=== PATIENT | female | born 1955 | race Caucasian/White ===

== ENCOUNTER 2022-02-15 14:02 | Outpatient (CLI) | payer MEDICARE, BC, SELFPAY ==
[2022-02-15 23:02] LABS: SARS PCR* Negative SARS-CoV-2 (Negative)
== END 2022-02-15 14:03 | disposition home or self-care (01) ==
LOC: FBOREF 14:03
PROVIDERS: PCP Family Medicine; Visit Provider Family Medicine
DX: Z20.822 Contact with and (suspected) exposure to COVID-19 (principal)
CPT/HCPCS: 87635

== ENCOUNTER 2022-02-18 14:05 | Emergency (ER) | payer MEDICARE, BC, SELFPAY ==
[2022-02-18 14:10] VITALS: BP 126/53; PULSE 94; RESP 20; TEMP 36.6; O2SAT 97; BMI 19.4
[2022-02-18 14:30] VITALS: BP 135/76; PULSE 79; RESP 12; O2SAT 100
--- OUTSIDE RECORDS SUMMARY | 2022-02-18 14:48 | XMS_ITS | Clinical Summary ---
:1955 Author Organization [employer] [place] [address] Care Team Providers Name Role Phone Theresa Vázquez PhD, Unavailable [phone] Abhinav Miranda MD Unavailable [facility], [facility] Unavailable Rambo Cordova MD Unavailable Abhinav Miranda MD Unavailable Dalton Esqueda MD Primary Care Provider [phone] Allergies Active Allergy Reactions Severity Noted Date Comments Amoxicillin-Pot Clavulanate GI Upset 06/09/2006 amox ok Diltiazem Hcl Edema 05/25/2017 Duloxetine Diaphoresis, Mental 08/25/2016 Status Change, Dizziness Venlafaxine Analogues Diarrhea 12/25/2010 Erythromycin GI Upset 06/01/2006 Fentanyl Anaphylaxis, High 07/24/2018 Bradycardia, Respiratory Arrest Fluconazole Vomiting 10/15/2020 Severe - every 2 hours Gabapentin Confusion 04/13/2019 Hydrochlorothiazide Lupus 06/10/2016 Erythematosus, Rash Hydralazine Lupus High 03/06/2017 Erythematosus, Anaphylaxis Infliximab Rash High 09/28/2019 Also had some l ip swelling and fa ce swelling Labetalol *Unknown 11/14/2021 pt voiced denis rn that she has sams d adverse reactio ns previously Hydroxychloroquine Anxiety 08/23/2011 Eimjuuw-Jeq-Qwq Reductase Myalgia 04/01/2015 Inhibitors Sulfasalazine Rash 05/17/2019 Tetracycline Vomiting, GI Upset 07/11/2006 Medications Medication Sig Dispensed Refills Start End Date Status Date aspirin enteric Take 1 tablet by 0 Active coated 81 mg tablet mouth every 24 2 hours. pregabalin (LYRICA) Take 100 mg by 0 Active 100 mg capsule mouth 2 times 1 daily. levothyroxine TAKE 1 TABLET BY 90 Tablet 1 Active (SYNTHROID) 25 mcg MOUTH DAILY 2 tabletIndications: BEFORE BREAKFAST Hypothyroidism (acquired) ezetimibe (ZETIA) Take 1 Tablet 90 Tablet 3 Active 10 mg (10 mg) by mouth 2 tabletIndications: once daily. Hyperlipidemia, unspecified hyperlipidemia type meloxicam 15 mg TAKE 1 TABLET(15 90 Tablet 0 Active tabletIndications: MG) BY MOUTH 2 Sjogren's syndrome, EVERY DAY with unspecified organ involvement (HC) multivitamin (MVI) Take 1 Tablet by 0 Active tablet mouth once 2 daily. pilocarpine Take 1 Tablet (5 270 Tablet 0 Active (SALAGEN) 5 mg mg) by mouth 3 2 tabletIndications: times daily. Sjogren's syndrome, with unspecified organ involvement (HC) predniSONE Take 10 mg by 0 Activ e (DELTASONE) 10 mg mouth once daily 2 tablet with a meal. lisinopriL Take 2 Tablets 30 Tablet 0 Acti ve (PRINIVIL; ZESTRIL) (40 mg) by mouth 2 20 mg once daily. tabletIndications: Essential hypertension with goal blood pressure less than 140/90 alirocumab Inject 75 mg 6 mL 1 Active (Praluent Pen) 75 subcutaneous 2 mg/mL every 2 weeks. pnijIndications: Hyperlipidemia, unspecified hyperlipidemia type medication order Seeking Health 0 Active composerIndications MVI one daily, 2 : Sjogren's Mg Oxide 400 mg syndrome, with three times a unspecified organ day, HCL 2 per involvement (HC), meal, Super-C Lupus (HC), complex daily, Connective tissue Liquid IV one disease (HC) daily, [employer] digestive enzymes one with meals, Quercitin 500 mg twice a day medication order naltrexone 4.5 100 Capsule 0 Active composerIndications mg caps, one 2 : Sjogren's twice a day as syndrome, with directed unspecified organ involvement (HC) medication order naltrexone 2.25 100 Capsule 0 Active composerIndications mg cap, one cap 2 : Other chronic daily in pain addition to the 4.5 mg cap, increasing as tolerated to two caps daily omeprazole TAKE ONE CAPSULE 90 Capsule 0 A ctive (PRILOSEC) 20 mg BY MOUTH BEFORE 2 Delayed-Release A MEAL. capsuleIndications: PUD (peptic ulcer disease) omeprazole TAKE 1 CAPSULE 90 Capsule 1 02/12/20 Dis continued (PRILOSEC) 20 mg BY MOUTH BEFORE 2 22 Delayed-Release A MEAL capsuleIndications: PUD (peptic ulcer disease) fluconazole Take 1 Tablet 14 Tablet 0 01/26/20 Expi red (DIFLUCAN) 200 mg (200 mg) by 2 22 tabletIndications: mouth once daily Fungal rash of for 14 days. torso Active Problems Problem Noted Date Dizziness 11/15/2021 Elevated troponin 11/15/2021 Brain aneurysm 11/15/2021 Protein-calorie malnutrition 06/25/2021 Tubular adenoma 10/02/2020 Overview: Repeat colonoscopy in 5 years Bilateral asymmetric sensorineural hearing loss 2020 Other specified postprocedural states 06/22/2019 Medical marijuana use 07/24/2018 Overview: using oils-both medical marijuana and CB D Adverse effect of narcotic 07/24/2018 Overview: see hospitalization 02/2017 Fentanyl Age-related osteoporosis without current pathological fracture 03/28/2018 Obstructive sleep apnea 03/23/2018 Hypothyroidism 06/30/2017 Stenosis of left carotid artery 03/01/[address] [facility] 12/20/2016 Chronic SI joint pain 12/20/2016 Tinea corporis 11/01/2016 Onychomycosis of toenail 11/01/2016 Sjogren's syndrome 10/04/2016 Brain aneurysm 08/28/2016 Frequent headaches 08/28/2016 Deafness in left ear 11/20/2015 Left-sided tinnitus 11/20/2015 Subacute cutaneous lupus erythematosus 03/31/2015 Fibromyalgia 03/31/2015 Midline low back pain with sciatica 03/31/2015 Undifferentiated connective tissue disease 03/09/2015 Generalized anxiety disorder 06/20/2014 Hypertension 08/23/2011 Carotid stenosis, right 08/17/2011 Overview: 08/26/11: Right carotid endarterectomy JUJU positive 07/21/2011 Overview: followed by rheumatology, plaquenil Adjustment disorder with depressed mood 04/09/2007 Other and unspecified hyperlipidemia 07/11/2006 Overview: does not tolerate statins: referral to c ardiology Tobacco use disorder 07/11/2006 Hypertensive urgency Resolved Problems Problem Noted Date Resolved Date Hypothyroid 03/01/2017 07/03/2017 Hypertension 09/08/2016 07/03/2017 Sensorineural hearing loss of right ear 11/20/2015 07/02/2020 Lupus 03/31/2015 04/01/2015 Anxiety state, unspecified 09/27/2013 07/03/2017 Numbness and tingling 07/28/2011 03/26/2014 Sensorineural hearing loss, unspecified 03/24/2007 11/20/2015 Depressive disorder, not elsewhere classified 07/11/2006 08/29/2013 Disorders of bursae and tendons in shoulder region, 07/12/19 07 03/26/2014 unspecified Symptomatic menopausal or female climacteric states 07/12/19 07 03/26/2014 Post-op pain 04/15/2017 Encounters Date Type Specialty Care Team Description 02/16/2022 Telemedicine Carlo Ayala Pain MD 02/16/2022 Travel 02/14/2022 Telephone Reside, Sarina Pitts s AuD 02/09/2022 Refill Mauricio Muñoz Refredd Duckworth MD (Omeprazole) 02/03/2022 Telemedicine Theresa Vázquez, Telehe alth; Trmt Plan PhD, LP 02/03/2022 Travel 01/26/[address] Medical Nutrition Therapy; Telehe alth 01/26/2022 Travel 01/21/2022 Hospital Encounter Dalton Esqueda MD Helms, Colleen G, PT Discharge Summary - Vijay Glez, PT - 01/21/2022 1:00 PM CDT [facility] Physical Therapy Outpatient Progress Note Patient Name: Nicolle brush Date of Service: 01/21/2022 Start of Service: 10/07/21 Visit Count: Visit Count: 11 PT MEDICAL/TREATMENT DIAGNOS IS Lumbar radiculopathy Decreased strength, enduranc e, and mobility ICD-10 M54.16 R53.1 Referring MD/Provider: Dalton Esqueda MD Insurance: Medicare DISCHARGE NOTE Start of Service: 10/07/21 End date of service: 2 Therapy Completed: Yes Final Outcome Tool: Tool Com plete: Final outcome tool completed Discharge Education: Patient education was given regarding home exercise program progression, maintenance of current status, and when to follow up with primary care provider. Therapist Assessment Patient reports that low nadege k pain is constant but has decreased somewhat. She has intermittent left foot and leg numbness that will vary depending upon her activity level. She continues to have therapy at [facility] to addres s her radiculopathy. She feels at this time she is ready to discharge from aquatic therapy here and continue with community-based aquatic activities for home programming. Patient has improved her mob ility and her strength with less hand and arm assistance with transfers but still relates an increased difficulty with descending into sitting position from standing with inc reased use of upper extremit y assist. Her 5 times sit to stand has improved to 13 seconds, initially was at 34 seconds. Tolliver balance test shows improvement from initial session at 44/56 to 54/56 today w hich indicates patient remai ns a potential for fall risk but less since her first session. The patient continues to express challenges with standing and walking which varies depending upon her prior activity level and her current pain level. She has progressed with her goals that were established with her assistance but has not fully met these at this time. She feels that she is appropriate to continue working on these goals with community-based aquatic activities. SUBJECTIVE SUBJECTIVE Patient Symptoms : Same Change in Functional Status: No Comments : Continues to have intermittent left foot and leg numbness with prolong standing and walking. It occurred this morning while shopping and is still present during therapy. SHe feesl she is read y for community based aquati c activities for home program [facility] Acute Pain Intensity (0-10): 3 Location: Rib;Back;Left;Lowe r;Leg Quality: Ache;Pain;Numbness Compliance with home exercis e program: Yes OBJECTIVE OUTCOME MEASURES (last 48 ho urs) Outcome Measures Row Name 01/21/22 1319 PT FOTO GROUP PT Initial FOTO FS 43 PT Predicted FOTO FS Change 12 PT Predicted FOTO FS Goal 5 5 PT Current FOTO FS 50 FOTO DOCUMENTATION 1 FOTO S core INTERVENTION Today's Interventions Aquatic therapy: Patient ind ependent in and out of pool on steps, therapist on deck to direct exercises and cues for exercise performance with isometric abdominal and hip region. ?? Standing exercises: Standing in the middle of the pool with arms moving as needed to assist with upright stability but did not hold onto railing. HS curl 20 reps bilaterally alternating sides Hip abduction SLR 20 reps bi laterally alternating sides ?? Step to bottom step with opp osite UE flexion x 20 reps without handhold assistance ?? UE exercises with hand-held blue paddles: level 2, x 20 reps each motion. In the middle of the pool. Shoulder horizontal abd/add Shoulder Flex/ext Shoulder abd/add ? Side step with hand-held pad dles level 2, 5 laps without loss of balance ?? Step ups to bottom step x 10 bilateral without hand hold, with upper extremity swing ? decorating equipment setter the middle of pool with wide base of support with shoulder push downs with 1 small bar garay, 20 repetitions ?? Walking with jets on x 2 min utes. Having increased leg numbness so patient asked to stop. ? Stretches Calf stretch at wall, 2 x 30 seconds each side Back extension stretch with hands on railing for balance?? Mid back stretch attempted w hile holding onto railing and stepping back however noted left calf cramp Home Exercise Program: hip a bduction SLR standing. Heel cord stretch, seated hamstring stretch, sit to stand, heel raise, toe raise; 11/10-offered alteration of standing exercises including hip flexion m arch, heel and toe raises to be done one day, alternating days to try hip abduction, hip extension SLR and knee flexion/HS curl GOALS Patient goal: to stand and walk for 30-45 minutes at a time to allow me to move safely for vacation in November Goal Status Comments: Alden mora notes her ability to stand and walk are inconsistent due to intermittent leg numbness and continued back pain. Goal not met. Patient will demonstrate: in dependence with progressive HEP in order to: self manage symptoms in (weeks): 8 weeks Goal Status: Met Goal Status Comments: Approp riate to continue with home exercise program alterations Patient will demonstrate: im proved LE strength with hip extension and abduction 4/5 or better in order to: provide hip and trunk stability to assist with standing in one position to wash dishes or talk with others in community up to 20-30 minutes in (weeks): 6 weeks Goal Status: Met Goal Status Comments: Note 5 times sit to stand test has improved since last week's test At 13.28 seconds today compared to 19 seconds last week Patient will demonstrate: im proved balance score with Tolliver balance test from 44/56 to 50/56 or better in order to: decrease falls and injury risk in (weeks): 8 weeks Goal Status: Met Goal Status Comments: Met go al with Tolliver balance test 54/56 improved by 10 points since initial evaluation. PLAN Plan for next session: Disch arge at this session Frequency (number of times p er week): 2 Duration (entire episode of care in weeks): 24 Planned Interventions: Thera peutic exercise (25996);Therapeutic activity (75141);Neuromuscular re-education (58953);Self-care (91297);PT Aquatic (66277);Hot/Cold pack (17590) 01/21/2022 Travel 01/14/2022 Orders Only Lab, [facility] 01/14/2022 Telephone Rosa Elena Cassidy PT Late C greg Appointment 01/14/2022 Travel 01/13/2022 Telemedicine Theresa Vázquez Telehe alth PhD, LP 01/13/2022 Travel 01/12/2022 Hospital Encounter Gera Esqueda MD Oswald, Rebecca L, PT 01/11/2022 Telemedicine Carlo Ayala MD Fati gue; Pain 01/11/2022 Travel 01/07/2022 Hospital Encounter Gera Esqueda MD Oswald, Rebecca L, PT 01/07/2022 Travel 01/05/2022 Hospital Encounter Gera Esqueda MD Oswald, Rebecca L, PT 01/05/2022 Travel 12/29/[address] Medical Nutrition Therapy; Telehealth 12/29/2021 Travel 12/15/2021 Hospital Encounter Gera Esqueda MD Helms, Colleen G, PT 12/15/2021 Travel 12/08/2021 Orders Only Lab, [facility] 12/08/2021 Travel 12/07/2021 Telemedicine Carlo Ayala MD 12/07/2021 Travel 12/03/2021 Telephone Yu Bradley, MORRIS Results 12/02/2021 Telemedicine Theresa Vázquez Telehe alth PhD, LP 12/02/2021 Travel 12/01/2021 Orders Only Yu Bradley, BEVERAGE SPECIALIST <No scan s attached> 11/24/[address] Medical Nutrition Therapy; Telehealth 11/24/2021 Travel from Last 3 Months Immunizations Name Administration Dates Next Due Influenza A (H1N1), Inactivated (Age 1103/17/2009 >=3 Years) Influenza, IIV3 (Age >=3 years) 03/21/2013, 03/13/2012, 07/2010, 04/14/2010, 02/06/2009 Influenza, IIV4 01/17/2017, 03/03/2016, 01/15/2015, 03/26/2014 Pneumococcal Poly,23-Valent 04/06/2002 (Pneumovax) Td (Age >=7 Years) 04/06/2002 Tdap 08/23/2011 Family History Medical History Relation Name Comments Thyroid Disease Daughter 2 Diabetes Daughter 3 type 1 Arthritis Father rheumatoid arthr itis. Cancer-prostate Father Diabetes Father type 2 Other Maternal Aunt Lupus Hypertension Mother Osteoporosis Mother Stroke Mother Cancer-breast Paternal Grandmother Osteoporosis Paternal Grandmother Cancer-breast Sister Relation Name Status Comments Brother Alive Daughter 1 Daughter 2 Daughter 3 Father Grandchild Alive granddaughter Maternal Aunt Maternal Grandfather Maternal Grandmother Mother Paternal Grandfather Paternal Grandmother Sister Alive Social History Tobacco Use Types Packs/Day Years Used Date Current Every Day Smoker Cigarettes 0.25 30 04/1986 - 02/11/2020 Smokeless Tobacco: Never Used Tobacco Cessation: Counseling Given: Yes Alcohol Use Standard Drinks/Week Comments No 0 (1 standard drink = 0.6 oz pure alcoho l) quit for 20 years Alcohol Habits Answer Date Recorded How often do you have a drink containing alcohol? Not asked How many drinks containing alcohol do you have on a Not aske d typical day when you are drinking? How often do you have six or more drinks on one Not asked occasion? Comment: quit for 20 years 09/08/2016 Sex Assigned at Date Recorded Not on file COVID-19 Exposure Response Date Recorded In the last 10 days, have you been in contact with No / Unsu re 02/16/2022 2:19 PM CDT someone who was confirmed or suspected to have Coronavirus/COVID-19? Obstetrics History Para Term AB IAB SAB Ectopic Multiple Living Live Births 1 1 1 Date Outcome GA Total Labor/2nd/3rd Weight Sex Delivery Anes PTL Brigitte A 1 A5 Name Clin Labor Para Last Filed Vital Signs Vital Sign Reading Time Taken Comments Blood Pressure 179/77 11/15/2021 7:45 AM CDT Pulse 58 11/15/2021 7:45 AM CDT Temperature 37 ??C (98.6 ??F) 11/15/2021 6:13 AM CDT Respiratory Rate 18 11/15/2021 6:13 AM CDT Oxygen Saturation 96% 11/15/2021 7:45 AM CDT Inhaled Oxygen Concentration - - Weight 56.5 kg (124 lb 9.6 oz) 11/14/2021 10:16 PM CDT Height 165.1 cm (5' 5) 11/14/2021 4:20 PM CDT Body Mass Index 20.73 11/14/2021 4:20 PM CDT Plan of Treatment Upcoming Encounters Date Type Specialty Care Team Description 02/25/2022 Telemedicine Theresa Vázquez, PhD, LP [address] [facility] [place], [place] [phone] (Wo rk) 03/02/[address] [place] [address] [place] [phone] (Wo rk) 03/10/2022 Appointment 03/24/2022 Telemedicine Carlo Ayala MD [address] [place], [place] [phone] (Wo rk) 04/08/[address] [place] [address] [place] [phone] (Wo rk) 04/12/2022 Telemedicine Carlo Ayala MD [address] [place], [place] [phone] (Wo rk) Health Maintenance Due Date Last Done Comments COVID-19 vaccine series (#1) 1955 Pneumococcal series for age 65+ (2 04/06/2003 04/06/2002 - PCV) Zoster (shingles) series for age 1103/17/2004 50+ (1 of 2) Medicare Wellness for age 65+ 2019 Mammogram for age 45-75 03/07/2020 03/07/2019, 02/24/2018, 04/12/2016, Additional history exists Depression screening for age 12+ 01/10/2021 01/11/2020, , 01/08/2020, Additional history exists Tetanus booster 08/22/2021 08/23/2011, 04/06/2002 Influenza for age 65+ 12/24/2021 01/17/2017, 03/03/2016, 01/15/2015, Additional history exists BMI (ht and wt on same day) for 06/10/2022 06/10/2021, 04/25, age 18+ 04/28/2021, Additional history exists Colonoscopy through age 75 10/02/2025 10/02/2020, 2, 04/05/2012, Additional history exists Lipids for age 45-75 01/14/2027 01/14/2022, 06/15/2021, 02/22/2020, Additional history exists Tdap Completed 08/23/2011 DEXA/DXA scan for age 65+ Completed 02/22/2020, 03/20/2018 , 04/07/2007 Hepatitis C screening for age Completed 04/28/2021, 2014 18-79 Medical Devices Implanted Type Area Tours Hostess Device Shelf Model / Identifier Expiration Serial / Date Lot Michael 7mm10 Loops - [id number] Right: [employer] [id number] / Implanted: Qty: 4 on 04/12/[address] [facility] Shoulder / Patch Vasc 0.8x8cm Biological Peripatch - [id number] Right: [employer]ait[employer] 08/25/2013 [id number]# / Implanted: Qty: 1 on 08/26/2011 by Brain Menendez MD at [facility] Carotid [employer] / Artery [id number] Graft Vasc 0.3x3in Hemashield Stra Fabric Knitted Dbl - [id number] Left: [employer] 06/22/2021 [id number] / Implanted: Qty: 1 on 03/01/2017 by Brain Quiroga MD at [facility] Carotid / Artery [id number] Procedures Procedure Name Priority Date/Time Associated Diagnosis Comme nts LIPID PANEL W REFLEX Routine 01/14/2022 7:58 AM Pure R esults for this MEASURED LDL CDT hypercholesterol emia procedure are in Dyslipidemia the results Statin intolerance section. OSMOLALITY,URINE Routine 12/08/2021 12:36 Dehydration Results for this PM CDT procedure are i n the results section. CBC WITH AUTO Routine 12/08/2021 12:28 Anemia, unspecified Res ults for this DIFFERENTIAL PM CDT type procedure are i n the results section. BASIC METABOLIC PANEL Routine 12/08/2021 12:28 Dehydration Re sults for this PM CDT procedure are i n the results section. VITAMIN B12 Routine 12/08/2021 12:28 Anemia, unspecified Resu lts for this PM CDT type procedure are i n the results section. FERRITIN Routine 12/08/2021 12:28 Anemia, unspecified Resu lts for this PM CDT type procedure are i n the results section. IRON PLUS IRON Routine 12/08/2021 12:28 Anemia, unspecified Re sults for this BINDING CAP PM CDT type procedure are i n the results section. CBC WITH AUTO Routine 12/08/2021 12:28 Anemia, unspecified Res ults for this DIFFERENTIAL PM CDT type procedure are i n the results section. OSMOLALITY Routine 12/08/2021 12:28 Dehydration Results for this PM CDT procedure are i n the results section. from Last 3 Months Results LIPID PANEL W REFLEX MEASURED LDL (01/14/2022 7:58 AM CDT) [facility] health gist Method Time Signature CHOLESTEROL,TOTAL 159 100 - 199 01/14/2022 [place] mg/dL 9:36 AM [facility] TRIGLYCERIDES 130 <150 01/14/2022 [place] mg/dL 9:36 AM [facility] HDL CHOLESTEROL 75 >40 mg/dL 01/14[facility]20[facility] 9:36 AM [facility] NON-HDL 84 <145 01/14/2022 [facility] CHOLESTEROL mg/dl 9:36 AM [facility] CHOL/HDL RATIO 2.12 <4.50 01/14/2022 [facility] 9:36 AM [facility] LDL CHOLESTEROL 58 <=130 01/14/2022 [place] mg/dL 9:36 AM [facility] VLDL CHOLESTEROL 26 <=30 01/14/2022 [place] mg/dL 9:36 AM [facility] PROVIDER ORDERED FASTING 01/14/2022 [facility] STATUS 9:36 AM [facility] Specimen Anatomical Collection Method / Collection Time Recei bernarda Time (Source) Location / Volume Laterality Blood BLOOD SPECIMEN / Venipuncture / 01/14/2022 7:58 2021 8:18 Unknown Unknown AM CDT AM CDT Yu Bradley BEVERAGE SPECIALIST CHEMISTRY Performing Organization Address City/State/ZIP Code Phon e Number [facility] [address] [place] [address] OSMOLALITY,URINE (12/08/2021 12:36 PM CDT) P athologist Signature OSMOLALITY,URI 354 50 - 1,400 12/08/2021 [place] mOsmol/kg 9:59 PM CDT LABORATORY[facility] Specimen Anatomical Collection Method Collection Time Receive d Time (Source) Location / / Volume Laterality Urine URINE SPECIMEN / Non-Blood / 12/08/2021 12:36 022 Unknown Unknown PM CDT 12:36 PM CDT Carlo Ayala MD URINE Performing Organization Address City/State/ZIP Code Phon e Number [facility] [address] [place] [address] LABORATORY-CENTRAL 1999 LABORATORY (ABNORMAL) CBC WITH AUTO DIFFERENTIAL (12/08/2021 12:28 PM CDT) [facility] Method Time Signature WHITE BLOOD 4.9 4.5 - 12/08/2021 [place] COUNT 11.0 12:51 PM CDT [facility] thou/cu LABORATORY mm RED BLOOD COUNT 2.58 (L) 4.00 - 12/08/2021 [place] 5.20 12:51 PM CDT [facility] mil/cu mm LABORATORY HEMOGLOBIN 9.6 (L) 12.0 - 12/08/2021 [place] 16.0 g/dL 12:51 PM T [facility] HEMATOCRIT 29.0 (L) 33.0 - 12/08/2021 [place] 51.0 % 12:51 PM CDT [facility] MCV 112 (H) 80 - 100 12/08/2021 [place] fL 12:51 PM CDT [facility] MCH 37.2 (H) 26.0 - 12/08/2021 [place] 34.0 pg 12:51 PM CDT [facility] MCHC 33.1 32.0 - 12/08/2021 [place] 36.0 g/dL 12:51 PM CDT [facility] RDW 16.9 (H) 11.5 - 12/08/2021 [place] 15.5 % 12:51 PM CDT [facility] PLATELET COUNT 237 140 - 440 12/08/2021 [place] thou/cu 12:51 PM CDT [facility] mm LABORATORY MPV 10.7 6.5 - 12/08/2021 [place] 11.0 fL 12:51 PM CDT [facility] % NEUT 84.4 % 12/08/2021 [place] 12:51 PM CDT [facility] % LYMPH 7.6 % 12/08/2021 [place] 12:51 PM CDT [facility] % MONO 7.2 % 12/08/2021 [place] 12:51 PM CDT [facility] % EOS 0.4 % 12/08/2021 [facility]51 PM [facility] % BASO 0.4 % 12/08/2021 [place] 12:51 PM T [facility] LABORATORY ABSOLUTE 4.1 1.7 - 7.0 12/08/2021 [place] NEUTROPHILS thou/cu 12:51 PM T [facility] mm LABORATORY ABSOLUTE 0.4 (L) 0.9 - 2.9 12/08/2021 [place] LYMPHOCYTES thou/cu 12:51 PM T [facility] mm LABORATORY ABSOLUTE 0.4 <0.9 12/08/2021 [place] MONOCYTES thou/cu 12:51 PM T [facility] mm LABORATORY ABSOLUTE 0.0 <0.5 12/08/2021 [place] EOSINOPHILS thou/cu 12:51 PM [facility] mm LABORATORY ABSOLUTE 0.0 <0.3 12/08/2021 [place] BASOPHILS thou/cu 12:51 PM T [facility] mm LABORATORY Specimen Anatomical Collection Method / Collection Time Recei bernarda Time (Source) Location / Volume Laterality Blood BLOOD SPECIMEN / Venipuncture / 12/08/2021 12:28 12/08 Unknown Unknown PM CDT 12:31 PM CDT Narrative [facility] - 12:51 PM CDT This procedure was originally ordered at ??[facility] \T\ [facility]. Carlo Ayala MD HEMATOLOGY Performing Organization Address City/State/ZIP Code Phon e Number [facility] [address] [place] [address] (ABNORMAL) IRON PLUS IRON BINDING CAP (12/08/2021 12:28 PM CDT) P athologist Signature IRON 45 25 - 156 12/09/2021 [facility] ug/dL 3:45 AM CDT LABORATORY-[facility] UIBC 255 12/09/2021 [facility] (UNSATURATED) 3:45 AM CDT [facility] IRON BINDING 300 245 - 400 12/09/2021 [facility] CAPACITY ug/dL 3:45 AM CDT LAB[facility]ATORY[facility] IRON,% 15 (L) 20 - 55 % 12/09/2021 [facility] SATURATION 3:45 AM CDT LAB[facility]ATORY[facility] Specimen Anatomical Collection Method / Collection Time Recei bernarda Time (Source) Location / Volume Laterality Blood BLOOD SPECIMEN / Venipuncture / 12/08/2021 12:28 12/08 Unknown Unknown PM CDT 12:31 PM CDT Carlo Ayala MD CHEMISTRY Performing Organization Address City/[facility]/ZIP Code Phon e Number [facility] [address] [place] [id number] LABORATORY-CENTRAL 2000 LABORATORY OSMOLALITY (12/08/2021 12:28 PM CDT) athologist Signature OSMOLALITY 289 275 - 300 12/08/2021 [facility] mOsmol/kg 9:58 PM CDT LABORATORY-CENT RAL LABORATORY Specimen Anatomical Collection Method / Collection Time Recei bernarda Time (Source) Location / Volume Laterality Blood BLOOD SPECIMEN / Venipuncture / 12/08/2021 12:28 12/08 Unknown Unknown PM CDT 12:31 PM CDT Carlo Ayala MD CHEMISTRY Performing Organization Address City/[facility]/ZIP Code Phon e Number [facility] [address] [place] [address] LABORATORY-CENTRAL 2000 LABORATORY FERRITIN (12/08/2021 12:28 PM CDT) athologist Signature FERRITIN 157.3 15.0 - 12/09/2021 [facility] 205.0 ng/mL 4:00 AM CDT LABORATORY-CENTR AL LABORATORY Specimen Anatomical Collection Method / Collection Time Recei bernarda Time (Source) Location / Volume Laterality Blood BLOOD SPECIMEN / Venipuncture / 12/08/2021 12:28 12/08 Unknown Unknown PM CDT 12:31 PM CDT Carlo Ayala MD CHEMISTRY Performing Organization Address City/State/ZIP Code Phon e Number [facility] [address] [place] [address] LABORATORY-CENTRAL 2000 LABORATORY (ABNORMAL) VITAMIN B12 (12/08/2021 12:28 PM CDT) athologist Signature VITAMIN B12 1,293 (H) 180 - 914 12/09/2021 [facility] pg/mL 12:03 PM CDT LABORATORY-[facility] Specimen Anatomical Collection Method / Collection Time Recei bernarda Time (Source) Location / Volume Laterality Blood BLOOD SPECIMEN / Venipuncture / 12/08/2021 12:28 12/08 Unknown Unknown PM CDT 12:31 PM CDT Carlo Ayala MD CHEMISTRY Performing Organization Address City/State/ZIP Code Phon e Number [facility] [address] [place] [address] LABORATORY-CENTRAL 2000 LABORATORY (ABNORMAL) BASIC METABOLIC PANEL (12/08/2021 12:28 PM CDT) P athologist Signature SODIUM 140 135 - 145 12/08/2021 [place] mmol/L 1:05 PM [facility] POTASSIUM 4.4 3.5 - 5.0 12/08/2021 [place] mmol/L 1:05 PM [facility] CHLORIDE 104 98 - 110 12/08/2021 [place] mmol/L 1:05 PM [facility] CO2,TOTAL 26 21 - 31 12/08/2021 [place] mmol/L 1:05 PM [facility] ANION GAP 10 5 - 18 12/08/2021 [place] 1:05 PM [facility] GLUCOSE 93 65 - 100 12/08/2021 [place] mg/dL 1:05 PM [facility] CALCIUM 9.8 8.5 - 10.5 12/08/2021 [place] mg/dL 1:05 PM [facility] BUN 15 8 - 25 12/08/2021 [place] mg/dL 1:05 PM [facility] CREATININE 0.88 0.57 - 12/08/2021 [place] 1.11 mg/dL 1:05 PM [facility] BUN/CREAT RATIO 17 10 - 20 12/08/2021 [place] 1:05 PM [facility] eGFR 72 (L) >90 12/08/2021 [place] mL/min/1.7 1:05 PM [facility] 3m2 LABORATORY Comment: As of 2021, eGFR is calcu lated by the CKD-EPI creatinine equation without race adjustment. eGFR can be inf luenced by muscle mass, exercise, and diet. The reported eGFR is an estimation only and is only applicable if the renal function is stable. Specimen Anatomical Collection Method / Collection Time Recei bernarda Time (Source) Location / Volume Laterality Blood BLOOD SPECIMEN / Venipuncture / 12/08/2021 12:28 12/08 Unknown Unknown PM CDT 12:31 PM CDT Carlo Ayala MD CHEMISTRY Performing Organization Address City/[facility]/ZIP Code Phon e Number [facility] [address] [place] [address] from Last 3 Months Insurance Payer Benefit Plan / Subscriber ID Effective Phone Address T ype Group Dates [employer] [id number] 2013-Prese [address] [place] [address] WC WORKERS [place] [employer] [id number] 2020-Pres [address] [place] [address] WC WORKERS [facility] [id number] 2020-Pres [address] [place] [address] MEDICARE PART MEDICARE PART B [id number] 2019-Pres A TTN: CLAIMS B - HB USE HB ONLY ent [address] [place] [address] MEDICARE PART MEDICARE PART A [id number] 2019-Pres A TTN: CLAIMS A - HB USE HB ONLY ent [address] [place] [address] MEDICARE - PB MEDICARE PB [id number] 2019-Pres ATTN: CLAIMS USE ONLY ONLY ent [address] [employer] OF [id number] 2019-Pres [address] [place] [address] Nicolle Covington Personal/Family Self [address] (Home) [place] [address] Nicolle Covington [employer] Self [address]) [place] [address] Nicolle Covington Comp Self [address] (Home) [place] [address] Nicolle Covington Personal/Family Self [address] (Home) [place] [address] Advance Directives Latest Code Status on File Code Status Date Activated Date Inactivated Comments Full Code 11/14/2021 10:31 PM 11/15/2021 1:58 PM Code Status Discussion: Reviewed Preferences Full Code 05/13/2021 8:14 AM 05/14/2021 2:08 AM Code Status Discussion: Unable to Assess Preferences, Provid er to review later Full Code 10/02/2020 7:58 AM 10/02/2020 12:41 PM Code Status Discussion: Discussed Full Code 03/01/2017 12:04 PM 03/08/2017 3:44 PM Full Code 03/01/2017 5:42 AM 03/01/2017 11:49 AM Care Teams Radiologic Therapist Relationship Specialty Start Date End Date Dalton Esqueda MD PCP - General Family Practice 10/15/201999 [place] [address] Theresa Vázquez, PhD, Psychologist Psychology 06/23/11 Abhinav Miranda MD Dermatology Dermatology 08/07/15 [facility], [facility] 09/14/16 Rambo Cordova MD Rheumatology Rheumatology 04/07/17 [address] [facility] [address] [place] [address] Abhinav Miranda MD Dermatology 07/11/17
--- NOTE | 2022-02-18 15:08 | ED.GENADULT ---
HPI - General Adult General Chief complaint: Weakness Stated complaint: Extreme Fatigue Time Seen by Provider: 02/18/22 14:15 History of Present Illness HPI narrative: This 66-year-old female comes in reporting generalized weakness, productive cough, and generalized rash. She does see a commercial trailer truck driver and called with these matters and was instructed to come here for evaluation. She did see her commercial trailer truck driver 3 times in the past week and each time did receive a steroid dose. She does have lupus and Sjogren syndrome. She states that the rash was generalized and very pruritic. The intensity dissipated some last night. She states that she measured temperatures around 99-100. She does report long-term night sweats. She arrives here with normal vital signs. Related Data Home Medications Medication Instructions Recorded Confirmed CBD Oil sublingual 11/17/21 02/15/22 acetaminophen 325 mg tablet 325 - 650 mg PO Q4-6H PRN 11/17/21 02/15/22 aspirin 81 mg chewable tablet 81 mg PO QDAY 11/17/21 02/15/22 (Aspirin Childrens) ezetimibe 10 mg tablet (Zetia) 10 mg PO QDAY 11/17/21 02/15/22 loratadine 10 mg tablet (Allergy 10 mg PO QDAY 11/17/21 02/15/22 Relief (loratadine)) magnesium oxide 400 mg (241.3 mg 400 mg PO QDAY 11/17/21 02/15/22 magnesium) tablet niacinamide 500 mg tablet (Niacin 500 mg PO QDAY 11/17/21 02/15/22 (niacinamide)) ondansetron HCl 4 mg tablet 4 - 8 mg PO Q6H PRN nausea and 11/17/21 02/15/22 vomiting pilocarpine HCl 5 mg tablet 5 mg PO TID 11/17/21 02/15/22 prednisone 10 mg tablet 10 mg PO QDAY 11/17/21 02/15/22 pregabalin 100 mg capsule 100 mg PO BID 11/17/21 02/15/22 Electrolytes PO 12/09/21 02/15/22 hydrocortisone 2.5 % topical cream tube topical 12/09/21 02/15/22 omeprazole 20 mg capsule,delayed 20 mg PO QDAY 12/09/21 02/15/22 release naltrexone 4.5 mg PO QDAY 12/10/21 02/15/22 alirocumab 75 mg/mL subcutaneous 75 mg subcut 02/15/22 02/15/22 pen injector (Praluent Pen) betamethasone dipropionate 0.05 % ml topical 02/15/22 02/15/22 lotion ketoconazole 2 % shampoo ml topical 02/15/22 02/15/22 mycophenolate mofetil 500 mg tablet 500 mg PO BID 02/15/22 02/15/22 triamcinolone acetonide 0.1 % applic topical 02/15/22 02/15/22 topical cream Previous Rx's Medication Instructions Recorded lisinopril 20 mg tablet 40 mg PO QDAY #90 tabs 11/18/21 levothyroxine 25 mcg tablet 25 mcg PO QDAY #90 tabs 01/06/22 meloxicam 15 mg tablet 15 mg PO QDAY #90 tabs 01/14/22 doxazosin 4 mg tablet 2 mg PO QDAY #30 tabs 01/28/22 levofloxacin 500 mg tablet 500 mg PO DAILY 10 days #10 tabs 02/18/22 metoclopramide HCl 10 mg tablet 10 mg PO Q6H PRN nausea and 02/18/22 (Reglan) vomiting #14 tabs Allergies Allergy/AdvReac Type Severity Reaction Status Date / Time atenolol Allergy Severe Verified 02/18/22 14:24 belimumab Allergy Severe Rash Verified 02/18/22 14:24 fentanyl Allergy Severe Cardiac Verified 02/18/22 14:24 Arrest infliximab [From Remicade] Allergy Severe Anaphylaxis Verified 02/18/22 14:24 alendronate sodium Allergy Mild stomach Verified 02/18/22 14:24 pain amitriptyline Allergy Mild Unknown Verified 02/18/22 14:24 buprenorphine Allergy Mild didn't help Verified 02/18/22 14:24 gabapentin Allergy Mild stomach Verified 02/18/22 14:24 issues amoxicillin Allergy Unknown Unknown Verified 02/18/22 14:24 diltiazem Allergy Unknown Unknown Verified 02/18/22 14:24 duloxetine Allergy Unknown Unknown Verified 02/18/22 14:24 erythromycin base Allergy Unknown Unknown Verified 02/18/22 14:24 hydralazine Allergy Unknown Unknown Verified 02/18/22 14:24 hydrochlorothiazide Allergy Unknown unknown Verified 02/18/22 14:24 hydroxychloroquine Allergy Unknown Unknown Verified 02/18/22 14:24 Ysaimma-GXI-YbA Reductase Allergy Unknown Unknown Verified 02/18/22 14:24 Inhibitor tetracycline Allergy Unknown Unknown Verified 02/18/22 14:24 venlafaxine Allergy Unknown Unknown Verified 02/18/22 14:24 plavix Allergy Intermediate Uncoded 02/15/22 13:55 diltiazem Allergy Mild Uncoded 02/15/22 13:55 wellbutrin Allergy Mild hazy Uncoded 02/15/22 13:55 HMG-CoA reductase inhibitor Allergy Unknown Uncoded 02/15/22 13:55 Review of Systems Status of ROS: Reports: 10 or more systems reviewed and unremarkable except as noted in History and below Narrative: Constitutional: No weight gain or loss. Eyes: No discharge. No vision changes. HENT: No congestion, no sore throat, no ear pain. Cardiovascular: No chest pain, no palpitations. Respiratory: No shortness of breath, no wheezes. She reports a productive cough. Gastrointestinal: No abdominal pain, no vomiting, no diarrhea. Genitourinary: No dysuria, no hematuria. Musculoskeletal: Normal range of motion. Skin: Generalized pruritic rash. Neurological: No dizziness, weakness, sensory change, speech change. Endo/Heme/Allergies: No bruising or bleeding. No polydipsia. Pysch: no suicidality, no anxiety, no insomnia. All other systems reviewed and are negative. [facility] Medical History (Updated 02/18/22 @ 16:56 by Tyson Neil MD) Adjustment disorder with depressed mood (04/09/07) Bilateral carotid artery stenosis Cerebral aneurysm (08/28/16) Deafness in left ear (11/20/15) Fibromyalgia (2012) Generalized anxiety disorder (06/20/14) History of basal cell carcinoma (BCC) History of colonic polyps History of lichen planus Hyperlipidemia Hypertension (08/23/11) Hypothyroidism (06/30/17) Obstructive sleep apnea syndrome (03/23/18) Osteoporosis Peripheral vascular disease Positive antinuclear antibody (07/21/11) Sjogren's syndrome (2012) Surgical History (Updated 11/17/21 @ 14:42 by Marylou Rodgers) History of carotid endarterectomy (2009) History of cataract extraction History of section (1975) History of hysterectomy (1994) History of intravascular stent placement (05/2017) History of repair of right rotator cuff (2006) History of sinus surgery Family History (Updated 11/17/21 @ 14:43 by Marylou Rodgers) Sister Breast cancer Diabetes Mother Stroke Heart disease Father Prostate cancer Diabetes Daughter Diabetes Family/Other Breast cancer Social History (Updated 11/17/21 @ 14:44 by Marylou Rodgers) Narrative: Medical marijuana use- onset 07/24/18 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 HEENT: Normocephalic, atraumatic. Neck: Normal range of motion. Nontender. Supple. Heart: Regular. No murmurs. Normal rate. Intact distal pulses. Lungs: Clear to auscultation. No chest discomfort. No wheezes, rhonchi, or rales. Abdomen: Normal bowel sounds. Nontender. No rebound tenderness. Genitalia: Deferred. Back: No midline tenderness. Normal range of motion. Extremities: Normal range of motion. No injury. Skin: Intact. Generalized pruritic maculopapular rash. There are some excoriations on her upper extremities. Neurologic: No altered sensation. No weakness. Alert and oriented. Psychiatric: No suicidality. No anxiety or depression. No insomnia. Nursing notes and vitals signs are reviewed. Const: Vital Signs, click to edit/add: Vital Signs - 24 hr 02/18/22 14:10 Temperature 97.8 F Pulse Rate [Pulse Oximeter] 94 Respiratory Rate 20 Blood Pressure [Ri ght Upper Arm] 126/53 L Pulse Oximetry 97 Oxygen Delivery Me thod Room Air Course Vital Signs Vital signs: Initial Vital Signs Temperature 97.8 F 02/18/22 14:10 Temperature Source Temporal Artery Scan 02/18/22 14:10 Pulse Rate 94 02/18/22 14:10 Pulse Rhythm 02/18/22 14:10 Respiratory Rate 20 02/18/22 14:10 Blood Pressure 126/53 L 02/18/22 14:10 Blood Pressure Mean 77 02/18/22 14:10 Blood Pressure Position Left Lateral 02/18/22 14:10 Pulse Oximetry 97 02/18/22 14:10 Oxygen Delivery Method 02/18/22 14:10 Vital Signs Temperature 97.8 F 02/18/22 14:10 Pulse Rate 94 02/18/22 14:10 Respiratory Rate 20 02/18/22 14:10 Blood Pressure 126/53 L 02/18/22 14:10 Pulse Oximetry 97 02/18/22 14:10 Oxygen Delivery Method 02/18/22 14:10 Temperature 97.8 F 02/18/22 14:10 Pulse Rate 94 02/18/22 14:10 Respiratory Rate 20 02/18/22 14:10 Blood Pressure 126/53 L 02/18/22 14:10 Pulse Oximetry 97 02/18/22 14:10 Oxygen Delivery Method 02/18/22 14:10 Medical Decision Making MDM Narrative Medical decision making narrative: This patient comes in reporting generalized malaise with generalized rash and productive cough. She does see a neurologist frequently and has lupus and Sjogren's syndrome that is being managed. Lab results today returned with an elevated C reactive protein. Her white count is in normal range. Chest x-ray shows evidence of a pneumonia in the right lower lobe. The patient has normal vital signs. She is okay to return home. Prescription for Levaquin and Zofran is provided. Lab Data Labs: Lab Results 02/18/22 02/18/22 02/18/22 Range/Units 15:17 15:36 15:36 WBC 6.13 (4.50-11.00) K/uL RBC 3.06 L (4.00-5.20) m/uL Hgb 10.5 L (12.0-16.0) gm/dL Hct 31.6 L (33.0-51.0) % MCV 103 H (80-100) fL MCH 34 (26-34) pg MCHC 33 (32-36) gm/dL RDW Coeff of Terrell 14.2 (11.5-15.5) % Plt Count 159 (140-440) K/uL Neut % (Auto) 85.3 H (42.0-72.0) % Lymph % (Auto) 7.2 L (20-44) % [place] % (Auto) 7.0 (0.0-11.0) % Eos % (Auto) 0.0 (0.0-7.0) % Baso % (Auto) 0.0 (0.0-3.0) % Neut # (Auto) 5.20 (1.7-7.0) K/uL Lymph # (Auto) 0.40 L (0.90-2.90) K/uL [place] # (Auto) 0.40 (0.00-0.90) K/UL Eos # (Auto) 0.00 (0.00-0.50) K/uL Baso # (Auto) 0.00 (0.00-0.30) K/uL Abs Immat Gran (auto) 0.03 (0.00-0.30) K/uL ESR (2-20) mm/hr Sodium 131 L (135-149) mmol/L Potassium 4.0 (3.6-5.1) mmol/L Chloride 99 (96-114) mmol/L Carbon Dioxide 25 (20-32) mmol/L BUN 19 (7-30) mg/dL Creatinine 1.1 (0.5-1.5) mg/dL Estimated Creat Clear 42.64 Estimated GFR 55 ml/min Glucose 98 (60-115) mg/dL Calcium 9.5 (8.4-10.6) mg/dL C-Reactive Protein 5.9 H (0.5-1.0) mg/dL SARS-CoV-2 (PCR) Negative SARS-CoV-2 (Negative) Influenza Type A (PCR) Negative PCR FLU A (Negative) Influenza Type B (PCR) Negative PCR FLU B (Negative) 02/18/22 Range/Units 15:36 WBC (4.50-11.00) K/uL RBC (4.00-5.20) m/uL Hgb (12.0-16.0) gm/dL Hct (33.0-51.0) % MCV (80-100) fL MCH (26-34) pg MCHC (32-36) gm/dL RDW Coeff of Terrell (11.5-15.5) % Plt Count (140-440) K/uL Neut % (Auto) (42.0-72.0) % Lymph % (Auto) (20-44) % [place] % (Auto) (0.0-11.0) % Eos % (Auto) (0.0-7.0) % Baso % (Auto) (0.0-3.0) % Neut # (Auto) (1.7-7.0) K/uL Lymph # (Auto) (0.90-2.90) K/uL [place] # (Auto) (0.00-0.90) K/UL Eos # (Auto) (0.00-0.50) K/uL Baso # (Auto) (0.00-0.30) K/uL Abs Immat Gran (auto) (0.00-0.30) K/uL ESR 67 H (2-20) mm/hr Sodium (135-149) mmol/L Potassium (3.6-5.1) mmol/L Chloride (96-114) mmol/L Carbon Dioxide (20-32) mmol/L BUN (7-30) mg/dL Creatinine (0.5-1.5) mg/dL Estimated Creat Clear Estimated GFR ml/min Glucose (60-115) mg/dL Calcium (8.4-10.6) mg/dL C-Reactive Protein (0.5-1.0) mg/dL SARS-CoV-2 (PCR) (Negative) Influenza Type A (PCR) (Negative) Influenza Type B (PCR) (Negative) Imaging Data Chest x-ray: Radiologist's impression: Right lower lobe opacity is suggestive of pneumonia. Discharge Plan Discharge Clinical Impression: Rash, Pneumonia Patient Disposition: Home, Self-Care Condition: Unchanged Additional Instructions: Take medication as prescribed. Follow up with MD or return if worsening. Prescriptions: New levofloxacin 500 mg tablet 500 mg PO DAILY 10 Days Qty: 10 0RF metoclopramide HCl [Reglan] 10 mg tablet 10 mg PO Q6H PRN (Reason: nausea and vomiting) Qty: 14 0RF No Action hydrocortisone 2.5 % cream topical omeprazole 20 mg capsule,delayed release(DR/EC) 20 mg PO QDAY Label Comments: TAKE ONE CAPSULE BY MOUTH BEFORE A MEAL. Electrolytes PO Praluent Pen 75 mg/mL pen injector 75 mg subcut Label Comments: INJECT 75MG SUBCUTANEOUSLY EVERY 2 WEEKS pregabalin 100 mg capsule 100 mg PO BID ondansetron HCl 4 mg tablet 4 - 8 mg PO Q6H PRN (Reason: nausea and vomiting) prednisone 10 mg tablet 10 mg PO QDAY loratadine [Allergy Relief (loratadine)] 10 mg tablet 10 mg PO QDAY magnesium oxide 400 mg (241.3 mg magnesium) tablet 400 mg PO QDAY niacinamide [Niacin (niacinamide)] 500 mg tablet 500 mg PO QDAY CBD Oil sublingual acetaminophen 325 mg tablet 325 - 650 mg PO Q4-6H PRN Rx Instructions: No more than 4000 mg a day aspirin [Aspirin Childrens] 81 mg tablet,chewable 81 mg PO QDAY ezetimibe [Zetia] 10 mg tablet 10 mg PO QDAY pilocarpine HCl 5 mg tablet 5 mg PO TID lisinopril 20 mg tablet 40 mg PO QDAY Qty: 90 3RF naltrexone 4.5 mg PO QDAY Label Comments: 4.5mg tab from compound pharmacy betamethasone dipropionate 0.05 % lotion topical Label Comments: APPLY 1-2X DAILY TO AFFECTED AREA OF THE SCALP FOR FOR 2 WEEKS THEN TAKE A BREAK FOR 2 WEEKS REPEAT NEEDED FOR FLARES ketoconazole 2 % shampoo topical Label Comments: USE ONCE DAILY TO AFFECTED AREA OF THE BODY AND SCALP LATHER AND LET SIT FOR FEW MINS BEFORE RINSING triamcinolone acetonide 0.1 % cream topical Label Comments: APPLY TWICE A DAY TO AFFECTED AREA OF CHEST, NECK AND ARMS. USE FOR 2 WEEKS ON THEN TAKE 2 WEEKS OFF NEEDED mycophenolate mofetil 500 mg tablet 500 mg PO BID Label Comments: TAKE ONE TABLET BY MOUTH TWICE A DAY levothyroxine 25 mcg tablet 25 mcg PO QDAY Qty: 90 1RF meloxicam 15 mg tablet 15 mg PO QDAY Qty: 90 3RF doxazosin 4 mg tablet 2 mg PO QDAY Qty: 30 2RF Follow Up/Referrals: Dalton Esqueda MD [Primary Care Provider] - Stand Alone Forms: [facility] Info Instructions
--- NOTE | 2022-02-18 15:12 | CRLHL7_ITS ---
For Patients: As a result of the Cures Act, medical imaging exams and procedure reports are released immediately into your electronic medical record. You may view this report before your referring provider. If you have questions, please contact your health care provider. INDICATION: Productive cough. TECHNIQUE: Chest 1 views. COMPARISON: None. FINDINGS: Lungs: Ovoid opacity in the right lower lobe. Pleura: No pleural effusion or pneumothorax. Heart and Mediastinum: The cardiomediastinal silhouette is normal. The vessels are unremarkable. Bones: Unremarkable. IMPRESSION: Right lower lobe opacity is suggestive of pneumonia. Dictated by Eugene Tolbert MD @ 02/18/2022 4:09:04 PM (Electronically Signed)
[2022-02-18 15:30] VITALS: BP 143/87; PULSE 77; RESP 14; O2SAT 99
[2022-02-18 15:45] LABS: Hematocrit 31.6 % (33.0-51.0); Hemoglobin* 10.5 gm/dL (12.0-16.0); Immature Granulocytes Abs Auto 0.03 K/uL (0.00-0.30); Lymphocytes Percent Auto 7.2 % (20-44); Mean Corpuscular HGB Conc 33 gm/dL (32-36); Mean Corpuscular Hemoglobin 34 pg (26-34); Mean Corpuscular Volume 103 fL (80-100); Neutrophils Percent Auto 85.3 % (42.0-72.0); Platelet Count* 159 K/uL (140-440); RDW Coefficient of Variation % 14.2 % (11.5-15.5); Red Blood Count 3.06 m/uL (4.00-5.20); White Blood Count* 6.13 K/uL (4.50-11.00)
[2022-02-18 16:03] LABS: Slide Review Reflex No
[2022-02-18 16:04] LABS: PCR FLU A Negative PCR FLU A (Negative); PCR FLU B Negative PCR FLU B (Negative)
[2022-02-18 16:06] LABS: Chloride* 99 mmol/L (96-114); Sodium* 131 mmol/L (135-149)
[2022-02-18 16:06] LABS: SARS PCR* Negative SARS-CoV-2 (Negative)
[2022-02-18 16:09] LABS: Creatinine* 1.1 mg/dL (0.5-1.5); Est. Creatinine Clearance* 42.64; Estimated Glomerular Filt Rate 55 ml/min
[2022-02-18 16:10] LABS: Blood Urea Nitrogen* 19 mg/dL (7-30); Calcium* 9.5 mg/dL (8.4-10.6); Carbon Dioxide* 25 mmol/L (20-32); Glucose* 98 mg/dL (60-115)
[2022-02-18 16:12] LABS: C Reactive Protein* 5.9 mg/dL (0.5-1.0)
[2022-02-18 16:25] VITALS: BP 129/64; PULSE 63; RESP 16; O2SAT 96
[2022-02-18 16:51] LABS: Erythrocyte SedimentationRate* 67 mm/hr (2-20)
[2022-02-18 16:51] LABS: Appearance Urine Slightly Cloudy (Clear); Bilirubin Urine 1+ (Negative); Blood Urine Negative (Negative); Color Urine Yellow (Yellow); Glucose Urine Negative (Negative); Ketones Urine 1+ (Negative); Leukocyte Esterase Urine Negative (Negative); Nitrite Urine Negative (Negative); Protein Urine 1+ (Negative); Urobilinogen Urine 0.2 (0.2-1.0); pH Urine 5.5 (5.0-8.5)
[2022-02-18] MEDS: levoFLOXacin 500 MG TABLET PO (17:01)
[2022-02-18 17:16] LABS: Bacteria Urine Moderate; RBC Urine 0-2 (0-2)
== END 2022-02-18 17:09 | disposition home or self-care (01) ==
PROVIDERS: Emergency Provider Emergency Medicine Emergency Medical Services; PCP Family Medicine
DX: J18.9 Pneumonia, unspecified organism (principal); R21 Rash and other nonspecific skin eruption
CPT/HCPCS: 36415; 71045; 80048; 81001; 85025; 85651; 86140; 87086; 87186; 87631; 99284; 99285; A9270

== ENCOUNTER 2022-03-09 11:47 | Outpatient (CLI) | payer MEDICARE, BC, SELFPAY ==
--- OUTSIDE RECORDS SUMMARY | 2022-03-09 11:50 | XMS_ITS | Clinical Summary ---
:1955 Author Organization [facility] [place] [address] Care Team Providers Name Role Phone Theresa Vázquez PhD, Unavailable [phone] Abhinav Miranda MD Unavailable [facility] Unavailable Rambo Cordova MD Unavailable Abhinav Miranda MD Unavailable Dalton Esqueda MD Primary Care Provider [phone] Allergies Active Allergy Reactions Severity Noted [...] adverse reactio ns previously Hydroxychloroquine Anxiety 08/23/2011 Vznlwbi-Dkj-Shx Reductase Myalgia 04/01/2015 Inhibitors Sulfasalazine Rash 05/17/2019 [...] A MEAL. capsuleIndications: PUD (peptic ulcer disease) magic mouthwash Swish and spit 500 mL 2 Active w/nystatin,benadryl 15-30 ml every 4 2 ,lidocaine,predniso hours as needed. lone & maaloxIndications: Stomatitis neomycin 1 tab qid for 14 56 Tablet 0 Act epi (MYCIFRADIN) 500 mg days 2 tabletIndications: Belching omeprazole TAKE 1 CAPSULE 90 Capsule 1 02/12/20 Dis continued (PRILOSEC) 20 mg BY MOUTH BEFORE 2 22 Delayed-Release A MEAL capsuleIndications: PUD (peptic ulcer disease) Active Problems Problem Noted Date Dizziness 11/15/2021 [...] carotid artery 03/01/2017 Controlled substance agreement with [facility] 12/20/2016 Chronic SI joint pain 12/20/2016 Tinea [...] Encounters Date Type Specialty Care Team Description 03/03/2022 Office Visit Leandra Castorena Ear Problem ( Ear MARK [facility]) 03/03/2022 Patient Outreach Romero Zacarias Palliative Ariel, MORRIS Care (Error/dis regard) 03/03/2022 Travel 03/02/2022 Office Visit Kristian Monge AuD Hearing Problem 03/02/[address] Medical Nutrition Therapy; Telehe alth 03/02/2022 Transcribe Orders Dalton Esqueda MD 03/02/2022 Travel 03/01/2022 Orders Only Staff, Other Clinical <No sc ans attached> 03/01/2022 Orders Only Staff, Other Clinical <No sc ans attached> 03/01/2022 Orders Only Staff, Other Clinical <No sc ans attached> 03/01/2022 Telephone Dalton Esqueda Referral (Sheela Lr MD Evaluation) 03/01/2022 Telephone Kristian Monge, AuD 02/25/2022 Telemedicine Theresa Vázquez Telehe alth PhD, LP 02/25/2022 Travel 02/16/2022 Telemedicine Carlo Ayala Pain MD 02/16/2022 Travel 02/14/2022 Telephone Masha Colon Question s AuD 02/12/2022 Orders Only Staff, Other Clinical <No sc ans attached> 02/12/2022 Orders Only Staff, Other Clinical <No sc ans attached> 02/09/2022 Refill Toni, Mauricio Refill Reque st Pa MD (Omeprazole) 02/03/2022 Telemedicine Theresa Vázquez Telehe alth; Trmt Plan PhD, LP 02/03/2022 Travel 01/26/[address] Medical Nutrition Therapy; Telehe alth 01/26/2022 Travel 01/21/2022 Hospital Encounter Dalton Esqueda MD Helms, Colleen G, PT Discharge Summary - Vijay Glez, PT - 01/21/2022 1:00 PM CDT [facility] Progress Note Patient Name: Nicolle Rosas dtke Date of Service: 01/21/2022 Start of Service: [...] level. She continues to have therapy at [facility] to addres s her radiculopathy. She [...] session at 44/56 to 54/56 today w hic indicates patient remai ns a potential for [...] for home program and will continue with [facility] to address radiculopathy. Acute Pain Intensity (0-10): [...] hand hold, with upper extremity swing ? 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 [...] Goal Status: Met Goal Status Comments: Approp lubna to continue with home exercise program alterations [...] weeks): 24 Planned Interventions: Thera peutic exercise (89943);Therapeutic activity (97808);Neuromuscular re-education (70440);Self-care (66029);PT Aquatic (86557);Hot/Cold pack (59645) 01/21/2022 Travel 01/14/2022 Orders Only Lab, [facility] 01/14/2022 Telephone Rosa Elena Cassidy, PT Late C cathrynel Appointment 01/14/2022 Travel 01/13/2022 Telemedicine Theresa Vázquez Telehe alth PhD, LP 01/13/2022 Travel 01/12/2022 Hospital Encounter Gera Esqueda MD Oswald, Rebecca L, PT 01/11/2022 Telemedicine Carlo Ayala MD [facility]; Pain 01/11/2022 Travel 01/07/2022 Hospital Encounter Gera [...] 12/07/2021 Telemedicine Carlo Ayala MD 12/07/2021 Travel from Last 3 Months Immunizations Name [...] in contact with No / Unsu re 03/03/2022 6:34 AM MANAGER TREASURY someone who was confirmed or suspected to have Coronavirus/COVID-19? Obstetrics History Para Term AB IAB SAB Ectopic Multiple Living Live Births Date Outcome GA Total Labor/2nd/3rd Weight Sex [...] Encounters Date Type Specialty Care Team Description 03/24/2022 Telemedicine Carlo Ayala MD [address] [place] [phone] (Wo rk) 04/08/[address] [place] [address] [place] [address] Dr Garcia [place], [place] [phone] (Wo rk) 04/12/2022 Telemedicine Carlo Ayala MD [address] [place] [phone] (Wo rk) 04/29/2022 Telemedicine Theresa Vázquez, PhD, LP [address] [place] [phone] (Wo rk) 05/12/2022 Telemedicine Carlo Ayala MD [address] [place] [phone] (Wo rk) 05/13/[address] [place] [address] [place] [address] Dr Garcia [place], [place] [phone] (Wo rk) 05/19/2022 Telemedicine Theresa Vázquez, PhD, [address] [phone] (Wo rk) Health Maintenance Due Date Last [...] 2014 18-79 Medical Devices Implanted Type Area Scrap Shear Operator Device Shelf Model / Identifier Expiration Serial / Date Lot Michael 7mm10 Loops - [id number] Right: [employer] [id number]# / Implanted: Qty: 4 on 04/12/2007 at [facility] ENTER Shoulder / Patch Vasc 0.8x8cm Biological Peripatch - [id number] Right: Lemaitre 08/25/2013 [id number]# / Implanted: Qty: 1 on 08/26/2011 by Brain Menendez MD at [facility] Carotid [employer] Inc / Artery [id number] Graft Vasc 0.3x3in Hemashield Stra Fabric Knitted [facility] - [id number] Left: [employer] 06/22/2021 [id number] / Implanted: Qty: 1 on 03/01/2017 by Brain Quiroga MD at [facility] Carotid / Artery [id number] Procedures Procedure Name Priority Date/Time Associated Diagnosis Comme nts SCAN 03/02/2022 12:00 Results for this CORRESP-LABORATORY AM MANAGER TREASURY procedure are in RESULTS the results section. SCAN CORRESP-IMAGING 03/02/2022 12:00 Res ults for this AM MANAGER TREASURY procedure are i n the results section. SCAN 03/01/2022 12:00 Results for this CORRESP-LABORATORY AM MANAGER TREASURY procedure are in RESULTS the results section. SCAN 03/01/2022 12:00 Results for this CORRESP-LABORATORY AM MANAGER TREASURY procedure are in RESULTS the results section. SCAN 03/01/2022 12:00 Results for this CORRESP-LABORATORY AM MANAGER TREASURY procedure are in RESULTS the results section. SCAN 03/01/2022 12:00 Results for this CORRESP-LABORATORY AM MANAGER TREASURY procedure are in RESULTS the results section. SCAN 03/01/2022 12:00 Results for this CORRESP-LABORATORY AM MANAGER TREASURY procedure are in RESULTS the results section. SCAN 03/01/2022 12:00 Results for this CORRESP-LABORATORY AM MANAGER TREASURY procedure are in RESULTS the results section. LIPID PANEL W REFLEX Routine 01/14/2022 7:58 [...] results section. from Last 3 Months Results SCAN CORRESP-LABORATORY RESULTS (03/02/2022 12:00 AM MANAGER TREASURY)Only the most recent of 7 resultswithin the time period is included. Narrative This result has an attachment that is no t available. Scanner OTHER SCAN CORRESP-IMAGING (03/02/2022 12:00 AM MANAGER TREASURY) Narrative This result has an attachment that is no t available. Scanner OTHER LIPID PANEL W REFLEX MEASURED LDL (01/14/2022 7:58 AM CDT) [facility] Method Time Signature CHOLESTEROL,TOTAL 159 100 - 199 01/14/2022 [place] mg/dL 9:36 AM [facility] LABORATORY TRIGLYCERIDES 130 <150 01/14/2022 [place] mg/dL 9:36 AM [facility] LAB[facility] HDL CHOLESTEROL 75 >40 mg/dL 01/14/2022 [place] 9:36 AM [facility] LAB[facility] NON-HDL 84 <145 01/14/2022 [place] CHOLESTEROL mg/dl 9:36 AM [facility] LAB[facility] CHOL/HDL RATIO 2.12 <4.50 01/14/2022 [place] 9:36 AM [facility] LDL CHOLESTEROL 58 <=130 01/14/2022 [place] mg/dL 9:36 AM [facility] VLDL CHOLESTEROL 26 <=30 01/14/2022 [place] mg/dL 9:36 AM [facility] LABORATORY PROVIDER ORDERED FASTING 01/14/2022 [place] STATUS 9:36 AM [facility] Specimen Anatomical Collection Method / Collection Time Recei bernarda Time (Source) Location / Volume Laterality Blood BLOOD SPECIMEN / Venipuncture / 01/14/2022 7:58 2021 8:18 Unknown Unknown AM CDT AM CDT Yu Bradley [facility] CHEMISTRY Performing Organization Address City/State/ZIP Code Phon e Number [facility] [address] [place] [address] OSMOLALITY,URINE (12/08/2021 12:36 PM CDT) P athologist Signature OSMOLALITY,URI 354 50 - 1,400 12/08/2021 [facility] [place] mOsmol/kg 9:59 PM CDT LABORATORY-[facility] LABORATORY Specimen Anatomical Collection Method Collection Time Receive d Time (Source) Location / / Volume Laterality Urine URINE SPECIMEN / Non-Blood / 12/08/2021 12:36 022 Unknown Unknown PM CDT 12:36 PM CDT Carlo Ayala MD URINE Performing Organization Address City/State/ZIP Code Phon e Number [facility] [address] [place] [address] LABORATORY-CENTRAL 2000 LABORATORY (ABNORMAL) CBC WITH AUTO DIFFERENTIAL (12/08/2021 12:28 PM CDT) [facility] [employer] [facility] gist Method Time Signature WHITE BLOOD 4.9 4.5 - 12/08/2021 [place] COUNT 11.0 12:51 PM [facility] thou/cu LABORATORY mm RED BLOOD COUNT 2.58 (L) 4.00 - 12/08/2021 [place] 5.20 12:51 PM [facility] mil/cu mm LABORATORY HEMOGLOBIN 9.6 (L) 12.0 - 12/08/2021 [place] 16.0 g/dL 12:51 PM [facility] LABORATORY HEMATOCRIT 29.0 (L) 33.0 - 12/08/2021 [place] 51.0 % 12:51 PM [facility] LABORATORY MCV 112 (H) 80 - 100 12/08/2021 [place] fL 12:51 PM [facility] LABORATORY MCH 37.2 (H) 26.0 - 12/08/2021 [place] 34.0 pg 12:51 PM [facility] LABORATORY MCHC 33.1 32.0 - 12/08/2021 [place] 36.0 g/dL 12:51 PM [facility] LABORATORY RDW 16.9 (H) 11.5 - 12/08/2021 [place] 15.5 % 12:51 PM [facility] PLATELET COUNT 237 140 - 440 12/08/2021 [place] thou/cu 12:51 PM [facility] mm LABORATORY MPV 10.7 6.5 - 12/08/2021 [place] 11.0 fL 12:51 PM [facility] LABORATORY % NEUT 84.4 % 12/08/2021 [place] 12:51 PM [facility] LAB[facility] % LYMPH 7.6 % 12/08/2021 [facility] 12:[facility] % MONO 7.2 % 12/08/2021 [facility] 12:51 PM [facility] % EOS 0.4 % 12/08/2021 [facility] 12:51 PM [facility] % BASO 0.4 % 12/[facility] ABSOLUTE 4.1 1.7 - 7.0 12/08/2021 [place] NEUTROPHILS thou/cu 12:51 PM [facility] mm LABORATORY ABSOLUTE 0.4 (L) 0.9 - 2.9 12/08/2021 [place] LYMPHOCYTES thou/cu 12:51 PM [facility] mm LABORATORY ABSOLUTE 0.4 <0.9 12/08/2021 [place] MONOCYTES thou/cu 12:51 PM [facility] mm LABORATORY ABSOLUTE 0.0 <0.5 12/08/2021 [place] EOSINOPHILS thou/cu 12:51 PM [facility] mm LABORATORY ABSOLUTE 0.0 <0.3 12/08/2021 [place] BASOPHILS thou/cu 12:51 PM [facility] mm LABORATORY Specimen Anatomical Collection Method / Collection Time Recei bernarda Time (Source) Location / Volume Laterality Blood BLOOD SPECIMEN / Venipuncture / 12/08/2021 12:28 12/08 Unknown Unknown PM CDT 12:31 PM CDT Narrative [facility] LAB[facility] - 12:51 PM CDT This procedure was originally ordered at ??[facility] \T\ [facility]. Carlo Ayala MD HEMATOLOGY Performing Organization Address City/State/ZIP Code Phon e Number [facility] [address] [place] [address] (ABNORMAL) IRON PLUS IRON BINDING CAP (12/08/2021 12:28 PM CDT) athologist Signature IRON 45 25 - 156 12/09/2021 [facility] ug/dL 3:45 AM CDT LABORATORY-[facility]ORAT[facility] UIBC 255 12/09/2021 [facility] (UNSATURATED) 3:45 AM CDT LAB[facility]ATORY-[facility] IRON BINDING 300 245 - 400 12/09/2021 [facility] CAPACITY ug/dL 3:45 AM CDT LAB[facility]ATORY-[facility] IRON,% 15 (L) 20 - 55 % 12/09/2021 [facility] SATURATION 3:45 AM CDT LABORATORY-[facility] Specimen Anatomical Collection Method / Collection Time Recei bernarda Time (Source) Location / Volume Laterality Blood BLOOD SPECIMEN / Venipuncture / 12/08/2021 12:28 12/08 Unknown Unknown PM CDT 12:31 PM CDT Carlo Ayala MD CHEMISTRY Performing Organization Address City/State/ZIP Code Phon e Number [facility] [address] [place] [address] [place] [address] LABORATORY-CENTRAL 2000 LABORATORY OSMOLALITY (12/08/2021 12:28 PM CDT) athologist Signature OSMOLALITY 289 275 - 300 12/08/2021 [facility] mOsmol/kg 9:58 PM CDT LABORATORY-[facility] LABORATORY Specimen Anatomical Collection Method / Collection Time Recei bernarda Time (Source) Location / Volume Laterality Blood BLOOD SPECIMEN / Venipuncture / 12/08/2021 12:28 12/08 Unknown Unknown PM CDT 12:31 PM CDT Carlo Ayala MD CHEMISTRY Performing Organization Address City/State/ZIP Code Phon e Number [facility] [address] [place], [place] [address] [place] [address] LABORATORY-CENTRAL 2000 LABORATORY FERRITIN (12/08/2021 12:28 PM CDT) athologist Signature FERRITIN 157.3 15.0 - 12/09/2021 [facility] 205.0 ng/mL 4:00 AM CDT LABORATORY-CENTR AL LABORATORY Specimen Anatomical Collection Method / Collection Time Recei bernarda Time (Source) Location / Volume Laterality Blood BLOOD SPECIMEN / Venipuncture / 12/08/2021 12:28 12/08 Unknown Unknown PM CDT 12:31 PM CDT Carlo Ayala MD CHEMISTRY Performing Organization Address City/State/ZIP Code Phon e Number [facility] [address] [place] [address] LABORATORY-CENTRAL 2000 LABORATORY (ABNORMAL) VITAMIN B12 (12/08/2021 12:28 PM CDT) athologist Signature VITAMIN B12 1,293 (H) 180 - 914 12/09/2021 [facility] pg/mL 12:03 PM CDT LABORATORY-[facility] LAB[facility]AT[facility] Specimen Anatomical Collection Method / Collection Time Recei bernarda Time (Source) Location / Volume Laterality Blood BLOOD SPECIMEN / Venipuncture / 12/08/2021 12:28 12/08 Unknown Unknown PM CDT 12:31 PM CDT Carlo Ayala MD CHEMISTRY Performing Organization Address City/[facility]/ZIP [facility] Phon e Number [facility] [address] [place] [address] LABORATORY-CENTRAL 1999 LABORATORY (ABNORMAL) BASIC METABOLIC PANEL (12/08/2021 12:28 PM CDT) athologist Signature SODIUM 140 135 - 145 12/08/2021 [place] mmol/L 1:05 PM [facility] LABORATORY POTASSIUM 4.4 3.5 - 5.0 12/08/2021 [place] mmol/L 1:05 PM [facility] LAB[facility]ATORY CHLORIDE 104 98 - 110 12/08/2021 [place] mmol/L 1:05 PM [facility] LAB[facility]ORY CO2,TOTAL 26 21 - 31 12/08/2021 [place] mmol/L 1:05 PM [facility] LAB[facility] ANION GAP 10 5 - 18 12/08/2021 [place] 1:05 PM [facility] LAB[facility]ORY GLUCOSE 93 65 - 100 12/08/2021 [place] mg/dL 1:05 PM [facility] LAB[facility]ORY CALCIUM 9.8 8.5 - 10.5 12/08/2021 [place] mg/dL 1:05 PM [facility] LAB[facility] BUN 15 8 - 25 12/08/2021 [place] mg/dL 1:05 PM [facility] LAB[facility]ORY CREATININE 0.88 0.57 - 12/08/2021 [place] 1.11 mg/dL 1:05 PM [facility] LABORATORY BUN/CREAT RATIO 17 10 - 20 12/08/2021 [place] 1:05 PM [facility] LABORATORY eGFR 72 (L) >90 12/08/2021 [place] mL/min/1.7 1:05 PM [facility] 3m2 LABORATORY Comment: As of 2021, eGFR [...] Carlo Ayala MD CHEMISTRY Performing Organization Address City/[facility]/ZIP Code Phon e Number [facility] [address] [place] [address] from Last 3 Months Insurance Payer Benefit Plan / Subscriber ID Effective Phone Address T ype Group Dates BLUE CROSS BL[employer] OF [id number] 2013-Prese [address] [place] [address] WC WORKERS WC [place] [employer] [place] [id number] 2020-Pres [address] [place] [address] WC WORKERS WC [employer] [place] [id number] 2020-Pres [address] [place] [address] MEDICARE PART MEDICARE PART B [id number] 2019-Pres A TTN: CLAIMS B - HB USE HB ONLY ent [address] [place] [address] MEDICARE PART MEDICARE PART A [id number] 2019-Pres A TTN: CLAIMS A - HB USE HB ONLY ent [address] [place] [address] MEDICARE - PB MEDICARE PB [id number] 2019-Pres ATTN: CLAIMS USE ONLY ONLY ent [address] [place] [address] BLUE CROSS BLUE CROSS OF [id number] 2019-Pres [address] [facility] [place] [address] Nicolle Covington Personal/Family Self 1955 [address] (Home) [place] [address] Nicolle [place] Comp Self [address] (Home) [place] [address] Nicolle [place] Comp Self [address] (Home) [place] [address] Nicolle C[place]ton Personal/Family Self [phone] (Home) [place] [address] Advance Directives Latest Code Status on File [...] 5:42 AM 03/01/2017 11:49 AM Care Teams Bonding Supervisor Relationship Specialty Start Date End Date Dalton Esqueda MD PCP - General Family Practice 10/15/201999 [place] [address] Theresa Vázquez, PhD, Psychologist Psychology 06/23/11 Abhinav Miranda MD Dermatology Dermatology 08/07/15 [facility] [place] 09/14/16 Rambo Cordova MD Rheumatology Rheumatology 04/07/17 [address] [facility] [address] [place] [address] Abhinav Miranda MD Dermatology 07/11/17
[2022-03-09 15:27] LABS: Thyroid Stimulating Hormone* 0.428 uIU/mL (0.270-4.20)
== END 2022-03-09 11:48 | disposition home or self-care (01) ==
LOC: FBOREF 11:48
PROVIDERS: PCP Family Medicine; Visit Provider Family Medicine
DX: E03.9 Hypothyroidism, unspecified (principal)
CPT/HCPCS: 84443

== ENCOUNTER 2022-06-14 07:57 | Outpatient (CLI) | payer MEDICARE, BC, SELFPAY ==
--- NOTE | 2022-06-14 08:15 | CRLHL7_ITS ---
For Patients: As a result of the Century Cures Act, medical imaging exams and procedure reports are released immediately into your electronic medical record. You may view this report before your referring provider. If you have questions, please contact your health care provider. INDICATION: Chronic low back pain. TECHNIQUE: Multiplanar multisequence noncontrast MR images acquired through the lumbar spine. COMPARISON: None. FINDINGS: Mild leftward lumbar curvature. Exaggerated lumbar lordosis. Vertebral body heights maintained. No acute fracture. No T1 hypointense marrow replacing lesions. Normal conus terminates at L2. T12-L1: Mild disc degeneration. No spinal canal or neural foraminal narrowing. L1-2: Mild degeneration. Shallow posterior disc bulge. No spinal canal or neural foraminal narrowing. L2-3: Trace retrolisthesis. Moderate disc degeneration and disc height loss. Circumferential disc bulge. Mild spinal canal narrowing. No neural foraminal narrowing. L3-4: Moderate disc degeneration. Shallow posterior disc bulge. Minimal facet arthropathy. No spinal canal or neural foraminal narrowing. L4-5: Moderate disc degeneration. Shallow posterior bulge. Mild facet arthropathy. No spinal canal or neural foraminal narrowing. L5-S1: Grade 1 anterolisthesis measuring 6 mm. Advanced disc degeneration and moderately advanced disc height loss. Posterior disc bulge. Advanced bilateral facet arthropathy. Bilateral facet joint effusions. Thickening ligamentum flavum. Mild spinal canal narrowing. Moderate narrowing of the lateral recesses. Moderately severe bilateral neural foraminal stenosis. Sacroiliac joint degenerative changes. T2 hyperintense lesion left kidney inferior pole, most compatible with a renal cyst. IMPRESSION: 1. At L5-S1, grade 1 anterolisthesis and advanced facet arthropathy contribute to mild narrowing of the spinal canal and moderate narrowing of the lateral recesses. There is moderately severe bilateral neural foraminal stenosis with potential impingement of the exiting L5 nerve roots. 2. Mild spondylosis at additional levels. Dictated by Romero Francisco MD @ 06/14/2022 5:51:18 PM (Electronically Signed)
== END 2022-06-14 07:58 | disposition home or self-care (01) ==
LOC: MRI 07:59
PROVIDERS: PCP Family Medicine; Visit Provider Family Medicine
DX: M54.50 Low back pain, unspecified (principal); M54.16 Radiculopathy, lumbar region; M48.07 Spinal stenosis, lumbosacral region
CPT/HCPCS: 72148

== ENCOUNTER 2022-07-05 09:27 | Outpatient (CLI) | payer MEDICARE, BC, SELFPAY | END 2022-07-05 09:28 | disposition home or self-care (01) | LOC: NFLDREF 07-07 09:56 | PROVIDERS: PCP Family Medicine; Referring Provider Family Medicine; Visit Provider Family Medicine | DX: R35.0 Frequency of micturition (principal); R30.9 Painful micturition, unspecified | CPT/HCPCS: 81015 ==

== ENCOUNTER 2022-07-30 12:50 | Outpatient (CLI) | payer MEDICARE, BC, SELFPAY ==
--- NOTE | 2022-07-30 13:00 | CRLHL7_ITS ---
For Patients: As a result of the Century Cures Act, medical imaging exams and procedure reports are released immediately into your electronic medical record. You may view this report before your referring provider. If you have questions, please contact your health care provider. Indication: Urinary freq, achiness Technique: Postcontrast CT abdomen and pelvis. 59 cc Isovue 370 intravenous contrast. Please note that all CT scans at this facility use dose modulation, iterative reconstruction, and/or weight-based dosing when appropriate to reduce radiation dose to as low as reasonably achievable. Comparison: None Findings: Mild atelectasis or scarring is present within both lung bases. Incidental Bochdalek`s hernias noted bilaterally containing fat. There is no free intraperitoneal air. No intrahepatic mass. There is a calcified stone within an intrahepatic biliary ducts centrally measuring 2.6 millimeters, series 2, image 37. The common bile duct appears normal. Normal pancreas. The spleen is normal. Adrenal glands are unremarkable. Normal kidneys. Extensive atherosclerotic disease. Normal patency of the portal vein. No adenopathy. Bladder normal. No pelvic soft tissue mass. No bowel obstruction or free fluid. No stones are present within kidneys or ureters. No hydronephrosis or perinephric stranding. Incidental bilateral pelvic phleboliths. Grade 1 degenerative spondylolisthesis of L5 on S1 with vacuum disc phenomenon at this level. No acute fracture. Impression: Normal kidneys, ureters and bladder. 2.6 millimeter intrahepatic biliary duct stone without biliary obstruction. Please correlate with liver function tests. No bowel obstruction or evidence of enteritis/colitis. Please note that all CT scans at this facility use dose modulation, iterative reconstruction, and/or weight-based dosing when appropriate to reduce radiation dose to as low as reasonably achievable. Dictated by Dalton Trejo MD @ 08/02/2022 12:21:37 PM (Electronically Signed)
[2022-07-30 13:33] LABS: Estimated Glomerular Filt Rate 61 ml/min
== END 2022-07-30 12:51 | disposition home or self-care (01) ==
LOC: CT 12:51
PROVIDERS: PCP Family Medicine; Visit Provider Family Medicine
DX: R35.0 Frequency of micturition (principal); K80.50 Calculus of bile duct without cholangitis or cholecystitis without obstruction; R10.9 Unspecified abdominal pain
CPT/HCPCS: 36415; 74177; 82565; Q9967

== ENCOUNTER 2022-08-17 14:36 | Outpatient (CLI) | payer MEDICARE, BC, SELFPAY ==
--- NOTE | 2022-08-17 14:40 | CRLHL7_ITS ---
For Patients: As a result of the Century Cures Act, medical imaging exams and procedure reports are released immediately into your electronic medical record. You may view this report before your referring provider. If you have questions, please contact your health care provider. BILATERAL SCREENING MAMMOGRAM WITH COMPUTER-AIDED DETECTION TECHNIQUE: CC and MLO views were obtained. These mammographic images have been obtained using full-field digital technique. These mammographic images were interpreted with the benefit of computer-aided detection. COMPARISON FILM: 02/20/21, 03/07/19, 02/24/18. FINDINGS: There are scattered areas of fibroglandular density. IMPRESSION: There is no radiographic evidence for malignancy. ASSESSMENT: BI-RADS Category 1: Negative RECOMMENDATION: Routine screening mammogram in 1 year. A lay language report of this examination will be provided to the patient. ENRIQUE HOWARD M.D. Diagnostic/Nuclear Medicine Radiologist [email or web address] BUSHRA:[email or web address] Transcribed: 08/18/2022, 2:[address]/Dictated by: Enrique Howard MD @ 08/18/2022 9:22:00 AM (Electronically Signed)
== END 2022-08-17 14:37 | disposition home or self-care (01) ==
PROVIDERS: PCP Family Medicine; Visit Provider Family Medicine
DX: Z12.31 Encounter for screening mammogram for malignant neoplasm of breast (principal)
CPT/HCPCS: 77067

== ENCOUNTER 2022-11-12 11:27 | Emergency (ER) | payer MEDICARE, BC, SELFPAY ==
[2022-11-12 11:49] VITALS: BP 121/52; PULSE 98; RESP 18; TEMP 36.9; O2SAT 97; BMI 19.1
--- NOTE | 2022-11-12 12:57 | ED_ITS ---
HPI - General Adult General Chief complaint: Extremity Pain/Injury, Upper Stated complaint: L shoulder/arm pain Time Seen by Provider: 11/12/22 12:44 History of Present Illness HPI narrative: This 67-year-old female comes in reporting worsening pain in her left shoulder radiating down her arm. She has lupus and is taking injectable medicine once a month that she feels is making her symptoms worse. She has had 7 months of these injections. She does not report any injury event or strenuous activity. She states that she has been on strong narcotics in the past that did not help at all. Her symptoms are rheumatologic with this history of lupus. She is seeing a cardiopulmonary supervisor. She is currently taking prednisone 10 mg daily. Related Data Home Medications Medication Instructions Recorded Confirmed CBD Oil sublingual 11/17/21 10/18/22 aspirin 81 mg chewable tablet 81 mg PO QDAY 11/17/21 10/18/22 (Aspirin Childrens) magnesium oxide 400 mg (241.3 mg 400 mg PO QDAY 11/17/21 10/18/22 magnesium) tablet Electrolytes PO 12/09/21 10/18/22 mycophenolate mofetil 500 mg tablet 500 mg PO BID 02/15/22 10/18/22 alirocumab 75 mg/mL subcutaneous 75 mg subcut Q2W 03/09/22 10/18/22 pen injector (Praluent Pen) hydrocortisone 2.5 % topical cream 1 applic topical QDAY PRN 03/09/22 10/18/22 naltrexone 5.5mg PO .ud 07/27/22 10/18/22 prednisolone acetate 1 % eye 1 drp ophthalmic (eye) QID 07/27/22 10/18/22 drops,suspension prednisone 5 mg tablet 5 mg PO Q OTHER DAY 07/27/22 10/18/22 Previous Rx's Medication Instructions Recorded meloxicam 15 mg tablet 15 mg PO QDAY #90 tabs 01/14/22 lisinopril 40 mg tablet 40 mg PO QDAY #90 tabs 05/06/22 ezetimibe 10 mg tablet 10 mg PO QDAY #90 tabs 06/30/22 doxazosin 2 mg tablet 2 mg PO QDAY #90 tabs 07/05/22 prednisone 10 mg tablet 10 mg PO Q OTHER DAY #90 tabs 10/08/22 ondansetron HCl 4 mg tablet 4 mg PO Q6H PRN nausea and 11/08/22 vomiting #30 tabs methylprednisolone 4 mg tablets in See Rx Instructions PO .COMPLEX 11/12/22 a dose pack (Medrol (Art)) #21 ea Allergies Allergy/AdvReac Type Severity Reaction Status Date / Time atenolol Allergy Severe Verified 10/18/22 08:54 belimumab Allergy Severe Rash Verified 10/18/22 08:54 fentanyl Allergy Severe Cardiac Verified 10/18/22 08:54 Arrest infliximab [From Remicade] Allergy Severe Anaphylaxis Verified 10/18/22 08:54 alendronate sodium Allergy Mild stomach Verified 10/18/22 08:54 pain amitriptyline Allergy Mild Unknown Verified 10/18/22 08:54 buprenorphine Allergy Mild didn't help Verified 10/18/22 08:54 gabapentin Allergy Mild stomach Verified 10/18/22 08:54 issues amoxicillin Allergy Unknown Unknown Verified 10/18/22 08:54 diltiazem Allergy Unknown Unknown Verified 10/18/22 08:54 duloxetine Allergy Unknown Unknown Verified 10/18/22 08:54 erythromycin base Allergy Unknown Unknown Verified 10/18/22 08:54 hydralazine Allergy Unknown Unknown Verified 10/18/22 08:54 hydrochlorothiazide Allergy Unknown unknown Verified 10/18/22 08:54 hydroxychloroquine Allergy Unknown Unknown Verified 10/18/22 08:54 Ouacvta-SZD-CeT Reductase Allergy Unknown Unknown Verified 10/18/22 08:54 Inhibitor tetracycline Allergy Unknown Unknown Verified 10/18/22 08:54 venlafaxine Allergy Unknown Unknown Verified 10/18/22 08:54 plavix Allergy Intermediate Uncoded 10/18/22 08:54 diltiazem Allergy Mild Uncoded 10/18/22 08:54 wellbutrin Allergy Mild hazy Uncoded 10/18/22 08:54 HMG-CoA reductase inhibitor Allergy Unknown Uncoded 10/18/22 08:54 Review of Systems Status of ROS: Reports: 10 or more systems reviewed and unremarkable except as noted in History and below Narrative: Constitutional: No fevers, no weight gain or loss. Eyes: No discharge. No vision changes. HENT: No congestion, no sore throat, no ear pain. Cardiovascular: No chest pain, no palpitations. Respiratory: No shortness of breath, no wheezes, no cough. Gastrointestinal: No abdominal pain, no vomiting, no diarrhea. Genitourinary: No dysuria, no hematuria. Musculoskeletal: Normal range of motion. Chronic pain in her left shoulder. Skin: No rashes, no pruritis. Neurological: No dizziness, weakness, sensory change, speech change. Endo/Heme/Allergies: No bruising or bleeding. No polydipsia. Pysch: no suicidality, no anxiety, no insomnia. All other systems reviewed and are negative. [facility] Medical History Chronic sinus infection ?J32.9 - Chronic sinusitis, unspecified (ICD-10) DJD (degenerative joint disease), lumbosacral ?M47.817 - Spondylosis without myelopathy or radiculopathy, lumbosacral region (ICD-10) Sjogren's syndrome (2012) ?M35.00 - Sjogren syndrome, unspecified (ICD-10) Positive antinuclear antibody (07/21/11) ?R76.8 - Other specified abnormal immunological findings in serum (ICD-10) Peripheral vascular disease ?I73.9 - Peripheral vascular disease, unspecified (ICD-10) Osteoporosis ?M81.0 - Age-related osteoporosis without current pathological fracture (ICD- 10) Obstructive sleep apnea syndrome (03/23/18) ?G47.33 - Obstructive sleep apnea (adult) (pediatric) (ICD-10) Hypothyroidism (06/30/17) ?E03.9 - Hypothyroidism, unspecified (ICD-10) Hypertension (08/23/11) ?I10 - Essential (primary) hypertension (ICD-10) Hyperlipidemia ?E78.5 - Hyperlipidemia, unspecified (ICD-10) History of lichen planus ?Z87.2 - Personal history of diseases of the skin and subcutaneous tissue (ICD-10) History of colonic polyps ?Z86.010 - Personal history of colonic polyps (ICD-10) History of basal cell carcinoma (BCC) ?Z85.828 - Personal history of other malignant neoplasm of skin (ICD-10) Generalized anxiety disorder (06/20/14) ?F41.1 - Generalized anxiety disorder (ICD-10) Fibromyalgia (2012) ?M79.7 - Fibromyalgia (ICD-10) Deafness in left ear (11/20/15) ?H91.92 - Unspecified hearing loss, left ear (ICD-10) Cerebral aneurysm (08/28/16) ?I67.1 - Cerebral aneurysm, nonruptured (ICD-10) Bilateral carotid artery stenosis ?I65.23 - Occlusion and stenosis of bilateral carotid arteries (ICD-10) Adjustment disorder with depressed mood (04/09/07) ?F43.21 - Adjustment disorder with depressed mood (ICD-10) Surgical History History of sinus surgery ?Z98.890 - Other specified postprocedural states (ICD-10) History of repair of right rotator cuff (2006) ?Z98.890 - Other specified postprocedural states (ICD-10) History of intravascular stent placement (05/2017) ?Z95.828 - Presence of other vascular implants and grafts (ICD-10) History of hysterectomy (1994) ?Z90.710 - Acquired absence of both cervix and uterus (ICD-10) History of section (1975) ?Z98.891 - History of uterine scar from previous surgery (ICD-10) History of cataract extraction ?Z98.49 - Cataract extraction status, unspecified eye (ICD-10) History of carotid endarterectomy (2009) ?Z98.890 - Other specified postprocedural states (ICD-10) Family History Sister Breast cancer Diabetes Mother Stroke Heart disease Father Prostate cancer Diabetes Daughter Diabetes Family/Other Breast cancer Social History Narrative: Medical marijuana use- onset 07/24/18 Single, no kids, 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 HEENT: Normocephalic, atraumatic. Neck: Normal range of motion. Nontender. Supple. Heart: Intact distal pulses. Lungs: No chest discomfort. No wheezes, rhonchi, or rales. Abdomen: Nontender. Back: Normal range of motion. Extremities: Normal range of motion. No injury. Left arm and shoulder has no sign of swelling or deformity. Skin: Intact. No rash. Warm. No erythema or pallor. Neurologic: No altered sensation. No weakness. Alert and oriented. Psychiatric: No suicidality. No anxiety or depression. No insomnia. Nursing notes and vitals signs are reviewed. Const: Vital Signs, click to edit/add: Vital Signs - 24 hr 11/12/22 11:49 Temperature 98.5 F Pulse Rate [Pulse Oximeter] 98 Respiratory Rate 18 Blood Pressure [Ri ght Upper Arm] 121/52 L Pulse Oximetry 97 Oxygen Delivery Me thod Room Air Course Vital Signs Vital signs: Initial Vital Signs Temperature 98.5 F 11/12/22 11:49 Temperature Source Temporal Artery Scan 11/12/22 11:49 Pulse Rate 98 11/12/22 11:49 Respiratory Rate 18 11/12/22 11:49 Blood Pressure 121/52 L 11/12/22 11:49 Blood Pressure Mean 75 11/12/22 11:49 Pulse Oximetry 97 11/12/22 11:49 Oxygen Delivery Method Room Air 11/12/22 11:49 Vital Signs Temperature 98.5 F 11/12/22 11:49 Pulse Rate 98 11/12/22 11:49 Respiratory Rate 18 11/12/22 11:49 Blood Pressure 121/52 L 11/12/22 11:49 Pulse Oximetry 97 11/12/22 11:49 Oxygen Delivery Method Room Air 11/12/22 11:49 Temperature 98.5 F 11/12/22 11:49 Pulse Rate 98 11/12/22 11:49 Respiratory Rate 18 11/12/22 11:49 Blood Pressure 121/52 L 11/12/22 11:49 Pulse Oximetry 97 11/12/22 11:49 Oxygen Delivery Method Room Air 11/12/22 11:49 Medical Decision Making MDM Narrative Medical decision making narrative: This patient has chronic joint pain likely related to lupus. There was no injury event or strenuous activity that necessitates imaging studies at this time. I did discuss lab and imaging options with the patient which were declined in a process of shared decision making. The patient did receive an oral dose of dexamethasone 10 mg. I also provided a prescription for Medrol Dosepak. She is encouraged to continue to take her prednisone 10 mg in addition to this. She understands that steroids have long-term adverse effects and will need to have ongoing management of her chronic condition with her primary doctors. Hopefully this steroid burst will bring some relief to her symptoms. Discharge Plan Discharge Clinical Impression: Lupus arthritis Patient Disposition: Home, Self-Care Condition: Stable Additional Instructions: Take medication as prescribed. Follow up with primary physicians for ongoing management. Return if worsening. Prescriptions: New methylprednisolone [Medrol (Art)] 4 mg tablets,dose pack See Rx Instructions .ROUTE .COMPLEX Qty: 21 0RF Rx Instructions: orally per package directions No Action Electrolytes PO Praluent Pen 75 mg/mL pen injector 75 mg subcut Q2W Patient Comments: INJECT 75MG SUBCUTANEOUSLY EVERY 2 WEEKS hydrocortisone 2.5 % cream 1 applic topical QDAY PRN doxazosin 2 mg tablet 2 mg PO QDAY Qty: 90 1RF magnesium oxide 400 mg (241.3 mg magnesium) tablet 400 mg PO QDAY CBD Oil sublingual aspirin [Aspirin Childrens] 81 mg tablet,chewable 81 mg PO QDAY mycophenolate mofetil 500 mg tablet 500 mg PO BID Patient Comments: TAKE ONE TABLET BY MOUTH TWICE A DAY prednisone 5 mg tablet 5 mg PO Q OTHER DAY Rx Instructions: Opposite 10mg days prednisolone acetate 1 % drops,suspension 1 drp ophthalmic (eye) QID naltrexone 5.5mg PO .ud Patient Comments: 4.5 mg PM and 1mg AM meloxicam 15 mg tablet 15 mg PO QDAY Qty: 90 3RF lisinopril 40 mg tablet 40 mg PO QDAY Qty: 90 3RF ezetimibe 10 mg tablet 10 mg PO QDAY Qty: 90 3RF Patient Comments: TAKE ONE TABLET BY MOUTH EVERY DAY prednisone 10 mg tablet 10 mg PO Q OTHER DAY Qty: 90 1RF Rx Instructions: opposite 5mg days ondansetron HCl 4 mg tablet 4 mg PO Q6H PRN (Reason: nausea and vomiting) Qty: 30 1RF Follow Up/Referrals: Dalton Esqueda MD [Primary Care Provider] - Stand Alone Forms: eeden Info Instructions
[2022-11-12] MEDS: dexAMETHasone 10 MG/ML inj PO (13:09)
--- OUTSIDE RECORDS SUMMARY | 2022-11-12 13:11 | XMS_ITS | Patient Health Record ---
Author Name Unknown Organization [facility] Address [address] [place] [address] [address] [place] [address] Care Team Providers Care Capacity Planner Name Role Phone Dalton Esqueda MD Primary Care Provider Unavail able Rambo Raymond Unavailable [phone] Dalton Louis Unavailable Unavailable ALLERGIES Allergen (clinical drug ingredient) Drug/Non Drug Allergy documented on EMR Reaction Allergy Type Onset Date Status amoxicillin Amoxicillin Unknown Drug Allergy Act epi diltiazem dilTIAZem HCl Unknown Drug Allergy Act epi erythromycin Erythromycin Unknown Drug Allergy A ctive gabapentin Gabapentin Unknown Drug Allergy Activ e tetracycline Tetracycline HCl Unknown Drug Allergy Active duloxetine Duloxetine Unknown Drug Allergy Activ e fentanyl Fentanyl Unknown Drug Allergy Active fluconazole Fluconazole Unknown Drug Allergy Act epi hydrochlorothiazide Hydrochlorothiazide Unknown Drug Aller gy Active infliximab Infliximab Unknown Drug Allergy Activ e Substance with 3-ukbptpq-3-methylglutar yl-coenzyme A reductase inhibitor mechanism of action (substance) Statins Unknown Drug Allergy Active sulfasalazine Sulfasalazine Unknown Drug Allergy Active venlafaxine Venlafaxine Unknown Drug Allergy Act epi REASON FOR REFERRAL No Information MEDICATIONS Medication SIG (Take, Route, Frequency, Duration) Notes Start Date End Date Status Mupirocin 2 % 1 application Machine Bunch Maker ally Twice a day Active Temovate 0.05 % 1 application Machine Bunch Maker ally Twice a day Active Ondansetron Active Triamcinolone Acetonide Active Acetaminophen ER 650 MG 2 tablets as nee ded Orally every 8 hrs Active Kenalog Active Naltrexone Active Lisinopril 20 MG 1 tablet Orally Once a day Active Magnesium Oxide 400 MG 1 tablet as neede d Orally Once a day Active Ezetimibe 10 MG 1 tablet Orally Once a day Active Betaine HCl 300 MG as directed Orally Active Levothyroxine Sodium 25 MCG 1 tablet in the morning on an empty stomach Orally Once a day Active Niacinamide Active predniSONE 10 MG 1 tablet Orally Once a day Active Probiotic Active Meloxicam 15 MG 1 tablet Orally Once a day Active Turmeric 500 MG as directed Orally T wo times a day Active Omeprazole 20 MG 1 capsule 30 minutes before morning meal Orally Once a day Active Saccharomyces boulardii Active Pilocarpine HCl 5 MG 1 tablet Orally Thr ee times a day Active Betamethasone Active Mercaptopurine 50 MG as directed Orally Two times a day Active Aspirin 81 MG 1 tablet Orally Once a day Active SOCIAL HISTORY Sex Assigned At : Social History Observation Description Sex Assigned At Unknown PROBLEMS Problem Type ICD Code Onset Dates Problem Status W/U Status Risk SNOMED Code Notes Problem Systemic lupus erythematosus, unspecified (M32.9) Active confirmed Systemic lupus erythematosus (45531844) Problem Spondylosis without myelopathy or radiculopathy, cervical region (M47.812) Active confirmed Cervical spondylosis without myelopathy (433931436) Problem Spondylosis without myelopathy or radiculopathy, lumbar region (M47.816) Active confirmed Lumbosacral spondylosis without myelopathy (14044162) Problem Dorsalgia, unspecified (M54.9) Active confirmed Backache (571740662) Problem Muscle wasting and atrophy, not elsewhere classified, multiple sites (M62.59) Active confirmed Muscle wasting disorder (83345472) Problem Impingement syndrome of right shoulder (M75.41) Active confirmed Impingemen t syndrome of shoulder region (763165786) Problem Age-related osteoporosis without current pathological fracture (M81.0) Active confirmed Age-related osteoporosis (516999060) Problem Unspecified abnormalities of gait and mobility (R26.9) Active confirmed Abnormal gait (94976065) Problem Neck pain (M54.2) Active confirmed Neck pain (71259404) Problem Headache disorder (R51.9) Active confirmed Headache disorder (034641581) Problem Low back pain (M54.50) Active confirmed Low back pain (151630833) PLAN OF TREATMENT No Information Insurance Providers Payer Name Payer Address Payer Phone Subscriber Number Group Number Insured Name Patient Relationship to Insured Coverage Start Date Coverage End Date Medicare Part B [employer] 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 Erythematous Sjogren's Syndrome Hypothyroidism Brain Aneurysms Other and Unspecified Hyperlipidemia Hypertension Stenosis in Left and Right Carotid Arter ies Midline Low Back Pain with Sciatica Chronic SL Joint Pain Deafness in Left Ear Sleep Apnea Adverse effect of narcotic Lupus Fibromyalgia JUJU Positive Surgical History Surgery Date(Month/Year) C section 1976 Hystromicty and appendectomy 1994 Sinus Dist 2000 2 Rotator Cuff Surgeries for Right Shoul joe 2007 Deltoid Repair in Right Shoulder 2007 Parathyroid 2010 right carotid endarterectomy 2009 colonoscopy 2012 TFE at L5-S1 01/24/2017 Lumbar RFA at bilateral L3-4 and Sacial ala left carotid endarectomy 2017 stent-right and left common iliacs 2018 colonoscopy diagnostic 2020 Hospitalization History Reason Date(Month/Year) Will bring list
--- OUTSIDE RECORDS SUMMARY | 2022-11-12 13:11 | XMS_ITS | Continuity of Care Document ---
Author Name Unknown Organization [facility] Address [address] [address] [place] [address] Phone Care Team Providers Care Dining Room Attendant Name Role Phone Mt Azul MD Unavailable Unavailable Advance Directives Directive Yes / No Effective Date File Name No Information Encounters Encounter Description Practice Location Reason(s) For Visit Diagnoses Date Provider Providers Copied on Encounter [facility], [address] [address], [place], [place], [id number], [place] tel:[phone] [facility] No Information Latha Amor. [address] [facility] [address], [place], [place], [id number], [place]. tel:[phone] Family History Family Member Type Diagnosis Age At Onset No Information Payers Payer name Insurance type Covered democrat ID Authoriza tion(s) No Information Social History Type Description Quantity Date Captured Comments Sex Female Smoking Status No Information Chief Complaint And Reason For Visit No Information Reason For Referral Reason For Referral No Information History Of Present Illness Encounter Date Complaint History Of Prese nt Illness No Information Functional Status Date Functional Assessmen t No Information Instructions Date Instruction Additional Infor mation No Information Assessments Type Assessment Date No Information Patient Care Teams Name Effective Dates (start - stop) Status Members No Information
--- OUTSIDE RECORDS SUMMARY | 2022-11-12 13:11 | XMS_ITS | Continuity of Care Document ---
Author Name Unknown Organization [facility] Address [address] [place] [address] Phone Care Team Providers Care Occupational Health Nurse Name Role Phone Lemuel Huang MD Unavailable Unavailab le Allergies, Adverse Reactions, Alerts Substance Reaction Status Criticality diltiazem Unknown Active No Information hydralazine Unknown Active No Information duloxetine Unknown Active No Information hydrochlorothiazide Unknown Active No Infor mation Ozbobww-YQK-HkH Reductase Inhibitors Unknown Acti ve No Information hydroxychloroquine Unknown Active No Inform ation Venlafaxine Analogues Unknown Active No Inf ormation tetracycline Unknown Active No Information amoxicillin Unknown Active No Information erythromycin base Unknown Active No Informa tion Medications Medication Instructions Dosage Effective Dates (start - stop) Status Comments PREDNISONE (unknown strength) Not Available - Active ASPIRIN (unknown strength) Not Available - Active CLARITIN (unknown strength) Not Available - Active GABAPENTIN (unknown strength) Not Available - Active LISINOPRIL (unknown strength) Not Available - Active PRILOSEC OTC (unknown strength) Not Available - Active REPATHA SURECLICK (unknown strength) Not Available - Active SALAGEN (unknown strength) Not Available - Active SPIRONOLACTONE (unknown strength) Not Available - Active SYNTHROID (unknown strength) Not Available - Active TYLENOL ARTHRITIS (unknown strength) Not Available - Active VITAMIN D3 (unknown strength) Not Available - Active ZANTAC (unknown strength) Not Available - Active ZETIA (unknown strength) Not Available - A ctive ZOFRAN (unknown strength) Not Available - Active Procedures Procedure Date Office/Outpatient Visit,Est, Mod 2017 Office/Outpatient Visit,New, Mod 2017 X-Ray Exam Lwr Spine, Min 4 Views Advance Directives Directive Yes / No Effective Date File Name No Information Encounters Encounter Description Practice Location Reason(s) For Visit Diagnoses Date Provider Providers Copied on Encounter Office/Outpat ient Visit,Est, Mod [facility], [address], [place], [id number], [place] tel:[phone] [facility] Spinal stenosis, lumbar region with neurogenic claudication Reina guzmán [facility], [address] [place] [address], [address], [place], [place], [address], [place]. tel:[phone] Referring Provider: Mauricio Weston, [address], [address]. tel:[phone] Office/Outpat ient Visit,New, Mod [facility], [address], [place], [place], [id number], [place] tel:[phone] [facility] Spondylolisthe sis, lumbosacral regionSpinal stenosis, lumbosacral region Kalen Mishra. [facility], [address] [place] [address] [address], [facility] [place], [address], [place]. tel:[phone] Referring Provider: Mauricio Weston, [address], [address]. tel:[phone] Family History Family Member Type Diagnosis Age At Onset No Information Payers Payer name Insurance type Covered alliance party ID [place] [id number] [facility] [id number] Social History Type Description Quantity Date Captured Comments Alcohol Use Details Unknown Caffeine Use Details Unknown Tobacco Use Status Never smoked tobacco 2017 Smoking Status Never smoker Sex Female Vital Signs Date / Time: Height Weight BMI Pulse Rate Blood Pressure Temperature Respiratory Rate Body Surface Area Head Circumference Head Circ. Percentile Wt./Jabari. Percentile BMI percentile Pulse Ox Inhaled Ox 9:49 AM 60.50 in 87.997 kg (194.00 lbs) 37.2 6 kg/m eter (2) 83 /min 143/73 mm[Hg] Chief Complaint And Reason For Visit No Information Reason For Referral Reason For Referral No Information Plan Of Treatment Date Type Action Status Future Order: Radiology Order AP -Rmy-Rhmt-Kvp Lum ([id number]), Ordered on: Ordered History Of Present Illness Encounter Date Complaint History Of Prese nt Illness No Information Functional Status Date Functional Assessmen t No Information Instructions Date Instruction Additional Infor mation No Information Assessments Type Assessment Date No Information Patient Care Teams Name Effective Dates (start - stop) Status Members No Information
== END 2022-11-12 13:40 | disposition home or self-care (01) ==
LOC: ED 13:09
PROVIDERS: Emergency Provider Emergency Medicine Emergency Medical Services; PCP Family Medicine
DX: M32.9 Systemic lupus erythematosus, unspecified (principal)
CPT/HCPCS: 99283; 99284; J1100

== ENCOUNTER 2022-11-14 06:19 | Emergency (ER) | payer MEDICARE, BC, SELFPAY ==
[2022-11-14 06:31] VITALS: BP 191/87; PULSE 83; RESP 20; TEMP 36.6; O2SAT 97
--- NOTE | 2022-11-14 06:49 | CRLHL7_ITS ---
For Patients: As a result of the Cures Act, medical imaging exams and procedure reports are released immediately into your electronic medical record. You may view this report before your referring provider. If you have questions, please contact your health care provider. INDICATION: Chronic neck pain. No injury. New C5-6 radiculopathy on the left. TECHNIQUE: Three images of the cervical spine. COMPARISON: None. FINDINGS: Advanced disc degeneration from C3-C7. Degenerative 4 mm C3 anterior subluxation. Facet degenerative changes ranging from mild to advanced. No curvature abnormality. IMPRESSION: Multilevel spondylosis, as above. Dictated by Silviano Perez MD @ 11/14/2022 8:00:40 AM (Electronically Signed)
--- NOTE | 2022-11-14 06:49 | CRLHL7_ITS ---
For Patients: As a result of the Cures Act, medical imaging exams and procedure reports are released immediately into your electronic medical record. You may view this report before your referring provider. If you have questions, please contact your health care provider. INDICATION: Chronic left shoulder pain. No injury. TECHNIQUE: Three views of the left shoulder. COMPARISON: None. FINDINGS: No joint space narrowing, erosive change, abnormal soft tissue calcification or other abnormality. IMPRESSION: Negative left shoulder. Dictated by Silviano Perez MD @ 11/14/2022 7:58:49 AM (Electronically Signed)
--- OUTSIDE RECORDS SUMMARY | 2022-11-14 06:55 | XMS_ITS | Continuity of Care Document ---
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 [address] [facility], [facility] [address], [place], [place], [id number], [place]. tel:[phone] Family History Family Member Type Diagnosis Age At Onset No Information Payers Payer name Insurance type Covered libertarian ID Authoriza tion(s) No Information Social History [...]
--- OUTSIDE RECORDS SUMMARY | 2022-11-14 06:55 | XMS_ITS | Continuity of Care Document ---
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 Name Role Phone Lemuel Huang MD Unavailable Unavailab le Allergies, Adverse Reactions, Alerts Substance Reaction Status Criticality diltiazem Unknown Active No Information hydralazine Unknown Active No Information duloxetine Unknown Active No Information hydrochlorothiazide Unknown Active No Infor mation Lncrvey-JOT-DnI Reductase Inhibitors Unknown Acti ve No Information [...] [facility], [address], [place], [id number], [place] tel:[phone] [facility] Spinal stenosis, lumbar region with neurogenic claudication Reina guzmán [facility], [address] [place] [address], [address], [place], [place], [id number], [place]. tel:[phone] Referring Provider: Mauricio Weston, [address], [address]. tel:[phone] Office/Outpat ient Visit,New, [facility], [address], [place], [place], [id number], [place] tel:[phone] [facility] Spondylolisthe sis, lumbosacral regionSpinal stenosis, lumbosacral region Kalen Mishra. [facility], [address] [place] [address] [address], [facility] [place], [address], [place]. tel:[phone] Referring Provider: Mauricio Weston, [address], [address]. tel:[phone] Family History Family Member Type Diagnosis Age At Onset No Information Payers Payer name Insurance type Covered democrat ID [id number] tipa[place]) [place] [id number] [facility] [id number] Social History Type Description Quantity Date Captured [...] Action Status Future Order: Radiology Order AP -Eng-Mgut-Wbv Lum (APLatFlExL), Ordered on: Ordered History Of Present Illness Encounter Date Complaint History Of Prese nt Illness No Information Functional Status Date Functional Assessmen t No Information Instructions Date Instruction Additional Infor mation No Information Assessments Type Assessment Date No Information Patient Care Teams Name Effective Dates (start - stop) Status Members No Information
[2022-11-14] MEDS: LIDOCAINE 5% PATCH 1 PATCH TRANSDERMA (07:11)
[2022-11-14] MEDS: CYCLOBENZAPRINE HCL 10 MG TABLET PO (07:11)
--- NOTE | 2022-11-14 07:16 | ED_ITS ---
HPI - General Adult General Chief complaint: Shoulder Injury/Pain Stated complaint: Upper back/L arm pain Time Seen by Provider: 11/14/22 06:37 Source: patient Mode of arrival: ambulatory History of Present Illness HPI narrative: 59-year-old female with known history of lupus and rheumatoid arthritis presents the emergency department for evaluation of ongoing left shoulder and left posterior neck pain. No trauma or injury. She was evaluated 2 days ago, notes reviewed. At that time no x-rays or other imaging was performed nor indicated. She was started on Medrol Dosepak after she was given a bolus dose of dexamethasone. She is frustrated that this is not helping. This is an ongoing issue. She says that her pain is been worsening since August. She saw her flake miller wheat and oats in her immunosuppressant was discontinued because she was having what sounds like recurrent infections. She was also recommended to start some sort of osteoporosis medication. She received 1 month of those injections and declined to have any more of them. She thinks that they may be worsening her pain. She is not having any fever. She continues to take her baseline doses of prednisone. She has an appointment tomorrow with her primary care doctor to discuss this further. She is not having any new significant change that brings her to the emergency department in the wee hours this morning. There was no new injury or trauma, no fever, no numbness or tingling, no loss of function. She has no rash. Prior notes are reviewed. Pain is achy and constant, it does seem a little worse at night. It radiates from the left posterior scapular border down the left arm and shoulder and into the dorsum of the left hand. No weakness. Denies any recent injections. No recent imaging of her shoulder or neck. Has known arthritis in both of these sites. Has been taking the steroids as prescribed. She says that she does not respond to narcotic medications. She adamantly did declines gabapentin to me. When I bring up multiple other medications she shoots these all down very quickly, frustrated that I do not know her extensive medical history never having met her. Prior medications, prior visit reviewed. Allergy list extensive, reviewed. ROS is notable for the musculoskeletal and neurological symptoms as described above, denies any other musculoskeletal, neurological, skin, generalized concerns today. Related Data Home Medications Medication Instructions Recorded Confirmed CBD Oil sublingual 11/17/21 10/18/22 aspirin 81 mg chewable tablet 81 mg PO QDAY 11/17/21 10/18/22 (Aspirin Childrens) magnesium oxide 400 mg (241.3 mg 400 mg PO QDAY 11/17/21 10/18/22 magnesium) tablet Electrolytes PO 12/09/21 10/18/22 mycophenolate mofetil 500 mg tablet 500 mg PO BID 02/15/22 10/18/22 alirocumab 75 mg/mL subcutaneous 75 mg subcut Q2W 03/09/22 10/18/22 pen injector (Praluent Pen) hydrocortisone 2.5 % topical cream 1 applic topical QDAY PRN 03/09/22 10/18/22 naltrexone 5.5mg PO .ud 07/27/22 10/18/22 prednisolone acetate 1 % eye 1 drp ophthalmic (eye) QID 07/27/22 10/18/22 drops,suspension prednisone 5 mg tablet 5 mg PO Q OTHER DAY 07/27/22 10/18/22 Previous Rx's Medication Instructions Recorded meloxicam 15 mg tablet 15 mg PO QDAY #90 tabs 01/14/22 lisinopril 40 mg tablet 40 mg PO QDAY #90 tabs 05/06/22 ezetimibe 10 mg tablet 10 mg PO QDAY #90 tabs 06/30/22 doxazosin 2 mg tablet 2 mg PO QDAY #90 tabs 07/05/22 prednisone 10 mg tablet 10 mg PO Q OTHER DAY #90 tabs 10/08/22 ondansetron HCl 4 mg tablet 4 mg PO Q6H PRN nausea and 11/08/22 vomiting #30 tabs methylprednisolone 4 mg tablets in See Rx Instructions PO .COMPLEX 11/12/22 a dose pack (Medrol (Art)) #21 ea cyclobenzaprine 5 mg tablet 5 - 10 mg (1 - 2 x 5 mg) PO TID 11/14/22 PRN muscle spasm #30 tabs gabapentin 300 mg capsule 300 mg PO BID PRN Nerve pain #30 11/14/22 caps lidocaine 5 % topical patch 1 patch topical DAILY PRN #15 ea 11/14/22 (Lidoderm) Allergies Allergy/AdvReac Type Severity Reaction Status Date / Time atenolol Allergy Severe Verified 10/18/22 08:54 belimumab Allergy Severe Rash Verified 10/18/22 08:54 fentanyl Allergy Severe Cardiac Verified 10/18/22 08:54 Arrest infliximab [From Remicade] Allergy Severe Anaphylaxis Verified 10/18/22 08:54 alendronate sodium Allergy Mild stomach Verified 10/18/22 08:54 pain amitriptyline Allergy Mild Unknown Verified 10/18/22 08:54 buprenorphine Allergy Mild didn't help Verified 10/18/22 08:54 gabapentin Allergy Mild stomach Verified 10/18/22 08:54 issues amoxicillin Allergy Unknown Unknown Verified 10/18/22 08:54 diltiazem Allergy Unknown Unknown Verified 10/18/22 08:54 duloxetine Allergy Unknown Unknown Verified 10/18/22 08:54 erythromycin base Allergy Unknown Unknown Verified 10/18/22 08:54 hydralazine Allergy Unknown Unknown Verified 10/18/22 08:54 hydrochlorothiazide Allergy Unknown unknown Verified 10/18/22 08:54 hydroxychloroquine Allergy Unknown Unknown Verified 10/18/22 08:54 Rdzcocb-HES-FnH Reductase Allergy Unknown Unknown Verified 10/18/22 08:54 Inhibitor tetracycline Allergy Unknown Unknown Verified 10/18/22 08:54 venlafaxine Allergy Unknown Unknown Verified 10/18/22 08:54 plavix Allergy Intermediate Uncoded 10/18/22 08:54 diltiazem Allergy Mild Uncoded 10/18/22 08:54 wellbutrin Allergy Mild hazy Uncoded 10/18/22 08:54 HMG-CoA reductase inhibitor Allergy Unknown Uncoded 10/18/22 08:54 PFSH PFSH Medical History Chronic sinus infection ?J32.9 - Chronic sinusitis, unspecified (ICD-10) DJD (degenerative joint disease), lumbosacral ?M47.817 - Spondylosis without myelopathy or radiculopathy, lumbosacral region (ICD-10) Sjogren's syndrome (2013) ?M35.00 - Sjogren syndrome, unspecified (ICD-10) Positive antinuclear antibody (07/21/11) ?R76.8 - Other specified abnormal immunological findings in serum (ICD-10) Peripheral vascular disease ?I73.9 - Peripheral vascular disease, unspecified (ICD-10) Osteoporosis ?M81.0 - Age-related osteoporosis without current pathological fracture (ICD- 10) Obstructive sleep apnea syndrome (03/23/18) ?G47.33 - Obstructive sleep apnea (adult) (pediatric) (ICD-10) Hypothyroidism (06/30/17) ?E03.9 - Hypothyroidism, unspecified (ICD-10) Hypertension (08/23/11) ?I10 - Essential (primary) hypertension (ICD-10) Hyperlipidemia ?E78.5 - Hyperlipidemia, unspecified (ICD-10) History of lichen planus ?Z87.2 - Personal history of diseases of the skin and subcutaneous tissue (ICD-10) History of colonic polyps ?Z86.010 - Personal history of colonic polyps (ICD-10) History of basal cell carcinoma (BCC) ?Z85.828 - Personal history of other malignant neoplasm of skin (ICD-10) Generalized anxiety disorder (06/20/14) ?F41.1 - Generalized anxiety disorder (ICD-10) Fibromyalgia (2012) ?M79.7 - Fibromyalgia (ICD-10) Deafness in left ear (11/20/15) ?H91.92 - Unspecified hearing loss, left ear (ICD-10) Cerebral aneurysm (08/28/16) ?I67.1 - Cerebral aneurysm, nonruptured (ICD-10) Bilateral carotid artery stenosis ?I65.23 - Occlusion and stenosis of bilateral carotid arteries (ICD-10) Adjustment disorder with depressed mood (04/09/07) ?F43.21 - Adjustment disorder with depressed mood (ICD-10) Surgical History History of sinus surgery ?Z98.890 - Other specified postprocedural states (ICD-10) History of repair of right rotator cuff (2006) ?Z98.890 - Other specified postprocedural states (ICD-10) History of intravascular stent placement (05/2017) ?Z95.828 - Presence of other vascular implants and grafts (ICD-10) History of hysterectomy (1994) ?Z90.710 - Acquired absence of both cervix and uterus (ICD-10) History of section (1975) ?Z98.891 - History of uterine scar from previous surgery (ICD-10) History of cataract extraction ?Z98.49 - Cataract extraction status, unspecified eye (ICD-10) History of carotid endarterectomy (2009) ?Z98.890 - Other specified postprocedural states (ICD-10) Family History Sister Breast cancer Diabetes Mother Stroke Heart disease Father Prostate cancer Diabetes Daughter Diabetes Family/Other Breast cancer Social History Narrative: Medical marijuana use- onset 07/24/18 Single, no kids, 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, smoker, no EtOH Smoking Status: Current every day smoker How often do you have a drink containing alcohol: never AUDIT-C Alcohol total score: 0 Non-prescribed substance use: denies use Little interest or pleasure in doing things: several days Feeling down, depressed, or hopeless: several days Exam Const: Vital Signs, click to edit/add: Vital Signs - 24 hr 11/14/22 06:31 Temperature 97.8 F Pulse Rate [Left P ulse Oximeter] 83 Respiratory Rate 20 Blood Pressure [Ri ght Upper Arm] 191/87 H Pulse Oximetry 97 Oxygen Delivery Me thod Room Air Documenting provider has reviewed patient's vital signs: yes General appearance: well kempt Other: Does appear to be in pain. Appears frail for age. Well-nourished and well- hydrated. HENMT: Common normals: normocephalic and head/scalp atraumatic Head and scalp: normocephalic and atraumatic Other: Acyanotic lips with moist membranes. Eye: General eye: normal appearance of both eyes Other: Normal eye contact and visual gaze. Neck & C-Spine: Other: Loss of cervical lordosis noted. Tenderness to palpation of lateral left C5-6 area. Pain is worse with spondylosis testing. No step-offs or posterior midline tenderness. Pain is a little bit improved by hyperflexion and worsened by extension. Resp: Common normals: normal respiratory effort Effort & inspection: able to speak in complete sentences Extremity: Other: Shoulder has reduced range of motion on left side as compared to right but no obvious effusion, warmth or redness. Impingement signs are not overly strong. She does have tenderness to range of motion in most directions. Hands and wrists exhibit arthritic changes but no redness, effusion or signs of trauma. Sensation intact in the forearm, wrist and hand. Psych: Appearance: well kempt Activity/motor behavior: appropriate eye contact Insight: insight good Judgement: fair Skin: Common normals: no rashes or lesions noted General skin exam: no rashes or lesions noted Course Course Hospital Course: Patient with frustration of chronic pain without signs of new injury, trauma, infection or emergent type presentation. I think that she could benefit from continuing on her steroid for a few more days and waiting to see how this helps. She declines my recommendation for gabapentin. Almost every other medication I would try she claims to be allergic to. I recommended a trial of a muscle relaxant like Flexeril and a Lidoderm patch. She will require prior authorization most likely if she would like to continue on the Lidoderm patches in this would need to come to her primary care provider. She does have an appointment scheduled for tomorrow. Am having a hard time understanding what s he is hoping we could do in the emergency department for this chronic issue. I do recommend x-rays of the shoulder and neck to evaluate for pathological fracture in the setting of her osteoporosis. She was agreeable to this. I am expecting to find extensive arthritis. Reevaluation(s) Time of Reevaluation #1: 08:07 Reevaluation #1: X-ray findings reviewed with patient. Significant degenerative arthritis of the neck. Suspect cervical radiculopathy as etiology of her pain. Discussed. We extensively discussed the risks and benefits of trying some of the medicines she has previously been intolerant of. She was agreeable to trying gabapentin, Lidoderm patch and Flexeril at my recommendation. Initial dose of each of these was given. Discussed with patient that I do expect that the steroids will kick in for her. They need a couple more days. If things are not starting to improve in 2 more days, she should ask her primary care doctor at her upcoming appointment about an MRI. She may also benefit from physical therapy if she is willing to do this. I cannot exclude a fracture but 1 was not seen on x-ray am with no mechanism that would be suspicious for fracture, I do not recommend pursuing this is our primary agent. With focus on pain control. See discharge instructions. All questions answered. Vital Signs Vital signs: Initial Vital Signs Temperature 97.8 F 11/14/22 06:31 Temperature Source Temporal Artery Scan 11/14/22 06:31 Pulse Rate 83 11/14/22 06:31 Respiratory Rate 20 11/14/22 06:31 Blood Pressure 191/87 H 11/14/22 06:31 Blood Pressure Mean 121 H 11/14/22 06:31 Blood Pressure Position Supine 11/14/22 06:31 Pulse Oximetry 97 11/14/22 06:31 Oxygen Delivery Method Room Air 11/14/22 06:31 Vital Signs Temperature 97.8 F 11/14/22 06:31 Pulse Rate 83 11/14/22 06:31 Respiratory Rate 20 11/14/22 06:31 Blood Pressure 191/87 H 11/14/22 06:31 Pulse Oximetry 97 11/14/22 06:31 Oxygen Delivery Method Room Air 11/14/22 06:31 Temperature 97.8 F 11/14/22 06:31 Pulse Rate 83 11/14/22 06:31 Respiratory Rate 20 11/14/22 06:31 Blood Pressure 191/87 H 11/14/22 06:31 Pulse Oximetry 97 11/14/22 06:31 Oxygen Delivery Method Room Air 11/14/22 06:31 Medical Decision Making Imaging Data Shoulder x-ray: Attestation: I have reviewed the pertinent imaging results. My impression: Arthritis but not overwhelming. I do not think this is the source of her pain Radiologist's impression: FINDINGS: No joint space narrowing, erosive change, abnormal soft tissue calcification or other abnormality. IMPRESSION: Negative left shoulder. Cervical spine x-ray: Attestation: I have reviewed the pertinent imaging results. My impression: Advanced degenerative disease, no obvious fracture Radiologist's impression: FINDINGS: Advanced disc degeneration from C3-C7. Degenerative 4 mm C3 anterior subluxation. Facet degenerative changes ranging from mild to advanced. No curvature abnormality. IMPRESSION: Multilevel spondylosis, as above. Discharge Plan Discharge Clinical Impression: Cervical radiculopathy Patient Disposition: Home, Self-Care Condition: Stable Instructions: Chronic Neck Pain (DC) Additional Instructions: As we discussed, there certainly is some arthritis in your shoulder on x-ray but I do not think that it is the main reason for your pain. I believe that the pain is mainly coming from your neck and radiating down the arm because the arthritis is pressing on those nerves. The most problematic area that I can see is C5-C6 which is also the most common area of problem. I do think that the steroids will help but need a couple more days. Please continue taking these as prescribed. Continue Tylenol 1000 mg every 6 hours for pain. Unfortunately, you are allergic to, intolerant of or have not had success with almost all of the pain medication regimen that I am familiar with. Together, we discussed that some of the side effects of the medicines you have tried in the past may be worth trying again since you are so miserable. My best recommendation is gabapentin. I recommend you start with this just at bedtime but you may increase it to twice daily if you find it helpful. I will also give you some Flexeril which is a muscle relaxant. It may cause drowsiness. You may take 1-2 tablets up to 3 times daily. I will also give you prescription for Lidoderm patches, the numbing patches that I applied in the emergency room. I hope these are helpful for you. Your insurance may require prior authorization. If it does, this will need to come from her primary care doctor. Keep the 1 that I have applied today on for the 1st 24 hours to see if this is helpful. If it is not helpful, you do not need to fill the prescription for these. Keep your appointment tomorrow to discuss this further with her primary care provider. If things are not improving in a couple more days, I would recommend an MRI of your neck to look more closely at the area of arthritis and see if he would be a candidate for injections. Activity Level: Activity as Tolerated Discharge Diet: Regular Prescriptions: New cyclobenzaprine 5 mg tablet 5 - 10 mg PO TID PRN (Reason: muscle spasm) Qty: 30 0RF gabapentin 300 mg capsule 300 mg PO BID PRN (Reason: Nerve pain) Qty: 30 0RF lidocaine [Lidoderm] 5 % adhesive patch,medicated 1 patch topical DAILY PRNQty: 15 0RF Rx Instructions: leave on most painful area for up to 12 hrs No Action Electrolytes PO Praluent Pen 75 mg/mL pen injector 75 mg subcut Q2W Patient Comments: INJECT 75MG SUBCUTANEOUSLY EVERY 2 WEEKS hydrocortisone 2.5 % cream 1 applic topical QDAY PRN doxazosin 2 mg tablet 2 mg PO QDAY Qty: 90 1RF magnesium oxide 400 mg (241.3 mg magnesium) tablet 400 mg PO QDAY CBD Oil sublingual aspirin [Aspirin Childrens] 81 mg tablet,chewable 81 mg PO QDAY mycophenolate mofetil 500 mg tablet 500 mg PO BID Patient Comments: TAKE ONE TABLET BY MOUTH TWICE A DAY prednisone 5 mg tablet 5 mg PO Q OTHER DAY Rx Instructions: Opposite 10mg days prednisolone acetate 1 % drops,suspension 1 drp ophthalmic (eye) QID naltrexone 5.5mg PO .ud Patient Comments: 4.5 mg PM and 1mg AM methylprednisolone [Medrol (Art)] 4 mg tablets,dose pack See Rx Instructions .ROUTE .COMPLEX Qty: 21 0RF Rx Instructions: orally per package directions meloxicam 15 mg tablet 15 mg PO QDAY Qty: 90 3RF lisinopril 40 mg tablet 40 mg PO QDAY Qty: 90 3RF ezetimibe 10 mg tablet 10 mg PO QDAY Qty: 90 3RF Patient Comments: TAKE ONE TABLET BY MOUTH EVERY DAY prednisone 10 mg tablet 10 mg PO Q OTHER DAY Qty: 90 1RF Rx Instructions: opposite 5mg days ondansetron HCl 4 mg tablet 4 mg PO Q6H PRN (Reason: nausea and vomiting) Qty: 30 1RF Follow Up/Referrals: Dalton Esqueda MD [Primary Care Provider] - Stand Alone [facility]: [facility] Inst[facility]
== END 2022-11-14 08:18 | disposition home or self-care (01) ==
PROVIDERS: Emergency Provider Family Medicine; PCP Family Medicine
DX: M54.12 Radiculopathy, cervical region (principal)
CPT/HCPCS: 72040; 73030; 99284; A9270

== ENCOUNTER 2022-11-29 22:38 | Emergency (ER) | payer MEDICARE, BC, SELFPAY ==
[2022-11-29 22:48] VITALS: BP 93/63; PULSE 109; RESP 18; TEMP 36.6; O2SAT 97; BMI 18.3
[2022-11-30 00:03] LABS: Lactate* 0.9 mmol/L (0.5-1.9)
[2022-11-30 00:04] LABS: Basophils Percent Auto 0.1 % (0.0-3.0); Eosinophils Percent Auto 0.1 % (0.0-7.0); Immature Granulocytes Pct Auto 1.5 %; Lymphocytes Percent Auto 11.2 % (20-44); Mean Corpuscular HGB Conc 34 gm/dL (32-36); Mean Corpuscular Hemoglobin 31 pg (26-34); Mean Corpuscular Volume 91 fL (80-100); Monocytes Percent Auto 7.7 % (0.0-11.0); Neutrophils Percent Auto 79.4 % (42.0-72.0); Platelet Count* 367 K/uL (140-440); RDW Coefficient of Variation % 14.7 % (11.5-15.5); Red Blood Count 4.16 m/uL (4.00-5.20); White Blood Count* 13.36 K/uL (4.50-11.00)
[2022-11-30 00:08] LABS: Slide Review Reflex No
--- NOTE | 2022-11-30 00:13 | CRLHL7_ITS ---
For Patients: As a result of the Century Cures Act, medical imaging exams and procedure reports are released immediately into your electronic medical record. You may view this report before your referring provider. If you have questions, please contact your health care provider. INDICATION: nausea, abdominal pain, back pain, vomiting since Tuesday TECHNIQUE: CT abdomen and pelvis acquired with 54 cc Isovue 370 IV contrast. Permanently recorded images are archived. COMPARISON: CT abdomen and pelvis 07/30/2022 FINDINGS: Lower chest: Unremarkable. Liver: Unchanged 3 mm intrahepatic biliary ductal stone without significant biliary obstruction. No suspicious mass. Normal size and attenuation. Gallbladder and bile ducts: Unremarkable. No stones or inflammation. No biliary dilatation. Pancreas: Unremarkable. No mass or inflammation. Spleen: Unremarkable. Normal in size. No masses. Adrenal glands: Unremarkable. No nodules. Kidneys, Ureters, and Bladder: Unremarkable. No suspicious masses, stones, or hydronephrosis. Unremarkable ureters and bladder. GI tract: Thickening of the gastric antrum. Normal in caliber. No sign of inflammation. The appendix is not clearly visualized; however, there are no inflammatory changes in the right lower quadrant. Vasculature: Severe atherosclerotic calcification of the abdominal aorta and common iliac arteries. Mesenteric arteries are patent. Lymph nodes: No lymphadenopathy. Peritoneum/Abdominal Wall: Unremarkable. No free air or significant free fluid. Pelvis: Status post hysterectomy. Bones: Grade 1 anterolisthesis of L5 on S1 secondary to facet arthrosis. Otherwise, unremarkable for age. IMPRESSION: Thickening of the gastric antrum. This could represent peristalsis or gastritis. Otherwise, no acute findings within the abdomen and pelvis. Unchanged 3 mm intrahepatic biliary ductal stone without significant biliary obstruction. Severe atherosclerotic disease of the abdominal aorta and common iliac arteries. Please note that all CT scans at this facility use dose modulation, iterative reconstruction, and/or weight-based dosing when appropriate to reduce radiation dose to as low as reasonably achievable. Dictated by Carlo Saravia MD @ 11/30/2022 1:52:36 AM (Electronically Signed)
--- NOTE | 2022-11-30 00:14 | ED.GENADULT ---
HPI - General Adult General Chief complaint: Abdominal Pain Stated complaint: Stomach issues Time Seen by Provider: 11/29/22 23:57 Source: patient Mode of arrival: ambulatory Limitations: no limitations History of Present Illness HPI narrative: 67-year-old female with multiple medical problems presents the emergency department with 3 days of abdominal pain, diffuse. Pain is nonlocalized, constant. Accompanied by anorexia for the past 3 days and vomiting for 3 days. Unable to hold down any food. Last bowel movement was earlier today per her report, uncomplicated. No blood in her stools, no hematemesis. Has tried taking a hot bath with no improvement in symptoms. Has not tried any [id number] medications. She has recently been on steroids and a few medications to treat radicular pain and shingles. Is no longer using these. Lower abdomen has felt distended for the past 3 days. She does have a history of prior abdominal surgeries including 1 prior and hysterectomy. She had an appendectomy at the time of her hysterectomy. Denies other abdominal surgeries. No fevers. No gynecological changes. No hematuria or dysuria. She believes her symptoms may have started after eating turkey that she believes could have been fried in peanut oil. She tells me that she is allergic to peanuts. She has many allergies. Recent ED an outpatient notes reviewed. Past medical history mostly notable for lupus, arthritis associated with this and anxiety disorders. She is a former smoker and is on immunosuppressants for her lupus. Prior abdominal surgeries as above. Also reports a history of ?fungal gut infections?. Related Data Home Medications Medication Instructions Recorded Confirmed CBD Oil sublingual 11/17/21 11/15/22 aspirin 81 mg chewable tablet 81 mg PO QDAY 11/17/21 11/15/22 (Aspirin Childrens) magnesium oxide 400 mg (241.3 mg 400 mg PO QDAY 11/17/21 10/18/22 magnesium) tablet Electrolytes PO 12/09/21 11/15/22 mycophenolate mofetil 500 mg tablet 500 mg PO BID 02/15/22 11/15/22 alirocumab 75 mg/mL subcutaneous 75 mg subcut Q2W 03/09/22 11/15/22 pen injector (Praluent Pen) hydrocortisone 2.5 % topical cream 1 applic topical QDAY PRN 03/09/22 11/15/22 naltrexone 5.5mg PO .ud 07/27/22 11/15/22 prednisolone acetate 1 % eye 1 drp ophthalmic (eye) QID 07/27/22 11/15/22 drops,suspension nystatin 500,000 unit tablet 1,000,000 unit PO BID 11/15/22 11/15/22 Previous Rx's Medication Instructions Recorded meloxicam 15 mg tablet 15 mg PO QDAY #90 tabs 01/14/22 lisinopril 40 mg tablet 40 mg PO QDAY #90 tabs 05/06/22 ezetimibe 10 mg tablet 10 mg PO QDAY #90 tabs 06/30/22 doxazosin 2 mg tablet 2 mg PO QDAY #90 tabs 07/05/22 prednisone 10 mg tablet 10 mg PO Q OTHER DAY #90 tabs 10/08/22 ondansetron HCl 4 mg tablet 4 mg PO Q6H PRN nausea and 11/08/22 vomiting #30 tabs methylprednisolone 4 mg tablets in See Rx Instructions PO .COMPLEX 11/12/22 a dose pack (Medrol (Art)) #21 ea cyclobenzaprine 5 mg tablet 5 mg PO TID PRN muscle spasm #90 11/15/22 tabs lidocaine 5 % topical patch 1 patch topical DAILY #30 ea 11/15/22 (Lidoderm) pregabalin 75 mg capsule (Lyrica) 75 mg PO BID #60 caps 11/15/22 famotidine 20 mg tablet 20 mg PO BID 2 weeks #28 tabs 11/30/22 ondansetron 4 mg disintegrating 4 mg PO Q8H PRN nausea and 11/30/22 tablet vomiting #10 tabs sucralfate 1 gram tablet (Carafate) 1 g PO BID #10 tabs 11/30/22 Allergies Allergy/AdvReac Type Severity Reaction Status Date / Time atenolol Allergy Severe Verified 11/30/22 01:07 belimumab Allergy Severe Rash Verified 11/30/22 01:07 fentanyl Allergy Severe Cardiac Verified 11/30/22 01:07 Arrest infliximab [From Remicade] Allergy Severe Anaphylaxis Verified 11/30/22 01:07 alendronate sodium Allergy Mild stomach Verified 11/30/22 01:07 pain amitriptyline Allergy Mild Unknown Verified 11/30/22 01:07 buprenorphine Allergy Mild didn't help Verified 11/30/22 01:07 gabapentin Allergy Mild stomach Verified 11/30/22 01:07 issues amoxicillin Allergy Unknown Unknown Verified 11/30/22 01:07 diltiazem Allergy Unknown Unknown Verified 11/30/22 01:07 duloxetine Allergy Unknown Unknown Verified 11/30/22 01:07 erythromycin base Allergy Unknown Unknown Verified 11/30/22 01:07 hydralazine Allergy Unknown Unknown Verified 11/30/22 01:07 hydrochlorothiazide Allergy Unknown unknown Verified 11/30/22 01:07 hydroxychloroquine Allergy Unknown Unknown Verified 11/30/22 01:07 [id number]-[id number] Reductase Allergy Unknown Unknown Verified 11/30/22 01:07 Inhibitor tetracycline Allergy Unknown Unknown Verified 11/30/22 01:07 venlafaxine Allergy Unknown Unknown Verified 11/30/22 01:07 plavix Allergy Intermediate Uncoded 11/30/22 01:07 diltiazem Allergy Mild Uncoded 11/30/22 01:07 wellbutrin Allergy Mild hazy Uncoded 11/30/22 01:07 HMG-CoA reductase inhibitor Allergy Unknown Uncoded 11/30/22 01:07 [facility] Medical History Chronic sinus infection ?J32.9 - Chronic sinusitis, unspecified (ICD-10) DJD (degenerative joint disease), lumbosacral ?M47.817 - Spondylosis without myelopathy or radiculopathy, lumbosacral region (ICD-10) Sjogren's syndrome (2013) ?M35.00 - Sjogren syndrome, unspecified (ICD-10) Positive antinuclear antibody (07/21/11) ?R76.8 - Other specified abnormal immunological findings in serum (ICD-10) Peripheral vascular disease ?I73.9 - Peripheral vascular disease, unspecified (ICD-10) Osteoporosis ?M81.0 - Age-related osteoporosis without current pathological fracture (ICD-10) Obstructive sleep apnea syndrome (03/23/18) ?G47.33 - Obstructive sleep apnea (adult) (pediatric) (ICD-10) Hypothyroidism (06/30/17) ?E03.9 - Hypothyroidism, unspecified (ICD-10) Hypertension (08/23/11) ?I10 - Essential (primary) hypertension (ICD-10) Hyperlipidemia ?E78.5 - Hyperlipidemia, unspecified (ICD-10) History of lichen planus ?Z87.2 - Personal history of diseases of the skin and subcutaneous tissue (ICD-10) History of colonic polyps ?Z86.010 - Personal history of colonic polyps (ICD-10) History of basal cell carcinoma (BCC) ?Z85.828 - Personal history of other malignant neoplasm of skin (ICD-10) Generalized anxiety disorder (06/20/14) ?F41.1 - Generalized anxiety disorder (ICD-10) Fibromyalgia (2012) ?M79.7 - Fibromyalgia (ICD-10) Deafness in left ear (11/20/15) ?H91.92 - Unspecified hearing loss, left ear (ICD-10) Cerebral aneurysm (08/28/16) ?I67.1 - Cerebral aneurysm, nonruptured (ICD-10) Bilateral carotid artery stenosis ?I65.23 - Occlusion and stenosis of bilateral carotid arteries (ICD-10) Adjustment disorder with depressed mood (04/09/07) ?F43.21 - Adjustment disorder with depressed mood (ICD-10) Surgical History History of sinus surgery ?Z98.890 - Other specified postprocedural states (ICD-10) History of repair of right rotator cuff (2006) ?Z98.890 - Other specified postprocedural states (ICD-10) History of intravascular stent placement (05/2017) ?Z95.828 - Presence of other vascular implants and grafts (ICD-10) History of hysterectomy (1994) ?Z90.710 - Acquired absence of both cervix and uterus (ICD-10) History of section (1975) ?Z98.891 - History of uterine scar from previous surgery (ICD-10) History of cataract extraction ?Z98.49 - Cataract extraction status, unspecified eye (ICD-10) History of carotid endarterectomy (2009) ?Z98.890 - Other specified postprocedural states (ICD-10) Family History Sister Breast cancer Diabetes Mother Stroke Heart disease Father Prostate cancer Diabetes Daughter Diabetes Family/Other Breast cancer Social History Narrative: Medical marijuana use- onset 07/24/18 Single, no kids, 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, smoker, no EtOH Smoking Status: Current every day smoker How often do you have a drink containing alcohol: never AUDIT-C Alcohol total score: 0 Non-prescribed substance use: marijuana (any form) Non-prescribed substance use details: medical Little interest or pleasure in doing things: more than half the days Feeling down, depressed, or hopeless: several days Exam Const: Vital Signs, click to edit/add: Vital Signs - 24 hr 11/29/22 22:48 11/30/22 01:59 Temperature 98 F Pulse Rate [Pulse Oximeter] 109 H 90 Respiratory Rate 18 18 Blood Pressure [Ri ght Upper Arm] 93/63 153/70 H Pulse Oximetry 97 94 Oxygen Delivery Me thod Room Air Room Air Documenting provider has reviewed patient's vital signs: yes Common normals: no apparent distress General appearance: cooperative and well kempt Other: Appears acutely ill. No pallor. Normal capillary refill. Normal mentation. HENMT: Common normals: normocephalic and head/scalp atraumatic Head and scalp: normocephalic and atraumatic Face and sinus: normal facial exam Other: Mucous membranes are slightly dry but otherwise lips are acyanotic with normal oropharynx. Eye: Common normals: EOMs intact bilaterally General eye: normal appearance of both eyes Neck & C-Spine: Common normals: full ROM and no lymphadenopathy Resp: Common normals: normal respiratory effort, no use of accessory muscles and clear to auscultation bilaterally Effort & inspection: able to speak in complete sentences Auscultation: clear to auscultation bilaterally Cardio: Common normals: regular rate, regular rhythm, S1 normal heart sound, S2 normal heart sound and no murmurs Rate: regular rate Rhythm: regular rhythm Heart sounds: S1 normal and S2 normal GI: Other: Lower abdomen does seem a little distended. Prior surgical scarring is consistent with reported history. Bowel sounds are hyperactive throughout, high-pitched and tinkling. They do seem to concentrate in the right lower quadrant. Abdomen is diffusely tender to palpation but no rebound tenderness or guarding. No obvious mass. Thin body habitus does not obscure exam. Liver and spleen are not enlarged. Extremity: Common normals: normal to inspection, normal capillary refill and no pedal edema Psych: Appearance: well kempt Activity/motor behavior: appropriate eye contact Insight: insight good Judgement: judgment good Skin: Narrative: Healing shingles on left arm, C6 distribution Course Course Hospital Course: Mild hypotension tachycardia noted on presentation, cannot exclude sepsis. More likely dehydration. Differential diagnosis also including small-bowel obstruction, pancreatitis, bowel ischemia, gastritis, among others. Recommend we start IV fluids she will receive 1 L normal saline bolus. Small body habitus noted. Basic labs including lactate, CT scan of abdomen and pelvis. Zofran and Dilaudid IV for pain. Suspect small bowel obstruction. Await findings. Reevaluation(s) Time of Reevaluation #1: 02:29 Reevaluation #1: Mild relative hypotension and tachycardia resolved with IV fluid. Patient reports that the pain medications did not help but she does appear more comfortable. She has not vomited during her stay here. Lab studies and CT findings reviewed with patient. Will give 40 of p.o. potassium x1. Counseled on Pepcid, Carafate and Zofran. She has recently been on a prednisone burst but is on a small maintenance dose of prednisone as well. She did use NSAIDs during her course of shingles and when she was having significant neck and arm pain in the past few weeks, now improving. I suspect that the gastritis was nsaid and prednisone induced. Since she did not benefit from pain medication and reports intolerance of basically all of them, I will not prescribe any additional pain medication. Counseled on Tylenol. I would like for her to start famotidine 20 mg twice daily for the next 2 weeks and 5 days of b.i.d. Carafate. She is given a limited supply of Zofran if she continues to have nausea and vomiting. Counseled on bland, soft diet, avoidance of alcohol and carbonated beverages. Follow-up with primary care provider if not improving in a week, consider endoscopy. Alarm symptoms including bloody stools, signs of severe dehydration, weakness etc. were reviewed with patient as indications to come back to ED. She verbalizes understanding and agreement. Vital Signs Vital signs: Initial Vital Signs Temperature 98 F 11/29/22 22:48 Temperature Source Temporal Artery Scan 11/29/22 22:48 Pulse Rate 109 H 11/29/22 22:48 Respiratory Rate 18 11/29/22 22:48 Blood Pressure 93/63 11/29/22 22:48 Blood Pressure Mean 73 11/29/22 22:48 Blood Pressure Position Sitting 11/29/22 22:48 Pulse Oximetry 97 11/29/22 22:48 Oxygen Delivery Method Room Air 11/29/22 22:48 Vital Signs Temperature 98 F 11/29/22 22:48 Pulse Rate 109 H 11/29/22 22:48 Respiratory Rate 18 11/29/22 22:48 Blood Pressure 93/63 11/29/22 22:48 Pulse Oximetry 97 11/29/22 22:48 Oxygen Delivery Method Room Air 11/29/22 22:48 Temperature 98 F 11/29/22 22:48 Pulse Rate 90 11/30/22 01:59 Respiratory Rate 18 11/30/22 01:59 Blood Pressure 153/70 H 11/30/22 01:59 Pulse Oximetry 94 11/30/22 01:59 Oxygen Delivery Method Room Air 11/30/22 01:59 Medical Decision Making Lab Data Lab results reviewed: Yes I reviewed the patient's lab results Lab results narrative: Mild leukocytosis, not uncommon for patient. Mild hyponatremia, baseline is 131-133, slowly declining over the last few years. Comparison is from January. Mild hypokalemia, also not terribly uncharacteristic of patient. Stable CRP from previous visits. Normal lipase, stable liver enzymes. Urinalysis showing mild ketones, no severe dehydration. CT reviewed, showing gastritis Labs: Lab Results 11/29/22 11/30/22 11/30/22 Range/Units 22:56 00:00 00:26 WBC 13.36 H (4.50-11.00) K/uL RBC 4.16 (4.00-5.20) m/uL Hgb 13.0 (12.0-16.0) gm/dL Hct 38.0 (33.0-51.0) % MCV 91 (80-100) fL MCH 31 (26-34) pg MCHC 34 (32-36) gm/dL RDW Coeff of Terrell 14.7 (11.5-15.5) % Plt Count 367 (140-440) K/uL Neut % (Auto) 79.4 H (42.0-72.0) % Lymph % (Auto) 11.2 L (20-44) % Winston % (Auto) 7.7 (0.0-11.0) % Eos % (Auto) 0.1 (0.0-7.0) % Baso % (Auto) 0.1 (0.0-3.0) % Neut # (Auto) 10.60 H (1.7-7.0) K/uL Lymph # (Auto) 1.50 (0.90-2.90) K/uL Winston # (Auto) 1.00 H (0.00-0.90) K/UL Eos # (Auto) 0.00 (0.00-0.50) K/uL Baso # (Auto) 0.00 (0.00-0.30) K/uL Abs Immat Gran (auto) 0.20 (0.00-0.30) K/uL Imm/Tot Granulo (auto) 1.5 % Sodium 129 L (135-149) mmol/L Potassium 3.3 L (3.6-5.1) mmol/L Chloride 91 L (96-114) mmol/L Carbon Dioxide 33 H (20-32) mmol/L BUN 25 (7-30) mg/dL Creatinine 0.8 (0.5-1.5) mg/dL Estimated Creat Clear 42.41 Estimated GFR 80 ml/min Glucose 107 (60-115) mg/dL Lactate 0.9 (0.5-1.9) mmol/L Calcium 10.2 (8.4-10.6) mg/dL Total Bilirubin 0.5 (0.1-1.5) mg/dL Direct Bilirubin 0.2 (0.0-0.5) mg/dL AST 27 (12-35) U/L ALT 17 (4-35) U/L Alkaline Phosphatase 53 (40-150) U/L C-Reactive Protein 1.9 H (0.5-1.0) mg/dL Total Protein 6.7 (6.0-8.3) g/dL Albumin 3.9 (3.3-5.0) g/dL Lipase 261 (23-300) U/L Urine Color Yellow (Yellow) Urine Appearance Clear (Clear) Urine pH 6.0 (5.0-8.5) Ur Specific Hankins 1.015 (1.000-1.030) Urine Protein Negative (Negative) Urine Glucose (UA) Negative (Negative) Urine Ketones 1+ A (Negative) Urine Blood Trace-intact A (Negative) Urine Nitrite Negative (Negative) Urine Bilirubin Negative (Negative) Urine Urobilinogen 0.2 (0.2-1.0) Ur Leukocyte Esterase Trace A (Negative) Urine RBC 0-2 (0-2) Urine WBC 2-5 (0-5) Ur Squamous Epith Cells Few (None-Few) Urine Bacteria Few A (None) Imaging Data CT scan - abdomen: Attestation: I have reviewed the pertinent imaging results. My impression: No obvious obstruction, air-fluid levels, free fluid in the pelvis or acute abnormality otherwise. Radiologist's impression: IMPRESSION: Thickening of the gastric antrum. This could represent peristalsis or gastritis. Otherwise, no acute findings within the abdomen and pelvis. Unchanged 3 mm intrahepatic biliary ductal stone without significant biliary obstruction. Discharge Plan Discharge Clinical Impression: Gastritis due to nonsteroidal anti-inflammatory drug (NSAID) Patient Disposition: Home, Self-Care Condition: Stable Instructions: Gastritis (DC) Additional Instructions: As we discussed, the CT looks good except for some irritation in the top part of the stomach, most likely from your recent use of steroids and other anti-inflammatory medications from your neck pain and shingles. Your mildly dehydrated as well, your sodium and potassium levels were slightly lower than usual but not dangerously low. You were given IV fluid and some electrolyte replacement for this. In your case, stopping the steroids and anti-inflammatory medication will ultimately cure things. I am thankful that you do not need to continue using those medications in the high doses that you have recently been doing. To help things heal, I will recommend famotidine 20 mg twice daily for the next 2 weeks and Carafate, a medication to coat and soothe the stomach 3 times daily for the next 5 days. It is okay to use Tylenol as needed for pain. Eat a soft, bland diet for the next few days until things improve. If your pain is not markedly better in a week, I would recommend a follow-up with her primary care doctor to discuss an endoscopy, a procedure were a camera looks at the top part of your stomach. Avoid alcohol and carbonated beverages for the next 2 weeks also. It is okay to continue your other medications, including your baseline prednisone in the meantime. Activity Level: No Restrictions Discharge Diet: Regular Prescriptions: New famotidine 20 mg tablet 20 mg PO BID 14 Days Qty: 28 2RF sucralfate [Carafate] 1 gram tablet 1 g PO BID Qty: 10 1RF ondansetron 4 mg tablet,disintegrating 4 mg PO Q8H PRN (Reason: nausea and vomiting) Qty: 10 0RF No Action Electrolytes PO Praluent Pen 75 mg/mL pen injector 75 mg subcut Q2W Patient Comments: INJECT 75MG SUBCUTANEOUSLY EVERY 2 WEEKS hydrocortisone 2.5 % cream 1 applic topical QDAY PRN doxazosin 2 mg tablet 2 mg PO QDAY Qty: 90 1RF nystatin 500,000 unit tablet 1,000,000 unit PO BID cyclobenzaprine 5 mg tablet 5 mg PO TID PRN (Reason: muscle spasm) Qty: 90 1RF lidocaine [Lidoderm] 5 % adhesive patch,medicated 1 patch topical DAILY Qty: 30 1RF Rx Instructions: leave on most painful area for up to 12 hrs pregabalin [Lyrica] 75 mg capsule 75 mg PO BID Qty: 60 1RF magnesium oxide 400 mg (241.3 mg magnesium) tablet 400 mg PO QDAY CBD Oil sublingual aspirin [Aspirin Childrens] 81 mg tablet,chewable 81 mg PO QDAY mycophenolate mofetil 500 mg tablet 500 mg PO BID Patient Comments: TAKE ONE TABLET BY MOUTH TWICE A DAY prednisolone acetate 1 % drops,suspension 1 drp ophthalmic (eye) QID naltrexone 5.5mg PO .ud Patient Comments: 4.5 mg PM and 1mg AM methylprednisolone [Medrol (Art)] 4 mg tablets,dose pack See Rx Instructions .ROUTE .COMPLEX Qty: 21 0RF Rx Instructions: orally per package directions meloxicam 15 mg tablet 15 mg PO QDAY Qty: 90 3RF lisinopril 40 mg tablet 40 mg PO QDAY Qty: 90 3RF ezetimibe 10 mg tablet 10 mg PO QDAY Qty: 90 3RF Patient Comments: TAKE ONE TABLET BY MOUTH EVERY DAY prednisone 10 mg tablet 10 mg PO Q OTHER DAY Qty: 90 1RF Rx Instructions: opposite 5mg days ondansetron HCl 4 mg tablet 4 mg PO Q6H PRN (Reason: nausea and vomiting) Qty: 30 1RF Follow Up/Referrals: Dalton Esqueda MD [Primary Care Provider] - Stand Alone Forms: [facility] Info Instructions
[2022-11-30 00:19] LABS: Albumin* 3.9 g/dL (3.3-5.0); Chloride* 91 mmol/L (96-114); Potassium* 3.3 mmol/L (3.6-5.1); Sodium* 129 mmol/L (135-149)
[2022-11-30 00:21] LABS: Creatinine* 0.8 mg/dL (0.5-1.5); Est. Creatinine Clearance* 42.41; Estimated Glomerular Filt Rate 80 ml/min
[2022-11-30 00:22] LABS: Alanine Aminotransferase* 17 U/L (4-35); Alkaline Phosphatase* 53 U/L (40-150); Aspartate Amino Transferase* 27 U/L (12-35); Bilirubin Direct* 0.2 mg/dL (0.0-0.5); Bilirubin Total* 0.5 mg/dL (0.1-1.5); Blood Urea Nitrogen* 25 mg/dL (7-30); Calcium* 10.2 mg/dL (8.4-10.6); Carbon Dioxide* 33 mmol/L (20-32); Glucose* 107 mg/dL (60-115); Lipase* 261 U/L (23-300); Total Protein* 6.7 g/dL (6.0-8.3)
[2022-11-30] MEDS: 0.9 % SODIUM CHLORIDE 1000 ml 1,000 ML IV (00:25)
[2022-11-30] MEDS: HYDROmorphone 0.5 mg/0.5 ml inj IVP (00:25)
[2022-11-30] MEDS: ONDANSETRON 2 MG/ML inj 4 MG IVP (00:25)
[2022-11-30 00:45] LABS: Appearance Urine Clear (Clear); Bilirubin Urine Negative (Negative); Blood Urine Trace-intact (Negative); Color Urine Yellow (Yellow); Glucose Urine Negative (Negative); Ketones Urine 1+ (Negative); Leukocyte Esterase Urine Trace (Negative); Nitrite Urine Negative (Negative); Protein Urine Negative (Negative); Specific Gravity Urine 1.015 (1.000-1.030); Urobilinogen Urine 0.2 (0.2-1.0)
[2022-11-30 00:53] LABS: Bacteria Urine Few; RBC Urine 0-2 (0-2); Squamous Epithelial Cell Urine Few (None-Few)
[2022-11-30 01:03] LABS: C Reactive Protein* 1.9 mg/dL (0.5-1.0)
[2022-11-30 01:59] VITALS: BP 153/70; PULSE 90; RESP 18; O2SAT 94
[2022-11-30] MEDS: FAMOTIDINE 20 MG TABLET PO (02:12)
[2022-11-30] MEDS: SUCRALFATE 1 GM TABLET PO (02:32)
[2022-11-30] MEDS: POTASSIUM CHLORIDE 10 MEQ CAPSULE ER 40 MEQ PO (02:33)
--- NOTE | 2022-11-30 02:39 | PC.NURSE ---
patient DC with all belongings, no further questions or concerns
== END 2022-11-30 02:38 | disposition home or self-care (01) ==
PROVIDERS: Family Medicine; Emergency Provider Family Medicine; PCP Family Medicine
DX: K29.70 Gastritis, unspecified, without bleeding (principal); T39.395A Adverse effect of other nonsteroidal anti-inflammatory drugs [NSAID], initial encounter
CPT/HCPCS: 36415; 74177; 80048; 80053; 80076; 81001; 81003; 83605; 83690; 85025; 86140; 87086; 96374; 96375; 99284; A9270; J1170; J2405; J7030; Q9967

== ENCOUNTER 2022-12-06 07:04 | Outpatient (CLI) | payer MEDICARE, BC, SELFPAY ==
--- NOTE | 2022-12-06 07:15 | CRLHL7_ITS ---
For Patients: As a result of the Century Cures Act, medical imaging exams and procedure reports are released immediately into your electronic medical record. You may view this report before your referring provider. If you have questions, please contact your health care provider. INDICATION: Radiculopathy. Neck pain. COMPARISON: 11/14/2022. Technique Sagittal T1, T2, and STIR sequences. Axial T2/gradient sequences. FINDINGS: Degenerative retrolisthesis of C4 relative to C3 measuring approximately 4 mm and C5 measures approximately 3 mm. Normal facet alignment. No fractures. No vertebral body loss of height. No evidence injury. No suspicious osseous lesions. Normal cord signal. No intradural mass or lesion. C1-2: No spinal canal narrowing. C2-3: Disc degeneration posterior disc bulge. No narrowing of spinal canal. Mild narrowing of the bilateral foramina. C3-4: Grade 1 anterolisthesis. Disc degeneration and unroofed posterior disc bulge. Effacement of the ventral thecal sac. Moderate narrowing of spinal canal. Moderate severe right and moderate left neural foraminal narrowing. Potential impingement of the right C4 nerve root. C4-5: Disc generation broad-based disc osteophyte complex. Mild narrowing of spinal canal. Moderate bilateral foraminal narrowing. C5-6: Disc degeneration posterior disc bulge or disc osteophyte complex. Mild narrowing of spinal canal. Moderate severe right and moderate left neural foraminal narrowing. Potential impingement of the right C6 nerve root. C6-7: Disc degeneration broad-based disc osteophyte complex. Moderate narrowing of spinal canal. Moderate bilateral foraminal narrowing. C7-T1: No spinal canal neural foraminal narrowing. No spinal canal or neural foraminal narrowing in the visualized upper thoracic spine. IMPRESSION: 1. Degenerative retrolisthesis of C4 relative to C3 and C5. 2. Otherwise, normal alignment. No fractures 3. Normal cord signal. 4. At C3-4, moderate narrowing of spinal canal. Moderate severe right and moderate left neural foraminal narrowing. Potential impingement of the right C4 nerve root 5. At C5-6, moderate severe right and moderate left neural foraminal narrowing. Potential impingement of the right C6 nerve root. 6. At C6-7, moderate narrowing of the spinal canal and bilateral neural foramina Dictated by José Pritchett MD @ 12/06/2022 11:41:00 AM (Electronically Signed)
== END 2022-12-06 07:05 | disposition home or self-care (01) ==
LOC: MRI 07:05
PROVIDERS: PCP Family Medicine; Visit Provider Family Medicine
DX: M54.12 Radiculopathy, cervical region (principal); M50.222 Other cervical disc displacement at C5-C6 level; M50.223 Other cervical disc displacement at C6-C7 level
CPT/HCPCS: 72141

== ENCOUNTER 2023-01-05 09:22 | Outpatient (CLI) | payer MEDICARE, BC, SELFPAY ==
--- OUTSIDE RECORDS SUMMARY | 2023-01-05 09:25 | XMS_ITS | Patient Health Record ---
Author Name Unknown Organization [facility] Address [address] [place] [address] [address] [place] [address] Care Team Providers Care Vending Service Technician Name Role Phone Dalton Esqueda MD Primary Care Provider Unavail able Rambo Raymond Unavailable [phone] Dalton Louis Unavailable Unavailable ALLERGIES Allergen (clinical [...] Unknown Drug Allergy Activ e Substance with 9-haynqyg-9-methylglutar yl-coenzyme A reductase inhibitor mechanism of action (substance) Statins Unknown Drug Allergy Active sulfasalazine Sulfasalazine Unknown Drug Allergy Active venlafaxine Venlafaxine Unknown Drug Allergy Act epi REASON FOR REFERRAL No Information MEDICATIONS Medication SIG (Take, Route, Frequency, Duration) Notes Start Date End Date Status Mupirocin 2 % 1 application Wet Pan Mixer ally Twice a day Active Temovate 0.05 % 1 application Wet Pan Mixer ally Twice a day Active Ondansetron Active [...] unspecified (M32.9) Active confirmed Systemic lupus erythematosus (98887531) Problem Spondylosis without myelopathy or radiculopathy, cervical region (M47.812) Active confirmed Cervical spondylosis without myelopathy (648871391) Problem Spondylosis without myelopathy or radiculopathy, lumbar region (M47.816) Active confirmed Lumbosacral spondylosis without myelopathy (61603181) Problem Dorsalgia, unspecified (M54.9) Active confirmed Backache (026770293) Problem Muscle wasting and atrophy, not elsewhere classified, multiple sites (M62.59) Active confirmed Muscle wasting disorder (50057372) Problem Impingement syndrome of right shoulder (M75.41) Active confirmed Impingemen t syndrome of shoulder region (130867580) Problem Age-related osteoporosis without current pathological fracture (M81.0) Active confirmed Age-related osteoporosis (658688063) Problem Unspecified abnormalities of gait and mobility (R26.9) Active confirmed Abnormal gait (21425540) Problem Neck pain (M54.2) Active confirmed Neck pain (38495865) Problem Headache disorder (R51.9) Active confirmed Headache disorder (495374821) Problem Low back pain (M54.50) Active confirmed Low back pain (363302450) PLAN OF TREATMENT No Information Insurance Providers Payer Name Payer Address Payer Phone Subscriber Number Group Number Insured Name Patient Relationship to Insured Coverage Start Date Coverage End Date Medicare Part B [employer] [address] [place] [address] [id number] Nicolle Soto Self - patient is the insured 9 [facility] [address] [address] [place] [address] [id number] Nicolle Soto Self - patient is the [...]
--- OUTSIDE RECORDS SUMMARY | 2023-01-05 09:25 | XMS_ITS | Continuity of Care Document ---
Author Name Unknown Organization [facility] Address [address] [place] [address] Phone Care Team Providers Care Building Architectural Designer Name Role Phone Lemuel Huang MD Unavailable Unavailab le Allergies, Adverse Reactions, Alerts Substance Reaction Status Criticality diltiazem Unknown Active No Information hydralazine Unknown Active No Information duloxetine Unknown Active No Information hydrochlorothiazide Unknown Active No Infor mation Mfzoqxa-EAN-BkU Reductase Inhibitors Unknown Acti ve No Information [...] [facility], [address], [place], [id number], [place] tel:[phone] [facility] Spinal stenosis, lumbar region with neurogenic claudication Reina guzmán [facility] [place], [address] [place] [address], [address], [place], [place], [id number], [place]. tel:[phone] Referring Provider: Mauricio Weston, [address], [address]. tel:[phone] Office/Outpat ient Visit,New, [facility], [address], [place], [place], [id number], [place] tel:[phone] [facility] Spondylolisthe sis, lumbosacral regionSpinal stenosis, lumbosacral region Kalen Mishra. [facility] [place], [address] [place] [address] [address], [facility] [place], [address], [place]. tel:[phone] Referring Provider: Mauricio Weston, [address], [address]. tel:[phone] Family History Family Member Type Diagnosis Age At Onset No Information Payers Payer name Insurance type Covered democrat ID [id number] [id number] [facility] [id number] Social History Type Description Quantity Date Captured [...] Action Status Future Order: Radiology Order AP -Ezz-Bfty-Xhv Lum (APLatFlExL), Ordered on: Ordered History Of Present Illness Encounter Date Complaint History Of Prese nt Illness No Information Functional Status Date Functional Assessmen t No Information Instructions Date Instruction Additional Infor mation No Information Assessments Type Assessment Date No Information Patient Care Teams Name Effective Dates (start - stop) Status Members No Information
--- NOTE | 2023-01-05 09:30 | CRLHL7_ITS ---
For Patients: As a result of the Century Cures Act, medical imaging exams and procedure reports are released immediately into your electronic medical record. You may view this report before your referring provider. If you have questions, please contact your health care provider. Indication: Assess stool burden Technique: Abdomen 2 view. Comparison: None. Findings: Iliac stents. Increased stool within the lower abdomen. Vascular calcifications. Mild curvature of the spine. No pleural effusion. No free air. Impression: Increased colonic stool within the lower abdomen consistent with constipation. No bowel obstruction. Dictated by Dalton Trejo MD @ 01/05/2023 10:50:44 AM (Electronically Signed)
== END 2023-01-05 09:23 | disposition home or self-care (01) ==
PROVIDERS: PCP Family Medicine; Visit Provider Internal Medicine Gastroenterology
DX: R10.84 Generalized abdominal pain (principal)
CPT/HCPCS: 36415; 74019; 82310; 83970

== ENCOUNTER 2023-01-31 09:12 | Outpatient (CLI) | payer MEDICARE, BC, SELFPAY | END 2023-01-31 09:13 | disposition home or self-care (01) | LOC: NFLDREF 09:13 | PROVIDERS: PCP Family Medicine; Visit Provider Internal Medicine | DX: R05.9 Cough, unspecified (principal); R53.83 Other fatigue | CPT/HCPCS: 80053 ==

== ENCOUNTER 2023-03-11 09:50 | Emergency (ER) | payer MEDICARE, BC, SELFPAY ==
[2023-03-11 10:09] VITALS: BP 148/55; PULSE 95; RESP 16; TEMP 36.7; O2SAT 97; BMI 19.5
--- NOTE | 2023-03-11 10:35 | ED.HA ---
HPI - Headache General Chief Complaint: Headache/Migraine Stated Complaint: Headaches Time Seen by Provider: 03/11/23 10:27 History of Present Illness HPI Narrative: This 67-year-old female comes in reporting headache for the past week. She states she she does get headaches occasionally but this 1 is more intense. She states that she feels that in the left frontal area of her head. And she has a history of lupus and did have an injection in her neck for arthritic pain recently. She does report some rash now that has occurred in her anterior neck. She is taking prednisone 10 mg daily. She does not report any neurologic deficits. Related Data Home Medications Medication Instructions Recorded Confirmed CBD Oil sublingual 11/17/21 02/10/23 aspirin 81 mg chewable tablet 81 mg PO QDAY 11/17/21 02/10/23 (Aspirin Childrens) magnesium oxide 400 mg (241.3 mg 400 mg PO QDAY 11/17/21 02/10/23 magnesium) tablet mycophenolate mofetil 500 mg tablet 500 mg PO BID 02/15/22 02/10/23 alirocumab 75 mg/mL subcutaneous 75 mg subcut Q2W 03/09/22 02/10/23 pen injector (Praluent Pen) hydrocortisone 2.5 % topical cream 1 applic topical QDAY PRN 03/09/22 02/10/23 ezetimibe 10 mg tablet 10 mg PO QDAY 12/14/22 02/10/23 Electrolytes PO PRN 01/10/23 02/10/23 naltrexone 5.5mg PO QHS 01/10/23 02/10/23 omeprazole 40 mg capsule,delayed 40 mg PO BID 01/19/23 02/10/23 release fluconazole 200 mg tablet 200 mg PO DAILY 02/10/23 02/10/23 Previous Rx's Medication Instructions Recorded lisinopril 40 mg tablet 40 mg PO QDAY #90 tabs 05/06/22 ondansetron 4 mg disintegrating 4 mg PO Q8H PRN nausea and 11/30/22 tablet vomiting #10 tabs diphenoxylate-atropine 2.5 1 tab PO TID PRN diarrhea #30 tabs 12/15/22 mg-0.025 mg tablet (Lomotil) prednisone 10 mg tablet 10 mg PO QDAY #90 tabs 12/16/22 doxazosin 2 mg tablet 2 mg PO QDAY #90 tabs 01/12/23 meloxicam 15 mg tablet 15 mg PO QDAY #90 tabs 01/12/23 ketorolac 10 mg tablet 10 mg PO Q8H 5 days #15 tabs 03/11/23 ondansetron HCl 4 mg tablet 4 mg PO Q6H #10 tabs 03/11/23 Allergies Allergy/AdvReac Type Severity Reaction Status Date / Time atenolol Allergy Severe Verified 02/10/23 08:28 belimumab Allergy Severe Rash Verified 02/10/23 08:28 fentanyl Allergy Severe Cardiac Verified 02/10/23 08:28 Arrest infliximab [From Remicade] Allergy Severe Anaphylaxis Verified 02/10/23 08:28 alendronate sodium Allergy Mild stomach Verified 02/10/23 08:28 pain amitriptyline Allergy Mild Unknown Verified 02/10/23 08:28 buprenorphine Allergy Mild didn't help Verified 02/10/23 08:28 gabapentin Allergy Mild stomach Verified 02/10/23 08:28 issues amoxicillin Allergy Unknown Unknown Verified 02/10/23 08:28 diltiazem Allergy Unknown Unknown Verified 02/10/23 08:28 duloxetine Allergy Unknown Unknown Verified 02/10/23 08:28 erythromycin base Allergy Unknown Unknown Verified 02/10/23 08:28 hydralazine Allergy Unknown Unknown Verified 02/10/23 08:28 hydrochlorothiazide Allergy Unknown unknown Verified 02/10/23 08:28 hydroxychloroquine Allergy Unknown Unknown Verified 02/10/23 08:28 Ytknyfr-UQA-VkR Reductase Allergy Unknown Unknown Verified 02/10/23 08:28 Inhibitor tetracycline Allergy Unknown Unknown Verified 02/10/23 08:28 venlafaxine Allergy Unknown Unknown Verified 02/10/23 08:28 bupropion [From Wellbutrin] AdvReac hazy Verified 02/10/23 08:28 clopidogrel [From Plavix] AdvReac Verified 02/10/23 08:28 diltiazem Allergy Mild Uncoded 02/10/23 08:28 HMG-CoA reductase inhibitor Allergy Unknown Uncoded 02/10/23 08:28 Review of Systems Status of ROS: Reports: 10 or more systems reviewed and unremarkable except as noted in History and below Narrative: Constitutional: No fevers, no weight gain or loss. Eyes: No discharge. No vision changes. HENT: No congestion, no sore throat, no ear pain. Cardiovascular: No chest pain, no palpitations. Respiratory: No shortness of breath, no wheezes, no cough. Gastrointestinal: No abdominal pain, no vomiting, no diarrhea. Genitourinary: No dysuria, no hematuria. Musculoskeletal: Normal range of motion. Arthritic pain more specifically in the neck region recently. Skin: No pruritis. Lupus related rash. Neurological: No dizziness, weakness, sensory change, speech change. Endo/Heme/Allergies: No bruising or bleeding. No polydipsia. Pysch: no suicidality, no anxiety, no insomnia. All other systems reviewed and are negative. [facility] Medical History (Updated 03/11/23 @ 12:37 by Tyson Neil MD) COPD (chronic obstructive pulmonary disease) ?J44.9 - Chronic obstructive pulmonary disease, unspecified (ICD-10) Cough ?R05.9 - Cough, unspecified (ICD-10) Post herpetic neuralgia ?B02.29 - Other postherpetic nervous system involvement (ICD-10) Mixed hyperlipidemia ?E78.2 - Mixed hyperlipidemia (ICD-10) Primary hypertension ?I10 - Essential (primary) hypertension (ICD-10) Chronic sinus infection ?J32.9 - Chronic sinusitis, unspecified (ICD-10) DJD (degenerative joint disease), lumbosacral ?M47.817 - Spondylosis without myelopathy or radiculopathy, lumbosacral region (ICD-10) Sjogren's syndrome (2012) ?M35.00 - Sjogren syndrome, unspecified (ICD-10) Positive antinuclear antibody (07/21/11) ?R76.8 - Other specified abnormal immunological findings in serum (ICD-10) Peripheral vascular disease ?I73.9 - Peripheral vascular disease, unspecified (ICD-10) Osteoporosis ?M81.0 - Age-related osteoporosis without current pathological fracture (ICD-10) Obstructive sleep apnea syndrome (03/23/18) ?G47.33 - Obstructive sleep apnea (adult) (pediatric) (ICD-10) Hypothyroidism (06/30/17) ?E03.9 - Hypothyroidism, unspecified (ICD-10) History of lichen planus ?Z87.2 - Personal history of diseases of the skin and subcutaneous tissue (ICD-10) History of colonic polyps ?Z86.010 - Personal history of colonic polyps (ICD-10) History of basal cell carcinoma (BCC) ?Z85.828 - Personal history of other malignant neoplasm of skin (ICD-10) Generalized anxiety disorder (06/20/14) ?F41.1 - Generalized anxiety disorder (ICD-10) Fibromyalgia (2012) ?M79.7 - Fibromyalgia (ICD-10) Deafness in left ear (11/20/15) ?H91.92 - Unspecified hearing loss, left ear (ICD-10) Cerebral aneurysm (08/28/16) ?I67.1 - Cerebral aneurysm, nonruptured (ICD-10) Bilateral carotid artery stenosis ?I65.23 - Occlusion and stenosis of bilateral carotid arteries (ICD-10) Adjustment disorder with depressed mood (04/09/07) ?F43.21 - Adjustment disorder with depressed mood (ICD-10) Surgical History History of sinus surgery ?Z98.890 - Other specified postprocedural states (ICD-10) History of repair of right rotator cuff (2006) ?Z98.890 - Other specified postprocedural states (ICD-10) History of intravascular stent placement (05/2017) ?Z95.828 - Presence of other vascular implants and grafts (ICD-10) History of hysterectomy (1994) ?Z90.710 - Acquired absence of both cervix and uterus (ICD-10) History of section (1975) ?Z98.891 - History of uterine scar from previous surgery (ICD-10) History of cataract extraction ?Z98.49 - Cataract extraction status, unspecified eye (ICD-10) History of carotid endarterectomy (2009) ?Z98.890 - Other specified postprocedural states (ICD-10) Family History Sister Breast cancer Diabetes Mother Stroke Heart disease Father Prostate cancer Diabetes Daughter Diabetes Family/Other Breast cancer Social History (Reviewed 01/19/23 @ 08:44 by Daniela Barajas ~ COLLECTION DEVELOPMENT LIBRARIAN, COLLECTION DEVELOPMENT LIBRARIAN) Narrative: Medical marijuana use- onset 07/24/18 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 HEENT: Normocephalic, atraumatic. Neck: Normal range of motion. Nontender. Supple. Heart: Regular. No murmurs. Normal rate. Intact distal pulses. Lungs: Clear to auscultation. No chest discomfort. No wheezes, rhonchi, or rales. Abdomen: Normal bowel sounds. Nontender. No rebound tenderness. Genitalia: Deferred. Back: No midline tenderness. Normal range of motion. Extremities: Normal range of motion. No injury. Skin: Intact. Warm. No erythema or pallor. Erythema on the anterior neck. Neurologic: No altered sensation. No weakness. Alert and oriented. Psychiatric: No suicidality. No anxiety or depression. No insomnia. Nursing notes and vitals signs are reviewed. Const: Vital Signs, click to edit/add: Vital Signs - 24 hr 03/11/23 10:09 Temperature 98.1 F Pulse Rate [Pulse Oximeter] 95 Respiratory Rate 16 Blood Pressure [Ri ght Upper Arm] 148/55 H Pulse Oximetry 97 Oxygen Delivery Me thod Room Air Course Vital Signs Vital signs: Initial Vital Signs Temperature 98.1 F 03/11/23 10:09 Temperature Source Temporal Artery Scan 03/11/23 10:09 Pulse Rate 95 03/11/23 10:09 Respiratory Rate 16 03/11/23 10:09 Blood Pressure 148/55 H 03/11/23 10:09 Blood Pressure Mean 86 03/11/23 10:09 Pulse Oximetry 97 03/11/23 10:09 Oxygen Delivery Method Room Air 03/11/23 10:09 Vital Signs Temperature 98.1 F 03/11/23 10:09 Pulse Rate 95 03/11/23 10:09 Respiratory Rate 16 03/11/23 10:09 Blood Pressure 148/55 H 03/11/23 10:09 Pulse Oximetry 97 03/11/23 10:09 Oxygen Delivery Method Room Air 03/11/23 10:09 Temperature 98.1 F 03/11/23 10:09 Pulse Rate 95 03/11/23 10:09 Respiratory Rate 16 03/11/23 10:09 Blood Pressure 148/55 H 03/11/23 10:09 Pulse Oximetry 97 03/11/23 10:09 Oxygen Delivery Method Room Air 03/11/23 10:09 Medications Administered Medications: Discontinued Medications Generic Name Dose Route Start Last Admin Trade Name Drea PRN Reason Stop Dose Admin Diphenhydramine HCl 25 mg 03/11/23 10:33 03/11/23 11:47 Diphenhydramine 50 Mg/Ml Inj IVP 03/11/23 10:34 25 mg ONCE ONE Administration Ketorolac Tromethamine 15 mg 03/11/23 10:33 03/11/23 11:51 Ketorolac 30 Mg/Ml Inj IVP 03/11/23 10:34 15 mg ONCE ONE Administration Methylprednisolone Sodium Succinate 125 mg 03/11/23 10:33 03/11/23 11:45 Methylprednisolone Sod Succ 62.5 Mg/Ml (125) IVP 03/11/23 10:34 125 mg ONCE ONE Administration Ondansetron HCl 4 mg 03/11/23 10:33 03/11/23 11:49 Ondansetron 2 Mg/Ml Inj IVP 03/11/23 10:34 4 mg ONCE ONE Administration MDM - Headache MDM Narrative Medical decision making narrative: This patient comes in with headache symptoms as described above. She is not showing any sign of neurologic deficit. She does have headaches on occasion and this 1 is similar but worse. An IV was established where she received Toradol 15 mg, Benadryl 25 mg, Zofran 4 mg, and Solu-Medrol 125 mg. She states that she is feeling much better. She is okay to be discharged home. She did received prescriptions for Zofran and Toradol. Discharge Plan Discharge Clinical Impression: Migraine Patient Disposition: Home, Self-Care Condition: Improved Additional Instructions: Take medications as needed and directed. Follow up with MD return if worsening. Prescriptions: New ondansetron HCl 4 mg tablet 4 mg PO Q6H Qty: 10 0RF ketorolac 10 mg tablet 10 mg PO Q8H 5 Days Qty: 15 0RF No Action Praluent Pen 75 mg/mL pen injector 75 mg subcut Q2W Patient Comments: INJECT 75MG SUBCUTANEOUSLY EVERY 2 WEEKS hydrocortisone 2.5 % cream 1 applic topical QDAY PRN Electrolytes PO PRN omeprazole 40 mg capsule,delayed release(DR/EC) 40 mg PO BID fluconazole 200 mg tablet 200 mg PO DAILY magnesium oxide 400 mg (241.3 mg magnesium) tablet 400 mg PO QDAY CBD Oil sublingual aspirin [Aspirin Childrens] 81 mg tablet,chewable 81 mg PO QDAY mycophenolate mofetil 500 mg tablet 500 mg PO BID Patient Comments: TAKE ONE TABLET BY MOUTH TWICE A DAY naltrexone 5.5mg PO QHS Patient Comments: ezetimibe 10 mg tablet 10 mg PO QDAY Patient Comments: TAKE ONE TABLET BY MOUTH EVERY DAY diphenoxylate-atropine [Lomotil] 2.5-0.025 mg tablet 1 tab PO TID PRN (Reason: diarrhea) Qty: 30 2RF ondansetron 4 mg tablet,disintegrating 4 mg PO Q8H PRN (Reason: nausea and vomiting) Qty: 10 0RF lisinopril 40 mg tablet 40 mg PO QDAY Qty: 90 3RF prednisone 10 mg tablet 10 mg PO QDAY Qty: 90 0RF doxazosin 2 mg tablet 2 mg PO QDAY Qty: 90 1RF meloxicam 15 mg tablet 15 mg PO QDAY Qty: 90 2RF Follow Up/Referrals: Dalton Esqueda MD [Primary Care Provider] - Stand Alone Forms: [employer] Info Instructions
--- OUTSIDE RECORDS SUMMARY | 2023-03-11 11:02 | XMS_ITS | Patient Health Record ---
Author Name Unknown Organization [facility] Address [address] [place] [address] [address] [place] [address] Care Team Providers Care Employment Director Name Role Phone Dalton Esqueda MD Primary Care Provider Unavail able Rambo Raymond Unavailable [phone] Dalton Louis Unavailable Unavailable ALLERGIES Allergen (clinical [...] Unknown Drug Allergy Activ e Substance with 6-oycdcfa-9-methylglutar yl-coenzyme A reductase inhibitor mechanism of action (substance) Statins Unknown Drug Allergy Active sulfasalazine Sulfasalazine Unknown Drug Allergy Active venlafaxine Venlafaxine Unknown Drug Allergy Act epi REASON FOR REFERRAL No Information MEDICATIONS Medication SIG (Take, Route, Frequency, Duration) Notes Start Date End Date Status Mupirocin 2 % 1 application Fabric Awning Repairer ally Twice a day Active Temovate 0.05 % 1 application Fabric Awning Repairer ally Twice a day Active Ondansetron Active [...] unspecified (M32.9) Active confirmed Systemic lupus erythematosus (20880383) Problem Spondylosis without myelopathy or radiculopathy, cervical region (M47.812) Active confirmed Cervical spondylosis without myelopathy (787849166) Problem Spondylosis without myelopathy or radiculopathy, lumbar region (M47.816) Active confirmed Lumbosacral spondylosis without myelopathy (92418590) Problem Dorsalgia, unspecified (M54.9) Active confirmed Backache (385465491) Problem Muscle wasting and atrophy, not elsewhere classified, multiple sites (M62.59) Active confirmed Muscle wasting disorder (41825203) Problem Impingement syndrome of right shoulder (M75.41) Active confirmed Impingemen t syndrome of shoulder region (489493903) Problem Age-related osteoporosis without current pathological fracture (M81.0) Active confirmed Age-related osteoporosis (961620012) Problem Unspecified abnormalities of gait and mobility (R26.9) Active confirmed Abnormal gait (52558302) Problem Neck pain (M54.2) Active confirmed Neck pain (49798616) Problem Headache disorder (R51.9) Active confirmed Headache disorder (729062530) Problem Low back pain (M54.50) Active confirmed Low back pain (881725008) PLAN OF TREATMENT No Information Insurance Providers Payer Name Payer Address Payer Phone Subscriber Number Group Number Insured Name Patient Relationship to Insured Coverage Start Date Coverage End Date Medicare Part B [employer] [address] [place] [phone] [id number] Nicolle Soto Self - patient is the insured 9 [facility] [address] [address] [place] [address] [id number] Nicolle Soto Self - patient is the [...] Parathyroid 2010 right carotid endarterectomy 2009 colonoscopy 2011 TFE at L5-S1 01/24/2017 Lumbar RFA at bilateral L3-4 and Sacial ala left carotid endarectomy 2017 stent-right and left common iliacs 2018 colonoscopy diagnostic 2020 Hospitalization History Reason Date(Month/Year) Will bring list
--- OUTSIDE RECORDS SUMMARY | 2023-03-11 11:02 | XMS_ITS | Continuity of Care Document ---
Author Name Unknown Organization [facility] Address [address] [place] [address] Phone Care Team Providers Care Public Health Director Name Role Phone Lemuel Huang MD Unavailable Unavailab le Allergies, Adverse Reactions, Alerts Substance Reaction Status Criticality diltiazem Unknown Active No Information hydralazine Unknown Active No Information duloxetine Unknown Active No Information hydrochlorothiazide Unknown Active No Infor mation Xswlltf-MSR-BiX Reductase Inhibitors Unknown Acti ve No Information hydroxychloroquine Unknown Active No Inform ation Venlafaxine Analogues Unknown Active No Inf ormation tetracycline Unknown Active No Information amoxicillin Unknown Active No Information erythromycin base Unknown Active No Informa tion Medications Medication Instructions Dosage Effective Dates (start - stop) Status Comments ZOFRAN (unknown strength) Not Available - Active ZETIA (unknown strength) Not Available - A ctive ZANTAC (unknown strength) Not Available - Active VITAMIN D3 (unknown strength) Not Available - Active TYLENOL ARTHRITIS (unknown strength) Not Available - Active SYNTHROID (unknown strength) Not Available - Active SPIRONOLACTONE (unknown strength) Not Available - Active SALAGEN (unknown strength) Not Available - Active REPATHA SURECLICK (unknown strength) Not Available - Active PRILOSEC OTC (unknown strength) Not Available - Active LISINOPRIL (unknown strength) Not Available - Active GABAPENTIN (unknown strength) Not Available - Active CLARITIN (unknown strength) Not Available - Active ASPIRIN (unknown strength) Not Available - Active PREDNISONE (unknown strength) Not Available - Active Procedures Procedure Date Office/Outpatient Visit,Est, Mod 2017 Office/Outpatient Visit,New, Mod 2017 X-Ray Exam Lwr Spine, Min 4 Views Advance Directives Directive Yes / No Effective Date File Name No Information Encounters Encounter Description Practice Location Reason(s) For Visit Diagnoses Date Provider Providers Copied on Encounter Office/Outpat ient Visit,Est, Mod [facility], [address], [place], [id number], [place] tel:[phone] [facility] Spinal stenosis, lumbar region with neurogenic claudication Reina guzmán [facility] [place], [address] [place] [address], [address], [place], [place], [id number], [place]. tel:[phone] Referring Provider: Mauricio Weston, [address], [address]. tel:[phone] Office/Outpat ient Visit,New, Mod [facility], [address], [place], [place], [id number], [place] tel:[phone] [facility] Spondylolisthe sis, lumbosacral regionSpinal stenosis, lumbosacral region Kalen Mishra. [facility] [place], [address] [place] [address] [address], [facility] [place], [id number], [place]. tel:[phone] Referring Provider: Mauricio Weston, [address], [address]. tel:[phone] Family History Family Member Type Diagnosis Age At Onset No Information Payers Payer name Insurance type Covered libertarian ID Auth[place]aty[place] tipa[place] [id number] [facility] [id number] Social History Type Description Quantity Date Captured [...] Action Status Future Order: Radiology Order AP -Jou-Zvrj-Bbr Lum (APLatFlExL), Ordered on: Ordered History Of Present Illness Encounter Date Complaint History Of Prese nt Illness No Information Functional Status Date Functional Assessmen t No Information Instructions Date Instruction Additional Infor mation No Information Assessments Type Assessment Date No Information Patient Care Teams Name Effective Dates (start - stop) Status Members No Information
[2023-03-11] MEDS: METHYLPREDNISOLONE SOD SUCC 62.5 MG/ML (125) 125 MG IVP (11:45)
[2023-03-11] MEDS: diphenhydrAMINE 50 MG/ML inj 25 MG IVP (11:47)
[2023-03-11] MEDS: ONDANSETRON 2 MG/ML inj 4 MG IVP (11:49)
[2023-03-11] MEDS: KETOROLAC 30 MG/ML inj 15 MG IVP (11:51)
--- NOTE | 2023-03-11 20:10 | ED.NURSE ---
patient called regarding her prescriptions and where they were sent and to see if a hearing aid had been turned in. Patient informed that her perscriptions were sent to [facility] and that no hearing aids had been turned in.
--- NOTE | 2023-03-12 10:54 | ED.NURSE ---
Pt called informing that pharmacy never received Rx for Zofran and Toradol. Verified meds were prescribed but never sent to pharmacy. Gave verbal order for Zofran and Toradol as written/prescribed by . No questions from Mayo Matos.
== END 2023-03-11 12:54 | disposition home or self-care (01) ==
PROVIDERS: Emergency Provider Emergency Medicine Emergency Medical Services; PCP Family Medicine
DX: G43.909 Migraine, unspecified, not intractable, without status migrainosus (principal)
CPT/HCPCS: 96374; 96375; 99284; J1200; J1885; J2405; J2930

== ENCOUNTER 2023-03-15 10:29 | Outpatient (CLI) | payer MEDICARE, BC, SELFPAY ==
--- OUTSIDE RECORDS SUMMARY | 2023-03-15 10:34 | XMS_ITS | Continuity of Care Document ---
Author Name Unknown Organization [facility] Address [address] [place] [address] Phone Care Team Providers Care Shift Stacker Name Role Phone Lemuel Huang MD Unavailable Unavailab le Allergies, Adverse Reactions, Alerts Substance Reaction Status Criticality diltiazem Unknown Active No Information hydralazine Unknown Active No Information duloxetine Unknown Active No Information hydrochlorothiazide Unknown Active No Infor mation Fgwislr-TQW-OpI Reductase Inhibitors Unknown Acti ve No Information [...] Mod [facility], [address], [place], [id number], [place] tel:[phone] [facility] Spinal stenosis, lumbar region with neurogenic claudication Reina guzmán [facility] [place], [address] [place] [address], [address], [place], [place], [id number], [place]. tel:[phone] Referring Provider: Mauricio Weston, [address], [address]. tel:[phone] Office/Outpat ient Visit,New, Mod [facility], [address], [place], [place], [id number], [place] tel:[phone] [facility] Spondylolisthe sis, lumbosacral regionSpinal stenosis, lumbosacral region Kalen Mishra. [facility] [place], [address] [place] [address] [address], [facility] [place], [id number], [place]. tel:[phone] Referring Provider: Mauricio Weston, [address], [address]. tel:[phone] Family History Family Member Type Diagnosis Age At Onset No Information Payers Payer name Insurance type Covered republican ID Authorkatyaa tipaula([place] [address] [facility] [id number] Social History Type Description Quantity Date Captured [...] Action Status Future Order: Radiology Order AP -Tgl-Hviv-Cts Lum (APLatFlExL), Ordered on: Ordered History Of Present Illness Encounter Date Complaint History Of Prese nt Illness No Information Functional Status Date Functional Assessmen t No Information Instructions Date Instruction Additional Infor mation No Information Assessments Type Assessment Date No Information Patient Care Teams Name Effective Dates (start - stop) Status Members No Information
[2023-03-15 16:22] LABS: SARS PCR* Negative SARS-CoV-2 (Negative)
== END 2023-03-15 10:30 | disposition home or self-care (01) ==
LOC: KYNREF 10:29
PROVIDERS: PCP Family Medicine; Visit Provider Nurse Practitioner Family
DX: J34.89 Other specified disorders of nose and nasal sinuses (principal)
CPT/HCPCS: 87635

== ENCOUNTER 2023-08-24 11:32 | Outpatient (CLI) | payer MEDICARE, BC, SELFPAY | END 2023-08-24 11:33 | disposition home or self-care (01) | PROVIDERS: PCP Family Medicine; Visit Provider Family Medicine | DX: E78.5 Hyperlipidemia, unspecified (principal); I10 Essential (primary) hypertension; R53.83 Other fatigue; Z13.29 Encounter for screening for other suspected endocrine disorder | CPT/HCPCS: 80048; 80061; 84443; 85025 ==

== ENCOUNTER 2023-08-30 13:14 | Outpatient (CLI) | payer MEDICARE, BC, SELFPAY ==
--- OUTSIDE RECORDS SUMMARY | 2023-08-30 13:16 | XMS_ITS | Clinical Summary ---
Author Name Unknown Organization [facility] Address [address] [place] [address] Care Team Providers Care Meter Reader Chief Name Role Phone Dalton Esqueda MD Primary Care Provider [phone] Source Comments You are receiving this document as you are listed as the primary care provider,follow-up provider, or the patient has been referred to you for consultation.This is in compliance with the Medicare and[facility] EHR Incentive Program,which states Providers who transition their patient to another setting of careor provider of care or refers their patient to another provider of care shouldprovide summary care record for each transition of care or referral. [facility] Allergies Active Allergy Reactions Criticality Noted Date Comments Amoxicillin-Pot Clavulanate Gastrointestinal 06/09/2006 amox ok Duloxetine Diaphoresis,Dizzines s, Other, see comments 08/25/2016 Erythromycin Gastrointestinal 06/01/2006 Fentanyl Anaphylaxis,Other, s ee comments,Respiratory Arrest High 07/24/2018 Gabapentin Confusion 04/13/2019 Hydralazine Anaphylaxis,Other, s ee comments High 03/06/2017 Hydrochlorothiazide Other, see comments,Rash 06/10/2016 Hydroxychloroquine Anxiety 08/23/2011 Infliximab Rash High 09/28/2019 Also had some lip swelling and face swelling Sulfasalazine Rash 05/17/2019 Tetracycline Gastrointestinal 07/11/2006 Venlafaxine Diarrhea 12/25/2010 Medications Medication Sig Dispensed Refills Start Date End Date Status lisinopril (ZESTRIL) 40 MG tablet Active ezetimibe (ZETIA) 10 MG tablet Take 1 Tablet (10 mg) by mouth daily. 10/21/2022 Active Meloxicam (MOBIC) 15 MG tablet Take 1 Tablet (15 mg) by mouth daily. 01/12/2023 Active Naltrexone HCl, Pain, (NALTREX) 4.5 MG CAPS Active omeprazole (PRILOSEC) 40 MG capsule Take 1 Capsule (40 mg) by mouth two times a day. 01/12/2023 Active PRALUENT 75 MG/ML SOAJ Inject subcutaneously . Active aspirin (ASPIRIN 81) 81 MG chewable tablet Active acetaminophen (TYLENOL 8 HOUR ARTHRITIS PAIN) 650 MG controlled release tablet Active ondansetron (ZOFRAN-ODT) 4 MG disintegrating tablet Take by mouth. 03/12/2023 Active medical cannabis patient certified Active hydroxychloroquine (PLAQUENIL) 200 MG tablet Take 1 Tablet (200 mg) by mouth daily. 90 Tablet 3 03/22/2023 03/21/20 24 Active alendronate (FOSAMAX) 70 MG tablet Take 1 Tablet (70 mg) by mouth once every week. Take 30 minutes before first lcje-ydxcp-nef ication. Avoid lying down for 30 minutes. 12 Tablet 3 03/22/2023 03/21/20 24 Active mycophenolate (CELLCEPT) 500 MG tablet Take 1 Tablet (500 mg) by mouth two times a day. 180 Tablet 1 03/23/2023 03/17/20 24 Active Magnesium Bisglycinate (MAG GLYCINATE OR) Active Multiple Vitamin (MULTIVITAMINS OR) Active cholecalciferol (VITAMIND3) 50 MCG (2000 UT) tablet Take 1 Tablet (2,000 Units) by mouth daily. Active probiotic (AKA SUPER PROBIOTIC) Take 2 Capsules by mouth daily. Active SORBITOL-SACCHARIN OR Active drug not in computer GI response Active drug not in computer ProOmega Active predniSONE (DELTASONE) 2.5 MG tablet Take 3 Tablets (7.5 mg) by mouth daily. 270 Tablet 1 06/23/2023 12/20/19 24 Active triamcinolone acetonide (KENALOG) 0.1 % ointment Apply topically two times a day. To areas of rash 80 g 2 07/11/2023 Active carvedilol (COREG) 3.125 MG tablet Take 1 Tablet (3.125 mg) by mouth two times a day with meals. 90 Tablet 3 08/26/2023 08/26/19 25 Active spironolactone (ALDACTONE) 25 MG tablet Take 1 Tablet (25 mg) by mouth daily. 90 Tablet 3 08/26/2023 08/26/19 25 Active doxazosin (CARDURA) 2 MG tablet 08/26/19 24 Discontinued carvedilol (COREG) 3.125 MG tablet Take 1 Tablet (3.125 mg) by mouth two times a day. 08/24/2023 08/26/19 24 Discontinued Active Problems Problem Noted Date Diagnosed Date Osteoporosis 03/22/2023 AC (acromioclavicular) joint arthritis 3 Tubular adenoma 10/02/2020 Overview: Repeat colonoscopy in 5 years SNHL (sensorineural hearing loss) 07/02/2020 Medical marijuana use 07/24/2018 Overview: using oils-both medical marijuana and CBD Age-related osteoporosis wit hout current pathological fracture 03/28/2018 Obstructive sleep apnea 03/23/2018 Hypothyroidism 06/30/2017 Chronic SI joint pain 12/20/2016 Onychomycosis of toenail 11/01/2016 Tinea corporis 11/01/2016 Brain aneurysm 08/28/2016 Frequent headaches 08/28/2016 Lupus 11/24/2015 Left-sided tinnitus 11/20/2015 Fibromyalgia 03/31/2015 Subacute cutaneous lupus erythematosus 5 Generalized anxiety disorder 06/20/2014 Hypertension 08/23/2011 Stenosis of left carotid artery 08/17/2011 Overview: 08/26/11: Right carotid endarterectomy Adjustment disorder with depressed mood 04/09/20 07 Tobacco use disorder 07/11/2006 Hyperlipidemia 07/11/2006 Overview: does not tolerate statins: referral to cardiology Encounters Date Type Department Care Team Description 08/26/2023 3:00 PM CDT Initial Consult Ghislaine Tamika [facility] [address] [facility] [address] [place] [address] Wilfredo Howell III, MD Hypertension, unspecified type (HRC) (Primary Dx); Fibromyalgia; Tobacco use disorder (HRC); Brain aneurysm; PAD (peripheral artery disease) (HRC); Mixed hyperlipidemia (HRC) 08/24/2023 Telephone [place] [address] [place] [address]. [place] [address] DesiletFreeman, Orders Needed 07/05/2023 1:15 PM CDT Office Visit [facility] [address] [place] [address] Eva Long MD Systemic lupus erythematosis (HRC) (Primary Dx); Cutaneous lupus erythematosus; Rash 06/23/2023 11:20 AM VEHICLE TRIMMER Lab Visit [facility] [address] [place] [address] Systemic lupus erythematosus, unspecified SLE type, unspecified organ involvement status (HRC) 06/23/2023 10:45 AM VEHICLE TRIMMER Office Visit [facility] [address] [place] [address] TeodoroileFreeman mora DO Systemic lupus erythematosus, unspecified SLE type, unspecified organ involvement status (HRC) (Primary Dx); High risk medication use; Osteoporosis, unspecified osteoporosis type, unspecified pathological fracture presence (HRC); Essential hypertension (HRC); Tinea corporis; Vaccine counseling; Fibromyalgia from Last 3 Months Immunizations Name Administration Dates Next Due Flu Vac (3+ yrs) 03/21/2013, 2,02/26/2011, 010,02/06/2009 Flu Vac Preserv Free (3+yrs) 02/26/2011 [id number] 04/15/2009 Influenza N1V5-32 2009 Influenza IIV4 (Quadrivalent ) 0.5mL (13262) 01/17/2017,03/03/2016,01/15/2015, 014,04/15/2009 PPSV23 (Pneumovax) 04/06/2002 Td 04/06/2002 Tdap 01/31/2023,08/23/2011 Social History Tobacco Use Types Packs/Day Years Used Date Smoking Tobacco: Every Day Cigarettes Smokeless Tobacco: Never Tobacco Cessation:Ready to Q uit: Not Asked; Counseling Given: Not Answered Alcohol Use Standard Drinks/Week Comments Not Currently 0 (1 standard drink = 0.6 oz pur e alcohol) Sex and Gender Information Value Date Recorded Sex Assigned at Not on file Gender Identity Not on file Sexual Orientation Not on file Last Filed Vital Signs Vital Sign Reading Time Taken Comments Blood Pressure 163/61 08/26/2023 2:54 PM CDT Pulse 70 08/26/2023 2:54 PM CDT Temperature - - Respiratory Rate - - Oxygen Saturation - - Inhaled Oxygen Concentration - - Weight 53.5 kg (118 lb) 06/23/2023 10:40 AM VEHICLE TRIMMER Height 165.1 cm (5' 5) 08/26/2023 2:55 PM CDT Body Mass Index 19.64 03/22/2023 2:39 PM VEHICLE TRIMMER Plan of Treatment Upcoming Encounters Date Type Department Care Team (Late st Contact Info) Description 09/22/2023 10:45 AM CDT Appointment [facility] [address] [place], [place] [id number] Desilet, Freeman W, DO [address] [place], [place] [id number] 10/04/2023 10:00 AM CDT Appointment [facility] [address] [place] [address] Eva Long MD [address] [place], [place] [phone] Health Maintenance Due Date Last Done Comments Colon Cancer Screening Plan Due 1955 Hep C Screening (Preventive Services) 1955 Medicare Annual Wellness Visit 1955 Cholesterol 1999 Pneumococcal 65+ Yrs (2 - PCV) 04/06/2003 04/06/2002 Zoster/Shingles (1 of 2) 2004 Mammogram 03/07/2020 03/07/2019 COVID-19 Vaccine (1 - season) 2022 Influenza (Season Ended) 2023 017, 03/03/2016, 01/15/2015, Additional history exists DTaP/Tdap/Td (3 - Tdap) 01/31/2033 02/01/20 23, 08/23/2011, 04/06/2002 Dexa Completed 02/22/2020 HepA Aged Out No longer eligi ble based on patient's age to complete this topic HepB Aged Out No longer eligi ble based on patient's age to complete this topic Hib Aged Out No longer eligi ble based on patient's age to complete this topic IPV (Polio) Aged Out No longer eligi ble based on patient's age to complete this topic MCV4 Aged Out No longer eligi ble based on patient's age to complete this topic Procedures Procedure Name Priority Date/Time Associated Diagnosis Comments ECG 12 LEAD OUTPATIENT Routine 4 3:00 PM CDT Hypertension, unspecified type (HRC) SKIN BIOPSY Routine 07/05/2023 1:17 PM CDT Rash SURGICAL PATHOLOGY, DERMATOLOGY Routine 07/05/2023 1:17 PM CDT Rash TP/CREA RATIO, URINE Routine 06/23/2023 11:32 AM VEHICLE TRIMMER Systemic lupus erythematosus, unspecified SLE type, unspecified organ involvement status (HRC) URINALYSIS ROUTINE, MICRO/CULTURE IF POS Routine 06/23/2023 11:32 AM VEHICLE TRIMMER Systemic lupus erythematosus, unspecified SLE type, unspecified organ involvement status (HRC) COMPLETE BLOOD COUNT-W/DIFF Routine 06/23/2023 11:28 AM VEHICLE TRIMMER Systemic lupus erythematosus, unspecified SLE type, unspecified organ involvement status (HRC) C3 COMPLEMENT Routine 06/23/2023 11:28 AM VEHICLE TRIMMER Systemic lupus erythematosus, unspecified SLE type, unspecified organ involvement status (HRC) C4 COMPLEMENT Routine 06/23/2023 11:28 AM VEHICLE TRIMMER Systemic lupus erythematosus, unspecified SLE type, unspecified organ involvement status (HRC) DNA DOUBLE STRANDED ANTIBODY IGG (ALBA) Routine 06/23/2023 11:28 AM VEHICLE TRIMMER Systemic lupus erythematosus, unspecified SLE type, unspecified organ involvement status (HRC) COMPREHENSIVE METABOLIC PANEL Routine 06/23/2023 11:28 AM VEHICLE TRIMMER Systemic lupus erythematosus, unspecified SLE type, unspecified organ involvement status (HRC) CBC AND DIFFERENTIAL PANEL Routine 06/23/2023 11:28 AM VEHICLE TRIMMER Systemic lupus erythematosus, unspecified SLE type, unspecified organ involvement status (HRC) RADEX FNGR MINIMUM 2 VIEWS 11/01/1995 12:00 AM CDT Finger Injury Nos Fx Phalanx, Hand Nos-Close from Last 3 Months or Most Recently Relevant to Health Maintenance Results * ECG 12 Lead Outpatient (08/26/2023 3:00 PM CDT) Ventricular Rate 66 BPM MUSE GHP Atrial Rate 66 BPM MUSE GHP P-R Interval 174 ms MUSE GHP QRS Duration 80 ms MUSE GHP QT 368 ms MUSE GHP QTc 385 ms MUSE GHP P [place] 77 degrees MUSE GHP R [place] 73 degrees MUSE GHP T [place] 81 degrees MUSE GHP 08/26/2023 3:00 PM CDT Narrative MUSE GHP - 08/26/2023 3:07 PM CDT Sinus rhythm Possible Biatrial enlargement Otherwise normal ECG Abnormal ECG No previous ECGs available Confirmed by Christian Damico ([id number]) on 08/26/2023 3:07:16 PM Procedure Note Christian Damico MD - 08/26/2023 Sinus rhythm Possible Biatrial enlargement Otherwise normal ECG Abnormal ECG No previous ECGs available Confirmed by Christian Damico ([id number]) on 08/26/2023 3:07:16 PM Wilfredo Howell III, MD PN ECG ORDERABLE S [facility] [address] [place] [address] * Skin Biopsy (No CPT) (07/05/2023 1:17 PM CDT) Narrative EXTERNAL RESULTS - 07/05/2023 1:17 PM CDT Type of biopsy: punch ?? Informed consent: discussed and consent obtained ?? Timeout: patient name, date of , surgical site, and procedure verified ?? Procedure prep: ??Patient was prepped and draped in usual sterile fashion Prep type: ??Isopropyl alcohol Anesthesia: the lesion was anesthetized in a standard fashion ?? Anesthetic: ??1% lidocaine w/ epinephrine 1-100,000 local infiltration Punch size: ??4 mm Suture size: ??4-0 Suture type: Prolene (polypropylene) ?? Suture removal (days): ??14 Hemostasis achieved with: suture ?? Outcome: patient tolerated procedure well ?? Post-procedure details: wound care instructions given ?? Eva Long MD DERM PROCEDURE ORDER ZA EXTERNAL RESULTS * Surgical Path, Dermatology (07/05/2023 1:17 PM CDT) Case Report Surgical Pathology Report ? Case: [id number] ? Authorizing Provider: ??Eva Long MD ? Collected: ? 07/05/2023 1317 ? Ordering Location: ? [facility] ? Received: ?07/06/2023 0917 ? Pathologist: ? Romero Cervantes MD ? Specimen: ?Skin, Right Upper Arm - Posterior ? 07/11/2023 2:18 PM CDT REHABILITATION ENGINEER [facility]00 DERMATOLOGY FINAL DIAGNOSIS A. Skin, Right Upper Arm - Posterior, punch: - Interface dermatitis with dense perivascular inflammatory infiltrate, see comment. COMMENT: The histologic findings are suspicious for a cutaneous manifestation of a connective tissue disorder. The differential diagnosis includes a medication reaction, lichen planus, and other forms of interface/lichen oid dermatitis. A PAS stain performed with proper positive control does not reveal evidence of a fungal infection. Clinical correlation is advised with additional tissue sampling if clinically indicated. 07/11/2023 2:18 PM T REHABILITATION ENGINEER [facility]00 DERMATOLOGY Clinical Information Clinical Impression: SCLE r/o tinea corporis (pt has SLE, on immunosuppressio n, h/o tinea corporis) 07/11/2023 2:18 PM T REHABILITATION ENGINEER [facility]00 DERMATOLOGY Microscopic Description Microscopic examination is performed. 07/11/2023 2:18 PM T REHABILITATION ENGINEER [address] DERMATOLOGY Special Stains The stain controls have been reviewed and stain appropriately. 07/11/2023 2:18 PM T REHABILITATION ENGINEER [address] DERMATOLOGY Technical Information A portion of the technical [place] [address]. 07/11/2023 2:18 PM CDT REHABILITATION ENGINEER [facility]00 DERMATOLOGY Gross Description A: Received in formalin, labeled with the patient's name and Skin, Right Upper Arm - Posterior is a 4 x 4 x 5 mm punch biopsy of skin. The specimen is marked with blue ink, bisected, and submitted entirely in one cassette. TV 07/11/2023 2:18 PM CDT REHABILITATION ENGINEER 3800 DERMATOLOGY Embedded Images 07/11/2023 2:18 PM T REHABILITATION ENGINEER [facility]00 DERMATOLOGY Skin (Skin) 07/05/2023 1:17 PM CDT 07/06/2023 9:17 AM CDT Comment:Clinical Impression: SCLE r/o tinea corporis (pt has SLE, on immunosuppression, h/o tinea corporis) Eva Long MD LAB PATHOLOGY Performing Organization Address [facility]/ZIP Co de Phone Number [facility] [address] * (ABNORMAL) Urinalysis Routine, Micro/Culture if Pos: Clean Catch (06/23/2023 11:32 AM VEHICLE TRIMMER) Urine Culture Comment Urinalysis results do not meet criteria for urine culture reflex. 06/23/2023 11:35 AM [facility] Urine Color Straw 06/23/2023 11:35 AM [facility] Urine Clarity Clear Clear 06/23/2023 11:35 AM [facility] Specific [place], Urine <=1.005(A) 1.005 - 1.030 06/23/2023 11:35 AM [facility] PH Urine 6.0 5.0 - 8.0 06/23/2023 11:35 AM [facility] Protein, Urine Qual (mg/dL) Negative Neg/Trace 06/23/2023 11:35 AM [facility] Glucose Urine Qual (mg/dL) Negative Negative 06/23/2023 11:35 AM [facility] Ketones, Urine (mg/dL) Negative Negative 06/23/2023 11:35 AM [facility] Urobilinogen, Urine (EU/dL) 0.2 <2.0 06/23/2023 11:35 AM [facility] Bilirubin Urine Negative Negative 06/23/2023 11:35 AM [facility] Blood, Urine Negative Neg/Trace 06/23/2023 11:35 AM [facility] Nitrite Urine Negative Negative 06/23/2023 11:35 AM [facility] Leukocyte Est. Negative Negative 06/23/2023 11:35 AM [facility] Urine Source Clean Catch 06/23/2023 11:35 AM [facility] Urine URINE SPECIMEN COLLECTION, CLEAN CATCH / Unknown Non-blood Collection / Unknown 06/23/2023 11:32 AM VEHICLE TRIMMER 06/23/2023 11:32 AM VEHICLE TRIMMER Luke W Desilet DO LAB_1 Performing Organization Address [facility]/ZIP Co de Phone Number [facility] [address] [place] [address] * TP/Crea Ratio, Urine (06/23/2023 11:32 AM VEHICLE TRIMMER) Pathologist [facility] TP/Creat Ratio, Urine Random 06/23/2023 6:12 PM VEHICLE TRIMMER [facility] Comment:Unable to calculate, raw result outside instrument reportable range. Total Protein, Urine, Random <1 0 - 14 mg/dL 06/23/2023 6:12 PM VEHICLE TRIMMER [facility] Creatinine, Urine, Random 19 >20 mg/dL mg/dL 06/23/2023 6:12 PM VEHICLE TRIMMER [facility] Urine URINE SPECIMEN COLLECTION, CLEAN CATCH / Unknown Non-blood Collection / Unknown 06/23/2023 11:32 AM VEHICLE TRIMMER 06/23/2023 11:32 AM VEHICLE TRIMMER Narrative [facility] - 06/23/2023 6:12 PM VEHICLE TRIMMER Low urine creatinine values coupled with low urine protein values can artifactually increase the urine protein/creatinine results. Correlate results of ratio with creatinine results. ELERTSilet DO LAB_1 Performing Organization Address [facility]/ZIP Co de Phone Number [facility] [address] [place] [address] * DNA Double Stranded Antibody IgG (ALBA) (06/23/2023 11:28 AM VEHICLE TRIMMER) [facility] Anti-DNA Antibody IgG 12 <200 IU 06/24/2023 2:31 PM VEHICLE TRIMMER [facility] Anti-DNA Antibody IgG Interpretation Negative Negative 06/24/2023 2:31 PM VEHICLE TRIMMER [facility] Blood Venipuncture / Unknown 06/23/2023 11:28 AM VEHICLE TRIMMER 06/23/2023 11:28 AM VEHICLE TRIMMER Narrative [facility] - 06/24/2023 2:31 PM VEHICLE TRIMMER The following results were obtained with the [employer] QUANTA Lite dsDNA ALBA. dsDNA values obtained with different manufacturers' assay methods may not be used interchangeably. LuSCRMilet DO LAB_1 Performing Organization Address [facility]/ZIP Co de Phone Number [facility] [place] * (ABNORMAL) Complete Blood Count-W/Diff (06/23/2023 11:28 AM [facility]) [facility] Signature WBC 9.1 3.5 - 10.5 x10(9)/L 06/23/2023 11:30 AM [facility] RBC 4.45 3.90 - 5.03 x10(12)/L 06/23/2023 11:30 AM [facility] Hemoglobin 13.7 12.0 - 15.5 g/dL 06/23/2023 11:30 AM [facility] HCT 40.7 34.9 - 44.5 % 06/23/2023 11:30 AM [facility] MCV 91.5 80.0 - 100.0 fL 06/23/2023 11:30 AM [facility] MCH 30.8 27.6 - 33.3 pg 06/23/2023 11:30 AM [facility] MCHC 33.7 31.5 - 35.2 g/dL 06/23/2023 11:30 AM [facility] RDW 13.8 11.9 - 15.5 % 06/23/2023 11:30 AM [facility] Platelets 244 150 - 450 x10(9)/L 06/23/2023 11:30 AM [facility] Automated NRBC 0 <=0 /100 WBC 06/23/2023 11:30 AM [facility] Neutrophil Absolute 8.0(H) 1.7 - 7.0 10(9)/L 06/23/2023 11:30 AM [facility] Lymphocyte Absolute 0.8(L) 1.0 - 4.8 10(9)/L 06/23/2023 11:30 AM [facility] Monocyte Absolute 0.3 0.2 - 0.9 10(9)/L 06/23/2023 11:30 AM [facility] Eosinophil Absolute 0.0 0.0 - 0.5 10(9)/L 06/23/2023 11:30 AM [facility] Basophil Absolute 0.0 0.0 - 0.3 10(9)/L 06/23/2023 11:30 AM [facility] Immature Granulocyte % 0.4 0.0 - 0.5 % 06/23/2023 11:30 AM [facility] Blood Venipuncture / Unknown 06/23/2023 11:28 AM VEHICLE TRIMMER 06/23/2023 11:28 AM [facility] Freeman Fong Desilet DO LAB_1 [facility] [address] [place] [address], [facility] * (ABNORMAL) Comp Metabolic Panel (06/23/2023 11:28 AM [facility]) Sodium 137 136 - 145 mmol/L 06/23/2023 2:41 PM [facility] Potassium 4.7 3.5 - 5.1 mmol/L 06/23/2023 2:41 PM [facility] Chloride 105 98 - 109 mmol/L 06/23/2023 2:41 PM [facility] CO2 22 20 - 29 mmol/L 06/23/2023 2:41 PM [facility] Anion Gap 10 7 - 16 mmol/L 06/23/2023 2:41 PM [facility] Calcium 10.6(H) 8.4 - 10.4 mg/dL 06/23/2023 2:41 PM [facility] Comment:Low serum albumin ma y artificially lower total calcium, without impacting ionized calcium concentrations. If patient has or is at risk for hypoalbuminemia, consider ionized serum calcium to more accurately assess calcium status. BUN 40(H) 7 - 26 mg/dL 06/23/2023 2:41 PM [facility] Creatinine 0.81 0.55 - 1.02 mg/dL 06/23/2023 2:41 PM [facility] Alkaline Phosphatase 49 40 - 150 U/L 06/23/2023 2:41 PM [facility] AST (SGOT) 23 10 - 40 U/L 06/23/2023 2:41 PM [facility] ALT (SGPT) 20 <=55 U/L 06/23/2023 2:41 PM [facility] Bilirubin, Total 0.3 0.2 - 1.2 mg/dL 06/23/2023 2:41 PM [facility] Protein, Total 7.4 6.4 - 8.3 g/dL 06/23/2023 2:41 PM [facility] Albumin 4.0 3.5 - 5.0 g/dL 06/23/2023 2:41 PM [facility] Glucose 119(H) 70 - 100 mg/dL 06/23/2023 2:41 PM [facility] Comment:The given reference range is for the fasting state. Non-fasting reference range for glucose is 70 - 180 mg/dL. GFR, Estimated >60 >60 mL/min/1. 73m2 06/23/2023 2:41 PM [facility] Hours Fasting 4.0 8 - 12 Hours 06/23/2023 2:41 PM [facility] Blood Venipuncture / Unknown 06/23/2023 11:28 AM VEHICLE TRIMMER 06/23/2023 11:28 AM VEHICLE TRIMMER [employer] Desilet DO LAB_1 Performing Organization Address [facility]/ZIP Co de Phone Number [facility] [address] [place] [address] * C4 Complement (06/23/2023 11:28 AM VEHICLE TRIMMER) C4 Complement 20.0 15.0 - 57.0 mg/dL 06/23/2023 4:35 PM VEHICLE TRIMMER [facility] Blood Venipuncture / Unknown 06/23/2023 11:28 AM VEHICLE TRIMMER 06/23/2023 11:28 AM VEHICLE TRIMMER [employer] Desilet DO LAB_1 Performing Organization Address City/[facility]/ZIP Co de Phone Number [facility] [address] [place], [place] [phone] [place] [address] * C3 Complement (06/23/2023 11:28 AM VEHICLE TRIMMER) C3 Complement 88 83 - 193 mg/dL 06/23/2023 4:35 PM VEHICLE TRIMMER [facility] Blood Venipuncture / Unknown 06/23/2023 11:28 AM VEHICLE TRIMMER 06/23/2023 11:28 AM VEHICLE TRIMMER Freeman W Desilet DO LAB_1 [facility] [address] [place] [address], [facility] from Last 3 Months or Most Recently Relevant to Health Maintenance Care Teams Meter Reader Chief Relationship Specialty Start Date End Date Dalton Esqueda MD [address] [place] [address] PCP - General Family Practice 06/23/23
--- OUTSIDE RECORDS SUMMARY | 2023-08-30 13:16 | XMS_ITS | Encounter Summary ---
Author Name Unknown Organization [facility] Address [address] [place] [address] Care Team Providers Care Rotary Swaging Machine Operator Name Role Phone Dalton Esqueda MD Primary Care Provider [phone] Encounter Details Date Type Department Care Team (Late st Contact Info) Description 06/23/2023 11:20 AM DUMP ATTENDANT Lab Visit [facility] [address] [place] [address] Systemic lupus erythematosus, unspecified SLE type, unspecified organ involvement status (HRC) Social History Tobacco Use Types Packs/Day Years Used Date Smoking Tobacco: Every Day Cigarettes Smokeless Tobacco: Never Sex and Gender Information Value Date Recorded Sex Assigned at Not on file Gender Identity Not on file Sexual Orientation Not on file documented as of this encounter Plan of Treatment Upcoming Encounters Date Type Department Care Team (Late st Contact Info) Description 09/22/2023 10:45 AM CDT Appointment [facility] [address] [place] [address] Freeman Lopez DO [address] [place], [place] [address] 10/04/2023 10:00 AM CDT Appointment [facility] [address] [place] [address] Eva Long MD [facility] [place], [place] [address] documented as of this encounter Procedures Procedure Name Priority Date/Time Associated Diagnosis Comments URINALYSIS ROUTINE, MICRO/CULTURE IF POS Routine 06/23/2023 11:32 AM DUMP ATTENDANT Systemic lupus erythematosus, unspecified SLE type, unspecified organ involvement status (HRC) TP/CREA RATIO, URINE Routine 06/23/2023 11:32 AM DUMP ATTENDANT Systemic lupus erythematosus, unspecified SLE type, unspecified organ involvement status (HRC) CBC AND DIFFERENTIAL PANEL Routine 06/23/2023 11:28 AM DUMP ATTENDANT Systemic lupus erythematosus, unspecified SLE type, unspecified organ involvement status (HRC) DNA DOUBLE STRANDED ANTIBODY IGG (ALBA) Routine 06/23/2023 11:28 AM DUMP ATTENDANT Systemic lupus erythematosus, unspecified SLE type, unspecified organ involvement status (HRC) COMPLETE BLOOD COUNT-W/DIFF Routine 06/23/2023 11:28 AM DUMP ATTENDANT Systemic lupus erythematosus, unspecified SLE type, unspecified organ involvement status (HRC) COMPREHENSIVE METABOLIC PANEL Routine 06/23/2023 11:28 AM DUMP ATTENDANT Systemic lupus erythematosus, unspecified SLE type, unspecified organ involvement status (HRC) C4 COMPLEMENT Routine 06/23/2023 11:28 AM DUMP ATTENDANT Systemic lupus erythematosus, unspecified SLE type, unspecified organ involvement status (HRC) C3 COMPLEMENT Routine 06/23/2023 11:28 AM DUMP ATTENDANT Systemic lupus erythematosus, unspecified SLE type, unspecified organ involvement status (HRC) documented in this encounter Results * TP/Crea Ratio, Urine (06/23/2023 11:32 AM DUMP ATTENDANT) TP/Creat Ratio, Urine Random 06/23/2023 6:12 PM DUMP ATTENDANT [facility] Comment:Unable to calculate, raw result outside instrument reportable range. Total Protein, Urine, Random <1 0 - 14 mg/dL 06/23/2023 6:12 PM DUMP ATTENDANT [facility] Creatinine, Urine, Random 19 >20 mg/dL mg/dL 06/23/2023 6:12 PM DUMP ATTENDANT [facility] Urine URINE SPECIMEN COLLECTION, CLEAN CATCH / Unknown Non-blood Collection / Unknown 06/23/2023 11:32 AM DUMP ATTENDANT 06/23/2023 11:32 AM [facility] Surya [facility] - 06/23/2023 6:12 PM [facility] Low urine creatinine values coupled with low urine protein values can artifactually increase the urine protein/creatinine results. Correlate results of ratio with creatinine results. Luke W Desilet DO LAB_1 [facility] [address] * (ABNORMAL) Urinalysis Routine, Micro/Culture if Pos: Clean Catch (06/23/2023 11:32 AM [facility]) Urine Culture Comment Urinalysis results do not meet criteria for urine culture reflex. 06/23/2023 11:35 AM [facility] Urine Color Straw 06/23/2023 11:35 AM [facility] Urine Clarity Clear Clear 06/23/2023 11:35 AM [facility] Specific [place], Urine <=1.005(A) 1.005 - 1.030 06/23/2023 11:35 AM [facility] PH Urine 6.0 5.0 - 8.0 06/23/2023 11:35 AM [facility] Protein, Urine Qual (mg/dL) Negative Neg/Trace 06/23/2023 11:35 AM [facility] Glucose Urine Qual (mg/dL) Negative Negative 06/23/2023 11:35 AM [facility] Ketones, Urine (mg/dL) Negative Negative 06/23/2023 11:35 AM [facility] Urobilinogen, Urine (EU/dL) 0.2 <2.0 06/23/2023 11:35 AM [facility] Bilirubin Urine Negative Negative 06/23/2023 11:35 AM [facility] Blood, Urine Negative Neg/Trace 06/23/2023 11:35 AM [facility] Nitrite Urine Negative Negative 06/23/2023 11:35 AM [facility] Leukocyte Est. Negative Negative 06/23/2023 11:35 AM [facility] Urine Source Clean Catch 06/23/2023 11:35 AM [facility] Urine URINE SPECIMEN COLLECTION, CLEAN CATCH / Unknown Non-blood Collection / Unknown 06/23/2023 11:32 AM DUMP ATTENDANT 06/23/2023 11:32 AM [facility] Luke W Desilet DO LAB_1 [facility] [address] [place] [address] * (ABNORMAL) Complete Blood Count-W/Diff (06/23/2023 11:28 AM [facility]) WBC 9.1 3.5 - 10.5 x10(9)/L 06/23/2023 11:30 AM [facility] RBC 4.45 3.90 - 5.03 x10(12)/L 06/23/2023 11:30 AM [facility] Hemoglobin 13.7 12.0 - 15.5 g/dL 06/23/2023 11:30 AM [facility] HCT 40.7 34.9 - 44.5 % 06/23/2023 11:30 AM [facility] MCV 91.5 80.0 - 100.0 fL 06/23/2023 11:30 AM [facility] MCH 30.8 27.6 - 33.3 pg 06/23/2023 11:30 AM [facility] MCHC 33.7 31.5 - 35.2 g/dL 06/23/2023 11:30 AM [facility] RDW 13.8 11.9 - 15.5 % 06/23/2023 11:30 AM [facility] Platelets 244 150 - 450 x10(9)/L 06/23/2023 11:30 AM [facility] Automated NRBC 0 <=0 /100 WBC 06/23/2023 11:30 AM [facility] Neutrophil Absolute 8.0(H) 1.7 - 7.0 10(9)/L 06/23/2023 11:30 AM [facility] Lymphocyte Absolute 0.8(L) 1.0 - 4.8 10(9)/L 06/23/2023 11:30 AM [facility] Monocyte Absolute 0.3 0.2 - 0.9 10(9)/L 06/23/2023 11:30 AM DUMP ATTENDANT [facility] Eosinophil Absolute 0.0 0.0 - 0.5 10(9)/L 06/23/2023 11:30 AM DUMP ATTENDANT [facility] Basophil Absolute 0.0 0.0 - 0.3 10(9)/L 06/23/2023 11:30 AM [facility] Immature Granulocyte % 0.4 0.0 - 0.5 % 06/23/2023 11:30 AM DUMP ATTENDANT [facility] Blood Venipuncture / Unknown 06/23/2023 11:28 AM DUMP ATTENDANT 06/23/2023 11:28 AM DUMP ATTENDANT Luke W Desilet DO LAB_1 Performing Organization Address City/[facility]/ZIP Co de Phone Number [facility] [address] [place] [address] * C3 Complement (06/23/2023 11:28 AM DUMP ATTENDANT) C3 Complement 88 83 - 193 mg/dL 06/23/2023 4:35 PM DUMP ATTENDANT [facility] Blood Venipuncture / Unknown 06/23/2023 11:28 AM DUMP ATTENDANT 06/23/2023 11:28 AM DUMP ATTENDANT [email or web address] W Desilet DO LAB_1 Performing Organization Address [facility] Co de Phone Number [facility] [address] * C4 Complement (06/23/2023 11:28 AM DUMP ATTENDANT) C4 Complement 20.0 15.0 - 57.0 mg/dL 06/23/2023 4:35 PM DUMP ATTENDANT [facility] Blood Venipuncture / Unknown 06/23/2023 11:28 AM DUMP ATTENDANT 06/23/2023 11:28 AM DUMP ATTENDANT Luke W Desilet DO LAB_1 Performing Organization Address City/[facility] Co de Phone Number [facility] [address] [place] [address], [facility] * DNA Double Stranded Antibody IgG (ALBA) (06/23/2023 11:28 AM DUMP ATTENDANT) Pathologist [facility] [place] Anti-DNA Antibody IgG 12 <200 IU 06/24/2023 2:31 PM DUMP ATTENDANT [facility] Anti-DNA Antibody IgG Interpretation Negative Negative 06/24/2023 2:31 PM [facility] Blood Venipuncture / Unknown 06/23/2023 11:28 AM DUMP ATTENDANT 06/23/2023 11:28 AM DUMP ATTENDANT Narrative [facility] - 06/24/2023 2:31 PM DUMP ATTENDANT The following results were obtained with the [employer] QUANTA Lite dsDNA ALBA. dsDNA values obtained with different manufacturers' assay methods may not be used interchangeably. Freeman Fong Desilet DO LAB_1 [facility] [address] * (ABNORMAL) Comp Metabolic Panel (06/23/2023 11:28 AM [facility]) Pathologist [facility] [place] Sodium 137 136 - 145 mmol/L 06/23/2023 2:41 PM [facility] Potassium 4.7 3.5 - 5.1 mmol/L 06/23/2023 2:41 PM [facility] Chloride 105 98 - 109 mmol/L 06/23/2023 2:41 PM [facility] CO2 22 20 - 29 mmol/L 06/23/2023 2:41 PM [facility] Anion Gap 10 7 - 16 mmol/L 06/23/2023 2:41 PM [facility] Calcium 10.6(H) 8.4 - 10.4 mg/dL 06/23/2023 2:41 PM [facility] Comment:Low serum albumin ma y artificially lower total calcium, without impacting ionized calcium concentrations. If patient has or is at risk for hypoalbuminemia, consider ionized serum calcium to more accurately assess calcium status. BUN 40(H) 7 - 26 mg/dL 06/23/2023 2:41 PM [facility] Creatinine 0.81 0.55 - 1.02 mg/dL 06/23/2023 2:41 PM [facility] Alkaline Phosphatase 49 40 - 150 U/L 06/23/2023 2:41 PM [facility] AST (SGOT) 23 10 - 40 U/L 06/23/2023 2:41 PM [facility] ALT (SGPT) 20 <=55 U/L 06/23/2023 2:41 PM [facility] Bilirubin, Total 0.3 0.2 - 1.2 mg/dL 06/23/2023 2:41 PM [facility] Protein, Total 7.4 6.4 - 8.3 g/dL 06/23/2023 2:41 PM [facility] Albumin 4.0 3.5 - 5.0 g/dL 06/23/2023 2:41 PM [facility] Glucose 119(H) 70 - 100 mg/dL 06/23/2023 2:41 PM [facility] Comment:The given reference range is for the fasting state. Non-fasting reference range for glucose is 70 - 180 mg/dL. GFR, Estimated >60 >60 mL/min/1. 73m2 06/23/2023 2:41 PM [facility] Hours Fasting 4.0 8 - 12 Hours 06/23/2023 2:41 PM [facility] Blood Venipuncture / Unknown 06/23/2023 11:28 AM DUMP ATTENDANT 06/23/2023 11:28 AM [facility] Luke W Desilet DO LAB_1 Performing Organization Address City/State/[facility] Co de Phone Number [facility] [address] [place] [address] documented in this encounter Visit Diagnoses Diagnosis Systemic lupus erythematosus, unspecified SLE type, unspecified organ involvement status (HRC) documented in this encounter Care Teams Rotary Swaging Machine Operator Relationship Specialty Start Date End Date Dalton Esqueda MD [address] [place] [address] PCP - General Family Practice 06/23/23 documented as of this encounter
--- OUTSIDE RECORDS SUMMARY | 2023-08-30 13:16 | XMS_ITS | Encounter Summary ---
Author Name Unknown Organization [facility] Address [address] [place] [address] Care Team Providers Care Mortgage Protection Sales Name Role Phone Dalton Esqueda MD Primary Care Provider [phone] Reason for Referral * Consult/Transfer Care (Routine) - New Request Specialty Diagnoses / Procedures Referred By Jonathan mora Referred To Contact Cardiology Diagnoses Hypertension, unspecified type (HRC) Freeman Lopez DO [address] [place] [address] Referral ID Status Reason Start Date Expiration Date V isits Requested Visits Authorized [id number] New Request 08/24/2023 11/22/2024 1 1 Scheduling Instructions Your provider has recommended an appointment with [facility]. You can quickly make your appointment online at [email or web address]. You can also call [phone] for help scheduling your appointment. We suggest you call your health insurance company about your coverage and benefits for this appointment. Question Answer Appointment Urgency? Non-Urgent Reason for visit? Refractory hypertension, patient prefers to stand within [facility] network Reason for Visit * Reason Comments Orders Needed Encounter Details Date Type Department Care Team ([facility] st Contact Info) Description 08/24/2023 Telephone [facility] [address] Rheumat[address] [place], [place] [id number] Freeman Lopez DO [address] [place], [place] [phone] Orders Needed Social History Tobacco Use Types Packs/Day Years Used Date Smoking Tobacco: Every Day Cigarettes Smokeless Tobacco: Never Sex and Gender Information Value Date Recorded Sex Assigned at Not on file Gender Identity Not on file Sexual Orientation Not on file documented as of this encounter Nursing Notes * Amanda French RN - 08/24/2023 2:35 PM CDT Reached out to patient to relay provider's message below. Patient stated understanding and appreciation. Provider's message below: I made a referral to Cardiology for refractory hypertension. If she can get in with [facility] sooner, I would recommend she do that. She can call cardiology at [phone] to schedule her appointment. Freeman Lopez DO 08/24/2023 1:22 PM * Amanda French RN - 08/24/2023 1:13 PM CDT Patient is requesting for a referral to see cardiology at [facility]. Patient states that she isstill having issues with her blood pressure and did reach out to her PCP but they wanted to refer her to cardiology at [facility]; she wants to stay with [facility]. Please advise. documented in this encounter Plan of Treatment Upcoming Encounters Date Type Department Care Team (Late st Contact Info) Description 09/22/2023 10:45 AM CDT Appointment [facility] [address] [place] [address] Freeman Lopez DO [address] [place] [address] 10/04/2023 10:00 AM CDT Appointment [facility] [address] [place] [address] Eva Long MD [address] [place] [address] Scheduled Referrals Name Type Priority Associated Diagnoses Orde r Schedule Cardiology Consult-Adults Referral Routine Hypertension, unspecified type (HRC) Ordered: 08/24/2023 documented as of this encounter Visit Diagnoses Diagnosis Hypertension, unspecified type (HRC)- Primary documented in this encounter Care Teams Mortgage Protection Sales Relationship Specialty Start Date End Date Dalton Esqueda MD [address] [place] [address] PCP - General Family Practice 06/23/23 documented as of this encounter
--- OUTSIDE RECORDS SUMMARY | 2023-08-30 13:16 | XMS_ITS | Encounter Summary ---
Author Name Unknown Organization [facility] Address [address] [place] [address] Care Team Providers Care Bakery Demonstrator Name Role Phone Dalton Esqueda MD Primary Care Provider + [phone] Reason for Referral * Consult/Transfer Care (Routine) - New Request Specialty Diagnoses / Procedures Referred By Jonathan mora Referred To Contact Diagnoses Systemic lupus erythematosus, unspecified SLE type, unspecified organ involvement status (HRC) Tinea corporis Freeman Lopez DO [address] [place] [address] Referral ID Status Reason Start Date Expiration Date V isits Requested Visits Authorized [id number] New Request 06/23/2023 09/21/2024 1 1 Scheduling Instructions Your clinician has recommended an appointment with [facility]. You can quickly make your appointment online at [email or web address]. You can also call [phone] for help scheduling your appointment. We suggest you call your health insurance company about your coverage and benefits for this appointment. Question Answer Appointment Urgency? Non-Urgent Reason for Visit * Reason Comments Follow-up Encounter Details Date Type Department Care Team (Late st Contact Info) Description 06/23/2023 10:45 AM CNP Office Visit [facility] [address] [place] [address] Freeman Lopez DO [address] [place], [place] [address] Systemic lupus erythematosus, unspecified SLE type, unspecified organ involvement status (HRC) (Primary Dx); High risk medication use; Osteoporosis, unspecified osteoporosis type, unspecified pathological fracture presence (HRC); Essential hypertension (HRC); Tinea corporis; Vaccine counseling; Fibromyalgia Social History Tobacco Use Types Packs/Day Years Used Date Smoking Tobacco: Every Day Cigarettes Smokeless Tobacco: Never Sex and Gender Information Value Date Recorded Sex Assigned at Not on file Gender Identity Not on file Sexual Orientation Not on file documented as of this encounter Last Filed Vital Signs Vital Sign Reading Time Taken Comments Blood Pressure 183/61 06/23/2023 10:40 AM CNP Pulse 94 06/23/2023 10:40 AM CNP Temperature - - Respiratory Rate - - Oxygen Saturation - - Inhaled Oxygen Concentration - - Weight 53.5 kg (118 lb) 06/23/2023 10:40 AM CNP Height - - Body Mass Index 19.64 03/22/2023 2:39 PM CNP documented in this encounter Patient Instructions * Patient Instructions* Freeman Lopez DO - 06/23/2023 10:45 AM CNP It was nice to see you today. We are following up on lupus. Your lupus labs as of the last visit were very stable. I would like Dermatology to see your rash tohelp determine whether this is from fungal cause or lupus. Otherwise, I think that lupus is relatively stable. We discussed other issues including your stomach ulcers and blood pressure. Decrease prednisone to 7.5 mg daily Continue hydroxychloroquine 200 mg daily, CellCept 500 mg twice a day, and Fosamax 70 mg once a week Lupus labs today I recommend a Prevnar 20 pneumonia vaccine. Also recommend yearly flu and COVID vaccines. Follow up with me in 3 months documented in this encounter Progress Notes * Freeman Lopez DO - 06/23/2023 10:45 AM CST RHEUMATOLOGY PROGRESS NOTE Patient: Nicolle Covington Preferred Name: Nicolle Reason for visit: Systemic lupus erythematosus (SLE) Other History: Tinea corporis, shingles, hypothyroidism, hypertension, generalized anxiety disorder, hyperlipidemia, tobacco use, peripheral arterial disease, carotid artery stenosis, fibromyalgia, and reported Sjogren's syndrome Rheumatic Disease History: Systemic lupus erythematosus (SLE) - characterized by inflammatory arthritis, severe diffuse rash, subacute cutaneous lupus, high titer positive JUJU, positive SSA, positive SSB, hypocomplementemia, and leukopenia - see detailed initial consult note from 03/22/2023. Previously followed with several outside rheumatologists (Dr. Louis at [facility] and Dr. Cordova at [facility]) - several prior medication intolerances as noted below - at presentation to [facility] February 2023, appeared to have clinically stable lupus disease activity other than reported history of rash and arthritis flares without significant rash on exam. Was on CellCept 500 mg twice a day and prednisone 10 mg daily. Restarted hydroxychloroquine 200 mg daily with plan to taper prednisone at follow up. CBC, CMP, urinalysis, urine protein/cre atinine ratio, C3, C4, ESR, CRP, dsDNA, vitamin-D within acceptable limits. 2. Osteoporosis -most recent DEXA scan ([facility]) July 2022 with osteoporosis, most severe T-score of -2.8 at the left femoral neck -long-term steroid use for lupus -previously on [facility] briefly but discontinued due to musculoskeletal pain. No prior reported bisphosphonate use prior to [facility]. -started oral alendronate 70 mg weekly February 2023 Rheumatologic Serologies: Positive: JUJU (1:2560 in speckled pattern), SSA, SSB, Ro 52, Ro 60, Negative: RF, CCP, dsDNA, Lyme, hepatitis-B core antibody, hepatitis-C antibody, hepatitis-B surface antigen, HIV antigen/antibody, SPEP Rheumatologic medications: Current: Mycophenolate mofetil (CellCept) 500 mg twice a day Prednisone 10 mg daily (chcf) Hydroxychloroquine 200 mg daily (February 2023-present) Oral alendronate 70 mg weekly (February 2023-present) Past: Azathioprine-GI upset Hydroxychloroquine-inefficacy and feeling like she was crawling out of her skin Leflunomide-GI upset 6MP-unknown reaction Sulfasalazine-rash Belimumab-rash Remicade-allergic/anaphylactic reaction Saphnelo-shingles Evenity-Bone/MSK pain History of Present Illness: Nicolle presents to the Rheumatology Clinic today for follow up of lupus. In interval, patient faxed most recent DEXA scan results from July 2022 which are summarized above. She had a Plaquenil eye exam with outside eye clinic on 05/31/2023 ([facility] Whitlock) with central visual velasquez and macular OCT which had no evidence of Plaquenil toxicity. Today, the patient states that she has had several issues since the last visit. She says that she had a COVID infection in late February 2023 and after that has had more stomach upset. Saw Gastroenterology and says that she had a repeat endoscopy showing healing gastric ulcers. She is planning to be tested for SIBO soon as well. She says that hospitalist nocturnist physician counseled her on chronic NSAID and prednisone use which are likely contributing to ulcers. She also has had diffuse rash on her arms which she is treated with topical and oral antifungals with improvement but says that this comes back after stopping oral antifungals. She has not seen Dermatology recently. No facial rash currently. Tolerating hydroxychloroquine, CellCept, prednisone, and Fosamax well. We discussed slowly tapering prednisone. She also reports some diffuse pain which is improved by pool therapy. Prior headache has now resolved. She is trying to get better sleep with using CBD products. Noted to have markedly elevated blood pressure in office today. She assures me that she takes her blood pressure at home daily and it is in the 110-120s systolic and 60s-70s diastolic. She is aware of the need to inform primary care if blood pressures are higher at home. Pain & RAPID3: In flowsheet if completed by patient. OBJECTIVE Physical Examination: VS: BP (!) 183/61 (BP Location: Right Arm, BP Cuff Size: Regular) Pulse 94 Wt 118 lb (53.5 kg) BMI 19.64 kg/m?? General: alert, oriented, no acute distress Skin: no rheumatic rashes detected, no skin thickening noted, normal oral aperture. Scattered, faint, erythematous lesions on arms in a somewhat annular appearance. No classic malar rash, subacute cutaneous lupus lesions, or discoid lupus lesions. Generalized hair thinning at the crown of the scalp. No focal hair loss, male pattern hair loss, or scarring hair loss. Head / Scalp: non-tender Eyes: Externally clear ENT: moist mucous membranes without ulcerations noted, nares clear without blood Lymph: No cervical or supraclavicular adenopathy appreciated Cardio: regular rate and rhythm on auscultation without significant murmurs, rubs, or gallops Lungs: clear to auscultation bilaterally Lower Extremities: no edema noted Musculoskeletal: All four limbs examined. Heberden and Fan's nodes appreciated. Squaring of the 1st CMC joint bilaterally. No tenderness with palpation, erythema, warmth, or swelling noted in the upper or lower extremity joints. Normal range of motion in all joints. Laboratory Data: Reviewed recent relevant results: 03/22/2023: CBC with differential with lymphopenia (lymphocyte count 500), otherwise within acceptable limits CMP within acceptable limits, liver enzymes normal, creatinine 1.00, EGFR greater than 60. ESR within normal limits at 20 mm/hr CRP within normal limits at less than 0.5 mg/dL C3 within normal limits at 96 mg/dL (reference range 83-193) C4 within normal limits at 15 mg/dL (reference range 15-57) DsDNA (Rosie assay) within normal limits at less than 8.0 IU/mL Twenty-five hydroxyvitamin D within normal limits at 32 ng/mL Urine protein/creatinine ratio within normal limits at 0.09 Urinalysis negative for blood or protein Radiographic Information: Reviewed in HPI above Microbiology: None Pathology: None Assessment/Plan Nicolle Covington is a pleasant 68 y.o. female who presented to the rheumatology department for systemic lupus erythematosus (SLE). Nicolle was seen today for follow-up. Diagnoses and all orders for this visit: Systemic lupus erythematosus, unspecified SLE type, unspecified organ involvement status (HRC) - CBC -W/Diff; Future - Comp Metabolic Panel; Future - DNA Double Stranded Antibody IgG (ALBA); Future - Urinalysis Routine, Micro/Culture if Pos: Clean Catch; Future - TP/Crea Ratio, Urine; Future - C4 Complement; Future - C3 Complement; Future - Dermatology Consult-Adult/Peds High risk medication use Osteoporosis, unspecified osteoporosis type, unspecified pathological fracture presence (HRC) Essential hypertension (HRC) Tinea corporis - Dermatology Consult-Adult/Peds Vaccine counseling Fibromyalgia Other orders - predniSONE (DELTASONE) 2.5 MG tablet; Take 3 Tablets (7.5 mg) by mouth daily. Nicolle presents to the Rheumatology Clinic today for follow up of systemic lupus erythematosus. SLEis characterized by inflammatory arthritis, severe diffuse rash, subacute cutaneous lupus, Raynaud's, high titer positive JUJU, positive SSA, positive SSB, hypocomplementemia, and leukopenia. At initial rheumatology consult visit in February 2023, disease appeared relatively stable and lab workup was stable with normal complements, bland urine, no cytopenias (other than isolated lymphopenia), normal dsDNA, and normal renal function. In interval, she has started hydroxychloroquine and is tolerating it well. Remains on CellCept, long-term prednisone (10 mg daily), and alendronate (for osteoporosis) as well. Up-to-date on hydroxychloroquine eye exams. Next DEXA due in 2024. She reports that she is being followed with endoscopy by an outside hospitalist nocturnist physician for gastric ulcers. I counseled her on slow taper of prednisone to help prevent further undesired side effects (i.e. osteoporosis, gastric ulcers). She says that she has been on prednisone for over 10 years and when it was tapered off several years ago, she erupted in a rash in her lower extremities. Today, objective indicators of lupus appear to be well-controlled. No classic rash or ulcers. I suspect that some of her joint pain is due to osteoarthritis and fibromyalgia. She is working with pooltherapy and using CBD for sleep. Recent labs stable as noted above.. She does have some annular rash on her arms which she says responds well to antifungal therapies. She has been treated for tinea in the past. She has not seen Dermatology recently and I recommended that she do this. She has seen an outside cupola tender in the fasting like to establish care with our health system. Noted elevated blood pressure today in clinic .She assures me that she takes her blood pressure at home daily and it is in the 110-120s systolic and 60s-70s diastolic. She is aware of the need to inform primary care if blood pressures are higher at home. We will plan to slowly taper prednisone given long-term use. We will continue other lupus medications at this time and follow up closely in 3 months to hopefully taper prednisone further. Plan: -update CBC, CMP, C3, C4, urinalysis, urine protein/creatinine ratio, dsDNA today -decrease prednisone to 7.5 mg daily -continue hydroxychloroquine 200 mg daily -continue CellCept 500 mg twice a day -continue oral alendronate 70 mg weekly. Next DEXA scan in 2024. -referral to Dermatology for diffuse skin rash (suspect tinea v. subacute cutaneous lupus) -follow up in the rheumatology clinic in 3 months Freeman Lopez DO 06/23/2023 11:25 AM This documentation was completed using M*Modal Fluency Direct Dictation Software which may contain typographical and word substitution errors. Please contact my office if clarification is needed. documented in this encounter Plan of Treatment Upcoming Encounters Date Type Department Care Team (Late st Contact Info) Description 09/22/2023 10:45 AM CDT Appointment [facility] [address] [place] [address] Freeman Lopez DO [address] [place], [place] [id number] 10/04/2023 10:00 AM CDT Appointment [facility] [address] [place] [address] [place] [address] [place] [address] [phone] Scheduled Referrals Name Type Priority Associated Diagnoses Orde r Schedule Dermatology Consult-Adult/Peds Referral Routine Systemic lupus erythematosus, unspecified SLE type, unspecified organ involvement status (HRC) Tinea corporis Ordered: 06/23/2023 documented as of this encounter Results * TP/Crea Ratio, Urine (06/23/2023 11:32 AM CNP) TP/Creat Ratio, Urine Random 06/23/2023 6:12 PM CNP [facility] Comment:Unable to calculate, raw result outside instrument reportable range. Total Protein, Urine, Random <1 0 - 14 mg/dL 06/23/2023 6:12 PM CNP [facility] Creatinine, Urine, Random 19 >20 mg/dL mg/dL 06/23/2023 6:12 PM CNP [facility] Urine URINE SPECIMEN COLLECTION, CLEAN CATCH / Unknown Non-blood Collection / Unknown 06/23/2023 11:32 AM CNP 06/23/2023 11:32 AM [facility] Narrative [facility] - 06/23/2023 6:12 PM [facility] Low urine creatinine values coupled with low urine protein values can artifactually increase the urine protein/creatinine results. Correlate results of ratio with creatinine results. Luke W Desilet DO LAB_1 [facility] [address] * (ABNORMAL) Urinalysis Routine, Micro/Culture if Pos: Clean Catch (06/23/2023 11:32 AM [facility]) Urine Culture Comment Urinalysis results do not meet criteria for urine culture reflex. 06/23/2023 11:35 AM [facility] Urine Color Straw 06/23/2023 11:35 AM [facility] Urine Clarity Clear Clear 06/23/2023 11:35 AM [facility] Specific Perry, Urine <=1.005(A) 1.005 - 1.030 06/23/2023 11:35 AM [facility] PH Urine 6.0 5.0 - 8.0 06/23/2023 11:35 AM [facility] Protein, Urine Qual (mg/dL) Negative Neg/Trace 06/23/2023 11:35 AM [facility] Glucose Urine Qual (mg/dL) Negative Negative 06/23/2023 11:35 AM [facility] Ketones, Urine (mg/dL) Negative Negative 06/23/2023 11:35 AM [facility] Urobilinogen, Urine (EU/dL) 0.2 <2.0 06/23/2023 11:35 AM [facility] Bilirubin Urine Negative Negative 06/23/2023 11:35 AM [facility] Blood, Urine Negative Neg/Trace 06/23/2023 11:35 AM [facility] Nitrite Urine Negative Negative 06/23/2023 11:35 AM [facility] Leukocyte Est. Negative Negative 06/23/2023 11:35 AM [facility] Urine Source Clean Catch 06/23/2023 11:35 AM CNP [facility] Urine URINE SPECIMEN COLLECTION, CLEAN CATCH / Unknown Non-blood Collection / Unknown 06/23/2023 11:32 AM CNP 06/23/2023 11:32 AM CNP Freeman Valerioilet DO LAB_1 [facility] [address] [place] [address] * C3 Complement (06/23/2023 11:28 AM CNP) C3 Complement 88 83 - 193 mg/dL 06/23/2023 4:35 PM CNP [facility] Blood Venipuncture / Unknown 06/23/2023 11:28 AM CNP 06/23/2023 11:28 AM CNP Freeman Fong [address] High Streetilet DO LAB_1 Performing Organization Address [facility] Co de Phone Number [facility] [address] * C4 Complement (06/23/2023 11:28 AM CNP) C4 Complement 20.0 15.0 - 57.0 mg/dL 06/23/2023 4:35 PM CNP [facility] Blood Venipuncture / Unknown 06/23/2023 11:28 AM CNP 06/23/2023 11:28 AM CNP Freeman Valerioilet DO LAB_1 Performing Organization Address [facility] Co de Phone Number [facility] [address] * DNA Double Stranded Antibody IgG (ALBA) (06/23/2023 11:28 AM CNP) Anti-DNA Antibody IgG 12 <200 IU 06/24/2023 2:31 PM CNP [facility] Anti-DNA Antibody IgG Interpretation Negative Negative 06/24/2023 2:31 PM CNP [facility] Blood Venipuncture / Unknown 06/23/2023 11:28 AM CNP 06/23/2023 11:28 AM [facility] Narrative [facility] - 06/24/2023 2:31 PM CNP The following results were obtained with the [employer] QUANTA Lite dsDNA ALBA. dsDNA values obtained with different manufacturers' assay methods may not be used interchangeably. Freeman Fong Desilet DO LAB_1 [facility] [address] * (ABNORMAL) Comp Metabolic Panel (06/23/2023 11:28 AM [facility]) Sodium 137 136 - 145 mmol/L 06/23/2023 2:41 PM [facility] Potassium 4.7 3.5 - 5.1 mmol/L 06/23/2023 2:41 PM [facility] Chloride 105 98 - 109 mmol/L 06/23/2023 2:41 PM [facility] CO2 22 20 - 29 mmol/L 06/23/2023 2:41 PM [facility] Anion Gap 10 7 - 16 mmol/L 06/23/2023 2:41 PM [facility] Calcium 10.6(H) 8.4 - 10.4 mg/dL 06/23/2023 2:41 PM [facility] Comment:Low serum albumin ma y artificially lower total calcium, without impacting ionized calcium concentrations. If patient has or is at risk for hypoalbuminemia, consider ionized serum calcium to more accurately assess calcium status. BUN 40(H) 7 - 26 mg/dL 06/23/2023 2:41 PM [facility] Creatinine 0.81 0.55 - 1.02 mg/dL 06/23/2023 2:41 PM [facility] Alkaline Phosphatase 49 40 - 150 U/L 06/23/2023 2:41 PM [facility] AST (SGOT) 23 10 - 40 U/L 06/23/2023 2:41 PM [facility] ALT (SGPT) 20 <=55 U/L 06/23/2023 2:41 PM [facility] Bilirubin, Total 0.3 0.2 - 1.2 mg/dL 06/23/2023 2:41 PM [facility] Protein, Total 7.4 6.4 - 8.3 g/dL 06/23/2023 2:41 PM [facility] Albumin 4.0 3.5 - 5.0 g/dL 06/23/2023 2:41 PM [facility] Glucose 119(H) 70 - 100 mg/dL 06/23/2023 2:41 PM [facility] Comment:The given reference range is for the fasting state. Non-fasting reference range for glucose is 70 - 180 mg/dL. GFR, Estimated >60 >60 mL/min/1. 73m2 06/23/2023 2:41 PM [facility] Hours Fasting 4.0 8 - 12 Hours 06/23/2023 2:41 PM [facility] Blood Venipuncture / Unknown 06/23/2023 11:28 AM CNP 06/23/2023 11:28 AM [facility] Luke W Desilet DO LAB_1 Performing Organization Address City/State/[facility] Co de Phone Number [facility] [address] [place] [address] documented in this encounter Visit Diagnoses Diagnosis Systemic lupus erythematosus, unspecified SLE type, unspecified organ involvement status (HRC)- Primary High risk medication use Encounter for long-term (current) use of other medications Osteoporosis, unspecified osteoporosis type, unspecified pathological fracture presence (HRC) Essential hypertension (HRC) Unspecified essential hypertension Tinea corporis Dermatophytosis of the body Vaccine counseling Fibromyalgia Mylagia and myositis, unspecified documented in this encounter Care Teams Bakery Demonstrator Relationship Specialty Start Date End Date Dalton Esqueda MD [address] [place] [address] PCP - General Family Practice 06/23/23 documented as of this encounter
--- OUTSIDE RECORDS SUMMARY | 2023-08-30 13:16 | XMS_ITS | Encounter Summary ---
Author Name Unknown Organization [facility], later [facility] Address [address] [place] [address] Care Team Providers Care Dance Master Name Role Phone Dalton Canales MD Primary Care Provider + [phone] Reason for Visit * Reason Comments CONSULT * Consult/Transfer Care (Routine) - New Request Specialty Diagnoses / Procedures Referred By Contac t Referred To Contact Cardiology Diagnoses Hypertension, unspecified type (HRC) Freeman Lopez, [address] [place] [address] Referral ID Status Reason Start Date Expiration Date V isits Requested Visits Authorized [id number] New Request 08/24/2023 11/22/2024 1 1 Encounter Details Date Type Department Care Team (Late st Contact Info) Description 08/26/2023 3:00 PM CDT Initial Consult [facility] [address] Cardiology [address] [place] [address] Wilfredo Howell III, MD [address] [place] [address] Hypertension, unspecified type (HRC) (Primary Dx); Fibromyalgia; Tobacco use disorder (HRC); Brain aneurysm; PAD (peripheral artery disease) (HRC); Mixed hyperlipidemia (HRC) Social History Tobacco Use Types Packs/Day Years Used Date Smoking Tobacco: Every Day Cigarettes Smokeless Tobacco: Never Alcohol Use Standard Drinks/Week Comments Not Currently [...] - Inhaled Oxygen Concentration - - Weight - - Height 165.1 cm (5' 5) 08/26/2023 2:55 PM CDT Body Mass Index - - documented in this encounter Progress Notes * Wilfredo Howell III, MD - 08/26/2023 3:00 PM CDT CARDIOLOGY NEW PATIENT VISIT: Primary Provider: Dalton Canales MD Chief Complaint: Hypertension History of Present Illness: I had the opportunity to visit with Nicolle for a new patient visit in the Cardiology Clinic today. She is a 68 yo female with fibromyalgia, hypertension, lupus, active tobacco use (in the process of quitting), peripheral arterial disease (bilateral iliac stenting), cerebral aneurysms, chronic multijoint discomfort, sciatica, hypothyroid state, generalized anxiety, cannabis use, hyperlipidemia, and hypertension. Nicolle reports being frustrated that her blood pressures have been challenging to control over the last year. She states that for many years she was able to demonstrate good blood pressure control with both a home blood pressure cuff and values seen at clinic. He has had some problems tolerating multiple oral antihypertensive agents, but was having good control with a combination of doxazosin 2 mg and lisinopril 40 mg. In the last year blood pressure has been challenging to control and increases of doxazosin up to 8 mg a day have been unable to successfully improve blood pressure. She has been having routine very wide swings in blood pressures from home blood pressure cuff. She will have systolic blood pressures as high as 200 mmHg and then within a day her blood pressure will be as low as 89 mmHg. She has had no chest pain or exertional chest pressure. She continues to be on chronic meloxicam (NSAID), but has made no recent dose changes. She was recently given a prescription for prednisone, but did not note any significant change in blood pressure around the time of starting this medication and is now in the process of tapering the drug. She also reports having stable amounts of discomfort over the last year. It is limiting, but she thinks it might actually have been better this year with the use of medical cannabis. She reports having problems with frequent urination, but does believe she is able to stay hydrated. Patient Active Problem List Diagnosis Fibromyalgia Hypertension (HRC) Lupus (HRC) Tobacco use disorder (HRC) Osteoporosis (HRC) SNHL (sensorineural hearing loss) AC (acromioclavicular) joint arthritis Adjustment disorder with depressed mood (HRC) Age-related osteoporosis without current pathological fracture (HRC) Brain aneurysm Stenosis of left carotid artery Chronic SI joint pain (HRC) Frequent headaches Generalized anxiety disorder (HRC) Hyperlipidemia (HRC) Hypothyroidism (HRC) Medical marijuana use Obstructive sleep apnea Onychomycosis of toenail Left-sided tinnitus Subacute cutaneous lupus erythematosus Tinea corporis Tubular adenoma Family History: No history of sudden cardiac . No history of premature CAD Social Hx: Long hx of daily Tobacco use (1/2 pack left before quitting) No drinks for weekly ETOH use No Drug abuse Labs: Reviewed in EMR Medications: Reviewed in EMR Allergies and Adverse Drug Reactions: Reviewed in EMR Recent Cardiac Test: EKG reviewed in MUSE, normal sinus rhythm with possible left atrial enlargement, poor R-wave progression noted Stress Echo report from April 2019 reviewed with patient (Sabas) Exam: BP (!) 163/61 (BP Location: Left Arm, BP Cuff Size: Regular) Pulse 70 Ht 5' 5 (165.1 cm) BMI19.64 kg/m?? Estimated body mass index is 19.64 kg/m?? as calculated from the following: Height as of this encounter: 5' 5 (165.1 cm). Weight as of 06/23/23: 118 lb (59458 g). GEN- patient awake alert and conversant NEURO- moves all 4 extremities appropriately PSYCH- outgoing and positive mood HEAD- normocephalic and atraumatic EYES- no icterus and extraocular muscles are grossly intact NECK- supple, JVP 2cm and no carotid bruits OROPHARYNX- no erythema and no tonsillar exudates LUNGS- clear to auscultation bilaterally CV- RRR, normal s1 and s2, no murmurs, PMI is normal. EXT- no edema, no palpable DPs, but toes warm SKIN- no new rash or venous stasis changes Assessment and Plan: 1) HTN- previously thought to be under good control with lisinopril 40 mg daily and Cardura 2 mg daily. Over the last year blood pressure has been found to be significantly elevated with routine systolic blood pressures between 160 and 200 mmHg. Etiology of this change remains unclear. Blood pressures showed concordance when checked with both right and left upper extremities today. She does not describe any significant change in NSAIDs (meloxicam), new stimulant use, and is actually in the process of tapering prednisone. She reports that discomfort is present, but has actually been better with recent addition of cannabis. We reviewed multiple previous medications that were not well tolerated . She would still benefit from combination medical therapy including likely 3 drugs. I recommended continuing lisinopril, starting carvedilol as prescribed recently, and adding spironolactone. Uptitration of beta-bebe will likely be needed to achieve adequate blood pressures. If blood pressure can not be controlled with these 3 medications, would consider a renal artery stenosis evaluation. She has reportedly completed a recent polysomnography showing no evidence of obstructive sleep apnea contributing. 2) PAD- previous bilateral iliac stents noted. Significant peripheral disease is noted as well. On chronic Praluent per her vascular surgery team. 3) Tobacco Abuse- significant tobacco use history is present. She now reports that she has less than 1/2 pack per day and when she completes that she expects to completely abstain. He is aware of quit resources. I have recommended complete abstinence. 4) Chronic Pain- Nicolle reports significant daily pain related to multiple joints. She carries a diagnosis of fibromyalgia, but also has had experienced signs and symptoms consistent with sciatica. 5) Cerebral Aneurysm- are MCA aneurysm of 7 mm and 3 mm PICA aneurysm noted. Trying to control elevated blood pressure as best as possible has been recommended. Therefore, risk benefit ratio favors trying to be aggressive with blood pressure control. 6) HLD- tolerating Zetia, intolerant to multiple statins per report. Total length of time of the appointment was greater than 45 minutes. This included time spent reviewing past medical records, cardiac tests, and time spent [id number] with patient. documented in this encounter Plan of Treatment Upcoming Encounters Date Type Department Care Team (Late st Contact Info) Description 09/22/2023 10:45 AM CDT Appointment [facility] [address] [place] [address] Desilet, Freeman W, DO [address] [place], [place] [address] 10/04/2023 10:00 AM CDT Appointment [facility] [address] [place], [place] [address] [place] [address] [place] [address] [id number] documented as of this encounter Procedures Procedure Name Priority Date/Time Associated Diagnosis Comments ECG 12 LEAD OUTPATIENT Routine 08/26/2023 3:00 PM CDT Hypertension, unspecified type (HRC) documented in this encounter Results * ECG 12 Lead Outpatient (08/26/2023 3:00 PM CDT) Ventricular Rate 66 BPM [facility] Atrial Rate 66 BPM [facility] P-R Interval 174 ms [facility] QRS Duration 80 ms [facility] QT 368 ms [facility] QTc 385 ms [facility] P [place] 77 degrees MUSE [facility] R [place] 73 degrees MUSE [facility] T [place] 81 degrees MUSE [facility] 08/26/2023 3:00 PM [...] Howell III, MD PN ECG ORDERABLE S [facility] [address] [place] [id number] documented in this encounter Visit Diagnoses Diagnosis Hypertension, unspecified type (HRC)- Primary Fibromyalgia Mylagia and myositis, unspecified Tobacco use disorder (HRC) Tobacco use disorder Brain aneurysm Cerebral aneurysm, nonruptured PAD (peripheral artery disease) (HRC) Unspecified disorders of arteries and arterioles Mixed hyperlipidemia (HRC) Mixed hyperlipidemia documented in this encounter Care Teams Dance Master Relationship Specialty Start Date End Date Dalton Canales MD [address] [place] [address] PCP - General Family Practice 06/23/23 documented as of this encounter
--- OUTSIDE RECORDS SUMMARY | 2023-08-30 13:16 | XMS_ITS | Encounter Summary ---
Author Name Unknown Organization [facility] Address [address] [place] [address] Care Team Providers Care Fruit Thinner Machine Operator Name Role Phone Dalton Esqueda MD Primary Care Provider Reason for Visit * Reason Comments Referral Systemic lupus eryth ematosus & Tinea corporis Skin is flaring for the last two months. Completed two round of fluconazole 200 mg x 7 days. Using triamcinolone cream. Clobetasol ointment for severe flares. * Consult/Transfer Care (Routine) - New Request Specialty Diagnoses / Procedures Referred By Jonathan t Referred To Contact Diagnoses Systemic lupus erythematosus, unspecified SLE type, unspecified organ involvement status (HRC) Merrickea corporis Freeman Lopez DO [address] [place] [address] Referral ID Status Reason Start Date Expiration Date V isits Requested Visits Authorized [id number] New Request 06/23/2023 09/21/2024 1 1 Encounter Details Date Type Department Care Team (Late st Contact Info) Description 07/05/2023 1:15 PM CDT Office Visit [facility] [address] [place], [place] [address] Eva Mars MD [address] [place] [address] Systemic lupus erythematosis (HRC) (Primary Dx); Cutaneous lupus erythematosus; Rash Social History Tobacco Use Types Packs/Day Years Used Date Smoking Tobacco: Every Day Cigarettes Smokeless Tobacco: Never Sex and Gender Information Value Date Recorded Sex Assigned at Not on file Gender Identity Not on file Sexual Orientation Not on file documented as of this encounter Patient Instructions * Patient Instructions* Milly Murray Manuel, NEAL - 07/05/2023 1:15 PM CDT Images from the original note were not included. Care Instructions after a Punch Biopsy/Surgery When do I start changing the bandage on my punch biopsy/surgery site? Leave the original bandage/dressing in place for 24 to 48 hours. If you develop bleeding from the site, apply firm pressure directly over the bandage, using the heel of your hand, for [address] bandage on top of the first one - don???t keep removing and replacing dressings. NO PEEKING! Notify us if the bleeding still does not stop. How do I change the bandage on my punch biopsy/surgery site? Clean the area once a day with warm soap and water. Gently pat dry the area. Use a cotton-tipped applicator to gently remove any crust or scab that has formed over your sutures. After the area has been cleaned and is dry, apply a small amount of petroleum jelly or Aquaphor healing ointment and apply a new bandage. We prefer that you do not use an antibacterial ointment (i.e. bacitracin, Neosporin) as many people develop a hypersensitivity including a rash and even blistering related to these. Is it okay to shower after having a punch biopsy/surgery? Showering is okay, but please do not soak in a bathtub, hot tub, or pool. This will slow the healing process and may create infection. When can I stop bandaging my punch biopsy/surgery site? Continue the wound care process until stitches are removed. Complete healing usually takes 2-4 weeks. Wounds heal best when kept moist, try not to let the area dry out. Letting them open to air, drying out, and having a scab form actually causes wounds to take longer to heal. If your skin is getting sensitive to the bandage, use gauze and paper tape. Can I exercise after having a punch biopsy/surgery? Avoid exercising for 2 days and with stitches, you will want to restrict your physical activity to avoid strenuous movements that will cause stretching and pulling of the skin for 2 weeks. What signs or symptoms should I call the dermatology department about? Infection after a biopsy or surgery is not likely, but can occur. Mild amounts of redness, bruising, swelling, discomfort and a clear to yellowish to blood- tinged discharge are normal. Signs of Infection include: fever, increasing pain, blood blister, drainage of pus, and extreme heat from the site. Please call the clinic if you experience any of these symptoms. When should my sutures be removed? Your care team will help you schedule a suture removal appointment. Depending on the location on your body, sutures are usually removed within 14 days. When will I receive my skin biopsy results? Your skin biopsy specimen will be sent to our laboratory for processing. Your clinician will contact you with the results of this pathology report when it is available. Typically you will be contacted 7 to 14 days after your biopsy or procedure. Our pathology services will be listed separately on your bill. If you have further questions about the biopsy process or if you have not received your biopsy results within 2 weeks, please call the clinic. Method for Removing Sutures (Stitches) If there is redness, swelling, drainage, or concern for infection in the area you wish to remove sutures, please call the dermatology clinic before doing this procedure and ask to speak with a nurse. Be sure to clean your scissors and tweezers with rubbing alcohol before and after use! Grasp the knot of the first suture and raise it off the skin with tweezers. This will expose a small portion of the suture that was below skin level. Place the tip of the scissors against the skin and cut through the exposed portion of the suture. Then, still holding the knot with the tweezers, pull the cut suture up and out of the skin in a smooth continuous motion. Repeat process for each additional stitch. documented in this encounter Progress Notes * Eva Mars MD - 07/05/2023 1:15 PM CDTAddended by: EVA MARS on: 07/11/2023 02:42 PM Modules accepted: Orders * Eva Mars MD - 07/05/2023 1:15 PM CDT DERMATOLOGY OFFICE VISIT Last Visit: new Dermatologic history: Systemic lupus erythematosus (SLE) - characterized by inflammatory arthritis, severe diffuse rash, subacute cutaneous lupus, high titer positive JUJU, positive SSA, positive SSB, hypocomplementemia, and leukopenia Chief Complaint Patient presents with Referral Systemic lupus erythematosus & Tinea corporis Skin is flaring for the last two months. Completed two round of fluconazole 200 mg x 7 days. Using triamcinolone cream. Clobetasol ointment for severe flares. History of Present Illness: Nicolle Covington is a 68 y.o. female who presents for Flaring of her skin rash. She has a historyof SLE, followed in rheumatology. Currently on CellCept 500 mg twice daily, prednisone 7.5 mg dailyand Plaquenil 200 mg daily. [place] oil on eyelids. Reports that she wanted to reestablish with Dermatology as she previously has been missed diagnosishaving a flare of her lupus and actually had widespread fungal infection. Has been treated with fluconazole already but continues to flare. Looking for help with treatment of her skin rash. Currentlyusing clobetasol, triamcinolone to treat skin lesions on her upper arms and thighs. They are not particularly itchy. Also has redness and dryness of her eyelids, uses castor oil for this. Past Medical History and Family History: Reviewed and updated in [facility] Social History: She lives in [place] Medications: The patient has a current medication list which includes the following prescription(s): acetaminophen, alendronate, aspirin, cholecalciferol, doxazosin, drug not in computer, drug not in computer, ezetimibe, fluconazole, hydroxychloroquine, lisinopril, magnesium bisglycinate, medical cannabis, melox icam, multiple vitamin, mycophenolate, naltrex, omeprazole, ondansetron, praluent, prednisone, probiotic, and sorbitol-saccharin. Allergies: The patient is allergic to fentanyl, hydralazine, infliximab, amoxicillin-pot clavulanate, duloxetine, erythromycin, gabapentin, hydrochlorothiazide, hydroxychloroquine, sulfasalazine, tetracycline, and venlafaxine. Review of Systems: No other skin, hair, or nail concerns today. Physical Examination: General: Well-appearing female, in no distress, alert and oriented. Skin: examination of the scalp, face, chest, back, bilateral arms, lower legs and feet was performed today. Pertinent findings as below. Exam otherwise was normal. Combined exam, Assessment and Plan: 1. Systemic lupus erythematosis (HRC) 2. Cutaneous lupus erythematosus 3. Rash Right Upper Arm - Posterior Arcuate and annular pink plaques with central clearing on upper arms and thighs Skin Biopsy (No CPT) - Right Upper Arm - Posterior Type of biopsy: punch Informed consent: discussed and consent obtained Timeout: patient name, date of , surgical site, and procedure verified Procedure prep: Patient was prepped and draped in usual sterile fashion Prep type: Isopropyl alcohol Anesthesia: the lesion was anesthetized in a standard fashion Anesthetic: 1% lidocaine w/ epinephrine 1-100,000 local infiltration Punch size: 4 mm Suture size: 4-0 Suture type: Prolene (polypropylene) Suture removal (days): 14 Hemostasis achieved with: suture Outcome: patient tolerated procedure well Post-procedure details: wound care instructions given Specimen 1 - Surgical Path, Dermatology Clinical Impression: SCLE r/o tinea corporis (pt has SLE, on immunosuppression, h/o tinea corporis) Discussed with the patient that I feel that SLE manifestation of her SLE is most likely. However can not completely rule out tinea corporis. As she has recently been treated with fluconazole, FABRICIO likely less sensitive. Discussed punch biopsy for more definitive diagnosis. Patient agreeable. Follow up: Return to clinic Pending biopsy results, sooner for new concerns. Eva Mars MD [facility] documented in this encounter Plan of Treatment Upcoming Encounters Date Type Department Care Team (Late st Contact Info) Description 09/22/2023 10:45 AM CDT Appointment [facility] [address] [place], [place] [phone] DesiletFreeman DO [address] [place], [place] [address] 10/04/2023 10:00 AM CDT Appointment [facility] [address] [place] [address] Eva Mars MD [address] [place], [place] [phone] documented as of this encounter Procedures Procedure Name Priority Date/Time Associated Diagnosis Comments SKIN BIOPSY Routine 07/05/2023 1:17 PM CDT Rash SURGICAL PATHOLOGY, DERMATOLOGY Routine 07/05/2023 1:17 PM CDT Rash documented in this encounter Results * Skin Biopsy (No CPT) (07/05/2023 1:17 [...] details: wound care instructions given ?? Eva Mars MD DERM PROCEDURE ORDER ZA EXTERNAL RESULTS * Surgical Path, Dermatology (07/05/2023 1:17 PM CDT) Case Report Surgical Pathology Report ? Case: [id number] ? Authorizing Provider: ??Eva Mars MD ? Collected: ? 07/05/2023 1317 ? Ordering Location: ? [facility] ? Received: ?07/06/2023 0917 ? Pathologist: ? Romero Cervantes MD ? Specimen: ?Skin, Right Upper Arm - Posterior ? 07/11/2023 2:18 PM CDT [facility] [address] DERMATOLOGY FINAL DIAGNOSIS A. Skin, Right [...] if clinically indicated. 07/11/2023 2:18 PM T [facility] [address] DERMATOLOGY Clinical Information Clinical Impression: SCLE r/o tinea corporis (pt has SLE, on immunosuppressio n, h/o tinea corporis) 07/11/2023 2:18 PM T [facility] [address] DERMATOLOGY Microscopic Description Microscopic examination is performed. 07/11/2023 2:18 PM T [facility] [address] DERMATOLOGY Special Stains The stain controls have been reviewed and stain appropriately. 07/11/2023 2:18 PM [facility] [address] DERMATOLOGY Technical Information A portion of the technical [place] [address]. 07/11/2023 2:18 PM T [facility] [address] DERMATOLOGY Gross Description A: Received in formalin, labeled with the patient's name and Skin, Right Upper Arm - Posterior is a 4 x 4 x 5 mm punch biopsy of skin. The specimen is marked with blue ink, bisected, and submitted entirely in one cassette. TV 07/11/2023 2:18 PM T [facility] [address] DERMATOLOGY Embedded Images 07/11/2023 2:18 PM T [facility] [address] DERMATOLOGY Skin (Skin) 07/05/2023 1:17 PM CDT 07/06/2023 9:17 AM CDT Comment:Clinical Impression: SCLE r/o tinea corporis (pt has SLE, on immunosuppression, h/o tinea corporis) Eva Mars MD LAB PATHOLOGY [facility] [address] [place] [id number] [address] documented in this encounter Visit Diagnoses Diagnosis Systemic lupus erythematosis- Primary Cutaneous lupus erythematosus Lupus erythematosus Rash Rash and other nonspecific skin eruption documented in this encounter Care Teams Fruit Thinner Machine Operator Relationship Specialty Start Date End Date Dalton Esqueda MD [address] [place] [address] PCP - General Family Practice 06/23/23 documented as of this encounter
--- OUTSIDE RECORDS SUMMARY | 2023-08-30 13:17 | XMS_ITS | Clinical Summary ---
Author Name Unknown Organization [facility] s [facility] Address [place], [place] [address] Care Team Providers Care Relays Draftsperson Name Role Phone Theresa Vázquez PhD, Unavailable [phone] Abhinav Miranda MD Unavailable [phone] [facility], [facility] Unavailable [phone] Rambo Cordova MD Unavailable Abhinav Miranda MD Unavailable [phone] Dalton Esqueda MD Primary Care Provider + Allergies Active Allergy Reactions Criticality Noted Date Comments Amoxicillin-Pot Clavulanate GI Upset 06/09/19 07 amox ok Diltiazem Hcl Edema 05/25/2017 Duloxetine Diaphoresis,Menta l Status Change,Dizziness 08/25/2016 Venlafaxine Analogues Diarrhea 12/25/2010 Erythromycin GI Upset 06/01/2006 Fentanyl Anaphylaxis,Fortino cardia,Respirator y Arrest High 07/24/2018 Gabapentin Confusion 04/13/2019 Hydrochlorothiazide Lupus Erythematosus,Earnest h 06/10/2016 Hydralazine Lupus Erythematosus,Juju phylaxis High 03/06/2017 Infliximab Rash High 09/28/2019 Also had some lip swelling and face swelling Labetalol *Unknown 11/14/2021 pt voiced concern that she has had adverse reactions previously Hydroxychloroquine Anxiety 08/23/2011 Bsnncjt-Lnq-Qlt Reductase Inhibitors Myalgia 04/01/2015 Sulfasalazine Rash 05/17/2019 Tetracycline Vomiting,GI Upset 07/11/2006 Medications Medication Sig Dispensed Refills Start Date End Date Status aspirin enteric coated 81 mg tablet Take 1 tablet by mouth every 24 hours. 0 2 Active meloxicam 15 mg tabletIndications:S jogren's syndrome, with unspecified organ involvement (HC) TAKE 1 TABLET(15 MG) BY MOUTH EVERY DAY 90 Tablet 2 Active predniSONE (DELTASONE) 10 mg tablet Take 10 mg by mouth once daily with a meal. 2 Active lisinopriL (PRINIVIL; ZESTRIL) 20 mg tabletIndications:E ssential hypertension with goal blood pressure less than 140/90 Take 2 Tablets (40 mg) by mouth once daily. 30 Tablet 2 Active medication order composerIndications :Sjogren's syndrome, with unspecified organ involvement (HC),Lupus (HC),Connective tissue disease (HC) Seeking Health MVI one daily, Mg Oxide 400 mg three times a day, HCL 2 per meal, Super-C complex daily, Liquid IV one daily, [employer] digestive enzymes one with meals, Quercitin 500 mg twice a day 0 2 Active mycophenolate (CellCept) 500 mg tablet one twice a day 0 2 Active doxazosin (CARDURA) 2 mg tablet Take 2 mg by mouth once daily. 3 Active ezetimibe (ZETIA) 10 mg tabletIndications:H yperlipidemia, unspecified hyperlipidemia type Take 1 Tablet (10 mg) by mouth once daily. 90 Tablet 3 3 Active medication order composerIndications :Sjogren's syndrome, with unspecified organ involvement (HC) naltrexone 5.5 mg caps, one cap qhs 100 Capsule 2 3 Active alirocumab (Praluent Pen) 75 mg/mL pnijIndications:Hyp erlipidemia, unspecified hyperlipidemia type Inject 75 mg subcutaneous every 2 weeks. 6 mL 3 3 Active fluconazole (DIFLUCAN) 200 mg tabletIndications:S kin rash one tab daily for 7 days 7 Tablet 4 08/01/19 24 Discontinu ed(*Patien t states no longer taking) Active Problems Problem Noted Date Diagnosed Date Dizziness 11/15/2021 Elevated troponin 11/15/2021 Brain aneurysm 11/15/2021 Protein-calorie malnutrition 06/25/2021 Tubular adenoma 10/02/2020 Overview: Repeat colonoscopy in 5 years Bilateral asymmetric sensorineural hearing loss 07/02/2020 Other specified postprocedural states 06/22/2019 Medical marijuana use 07/24/2018 Overview: using oils-both medical marijuana and CBD Adverse effect of narcotic 07/24/2018 Overview: see hospitalization 02/2017 Fentanyl Age-related osteoporosis wit hout current pathological fracture 03/28/2018 Obstructive sleep apnea 03/23/2018 Hypothyroidism 06/30/2017 Stenosis of left carotid artery 03/01/2017 Controlled substance agreement with [facility] 12/21/19 17 Chronic SI joint pain 12/20/2016 Tinea corporis 11/01/2016 Onychomycosis of toenail 11/01/2016 Sjogren's syndrome 10/04/2016 Brain aneurysm 08/28/2016 Frequent headaches 08/28/2016 Deafness in left ear 11/20/2015 Left-sided tinnitus 11/20/2015 Subacute cutaneous lupus erythematosus 5 Fibromyalgia 03/31/2015 Midline low back pain with sciatica 03/31/2015 Undifferentiated connective tissue disease 03/09 Generalized anxiety disorder 06/20/2014 Hypertension 08/23/2011 Carotid stenosis, right 08/17/2011 Overview: 08/26/11: Right carotid endarterectomy JUJU positive 07/21/2011 Overview: followed by rheumatology, plaquenil Adjustment disorder with depressed mood 04/09/20 07 Other and unspecified hyperlipidemia 07/11/2006 Overview: does not tolerate statins: referral to cardiology Tobacco use disorder 07/11/2006 Hypertensive urgency Resolved Problems Problem Noted Date Diagnosed Date Resolved Date Hypothyroid 03/01/2017 07/03/2017 Hypertension 09/08/2016 07/03/2017 Sensorineural hearing loss of right ear 11/20/2015 07/02/2020 Lupus 03/31/2015 04/01/2015 Anxiety state, unspecified 09/27/2013 0 07/03/2017 Numbness and tingling 07/28/20112013 Sensorineural hearing loss, unspecified 03/24/2007 11/20/2015 Depressive disorder, not elsewhere classified 07/12/19 07 08/29/2013 Disorders of bursae and tend ons in shoulder region, unspecified 07/11/2006 03/26/2014 Symptomatic menopausal or fe male climacteric states 07/11/2006 03/26/2014 Post-op pain 04/15/2017 Encounters Date Type Department Care Team Description 08/15/2023 11:20 AM CDT [facility] [address] [place] [address] O'Grayson Johnson MD Follow Up; Telehealth 08/15/2023 9:00 AM CDT Telemedicine [facility] [address] [place] [address] Theresa Vázquez, PhD, LP Individual Therapy 08/15/2023 Travel 08/01/2023 11:20 AM CDT Telemedicine [facility] [address] [place] [address] O'Grayson Johnson MD Follow Up; Telehealth 08/01/2023 Travel 07/25/2023 12:20 PM CDT Orders Only [facility] [address] [place] [address] Lab, [facility] 07/25/2023 Travel 07/15/2023 9:00 AM CDT Telemedicine [facility] [address] [place] [address] Theresa Vázquez, PhD, LP Individual Therapy 07/15/2023 Travel 06/30/2023 9:00 AM SAP ARIBA CONSULTANT Telemedicine [facility] [address] [place] [address] Theresa Vázquez, PhD, LP Mental Health Intake 06/30/2023 Travel 06/21/2023 Orders Only [facility] Staff, Other Clinical 1 scan: (1-Ord) [facility] 06/06/[address] [facility] [address] [place] [phone] OVitaly, Grayson Contreras MD <No scans attached> from Last 3 Months Immunizations Name Administration Dates Next Due Influenza A (H1N1), Inactiva jolene (Age >=3 Years) 2009 Influenza, IIV3 (Age >=3 years) 03/21/20 13,03/13/2012,02/26/2011,2009,02/06/2009 Influenza, IIV4 01/17/2017, 6,01/15/2015,2013 Pneumococcal Poly,23-Valent (Pneumovax) 04/06/2002 Td (Age >=7 Years) 04/06/2002 Tdap 08/23/2011 Family History Medical History Relation Name Comments Thyroid Disease Daughter 2 Diabetes Daughter 3 type 1 Arthritis Father rheumatoid arth ritis. Cancer-prostate Father Diabetes Father type 2 Other [...] Used Date Smoking Tobacco: Every Day Cigarettes 0.3 33.8 Started: 04/25/1986; Last attempted to quit: 02/11/2020 Smokeless Tobacco: Never Tobacco Cessation:Counseling Given: Yes Alcohol Use Standard Drinks/Week Comments No 0 (1 standard drink = 0.6 oz pur e alcohol) quit for 20 years PHQ-2 Answer Date Recorded PHQ-2 TOTAL SCORE 1 08/15/2023 Social Connections Answer Date Recorded Frequency of Communication with Friends and Fami ly 0 03/24/2023 Financial Resource Strain Answer Date R ecorded Difficulty of Paying Living Expenses 3 03/24/2023 Difficulty of Paying Living Expenses Not on file 03/24/2023 Food Insecurity Answer Date Recorded Worried About Running Out of Food in the Last Ye ar 1 03/24/2023 Transportation Needs Answer Date Record ed Lack of Transportation (Medical) 1 03/24/2023 Housing Stability Answer Date Recorded Unable to Pay for Housing in the Last Year 1 03/24/2023 Sex and Gender Information Value Date Recorded Sex Assigned at Not on file Gender Identity Not on file Sexual Orientation Not on file Obstetrics History Para Term AB IAB SAB Ectopic Multiple Livin g Live Births 1 1 1 Date Outcome GA Total Labor Labor/2nd/3rd Weight Sex Delivery Anes PTL Brigitte A1 A5 Name Cl in Para Last Filed Vital Signs Vital Sign Reading Time Taken Comments Blood Pressure 158/72 10/29/2022 9:39 AM CDT Pulse 80 10/29/2022 9:37 AM CDT Temperature 36.3 ??C (97.4 ??F) 07/17/2022 10:51 AM C DT Respiratory Rate 16 10/21/2022 7:41 AM CDT Oxygen Saturation 96% 10/29/2022 9:37 AM CDT Inhaled Oxygen Concentration - - Weight 54 kg (119 lb) 10/29/2022 9:39 AM CDT Height 165.1 cm (5' 5) 10/21/2022 7:41 AM CDT Body Mass Index 19.8 10/21/2022 7:41 AM CDT Plan of Treatment Upcoming Encounters Date Type Department Care Team (Late st Contact Info) Description 09/08/2023 9:45 AM CDT Telemedicine [facility] [address] [place] [phone] Theresa Vázquez, PhD, LP [address] [place] [address] 09/29/2023 9:45 AM CDT Telemedicine [facility] [address] [place] [address] Theresa Vázquez, PhD, LP [address] [place] [address] 10/10/2023 12:00 PM CDT Tele[facility] [address] [place] [address] Suman'Grayson Johnson MD [address] [place] [address] 10/20/2023 9:45 AM CDT Telemedicine [facility] [address] [place] [phone] Theresa Vázquez, PhD, LP [address] [place] [address] 10/26/2023 8:30 AM CDT Appointment [facility] [address] [place] [address] 10/26/2023 9:15 AM CDT Appointment [facility] [address] [place] [address] 10/26/2023 10:00 AM CDT Appointment [facility] [address] [place] [address] 10/26/2023 11:15 AM CDT Office Visit [facility] [address] [place] [phone] Ousmane Joseph MBBS [address] [place] [address] Health Maintenance Due Date Last Done Comments COVID-19 vaccine series (#1) 1959 Zoster (shingles) series for age 50+ (1 of 2) 1973 Pneumococcal series for age 65+ (2 of 2 - PCV) 04/06/2003 04/06/2002 Medicare Wellness for age 65+ 2019 Mammogram for age 45-75 03/07/2020 03/07/20 19, 02/24/2018, 04/12/2016, Additional history exists Tetanus booster 08/22/2021 08/23/2011, 04/06/2002 BMI (ht and wt on same day) for age 18+ 10/22/2023 10/21/2022, 06/10/2021, 05/06/2021, Additional history exists Influenza for age 65+ 12/25/2023 01/17/2017 , 03/03/2016, 01/15/2015, Additional history exists Depression screening for age 12+ 08/14/2024 08/15/2023, 08/15/2023, 07/15/2023, Additional history exists Colonoscopy through age 75 10/02/202510/02, 04/05/2012, 04/05/2012, Additional history exists Lipids for age 45-75 01/14/2027 01/14/2022, 06/15/2021, 02/22/2020, Additional history exists Tdap Completed 08/23/2011 DEXA/DXA scan for age 65+ Completed 2019, 03/20/2018, 04/07/2007 Hepatitis C screening for ag e 18-79 Completed 04/28/2021, 03/06/2015 Medical Devices Implanted Type Area Drill Sharpener Operator Device Identifier Shelf Expiration Date Model / Serial / Lot Sut Perkins [id number] Bio Swivelock - [id number] Implanted:Qty: 4 on 04/12/2007 at [facility] Right: Shoulder [employer] [id number] L# / / [id number] Fiberchain 7mm10 Loops - [id number] Implanted:Qty: 4 on 04/12/2007 at [facility] Right: Shoulder [employer] AR-[id number]# / / Patch Vasc 0.8x8cm Biological Peripatch - [id number] Implanted:Qty: 1 on 08/26/2011 by Brain Nolasco MD at [facility] Right: Carotid Artery [employer] 08/25/2013 0.8P8# / / [id number] Graft Vasc 0.3x3in Hemashield Stra Fabric Knitted Dbl - [id number] Implanted:Qty: 1 on 03/01/2017 by Brain Quiroga MD at [facility] Left: Carotid Artery [employer] 06/22/2021 [id number]# / / [id number] Procedures Procedure Name Priority Date/Time Associated Diagnosis Comments SCAN CORRESP-DIAGNOSTICS 08/25/2023 3:10 PM CDT VITAMIN D 25 (DEFICIENCY) Routine 07/25/2023 10:37 AM CDT Vitamin D deficiency SCAN CORRESP-DIAGNOSTICS 06/21/2023 2:17 PM SAP ARIBA CONSULTANT LIPID PANEL W REFLEX MEASURED LDL Routine 01/14/2022 7:58 AM CDT Pure hypercholesterolemia Dyslipidemia Statin intolerance ANTI HCV Today 04/28/2021 10:51 AM SAP ARIBA CONSULTANT Leukopenia, unspecified type COLONOSCOPY 10/02/2020 8:44 AM CDT XR DXA BONE DENSITY 2 SITES AXIAL Routine 02/22/2020 1:20 PM CDT Chronic midline low back pain with right-sided sciatica Fibromyalgia Mixed connective tissue disease (HC) Sjogren's syndrome with myopathy (HC) XR MAMMO BILAT SCREENING Routine 03/07/2019 3:23 PM SAP ARIBA CONSULTANT Visit for screening mammogram from Last 3 Months or Most Recently Relevant to Health Maintenance Results * SCAN CORRESP-DIAGNOSTICS (08/25/2023 3:10 PM CDT) Narrative 08/25/2023 3:10 PM CDT Ordered by an unspecified provider. Other Clinical Staff OTHER * VITAMIN D 25 (DEFICIENCY) (07/25/2023 10:37 AM CDT) VITAMIN D TOTAL 73.6 20.0 - 80.0 ng/mL 07/25/2023 9:31 PM CDT [facility] Blood BLOOD SPECIMEN / Unknown Butterfly / Unknown 07/25/2023 10:37 AM CDT 07/25/2023 10:38 AM CDT Narrative [facility] - 07/25/2023 9:31 PM CDT ? Vitamin D Status Deficiency: ? <20 ng/mL Insufficiency: ?20-29 ng/mL Sufficiency: ?30-80 ng/mL Possible Toxicity: ??>80 ng/mL Based on [place] of Medicine recommendations Biotin supplements may cause clinically significant interference for this test assay. ??If interference is suspected, it is strongly recommended that biotin is discontinued for at least one week prior to retesting. Grayson Nelson MD SEND OUTS [facility] [address] [place] [address], * SCAN CORRESP-DIAGNOSTICS (06/21/2023 2:17 PM SAP ARIBA CONSULTANT) Narrative 06/21/2023 2:17 PM SAP ARIBA CONSULTANT Ordered by an unspecified provider. Other Clinical Staff OTHER * LIPID PANEL W REFLEX MEASURED LDL (01/14/2022 7:58 AM CDT) Pathologist [facility] CHOLESTEROL,TOTAL 159 100 - 199 mg/dL 01/14/2022 9:36 AM [facility] TRIGLYCERIDES 130 <150 mg/dL 01/14/2022 9:36 AM [facility] HDL CHOLESTEROL 75 >40 mg/dL 9:36 AM [facility] NON-HDL CHOLESTEROL 84 <145 mg/dl 01/14/2022 9:36 AM [facility] CHOL/HDL RATIO 2.12 <4.50 01/14/2022 9:36 AM [facility] LDL CHOLESTEROL 58 <=130 mg/dL 01/14/2022 9:36 AM [facility] VLDL CHOLESTEROL 26 <=30 mg/dL 01/14/2022 9:36 AM [facility] PROVIDER ORDERED STATUS FASTING 01/14/2022 9:36 AM [facility] Blood BLOOD SPECIMEN / Unknown Venipuncture / Unknown 01/14/2022 7:58 AM CDT 01/14/2022 8:18 AM CDT Yu Bradley NP CHEMISTRY [facility] [address] [place] [address] * ANTI HCV (04/28/2021 10:51 AM SAP ARIBA CONSULTANT) HEPATITIS C ANTIBODY Non-React epi Non-React epi 04/28/2021 4:25 PM SAP ARIBA CONSULTANT [facility] Comment:Antibodies to HCV no t detected; does not exclude the possibility of exposure to HCV. Blood BLOOD SPECIMEN / Unknown Venipuncture / Unknown 04/28/2021 10:51 AM SAP ARIBA CONSULTANT 04/28/2021 10:51 AM SAP ARIBA CONSULTANT Giselle Sheffield MD SEND OUTS [facility] [address] [place] [address], [place] * COLONOSCOPY (10/02/2020 8:44 AM CDT) 10/02/2020 8:44 AM CDT Narrative Transcriptions Daysi George DO - 10/06/2020 9:14 PM CDT Patient Name: Nicolle Covington Procedure Date: 10/02/2020 Gender: Female Date of : 1955 Admit Type: Ambulatory Procedure: Colonoscopy Proceduralist: Daysi George MD [facility] Indications/Pre-Op Diagnosis: High risk colon cancer surveillance:Personal history of colonic polyps, Last colonoscopy5 years ago Medications: Propofol per Anesthesia Procedure Description: The patient had risks, benefits and alternatives explained to andgave informed consent. The patient had a stable cardiopulmonary status and judged an adequate candidate for conscious sedation. The colonoscope was passed through the anus and advanced to thececum, identified by appendiceal orifice and ileocecal valve. Thecolonoscopy was technically difficult and complex due to restricted mobility ofthe colon. Successful completion of the procedure was aided bywithdrawing the scope and replacing with the pediatric colonoscope. The patient tolerated the procedure well. The quality of the bowel preparationwas good. The ileocecal valve, appendiceal orifice, and rectum were photographed. Complications: No immediate complications. Estimated Blood Loss & Specimen: Estimated blood loss was minimal. Specimen collected - Yes and sent to Laboratory Findings: A 7 mm polyp was found in the descending colon. The polyp wassessile. The polyp was removed with a hot snare. Resection and retrieval were complete. Verification of patient identification for the specimen was done. Estimated blood loss was minimal. A 3 mm polyp was found in the sigmoid colon. The polyp was sessile.The polyp was removed with a hot snare. Resection and retrieval were complete. Verification of patient identification for the specimen was done. Estimated blood loss was minimal. Non-bleeding internal hemorrhoids were found during retroflexion. The hemorrhoids were Grade I (internal hemorrhoids that do notprolapse). Impressions/Post-Op Diagnosis: - One 7 mm polyp in the descending colon, removed with a hot snare. Resected and retrieved. - One 3 mm polyp in the sigmoid colon, removed with a hot snare. Resected and retrieved. - Non-bleeding internal hemorrhoids. Recommendation: - Discharge patient to home. - Patient has a contact number available for emergencies. The signsand symptoms of potential delayed complications were discussed with the patient. Return to normal activities tomorrow. Written discharge instructions were provided to the patient. - High fiber diet. - Continue present medications. - Await pathology results. - Repeat colonoscopy in 5 years for surveillance based on pathology results. Moderate Sedation: Moderate (conscious) sedation was personally administered by an anesthesia professional. The following parameters were monitored:oxygen saturation, heart rate, blood pressure, and response to care. Daysi George MD 10/06/2020 9:14:07 PM This report has been signed electronically. Note Initiated On: 10/02/2020 8:44 AM Daysi George DO PROCEDURE ORD * (ABNORMAL) XR DXA BONE DENSITY 2 SITES AXIAL (02/22/2020 1:20 PM CDT) Anatomical Region Laterality Modality Spine, HIPS, HIPL, HIPR Bone Den sitometry Narrative 02/25/2020 10:39 AM SAP ARIBA CONSULTANT Please see scanned document for results of this study. Mauricio Muñoz MD DEXA * XR MAMMO BILAT SCREENING (03/07/2019 3:23 PM SAP ARIBA CONSULTANT) Anatomical Region Laterality Modality BREASTS, Breast Left, Breast Right Bilateral Mammography Impressions 03/08/2019 6:55 AM SAP ARIBA CONSULTANT ??There is no radiographic evidence for malignancy. ??Recommend annual mammograms. A lay language report of this examination will be provided to the patient. MAMMOGRAM ASSESSMENT: ??ACR 1 Negative Narrative 03/08/2019 6:55 AM SAP ARIBA CONSULTANT XR MAMMO BILAT SCREENING [[id number]] CLINICAL HISTORY: ??This is an asymptomatic 63 y.o. patient. INDICATION FOR EXAM: Mammogram Screening. TECHNIQUE: CC & MLO views were obtained. ??This digital study was evaluated with the assistance of Computer-Aided Detection. COMPARISON FILM: Yes 02/24/18 [facility] FINDINGS: ??Mammographically, the breast tissue is almost entirely fat. ?? There are no dominant masses, suspicious micro calcifications or areas of architectural distortion. Mauricio Muñoz MD MAMMO from Last 3 Months or Most Recently Relevant to Health Maintenance Insurance Payer Benefit Plan / Group Subscriber ID Effective Dates Phone Address Type [facility] [id number] 2013-Prese [facility] [address] [place] [address] WC WORKERS COMP [employer] [facility] [id number] 2020-Pres [address] [address] [employer] WORK[employer] [facility] [id number] 2020-Pres ent [address] [place] [address] [place] [address] MEDICARE PART B - HB USE ONLY MEDICARE PART B HB ONLY [id number] 2019-Pres ent ATTN: CLAIMS [address] [facility] [place] [address] MEDICARE PART A - HB USE ONLY MEDICARE PART A HB ONLY [id number] 2019-Pres ent ATTN: CLAIMS [address] [facility] [place] [address] MEDICARE - PB USE ONLY MEDICARE PB ONLY [id number] 2019-Pres ent ATTN: CLAIMS [address] [facility] [place] [address] [employer] [facility] [id number] 2019-Pres ent [address] [place] [address] Advance Directives Documents on File Type Date Recorded 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 Healthcare Directive 03/24/2023 023 * Full Code (Latest Code Status on File) Date Activated Date Inactivated Comments 11/14/2021 10:31 PM 11/15/2021 1:58 PM Question Answer Comments Code Status Discussion: Reviewed Preferences * Full Code Date Activated Date Inactivated Comments 05/13/2021 8:14 AM 05/14/2021 2:08 AM Question Answer Comments Code Status Discussion: Unable to Assess Preferences, Provider to review later * Full Code Date Activated Date Inactivated Comments 10/02/2020 7:58 AM 10/02/2020 12:41 PM Question Answer Comments Code Status Discussion: Discussed * Full Code Date Activated Date Inactivated Comments 03/01/2017 12:04 PM 03/08/2017 3:44 PM * Full Code Date Activated Date Inactivated Comments 03/01/2017 5:42 AM 03/01/2017 11:49 AM Care Teams Relays Draftsperson Relationship Specialty Start Date End Date Dalton Esqueda MD [address] [place] [address] PCP - General Family Practice 10/15/20 Theresa Vázquez, PhD, Psychologist Psychology 06/23/11 Abhinav Miranda MD Dermatology Dermatology 08/07/15 [facility] 09/14/16 Rambo Cordova MD [address] [place] [address] Rheumatology Rheumatology 04/07/17 Abhinav Miranda MD Dermatology 07/11/17
--- OUTSIDE RECORDS SUMMARY | 2023-08-30 13:17 | XMS_ITS | Continuity of Care Document ---
Author Name Unknown Organization [facility] Address [address] [place] [address] Phone Care Team Providers Care Oil Recovery Unit Operator Name Role Phone Lemuel Huang MD Unavailable Unavailab le Allergies, Adverse Reactions, Alerts Substance Reaction Status Criticality diltiazem Unknown Active No Information hydralazine Unknown Active No Information duloxetine Unknown Active No Information hydrochlorothiazide Unknown Active No Infor mation Xfkjuzr-RWQ-BwH Reductase Inhibitors Unknown Acti ve No Information [...] [facility], [address], [place], [id number], [place] tel:[phone] [facility] Spinal stenosis, lumbar region with neurogenic claudication Reina guzmán [facility] [place], [address] [place] [address], [address], [place], [place], [id number], [place]. tel:[phone] Referring Provider: Mauricio Weston, [address], [address]. tel:[phone] Office/Outpat ient Visit,New, Mod [facility], [address], [place], [place], [id number], [place] tel:[phone] [facility] Spondylolisthe sis, lumbosacral regionSpinal stenosis, lumbosacral region Kalen Mishra. [facility] [place], [address] [place] [address] [address], [facility] [place], [address], [place]. tel:[phone] Referring Provider: Mauricio Weston, [address], [address]. tel:[phone] Family History Family Member Type Diagnosis Age At Onset No Information Payers Payer name Insurance type Covered libertarian ID [place]aty[place] tip[place] BS [address] [facility] [id number] Social History Type Description Quantity Date Captured [...] Action Status Future Order: Radiology Order AP -Mzd-Erfi-Pbn Lum (APLatFlExL), Ordered on: Ordered History Of Present Illness Encounter Date Complaint History Of Prese nt Illness No Information Functional Status Date Functional Assessmen t No Information Instructions Date Instruction Additional Infor mation No Information Assessments Type Assessment Date No Information Patient Care Teams Name Effective Dates (start - stop) Status Members No Information
--- NOTE | 2023-08-30 13:20 | MM_ITS ---
Patient: AUGUSTO GARCIA Facility:?[facility] Patient ID:?[id number] Site Patient ID:?[id number] Site :?[id number] Study:?XRay-Breast Bilateral 3D screening mammogram w/cad-08/30/2023 2:25:06 PM Ordering Physician:France Final Report: BILATERAL SCREENING MAMMOGRAM WITH COMPUTER-AIDED DETECTION AND TOMOSYNTHESIS TECHNIQUE: CC and MLO views were obtained. These mammographic images have been obtained using full-field digital technique. These mammographic images were interpreted with the benefit of computer-aided detection. Breast Tomosynthesis was used in this interpretation. COMPARISON FILM: 08/17/22. FINDINGS: There are scattered areas of fibroglandular density IMPRESSION: There is no radiographic evidence for malignancy. ASSESSMENT: BI-RADS Category 1: Negative RECOMMENDATION: Routine screening mammogram in 1 year. A lay language report of this examination will be provided to the patient. Dalton Trejo M.D. Diagnostic Radiologist [email or web address] MING/magi R& Transcribed: 8:08 p.m. RAFAEL/Dictated by: Dalton Trejo MD @ 09/01/2023 12:45:00 PM Signed by:?Dalton Trejo MD @09/01/2023 8:29:54 PM (Electronic Signature)
== END 2023-08-30 13:15 | disposition home or self-care (01) ==
LOC: MAMMO 13:15
PROVIDERS: PCP Family Medicine; Visit Provider Family Medicine
DX: Z12.31 Encounter for screening mammogram for malignant neoplasm of breast (principal)
CPT/HCPCS: 77063; 77067

== ENCOUNTER 2023-09-27 10:25 | Outpatient (CLI) | payer MEDICARE, BC, SELFPAY ==
--- OUTSIDE RECORDS SUMMARY | 2023-09-27 10:28 | XMS_ITS | Encounter Summary ---
Author Organization [facility] Address [address] [place] [address] Care Team Providers Care Cotton Machine Operator Name Role Phone Dalton Esqueda MD Primary Care Provider [phone] Reason for Referral * Consult/Transfer Care (Routine) - New Request Specialty Diagnoses / Procedures Referred By Jonathan mora Referred To Contact Cardiology Diagnoses Hypertension, unspecified type (HRC) Freeman Lopez DO [address] [employer] [place] [address] Referral ID Status Reason Start Date Expiration Date V isits Requested Visits Authorized [id number] New Request 08/24/2023 11/22/2024 1 1 Scheduling Instructions Your provider has recommended an appointment with [facility] Cardiology. You can quickly make your appointment online at [email or web address]. You can also call [phone] for help scheduling your appointment. We suggest you call your health insurance company about your coverage and benefits for this appointment. Question Answer Appointment Urgency? Non-Urgent Reason for visit? Refractory hypertension, patient prefers to stand within [facility] network Reason for Visit * Reason Comments Orders Needed Encounter Details Date Type Department Care Team (Late st Contact Info) Description 08/24/2023 Telephone [facility] 3560 Rheumatology [address] [employer] [place], [place] [id number] Freeman Lopez DO [address] [employer] [place], [place] [id number] Orders Needed Social History Tobacco Use Types [...] hypertension. If she can get in with [facility] sooner, I would recommend she do that. She can call cardiology at [phone] to schedule her appointment. Freeman Lopez DO 08/24/2023 1:22 PM * Amanda French RN - 08/24/2023 1:13 PM CDT Patient is requesting for a referral to see cardiology at [facility]. Patient states that she isstill having issues with her blood pressure and did reach out to her PCP but they wanted to refer her to cardiology at [place]; she wants to stay with [facility]. Please advise. documented in this encounter Plan of Treatment Upcoming Encounters Date Type Department Care Team (Late st Contact Info) Description 10/04/2023 10:00 AM CDT Appointment [facility] [address] [place] [address] Eva Long MD [address] [place] [address] 12/22/2023 10:45 AM CDT Appointment [facility] [address] [place] [address] Freeman Lopez DO [address] [place] [address] Scheduled Referrals Name Type Priority Associated Diagnoses Orde r Schedule Cardiology Consult-Adults Referral Routine Hypertension, unspecified type (HRC) Ordered: 08/24/2023 documented as of this encounter Visit Diagnoses Diagnosis Hypertension, unspecified type (HRC)- Primary documented in this encounter Care Teams Cotton Machine Operator Relationship Specialty Start Date End Date Dalton Esqueda MD [address] [place] [address] PCP - General Family Practice 06/23/23 documented as of this encounter
--- OUTSIDE RECORDS SUMMARY | 2023-09-27 10:28 | XMS_ITS | Encounter Summary ---
Author Organization [employer] Address [address] [place] [address] Care Team Providers Care Transmission Worker Name Role Phone Dalton Esqueda MD Primary [...] status (HRC) Merrickea corporis Freeman Lopez DO [address] [place] [address] Referral ID Status Reason Start Date Expiration Date V isits Requested Visits Authorized [id number] New Request 06/23/2023 09/21/2024 1 1 Encounter Details Date Type Department Care Team (Late st Contact Info) Description 07/05/2023 1:15 PM CDT Office Visit [facility] [address] [place] [address] Eva Mars MD [address] [place] [address] Systemic lupus erythematosis (HRC) (Primary Dx); Cutaneous lupus erythematosus; Rash Social History Tobacco Use Types Packs/Day Years Used Date Smoking Tobacco: Every Day Cigarettes Smokeless Tobacco: Never Sex and Gender Information Value Date Recorded Sex Assigned at Not on file Gender Identity Not on file Sexual Orientation Not on file documented as of this encounter Patient Instructions * Patient Instructions* Terri Milly Manuel, NEAL - 07/05/2023 1:15 PM CDT [...] 7.5 mg dailyand Plaquenil 200 mg daily. [place] oil on eyelids. Reports that she wanted [...] [facility] Social History: She lives in [place] Medications: The patient has a current medication [...] sooner for new concerns. Eva Mars MD [facility] documented in this encounter Plan of Treatment Upcoming Encounters Date Type Department Care Team (Late st Contact Info) Description 10/04/2023 10:00 AM CDT Appointment [facility] [address] [place], [place] [address] Eva Mars MD [address] [place], [place] [address] 12/22/2023 10:45 AM CDT Appointment [facility] [address] [place], [place] [address] Desilet, Luke W, DO [address] [place], [place] [phone] documented as of this encounter Procedures Procedure [...] Case Report Surgical Pathology Report ? Case: [id number] ? Authorizing Provider: ??Eva Mars MD ? Collected: ? 07/05/2023 1317 ? Ordering Location: ? [facility] ? Received: ?07/06/2023 0917 ? Pathologist: ? Romero Cervantes MD ? Specimen: ?Skin, Right Upper Arm - Posterior ? 07/11/2023 2:18 PM CDT [facility] 3800 DERMATOLOGY FINAL DIAGNOSIS A. Skin, [...] if clinically indicated. 07/11/2023 2:18 PM T [facility] 3800 DERMATOLOGY Clinical Information Clinical Impression: SCLE r/o tinea corporis (pt has SLE, on immunosuppressio n, h/o tinea corporis) 07/11/2023 2:18 PM T [facility] 3800 DERMATOLOGY Microscopic Description Microscopic examination is performed. 07/11/2023 2:18 PM T [facility] 3800 DERMATOLOGY Special Stains The stain controls have been reviewed and stain appropriately. 07/11/2023 2:[address] [facility] 3800 DERMATOLOGY Technical Information A portion of the [place] [address]. 07/11/2023 2:18 PM T [facility] 3800 DERMATOLOGY Gross Description A: Received in formalin, labeled with the patient's name and Skin, Right Upper Arm - Posterior is a 4 x 4 x 5 mm punch biopsy of skin. The specimen is marked with blue ink, bisected, and submitted entirely in one cassette. TV 07/11/2023 2:18 PM T [facility] 3800 DERMATOLOGY Embedded Images 07/11/2023 2:18 PM T [facility] 3800 DERMATOLOGY Skin (Skin) 07/05/2023 1:17 PM CDT 07/06/2023 9:17 AM CDT Comment:Clinical Impression: SCLE r/o tinea corporis (pt has SLE, on immunosuppression, h/o tinea corporis) Eva Mars MD LAB PATHOLOGY [facility] [address] [place] [address] [address] documented in this encounter Visit Diagnoses Diagnosis Systemic lupus erythematosis- Primary Cutaneous lupus erythematosus Lupus erythematosus Rash Rash and other nonspecific skin eruption documented in this encounter Care Teams Transmission Worker Relationship Specialty Start Date End Date Dalton Esqueda MD [address] [place] [address] PCP - General Family Practice 06/23/23 documented as of this encounter
--- OUTSIDE RECORDS SUMMARY | 2023-09-27 10:28 | XMS_ITS | Continuity of Care Document ---
Author Organization [facility] Address [address] [place] [address] Phone Care Team Providers Care Sourcing Manager Name Role Phone Lemuel Huang MD Unavailable Unavailab le Allergies, Adverse Reactions, Alerts Substance Reaction Status Criticality diltiazem Unknown Active No Information hydralazine Unknown Active No Information duloxetine Unknown Active No Information hydrochlorothiazide Unknown Active No Infor mation Jajdmeo-OVJ-CuT Reductase Inhibitors Unknown Acti ve No Information [...] Visit,Est, [facility], [address], [place], [place], [id number], [place] tel:[phone] [facility] Spinal stenosis, lumbar region with neurogenic claudication Reina guzmán [facility] [place], [address], [address], [place], [place], [id number], [place]. tel:[phone] Referring Provider: Mauricio Weston, [address], [address]. tel:[phone] Office/Outpat ient Visit,New, [facility], [address], [place], [place], [address], [place] tel:[phone] [facility] Spondylolisthe sis, lumbosacral regionSpinal stenosis, lumbosacral region Kalen Mishra. [facility] [place], [address] [place] [address] [address], [place], [place], [id number], [place]. tel:[phone] Referring Provider: Mauricio Weston, [place] [address], [address]. tel:[phone] Family History Family Member Type Diagnosis Age At Onset No Information Payers Payer name Insurance type Covered alliance party ID Authorkatyaa tipaula(s) [id number] [id number] [facility] [id number] Social History Type Description Quantity Date Captured [...] Action Status Future Order: Radiology Order AP -Oms-Qpcj-Pol Lum (APLatFlExL), Ordered on: Ordered History Of Present Illness Encounter Date Complaint History Of Prese nt Illness No Information Functional Status Date Functional Assessmen t No Information Instructions Date Instruction Additional Infor mation No Information Assessments Type Assessment Date No Information Patient Care Teams Name Effective Dates (start - stop) Status Members No Information
--- OUTSIDE RECORDS SUMMARY | 2023-09-27 10:28 | XMS_ITS | Encounter Summary ---
Author Organization [employer] Address [address] [place] [address] Care Team Providers Care Metal Tile Lather Name Role Phone Dalton Esqueda MD Primary Care Provider Encounter Details Date Type Department Care Team (Late st Contact Info) Description 06/23/2023 11:20 AM DIRECTOR OF KIDS Lab Visit [facility] [address] [place] [address] Systemic lupus erythematosus, unspecified SLE type, unspecified [...] Info) Description 10/04/2023 10:00 AM CDT Appointment [facility] [address] [place] [address] Eva Long MD [address] [place] [address] 12/22/2023 10:45 AM CDT Appointment [facility] [address] [place] [address] Freeman Lopez DO [address] [place] [address] documented as of this encounter Procedures Procedure Name Priority Date/Time Associated Diagnosis Comments URINALYSIS ROUTINE, MICRO/CULTURE IF POS Routine 06/23/2023 11:32 AM DIRECTOR OF KIDS Systemic lupus erythematosus, unspecified SLE type, unspecified organ involvement status (HRC) TP/CREA RATIO, URINE Routine 06/23/2023 11:32 AM DIRECTOR OF KIDS Systemic lupus erythematosus, unspecified SLE type, unspecified organ involvement status (HRC) CBC AND DIFFERENTIAL PANEL Routine 06/23/2023 11:28 AM DIRECTOR OF KIDS Systemic lupus erythematosus, unspecified SLE type, unspecified organ involvement status (HRC) DNA DOUBLE STRANDED ANTIBODY IGG (ALBA) Routine 06/23/2023 11:28 AM DIRECTOR OF KIDS Systemic lupus erythematosus, unspecified SLE type, unspecified organ involvement status (HRC) COMPLETE BLOOD COUNT-W/DIFF Routine 06/23/2023 11:28 AM DIRECTOR OF KIDS Systemic lupus erythematosus, unspecified SLE type, unspecified organ involvement status (HRC) COMPREHENSIVE METABOLIC PANEL Routine 06/23/2023 11:28 AM DIRECTOR OF KIDS Systemic lupus erythematosus, unspecified SLE type, unspecified organ involvement status (HRC) C4 COMPLEMENT Routine 06/23/2023 11:28 AM DIRECTOR OF KIDS Systemic lupus erythematosus, unspecified SLE type, unspecified organ involvement status (HRC) C3 COMPLEMENT Routine 06/23/2023 11:28 AM DIRECTOR OF KIDS Systemic lupus erythematosus, unspecified SLE type, unspecified organ involvement status (HRC) documented in this encounter Results * TP/Crea Ratio, Urine (06/23/2023 11:32 AM DIRECTOR OF KIDS) TP/Creat Ratio, Urine Random 06/23/2023 6:12 PM DIRECTOR OF KIDS [facility] Comment:Unable to calculate, raw result outside instrument reportable range. Total Protein, Urine, Random <1 0 - 14 mg/dL 06/23/2023 6:12 PM DIRECTOR OF KIDS [facility] Creatinine, Urine, Random 19 >20 mg/dL mg/dL 06/23/2023 6:12 PM DIRECTOR OF KIDS [facility] Urine URINE SPECIMEN COLLECTION, CLEAN CATCH / Unknown Non-blood Collection / Unknown 06/23/2023 11:32 AM DIRECTOR OF KIDS 06/23/2023 11:32 AM [facility] Surya [facility] - 06/23/2023 6:12 PM [facility] Low urine creatinine values coupled with low urine protein values can artifactually increase the urine protein/creatinine results. Correlate results of ratio with creatinine results. Luke W Desilet DO LAB_1 [facility] [address] [employer] [address] * (ABNORMAL) Urinalysis Routine, Micro/Culture if Pos: Clean Catch (06/23/2023 11:32 AM [facility]) Urine Culture Comment Urinalysis results do not meet criteria for urine culture reflex. 06/23/2023 11:35 AM [facility] Urine Color Straw 06/23/2023 11:35 AM [facility] Urine Clarity Clear Clear 06/23/2023 11:35 AM [facility] Specific [place], Urine <=1.005(A) 1.005 - 1.030 06/23/2023 11:35 AM [facility] PH Urine 6.0 5.0 - 8.0 06/23/2023 11:35 AM [facility] Protein, Urine Qual (mg/dL) Negative Neg/Trace 06/23/2023 11:35 AM [facility] Glucose Urine Qual (mg/dL) Negative Negative 06/23/2023 11:35 AM [facility] Ketones, Urine (mg/dL) Negative Negative 06/23/2023 11:35 AM [facility] Urobilinogen, Urine (EU/dL) 0.2 <2.0 06/23/2023 11:35 AM [facility] Bilirubin Urine Negative Negative 06/23/2023 11:35 AM [facility] Blood, Urine Negative Neg/Trace 06/23/2023 11:35 AM [facility] Nitrite Urine Negative Negative 06/23/2023 11:35 AM [facility] Leukocyte Est. Negative Negative 06/23/2023 11:35 AM [facility] Urine Source Clean Catch 06/23/2023 11:35 AM [facility] Urine URINE SPECIMEN COLLECTION, CLEAN CATCH / Unknown Non-blood Collection / Unknown 06/23/2023 11:32 AM DIRECTOR OF KIDS 06/23/2023 11:32 AM [facility] Luke W Desilet DO LAB_1 [facility] [address] [place] [address] * (ABNORMAL) Complete Blood Count-W/Diff (06/23/2023 11:28 AM [facility]) WBC 9.1 3.5 - 10.5 x10(9)/L 06/23/2023 11:30 AM [facility] RBC 4.45 3.90 - 5.03 x10(12)/L 06/23/2023 11:30 AM [facility] Hemoglobin 13.7 12.0 - 15.5 g/dL 06/23/2023 11:30 AM [facility] HCT 40.7 34.9 - 44.5 % 06/23/2023 11:30 AM [facility] MCV 91.5 80.0 - 100.0 fL 06/23/2023 11:30 AM [facility] MCH 30.8 27.6 - 33.3 pg 06/23/2023 11:30 AM [facility] MCHC 33.7 31.5 - 35.2 g/dL 06/23/2023 11:30 AM [facility] RDW 13.8 11.9 - 15.5 % 06/23/2023 11:30 AM [facility] Platelets 244 150 - 450 x10(9)/L 06/23/2023 11:30 AM [facility] Automated NRBC 0 <=0 /100 WBC 06/23/2023 11:30 AM [facility] Neutrophil Absolute 8.0(H) 1.7 - 7.0 10(9)/L 06/23/2023 11:30 AM [facility] Lymphocyte Absolute 0.8(L) 1.0 - 4.8 10(9)/L 06/23/2023 11:30 AM [facility] Monocyte Absolute 0.3 0.2 - 0.9 10(9)/L 06/23/2023 11:30 AM [facility] Eosinophil Absolute 0.0 0.0 - 0.5 10(9)/L 06/23/2023 11:30 AM [facility] Basophil Absolute 0.0 0.0 - 0.3 10(9)/L 06/23/2023 11:30 AM [facility] Immature Granulocyte % 0.4 0.0 - 0.5 % 06/23/2023 11:30 AM [facility] Blood Venipuncture / Unknown 06/23/2023 11:28 AM DIRECTOR OF KIDS 06/23/2023 11:28 AM DIRECTOR OF KIDS Luke W Desilet DO LAB_1 Performing Organization Address [facility] Co de Phone Number [facility] [address] [place] [address] * C3 Complement (06/23/2023 11:28 AM DIRECTOR OF KIDS) C3 Complement 88 83 - 193 mg/dL 06/23/2023 4:35 PM DIRECTOR OF KIDS [facility] Blood Venipuncture / Unknown 06/23/2023 11:28 AM DIRECTOR OF KIDS 06/23/2023 11:28 AM DIRECTOR OF KIDS LuIndiewalls W Desilet DO LAB_1 Performing Organization Address [facility] de Phone Number [facility] [address] * C4 Complement (06/23/2023 11:28 AM DIRECTOR OF KIDS) C4 Complement 20.0 15.0 - 57.0 mg/dL 06/23/2023 4:35 PM DIRECTOR OF KIDS [facility] Blood Venipuncture / Unknown 06/23/2023 11:28 AM DIRECTOR OF KIDS 06/23/2023 11:28 AM DIRECTOR OF KIDS Luke W Desilet DO LAB_1 Performing Organization Address [facility] Co de Phone Number [facility] [address] * DNA Double Stranded Antibody IgG (ALBA) (06/23/2023 11:28 AM DIRECTOR OF KIDS) Anti-DNA Antibody IgG 12 <200 IU 06/24/2023 2:31 PM DIRECTOR OF KIDS [facility] Anti-DNA Antibody IgG Interpretation Negative Negative 06/24/2023 2:31 PM DIRECTOR OF KIDS [facility] Blood Venipuncture / Unknown 06/23/2023 11:28 AM DIRECTOR OF KIDS 06/23/2023 11:28 AM DIRECTOR OF KIDS Narrative [facility] - 06/24/2023 2:31 PM DIRECTOR OF KIDS The following results were obtained with the [employer] QUANTA Lite dsDNA ALBA. dsDNA values obtained with different manufacturers' assay methods may not be used interchangeably. Freeman Fong Desilet DO LAB_1 [facility] [address] * (ABNORMAL) Comp Metabolic Panel (06/23/2023 11:28 AM DIRECTOR OF KIDS) Pathologist [facility] Sodium 137 136 - 145 mmol/L 06/23/2023 2:41 PM [facility] Potassium 4.7 3.5 - 5.1 mmol/L 06/23/2023 2:41 PM [facility] Chloride 105 98 - 109 mmol/L 06/23/2023 2:41 PM [facility] CO2 22 20 - 29 mmol/L 06/23/2023 2:41 PM [facility] Anion Gap 10 7 - 16 mmol/L 06/23/2023 2:41 PM [facility] Calcium 10.6(H) 8.4 - 10.4 mg/dL 06/23/2023 2:41 PM [facility] Comment:Low serum albumin ma y artificially lower total calcium, without impacting ionized calcium concentrations. If patient has or is at risk for hypoalbuminemia, consider ionized serum calcium to more accurately assess calcium status. BUN 40(H) 7 - 26 mg/dL 06/23/2023 2:41 PM [facility] Creatinine 0.81 0.55 - 1.02 mg/dL 06/23/2023 2:41 PM [facility] Alkaline Phosphatase 49 40 - 150 U/L 06/23/2023 2:41 PM [facility] AST (SGOT) 23 10 - 40 U/L 06/23/2023 2:41 PM [facility] ALT (SGPT) 20 <=55 U/L 06/23/2023 2:41 PM [facility] Bilirubin, Total 0.3 0.2 - 1.2 mg/dL 06/23/2023 2:41 PM [facility] Protein, Total 7.4 6.4 - 8.3 g/dL 06/23/2023 2:41 PM [facility] Albumin 4.0 3.5 - 5.0 g/dL 06/23/2023 2:41 PM [facility] Glucose 119(H) 70 - 100 mg/dL 06/23/2023 2:41 PM [facility] Comment:The given reference range is for the fasting state. Non-fasting reference range for glucose is 70 - 180 mg/dL. GFR, Estimated >60 >60 mL/min/1. 73m2 06/23/2023 2:41 PM [facility] Hours Fasting 4.0 8 - 12 Hours 06/23/2023 2:41 PM [facility] Blood Venipuncture / Unknown 06/23/2023 11:28 AM DIRECTOR OF KIDS 06/23/2023 11:28 AM [facility] Luke W Desilet DO LAB_1 Performing Organization Address City/State/[facility] Co de Phone Number [facility] [address] [place] [address] documented in this encounter Visit Diagnoses Diagnosis Systemic lupus erythematosus, unspecified SLE type, unspecified organ involvement status (HRC) documented in this encounter Care Teams Metal Tile Lather Relationship Specialty Start Date End Date Dalton Esqueda MD [address] [place] [address] PCP - General Family Practice 06/23/23 documented as of this encounter
--- OUTSIDE RECORDS SUMMARY | 2023-09-27 10:28 | XMS_ITS | Encounter Summary ---
Author Organization [employer] Address [address] [place] [address] Care Team Providers Care Metal Flow Coordinator Name Role Phone Dalton Esqueda MD Primary Care Provider Encounter Details Date Type Department Care Team (Late st Contact Info) Description 09/22/2023 1:30 PM CDT Lab Visit [facility] [address] [place] [address] Systemic lupus erythematosus, unspecified SLE type, unspecified organ involvement status (HRC) Social History Tobacco Use Types Packs/Day Years Used Date Smoking Tobacco: Former Cigarettes Smokeless Tobacco: Never Alcohol Use Standard [...] Info) Description 10/04/2023 10:00 AM CDT Appointment [facility] [address] [place] [address] [place] [address] [place] [address] [phone] 12/22/2023 10:45 AM CDT Appointment [facility] [address] [place] [address] Freeman Lopez DO [address] [place] [address] [phone] documented as of this encounter Procedures Procedure Name Priority Date/Time Associated Diagnosis Comments URINALYSIS ROUTINE, MICRO/CULTURE IF POS Routine 09/22/2023 11:21 AM CDT Systemic lupus erythematosus, unspecified SLE type, unspecified organ involvement status (HRC) TP/CREA RATIO, URINE Routine 09/22/2023 11:21 AM CDT Systemic lupus erythematosus, unspecified SLE type, unspecified organ involvement status (HRC) CBC AND DIFFERENTIAL PANEL Routine 09/22/2023 11:16 AM CDT Systemic lupus erythematosus, unspecified SLE type, unspecified organ involvement status (HRC) COMPLETE BLOOD COUNT-W/DIFF Routine 09/22/2023 11:16 AM CDT Systemic lupus erythematosus, unspecified SLE type, unspecified organ involvement status (HRC) COMPREHENSIVE METABOLIC PANEL Routine 09/22/2023 11:16 AM CDT Systemic lupus erythematosus, unspecified SLE type, unspecified organ involvement status (HRC) C4 COMPLEMENT Routine 09/22/2023 11:16 AM CDT Systemic lupus erythematosus, unspecified SLE type, unspecified organ involvement status (HRC) C3 COMPLEMENT Routine 09/22/2023 11:16 AM CDT Systemic lupus erythematosus, unspecified SLE type, unspecified organ involvement status (HRC) documented in this encounter Results * TP/Crea Ratio, Urine (09/22/2023 11:21 AM CDT) TP/Creat Ratio, Urine Random 0.17 0.00 - 0.20 09/22/2023 4:26 PM CDT [facility] Total Protein, Urine, Random 3 0 - 14 mg/dL 09/22/2023 4:26 PM CDT [facility] Creatinine, Urine, Random 18 >20 mg/dL mg/dL 09/22/2023 4:26 PM CDT [facility] Comment:The overall interpre tation for this test is normal (the ratio is within the reference interval). Individual test components may fall outside the reference interval but still give a normal overall test result. Urine URINE SPECIMEN COLLECTION, CLEAN CATCH / Unknown Non-blood Collection / Unknown 09/22/2023 11:21 AM CDT 09/22/2023 11:21 AM CDT Narrative [facility] - 09/22/2023 4:26 PM CDT Low urine creatinine values coupled with low urine protein values can artifactually increase the urine protein/creatinine results. Correlate results of ratio with creatinine results. Luke W Desilet DO LAB_1 [facility] [address] * (ABNORMAL) Urinalysis Routine, Micro/Culture if Pos: Clean Catch (09/22/2023 11:21 AM CDT) Urine Culture Comment Urinalysis results do not meet criteria for urine culture reflex. 09/22/2023 11:28 AM [facility] Urine Color Straw 09/22/2023 11:28 AM [facility] Urine Clarity Clear Clear 09/22/2023 11:28 AM [facility] Specific [place], Urine <=1.005(A) 1.005 - 1.030 09/22/2023 11:28 AM [facility] PH Urine 6.0 5.0 - 8.0 09/22/2023 11:28 AM [facility] Protein, Urine Qual (mg/dL) Negative Neg/Trace 09/22/2023 11:28 AM [facility] Glucose Urine Qual (mg/dL) Negative Negative 09/22/2023 11:28 AM [facility] Ketones, Urine (mg/dL) Negative Negative 09/22/2023 11:28 AM [facility] Urobilinogen, Urine (EU/dL) 0.2 <2.0 09/22/2023 11:28 AM [facility] Bilirubin Urine Negative Negative 09/22/2023 11:28 AM [facility] Blood, Urine Negative Neg/Trace 09/22/2023 11:28 AM [facility] Nitrite Urine Negative Negative 09/22/2023 11:28 AM [facility] Leukocyte Est. Negative Negative 09/22/2023 11:28 AM [facility] Urine Source Clean Catch 09/22/2023 11:28 AM [facility] Urine URINE SPECIMEN COLLECTION, CLEAN CATCH / Unknown Non-blood Collection / Unknown 09/22/2023 11:21 AM CDT 09/22/2023 11:21 AM CDT Luke W Desilet DO LAB_1 [facility] [address] [place] [address] * Complete Blood Count-W/Diff (09/22/2023 11:16 AM [facility]) WBC 8.6 3.5 - 10.5 x10(9)/L 09/22/2023 11:20 AM [facility] RBC 3.96 3.90 - 5.03 x10(12)/L 09/22/2023 11:20 AM [facility] Hemoglobin 12.5 12.0 - 15.5 g/dL 09/22/2023 11:20 AM [facility] HCT 37.4 34.9 - 44.5 % 09/22/2023 11:20 AM [facility] MCV 94.4 80.0 - 100.0 fL 09/22/2023 11:20 AM [facility] MCH 31.6 27.6 - 33.3 pg 09/22/2023 11:20 AM [facility] MCHC 33.4 31.5 - 35.2 g/dL 09/22/2023 11:20 AM [facility] RDW 14.5 11.9 - 15.5 % 09/22/2023 11:20 AM [facility] Platelets 235 150 - 450 x10(9)/L 09/22/2023 11:20 AM [facility] Automated NRBC 0 <=0 /100 WBC 09/22/2023 11:20 AM [facility] Neutrophil Absolute 7.0 1.7 - 7.0 10(9)/L 09/22/2023 11:20 AM [facility] Lymphocyte Absolute 1.1 1.0 - 4.8 10(9)/L 09/22/2023 11:20 AM CDT [facility] Monocyte Absolute 0.4 0.2 - 0.9 10(9)/L 09/22/2023 11:20 AM CDT [facility] Eosinophil Absolute 0.0 0.0 - 0.5 10(9)/L 09/22/2023 11:20 AM T [facility] Basophil Absolute 0.0 0.0 - 0.3 10(9)/L 09/22/2023 11:20 AM [facility] Immature Granulocyte % 0.5 0.0 - 0.5 % 09/22/2023 11:20 AM [facility] Blood Venipuncture / Unknown 09/22/2023 11:16 AM CDT 09/22/2023 11:16 AM CDT LuStreyner W Desilet DO LAB_1 Performing Organization Address City/[facility]/ZIP Co de Phone Number [facility] [address] [place] [address] * (ABNORMAL) C4 Complement (09/22/2023 11:16 AM CDT) C4 Complement 13.0(L) 15.0 - 57.0 mg/dL 09/22/2023 4:37 PM CDT [facility] Blood Venipuncture / Unknown 09/22/2023 11:16 AM CDT 09/22/2023 11:16 AM CDT Luke W Desilet DO LAB_1 [facility] [address] [place] [address] [place] [address] * C3 Complement (09/22/2023 11:16 AM CDT) C3 Complement 85 83 - 193 mg/dL 09/22/2023 4:37 PM CDT [facility] Blood Venipuncture / Unknown 09/22/2023 11:16 AM CDT 09/22/2023 11:16 AM CDT Freeman W Desilet DO LAB_1 [facility] [address] [place], [place] [address] * (ABNORMAL) Comp Metabolic Panel (09/22/2023 11:16 AM CDT) Sodium 140 136 - 145 mmol/L 09/22/2023 1:44 PM [facility] Potassium 4.9 3.5 - 5.1 mmol/L 09/22/2023 1:44 PM [facility] Chloride 108 98 - 109 mmol/L 09/22/2023 1:44 PM [facility] CO2 20 20 - 29 mmol/L 09/22/2023 1:44 PM [facility] Anion Gap 12 6 - 16 mmol/L 09/22/2023 1:44 PM [facility] Calcium 10.2 8.4 - 10.4 mg/dL 09/22/2023 1:44 PM [facility] BUN 37(H) 7 - 26 mg/dL 09/22/2023 1:44 PM [facility] Creatinine 0.94 0.55 - 1.02 mg/dL 09/22/2023 1:44 PM [facility] Alkaline Phosphatase 34(L) 40 - 150 U/L 09/22/2023 1:44 PM [facility] AST (SGOT) 21 10 - 40 U/L 09/22/2023 1:44 PM [facility] ALT (SGPT) 18 <=55 U/L 09/22/2023 1:44 PM [facility] Bilirubin, Total 0.3 0.2 - 1.2 mg/dL 09/22/2023 1:44 PM [facility] Protein, Total 7.0 6.4 - 8.3 g/dL 09/22/2023 1:44 PM [facility] Albumin 4.0 3.5 - 5.0 g/dL 09/22/2023 1:44 PM [facility] Glucose 119(H) 70 - 100 mg/dL 09/22/2023 1:44 PM [facility] Comment:The given reference range is for the fasting state. Non-fasting reference range for glucose is 70 - 180 mg/dL. GFR, Estimated >60 >60 mL/min/1.7 3m2 09/22/2023 1:44 PM CDT [facility] Hours Fasting 0.1 8 - 12 Hours 09/22/2023 1:44 PM T [facility] Comment:Lab unable to obtain patient's fasting status at time of specimen collection. Blood Venipuncture / Unknown 09/22/2023 11:16 AM CDT 09/22/2023 11:16 AM CDT Luke W Desilet DO LAB_1 Performing Organization Address City/State/[facility] Co de Phone Number [facility] [address] [place] [address] documented in this encounter Visit Diagnoses Diagnosis Systemic lupus erythematosus, unspecified SLE type, unspecified organ involvement status (HRC) documented in this encounter Care Teams Metal Flow Coordinator Relationship Specialty Start Date End Date Dalton Esqueda MD [address] [place] [address] PCP - General Family Practice 06/23/23 documented as of this encounter
--- OUTSIDE RECORDS SUMMARY | 2023-09-27 10:28 | XMS_ITS | Encounter Summary ---
Author Organization [employer] Address [address] [place] [address] Care Team Providers Care Tip Cutter Name Role Phone Dalton Esqueda MD Primary Care Provider + [phone] Reason for Referral * Consult/Transfer Care (Routine) - New Request Specialty Diagnoses / Procedures Referred By Jonathan mora Referred To Contact Diagnoses Systemic lupus erythematosus, unspecified SLE type, unspecified organ involvement status (HRC) Tinnestor ahnis Freeman Lopez DO [address] [place] [address] Referral ID Status Reason Start Date Expiration Date V isits Requested Visits Authorized [id number] New Request 06/23/2023 09/21/2024 1 1 Scheduling Instructions Your clinician has recommended an appointment with Ghislaine Naik. You can quickly make your appointment online at [email or web address]. You can also call [phone] for help scheduling your appointment. We suggest you call your health insurance company about your coverage and benefits for this appointment. Question Answer Appointment Urgency? Non-Urgent [employer] [employer] Reason for Visit * Reason Comments Follow-up Encounter Details Date Type Department Care Team (Late st Contact Info) Description 06/23/2023 10:45 AM [facility] Office Visit [facility] [address] [place] [address] Freeman Lopez DO [address] [place] [address] Systemic lupus erythematosus, unspecified SLE type, unspecified [...] Comments Blood Pressure 183/61 06/23/2023 10:40 AM [facility] Pulse 94 06/23/2023 10:40 AM [facility] Temperature - - Respiratory Rate - - Oxygen Saturation - - Inhaled Oxygen Concentration - - Weight 53.5 kg (118 lb) 06/23/2023 10:40 AM [facility] Height - - Body Mass Index 19.64 03/22/2023 2:39 PM [facility] documented in this encounter Patient Instructions * Patient Instructions* Freeman Lopez DO - 06/23/2023 10:45 AM [facility] [employer] It was nice to see you today. [...] Follow up with me in 3 months LATOR CONSTRU[employer] documented in this encounter Progress Notes * [...] with several outside rheumatologists (Dr. Louis at [facility] and Dr. Cordova at [facility]) - several prior medication intolerances as noted below - at presentation to [facility] February 2023, appeared to have clinically stable [...] limits. 2. Osteoporosis -most recent DEXA scan ([facility]) July 2022 with osteoporosis, most severe T-score of -2.8 at the left femoral neck -long-term steroid use for lupus -previously on Evenity briefly but discontinued due to musculoskeletal pain. No prior reported bisphosphonate use prior to [facility]. -started oral alendronate 70 mg weekly February 2023 Rheumatologic Serologies: Positive: JUJU (1:2560 in speckled pattern), SSA, SSB, Ro 52, Ro 60, Negative: RF, CCP, dsDNA, Lyme, hepatitis-B core antibody, hepatitis-C antibody, hepatitis-B surface antigen, HIV antigen/antibody, SPEP Rheumatologic medications: Current: Mycophenolate mofetil (CellCept) 500 mg twice a day Prednisone 10 mg daily (shelter) Hydroxychloroquine 200 mg daily (February 2023-present) Oral [...] SIBO soon as well. She says that zoo director counseled her on chronic NSAID and prednisone [...] being followed with endoscopy by an outside zoo director for gastric ulcers. I counseled her on [...] do this. She has seen an outside seafood preparer in the fasting like to establish care [...] 11:25 AM This documentation was completed using [employer]*Modal Flu[employer] Direct Dictation Software which may contain typographical and word substitution errors. Please contact my office if clarification is needed. LATOR CONSTRUCTOR documented in this encounter Plan of Treatment Upcoming Encounters Date Type Department Care Team (Late st Contact Info) Description 10/04/2023 10:00 AM CDT Appointment [facility] [address] [place] [address] [place] [address] [place] [id number] 12/22/2023 10:45 AM CDT Appointment [facility] [address] [place] [address] Freeman Lopez DO [address] [place], [place] [id number] Scheduled Referrals Name Type Priority Associated Diagnoses Orde r Schedule Dermatology Consult-Adult/Peds Referral Routine Systemic lupus erythematosus, unspecified SLE type, unspecified organ involvement status (HRC) Tinea corporis Ordered: 06/23/2023 documented as of this encounter Results * TP/Crea Ratio, Urine (06/23/2023 11:32 AM [facility]) TP/Creat Ratio, Urine Random 06/23/2023 6:12 PM [facility] [employer] Comment:Unable to calculate, raw result outside instrument reportable range. Total Protein, Urine, Random <1 0 - 14 mg/dL 06/23/2023 6:12 PM [facility] [employer] Creatinine, Urine, Random 19 >20 mg/dL mg/dL 06/23/2023 6:12 PM [employer] [facility] Urine URINE SPECIMEN COLLECTION, CLEAN CATCH / Unknown Non-blood Collection / Unknown 06/23/2023 11:32 AM [facility] 06/23/2023 11:32 AM [facility] - 06/23/2023 6:12 PM [facility] Low urine creatinine values coupled with low urine protein values can artifactually increase the urine protein/creatinine results. Correlate results of ratio with creatinine results. Luke W Desilet DO LAB_1 [facility] [address] * (ABNORMAL) Urinalysis Routine, Micro/Culture if Pos: Clean Catch (06/23/2023 11:32 AM [facility]) Urine Culture Comment Urinalysis results do not meet criteria for urine culture reflex. 06/23/2023 11:35 AM [facility] Urine Color Straw 06/23/2023 11:35 AM [facility] Urine Clarity Clear Clear 06/23/2023 11:35 AM [facility] Specific [place], Urine <=1.005(A) 1.005 - 1.030 06/23/2023 11:35 AM [facility] PH Urine 6.0 5.0 - 8.0 06/23/2023 11:35 AM [facility] Protein, Urine Qual (mg/dL) Negative Neg/Trace 06/23/2023 11:35 AM [facility] Glucose Urine Qual (mg/dL) Negative Negative 06/23/2023 11:35 AM [facility] Ketones, Urine (mg/dL) Negative Negative 06/23/2023 11:35 AM [facility] Urobilinogen, Urine (EU/dL) 0.2 <2.0 06/23/2023 11:35 AM [facility] Bilirubin Urine Negative Negative 06/23/2023 11:35 AM [facility] Blood, Urine Negative Neg/Trace 06/23/2023 11:35 AM [facility] Nitrite Urine Negative Negative 06/23/2023 11:35 AM [facility] Leukocyte Est. Negative Negative 06/23/2023 11:35 AM [facility] Urine Source Clean Catch 06/23/2023 11:35 AM [facility] Urine URINE SPECIMEN COLLECTION, CLEAN CATCH / Unknown Non-blood Collection / Unknown 06/23/2023 11:32 AM [facility] 06/23/2023 11:32 AM [facility] Freeman Valerioilet DO LAB_1 [facility] [address] [place] [address] * C3 Complement (06/23/2023 11:28 AM [facility]) C3 Complement 88 83 - 193 mg/dL 06/23/2023 4:35 PM [facility] Blood Venipuncture / Unknown 06/23/2023 11:28 AM [facility] 06/23/2023 11:28 AM [facility] Freeman Fong Desilet DO LAB_1 Performing Organization Address [facility] Co de Phone Number [facility] [address] * C4 Complement (06/23/2023 11:28 AM [facility]) C4 Complement 20.0 15.0 - 57.0 mg/dL 06/23/2023 4:35 PM [facility] Blood Venipuncture / Unknown 06/23/2023 11:28 AM [facility] 06/23/2023 11:28 AM [facility] Freeman Fong Desilet DO LAB_1 Performing Organization Address City/[facility] Co de Phone Number [facility] [address] * DNA Double Stranded Antibody IgG (ALBA) (06/23/2023 11:28 AM [facility]) Anti-DNA Antibody IgG 12 <200 IU 06/24/2023 2:31 PM [facility] Anti-DNA Antibody IgG Interpretation Negative Negative 06/24/2023 2:31 PM [facility] Blood Venipuncture / Unknown 06/23/2023 11:28 AM [facility] 06/23/2023 11:28 AM [facility] Narrative [facility] - 06/24/2023 2:31 PM [employer] [employer] The following results were obtained with the [employer]ite dsDNA ALBA. dsDNA values obtained with different manufacturers' assay methods may not be used interchangeably. Freeman Fong Desilet DO LAB_1 [facility] [address] * (ABNORMAL) Comp Metabolic Panel (06/23/2023 11:28 AM [facility]) Sodium 137 136 - 145 mmol/L 06/23/2023 2:41 PM [facility] Potassium 4.7 3.5 - 5.1 mmol/L 06/23/2023 2:41 PM [facility] Chloride 105 98 - 109 mmol/L 06/23/2023 2:41 PM [facility] CO2 22 20 - 29 mmol/L 06/23/2023 2:41 PM [facility] Anion Gap 10 7 - 16 mmol/L 06/23/2023 2:41 PM [facility] Calcium 10.6(H) 8.4 - 10.4 mg/dL 06/23/2023 2:41 PM [facility] Comment:Low serum albumin ma y artificially lower total calcium, without impacting ionized calcium concentrations. If patient has or is at risk for hypoalbuminemia, consider ionized serum calcium to more accurately assess calcium status. BUN 40(H) 7 - 26 mg/dL 06/23/2023 2:41 PM [facility] Creatinine 0.81 0.55 - 1.02 mg/dL 06/23/2023 2:41 PM [facility] Alkaline Phosphatase 49 40 - 150 U/L 06/23/2023 2:41 PM [facility] AST (SGOT) 23 10 - 40 U/L 06/23/2023 2:41 PM [facility] ALT (SGPT) 20 <=55 U/L 06/23/2023 2:41 PM [facility] Bilirubin, Total 0.3 0.2 - 1.2 mg/dL 06/23/2023 2:41 PM [facility] Protein, Total 7.4 6.4 - 8.3 g/dL 06/23/2023 2:41 PM [facility] Albumin 4.0 3.5 - 5.0 g/dL 06/23/2023 2:41 PM [facility] Glucose 119(H) 70 - 100 mg/dL 06/23/2023 2:41 PM [facility] Comment:The given reference range is for the fasting state. Non-fasting reference range for glucose is 70 - 180 mg/dL. GFR, Estimated >60 >60 mL/min/1. 73m2 06/23/2023 2:41 PM [facility] Hours Fasting 4.0 8 - 12 Hours 06/23/2023 2:41 PM [facility] Blood Venipuncture / Unknown 06/23/2023 11:28 AM [facility] 06/23/2023 11:28 AM [facility] Luke W Desilet DO LAB_1 Performing Organization Address City/State/[facility] Co de Phone Number [facility] [address] [place] [address] documented in this encounter Visit Diagnoses [...] unspecified documented in this encounter Care Teams Tip Cutter Relationship Specialty Start Date End Date Dalton Esqueda MD [address] [place] [address] PCP - General Family Practice 06/23/23 documented as of this encounter
--- OUTSIDE RECORDS SUMMARY | 2023-09-27 10:28 | XMS_ITS | Clinical Summary ---
Author Organization [employer] Address [address] [place] [address] Care Team Providers Care Welfare Specialist Name Role Phone Dalton Esqueda MD Primary Care Provider Source Comments You are receiving this document as you are listed as the primary care provider,follow-up provider, or the patient has been referred to you for consultation.This is in compliance with the Medicare and[facility] EHR Incentive Program,which states Providers who transition their patient to another setting of careor provider of care or refers their patient to another provider of care shouldprovide summary care record for each transition of care or referral. [employer] Allergies Active Allergy Reactions Criticality Noted Date [...] by mouth daily. 90 Tablet 3 03/22/2023 4 Active alendronate (FOSAMAX) 70 MG tablet Take 1 Tablet (70 mg) by mouth once every week. Take 30 minutes before first [id number] ication. Avoid lying down for 30 minutes. 12 Tablet 3 03/22/2023 4 Active Magnesium Bisglycinate (MAG GLYCINATE OR) Active Multiple Vitamin (MULTIVITAMINS OR) Active cholecalciferol (VITAMIND3) 50 MCG (2000 UT) tablet Take 1 Tablet (2,000 Units) by mouth daily. Active probiotic (AKA SUPER PROBIOTIC) Take 2 Capsules by mouth daily. Active SORBITOL-SACCHARIN OR Active drug not in computer GI response Act epi drug not in computer ProOmega Acti ve triamcinolone acetonide (KENALOG) 0.1 % ointment Apply topically two times a day. To areas of rash 80 g 2 07/11/2023 Active spironolactone (ALDACTONE) 25 MG tablet Take 1 Tablet (25 mg) by mouth daily. 90 Tablet 3 08/26/2023 5 Active carvedilol (COREG) 3.125 MG tablet Take 2 Tablets (6.25 mg) by mouth two times a day with meals. 90 Tablet 3 09/02/2023 5 Active predniSONE (DELTASONE) 2.5 MG tablet Take 3 Tablets (7.5 mg) by mouth daily. 270 Tablet 1 09/22/2023 4 Active mycophenolate (CELLCEPT) 500 MG tablet Take 2 Tablets (1,000 mg) by mouth two times a day. 360 Tablet 1 09/22/2023 5 Active mycophenolate (CELLCEPT) 500 MG tablet Take 1 Tablet (500 mg) by mouth two times a day. 180 Tablet 1 03/23/2023 4 Discontinue d(*Med change OR same med OR reorder, new dose/direct ions) predniSONE (DELTASONE) 2.5 MG tablet Take 3 Tablets (7.5 mg) by mouth daily. 270 Tablet 1 06/23/2023 4 Discontinue d(*Med change OR same med OR reorder, new dose/direct ions) carvedilol (COREG) 3.125 MG tablet Take 1 Tablet (3.125 mg) by mouth two times a day with meals. 90 Tablet 3 08/26/2023 4 Discontinue d(*Med change OR same med OR reorder, new dose/direct ions) mycophenolate (CELLCEPT) 500 MG tablet Take 2 Tablets (1,000 mg) by mouth two times a day. 180 Tablet 1 09/22/2023 4 Discontinue d(*Med change OR same med OR reorder, new dose/direct ions) Active Problems Problem Noted Date Diagnosed Date [...] Encounters Date Type Department Care Team Description 09/23/2023 Telephone [facility] [address] [place] [address]. [place] [address] Freeman Lopez, DO LAB RESULTS 09/22/2023 1:30 PM CDT Lab Visit [facility] [address] [place] [address] Systemic lupus erythematosus, unspecified SLE type, unspecified organ involvement status (HRC) 09/22/2023 10:45 AM CDT Office Visit [facility] [address] [place] [address] Freeman Lopez, DO Systemic lupus erythematosus, unspecified SLE type, unspecified organ involvement status (HRC) (Primary Dx); High risk medication use; Osteoporosis, unspecified osteoporosis type, unspecified pathological fracture presence (HRC); Essential hypertension (HRC) 09/22/2023 Refill [facility] [address] [place] [address]. [place] [address] Freeman Lopez DO Refill 09/09/2023 [facility] [address] [place] [address] Wilfredo Howell III, MD BLOOD PRESSURE, HIGH 09/02/2023 [facility]phone [facility] [address] [place] [address] Wilfredo Howell III, MD BLOOD PRESSURE, HIGH 08/26/2023 3:00 PM CDT [facility] [address] [facility] [address] [place] [phone] Wilfredo Howell III, MD Hypertension, unspecified type (HRC) (Primary Dx); Fibromyalgia; Tobacco use disorder (HRC); Brain aneurysm; PAD (peripheral artery disease) (HRC); Mixed hyperlipidemia (HRC) 08/24/2023 Telephone [facility] [address] [facility] [address] [place] [address] Desilet, Luke W, DO Orders Needed 07/05/2023 1:15 PM CDT Office Visit [facility] [address] [place] [address] Eva Long MD Systemic lupus erythematosis (HRC) (Primary Dx); Cutaneous lupus erythematosus; Rash from Last 3 Months Immunizations Name Administration Dates Next Due Flu Vac (3+ yrs) 03/21/2013, 2,02/26/2011, 010,02/06/2009 Flu Vac Preserv Free (3+yrs) 02/26/2011 [id number] 04/15/2009 Influenza B1U3-31 2009 Influenza IIV4 (Quadrivalent ) 0.5mL (39861) 01/17/2017,03/03/2016,01/15/2015, 014,04/15/2009 PPSV23 (Pneumovax) 04/06/2002 Td 04/06/2002 Tdap 01/31/2023,08/23/2011 Social History Tobacco Use Types Packs/Day Years Used Date Smoking Tobacco: Former Cigarettes Smokeless Tobacco: Never Tobacco Cessation:Counseling Given: Not Answered Alcohol Use Standard Drinks/Week Comments Not Currently 0 (1 standard drink = 0.6 oz pur e alcohol) Sex and Gender Information Value Date Recorded Sex Assigned at Not on file Gender Identity Not on file Sexual Orientation Not on file Last Filed Vital Signs Vital Sign Reading Time Taken Comments Blood Pressure 163/61 08/26/2023 2:54 PM CDT Pulse 60 09/22/2023 10:42 AM CDT Temperature - - Respiratory Rate - - Oxygen Saturation - - Inhaled Oxygen Concentration - - Weight 55.8 kg (123 lb) 09/22/2023 10:42 AM CDT Height 165.1 cm (5' 5) 08/26/2023 2:55 PM CDT Body Mass Index 20.47 08/26/2023 2:55 PM CDT Plan of Treatment Upcoming Encounters Date Type Department Care Team (Late st Contact Info) Description 10/04/2023 10:00 AM CDT Appointment [facility] [address] [place] [address] [place] [address] [place] [phone] 12/22/2023 10:45 AM CDT Appointment [facility] [address] [place], [place] [address] DesFreeman brand DO [address] [place], [place] [id number] Health Maintenance Due Date Last Done Comments Colon Cancer Screening Plan Due 1955 Hep C Screening (Preventive Services) 1955 Medicare Annual Wellness Visit 1955 Cholesterol 1999 Zoster/Shingles (1 of 2) 2004 Pneumococcal 65+ Yrs (2 - PCV) 2019 04/06/2002 Mammogram 03/07/2020 03/07/2019 COVID-19 Vaccine (1 - 2022- season) 2022 Influenza (Season Ended) 2023 017, [...] Procedure Name Priority Date/Time Associated Diagnosis Comments TP/CREA RATIO, URINE Routine 09/22/2023 11:21 AM CDT Systemic lupus erythematosus, unspecified SLE type, unspecified organ involvement status (HRC) URINALYSIS ROUTINE, MICRO/CULTURE IF POS Routine 09/22/2023 [...] SLE type, unspecified organ involvement status (HRC) ECG 12 LEAD OUTPATIENT Routine 3:00 PM CDT Hypertension, unspecified type (HRC) SKIN BIOPSY Routine 07/05/2023 1:17 PM CDT Rash SURGICAL PATHOLOGY, DERMATOLOGY Routine 07/05/2023 1:17 PM CDT Rash from Last 3 Months Results * (ABNORMAL) Urinalysis Routine, Micro/Culture if Pos: Clean Catch (09/22/2023 11:21 AM CDT) Urine Culture Comment Urinalysis results do not meet criteria for urine culture reflex. 09/22/2023 11:28 AM [facility] Urine Color Straw 09/22/2023 11:28 AM [facility] Urine Clarity Clear Clear 09/22/2023 11:28 AM [facility] Specific [place], Urine <=1.005(A) 1.005 - 1.030 09/22/2023 11:28 AM [facility] PH Urine 6.0 5.0 - 8.0 09/22/2023 11:28 AM [facility] Protein, Urine Qual (mg/dL) Negative Neg/Trace 09/22/2023 11:28 AM [facility] Glucose Urine Qual (mg/dL) Negative Negative 09/22/2023 11:28 AM [facility] Ketones, Urine (mg/dL) Negative Negative 09/22/2023 11:28 AM [facility] Urobilinogen, Urine (EU/dL) 0.2 <2.0 09/22/2023 11:28 AM [facility] Bilirubin Urine Negative Negative 09/22/2023 11:28 AM [facility] Blood, Urine Negative Neg/Trace 09/22/2023 11:28 AM [facility] Nitrite Urine Negative Negative 09/22/2023 11:28 AM [facility] Leukocyte Est. Negative Negative 09/22/2023 11:28 AM [facility] Urine Source Clean Catch 09/22/2023 11:28 AM [facility] Urine URINE SPECIMEN COLLECTION, CLEAN CATCH / Unknown Non-blood Collection / Unknown 09/22/2023 11:21 AM T 09/22/2023 11:21 AM [facility] Luke W Desilet DO LAB_1 [facility] [address] [place] [address] * TP/Crea Ratio, Urine (09/22/2023 11:21 AM [facility]) [facility] TP/Creat Ratio, Urine Random 0.17 0.00 - 0.20 09/22/2023 4:26 PM T [facility] Total Protein, Urine, Random 3 0 - 14 mg/dL 09/22/2023 4:26 PM T [facility] Creatinine, Urine, Random 18 >20 mg/dL mg/dL 09/22/2023 4:26 PM T [facility] Comment:The overall interpre tation for this test is normal (the ratio is within the reference interval). Individual test components may fall outside the reference interval but still give a normal overall test result. Urine URINE SPECIMEN COLLECTION, CLEAN CATCH / Unknown Non-blood Collection / Unknown 09/22/2023 11:21 AM CDT 09/22/2023 11:21 AM CDT Narrative [facility] - 09/22/2023 4:26 PM CDT Low urine creatinine values coupled with low urine protein values can artifactually increase the urine protein/creatinine results. Correlate results of ratio with creatinine results. Luke W Desilet DO LAB_1 Performing Organization Address City/State/[facility] Co de Phone Number [facility] [address] * Complete Blood Count-W/Diff (09/22/2023 11:16 AM CDT) WBC 8.6 3.5 - 10.5 x10(9)/L 09/22/2023 11:20 AM [facility] RBC 3.96 3.90 - 5.03 x10(12)/L 09/22/2023 11:20 AM [facility] Hemoglobin 12.5 12.0 - 15.5 g/dL 09/22/2023 11:20 AM [facility] HCT 37.4 34.9 - 44.5 % 09/22/2023 11:20 AM [facility] MCV 94.4 80.0 - 100.0 fL 09/22/2023 11:20 AM [facility] MCH 31.6 27.6 - 33.3 pg 09/22/2023 11:20 AM [facility] MCHC 33.4 31.5 - 35.2 g/dL 09/22/2023 11:20 AM [facility] RDW 14.5 11.9 - 15.5 % 09/22/2023 11:20 AM [facility] Platelets 235 150 - 450 x10(9)/L 09/22/2023 11:20 AM [facility] Automated NRBC 0 <=0 /100 WBC 09/22/2023 11:20 AM [facility] Neutrophil Absolute 7.0 1.7 - 7.0 10(9)/L 09/22/2023 11:20 AM [facility] Lymphocyte Absolute 1.1 1.0 - 4.8 10(9)/L 09/22/2023 11:20 AM [facility] Monocyte Absolute 0.4 0.2 - 0.9 10(9)/L 09/22/2023 11:20 AM [facility] Eosinophil Absolute 0.0 0.0 - 0.5 10(9)/L 09/22/2023 11:20 AM [facility] Basophil Absolute 0.0 0.0 - 0.3 10(9)/L 09/22/2023 11:20 AM [facility] Immature Granulocyte % 0.5 0.0 - 0.5 % 09/22/2023 11:20 AM [facility] Blood Venipuncture / Unknown 09/22/2023 11:16 AM CDT 09/22/2023 11:16 AM CDT Luke W Desilet DO LAB_1 Performing Organization Address City/State/[facility] Co de Phone Number [facility] [address] [place] [address] * (ABNORMAL) Comp Metabolic Panel (09/22/2023 11:16 AM CDT) Sodium 140 136 - 145 mmol/L 09/22/2023 1:44 PM [facility] Potassium 4.9 3.5 - 5.1 mmol/L 09/22/2023 1:44 PM [facility] Chloride 108 98 - 109 mmol/L 09/22/2023 1:44 PM [facility] CO2 20 20 - 29 mmol/L 09/22/2023 1:44 PM [facility] Anion Gap 12 6 - 16 mmol/L 09/22/2023 1:44 PM [facility] Calcium 10.2 8.4 - 10.4 mg/dL 09/22/2023 1:44 PM [facility] BUN 37(H) 7 - 26 mg/dL 09/22/2023 1:44 PM [facility] Creatinine 0.94 0.55 - 1.02 mg/dL 09/22/2023 1:44 PM [facility] Alkaline Phosphatase 34(L) 40 - 150 U/L 09/22/2023 1:44 PM [facility] AST (SGOT) 21 10 - 40 U/L 09/22/2023 1:44 PM [facility] ALT (SGPT) 18 <=55 U/L 09/22/2023 1:44 PM [facility] Bilirubin, Total 0.3 0.2 - 1.2 mg/dL 09/22/2023 1:44 PM [facility] Protein, Total 7.0 6.4 - 8.3 g/dL 09/22/2023 1:44 PM [facility] Albumin 4.0 3.5 - 5.0 g/dL 09/22/2023 1:44 PM [facility] Glucose 119(H) 70 - 100 mg/dL 09/22/2023 1:44 PM [facility] Comment:The given reference range is for the fasting state. Non-fasting reference range for glucose is 70 - 180 mg/dL. GFR, Estimated >60 >60 mL/min/1.7 3m2 09/22/2023 1:44 PM [facility] Hours Fasting 0.1 8 - 12 Hours 09/22/2023 1:44 PM [facility] Comment:Lab unable to obtain patient's fasting status at time of specimen collection. Blood Venipuncture / Unknown 09/22/2023 11:16 AM CDT 09/22/2023 11:16 AM [facility] Freeman Fong Desilet DO LAB_1 [facility] [address] [place] [address], [facility] * (ABNORMAL) C4 Complement (09/22/2023 11:16 AM CDT) C4 Complement 13.0(L) 15.0 - 57.0 mg/dL 09/22/2023 4:37 PM CDT [facility] Blood Venipuncture / Unknown 09/22/2023 11:16 AM CDT 09/22/2023 11:16 AM CDT Luke W Desilet DO LAB_1 Performing Organization Address [facility] de Phone Number [facility] [address] [place] [address] * C3 Complement (09/22/2023 11:16 AM CDT) C3 Complement 85 83 - 193 mg/dL 09/22/2023 4:37 PM CDT [facility] Blood Venipuncture / Unknown 09/22/2023 11:16 AM CDT 09/22/2023 11:16 AM CDT [facility] ZenPayrollilet DO LAB_1 Performing Organization Address [facility] Phone Number [facility] [address] [place] [address] * ECG 12 Lead Outpatient (08/26/2023 3:00 PM CDT) Ventricular Rate 66 BPM [facility] Atrial Rate 66 BPM [facility] P-R Interval 174 ms [facility] QRS Duration 80 ms [facility] QT 368 ms [facility] QTc 385 ms [facility] P [place] 77 degrees [facility] R [place] 73 degrees [facility] T [place] 81 degrees [facility] 08/26/2023 3:00 PM [...] Howell III, MD PN ECG ORDERABLE S Performing Organization Address [facility] Phone Number [facility] [address] [place] [address] * Skin Biopsy (No CPT) (07/05/2023 1:17 [...] Eva Long MD DERM PROCEDURE ORDER ZA Performing Organization Address [facility] Phone Number EXTERNAL RESULTS * Surgical Path, Dermatology (07/05/2023 1:17 PM CDT) Case Report Surgical Pathology Report ? Case: [id number] ? Authorizing Provider: ??Eva Long MD ? Collected: ? 07/05/2023 1317 ? Ordering Location: ? [facility] ? Received: ?07/06/2023 0917 ? Pathologist: ? Romero Cervantes MD ? Specimen: ?Skin, Right Upper Arm - Posterior ? 07/11/2023 2:18 PM CDT [facility] FINAL DIAGNOSIS A. Skin, Right [...] sampling if clinically indicated. 07/11/2023 2:18 PM CDT [facility] Clinical Information Clinical Impression: SCLE r/o tinea corporis (pt has SLE, on immunosuppressio n, h/o tinea corporis) 07/11/2023 2:18 PM CDT [facility] Microscopic Description Microscopic examination is performed. 07/11/2023 2:18 PM CDT [facility] Special Stains The stain controls have been reviewed and stain appropriately. 07/11/2023 2:18 PM CDT [facility] Technical Information A portion of the technical staining was performed at [facility], [address] [place] [address]. 07/11/2023 2:18 PM CDT [facility] Gross Description A: Received in formalin, labeled with the patient's name and Skin, Right Upper Arm - Posterior is a 4 x 4 x 5 mm punch biopsy of skin. The specimen is marked with blue ink, bisected, and submitted entirely in one cassette. TV 07/11/2023 2:18 PM CDT [facility] Embedded Images 07/11/2023 2:18 PM CDT [facility] Skin (Skin) 07/05/2023 1:17 PM CDT 07/06/2023 9:17 AM CDT Comment:Clinical Impression: SCLE r/o tinea corporis (pt has SLE, on immunosuppression, h/o tinea corporis) Eva Long MD LAB PATHOLOGY [facility] [address] [place] [address], [facility] from Last 3 Months Care Teams Welfare Specialist Relationship Specialty Start Date End Date Dalton Esqueda MD [address] [place] [address] PCP - General Family Practice 06/23/23
--- OUTSIDE RECORDS SUMMARY | 2023-09-27 10:28 | XMS_ITS | Encounter Summary ---
Author Organization [employer] Address [address] [place] [address] Care Team Providers Care Insurance Claims Examiner Name Role Phone Dalton Esqueda MD Primary Care Provider [phone] Reason for Visit * Reason Comments BLOOD PRESSURE, HIGH Encounter Details Date Type Department Care Team (Late st Contact Info) Description 09/09/2023 [facility] [employer] [place], [place] [phone] Wilfredo Howell III, MD [address] [place], [place] [phone] BLOOD PRESSURE, HIGH Social History Tobacco Use Types Packs/Day Years [...] as of this encounter Nursing Notes * Yanci Akdins RN - 09/22/2023 9:05 AM CDT Called and spoke to Richa; reviewed recommendation per Dr. Howell. Patient verbalizes understanding with no further questions and will continue monitoring BP/symptoms at home. Plans to call in 1-2 weekswith another update. * Yanci Adkins RN - 09/22/2023 9:03 AM CDT Wilfredo Howell III, MD to Me 09/21/23 5:40 PM Pre with continuing current plan. No further uptitration at this point in Coreg. * Yanci Adkins RN - 09/21/2023 1:31 PM CDT Spoke to Richa; she increased her carvedilol dose to 6.25 mg BID one week ago. She has noted that since increasing her dose she has felt significant fatigue and mentally drugged, not as sharp. Denieslightheadedness/dizziness. Her heart rates have been 45-50s. Blood pressures as follows: 162/64 165/67 125/58 152/56 179/71 144/61 146/55 Dr. Howell, patient is currently taking spironolactone 25 mg once daily, lisinopril 40 mg daily and carvedilol 6.25 mg twice daily. Would you recommend she continue with current carvedilol dose for another week or so to see if side effects improve or do you have any different recommendations? Last office visit with Dr. Howell 08/26/23: Assessment and Plan: 1) HTN- previously thought [...] Zetia, intolerant to multiple statins per report. * Yanci Adkins RN - 09/15/2023 1:48 PM CDT Spoke to Richa; she states that since adding carvedilol 3.125 mg twice daily to her medications regimen her blood pressure has come down some; she states she is not getting the very high readings as often. Her average systolic BP is 167. HR remains 50s-60s. Discussed with Richa that she should increase her carvedilol to 6.25 mg BID and continue to monitor BP. She will call back next week with another update. * Yanci Adkins RN - 09/09/2023 3:22 PM CDT Images from the original note were not included. Voicemail received from Nicolle; she states that she called in last week with an update on blood pressures but hasn't heard back. Per review of telephone encounter dated 09/02/23: Wilfredo Howell III, MD 09/02/23 3:11 PM Note It is expected that BP will take some time to achieve best results. Please have Nicolle increase Coreg to 6.25mg BID and continue spironolactone. Urinary frequency will likely improve soon. Nicolle states that she has not started taking carvedilol at all; she only started the spironolactone 25 mg daily. Her BP remains elevated, provided readings of 188/79, 196/77, 163/66. Heart rate 60s. Recommended that she start carvedilol 3.125 mg BID and call back with an update after being on it for 4-5 days. Patient verbalizes understanding with no further questions. documented in this encounter Plan of Treatment Upcoming Encounters Date Type Department Care Team (Late st Contact Info) Description 10/04/2023 10:00 AM CDT Appointment [facility] [address] [place] [address] [place] [address] [place] [address] 12/22/2023 10:45 AM CDT Appointment [facility] [address] [place] [address] Desilet, Luke W, DO [address] [place], [place] [phone] documented as of this encounter Visit Diagnoses Not on filedocumented in this encounter Care Teams Insurance Claims Examiner Relationship Specialty Start Date End Date Dalton Esqueda MD [address] [place] [address] PCP - General Family Practice 06/23/23 documented as of this encounter
--- OUTSIDE RECORDS SUMMARY | 2023-09-27 10:28 | XMS_ITS | Encounter Summary ---
Author Organization [employer] Address [address] [place] [address] Care Team Providers Care An/Ssn 2 4 Operator Name Role Phone Dalton Esqueda MD Primary Care Provider [phone] Reason for Visit * Reason Comments Follow-up Encounter Details Date Type Department Care Team (Late st Contact Info) Description 09/22/2023 10:45 AM CDT Office Visit [facility] [address] [place], [place] [id number] Desilet, Freeman W, DO [address] [place], [place] [phone] Systemic lupus erythematosus, unspecified SLE type, unspecified organ involvement status (HRC) (Primary Dx); High risk medication use; Osteoporosis, unspecified osteoporosis type, unspecified pathological fracture presence (HRC); Essential hypertension (HRC) Social History Tobacco Use Types Packs/Day [...] Sign Reading Time Taken Comments Blood Pressure - - Pulse 60 09/22/2023 10:42 AM CDT Temperature - - Respiratory Rate - - Oxygen Saturation - - Inhaled Oxygen Concentration - - Weight 55.8 kg (123 lb) 09/22/2023 10:42 AM CDT Height - - Body Mass Index 20.47 08/26/2023 2:55 PM CDT documented in this encounter Patient Instructions * Patient Instructions* Freeman Lopez DO - 09/22/2023 10:45 AM CDT It was good to see you today. We are following up regarding lupus. Your recent skin biopsy showed findings consistent with lupus on the arm lesions. Since you have active skin lesions, we discussed increasing her CellCept dose today. Continue to work with your model dresser on adjusting the blood pressure medicines. It looks like the blood pressures are getting better overall though this will take time. Increase CellCept to 2 tablets twice a day. This is a total dose of 1000 mg twice a day. Continue hydroxychloroquine 200 mg daily Continue prednisone 7.5 mg daily Continue Fosamax 70 mg weekly Continue your vitamin-D supplement Labs today Labs in just over 1 month after the CellCept dose increase. You can get these on 10/26/2023 when you were in the [facility] for other visits. Follow up with me in 3 months. documented in this encounter Progress Notes * Freeman Lopez DO - 09/22/2023 10:45 AM CDT Images from the original note were not included. RHEUMATOLOGY PROGRESS NOTE Patient: Nicolle Covington Preferred Name: Nicolle Reason for visit: Systemic lupus erythematosus (SLE) Other History: Tinea corporis, shingles, hypothyroidism, refractory hypertension, generalized anxiety disorder, hyperlipidemia, tobacco use, peripheral arterial disease, carotid artery stenosis, fibromyalgia, and reported Sjogren's syndrome Rheumatic Disease History: Systemic lupus erythematosus (SLE) - characterized by inflammatory arthritis, severe diffuse rash, subacute cutaneous lupus, Raynaud's, high titer positive JUJU, positive SSA, positive SSB, hypocomplementemia, and leukopenia/lymphopenia - see detailed initial consult note from 03/22/2023. Previously followed with several outside rheumatologists (Dr. Louis at [facility] and Dr. Cordova at [facility]) - several prior medication intolerances as noted below - at presentation to [facility] rheumatology February 2023, appeared to have clinically stable lupus disease activity other than reported history of rash and arthritis flares without significant rash on exam. Was on CellCept 500 mg twice a day and prednisone 10 mg daily. Restarted hydroxychloroquine 200 mg daily with plan to taper prednisone. No evidence of active renal involvement or hypocompl ementemia as of evaluation in February 2023 and May 2023. Has a lymphopenia. Slowly tapering prednisone at rheumatology follow up. - up-to-date on hydroxychloroquine eye exams, last done in May 2023 with OCT. - faint erythematous annular lesions noted arms. History tinea and SCLE. Referred to Dermatology and right upper arm skin biopsy June 2023 with interface dermatitis. 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 In interval, she saw Dermatology and had skin biopsy showing interface dermatitis. Was prescribedtopical triamcinolone. Since using topical triamcinolone and using the pool more frequently she feels like the rash is resolving somewhat on her left arm. Still has some rash on her right arm. No malar rash, oral ulcers, nasal ulcers, or worsening joint pain. Tolerating current medications well andtaking CellCept, prednisone, hydroxychloroquine, and alendronate as prescribed. Her main concern today is blood pressure. Has seen Cardiology for refractory hypertension and recently started spironolactone and titrated carvedilol. Doxazosin was stopped. She is communicating closely with Cardiology regarding medication adjustments and monitoring home blood pressures. Blood pressure elevated in clinic today greater than 200 systolic, though home blood pressures have been in the 150s-160s systolicas noted on her phone which is linked to home blood pressure cuff. Has chronic headaches. No new chest pain. Pain & RAPID3: In flowsheet if completed by patient. OBJECTIVE Physical Examination: VS: Pulse 60 Wt 123 lb (55.8 kg) BMI 20.47 kg/m?? . Blood pressure 201/68. Home blood pressuresrecordings in 150s-160 systolic General: alert, oriented, no acute distress Skin: Erythematous annular lesions, somewhat faint noted on right upper extremity. Small areas of erythema on left upper extremity though not consistently in the form of annular lesions. No malar rash or discoid lupus lesions. Generalized hair thinning. Head / Scalp: non-tender Eyes: Externally clear ENT: moist mucous membranes without ulcerations noted, nares clear without blood Cardio: regular rate and rhythm on auscultation [...] joints. Laboratory Data: Reviewed recent relevant results: 07/25/2023: Twenty-five hydroxyvitamin D within normal limits at 73.6 ng/mL (reference range 20-80) 06/23/2023: Urinalysis negative for blood or protein Urine protein/creatinine ratio unable to be calculated due to low urine protein C3 within normal limits at 88 mg/dL C4 within normal limits at 20 mg/dL DsDNA antibody negative at 12IU (reference range less than 200) Complete metabolic panel with calcium elevated at 10.6 mg/dL, albumin within normal limits, creatinine 0.81, EGFR greater than 60 CBC with differential with elevated ANC at 8000, lymphopenia with lymphocyte count of 100, otherwise within normal limits Radiographic Information: No relevant results in interval Microbiology: No relevant results in interval Pathology: Reviewed recent relevant results: Surgical Path, Dermatology: [id number] Order: [id number] Collected 07/05/2023 13:17 Status: Final result Visible to patient: Yes (seen) Dx: Rash 3 Result Notes Component FINAL DIAGNOSIS A. Skin, Right Upper Arm - Posterior, punch: - Interface dermatitis with dense perivascular inflammatory infiltrate, see comment. COMMENT: The histologic findings are suspicious for a cutaneous manifestation of a connective tissue disorder. The differential diagnosis includes a medication reaction, lichen planus, and other forms of interface/lichenoid dermatitis. A PAS stain performed with proper positive control does not reveal evidence of a fungal infection. Clinical correlation is advised with additional tissue sampling if clinically indicated. at 1418 Clinical Information Clinical Impression: SCLE r/o tinea corporis (pt has SLE, on immunosuppression, h/o tinea corporis) Microscopic Description Microscopic examination is performed. Special Stains The stain controls have been reviewed and stain appropriately. Technical Information A portion of the technical staining was performed at [facility], [address] [place] [address]. Gross Description A: Received in formalin, labeled with the patient's name and Skin, Right Upper Arm - Posterior is a 4 x 4 x 5 mm punch biopsy of skin. The specimen is marked with blue ink, bisected, and submitted entirely in one cassette. TV Resulting Agency [facility] Specimen Collected: 07/05/23 13:17 Last Resulted: 07/11/23 14:18 Assessment/Plan Nicolle Covington is a pleasant 68 y.o. female who presented to the rheumatology department for systemic lupus erythematosus (SLE). Nicolle was seen today for follow-up. Diagnoses and all orders for this visit: Systemic lupus erythematosus, unspecified SLE type, unspecified organ involvement status (HRC) - Comp Metabolic Panel; Future - CBC -W/Diff; Future - C3 Complement; Future - C4 Complement; Future - Urinalysis Routine, Micro/Culture if Pos: Clean Catch; Future - TP/Crea Ratio, Urine; Future High risk medication use - Comp Metabolic Panel; Future - CBC -W/Diff; Future Osteoporosis, unspecified osteoporosis type, unspecified pathological fracture presence (HRC) Essential hypertension (HRC) Other orders - predniSONE (DELTASONE) 2.5 MG tablet; Take 3 Tablets (7.5 mg) by mouth daily. Nicolle presents to the Rheumatology Clinic today for 3-month follow up of systemic lupus erythematosus. SLE is characterized by inflammatory arthritis, severe diffuse rash, subacute cutaneous lupus, Raynaud's, high titer positive JUJU, positive SSA, positive SSB, hypocomplementemia, and leukopenia/lymphopenia. Currently on hydroxychloroquine 200 mg daily, CellCept 500 mg twice a day, prednisone 7.5 mg daily. Also has osteoporosis and takes Fosamax and vitamin D3. In interval, saw Dermatology. Had skin biopsy of annular lesions showing interface dermatitis and lesions are clinically consistent with subacute cutaneous lupus. Has had a tinea history as well. These lesions have improved somewhat with topical triamcinolone, though still has prominent annular lesions on the right arm today. Has been on several immunosuppressive therapies in the past as detailedabove and has had several medication intolerances. Has not been on higher doses of CellCept that she can remember. We discussed titrating the CellCept dose today for better control of cutaneous lupus. Otherwise, recent labs have not suggested worsening hematologic or renal involvement of lupus. Has had bland urinalysis and stable creatinine. Has a lymphopenia though no other cytopenias. Disease otherwise remains relatively well-controlled other than cutaneous manifestations. Has elevated blood pressure on exam today and is following closely with Cardiology for refractory hypertension. Antihypertensives have been recently adjusted. She has using a home blood pressure monitor and blood pressures at home are a bit lower than they are here as they are in the 150s-160 systolic at home. She is in close communication with the cardiology nurse regarding monitoring blood pressure and titrating medications. Plan: -update CBC, CMP, C3, C4, urinalysis, urine protein/creatinine ratio today -repeat CBC and CMP in about 1 month (on 10/26/2023) after CellCept dose increase -counseled on strict photoprotection. -increase CellCept to 1000 mg twice a day -continue prednisone 7.5 mg daily -continue hydroxychloroquine 200 mg daily -continue alendronate 70 mg weekly and vitamin-D supplementation -continue close follow up with Cardiology for hypertension -follow up in the rheumatology clinic in 3 months Freeman Lopez DO 09/22/2023 12:55 PM This documentation was completed using [employer] Dictation Software which may contain typographical and word substitution errors. Please contact my office if clarification is needed. documented in this encounter Plan of Treatment Upcoming Encounters Date Type Department Care Team (Late st Contact Info) Description 10/04/2023 10:00 AM CDT Appointment [facility] [address] [place] [address] Eva Long MD [address] [place] [address] 12/22/2023 10:45 AM CDT Appointment [facility] [address] [place] [address] Desilet, Luke W, DO [address] [place], [place] [phone] Scheduled Orders Name Type Priority Associated Diagnoses Orde r Schedule Comp Metabolic Panel Lab Routine High risk medication use Expected: 10/26/2023, Expires: 01/24/2024 CBC -W/Diff Lab Routine High risk medication use Expected: 10/26/2023, Expires: 01/24/2024 documented as of this encounter Results * TP/Crea Ratio, Urine (09/22/2023 11:21 AM CDT) TP/Creat Ratio, Urine Random 0.17 0.00 - 0.20 09/22/2023 4:26 PM CDT [facility] Total Protein, Urine, Random 3 0 - 14 mg/dL 09/22/2023 4:26 PM CDT [facility] Creatinine, Urine, Random 18 >20 mg/dL mg/dL 09/22/2023 4:26 PM CDT [facility] Comment:The overall interpre tation for this test is normal (the ratio is within the reference interval). Individual test components may fall outside the reference interval but still give a normal overall test result. Urine URINE SPECIMEN COLLECTION, CLEAN CATCH / Unknown Non-blood Collection / Unknown 09/22/2023 11:21 AM CDT 09/22/2023 11:21 AM CDT Narrative [facility] - 09/22/2023 4:26 PM CDT Low urine creatinine values coupled with low urine protein values can artifactually increase the urine protein/creatinine results. Correlate results of ratio with creatinine results. Luke W Desilet DO LAB_1 [facility] [address] [place], [place] [address] * (ABNORMAL) Urinalysis Routine, Micro/Culture if Pos: Clean Catch (09/22/2023 11:21 AM [facility]) Urine Culture Comment Urinalysis results do not meet criteria for urine culture reflex. 09/22/2023 11:28 AM [facility] Urine Color Straw 09/22/2023 11:28 AM [facility] Urine Clarity Clear Clear 09/22/2023 11:28 AM [facility] Specific [place], Urine <=1.005(A) 1.005 - 1.030 09/22/2023 11:28 AM [facility] PH Urine 6.0 5.0 - 8.0 09/22/2023 11:28 AM [facility] Protein, Urine Qual (mg/dL) Negative Neg/Trace 09/22/2023 11:28 AM [facility] Glucose Urine Qual (mg/dL) Negative Negative 09/22/2023 11:28 AM [facility] Ketones, Urine (mg/dL) Negative Negative 09/22/2023 11:28 AM [facility] Urobilinogen, Urine (EU/dL) 0.2 <2.0 09/22/2023 11:28 AM [facility] Bilirubin Urine Negative Negative 09/22/2023 11:28 AM [facility] Blood, Urine Negative Neg/Trace 09/22/2023 11:28 AM [facility] Nitrite Urine Negative Negative 09/22/2023 11:28 AM [facility] Leukocyte Est. Negative Negative 09/22/2023 11:28 AM [facility] Urine Source Clean Catch 09/22/2023 11:28 AM [facility] Urine URINE SPECIMEN COLLECTION, CLEAN CATCH / Unknown Non-blood Collection / Unknown 09/22/2023 11:21 AM T 09/22/2023 11:21 AM CDT Freeman W Desilet DO LAB_1 Performing Organization Address City/[facility]/ZIP Co de Phone Number [facility] [address] [place] [address] * (ABNORMAL) C4 Complement (09/22/2023 11:16 AM CDT) C4 Complement 13.0(L) 15.0 - 57.0 mg/dL 09/22/2023 4:37 PM CDT [facility] Blood Venipuncture / Unknown 09/22/2023 11:16 AM CDT 09/22/2023 11:16 AM CDT Freeman Fong Desilet DO LAB_1 Performing Organization Address [facility] Co de Phone Number [facility] [address] * C3 Complement (09/22/2023 11:16 AM CDT) C3 Complement 85 83 - 193 mg/dL 09/22/2023 4:37 PM CDT [facility] Blood Venipuncture / Unknown 09/22/2023 11:16 AM CDT 09/22/2023 11:16 AM CDT Freeman Fong Desilet DO LAB_1 Performing Organization Address [facility]/ZIP Co de Phone Number [facility] [address] * (ABNORMAL) Comp Metabolic Panel (09/22/2023 11:16 AM CDT) Sodium 140 136 - 145 mmol/L 09/22/2023 1:44 PM CDT [facility] Potassium 4.9 3.5 - 5.1 mmol/L 09/22/2023 1:44 PM CDT [facility] Chloride 108 98 - 109 mmol/L 09/22/2023 1:44 PM CDT [facility] CO2 20 20 - 29 mmol/L 09/22/2023 1:44 PM CDT [facility] Anion Gap 12 6 - 16 mmol/L 09/22/2023 1:44 PM [facility] Calcium 10.2 8.4 - 10.4 mg/dL 09/22/2023 1:44 PM [facility] BUN 37(H) 7 - 26 mg/dL 09/22/2023 1:44 PM [facility] Creatinine 0.94 0.55 - 1.02 mg/dL 09/22/2023 1:44 PM [facility] Alkaline Phosphatase 34(L) 40 - 150 U/L 09/22/2023 1:44 PM [facility] AST (SGOT) 21 10 - 40 U/L 09/22/2023 1:44 PM [facility] ALT (SGPT) 18 <=55 U/L 09/22/2023 1:44 PM [facility] Bilirubin, Total 0.3 0.2 - 1.2 mg/dL 09/22/2023 1:44 PM [facility] Protein, Total 7.0 6.4 - 8.3 g/dL 09/22/2023 1:44 PM [facility] Albumin 4.0 3.5 - 5.0 g/dL 09/22/2023 1:44 PM [facility] Glucose 119(H) 70 - 100 mg/dL 09/22/2023 1:44 PM [facility] Comment:The given reference range is for the fasting state. Non-fasting reference range for glucose is 70 - 180 mg/dL. GFR, Estimated >60 >60 mL/min/1.7 3m2 09/22/2023 1:44 PM [facility] Hours Fasting 0.1 8 - 12 Hours 09/22/2023 1:44 PM [facility] Comment:Lab unable to obtain patient's fasting status at time of specimen collection. Blood Venipuncture / Unknown 09/22/2023 11:16 AM CDT 09/22/2023 11:16 AM T Freeman Fong Desilet DO LAB_1 Performing Organization Address City/State/[facility] Co de Phone Number [facility] [address] [place] [phone] documented in this encounter Visit Diagnoses Diagnosis Systemic lupus erythematosus, unspecified SLE type, unspecified organ involvement status (HRC)- Primary High risk medication use Encounter for long-term (current) use of other medications Osteoporosis, unspecified osteoporosis type, unspecified pathological fracture presence (HRC) Essential hypertension (HRC) Unspecified essential hypertension documented in this encounter Care Teams An/Ssn 2 4 Operator Relationship Specialty Start Date End Date Dalton Esqueda MD [address] [place] [address] PCP - General Family Practice 06/23/23 documented as of this encounter
--- OUTSIDE RECORDS SUMMARY | 2023-09-27 10:28 | XMS_ITS | Encounter Summary ---
Author Organization [employer] Address [address] [place] [address] Care Team Providers Care Ship Engineer Name Role Phone Dalton Canales MD Primary Care Provider [phone] Reason for Visit * Reason Comments CONSULT * Consult/Transfer Care (Routine) - New Request Specialty Diagnoses / Procedures Referred By Contanuradha t Referred To Contact Cardiology Diagnoses Hypertension, unspecified type (HRC) Freeman Lopez W, DO [address] [place] [address] Referral ID Status Reason Start Date Expiration Date V isits Requested Visits Authorized [id number] New Request 08/24/2023 11/22/2024 1 1 Encounter Details Date Type Department Care Team (Late st Contact Info) Description 08/26/2023 3:[address] Consult [facility] [address] Cardiology [address] [place] [address] Wilfredo Howell III, MD [address] [place] [address] Hypertension, unspecified type (HRC) (Primary [...] cm). Weight as of 06/23/23: 118 lb (24855 g). GEN- patient awake alert and conversant [...] medical records, cardiac tests, and time spent [id number] with patient. documented in this encounter Plan of Treatment Upcoming Encounters Date Type Department Care Team (Late st Contact Info) Description 10/04/2023 10:00 AM CDT Appointment [facility] [address] [place] [address] Eva Long MD [address] [place] [address] 12/22/2023 10:45 AM CDT Appointment [facility] [address] [place], [place] [phone] Desilet, Freeman W, DO [address] [place], [place] [phone] documented as of this encounter Procedures Procedure [...] GHP QTc 385 ms MUSE GHP P [place] 77 degrees MUSE GHP R [place] 73 degrees MUSE GHP T [place] 81 degrees MUSE GHP 08/26/2023 3:00 PM [...] ECG ORDERABLE S MUSE [facility] [address] [place] [id number] documented in this encounter Visit Diagnoses Diagnosis Hypertension, unspecified type (HRC)- Primary Fibromyalgia Mylagia and myositis, unspecified Tobacco use disorder (HRC) Tobacco use disorder Brain aneurysm Cerebral aneurysm, nonruptured PAD (peripheral artery disease) (HRC) Unspecified disorders of arteries and arterioles Mixed hyperlipidemia (HRC) Mixed hyperlipidemia documented in this encounter Care Teams Ship Engineer Relationship Specialty Start Date End Date Dalton Canales MD [address] [place] [address] PCP - General Family Practice 06/23/23 documented as of this encounter
--- OUTSIDE RECORDS SUMMARY | 2023-09-27 10:28 | XMS_ITS | Encounter Summary ---
Author Organization [employer] Address [address] [place] [address] Care Team Providers Care Grinder Outside Diameter Name Role Phone Dalton Esqueda MD Primary Care Provider Reason for Visit * Reason Comments BLOOD PRESSURE, HIGH Encounter Details Date Type Department Care Team (Late st Contact Info) Description 09/02/2023 [facility]phone [facility] [address] [place] [address] Wilfredo Howell III, MD [address] [place] [address] BLOOD PRESSURE, HIGH Social History Tobacco Use [...] as of this encounter Nursing Notes * Wilfredo Howell III, MD - 09/02/2023 3:09 PM CDT It is expected that BP will take some time to achieve best results. Please have Nicolle increase Coreg to 6.25mg BID and continue spironolactone. Urinary frequency will likely improve soon. * Marianne Valencia RN - 09/02/2023 1:24 PM CDT Patient called in to update Dr. Howell regarding her recent medication changes and blood pressure readings. On last Tuesday she stopped taking doxazosin. On Tuesday and Tuesday she said she started feeling great. She said she never realized how heavy her chest felt until she got that relief on Tuesday. She said she feels like she can breathe again and has energy. She reports she no longer feels her heart pounding anymore. Her BP over those 2 days were systolic 154-160. On Tuesday she started spironolactone. She said this medication has caused her to have to urinate atleast every 45 minutes. It also makes her feel nauseous. Her BP since started spironolactone has been 196/87, 188/80, 189/55, 201/88, 196/87. She believes her most recent BP reading was 161/77 today,but her machine had shut down before she could log it. She reports she is having headaches, but that these are not worse than before she started spironolactone. Dr. Howell- Please advise how to proceed. Assessment/plan from office visit dated 08/26/23: Assessment and Plan: 1) HTN- previously [...] Zetia, intolerant to multiple statins per report. documented in this encounter Plan of Treatment Upcoming Encounters Date Type Department Care Team (Late st Contact Info) Description 10/04/2023 10:00 AM CDT Appointment [facility] [address] [place] [address] [place] [address] [place] [address] 12/22/2023 10:45 AM CDT Appointment [facility] [address] [place] [address] [place], [place] [address] [place] [address] documented as of this encounter Visit Diagnoses Not on filedocumented in this encounter Care Teams Grinder Outside Diameter Relationship Specialty Start Date End Date Dalton Esqueda MD [address] [place] [address] PCP - General Family Practice 06/23/23 documented as of this encounter
--- OUTSIDE RECORDS SUMMARY | 2023-09-27 10:28 | XMS_ITS | Encounter Summary ---
Author Organization [employer] Address [address] [place] [address] Care Team Providers Care Supervising Bailiff Name Role Phone Dalton Esqueda MD Primary Care Provider [phone] Reason for Visit * Reason Onset Date Comments Refill 09/22/2023 Encounter Details Date Type Department Care Team (Late st Contact Info) Description 09/22/2023 Refill [facility] 3800 Rheumatology [address] [facility] [place], [place] [phone] Juliann Echols, [address] [place], [place] [phone] Refill Social History Tobacco Use Types Packs/Day Years [...] as of this encounter Nursing Notes * Jennifer Howell RN - 09/22/2023 11:42 AM CDT Re-sent with updated quantity as requested. Renewed medication per medication refill standing order. Requested Prescriptions Signed Prescriptions Disp Refills mycophenolate (CELLCEPT) 500 MG tablet 360 Tablet 1 Sig: Take 2 Tablets (1,000 mg) by mouth two times a day. Authorizing Provider: JULIANN ECHOLS Ordering User: JENNIFER HOWELL * Yaima Lopes - 09/22/2023 11:38 AM CDT [facility] calling to clarify the dispense quantity for the cellcept prescription that was sent today because the instructions was updated today to take 2 tabs BID so a 90 day supply would be #360 tablets not #180 tablets. If appropriate please e-scribe rx to pharmacy. documented in this encounter Plan of Treatment Upcoming Encounters Date Type Department Care Team (Late st Contact Info) Description 10/04/2023 10:00 AM CDT Appointment [facility] [address] [place] [address] Eva Long MD [address] [place] [address] 12/22/2023 10:45 AM CDT Appointment [facility] [address] [place] [address] Desilet, Luke W, DO [address] [place], [place] [phone] documented as of this encounter Visit Diagnoses Not on filedocumented in this encounter Care Teams Supervising Bailiff Relationship Specialty Start Date End Date Dalton Esqueda MD [address] [place] [address] PCP - General Family Practice 06/23/23 documented as of this encounter
--- OUTSIDE RECORDS SUMMARY | 2023-09-27 10:28 | XMS_ITS | Encounter Summary ---
Author Organization [employer] Address [address] [place] [address] Care Team Providers Care Tip Mender Name Role Phone Dalton Esqueda MD Primary Care Provider [phone] Reason for Visit * Reason Comments LAB RESULTS Encounter Details Date Type Department Care Team (Late st Contact Info) Description 09/23/[address] [place] [facility] [place] [address] Desilet, Freeman W, DO [address] [place] [phone] LAB RESULTS Social History Tobacco Use Types Packs/Day Years [...] as of this encounter Nursing Notes * Yaima Lopes - 09/23/2023 3:45 PM CDT Spoke with pt, given this information and verbalized understanding. * Yaima Lopes - 09/23/2023 9:11 AM CDT LM for pt to return call. * Yaima Lopes - 09/23/2023 9:10 AM CDT ----- Message from Freeman Lopez DO sent at 09/22/2023 4:56 PM CDT ----- Patient prefers phone call for results. Please call the patient to let her know that her lupus labs showed a slightly lower C4 (complement)level but other tests were okay. I recommend increasing CellCept to 1000 mg twice a day as we discussed for control of lupus and skin lesions. Continue the current doses of hydroxychloroquine and prednisone. She will be due again for labs in about 1 month and we discussed getting these on 10/26/2023. Let me know if you have any questions or concerns. Thank you, Freeman Lopez DO 09/22/2023 4:55 PM documented in this encounter Plan of Treatment Upcoming Encounters Date Type Department Care Team (Late st Contact Info) Description 10/04/2023 10:00 AM CDT Appointment [facility] [address] [place] [address] [place] [address] [place] [address] 12/22/2023 10:45 AM CDT Appointment [facility] [address] [place] [address] Freeman Lopez DO [address] [place] [address] documented as of this encounter Visit Diagnoses Not on filedocumented in this encounter Care Teams Tip Mender Relationship Specialty Start Date End Date Dalton Esqueda MD [address] [place] [address] PCP - General Family Practice 06/23/23 documented as of this encounter
--- OUTSIDE RECORDS SUMMARY | 2023-09-27 10:29 | XMS_ITS | Clinical Summary ---
Author Organization [facility] Address [place], [place] [address] Care Team Providers Care Nursing Home Manager Name Role Phone Thereas Vázquez PhD, Unavailable [phone] Abhinav Miranda MD Unavailable [facility] Unavailable [phone] Rambo Cordova MD Unavailable [phone] Abhinav Miranda MD Unavailable [phone] Dalton Esqueda MD Primary Care Provider + [...] had adverse reactions previously Hydroxychloroquine Anxiety 08/23/2011 Idekmja-Yju-Tjb Reductase Inhibitors Myalgia 04/01/2015 Sulfasalazine Rash 05/17/2019 Tetracycline Vomiting,GI Upset 07/11/2006 Medications Medication Sig Dispensed Refills Start Date End Date Status aspirin enteric coated 81 mg tablet Take 1 tablet by mouth every 24 hours. 0 08/29/2011 Active meloxicam 15 mg tabletIndications:Sj ogren's syndrome, with unspecified organ involvement (HC) TAKE 1 TABLET(15 MG) BY MOUTH EVERY DAY 90 Tablet 07/13/2021 Active predniSONE (DELTASONE) 10 mg tablet Take 10 mg by mouth once daily with a meal. 11/12/2021 Active lisinopriL (PRINIVIL; ZESTRIL) 20 mg tabletIndications:Es sential hypertension with goal blood pressure less than 140/90 Take 2 Tablets (40 mg) by mouth once daily. 30 Tablet 11/15/2021 Active medication order composerIndications: Sjogren's syndrome, with unspecified organ involvement (HC),Lupus (HC),Connective tissue disease (HC) Seeking Health MVI one daily, Mg Oxide 400 mg three times a day, HCL 2 per meal, Super-C complex daily, Liquid IV one daily, [employer] digestive enzymes one with meals, Quercitin 500 mg twice a day 0 01/11/2022 Active mycophenolate (CellCept) 500 mg tablet one twice a day 0 04/12/2022 Active doxazosin (CARDURA) 2 mg tablet Take 2 mg by mouth once daily. 09/18/2022 Active ezetimibe (ZETIA) 10 mg tabletIndications:Hy perlipidemia, unspecified hyperlipidemia type Take 1 Tablet (10 mg) by mouth once daily. 90 Tablet 3 10/21/2022 Active medication order composerIndications: Sjogren's syndrome, with unspecified organ involvement (HC) naltrexone 5.5 mg caps, one cap qhs 100 Capsule 2 11/03/2022 Active alirocumab (Praluent Pen) 75 mg/mL pnijIndications:Hype rlipidemia, unspecified hyperlipidemia type Inject 75 mg subcutaneous every 2 weeks. 6 mL 3 11/04/2022 Active Active Problems Problem Noted Date Diagnosed Date [...] carotid artery 03/01/2017 Controlled substance agreement with [facility] [place] 12/21/19 17 Chronic SI joint pain 12/20/2016 [...] Encounters Date Type Department Care Team Description 09/08/2023 9:45 AM CDT Telemedicine [facility] [address] [place] [address] Theresa Vázquez, PhD, LP [facility] Hospital[facility] Plan 09/08/2023 Travel 09/06/[address] [place] [address] Eugene Araya MD Follow Up 08/15/2023 11:20 AM CDT Telemedicine [facility] [address] [place] [address] Grayson Nelson MD Follow Up; Telehealth 08/15/2023 9:00 AM CDT Telemedicine [facility] [address] [place] [address] Theresa Vázquez, PhD, LP Individual Therapy 08/15/2023 Travel 08/01/2023 11:20 AM CDT Telemedicine [facility] [address] [place] [address] Grayson Nelson MD Follow Up; Telehealth 08/01/2023 Travel 07/25/2023 12:20 PM CDT Orders Only [facility] [address] [place] [address] Lab, [facility] 07/25/2023 Travel 07/15/2023 9:00 AM CDT Telemedicine [facility] [address] [place] [address] Theresa Vázquez, PhD, LP Individual Therapy 07/15/2023 Travel 06/30/2023 9:00 AM INTERVENTION NURSE Telemedicine [facility] [address] [place] [address] Theresa Vázquez, PhD, Mental Health Intake 06/30/2023 Travel from Last 3 Months Immunizations Name [...] PHQ-2 Answer Date Recorded PHQ-2 TOTAL SCORE 2 09/08/2023 Social Connections Answer Date Recorded Frequency of [...] Care Team (Late st Contact Info) Description 10/20/2023 9:45 AM CDT Telemedicine [facility] [address] [place] [address] Theresa Vázquez, PhD, LP [address] [place] [address] 10/20/2023 1:20 PM CDT Telemedicine [facility] [address] [place] [address] O'Grayson Johnson MD [address] [place] [address] 10/26/2023 8:30 AM CDT Appointment [facility] [address] [facility] [address] [place] [address] 10/26/2023 9:15 AM CDT Appointment [facility] [address] [facility] [address] [place] [address] 10/26/2023 10:00 AM CDT Appointment [facility] [address] [place] [address] 10/26/2023 11:15 AM CDT Office Visit [facility] [address] [place] [address] Ousmane Joseph, NEVA [address] [place] [address] Health Maintenance Due Date Last Done Comments [...] history exists Depression screening for age 12+ 09/07/2024 09/08/2023, 08/15/2023, 08/15/2023, Additional history exists Colonoscopy through age 75 10/02/202510/02, 04/05/2012, 04/05/2012, Additional history exists Lipids for age 45-75 01/14/2027 01/14/2022, 06/15/2021, 02/22/2020, Additional history exists Tdap Completed 08/23/2011 DEXA/DXA scan for age 65+ Completed 2019, 03/20/2018, 04/07/2007 Hepatitis C screening for ag e 18-79 Completed 04/28/2021, 03/06/2015 Medical Devices Implanted Type Area Monomer Purification Operator Device Identifier Shelf Expiration Date Model / Serial / Lot Sut [place] [id number] Bio Swivelock - [id number] Implanted:Qty: 4 on 04/12/2007 at [facility] Right: Shoulder [employer] AR-[id number] L# / / [id number] Fiberchain 7mm10 Loops - [id number] Implanted:Qty: 4 on 04/12/2007 at [facility] Right: Shoulder [employer] AR-7270# / / Patch Vasc 0.8x8cm Biological Peripatch - [id number] Implanted:Qty: 1 on 08/26/2011 by Brain Nolasco MD at [facility] Right: Carotid Artery [employer] 08/25/2013 0.8P8# / / [id number] Graft Vasc 0.3x3in Hemashield Stra Fabric Knitted Dbl - [id number] Implanted:Qty: 1 on 03/01/2017 by Brain Quiroga MD at [facility] Left: Carotid Artery [employer] 06/22/2021 [id number]# / / [id number] Procedures Procedure Name Priority Date/Time Associated Diagnosis Comments SCAN CORRESP-DIAGNOSTICS 08/25/2023 3:10 PM CDT VITAMIN D 25 (DEFICIENCY) Routine 07/25/2023 10:37 AM CDT Vitamin D deficiency LIPID PANEL W REFLEX MEASURED LDL Routine 01/14/2022 7:58 AM CDT Pure hypercholesterolemia Dyslipidemia Statin intolerance ANTI HCV Today 04/28/2021 10:51 AM INTERVENTION NURSE Leukopenia, unspecified type COLONOSCOPY 10/02/2020 8:44 AM CDT XR DXA BONE DENSITY 2 SITES AXIAL Routine 02/22/2020 1:20 PM CDT Chronic midline low back pain with right-sided sciatica Fibromyalgia Mixed connective tissue disease (HC) Sjogren's syndrome with myopathy (HC) XR MAMMO BILAT SCREENING Routine 03/07/2019 3:23 PM INTERVENTION NURSE Visit for screening mammogram from Last 3 Months or Most Recently Relevant to Health Maintenance Results * SCAN CORRESP-DIAGNOSTICS (08/25/2023 3:10 PM CDT) Narrative 08/25/2023 3:10 PM CDT Ordered by an unspecified provider. Other Clinical Staff OTHER * VITAMIN D 25 (DEFICIENCY) (07/25/2023 10:37 AM CDT) VITAMIN D TOTAL 73.6 20.0 - 80.0 ng/mL 07/25/2023 9:31 PM CDT [facility] Blood BLOOD SPECIMEN / Unknown Butterfly / Unknown 07/25/2023 10:37 AM CDT 07/25/2023 10:38 AM CDT Narrative [facility] - 07/25/2023 9:31 PM CDT ? Vitamin D Status Deficiency: ? <20 ng/mL Insufficiency: ?20-29 ng/mL Sufficiency: ?30-80 ng/mL Possible Toxicity: ??>80 ng/mL Based on [place] [employer] recommendations Biotin supplements may cause clinically significant interference for this test assay. ??If interference is suspected, it is strongly recommended that biotin is discontinued for at least one week prior to retesting. Grayson Nelson MD SEND OUTS [facility] [address] [place] [address], * LIPID PANEL W REFLEX MEASURED LDL (01/14/2022 7:58 AM CDT) CHOLESTEROL,TOTAL 159 100 - 199 mg/dL 01/14/2022 9:36 AM CDT [facility] TRIGLYCERIDES 130 <150 mg/dL 01/14/2022 9:36 AM CDT [facility] HDL CHOLESTEROL 75 >40 mg/dL 9:36 AM CDT [facility] NON-HDL CHOLESTEROL 84 <145 mg/dl 01/14/2022 9:36 AM T [facility] CHOL/HDL RATIO 2.12 <4.50 01/14/2022 9:36 AM CDT [facility] LDL CHOLESTEROL 58 <=130 mg/dL 01/14/2022 9:36 AM CDT [facility] VLDL CHOLESTEROL 26 <=30 mg/dL 01/14/2022 9:36 AM CDT [facility] PROVIDER ORDERED STATUS FASTING 01/14/2022 9:36 AM CDT [facility] Blood BLOOD SPECIMEN / Unknown Venipuncture / Unknown 01/14/2022 7:58 AM CDT 01/14/2022 8:18 AM CDT Yu Bradley NP CHEMISTRY [facility] [address] [place] [address] * ANTI HCV (04/28/2021 10:51 AM INTERVENTION NURSE) HEPATITIS C ANTIBODY Non-React epi Non-React epi 04/28/2021 4:25 PM INTERVENTION NURSE [facility] Comment:Antibodies to HCV no t detected; does not exclude the possibility of exposure to HCV. Blood BLOOD SPECIMEN / Unknown Venipuncture / Unknown 04/28/2021 10:51 AM INTERVENTION NURSE 04/28/2021 10:51 AM INTERVENTION NURSE Giselle Sheffield MD SEND OUTS [facility] [address] [place] [address], [place] * COLONOSCOPY (10/02/2020 8:44 AM CDT) 10/02/2020 8:44 AM CDT Narrative Transcriptions Daysi George, - 10/06/2020 9:14 PM CDT Patient Name: Nicolle Covington Procedure Date: 10/02/2020 Gender: Female Date of : 1955 Admit Type: Ambulatory Procedure: Colonoscopy Proceduralist: Daysi George MD [facility] Indications/Pre-Op Diagnosis: High risk colon cancer surveillance:Personal [...] Bone Den sitometry Narrative 02/25/2020 10:39 AM INTERVENTION NURSE Please see scanned document for results of this study. Mauricio Muñoz MD DEXA * XR MAMMO BILAT SCREENING (03/07/2019 3:23 PM INTERVENTION NURSE) Anatomical Region Laterality Modality BREASTS, Breast Left, Breast Right Bilateral Mammography Impressions 03/08/2019 6:55 AM INTERVENTION NURSE ??There is no radiographic evidence for malignancy. ??Recommend annual mammograms. A lay language report of this examination will be provided to the patient. MAMMOGRAM ASSESSMENT: ??ACR 1 Negative Narrative 03/08/2019 6:55 AM INTERVENTION NURSE XR MAMMO BILAT SCREENING [[id number]] CLINICAL HISTORY: ??This is an asymptomatic 63 y.o. patient. INDICATION FOR EXAM: Mammogram Screening. TECHNIQUE: CC & MLO views were obtained. ??This digital study was evaluated with the assistance of Computer-Aided Detection. COMPARISON FILM: Yes 02/24/18 [facility] FINDINGS: ??Mammographically, the breast tissue is almost entirely fat. ?? There are no dominant masses, suspicious micro calcifications or areas of architectural distortion. Mauricio Muñoz MD MAMMO from Last 3 Months or Most Recently Relevant to Health Maintenance Advance Directives Documents on File Type Date Recorded Patient Cardiology Tech Expl anation Healthcare Directive 03/24/2023 023 * [...] 5:42 AM 03/01/2017 11:49 AM Care Teams Nursing Home Manager Relationship Specialty Start Date End Date Dalton Esqueda MD [address] [place] [address] PCP - General Family Practice 10/15/20 Theresa Vázquez, PhD, LP Psychologist Psychology 06/23/11 Abhinav Miranda MD Dermatology Dermatology 08/07/15 [facility] 09/14/16 Rambo Cordova MD [address] [facility] [address] [place] [address] Rheumatology Rheumatology 04/07/17 Abhinav Miranda MD Dermatology 07/11/17
--- NOTE | 2023-10-11 12:43 | W.PM.SLEEP ---
Sleep Study Details Details Interpreting Provider: Mary Date of Sleep Study: 09/27/23 Sleep Study Details: STUDY TYPE:? Home unattended ? BMI:? Not recorded ORDERING PROVIDER:Isidro Esqueda INDICATION:? Concern about sleep apnea ? SLEEP SUMMARY:? 496 minutes monitored RESPIRATORY SUMMARY:? AHI 3.4 per CMS guidelines, 7.7 per rule 1A guidelines Low oxygen 84 18.4% of study oxygen less than 90% Snoring 98% PERIODIC LIMB MOVEMENTS OF SLEEP:? Not recorded CARDIAC:? Range 41-81, mean 53 IMPRESSION:? This study does not demonstrate significant obstructive sleep apnea per CMS guidelines. However per rule 1A guidelines the AHI was 7.7 which would qualify as mild sleep apnea. She also has significant hypo oxygenation during 91 minutes of the study. RECOMMENDATION: I would recommend treatment with AutoSet CPAP and followed by overnight oximetry once effective therapy is established.
== END 2023-09-27 10:26 | disposition home or self-care (01) ==
PROVIDERS: PCP Family Medicine; Visit Provider Otolaryngology
DX: G47.30 Sleep apnea, unspecified (principal)
CPT/HCPCS: 95806

== ENCOUNTER 2023-10-18 19:40 | Outpatient (CLI) | payer MEDICARE, BC, SELFPAY ==
--- OUTSIDE RECORDS SUMMARY | 2023-10-18 19:42 | XMS_ITS | Encounter Summary ---
Author Organization [employer] Address [address] [place] [address] Care Team Providers Care Hogshead Mat Inspector Name Role Phone Dalton Esqueda MD Primary Care Provider [phone] Reason for Visit * Reason Comments UPDATE Encounter Details Date Type Department Care Team (Late st Contact Info) Description 10/03/2023 Telephone [facility] Cardiology [address] [place], [place] [phone] Wilfredo Howell III, MD [address] [place], [place] [phone] UPDATE Social History Tobacco Use Types Packs/Day Years [...] of this encounter Nursing Notes * Yanci Adkins RN - 10/04/2023 2:33 PM CDT Spoke to Nicolle; discussed message per Dr. Howell. Scheduled for follow up 10/12. She states that sheis not willing to continue on the higher carvedilol dose, willing to continue 3.125 mg BID. * Yanci Adkins RN - 10/04/2023 10:54 AM CDT Left message for patient to return call to clinic. * Yanci Adkins RN - 10/04/2023 9:56 AM CDT Images from the original note were not included. Wilfredo Howell III, MD You1 hour ago (7:56 AM) BP remains too high. Currently on 3 medications for BP. 2 are typical max dose. Side effects with Coreg are possible, but are less likely than many alternatives she could use. Best choice now is to continue Coreg at higher dose for another week and check BP at same time on days when checked. Please look for a clinic F/U slot as soon as reasonably possible to discuss alternatives and check a clinic BP. * Yanci Adkins RN - 10/03/2023 3:21 PM CDT Voicemail received from Nicolle; she states she is calling with a blood pressure update for Dr. Howell. Called and spoke to Nicolle; she states that she does not like taking the higher dose of carvedilol (6.25 mg). She reports that she continues to have significant fatigue, brain fog and feels like she is off balance and her equilibrium is off. Denies lightheadedness. States she did not have these side effects from the 3.125 mg dose. States blood pressures are all over the place. Lowest BP she has seen since we last spoke on 09/20was 145/61. States that they are averaging 160s-170s systolic. HR 40s-60s. Asked when Nicolle is taking her blood pressure; she states that she is taking it at various times throughout the day and before her AM meds. Recommended that she check it on a more consistent schedule and wait at least 30-60 minutes after taking her AM meds. Currently taking carvedilol 6.25 mg BID, spironolactone 25 mg once daily, and lisinopril [address] Howell, Nicolle does not feel well on the higher dose of carvedilol (6.25 mg BID). [place] okay on the lower dose. Any recommendations for her? Last office visit with Dr. Howell 08/26/23: [...] Care Team (Late st Contact Info) Description 12/22/2023 10:45 AM CDT Appointment [facility] [address] [place] [address] Freeman Lopez W, DO [address] [place] [address] documented as of this encounter Visit Diagnoses Not on filedocumented in this encounter Care Teams Hogshead Mat Inspector Relationship Specialty Start Date End Date Dalton Esqueda MD [address] [place] [address] PCP - General Family Practice 06/23/23 documented as of this encounter
--- OUTSIDE RECORDS SUMMARY | 2023-10-18 19:42 | XMS_ITS | Encounter Summary ---
Author Organization [employer] Address [address] [place] [address] Care Team Providers Care Respite Care Provider Name Role Phone Dalton Esqueda MD Primary Care Provider [phone] Reason for Visit * Reason Onset Date Comments Refill 09/22/2023 Encounter Details Date Type Department Care Team (Late st Contact Info) Description 09/22/2023 Refill [facility] 3800 Rheumatology 3800 [facility]. [place], [place] [phone] Juliann Echols, DO [address] [place], [place] [phone] Refill Social History Tobacco Use Types Packs/Day [...] Info) Description 12/22/2023 10:45 AM CDT Appointment [facility] [address] [place], [place] [address] Desilet, Juliann W, DO [address] [place], [place] [phone] documented as of this encounter Visit Diagnoses Not on filedocumented in this encounter Care Teams Respite Care Provider Relationship Specialty Start Date End Date Dalton Esqueda MD [address] [place] [address] PCP - General Family Practice 06/23/23 documented as of this encounter
--- OUTSIDE RECORDS SUMMARY | 2023-10-18 19:42 | XMS_ITS | Encounter Summary ---
Author Organization [employer] Address [address] [place] [address] Care Team Providers Care Digital Strategist Senior Manager Name Role Phone Dalton Esqueda MD Primary Care Provider [phone] Reason for Visit * Reason Comments Lupus Rash is a lot better , has been going to the pool for water walking and has dried it up. Encounter Details Date Type Department Care Team (Late st Contact Info) Description 10/04/2023 10:00 AM CDT Office Visit [facility] [address] [place], [place] [phone] Eva Long MD [address] [place] [address] Lupus (HRC) (Primary Dx); Hair loss Social History Tobacco Use Types Packs/Day Years [...] this encounter Patient Instructions * Patient Instructions* Elian Rosario LPN - 10/04/2023 10:00 AM CDT Images from the original note were not included. Treatment for Hair Loss and Thinning - Style and use your favorite products as your normally would. - 5% minoxidil (brand name Rogaine) is a treatment for hair thinning. - Studios have not evaluated the use of this medication in children, but it is commonly used as a treatment for hair loss in children and is thought to be safe. - Foam is easier to apply than the solution - For women, using it once daily is fine. Men are recommended to use it twice daily. - The medication should be applied to the scalp itself, not the hair. - You need to continue using this medication to maintain hair growth. - A common side effect is unwanted hair growth along the hairline/forehead. Apply the medication carefully. Some patients use a sweatband along the hairline to prevent dripping on the forehead and face. - It takes months of regular use before we can scooper your response to this medication. - You also need to change pillowcase weekly to prevent facial hair growth. - This medication should not be used in as it is associated with defects. documented in this encounter Progress Notes * Eva Long MD - 10/04/2023 10:00 AM CDT DERMATOLOGY OFFICE VISIT Last Visit: 07/05/23 Dermatologic history: Systemic lupus erythematosus (SLE) - characterized by inflammatory arthritis, severe diffuse rash, subacute cutaneous lupus, high titer positive JUJU, positive SSA, positive SSB, hypocomplementemia, and leukopenia Chief Complaint Patient presents with Lupus Rash is a lot better, has been going to the pool for water walking and has dried it up. History of Present Illness: Nicolle Covington is a 68 y.o. female who presents for follow up rash. I last saw her in June, atwhich time we performed a punch biopsy of her right upper posterior arm which showed interface dermatitis with dense perivascular inflammatory infiltrate, most consistent with a manifestation of her systemic lupus. She was worried that this had represented possible fungal infection as she does havea history of tinea corporis. Today: Reports that the precision aircraft structure assembler increased her CellCept to 1 g twice a day. Her skin has actually done quite well since this increase. She also attributes her improvement to walking in the pool regularly. Is using triamcinolone to red areas on her bilateral upper arms at nighttime. Does note significant bruising on her bilateral arms, on prednisone 7.5 mg daily. Also wonders about hair loss. Reports that this has been worsening since going off anifrolumab. Wondering about treatment options. Did recently buy topical minoxidil. Past Medical History and Family History: Reviewed and updated in [facility] Social History: She lives in [place] Medications: The patient has a current medication list which includes the following prescription(s): acetaminophen, alendronate, aspirin, betaine hcl, carvedilol, cholecalciferol, clobetasol, drug not in computer, drug not in computer, ezetimibe, ezetimibe-rosuvastatin, hydroxychloroquine, levothyroxine, lisinop ril, lorazepam, magnesium bisglycinate, magnesium oxide, medical cannabis, meloxicam, mercaptopurine, multiple vitamin, mycophenolate, naltrex, omeprazole, ondansetron, pilocarpine, praluent, prednisone, probiotic, sorbitol-saccharin, spironolactone, triamcinolone acetonide, triamcinolone acetonide, and turmeric. Allergies: The patient is allergic to fentanyl, hydralazine, infliximab, amoxicillin-pot clavulanate, duloxetine, erythromycin, gabapentin, hydrochlorothiazide, hydroxychloroquine, sulfasalazine, tetracycline, and venlafaxine. Review of Systems: No other skin, hair, or nail concerns today. Physical Examination: General: Well-appearing female, in no distress, alert and oriented. Skin: Examination of the patient's face, bilateral arms and hands performed today. was performed today. Pertinent findings as below. Exam otherwise was normal. Combined exam, Assessment and Plan: Systemic lupus erythematosus with annular SCLE/interface derm on biopsy. Improved with increase dose of CellCept, triamcinolone, also on hydroxychloroquine, prednisone. - on examination today, she has diffuse ecchymotic patches on the bilateral forearms, fewer on the upper arms. Clinical impression discussed. As she is much improved with the triamcinolone and increased dose ofCellCept, do not feel that any additional systemic therapy needed. Clear on examination of her arms, per her report clear elsewhere as well. Discussed potentially trialing a steroid sparing topical agent to not contribute to skin thinning. He is interested. Will send a prescription for Protopic fortwice daily use to any residual spots on the arms. She can stop triamcinolone. Will call if there is any concern with cost. Non scarring hair loss - discussed briefly at the end of her visit Discussed that non scarring hair loss can be seen in the setting of lupus. Gave instructions on howto use the topical minoxidil as she is already purchased. Recommend 5% foam on a nightly basis. If she would like to be more aggressive, happy to see her back in 6-9 months for exam and re-evaluation. Follow up: Return to clinic as needed per patient preference. Eva Long MD [facility] documented in this encounter Plan of Treatment Upcoming Encounters Date Type Department Care Team (Late st Contact Info) Description 12/22/2023 10:45 AM CDT Appointment [facility] [address] [place], [place] [address] Desilet, Luartie W, DO [address] [place], [place] [phone] documented as of this encounter Visit Diagnoses Diagnosis Lupus (HRC)- Primary Systemic lupus erythematosus Hair loss Alopecia, unspecified documented in this encounter Care Teams Digital Strategist Senior Manager Relationship Specialty Start Date End Date Dalton Esqueda MD [address] [place] [address] PCP - General Family Practice 06/23/23 documented as of this encounter
--- OUTSIDE RECORDS SUMMARY | 2023-10-18 19:42 | XMS_ITS | Encounter Summary ---
Author Organization [employer] Address [address] [address] Care Team Providers Care Security Professionals Name Role Phone Dalton Esqueda MD Primary Care Provider [phone] Reason for Visit * Reason Comments Follow-up Encounter Details Date Type Department Care Team (Late st Contact Info) Description 09/22/2023 10:45 AM CDT Office Visit [facility] [address] [place] [address] Desilet, Luke W, DO [address] [place] [address] Systemic lupus erythematosus, unspecified SLE type, unspecified [...] dose today. Continue to work with your etl application developer on adjusting the blood pressure medicines. It [...] on 10/26/2023 when you were in the [facility] for other visits. Follow up with me [...] with several outside rheumatologists (Dr. Louis at [facility] and Dr. [place] at [facility]) - several prior medication intolerances as noted below - at presentation to [facility] rheumatology February 2023, appeared to have clinically [...] twice a day Prednisone 7.5 mg daily (joint terminal attack controller) Hydroxychloroquine 200 mg daily (February 2023-present) Oral alendronate 70 mg weekly (February 2023-) [...] Reviewed recent relevant results: Surgical Path, Dermatology: [id number] Order: [id number] Collected 07/05/2023 13:17 Status: Final result Visible [...] the technical staining was performed at [facility], [address] [place] [address]. Gross Description A: Received in formalin, labeled [...] 12:55 PM This documentation was completed using M*Modal Fluency Direct Dictation Software which may contain typographical and word substitution errors. Please contact my office if clarification is needed. documented in this encounter Plan of Treatment Upcoming Encounters Date Type Department Care Team (Late st Contact Info) Description 12/22/2023 10:45 AM CDT Appointment [facility] [address] [place] [address] Desilet, Freeman Fong DO [address] [place] [address] Scheduled Orders Name Type Priority Associated Diagnoses Orde r Schedule Comp Metabolic Panel Lab Routine High risk medication use Expected: 10/26/2023, Expires: 01/24/2024 CBC -W/Diff Lab Routine High risk medication use Expected: 10/26/2023, Expires: 01/24/2024 documented as of this encounter Results * TP/Crea Ratio, Urine (09/22/2023 11:21 AM CDT) [facility] TP/Creat Ratio, Urine Random 0.17 0.00 - [...] Luke W Desilet DO LAB_1 [facility] [address] [place] [address], [facility] * (ABNORMAL) Urinalysis Routine, Micro/Culture if Pos: Clean Catch (09/22/2023 11:21 AM CDT) Urine Culture Comment Urinalysis results do not meet criteria for urine culture reflex. 09/22/2023 11:28 AM [facility] Urine Color Straw 09/22/2023 11:28 AM [facility] Urine Clarity Clear Clear 09/22/2023 11:28 AM [facility] Specific [place], Urine <=1.005(A) 1.005 - 1.030 09/22/2023 11:28 AM [facility] PH Urine 6.0 5.0 - 8.0 09/22/2023 11:28 AM [facility] Protein, Urine Qual (mg/dL) Negative Neg/Trace 09/22/2023 11:28 AM [facility] Glucose Urine Qual (mg/dL) Negative Negative 09/22/2023 11:28 AM [facility] Ketones, Urine (mg/dL) Negative Negative 09/22/2023 11:28 AM [facility] Urobilinogen, Urine (EU/dL) 0.2 <2.0 09/22/2023 11:28 AM [facility] Bilirubin Urine Negative Negative 09/22/2023 11:28 AM [facility] Blood, Urine Negative Neg/Trace 09/22/2023 11:28 AM [facility] Nitrite Urine Negative Negative 09/22/2023 11:28 AM [facility] Leukocyte Est. Negative Negative 09/22/2023 11:28 AM [facility] Urine Source Clean Catch 09/22/2023 11:28 AM [facility] Urine URINE SPECIMEN COLLECTION, CLEAN CATCH / Unknown Non-blood Collection / Unknown 09/22/2023 11:21 AM CDT 09/22/2023 11:21 AM CDT Luke W Desilet DO LAB_1 [facility] [address] [place] [address], [facility] * (ABNORMAL) C4 Complement (09/22/2023 11:16 AM CDT) C4 Complement 13.0(L) 15.0 - 57.0 mg/dL 09/22/2023 4:37 PM CDT [facility] Blood Venipuncture / Unknown 09/22/2023 11:16 AM CDT 09/22/2023 11:16 AM CDT Lu W Desilet DO LAB_1 Performing Organization Address [facility] de Phone Number [facility] [address] * C3 Complement (09/22/2023 11:16 AM CDT) C3 Complement 85 83 - 193 mg/dL 09/22/2023 4:37 PM CDT [facility] Blood Venipuncture / Unknown 09/22/2023 11:16 AM CDT 09/22/2023 11:16 AM CDT [facility] Desilet DO LAB_1 Performing Organization Address [facility] Phone Number [facility] [address] [place] [address] * (ABNORMAL) Comp Metabolic Panel (09/22/2023 11:16 AM CDT) Pathologist [facility] Sodium 140 136 - 145 mmol/L 09/22/2023 1:44 PM [facility] Potassium 4.9 3.5 - 5.1 mmol/L 09/22/2023 1:44 PM [facility] Chloride 108 98 - 109 mmol/L 09/22/2023 1:44 PM [facility] CO2 20 20 - 29 mmol/L 09/22/2023 1:44 PM [facility] Anion Gap 12 6 - 16 mmol/L 09/22/2023 1:44 PM [facility] Calcium 10.2 8.4 - 10.4 mg/dL 09/22/2023 1:44 PM [facility] BUN 37(H) 7 - 26 mg/dL 09/22/2023 1:44 PM [facility] Creatinine 0.94 0.55 - 1.02 mg/dL 09/22/2023 1:44 PM [facility] Alkaline Phosphatase 34(L) 40 - 150 U/L 09/22/2023 1:44 PM [facility] AST (SGOT) 21 10 - 40 U/L 09/22/2023 1:44 PM [facility] ALT (SGPT) 18 <=55 U/L 09/22/2023 1:44 PM [facility] Bilirubin, Total 0.3 0.2 - 1.2 mg/dL 09/22/2023 1:44 PM [facility] Protein, Total 7.0 6.4 - 8.3 g/dL 09/22/2023 1:44 PM [facility] Albumin 4.0 3.5 - 5.0 g/dL 09/22/2023 1:44 PM [facility] Glucose 119(H) 70 - 100 mg/dL 09/22/2023 1:44 PM [facility] Comment:The given reference range is for the fasting state. Non-fasting reference range for glucose is 70 - 180 mg/dL. GFR, Estimated >60 >60 mL/min/1.7 3m2 09/22/2023 1:44 PM [facility] Hours Fasting 0.1 8 - 12 Hours 09/22/2023 1:44 PM [facility] Comment:Lab unable to obtain patient's fasting status at time of specimen collection. Blood Venipuncture / Unknown 09/22/2023 11:16 AM CDT 09/22/2023 11:16 AM T Freeman Fong Desilet DO LAB_1 [facility] [address] [place] [address] documented in this encounter Visit Diagnoses Diagnosis Systemic lupus erythematosus, unspecified SLE type, unspecified organ involvement status (HRC)- Primary High risk medication use Encounter for long-term (current) use of other medications Osteoporosis, unspecified osteoporosis type, unspecified pathological fracture presence (HRC) Essential hypertension (HRC) Unspecified essential hypertension documented in this encounter Care Teams Security Professionals Relationship Specialty Start Date End Date Dalton Esqueda MD [address] [place] [address] PCP - General Family Practice 06/23/23 documented as of this encounter
--- OUTSIDE RECORDS SUMMARY | 2023-10-18 19:42 | XMS_ITS | Encounter Summary ---
Author Organization [employer] Address [address] [place] [address] Care Team Providers Care Ivory Carver Name Role Phone Dalton Esqueda MD Primary Care Provider [phone] Reason for Visit * Reason Comments LAB RESULTS Encounter Details Date Type Department Care Team (Late st Contact Info) Description 09/23/2023 Telephone [facility] [address] Rheumatology [address] [facility] [address] Desilet, Luke W, DO [address] [place] [address] LAB RESULTS Social History Tobacco Use Types [...] Info) Description 12/22/2023 10:45 AM CDT Appointment [facility] [address] [place], [place] [address] Freeman Lopez DO [address] [place] [address] documented as of this encounter Visit Diagnoses Not on filedocumented in this encounter Care Teams Ivory Carver Relationship Specialty Start Date End Date Dalton Esqueda MD [address] [place] [address] PCP - General Family Practice 06/23/23 documented as of this encounter
--- OUTSIDE RECORDS SUMMARY | 2023-10-18 19:42 | XMS_ITS | Encounter Summary ---
Author Organization [employer] Address [address] [place] [address] Care Team Providers Care Analytic Programmer Name Role Phone Dalton Esqueda MD Primary Care Provider [phone] Reason for Visit * Reason Comments BLOOD PRESSURE, HIGH Encounter Details Date Type Department Care Team (Late st Contact Info) Description 09/09/2023 Telephone [facility] [address] [place], [place] [phone] Wilfredo Howell III, MD [address] [place] [address] BLOOD PRESSURE, HIGH Social History [...] Nursing Notes * Yanci Adkins RN - 09/22/2023 9:05 AM CDT Called [...] Info) Description 12/22/2023 10:45 AM CDT Appointment [facility] [address] [place] [address] Desilet, Freeman W, DO [address] [place], [place] [phone] documented as of this encounter Visit Diagnoses Not on filedocumented in this encounter Care Teams Analytic Programmer Relationship Specialty Start Date End Date Dalton Esqueda MD [address] [place] [address] PCP - General Family Practice 06/23/23 documented as of this encounter
--- OUTSIDE RECORDS SUMMARY | 2023-10-18 19:42 | XMS_ITS | Encounter Summary ---
Author Organization [employer] Address [address] [place] [address] Care Team Providers Care Dietetic Technician Registered Name Role Phone Dalton Esqueda MD Primary Care Provider [phone] Reason for Visit * Reason Comments Medication Follow Up Encounter Details Date Type Department Care Team (Late st Contact Info) Description 10/10/2023 Telephone [facility] [place] [facility] [address] [place] [address] Eva Long MD [address] [place] [address] Medication Follow Up Social History Tobacco Use Types Packs/Day Years [...] as of this encounter Nursing Notes * Corinna Galeano RN - 10/10/2023 1:34 PM CDT Called patient and informed. She would like to use goodrx and go through [facility] in [facility]. Transferred prescription per protocol * Eva Long MD - 10/10/2023 12:50 PM CDT Please let her know that the tacrolimus was not covered. With GoodRx, [facility] or [facility] you can get a tube for 45 dollars, otherwise she can go back to using the triamcinolone 0.1% ointment but would try to restrict use to Tuesday, Tuesday and Tuesday only. Thanks! * Elian Rosario LPN - 10/10/2023 12:13 PM CDT Tacrolimus 0.14% oint Insurance denied, alternative recommendations listed below: Betamethasone, Fluocinonide, Hydrocortisone or Desonide preferred documented in this encounter Plan of Treatment Upcoming Encounters Date Type Department Care Team (Late st Contact Info) Description 12/22/2023 10:45 AM CDT Appointment [facility] [address] [place] [address] Desilet, Freeman W, DO [address] [place] [address] documented as of this encounter Visit Diagnoses Diagnosis Lupus (HRC) Systemic lupus erythematosus documented in this encounter Care Teams Dietetic Technician Registered Relationship Specialty Start Date End Date Dalton Esqueda MD [address] [place] [address] PCP - General Family Practice 06/23/23 documented as of this encounter
--- OUTSIDE RECORDS SUMMARY | 2023-10-18 19:42 | XMS_ITS | Encounter Summary ---
Author Organization [employer] Address [address] [place] [address] Care Team Providers Care Commercial Door Installer Name Role Phone Dalton Esqueda MD Primary Care Provider [phone] Reason for Visit * Reason Comments Medication Questions Encounter Details Date Type Department Care Team (Late st Contact Info) Description 10/13/2023 [facility]phone [facility] [address] [place], [place] [phone] Wilfredo Howell III, MD [address] [place], [place] [phone] Medication Questions Social History Tobacco Use Types Packs/Day Years [...] as of this encounter Nursing Notes * Leandra Warner RN - 10/13/2023 4:33 PM CDT Call received from [facility] pharmacy through triage requesting clarification for the Losartan Rx. Prescription was clarified and filled. documented in this encounter Plan of Treatment Upcoming Encounters Date Type Department Care Team (Late st Contact Info) Description 12/22/2023 10:45 AM CDT Appointment [address] [phone] Freeman Lopez W, DO [address] [place] [address] documented as of this encounter Visit Diagnoses Not on filedocumented in this encounter Care Teams Commercial Door Installer Relationship Specialty Start Date End Date Dalton Esqueda MD [address] [place] [address] PCP - General Family Practice 06/23/23 documented as of this encounter
--- OUTSIDE RECORDS SUMMARY | 2023-10-18 19:42 | XMS_ITS | Encounter Summary ---
Author Organization [employer] Address [address] [place] [address] Care Team Providers Care Dermatology Sales Representative Name Role Phone Dalton Esqueda MD Primary Care Provider [phone] Reason for Visit * Reason Comments BLOOD PRESSURE, HIGH Encounter Details Date Type Department Care Team (Late st Contact Info) Description 09/02/2023 Telephone [facility] [address] [place] [address] Wilfredo Howell III, MD [address] [place] [address] BLOOD PRESSURE, HIGH Social History [...] Info) Description 12/22/2023 10:45 AM CDT Appointment [facility] [address] [place] [address] Desilet, Luke W, DO [address] [place], [place] [phone] documented as of this encounter Visit Diagnoses Not on filedocumented in this encounter Care Teams Dermatology Sales Representative Relationship Specialty Start Date End Date Dalton Esqueda MD [address] [place] [address] PCP - General Family Practice 06/23/23 documented as of this encounter
--- OUTSIDE RECORDS SUMMARY | 2023-10-18 19:42 | XMS_ITS | Encounter Summary ---
Author Organization [facility] Address [address] [place] [address] Care Team Providers Care Order Entry Technician Name Role Phone Dalton Esqueda MD Primary Care Provider [phone] Encounter Details Date Type Department Care Team (Late st Contact Info) Description 09/22/2023 1:30 PM CDT Lab Visit [facility] [address] [place] [address] Systemic lupus erythematosus, unspecified SLE type, unspecified [...] Info) Description 12/22/2023 10:45 AM CDT Appointment [facility] [address] [place] [address] Desilet, Luke W, DO [address] [place], [place] [id number] documented as of this encounter Procedures Procedure [...] 0.00 - 0.20 09/22/2023 4:26 PM CDT [facility] Total Protein, Urine, Random 3 0 - 14 mg/dL 09/22/2023 4:26 PM CDT [facility] Creatinine, Urine, Random 18 >20 mg/dL mg/dL 09/22/2023 4:26 PM CDT [facility] Comment:The overall interpre tation for this test is normal (the ratio is within the reference interval). Individual test components may fall outside the reference interval but still give a normal overall test result. Urine URINE SPECIMEN COLLECTION, CLEAN CATCH / Unknown Non-blood Collection / Unknown 09/22/2023 11:21 AM CDT 09/22/2023 11:21 AM CDT Narrative [facility] - 09/22/2023 4:26 PM CDT Low urine creatinine values coupled with low urine protein values can artifactually increase the urine protein/creatinine results. Correlate results of ratio with creatinine results. Freeman Fong Desilet DO LAB_1 [facility] [address] [place] [address], [facility] * (ABNORMAL) Urinalysis Routine, Micro/Culture if Pos: Clean Catch (09/22/2023 11:21 AM CDT) Urine Culture Comment Urinalysis results do not meet criteria for urine culture reflex. 09/22/2023 11:28 AM [facility] Urine Color Straw 09/22/2023 11:28 AM [facility] Urine Clarity Clear Clear 09/22/2023 11:28 AM [facility] Specific [place], Urine <=1.005(A) 1.005 - 1.030 09/22/2023 11:28 AM [facility] PH Urine 6.0 5.0 - 8.0 09/22/2023 11:28 AM [facility] Protein, Urine Qual (mg/dL) Negative Neg/Trace 09/22/2023 11:28 AM [facility] Glucose Urine Qual (mg/dL) Negative Negative 09/22/2023 11:28 AM [facility] Ketones, Urine (mg/dL) Negative Negative 09/22/2023 11:28 AM [facility] Urobilinogen, Urine (EU/dL) 0.2 <2.0 09/22/2023 11:28 AM [facility] Bilirubin Urine Negative Negative 09/22/2023 11:28 AM [facility] Blood, Urine Negative Neg/Trace 09/22/2023 11:28 AM [facility] Nitrite Urine Negative Negative 09/22/2023 11:28 AM [facility] Leukocyte Est. Negative Negative 09/22/2023 11:28 AM [facility] Urine Source Clean Catch 09/22/2023 11:28 AM [facility] Urine URINE SPECIMEN COLLECTION, CLEAN CATCH / Unknown Non-blood Collection / Unknown 09/22/2023 11:21 AM CDT 09/22/2023 11:21 AM CDT Luke W Desilet DO LAB_1 [facility] [address] [place] [address] * Complete Blood Count-W/Diff (09/22/2023 11:16 AM CDT) WBC 8.6 3.5 - 10.5 x10(9)/L 09/22/2023 11:20 AM [facility] RBC 3.96 3.90 - 5.03 x10(12)/L 09/22/2023 11:20 AM [facility] Hemoglobin 12.5 12.0 - 15.5 g/dL 09/22/2023 11:20 AM [facility] HCT 37.4 34.9 - 44.5 % 09/22/2023 11:20 AM [facility] MCV 94.4 80.0 - 100.0 fL 09/22/2023 11:20 AM [facility] MCH 31.6 27.6 - 33.3 pg 09/22/2023 11:20 AM [facility] MCHC 33.4 31.5 - 35.2 g/dL 09/22/2023 11:20 AM [facility] RDW 14.5 11.9 - 15.5 % 09/22/2023 11:20 AM [facility] Platelets 235 150 - 450 x10(9)/L 09/22/2023 11:20 AM [facility] Automated NRBC 0 <=0 /100 WBC 09/22/2023 11:20 AM [facility] Neutrophil Absolute 7.0 1.7 - 7.0 10(9)/L 09/22/2023 11:20 AM [facility] Lymphocyte Absolute 1.1 1.0 - 4.8 10(9)/L 09/22/2023 11:20 AM [facility] Monocyte Absolute 0.4 0.2 - 0.9 10(9)/L 09/22/2023 11:20 AM [facility] Eosinophil Absolute 0.0 0.0 - 0.5 10(9)/L 09/22/2023 11:20 AM CDT [facility] Basophil Absolute 0.0 0.0 - 0.3 10(9)/L 09/22/2023 11:20 AM CDT [facility] Immature Granulocyte % 0.5 0.0 - 0.5 % 09/22/2023 11:20 AM CDT [facility] Blood Venipuncture / Unknown 09/22/2023 11:16 AM CDT 09/22/2023 11:16 AM CDT [employer] W Desilet DO LAB_1 Performing Organization Address City/[facility] Co de Phone Number [facility] [address] [place] [address] * (ABNORMAL) C4 Complement (09/22/2023 11:16 AM CDT) C4 Complement 13.0(L) 15.0 - 57.0 mg/dL 09/22/2023 4:37 PM CDT [facility] Blood Venipuncture / Unknown 09/22/2023 11:16 AM CDT 09/22/2023 11:16 AM CDT [employer] Desilet DO LAB_1 Performing Organization Address [facility] Co de Phone Number [facility] [address] * C3 Complement (09/22/2023 11:16 AM CDT) C3 Complement 85 83 - 193 mg/dL 09/22/2023 4:37 PM CDT [facility] Blood Venipuncture / Unknown 09/22/2023 11:16 AM CDT 09/22/2023 11:16 AM CDT Luke W Desilet DO LAB_1 Performing Organization Address City/[facility] Co de Phone Number [facility] [address] * (ABNORMAL) Comp Metabolic Panel (09/22/2023 11:16 AM [facility]) Sodium 140 136 - 145 mmol/L 09/22/2023 1:44 PM [facility] Potassium 4.9 3.5 - 5.1 mmol/L 09/22/2023 1:44 PM [facility] Chloride 108 98 - 109 mmol/L 09/22/2023 1:44 PM [facility] CO2 20 20 - 29 mmol/L 09/22/2023 1:44 PM [facility] Anion Gap 12 6 - 16 mmol/L 09/22/2023 1:44 PM [facility] Calcium 10.2 8.4 - 10.4 mg/dL 09/22/2023 1:44 PM [facility] BUN 37(H) 7 - 26 mg/dL 09/22/2023 1:44 PM [facility] Creatinine 0.94 0.55 - 1.02 mg/dL 09/22/2023 1:44 PM [facility] Alkaline Phosphatase 34(L) 40 - 150 U/L 09/22/2023 1:44 PM [facility] AST (SGOT) 21 10 - 40 U/L 09/22/2023 1:44 PM [facility] ALT (SGPT) 18 <=55 U/L 09/22/2023 1:44 PM [facility] Bilirubin, Total 0.3 0.2 - 1.2 mg/dL 09/22/2023 1:44 PM [facility] Protein, Total 7.0 6.4 - 8.3 g/dL 09/22/2023 1:44 PM [facility] Albumin 4.0 3.5 - 5.0 g/dL 09/22/2023 1:44 PM [facility] Glucose 119(H) 70 - 100 mg/dL 09/22/2023 1:44 PM [facility] Comment:The given reference range is for the fasting state. Non-fasting reference range for glucose is 70 - 180 mg/dL. GFR, Estimated >60 >60 mL/min/1.7 3m2 09/22/2023 1:44 PM [facility] Hours Fasting 0.1 8 - 12 Hours 09/22/2023 1:44 PM CDT [facility] Comment:Lab unable to obtain patient's fasting status at time of specimen collection. Blood Venipuncture / Unknown 09/22/2023 11:16 AM CDT 09/22/2023 11:16 AM CDT Luke W Desilet DO LAB_1 Performing Organization Address City/State/[facility] Co de Phone Number [facility] [address] [place] [address] documented in this encounter Visit Diagnoses Diagnosis Systemic lupus erythematosus, unspecified SLE type, unspecified organ involvement status (HRC) documented in this encounter Care Teams Order Entry Technician Relationship Specialty Start Date End Date Dalton Esqueda MD [address] [place] [address] PCP - General Family Practice 06/23/23 documented as of this encounter
--- OUTSIDE RECORDS SUMMARY | 2023-10-18 19:42 | XMS_ITS | Encounter Summary ---
Author Organization [employer] Address [address] [place] [address] Care Team Providers Care Sack Department Supervisor Name Role Phone Dalton Esqueda MD Primary Care Provider [phone] Reason for Visit * Reason Comments Follow-up Encounter Details Date Type Department Care Team (Late st Contact Info) Description 10/13/2023 3:30 PM CDT [facility] [address] [facility] [address] [place] [address] Wilfredo Howell III, MD [address] [place] [address] Hypertension, unspecified type (HRC) (Primary Dx); Tobacco use disorder (HRC); PAD (peripheral artery disease) (HRC); Mixed hyperlipidemia [...] Sign Reading Time Taken Comments Blood Pressure 199/94 10/13/2023 3:32 PM CDT Pulse 60 10/13/2023 3:32 PM CDT Temperature - - Respiratory Rate - - Oxygen Saturation - - Inhaled Oxygen Concentration - - Weight 57.2 kg (126 lb) 10/13/2023 3:32 PM CDT Height 165.1 cm (5' 5) 10/13/2023 3:32 PM CDT Body Mass Index 20.97 10/13/2023 3:32 PM CDT documented in this encounter Progress Notes * Wilfredo Howell III, MD - 10/13/2023 3:30 PM CDT Cardiology Progress Note: S: I had the opportunity to visit with Nicolle in cardiology clinic today. She is a 68-year-old female with fibromyalgia, lupus, peripheral arterial disease, hypertension, active tobacco use, cerebralaneurysms, diffuse multi joint discomfort, hypothyroid state, anxiety, active cannabis use, hyperlipidemia, and significantly elevated hypertension. Nicolle was seen by me in consultation in August of this year. At that visit, she describes multiple drug intolerances and chronic significant elevated blood pressure. Medication changes were attempted. This included initiating carvedilol at 3.125 mg twice daily. She was able to tolerate a combination of carvedilol, spironolactone, and lisinopril. However, when carvedilol dose was increased she developed severe life-limiting dizziness without change in blood pressure. Blood pressures have now been persistently ranging between 180 mmHg in 205 mmHg for the systolic blood pressure. Blood pressure today was confirmed both with Omron measurement and direct manual measurements. Nicolle has no complaints of headache, visual changes, but does describe symptoms of ???fatigue?? . She has no complaints of exertional chest pressure or pain. Nicolle has no orthopnea, PND, and no lower extremity edema. Outpatient Medications Prior to Visit Medication Sig Dispense Refill acetaminophen (TYLENOL 8 HOUR ARTHRITIS PAIN) 650 MG controlled release tablet alendronate (FOSAMAX) 70 MG tablet Take 1 Tablet (70 mg) by mouth once every week. Take 30 minutes before first txds-[id number]. Avoid lying down for 30 minutes. 12 Tablet 3 aspirin (ASPIRIN 81) 81 MG chewable tablet Betaine HCl 300 MG TABS as directed Orally carvedilol (COREG) 3.125 MG tablet Take 2 Tablets (6.25 mg) by mouth two times a day with meals. 90Tablet 3 cholecalciferol (VITAMIND3) 50 MCG (2000 UT) tablet Take 1 Tablet (2,000 Units) by mouth daily. clobetasol (TEMOVATE) 0.05 % cream 1 Application. drug not in computer GI response drug not in computer ProOmega ezetimibe (ZETIA) 10 MG tablet Take 1 Tablet (10 mg) by mouth daily. Ezetimibe-Rosuvastatin 10-10 MG TABS hydroxychloroquine (PLAQUENIL) 200 MG tablet Take 1 Tablet (200 mg) by mouth daily. 90 Tablet 3 levothyroxine (SYNTHROID) 25 MCG tablet 1 tablet in the morning on an empty stomach Orally Once a day LORazepam (ATIVAN) 0.5 MG tablet Take by mouth. Magnesium Bisglycinate (MAG GLYCINATE OR) magnesium oxide (MAG-OX) 400 MG tablet 1 tablet as needed Orally Once a day medical cannabis patient certified mercaptopurine (PURINETHOL) 50 MG tablet as directed Orally Two times a day (Patient not taking: Reported on 10/13/2023) Multiple Vitamin (MULTIVITAMINS OR) mycophenolate (CELLCEPT) 500 MG tablet Take 2 Tablets (1,000 mg) by mouth two times a day. 360 Tablet 1 Naltrexone HCl, Pain, (NALTREX) 4.5 MG CAPS omeprazole (PRILOSEC) 40 MG capsule Take 1 Capsule (40 mg) by mouth two times a day. ondansetron (ZOFRAN-ODT) 4 MG disintegrating tablet Take by mouth. pilocarpine (SALAGEN) 5 MG tablet 1 tablet Orally Three times a day PRALUENT 75 MG/ML SOAJ Inject subcutaneously. predniSONE (DELTASONE) 2.5 MG tablet Take 3 Tablets (7.5 mg) by mouth daily. 270 Tablet 1 probiotic (AKA SUPER PROBIOTIC) Take 2 Capsules by mouth daily. SORBITOL-SACCHARIN OR (Patient not taking: Reported on 10/13/2023) spironolactone (ALDACTONE) 25 MG tablet Take 1 Tablet (25 mg) by mouth daily. 90 Tablet 3 tacrolimus (PROTOPIC) 0.1 % ointment Apply topically two times a day. to affected areas as directed. 60 g 2 triamcinolone acetonide (KENALOG) 0.025 % ointment Triamcinolone Acetonide triamcinolone acetonide (KENALOG) 0.1 % ointment Apply topically two times a day. To areas of rash 80 g 2 Turmeric 500 MG CAPS as directed Orally Two times a day lisinopril (ZESTRIL) 40 MG tablet Meloxicam (MOBIC) 15 MG tablet Take 1 Tablet (15 mg) by mouth daily. No facility-administered medications prior to visit. O: BP (!) 199/94 (BP Location: Left Arm, BP Cuff Size: Regular) Pulse 60 Ht 5' 5 (165.1 cm) Wt 126 lb (85694 g) BMI 20.97 kg/m?? Estimated body mass index is 20.97 kg/m?? as calculated from the following: Height as of this encounter: 5' 5 (165.1 cm). Weight as of this encounter: 126 lb (87575 g). GEN- patient awake alert and conversant NEURO- moves all four extremities appropriately. PSYCH- outgoing and positive mood HEAD- normocephalic and atraumatic EYES- no icterus and extraocular muscles are grossly intact NECK- supple, JVP 3cm and no carotid bruits OROPHARYNX- no erythema and no tonsillar exudates CV- RRR, normal s1 and s2, no murmurs, PMI is normal EXT- no edema bilaterally SKIN- no new rash, no itching Impression and Plan: 1) HTN- significant elevation in blood pressure is noted today and on home Omron blood pressure measurements. Blood pressures are elevated enough that I have recommended hospitalization to try and achieve the most efficient lowering of blood pressure. She declined this offered today. Nicolle previously was thought to be under good control with lisinopril 40 mg daily and Cardura 2 mg daily. However, she has also had multiple drug intolerances noted and described being unable to take doxazosin because of suspected drug based symptoms. At our 1st visit in early August, medication changes included starting spironolactone and ensuring that she was taking carvedilol. With this change blood pressure has not significantly improved. She was unable to tolerate an uptitration of carvedilol because of development of dizziness with no change in blood pressure. I have recommended again trying to increasecarvedilol, this recommendation was declined. Because she is able to tolerate an BRIAN inhibitor, I would like to see if she would tolerate Entresto. To facilitate a possible transition, I recommended discontinuing lisinopril and adding losartan. She will then talk to her pharmacist to see what cost would be associated with a change to Entresto. In addition, I have asked her to discontinue all NSAIDs (currently intermittently using Advil and is using meloxicam). If blood pressures remain elevatedover the next 3-4 days with systolic blood pressure greater than 180 mmHg, I would strongly advise that she be hospitalized given multiple drug intolerances and side effects. As, she is at significant risk for both short- term and long-term health problems with these high blood pressures. And, direct observation while taking medications may be helpful in establishing a long-term plan more efficiently. 2) PAD- previous bilateral iliac stents noted. [...] experienced signs and symptoms consistent with sciatica. Use of NSAIDs should be stopped, I have asked her to discontinue meloxicam. 5) Cerebral Aneurysm- stable. MCA aneurysm of 7 mm and 3 mm PICA aneurysm noted. Trying to control elevated blood pressure as best as possible has been recommended. Therefore, risk benefit ratio favors trying to be aggressive with blood pressure control. 6) HLD- tolerating Zetia, intolerant to multiple statins per report. Total length of time of the appointment was greater than 30 minutes. This included time spent reviewing past medical records, cardiac tests, and time spent [id number] with patient. documented in this encounter Plan of Treatment Upcoming Encounters Date Type Department Care Team (Late st Contact Info) Description 12/22/2023 10:45 AM CDT Appointment [facility] [address] [place], [place] [phone] Freeman Lopez DO [address] [place] [id number] documented as of this encounter Visit Diagnoses Diagnosis Hypertension, unspecified type (HRC)- Primary Tobacco use disorder (HRC) Tobacco use disorder PAD (peripheral artery disease) (HRC) Unspecified disorders of arteries and arterioles Mixed hyperlipidemia (HRC) Mixed hyperlipidemia documented in this encounter Care Teams Sack Department Supervisor Relationship Specialty Start Date End Date Dalton Esqueda MD [address] [place] [address] PCP - General Family Practice 06/23/23 documented as of this encounter
--- OUTSIDE RECORDS SUMMARY | 2023-10-18 19:42 | XMS_ITS | Clinical Summary ---
Author Organization [facility] Address [address] [place] [address] Care Team Providers Care Firefighting Equipment Specialist Name Role Phone Dalton Esqueda MD Primary Care Provider [phone] Source Comments You are receiving this document as you are listed as the primary care provider,follow-up provider, or the patient has been referred to you for consultation.This is in compliance with the Medicare andMedicaid EHR Incentive Program,which states Providers who transition their patient to another setting of careor provider of care or refers their patient to another provider of care shouldprovide summary care record for each transition of care or referral. [employer] Allergies Active Allergy Reactions Criticality Noted Date [...] Dispensed Refills Start Date End Date Status ezetimibe (ZETIA) 10 MG tablet Take 1 Tablet (10 mg) by mouth daily. 10/22/19 23 Active Naltrexone HCl, Pain, (NALTREX) 4.5 MG CAPS Active omeprazole (PRILOSEC) 40 MG capsule Take 1 Capsule (40 mg) by mouth two times a day. 01/13/20 Active PRALUENT 75 MG/ML SOAJ Inject subcutaneously. Active aspirin (ASPIRIN 81) 81 MG chewable tablet Active acetaminophen (TYLENOL 8 HOUR ARTHRITIS PAIN) 650 MG controlled release tablet Active ondansetron (ZOFRAN-ODT) 4 MG disintegrating tablet Take by mouth. 03/12/20 Active medical cannabis patient certified Active hydroxychloroquine (PLAQUENIL) 200 MG tablet Take 1 Tablet (200 mg) by mouth daily. 90 Tablet 3 03/22/20 23 024 Active alendronate (FOSAMAX) 70 MG tablet Take 1 Tablet (70 mg) by mouth once every week. Take 30 minutes before first mbbk-phsga-mtbldi tion. Avoid lying down for 30 minutes. 12 Tablet 3 03/22/20 23 Active Magnesium Bisglycinate (MAG GLYCINATE OR) Active Multiple Vitamin (MULTIVITAMINS OR) Active cholecalciferol (VITAMIND3) 50 MCG (2000 UT) tablet Take 1 Tablet (2,000 Units) by mouth daily. Active probiotic (AKA SUPER PROBIOTIC) Take 2 Capsules by mouth daily. Active SORBITOL-SACCHARIN OR Active drug not in computer GI response Active drug not in computer ProOmega Active triamcinolone acetonide (KENALOG) 0.1 % ointment Apply topically two times a day. To areas of rash 80 g 2 07/11/19 Active spironolactone (ALDACTONE) 25 MG tablet Take 1 Tablet (25 mg) by mouth daily. 90 Tablet 3 08/26/19 24 025 Active carvedilol (COREG) 3.125 MG tablet Take 2 Tablets (6.25 mg) by mouth two times a day with meals. 90 Tablet 3 09/02/19 24 025 Active predniSONE (DELTASONE) 2.5 MG tablet Take 3 Tablets (7.5 mg) by mouth daily. 270 Tablet 1 09/22/19 24 024 Active mycophenolate (CELLCEPT) 500 MG tablet Take 2 Tablets (1,000 mg) by mouth two times a day. 360 Tablet 1 09/22/19 24 025 Active clobetasol (TEMOVATE) 0.05 % cream 1 Application. Active Turmeric 500 MG CAPS as directed Orally Two times a day Active pilocarpine (SALAGEN) 5 MG tablet 1 tablet Orally Three times a day Active mercaptopurine (PURINETHOL) 50 MG tablet as directed Orally Two times a day Active magnesium oxide (MAG-OX) 400 MG tablet 1 tablet as needed Orally Once a day Active LORazepam (ATIVAN) 0.5 MG tablet Take by mouth. 08/24/19 24 Active levothyroxine (SYNTHROID) 25 MCG tablet 1 tablet in the morning on an empty stomach Orally Once a day Active Ezetimibe-Rosuvast atin 10-10 MG TABS Active triamcinolone acetonide (KENALOG) 0.025 % ointment Triamcinolone Acetonide Active tacrolimus (PROTOPIC) 0.1 % ointmentIndication s:Lupus (HRC) Apply topically two times a day. to affected areas as directed. 60 g 2 10/10/19 24 Active losartan (COZAAR) 100 MG tablet Take 1 Tablet (100 mg) by mouth daily. 90 Tablet 3 10/13/19 24 025 Active lisinopril (ZESTRIL) 40 MG tablet Discontinued Meloxicam (MOBIC) 15 MG tablet Take 1 Tablet (15 mg) by mouth daily. 01/13/20 23 024 Discontinued mycophenolate (CELLCEPT) 500 MG tablet Take 1 Tablet (500 mg) by mouth two times a day. 180 Tablet 1 03/23/20 23 024 Discontinued(*M ed change OR same med OR reorder, new dose/directions ) predniSONE (DELTASONE) 2.5 MG tablet Take 3 Tablets (7.5 mg) by mouth daily. 270 Tablet 1 06/23/19 24 024 Discontinued(*M ed change OR same med OR reorder, new dose/directions ) mycophenolate (CELLCEPT) 500 MG tablet Take 2 Tablets (1,000 mg) by mouth two times a day. 180 Tablet 1 09/22/19 24 024 Discontinued(*M ed change OR same med OR reorder, new dose/directions ) Betaine HCl 300 MG TABS as directed Orally 024 Discontinued tacrolimus (PROTOPIC) 0.1 % ointmentIndication s:Lupus (HRC) Apply topically two times a day. to affected areas as directed. 60 g 2 10/04/19 24 024 Discontinued(*M ed change OR same med OR reorder, new dose/directions ) losartan (COZAAR) 25 MG tablet Take 4 Tablets (100 mg) by mouth daily. 90 Tablet 3 10/13/19 24 024 Discontinued(*M ed change OR same med OR reorder, new dose/directions ) Active Problems Problem Noted Date Diagnosed Date [...] Encounters Date Type Department Care Team Description 10/13/2023 3:30 PM CDT Office Visit [facility] [place] [address] [facility] [address] [place] [address] Wilfredo Howell III, MD Hypertension, unspecified type (HRC) (Primary Dx); Tobacco use disorder (HRC); PAD (peripheral artery disease) (HRC); Mixed hyperlipidemia (HRC) 10/13/2023 Telephone [facility] Card[facility] [address] [facility] [address] Wilfredo Howell III, MD Medication Questions 10/10/2023 Telephone [facility] [address] [place] [address] Eva Long MD Medication Follow Up 10/04/2023 10:00 AM CDT Office Visit [facility] [address] [place] [address] Eva Long MD Lupus (HRC) (Primary Dx); Hair loss 10/03/2023 Telephone [facility] Cardiology [address] [place] [address] Wilfredo Howell III, MD UPDATE 09/23/2023 Telephone [place] [address] [place] [address]. [place] [address] Desilet, Luke W, DO LAB RESULTS 09/22/2023 1:30 PM CDT Lab Visit [facility] [address] [place] [address] Systemic lupus erythematosus, unspecified SLE type, unspecified organ involvement status (HRC) 09/22/2023 10:45 AM CDT Office Visit [facility] [address] [place] [address] Desilet, Luke W, DO Systemic lupus erythematosus, unspecified SLE type, unspecified organ involvement status (HRC) (Primary Dx); High risk medication use; Osteoporosis, unspecified osteoporosis type, unspecified pathological fracture presence (HRC); Essential hypertension (HRC) 09/22/2023 Refill [place] [address] [place] [address]. [place] [address] Desilet, Luke W, DO Refill 09/09/2023 Telephone [facility] [address] [facility] [address] Wilfredo Howell III, MD BLOOD PRESSURE, HIGH 09/02/2023 Telephone [facility] [place] [address] [place] [address] Wilfredo Howell III, MD BLOOD PRESSURE, HIGH 08/26/2023 3:00 PM CDT Initial Consult [facility] [address] Cardiology [address] [place] [address] Wilfredo Howell III, MD Hypertension, unspecified type (HRC) (Primary Dx); Fibromyalgia; Tobacco use disorder (HRC); Brain aneurysm; PAD (peripheral artery disease) (HRC); Mixed hyperlipidemia (HRC) 08/24/[address] [facility] [address] Rheumatology [address] [facility] [place] [address] DesiletFreeman DO Orders Needed from Last 3 Months Immunizations Name Administration Dates Next Due Flu Vac (3+ yrs) 03/21/2013, 2,02/26/2011, 010,02/06/2009 Flu Vac Preserv Free (3+yrs) 02/26/2011 [id number] 04/15/2009 Influenza [id number] 2009 Influenza IIV4 (Quadrivalent ) 0.5mL ([address]6639) 01/17/2017,03/03/2016,01/15/2015, 014,04/15/2009 PPSV23 (Pneumovax) 04/06/2002 Td 04/06/2002 [...] Mass Index 20.97 10/13/2023 3:32 PM CDT Plan of Treatment Upcoming Encounters Date Type Department Care Team (Late st Contact Info) Description 12/22/2023 10:45 AM CDT Appointment [facility] [address] [place] [address] DesileFreeman mora DO [address] [place], [place] [id number] Health Maintenance Due Date Last Done Comments Colon Cancer Screening Plan Due 1955 Hep C Screening (Preventive Services) 1955 Medicare Annual Wellness Visit 1955 Cholesterol 1999 Zoster/Shingles (1 of 2) 2004 Pneumococcal 65+ Yrs (2 - PCV) 2019 04/06/2002 Mammogram 03/07/2020 03/07/2019 COVID-19 Vaccine ( - season) 2022 Influenza (Season Ended) 2023 [...] 3:00 PM CDT Hypertension, unspecified type (HRC) from Last 3 Months Results * (ABNORMAL) Urinalysis Routine, Micro/Culture if Pos: Clean Catch (09/22/2023 11:21 AM CDT) Urine Culture Comment Urinalysis results do not meet criteria for urine culture reflex. 09/22/2023 11:28 AM T [facility] Urine Color Straw 09/22/2023 11:28 AM [facility] Urine Clarity Clear Clear 09/22/2023 11:28 AM [facility] Specific [place], Urine <=1.005(A) 1.005 - 1.030 09/22/2023 11:28 AM [facility] PH Urine 6.0 5.0 - 8.0 09/22/2023 11:28 AM [facility] Protein, Urine Qual (mg/dL) Negative Neg/Trace 09/22/2023 11:28 AM [facility] Glucose Urine Qual (mg/dL) Negative Negative 09/22/2023 11:28 AM [facility] Ketones, Urine (mg/dL) Negative Negative 09/22/2023 11:28 AM [facility] Urobilinogen, Urine (EU/dL) 0.2 <2.0 09/22/2023 11:28 AM [facility] Bilirubin Urine Negative Negative 09/22/2023 11:28 AM [facility] Blood, Urine Negative Neg/Trace 09/22/2023 11:28 AM [facility] Nitrite Urine Negative Negative 09/22/2023 11:28 AM [facility] Leukocyte Est. Negative Negative 09/22/2023 11:28 AM [facility] Urine Source Clean Catch 09/22/2023 11:28 AM [facility] Urine URINE SPECIMEN COLLECTION, CLEAN CATCH / Unknown Non-blood Collection / Unknown 09/22/2023 11:21 AM CDT 09/22/2023 11:21 AM CDT Luke W Desilet DO LAB_1 Performing Organization Address City/State/[facility] Co de Phone Number [facility] [address] [place] [address] * TP/Crea Ratio, Urine (09/22/2023 11:21 AM CDT) TP/Creat Ratio, Urine Random 0.17 0.00 - 0.20 09/22/2023 4:26 PM CDT [facility] Total Protein, Urine, Random 3 0 - 14 mg/dL 09/22/2023 4:26 PM CDT [facility] Creatinine, Urine, Random 18 >20 mg/dL mg/dL 09/22/2023 4:26 PM CDT [facility] Comment:The overall interpre tation for this test is normal (the ratio is within the reference interval). Individual test components may fall outside the reference interval but still give a normal overall test result. Urine URINE SPECIMEN COLLECTION, CLEAN CATCH / Unknown Non-blood Collection / Unknown 09/22/2023 11:21 AM CDT 09/22/2023 11:21 AM CDT Narrative [facility] - 09/22/2023 4:26 PM CDT Low urine creatinine values coupled with low urine protein values can artifactually increase the urine protein/creatinine results. Correlate results of ratio with creatinine results. Luke W Desilet DO LAB_1 [facility] [address] [place], [place] [address] * Complete Blood Count-W/Diff (09/22/2023 11:16 AM CDT) WBC 8.6 3.5 - 10.5 x10(9)/L 09/22/2023 11:20 AM [facility] RBC 3.96 3.90 - 5.03 x10(12)/L 09/22/2023 11:20 AM [facility] Hemoglobin 12.5 12.0 - 15.5 g/dL 09/22/2023 11:20 AM [facility] HCT 37.4 34.9 - 44.5 % 09/22/2023 11:20 AM [facility] MCV 94.4 80.0 - 100.0 fL 09/22/2023 11:20 AM [facility] MCH 31.6 27.6 - 33.3 pg 09/22/2023 11:20 AM [facility] MCHC 33.4 31.5 - 35.2 g/dL 09/22/2023 11:20 AM [facility] RDW 14.5 11.9 - 15.5 % 09/22/2023 11:20 AM [facility] Platelets 235 150 - 450 x10(9)/L 09/22/2023 11:20 AM [facility] Automated NRBC 0 <=0 /100 WBC 09/22/2023 11:20 AM [facility] Neutrophil Absolute 7.0 1.7 - 7.0 10(9)/L 09/22/2023 11:20 AM [facility] Lymphocyte Absolute 1.1 1.0 - 4.8 10(9)/L 09/22/2023 11:20 AM [facility] Monocyte Absolute 0.4 0.2 - 0.9 10(9)/L 09/22/2023 11:20 AM [facility] Eosinophil Absolute 0.0 0.0 - 0.5 10(9)/L 09/22/2023 11:20 AM [facility] Basophil Absolute 0.0 0.0 - 0.3 10(9)/L 09/22/2023 11:20 AM [facility] Immature Granulocyte % 0.5 0.0 - 0.5 % 09/22/2023 11:20 AM [facility] Blood Venipuncture / Unknown 09/22/2023 11:16 AM CDT 09/22/2023 11:16 AM T Luke W Desilet DO LAB_1 [facility] [address] [place] [address] * (ABNORMAL) Comp Metabolic Panel (09/22/2023 11:16 AM CDT) Sodium 140 136 - 145 mmol/L 09/22/2023 1:44 PM [facility] Potassium 4.9 3.5 - 5.1 mmol/L 09/22/2023 1:44 PM [facility] Chloride 108 98 - 109 mmol/L 09/22/2023 1:44 PM [facility] CO2 20 20 - 29 mmol/L 09/22/2023 1:44 PM [facility] Anion Gap 12 6 - 16 mmol/L 09/22/2023 1:44 PM [facility] Calcium 10.2 8.4 - 10.4 mg/dL 09/22/2023 1:44 PM [facility] BUN 37(H) 7 - 26 mg/dL 09/22/2023 1:44 PM [facility] Creatinine 0.94 0.55 - 1.02 mg/dL 09/22/2023 1:44 PM [facility] Alkaline Phosphatase 34(L) 40 - 150 U/L 09/22/2023 1:44 PM [facility] AST (SGOT) 21 10 - 40 U/L 09/22/2023 1:44 PM [facility] ALT (SGPT) 18 <=55 U/L 09/22/2023 1:44 PM [facility] Bilirubin, Total 0.3 0.2 - 1.2 mg/dL 09/22/2023 1:44 PM [facility] Protein, Total 7.0 6.4 - 8.3 g/dL 09/22/2023 1:44 PM [facility] Albumin 4.0 3.5 - 5.0 g/dL 09/22/2023 1:44 PM [facility] Glucose 119(H) 70 - 100 mg/dL 09/22/2023 1:44 PM [facility] Comment:The given reference range is for the fasting state. Non-fasting reference range for glucose is 70 - 180 mg/dL. GFR, Estimated >60 >60 mL/min/1.7 3m2 09/22/2023 1:44 PM [facility] Hours Fasting 0.1 8 - 12 Hours 09/22/2023 1:44 PM [facility] Comment:Lab unable to obtain patient's fasting status at time of specimen collection. Blood Venipuncture / Unknown 09/22/2023 11:16 AM CDT 09/22/2023 11:16 AM CDT Sherylke W Desilet DO LAB_1 [facility] [address] [place] [address], [facility] * (ABNORMAL) C4 Complement (09/22/2023 11:16 AM CDT) C4 Complement 13.0(L) 15.0 - 57.0 mg/dL 09/22/2023 4:37 PM CDT [facility] Blood Venipuncture / Unknown 09/22/2023 11:16 AM CDT 09/22/2023 11:16 AM CDT [facility] Desilet DO LAB_1 Performing Organization Address [facility] Co de Phone Number [facility] [address] * C3 Complement (09/22/2023 11:16 AM CDT) C3 Complement 85 83 - 193 mg/dL 09/22/2023 4:37 PM CDT [facility] Blood Venipuncture / Unknown 09/22/2023 11:16 AM CDT 09/22/2023 11:16 AM CDT [facility] Archiveilet DO LAB_1 Performing Organization Address [facility] de Phone Number [facility] [address] * ECG 12 Lead Outpatient (08/26/2023 3:00 PM CDT) Ventricular Rate 66 BPM MUSE [facility] Atrial Rate 66 BPM [facility]USE [facility] P-R Interval 174 ms MUSE [facility] QRS Duration 80 ms MUSE [facility] QT 368 ms MUSE [facility] QTc 385 ms MUSE [facility] P [place] 77 degrees MUSE GHP R [place] 73 degrees MUSE GHP T [place] 81 degrees MUSE GHP 08/26/2023 3:00 PM [...] ECG ORDERABLE S [facility] [address] [place] [address] from Last 3 Months Care Teams Firefighting Equipment Specialist Relationship Specialty Start Date End Date Dalton Esqueda MD [address] [place] [address] PCP - General Family Practice 06/23/23
--- OUTSIDE RECORDS SUMMARY | 2023-10-18 19:43 | XMS_ITS | Encounter Summary ---
Author Organization [employer] Address [address] [place] [address] Care Team Providers Care Cnc Operator Name Role Phone Dalton Esqueda MD Primary Care Provider [phone] Reason for Visit * Reason Comments Referral [...] status (HRC) Merrickea corporis Freeman Lopez DO [address] [place] [address] Referral ID Status Reason Start Date Expiration Date V isits Requested Visits Authorized [id number] New Request 06/23/2023 09/21/2024 1 1 Encounter Details Date Type Department Care Team (Late st Contact Info) Description 07/05/2023 1:15 PM CDT Office Visit [facility] [address] [place], [place] [address] Eva Mars MD [address] [place] [phone] Systemic lupus erythematosis (HRC) (Primary Dx); Cutaneous lupus erythematosus; Rash Social History Tobacco Use Types Packs/Day Years Used Date Smoking Tobacco: Every Day Cigarettes Smokeless Tobacco: Never Sex and Gender Information Value Date Recorded Sex Assigned at Not on file Gender Identity Not on file Sexual Orientation Not on file documented as of this encounter Patient Instructions * Patient Instructions* Milly MurrayNEAL - 07/05/2023 1:15 PM CDT Images from [...] 7.5 mg dailyand Plaquenil 200 mg daily. [place] oil on eyelids. Reports that she wanted [...] and Family History: Reviewed and updated in [facility] Social History: She lives in [place] Medications: The patient has a current medication [...] sooner for new concerns. Eva Mars MD [facility] documented in this encounter Plan of Treatment Upcoming Encounters Date Type Department Care Team (Late st Contact Info) Description 12/22/2023 10:45 AM CDT Appointment [facility] [address] [place] [address] Desilet, Freeman W, DO [address] [place], [place] [phone] documented as of this encounter Procedures Procedure [...] Case Report Surgical Pathology Report ? Case: [id number] ? Authorizing Provider: ??Eva Mars MD ? Collected: ? 07/05/2023 1317 ? Ordering Location: ? [facility] ? Received: ?07/06/2023 0917 ? Pathologist: ? Romero Cervantes MD ? Specimen: ?Skin, Right Upper Arm - Posterior ? 07/11/2023 2:18 PM CDT TECHNOLOGY ADVISOR [facility] FINAL DIAGNOSIS A. Skin, Right [...] if clinically indicated. 07/11/2023 2:18 PM CDT TECHNOLOGY ADVISOR [facility] DER[facility] Clinical Information Clinical Impression: SCLE r/o tinea corporis (pt has SLE, on immunosuppressio n, h/o tinea corporis) 07/11/2023 2:18 PM CDT TECHNOLOGY ADVISOR [facility]00 DERMATOLOGY Microscopic Description Microscopic examination is performed. 07/11/2023 2:18 PM CDT TECHNOLOGY ADVISOR [facility]00 DERMATOLOGY Special Stains The stain controls have been reviewed and stain appropriately. 07/11/2023 2:18 PM CDT TECHNOLOGY ADVISOR [facility]00 DER[facility] Technical Information A portion of the technical [place] [address]. 07/11/2023 2:18 PM CDT TECHNOLOGY ADVISOR [facility]00 DERMATOLOGY Gross Description A: Received in formalin, labeled with the patient's name and Skin, Right Upper Arm - Posterior is a 4 x 4 x 5 mm punch biopsy of skin. The specimen is marked with blue ink, bisected, and submitted entirely in one cassette. TV 07/11/2023 2:18 PM CDT TECHNOLOGY ADVISOR 3800 DERMATOLOGY Embedded Images 07/11/2023 2:18 PM T TECHNOLOGY ADVISOR 3800 DERMATOLOGY Skin (Skin) 07/05/2023 1:17 PM CDT 07/06/2023 9:17 AM CDT Comment:Clinical Impression: SCLE r/o tinea corporis (pt has SLE, on immunosuppression, h/o tinea corporis) Eva Mars MD LAB PATHOLOGY Performing Organization Address City/State/[facility] Co de Phone Number [facility] [address] [facility] [address] documented in this encounter Visit Diagnoses Diagnosis Systemic lupus erythematosis- Primary Cutaneous lupus erythematosus Lupus erythematosus Rash Rash and other nonspecific skin eruption documented in this encounter Care Teams Cnc Operator Relationship Specialty Start Date End Date Dalton Esqueda MD [address] [place] [address] PCP - General Family Practice 06/23/23 documented as of this encounter
--- OUTSIDE RECORDS SUMMARY | 2023-10-18 19:43 | XMS_ITS | Encounter Summary ---
Author Organization [employer] Address [address] [place] [address] Care Team Providers Care Director Of Graduate Medical Education Name Role Phone Dalton Canales MD Primary Care Provider + [phone] Reason for Visit * Reason Comments CONSULT * Consult/Transfer Care (Routine) - New Request Specialty Diagnoses / Procedures Referred By Contac t Referred To Contact Cardiology Diagnoses Hypertension, unspecified type (HRC) Freeman Lopez, [address] [place] [address] Referral ID Status Reason Start Date Expiration Date V isits Requested Visits Authorized [id number] New Request 08/24/2023 11/22/2024 1 1 Encounter Details Date Type Department Care Team (Late st Contact Info) Description 08/26/2023 3:00 PM CDT Initial Consult [facility] [address] Cardiology [address] [place] [address] Wilfredo Howell III, MD [address] [place] [address] Hypertension, unspecified type (HRC) (Primary [...] cm). Weight as of 06/23/23: 118 lb (01679 g). GEN- patient awake alert and conversant [...] medical records, cardiac tests, and time spent [id number] with patient. documented in this encounter Plan of Treatment Upcoming Encounters Date Type Department Care Team (Late st Contact Info) Description 12/22/2023 10:45 AM CDT Appointment [facility] [address] [place] [address] DesiletFreeman, DO [address] [place] [address] documented as of this encounter Procedures Procedure [...] GHP QTc 385 ms MUSE GHP P [place] 77 degrees MUSE GHP R [place] 73 degrees MUSE GHP T [place] 81 degrees MUSE GHP 08/26/2023 3:00 PM [...] Howell III, MD PN ECG ORDERABLE S [facility] [address] [place] [address] documented in this encounter Visit Diagnoses Diagnosis Hypertension, unspecified type (HRC)- Primary Fibromyalgia Mylagia and myositis, unspecified Tobacco use disorder (HRC) Tobacco use disorder Brain aneurysm Cerebral aneurysm, nonruptured PAD (peripheral artery disease) (HRC) Unspecified disorders of arteries and arterioles Mixed hyperlipidemia (HRC) Mixed hyperlipidemia documented in this encounter Care Teams Director Of Graduate Medical Education Relationship Specialty Start Date End Date Dalton Canales MD [address] [place] [address] PCP - General Family Practice 06/23/23 documented as of this encounter
--- OUTSIDE RECORDS SUMMARY | 2023-10-18 19:43 | XMS_ITS | Encounter Summary ---
Author Organization [employer] Address [address] [place] [address] Care Team Providers Care Toy Electric Train Repairer Name Role Phone Dalton Esqueda MD Primary Care Provider [phone] Reason for Referral * Consult/Transfer Care (Routine) - New Request Specialty Diagnoses / Procedures Referred By Contac t Referred To Contact Cardiology Diagnoses Hypertension, unspecified type (HRC) Freeman Lopez DO [address] [email or web address] [address] Referral ID Status Reason Start Date Expiration Date V isits Requested Visits Authorized [id number] New Request 08/24/2023 11/22/2024 1 1 Scheduling Instructions Your provider has recommended an appointment with [facility]. You can quickly make your appointment online at [employer]/schedule. You can also call [phone] for help scheduling your appointment. We suggest you call your health insurance company about your coverage and benefits for this appointment. Question Answer Appointment Urgency? Non-Urgent Reason for visit? Refractory hypertension, patient prefers to stand within [facility] Reason for Visit * Reason Comments Orders Needed Encounter Details Date Type Department Care Team (Late st Contact Info) Description 08/24/2023 Telephone [facility] [email or web address] [place], [place] [id number] Freeman Lopez DO [address] [place] [address] Orders Needed Social History Tobacco Use Types [...] hypertension. If she can get in with [facility] sooner, I would recommend she do that. She can call cardiology at [phone] to schedule her appointment. Freeman Lopez DO 08/24/2023 1:22 PM * Amanda French RN - 08/24/2023 1:13 PM CDT Patient is requesting for a referral to see cardiology at [facility]. Patient states that she isstill having issues with her blood pressure and did reach out to her PCP but they wanted to refer her to cardiology at [place]; she wants to stay with [facility]. Please advise. documented in this encounter Plan of Treatment Upcoming Encounters Date Type Department Care Team (Late st Contact Info) Description 12/22/2023 10:45 AM CDT Appointment [facility] [address] [place] [address] Freeman Lopez DO [address] [place], [place] [address] Scheduled Referrals Name Type Priority Associated Diagnoses Orde r Schedule Cardiology Consult-Adults Referral Routine Hypertension, unspecified type (HRC) Ordered: 08/24/2023 documented as of this encounter Visit Diagnoses Diagnosis Hypertension, unspecified type (HRC)- Primary documented in this encounter Care Teams Toy Electric Train Repairer Relationship Specialty Start Date End Date Dalton Esqueda MD [address] [place] [address] PCP - General Family Practice 06/23/23 documented as of this encounter
--- OUTSIDE RECORDS SUMMARY | 2023-10-18 19:43 | XMS_ITS | Continuity of Care Document ---
Author Organization [facility] Address [address] [address] [place] [address] Phone Care Team Providers Care Living Skills Advisor Name Role Phone Sadaf LEBLANC, Ron Unavailable Unavailable Allergies, Adverse Reactions, Alerts Substance Reaction Status Criticality celecoxib Dizziness Active No Information MEPERIDINE HCL Immune to Narcotics Active No Inf ormation METOPROLOL TARTRATE Anaphylaxis Active No Infor mation morphine Immune to Narcotics Active No Infor mation OXYCODONE HCL Immune to Narcotics Active No Info rmation acetaminophen Immune to Narcotics Active No Info rmation atenolol Anaphylaxis Active No Information diazepam Immune to Narcotics Active No Infor mation MEPERIDINE HCL Nausea/Vomiting Active No Informa tion erythromycin base Nausea/Vomiting Active No Info rmation ATORVASTATIN CALCIUM Joint pain Active No Info rmation METOPROLOL TARTRATE Angioedema Active No Infor mation ampicillin Nausea/Vomiting Active No Informati on erythromycin base Nausea/Vomiting Active No Info rmation METOPROLOL TARTRATE Angioedema Active No Infor mation Sulfa (Sulfonamide Antibiotics) ItchingItching Active No Information tetracycline Nausea/Vomiting Active No Informati on adhesive tape ItchingItching Active No Informati on AMOXICILLIN TRIHYDRATE Nausea/Vomiting Active No Information POTASSIUM CLAVULANATE Nausea/Vomiting Active No Information celecoxib Dizziness Active No Information PROPOXYPHENE HCL Immune to Narcotics Active No I nformation MEPERIDINE HCL Dizziness Active No Informatio n clonazepam Dizziness Active No Information ATORVASTATIN CALCIUM Muscle Pain/ Raised Heart Rate Ac tive No Information METOPROLOL TARTRATE Altered Heart Rate Active No Information oxycodone Immune to Narotics Active No Inform ation PENICILLIN Nausea/Vomiting Active No Informati on OXYCODONE HCL Immune to narcotics Active No Info rmation acetaminophen Immune to narcotics Active No Info rmation phenytoin Dizziness Active No Information CLOPIDOGREL BISULFATE Altered Heart Rate Active No Information PRAVASTATIN SODIUM Muscle Pain Active No Inform ation atenolol Anaphylaxis Active No Information Medications Medication Instructions Dosage Effective Dates (start - stop) Status Comments fluconazole 200 mg tablet take 1 tablet by oral route every day 200 MG - Active Zetia 10 mg tablet take 1 tablet by oral route every day 10 MG - Active meloxicam 15 mg tablet take 1 tablet by oral route every day 15 MG - Active Plaquenil 200 mg tablet take 1 tablet by oral route every day 200 MG - Active RESISTANCE FORMULA PROBIOTIC (unknown strength) Not Available - Active prednisone 10 mg tablet take 1 tablet by oral route every day 10 MG - Active omeprazole 40 mg capsule,delayed release take 1 capsule by oral route every day before a meal (30-60 min before breakfast) - Active omeprazole 40 mg capsule,delayed release take 1 capsule by oral route every day before a meal (30-60 min before) - Active lisinopril 40 mg tablet take 1 tablet by oral route every day 40 MG - Active omeprazole 40 mg capsule,delayed release take 1 capsule by oral route 2 times every day before a meal (30-60min) - Active can stop pantoprazole. doxazosin 2 mg tablet take 1 tablet by oral route every day 2 MG - Active Tylenol Arthritis Pain 650 mg tablet,extended release take 1 tablet by ORAL route every day as needed 650 MG - Active Praluent Pen 75 mg/mL subcutaneous pen injector inject 1 milliliter by subcutaneous route every 2 weeks in the abdomen, thigh, or upper arm rotating injection sites 75 MG - Active levothyroxine 25 mcg capsule take 1 Tablet by Oral route every day 1 Tablet - Active magnesium 400 mg (as magnesium oxide) capsule take 2 by Oral route once 2 - Active CellCept 500 mg tablet take 1 Tablet by oral route 2 times every day 500 MG - Active Naltrex 4.5 mg capsule - Active ondansetron 4 mg disintegrating tablet take 1 tablet by ORAL route every [address] on top of the tongue where it will dissolve, then swallow 4 MG - Active pantoprazole 40 mg tablet,delayed release take 1 tablet by oral route 2 times every day 40 MG - Active prednisone 10 mg tablet take 1 tablet by oral route every day 10 MG - Active Herbal Medications/Suppleme nts unknown Electrolytes/Liqu id IV PO daily - Active Herbal Medications/Suppleme nts unknown Aloe Vera Juice 6oz PO daily - Active Herbal Medications/Suppleme nts unknown Medical Marijuana 10mg PO PRN - Active Procedures Procedure Date Interpretation Breath Test Ugi Endo; W/bx 1/mx Level Iv-surg Path Gross/micro 24 cancelled appt Colonoscopy Flex; W/remov Les- 23 Ugi Endo; W/bx 1/mx Level Iv-surg Path Gross/micro 23 Routine Serum Collection Offic/outpt E&m New Mod-fl Advance Directives Directive Yes / No Effective Date File Name No Information Encounters Encounter Description Practice Location Reason(s) For Visit Diagnoses Date Provider Providers Copied on Encounter [facility], [address] [address], [place], [place], [id number], [place] tel:[phone] [facility] No Information 4 Sadaf Velasquez. [address] [facility], [facility] [address], [place], [place], [id number], [place]. tel:[phone] [facility], [address] [address], [place], [place], [address], [place] tel:[phone] [facility] Abdominal distension (gaseous) 4 Andrew Wright. [address] [facility], [facility] [address], [place], [id number], [place]. tel:[phone] Referring Provider: Dalton Esqueda MD, [address] [place] [address], [address]. tel:[phone] [facility], [address] [address], [facility] [facility] [place], [id number], [place] tel:[phone] [facility] GI Symptoms or Concerns (chief complaint) Gastric ulcer without hemorrhage or perforation, unspecified chronicityBloati ngGastric ulcer, unsp as acute or chronic, w/o hemor or perfAbdominal distension (gaseous)Other diseases of stomach and duodenumDiaphrag matic hernia without obstruction or gangrene 4 Sadaf Velasquez. [address] [place] [address], [id number], [place]. tel:[phone] Referring Provider: Referral Self, USE FOR SELF REFERRALS. [facility], [address] [address], [facility] [place], [id number], [place] tel:[phone] [facility] GI Symptoms or Concerns (chief complaint) Gastric ulcer without hemorrhage or perforation, unspecified chronicity [address] [facility] [address] [place] [address], [id number], [place]. tel:[phone] Referring Provider: Referral Self, USE FOR SELF REFERRALS. [facility], [address] [address], [place], [id number], [place] tel:[phone] [facility] No Information 3 Abhijeet Gonzales. [address] [facility], [address], [id number], [place]. tel:[phone] [facility], [address] [address], [place], [id number], [place] tel:[phone] [facility] GI Symptoms or Concerns (chief complaint) Gastric erythemaGastric ulcer without hemorrhage or perforation, unspecified chronicityColore ctal polypsHemorrhoid s, internalEncounte r for screening for malignant neoplasm of colonPersonal history of colonic polypsBenign neoplasm of transverse colonDisease of stomach and duodenum, unspecifiedBenig n neoplasm of transverse colon 3 Sadaf Velasquez. [address] [facility], [address], [id number], [place]. tel:[phone] Referring Provider: Referral Self, USE FOR SELF REFERRALS. [facility], [address] [address], [place], [place], [id number], tel:[phone] [facility] Hypercalcemia Dec-0 3 Melquiades Winn. [address] [facility], [address], [id number], [place]. tel:[phone] Offic/outpt E&m [facility], [address] [address], [place], [place], [id number], [place] tel:[phone] [facility] GI Symptoms or Concerns (chief complaint) Generalized abdominal painWeight lossPersonal history of colonic polypsEpigastric pain 3 Melquiades Winn. [address] [place] [address], [id number], [place]. tel:[phone] Referring Provider: Dalton Esqueda MD, [address] [place], [address]. tel:[phone] [facility], [address] [address], [place], [place], [id number], [place] tel:[phone] No Information 3 No Information Referring Provider: Dalton Esqueda MD, [address] [place], [address]. tel:[phone] Family History Family Member Type Diagnosis Age At Onset Father Problem (finding) GERD Father Problem (finding) Colon polyps Father Problem (finding) Cancer, prostate Sister Problem (finding) Cancer Brother Problem (finding) GERD Sister Problem (finding) Cancer, breast Daughter Problem (finding) GERD Sister Problem (finding) Colon polyps Sister Problem (finding) Thyroid disorder Sister Problem (finding) GERD Daughter Problem (finding) Alcoholism Sister Problem (finding) Alcoholism Father Problem (finding) Cancer, bladder Daughter Problem (finding) Thyroid disorder Brother Problem (finding) Colon polyps Immunizations Vaccine Date Status Comments tetanus toxoid, reduced diphtheria toxoid, and acellular pertussis vaccine, adsorbed administered Note: [facility] b i-directional interface ; Source: Other Registry Afluria Qd administered Note: [facility] bi-directional interface ; Source: Other Registry Afluria Qd administered Note: [facility] bi-directional interface ; Source: Other Registry Afluria Qd administered Note: [facility] bi-directional interface ; Source: Other Registry Afluria Qd administered Note: [facility] bi-directional interface ; Source: Other Registry tetanus toxoid, reduced diphtheria toxoid, and acellular pertussis vaccine, adsorbed administered Note: [facility] b i-directional interface ; Source: Other Registry Influenza, seasonal, injecta ble, preservative free administered Note: [facility] bi-direct ional interface ; Source: Other Registry Influenza, seasonal, injectable administe red Note: [facility] bi- directional interface ; Source: Other Registry Afluria Qd administered Note: M [facility] bi-directional interface ; Source: Other Registry Novel [id number], all formulations administered Note: [facility] bi-direct ional interface ; Source: Other Registry Pneumovax 23 administered Note: [facility] bi-d irectional interface ; Source: Other Registry Payers Payer name Insurance type Covered green party ID Authoriza tion(s) Medicare NGS MB [id number] [employer] Of [facility] [id number] Social History Type Description Quantity Date Captured Comments Alcohol Use Details Unknown Caffeine Use Details Unknown Tobacco Use Status No Information Smoking Status No Information Sex Female Chief Complaint And Reason For Visit No Information Reason For Referral Reason For Referral No Information Plan Of Treatment Date Type Action Status Referral Ordered: Parathyroid Hormone (PTH), Intact Appointment date/timeframe: 01/18/2023 ordered Referral Ordered: Colonoscopy Appointment date/timeframe: 01/12/2023 ordered Referral Ordered: EGD Appointment date/timeframe: 01/12/2023 ordered Referral Ordered: Xray Abdomen Complete Appointment date/timeframe: 01/12/2023 ordered History Of Present Illness Encounter Date Complaint History Of Prese nt Illness GI Symptoms or Concerns GI Symptoms or Concerns GI Symptoms or Concerns GI Symptoms or Concerns This is a 67-year-old female with multiple medical issues, who was referred for consultation by Dr. Dalton Esqueda for abdominal pain, other GI issues. The patient has a history of lupus, Sjogren's, hypertension, hyperlipidemia, hysterectomy, postherpetic neuralgia, obstructive sleep apnea, DJD, history of basal cell cancer, generalized anxiety disorder, lichen planus, hypothyroidism, history of colon polyps, fibromyalgia, gastritis due to NSAIDs. There are 70 pages of medical records that are received and reviewed. The patient had a more significant episode of abdominal pain associated nausea and vomiting, went to the emergency room on November 30 and I have records from that visit. CT scan of the abdomen and pelvis was done at that time, which showed a thickened gastric antrum, the rest of exam was unremarkable. Laboratories including CMP, lipase, urinalysis were unremarkable, except the sodium low at 129, potassium low at 3.3. C-reactive protein slightly elevated at 1.9. Da Functional Status Date Functional Assessmen t No Information Instructions Date Instruction Additional Infor mation Colon Cancer Prevention Related to Colorectal polyps Colon Polyps Related to Color ectal polyps High Fiber Diet Related to Color ectal polyps Hemorrhoids (Internal) Related t o Colorectal polyps Assessments Type Assessment Date No Information Patient Care Teams Name Effective Dates (start - stop) Status Members No Information
--- OUTSIDE RECORDS SUMMARY | 2023-10-18 19:43 | XMS_ITS | Continuity of Care Document ---
Author Organization [facility] Address [address] [place] [address] Phone Care Team Providers Care Blueprint Trimmer Name Role Phone Lemuel Huang MD Unavailable Unavailab le Allergies, Adverse Reactions, Alerts Substance Reaction Status Criticality diltiazem Unknown Active No Information hydralazine Unknown Active No Information duloxetine Unknown Active No Information hydrochlorothiazide Unknown Active No Infor mation Jebpwhy-RGT-WpL Reductase Inhibitors Unknown Acti ve No Information [...] Visit,Est, Mod [facility], [address], [place], [id number], [place] tel:[phone] [facility] Spinal stenosis, lumbar region with neurogenic claudication Reina guzmán [facility], [address], [address], [place], [place], [id number], [place]. tel:[phone] Referring Provider: Mauricio Weston, [address], [address]. tel:[phone] Office/Outpat ient Visit,New, Mod [facility], [address], [place], [place], [id number], [place] tel:[phone] [facility] Spondylolisthe sis, lumbosacral regionSpinal stenosis, lumbosacral region Kalen Mishra. [facility], [address] [place] [address] [address], [place], [place], [id number], [place]. tel:[phone] Referring Provider: Mauricio Weston, [employer] [address], [address]. tel:[phone] Family History Family Member Type Diagnosis Age At Onset No Information Payers Payer name Insurance type Covered alliance party ID Authorkatyaa tipaula(s) BCBS [id number] [facility] [id number] Social History Type Description Quantity Date Captured [...] Action Status Future Order: Radiology Order AP -Lrs-Ezrt-Fhj Lum (APLatFlExL), Ordered on: Ordered History Of Present Illness Encounter Date Complaint History Of Prese nt Illness No Information Functional Status Date Functional Assessmen t No Information Instructions Date Instruction Additional Infor mation No Information Assessments Type Assessment Date No Information Patient Care Teams Name Effective Dates (start - stop) Status Members No Information
--- OUTSIDE RECORDS SUMMARY | 2023-10-18 19:43 | XMS_ITS | Clinical Summary ---
Author Organization [facility] Address [place], [place] [address] Care Team Providers Care External Grinder Tender Name Role Phone Theresa Vázquez PhD, Unavailable [phone] Abhinav Miranda MD Unavailable [facility], [facility] Unavailable [phone] Rambo Cordova MD Unavailable [phone] Abhinav Miranda MD Unavailable Dalton Esqueda MD Primary Care Provider + [...] had adverse reactions previously Hydroxychloroquine Anxiety 08/23/2011 Comzwhe-Moz-Uwk Reductase Inhibitors Myalgia 04/01/2015 Sulfasalazine Rash 05/17/2019 [...] once daily. 90 Tablet 3 3 Active alirocumab (Praluent Pen) 75 mg/mL pnijIndications:Hyp erlipidemia, unspecified hyperlipidemia type Inject 75 mg subcutaneous every 2 weeks. 6 mL 3 3 Active medication order composerIndications :Sjogren's syndrome, with unspecified organ involvement (HC) naltrexone 5.5 mg caps, one cap qhs 100 Capsule 3 4 Active medication order composerIndications :Sjogren's syndrome, with unspecified organ involvement (HC) naltrexone 5.5 mg caps, one cap qhs 100 Capsule 2 3 10/17/19 24 Discontinu ed(Reorder (E-cancel not sent)) Active Problems Problem Noted Date Diagnosed Date [...] carotid artery 03/01/2017 Controlled substance agreement with [facility] 12/21/19 17 Chronic SI joint pain 12/20/2016 [...] Encounters Date Type Department Care Team Description 10/17/2023 Refill [facility] [address] [place] [address] Carlo Ayala MD Refill Request (naltrexone) 09/08/2023 9:45 AM CDT Telemedicine [facility] [address] [place] [address] Theresa Vázquez, PhD, LP Trmt Plan 09/08/2023 Travel 09/06/2023 Telephone [facility] [address] [facility] [address] [place] [address] Eugene Araya MD Follow Up 08/15/2023 11:20 AM CDT Telemedicine [facility] [address] [place] [phone] Grayson Nelson MD Follow Up; Telehealth 08/15/2023 9:00 AM CDT Telemedicine [facility] [address] [place] [address] Theresa Vázquez, PhD, LP Individual Therapy 08/15/2023 Travel 08/01/2023 11:20 AM CDT Telemedicine [address] [address] Grayson Nelson MD Follow Up; Telehealth 08/01/2023 Travel 07/25/2023 12:20 PM CDT Orders Only [facility] [address] [place] [address] Lab, [facility] 07/25/2023 Travel from Last 3 Months Immunizations Name [...] Outcome GA Total Labor Labor/2nd/3rd Weight Sex Type Anes PTL Brigitte A1 A5 Name Clin Para Last Filed Vital Signs Vital Sign [...] Team (Late st Contact Info) Description 10/20/2023 1:20 PM CDT Telemedicine [facility] [address] [place] [address] Grayson Nelson MD [address] [place] [address] 10/26/2023 8:30 AM CDT Appointment [facility] [address] [place] [address] 10/26/2023 9:15 AM CDT Appointment [facility] [address] [place] [address] 10/26/2023 10:00 AM CDT Appointment [facility] [address] [place] [address] 10/26/2023 11:15 AM CDT Office Visit [facility] [address] [place] [address] Ousmane Joseph MBBS [address] [place] [address] Health Maintenance Due Date Last Done Comments [...] 04/28/2021, 03/06/2015 Medical Devices Implanted Type Area Manager Registration Device Identifier Shelf Expiration Date Model / Serial / Lot Sut Goodell [id number] Bio Swivelock - [id number] Implanted:Qty: 4 on 04/12/2007 at [facility] Right: Shoulder [employer] AR-[id number] L# / / [id number] Fiberchain 7mm10 Loops - [id number] Implanted:Qty: 4 on 04/12/[address] [facility] Right: Shoulder [employer] AR-[id number]# / / Patch Vasc 0.8x8cm Biological Peripatch - [id number] Implanted:Qty: 1 on 08/26/2011 by Brain Nolasco MD at [facility] Right: Carotid Artery [employer] 08/25/2013 0.8P8# / / [id number] Graft Vasc 0.3x3in Hemashield Stra Fabric Knitted Dbl - [id number] Implanted:Qty: 1 on 03/01/2017 by Brain Quiroga MD at [facility] Left: Carotid Artery [employer] 06/22/2021 [id number]# / / [id number] Procedures Procedure Name Priority Date/Time Associated Diagnosis Comments SCAN CORRESP-DIAGNOSTICS 08/25/2023 3:10 PM CDT VITAMIN D 25 (DEFICIENCY) Routine 07/25/2023 10:37 AM CDT Vitamin D deficiency LIPID PANEL W REFLEX MEASURED LDL Routine 01/14/2022 7:58 AM CDT Pure hypercholesterolemia Dyslipidemia Statin intolerance ANTI HCV Today 04/28/2021 10:51 AM LIME TRIMMER Leukopenia, unspecified type COLONOSCOPY 10/02/2020 8:44 AM CDT XR DXA BONE DENSITY 2 SITES AXIAL Routine 02/22/2020 1:20 PM CDT Chronic midline low back pain with right-sided sciatica Fibromyalgia Mixed connective tissue disease (HC) Sjogren's syndrome with myopathy (HC) XR MAMMO BILAT SCREENING Routine 03/07/2019 3:23 PM LIME TRIMMER Visit for screening mammogram from Last 3 Months or Most Recently Relevant to Health Maintenance Results * SCAN CORRESP-DIAGNOSTICS (08/25/2023 3:10 PM CDT) Narrative 08/25/2023 3:10 PM CDT Ordered by an unspecified provider. Other Clinical Staff OTHER * VITAMIN D 25 (DEFICIENCY) (07/25/2023 10:37 AM CDT) Pathologist [facility] VITAMIN D TOTAL 73.6 20.0 - 80.0 ng/mL 07/25/2023 9:31 PM CDT [facility] Blood BLOOD SPECIMEN / Unknown Butterfly / Unknown 07/25/2023 10:37 AM CDT 07/25/2023 10:38 AM CDT Narrative [facility] - 07/25/2023 9:31 PM CDT ? Vitamin D Status Deficiency: ? <20 ng/mL Insufficiency: ?20-29 ng/mL Sufficiency: ?30-80 ng/mL Possible Toxicity: ??>80 ng/mL Based on [place] of [employer] recommendations Biotin supplements may cause clinically significant interference for this test assay. ??If interference is suspected, it is strongly recommended that biotin is discontinued for at least one week prior to retesting. Grayson Nelson MD SEND OUTS [facility] [address] [place] [address], * LIPID PANEL W REFLEX MEASURED LDL (01/14/2022 7:58 AM CDT) [facility] CHOLESTEROL,TOTAL 159 100 - 199 mg/dL 01/14/2022 9:36 AM [facility] TRIGLYCERIDES 130 <150 mg/dL 01/14/2022 9:36 AM [facility] HDL CHOLESTEROL 75 >40 mg/dL 9:36 AM [facility] NON-HDL CHOLESTEROL 84 <145 mg/dl 01/14/2022 9:36 AM [facility] CHOL/HDL RATIO 2.12 <4.50 01/14/2022 9:36 AM [facility] LDL CHOLESTEROL 58 <=130 mg/dL 01/14/2022 9:36 AM [facility] VLDL CHOLESTEROL 26 <=30 mg/dL 01/14/2022 9:36 AM [facility] PROVIDER ORDERED STATUS FASTING 01/14/2022 9:36 AM CDT [facility] Blood BLOOD SPECIMEN / Unknown Venipuncture / Unknown 01/14/2022 7:58 AM CDT 01/14/2022 8:18 AM CDT Yu Bradley NP CHEMISTRY [facility] [address] [place] [address] * ANTI HCV (04/28/2021 10:51 AM LIME TRIMMER) HEPATITIS C ANTIBODY Non-React epi Non-React epi 04/28/2021 4:25 PM LIME TRIMMER [facility] Comment:Antibodies to HCV no t detected; does not exclude the possibility of exposure to HCV. Blood BLOOD SPECIMEN / Unknown Venipuncture / Unknown 04/28/2021 10:51 AM LIME TRIMMER 04/28/2021 10:51 AM LIME TRIMMER Giselle Sheffield MD SEND OUTS Performing Organization Address City/[facility]/ZIP Co de Phone Number [facility] [address] [place] [address], * COLONOSCOPY (10/02/2020 8:44 AM CDT) 10/02/2020 8:44 AM CDT Narrative Transcriptions Daysi George DO - 10/06/2020 9:14 PM CDT Patient Name: Nicolle Covington Procedure Date: 10/02/2020 Gender: Female Date of : 1955 Admit Type: Ambulatory Procedure: Colonoscopy Proceduralist: Daysi George MD [facility] Indications/Pre-Op Diagnosis: High risk [...] Bone Den sitometry Narrative 02/25/2020 10:39 AM LIME TRIMMER Please see scanned document for results of this study. Mauricio Muñoz MD DEXA * XR MAMMO BILAT SCREENING (03/07/2019 3:23 PM LIME TRIMMER) Anatomical Region Laterality Modality BREASTS, Breast Left, Breast Right Bilateral Mammography Impressions 03/08/2019 6:55 AM LIME TRIMMER ??There is no radiographic evidence for malignancy. ??Recommend annual mammograms. A lay language report of this examination will be provided to the patient. MAMMOGRAM ASSESSMENT: ??ACR 1 Negative Narrative 03/08/2019 6:55 AM LIME TRIMMER XR MAMMO BILAT SCREENING [[id number]] CLINICAL HISTORY: ??This is an asymptomatic 63 y.o. patient. INDICATION FOR EXAM: Mammogram Screening. TECHNIQUE: CC & MLO views were obtained. ??This digital study was evaluated with the assistance of Computer-Aided Detection. COMPARISON FILM: Yes 02/24/18 [facility] FINDINGS: ??Mammographically, the breast tissue is almost entirely fat. ?? There are no dominant masses, suspicious micro calcifications or areas of architectural distortion. 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
== END 2023-10-18 19:41 | disposition home or self-care (01) ==
LOC: NFLDUCREF 19:41
PROVIDERS: PCP Family Medicine; Visit Provider Nurse Practitioner Family
DX: B99.9 Unspecified infectious disease (principal)
CPT/HCPCS: 87070

== ENCOUNTER 2023-12-12 20:23 | Outpatient (CLI) | payer MEDICARE, BC, SELFPAY ==
--- OUTSIDE RECORDS SUMMARY | 2023-12-12 20:26 | XMS_ITS | Encounter Summary ---
Author Organization [facility] Address [address] [place] [address] Care Team Providers Care Mirror Inspector Name Role Phone Dalton Esqueda MD Primary Care Provider [phone] Reason for Visit * Reason Comments Post-Op Problem BLOOD PRESSURE, HIGH Encounter Details Date Type Department Care Team (Late st Contact Info) Description 11/15/2023 Nurse Triage Careline [address] [place], [place] [id number] Unknown, Physician [address] [place] [address] Post-Op Problem; BLOOD PRESSURE, HIGH Social History Tobacco Use Types Packs/Day Years Used Date Smoking Tobacco: Former Cigarettes Smokeless Tobacco: Never Alcohol Use Standard Drinks/Week Comments Not Currently 0 (1 standard drink = 0.6 oz pur e alcohol) [facility] Utilities Answer Date Recorded In the past 12 months has [facility] [employer], gas, oil, or water [employer] threatened to shut off services in your home? No 11/08/2023 Humiliation, Afraid, Rape, and Kick questionnair e Answer Date Recorded Fear of Current or Ex-Partner Not on file Within the last year, have y ou been humiliated or emotionally abused in other ways by your partner or ex-partner? No 11/08/2023 Within the last year, have y ou been kicked, hit, slapped, or otherwise physically hurt by your partner or ex-partner? No 11/08/2023 Within the last year, have y ou been raped or forced to have any kind of sexual activity by your partner or ex-partner? No 11/08/2023 Hunger Vital Sign Answer Date Recorded Within the past 12 months, y ou worried that your food would run out before you got the money to buy more. Never true 11/08/19 24 Within the past 12 months, t he food you bought just didn't last and you didn't have money to get more. Never true 11/08/2023 PRAPARE - Transportation Answer Date Re corded In the past 12 months, has l ack of transportation kept you from medical appointments or from getting medications? No 10/23 In the past 12 months, has l ack of transportation kept you from meetings, work, or from getting things needed for daily living? No 11/08/2023 Housing Stability Vital Sign Answer Good e Recorded In the last 12 months, was t here a time when you were not able to pay the mortgage or rent on time? No 11/08/2023 Number of Places Lived in the Last Year Not on f ile 11/08/2023 In the last 12 months, was t here a time when you did not have a steady place to sleep or slept in a custodial (including now)? No 11/08/2023 Sex and Gender Information Value Date Recorded Sex Assigned at Not on file Gender Identity Not on file Sexual Orientation Not on file documented as of this encounter Nursing Notes * Odette Baptiste RN - 11/15/2023 7:09 PM CDT Verified patient identity: Yes Speaking with patient Situation/Background (brief explanation of current symptoms/situation): Patient states that she was at [facility] last week for uncontrolled HTN. She had a pacemaker placedon Friday 11/10. She went to the store today and was more active today than previous days after her hospitalization. She checked her BP as she checks this twice per day. It is slowly climbing again and it is now 205/94. She denies confusion, slurred speech or chest pain. She denies vision changes or unsteady walking, numbness or weakness. She states she can tell when her BP is elevated as she gets headaches. She hasa current headache that is moderate in intensity. She feels flushed. She has tolerable pain at her incision site. This is healing. She has no signs of infection at the site. Patient checks her BP daily. Recent Bps 118/62, 128/67 158/78, 168/66, 159/75, 154/70, 170/79, 205/94. Her BP was frequently above 200 prior to her pacemaker. She is wondering why her BP is going back up. Reviewed with patient pertinent medical history (as it related to the call): Yes Wilfredo Howell- Cardiology. Reviewed with patient pertinent medications (as they relate to call): Yes Cozaar daily in the morning Aldactone daily in the morning Coreg twice a day Medications were changed this week. Reviewed with patient pertinent allergies (as they relate to call): N/A Reason for Disposition [1] Systolic BP >= 200 OR Diastolic >= 120 AND [2] having NO cardiac or neurologic symptoms Protocols used: Blood Pressure - [id number] Plan: MD Consult, Vinay Lindsay Paged at 7:28 PM Page returned at 7:30 PM Assessment shared, orders are: 1) Go to ER now for evaluation 2) Contact provider in morning to discuss medicaitons. Telephone Orders Read Back to provider. 7:36 PM - Returned call to pt. Shared orders from on-call MD. Pt disagrees with plan. She plans to wait this out. If her BP stays elevated, she might go in for evaluation. I want you to understand that you could be experiencing a harmful medical condition for which doctor's office is not a safe place for your symptoms. Any delay in your care such as waiting for an appointment or being seen in the wrong place could be harmful to your health. You do not have to follow my recommendation but I need to make sure you understand. Do you understand? Yes. No further questions. Advised patient/caller to call back CareLine if there are further questions or concerns or to be seen if situation becomes emergent. The CareLine is available 15/11. Odette Cisneros RN CareLine 7:38 PM 11/15/2023 * Anisha Velásquez - 11/15/2023 7:08 PM CDT Verified patient using 3 identifiers: Yes Caller reports the following red flag symptoms: pt states that [facility] now her blood pressure getting higher and higher. Pt states he last reading is 205/94 Plan: Transferred directly to a CareLine RN. documented in this encounter Plan of Treatment Upcoming Encounters Date Type Department Care Team (Late st Contact Info) Description 12/15/2023 12:40 PM CDT Appointment [facility] [place] [address] Cardiology [address] [place] [phone] Rosa Elena Huynh PA-C [address] [place], [place] [address] 12/22/2023 10:45 AM CDT Appointment [facility] [address] [place], [place] [address] Desilet, Luke W, DO [address] [place] [address] 01/06/2024 1:30 PM CDT Appointment [facility] [place] [address] Cardiology [address] [place] [phone] Wilfredo Howell III, MD [address] [place] [address] 01/24/2024 9:00 AM CDT Appointment [facility] [place] [address] Electrophysiology [address] [place] [phone] documented as of this encounter Visit Diagnoses Not on filedocumented in this encounter Care Teams Mirror Inspector Relationship Specialty Start Date End Date Dalton Esqueda MD [address] [place] [address] PCP - General Family Practice 06/23/23 documented as of this encounter
--- OUTSIDE RECORDS SUMMARY | 2023-12-12 20:26 | XMS_ITS | Encounter Summary ---
Author Organization [employer] Address [address] [place] [address] Care Team Providers Care Legal Arbitrator Name Role Phone Dalton Esqueda MD Primary Care Provider [phone] Reason for Referral * (Routine) - New Request Specialty Diagnoses / Procedures Referred By Contac t Referred To Contact Diagnoses SSS (sick sinus syndrome) (HRC) Cardiac pacemaker in situ Procedures Pacemaker Evaluation James Tejada MD [address] [place] [address] Referral ID Status Reason Start Date Expiration Date V isits Requested Visits Authorized [id number] New Request 11/22/2023 02/20/2025 1 1 Reason for Visit * Reason Comments Device Check Encounter Details Date Type Department Care Team (Late st Contact Info) Description 11/22/2023 8:45 AM CDT [facility] [place] [address] SSS (sick sinus syndrome) (HRC) (Primary Dx); Cardiac pacemaker in situ Social History Tobacco Use Types Packs/Day Years Used Date Smoking Tobacco: Former Cigarettes Smokeless Tobacco: Never Alcohol Use Standard Drinks/Week Comments Not Currently 0 (1 standard drink = 0.6 oz pur e alcohol) [facility] Utilities Answer Date Recorded In the past 12 months has [employer], gas, oil, or water company threatened to shut off services in your [...] place to sleep or slept in a senior living (including now)? No 11/08/2023 Sex and Gender Information Value Date Recorded Sex Assigned at Not on file Gender Identity Not on file Sexual Orientation Not on file documented as of this encounter Plan of Treatment Upcoming Encounters Date Type Department Care Team (Late st Contact Info) Description 12/15/2023 12:40 PM CDT Appointment [facility] [address] Cardiology [address] [place] [address] Rosa Elena Huynh PA-C [address] [place] [address] 12/22/2023 10:45 AM CDT Appointment [facility] [address] [place] [address] Desilet, Freeman W, DO [address] [place], [place] [address] 01/06/2024 1:30 PM CDT Appointment [facility] [place] [address] Cardiology [address] [place] [address] Wilfredo Howell III, MD [address] [place] [address] 01/24/2024 9:00 AM CDT Appointment [facility] [place] [address] Electrophysiology [address] [place] [phone] Pending Results Name Type Priority Associated Diagnoses Date /Time Pacemaker Evaluation Electrophysiology Routine SSS (sick sinus syndrome) (HRC) Cardiac pacemaker in situ 11/22/2023 8:55 AM CDT documented as of this encounter Procedures Procedure Name Priority Date/Time Associated Diagnosis Comments PACEMAKER EVALUATION Routine 11/22/2023 8:55 AM C DT SSS (sick sinus syndrome) (HRC) Cardiac pacemaker in situ documented in this encounter Visit Diagnoses Diagnosis SSS (sick sinus syndrome) (HRC)- Primary Sinoatrial node dysfunction Cardiac pacemaker in situ documented in this encounter Care Teams Legal Arbitrator Relationship Specialty Start Date End Date Dalton Esqueda MD [address] [place] [address] PCP - General Family Practice 06/23/23 documented as of this encounter
--- OUTSIDE RECORDS SUMMARY | 2023-12-12 20:26 | XMS_ITS | Encounter Summary ---
Author Organization [email or web address] Address [address] [place] [address] Care Team Providers Care Business Office Specialist Name Role Phone Dalton Esqueda MD Primary Care Provider [phone] Encounter Details Date Type Department Care Team (Latest Contact Info) Description 11/08/2023 Orders Only HIM DEPARTMENT Provider, [place] [address] Social History Tobacco Use Types Packs/Day Years Used Date Smoking Tobacco: Former Cigarettes Smokeless Tobacco: Never Alcohol Use Standard Drinks/Week Comments Not Currently 0 (1 standard drink = 0.6 oz pur e alcohol) [facility] Utilities Answer Date Recorded In the past 12 months has e electric, gas, oil, or water [employer] threatened to shut off services in your [...] place to sleep or slept in a mcfp (including now)? No 11/08/2023 Sex and Gender Information Value Date Recorded Sex Assigned at Not on file Gender Identity Not on file Sexual Orientation Not on file documented as of this encounter Plan of Treatment Upcoming Encounters Date Type Department Care Team (Late st Contact Info) Description 12/15/2023 12:40 PM CDT Appointment [place] [facility] [place] [address] Cardiology [address] [place] [phone] Rosa Elena Huynh PA-C [address] [place], [place] [address] 12/22/2023 10:45 AM CDT Appointment [facility] [address] [place] [address] Desilet, Luke W, DO [address] [place], [place] [address] 01/06/2024 1:30 PM CDT Appointment [place] [facility] [place] [address] Cardiology [address] [place] [phone] Wilfredo Howell III, MD [address] [place], [place] [address] 01/24/2024 9:00 AM CDT Appointment [place] [facility] [place] [address] Electrophysiology [address] [place] [address] documented as of this encounter Procedures Procedure Name Priority Date/Time Associated Diagnosis Comments PROCEDURE IP 11/08/2023 documented in this encounter Results * PROCEDURE IP (11/08/2023) Anatomical Region Laterality Modality Other Interface Provider MD DUMMY/OTHER/AR documented in this encounter Visit Diagnoses Not on filedocumented in this encounter Care Teams Business Office Specialist Relationship Specialty Start Date End Date Dalton Esqueda MD [address] [place] [address] PCP - General Family Practice 06/23/23 documented as of this encounter
--- OUTSIDE RECORDS SUMMARY | 2023-12-12 20:26 | XMS_ITS | Encounter Summary ---
Author Organization [employer] Address [address] [place] [address] Care Team Providers Care Client Relations Specialist Name Role Phone Dalton Esqueda MD Primary Care Provider [phone] Reason for Referral * Medication Prior Authorization - Authorized Specialty Diagnoses / Procedures Referred By Jonathan t Referred To Contact Wilfredo Howell III, MD [address] [place] [address] Referral ID Status Reason Start Date Expiration Date V isits Requested Visits Authorized [id number] Authorized 12/07/2023 04/24/2024 1 1 Encounter Details Date Type Department Care Team (Late st Contact Info) Description 12/07/2023 [facility]ders [facility] [address] [place] [address]. [place], [place] [id number] Wilfredo Howell III, MD [address] [place], [place] [id number] Social History Tobacco Use Types Packs/Day Years Used Date Smoking Tobacco: Former Cigarettes Smokeless Tobacco: Never Alcohol Use Standard Drinks/Week Comments Not Currently 0 (1 standard drink = 0.6 oz pur e alcohol) [facility] Utilities Answer Date Recorded In the past 12 months has [employer] electric, gas, oil, or water company threatened [...] on file documented as of this encounter Progress Notes * Wilfredo Howell III, MD - 12/07/2023 3:37 PM CDT Blood pressures remain suboptimal, but are improved following implantation of pacemaker in October. Follow-up clinic appointment scheduled in December. Given continued elevated blood pressure and symptoms as described, would recommend moving appointment up to a date within the next 1-2 weeks. It is reasonable to continue Praluent for lipid management, refill sent to her pharmacy. documented in this encounter Plan of Treatment Upcoming Encounters Date Type Department Care Team (Late st Contact Info) Description 12/15/2023 12:40 PM CDT Appointment [facility] [address] Cardiology [address] [place] [phone] Rosa Elena Huynh PAReinaC [address] [place] [address] 12/22/2023 10:45 AM CDT Appointment [facility] [address] [place] [address] Desilet, Luke W, DO [address] [place] [address] 01/06/2024 1:30 PM CDT Appointment [facility] [address] Cardiology [address] [place] [phone] Wilfredo Howell III, MD [address] [place] [address] 01/24/2024 9:00 AM CDT Appointment [facility] [address] Electrophysiology [address] [place] [phone] documented as of this encounter Visit Diagnoses Not on filedocumented in this encounter Care Teams Client Relations Specialist Relationship Specialty Start Date End Date Dalton Esqueda MD [address] [place] [address] PCP - General Family Practice 06/23/23 documented as of this encounter
--- OUTSIDE RECORDS SUMMARY | 2023-12-12 20:26 | XMS_ITS | Encounter Summary ---
Author Organization [employer] Address [address] [place] [address] Care Team Providers Care Technical Sales Support Manager Name Role Phone Dalton Esqueda MD Primary Care Provider [phone] Reason for Visit * Reason Comments BLOOD PRESSURE, HIGH Encounter Details Date Type Department Care Team (Late st Contact Info) Description 11/02/2023 Telephone [facility] [address] [place], [place] [id number] Wilfredo Howell III, MD [address] [place] [address] BLOOD PRESSURE, HIGH Social History [...] Nursing Notes * Yanci Adkins RN - 11/03/2023 9:29 AM CDT Spoke to Richa; she will follow up as scheduled 11/07. * Yanci Adkins RN - 11/03/2023 9:27 AM CDT Images from the original note were not included. Wilfredo Howell III, MD to Me 11/03/23 7:46 AM Please use the [place] slot. November 02, 2023 Me to Wilfredo Howell III, MD KB 11/02/23 11:[address] Howell, see update from Richa. I can get her in to be seen in [place] next week and she is in agreement with this. Any other recommendations? * Yanci Adkins RN - 11/02/2023 11:19 AM CDT Voicemail received from Richa requesting a call back to discuss blood pressures. Called and spoke to Richa; she states that she is continuing to have high blood pressure readings. She states that the past three days her readings have been as follows: 171/67, 160/63 197/77, 167/70 208/81, 177/69 Tuesday she had low readings: 84/48, 102/48, 101/46. Denies taking any extra medications or being dehydrated. Heart rates 40s-50s. She did increase her carvedilol to 3.125 Q AM and 6.25 mg Q PM. She reports that she does feel dizzy with this increase and is very hesitant to increase dose further. She reports that she did restart her meloxicam as she could not tolerate her pain. She feels that her quality of life is suffering from her blood pressures issues and the meds. Last office visit with Dr. Howell 10/13/23: Impression and Plan: 1) HTN- significant elevation [...] Description 12/15/2023 12:40 PM CDT Appointment [facility] [place] [address] Cardiology [address] [place] [phone] Rosa Elena Huynh PA-C [address] [place] [address] 12/22/2023 10:45 AM CDT Appointment [place] [facility] [address] [place] [address] Desilet, Freeman W, DO [address] [place], [place] [address] 01/06/2024 1:30 PM CDT Appointment [facility] [place] [address] Cardiology [address] [place] [phone] Wilfredo Howell III, MD [address] [place] [address] 01/24/2024 9:00 AM CDT Appointment [facility] [place] [address] Electrophysiology [address] [place] [phone] documented as of this encounter Visit Diagnoses Not on filedocumented in this encounter Care Teams Technical Sales Support Manager Relationship Specialty Start Date End Date Dalton Esqueda MD [address] [place] [address] PCP - General Family Practice 06/23/23 documented as of this encounter
--- OUTSIDE RECORDS SUMMARY | 2023-12-12 20:26 | XMS_ITS | Encounter Summary ---
Author Organization [facility] Address [address] [place] [address] Care Team Providers Care Stamping Operator Name Role Phone Dalton Esqueda MD Primary Care Provider [phone] Encounter Details Date Type Department Care Team (Late st Contact Info) Description 11/17/2023 E-Visit [facility] [address] [place] [address] [facility], [place] [address] Social History Tobacco Use Types Packs/Day Years Used Date Smoking Tobacco: Former Cigarettes Smokeless Tobacco: Never Alcohol Use Standard Drinks/Week Comments Not Currently 0 (1 standard drink = 0.6 oz pur e alcohol) [facility] Utilities Answer Date Recorded In the past 12 months has e [employer], gas, oil, or water [employer] threatened to shut off services in your [...] 12/15/2023 12:40 PM CDT Appointment [facility] [place] [address] Cardiology [address] [place] [phone] Rosa Elena Huynh PA-C [address] [place], [place] [address] 12/22/2023 10:45 AM CDT Appointment [place] [facility] [address] [place] [address] Desilet, Freeman W, DO [address] [place], [place] [address] 01/06/2024 1:30 PM CDT Appointment [facility] [place] [address] Cardiology [address] [place] [phone] Wilfredo Howell III, MD [address] [place] [address] 01/24/2024 9:00 AM CDT Appointment [facility] [address] [facility] [address] [place] [phone] documented as of this encounter Visit Diagnoses Not on filedocumented in this encounter Care Teams Stamping Operator Relationship Specialty Start Date End Date Dalton Esqueda MD [address] [place] [address] PCP - General Family Practice 06/23/23 documented as of this encounter
--- OUTSIDE RECORDS SUMMARY | 2023-12-12 20:26 | XMS_ITS | Encounter Summary ---
Author Organization [facility] Address [address] [place] [address] Care Team Providers Care Frozen Food Department Manager Name Role Phone Dalton Canales MD Primary Care Provider Reason for Referral * Consult/Transfer Care (Routine) - New Request Specialty Diagnoses / Procedures Referred By Jonathan mora Referred To Contact Diagnoses Hypertensive emergency Gabbie Blackman MD [address] [place] [address] [facility] [address] [place] [address] Referral ID Status Reason Start Date Expiration Date V isits Requested Visits Authorized [id number] New Request 11/13/2023 02/11/2024 1 1 Scheduling Instructions Your clinician has recommended an appointment with [facility] Primary [facility] for your ongoing patient care. You can quickly make your appointment online at [email or web address]. You can also call [phone] for help scheduling your appointment. We suggest you call your health insurance [employer] about your coverage and benefits for this appointment. Question Answer What type of follow up? IP Discharge Appointment Urgency? Non-Urgent Comments Primary Care Provider: Dalton Canales MD * (Routine) - New Request Specialty Diagnoses / Procedures Referred By Contac t Referred To Contact Procedures Physical Therapy Eval and Treat Stefanie Perez MD [address] [place] [address] Referral ID Status Reason Start Date Expiration Date V isits Requested Visits Authorized [id number] New Request 11/11/2023 02/09/2025 1 1 * Procedure/Equipment (Routine) - Incomplete Specialty Diagnoses / Procedures Referred By Contac t Referred To Contact Procedures XR Chest 2 Views Gilbert Grey MD [address] [place] [address] Referral ID Status Reason Start Date Expiration Date V isits Requested Visits Authorized [id number] Incomplete 11/11/2023 02/09/2025 1 1 * (Routine) - Incomplete Specialty Diagnoses / Procedures Referred By Contac t Referred To Contact Procedures ECG 12 Lead Inpatient, On post-op day #1 Gilbert Grey MD [address] [place] [address] Referral ID Status Reason Start Date Expiration Date V isits Requested Visits Authorized [id number] Incomplete 11/11/2023 02/09/2025 1 1 * (Routine) - Incomplete Specialty Diagnoses / Procedures Referred By Contac t Referred To Contact Procedures ECG 12 Lead Inpatient Now Gilbert Grey MD [address] [place] [address] Referral ID Status Reason Start Date Expiration Date V isits Requested Visits Authorized [id number] Incomplete 11/11/2023 02/09/2025 1 1 * (Routine) - New Request Specialty Diagnoses / Procedures Referred By Contac t Referred To Contact Procedures Permanent Pacemaker Implantation (Inpatient) Sharona White, DISHCLOTH FOLDER, PARI M[employer]UAL TICKET CHECKER [address] [place] [address] Referral ID Status Reason Start Date Expiration Date V isits Requested Visits Authorized [id number] New Request 11/10/2023 02/08/2025 1 1 * (Routine) - Incomplete Specialty Diagnoses / Procedures Referred By Contac t Referred To Contact Procedures STAT ECG 12 Lead Inpatient Stefanie Perez MD [address] [place] [address] Referral ID Status Reason Start Date Expiration Date V isits Requested Visits Authorized [id number] Incomplete 11/10/2023 02/08/2025 1 1 * Consult/Transfer Care (Routine) - New Request Specialty Diagnoses / Procedures Referred By Contac t Referred To Contact Neurology Diagnoses Brain aneurysm Lemuel Moses DO [facility] [place] [address] [id number] [place] [address] Referral ID Status Reason Start Date Expiration Date V isits Requested Visits Authorized [id number] New Request 11/10/2023 02/08/2025 1 1 Scheduling Instructions Your clinician has recommended an appointment with [facility]. You may call [phone] to schedule your appointment. We suggest you call your health insurance company about your coverage and benefits for this appointment. Question Answer Appointment Urgency? Non-Urgent Reason for visit? follow up 7mm R MCA aneursym Outpatient Appt Need? Hospital Follow up Comments Seen Dr Kessler >3 yrs ago * Procedure/Equipment (Routine) - New Request Specialty Diagnoses / Procedures Referred By Contac t Referred To Contact Procedures GXT Stress Test Wilfredo Howell III, MD [address] [place] [address] Referral ID Status Reason Start Date Expiration Date V isits Requested Visits Authorized [id number] New Request 11/10/2023 02/08/2025 1 1 * Procedure/Equipment (Routine) - New Request Specialty Diagnoses / Procedures Referred By Contac t Referred To Contact Procedures Echocardiogram Crow Howell PA-C [address] [place] [address] Referral ID Status Reason Start Date Expiration Date V isits Requested Visits Authorized [id number] New Request 11/08/2023 02/06/2025 1 1 * (Routine) - Incomplete Specialty Diagnoses / Procedures Referred By Contac t Referred To Contact Procedures ECG 12 Lead Inpatient Crow Howell PA-C [address] [place] [address] Referral ID Status Reason Start Date Expiration Date V isits Requested Visits Authorized [id number] Incomplete 11/08/2023 02/06/2025 1 1 * Procedure/Equipment (Routine) - Incomplete Specialty Diagnoses / Procedures Referred By Contac t Referred To Contact Procedures XR Portable Chest 1 View Crow Howell PA-C [address] [place] [address] Referral ID Status Reason Start Date Expiration Date V isits Requested Visits Authorized [id number] Incomplete 11/08/2023 02/06/2025 1 1 * Procedure/Equipment (Routine) - Incomplete Specialty Diagnoses / Procedures Referred By Contac t Referred To Contact Procedures CT Angio Neck Head W IV Cont Kayla Vázquez, DO [address] [place] [address] Referral ID Status Reason Start Date Expiration Date V isits Requested Visits Authorized [id number] Incomplete 11/08/2023 02/06/2025 1 1 * Procedure/Equipment (Routine) - Incomplete Specialty Diagnoses / Procedures Referred By Contac t Referred To Contact Procedures CT Head WO IV Kayla Saravia DO [address] [place] [address] Referral ID Status Reason Start Date Expiration Date V isits Requested Visits Authorized [id number] Incomplete 11/08/2023 02/06/2025 1 1 * (Routine) - Incomplete Specialty Diagnoses / Procedures Referred By Contac t Referred To Contact Procedures ECG 12 Lead Jenaro Robles MD [address] [place] [address] Referral ID Status Reason Start Date Expiration Date V isits Requested Visits Authorized [id number] Incomplete 11/08/2023 02/06/2025 1 1 Reason for Visit * Reason Comments HYPERTENSION * Auth/Cert (Routine) Specialty Diagnoses / Procedures Referred By Contac t Referred To Contact Diagnoses Cerebral aneurysm without rupture Hypertensive emergency Acute nonintractable headache, unspecified headache type Htn emergency Hypertensive emergency Cerebral aneurysm without rupture Acute nonintractable headache, unspecified headache type Referral ID Status Reason Start Date Expiration Date Visits Re quested Visits Authorized [id number] 1 1 Encounter Details Date Type Department Care Team (Late st Contact Info) Description 11/08/2023 12:45 PM CDT - 11/13/2023 11:30 AM CDT Hospital Encounter [facility] [address] [facility] [place] [address] Kyala Vázquez, DO [address] [place] [address] [phone] Christian Carter MD [address] [place], [place] [id number] Crow Howell, PAReinaC [address] [place] [id number] Filomena Lopes DO [address] [place], [place] [address] Stefanie Perez MD [address] [place], [place] [id number] Gabbie Blackman MD [address] [place] [address] [phone] Chronic pain syndrome (Primary Dx); Hypertensive emergency; Cerebral aneurysm without rupture; Acute nonintractable headache, unspecified headache type; Brain aneurysm Discharge Disposition: Home Social History Tobacco Use Types Packs/Day Years Used Date Smoking Tobacco: Former Cigarettes Smokeless Tobacco: Never Alcohol Use Standard Drinks/Week Comments Not Currently 0 (1 standard drink = 0.6 oz pur e alcohol) [facility] Utilities Answer Date Recorded In the past 12 months has [employer], oil, or water [employer] threatened to shut off services in your [...] place to sleep or slept in a halfway (including now)? No 11/08/2023 Sex and Gender Information Value Date Recorded Sex Assigned at Not on file Gender Identity Not on file Sexual Orientation Not on file documented as of this encounter Last Filed Vital Signs Vital Sign Reading Time Taken Comments Blood Pressure 140/69 11/13/2023 6:08 AM CDT Pulse 60 11/13/2023 9:00 AM CDT Temperature 36.6 ??C (97.9 ??F) 11/13/2023 9:00 AM CD T Respiratory Rate 15 11/13/2023 9:00 AM CDT Oxygen Saturation 96% 11/12/2023 6:00 AM CDT Inhaled Oxygen Concentration - - Weight 57.3 kg (126 lb 5.2 oz) 11/12/2023 8:00 P M CDT Height - - Body Mass Index 21.02 10/13/2023 3:32 PM CDT documented in this encounter Discharge Summaries * Gabbie Blackman MD - 11/13/2023 10:20 AM CDT Images from the original note were not included. INTERNAL MEDICINE HOSPITALIST DISCHARGE NOTE Date Of Service:11/13/2023 NAME: Nicolle Covington : 1955 Primary care physician: Dalton Canales MD Date of Admission: 11/08/2023 12:45 PM Date of Discharge: 11/13/2023 Principle Discharge Diagnosis Hypertensive urgency Sick sinus symdrome s/p pacemaker placement Other Medical History No past medical history on file. Recommedation to Primary Team: Medication Changes: Coreg dose increased 6.25bid Post hospital dischage f/u mechanical integrity engineer 5-7days Electrophysiology Cardilogy cardiology No Pending labs Hospital Stay Details Please see the admission history and physical and hospital consult notes for full details. Assessment and Plan during course of stay in Hospital 68-year-old with past medical history of uncontrolled hypertension due to intolerance to many medications peripheral arterial disease, cerebral aneurysm, fibromyalgia, lupus, tobacco use, recently quit, sensorineural hearing loss, chronic pain used to be on fentanyl currently on medical marijuana, generalized anxiety disorder, obstructive sleep apnea, was admitted for hypertensive urgency/emergency, blood pressure was controlled with nifedipine drip Hypertensive urgency/emergency Was admitted & started on Nicardipine drip now on oral medication and blood pressure wnl History of intolerance to several medication atenolol, metoprolol, diltiazem, amlodipine, hydrochlorothiazide, hydralazine Was on coreg which she has has tolerated well Started on Coreg 6.25 b.i.d., so far tolerated Continue losartan 100 mg daily Continue Aldactone 25 mg daily Follow-up with Cardiology post discharge Daily blood pressure monitoring at home stressed Sick sinus syndrome Severe resting bradycardia resolved With nadolol blood heart rate dropped into 40s was taken off beta-blockers watched for 36 hours without any improvement in the heart rate, seen by Cardiology EP, GXT stress test performed with poor heart rate variability, 40-80, at rest to exertion Pacemaker placed EP cardiology follow-up post discharge Peripheral arterial disease Bilateral iliac stenting/bilateral carotid endarterectomy 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 Continue Plaquenil 200 q.d. Continue prednisone 7.5 daily Continue pilocarpine 5 mg TID ? Mercaptopurine on list Chronic steroid use Patient has been on chronic steroids for SLE At risk for iatrogenic adrenal insufficiency during stressful situations at any point if undergoing any stress of surgery or illness will need stress steroids if ever hypotensive with no clear reasons or nausea vomitting should be given stress steroids GERD Chronic stable issue, continue PPI Hyperlipidemia This is chronic stable condition continue Zetia-Crestor She is also on Praluent Chronic pain syndrome Chronic stable medical issue baseline home regimen of pain medications include medical marijuana, naltrexone OR Mobic, Ativan History of cerebral aneurysm, 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 Blood pressure control stressed Prior Living Situation: Patient lives in [place], she is alone, her daughter of addiction, her granddaughter lives close by who comes to help patient Patient had past history of chronic pain disorder for which she was under care of pain Clinic, she used to be on fentanyl, has been weaned off, currently on medical marijuana Objective Temp: 36.6 ??C (97.9 ??F) BP: (!) 140/69 Pulse: 63 Resp: 16 SpO2: 96 % Temp Min: 36.6 ??C (97.8 ??F) Max: 36.6 ??C (97.9 ??F) BP Min: 131/68 Max: 193/78 Pulse Min: 60 Max: 66 Resp Min: 10 Max: 18 No data recorded Admit weight: Weight: 56.6 kg (124 lb 12.5 oz) Current weight:Weight: 57.3 kg (126 lb 5.2 oz) I&O LAST 24 hours: Intake/Output Summary (Last 24 hours) at 11/13/2023 1023 Last data filed at 11/12/2023 1500 Gross per 24 hour Intake 830 ml Output -- Net 830 ml Pertinent Positive on exam: Mild pallor Disheveled appearance No carotid bruit Clear lungs Looks comfortable, is alert & orientedx3,normal higher function No apparent respiratory or cardiac distress, looks comfortable Gen: moist mucus membrane, no LNpathy Lungs: CTA Bilaterally Cor: RRR nl s1s2, no murmur, no rub, no gallop Abd: +BS, non tender, non distended, no rebound or guarding Ext: no clubbing, cyanosis, or edema RATE REVIEWER: no FND Labs & Imaging during course of stay in Hospital Images this admission XR Portable Chest 1 View Result Date: 11/08/2023 COMPARISON: None. FINDINGS: Normal cardiomediastinal silhouette and pulmonary vasculature. Lungs appear clear. No pneumothorax or pleural effusion. Surgical clips in the right neck. CT Angio Neck Head W IV Cont Result Date: 11/08/2023 INDICATION: sams, htn, known aneurysms TECHNIQUE: CT angiogram of the [place] of [place] and CT angiogram of the neck with IV contrast with 2D and 3D reformatting, 100 mL IOHEXOL 350 MG/ML IV SOLN. COMPARISON: Prior comparison CT angiographic images from 11/14/2021 are not available. 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 FINDINGS: CTA HEAD: Distal internal carotid arteries: Patent and nonstenotic. Anterior cerebral arteries: Patent and nonstenotic. Middle cerebral arteries: Patent and nonstenotic. Lobulated saccular aneurysm involving the right middle cerebral artery bifurcation directed anteriorly and inferiorly measuring 7.4 mm AP by 5.8 mm transverse by 9.3 mm craniocaudal dimension utilizing axial and coronal MPR images. 3 x 3 mm daughter aneurysm projecting from the inferior aspect of the main aneurysm. Aneurysm measurements car inclusive of the daughter aneurysm. Please see Lucas images. Posterior ce rebral arteries: Patent and nonstenotic. Vertebrobasilar system: Patent and nonstenotic. 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 Please see Lucas images. IMPRESSION: 1. No evidence for large vessel occlusion or severe stenosis of the majorintracranial arterial vasculature. 2. No evidence for intracranial stenosis or enhancing intracranial lesions. 3. 7.4 x 5.8 x 9.3 mm lobulated saccular aneurysm involving right middle cerebral arterybifurcation directed anteriorly and inferiorly. 4. 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 CTA NECK: Right neck: Right carotid system patent and nonstenotic. Severe short segment stenosis of the right vertebral artery origin secondary to calcified atherosclerotic plaque. Moderate to severe short segment stenosis of the distal cervical right vertebral artery at the C3-4 level. Left neck: 25% short segment stenosis of the proximal left internal carotid artery. Remainder of left carotid system otherwise patent and nonstenotic. Possible segmental occlusions of the thoracic, proximal and mid cervical left vertebral artery with severe narrowing of the patent segments. Reconstitution of flow within theleft vertebral artery at the C3-4 level which demonstrates a moderate to severe short segment stenosis at the C2-3 level. Arch: 20% short segment stenosis of the proximal and distal left subclavian artery. Aortic arch and remainder visualized arterial brachiocephalic vessels otherwise appear unremar kable. IMPRESSION: 1. Right carotid system patent and nonstenotic. 25% short segment stenosis of the proximal left internal carotid artery. Remainder of left carotid system otherwise patent and nonstenotic. 2. Severe short segment stenosis of the right vertebral artery origin. Moderate to severe short segment stenosis of the distal cervical right vertebral artery at the C3-4 level. 3. 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 Reconstitution of flow within the left vertebral artery at the C3-4 level. 4. Severe neural foraminal stenosis at the C2-3 level and the C3-4 level on the right CT Head WO IV Cont Result Date: 11/08/2023 COMPARISON: None. TECHNIQUE: Images of the head were obtained without contrast. FINDINGS: The ventricles, sulci and cisterns are normal size and configuration. No evidence for intracranial mass, intracranial attenuation abnormality, acute intracranial hemorrhage or extra-axial fluid collection. Visualized paranasal sinuses and mastoid air cells are unopacified bilaterally. Partial visualization of bilateral uncinectomies and inferior ethmoidectomies. IMPRESSION: 1. Partial visualization of paranasal sinus postoperative changes. 2. Otherwise unremarkable unenhanced cranial CT examination. No evidence for acute intracranial hemorrhage. Significant Labs Sodium Date Value Ref Range Status 11/13/2023 138 136 - 145 mmol/L Final 11/12/2023 135 (L) 136 - 145 mmol/L Final 11/11/2023 135 (L) 136 - 145 mmol/L Final Creatinine Date Value Ref Range Status 11/13/2023 1.29 (H) 0.55 - 1.02 mg/dL Final 11/12/2023 1.07 (H) 0.55 - 1.02 mg/dL Final 11/11/2023 1.21 (H) 0.55 - 1.02 mg/dL Final Hemoglobin Date Value Ref Range Status 11/10/2023 12.0 12.0 - 15.5 g/dL Final 11/09/2023 12.0 12.0 - 15.5 g/dL Final 11/08/2023 13.1 12.0 - 15.5 g/dL Final WBC Date Value Ref Range Status 11/10/2023 5.8 3.5 - 10.5 x10(9)/L Final 11/09/2023 6.1 3.5 - 10.5 x10(9)/L Final 11/08/2023 7.8 3.5 - 10.5 x10(9)/L Final No results for input(s): WBC, HGB, PLTS, INR in the last 72 hours. Recent Labs 11/11/23 0448 11/12/23 0435 11/13/23 0443 SODIUM 135* 135* 138 K 3.8 4.7 4.5 CHLORIDE 106 108 110* BICARB 20 20 21 BUN 38* 37* 36* CREATININE 1.21* 1.07* 1.29* No results for input(s): MG in the last 72 hours. Invalid input(s): CAIWBCALCIUM Recent Labs 11/11/2344711/12/23 0435 11/13/23 0443 GLUCOSE 84 87 90 Echocardiogram 11/09/2023: SUMMARY: Left ventricular ejection fraction is visually estimated at 65%. No significant valvular abnormalities were identified. Pulmonary artery systolic pressure estimate is 21mmHg above RAP. (Normal) . No prior. GXT 11/10/2023: Summary 1. The patient exercised for 4 minute(s) on the Modified Rey protocol and achieved 54 % of maximum predicted HR. Study was diagnostic. 2. Below normal functional capacity for age. 3. Based on Colón Score of 4 the patient is at Moderate risk for cardiovascular events. 4. The patient experienced dyspnea (moderate to severe), shortness of breath and lightheaded/pre-syncope during the stress test. 5. Sensitivity is reduced due to patient not reaching target heart rate. Automatic blood pressure cough had difficulty capturing BP during exercise. Treadmill was stopped due to difficulty breathing,and immediate manual blood pressure was measured at 246/88. Consults: cardiology Electrophysiology Cardilogy Procedure: see above pacemaker placement Disposition: home Condition at discharge: stable Discharge medication: Done while pt still in hospital bed Medication List CHANGE how you take these medications carvedilol 3.125 MG tablet Commonly known as: COREG Take 2 Tablets (6.25 mg) by mouth daily AND 2 Tablets (6.25 mg) every evening. What changed: See the new instructions. CONTINUE taking these medications alendronate 70 MG tablet Commonly known as: FOSAMAX Take 1 Tablet (70 mg) by mouth once every week. Take 30 minutes before first tvhl-gfqtf-tfohivybek on mornings. Avoid lying down for 30 minutes. aspirin EC 81 MG enteric coated tablet cholecalciferol 50 MCG (2000 UT) tablet Commonly known as: VITAMIND3 drug not in computer ezetimibe 10 MG tablet Commonly known as: ZETIA hydroxychloroquine 200 MG tablet Commonly known as: PLAQUENIL Take 1 Tablet (200 mg) by mouth daily. LORazepam 0.5 MG tablet Commonly known as: ATIVAN losartan 100 MG tablet Commonly known as: COZAAR Take 1 Tablet (100 mg) by mouth daily. MAG GLYCINATE OR magnesium oxide 400 MG tablet Commonly known as: MAG-OX medical cannabis patient certified Meloxicam 15 MG tablet Commonly known as: MOBIC MULTIVITAMINS OR mycophenolate 500 MG tablet Commonly known as: CELLCEPT Take 2 Tablets (1,000 mg) by mouth two times a day. NALTREX OR omeprazole 40 MG capsule Commonly known as: PriLOSEC ondansetron 4 MG disintegrating tablet Commonly known as: ZOFRAN-ODT Praluent 75 MG/ML Soaj Generic drug: Alirocumab predniSONE 2.5 MG tablet Commonly known as: DELTASONE Take 3 Tablets (7.5 mg) by mouth daily. probiotic spironolactone 25 MG tablet Commonly known as: ALDACTONE Take 1 Tablet (25 mg) by mouth daily. tacrolimus 0.1 % ointment Commonly known as: PROTOPIC Apply topically two times a day. to affected areas as directed. triamcinolone acetonide 0.1 % ointment Commonly known as: KENALOG Apply topically two times a day. To areas of rash Tylenol 8 Hour Arthritis Pain 650 MG controlled release tablet Generic drug: acetaminophen Where to Get Your Medications These medications were sent to [facility] [address] [place] [address] [facility] [address] alendronate 70 MG tablet carvedilol 3.125 MG tablet Outpatient follow up appointments: No follow-up provider specified. Future Appointments Date Time Provider Department Center 11/22/2023 8:45 AM [facility], [facility] P[facility]00 [facility] [address] 12/22/2023 10:45 AM DesiletFreeman DO [facility] Gabbie Blackman MD, [id number] Hospitalist//[facility] For full discharge orders and instructions, please see the after visit summary for this hospitalization. See the electronic medical record for full laboratory and diagnostic test results. documented in this encounter Discharge Instructions * Attachments The following attachments cannot be sent through Care Everywhere. * Biventricular Pacemaker: Post-op (Frisian) documented in this encounter Medications at Time of Discharge Medication Sig Dispensed Refills Start Date End Date acetaminophen (TYLENOL 8 HOUR ARTHRITIS PAIN) 650 MG controlled release tablet Take 1 Tablet (650 mg) by mouth every 8 hours as needed. alendronate (FOSAMAX) 70 MG tablet Take 1 Tablet (70 mg) by mouth once every week. Take 30 minutes before first gboo-jodrx-fxydkwhfzb on mornings. Avoid lying down for 30 minutes. 12 Tablet 3 11/13/2023 11/12/2024 aspirin EC 81 MG enteric coated tablet Take 1 Tablet (81 mg) by mouth daily. cholecalciferol (VITAMIND3) 50 MCG (2000 UT) tablet Take 1 Tablet (2,000 Units) by mouth daily. drug not in computer Take by mouth daily. ProOmega Curcumin by [employer]: Take 3 capsules by mouth daily ezetimibe (ZETIA) 10 MG tablet Take 1 Tablet (10 mg) by mouth daily. 10/21/2022 hydroxychloroquine (PLAQUENIL) 200 MG tablet Take 1 Tablet (200 mg) by mouth daily. 90 Tablet 3 03/22/2023 03/21/2024 LORazepam (ATIVAN) 0.5 MG tablet Take 1 Tablet (0.5 mg) by mouth as needed. 08/24/2023 losartan (COZAAR) 100 MG tablet Take 1 Tablet (100 mg) by mouth daily. 90 Tablet 3 10/13/2023 10/12/2024 Magnesium Bisglycinate (MAG GLYCINATE OR) Take 420 mg by mouth two times a day. magnesium oxide (MAG-OX) 400 MG tablet Take 1 Tablet (400 mg) by mouth daily as needed. medical cannabis patient certified Take 1 Capsule by mouth two times daily as needed. Meloxicam (MOBIC) 15 MG tablet Take 1 Tablet (15 mg) by mouth daily. Multiple Vitamin (MULTIVITAMINS OR) Take 1 Capsule by mouth daily. mycophenolate (CELLCEPT) 500 MG tablet Take 2 Tablets (1,000 mg) by mouth two times a day. 360 Tablet 1 09/22/2023 09/16/2024 Naltrexone HCl, Pain, (NALTREX OR) Take 5.5 mg by mouth daily. omeprazole (PRILOSEC) 40 MG capsule Take 1 Capsule (40 mg) by mouth daily. 01/12/2023 ondansetron (ZOFRAN-ODT) 4 MG disintegrating tablet Take 1 Tablet (4 mg) by mouth every 6 hours as needed. 03/12/2023 predniSONE (DELTASONE) 2.5 MG tablet Take 3 Tablets (7.5 mg) by mouth daily. 270 Tablet 1 09/22/2023 03/20/2024 probiotic (AKA SUPER PROBIOTIC) Take 1 Capsule by mouth daily. spironolactone (ALDACTONE) 25 MG tablet Take 1 Tablet (25 mg) by mouth daily. 90 Tablet 3 08/26/2023 08/25/2024 tacrolimus (PROTOPIC) 0.1 % ointmentIndications:L upus (HRC) Apply topically two times a day. to affected areas as directed. 60 g 2 10/10/2023 triamcinolone acetonide (KENALOG) 0.1 % ointment Apply topically two times a day. To areas of rash 80 g 2 07/11/2023 carvedilol (COREG) 3.125 MG tablet Take 2 Tablets (6.25 mg) by mouth daily AND 2 Tablets (6.25 mg) every evening. 270 Tablet 11/13/2023 11/28/2023 PRALUENT 75 MG/ML SOAJ Inject subcutaneously every 14 days. 12/07/2023 documented as of this encounter Progress Notes * Ben Luciano RN - 11/13/2023 10:47 AM CDT DISCHARGE O: Patient safely discharged to home. D: Patient is alert and oriented x 4. Pt up independently . Discharge criteria met. Vaccines addressed prior to discharge. A: Discharge instructions and medications reviewed and given to patient. Belongings checklist reviewed with patient and belongings sent. Care plan issues addressed and education record updated. Educated with handout of pacemaker activity restrictions. R: Patient verbalizes understanding and teaches back discharge instructions. Patient discharged by:wheelchair with staff. * Ben uLciano RN - 11/12/2023 6:10 PM CDT Shift Summary: Uneventful. Patient ok to discharge per Cardiology. Granddaughter would be ride home is unable to come Tuesday. Plan for discharge tomorrow Tuesday. Patient in great mood feeling much better with pacemaker placed. Minimal discomfort at incision. Walking around unit independently. Will continue to monitor. * Ciara Kumar, OTR/L - 11/12/2023 2:48 PM CDT Occupational Therapy Attempted to see patient for OT evaluation. Per chart review and conversation with RN, patient doing well. After providing education on OT, patient declined stating she has no OT needs. Home is set-up well and she has been ambulating around room and unit. Granddaughter will assist as needed once home. Will complete OT orders at this time. Re-order if status changes. * Gabbie Blackman MD - 11/12/2023 1:58 PM CDT Hospitalist Progress Note Date of Admission: 11/08/2023 Date of Service: 11/12/2023 PCP: Dalton Canales MD Assessment and Plan: Synopsis: 68-year-old with past medical history of uncontrolled hypertension due to intolerance to many medications peripheral arterial disease, cerebral aneurysm, fibromyalgia, lupus, tobacco use, recently quit, sensorineural hearing loss, chronic pain used to be on fentanyl currently on medical marijuana, generalized anxiety disorder, obstructive sleep apnea, was admitted for hypertensive urgency/emergency, blood pressure was controlled with nifedipine drip Hypertensive urgency/emergency Nicardipine drip stopped History of intolerance to several medication atenolol, metoprolol, diltiazem, amlodipine, hydrochlorothiazide, hydralazine Started on Coreg 6.25 b.i.d., so far tolerated Continue losartan 100 mg daily Continue Aldactone 25 mg daily Follow-up with Cardiology post discharge Daily blood pressure monitoring at home stressed Sick sinus syndrome Severe resting bradycardia resolved With nadolol blood heart rate dropped into 40s was taken off beta-blockers watched for 36 hours without any improvement in the heart rate, seen by Cardiology EP, GXT stress test performed with poor heart rate variability, 40-80, at rest to exertion Pacemaker placed EP cardiology follow-up post discharge Peripheral arterial disease Bilateral iliac stenting/bilateral carotid endarterectomy 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 Continue Plaquenil 200 q.d. Continue prednisone 7.5 daily Continue pilocarpine 5 mg TID ? Mercaptopurine check with her Chronic steroid use Patient has been on chronic steroids for SLE At risk for iatrogenic adrenal insufficiency during stressful situations at any point if undergoing any stress of surgery or illness will need stress steroids if ever hypotensive with no clear reasons or nausea vomitting should be given stress steroids GERD Chronic stable issue, continue PPI Hyperlipidemia This is chronic stable condition continue Zetia-Crestor She is also on Praluent Chronic pain syndrome Chronic stable medical issue baseline home regimen of pain medications include medical marijuana, naltrexone OR Mobic, Ativan History of cerebral aneurysm, 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 Blood pressure control stressed AM Labs: none Code: DELMY Diet: cardiac DVT: low risk SALTY:tommorrow Granddaughter planning to pick her up tomorrow Gabbie Blackman MD,(charges based on [facility] complexity of cares:High) Subjective Today: Doing well Shower Her granddaughter can pick her up tomorrow Denied any dizziness Blood pressure medication discussed with her Compliance stressed to her Care disussed with team and involved consultants Prior Living Situation: Patient lives in [place], she is alone, her daughter of addiction, her granddaughter lives close by who comes to help patient Patient had past history of chronic pain disorder for which she was under care of pain Clinic, she used to be on fentanyl, has been weaned off, currently on medical marijuana Objective Temp: 36.7 ??C (98 ??F) BP: 129/63 Pulse: 60 Resp: 13 SpO2: 96 % Temp Min: 36.4 ??C (97.5 ??F) Max: 36.7 ??C (98 ??F) BP Min: 126/63 Max: 158/62 Pulse Min: 60 Max: 66 Resp Min: 9 Max: 21 SpO2 Min: 92 % Max: 96 % Admit weight: Weight: 56.6 kg (124 lb 12.5 oz) Current weight:Weight: 56.6 kg (124 lb 12.5 oz) I&O LAST 24 hours: Intake/Output Summary (Last 24 hours) at 11/12/2023 1358 Last data filed at 11/12/2023 0600 Gross per 24 hour Intake 849 ml Output -- Net 849 ml Pertinent Positive on exam: Mild pallor Disheveled appearance No carotid bruit Clear lungs Looks comfortable, is alert & orientedx3,normal higher function No apparent respiratory or cardiac distress, looks comfortable Gen: moist mucus membrane, no LNpathy Lungs: CTA Bilaterally Cor: RRR nl s1s2, no murmur, no rub, no gallop Abd: +BS, non tender, non distended, no rebound or guarding Ext: no clubbing, cyanosis, or edema RATE REVIEWER: no FND Daily Med in Hospital: aspirin 81 mg Oral Daily carvedilol 6.25 mg Oral BID with meals ezetimibe 10 mg Oral Daily hydroxychloroquine 200 mg Oral Daily losartan 100 mg Oral Daily mycophenolate 1,000 mg Oral BID pantoprazole DR 40 mg Oral Daily at 6 am predniSONE 7.5 mg Oral Daily spironolactone 25 mg Oral Daily Labs & Imaging during course of stay in Hospital Images this admission XR Portable Chest 1 View Result Date: 11/08/2023 COMPARISON: None. FINDINGS: Normal cardiomediastinal silhouette and pulmonary vasculature. Lungs appear clear. No pneumothorax or pleural effusion. Surgical clips in the right neck. CT Angio Neck Head W IV Cont Result Date: 11/08/2023 INDICATION: sams, htn, known aneurysms TECHNIQUE: CT angiogram of the [place] and CT angiogram of the neck with IV contrast with 2D and 3D reformatting, 100 mL IOHEXOL 350 MG/ML IV SOLN. COMPARISON: Prior comparison CT angiographic images from 11/14/2021 are not available. 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 FINDINGS: CTA HEAD: Distal internal carotid arteries: Patent and nonstenotic. Anterior cerebral arteries: Patent and nonstenotic. Middle cerebral arteries: Patent and nonstenotic. Lobulated saccular aneurysm involving the right middle cerebral artery bifurcation directed anteriorly and inferiorly measuring 7.4 mm AP by 5.8 mm transverse by 9.3 mm craniocaudal dimension utilizing axial and coronal MPR images. 3 x 3 mm daughter aneurysm projecting from the inferior aspect of the main aneurysm. Aneurysm measurements car inclusive of the daughter aneurysm. Please see [facility] images. Posterior ce rebral arteries: Patent and nonstenotic. Vertebrobasilar system: Patent and nonstenotic. 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 Please see Lucas images. IMPRESSION: 1. No evidence for large vessel occlusion or severe stenosis of the majorintracranial arterial vasculature. 2. No evidence for intracranial stenosis or enhancing intracranial lesions. 3. 7.4 x 5.8 x 9.3 mm lobulated saccular aneurysm involving right middle cerebral arterybifurcation directed anteriorly and inferiorly. 4. 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 CTA NECK: Right neck: Right carotid system patent and nonstenotic. Severe short segment stenosis of the right vertebral artery origin secondary to calcified atherosclerotic plaque. Moderate to severe short segment stenosis of the distal cervical right vertebral artery at the C3-4 level. Left neck: 25% short segment stenosis of the proximal left internal carotid artery. Remainder of left carotid system otherwise patent and nonstenotic. Possible segmental occlusions of the thoracic, proximal and mid cervical left vertebral artery with severe narrowing of the patent segments. Reconstitution of flow within theleft vertebral artery at the C3-4 level which demonstrates a moderate to severe short segment stenosis at the C2-3 level. Arch: 20% short segment stenosis of the proximal and distal left subclavian artery. Aortic arch and remainder visualized arterial brachiocephalic vessels otherwise appear unremar kable. IMPRESSION: 1. Right carotid system patent and nonstenotic. 25% short segment stenosis of the proximal left internal carotid artery. Remainder of left carotid system otherwise patent and nonstenotic. 2. Severe short segment stenosis of the right vertebral artery origin. Moderate to severe short segment stenosis of the distal cervical right vertebral artery at the C3-4 level. 3. 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 Reconstitution of flow within the left vertebral artery at the C3-4 level. 4. Severe neural foraminal stenosis at the C2-3 level and the C3-4 level on the right CT Head WO IV Cont Result Date: 11/08/2023 COMPARISON: None. TECHNIQUE: Images of the head were obtained without contrast. FINDINGS: The ventricles, sulci and cisterns are normal size and configuration. No evidence for intracranial mass, intracranial attenuation abnormality, acute intracranial hemorrhage or extra-axial fluid collection. Visualized paranasal sinuses and mastoid air cells are unopacified bilaterally. Partial visualization of bilateral uncinectomies and inferior ethmoidectomies. IMPRESSION: 1. Partial visualization of paranasal sinus postoperative changes. 2. Otherwise unremarkable unenhanced cranial CT examination. No evidence for acute intracranial hemorrhage. Significant Labs Sodium Date Value Ref Range Status 11/12/2023 135 (L) 136 - 145 mmol/L Final 11/11/2023 135 (L) 136 - 145 mmol/L Final 11/10/2023 138 136 - 145 mmol/L Final Creatinine Date Value Ref Range Status 11/12/2023 1.07 (H) 0.55 - 1.02 mg/dL Final 11/11/2023 1.21 (H) 0.55 - 1.02 mg/dL Final 11/10/2023 1.18 (H) 0.55 - 1.02 mg/dL Final Hemoglobin Date Value Ref Range Status 11/10/2023 12.0 12.0 - 15.5 g/dL Final 11/09/2023 12.0 12.0 - 15.5 g/dL Final 11/08/2023 13.1 12.0 - 15.5 g/dL Final WBC Date Value Ref Range Status 11/10/2023 5.8 3.5 - 10.5 x10(9)/L Final 11/09/2023 6.1 3.5 - 10.5 x10(9)/L Final 11/08/2023 7.8 3.5 - 10.5 x10(9)/L Final Recent Labs 11/10/23 045 WBC 5.8 HGB 12.0 PLTS 238 Recent Labs 11/10/23 0450 11/11/238 11/12/23 0435 SODIUM 138 135* 135* K 4.1 3.8 4.7 CHLORIDE 107 106 108 BICARB 23 20 20 BUN 40* 38* 37* CREATININE 1.18* 1.21* 1.07* No results for input(s): MG in the last 72 hours. Invalid input(s): CAIWBCALCIUM Recent Labs 11/10/2344911/11/2344711/12/23 0435 GLUCOSE 81 84 87 Echocardiogram 11/09/2023: SUMMARY: Left ventricular ejection fraction is visually estimated at 65%. No significant valvular abnormalities were identified. Pulmonary artery systolic pressure estimate is 21mmHg above RAP. (Normal) . No prior. GXT 11/10/2023: Summary 1. The patient exercised for 4 minute(s) on the Modified Rey protocol and achieved 54 % of maximum predicted HR. Study was diagnostic. 2. Below normal functional capacity for age. 3. Based on Colón Score of 4 the patient is at Moderate risk for cardiovascular events. 4. The patient experienced dyspnea (moderate to severe), shortness of breath and lightheaded/pre-syncope during the stress test. 5. Sensitivity is reduced due to patient not reaching target heart rate. Automatic blood pressure cough had difficulty capturing BP during exercise. Treadmill was stopped due to difficulty breathing,and immediate manual blood pressure was measured at 246/88. * Tommy Castro, PT - 11/12/2023 12:26 PM CDT Physical Therapy Daily Progress Note Patient was to be seen this morning for PT evaluation. Per conversation with RN patient has been walking around unit feeling good. Conversed with patient she lives in single level town home and feelsgood. Does not need PT at this time. Was able to correctly state all pace maker precautions. Will complete PT orders at this time as patient is safe to DC home. Tommy Castro, PT 12:26 PM 11/12/2023 * Yanci Andrade PA-C - 11/12/2023 9:10 AM CDT Cardiology Progress Note 11/12/2023 Nicolle [place] [id number] Date of Admission:11/08/2023 SUBJECTIVE: Feels better, no more shortness of breath or heart pounding. Discomfort at PM incision site. No dizziness when upright in the room. Current Medications: aspirin 81 mg Oral Daily carvedilol 6.25 mg Oral BID with meals ezetimibe 10 mg Oral Daily hydroxychloroquine 200 mg Oral Daily losartan 100 mg Oral Daily mycophenolate 1,000 mg Oral BID pantoprazole DR 40 mg Oral Daily at 6 am predniSONE 7.5 mg Oral Daily spironolactone 25 mg Oral Daily OBJECTIVE: Temp Av.9 ??F (36.6 ??C) Min: 97.5 ??F (36.4 ??C) Max: 98.4 ??F (36.9 ??C) BP Min: 126/63 Max: 194/65 Pulse Av.1 Min: 52 Max: 66 SpO2 Av.5 % Min: 92 % Max: 96 % Current weight: Weight: 124 lb 12.5 oz (32308 g) Admit weight: Weight: 124 lb 12.5 oz (39946 g) I & O over last 24 hours: Intake/Output Summary (Last 24 hours) at 11/12/2023 0910 Last data filed at 11/12/2023 0600 Gross per 24 hour Intake 849 ml Output -- Net 849 ml Telemetry: atrial paced rhythm and sinus rhythm General Appearance: Alert, no respiratory distress Lungs: Clear to auscultation Heart: Regular rate and rhythm (paced), no murmur. PM incision site intact with moderate ecchymosisand minimal edema. Abdomen: Soft, non-tender, no hepatomegaly Extremities: Warm and without edema Labs: Component Latest Ref Rng 11/12/2023 Sodium 136 - 145 mmol/L 135 (L) Potassium 3.5 - 5.1 mmol/L 4.7 Chloride 98 - 109 mmol/L 108 CO2 20 - 29 mmol/L 20 Anion Gap (calc.) 6 - 16 mmol/L 7 Calcium 8.4 - 10.4 mg/dL 9.2 BUN 7 - 26 mg/dL 37 (H) Creatinine 0.55 - 1.02 mg/dL 1.07 (H) Glucose 70 - 100 mg/dL 87 GFR, Estimated >60 mL/min/1.73m2 56 (L) Echocardiogram 11/09/2023: SUMMARY: Left ventricular ejection fraction is visually estimated at 65%. No significant valvular abnormalities were identified. Pulmonary artery systolic pressure estimate is 21mmHg above RAP. (Normal) . No prior. GXT 11/10/2023: Summary 1. The patient exercised for 4 minute(s) on the Modified Rey protocol and achieved 54 % of maximum predicted HR. Study was diagnostic. 2. Below normal functional capacity for age. 3. Based on Colón Score of 4 the patient is at Moderate risk for cardiovascular events. 4. The patient experienced dyspnea (moderate to severe), shortness of breath and lightheaded/pre-syncope during the stress test. 5. Sensitivity is reduced due to patient not reaching target heart rate. Automatic blood pressure cough had difficulty capturing BP during exercise. Treadmill was stopped due to difficulty breathing,and immediate manual blood pressure was measured at 246/88. ASSESSMENT/PLAN: Hypertensive urgency/emergency. Was requiring nicardipine on top of losartan, spirolactone. Off of nicardipine at this time. Coreg resumed yesterday pm following PM implant, at higher dose 6.25 mg BID (was on 3.125 mg BID prior to admission). It is felt that her sinus node dysfunction contributes to her uncontrolled HTN, which is much better today. Sinoatrial node dysfunction/chronotropic incompetence, s/p pacemaker implant 11/11/2023--normal fxn on device interrogation today, Xray with good lead placement and no pneumothorax. Incision site looks good. PAD Tobacco abuse, hx of. 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 Neuro evaluated, planning outp neurosurgery appt for eval. Chronic pain. Lupus -Blood pressure well controlled. She is nervous about taking the higher Coreg 6.25 mg BID as she mentions this dose caused profound dizziness in outpt setting, but we discussed the dizziness was probably from her conduction disease. She tolerated 6.25 mg dose yesterday pm and this am. Continue rhonda nolactone and losartan as is, unchanged from prior to admission. -Pacemaker site and post-implant Xray look good, normal function on device check today. -OK for dc from cardiology perspective, but official dc orders per hospitalist. Pt mentions she will not have a ride home until tomorrow. Transfer to [address] [place] [address]. -Pacemaker clinic f/u scheduled -Left message with cardiology pharmacy scheduler to arrange cardiology clinic f/u 3-4 weeks to recheck BP. -Cardiology service will sign off at this time. Yanci Andrade PA-C Department of Cardiology * Atiya Ryan RN - 11/12/2023 5:54 AM CDT Dual chamber permanent pacemaker placed- bpm 60 . Pt back to unit around 1520. Alert and oriented, afebrile and following commands. Minor complaints of SAMS- Declined PRNs at this time. BP WNL. RA- No SOB or cough. Cardiac diet placed- tolerating diet well. Up to BR with standby assist. No BM yet andno c/o of constipation at this time. Minor pain around pacemaker insertion site later on into shift- PRN dilaudid given. * Stefanie Perez MD - 11/11/2023 5:22 PM CDT DAILY PROGRESS NOTE Admit Date: 11/08/2023 SUBJECTIVE:Back from pacemaker. Has headache. Currently no sob/dizziness. OBJECTIVE: Vitals: BP 126/63 Pulse 60 Temp 36.5 ??C (97.7 ??F) (Oral) Resp 18 SpO2 94% No intake/output data recorded. General appearance: NAD, alert, pleasant, Lungs: clear to auscultation bilaterally no retraction CV: regular rate and rhythm, S1, S2 , Ekg: Imaging: ECHOCARDIOGRAM Procedure 11/09/2023 6:53 AM date/time: [facility] INDICATIONS Dyspnea/SOB. SUMMARY: Left ventricular ejection fraction is visually estimated at 65%. No significant valvular abnormalities were identified. Pulmonary artery systolic pressure estimate is 21mmHg above RAP. (Normal) . No prior. Labs: I have independently reviewed the following: Hospital Encounter on 11/08/23 (from the past 24 hour(s)) Basic Metabolic Panel Result Value Ref Range Sodium 135 (L) 136 - 145 mmol/L Potassium 3.8 3.5 - 5.1 mmol/L Chloride 106 98 - 109 mmol/L CO2 20 20 - 29 mmol/L Anion Gap 9 6 - 16 mmol/L Calcium 9.9 8.4 - 10.4 mg/dL BUN 38 (H) 7 - 26 mg/dL Creatinine 1.21 (H) 0.55 - 1.02 mg/dL Glucose 84 70 - 100 mg/dL GFR, Estimated 49 (L) >60 mL/min/1.73m2 Narrative The National Kidney Disease Education Program suggests measuring Cystatin C in patients with eGFRcrea of 45 to 59 ml/min/1.73^2 who do not have other markers of kidney damage (i.e. elevated urine Albumin/Creatinine Ratio or a prior Cystatin C confirming the presence of chronic kidney disease). ASSESSMENT/PLAN:68 y.o. female with lupus, hyperlipidemia, brain aneurysm who was admitted on 11/09/2023 for hypertensive emergency. Hypertensive emergency/urgency Difficult to control hypertension - echo unremarkable -appreciate cards consult -hypertensive response w bradycardia on stress test concerning for chronotropic incompetenc -Multiple allergies to antihypertensives including hydrochlorothiazide, atenolol, diltiazem, metoprolol, amlodipine, hydralazine in the past. -Tolerated losartan, Coreg, spironolactone as outpatient but bp not controlled -hopefully after pacer will tolerate retrial of coreg Sinus node dysfunction/chronotropic incompetence, symptomatic bradycardia. -s/p pacer 11/11/23 Brain aneurysm-chronic/right MCA and left PICA aneurysm (both unruptured) Size appears to be stable on imaging Asymptomatic -appreciate neuro consult who has now signed off, will be referred to outpt neurosurgery for eval ,currently no further neurologic work up planned Increased cr -worrisome but mild, repeat in am, -poor po intake, will start iv fluids History of lupus Continue with CellCept, hydroxychloroquine, prednisone Peripheral artery disease Hx of iliac stents , gets iv praluent q 14 days Anxiety - as prescribed lorazepam but has not started yet. Also has medical cannabis Medical cannabis -has lock box at bedside Hyperlipidemia - continue Zetia Diet: regular Fluids/lines none Dvt prophylaxis: low risk Code status dnr dni Disposition: ok to transfer to [address] [place] [address]/[facility] , needs a few more days for bp titration, will also have PT OT see Notes reviewed: cardiology, Discussed with: Dr Howell Medical decision making high complexity -the patient is receiving a drug therapy requiring monitoring :intermittent iv nicardipine Stefanie Perez MD Hospitalist * Vidya Prabhakar MSW, [facility] - 11/11/2023 3:22 PM CDT [facility] Care Management Inpatient Note Plan: Expected Discharge Date: TBD Anticipated Discharge Plan: TBD Transportation: TBD Barriers to Discharge: medical stability Prior Living Situation: Alone, Home - multilevel Advanced Directive on File: No Additional Comments: Hospital Care Management was consulted to assist with discharge planning. Chart reviewed. Patient arrives from [facility]iology [place] for evaluation of hypertension. Patient has a history of hyperlipidemia, brain aneurysm and lupus. Hospital Medicine, Neurology and Cardiologyfollowing patient. Patient in procedure today (11/10) for pacemaker placement. Given patient's current medical status and pending clinical course, active discharge planning not appropriate at this time. ICU SW available for support as needed. HCM to follow peripherally and engage in discharge planning as appropriate and as needs arise. Patient/Spokesperson Updated: No BRENNA Moody LGSW 3:22 PM 11/11/2023 * Stefanie Keller RDN - 11/11/2023 3:09 PM CDT Nutrition Assessment Screening: Reason For Assessment: dietitian initiated (LOS day 4-poor intake noted) Current Nutrition Assessment: Pt admittd for evaluation of high blood pressure. Hx includes HTN, HLD, brain aneurysm, lupus. Pt reports intolerance to soy and gluten which has significantly limited her meal options in hospital. 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 Will provide supplement TID at mealtimes. Subjective Information Subjective Information: Met w/ pt at bedside this AM. 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 I encouraged pt to continue to work with diet techs on meal options. In addition will jone [employer] Standard supplement at mealtimes TID as a supplement to intake which will meet her needs. Pt reports that appetite has been OK and weight appears to be stable to this point. Assessment Summary: Evaluation of kcal intake: not meeting kcal needs Evaluation of protein intake: not meeting protein needs BMI: 20.97 Current Suspected Level of Malnutrition Risk: at risk for malnutrition Nutrition Therapy Plan Plan: Encourage intake of meals as able; [employer] Standard 1.4 supplement w/ meals TID; monitor intake, wt, labs. Will follow up with pt in 3-5 days. See full nutrition assessment in the Patient Story report or Nutrition Assessment flowsheet. Stefanie Keller, MS, RDN, LD, CNSC (Contact Dietitian assigned to patient's floor using [email or web address]) * Wilfredo Howell III, MD - 11/11/2023 2:35 PM CDT Cardiology Progress Note 11/11/2023 Nicolle Martinez [facility] [id number] Patient Active Problem List Diagnosis Fibromyalgia Hypertension [...] cutaneous lupus erythematosus Tinea corporis Tubular adenoma Hypertensive emergency Chronotropic incompetence Sinus bradycardia SSS (sick sinus syndrome) (HRC) Recommendations: 1) Hypertensive urgency/emergency- hypertension adequately control on combination of nicardipine, spironolactone, losartan. Further uptitration of medications likely limited by symptomatic SA node dysfunction. Pacemaker planned today. Will then add carvedilol after device is implanted. Hopefully, we will be able to titrate off nicardipine overnight. Further uptitration may be needed. 2) Sinoatrial Node dysfunction- dual-chamber pacemaker scheduled for today. 3) PAD- stable 4) Tobacco Abuse- now abstaining from tobacco. 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 6) Chronic Pain- stable SUBJECTIVE: Patient with significant hypertension and returned to headache, visual change yesterday. Significant hypertension and bradycardia were present at that time, upon re-initiation of nicardipine blood pressure was restored and symptoms resolved. She is now optimistic that pacemaker implantation will help her to significantly improve symptoms. No chest pain or exertional chest pressure overnight. Scheduled Meds: aspirin 81 mg Oral Daily carvedilol 6.25 mg Oral BID with meals ceFAZolin 2 g Intravenous Once ezetimibe 10 mg Oral Daily hydroxychloroquine 200 mg Oral Daily losartan 100 mg Oral Daily mycophenolate 1,000 mg Oral BID pantoprazole DR 40 mg Oral Daily at 6 am predniSONE 7.5 mg Oral Daily spironolactone 25 mg Oral Daily Continuous Infusions: niCARdipine (CARDENE) 50 mg in sodium chloride 0.9 % 250 mL (0.2 mg/mL) IV infusion Stopped (11/11/23 1200) sodium chloride 25 mL/hr at 11/11/23 1410 PRN Meds:acetaminophen, benzocaine-menthol, senna AND polyethylene glycol AND bisacodyl, calcium carbonate, guaiFENesin, HYDROcodone-acetaminophen, HYDROmorphone, HYDROmorphone, medical cannabis, melatonin, ondansetron AND ondansetron AND prochlorperazine AND metoclopramide, midazolam, nystatin, ondansetron, lubricating, potassium bicarbonate-citric acid, sodium chloride, sodium chloride 0.9% OBJECTIVE: BP (!) 145/63 Pulse (!) 55 Temp 98.4 ??F (36.9 ??C) Resp 13 SpO2 97% Current weight: Admit weight: I & O over last 24 hours: No intake or output data in the 24 hours ending 11/11/23 1436 General Appearance: Alert, no respiratory distress Neck: JVP flat Lungs: Clear to auscultation bilaterally, no wheezes or crackles Heart: Regular bradycardia, S1, S2 normal, no murmur, rub or gallop Abdomen: Soft, non-tender, no hepatomegaly Extremities: Warm and without edema ECG/Telemetry: Sinus bradycardia with intermittent pauses Labs: Lab Results Component Value Date Creatinine 1.21 (H) 11/11/2023 No results found for: TROP Wilfredo Howell III, MD Department of Cardiology * Ben Luciano RN - 11/11/2023 2:03 PM CDT GOING TO PROCEDURE / SURGERY O: Patient will go to [facility] for Pacemaker placement. D: Patient is alert and oriented x 4. Last recorded vitals: Temp: 36.9 ??C (98.4 ??F) (11/11/23 1200) Pulse: (!) 55 (11/11/23 1300) Resp: 13 (11/11/23 1300) BP: (!) 145/63 (11/11/23 1300) SpO2: 97 % (11/10/23 0800) A: Pre-procedure check list completed. Consent on chart, signed: No R: Awaiting transport. * Traci Francis, DISHCLOTH FOLDER, PARI MUTUAL TICKET CHECKER - 11/11/2023 11:42 AM CDT Name: Nicolle Covington : 1955 INPATIENT ELECTROPHYSIOLOGY PROGRESS NOTE Attending: Stefanie Perez MD Admission date: 11/08/2023 Date of service: 11/11/2023 Itinerant Teacher Assistant: Dr. Connolly ASSESSMENT/PLAN: 1. Symptomatic sick sinus syndrome. She is scheduled for dual-chamber permanent pacemaker implantation this afternoon, 11/11/2023. Procedure reviewed in detail, including risks. Patient is agreeable to proceeding. SUBJECTIVE: Feeling okay this morning. Questions answered regarding pacemaker implantation. MEDICATIONS: Reviewed JUN. OBJECTIVE: BP (!) 159/54 Pulse (!) 53 Temp 98.4 ??F (36.9 ??C) (Oral) Resp 16 SpO2 97% Tele: Sinus bradycardia General appearance: No apparent distress. Heart: regular rate and rhythm. Lungs: clear. Abdomen: Soft, nontender. No hepatomegaly. Extremities: No edema. LABS/DIAGNOSIC STUDIES: Lab Results Component Value Date Creatinine 1.21 (H) 11/11/2023 Glucose 84 11/11/2023 Glucose, Whole Blood 86 11/08/2023 CO2 20 11/11/2023 Chloride 106 11/11/2023 Potassium 3.8 11/11/2023 Sodium 135 (L) 11/11/2023 BUN 38 (H) 11/11/2023 Calcium 9.9 11/11/2023 GFR, Estimated 49 (L) 11/11/2023 Lab Results Component Value Date WBC 5.8 11/10/2023 RBC 3.84 (L) 11/10/2023 Hemoglobin 12.0 11/10/2023 HCT 35.8 11/10/2023 MCV 93.2 11/10/2023 RDW 13.5 11/10/2023 Platelets 238 11/10/2023 Traci Francis APRN, PARI MUTUAL TICKET CHECKER, PARI MUTUAL TICKET CHECKER Electrophysiology * Ai Thayer RN - 11/11/2023 7:01 AM CDT Pt A & O x 4. She has been very tearful throughout my shift. Using a bedpan. She has been NPO overnight. Nicardipine is off. * Stefanie Perez MD - 11/10/2023 2:37 PM CDT DAILY PROGRESS NOTE Admit Date: 11/08/2023 SUBJECTIVE: had a spell about an hour ago , sat up to eat got dizzy and sweaty. Had to lie down again. Did not end up eating. Headache back. OBJECTIVE: Vitals: BP (!) 156/66 Pulse (!) 39 Temp 36.6 ??C (97.8 ??F) (Oral) Resp 16 SpO2 97% I/O last 3 completed shifts: In: 720 [Oral:720] Out: - General appearance: NAD, alert, pleasant, skin moist/clammy Lungs: clear to auscultation bilaterally no retraction CV: regular rate and rhythm, S1, S2 , no edema Abdomen: soft, non-tender; Ekg: sinus rate 39 Imaging: ECHOCARDIOGRAM Procedure 11/09/2023 6:53 AM date/time: [facility] INDICATIONS Dyspnea/SOB. SUMMARY: Left ventricular ejection fraction is visually estimated at 65%. No significant valvular abnormalities were identified. Pulmonary artery systolic pressure estimate is 21mmHg above RAP. (Normal) . No prior. Labs: I have independently reviewed the following: Hospital Encounter on 11/08/23 (from the past 24 hour(s)) Complete Blood Count W/Diff (IN AM) Narrative The following orders were created for panel order Complete Blood Count W/Diff (IN AM). Procedure Abnormality Status --------- ------ Complete Blood Count-W/...[[id number]] Abnormal Final result Please view results for these tests on the individual orders. Basic Metabolic Panel (IN AM) Result Value Ref Range Sodium 138 136 - 145 mmol/L Potassium 4.1 3.5 - 5.1 mmol/L Chloride 107 98 - 109 mmol/L CO2 23 20 - 29 mmol/L Anion Gap 8 6 - 16 mmol/L Calcium 9.7 8.4 - 10.4 mg/dL BUN 40 (H) 7 - 26 mg/dL Creatinine 1.18 (H) 0.55 - 1.02 mg/dL Glucose 81 70 - 100 mg/dL GFR, Estimated 50 (L) >60 mL/min/1.73m2 Narrative The National Kidney Disease Education Program suggests measuring Cystatin C in patients with eGFRcrea of 45 to 59 ml/min/1.73^2 who do not have other markers of kidney damage (i.e. elevated urine Albumin/Creatinine Ratio or a prior Cystatin C confirming the presence of chronic kidney disease). Complete Blood Count-W/Diff Result Value Ref Range WBC 5.8 3.5 - 10.5 x10(9)/L RBC 3.84 (L) 3.90 - 5.03 x10(12)/L Hemoglobin 12.0 12.0 - 15.5 g/dL HCT 35.8 34.9 - 44.5 % MCV 93.2 80.0 - 100.0 fL MCH 31.3 27.6 - 33.3 pg MCHC 33.5 31.5 - 35.2 g/dL RDW 13.5 11.9 - 15.5 % Platelets 238 150 - 450 x10(9)/L Automated NRBC 0 <=0 /100 WBC Neutrophil Absolute 2.5 1.7 - 7.0 10(9)/L Lymphocyte Absolute 2.3 1.0 - 4.8 10(9)/L Monocyte Absolute 0.7 0.2 - 0.9 10(9)/L Eosinophil Absolute 0.1 0.0 - 0.5 10(9)/L Basophil Absolute 0.0 0.0 - 0.3 10(9)/L Immature Granulocyte % 0.7 (H) 0.0 - 0.5 % ASSESSMENT/PLAN:68 y.o. female with lupus, hyperlipidemia, brain aneurysm who was admitted on 11/09/2023 for hypertensive emergency. Hypertensive emergency/urgency Difficult to control hypertension - echo unremarkable -Back on nicardipine after spell earlier today with high bp, diaphoresis dizzy and headache -appreciate cards consult -hypertensive response w bradycardia on stress test concerning for chronotropic incompetence., ep cards will see to assess for possible pacemaker -Multiple allergies to antihypertensives including hydrochlorothiazide, atenolol, diltiazem, metoprolol, amlodipine, hydralazine in the past. -Tolerated losartan, Coreg, spironolactone as outpatient but bp not controlled -still aldactone Brain aneurysm-chronic/right MCA and left PICA aneurysm (both unruptured) Size appears to be stable on imaging Asymptomatic -appreciate neuro consult who has now signed off, will be referred to outpt neurosurgery for eval ,currently no further neurologic work up planned Increased cr -worrisome but mild, repeat in am, may need some iv fluids if poor po intake cont History of lupus Continue with CellCept, hydroxychloroquine, prednisone Peripheral artery disease Hx of iliac stents , gets iv praluent q 14 days Anxiety - as prescribed lorazepam but has not started yet. Also has medical cannabis Medical cannabis -has lock box at bedside -yesterday 2 doses , today so far 1 Hyperlipidemia - continue Zetia Diet: regular Fluids/lines none Dvt prophylaxis: low risk Code status dnr dni Disposition: ok to transfer to [address] [place] [address]/[facility] Notes reviewed:neurology, cardiology, er Discussed with: Dr Howell Medical decision making high complexity -the patient is receiving a drug therapy requiring monitoring : iv nicardipine Stefanie Perez MD Hospitalist * Wilfredo Howell III, MD - 11/10/2023 9:14 AM CDT Cardiology Progress Note 11/10/2023 Nicolle Covington [id number] Patient Active Problem List Diagnosis Fibromyalgia Hypertension [...] cutaneous lupus erythematosus Tinea corporis Tubular adenoma Hypertensive emergency Recommendations: 1) Hypertensive urgency/emergency- patient admitted with significant elevation in blood pressure. She has had some evidence of uncontrolled hypertension by home blood pressure log, but intolerance tomultiple medications. Blood pressures have been only modestly elevated overnight with combined treatment of spironolactone/losartan 50 mg daily. Will increase losartan to 100 mg today, but still patient has been demonstrating sinus bradycardia even after discontinuation of beta-bebe. Stress GXT today to look for evidence of symptomatic sinoatrial node dysfunction (symptoms may include exercise intolerance, but also reflexive hypertension). 2) Sinoatrial Node dysfunction- now appearing to be larger contributor to hypertension. GXT today to see if there is evidence of significant chronotropic incompetence. If present, patient may be a candidate for a pacemaker.. 3) PAD- previous iliac stents noted. On chronic Praluent with no current symptoms of claudication. Patient believes that she would be able to complete at least lower level stress with a GXT. 4) Tobacco Abuse- now abstaining from tobacco. 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 6) Chronic Pain- currently utilizing medical marijuana and low-dose NSAIDs. NSAIDs are typically considered contraindicated with patients with significant hypertension. However, given the significantlevel of her symptoms there may not be any other option. SUBJECTIVE: Scheduled Meds: aspirin 81 mg Oral Daily ezetimibe 10 mg Oral Daily hydroxychloroquine 200 mg Oral Daily losartan 100 mg Oral Daily mycophenolate 1,000 mg Oral BID pantoprazole DR 40 mg Oral Daily at 6 am predniSONE 7.5 mg Oral Daily spironolactone 25 mg Oral Daily Continuous Infusions: PRN Meds:acetaminophen, benzocaine-menthol, senna AND polyethylene glycol AND bisacodyl, calcium carbonate, guaiFENesin, HYDROcodone-acetaminophen, HYDROmorphone, HYDROmorphone, medical cannabis, melatonin, ondansetron AND ondansetron AND prochlorperazine AND metoclopramide, nystatin, lubricating, sodium chloride, sodium chloride 0.9% OBJECTIVE: BP (!) 164/58 Pulse (!) 42 Temp 97.8 ??F (36.6 ??C) (Oral) Resp 13 SpO2 96% Current weight: Admit weight: I & O over last 24 hours: Intake/Output Summary (Last 24 hours) at 11/10/2023 0915 Last data filed at 11/09/2023 1600 Gross per 24 hour Intake 480 ml Output -- Net 480 ml General Appearance: Alert, no respiratory distress Neck: JVP flat Lungs: Clear to auscultation bilaterally, no wheezes or crackles Heart: Regular bradycardia, S1, S2 normal, no murmur, rub or gallop Abdomen: Soft, non-tender, no hepatomegaly Extremities: Warm and without edema ECG/Telemetry: Sinus bradycardia Labs: Lab Results Component Value Date Creatinine 1.18 (H) 11/10/2023 No results found for: TROP Wilfredo Howell III, MD Department of Cardiology * Filomena Lopes DO - 11/09/2023 7:50 AM CDT Hospital Medicine Progress Note Date of admission: 11/08/2023 Today's Date: 11/09/23 Primary team: Hospital Medicine Subjective Overnight events reviewed Notes reviewed: Vitals reviewed: reviewed, bp in good range Has been off nicardipine Patient denies any chest pain, nausea, vomiting or diarrhea Patient Active Problem List Diagnosis Fibromyalgia Hypertension [...] cutaneous lupus erythematosus Tinea corporis Tubular adenoma Hypertensive emergency Physical Exam: Vitals: Blood pressure 128/42, pulse (!) 57, temperature 36.8 ??C (98.3 ??F), temperature source Oral, resp. rate (!) 23, SpO2 94%. @weight Estimated body mass index is 20.97 kg/m?? as calculated from the following: Height as of 10/13/23: 1.651 m (5' 5). Weight as of 10/13/23: 57.2 kg (126 lb). No intake/output data recorded. General: active, alert, not distress CV: rrr Resp: cbta Abdomen: soft, nd, +bs Labs: Reviewed by me Lab Results Component Value Date WBC 6.1 11/09/2023 RBC 3.98 11/09/2023 Hemoglobin 12.0 11/09/2023 HCT 36.7 11/09/2023 MCV 92.2 11/09/2023 RDW 13.4 11/09/2023 Platelets 236 11/09/2023 Lab Results Component Value Date Creatinine 0.96 11/09/2023 Glucose 89 11/09/2023 CO2 26 11/09/2023 Chloride 105 11/09/2023 Potassium 4.0 11/09/2023 Sodium 138 11/09/2023 BUN 28 (H) 11/09/2023 Calcium 10.2 11/09/2023 GFR, Estimated >60 11/09/2023 aspirin 81 mg Oral Daily ezetimibe 10 mg Oral Daily hydroxychloroquine 200 mg Oral Daily losartan 50 mg Oral Daily mycophenolate 1,000 mg Oral BID pantoprazole DR 40 mg Oral Daily at 6 am predniSONE 7.5 mg Oral Daily spironolactone 25 mg Oral Daily Images: see epic 68 y.o. female with lupus, hyperlipidemia, brain aneurysm who was admitted on 11/09/2023 for hypertensive emergency. Hypertensive emergency Difficult to control hypertension Started on nicardipine gtt on admission and has been off Multiple allergies to antihypertensives including hydrochlorothiazide, atenolol, diltiazem, metoprolol, amlodipine, hydralazine in the past. Tolerated losartan, Coreg, spironolactone as outpatient but bp not controlled Will resume losartan at 50 mg Echocardiogram pending Brain aneurysm-chronic Size appears to be stable Asymptomatic History of lupus Continue with CellCept, hydroxychloroquine, prednisone Anxiety - as prescribed lorazepam but has not started yet Hyperlipidemia - continue Zetia Dispo: tbd, will need bp in good range and stable. Filomena Lopes DO 7:50 AM 11/09/2023 Hospital Medicine Billing Based on Complexity: high This note was created with the assistance of voice recognition software. Occasional wrong word or '[id number]' substitutions may have occurred due to software's limitation * Mitzy Rao RN - 11/08/2023 9:36 PM CDT Pt brought medical marijuana with her to the hospital. Reports she takes BID. Verified with MD Lofton that is prescribed through outside MD and dispensed through outside pharmacy. Pt signed acknowledgement that was placed in pt's chart. Lock box delivered by security, educated patient on policy, locked box to pt's bed, and gave pt lucas. MAR placeholder put in by pharmacist. Will chart self-administered when patient takes. documented in this encounter Procedure Notes * Gilbert Grey MD - 11/11/2023 3:24 PM CDTAssociated Order(s): PERMANENT PACEMAKER IMPLANTATION CARDIAC ELECTROPHYSIOLOGY PROCEDURE REPORT Cardiac Electrophysiology Service [facility] [place] Cardiac Itinerant Teacher Assistant: Gilbert Grey MD Date: 11/11/2023 PROCEDURES PERFORMED: Implantation of dual chamber permanent pacemaker Insertion of right atrial lead. Insertion of right ventricular lead. Recording of the His bundle electrogram Fluoroscopy for pacemaker lead positioning. Moderate sedation PRE-OPERATIVE DIAGNOSIS: sinus node dysfunction, chronotropic incompetence, symptomatic bradycardia. POST-OPERATIVE DIAGNOSES: Successful implantation of a dual chamber permanent pacemaker for the above diagnosis. PROCEDURAL DETAILS: I assessed the patient immediately prior to the procedure and found the patient to be an acceptablecandidate for the planned procedure. Prior to the procedure I reviewed the indication for, the alternative management options to, and the risks of permanent pacemaker implantation (including but not limited to bleeding, pain, infection,vascular injury, pneumothorax, and cardiac perforation). After considering the risks and anticipated benefits the patient elected to proceed with pacemaker implant and provided informed consent. The patient was brought to the Cardiac Electrophysiology Laboratory in the fasting, non-sedated state. Moderate sedation was administered under my supervision, as documented in the EP lab record, for greater than 60 minutes. Please see the scanned Cardiac Electrophysiology Lab Flowsheet for the sedation record and other details of the procedure. A total of 3 mg midazolam and 0 mcg fentanyl was administered. The chest was prepped and draped in the usual sterile fashion. Location: Left pectoral region. Local anesthesia: local infiltration with 1% lidocaine and 0.25% bupivacaine. Incision site: A 10 blade was used to make a 5 cm horizontal incision approximately two cm below the clavicle. Electrocautery was used to dissect down to the pectoral fascia, and then inferiorly along the fascia to create a pocket for the device. Hemostasis was maintained throughout with electrocautery. Subclavian vein access: was obtained under fluoroscopic guidance via an extrathoracic approach, using a micropuncture needle. A guidewire was inserted down to the level of the IVC. A second access was obtained in the same manner described above. Lead & device insertion: A 7 Fr peel away sheath was inserted over one of the guidewires. The guidewire and dilator were removed. A Medtronic C315 sheath was advanced into the RV over a long guidewire. The guidewire and dilator were removed. A Medtronic 3830 lead was advanced through the C315 sheath to the basal RV septum.The lead was positioned slight distal to the location of the His bundle electrogram. Pacing here produced a w pattern in lead V1. With a few turns of clockwise torque, the lead was advanced into the basal RV septum. Sensing, impedance, and pacing threshold were excellent. The C315 sheath was withdrawn from the lead tip and slit while ensuring stable lead position under fluoroscopy. Lead parameters were unchanged after slitting the inner sheath. The outer sheath was peeled away. Adequate slackin the lead was ensured during deep inspiration by the patient. The lead was secured to the underlying pectoral muscle with 0 T[place]. A 7 Fr peel away sheath was inserted over the other guidewire. A Medtronic C315 sheath was advancedinto the RA over a long guidewire. The guidewire and dilator were removed. A Medtronic 3830 lead was advanced through the sheath to the atrial septum and advanced into the myocardium with clockwise torque. Sensing, impedance, and pacing threshold were excellent. The inner sheath was withdrawn from the lead tip and slit while ensuring stable lead position under fluoroscopy. Lead parameters were unchanged after slitting the inner sheath. The outer sheath was peeled away. Adequate slack in the lead was ensured during deep inspiration by the patient. The lead was secured to the underlying pectoral muscle with 0 Tevdek. The leads were inserted into and secured in the pacemaker. The pocket was irrigated with an antibiotic solution. The device was placed in the pocket and sutured to the underlying pectoral muscle with0 Tevdek. The sponge and needle count was verified prior to closure. Pocket closure was performed in three layers: a deep layer and then subcutaneous layer of 2-0 Vicryl suture and then a layer of subcuticular 4-0 Vicryl sutures. Dermabond tissue adhesive was applied over the incision. The device was programmed to its final settings. Complications: None. Estimated blood loss: <10 mL IMPLANTED DEVICE(S) AND PARAMETERS: New Permanent Pacemaker Pulse Generator: Medtronic [place], model [id number] New Right Atrial Lead: Medtronic model 867389 Sensed P waves 4.1 mV, pacing threshold 1.2 V @ 0.5 ms, impedance 898 ohms. New Right Ventricular Lead: Medtronic model 270206 Sensed R waves 9.7 mV, pacing threshold 1.2 V @ 0.5 ms, impedance 627 ohms. Programming: AAIR-DDDR 60-130 PLAN: PA and lateral chest xray post procedure. Return to the bills for further management per the inpatient team. Activity restrictions and wound care instructions were reviewed with the patient. Will set up follow up in the device clinic to check surgical incision. Gilbert Grey MD Cardiac Electrophysiology Service documented in this encounter Consult Notes * Madelaine Veloz RN - 11/12/2023 8:23 AM CDTAssociated Order(s): CARE MANAGEMENT CONSULT - [facility] Care Management Inpatient Note Plan: Expected Discharge Date: 11/13-11/15 Anticipated Discharge Plan: TBD (anticipate home) Transportation: TBD Barriers to Discharge: medical stability Prior Living Situation: Alone, Home - multilevel Advanced Directive on File: No Additional Comments: reviewed chart. Per hospitalist note from 11/10, patient will still need a few more days inpatient for BP titration. PT and OT have also been ordered to see patient, but there areno consults completed or scheduled for today. CM will continue to follow patient over the weekend in the event that any urgent discharge needs come up, and follow for PT/OT evals. As of now, nursing SBAR lists patient's mobility level as SBA, soCM will anticipate discharge home once medically ready. Patient/Spokesperson Updated: No Madelaine Veloz RN 8:23 AM 11/12/2023 ADDENDUM: PT note in chart indicates that patient is able to walk around the unit independently and is safe to discharge home. No further Hospital Care Management (HCM) needs identified. If further needs arise, please place a new HCM consult. Madelaine Veloz RN 11/12/2023, 2:04 PM * Travis Connolly MD - 11/10/2023 4:54 PM CDT CONSULT NOTE CARDIAC ELECTROPHYSIOLOGY DATE OF VISIT: 11/10/2023 DATE OF ADMISSION: 11/08/2023 DATE OF : 1955 REQUESTING PHYSICIAN: Dr. Wilfredo Howell REASON FOR CONSULTATION: sinus node dysfunction HPI Nicolle Covington is a 68 y.o. female with a history of peripheral artery disease, cerebral aneurysm, fibromyalgia, uncontrolled hypertension leading to hypertensive urgency (intolerance to several medications, limiting therapy), lupus, tobacco abuse, obstructive sleep apnea, Systemic lupus erythematosus. EP was consulted for sinus node dysfunction with the sinus bradycardia and chronotropic incompetence. Patient has hypertension that is challenging to control, this has been ongoing for a few years. Detailed medication regimen can be seen in prior cardiology progress notes. She has intolerances due tobeta blockers with sinus bradycardia, clopidogrel sedating, lower extremity swelling with calcium channel blockers, anaphylaxis from hydralazine profound dizziness and hypotension with other drugs. Patient has not had any lab work remarkable for end-organ damage from ongoing hypertension. Patient was seen in cardiology clinic on 11/10/23. Due to elevated blood pressure of 214/82, associated symptoms of dizziness, dyspnea on exertion and hx of cerebral aneurysm patient was admitted to [facility]. IN the emergency center BP was elevated to 210/71, BNP mildly elevated, troponin negative. CTA head and neck showing some vertebral artery atherosclerotic disease, what appear to bemostly stable aneurysms, 1 with the right middle cerebral artery, 1 with the left vertebral artery.No large vessel occlusion on CT head. Patient was admitted to [facility] and initiated on nicardipine drip. On 11/08 patient was given nadolol 40 mg in the morning. After moderate dose of beta bebe, HR remained between 45-65 bpm, brief pauses lasting up to 2.5 seconds. Micky has been off AV zayda blocking agents for at least 36 hours, there has been no improvement with sinus bradycardia. GXT stress test was performed today, noting narrow heart rate variablity of 41 bpm at rest up to 80 bpm with activity. Losartan has been increased,continues with spironolactone and low dose nicardipine drip for hypertension. Today, Nicolle is resting in bed. She is tearful, overwhelmed and frustrated with managing high blood pressures. She has recently transferred all of her care to [facility]. She notes that prior to this summer, she could tolerate going to the pool 4-5 times per week to [employer]. She remained active with daily tasks around the house. At baseline, patient denies any chest pain, orthopnea. She has baseline shortness of breath on exertion and wakes during the night with paroxysmal nocturnal dyspnea. She remarks that since February, she has struggled with lightheadedness. She will have random episodes, that occur while sitting of presyncope. She describes becoming lightheaded, having tunnel vision and a headache-these spontaneously resolve in less than 2 minutes. She has not had any trauma ormechanical falls. Patient is very thorough with home blood pressure log, this also shows HR daily. HR at home range from 55-90 bpm over the last month. REVIEW OF SYSTEMS A complete review of systems was completed today and found to be negative except as noted above in the HPI. MEDICAL HISTORY Problem list reviewed in EMR. No past medical history on file. SOCIAL HISTORY Social History Socioeconomic History Marital status: Single Spouse name: Not on file Number of children: Not on file Years of education: Not on file Highest education level: Not on file Occupational History Not on file Tobacco Use Smoking status: Former Types: Cigarettes Smokeless tobacco: Never Vaping Use Vaping status: Never Used Substance and Sexual Activity Alcohol use: Not Currently Drug use: Not on file Sexual activity: Not on file Other Topics Concern Not on file Social History Narrative Not on file Social Determinants of Health Financial Resource Strain: Low Risk (03/24/2023) Received from [facility] Financial Resource Strain Difficulty of Paying Living Expenses: 3 Difficulty of Paying Living Expenses: Not on file Food Insecurity: No Food Insecurity (11/08/2023) Hunger Vital Sign Worried About Running Out of Food in the Last Year: Never true Ran Out of Food in the Last Year: Never true Transportation Needs: No Transportation Needs (11/08/2023) PRAPARE - Transportation Lack of Transportation (Medical): No Lack of Transportation (Non-Medical): No Intimate Partner Violence: Unknown (11/08/2023) Humiliation, Afraid, Rape, and Kick questionnaire Fear of Current or Ex-Partner: Not on file Emotionally Abused: No Physically Abused: No Sexually Abused: No Housing Stability: Unknown (11/08/2023) Housing Stability Vital Sign Unable to Pay for Housing in the Last Year: No Number of Places Lived in the Last Year: Not on file Unstable Housing in the Last Year: No FAMILY HISTORY No family history on file. MEDICATIONS Medication list reviewed in the EMR. Pertinent cardiac medications: Aspirin 81 mg daily Zetia 10 mg daily Losartan 100 mg daily Nicardipine gtt Spironolactone 25 mg daily ALLERGIES Fentanyl, Hydralazine, Infliximab, Amoxicillin-pot clavulanate, Duloxetine, Erythromycin, Gabapentin, Hydrochlorothiazide, Hydroxychloroquine, Sulfasalazine, Tetracycline, and Venlafaxine OBJECTIVE VITAL SIGNS: BP (!) 187/82 Pulse (!) 39 Temp 97.8 ??F (36.6 ??C) (Oral) Resp 16 SpO2 97% PHYSICAL EXAM: GENERAL: Alert and oriented in no acute distress; well nourished. NECK: Supple, symmetrical, trachea midline. No significant jugular venous distension. RESPIRATORY: Respirations unlabored; lungs are clear to auscultation in all lobes. No rhonchi, wheezes or crackles. CARDIOVASCULAR: regular rate and rhythm with S1 and S2; no S3, S4, murmur, or rub. MUSCULOSKELETAL: The chest wall is non tender; no kyphosis or scoliosis. EXTREMITIES: No edema. Distal pulses 2+. No clubbing or cyanosis. NEUROLOGIC: A&O x 3. No focal neuro deficits. Moves all extremities. SKIN: warm and dry, no rashes or lesions on exposed areas. EKG: Sinus bradycardia with PACs VR 39 bpm TELE: Sinus bradycardia with PACs HR 45-65, episodic brief pauses 1.5-2.5 seconds LABS: Lab Results Component Value Date Creatinine 1.18 (H) 11/10/2023 Glucose 81 11/10/2023 Glucose, Whole Blood 86 11/08/2023 CO2 23 11/10/2023 Chloride 107 11/10/2023 Potassium 4.1 11/10/2023 Sodium 138 11/10/2023 BUN 40 (H) 11/10/2023 Calcium 9.7 11/10/2023 GFR, Estimated 50 (L) 11/10/2023 Lab Results Component Value Date WBC 5.8 11/10/2023 RBC 3.84 (L) 11/10/2023 Hemoglobin 12.0 11/10/2023 HCT 35.8 11/10/2023 MCV 93.2 11/10/2023 RDW 13.5 11/10/2023 Platelets 238 11/10/2023 ECHOCARDIOGRAM 11/09/23: Left ventricular ejection fraction is visually estimated at 65%. Mild (1.1-1.3 cm) concentric wall thickening consistent with left ventricular hypertrophy is present. Thickening of the anteroseptal septum [sigmoid septum] is present. No significant valvular abnormalities were identified. Pulmonary artery systolic pressure estimate is 21mmHg above RAP. (Normal) . STRESS TEST 11/10/23: 1. The patient exercised for 4 minute(s) on the Modified Rey protocol and achieved 54 % of maximum predicted HR. Study was diagnostic. 2. Below normal functional capacity for age. 3. Based on Colón Score of 4 the patient is at Moderate risk for cardiovascular events. 4. The patient experienced dyspnea (moderate to severe), shortness of breath and lightheaded/pre-syncope during the stress test. 5. Sensitivity is reduced due to patient not reaching target heart rate. Automatic blood pressure cough had difficulty capturing BP during exercise. Treadmill was stopped due to difficulty breathing,and immediate manual blood pressure was measured at 246/88. Lexiscan Nuclear Stress Test 04/05/2019 - Normal pharmacologic stress perfusion imaging study. - No significant ischemia was suggested by this study. - Normal left ventricular size and systolic function with a calculated LVEF of 69%. - The quantitative TID ratio is elevated although visually the ventricle does not appear to dilate on stress image ASSESSMENT and PLAN Sick sinus syndrome with chronotropic incompetence and a severe resting sinus bradycardia; symptomssuggest episodes of presyncope related to severe transient bradycardia -GXT stress test today, resting HR 45 bpm increasing to 81 bpm with exertion. Nadolol 40 mg given 11/09/23 in the morning. Has been off beta bebe therapy for over 36 hours, HR remains 45-65 bpm on tele. Brief pauses, none of which are longer than 3 seconds. History of bradycardia with beta bebe therapy for hypertension. Due to narrow heart rate variability on GXT stress test, worsening symptoms of exertional intolerance, lightheadedness and presyncope in the setting of sinus bradycardia, PPM placement is warranted. No reversible causes, electrolytes stable, no AV zayda blocking agents. Device may aid in treatment of blood pressure with beta bebe therapy, due to adverse effects of bradycardia. Educated patient that PPM will help regulate heart rate with blood pressure medication regimen. This may allow for beta bebe therapy to used as an adjunctive medication. The PPM may help improve exertional intolerance, lightheadedness. Dual chamber PPM placement tomorrow afternoon. NPO at midnight. Patient is in agreement with treatment plan. Risks, benefits, and alternatives have been reviewed and discussed at length. Risks include but arenot limited to risk of anesthesia, bruising, bleeding, infection, hematoma, cardiac puncture, pneumothorax. Serious complications include heart attack, stroke, or . The risk of these complications is less than 1%. Abnormal transient ischemic dilation on Lexiscan in 2019 Cannot exclude coronary artery disease, multivessel disease. Appreciate recommendations for ischemic workup per general cardiology. Hypertensive Urgency-Admitted 11/09 with hypertensive urgency. Hx of intolerance to several medications:atenolol, metoprolol, diltiazem, amlodipine, HCTZ, hydralazine. Nadolol 40 mg last given 11/08 at10 am. Ongoing sinus bradycardia, HR 45-65 bpm. General cardiology following, appreciate recommendations. 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 Plan of care was discussed with Dr. Connolly. Sharona White APRN, CNP [facility] Electrophysiology Cardiac Electrophysiology Physician Note I performed a consultative history and physical examination on the patient and discussed her management with Sharona White CNP. I reviewed and edited her note as documented above and agree with the documented findings, assessment, and plan of care. The findings and plan were reviewed and discussed with the patient. Travis Connolly MD Cardiac Itinerant Teacher Assistant Please note that the above medical documentation was created using voice recognition software and may contain typographical errors. * Vidya Prabhakar MSW, TRACTOR DRILL OPERATOR - 11/09/2023 1:52 PM CDTAssociated Order(s): CARE MANAGEMENT CONSULT - [facility] Care Management Inpatient Note Plan: Expected Discharge Date: TBD Anticipated Discharge Plan: TBD Transportation: TBD Barriers to Discharge: medical stability Prior Living Situation: Alone, Home - multilevel Advanced Directive on File: No Additional Comments: Hospital Care Management was consulted to assist with discharge planning. Chart reviewed. Patient arrives from [facility] for evaluation of hypertension. Patient has a history of hyperlipidemia, brain aneurysm and lupus. Hospital Medicine, Neurology and Cardiologyfollowing patient. HCM to continue monitoring patient's progress during hospitalization. Given patient's current medical status and pending clinical course, active discharge planning not appropriate at this time. ICU SW available for support as needed. HCM to follow peripherally and engage in discharge planning as appropriate and as needs arise. Patient/Spokesperson Updated: No BRENNA Moody, LAXMI 1:52 PM 11/09/2023 * Wilfredo Howell III, MD - 11/09/2023 10:11 AM CDTAssociated Order(s): CARDIOLOGY CONSULT Images from the original note were not included. Cardiology Consult Note 11/09/2023 Nicolle Covington [id number] Requesting physician: Dr. Filomena Lopes MD Primary physician: Dr. Dalton Canales MD Chief complaint: Hypertensive urgency/emergency History of Present Illness: I had the opportunity to visit with Nicolle for a cardiology consultation at [facility] today. She is a 68-year-old female with significant history of peripheral arterial disease, cerebral aneurysm, fibromyalgia, hypertension, lupus, tobacco use (recently quit), sensorineural hearing loss, chronic pain, generalized anxiety disorder, obstructive sleep apnea, and hospital admission for hypertensive urgency/emergency. Nicolle has demonstrated difficult to control hypertension for several years. She has cycled throughmultiple trials of medical therapy with multiple drug intolerances and significant symptoms. She has had significant difficulty tolerating multiple classes of medication. On occasion it is because of expected drug side effects (edema from calcium channel blockers), bradycardia from beta-blockers, but some drugs have caused pronounced symptoms of dizziness and hypotension. When blood pressure is not adequately controlled she will experience symptoms of diplopia, dizziness, and headaches. Yesterday she was seen as an outpatient in cardiology clinic in demonstrated significant elevation in blood pressure with a value of 214/82. Of note, previous cardiac imaging studies have shown only mild LVH and she has not demonstrated evidence of kidney injury suggestive of longstanding end-organ affects of hypertension. Nicolle was admitted, typical outpatient antihypertensives were discontinued and nicardipine drip was started. Ultimately, nicardipine drip was titrated to near off because of lower range blood pressures. She has not demonstrated any symptoms of chest pain or exertional chest pressure. With blood pressure is under good control she has had no further symptoms of dizziness, diplopia, headache. She reports feeling ???good?? today. Patient Active Problem List Diagnosis Fibromyalgia Hypertension [...] cutaneous lupus erythematosus Tinea corporis Tubular adenoma Hypertensive emergency No past surgical history on file. Allergies: Allergies Allergen Reactions Fentanyl Anaphylaxis, Other, see comments and Respiratory Arrest Hydralazine Anaphylaxis and Other, see comments Infliximab Rash Also had some lip swelling and face swelling Amoxicillin-Pot Clavulanate Gastrointestinal amox ok Duloxetine Diaphoresis, Dizziness and Other, see comments Erythromycin Gastrointestinal Gabapentin Confusion Hydrochlorothiazide Other, see comments and Rash Hydroxychloroquine Anxiety Sulfasalazine Rash Tetracycline Gastrointestinal Venlafaxine Diarrhea Medications: aspirin 81 mg Oral Daily ezetimibe 10 mg Oral Daily hydroxychloroquine 200 mg Oral Daily mycophenolate 1,000 mg Oral BID nadolol 40 mg Oral Daily pantoprazole DR 40 mg Oral Daily at 6 am predniSONE 7.5 mg Oral Daily spironolactone 25 mg Oral Daily Social History Tobacco Use Smoking status: Former Types: Cigarettes Smokeless tobacco: Never Substance Use Topics Alcohol use: Not Currently No family history on file. Review of systems: Complete review of systems was performed on admission and can be found in the admission H&P. I have personally reviewed this. Pertinent cardiac and additional positives can be found above. Exam: Vitals: Temp: 98 ??F (36.7 ??C), Pulse: (!) 53, Resp: 14, SpO2: 97 %, BP: (!) 166/70, Device (Oxygen Therapy): room air Current weight: Admit weight: Estimated body mass index is 20.97 kg/m?? as calculated from the following: Height as of 10/13/23: 5' 5 (165.1 cm). Weight as of 10/13/23: 126 lb (62476 g). I & O over last 24 hours: No intake or output data in the 24 hours ending 11/09/23 1012 General Appearance: Alert,oriented, no respiratory distress Head: Normocephalic, atraumatic Eyes: Sclera are anicteric Throat: Mucous membranes are moist. Neck: Supple, ,no obvious nodes or nodules are appreciated. No carotid bruits, flat JVD Lungs: Clear to auscultation bilaterally, no wheezes or crackles Chest Wall: No tenderness or deformity Heart: Regular rate and rhythm, S1, S2 normal, no murmur, rub or gallop, PMI is normal Abdomen: Soft, +BS, non-tender, no hepatomegaly Extremities: Extremities warm and with no edema Pulses: DPs +1 bilaterally Skin: Skin color normal, no rashes or lesions on visualized skin Psychiatric: Alert and oriented. Mood and affect are normal. Neurologic: Grossly normal. Labs: Lab Results Component Value Date Creatinine 0.96 11/09/2023 Glucose 89 11/09/2023 CO2 26 11/09/2023 Chloride 105 11/09/2023 Sodium 138 11/09/2023 BUN 28 (H) 11/09/2023 Calcium 10.2 11/09/2023 GFR, Estimated >60 11/09/2023 Lab Results (last 24 hours) Component Value Date/Time Troponin I 0.06 (H) 11/08/2023 1956 Troponin I 0.01 11/08/2023 1304 No results found for: CHOL, HDL, TRI, LDL EKG: Sinus bradycardia with marked sinus arrhythmia, poor R-wave progression (can not rule out previous anteroseptal infarct) Cardiac Imaging: Echo Today- INDICATIONS Dyspnea/SOB. SUMMARY: Left ventricular ejection fraction is visually estimated at 65%. No significant valvular abnormalities were identified. Pulmonary artery systolic pressure estimate is 21mmHg above RAP. (Normal) . (Mild LVH also noted) ASSESSMENT/PLAN: 1) Hypertensive urgency/emergency- patient admitted with significant elevation in blood pressure. She has had some evidence of uncontrolled hypertension by home blood pressure log, but intolerance tomultiple medications. Measured outpatient blood pressure was 214/82 (left arm). She has demonstrated symptoms of headache, diplopia, other signs and symptoms to suggest affect of hypertension. No significant subclavian artery stenosis was identified by CT scan yesterday. Minimizing medications likeNSAIDs and prednisone has been recommended, but given chronic pain it has been challenging to optimize medications. Overnight, patient has been on minimal antihypertensive medical therapy (nicardipine drip at 2.5 milligrams/hour). Blood pressures have been largely reasonable. Spironolactone given this morning and nicardipine drip discontinued before 8:00 a.m.. Blood pressures have continued to berecorded per protocol with systolic blood pressure values between 130 and 150 mmHg (no symptoms). Given previous pronounced bradycardia with anything more than moderate doses of beta-bebe, atenolol, metoprolol are relatively contraindicated. Coreg was recently used but caused her significant side effects. She has multiple other intolerances to which she is not willing to trial drugs in those classes. So, will trial nadolol. We will then continue to monitor blood pressure overnight. If greater than 24 hours of adequate blood pressure control is identified on current medical therapy, will consider discharge. 2) Sinoatrial Node dysfunction- patient with pronounced response to moderate dose metoprolol/atenolol in the past (including heart rates in the 20s). We will continue telemetry monitoring this admission as beta-bebe is initiated. 3) PAD- previous iliac stents noted. On chronic Praluent with no current symptoms of claudication. 4) Tobacco Abuse- now abstaining from tobacco. 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 6) Chronic Pain- currently utilizing medical marijuana and low-dose NSAIDs. NSAIDs are typically considered contraindicated with patients with significant hypertension. However, given the significantlevel of her symptoms there may not be any other option. Thank you for involving me in the care of your patient, Nicolle Covington. If you have any questions regarding these recommendations, please feel free to contact me. Wilfredo Howell III, MD Department of Cardiology ADDENDUM: Patient given 1st dose of nadolol today. Heart rates dropped into the 40 beat per minute range with occasional rates into the 30s. We will continue telemetry monitoring now, discontinue beta-bebe, and continue to observe. Patient may have more significant sinoatrial node dysfunction than previously thought. This could be contributing as a cause of reflex hypertension. We will consider electrophysiology consultation ifcontinued significant bradycardia is identified. * Lemuel Moses DO - 11/09/2023 8:24 AM CDTAssociated Order(s): NEUROLOGY CONSULT Images from the original note were not included. [facility]. Neurology Consultation Note () Date of service: 11/09/2023 Diagnosis: hypertensive urgency Admit Date/Time: 11/08/2023 12:45 PM Attending: Filomena Lopes DO Chief Complaint: Headache History of Present Illness: Is a 68-year-old female with history of hypertension, right MCA and left PICA aneurysm (both unruptured), hyperlipidemia, lupus who presents for severe headache in the setting of hypertension with systolics greater than 200 mm Hg. She states compliance with her blood pressure medications but has had difficulty with lisinopril and has required dose adjustments. She has had severe headaches in the setting of hypertension in the past at times more severe than this one however she was very concerned and came in to be evaluated. She did not complain of any focal neurologic deficits including weakness numbness, dizziness, changes in hearing or vision, or loss of consciousness. Yesterday she notedsome left shoulder tightness that radiated into her arm but this is not present today. Initially blood pressure is was as high as 235, and she was started on low-dose nicardipine which quickly brought her blood pressure is down to 90/50. Her headache has resolved and she had not complained of any symptoms after the drastic reduction in blood pressure. Cardene was immediately stopped and blood pressure is today at an appropriate range between 120 and 160. She has not had any personal history of ruptured aneurysm or stroke. She states her mom of a stroke but does not know whether this was hemorrhagic or ischemic. She has seen a neurosurgeon in [facility] regarding her right MCA aneurysm but has been very nervous have brain surgery to address this.It appears the last time this was discussed with her was 2019. Past Medical History: No past medical history on file. No past surgical history on file. Current Inpatient Medications: Current Facility-Administered Medications Medication Dose Route Frequency acetaminophen (TYLENOL) tablet 650 mg 650 mg Oral Q6H PRN aspirin chewable tablet 81 mg 81 mg Oral Daily benzocaine-menthol (Chloraseptic) lozenge 1 Lozenge 1 Lozenge Oral Q2H PRN senna (SENOKOT) tablet 2 Tablet 2 Tablet Oral BID PRN And polyethylene glycol (MIRALAX) oral powder 17 g 17 g Oral DAILY PRN And bisacodyl (DULCOLAX) rectal suppository 10 mg 10 mg Rectal DAILY PRN calcium carbonate (TUMS) chewable tablet 500 mg 500 mg Oral Q4H PRN ezetimibe (ZETIA) tablet 10 mg 10 mg Oral Daily guaiFENesin (ROBITUSSIN) oral liquid 10 mL 10 mL Oral Q4H PRN HYDROcodone-acetaminophen (NORCO) 5-325 MG per tablet 1 Tablet 1 Tablet Oral Q4H PRN HYDROmorphone (DILAUDID) injection 0.2-0.4 mg 0.2-0.4 mg Intravenous Q2H PRN HYDROmorphone (DILAUDID) tablet 1-2 mg 1-2 mg Oral Q4H PRN hydroxychloroquine (PLAQUENIL) tablet 200 mg 200 mg Oral Daily medical cannabis patient supplied As Instructed PRN See Admin melatonin tablet 3 mg 3 mg Oral At bedtime PRN ondansetron (ZOFRAN-ODT) disintegrating tablet 4 mg 4 mg Oral Q6H PRN And ondansetron (ZOFRAN) injection 4 mg 4 mg Intravenous Q6H PRN And prochlorperazine (COMPAZINE) injection 5 mg 5 mg Intravenous Q6H PRN And metoclopramide (REGLAN) injection 5 mg 5 mg Intravenous Q6H PRN mycophenolate (CELLCEPT) tablet TABS 1,000 mg 1,000 mg Oral BID nystatin (MYCOSTATIN) 563234 UNIT/GM topical powder Topical BID PRN pantoprazole DR (PROTONIX) tablet 40 mg 40 mg Oral Daily at 6 am polyethyl-propylene glycol (SYSTANE) 0.4-0.3 % ophthalmic solution 1 Drop 1 Drop Both Eyes Q1H PRN predniSONE (DELTASONE) tablet 7.5 mg 7.5 mg Oral Daily sodium chloride (OCEAN) 0.65 % nasal solution 1 [place] 1 [place] Both Nostrils Q2H PRN sodium chloride 0.9% injection 10-60 mL 10-60 mL Intravenous PRN spironolactone (ALDACTONE) tablet 25 mg 25 mg Oral Daily Allergies: Fentanyl, Hydralazine, Infliximab, Amoxicillin-pot clavulanate, Duloxetine, Erythromycin, Gabapentin, Hydrochlorothiazide, Hydroxychloroquine, Sulfasalazine, Tetracycline, and Venlafaxine No family history on file. Social History Socioeconomic History Marital status: Single Spouse name: Not on file Number of children: Not on file Years of education: Not on file Highest education level: Not on file Occupational History Not on file Tobacco Use Smoking status: Former Types: Cigarettes Smokeless tobacco: Never Vaping Use Vaping status: Never Used Substance and Sexual Activity Alcohol use: Not Currently Drug use: Not on file Sexual activity: Not on file Other Topics Concern Not on file Social History Narrative Not on file Social Determinants of Health Financial Resource Strain: Low Risk (03/24/2023) Received from [facility] Financial Resource Strain Difficulty of Paying Living Expenses: 3 Difficulty of Paying Living Expenses: Not on file Food Insecurity: No Food Insecurity (11/08/2023) Hunger Vital Sign Worried About Running Out of Food in the Last Year: Never true Ran Out of Food in the Last Year: Never true Transportation Needs: No Transportation Needs (11/08/2023) PRAPARE - Transportation Lack of Transportation (Medical): No Lack of Transportation (Non-Medical): No Intimate Partner Violence: Unknown (11/08/2023) Humiliation, Afraid, Rape, and Kick questionnaire Fear of Current or Ex-Partner: Not on file Emotionally Abused: No Physically Abused: No Sexually Abused: No Housing Stability: Unknown (11/08/2023) Housing Stability Vital Sign Unable to Pay for Housing in the Last Year: No Number of Places Lived in the Last Year: Not on file Unstable Housing in the Last Year: No Review of Systems: A complete ROS was otherwise negative. Physical Examination: BP (!) 152/58 Pulse (!) 54 Temp 98 ??F (36.7 ??C) (Oral) Resp (!) 10 SpO2 95% Temp (24hrs), Av.2 ??F (36.8 ??C), Min:98 ??F (36.7 ??C), Max:98.3 ??F (36.8 ??C) GENERAL: Alert, no distress. CARDIAC: Regular rate. No murmurs. RESP: Clear to auscultation bilaterally. non labored breathing on room air. MSK: No gross deformities NEUROLOGIC: Mental Status/PSYCH: awake, alert, oriented to person, place, time and situation Speech clear without dysarthria. Names and repeats without difficulty. No aphasia. Mood and affect appropriate. . Cranial Nerves: Pupils equal.. Extraocular movement intact in all directions. Visual velasquez intact to direct confrontational testing in all quadrants. Facial sensation intact bilaterally. Face symmetric, with symmetric smile. Hearing intact to conversation. No dysarthria. Tongue protrudes midline. Symmetric shoulder shrug. Motor: strength 5/5 in all major muscle groups bilaterally. No pronator drift. Coordination: Intact [id number]. Finger tapping rapid and rhythmic. Sensory: Intact to light touch in all extremities; no extinction. Reflexes: 2+ and symmetric in the biceps, brachioradialis, patellar, and ankle. Gait: Narrow based, normal arm swing. Labs: Lab Results Component Value Date/Time WBC 6.1 11/09/2023 04:59 AM HGB 12.0 11/09/2023 04:59 AM RBC 3.98 11/09/2023 04:59 AM HCT 36.7 11/09/2023 04:59 AM PLTS 236 11/09/2023 04:59 AM Lab Results Component Value Date/Time BUN 28 (H) 11/09/2023 04:59 AM SODIUM 138 11/09/2023 04:59 AM K 4.0 11/09/2023 04:59 AM CHLORIDE 105 11/09/2023 04:59 AM BICARB 26 11/09/2023 04:59 AM GLUCOSE 89 11/09/2023 04:59 AM CREATININE 0.96 11/09/2023 04:59 AM GFR >60 11/09/2023 04:59 AM CA 10.2 11/09/2023 04:59 AM ANIONGAP 7 11/09/2023 04:59 AM Imaging: I personally reviewed the images and my own interpretation is as follows CTA with large 6-7 mm inferiorly directed irregularly shaped aneurysm at the right MCA bifurcation,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 female with difficult to control hypertension, unruptured aneurysmswho presents with severe headache in the setting of hypertension. I agree this is likely hypertensive urgency/emergency and she responded well to a nicardipine drip. I spoke to her at length regarding different options for addressing her risk of aneurysm rupture including clipping, coiling and blood pressure management. Overall I think her risk for rupturing her aneurysm is moderate to high giventhe location and morphology of the right MCA lesion and I recommend that she follows up with a neurosurgeon to have this addressed. Recommendations: 1. Headache resolved with blood pressure management, will defer to hospital medicine for further medication adjustment 2. Okay for daily neuro checks 3. I will message our schedulers to have her set up in the clinic meet with our neurosurgeons 4. No further neurologic workup at this time I appreciate the opportunity to assist in the care of this patient. Time spent with patient was 55 minutes, over 50% of which was spent in counseling and coordinating care. A foreign languages department chair was not used during this exam. Report Completed by: Lemuel Moses DO Neurology --- End of Report --- documented in this encounter OR Notes * H&P - Crow Howell PA-C - 11/08/2023 4:05 PM CDT [facility] Medicine History and Physical Date of Service: 11/08/2023 PCP: Dalton Canales MD HPI: Nicolle Covington is a 68 y.o. female with PMH of hypertension, hyperlipidemia, brain aneurysm and lupus who presents for evaluation of high blood pressure. Patient reports headaches for the past couple of weeks. She has had difficulty managing her high blood pressure as an outpatient. She saw Dr. Bean successfully and was taken off lisinopril and other medications due to lightheadedness. At that time she was recommended to be admitted she did not pursuethis. She recently started Cozaar, but blood pressure is still high. She takes some other blood pressure medications which she has a list of in the room. Her headache has been coming on gradually. She does not endorse some mild shortness on breath the past couple of weeks. She denies any vision changes, speech changes, weakness, sensation changes, chest pain, abdominal pain, fevers, dysuria. In the ED, afebrile, heart rates into the 50s - 80s, systolic blood pressure 210/71. BNP mildly elevated, troponin negative, other labs reassuring. CT of the head without any acute bleeding. CTA headand neck showing some vertebral artery atherosclerotic disease, what appear to be mostly stable aneurysms, 1 with the right middle cerebral artery, 1 with the left vertebral artery. No large vessel occlusion on CT head. Independent historian: Yes Past Medical Hx, Social Hx and Family Hx have been reviewed in chart. Pertinent for this hospitalization is documented above. Current outpatient medications: Current Outpatient Medications Medication Sig acetaminophen (TYLENOL 8 HOUR ARTHRITIS PAIN) 650 MG controlled release tablet alendronate (FOSAMAX) 70 MG tablet Take 1 Tablet (70 mg) by mouth once every week. Take 30 minutes before first [id number]. Avoid lying down for 30 minutes. aspirin (ASPIRIN 81) 81 MG chewable tablet carvedilol (COREG) 3.125 MG tablet Take 1 Tablet (3.125 mg) by mouth daily AND 2 Tablets (6.25 mg) every evening. cholecalciferol (VITAMIND3) 50 MCG (2000 UT) tablet Take 1 Tablet (2,000 Units) by mouth daily. clobetasol (TEMOVATE) 0.05 % cream 1 Application. drug not in computer ProOmega ezetimibe (ZETIA) 10 MG tablet Take 1 Tablet (10 mg) by mouth daily. hydroxychloroquine (PLAQUENIL) 200 MG tablet Take 1 Tablet (200 mg) by mouth daily. levothyroxine (SYNTHROID) 25 MCG tablet 1 tablet in the morning on an empty stomach Orally Once a day LORazepam (ATIVAN) 0.5 MG tablet Take by mouth. losartan (COZAAR) 100 MG tablet Take 1 Tablet (100 mg) by mouth daily. Magnesium Bisglycinate (MAG GLYCINATE OR) magnesium oxide (MAG-OX) 400 MG tablet 1 tablet as needed Orally Once a day medical cannabis patient certified Multiple Vitamin (MULTIVITAMINS OR) mycophenolate (CELLCEPT) 500 MG tablet Take 2 Tablets (1,000 mg) by mouth two times a day. Naltrexone HCl, Pain, (NALTREX) 4.5 MG CAPS omeprazole (PRILOSEC) 40 MG capsule Take 1 Capsule (40 mg) by mouth two times a day. ondansetron (ZOFRAN-ODT) 4 MG disintegrating tablet Take by mouth. PRALUENT 75 MG/ML SOAJ Inject subcutaneously. predniSONE (DELTASONE) 2.5 MG tablet Take 3 Tablets (7.5 mg) by mouth daily. probiotic (AKA SUPER PROBIOTIC) Take 2 Capsules by mouth daily. spironolactone (ALDACTONE) 25 MG tablet Take 1 Tablet (25 mg) by mouth daily. tacrolimus (PROTOPIC) 0.1 % ointment Apply topically two times a day. to affected areas as directed. triamcinolone acetonide (KENALOG) 0.025 % ointment Triamcinolone Acetonide triamcinolone acetonide (KENALOG) 0.1 % ointment Apply topically two times a day. To areas of rash Allergies: Fentanyl, Hydralazine, Infliximab, Amoxicillin-pot clavulanate, Duloxetine, Erythromycin, Gabapentin, Hydrochlorothiazide, Hydroxychloroquine, Sulfasalazine, Tetracycline, and Venlafaxine Review of Systems Pertinent items are noted in HPI. Objective: BP (!) 210/71 Pulse (!) 59 Temp 36.8 ??C (98.3 ??F) (Oral) Resp 15 SpO2 95% Weight: 10/13/23 : 57.2 kg (126 lb) General: NAD, appropriate eye contact. Skin: No grossly visible rash, lesions or jaundice. HEENT: Normocephalic, atraumatic, EOMI and PERRLA, no conjunctival icterus. Neck: Supple, no lymphadenopathy. Resp: No increased work of breathing, non labored on RA, CTAB. CV: S1/S2, RRR, no MRG, peripheral pulses intact, no peripheral edema. Abdomen: Soft, NT, ND, no organomegaly, no rebound or guarding, normoactive bowel sounds. Neuro: A&O x 3, CN II-XII grossly intact, face symmetric, no dysarthria or aphasia, full strength and sensation to bilateral upper and lower extremities, [id number] without any dysmetria or ataxia, [id number]-[id number] without any ataxia Results reviewed in Epic and pertinent results are as follows: Labs: Last BMP: Recent Labs 11/08/23 1304 CREATININE 0.89 GLUCOSE 109* BICARB 25 CHLORIDE 105 K 4.4 SODIUM 140 BUN 35* CA 11.0* GFR >60 Last CBC: Recent Labs 11/08/23 1304 WBC 7.8 RBC 4.23 HGB 13.1 HCT 39.5 MCV 93.4 RDW 13.5 PLTS 257 Last Troponin panel: Recent Labs 11/08/23 1304 TROP 0.01 Last BNP: Recent Labs 11/08/23 1304 BNP 198* Imaging: CTA head IMPRESSION: 1. No evidence for large vessel occlusion or severe stenosis of the major intracranial arterial vasculature. 2. No evidence for intracranial stenosis or enhancing intracranial lesions. 3. 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 4. 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 CTA neck IMPRESSION: 1. Right carotid system patent and nonstenotic. 25% short segment stenosis of the proximal left internal carotid artery. Remainder of left carotid system otherwise patent and nonstenotic. 2. Severe short segment stenosis of the right vertebral artery origin. Moderate to severe short segment stenosis of the distal cervical right vertebral artery at the C3-4 level. 3. 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 Reconstitution of flow within the left vertebral arteryat the C3-4 level. 4. Severe neural foraminal stenosis at the C2-3 level and the C3-4 level on the right CT head IMPRESSION: 1. Partial visualization of paranasal sinus postoperative changes. 2. Otherwise unremarkable unenhanced cranial CT examination. No evidence for acute intracranial hemorrhage. ECG: Sinus bradycardia, no significant interval changes, she does have what appears to be ST elevation in V3 and V4 but these are not greater than 2 mm (more around 1mm), compared to old EKG she had some ST elevation in V4 previously as well. ASSESSMENT/PLAN: Nicolle Covington is a 68 y.o. female who was admitted for hypertensive emergency. Hypertensive emergency Uncontrolled hypertension Patient presenting with headache for the past couple of weeks. Was directed by her cardiology team to be admitted given systolic pressures in the 210s at cardiology appointment on 11/07 in the a.m. in the ED, she has a headache and systolic blood pressure in the 230s. She also has known brain aneurysms, see below. Given her aneurysm and her headache I am treating this as hypertensive emergency and plan for admission to [address] [place] [address] and nicardipine drip. Of note, patient has multiple allergies to antihypertensives and has been on hydrochlorothiazide, atenolol, diltiazem, metoprolol, amlodipine, hydralazine in the past. See allergy list here. She is currently on losartan, Coreg, spironolactone. Of note patient does complain of some shortness on breath that has been ongoing for couple of weeks as well. EKG with some nonspecific changes as above, troponin negative, low suspicion for ACS as trop is negative. D/w physician colleagues who agrees with plan. 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, Coreg, spironolactone while on nicardipine drip - if heart rate does not allow nicardipine drip consider IV BRIAN/ARB and clonidine - cardiology consult, appreciate recommendations, okay to see on 11/08 - repeat troponin, EKG, obtain chest x-ray and echocardiogram Brain aneurysm - noted, this is chronic, no bleed on CT scan - discussed with Neurology, size appears to be stable - agree with blood pressure control as above - neurology will see patient tomorrow - monitor neuro status closely - I will hold blood thinning medications for now History of lupus - 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 CellCept, hydroxychloroquine, prednisone Anxiety - as prescribed lorazepam but has not started yet Hyperlipidemia - continue Zetia Social Determinants of Health adding to complexity of care: None Consults/Care Discussions: Neurology and Cardiology Notes Reviewed: ED clinician Diet: Regular IVF: None DVT Prophylaxis: Contraindicated Code Status: DNAR/DNI Code Status Information Source: Discussed with patient/family Med Rec Status: Done by Pharmacist I anticipate that the patient's hospitalization will span at least the next two midnights, and theyshould be admitted as an inpatient because of a higher risk of an adverse outcome due to hypertensive emergency. I estimate the length of stay to be 2-3 nights. Billing based on: Time Total time for the visit was 75 minutes including, but not limited to, cry-zxfc-lx-face time spent reviewing records, counseling, and coordination of care. This note was created with voice recognition software which may have resulted in unintended word substitutions. Crow Howell PA-C [facility] Medicine Pager: [phone] (also on Amion) documented in this encounter ED Notes * Debbie De Oliveira RN - 11/08/2023 7:47 PM CDT Spoke with hospitalist Crow Howell and gave verbal to hold the Nicardapine and still mainta placement to 2NS * Kayla Vázquez DO - 11/08/2023 1:08 PM CDT Emergency Center Note History of Present Illness Chief Complaint Hypertension HPI Nicolle Covington is a 68 y.o. female with history of hypertension, hyperlipidemia, brain aneurysmand lupus who presents to the ED via EMS for further evaluation of hypertension. Patient reports consistently high blood pressure that does not respond to medication. She states that she saw Dr. Howell on 09/25 where she was taken off of lisinopril and started on some other medications due to feelingsof lightheadedness. She also notes that she was told to be admitted 2 weeks ago. Patient reports shortness of breath when her blood pressure is high but denies any chest pain. Since starting Cozaar, patient reports headaches for the past 2 weeks and notes that she currently has one. Patient reportsnormal PO intake, normal bowel movements and denies urinary symptoms. Upon review of systems, reports 2 known aneurysms that have been under close observation, on is in the back of her head. Independent Historian None Review of External Notes Reviewed the cardiology note from today. Past Medical History Medical History and Problem List Fibromyalgia Hypertension Lupus Tobacco use disorder Osteoporosis SNHL (sensorineural hearing loss) AC (acromioclavicular) joint arthritis Adjustment disorder with depressed mood Age-related osteoporosis without current pathological fracture Brain aneurysm Stenosis of left carotid artery Chronic SI joint pain Frequent headaches Generalized anxiety disorder Hyperlipidemia Hypothyroidism Medical marijuana use Obstructive sleep apnea Onychomycosis of toenail Left-sided tinnitus Subacute cutaneous lupus erythematosus Tinea corporis Tubular adenoma Medications alendronate (FOSAMAX) 70 MG tablet aspirin (ASPIRIN 81) 81 MG chewable tablet carvedilol (COREG) 3.125 MG tablet ezetimibe (ZETIA) 10 MG tablet hydroxychloroquine (PLAQUENIL) 200 MG tablet levothyroxine (SYNTHROID) 25 MCG tablet LORazepam (ATIVAN) 0.5 MG tablet losartan (COZAAR) 100 MG tablet Magnesium Bisglycinate (MAG GLYCINATE OR) magnesium oxide (MAG-OX) 400 MG tablet mycophenolate (CELLCEPT) 500 MG tablet Naltrexone HCl, Pain, (NALTREX) 4.5 MG CAPS omeprazole (PRILOSEC) 40 MG capsule ondansetron (ZOFRAN-ODT) 4 MG disintegrating tablet PRALUENT 75 MG/ML SOAJ predniSONE (DELTASONE) 2.5 MG tablet spironolactone (ALDACTONE) 25 MG tablet Surgical History section Hysterectomy Procedure accessory sinuses Cataract removal, bilateral Rotator cuff repair, right Deltoid repair, right Esophagogastroduodenoscopy Carotid endarterectomy x2, bilateral Colonoscopy w/ polypectomy Physical Exam Triage Vitals Temp 11/08/23 1330 36.8 ??C (98.3 ??F) Temp src 11/08/23 1330 Oral Pulse 11/08/23 1321 66 Resp 11/08/23 1321 (!) 11 BP 11/08/23 1323 (!) 207/84 SpO2 11/08/23 1321 95 % Physical Exam Constitutional: Patient is alert and answering questions appropriately. HENT: Mouth/Throat: Oropharynx is clear and mucus membranes are normal. Eyes: No conjunctival injection. Cardiovascular: Normal rate, regular rhythm and normal heart sounds. Pulmonary/Chest: Breath sounds clear without wheezing, rhonchi or rales. Abdominal: Soft. There is no tenderness. There is no rebound and no guarding. Musculoskeletal: Normal range of motion. Neurological: No gross focal neurologic deficits. Skin: Skin is warm and dry. Vitals Trending Patient Vitals for the past 24 hrs: BP Temp Temp src Pulse Resp SpO2 11/08/23 1545 -- -- -- (!) 59 15 95 % 11/08/23 1530 (!) 210/71 -- -- 60 (!) 11 97 % 11/08/23 1500 (!) 189/75 -- -- (!) 58 14 96 % 11/08/23 1445 -- -- -- 63 18 95 % 11/08/23 1430 (!) 193/80 -- -- (!) 57 (!) 11 96 % 11/08/23 1400 (!) 195/88 -- -- 62 14 96 % 11/08/23 1345 -- -- -- 64 (!) 11 93 % 11/08/23 1330 (!) 198/72 36.8 ??C (98.3 ??F) Oral (!) 59 (!) 27 94 % 11/08/23 1323 (!) 207/84 -- -- 66 13 97 % 11/08/23 1321 -- -- -- 66 (!) 11 95 % Diagnostics Lab Results Results for orders placed or performed during the hospital encounter of 11/08/23 Basic Metabolic Panel Result Value Ref Range Sodium 140 136 - 145 mmol/L Potassium 4.4 3.5 - 5.1 mmol/L Chloride 105 98 - 109 mmol/L CO2 25 20 - 29 mmol/L Anion Gap 10 6 - 16 mmol/L Calcium 11.0 (H) 8.4 - 10.4 mg/dL BUN 35 (H) 7 - 26 mg/dL Creatinine 0.89 0.55 - 1.02 mg/dL Glucose 109 (H) 70 - 100 mg/dL GFR, Estimated >60 >60 mL/min/1.73m2 Extra Blue top tube Result Value Ref Range Extra Blue Top Drawn Specimen will be held for 24 hours Complete Blood Count-W/Diff Result Value Ref Range WBC 7.8 3.5 - 10.5 x10(9)/L RBC 4.23 3.90 - 5.03 x10(12)/L Hemoglobin 13.1 12.0 - 15.5 g/dL HCT 39.5 34.9 - 44.5 % MCV 93.4 80.0 - 100.0 fL MCH 31.0 27.6 - 33.3 pg MCHC 33.2 31.5 - 35.2 g/dL RDW 13.5 11.9 - 15.5 % Platelets 257 150 - 450 x10(9)/L Automated NRBC 0 <=0 /100 WBC Neutrophil Absolute 6.3 1.7 - 7.0 10(9)/L Lymphocyte Absolute 1.1 1.0 - 4.8 10(9)/L Monocyte Absolute 0.3 0.2 - 0.9 10(9)/L Eosinophil Absolute 0.0 0.0 - 0.5 10(9)/L Basophil Absolute 0.0 0.0 - 0.3 10(9)/L Immature Granulocyte % 0.5 0.0 - 0.5 % Troponin - Once STAT Result Value Ref Range Troponin I 0.01 0.00 - 0.03 ng/mL B-Type Natriuretic Peptide Result Value Ref Range B Type Natr. Peptide 198 (H) <=99 pg/mL ECG 12 Lead Result Value Ref Range Ventricular Rate 58 BPM Atrial Rate 58 BPM P-R Interval 170 ms QRS Duration 98 ms QT 380 ms QTc 373 ms P [place] 65 degrees R [place] 66 degrees T [place] [address] Angio Neck Head W IV Cont Final Result IMPRESSION INDICATION: sams, htn, known aneurysms TECHNIQUE: CT angiogram of the [place] of [place] and CT angiogram of the neck with IV contrast with 2D and 3D reformatting, 100 mL IOHEXOL 350 MG/ML IV SOLN. COMPARISON: Prior comparison CT angiographic images from 11/14/2021 are not available. 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 FINDINGS: CTA HEAD: Distal internal carotid arteries: Patent and nonstenotic. Anterior cerebral arteries: Patent and nonstenotic. Middle cerebral arteries: Patent and nonstenotic. Lobulated saccular aneurysm involving the right middle cerebral artery bifurcation directed anteriorly and inferiorly measuring 7.4 mm AP by 5.8 mm transverse by 9.3 mm craniocaudal dimension utilizing axial and coronal MPR images. 3 x 3 mm daughter aneurysm projecting from the inferior aspect of the main aneurysm. Aneurysm measurements car inclusive of the daughter aneurysm. Please see Lucas images. Posterior cerebral arteries: Patent and nonstenotic. Vertebrobasilar system: Patent and nonstenotic. 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 Please see Lucas images. IMPRESSION: 1. No evidence for large vessel occlusion or severe stenosis of the major intracranial arterial vasculature. 2. No evidence for intracranial stenosis or enhancing intracranial lesions. 3. 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 4. 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 CTA NECK: Right neck: Right carotid system patent and nonstenotic. Severe short segment stenosis of the right vertebral artery origin secondary to calcified atherosclerotic plaque. Moderate to severe short segment stenosis of the distal cervical right vertebral artery at the C3-4 level. Left neck: 25% short segment stenosis of the proximal left internal carotid artery. Remainder of left carotid system otherwise patent and nonstenotic. Possible segmental occlusions of the thoracic, proximal and mid cervical left vertebral artery with severe narrowing of the patent segments. Reconstitution of flow within the left vertebral artery at the C3-4 level which demonstrates a moderate to severe short segment stenosis at the C2-3 level. Arch: 20% short segment stenosis of the proximal and distal left subclavian artery. Aortic arch and remainder visualized arterial brachiocephalic vessels otherwise appear unremarkable. IMPRESSION: 1. Right carotid system patent and nonstenotic. 25% short segment stenosis of the proximal left internal carotid artery. Remainder of left carotid system otherwise patent and nonstenotic. 2. Severe short segment stenosis of the right vertebral artery origin. Moderate to severe short segment stenosis of the distal cervical right vertebral artery at the C3-4 level. 3. 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 Reconstitution of flow within the left vertebral artery at the C3-4 level. 4. Severe neural foraminal stenosis at the C2-3 level and the C3-4 level on the right CT Head WO IV Cont Final Result IMPRESSION COMPARISON: None. TECHNIQUE: Images of the head were obtained without contrast. FINDINGS: The ventricles, sulci and cisterns are normal size and configuration. No evidence for intracranial mass, intracranial attenuation abnormality, acute intracranial hemorrhage or extra-axial fluid collection. Visualized paranasal sinuses and mastoid air cells are unopacified bilaterally. Partial visualization of bilateral uncinectomies and inferior ethmoidectomies. IMPRESSION: 1. Partial visualization of paranasal sinus postoperative changes. 2. Otherwise unremarkable unenhanced cranial CT examination. No evidence for acute intracranial hemorrhage. EKG ECG Results ECG 12 Lead (Final result) Collection Time Result Time Ventricular Rate Atrial Rate P-R Interval QRS Duration QT QTc P [place] R [place] T [place] 11/08/23 13:08:39 11/08/23 15:53:17 58 58 170 98 380 373 65 66 68 Final result Narrative: Sinus bradycardia with marked sinus arrhythmia Anteroseptal infarct (cited on or before 08-NOV-2023) Abnormal ECG When compared with ECG of 26-AUG-2023 15:00, Questionable change in initial forces of Anterior leads Confirmed by Kayla Vázquez ([id number]) on 11/08/2023 3:53:[address] head shows no bleed. ED Course Medications Administered Medications iohexol (OMNIPAQUE 350) 350 MG/ML injection 100 mL (100 mL Intravenous Given 11/08/23 1424) sodium chloride 0.9% injection 10-60 mL (10 mL Intravenous Given 11/08/23 142) sodium chloride 0.9% bolus 100 mL (100 mL Intravenous Given 11/08/23 1423) HYDROcodone-acetaminophen (NORCO) 5-325 MG per tablet 1 Tablet (1 Tablet Oral Given 11/08/23 1508) Procedures None Discussion of Management None ED Course Clinical Impressions as of 11/08/23 1607 Hypertensive emergency Cerebral aneurysm without rupture Acute nonintractable headache, unspecified headache type Medical Decision Making / Diagnosis MIPS None [facility] Nicolle Covington is a 68 y.o. female who presents with blood pressure concerns. She has had hypertension for quite some time and she has had a lot of difficulty in the past controlling this. She has multiple intolerances to different blood pressure medications she also became hypotensive. They tried adjusting her medicines which hasn't been working well. Today she was seen at the cardiology clinic and due to the severe hypertension she was sent here. She does have symptoms of mild frontal headache from this but the headache is not severe. No chest pain, no shortness of breath. She did have labs checked recently which showed decreased renal function so she had signs concerning for acute kidney injury but today it is normalized. She has nothing to suggest acute coronary syndrome. Her EKG does not show any ischemic changes and her troponin is negative. I was also concerned about the headache because of her known aneurysm. Headache was not a sudden onset thunderclap headache. I do not feel her headaches is consistent with a bleed but with aneurysms history I did scan her head and did angiography studies. Head CT does not show any bleed. It does show her known aneurysm which is enlarged from her CT scan in 2021. I think she does need significantly improved management of her blood pressure. She has multiple allergies and intolerances though so it is quite difficult to manage. I don't feel the need to lower emergently here in the ER however I do think she needs admission to the hospital for further treatment. I will defer the medication dosing to the hospitalist service. Disposition Admitted to the hospitalist service. Diagnosis Final diagnoses: [I16.1] Hypertensive emergency [I67.1] Cerebral aneurysm without rupture [R51.9] Acute nonintractable headache, unspecified headache type I, Angelica X jonny Chicas serving as a scribe at 1:08 PM to document services personally performed by Kayla Vázquez DO, based on my observations and the provider's statements to me. 11/08/2023 [facility] Portions of this medical record were completed by a scribe. UPON MY REVIEW AND AUTHENTICATION BY ELECTRONIC SIGNATURE, this confirms (a) I performed the applicable clinical services, and (b) the record is accurate. Kayla Vázquez DO 11/08/231811 documented in this encounter Plan of Treatment Upcoming Encounters Date Type Department Care Team (Late st Contact Info) Description 12/15/2023 12:40 PM CDT Appointment [facility] [address] Cardiology [address] [place] [phone] Rosa Elena Huynh PA-C [address] [place], [place] [address] 12/22/2023 10:45 AM CDT Appointment [facility] [address] [place], [place] [phone] DesFreeman brand DO [address] [place], [place] [phone] 01/06/2024 1:30 PM CDT Appointment [facility] [address] Cardiology [address] [place] [phone] Wilfredo Howell III, MD [address] [place] [address] 01/24/2024 9:00 AM CDT Appointment [facility] Estrada [address] Electrophysiology [address] [place] [phone] Scheduled Orders Name Type Priority Associated Diagnoses Orde r Schedule ECG 12 Lead Inpatient EKG Routine ONC E for 1 Occurrences starting 11/08/2023 until 11/08/2023 Scheduled Referrals Name Type Priority Associated Diagnoses Orde r Schedule Neurosurgery (Non Spine) Consult-Adult Referral Routine Brain aneurysm Ordered: 11/10/2023 Primary Care Follow-Up Referral Routine Hypertensive emergency Ordered: 11/13/2023 documented as of this encounter Procedures Procedure Name Priority Date/Time Associated Diagnosis Comments BASIC METABOLIC PANEL Routine 11/13/2023 4:43 AM CDT ECG 12 LEAD INPATIENT Routine 11/12/2023 6:51 AM CDT BASIC METABOLIC PANEL Routine 11/12/2023 4:35 AM CDT XR CHEST 2 VIEWS Routine 11/11/2023 7:41 PM CDT ECG 12 LEAD INPATIENT STAT 11/11/2023 5:58 PM CDT PERMANENT PACEMAKER IMPLANTATION Routine 11/11/2023 3:24 PM CDT BASIC METABOLIC PANEL Routine 11/11/2023 4:48 AM CDT ECG 12 LEAD INPATIENT STAT 11/10/2023 2:08 PM CDT INPATIENT TELEMETRY MONITORING Routine 11/10/2023 9:18 AM CDT TREADMILL STRESS TEST (NO IMAGING) Routine 11/10/2023 7:52 AM CDT CBC AND DIFFERENTIAL PANEL Routine 11/10/2023 4:50 AM CDT COMPLETE BLOOD COUNT-W/DIFF Routine 11/10/2023 4:50 AM CDT BASIC METABOLIC PANEL Routine 11/10/2023 4:50 AM CDT TSH, SENSITIVE (WITH REFLEX) Add-On 11/10/2023 4:50 AM CDT INPATIENT TELEMETRY MONITORING Routine 11/09/2023 10:28 AM CDT INPATIENT TELEMETRY MONITORING Routine 11/09/2023 7:45 AM CDT ECHOCARDIOGRAM Routine 11/09/2023 6:53 AM CDT BASIC METABOLIC PANEL Routine 11/09/2023 4:59 AM CDT COMPLETE BLOOD COUNT-NO DIFF Routine 11/09/2023 4:59 AM CDT XR PORTABLE CHEST 1 VIEW Routine 11/08/2023 8:56 PM CDT MRSA, MOLECULAR DETECTION Routine 11/08/2023 8:35 PM CDT GLUCOSE, WHOLE BLOOD POCT Routine 11/08/2023 8:12 PM CDT TROPONIN I Specified Time 11/08/2023 7:[address] ANGIO NECK HEAD W IV CONT STAT 11/08/2023 2:[address] HEAD WO IV CONT STAT 11/08/2023 2: 23 PM CDT ECG 12 LEAD INPATIENT STAT 11/08/2023 1:08 PM CDT EXTRA BLUE TOP TUBE Routine 11/08/2023 1 :04 PM CDT CBC AND DIFFERENTIAL PANEL STAT 11/08/2023 1:04 PM CDT RAINBOW DRAW AND HOLD Routine 11/08/2023 1:04 PM CDT BRAIN NATRIURETIC PEPTIDE (BNP) STAT Add-On 11/08/2023 1:04 PM CDT COMPLETE BLOOD COUNT-W/DIFF STAT 11/08/2023 1:04 PM CDT BASIC METABOLIC PANEL STAT 11/08/2023 1:04 PM CDT TROPONIN I STAT Add-On 11/08/2023 1:04 PM CDT documented in this encounter Results * (ABNORMAL) Basic Metabolic Panel (11/13/2023 4:43 AM CDT) [facility] Sodium 138 136 - 145 mmol/L 11/13/2023 5:33 AM CDT [facility] Potassium 4.5 3.5 - 5.1 mmol/L 11/13/2023 5:33 AM CDT [facility] Chloride 110(H) 98 - 109 mmol/L 11/13/2023 5:33 AM CDT [facility] CO2 21 20 - 29 mmol/L 11/13/2023 5:33 AM CDT [facility] Anion Gap 7 6 - 16 mmol/L 11/13/2023 5:33 AM CDT [facility] Calcium 9.6 8.4 - 10.4 mg/dL 11/13/2023 5:33 AM CDT [facility] BUN 36(H) 7 - 26 mg/dL 11/13/2023 5:33 AM CDT [facility] Creatinine 1.29(H) 0.55 - 1.02 mg/dL 11/13/2023 5:33 AM CDT [facility] Glucose 90 70 - 100 mg/dL 11/13/2023 5:33 AM CDT [facility] Comment:The given reference range is for the fasting state. Non-fasting reference range for glucose is 70 - 180 mg/dL. GFR, Estimated 45(L) >60 mL/min/1.7 3m2 11/13/2023 5:33 AM CDT [facility] Blood Venipuncture / Unknown 11/13/2023 4:43 AM CDT 11/13/2023 5:01 AM CDT Narrative [facility] - 11/13/2023 5:33 AM CDT The National Kidney Disease Education Program suggests measuring Cystatin C in patients with eGFRcrea of 45 to 59 ml/min/1.73^2 who do not have other markers of kidney damage (i.e. elevated urine Albumin/Creatinine Ratio or a prior Cystatin C confirming the presence of chronic kidney disease). Stefanie Perez MD LAB_1 [facility] [address] * ECG 12 Lead Inpatient, On post-op day #1 (11/12/2023 6:51 AM CDT) Ventricular Rate 62 BPM [facility] Atrial Rate 62 BPM [facility] P-R Interval 204 ms [facility] QRS Duration 86 ms [facility] QT 414 ms [facility] QTc 420 ms [facility] P [place] 22 degrees [facility] R [place] 59 degrees [facility] T [place] 78 degrees [facility] 11/12/2023 6:51 AM CDT Narrative [facility] - 11/12/2023 1:46 PM CDT Atrial-paced rhythm Septal infarct (cited on or before 08-NOV-2023) Abnormal ECG When compared with ECG of 11-NOV-2023 17:58, Questionable change in initial forces of Anterior leads Confirmed by Gurpreet Ortega ([id number]) on 11/12/2023 1:46:55 PM Procedure Note Gurpreet Ortega DO - 11/12/2023 Atrial-paced rhythm Septal infarct (cited on or before 08-NOV-2023) Abnormal ECG When compared with ECG of 11-NOV-2023 17:58, Questionable change in initial forces of Anterior leads Confirmed by Gurpreet Ortega ([id number]) on 11/12/2023 1:46:55 PM Gilbert Grey MD PN ECG ORDERABLES [facility] [address] [place] [address] * (ABNORMAL) Basic Metabolic Panel (11/12/2023 4:35 AM CDT) Sodium 135(L) 136 - 145 mmol/L 11/12/2023 5:26 AM CDT [facility] Potassium 4.7 3.5 - 5.1 mmol/L 11/12/2023 5:26 AM CDT [facility] Chloride 108 98 - 109 mmol/L 11/12/2023 5:26 AM CDT [facility] CO2 20 20 - 29 mmol/L 11/12/2023 5:26 AM CDT [facility] Anion Gap 7 6 - 16 mmol/L 11/12/2023 5:26 AM CDT [facility] Calcium 9.2 8.4 - 10.4 mg/dL 11/12/2023 5:26 AM CDT [facility] BUN 37(H) 7 - 26 mg/dL 11/12/2023 5:26 AM CDT [facility] Creatinine 1.07(H) 0.55 - 1.02 mg/dL 11/12/2023 5:26 AM CDT [facility] Glucose 87 70 - 100 mg/dL 11/12/2023 5:26 AM CDT [facility] Comment:The given reference range is for the fasting state. Non-fasting reference range for glucose is 70 - 180 mg/dL. GFR, Estimated 56(L) >60 mL/min/1.7 3m2 11/12/2023 5:26 AM CDT [facility] Blood Venipuncture Butterfly / Unknown 11/12/2023 4:35 AM CDT 11/12/2023 5:04 AM CDT Narrative [facility] - 11/12/2023 5:26 AM CDT The National Kidney Disease Education Program suggests measuring Cystatin C in patients with eGFRcrea of 45 to 59 ml/min/1.73^2 who do not have other markers of kidney damage (i.e. elevated urine Albumin/Creatinine Ratio or a prior Cystatin C confirming the presence of chronic kidney disease). Stefanie Perez MD LAB_1 [facility] [address] [place], [place] [address] * XR Chest 2 Views (11/11/2023 7:41 PM CDT) Anatomical Region Laterality Modality Chest, Lung Digital Radiogra phy 11/11/2023 7:25 PM CDT Impressions 11/11/2023 7:54 PM CDT COMPARISON: ??10/10/2023 FINDINGS: New 2-lead pacer in satisfactory position. No pneumothorax. Lungs are clear. The remainder of the examination is stable. ?? Narrative Procedure Note Delbert Puente MD - 11/11/2023 IMPRESSION COMPARISON: 10/10/2023 FINDINGS: New 2-lead pacer in satisfactory position. No pneumothorax.Lungs are clear. The remainder of the examination is stable. Gilbert Grey MD RAD GD * ECG 12 Lead Inpatient Now (11/11/2023 5:58 PM CDT) Ventricular Rate 67 BPM [facility] Atrial Rate 67 BPM [facility] P-R Interval 186 ms [facility] QRS Duration 92 ms [facility] QT 412 ms [facility] QTc 435 ms [facility] P [place] 10 degrees [facility] R [place] 61 degrees [facility] T [place] 62 degrees [facility] 11/11/2023 5:58 PM CDT Narrative [facility] - 11/11/2023 9:21 PM CDT Atrial-paced rhythm Anteroseptal infarct (cited on or before 08-NOV-2023) Abnormal ECG When compared with ECG of 10-NOV-2023 14:08, Electronic atrial pacemaker has replaced Sinus rhythm Vent. rate has increased BY ??28 BPM Confirmed by Tatum Pugh ([id number]) on 11/11/2023 9:21:19 PM Procedure Note Tatum Pugh MD - 11/11/2023 Atrial-paced rhythm Anteroseptal infarct (cited on or before 08-NOV-2023) Abnormal ECG When compared with ECG of 10-NOV-2023 14:08, Electronic atrial pacemaker has replaced Sinus rhythm Vent. rate has increased BY 28 BPM Confirmed by Tatum Pugh ([id number]) on 11/11/2023 9:21:19 PM Gilbert Grey MD PN ECG ORDERABLES [facility] [address] [place] [id number] * Permanent Pacemaker Implantation (Inpatient) (11/11/2023 3:24 PM CDT) Narrative [facility] - 11/11/2023 3:24 PM CDT Gilbert Grey MD ? 11/11/2023 ??3:26 PM CARDIAC ELECTROPHYSIOLOGY PROCEDURE REPORT Cardiac Electrophysiology Service [facility] [place] Cardiac Itinerant Teacher Assistant: ??Gilbert Grey MD Date: 11/11/2023 PROCEDURES PERFORMED: Implantation of dual chamber permanent pacemaker Insertion of right atrial lead. Insertion of right ventricular lead. Recording of the His bundle electrogram Fluoroscopy for pacemaker lead positioning. Moderate sedation PRE-OPERATIVE DIAGNOSIS: ??sinus node dysfunction, chronotropic incompetence, symptomatic bradycardia. POST-OPERATIVE DIAGNOSES: ??Successful implantation of a dual chamber permanent pacemaker for the above diagnosis. PROCEDURAL DETAILS: I assessed the patient immediately prior to the procedure and found the patient to be an acceptable candidate for the planned procedure. Prior to the procedure I reviewed the indication for, the alternative management options to, and the risks of permanent pacemaker implantation (including but not limited to bleeding, pain, infection, vascular injury, pneumothorax, and cardiac perforation). ??After considering the risks and anticipated benefits the patient elected to proceed with pacemaker implant and provided informed consent. The patient was brought to the Cardiac Electrophysiology Laboratory in the fasting, non-sedated state. ?? Moderate sedation was administered under my supervision, as documented in the EP lab record, for greater than 60 minutes. ?? Please see the scanned Cardiac Electrophysiology Lab Flowsheet for the sedation record and other details of the procedure. ??A total of 3 mg midazolam and 0 mcg fentanyl was administered. The chest was prepped and draped in the usual sterile fashion. Location: ??Left pectoral region. Local anesthesia: ??local infiltration with 1% lidocaine and 0.25% bupivacaine. Incision site: ??A 10 blade was used to make a 5 cm horizontal incision approximately two cm below the clavicle. ??Electrocautery was used to dissect down to the pectoral fascia, and then inferiorly along the fascia to create a pocket for the device. ?? Hemostasis was maintained throughout with electrocautery. Subclavian vein access: was obtained under fluoroscopic guidance via an extrathoracic approach, using a micropuncture needle. ??A guidewire was inserted down to the level of the IVC. ??A second access was obtained in the same manner described above. Lead & device insertion: A 7 Fr peel away sheath was inserted over one of the guidewires. ?? The guidewire and dilator were removed. ??A Medtronic C315 sheath was advanced into the RV over a long guidewire. ??The guidewire and dilator were removed. ??A Medtronic 3830 lead was advanced through the C315 sheath to the basal RV septum. ??The lead was positioned slight distal to the location of the His bundle electrogram. ??Pacing here produced a w pattern in lead V1. ?? With a few turns of clockwise torque, the lead was advanced into the basal RV septum. ??Sensing, impedance, and pacing threshold were excellent. ??The C315 sheath was withdrawn from the lead tip and slit while ensuring stable lead position under fluoroscopy. ?? Lead parameters were unchanged after slitting the inner sheath. ?? The outer sheath was peeled away. ??Adequate slack in the lead was ensured during deep inspiration by the patient. ??The lead was secured to the underlying pectoral muscle with 0 Tevdek. A 7 Fr peel away sheath was inserted over the other guidewire. ??A Medtronic C315 sheath was advanced into the RA over a long guidewire. ??The guidewire and dilator were removed. ??A Medtronic 3830 lead was advanced through the sheath to the atrial septum and advanced into the myocardium with clockwise torque. ??Sensing, impedance, and pacing threshold were excellent. ??The inner sheath was withdrawn from the lead tip and slit while ensuring stable lead position under fluoroscopy. ??Lead parameters were unchanged after slitting the inner sheath. ??The outer sheath was peeled away. ??Adequate slack in the lead was ensured during deep inspiration by the patient. ??The lead was secured to the underlying pectoral muscle with 0 Tevdek. The leads were inserted into and secured in the pacemaker. ??The pocket was irrigated with an antibiotic solution. ??The device was placed in the pocket and sutured to the underlying pectoral muscle with 0 Tevdek. ??The sponge and needle count was verified prior to closure. ??Pocket closure was performed in three layers: a deep layer and then subcutaneous layer of 2-0 Vicryl suture and then a layer of subcuticular 4-0 Vicryl sutures. ??Dermabond tissue adhesive was applied over the incision. ??The device was programmed to its final settings. Complications: ??None. Estimated blood loss: ??<10 mL IMPLANTED DEVICE(S) AND PARAMETERS: New Permanent Pacemaker Pulse Generator: [employer] Dianne, model [id number] New Right Atrial Lead: ??Medtronic model 849658 Sensed P waves 4.1 mV, pacing threshold 1.2 V @ 0.5 ms, impedance 898 ohms. New Right Ventricular Lead: ??Medtronic model [id number] Sensed R waves 9.7 mV, pacing threshold 1.2 V @ 0.5 ms, impedance 627 ohms. Programming: ??AAIR-DDDR 60-130 PLAN: PA and lateral chest xray post procedure. Return to the bills for further management per the inpatient team. Activity restrictions and wound care instructions were reviewed with the patient. Will set up follow up in the device clinic to check surgical incision. Gilbert Grey MD Cardiac Electrophysiology Service Sharona White DISHCLOTH FOLDER, [employer] M[employer]UAL TICKET CHECKER PN ELECTROPHYSIO LOGY ORDERABLE [facility] [address] [place] [address] * (ABNORMAL) Basic Metabolic Panel (11/11/2023 4:48 AM CDT) Sodium 135(L) 136 - 145 mmol/L 11/11/2023 5:21 AM CDT [facility] Potassium 3.8 3.5 - 5.1 mmol/L 11/11/2023 5:21 AM CDT [facility] Chloride 106 98 - 109 mmol/L 11/11/2023 5:21 AM CDT [facility] CO2 20 20 - 29 mmol/L 11/11/2023 5:21 AM CDT [facility] Anion Gap 9 6 - 16 mmol/L 11/11/2023 5:21 AM CDT [facility] Calcium 9.9 8.4 - 10.4 mg/dL 11/11/2023 5:21 AM CDT [facility] BUN 38(H) 7 - 26 mg/dL 11/11/2023 5:21 AM CDT [facility] Creatinine 1.21(H) 0.55 - 1.02 mg/dL 11/11/2023 5:21 AM CDT [facility] Glucose 84 70 - 100 mg/dL 11/11/2023 5:21 AM CDT [facility] Comment:The given reference range is for the fasting state. Non-fasting reference range for glucose is 70 - 180 mg/dL. GFR, Estimated 49(L) >60 mL/min/1.7 3m2 11/11/2023 5:21 AM CDT [facility] Blood Venipuncture / Unknown 11/11/2023 4:48 AM CDT 11/11/2023 4:52 AM CDT Narrative [facility] - 11/11/2023 5:21 AM CDT The National Kidney Disease Education Program suggests measuring Cystatin C in patients with eGFRcrea of 45 to 59 ml/min/1.73^2 who do not have other markers of kidney damage (i.e. elevated urine Albumin/Creatinine Ratio or a prior Cystatin C confirming the presence of chronic kidney disease). Stefanie Perez MD LAB_1 [facility] [address] * STAT ECG 12 Lead Inpatient (11/10/2023 2:08 PM CDT) Ventricular Rate 39 BPM [facility] Atrial Rate 50 BPM [facility] P-R Interval 170 ms [facility] QRS Duration 86 ms [facility] QT 458 ms [facility] QTc 368 ms [facility] P [place] 53 degrees MUSE [facility] R [place] 71 degrees MUSE [facility] T [place] 70 degrees [facility] 11/10/2023 2:08 PM CDT Narrative [facility] - 11/10/2023 3:33 PM CDT Sinus bradycardia with PACs Septal infarct (cited on or before 08-NOV-2023) Abnormal ECG When compared with ECG of 08-NOV-2023 13:08, Vent. rate has decreased BY ??19 BPM Questionable change in initial forces of Anterior leads Confirmed by Gurpreet Ortega ([id number]) on 11/10/2023 3:33:03 PM Procedure Note Gurpreet Ortega DO - 11/10/2023 Sinus bradycardia with PACs Septal infarct (cited on or before 08-NOV-2023) Abnormal ECG When compared with ECG of 08-NOV-2023 13:08, Vent. rate has decreased BY 19 BPM Questionable change in initial forces of Anterior leads Confirmed by Gurpreet Ortega ([id number]) on 11/10/2023 3:33:03 PM Stefanie Perez MD PN ECG ORDERABLES Performing Organization Address [facility] de Phone Number [facility] [address] [place] [phone] * INPATIENT TELEMETRY MONITORING (11/10/2023 9:18 AM CDT) TELE P-R INTERVAL 0.17 [facility] TELE QRS DURATION 0.15 [facility] TELE R-R INTERVAL 1.39 [facility] TELE QT 0.50 [facility] TELE INTERPRETATION Sinus Fortino MENDEL Majano [facility] 11/10/2023 9:18 AM CDT Narrative [facility] - 11/10/2023 10:53 AM CDT Sinus Fortino ??Ирина Scott RN Interface Provider EKG Performing Organization Address [facility] Co de Phone Number [facility] [address] [place] [phone] * GXT Stress Test (11/10/2023 7:52 AM CDT) 11/10/2023 7:52 AM CDT Narrative [facility] - 11/10/2023 2:21 PM CDT Summary ??1. The patient exercised for ??4 minute(s) on the ??Modified Rey protocol and achieved 54 % of maximum predicted HR. ??Study was diagnostic. ??2. Below normal functional capacity for age. ??3. Based on Colón Score of 4 the patient is at Moderate risk for cardiovascular events. ??4. The patient experienced dyspnea (moderate to severe), shortness of breath and lightheaded/pre-syncope during the stress test. ??5. Sensitivity is reduced due to patient not reaching target heart rate. Automatic blood pressure cough had difficulty capturing BP during exercise. Treadmill was stopped due to difficulty breathing, and immediate manual blood pressure was measured at 246/88. Report Signatures Finalized by Mitzy Matos ?? on 11/10/2023 02:21 PM Procedure Note Mitzy Matos MD - 11/10/2023 Summary 1. The patient exercised for 4 minute(s) on the Modified Bruceprotocol and achieved 54 % of maximum predicted HR. Study wasdiagnostic. 2. Below normal functional capacity for age. 3. Based on Colón Score of 4 the patient is at Moderate risk forcardiovascular events. 4. The patient experienced dyspnea (moderate to severe), shortness ofbreath and lightheaded/pre-syncope during the stress test. 5. Sensitivity is reduced due to patient not reaching target heart rate.Automatic blood pressure cough had difficulty capturing BP duringexercise. Treadmill was stopped due to difficulty breathing, and immediatemanual blood pressure was measured at 246/88. Report Signatures Finalized by Mitzy Matos MD on 11/10/2023 02:21 PM Wilfredo Howell III, MD ET ECHO ORDERABL [facility] [address] [place], [place] [id number] * TSH with reflex to fT4 (not for treatment monitoring) (11/10/2023 4:50 AM CDT) TSH, Reflex 0.90 0.30 - 4.50 uIU/mL 11/10/2023 6:20 PM CDT [facility] Blood Venipuncture / Unknown 11/10/2023 4:50 AM CDT 11/10/2023 5:26 AM CDT [place] Vijay White APRN, DOM [facility] [address] [place] [address], [facility] * (ABNORMAL) Complete Blood Count-W/Diff (11/10/2023 4:50 AM CDT) WBC 5.8 3.5 - 10.5 x10(9)/L 11/10/2023 5:28 AM CDT [facility] RBC 3.84(L) 3.90 - 5.03 x10(12)/L 11/10/2023 5:28 AM CDT [facility] Hemoglobin 12.0 12.0 - 15.5 g/dL 11/10/2023 5:28 AM CDT [facility] HCT 35.8 34.9 - 44.5 % 11/10/2023 5:28 AM CDT [facility] MCV 93.2 80.0 - 100.0 fL 11/10/2023 5:28 AM CDT [facility] MCH 31.3 27.6 - 33.3 pg 11/10/2023 5:28 AM CDT [facility] MCHC 33.5 31.5 - 35.2 g/dL 11/10/2023 5:28 AM CDT [facility] RDW 13.5 11.9 - 15.5 % 11/10/2023 5:28 AM CDT [facility] Platelets 238 150 - 450 x10(9)/L 11/10/2023 5:28 AM CDT [facility] Automated NRBC 0 <=0 /100 WBC 11/10/2023 5:28 AM CDT [facility] Neutrophil Absolute 2.5 1.7 - 7.0 10(9)/L 11/10/2023 5:28 AM CDT [facility] Lymphocyte Absolute 2.3 1.0 - 4.8 10(9)/L 11/10/2023 5:28 AM CDT [facility] Monocyte Absolute 0.7 0.2 - 0.9 10(9)/L 11/10/2023 5:28 AM CDT [facility] Eosinophil Absolute 0.1 0.0 - 0.5 10(9)/L 11/10/2023 5:28 AM CDT [facility] Basophil Absolute 0.0 0.0 - 0.3 10(9)/L 11/10/2023 5:28 AM CDT [facility] Immature Granulocyte % 0.7(H) 0.0 - 0.5 % 11/10/2023 5:28 AM CDT [facility] Blood Venipuncture / Unknown 11/10/2023 4:50 AM CDT 11/10/2023 5:25 AM CDT Filomena Lopes LAB_1 [facility] [address] * (ABNORMAL) Basic Metabolic Panel (IN AM) (11/10/2023 4:50 AM CDT) Sodium 138 136 - 145 mmol/L 11/10/2023 5:58 AM CDT [facility] Potassium 4.1 3.5 - 5.1 mmol/L 11/10/2023 5:58 AM CDT [facility] Chloride 107 98 - 109 mmol/L 11/10/2023 5:58 AM CDT [facility] CO2 23 20 - 29 mmol/L 11/10/2023 5:58 AM CDT [facility] Anion Gap 8 6 - 16 mmol/L 11/10/2023 5:58 AM CDT [facility] Calcium 9.7 8.4 - 10.4 mg/dL 11/10/2023 5:58 AM CDT [facility] BUN 40(H) 7 - 26 mg/dL 11/10/2023 5:58 AM CDT [facility] Creatinine 1.18(H) 0.55 - 1.02 mg/dL 11/10/2023 5:58 AM CDT [facility] Glucose 81 70 - 100 mg/dL 11/10/2023 5:58 AM CDT [facility] Comment:The given reference range is for the fasting state. Non-fasting reference range for glucose is 70 - 180 mg/dL. GFR, Estimated 50(L) >60 mL/min/1.7 3m2 11/10/2023 5:58 AM CDT [facility] Blood Venipuncture / Unknown 11/10/2023 4:50 AM CDT 11/10/2023 5:26 AM CDT Narrative [facility] - 11/10/2023 5:58 AM CDT The National Kidney Disease Education Program suggests measuring Cystatin C in patients with eGFRcrea of 45 to 59 ml/min/1.73^2 who do not have other markers of kidney damage (i.e. elevated urine Albumin/Creatinine Ratio or a prior Cystatin C confirming the presence of chronic kidney disease). Filomena Lopes DO LAB_1 Performing Organization Address City/[facility]/ZIP Co de Phone Number [facility] [address] * INPATIENT TELEMETRY MONITORING (11/09/2023 10:28 AM CDT) TELE INTERPRETATION [facility] 11/09/2023 10:2 8 AM CDT Narrative [facility] - 11/09/2023 10:28 AM CDT [id number] Interface Provider EKG Performing Organization Address [facility]/ZIP Co de Phone Number [facility] [address] [place] [address] * INPATIENT TELEMETRY MONITORING (11/09/2023 7:45 AM CDT) TELE P-R INTERVAL 0.12 [facility] TELE QRS DURATION 0.05 [facility] TELE R-R INTERVAL 1.08 [facility] TELE QT 0.39 [facility] TELE INTERPRETATION Sinus Rhythm [facility] 11/09/2023 7:45 AM CDT Narrative [facility] - 11/09/2023 7:50 AM CDT Sinus Rhythm Interface Provider MD EKG [facility] [address] [place] [address] * Echocardiogram (11/09/2023 6:53 AM CDT) 11/09/2023 6:53 AM CDT Narrative PN ECHO - 11/09/2023 8:35 AM CDT Procedure type: ? ECHOCARDIOGRAM Procedure ? 11/09/2023 6:53 AM date/time: Facility[facility] Accession #: ?[id number] INDICATIONS Dyspnea/SOB. SUMMARY: Left ventricular ejection fraction is visually estimated at 65%. No significant valvular abnormalities were identified. Pulmonary artery systolic pressure estimate is 21mmHg above RAP. (Normal) . No prior. FINDINGS LEFT VENTRICLE: Left ventricular chamber size is normal. Mild (1.1-1.3 cm) concentric wall thickening consistent with left ventricular hypertrophy is present. Thickening of the anteroseptal septum [sigmoid septum] is present. Left ventricular ejection fraction is visually estimated at 65%. Normal left ventricular diastolic function for age. RIGHT VENTRICLE: Normal right ventricle size and normal global function. LEFT ATRIUM: Left atrial volume index is 33 mL/m^2. (Normal <34mL/m^2). Weakly positive bubble study. RIGHT ATRIUM: Normal right atrium. MITRAL VALVE: Mild mitral annular calcification. Normal mitral valve function. TRICUSPID VALVE: Normal tricuspid valve structure and function. Trace (physiologic) tricuspid regurgitation. Pulmonary artery systolic pressure estimate is 21mmHg above RAP. (Normal) . AORTIC VALVE: There is moderate aortic sclerosis. Mean gradient across the aortic valve: 5 mmHg. AORTA/GREAT VESSELS: The inferior vena cava is normal. PULMONARY VALVE: Normal pulmonic valve structure and function. PERICARDIUM & PLEURA: There is no pericardial effusion. LVOT LVOT diameter: ? 1.9 cm LVOT Area: ? 2.8 cm^2 AORTA Sinus of Valsalva: ? 3.06 cm Sinus of Valsalva Index: ? 1.85 cm/m MITRAL VALVE Peak E-wave: ? 55.1 cm/s Peak A-wave: ? 90 cm/s E/A ratio: ? 0.61 Deceleration time: ? 327 ms TRICUSPID VALVE TR velocity: ?2.3 m/s TR gradient: ?21 mmHg LEFT ATRIUM LA dimension (2D): ?3.5 cm LA Area (A4C): ?19.9 cm^2 LA Volume (BP): ? 54.8 ml LA Volume (BP) Index: ? 33.7 ml/m^2 LA Volume (A2C): ?47.5 ml LA Volume (A4C): ?57.2 ml LA Volume (A2C) Index: ?29.1 ml/m^2 LA Volume (A4C) Index: ?35.1 ml/m^2 LEFT VENTRICLE LVIDd (2D): ? 4.8 cm LVIDs (2D): ? 2.1 cm Septum diastolic (2D): ?0.9 cm Post wall diastolic (2D): ? 0.9 cm Rel wall thickness: ? 0.4 LV mass (ASE): ?146 g LV mass (ASE) Index: ?89.8 g/m^2 FS: ? 56 % LV DIASTOLIC FUNCTION E' septal velocity: ? 3.8 cm/s E' lateral velocity: ?6.1 cm/s A' septal velocity: ? 11 cm/s A' lateral velocity: ?13.5 cm/s E/E' Septal: ?14.7 E/E' Lateral: ? 9 E/E' Average: ? 11.8 LEFT VENTRICLE: M-MODE LVEDV (Teich): ?109.1 ml LVESV (Teich): ?14.9 ml EF (Teichholz): ? 86 % EF Estimated: ?60 % RIGHT VENTRICLE TAPSE: ?1.8 cm RV S' velocity: ? 13.2 cm/s IVC IVC inspiration: ?0.2 cm IVC expiration: ? 0.9 cm PROCEDURE 2-D Quality: Good quality 2-dimensional echo was performed and interpreted. Doppler Quality: Good quality pulse, continuous wave, and color Doppler was performed and interpreted. Contrast medium: ?Optison and Bubble Study: Saline Height: ? 65 in. Weight: ? 126 lb. Blood pressure: ? 0 / 0 mmHg BSA: ?1.6 m^2 BMI: ?21 kg/m^2 Rhythm: ? Sinus Procedure notes: *Suboptimal study; Echo dropout of the anterior, lateral, apical, septal, and inferior wall/s. 6 of 6 segments in standard apical 4 chamber, 3 chamber, 2 chamber view/s are not visualized on study. An image enhancer was used due to suboptimal endocardial definition. With the use of an image enhancer, the segments of the left ventricle were reasonably visualized. IV: Previously placed by Floor. DEMOGRAPHICS Patient name: ? JOSE Martinez Date of : ?1955 Age: ?68 year(s) Gender: ? Female Procedure Staff Interpreting Provider: ?? NILTON GARCIA MD Utility Accounts Director: ? Ordering Provider: ? JOLEEN Cisneros Attending Physician: ? KAYLA VÁZQUEZ DO Electronically signed by NILTON GARCIA MD (Interpreting Provider) on at 8:34 AM Procedure Note Nilton Garcia MD - 11/09/2023 Procedure type: ECHOCARDIOGRAM Procedure 11/09/2023 6:53 AM date/time: [facility] INDICATIONS Dyspnea/SOB. SUMMARY: Left ventricular ejection fraction is visually estimated at 65%. No significant valvular abnormalities were identified. Pulmonary artery systolic pressure estimate is 21mmHg above RAP. (Normal) . No prior. FINDINGS LEFT VENTRICLE: Left ventricular chamber size is normal. Mild (1.1-1.3 cm) concentric wall thickening consistent with left ventricular hypertrophy is present. Thickening of the anteroseptal septum [sigmoid septum] is present. Left ventricular ejection fraction is visually estimated at 65%. Normal left ventricular diastolic function for age. RIGHT VENTRICLE: Normal right ventricle size and normal global function. LEFT ATRIUM: Left atrial volume index is 33 mL/m^2. (Normal <34mL/m^2). Weakly positive bubble study. RIGHT ATRIUM: Normal right atrium. MITRAL VALVE: Mild mitral annular calcification. Normal mitral valve function. TRICUSPID VALVE: Normal tricuspid valve structure and function. Trace (physiologic) tricuspid regurgitation. Pulmonary artery systolic pressure estimate is 21mmHg above RAP. (Normal) . AORTIC VALVE: There is moderate aortic sclerosis. Mean gradient across the aortic valve: 5 mmHg. AORTA/GREAT VESSELS: The inferior vena cava is normal. PULMONARY VALVE: Normal pulmonic valve structure and function. PERICARDIUM & PLEURA: There is no pericardial effusion. LVOT LVOT diameter: 1.9 cm LVOT Area: 2.8 cm^2 AORTA Sinus of Valsalva: 3.06 cm Sinus of Valsalva Index: 1.85 cm/m MITRAL VALVE Peak E-wave: 55.1 cm/s Peak A-wave: 90 cm/s E/A ratio: 0.61 Deceleration time: 327 ms TRICUSPID VALVE TR velocity: 2.3 m/s TR gradient: 21 mmHg LEFT ATRIUM LA dimension (2D): 3.5 cm LA Area (A4C): 19.9 cm^2 LA Volume (BP): 54.8 ml LA Volume (BP) Index: 33.7 ml/m^2 LA Volume (A2C): 47.5 ml LA Volume (A4C): 57.2 ml LA Volume (A2C) Index: 29.1 ml/m^2 LA Volume (A4C) Index: 35.1 ml/m^2 LEFT VENTRICLE LVIDd (2D): 4.8 cm LVIDs (2D): 2.1 cm Septum diastolic (2D): 0.9 cm Post wall diastolic (2D): 0.9 cm Rel wall thickness: 0.4 LV mass (ASE): 146 g LV mass (ASE) Index: 89.8 g/m^2 FS: 56 % LV DIASTOLIC FUNCTION E' septal velocity: 3.8 cm/s E' lateral velocity: 6.1 cm/s A' septal velocity: 11 cm/s A' lateral velocity: 13.5 cm/s E/E' Septal: 14.7 E/E' Lateral: 9 E/E' Average: 11.8 LEFT VENTRICLE: M-MODE LVEDV (Teich): 109.1 ml LVESV (Teich): 14.9 ml EF (Teichholz): 86 % EF Estimated: 60 % RIGHT VENTRICLE TAPSE: 1.8 cm RV S' velocity: 13.2 cm/s IVC IVC inspiration: 0.2 cm IVC expiration: 0.9 cm PROCEDURE 2-D Quality: Good quality 2-dimensional echo was performed and interpreted. Doppler Quality: Good quality pulse, continuous wave, and color Doppler was performed and interpreted. Contrast medium: Optison and Bubble Study: Saline Height: 65 in. Weight: 126 lb. Blood pressure: 0 / 0 mmHg BSA: 1.6 m^2 BMI: 21 kg/m^2 Rhythm: Sinus Procedure notes: *Suboptimal study; Echo dropout of the anterior, lateral, apical, septal, and inferior wall/s. 6 of 6 segments in standard apical 4 chamber, 3 chamber, 2 chamber view/s are not visualized on study. An image enhancer was used due to suboptimal endocardial definition. With the use of an image enhancer, the segments of the left ventricle were reasonably visualized. IV: Previously placed by Floor. DEMOGRAPHICS Patient name: JOSE Martinez Date of : 1955 Age: 68 year(s) Gender: Female Procedure Staff Interpreting Provider: NILTON GARCIA MD Utility Accounts Director: EE Ordering Provider: JOLEEN Cisneros Attending Physician: KAYLA VÁZQUEZ DO Electronically signed by NILTON GARCIA MD (Interpreting Provider) on at 8:34 AM Crow Howell PA-C ET ECHO ORDERABLES PN ECHO * Complete Blood Count-No Diff (11/09/2023 4:59 AM CDT) WBC 6.1 3.5 - 10.5 x10(9)/L 11/09/2023 5:21 AM CDT [facility] RBC 3.98 3.90 - 5.03 x10(12)/L 11/09/2023 5:21 AM CDT [facility] Hemoglobin 12.0 12.0 - 15.5 g/dL 11/09/2023 5:21 AM CDT [facility] HCT 36.7 34.9 - 44.5 % 11/09/2023 5:21 AM CDT [facility] MCV 92.2 80.0 - 100.0 fL 11/09/2023 5:21 AM CDT [facility] MCH 30.2 27.6 - 33.3 pg 11/09/2023 5:21 AM CDT [facility] MCHC 32.7 31.5 - 35.2 g/dL 11/09/2023 5:21 AM CDT [facility] RDW 13.4 11.9 - 15.5 % 11/09/2023 5:21 AM CDT [facility] Platelets 236 150 - 450 x10(9)/L 11/09/2023 5:21 AM CDT [facility] Automated NRBC 0 <=0 /100 WBC 11/09/2023 5:21 AM CDT [facility] Blood Venipuncture / Unknown 11/09/2023 4:59 AM CDT 11/09/2023 5:17 AM CDT Crow Howell PA-C LAB_1 [facility] [address] [employer] [address] * (ABNORMAL) Basic Metabolic Panel (11/09/2023 4:59 AM CDT) Pathologist [facility] Sodium 138 136 - 145 mmol/L 11/09/2023 5:43 AM CDT [facility] Potassium 4.0 3.5 - 5.1 mmol/L 11/09/2023 5:43 AM CDT [facility] Chloride 105 98 - 109 mmol/L 11/09/2023 5:43 AM CDT [facility] CO2 26 20 - 29 mmol/L 11/09/2023 5:43 AM CDT [facility] Anion Gap 7 6 - 16 mmol/L 11/09/2023 5:43 AM CDT [facility] Calcium 10.2 8.4 - 10.4 mg/dL 11/09/2023 5:43 AM CDT [facility] BUN 28(H) 7 - 26 mg/dL 11/09/2023 5:43 AM CDT [facility] Creatinine 0.96 0.55 - 1.02 mg/dL 11/09/2023 5:43 AM CDT [facility] Glucose 89 70 - 100 mg/dL 11/09/2023 5:43 AM CDT [facility] Comment:The given reference range is for the fasting state. Non-fasting reference range for glucose is 70 - 180 mg/dL. GFR, Estimated >60 >60 mL/min/1.7 3m2 11/09/2023 5:43 AM CDT [facility] Blood Venipuncture / Unknown 11/09/2023 4:59 AM CDT 11/09/2023 5:17 AM CDT Crow Howell PA-C LAB_1 [facility] [address] * XR Portable Chest 1 View (11/08/2023 8:56 PM CDT) Anatomical Region Laterality Modality Chest, Lung Digital Radiogra phy 11/08/2023 8:42 PM CDT Impressions 11/08/2023 9:25 PM CDT COMPARISON: ??None. FINDINGS: Normal cardiomediastinal silhouette and pulmonary vasculature. Lungs appear clear. No pneumothorax or pleural effusion. Surgical clips in the right neck. Narrative Procedure Note Carlo Mejia MD - 11/08/2023 IMPRESSION COMPARISON: None. FINDINGS: Normal cardiomediastinal silhouette and pulmonary vasculature.Lungs appear clear. No pneumothorax or pleural effusion. Surgical clips inthe right neck. Crow Howell PA-C RAD PORTABLE * MRSA, Molecular Detection (11/08/2023 8:35 PM CDT) Pathologist [facility] MRSA Not Detected Not Detected 11/08/2023 9:53 PM CDT [facility] Swab (Source Required) ENTIRE ANTERIOR NARIS / Unknown Non-blood Collection / Unknown 11/08/2023 8:35 PM CDT 11/08/2023 8:39 PM CDT Narrative [facility] - 11/08/2023 9:53 PM CDT Methodology: Qualitative real-time PCR assay Christian Carter MD LAB_1 Performing Organization Address [facility]/ZIP Co de Phone Number [facility] [address] [place] [address] * Glucose, Whole Blood POCT (11/08/2023 8:12 PM CDT) [facility] Glucose, Whole Blood 86 70 - 180 mg/dL 11/08/2023 8:13 PM CDT [facility] Performing Location MT 2N/S 11/08/2023 8:13 PM CDT [facility] Blood 11/08/2023 8:12 PM CDT 11/08/2023 8:13 PM CDT Christian Carter MD LAB_1 Performing Organization Address [facility] Co de Phone Number [facility] [address] [place] [address] * (ABNORMAL) Troponin-I (11/08/2023 7:56 PM CDT) Pathologist [facility] Troponin I 0.06(H) 0.00 - 0.03 ng/mL 11/08/2023 8:33 PM CDT [facility] Blood Venipuncture / Unknown 11/08/2023 7:56 PM CDT 11/08/2023 8:00 PM CDT Crow Howell PA-C LAB_1 Performing Organization Address City/[facility]/ZIP Co de Phone Number [facility] [address] [place], [place] [id number] * CT Angio Neck Head W IV Cont (11/08/2023 2:23 PM CDT) Anatomical Region Laterality Modality Head, Vascular Computed Tomogra phy 11/08/2023 2:08 PM CDT Impressions 11/08/2023 3:23 PM CDT INDICATION: sams, htn, known aneurysms TECHNIQUE: CT angiogram of the [place] ??and CT angiogram of the neck with IV contrast with 2D and 3D reformatting, 100 mL IOHEXOL 350 MG/ML IV SOLN. ?? COMPARISON: ??Prior comparison CT angiographic images from 11/14/2021 are not available. 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 FINDINGS: CTA HEAD: Distal internal carotid arteries: Patent and nonstenotic. ? Anterior cerebral arteries: Patent and nonstenotic. ? Middle cerebral arteries: ??Patent and nonstenotic. Lobulated saccular aneurysm involving the right middle cerebral artery bifurcation directed anteriorly and inferiorly measuring 7.4 mm AP by 5.8 mm transverse by 9.3 mm craniocaudal dimension utilizing axial and coronal MPR images. 3 x 3 mm daughter aneurysm projecting from the inferior aspect of the main aneurysm. Aneurysm measurements car inclusive of the daughter aneurysm. Please see Lucas images. Posterior cerebral arteries: ??Patent and nonstenotic. ? Vertebrobasilar system: ??Patent and nonstenotic. 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 Please see Lucas images. IMPRESSION: 1. No evidence for large vessel occlusion or severe stenosis of the major intracranial arterial vasculature. 2. No evidence for intracranial stenosis or enhancing intracranial lesions. 3. 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 4. 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 CTA NECK: Right neck: Right carotid system patent and nonstenotic. Severe short segment stenosis of the right vertebral artery origin secondary to calcified atherosclerotic plaque. Moderate to severe short segment stenosis of the distal cervical right vertebral artery at the C3-4 level. Left neck: 25% short segment stenosis of the proximal left internal carotid artery. Remainder of left carotid system otherwise patent and nonstenotic. Possible segmental occlusions of the thoracic, proximal and mid cervical left vertebral artery with severe narrowing of the patent segments. Reconstitution of flow within the left vertebral artery at the C3-4 level which demonstrates a moderate to severe short segment stenosis at the C2-3 level. Arch: 20% short segment stenosis of the proximal and distal left subclavian artery. Aortic arch and remainder visualized arterial brachiocephalic vessels otherwise appear unremarkable. IMPRESSION: 1. Right carotid system patent and nonstenotic. 25% short segment stenosis of the proximal left internal carotid artery. Remainder of left carotid system otherwise patent and nonstenotic. 2. Severe short segment stenosis of the right vertebral artery origin. Moderate to severe short segment stenosis of the distal cervical right vertebral artery at the C3-4 level. 3. 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 Reconstitution of flow within the left vertebral artery at the C3-4 level. 4. Severe neural foraminal stenosis at the C2-3 level and the C3-4 level on the right Narrative Procedure Note Olivier Cramer MD - 11/08/2023 IMPRESSION INDICATION: sams, htn, known aneurysms TECHNIQUE: CT angiogram of the [place] and CT angiogram of theneck with IV contrast with 2D and 3D reformatting, 100 mL IOHEXOL 350MG/ML IV SOLN. COMPARISON: Prior comparison CT angiographic images from 11/14/2021 arenot available. 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 FINDINGS: CTA HEAD: Distal internal carotid arteries: Patent and nonstenotic. Anterior cerebral arteries: Patent and nonstenotic. Middle cerebral arteries: Patent and nonstenotic. Lobulated saccularaneurysm involving the right middle cerebral artery bifurcation directedanteriorly and inferiorly measuring 7.4 mm AP by 5.8 mm transverse by 9.3mm craniocaudal dimension utilizing axial and coronal MPR images. 3 x 3 mmdaughter aneurysm projecting from the inferior aspect of the mainaneurysm. Aneurysm measurements car inclusive of the daughter aneurysm.Please see Lucas images. Posterior cerebral arteries: Patent and nonstenotic. Vertebrobasilar system: Patent and nonstenotic. Small saccular aneurysminvolving the left vertebral artery immediately distal to the origin ofthe left posterior inferior cerebellar artery projecting superiorly andlaterally measuring 3.5 x 2.6 mm. Please see Lucas images. IMPRESSION: 1. No evidence for large vessel occlusion or severe stenosis of the majorintracranial arterial vasculature. 2. No evidence for intracranial stenosis or enhancing intracraniallesions. 3. 7.4 x 5.8 x 9.3 mm lobulated saccular aneurysm involving right middlecerebral artery bifurcation directed anteriorly and inferiorly. 4. 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 CTA NECK: Right neck: Right carotid system patent and nonstenotic. Severe short segment stenosis of the right vertebral artery originsecondary to calcified atherosclerotic plaque. Moderate to severe short segment stenosis of the distal cervical rightvertebral artery at the C3-4 level. Left neck: 25% short segment stenosis of the proximal left internal carotid artery. Remainder of left carotid system otherwise patent and nonstenotic. Possible segmental occlusions of the thoracic, proximal and mid cervicalleft vertebral artery with severe narrowing of the patent segments. Reconstitution of flow within the left vertebral artery at the C3-4 levelwhich demonstrates a moderate to severe short segment stenosis at the C2-3level. Arch: 20% short segment stenosis of the proximal and distal left subclavianartery. Aortic arch and remainder visualized arterial brachiocephalic vesselsotherwise appear unremarkable. IMPRESSION: 1. Right carotid system patent and nonstenotic. 25% short segment stenosisof the proximal left internal carotid artery. Remainder of left carotidsystem otherwise patent and nonstenotic. 2. Severe short segment stenosis of the right vertebral artery origin.Moderate to severe short segment stenosis of the distal cervical rightvertebral artery at the C3-4 level. 3. Multiple segmental occlusions of the thoracic, proximal and midcervical left vertebral artery with severe narrowing of the patentsegments. Reconstitution of flow within the left vertebral artery at theC3-4 level. 4. Severe neural foraminal stenosis at the C2-3 level and the C3-4 levelon the right Kayla Vázquez DO RAD CT * CT Head WO IV Cont (11/08/2023 2:23 PM CDT) Anatomical Region Laterality Modality Head Computed Tomogra phy 11/08/2023 2:08 PM CDT Impressions 11/08/2023 2:51 PM CDT COMPARISON: ??None. TECHNIQUE: ??Images of the head were obtained without contrast. FINDINGS: ??The ventricles, sulci and cisterns are normal size and configuration. No evidence for intracranial mass, intracranial attenuation abnormality, acute intracranial hemorrhage or extra-axial fluid collection. Visualized paranasal sinuses and mastoid air cells are unopacified bilaterally. Partial visualization of bilateral uncinectomies and inferior ethmoidectomies. IMPRESSION: 1. Partial visualization of paranasal sinus postoperative changes. 2. Otherwise unremarkable unenhanced cranial CT examination. No evidence for acute intracranial hemorrhage. Narrative Procedure Note Olivier Cramer MD - 11/08/2023 IMPRESSION COMPARISON: None. TECHNIQUE: Images of the head were obtained without contrast. FINDINGS: The ventricles, sulci and cisterns are normal size andconfiguration. No evidence for intracranial mass, intracranial attenuationabnormality, acute intracranial hemorrhage or extra-axial fluidcollection. Visualized paranasal sinuses and mastoid air cells areunopacified bilaterally. Partial visualization of bilateral uncinectomiesand inferior ethmoidectomies. IMPRESSION: 1. Partial visualization of paranasal sinus postoperative changes. 2. Otherwise unremarkable unenhanced cranial CT examination. No evidencefor acute intracranial hemorrhage. 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) Abnormal ECG When compared with ECG of 26-AUG-2023 15:00, Questionable change in initial forces of Anterior leads Confirmed by Kayla Vázquez ([id number]) on 11/08/2023 3:53:15 PM Procedure Note Kayla Vázquez DO - 11/08/2023 Sinus bradycardia with marked sinus arrhythmia 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 Peptide 198(H) <=99 pg/mL 11/08/2023 1:57 PM CDT [facility] Blood Venipuncture / Unknown 11/08/2023 1:04 PM CDT 11/08/2023 1:16 PM CDT Kayla Vázquez DO LAB_1 [facility] [address] * Troponin - Once STAT (11/08/2023 1:04 PM CDT) [facility] Troponin I 0.01 0.00 - 0.03 ng/mL 11/08/2023 1:51 PM CDT [facility] Blood Venipuncture / Unknown 11/08/2023 1:04 PM CDT 11/08/2023 1:15 PM CDT Kayla Vázquez DO LAB_1 [facility] [address] [employer] [address] * Complete Blood Count-W/Diff (11/08/2023 1:04 PM CDT) WBC 7.8 3.5 - 10.5 x10(9)/L 11/08/2023 1:19 PM CDT [facility] RBC 4.23 3.90 - 5.03 x10(12)/L 11/08/2023 1:19 PM CDT [facility] Hemoglobin 13.1 12.0 - 15.5 g/dL 11/08/2023 1:19 PM CDT [facility] HCT 39.5 34.9 - 44.5 % 11/08/2023 1:19 PM CDT [facility] MCV 93.4 80.0 - 100.0 fL 11/08/2023 1:19 PM CDT [facility] MCH 31.0 27.6 - 33.3 pg 11/08/2023 1:19 PM CDT [facility] MCHC 33.2 31.5 - 35.2 g/dL 11/08/2023 1:19 PM CDT [facility] RDW 13.5 11.9 - 15.5 % 11/08/2023 1:19 PM CDT [facility] Platelets 257 150 - 450 x10(9)/L 11/08/2023 1:19 PM CDT [facility] Automated NRBC 0 <=0 /100 WBC 11/08/2023 1:19 PM CDT [facility] Neutrophil Absolute 6.3 1.7 - 7.0 10(9)/L 11/08/2023 1:19 PM CDT [facility] Lymphocyte Absolute 1.1 1.0 - 4.8 10(9)/L 11/08/2023 1:19 PM CDT [facility] Monocyte Absolute 0.3 0.2 - 0.9 10(9)/L 11/08/2023 1:19 PM CDT [facility] Eosinophil Absolute 0.0 0.0 - 0.5 10(9)/L 11/08/2023 1:19 PM CDT [facility] Basophil Absolute 0.0 0.0 - 0.3 10(9)/L 11/08/2023 1:19 PM CDT [facility] Immature Granulocyte % 0.5 0.0 - 0.5 % 11/08/2023 1:19 PM CDT [facility] Blood Venipuncture / Unknown 11/08/2023 1:04 PM CDT 11/08/2023 1:16 PM CDT Jenaro Robles MD LAB_1 Performing Organization Address [facility]/ZIP Co de Phone Number [facility] [address] * Extra Blue top tube (11/08/2023 1:04 PM CDT) Pathologist [facility] Extra Blue Top Drawn Specimen will be held for 24 hours 11/08/2023 3:00 PM CDT [facility] Blood Venipuncture / Unknown 11/08/2023 1:04 PM CDT 11/08/2023 1:16 PM CDT Jenaro Robles MD LAB_1 Performing Organization Address [facility] de Phone Number [facility] [address] * (ABNORMAL) Basic Metabolic Panel (11/08/2023 1:04 PM CDT) [facility] Sodium 140 136 - 145 mmol/L 11/08/2023 1:47 PM CDT [facility] Potassium 4.4 3.5 - 5.1 mmol/L 11/08/2023 1:47 PM CDT [facility] Chloride 105 98 - 109 mmol/L 11/08/2023 1:47 PM CDT [facility] CO2 25 20 - 29 mmol/L 11/08/2023 1:47 PM CDT [facility] Anion Gap 10 6 - 16 mmol/L 11/08/2023 1:47 PM CDT [facility] Calcium 11.0(H) 8.4 - 10.4 mg/dL 11/08/2023 1:47 PM CDT [facility] BUN 35(H) 7 - 26 mg/dL 11/08/2023 1:47 PM CDT [facility] Creatinine 0.89 0.55 - 1.02 mg/dL 11/08/2023 1:47 PM CDT [facility] Glucose 109(H) 70 - 100 mg/dL 11/08/2023 1:47 PM CDT [facility] Comment:The given reference range is for the fasting state. Non-fasting reference range for glucose is 70 - 180 mg/dL. GFR, Estimated >60 >60 mL/min/1.7 3m2 11/08/2023 1:47 PM CDT [facility] Blood Venipuncture / Unknown 11/08/2023 1:04 PM CDT 11/08/2023 1:15 PM CDT Jenaro Robles MD LAB_1 [facility] [address] documented in this encounter Visit Diagnoses Diagnosis Hypertensive emergency- Primary Unspecified essential hypertension Hypertensive emergency Unspecified essential hypertension Cerebral aneurysm without rupture Cerebral aneurysm, nonruptured Acute nonintractable headache, unspecified headache type Chronic pain syndrome Brain aneurysm Cerebral aneurysm, nonruptured Lupus (HRC) Systemic lupus erythematosus Brain aneurysm Cerebral aneurysm, nonruptured Generalized anxiety disorder (HRC) Generalized anxiety disorder Chronotropic incompetence Other specified conduction disorder Sinus bradycardia Other specified cardiac dysrhythmias SSS (sick sinus syndrome) (HRC) Sinoatrial node dysfunction Cardiac pacemaker in situ * Plan of Care - Beau Flanagan RN - 11/10/2023 4:54 AM CDT Shift Summary [id number]: Cardiac: NSB. SBP goal <170, no intervention needed. GI/: Regular diet. Not much of an appetite. Ambulates to the bathroom. Resp: RA Skin: No issues Neuro: A&Ox4, neuros intact. *PLAN*: -Patient given 1st dose of nadolol today. Heart rates dropped into the 40 beat per minute range with occasional rates into the 30s. We will continue telemetry monitoring now, discontinue beta-bebe, and continue to observe. Patient may have more significant sinoatrial node dysfunction than previously thought. This could be contributing as a cause of reflex hypertension. We will consider electrophysiology consultation ifcontinued significant bradycardia is identified. Per Wilfredo Hill III, MD * Plan of Care - Danyell Simmons RN - 11/09/2023 6:14 PM CDT Shift Update [id number]: Patient reports feeling better today. Headache, PRN norco effective. ECHO this AM, EF 65%. SBP remains within goal. BP meds adjusted today. Patient bradycardic with rates 30s-50s. SBA to bathroom. Pthas low appetite. Unable to eat a lot of foods due to allergies. Will continue to monitor. * Plan of Care - Iwona Bland - 11/08/2023 5:50 PM CDT [facility] Medication History Note 1. Source(s) of Medication Information: Patient, Facility MAR or medication list, Care Everywhere 2. Pertinent Information: Recent prior to admission medication changes: Medications added: - Meloxicam (MOBIC) 15 MG tablet Medications deleted: - Clobetasol (TEMOVATE) 0.05% cream - Levothyroxine (SYNTHROID) 25 MCG tablet - Triamcinolone acetonide (KENALOG) 0.025% ointment - Tumeric 500 MG CAPS Medications changed: - Acetaminophen (TYLENOL 8 HOUR ARTHRITIS PAIN) 650 MG controlled release tablet: Added sig > Take 1 tablet by mouth every 8 hours as needed - Alendronate (FOSAMAX) 70 MG tablet: Added that patient takes medication on - Aspirin 81 MG chewable tablet > Patient takes non chewable dosage form and added sig > Take1 tablet by mouth daily - ProOmega Curcumin by [employer]: Added sig > Take 3 capsules by mouth daily - Lorazepam (ATIVAN) 0.5 MG tablet: Added dosage and frequency > Take 1 tablet by mouth as needed - Magnesium biglycinate (MAG GLYCINATE OR): Added sig > Take 1 capsule by mouth two times a day - Magnesium oxide (MAG-OX) 400 MG tablet: Added route of administration and frequency > Take 1 tablet by mouth daily as needed - Medical cannabis patient certified: Added strength, dosage form, and sig > Take 1 capsule by mouth two times daily as needed - Multiple vitamin (MULTIVITAMINS OR): Added sig > Take 1 capsule by mouth daily - Naltrexone HCl, pain, (NALTREX) 4.5 MG caps > Naltrexone HCl, pain, (NALTREX OR): Take 5.5 mg by mouth daily - Ondansetron (ZOFRAN-ODT) 4 MG disintegrating tablet: Take by mouth > Take 1 tablet by mouth every 6 hours as needed - Praluent 75 MG/ML SOAJ: Added frequency of administration > Inject subcutaneously every 14 days - Probiotic (AKA SUPER PROBIOTIC): Take 2 capsules by mouth daily > Take 1 capsule by mouth daily - Tacrolimus (PROTOPIC) 0.1% ointment: Apply topically two times a day to affected areas as needed > Apply topically as needed to affected areas as directed - Triamcinolone acetonide (KENALOG) 0.1% ointment: Apply topically two times a day to areas of rash> Apply topically as needed to areas of rash Compliance considerations: Patient manages her own medications and brought in a medication list that she typed up. She expressed concerns that the doctor may restart her on blood pressure controlling medications that she has had adverse reactions to in the past. 3. Outpatient Medications Marked as Taking: Outpatient Medications Marked as Taking for the 11/08/23 encounter (Hospital Encounter) Medication Sig Note Last Dose acetaminophen (TYLENOL 8 HOUR ARTHRITIS PAIN) 650 MG controlled release tablet Take 1 Tablet (650 mg) by mouth every 8 hours as needed. As Directed-PRN alendronate (FOSAMAX) 70 MG tablet Take 1 Tablet (70 mg) by mouth once every week. Take 30 minutes before first [id number]. Avoid lying down for 30 minutes. (Patient taking differently: Take 1 Tablet (70 mg) by mouth once every week. Take 30 minutes before first [id number] on mornings. Avoid lying down for 30 minutes.) 11/03/2023 aspirin EC 81 MG enteric coated tablet Take 1 Tablet (81 mg) by mouth daily. 11/07/2023 at PM carvedilol (COREG) 3.125 MG tablet Take 1 Tablet (3.125 mg) by mouth daily AND 2 Tablets (6.25 mg) every evening. 11/08/2023 at AM cholecalciferol (VITAMIND3) 50 MCG (2000 UT) tablet Take 1 Tablet (2,000 Units) by mouth daily. 11/07/2023 at PM drug not in computer Take by mouth daily. ProOmega Curcumin by [employer]: Take 3 capsules by mouth daily 11/08/2023 at AM ezetimibe (ZETIA) 10 MG tablet Take 1 Tablet (10 mg) by mouth daily. 11/07/2023 at PM hydroxychloroquine (PLAQUENIL) 200 MG tablet Take 1 Tablet (200 mg) by mouth daily. 11/08/2023 at AM LORazepam (ATIVAN) 0.5 MG tablet Take 1 Tablet (0.5 mg) by mouth as needed. at Has Not Taken Yet losartan (COZAAR) 100 MG tablet Take 1 Tablet (100 mg) by mouth daily. 11/08/2023 at 0830 Magnesium Bisglycinate (MAG GLYCINATE OR) Take 1 Capsule by mouth two times a day. 11/08/2023: Each capsule is 420 MG of magnesium glycinate 11/08/2023 at AM magnesium oxide (MAG-OX) 400 MG tablet Take 1 Tablet (400 mg) by mouth daily as needed. 11/08/2023 at AM medical cannabis patient certified Take 1 Capsule by mouth two times daily as needed. 11/08/2023: Each capsule is 10 MG of medical cannabis 11/08/2023 at AM Meloxicam (MOBIC) 15 MG tablet Take 1 Tablet (15 mg) by mouth daily. 11/08/2023 at AM Multiple Vitamin (MULTIVITAMINS OR) Take 1 Capsule by mouth daily. 11/08/2023 at AM mycophenolate (CELLCEPT) 500 MG tablet Take 2 Tablets (1,000 mg) by mouth two times a day. 11/08/2023 at AM Naltrexone HCl, Pain, (NALTREX OR) Take 5.5 mg by mouth daily. 11/07/2023 at PM omeprazole (PRILOSEC) 40 MG capsule Take 1 Capsule (40 mg) by mouth daily. 11/08/2023 at AM ondansetron (ZOFRAN-ODT) 4 MG disintegrating tablet Take 1 Tablet (4 mg) by mouth every 6 hours as needed. As Directed-PRN PRALUENT 75 MG/ML SOAJ Inject subcutaneously every 14 days. 10/30/2023 predniSONE (DELTASONE) 2.5 MG tablet Take 3 Tablets (7.5 mg) by mouth daily. 11/08/2023 at AM probiotic (AKA SUPER PROBIOTIC) Take 1 Capsule by mouth daily. 11/08/2023 at AM spironolactone (ALDACTONE) 25 MG tablet Take 1 Tablet (25 mg) by mouth daily. 11/08/2023 at 0830 tacrolimus (PROTOPIC) 0.1 % ointment Apply topically two times a day. to affected areas as directed. (Patient taking differently: Apply topically as needed. To affected areas as directed) As Directed-PRN triamcinolone acetonide (KENALOG) 0.1 % ointment Apply topically two times a day. To areas of rash (Patient taking differently: Apply topically as needed. To areas of rash) As Directed-PRN Thank you. This list represents the best possible medication history available at the time of note completion and should be used as a guide in reconciling home medications for hospital use. ? Electronically signed by Traci Grover [facility] at 11/08/2023 7:17 PM CDT * Triage Assessment Note - Chloe Santiago RN - 11/08/2023 12:52 PM CDT Patient arrives from [facility] for evaluation of hypertension. Per EMS report patient has had hypertension for the past month. Patient had SBP of 220 en route per medic. BG 120. DeniesCP. Complains of SAMS. documented in this encounter Administered Medications Inactive Administered Medications - up to 3 most recent administrations Medication Order MAR Action Action Date Dose Rate Site acetaminophen (TYLENOL) tablet 650 mg 650 mg, Oral, Q6H PRN, Pain/Fever, fever greater than 101 F, Starting on 11/08/23 at 2012, Until 11/13/23 at 1340, Give for mild pain (pain score 1-4) or if patient prefers acetaminophen over other options for pain (all pain scores). Given 11/13/2023 9:41 AM CDT 650 mg aspirin chewable tablet 81 mg 81 mg, Oral, DAILY, First dose on Tue11/09/23 at 2000, Until Discontinued Given 11/12/2023 8:30 PM CDT 81 mg Given 11/11/2023 7:48 PM CDT 81 mg Given 11/10/2023 8:28 PM CDT 81 mg bisacodyl (DULCOLAX) rectal suppository 10 mg 10 mg, Rectal, DAILY PRN, Constipation, No stool in the last 3 days, Starting on Tue11/08/23 at 2012, Until Tue11/13/23 at 1340, Cumulative bowel medication orders. Administer based on medications available on JUN. If no stool in last day start Senna BID PRN no stool, if no stool in last 2 days add Miralax DAILY PRN no stool, if no stool in last 3 days add bisacodyl suppository DAILY PRN until patient stools. When patient stools, stop giving PRN meds and continue monitoring for bowel activity. When no stools X 1 day, begin regimen again until patient stools. Do not give if Absolute Neutrophil Count (ANC) is 1 k/cmm or less OR platelet count is 50 k/cmm or less. carvedilol (COREG) tablet 6.25 mg 6.25 mg, Oral, BID WITH MEALS, First dose on Tue11/11/23 at 1700, Until Discontinued Given 11/13/2023 9:41 AM CDT 6.25 mg Given 11/12/2023 5:09 PM CDT 6.25 mg Given 11/12/2023 7:52 AM CDT 6.25 mg ceFAZolin (ANCEF) 2 g in dextrose 100 mL premade IVPB 2 g, Intravenous, Administer over 30 Minutes, ONCE, On Tue11/11/23 at 0830, For 1 dose, Infuse within 60 minutes prior to incision; No intraoperative re-dosing needed. Pharmacy may adjust for renal insufficiency. Dose should be sent to and administered in the Electrophysiology Lab., [facility] Card Started 11/11/2023 2:10 PM CDT 2 g 200 mL/hr ezetimibe (ZETIA) tablet 10 mg 10 mg, Oral, DAILY, First dose on Tue11/08/23 at 2100, Until Discontinued Given 11/12/2023 8:30 PM CDT 10 mg Given 11/11/2023 7:48 PM CDT 10 mg Given 11/10/2023 8:28 PM CDT 10 mg HYDROcodone-acetaminophen (NORCO) 5-325 MG per tablet 1 Tablet 1 Tablet, Oral, ONCE, On Tue11/08/23 at 1500, For 1 dose Given 11/08/2023 3:08 PM CDT 1 Tablet HYDROcodone-acetaminophen (NORCO) 5-325 MG per tablet 1 Tablet 1 Tablet, Oral, Q4H PRN, Pain, Moderate Pain (pain score 5-7), Starting on Tue11/08/23 at 2128, Until Tue11/13/23 at 1340 Given 11/10/2023 4:39 P M CDT 1 Tablet Given 11/09/2023 12:18 PM CDT 1 Tablet Given 11/09/2023 5:34 AM CDT 1 Tablet HYDROmorphone (DILAUDID) injection 0.2-0.4 mg 0.2-0.4 mg, Intravenous, Q2H PRN, Other, Moderate Pain (pain score 5-7) or Severe Pain (pain score 8-10), Starting on Tue11/08/23 at 2012, Until Tue11/13/23 at 1340, For moderate or severe pain not controlled by oral opioids or if patient is unable to take PO. Do NOT administer at the same time as PO opioids. May administer 2 hours after PO opioid administration if needed. Do not give if RR less than 8. Given 11/13/2023 6:08 AM CDT 0.4 mg Given 11/12/2023 8:29 PM CDT 0.4 mg Given 11/12/2023 3:06 AM CDT 0.2 mg hydroxychloroquine (PLAQUENIL) tablet 200 mg 200 mg, Oral, DAILY, First dose on Tue11/09/23 at 0800, Until Discontinued Given 11/13/2023 9:41 AM CDT 200 mg Given 11/12/2023 7:52 AM CDT 200 mg Given 11/11/2023 8:27 AM CDT 200 mg iohexol (OMNIPAQUE 350) 350 MG/ML injection 100 mL 100 mL, Intravenous, ONCE, On Tue11/08/23 at 1445, For 1 dose, Radiology Given 11/08/2023 2:24 PM CDT 100 mL losartan (COZAAR) tablet 100 mg 100 mg, Oral, DAILY, First dose (after last modification) on Tue11/10/23 at 0815, Until Discontinued Given 11/13/2023 9:41 AM CDT 100 mg Given 11/12/2023 7:52 AM CDT 100 mg Given 11/11/2023 8:27 AM CDT 100 mg losartan (COZAAR) tablet 50 mg 50 mg, Oral, DAILY, First dose on Tue11/09/23 at 1115, Until Discontinued Given 11/09/2023 12:18 PM CDT 50 mg medical cannabis patient supplied As Instructed, PRN SEE ADMIN INSTRUCTIONS, Starting on Tue11/08/23 at 2135, Until Tue11/13/23 at 1340, Other Self Administered 11/10/2023 6:30 AM CDT Self Administered 11/09/2023 8:30 PM CDT Self Administered 11/09/2023 7:45 AM CDT metoclopramide (REGLAN) injection 5 mg 5 mg, Intravenous, Q6H PRN, Nausea, Vomiting, Starting on Tue11/08/23 at 2012, Until Tue11/13/23 at 1340, Give 1st line medications, then 2nd line, then 3rd line. Progress to next line if medication is ineffective after 15 minutes, or has been previously ineffective, or if a medication for a line is not ordered. May use medication from any line if patient preference indicates. If 3rd line agent is ineffective, call Practitioner. If unable to give IV medications contact Practitioner. Aromatherapy may be used at any time as adjunct therapy. 1st Line - ondansetron (give ondansetron ODT (oral) if able to take oral, otherwise give IV) 2nd Line -prochlorperazine 3rd Line - metoclopramide mycophenolate (CELLCEPT) tablet TABS 1,000 mg 1,000 mg, Oral, BID, First dose on Tue11/08/23 at 2100, Until Discontinued, Do NOT crush medication and double glove with administration HAZARDOUS DRUG Preparation: Single glove Administration: If no touch, no PPE; if handling, single glove Given 11/13/2023 9:41 AM CDT 1,000 mg Given 11/12/2023 8:30 PM CDT 1,000 mg Given 11/12/2023 7:52 AM CDT 1,000 mg nadolol (CORGARD) tablet 40 mg 40 mg, Oral, DAILY, First dose on Tue11/09/23 at 0900, Until Discontinued Given 11/09/2023 9:57 AM CDT 40 mg niCARdipine (CARDENE) 50 mg in sodium chloride 0.9 % 250 mL (0.2 mg/mL) IV infusion 0-15 mg/hr (0-75 mL/hr), Intravenous, TITRATE, Starting on Tue11/08/23 at 1715, Starting Rate: 5mg/hr Goal: SBP less than 180 mmHg Titrate infusion rate by 2.5 mg/hr every 15 minutes to reach and maintain goal Once target is reached, may reduce rate by 1 to 2.5 mg/hr every 15 minutes to maintain goal. Use minimum effective dose to achieve and maintain goal. Contact practitioner if goals not met within parameters of order Rate/Dose Change 11/08/2023 9:00 PM CDT 2.5 mg/hr 12.5 mL/hr Started 11/08/2023 8:28 PM CDT 5 mg/hr 25 mL/hr Started 11/08/2023 5:38 PM CDT 5 mg/hr 25 mL/hr niCARdipine (CARDENE) 50 mg in sodium chloride 0.9 % 250 mL (0.2 mg/mL) IV infusion 0-15 mg/hr (0-75 mL/hr), Intravenous, TITRATE, Starting on Tue11/10/23 at 1445, Starting Rate: 5mg/hr Goal: SBP less than 180 mmHg Titrate infusion rate by 2.5 mg/hr every 15 minutes to reach and maintain goal Once target is reached, may reduce rate by 1 to 2.5 mg/hr every 15 minutes to maintain goal. Use minimum effective dose to achieve and maintain goal. Contact practitioner if goals not met within parameters of order Started 11/11/2023 10:11 AM CDT 2.5 mg/hr 12.5 mL/hr Rate/Dose Change 11/10/2023 4:39 PM CDT 2.5 mg/hr 12.5 mL /hr Started 11/10/2023 2:41 PM CDT 5 mg/hr 25 mL/hr ondansetron (ZOFRAN) injection 4 mg 4 mg, Intravenous, Q6H PRN, Nausea, Vomiting, Other, If unable to take ODT ondansetron, Starting on Tue11/08/23 at 2011, Until 11/13/23 at 1340, Give 1st line medications, then 2nd line, then 3rd line. Progress to next line if medication is ineffective after 15 minutes, or has been previously ineffective, or if a medication for a line is not ordered. May use medication from any line if patient preference indicates. If 3rd line agent is ineffective, call Practitioner. If unable to give IV medications contact Practitioner. Aromatherapy may be used at any time as adjunct therapy. 1st line: ondansetron (give ondansetron ODT (oral) if able to take oral, otherwise give IV) 2nd line: prochlorperazine 3rd line: metoclopramide ondansetron (ZOFRAN) injection 4 mg 4 mg, Intravenous, Q30MIN PRN, Nausea, Vomiting, Starting on Tue11/10/23 at 1600, Until Tue11/11/23 at 1604, For 2 doses, Repeat 4 mg dose 30 minutes after first dose if symptoms persist., Pre-Procedure Given 11/11/2023 3:33 PM CDT 4 mg ondansetron (ZOFRAN-ODT) disintegrating tablet 4 mg 4 mg, Oral, Q6H PRN, Vomiting, Nausea, Starting on Tue11/08/23 at 2011, Until 11/13/23 at 1340, Give 1st line medications, then 2nd line, then 3rd line. Progress to next line if medication is ineffective after 15 minutes, or has been previously ineffective, or if a medication for a line is not ordered. May use medication from any line if patient preference indicates. If 3rd line agent is ineffective, call Practitioner. If unable to give IV medications contact Practitioner. Aromatherapy may be used at any time as adjunct therapy. 1st line: ondansetron (give ondansetron ODT (oral) if able to take oral, otherwise give IV) 2nd line: prochlorperazine 3rd line: metoclopramide pantoprazole DR (PROTONIX) tablet 40 mg 40 mg, Oral, DAILY AT 0600, First dose on Tue11/09/23 at 0600, Until Discontinued Given 11/13/2023 6:06 AM CDT 40 mg Given 11/12/2023 7:57 AM CDT 40 mg Given 11/11/2023 6:38 AM CDT 40 mg perflutren protein A microsphere (OPTISON) injection 0.5-8.7 mL 0.5-8.7 mL, Intravenous, ONCE, On Tue11/09/23 at 0815, For 1 dose, Administer diluted OPTISON over the course of test. Dilute 3 mL of OPTISON with 7 mL saline, then administer 1 mL intravenous first dose, subsequent doses 0.2 mL intravenous every 2 minutes per set of pictures., [facility] Card Given 11/09/2023 7:53 AM CDT 1.5 mL polyethylene glycol (MIRALAX) oral powder 17 g 17 g, Oral, DAILY PRN, Constipation, No stool in the last 2 days, Starting on Tue11/08/23 at 2011, Until Tue11/13/23 at 1340, Cumulative bowel medication orders. Administer based on medications available on JUN. If no stool in last day start Senna BID PRN no stool, if no stool in last 2 days add Miralax DAILY PRN no stool, if no stool in last 3 days add bisacodyl suppository DAILY PRN until patient stools. When patient stools, stop giving PRN meds and continue monitoring for bowel activity. When no stools X 1 day, begin regimen again until patient stools. predniSONE (DELTASONE) tablet 7.5 mg 7.5 mg, Oral, DAILY, First dose on Tue11/09/23 at 0800, Last dose on Tue03/20/24 at 0800, For 133 days Given 11/13/2023 9:41 AM CDT 7.5 mg Given 11/12/2023 7:52 AM CDT 7.5 mg Given 11/11/2023 8:28 AM CDT 7.5 mg prochlorperazine (COMPAZINE) injection 5 mg 5 mg, Intravenous, Q6H PRN, Nausea, Vomiting, Starting on Tue11/08/23 at 2011, Until Tue11/13/23 at 1340, Give 1st line medications, then 2nd line, then 3rd line. Progress to next line if medication is ineffective after 15 minutes, or has been previously ineffective, or if a medication for a line is not ordered. May use medication from any line if patient preference indicates. If 3rd line agent is ineffective, call Practitioner. If unable to give IV medications contact Practitioner. Aromatherapy may be used at any time as adjunct therapy. 1st Line - ondansetron (give ondansetron ODT (oral) if able to take oral, otherwise give IV) 2nd Line -prochlorperazine 3rd Line - metoclopramide senna (SENOKOT) tablet 2 Tablet 2 Tablet, Oral, BID PRN, Constipation, No stool in the last day, Starting on Tue11/08/23 at 2012, Until Tue11/13/23 at 1340, Cumulative bowel medication orders. Administer based on medications available on JUN. If no stool in last day start Senna BID PRN no stool, if no stool in last 2 days add Miralax DAILY PRN no stool, if no stool in last 3 days add bisacodyl suppository DAILY PRN until patient stools. When patient stools, stop giving PRN meds and continue monitoring for bowel activity. When no stools X 1 day, begin regimen again until patient stools. sodium chloride 0.9% bolus 100 mL 100 mL, Intravenous, Administer over 1 Hours, ONCE, On Tue11/08/23 at 1445, For 1 dose, Radiology Given 11/08/2023 2:23 PM CDT 100 mL sodium chloride 0.9% infusion Intravenous, at 25 mL/hr, CONTINUOUS, Starting on Tue11/11/23 at 0830, Begin 1 hour prior to the scheduled procedure time., [facility] Card Started 11/11/2023 2:10 PM CDT 25 mL/hr sodium chloride 0.9% injection 10-60 mL 10-60 mL, Intravenous, ONCE, On Tue11/08/23 at 1445, For 1 dose, Radiology Given 11/08/2023 2:24 PM CDT 10 mL sodium chloride 0.9% injection 10-60 mL 10-60 mL, Intravenous, PRN, Line Patency, Line Care, Starting on Tue11/09/23 at 0752, Until Tue11/11/23 at 1604, Pre-Procedure Given 11/10/2023 6:34 PM CDT 10 mL Given 11/09/2023 7:53 AM CDT 10 mL sodium chloride 0.9% injection 10-60 mL 10-60 mL, Intravenous, PRN, Line Patency, Line Care, Starting on Tue11/11/23 at 1753, Until Tue11/13/23 at 1340, Post-Procedure sodium chloride 0.9% with KCL 20 mEq/L infusion Intravenous, at 75 mL/hr, CONTINUOUS, Starting on Tue11/11/23 at 1745 Subsequent Bag 11/12/2023 6:51 AM CDT 75 mL/hr Rate/Dose Verify 11/12/2023 6:00 AM CDT 75 mL/h r Rate/Dose Verify 11/12/2023 4:00 AM CDT 75 mL/h r spironolactone (ALDACTONE) tablet 25 mg 25 mg, Oral, DAILY, First dose on Tue11/09/23 at 0800, Until Discontinued, HAZARDOUS DRUG Preparation: Single glove Administration: If no touch, no PPE; if handling, single glove Given 11/13/2023 9:41 AM CDT 25 mg Given 11/12/2023 7:52 AM CDT 25 mg Given 11/11/2023 8:29 AM CDT 25 mg documented in this encounter Active and Recently Administered Medications Times are shown in CDT. Scheduled Medication Order 11/11/2023 11/12/2023 11/13/2023 aspirin chewable tablet 81 mg 81 mg, Oral, DAILY, First dose on Tue11/09/23 at 2000, Until Discontinued 194 (Given - Provider: Atiya Ryan, MENDEL) 2030 (Given - Provider: Atiya Ryan, MENDEL) carvedilol (COREG) tablet 6.25 mg 6.25 mg, Oral, BID WITH MEALS, First dose on Tue11/11/23 at 1700, Until Discontinued 170 (Given - Provider: Atiya Ryan, MENDEL) 0752 (Given - Provider: Ben Luciano, MENDEL)1709 (Given - Provider: Ben Luciano, RN) 0941 (Given - Provider: Ben Luciano, RN) ceFAZolin (ANCEF) 2 g in dextrose 100 mL premade IVPB (COMPLETED) 2 g, Intravenous, Administer over 30 Minutes, ONCE, On Tue11/11/23 at 0830, For 1 dose, Infuse within 60 minutes prior to incision; No intraoperative re-dosing needed. Pharmacy may adjust for renal insufficiency. Dose should be sent to and administered in the Electrophysiology Lab., [facility] Card 1410 (Started - Provider: Shani Zavala RN)1440 (Infused - Provider: Shani Zavala RN) ezetimibe (ZETIA) tablet 10 mg 10 mg, Oral, DAILY, First dose on Tue11/08/23 at 2100, Until Discontinued 1947 (Given - Provider: Atiya Ryan RN) 2029 (Given - Provider: Atiya Ryan RN) hydroxychloroquine (PLAQUENIL) tablet 200 mg 200 mg, Oral, DAILY, First dose on Tue11/09/23 at 0800, Until Discontinued 826 (Given - Provider: Ben Luciano RN) 075 (Given - Provider: Ben Luciano RN) 09 (Given - Provider: Ben Luciano RN) losartan (COZAAR) tablet 100 mg 100 mg, Oral, DAILY, First dose (after last modification) on Tue11/10/23 at 0815, Until Discontinued 826 (Given - Provider: Ben Luciano RN) 751 (Given - Provider: Ben Luciano RN) 09 (Given - Provider: Ben Luciano RN) mycophenolate (CELLCEPT) tablet TABS 1,000 mg 1,000 mg, Oral, BID, First dose on Tue11/08/23 at 2100, Until Discontinued, Do NOT crush medication and double glove with administration HAZARDOUS DRUG Preparation: Single glove Administration: If no touch, no PPE; if handling, single glove 826 (Given - Provider: Ben Luciano RN)1947 (Given - Provider: Atiya Ryan RN) 751 (Given - Provider: Ben Luciano RN)2029 (Given - Provider: Atiya Ryan RN) 09 (Given - Provider: Ben Luciano RN) pantoprazole DR (PROTONIX) tablet 40 mg 40 mg, Oral, DAILY AT 0600, First dose on Tue11/09/23 at 0600, Until Discontinued 0638 (Given - Provider: Ai Thayer RN) 075 (Given - Provider: Ben Luciano RN) 06 (Given - Provider: Atiya Ryan RN) predniSONE (DELTASONE) tablet 7.5 mg 7.5 mg, Oral, DAILY, First dose on Tue11/09/23 at 0800, Last dose on Tue03/20/24 at 0800, For 133 days 0828 (Given - Provider: Ben Luciano RN) 0752 (Given - Provider: Ben Luciano, RN) 0941 (Given - Provider: Ben Luciano, RN) spironolactone (ALDACTONE) tablet 25 mg 25 mg, Oral, DAILY, First dose on Tue11/09/23 at 0800, Until Discontinued, HAZARDOUS DRUG Preparation: Single glove Administration: If no touch, no PPE; if handling, single glove 0829 (Given - Provider: Ben Luciano, RN) 0752 (Given - Provider: Ben Luciano, MENDEL) 0941 (Given - Provider: Ben Luciano RN) Continuous Medication Order 11/11/2023 11/12/2023 11/13/2023 niCARdipine (CARDENE) 50 mg in sodium chloride 0.9 % 250 mL (0.2 mg/mL) IV infusion (CANCELED) 0-15 mg/hr (0-75 mL/hr), Intravenous, TITRATE, Starting on Nila 11/10/23 at 1445, Starting Rate: 5mg/hr Goal: SBP less than 180 mmHg Titrate infusion rate by 2.5 mg/hr every 15 minutes to reach and maintain goal Once target is reached, may reduce rate by 1 to 2.5 mg/hr every 15 minutes to maintain goal. Use minimum effective dose to achieve and maintain goal. Contact practitioner if goals not met within parameters of order 1011 (Started - Provider: Mt Michaud RN)1200 (Stopped - Provider: Ben Luciano RN) sodium chloride 0.9% infusion (CANCELED) Intravenous, at 25 mL/hr, CONTINUOUS, Starting on Tue11/11/23 at 0830, Begin 1 hour prior to the scheduled procedure time., [facility] Card 1410 (Started - Provider: Shani Zavala RN)1530 (Infused - Provider: Shani Zavala RN) sodium chloride 0.9% with KCL 20 mEq/L infusion (CANCELED) Intravenous, at 75 mL/hr, CONTINUOUS, Starting on Tue11/11/23 at 1745 1835 (Started - Provider: Atiya Ryan RN)2200 (Rate/Dose Verify - Provider: Atiya Ryan RN) 0000 (Rate/Dose Verify - Provider: Atiya Ryan RN)0200 (Rate/Dose Verify - Provider: Atiya Ryan RN)0400 (Rate/Dose Verify - Provider: Atiya Ryan RN)0600 (Rate/Dose Verify - Provider: Atiya Ryan RN)0651 (Subsequent Bag - Provider: Atiya Ryan RN)1035 (Stopped - Provider: Ben Luciano, RN) PRN Medication Order 11/11/2023 11/12/2023 11/13/2023 acetaminophen (TYLENOL) tablet 650 mg 650 mg, Oral, Q6H PRN, Pain/Fever, fever greater than 101 F, Starting on Tue11/08/23 at 2011, Until 11/13/23 at 1340, Give for mild pain (pain score 1-4) or if patient prefers acetaminophen over other options for pain (all pain scores). 0941 (Given - Provider: Ben Luciano, MENDEL) benzocaine-menthol (Chloraseptic) lozenge 1 Lozenge 1 Lozenge, Oral, Q2H PRN, Throat Pain, Starting on Tue11/08/23 at 2011, Until 11/13/23 at 1340 bisacodyl (DULCOLAX) rectal suppository 10 mg(Linked Group 1) 10 mg, Rectal, DAILY PRN, Constipation, No stool in the last 3 days, Starting on Tue11/08/23 at 2011, Until 11/13/23 at 1340, Cumulative bowel medication orders. Administer based on medications available on JUN. If no stool in last day start Senna BID PRN no stool, if no stool in last 2 days add Miralax DAILY PRN no stool, if no stool in last 3 days add bisacodyl suppository DAILY PRN until patient stools. When patient stools, stop giving PRN meds and continue monitoring for bowel activity. When no stools X 1 day, begin regimen again until patient stools. Do not give if Absolute Neutrophil Count (ANC) is 1 k/cmm or less OR platelet count is 50 k/cmm or less. calcium carbonate (TUMS) chewable tablet 500 mg 500 mg, Oral, Q4H PRN, Heartburn, Upset Stomach, Starting on Tue11/08/23 at 2011, Until Tue11/13/23 at 1340, Each tablet provides 200 mg elemental calcium guaiFENesin (ROBITUSSIN) oral liquid 10 mL 10 mL, Oral, Q4H PRN, Cough, Starting on Tue11/08/23 at 2011, Until Tue11/13/23 at 1340 HYDROcodone-acetaminophen (NORCO) 5-325 MG per tablet 1 Tablet 1 Tablet, Oral, Q4H PRN, Pain, Moderate Pain (pain score 5-7), Starting on Tue11/08/23 at 2128, Until Tue11/13/23 at 1340 HYDROmorphone (DILAUDID) injection 0.2-0.4 mg 0.2-0.4 mg, Intravenous, Q2H PRN, Other, Moderate Pain (pain score 5-7) or Severe Pain (pain score 8-10), Starting on Tue11/08/23 at 2011, Until Tue11/13/23 at 1340, For moderate or severe pain not controlled by oral opioids or if patient is unable to take PO. Do NOT administer at the same time as PO opioids. May administer 2 hours after PO opioid administration if needed. Do not give if RR less than 8. 0306 (Given - Provider: Aitya Ryan RN)2029 (Given - Provider: Atiya Ryan RN) 0608 (Given - Provider: Atiya Ryan RN) HYDROmorphone (DILAUDID) tablet 1-2 mg 1-2 mg, Oral, Q4H PRN, Other, Moderate Pain (pain score 5-7) or Severe Pain (pain score 8-10), Starting on Tue11/08/23 at 2011, Until Tue11/13/23 at 1340, For moderate or severe pain. Do NOT administer at the same time as IV opioids. May administer 2 hours after IV opioid administration. Do not give if RR less than 8. medical cannabis patient supplied As Instructed, PRN SEE ADMIN INSTRUCTIONS, Starting on Tue11/08/23 at 2135, Until Tue11/13/23 at 1340, Other melatonin tablet 3 mg 3 mg, Oral, HS PRN, Other, Mild insomnia, Starting on Tue11/08/23 at 2011, Until 11/13/23 at 1340 metoclopramide (REGLAN) injection 5 mg(Linked Group 2) 5 mg, Intravenous, Q6H PRN, Nausea, Vomiting, Starting on Tue11/08/23 at 2011, Until 11/13/23 at 1340, Give 1st line medications, then 2nd line, then 3rd line. Progress to next line if medication is ineffective after 15 minutes, or has been previously ineffective, or if a medication for a line is not ordered. May use medication from any line if patient preference indicates. If 3rd line agent is ineffective, call Practitioner. If unable to give IV medications contact Practitioner. Aromatherapy may be used at any time as adjunct therapy. 1st Line - ondansetron (give ondansetron ODT (oral) if able to take oral, otherwise give IV) 2nd Line -prochlorperazine 3rd Line - metoclopramide nystatin (MYCOSTATIN) [id number] UNIT/GM topical powder Topical, BID PRN, Other, for rash due to yeast, Starting on Tue11/08/23 at 2011, Apply topically to affected area. Hazardous waste disposal required. ondansetron (ZOFRAN) injection 4 mg(Linked Group 2) 4 mg, Intravenous, Q6H PRN, Nausea, Vomiting, Other, If unable to take ODT ondansetron, Starting on Tue11/08/23 at 2011, Until 11/13/23 at 1340, Give 1st line medications, then 2nd line, then 3rd line. Progress to next line if medication is ineffective after 15 minutes, or has been previously ineffective, or if a medication for a line is not ordered. May use medication from any line if patient preference indicates. If 3rd line agent is ineffective, call Practitioner. If unable to give IV medications contact Practitioner. Aromatherapy may be used at any time as adjunct therapy. 1st line: ondansetron (give ondansetron ODT (oral) if able to take oral, otherwise give IV) 2nd line: prochlorperazine 3rd line: metoclopramide ondansetron (ZOFRAN) injection 4 mg (CANCELED) 4 mg, Intravenous, Q30MIN PRN, Nausea, Vomiting, Starting on Tue11/10/23 at 1600, Until Tue11/11/23 at 1604, For 2 doses, Repeat 4 mg dose 30 minutes after first dose if symptoms persist., Pre-Procedure 1533 (Given - Provider: Shani Zavala RN) ondansetron (ZOFRAN-ODT) disintegrating tablet 4 mg(Linked Group 2) 4 mg, Oral, Q6H PRN, Vomiting, Nausea, Starting on Tue11/08/23 at 2011, Until Tue11/13/23 at 1340, Give 1st line medications, then 2nd line, then 3rd line. Progress to next line if medication is ineffective after 15 minutes, or has been previously ineffective, or if a medication for a line is not ordered. May use medication from any line if patient preference indicates. If 3rd line agent is ineffective, call Practitioner. If unable to give IV medications contact Practitioner. Aromatherapy may be used at any time as adjunct therapy. 1st line: ondansetron (give ondansetron ODT (oral) if able to take oral, otherwise give IV) 2nd line: prochlorperazine 3rd line: metoclopramide polyethyl-propylene glycol (SYSTANE) 0.4-0.3 % ophthalmic solution 1 Drop 1 Drop, Both Eyes, Q1H PRN, Dry Eyes, Itchy Eyes, Starting on Tue11/08/23 at 2011, Until Tue11/13/23 at 1340 polyethylene glycol (MIRALAX) oral powder 17 g(Linked Group 1) 17 g, Oral, DAILY PRN, Constipation, No stool in the last 2 days, Starting on Tue11/08/23 at 2011, Until Tue11/13/23 at 1340, Cumulative bowel medication orders. Administer based on medications available on JUN. If no stool in last day start Senna BID PRN no stool, if no stool in last 2 days add Miralax DAILY PRN no stool, if no stool in last 3 days add bisacodyl suppository DAILY PRN until patient stools. When patient stools, stop giving PRN meds and continue monitoring for bowel activity. When no stools X 1 day, begin regimen again until patient stools. prochlorperazine (COMPAZINE) injection 5 mg(Linked Group 2) 5 mg, Intravenous, Q6H PRN, Nausea, Vomiting, Starting on Tue11/08/23 at 2011, Until Tue11/13/23 at 1340, Give 1st line medications, then 2nd line, then 3rd line. Progress to next line if medication is ineffective after 15 minutes, or has been previously ineffective, or if a medication for a line is not ordered. May use medication from any line if patient preference indicates. If 3rd line agent is ineffective, call Practitioner. If unable to give IV medications contact Practitioner. Aromatherapy may be used at any time as adjunct therapy. 1st Line - ondansetron (give ondansetron ODT (oral) if able to take oral, otherwise give IV) 2nd Line -prochlorperazine 3rd Line - metoclopramide senna (SENOKOT) tablet 2 Tablet(Linked Group 1) 2 Tablet, Oral, BID PRN, Constipation, No stool in the last day, Starting on Tue11/08/23 at 2011, Until Tue11/13/23 at 1340, Cumulative bowel medication orders. Administer based on medications available on JUN. If no stool in last day start Senna BID PRN no stool, if no stool in last 2 days add Miralax DAILY PRN no stool, if no stool in last 3 days add bisacodyl suppository DAILY PRN until patient stools. When patient stools, stop giving PRN meds and continue monitoring for bowel activity. When no stools X 1 day, begin regimen again until patient stools. sodium chloride (OCEAN) 0.65 % nasal solution 1 [place] 1 [place], Both Nostrils, Q2H PRN, Dry Nose, Starting on Tue11/08/23 at 2011, Until Tue11/13/23 at 1340 sodium chloride 0.9% injection 10-60 mL 10-60 mL, Intravenous, PRN, Line Patency, Line Care, Starting on Tue11/11/23 at 1753, Until Tue11/13/23 at 1340, Post-Procedure Linked Groups Order Group 1: senna (SENOKOT) tablet 2 TabletJump to med 2 Tablet, Oral, BID PRN, Constipation, No stool in the last day, Starting on Tue11/08/23 at 2011, Until Tue11/13/23 at 1340, Cumulative bowel medication orders. Administer based on medications available on JUN. If no stool in last day start Senna BID PRN no stool, if no stool in last 2 days add Miralax DAILY PRN no stool, if no stool in last 3 days add bisacodyl suppository DAILY PRN until patient stools. When patient stools, stop giving PRN meds and continue monitoring for bowel activity. When no stools X 1 day, begin regimen again until patient stools. And polyethylene glycol (MIRALAX) oral powder 17 gJump to med 17 g, Oral, DAILY PRN, Constipation, No stool in the last 2 days, Starting on Tue11/08/23 at 2011, Until 11/13/23 at 1340, Cumulative bowel medication orders. Administer based on medications available on JUN. If no stool in last day start Senna BID PRN no stool, if no stool in last 2 days add Miralax DAILY PRN no stool, if no stool in last 3 days add bisacodyl suppository DAILY PRN until patient stools. When patient stools, stop giving PRN meds and continue monitoring for bowel activity. When no stools X 1 day, begin regimen again until patient stools. And bisacodyl (DULCOLAX) rectal suppository 10 mgJump to med 10 mg, Rectal, DAILY PRN, Constipation, No stool in the last 3 days, Starting on Tue11/08/23 at 2011, Until 11/13/23 at 1340, Cumulative bowel medication orders. Administer based on medications available on JUN. If no stool in last day start Senna BID PRN no stool, if no stool in last 2 days add Miralax DAILY PRN no stool, if no stool in last 3 days add bisacodyl suppository DAILY PRN until patient stools. When patient stools, stop giving PRN meds and continue monitoring for bowel activity. When no stools X 1 day, begin regimen again until patient stools. Do not give if Absolute Neutrophil Count (ANC) is 1 k/cmm or less OR platelet count is 50 k/cmm or less. Group 2: ondansetron (ZOFRAN-ODT) disintegrating tablet 4 mgJump to med 4 mg, Oral, Q6H PRN, Vomiting, Nausea, Starting on Tue11/08/23 at 2011, Until 11/13/23 at 1340, Give 1st line medications, then 2nd line, then 3rd line. Progress to next line if medication is ineffective after 15 minutes, or has been previously ineffective, or if a medication for a line is not ordered. May use medication from any line if patient preference indicates. If 3rd line agent is ineffective, call Practitioner. If unable to give IV medications contact Practitioner. Aromatherapy may be used at any time as adjunct therapy. 1st line: ondansetron (give ondansetron ODT (oral) if able to take oral, otherwise give IV) 2nd line: prochlorperazine 3rd line: metoclopramide And ondansetron (ZOFRAN) injection 4 mgJump to med 4 mg, Intravenous, Q6H PRN, Nausea, Vomiting, Other, If unable to take ODT ondansetron, Starting on Tue11/08/23 at 2011, Until Tue11/13/23 at 1340, Give 1st line medications, then 2nd line, then 3rd line. Progress to next line if medication is ineffective after 15 minutes, or has been previously ineffective, or if a medication for a line is not ordered. May use medication from any line if patient preference indicates. If 3rd line agent is ineffective, call Practitioner. If unable to give IV medications contact Practitioner. Aromatherapy may be used at any time as adjunct therapy. 1st line: ondansetron (give ondansetron ODT (oral) if able to take oral, otherwise give IV) 2nd line: prochlorperazine 3rd line: metoclopramide And prochlorperazine (COMPAZINE) injection 5 mgJump to med 5 mg, Intravenous, Q6H PRN, Nausea, Vomiting, Starting on Tue11/08/23 at 2011, Until Tue11/13/23 at 1340, Give 1st line medications, then 2nd line, then 3rd line. Progress to next line if medication is ineffective after 15 minutes, or has been previously ineffective, or if a medication for a line is not ordered. May use medication from any line if patient preference indicates. If 3rd line agent is ineffective, call Practitioner. If unable to give IV medications contact Practitioner. Aromatherapy may be used at any time as adjunct therapy. 1st Line - ondansetron (give ondansetron ODT (oral) if able to take oral, otherwise give IV) 2nd Line -prochlorperazine 3rd Line - metoclopramide And metoclopramide (REGLAN) injection 5 mgJump to med 5 mg, Intravenous, Q6H PRN, Nausea, Vomiting, Starting on Tu11/08/23 at 2012, Until 11/13/23 at 1340, Give 1st line medications, then 2nd line, then 3rd line. Progress to next line if medication is ineffective after 15 minutes, or has been previously ineffective, or if a medication for a line is not ordered. May use medication from any line if patient preference indicates. If 3rd line agent is ineffective, call Practitioner. If unable to give IV medications contact Practitioner. Aromatherapy may be used at any time as adjunct therapy. 1st Line - ondansetron (give ondansetron ODT (oral) if able to take oral, otherwise give IV) 2nd Line -prochlorperazine 3rd Line - metoclopramide documented in this encounter Care Teams [employer] Manager Relationship Specialty Start Date End Date Dalton Canales MD [address] [place] [address] PCP - General Family Practice 06/23/23 documented as of this encounter
--- OUTSIDE RECORDS SUMMARY | 2023-12-12 20:26 | XMS_ITS | Encounter Summary ---
Author Organization [facility] Address [address] [place] [address] Care Team Providers Care Toe Former [employer] Name Role Phone Dalton Esqueda MD Primary Care Provider [phone] Reason for Visit * Reason Comments Hypertension Encounter Details Date Type Department Care Team (Late st Contact Info) Description 11/17/2023 [facility] [address] [place], [place] [id number] Wilfredo Howell III, MD [address] [place], [place] [id number] Hypertension Social History Tobacco Use Types Packs/Day Years Used Date Smoking Tobacco: Former Cigarettes Smokeless Tobacco: Never Alcohol Use Standard Drinks/Week Comments Not Currently 0 (1 standard drink = 0.6 oz pur e alcohol) [facility] Utilities Answer Date Recorded In the past 12 months has [facility] [employer], gas, oil, or water [employer] threatened to shut off services in your [...] as of this encounter Progress Notes * Madelaine Alvarez RN - 11/28/2023 10:57 AM CDTAddended by: MADELAINE ALVAREZ on: 11/28/2023 10:57 AM Modules accepted: Orders documented in this encounter Nursing Notes * Madelaine Alvarez RN - 12/08/2023 10:22 AM CDT Nicolle has followed up with Yanci since we spoke with BP updates. * Madelaine Alvarez RN - 11/28/2023 10:49 AM CDT BP after stopping nifedipine 159/65 AFTER taking morning medication. Other examples of BP at various times of day before and after BP medication were all >150/70, HR: 110 bpm. Nicolle is agreeable to increase carvedilol as suggested by Francia Huynh. * Madelaine Alvarez RN - 11/24/2023 2:48 PM CDT IF BP still elevated I would have her increase carvedilol to 12.5 mg BID as she has a PPM now. * Madelaine Alvarez RN - 11/23/2023 2:[address] Travis Feldman please advise in Dr. Robles and Dr. Howell's absence Nicolle reports she started nifedipine and developed dizziness and headache. She states she was so dizzy, she had to stop driving. Her blood pressure has been up since starting. 193/84, 166/54, 164/54. I have asked her to stop, monitor BP at home, and give me a call on Tuesday for an update. If her BP is high on Tuesday, do you have another medication she can try? She will refuse CCB. * Yanci Adkins RN - 11/17/2023 4:28 PM CDT Spoke to Richa; discussed recommendation per Dr. Robles. She is in agreement with this plan. Prescription sent to preferred pharmacy. * Yanci Adkins RN - 11/17/2023 4:28 PM CDT Juan Luis Robles MD to [facility] DJ 11/17/23 4:17 PM I would try nifedipine XL 30 mg daily- she has amlodipine on her allergy list but tolerated this IVin the hospital. * Yanci Adkins RN - 11/17/2023 10:43 AM CDT Voicemail received from Richa requesting a call back to discuss high blood pressure readings. Spoke to Richa; she states that she was discharged from the hospital on Tuesday with carvedilol 6.25 mg BID, Losartan 100 mg daily and spironolactone 25 mg daily. Initially her blood pressures were well controlled but then started climbing again on Tuesday. Tuesday: 159/75 154/70 170/79 205/79 164/76 Tuesday: 166/84 144/76 : 166/83 174/81 She states that since Tuesday when her readings started to elevate again she has been experiencing headaches and feels like she has been hit by a truck. Saw PCP today and he wanted cardiology to weigh in on meds. She received a pacemaker during hospitalization so states she is tolerating current dose of coreg without difficulty. Dr. Robles, Dr. Howell is TAFP. Could you review and provide recommendations? documented in this encounter Plan of Treatment Upcoming Encounters Date Type Department Care Team (Late st Contact Info) Description 12/15/2023 12:40 PM CDT Appointment [facility] [place] [address] Cardiology [address] [place] [phone] Rosa Elena Huynh PA-C [address] [place] [address] 12/22/2023 10:45 AM CDT Appointment [facility] [address] [place] [address] Freeman Lopez, DO [address] [place] [address] 01/06/2024 1:30 PM CDT Appointment [facility] [address] Cardiology [address] [place] [phone] Wilfredo Howell III, MD [address] [place], [place] [id number] 01/24/2024 9:00 AM CDT Appointment [facility] [address] Electrophysiology [address] [place] [phone] documented as of this encounter Visit Diagnoses Not on filedocumented in this encounter Care Teams Toe [employer] Relationship Specialty Start Date End Date Dalton Esqueda MD [address] [place] [address] PCP - General Family Practice 06/23/23 documented as of this encounter
--- OUTSIDE RECORDS SUMMARY | 2023-12-12 20:26 | XMS_ITS | Clinical Summary ---
Author Organization [facility] Address [address] [place] [address] Care Team Providers Care Plasma Processor Name Role Phone Dalton Esqueda MD Primary Care Provider [phone] Source Comments You are receiving this document [...] for each transition of care or referral. [facility] Allergies Active Allergy Reactions Criticality Noted Date [...] Tablet (10 mg) by mouth daily. 10/22/19 Active Naltrexone HCl, Pain, (NALTREX OR) Take 5.5 mg by mouth daily. Active omeprazole (PRILOSEC) 40 MG capsule Take 1 Capsule (40 mg) by mouth daily. 01/13/20 Active aspirin EC 81 MG enteric coated tablet Take 1 Tablet (81 mg) by mouth daily. Active acetaminophen (TYLENOL 8 HOUR ARTHRITIS PAIN) 650 MG controlled release tablet Take 1 Tablet (650 mg) by mouth every 8 hours as needed. Active ondansetron (ZOFRAN-ODT) 4 MG disintegrating tablet Take 1 Tablet (4 mg) by mouth every 6 hours as needed. 03/12/20 Active medical cannabis patient certified Take 1 Capsule by mouth two times daily as needed. Active hydroxychloroquine (PLAQUENIL) 200 MG tablet Take 1 Tablet (200 mg) by mouth daily. 90 Tablet 3 03/22/20 024 Active Magnesium Bisglycinate (MAG GLYCINATE OR) Take 420 mg by mouth two times a day. Active Multiple Vitamin (MULTIVITAMINS OR) Take 1 Capsule by mouth daily. Active cholecalciferol (VITAMIND3) 50 MCG (2000 UT) tablet Take 1 Tablet (2,000 Units) by mouth daily. Active probiotic (AKA SUPER PROBIOTIC) Take 1 Capsule by mouth daily. Active drug not in computer Take by mouth daily. ProOmega Curcumin by InVisM: Take 3 capsules by mouth daily Active triamcinolone acetonide (KENALOG) 0.1 % ointment Apply topically two times a day. To areas of rash 80 g 2 07/11/19 Active Additional Information Patient taking differently:TopicalPRN, To areas of rash, Reported on 11/08/2023 spironolactone (ALDACTONE) 25 MG tablet Take 1 Tablet (25 mg) by mouth daily. 90 Tablet 3 08/26/19 24 025 Active predniSONE (DELTASONE) 2.5 MG tablet Take 3 Tablets (7.5 mg) by mouth daily. 270 Tablet 1 09/22/19 24 024 Active mycophenolate (CELLCEPT) 500 MG tablet Take 2 Tablets (1,000 mg) by mouth two times a day. 360 Tablet 1 09/22/19 24 025 Active magnesium oxide (MAG-OX) 400 MG tablet Take 1 Tablet (400 mg) by mouth daily as needed. Active LORazepam (ATIVAN) 0.5 MG tablet Take 1 Tablet (0.5 mg) by mouth as needed. 08/24/19 24 Active tacrolimus (PROTOPIC) 0.1 % ointmentIndication s:Lupus (HRC) Apply topically two times a day. to affected areas as directed. 60 g 2 10/10/19 24 Active Additional Information Patient taking differently:TopicalPRN, To affected areas as directed, Reported on 11/08/2023 losartan (COZAAR) 100 MG tablet Take 1 Tablet (100 mg) by mouth daily. 90 Tablet 3 10/13/19 24 025 Active Meloxicam (MOBIC) 15 MG tablet Take 1 Tablet (15 mg) by mouth daily. Active alendronate (FOSAMAX) 70 MG tablet Take 1 Tablet (70 mg) by mouth once every week. Take 30 minutes before first kfau-yyffk-ubxbax tion on mornings. Avoid lying down for 30 minutes. 12 Tablet 3 11/13/19 24 025 Active carvedilol (COREG) 12.5 MG tablet Take 1 Tablet (12.5 mg) by mouth two times a day with meals. 180 Tablet 3 11/28/19 24 025 Active PRALUENT 75 MG/ML SOAJ Inject 1 mL (75 mg) subcutaneously every 14 days. 6 Each 4 12/07/19 24 Active PRALUENT 75 MG/ML SOAJ Inject subcutaneously every 14 days. 024 Discontinued(*M ed change OR same med OR reorder, new dose/directions ) alendronate (FOSAMAX) 70 MG tablet Take 1 Tablet (70 mg) by mouth once every week. Take 30 minutes before first nods-hvfew-hkfxid tion. Avoid lying down for 30 minutes. 12 Tablet 3 03/22/20 23 024 Discontinued carvedilol (COREG) 3.125 MG tablet Take 1 Tablet (3.125 mg) by mouth daily AND 2 Tablets (6.25 mg) every evening. 270 Tablet 10/24/19 24 024 Discontinued carvedilol (COREG) 3.125 MG tablet Take 2 Tablets (6.25 mg) by mouth daily AND 2 Tablets (6.25 mg) every evening. 270 Tablet 11/13/19 24 024 Discontinued carvedilol (COREG) 3.125 MG tablet Take 2 Tablets (6.25 mg) by mouth daily AND 2 Tablets (6.25 mg) every evening. 270 Tablet 11/13/19 24 024 Discontinued NIFEdipine XL (PROCARDIA XL) 30 MG 24 hour release tablet Take 1 Tablet (30 mg) by mouth daily. 90 Tablet 3 11/17/19 24 024 Discontinued(Si de effects or allergy) Active Problems Problem Noted Date Diagnosed Date Cardiac pacemaker in situ 11/11/2023 Overview (11/11/2023): Dual Chamber Medtronic Dianne XT MRI SureScan - MRI conditional Chronotropic incompetence 11/10/2023 Sinus bradycardia 11/10/2023 SSS (sick sinus syndrome) 11/10/2023 Hypertensive emergency 11/08/2023 Osteoporosis 03/22/2023 AC (acromioclavicular) joint arthritis 3 Tubular adenoma 10/02/2020 Overview (03/22/2023): Repeat colonoscopy in 5 years SNHL (sensorineural hearing loss) 07/02/2020 Medical marijuana use 07/24/2018 Overview (03/22/2023): using oils-both medical marijuana and CBD Age-related osteoporosis wit hout current pathological fracture 03/28/2018 Obstructive sleep apnea 03/23/2018 Hypothyroidism 06/30/2017 Chronic SI joint pain 12/20/2016 Onychomycosis of toenail 11/01/2016 Tinea corporis 11/01/2016 Brain aneurysm 08/28/2016 Frequent headaches 08/28/2016 Lupus 11/24/2015 Left-sided tinnitus 11/20/2015 Fibromyalgia 03/31/2015 Subacute cutaneous lupus erythematosus 5 Generalized anxiety disorder 06/20/2014 Hypertension 08/23/2011 Stenosis of left carotid artery 08/17/2011 Overview (03/22/2023): 08/26/11: Right carotid endarterectomy Adjustment disorder with depressed mood 04/09/20 07 Tobacco use disorder 07/11/2006 Hyperlipidemia 07/11/2006 Overview (03/22/2023): does not tolerate statins: referral to cardiology Encounters Date Type Department Care Team Description 12/08/2023 Notes/Orders [facility] [address] [place] [address]. [place] [id number] Wilfredo Howell III, MD 12/07/2023 Notes/Orders [facility] [address] [place] [address]. [place] [id number] Wilfredo Howell III, MD 12/06/2023 Telephone [facility] [address] [place] [address]. [place] [phone] Wilfredo Howell III, MD UPDATE 11/22/2023 8:45 AM CDT Evaluation [facility] Elect[facility] [address] [place] [address]. [place] [address] SSS (sick sinus syndrome) (HRC) (Primary Dx); Cardiac pacemaker in situ 11/17/2023 [facility]Visit [facility] [address] [place] [address]. [place] [address] Mychart, Generic Provider 11/17/2023 Telephone [facility] [address] [place] [address]. [place] [address] Wilfredo Howell III, MD Hypertension 11/15/2023 Nurse Triage [facility] [address] [place] [address] Unknown, Physician Post-Op Problem; BLOOD PRESSURE, HIGH 11/08/2023 12:45 PM CDT - 11/13/2023 11:30 AM CDT Hospital Encounter [facility] [address] [place] [address]. [place] [address] Kayla Vázquez, Christian Card MD Smith, Cole B, Filomena Jordan DO Kovacovich, Joan M, MD [facility], Rewati, MD Chronic pain syndrome (Primary Dx); Hypertensive emergency; Cerebral aneurysm without rupture; Acute nonintractable headache, unspecified headache type; Brain aneurysm Discharge Disposition: Home 11/08/2023 11:30 AM CDT Office Visit [place] [facility] [address] Card[facility] [address] [place] [phone] Juan Luis Robles MD Hypertensive emergency (Primary Dx) 11/08/2023 Orders Only [facility] DEPARTMENT Provider, MD Isabelle 11/02/2023 Telephone [facility] [place] [place] [address] Wilfredo Howell III, MD BLOOD PRESSURE, HIGH 10/26/2023 11:10 AM CDT Lab Visit [facility] [address] [place] [address] High risk medication use 10/24/2023 Notes/Orders [facility] [place] [place] [address] Wilfredo Howell III, MD 10/24/2023 Telephone [facility] [place] [place] [address] Wilfredo Howell III, MD Hypertension 10/13/2023 3:30 PM CDT Office Visit [place] [facility] [place] [address] Cardiology [address] [place] [phone] Wilfredo Howell III, MD Hypertension, unspecified type (HRC) (Primary Dx); Tobacco use disorder (HRC); PAD (peripheral artery disease) (HRC); Mixed hyperlipidemia (HRC) 10/13/2023 Telephone [facility] [place] [address] Wilfredo Howell III, MD Medication Questions 10/10/2023 Telephone [facility] [address] [place] [address] Eva Long MD Medication Follow Up 10/04/2023 10:00 AM CDT Office [facility] [address] [place] [address] Eva Long MD Lupus (HRC) (Primary Dx); Hair loss 10/03/2023 Telephone [facility] [address] [facility] [place] [address] Wilfredo Howell III, MD UPDATE 09/23/2023 Telephone [place] [address] [place] [address]. [place] [address] Desilet, Luke W, DO LAB RESULTS 09/22/2023 1:30 PM CDT Lab Visit [facility] [address] [place] [address] Systemic lupus erythematosus, unspecified SLE type, unspecified organ involvement status (HRC) 09/22/2023 10:45 AM CDT Office Visit [facility] [id number] [place] [address] Desilet, Luke W, DO Systemic lupus erythematosus, unspecified SLE type, unspecified organ involvement status (HRC) (Primary Dx); High risk medication use; Osteoporosis, unspecified osteoporosis type, unspecified pathological fracture presence (HRC); Essential hypertension (HRC) 09/22/2023 Refill [place] [address] [place] [address]. [place] [address] Desilet, Luke W, DO Refill from Last 3 Months Immunizations Name Administration Dates Next Due Flu Vac (3+ yrs) 03/21/2013, 2,02/26/2011, 010,02/06/2009 Flu Vac Preserv Free (3+yrs) 02/26/2011 [id number] 04/15/2009 Influenza R2N4-26 2009 Influenza IIV4 (Quadrivalent ) 0.5mL (97653) 01/17/2017,03/03/2016,01/15/2015, 014,04/15/2009 PPSV23 (Pneumovax) 04/06/2002 Td 04/06/2002 Tdap 01/31/2023,08/23/2011 Social History Tobacco Use Types Packs/Day Years Used Date Smoking Tobacco: Former Cigarettes Smokeless Tobacco: Never Tobacco Cessation:Counseling Given: Not Answered Alcohol Use Standard Drinks/Week Comments Not Currently 0 (1 standard drink = 0.6 oz pur e alcohol) [facility] Utilities Answer Date Recorded In the past 12 months has th e [employer], gas, oil, or water company threatened to [...] place to sleep or slept in a nursing home (including now)? No 11/08/2023 Sex and Gender [...] oz) 11/12/2023 8:00 P M CDT Height 165.1 cm (5' 5) 10/13/2023 3:32 PM CDT Body Mass Index 21.02 10/13/2023 3:32 PM CDT Plan of Treatment Upcoming Encounters Date Type Department Care Team (Late st Contact Info) Description 12/15/2023 12:40 PM CDT Appointment [place] [facility] [place] [address] Cardiology [address] [place] [phone] Rosa Elena Huynh PA-C [address] [place], [place] [phone] 12/22/2023 10:45 AM CDT Appointment [facility] [address] [place], [place] [phone] Desilet, Luartie W, DO [address] [place], [place] [phone] 01/06/2024 1:30 PM CDT [facility] [place] [facility] [place] [address] Cardiology [address] [place] [phone] Wilfredo Howell III, MD [address] [place], [place] [phone] 01/24/2024 9:00 AM CDT Appointment [place] [facility] [place] [address] Electrophysiology [address] [place] [address] Health Maintenance Due Date Last Done Comments Colon Cancer Screening Plan Due 1955 Hep C Screening (Preventive Services) 1955 Medicare Annual Wellness Visit 1955 Cholesterol 1999 Zoster/Shingles (1 of 2) 2004 Pneumococcal 65+ Yrs (2 - PCV) 2019 04/06/2002 Mammogram 03/07/2020 03/07/2019 COVID-19 Vaccine (1 - season) 2022 Influenza (#1) 2023 01/17/2017, 11/12/2015, 01/15/2015, Additional history exists DTaP/Tdap/Td (3 - Tdap) 01/31/2033 02/01/20, 08/23/2011, 04/06/2002 Dexa Completed 02/22/2020 HepA Aged [...] on patient's age to complete this topic Medical Devices Implanted Type Area Equine Vet Device Identifier Shelf Expiration Date Model / Serial / Lot Dual Chamber Medtronic [place] Xt Dr Roxie Diaz-Mri Conditional-10/23 Implanted:11/10 by Gilbert Grey MD (Quantity not on file) Cardiac- Rhythm Left: CHEST Medtronic - Cardiovascular Description:Dual Chamber Med tronic [place] XT DR ROXIE Diaz - MRI conditional Procedures Procedure Name Priority Date/Time Associated Diagnosis Comments PACEMAKER EVALUATION Routine 11/22/2023 8:55 AM CDT SSS (sick sinus syndrome) (HRC) Cardiac pacemaker in situ BASIC METABOLIC PANEL Routine 11/13/2023 4:43 AM [...] (NO IMAGING) Routine 11/10/2023 7:52 AM CDT TSH, SENSITIVE (WITH REFLEX) Add-On 11/10/2023 4:50 AM CDT COMPLETE BLOOD COUNT-W/DIFF Routine 11/10/2023 4:50 AM CDT BASIC METABOLIC PANEL Routine 11/10/2023 4:50 AM CDT CBC AND DIFFERENTIAL PANEL Routine 11/10/2023 4:50 AM CDT INPATIENT TELEMETRY MONITORING Routine 11/09/2023 10:28 AM CDT INPATIENT TELEMETRY MONITORING Routine 11/09/2023 7:45 AM CDT ECHOCARDIOGRAM Routine 11/09/2023 6:53 AM CDT COMPLETE BLOOD COUNT-NO DIFF Routine 11/09/2023 4:59 AM CDT BASIC METABOLIC PANEL Routine 11/09/2023 4:59 AM CDT XR PORTABLE [...] LEAD INPATIENT STAT 11/08/2023 1:08 PM CDT BRAIN NATRIURETIC PEPTIDE (BNP) STAT Add-On 11/08/2023 1:04 PM CDT TROPONIN I STAT Add-On 11/08/2023 1:04 PM CDT COMPLETE BLOOD COUNT-W/DIFF STAT 11/08/2023 1:04 PM CDT EXTRA BLUE TOP TUBE Routine 11/08/2023 1 :04 PM CDT BASIC METABOLIC PANEL STAT 11/08/2023 1:04 PM CDT CBC AND DIFFERENTIAL PANEL STAT 11/08/2023 1:04 PM CDT RAINBOW DRAW AND HOLD Routine 11/08/2023 1:04 PM CDT PROCEDURE IP 11/08/2023 COMPLETE BLOOD COUNT-W/DIFF Routine 10/26/2023 11:04 AM CDT High risk medication use CBC AND DIFFERENTIAL PANEL Routine 10/26/2023 11:04 AM CDT High risk medication use COMPREHENSIVE METABOLIC PANEL Routine 10/26/2023 11:04 AM CDT High risk medication use TP/CREA RATIO, URINE Routine 09/22/2023 11:21 AM [...] SLE type, unspecified organ involvement status (HRC) from Last 3 Months Results * (ABNORMAL) Basic Metabolic Panel (11/13/2023 4:43 AM CDT) Only the most recent of6 resultswithin the time period is included. Sodium 138 136 - 145 mmol/L 11/13/2023 5:33 AM CDT [facility] Potassium 4.5 3.5 - 5.1 mmol/L 11/13/2023 5:33 AM CDT [facility] Chloride 110(H) 98 - 109 mmol/L 11/13/2023 5:33 AM CDT [facility] CO2 21 20 - 29 mmol/L 11/13/2023 5:33 AM CDT [facility] Anion Gap 7 6 - 16 mmol/L 11/13/2023 5:33 AM CDT [facility] Calcium 9.6 8.4 - 10.4 mg/dL 11/13/2023 5:33 AM CDT [facility] BUN 36(H) 7 - 26 mg/dL 11/13/2023 5:33 AM CDT [facility] Creatinine 1.29(H) 0.55 - 1.02 mg/dL 11/13/2023 5:33 AM CDT [facility] Glucose 90 70 - 100 mg/dL 11/13/2023 5:33 AM CDT [facility] Comment:The given reference range is for the fasting state. Non-fasting reference range for glucose is 70 - 180 mg/dL. GFR, Estimated 45(L) >60 mL/min/1.7 3m2 11/13/2023 5:33 AM CDT [facility] Blood Venipuncture / Unknown 11/13/2023 4:43 AM CDT 11/13/2023 5:01 AM CDT Narrative [facility] - 11/13/2023 5:33 AM CDT The National Kidney Disease Education Program suggests measuring Cystatin C in patients with eGFRcrea of 45 to 59 ml/min/1.73^2 who do not have other markers of kidney damage (i.e. elevated urine Albumin/Creatinine Ratio or a prior Cystatin C confirming the presence of chronic kidney disease). Stefanie Perez MD LAB_1 [facility] [address] * ECG 12 Lead Inpatient, On post-op day #1 (11/12/2023 6:51 AM CDT) Only the most recent of4 resultswithin the time period is included. Ventricular Rate 62 BPM [facility] Atrial Rate 62 BPM [facility] P-R Interval 204 ms [facility] QRS Duration 86 ms [facility] QT 414 ms M[facility] QTc 420 ms MUSE [facility] P Sidney 22 degrees MUSE GHP R Sidney 59 degrees MUSE GHP T Sidney 78 degrees MUSE [facility] 11/12/2023 6:51 AM CDT Narrative [facility] - 11/12/2023 1:46 PM CDT Atrial-paced rhythm [...] PM Gilbert Grey MD PN ECG ORDERABLES Performing Organization Address City/State/[facility] Co de Phone Number [facility] [address] [place] [address] * XR Chest 2 Views (11/11/2023 7:41 [...] stable. Gilbert Grey MD RAD GD * Permanent Pacemaker Implantation (Inpatient) (11/11/2023 3:24 PM CDT) Narrative [facility] - 11/11/2023 3:24 PM CDT Gilbert Grey MD ? 11/11/2023 ??3:26 PM CARDIAC ELECTROPHYSIOLOGY PROCEDURE REPORT Cardiac Electrophysiology Service [facility] Cardiac Electrical Cad Technician: ??Gilbert Grey MD Date: 11/11/2023 PROCEDURES PERFORMED: [...] The guidewire and dilator were removed. ??A [employer] C315 sheath was advanced into the RV [...] PARAMETERS: New Permanent Pacemaker Pulse Generator: Medtronic Dianne, model [id number] New Right Atrial Lead: ??Medtronic model [id number] Sensed P waves 4.1 mV, pacing threshold 1.2 V @ 0.5 ms, impedance 898 ohms. New Right Ventricular Lead: ??Medtronic model [id number] Sensed R waves 9.7 mV, pacing threshold [...] Grey MD Cardiac Electrophysiology Service Sharona White APRN, PMP PROJECT MANAGER PN ELECTROPHYSIO LOGY ORDERABLE Performing Organization Address [facility] de Phone Number [facility] [address] [place] [address] * INPATIENT TELEMETRY MONITORING (11/10/2023 9:18 AM CDT) Only the most recent of3 resultswithin the time period is included. TELE P-R INTERVAL 0.17 [facility] TELE QRS DURATION 0.15 [facility] TELE R-R INTERVAL 1.39 [facility] TELE QT 0.50 [facility] TELE INTERPRETATION Sinus Fortino Ирина Scott RN MUSE [facility] 11/10/2023 9:18 AM CDT Narrative [facility] - 11/10/2023 10:53 AM CDT Sinus Fortino ??Ирина Scott RN Interface Provider EKG Performing Organization Address [facility] de Phone Number [facility] [address] [place] [address] * GXT Stress Test (11/10/2023 7:52 AM [...] 246/88. Report Signatures Finalized by Mitzy Matos ?RUEL on 11/10/2023 02:21 PM Procedure Note Mitzy [...] Mitzy Matos MD on 11/10/2023 02:21 PM Wlifredo Howell III, MD ET ECHO ORDERABL [facility] [address] [place] [address] * (ABNORMAL) Complete Blood Count-W/Diff (11/10/2023 4:50 AM CDT) Only the most recent of4 resultswithin the time period is included. WBC 5.8 3.5 - 10.5 x10(9)/L 11/10/2023 5:28 AM CDT [facility] RBC 3.84(L) 3.90 - 5.03 x10(12)/L 11/10/2023 5:28 AM CDT [facility] Hemoglobin 12.0 12.0 - 15.5 g/dL 11/10/2023 5:28 AM CDT [facility] HCT 35.8 34.9 - 44.5 % 11/10/2023 5:28 AM CDT [facility] MCV 93.2 80.0 - 100.0 fL 11/10/2023 5:28 AM CDT [facility] MCH 31.3 27.6 - 33.3 pg 11/10/2023 5:28 AM CDT [facility] MCHC 33.5 31.5 - 35.2 g/dL 11/10/2023 5:28 AM CDT [facility] RDW 13.5 11.9 - 15.5 % 11/10/2023 5:28 AM CDT [facility] Platelets 238 150 - 450 x10(9)/L 11/10/2023 5:28 AM CDT [facility] Automated NRBC 0 <=0 /100 WBC 11/10/2023 5:28 AM CDT [facility] Neutrophil Absolute 2.5 1.7 - 7.0 10(9)/L 11/10/2023 5:28 AM CDT [facility] Lymphocyte Absolute 2.3 1.0 - 4.8 10(9)/L 11/10/2023 5:28 AM CDT [facility] Monocyte Absolute 0.7 0.2 - 0.9 10(9)/L 11/10/2023 5:28 AM CDT [facility] Eosinophil Absolute 0.1 0.0 - 0.5 10(9)/L 11/10/2023 5:28 AM CDT [facility] Basophil Absolute 0.0 0.0 - 0.3 10(9)/L 11/10/2023 5:28 AM CDT [facility] Immature Granulocyte % 0.7(H) 0.0 - 0.5 % 11/10/2023 5:28 AM CDT [facility] Blood Venipuncture / Unknown 11/10/2023 4:50 AM CDT 11/10/2023 5:25 AM CDT Filomena Q Lopes DO LAB_1 Performing Organization Address City/[facility] Co de Phone Number [facility] [address] * TSH with reflex to fT4 (not for treatment monitoring) (11/10/2023 4:50 AM CDT) TSH, Reflex 0.90 0.30 - 4.50 uIU/mL 11/10/2023 6:20 PM CDT [facility] Blood Venipuncture / Unknown 11/10/2023 4:50 AM CDT 11/10/2023 5:26 AM CDT Sharona White APRN, DOM LAB_1 Performing Organization Address [facility] Co de Phone Number [facility] [address] * Echocardiogram (11/09/2023 6:53 AM CDT) 11/09/2023 6:53 AM CDT Narrative PN ECHO - 11/09/2023 8:35 AM CDT Procedure type: ? ECHOCARDIOGRAM Procedure ? 11/09/2023 6:53 AM date/time: [facility] Accession #: ?[id number] INDICATIONS Dyspnea/SOB. SUMMARY: Left ventricular ejection fraction [...] placed by Floor. DEMOGRAPHICS Patient name: ? NADYA Martinez Date of : ?1955 Age: ?68 year(s) Gender: ? Female Procedure Staff Interpreting Provider: ?? NILTON GARCIA MD Clerical Methods Analyst: ? EE Ordering Provider: ? JOLEEN Cisneros Attending Physician: [...] Previously placed by Floor. DEMOGRAPHICS Patient name: NADYA Martinez Date of : 1955 Age: 68 year(s) Gender: Female Procedure Staff Interpreting Provider: NILTON GARCIA MD Clerical Methods Analyst: EE Ordering Provider: JOLEEN Cisneros Attending Physician: KAYLA VÁZQUEZ DO Electronically signed by NILTON GARCIA MD (Interpreting Provider) on at 8:34 AM Crow Howell PA-C ET ECHO ORDERABLES PN ECHO * Complete Blood Count-No Diff (11/09/2023 4:59 AM CDT) WBC 6.1 3.5 - 10.5 x10(9)/L 11/09/2023 5:21 AM CDT [facility] RBC 3.98 3.90 - 5.03 x10(12)/L 11/09/2023 5:21 AM CDT [facility] Hemoglobin 12.0 12.0 - 15.5 g/dL 11/09/2023 5:21 AM CDT [facility] HCT 36.7 34.9 - 44.5 % 11/09/2023 5:21 AM CDT [facility] MCV 92.2 80.0 - 100.0 fL 11/09/2023 5:21 AM CDT [facility] MCH 30.2 27.6 - 33.3 pg 11/09/2023 5:21 AM CDT [facility] MCHC 32.7 31.5 - 35.2 g/dL 11/09/2023 5:21 AM CDT [facility] RDW 13.4 11.9 - 15.5 % 11/09/2023 5:21 AM CDT [facility] Platelets 236 150 - 450 x10(9)/L 11/09/2023 5:21 AM CDT [facility] Automated NRBC 0 <=0 /100 WBC 11/09/2023 5:21 AM CDT [facility] Blood Venipuncture / Unknown 11/09/2023 4:59 AM CDT 11/09/2023 5:17 AM CDT Crow Howell PA-C LAB_1 Performing Organization Address [facility] de Phone Number [facility] [address] * XR Portable Chest 1 View [...] Molecular Detection (11/08/2023 8:35 PM CDT) Pathologist [facility] MRSA Not Detected Not Detected 11/08/2023 9:53 PM CDT [facility] Swab (Source Required) ENTIRE ANTERIOR NARIS / Unknown Non-blood Collection / Unknown 11/08/2023 8:35 PM CDT 11/08/2023 8:39 PM CDT Narrative [facility] - 11/08/2023 9:53 PM CDT Methodology: Qualitative real-time PCR assay Christian Carter MD LAB_1 Performing Organization Address [facility] de Phone Number [facility] [address] * Glucose, Whole Blood POCT (11/08/2023 8:12 PM CDT) Pathologist [facility] Glucose, Whole Blood 86 70 - 180 mg/dL 11/08/2023 8:13 PM CDT [facility] Performing Location [place] 11/08/2023 8:13 PM CDT [facility] Blood 11/08/2023 8:12 PM CDT 11/08/2023 8:13 PM CDT Christian Carter MD LAB_1 Performing Organization Address [facility] Co de Phone Number [facility] [address] * (ABNORMAL) Troponin-I (11/08/2023 7:56 PM CDT) Only the most recent of2 resultswithin the time period is included. Troponin I 0.06(H) 0.00 - 0.03 ng/mL 11/08/2023 8:33 PM CDT [facility] Blood Venipuncture / Unknown 11/08/2023 7:56 PM CDT 11/08/2023 8:00 PM CDT Crow Howell PA-C LAB_1 Performing Organization Address [facility] de Phone Number [facility] [address] * CT Angio Neck Head W IV Cont (11/08/2023 2:23 PM CDT) Anatomical Region Laterality Modality Head, Vascular Computed Tomogra phy 11/08/2023 2:08 PM CDT Impressions 11/08/2023 3:23 PM CDT INDICATION: sams, htn, known aneurysms TECHNIQUE: CT angiogram of the [place] ??and CT angiogram of the [...] inclusive of the daughter aneurysm. Please see Carreon images. Posterior cerebral arteries: ??Patent and nonstenotic. ? Vertebrobasilar system: ??Patent and nonstenotic. 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 Please see Carreon images. IMPRESSION: 1. No evidence for large [...] known aneurysms TECHNIQUE: CT angiogram of the [place] and CT angiogram of theneck [...] car inclusive of the daughter aneurysm.Please see Carreon images. Posterior cerebral arteries: Patent and nonstenotic. Vertebrobasilar system: Patent and nonstenotic. Small saccular aneurysminvolving the left vertebral artery immediately distal to the origin ofthe left posterior inferior cerebellar artery projecting superiorly andlaterally measuring 3.5 x 2.6 mm. Please see Carreon images. IMPRESSION: 1. No evidence for large [...] examination. No evidencefor acute intracranial hemorrhage. Kayla Vázquez DO RAD CT * Extra Blue top tube (11/08/2023 1:04 PM CDT) [facility] Extra Blue Top Drawn Specimen will be held for 24 hours 11/08/2023 3:00 PM CDT [facility] Blood Venipuncture / Unknown 11/08/2023 1:04 PM CDT 11/08/2023 1:16 PM CDT Jenaro Robles MD LAB_1 Performing Organization Address [facility] Co de Phone Number [facility] [address] * (ABNORMAL) B-Type Natriuretic Peptide (11/08/2023 1:04 PM CDT) [facility] B Type Natr. Peptide 198(H) <=99 pg/mL 11/08/2023 1:57 PM CDT [facility] Blood Venipuncture / Unknown 11/08/2023 1:04 PM CDT 11/08/2023 1:16 PM CDT Kayla Vázquez DO LAB_1 Performing Organization Address [facility] Co de Phone Number [facility] [address] * PROCEDURE IP (11/08/2023) Anatomical Region Laterality Modality Other Interface Provider MD DUMMY/OTHER/AR * (ABNORMAL) Comp Metabolic Panel (10/26/2023 11:04 AM [facility]) Only the most recent of2 resultswithin the time period is included. Sodium 139 136 - 145 mmol/L 10/26/2023 1:06 PM [facility] Potassium 4.9 3.5 - 5.1 mmol/L 10/26/2023 1:06 PM [facility] Chloride 106 98 - 109 mmol/L 10/26/2023 1:06 PM [facility] CO2 23 20 - 29 mmol/L 10/26/2023 1:06 PM [facility] Anion Gap 10 6 - 16 mmol/L 10/26/2023 1:06 PM [facility] Calcium 10.5(H) 8.4 - 10.4 mg/dL 10/26/2023 1:06 PM [facility] Comment:Low serum albumin ma y artificially lower total calcium, without impacting ionized calcium concentrations. If patient has or is at risk for hypoalbuminemia, consider ionized serum calcium to more accurately assess calcium status. BUN 36(H) 7 - 26 mg/dL 10/26/2023 1:06 PM [facility] Creatinine 1.18(H) 0.55 - 1.02 mg/dL 10/26/2023 1:06 PM [facility] Alkaline Phosphatase 38(L) 40 - 150 U/L 10/26/2023 1:06 PM [facility] AST (SGOT) 22 10 - 40 U/L 10/26/2023 1:06 PM [facility] ALT (SGPT) 16 <=55 U/L 10/26/2023 1:06 PM [facility] Bilirubin, Total 0.4 0.2 - 1.2 mg/dL 10/26/2023 1:06 PM [facility] Protein, Total 7.0 6.4 - 8.3 g/dL 10/26/2023 1:06 PM [facility] Albumin 3.7 3.5 - 5.0 g/dL 10/26/2023 1:06 PM [facility] Glucose 105(H) 70 - 100 mg/dL 10/26/2023 1:06 PM [facility] Comment:The given reference range is for the fasting state. Non-fasting reference range for glucose is 70 - 180 mg/dL. GFR, Estimated 50(L) >60 mL/min/1. 73m2 10/26/2023 1:06 PM [facility] Hours Fasting 2.0 8 - 12 Hours 10/26/2023 1:06 PM [facility] Blood Venipuncture / Unknown 10/26/2023 11:04 AM T 10/26/2023 11:04 AM [facility] Narrative [facility] - 10/26/2023 1:06 PM [facility] The National Kidney Disease Education Program suggests measuring Cystatin C in patients with eGFRcrea of 45 to 59 ml/min/1.73^2 who do not have other markers of kidney damage (i.e. elevated urine Albumin/Creatinine Ratio or a prior Cystatin C confirming the presence of chronic kidney disease). Freeman Fong Desilet DO LAB_1 Performing Organization Address City/State/[facility] Co de Phone Number [facility] [address] [place] [address] * (ABNORMAL) Urinalysis Routine, Micro/Culture if Pos: Clean Catch (09/22/2023 11:21 AM [facility]) Urine Culture Comment Urinalysis results do not meet criteria for urine culture reflex. 09/22/2023 11:28 AM [facility] Urine Color Straw 09/22/2023 11:28 AM [facility] Urine Clarity Clear Clear 09/22/2023 11:28 AM [facility] Specific [place], Urine <=1.005(A) 1.005 - 1.030 09/22/2023 11:28 AM [facility] PH Urine 6.0 5.0 - 8.0 09/22/2023 11:28 AM [facility] Protein, Urine Qual (mg/dL) Negative Neg/Trace 09/22/2023 11:28 AM [facility] Glucose Urine Qual (mg/dL) Negative Negative 09/22/2023 11:28 AM [facility] Ketones, Urine (mg/dL) Negative Negative 09/22/2023 11:28 AM [facility] Urobilinogen, Urine (EU/dL) 0.2 <2.0 09/22/2023 11:28 AM T [facility] Bilirubin Urine Negative Negative 09/22/2023 11:28 AM T [facility] Blood, Urine Negative Neg/Trace 09/22/2023 11:28 AM [facility] Nitrite Urine Negative Negative 09/22/2023 11:28 AM [facility] Leukocyte Est. Negative Negative 09/22/2023 11:28 AM [facility] Urine Source Clean Catch 09/22/2023 11:28 AM [facility] Urine URINE SPECIMEN COLLECTION, CLEAN CATCH / Unknown Non-blood Collection / Unknown 09/22/2023 11:21 AM CDT 09/22/2023 11:21 AM CDT Luke W Desilet DO LAB_1 Performing Organization Address City/State/[facility] Co de Phone Number [facility] [address] [place] [address] * TP/Crea Ratio, Urine (09/22/2023 11:21 AM CDT) TP/Creat Ratio, Urine Random 0.17 0.00 - 0.20 09/22/2023 4:26 PM CDT [facility] Total Protein, Urine, Random 3 0 - 14 mg/dL 09/22/2023 4:26 PM CDT [facility] Creatinine, Urine, Random 18 >20 mg/dL mg/dL 09/22/2023 4:26 PM CDT [facility] Comment:The overall interpre tation for this test is normal (the ratio is within the reference interval). Individual test components may fall outside the reference interval but still give a normal overall test result. Urine URINE SPECIMEN COLLECTION, CLEAN CATCH / Unknown Non-blood Collection / Unknown 09/22/2023 11:21 AM CDT 09/22/2023 11:21 AM CDT Narrative [facility] - 09/22/2023 4:26 PM CDT Low urine creatinine values coupled with low urine protein values can artifactually increase the urine protein/creatinine results. Correlate results of ratio with creatinine results. Freeman Fong Desilet DO LAB_1 Performing Organization Address [facility] Co de Phone Number [facility] [address] * (ABNORMAL) C4 Complement (09/22/2023 11:16 AM CDT) C4 Complement 13.0(L) 15.0 - 57.0 mg/dL 09/22/2023 4:37 PM CDT [facility] Blood Venipuncture / Unknown 09/22/2023 11:16 AM CDT 09/22/2023 11:16 AM CDT Freeman Fong Desilet DO LAB_1 Performing Organization Address [facility] de Phone Number [facility] [address] * C3 Complement (09/22/2023 11:16 AM CDT) C3 Complement 85 83 - 193 mg/dL 09/22/2023 4:37 PM CDT [facility] Blood Venipuncture / Unknown 09/22/2023 11:16 AM CDT 09/22/2023 11:16 AM CDT Freeman Fong Desilet DO LAB_1 Performing Organization Address [facility] Co de Phone Number [facility] [address] from Last 3 Months Advance Directives * Do Not Attempt Resuscitation if Pulseless and Apneic, Do Not Intubate for Respiratory Deterioration(Latest Code Status on File) Date Activated Date Inactivated Comments 11/08/2023 8:12 PM 11/13/2023 1:45 PM Question Answer Comments See below for Life Sustainin g Treatment Orders IF pulse and breathing are present: See below Intubation for respiratory deterioration? No BiPAP for respiratory deterioration? Unaddressed /Yes Vasopressors for hypotension? Unaddressed/Yes Cardioversion for unstable rhythm? Unaddressed/Y es Care Teams Plasma Processor Relationship Specialty Start Date End Date Dalton Esqueda MD [address] [place] [address] PCP - General Family Practice 06/23/23
--- OUTSIDE RECORDS SUMMARY | 2023-12-12 20:26 | XMS_ITS | Encounter Summary ---
Author Organization [facility] Address [address] [place] [address] Care Team Providers Care Freight Rate Clerk Name Role Phone Dalton Esqueda MD Primary Care Provider Encounter Details Date Type Department Care Team (Late st Contact Info) Description 12/08/2023 Notes/Orders [facility] [address] [place] [address] Wilfredo Howell III, MD [address] [place], [place] [id number] Social History Tobacco Use Types Packs/Day Years Used Date Smoking Tobacco: Former Cigarettes Smokeless Tobacco: Never Alcohol Use Standard Drinks/Week Comments Not Currently 0 (1 standard drink = 0.6 oz pur e alcohol) [facility] Utilities Answer Date Recorded In the past 12 months has [facility] [employer], gas, oil, or water [employer] threatened to shut off services in your [...] place to sleep or slept in a care home (including now)? No 11/08/2023 Sex and Gender Information Value Date Recorded Sex Assigned at Not on file Gender Identity Not on file Sexual Orientation Not on file documented as of this encounter Progress Notes * Yanci Adkins RN - 12/08/2023 8:57 AM CDT PA initiated for Praluent. Approved Prior Authorization Portal Prior authorization approved Payer: [employer] Note from payer: Request Reference Number: [id number]. PRALUENT INJ 75MG/ML is approved through 04/24/2024. Your patient may now fill this prescription and it will be covered. Approval Details Authorization number: [id number] Authorized from December 07, 2023 to April 24, 2024 Electronic appeal: Supported Appeal deadline: December 14, 2023 (In 6 days) View History Pharmacy called and notified of PA approval. documented in this encounter Plan of Treatment Upcoming Encounters Date Type Department Care Team (Late st Contact Info) Description 12/15/2023 12:40 PM CDT Appointment [facility] [place] [address] Cardiology [address] [place] [phone] Rosa Elena Huynh PA-C [address] [place] [address] 12/22/2023 10:45 AM CDT Appointment [facility] [address] [place] [address] Desilet, Luke W, DO [address] [place], [place] [address] 01/06/2024 1:30 PM CDT Appointment [facility] [address] Cardiology [address] [place] [phone] Wilfredo Howell III, MD [address] [place] [address] 01/24/2024 9:00 AM CDT Appointment [place] [facility] [place] [address] Electrophysiology [address] [place] [phone] documented as of this encounter Visit Diagnoses Not on filedocumented in this encounter Care Teams Freight Rate Clerk Relationship Specialty Start Date End Date Dalton Esqueda MD [address] [place] [address] PCP - General Family Practice 06/23/23 documented as of this encounter
--- OUTSIDE RECORDS SUMMARY | 2023-12-12 20:26 | XMS_ITS | Encounter Summary ---
Author Organization [facility] Address [address] [place] [address] Care Team Providers Care Hoister Name Role Phone Dalton Canales MD Primary Care Provider [phone] Reason for Visit * Reason Comments Follow-up Encounter Details Date Type Department Care Team (Late st Contact Info) Description 11/08/2023 11:30 AM CDT [facility] [address] Card[facility] [address] [place] [address] Juan Luis Robles MD [address] [facility] [address] [place] [address] Hypertensive emergency (Primary Dx) Social History Tobacco Use Types Packs/Day Years Used Date Smoking Tobacco: Former Cigarettes Smokeless Tobacco: Never Alcohol Use Standard Drinks/Week Comments Not Currently 0 (1 standard drink = 0.6 oz pur e alcohol) [facility] Utilities Answer Date Recorded In the past 12 months has [employer], gas, oil, or water [employer] threatened to shut off services in your [...] place to sleep or slept in a residential (including now)? No 11/08/2023 Sex and Gender Information Value Date Recorded Sex Assigned at Not on file Gender Identity Not on file Sexual Orientation Not on file documented as of this encounter Last Filed Vital Signs Vital Sign Reading Time Taken Comments Blood Pressure 214/82 11/08/2023 11:04 AM CDT Pulse 82 11/08/2023 11:04 AM CDT Temperature - - Respiratory Rate - - Oxygen Saturation - - Inhaled Oxygen Concentration - - Weight - - Height - - Body Mass Index - - documented in this encounter Progress Notes * Juan Luis Robles MD - 11/08/2023 11:30 AM CDT Images from the original note were not included. Cardiology Clinic Note Nicolle Covington [id number] 11/08/2023 Referring provider: Dalton Canales MD [address] [facility] [address] Dear Dalton Canales MD, I had the pleasure of seeing Nicolle Covington at the [facility] in [place] today. Problem List Uncontrolled HTN Multiple medication intolerances including atenolol, metoprolol, diltiazem, amlodipine, HCTZ, hydralazine PAD S/p bilateral iliac stenting S/p bilateral carotid endarterectomies Severe bilateral stenoses at the origins of both vertebral arteries noted on CTA 11/14/21 Dyslipidemia Intolerant to statins On alriocumab and ezetimibe Ongoing tobacco use Systemic lupus erythematosus Cerebral aneurysms R middle cerebral bifurcation aneurysm (7.4 mm), L PICA aneurysm on CTA 11/14/21 Sjogren's syndrome SUBJECTIVE: Nicolle Covington is a 68 y.o. female who is being seen in follow up today. She was last seen by Dr. Howell a month ago. On that visit she was noted to have continued uncontrolled hypertension with systolics ranging from 180 to over 200 mmHg. She was describing some fatigue but no othersymptoms such as headache, visual changes, nausea, chest discomfort, orthopnea, or PND. Hospitalization for more intensive blood pressure control was recommended but she declined at that time. After the visit she was started on losartan in place of lisinopril to try and facilitate a transition to Entresto. She was here for follow up today. She tells me that she has been having a headache for the past week or so. She was not had any vision changes, nausea or vomiting. She was not had any anginalsymptoms. However, she does tell me that she has shortness of breath with exertion. She denies orthopnea, PND, or lower extremity edema. Medications: Current Outpatient Medications Medication Instructions acetaminophen (TYLENOL 8 HOUR ARTHRITIS PAIN) 650 MG controlled release tablet alendronate (FOSAMAX) 70 mg, Oral, WEEKLY, Take 30 minutes before first [id number]. Avoid lying down for 30 minutes. aspirin (ASPIRIN 81) 81 MG chewable tablet carvedilol (COREG) 3.125 MG tablet Take 1 Tablet (3.125 mg) by mouth daily AND 2 Tablets (6.25 mg) every evening. cholecalciferol (VITAMIND3) 2,000 Units, Oral, DAILY clobetasol (TEMOVATE) 0.05 % cream 1 Application drug not in computer ProOmega ezetimibe (ZETIA) 10 MG tablet 1 Tablet, Oral, DAILY hydroxychloroquine (PLAQUENIL) 200 mg, Oral, DAILY levothyroxine (SYNTHROID) 25 MCG tablet 1 tablet in the morning on an empty stomach Orally Once a day LORazepam (ATIVAN) 0.5 MG tablet Oral losartan (COZAAR) 100 mg, Oral, DAILY Magnesium Bisglycinate (MAG GLYCINATE OR) No dose, route, or frequency recorded. magnesium oxide (MAG-OX) 400 MG tablet 1 tablet as needed Orally Once a day medical cannabis patient certified Multiple Vitamin (MULTIVITAMINS OR) No dose, route, or frequency recorded. mycophenolate (CELLCEPT) 1,000 mg, Oral, BID Naltrexone HCl, Pain, (NALTREX) 4.5 MG CAPS omeprazole (PRILOSEC) 40 mg, Oral, BID ondansetron (ZOFRAN-ODT) 4 MG disintegrating tablet Oral PRALUENT 75 MG/ML SOAJ Subcutaneous predniSONE (DELTASONE) 7.5 mg, Oral, DAILY probiotic (AKA SUPER PROBIOTIC) 2 Capsules, Oral, DAILY spironolactone (ALDACTONE) 25 mg, Oral, DAILY tacrolimus (PROTOPIC) 0.1 % ointment Topical, BID, to affected areas as directed. triamcinolone acetonide (KENALOG) 0.025 % ointment Triamcinolone Acetonide triamcinolone acetonide (KENALOG) 0.1 % ointment Topical, BID, To areas of rash OBJECTIVE: BP (!) 214/82 (BP Location: Left Arm, BP Cuff Size: Regular) Pulse 82 Gen: alert, in NAD Neck: CVP 7, no bruit, prominent carotid upstrokes COR: RRR w/o m/r/g Lungs: CTAB Extr: no edema, warm Labs: Lab Results Component Value Date Creatinine 1.18 (H) 10/26/2023 Glucose 105 (H) 10/26/2023 CO2 23 10/26/2023 Chloride 106 10/26/2023 Potassium 4.9 10/26/2023 Sodium 139 10/26/2023 BUN 36 (H) 10/26/2023 Calcium 10.5 (H) 10/26/2023 GFR, Estimated 50 (L) 10/26/2023 Lab Results Component Value Date WBC 7.3 10/26/2023 RBC 3.89 (L) 10/26/2023 Hemoglobin 12.0 10/26/2023 HCT 36.3 10/26/2023 MCV 93.3 10/26/2023 RDW 13.5 10/26/2023 Platelets 271 10/26/2023 A/P: Hypertensive emergency. I strongly recommended hospitalization today given her extremely elevated blood pressure, probable symptoms with headache as well as dyspnea on exertion in the context of her cerebral aneurysms. In addition, earlier this month she had lab work suggesting some renal dysfunction that is new. Today she was agreeable to be hospitalized. She unfortunately has been not able to tolerate many medications for hypertension. We are going to have the ambulance take her to the [facility] ER so that she can be started on treatment there and then be admitted. Arrangements have been made through the hospitalist service at [facility]. Thank you for allowing us to participate in the care of your patient, Nicolle Covington. If you have any questions regarding these recommendations, please feel free to contact me. Juan Luis Robles MD Department of Cardiology [facility] Allergies Allergen Reactions Fentanyl Anaphylaxis, Other, see comments and Respiratory Arrest Hydralazine Anaphylaxis and Other, see comments Infliximab Rash Also had some lip swelling and face swelling Amoxicillin-Pot Clavulanate Gastrointestinal amox ok Duloxetine Diaphoresis, Dizziness and Other, see comments Erythromycin Gastrointestinal Gabapentin Confusion Hydrochlorothiazide Other, see comments and Rash Hydroxychloroquine Anxiety Sulfasalazine Rash Tetracycline Gastrointestinal Venlafaxine Diarrhea Patient Active Problem List Diagnosis Date Noted Osteoporosis ([facility]C) 03/22/2023 AC (acromioclavicular) joint arthritis 03/22/2023 Tubular adenoma 10/02/2020 Overview Note: Repeat colonoscopy in 5 years SNHL (sensorineural hearing loss) 07/02/2020 Medical marijuana use 07/24/2018 Overview Note: using oils-both medical marijuana and CBD Age-related osteoporosis without current pathological fracture (HRC) 03/28/2018 Obstructive sleep apnea 03/23/2018 Hypothyroidism ([facility]) 06/30/2017 Chronic SI joint pain ([facility]) 12/20/2016 Onychomycosis of toenail 11/01/2016 Tinea corporis 11/01/2016 Brain aneurysm 08/28/2016 Frequent headaches 08/28/2016 Lupus ([facility]) 11/24/2015 Left-sided tinnitus 11/20/2015 Fibromyalgia 03/31/2015 Subacute cutaneous lupus erythematosus 03/31/2015 Generalized anxiety disorder ([facility]) 06/20/2014 Hypertension ([facility]) 08/23/2011 Stenosis of left carotid artery 08/17/2011 Overview Note: 08/26/11: Right carotid endarterectomy Adjustment disorder with depressed mood ([facility]) 04/09/2007 Tobacco use disorder ([facility]) 07/11/2006 Hyperlipidemia ([facility]) 07/11/2006 Overview Note: does not tolerate statins: referral to cardiology No family history on file. Social History Socioeconomic History Marital status: Single Spouse name: Not on file Number of children: Not on file Years of education: Not on file Highest education level: Not on file Occupational History Not on file documented in this encounter Plan of Treatment Upcoming Encounters Date Type Department Care Team (Late st Contact Info) Description 12/15/2023 12:40 PM CDT Appointment [facility] [address] Cardiology [address] [place] [phone] Rosa Elena Huynh PA-C [address] [place], [place] [address] 12/22/2023 10:45 AM CDT Appointment [facility] [address] [place], [place] [phone] DesiletFreeman, DO [address] [place], [place] [address] 01/06/2024 1:30 PM CDT Appointment [facility] [place] [address] Cardiology [address] [place] [phone] Wilfredo Howell III, MD [address] [place], [place] [phone] 01/24/2024 9:00 AM CDT Appointment [facility] [address] Electrophysiology [address] [place] [address] documented as of this encounter Visit Diagnoses Diagnosis Hypertensive emergency- Primary Unspecified essential hypertension documented in this encounter Care Teams Hoister Relationship Specialty Start Date End Date Dalton Canales MD [address] [place] [address] PCP - General Family Practice 06/23/23 documented as of this encounter
--- OUTSIDE RECORDS SUMMARY | 2023-12-12 20:26 | XMS_ITS | Encounter Summary ---
Author Organization [employer] Address [address] [place] [address] Care Team Providers Care Oil Well Gun Perforator Operator Name Role Phone Dalton Esqueda MD Primary Care Provider [phone] Reason for Visit * Reason Comments UPDATE Encounter Details Date Type Department Care Team (Late st Contact Info) Description 12/06/2023 [facility] [address] [place] [address] Wilfredo Howell III, MD [address] [employer] [place], [place] [phone] UPDATE Social History Tobacco Use Types Packs/Day Years Used Date Smoking Tobacco: Former Cigarettes Smokeless Tobacco: Never Alcohol Use Standard Drinks/Week Comments Not Currently 0 (1 standard drink = 0.6 oz pur e alcohol) [facility] Utilities Answer Date Recorded In the past 12 months has [facility] [employer], gas, oil, or water [employer] threatened to shut off services in your [...] place to sleep or slept in a mcc (including now)? No 11/08/2023 Sex and Gender Information Value Date Recorded Sex Assigned at Not on file Gender Identity Not on file Sexual Orientation Not on file documented as of this encounter Nursing Notes * Yanci Adkins RN - 12/08/2023 10:49 AM CDT Spoke to Nicolle; discussed message/recommendations per Dr. Howell. She is in agreement with a soonerappointment. Scheduled to see Rosa Elena Huynh 12/14. * Yanci Adkins RN - 12/07/2023 3:42 PM CDT Progress Notes Wilfredo Howell III, MD (Physician) Cardiology Encounter Date: 12/07/2023 Signed Blood pressures remain suboptimal, but are improved following implantation of pacemaker in October. Follow-up clinic appointment scheduled in December. Given continued elevated blood pressure and symptoms as described, would recommend moving appointment up to a date within the next 1-2 weeks. It is reasonable to continue Praluent for lipid management, refill sent to her pharmacy. * Yanci Adkins RN - 12/07/2023 2:17 PM CDT Spoke to Richa; she is calling with an update since increasing carvedilol on 11/27 to 12.5 mg BID. She reports her blood pressures have been as follows: 11/28 151/78, 126/68 11/29 157/75, 121/66, 115/54 11/30 142/74, 144/70, 135/70, 109/50 12/01 189/94, 144/69, 169/70 12/02 175/83, 122/70, 166/82 12/03 166/77, 136/75 12/05 195/90, 140/79 12/06 216/96, 146/63 Heart rates 70s-80s. Currently taking carvedilol 12.5 mg BID, Losartan 100 mg delfino and spironolactone 25 mg daily. She states she does not feel well at all. Having nonstop diarrhea and daily headaches which she thinks may be from the carvedilol. Also feels very fatigued when her blood pressure gets high. She also previously had praluent prescribed through a prior aircraft fuselage framer and is wondering if Dr. Howell would refill for her to [facility]. Dr. Howell, see update from Richa. She also is requesting that you fill her praluent, are you okay with taking over that prescription? * Yanci Adkins RN - 12/07/2023 1:42 PM CDT Left message for patient to return call to clinic. * Yanci Adkins RN - 12/06/2023 10:44 AM CDT Called Richa; she is just leaving for appointments. Will call back tomorrow afternoon per patient request. * Yanci Adkins RN - 12/06/2023 9:51 AM CDT Voicemail received from Richa requesting a call back to discuss blood pressure readings since increasing carvedilol dose. documented in this encounter Plan of Treatment Upcoming Encounters Date Type Department Care Team (Late st Contact Info) Description 12/15/2023 12:40 PM CDT Appointment [facility] [place] [address] Cardiology [address] [place] [phone] Rosa Elena Huynh PA-C 6500 [place], [place] [address] 12/22/2023 10:45 AM CDT Appointment [facility] [address] [place], [place] [phone] Desilet, Luke W, DO 3800 [place], [place] [address] 01/06/2024 1:30 PM CDT Appointment [facility] [place] [address] Cardiology [address] [place] [phone] Wilfredo Howell III, MD [address] [place], [place] [address] 01/24/2024 9:00 AM CDT Appointment [facility] [place] [address] Electrophysiology [address] [place] [phone] documented as of this encounter Visit Diagnoses Not on filedocumented in this encounter Care Teams Oil Well Gun Perforator Operator Relationship Specialty Start Date End Date Dalton Esqueda MD [address] [place] [address] PCP - General Family Practice 06/23/23 documented as of this encounter
--- OUTSIDE RECORDS SUMMARY | 2023-12-12 20:27 | XMS_ITS | Encounter Summary ---
Author Organization [employer] Address [address] [place] [address] Care Team Providers Care Electrician Master Name Role Phone Dalton Esqueda MD Primary Care Provider [phone] Reason for Visit * Reason Onset Date Comments Refill 09/22/2023 Encounter Details Date Type Department Care Team (Late st Contact Info) Description 09/22/2023 Refill [facility] 3800 Rheumatology [address] [facility]. [place], [place] [phone] Juliann Echols, DO 3800 [place], [place] [phone] Refill Social History Tobacco Use Types Packs/Day [...] 12/15/2023 12:40 PM CDT Appointment [facility] [place] [address] Cardiology [address] [place] [phone] Rosa Elena Huynh PA-C [address] [place], [place] [phone] 12/22/2023 10:45 AM CDT Appointment [facility] [address] [place], [place] [phone] Desilet, Juliann W, DO 3800 [place], [place] [address] 01/06/2024 1:30 PM CDT Appointment [facility] [place] [address] Cardiology [address] [place] [phone] Wilfredo Howell III, MD 6500 [place], [place] [address] 01/24/2024 9:00 AM CDT Appointment [facility] [place] [address] Electrophysiology [address] [place] [phone] documented as of this encounter Visit Diagnoses Not on filedocumented in this encounter Care Teams Electrician Master Relationship Specialty Start Date End Date Dalton Esqueda MD [address] [place] [address] PCP - General Family Practice 06/23/23 documented as of this encounter
--- OUTSIDE RECORDS SUMMARY | 2023-12-12 20:27 | XMS_ITS | Encounter Summary ---
Author Organization [employer] Address [address] [place] [address] Care Team Providers Care Specimen Preparation Assistant Name Role Phone Dalton Esqueda MD Primary Care Provider [phone] Reason for Visit * Reason Comments Follow-up Encounter Details Date Type Department Care Team (Late st Contact Info) Description 10/13/2023 3:30 PM CDT [facility] [address] Cardiology [address] [place] [address] Wilfredo Howell III, MD [address] [place] [address] Hypertension, unspecified type (HRC) (Primary [...] every week. Take 30 minutes before first [id number]. Avoid lying down for 30 minutes. 12 [...] 5' 5 (165.1 cm) Wt 126 lb (28025 g) BMI 20.97 kg/m?? Estimated body mass index is 20.97 kg/m?? as calculated from the following: Height as of this encounter: 5' 5 (165.1 cm). Weight as of this encounter: 126 lb (68702 g). GEN- patient awake alert and conversant [...] medical records, cardiac tests, and time spent [id number] with patient. documented in this encounter Plan of Treatment Upcoming Encounters Date Type Department Care Team (Late st Contact Info) Description 12/15/2023 12:40 PM CDT Appointment [facility] [place] [address] Cardiology [address] [place] [address] Rosa Elena Huynh PA-C 6500 [place], [place] [address] 12/22/2023 10:45 AM CDT Appointment [facility] [address] [place] [address] Desilet, Freeman W, DO 38[address] [place] [address] 01/06/2024 1:30 PM CDT Appointment [facility] [address] Cardiology [address] [place] [address] Wilfredo Howell III, MD [address] [place] [address] 01/24/2024 9:00 AM CDT Appointment [facility] [address] Electrophysiology [address] [place] [phone] documented as of this encounter Visit Diagnoses Diagnosis Hypertension, unspecified type (HRC)- Primary Tobacco use disorder (HRC) Tobacco use disorder PAD (peripheral artery disease) (HRC) Unspecified disorders of arteries and arterioles Mixed hyperlipidemia (HRC) Mixed hyperlipidemia documented in this encounter Care Teams Specimen Preparation Assistant Relationship Specialty Start Date End Date Dalton Esqueda MD [address] [place] [address] PCP - General Family Practice 06/23/23 documented as of this encounter
--- OUTSIDE RECORDS SUMMARY | 2023-12-12 20:27 | XMS_ITS | Encounter Summary ---
Author Organization [employer] Address [address] [place] [address] Care Team Providers Care Medical Scientist Name Role Phone Dalton Esqueda MD Primary Care Provider [phone] Reason for Visit * Reason Comments Medication Follow Up Encounter Details Date Type Department Care Team (Late st Contact Info) Description 10/10/[address] [facility] [address] [place] [address] Eva Long MD [address] [place] [address] Medication Follow Up Social History Tobacco [...] like to use goodrx and go through [facility] in [facility]. Transferred prescription per protocol * Eva Long MD - 10/10/2023 12:50 PM CDT Please let her know that the tacrolimus was not covered. With GoodRx, [facility] pharmacy or [facility] you can get [...] 12/15/2023 12:40 PM CDT Appointment [facility] [place] [address] Cardiology [address] [place] [phone] Rosa Elena Huynh PAYani 9960 [place], [place] [address] 12/22/2023 10:45 AM CDT Appointment [facility] [address] [place], [place] [address] Desilet, Freeman W, DO 3800 [place] [address] 01/06/2024 1:30 PM CDT Appointment [facility] [place] [address] Cardiology [address] [place] [phone] Wilfredo Howell III, MD 0330 [place], [place] [address] 01/24/2024 9:00 AM CDT Appointment [facility] [place] [address] Electrophysiology [address] [place] [phone] documented as of this encounter Visit Diagnoses Diagnosis Lupus (HRC) Systemic lupus erythematosus documented in this encounter Care Teams Medical Scientist Relationship Specialty Start Date End Date Dalton Esqueda MD [address] [place] [address] PCP - General Family Practice 06/23/23 documented as of this encounter
--- OUTSIDE RECORDS SUMMARY | 2023-12-12 20:27 | XMS_ITS | Encounter Summary ---
Author Organization [employer] Address [address] [place] [address] Care Team Providers Care Stone Gluer Name Role Phone Dalton Esqueda MD Primary Care Provider [phone] Reason for Visit * Reason Comments LAB RESULTS Encounter Details Date Type Department Care Team (Late st Contact Info) Description 09/23/2023 Telephone [facility] 3800 Rheumatology [address] [facility] [address] Desilet, Luke W, DO [address] [place] [address] LAB RESULTS Social History Tobacco [...] 12/15/2023 12:40 PM CDT Appointment [facility] [place] [address] Cardiology [address] [place] [phone] Rosa Elena Huynh PA-C 8743 [place], [place] [address] 12/22/2023 10:45 AM CDT Appointment [place] [facility] [address] [place] [address] Freemna Lopez DO 3800 [place], [place] [address] 01/06/2024 1:30 PM CDT Appointment [facility] [place] [address] Cardiology [address] [place] [phone] Wilfredo Howell III, MD 7430 [place], [place] [phone] 01/24/2024 9:00 AM CDT Appointment [facility] [address] Electrophysiology [address] [place] [address] documented as of this encounter Visit Diagnoses Not on filedocumented in this encounter Care Teams Stone Gluer Relationship Specialty Start Date End Date Dalton Esqueda MD [address] [place] [address] PCP - General Family Practice 06/23/23 documented as of this encounter
--- OUTSIDE RECORDS SUMMARY | 2023-12-12 20:27 | XMS_ITS | Encounter Summary ---
Author Organization [employer] Address [address] [place] [address] Care Team Providers Care Brake Holder Name Role Phone Dalton Esqueda MD Primary Care Provider [phone] Encounter Details Date Type Department Care Team (Late st Contact Info) Description 09/22/2023 1:30 PM CDT Lab Visit [facility] [address] [place] [address] Systemic lupus erythematosus, unspecified SLE type, unspecified [...] 12/15/2023 12:40 PM CDT Appointment [facility] [place] [address] Cardiology [address] [place] [address] Rosa Elena Huynh PA-C [address] [place], [place] [phone] 12/22/2023 10:45 AM CDT Appointment [facility] [address] [place], [place] [phone] Desilet, Freeman W, DO [address] [place] [address] 01/06/2024 1:30 PM CDT Appointment [facility] [address] Cardiology [address] [place] [address] Wilfredo Howell III, MD 6500 [place] [address] 01/24/2024 9:00 AM CDT Appointment [facility] [address] Electrophysiology [address] [place] [address] documented as of this encounter [...] TP/Crea Ratio, Urine (09/22/2023 11:21 AM CDT) Pathologist [facility] TP/Creat Ratio, Urine Random 0.17 0.00 - 0.20 09/22/2023 4:26 PM CDT [facility] Total Protein, Urine, Random 3 0 - 14 mg/dL 09/22/2023 4:26 PM CDT [facility] Creatinine, Urine, Random 18 >20 mg/dL mg/dL 09/22/2023 4:26 PM CDT [facility] Comment:The overall interpre tation for this test is normal (the ratio is within the reference interval). Individual test components may fall outside the reference interval but still give a normal overall test result. Urine URINE SPECIMEN COLLECTION, CLEAN CATCH / Unknown Non-blood Collection / Unknown 09/22/2023 11:21 AM CDT 09/22/2023 11:21 AM CDT [facility] - 09/22/2023 4:26 PM CDT Low urine creatinine values coupled with low urine protein values can artifactually increase the urine protein/creatinine results. Correlate results of ratio with creatinine results. Freeman Fong Desilet DO LAB_1 [facility] [address] * (ABNORMAL) Urinalysis Routine, Micro/Culture if Pos: Clean Catch (09/22/2023 11:21 AM CDT) Pathologist [facility] Urine Culture Comment Urinalysis results do not meet criteria for urine culture reflex. 09/22/2023 11:28 AM [facility] Urine Color Straw 09/22/2023 11:28 AM [facility] Urine Clarity Clear Clear 09/22/2023 11:28 AM [facility] Specific [place], Urine <=1.005(A) 1.005 - 1.030 09/22/2023 11:28 AM [facility] PH Urine 6.0 5.0 - 8.0 09/22/2023 11:28 AM [facility] Protein, Urine Qual (mg/dL) Negative Neg/Trace 09/22/2023 11:28 AM [facility] Glucose Urine Qual (mg/dL) Negative Negative 09/22/2023 11:28 AM [facility] Ketones, Urine (mg/dL) Negative Negative 09/22/2023 11:28 AM [facility] Urobilinogen, Urine (EU/dL) 0.2 <2.0 09/22/2023 11:28 AM [facility] Bilirubin Urine Negative Negative 09/22/2023 11:28 AM [facility] Blood, Urine Negative Neg/Trace 09/22/2023 11:28 AM [facility] Nitrite Urine Negative Negative 09/22/2023 11:28 AM [facility] Leukocyte Est. Negative Negative 09/22/2023 11:28 AM [facility] Urine Source Clean Catch 09/22/2023 11:28 AM [facility] Urine URINE SPECIMEN COLLECTION, CLEAN CATCH / Unknown Non-blood Collection / Unknown 09/22/2023 11:21 AM T 09/22/2023 11:21 AM T Luke W Desilet DO LAB_1 Performing Organization Address City/State/[facility] Co de Phone Number [facility] [address] [place] [address] * Complete Blood Count-W/Diff (09/22/2023 11:16 AM T) WBC 8.6 3.5 - 10.5 x10(9)/L 09/22/2023 11:20 AM [facility] RBC 3.96 3.90 - 5.03 x10(12)/L 09/22/2023 11:20 AM [facility] Hemoglobin 12.5 12.0 - 15.5 g/dL 09/22/2023 11:20 AM [facility] HCT 37.4 34.9 - 44.5 % 09/22/2023 11:20 AM [facility] MCV 94.4 80.0 - 100.0 fL 09/22/2023 11:20 AM [facility] MCH 31.6 27.6 - 33.3 pg 09/22/2023 11:20 AM [facility] MCHC 33.4 31.5 - 35.2 g/dL 09/22/2023 11:20 AM [facility] RDW 14.5 11.9 - 15.5 % 09/22/2023 11:20 AM [facility] Platelets 235 150 - 450 x10(9)/L 09/22/2023 11:20 AM [facility] Automated NRBC 0 <=0 /100 WBC 09/22/2023 11:20 AM [facility] Neutrophil Absolute 7.0 1.7 - 7.0 10(9)/L 09/22/2023 11:20 AM [facility] Lymphocyte Absolute 1.1 1.0 - 4.8 10(9)/L 09/22/2023 11:20 AM [facility] Monocyte Absolute 0.4 0.2 - 0.9 10(9)/L 09/22/2023 11:20 AM [facility] Eosinophil Absolute 0.0 0.0 - 0.5 10(9)/L 09/22/2023 11:20 AM [facility] Basophil Absolute 0.0 0.0 - 0.3 10(9)/L 09/22/2023 11:20 AM [facility] Immature Granulocyte % 0.5 0.0 - 0.5 % 09/22/2023 11:20 AM [facility] Blood Venipuncture / Unknown 09/22/2023 11:16 AM CDT 09/22/2023 11:16 AM CDT Freeman Fong Desilet DO LAB_1 [facility] [address] [place] [address], [facility] * (ABNORMAL) C4 Complement (09/22/2023 11:16 AM CDT) [facility] C4 Complement 13.0(L) 15.0 - 57.0 mg/dL 09/22/2023 4:37 PM CDT [facility] Blood Venipuncture / Unknown 09/22/2023 11:16 AM CDT 09/22/2023 11:16 AM CDT Sheryl W Desilet DO LAB_1 Performing Organization Address [facility] Co de Phone Number [facility] [address] * C3 Complement (09/22/2023 11:16 AM CDT) C3 Complement 85 83 - 193 mg/dL 09/22/2023 4:37 PM CDT [facility] Blood Venipuncture / Unknown 09/22/2023 11:16 AM CDT 09/22/2023 11:16 AM CDT [facility] Desilet LAB_1 Performing Organization Address [facility] de Phone Number [facility] [address] * (ABNORMAL) Comp Metabolic Panel (09/22/2023 11:16 AM CDT) Sodium 140 136 - 145 mmol/L 09/22/2023 1:44 PM [facility] Potassium 4.9 3.5 - 5.1 mmol/L 09/22/2023 1:44 PM [facility] Chloride 108 98 - 109 mmol/L 09/22/2023 1:44 PM [facility] CO2 20 20 - 29 mmol/L 09/22/2023 1:44 PM [facility] Anion Gap 12 6 - 16 mmol/L 09/22/2023 1:44 PM [facility] Calcium 10.2 8.4 - 10.4 mg/dL 09/22/2023 1:44 PM [facility] BUN 37(H) 7 - 26 mg/dL 09/22/2023 1:44 PM [facility] Creatinine 0.94 0.55 - 1.02 mg/dL 09/22/2023 1:44 PM [facility] Alkaline Phosphatase 34(L) 40 - 150 U/L 09/22/2023 1:44 PM [facility] AST (SGOT) 21 10 - 40 U/L 09/22/2023 1:44 PM [facility] ALT (SGPT) 18 <=55 U/L 09/22/2023 1:44 PM [facility] Bilirubin, Total 0.3 0.2 - 1.2 mg/dL 09/22/2023 1:44 PM [facility] Protein, Total 7.0 6.4 - 8.3 g/dL 09/22/2023 1:44 PM [facility] Albumin 4.0 3.5 - 5.0 g/dL 09/22/2023 1:44 PM [facility] Glucose 119(H) 70 - 100 mg/dL 09/22/2023 1:44 PM [facility] Comment:The given reference range is for the fasting state. Non-fasting reference range for glucose is 70 - 180 mg/dL. GFR, Estimated >60 >60 mL/min/1.7 3m2 09/22/2023 1:44 PM [facility] Hours Fasting 0.1 8 - 12 Hours 09/22/2023 1:44 PM [facility] Comment:Lab unable to obtain patient's fasting status at time of specimen collection. Blood Venipuncture / Unknown 09/22/2023 11:16 AM CDT 09/22/2023 11:16 AM CDT Luke W Desilet DO LAB_1 Performing Organization Address City/State/[facility] Co de Phone Number [facility] [address] [place] [address] documented in this encounter Visit Diagnoses Diagnosis Systemic lupus erythematosus, unspecified SLE type, unspecified organ involvement status (HRC) documented in this encounter Care Teams Brake Holder Relationship Specialty Start Date End Date Dalton Esqueda MD [address] [place] [address] PCP - General Family Practice 06/23/23 documented as of this encounter
--- OUTSIDE RECORDS SUMMARY | 2023-12-12 20:27 | XMS_ITS | Patient Health Record ---
Author Organization [facility] Address [address] [place] [address] [address] [place] [address] Care Team Providers Care Metal Casket Assembler Name Role Phone Dalton Pena MD Primary Care Provider Unavailable Rambo Raymond Unavailable [phone] Dalton Dale MD Unavailable Unavail able Allergies Allergen (clinical drug ingredient) Drug/Non Drug Allergy [...] Unknown Drug Allergy Activ e Substance with 8-jecwapu-4-methylglutar yl-coenzyme A reductase inhibitor mechanism of action (substance) Statins Unknown Drug Allergy Active sulfasalazine Sulfasalazine Unknown Drug Allergy Active venlafaxine Venlafaxine Unknown Drug Allergy Act epi Reason For Referral No Information Medications Medication SIG (Take, Route, Frequency, Duration) Notes Start Date End Date Status Mupirocin 2 % 1 application Safety Instructor ally Twice a day Active Temovate 0.05 % 1 application Safety Instructor ally Twice a day Active Ondansetron Active [...] 1 tablet Orally Once a day Active Problems Problem Type SNOMED Code ICD Code Onset Dates Problem Status W/U Status Risk Notes Problem Systemic lupus erythematosus (89222593) Systemic lupus erythematosus, unspecified (M32.9) Active confirmed Problem Cervical spondylosis without myelopathy (409990969) Spondylosis without myelopathy or radiculopathy, cervical region (M47.812) Active confirmed Problem Lumbosacral spondylosis without myelopathy (18084943) Spondylosis without myelopathy or radiculopathy, lumbar region (M47.816) Active confirmed Problem Backache (045713436) Dorsalgia, unspecified (M54.9) Active confirmed Problem 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) Muscle wasting and atrophy, not elsewhere classified, multiple sites (M62.59) Active confirmed Problem Impingement syndrome of shoulder region (065906942) Impingement syndrome of right shoulder (M75.41) Active confirmed Problem Age-related osteoporosis (133969679) Age-related osteoporosis without current pathological fracture (M81.0) Active confirmed Problem Abnormal gait (16371949) Unspecified abnormalities of gait and mobility (R26.9) Active confirmed Problem Neck pain (59978397) Neck pain (M54.2) Active confirmed Problem Headache disorder (716539227) Headache disorder (R51.9) Active confirmed Problem Low back pain (586334784) Low back pain (M54.50) Active confirmed Plan Of Treatment No Information Insurance Providers Payer Name Payer Address Payer Phone Subscriber Number Group Number Insured Name Patient Relationship to Insured Coverage Start Date Coverage End Date Medicare Part B [employer] [address] [place] [phone] [id number] Nicolle Soto Self - patient is the insured 9 [facility] [address] [address] [place] [address] [id number] Nicolle Soto Self - patient is the insured 9 Medical (General) History Medical History History ICD Code General Past [...]
--- OUTSIDE RECORDS SUMMARY | 2023-12-12 20:27 | XMS_ITS | Encounter Summary ---
Author Organization [employer] Address [address] [place] [address] Care Team Providers Care Build Master Name Role Phone Dalton Esqueda MD Primary Care Provider [phone] Reason for Visit * Reason Comments Hypertension Encounter Details Date Type Department Care Team (Late st Contact Info) Description 10/24/2023 [facility]phone [facility] [address] [employer] [place], [place] [phone] Wilfredo Howell III, MD [address] [place], [place] [phone] Hypertension Social History Tobacco Use Types Packs/Day [...] Nursing Notes * Yanci Adkins RN - 10/24/2023 3:54 PM CDT Spoke to Richa; discussed Dr. Howell's recommendation. She states she is scared to try to increase hercarvedilol again as it caused dizziness. Discussed that the hope is with slower titration and taking the increased dose at bedtime she would tolerate it better. She states that something's gotta give and she can't tolerate being off of her meloxicam. Recommended that she talk with her PCP to discuss pain management, she states that there is nothing else that will help her. Discussed that stopping the meloxicam was recommended by Dr. Howell due to it increasing blood pressure. Offered patient another appointment with an [place], she declined. Discussed that her other option would be to present to the ER as discussed at her office visit. She states she is very frustrated and doesn't know what she is going to do. * Yanci Adkins RN - 10/24/2023 1:42 PM CDT Images from the original note were not included. Wilfredo Howell III, MD to Me 10/24/23 1:11 PM Yes. Me to Wilfredo Howell III, MD KB 10/24/23 12:03 PM Nicolle did not tolerate carvedilol 6.25 mg BID due to dizziness, I have a feeling she will decline this option. Should I see if she would agree to 3.125 in the AM and 6.25 in the PM to start? Wilfredo Howell III, MD to Me 10/24/23 11:27 AM Please have her increase Coreg to 12.5 mg twice daily (new prescription sent electronically). Too bad about the Entresto. * Yanci Adkins RN - 10/24/2023 10:05 AM CDT Voicemail received from Richa; she requests a call back to discuss elevated blood pressures. Called Richa; she reports the following blood pressures: 172/75 (10/23) 196/80 159/66 141/70 140/56 161/72 194/75 196/83 161/76 158/66 196/86 189/75 152/67 She reports she has had [address] Howell >200 systolic, last on 10/17 205/78. She looked into the cost of Entresto and it would be too cost restrictive for her ($500 for one month). She states that she is struggling with all over pain since stopping the meloxicam. Last office visit with Dr. Howell 10/13/23: [...] tolerating Zetia, intolerant to multiple statins per report.2 documented in this encounter Plan of Treatment Upcoming Encounters Date Type Department Care Team (Late st Contact Info) Description 12/15/2023 12:40 PM CDT Appointment [facility] [address] Cardiology [address] [place] [phone] Rosa Elena Huynh PA-C 6[address] [place], [place] [address] 12/22/2023 10:45 AM CDT Appointment [facility] [address] [place], [place] [address] Desilet, Freeman W, DO [address] [place] [address] 01/06/2024 1:30 PM CDT Appointment [facility] [address] Cardiology [address] [place] [phone] Wilfredo Howell III, MD 6[address] [place], [place] [address] 01/24/2024 9:00 AM CDT Appointment [facility] [address] Electrophysiology [address] [place] [address] documented as of this encounter Visit Diagnoses Not on filedocumented in this encounter Care Teams Build Master Relationship Specialty Start Date End Date Dalton Esqueda MD [address] [place] [address] PCP - General Family Practice 06/23/23 documented as of this encounter
--- OUTSIDE RECORDS SUMMARY | 2023-12-12 20:27 | XMS_ITS | Encounter Summary ---
Author Organization [employer] Address [address] [place] [address] Care Team Providers Care Dental Equipment Installer And Servicer Name Role Phone Dalton Esqueda MD Primary Care Provider [phone] Reason for Visit * Reason Comments Lupus Rash is a lot better , has been going to the pool for water walking and has dried it up. Encounter Details Date Type Department Care Team (Late st Contact Info) Description 10/04/2023 10:00 AM CDT Office Visit [facility] [address] [place], [place] [phone] Eva Long MD [address] [place] [address] Lupus (HRC) (Primary Dx); Hair loss [...] months of regular use before we can insulation cutter and former your response to this medication. - You [...] of tinea corporis. Today: Reports that the travel insurance agent increased her CellCept to 1 g twice [...] and Family History: Reviewed and updated in [facility] Social History: She lives in [place] Medications: The patient has a current medication [...] needed per patient preference. Eva Long MD [facility] documented in this encounter Plan of Treatment Upcoming Encounters Date Type Department Care Team (Late st Contact Info) Description 12/15/2023 12:40 PM CDT Appointment [facility] [place] [address] Cardiology [address] [place] [phone] Rosa Elena Huynh PA-C 6[address] [place], [place] [address] 12/22/2023 10:45 AM CDT Appointment [facility] [address] [place], [place] [phone] Desilet, Freeman W, DO 3800 [place] [address] 01/06/2024 1:30 PM CDT Appointment [facility] [address] Cardiology [address] [place] [phone] Wilfredo Howell III, MD 6500 [place], [place] [address] 01/24/2024 9:00 AM CDT Appointment [facility] [place] [address] Electrophysiology [address] [place] [phone] documented as of this encounter Visit Diagnoses Diagnosis Lupus (HRC)- Primary Systemic lupus erythematosus Hair loss Alopecia, unspecified documented in this encounter Care Teams Dental Equipment Installer And Servicer Relationship Specialty Start Date End Date Dalton Esqueda MD [address] [place] [address] PCP - General Family Practice 06/23/23 documented as of this encounter
--- OUTSIDE RECORDS SUMMARY | 2023-12-12 20:27 | XMS_ITS | Encounter Summary ---
Author Organization [employer] Address [address] [place] [address] Care Team Providers Care International Trade Compliance Manager Name Role Phone Dalton Esqueda MD Primary Care Provider [phone] Reason for Visit * Reason Comments BLOOD PRESSURE, HIGH Encounter Details Date Type Department Care Team (Late st Contact Info) Description 09/09/2023 [facility] [address] [place], [place] [phone] Wilfredo Howell III, MD [address] [place] [address] BLOOD PRESSURE, HIGH Social History [...] 12/15/2023 12:40 PM CDT Appointment [facility] [address] Cardiology [address] [place] [phone] Rosa Elena Huynh PA-C 6500 [place], [place] [phone] 12/22/2023 10:45 AM CDT Appointment [facility] [address] [place], [place] [phone] Desilet, Freeman W, DO 38[address] [place], [place] [address] 01/06/2024 1:30 PM CDT Appointment [facility] [place] [address] Cardiology [address] [place] [phone] Wilfredo Howell III, MD 6500 [place], [place] [address] 01/24/2024 9:00 AM CDT Appointment [facility] [address] Electrophysiology [address] [place] [phone] documented as of this encounter Visit Diagnoses Not on filedocumented in this encounter Care Teams International Trade Compliance Manager Relationship Specialty Start Date End Date Dalton Esqueda MD [address] [place] [address] PCP - General Family Practice 06/23/23 documented as of this encounter
--- OUTSIDE RECORDS SUMMARY | 2023-12-12 20:27 | XMS_ITS | Encounter Summary ---
Author Organization [employer] Address [address] [place] [address] Care Team Providers Care Quarry Plant Crusher Operator Name Role Phone Dalton Esqueda MD Primary Care Provider Encounter Details Date Type Department Care Team (Late Contact Info) Description 10/24/2023 Notes/Orders [facility] Card[facility] [address] [facility]. [place], [place] [phone] Wilfredo Howell III, MD 6[address] [place], [place] [phone] Social History Tobacco Use Types Packs/Day Years [...] Encounters Date Type Department Care Team (Late Contact Info) Description 12/15/2023 12:40 PM CDT Appointment [facility] [address] Cardiology [address] [place] [phone] Rosa Elena Huynh PA-C 6500 [place], [place] [phone] 12/22/2023 10:45 AM CDT Appointment [facility] [address] [place] [address] Freeman Lopez W, DO [address] [place] [address] 01/06/2024 1:30 PM CDT Appointment [facility] [address] Cardiology [address] [place] [phone] Wilfredo Howell III, MD [address] [place], [place] [address] 01/24/2024 9:00 AM CDT Appointment [facility] [address] Electrophysiology [address] [place] [address] documented as of this encounter Visit Diagnoses Not on filedocumented in this encounter Care Teams Quarry Plant Crusher Operator Relationship Specialty Start Date End Date Dalton Esqueda MD [address] [place] [address] PCP - General Family Practice 06/23/23 documented as of this encounter
--- OUTSIDE RECORDS SUMMARY | 2023-12-12 20:27 | XMS_ITS | Encounter Summary ---
Author Organization [employer] Address [address] [place] [address] Care Team Providers Care Fire Apparatus Engineer Name Role Phone Dalton Esqueda MD Primary Care Provider [phone] Reason for Visit * Reason Comments Follow-up Encounter Details Date Type Department Care Team (Late st Contact Info) Description 09/22/2023 10:45 AM CDT Office Visit [facility] [address] [place] [address] Desilet, Luke W, DO 3800 [place] [address] Systemic lupus erythematosus, unspecified SLE [...] dose today. 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 It [...] on 10/26/2023 when you were in the [facility] for other visits. Follow up with [...] with several outside rheumatologists (Dr. Louis at [facility] and Dr. Cordova at [facility]) - several prior medication intolerances as noted below - at presentation to [facility] rheumatology February 2023, appeared to [...] twice a day Prednisone 7.5 mg daily (group home) Hydroxychloroquine 200 mg daily (February 2023-present) Oral [...] Reviewed recent relevant results: Surgical Path, Dermatology: [id number] Order: [id number] Collected 07/05/2023 13:17 Status: Final result Visible [...] of the technical staining was performed at [facility], [address] [place] [address]. Gross Description A: Received in formalin, labeled [...] 12/15/2023 12:40 PM CDT Appointment [facility] [address] Cardiology [address] [place] [phone] Rosa Elena Huynh PA-C 6[address] [place], [place] [phone] 12/22/2023 10:45 AM CDT Appointment [facility] [address] [place], [place] [phone] DesiletFreeman, DO 3800 [place], [place] [address] 01/06/2024 1:30 PM CDT Appointment [facility] [address] Cardiology [address] [place] [phone] Wilfredo Howell III, MD [address] [place], [place] [phone] 01/24/2024 9:00 AM CDT Appointment [facility] [address] Electrophysiology [address] [place] [phone] documented as of this encounter Results * (ABNORMAL) Comp Metabolic Panel (10/26/2023 11:04 AM CDT) [facility] Signature Sodium 139 136 - 145 mmol/L 10/26/2023 1:06 PM CDT [facility] Potassium 4.9 3.5 - 5.1 mmol/L 10/26/2023 1:06 PM CDT [facility] Chloride 106 98 - 109 mmol/L 10/26/2023 1:06 PM CDT [facility] CO2 23 20 - 29 mmol/L 10/26/2023 1:06 PM CDT [facility] Anion Gap 10 6 - 16 mmol/L 10/26/2023 1:06 PM [facility] Calcium 10.5(H) 8.4 - 10.4 mg/dL 10/26/2023 1:06 PM [facility] Comment:Low serum albumin ma y artificially lower total calcium, without impacting ionized calcium concentrations. If patient has or is at risk for hypoalbuminemia, consider ionized serum calcium to more accurately assess calcium status. BUN 36(H) 7 - 26 mg/dL 10/26/2023 1:06 PM [facility] Creatinine 1.18(H) 0.55 - 1.02 mg/dL 10/26/2023 1:06 PM [facility] Alkaline Phosphatase 38(L) 40 - 150 U/L 10/26/2023 1:06 PM [facility] AST (SGOT) 22 10 - 40 U/L 10/26/2023 1:06 PM [facility] ALT (SGPT) 16 <=55 U/L 10/26/2023 1:06 PM [facility] Bilirubin, Total 0.4 0.2 - 1.2 mg/dL 10/26/2023 1:06 PM [facility] Protein, Total 7.0 6.4 - 8.3 g/dL 10/26/2023 1:06 PM [facility] Albumin 3.7 3.5 - 5.0 g/dL 10/26/2023 1:06 PM [facility] Glucose 105(H) 70 - 100 mg/dL 10/26/2023 1:06 PM [facility] Comment:The given reference range is for the fasting state. Non-fasting reference range for glucose is 70 - 180 mg/dL. GFR, Estimated 50(L) >60 mL/min/1. 73m2 10/26/2023 1:06 PM [facility] Hours Fasting 2.0 8 - 12 Hours 10/26/2023 1:06 PM [facility] Blood Venipuncture / Unknown 10/26/2023 11:04 AM CDT 10/26/2023 11:04 AM [facility] - 10/26/2023 1:[address] [facility] The National Kidney Disease Education Program suggests measuring Cystatin C in patients with eGFRcrea of 45 to 59 ml/min/1.73^2 who do not have other markers of kidney damage (i.e. elevated urine Albumin/Creatinine Ratio or a prior Cystatin C confirming the presence of chronic kidney disease). Sheryl CrossCore Desilet DO LAB_1 Performing Organization Address [facility]/ZIP Co de Phone Number [facility] [address] [place] [address], [facility] * TP/Crea Ratio, Urine (09/22/2023 11:21 AM [...] Correlate results of ratio with creatinine results. Sheryl CrossCore Desilet DO LAB_1 Performing Organization Address [facility]/ZIP Co de Phone Number [facility] [address] [place] [address], [facility] * (ABNORMAL) Urinalysis Routine, Micro/Culture if Pos: Clean Catch (09/22/2023 11:21 AM CDT) Pathologist [facility] Urine Culture Comment Urinalysis results do not meet criteria for urine culture reflex. 09/22/2023 11:28 AM CDT [facility] Urine Color Straw 09/22/2023 11:28 AM CDT [facility] Urine Clarity Clear Clear 09/22/2023 11:28 AM [facility] Specific [place], Urine <=1.005(A) 1.005 - 1.030 09/22/2023 11:28 AM [facility] PH Urine 6.0 5.0 - 8.0 09/22/2023 11:28 AM [facility] Protein, Urine Qual (mg/dL) Negative Neg/Trace 09/22/2023 11:28 AM [facility] Glucose Urine Qual (mg/dL) Negative Negative 09/22/2023 11:28 AM [facility] Ketones, Urine (mg/dL) Negative Negative 09/22/2023 11:28 AM [facility] Urobilinogen, Urine (EU/dL) 0.2 <2.0 09/22/2023 11:28 AM [facility] Bilirubin Urine Negative Negative 09/22/2023 11:28 AM [facility] Blood, Urine Negative Neg/Trace 09/22/2023 11:28 AM [facility] Nitrite Urine Negative Negative 09/22/2023 11:28 AM [facility] Leukocyte Est. Negative Negative 09/22/2023 11:28 AM [facility] Urine Source Clean Catch 09/22/2023 11:28 AM [facility] Urine URINE SPECIMEN COLLECTION, CLEAN CATCH / Unknown Non-blood Collection / Unknown 09/22/2023 11:21 AM CDT 09/22/2023 11:21 AM CDT Luke W Desilet DO LAB_1 [facility] [address] [place] [address] * (ABNORMAL) C4 Complement (09/22/2023 11:16 AM CDT) C4 Complement 13.0(L) 15.0 - 57.0 mg/dL 09/22/2023 4:37 PM T [facility] Blood Venipuncture / Unknown 09/22/2023 11:16 AM CDT 09/22/2023 11:16 AM CDT Freeman Fong Desilet DO LAB_1 Performing Organization Address [facility]/ZIP Co de Phone Number [facility] [address] * C3 Complement (09/22/2023 11:16 AM CDT) C3 Complement 85 83 - 193 mg/dL 09/22/2023 4:37 PM CDT [facility] Blood Venipuncture / Unknown 09/22/2023 11:16 AM CDT 09/22/2023 11:16 AM CDT Freeman Fong Desilet DO LAB_1 Performing Organization Address [facility] de Phone Number [facility] [address] * (ABNORMAL) Comp Metabolic Panel (09/22/2023 11:16 AM CDT) Pathologist [facility] Sodium 140 136 - 145 mmol/L 09/22/2023 1:44 PM [facility] Potassium 4.9 3.5 - 5.1 mmol/L 09/22/2023 1:44 PM [facility] Chloride 108 98 - 109 mmol/L 09/22/2023 1:44 PM [facility] CO2 20 20 - 29 mmol/L 09/22/2023 1:44 PM [facility] Anion Gap 12 6 - 16 mmol/L 09/22/2023 1:44 PM [facility] Calcium 10.2 8.4 - 10.4 mg/dL 09/22/2023 1:44 PM [facility] BUN 37(H) 7 - 26 mg/dL 09/22/2023 1:44 PM [facility] Creatinine 0.94 0.55 - 1.02 mg/dL 09/22/2023 1:44 PM [facility] Alkaline Phosphatase 34(L) 40 - 150 U/L 09/22/2023 1:44 PM [facility] AST (SGOT) 21 10 - 40 U/L 09/22/2023 1:44 PM [facility] ALT (SGPT) 18 <=55 U/L 09/22/2023 1:44 PM T [facility] Bilirubin, Total 0.3 0.2 - 1.2 mg/dL 09/22/2023 1:44 PM T [facility] Protein, Total 7.0 6.4 - 8.3 g/dL 09/22/2023 1:44 PM T [facility] Albumin 4.0 3.5 - 5.0 g/dL 09/22/2023 1:44 PM [facility] Glucose 119(H) 70 - 100 mg/dL 09/22/2023 1:44 PM T [facility] Comment:The given reference range is for the fasting state. Non-fasting reference range for glucose is 70 - 180 mg/dL. GFR, Estimated >60 >60 mL/min/1.7 3m2 09/22/2023 1:44 PM [facility] Hours Fasting 0.1 8 - 12 Hours 09/22/2023 1:44 PM [facility] Comment:Lab unable to obtain patient's fasting status at time of specimen collection. Blood Venipuncture / Unknown 09/22/2023 11:16 AM CDT 09/22/2023 11:16 AM CDT Freeman Fong Desilet DO LAB_1 Performing Organization Address City/State/[facility] [[email or web address]] Co de Phone Number [facility] [address] [place] [address], [facility] documented in this encounter Visit Diagnoses Diagnosis Systemic lupus erythematosus, unspecified SLE type, unspecified organ involvement status (HRC)- Primary High risk medication use Encounter for long-term (current) use of other medications Osteoporosis, unspecified osteoporosis type, unspecified pathological fracture presence (HRC) Essential hypertension (HRC) Unspecified essential hypertension documented in this encounter Care Teams Fire Apparatus Engineer Relationship Specialty Start Date End Date Dalton Esqueda MD [address] [place] [address] PCP - General Family Practice 06/23/23 documented as of this encounter
--- OUTSIDE RECORDS SUMMARY | 2023-12-12 20:27 | XMS_ITS | Encounter Summary ---
Author Organization [employer] Address [address] [place] [address] Care Team Providers Care Mule Rider Name Role Phone Dalton Esqeuda MD Primary Care Provider [phone] Reason for Visit * Reason Comments UPDATE Encounter Details Date Type Department Care Team (Late st Contact Info) Description 10/03/2023 Telephone [facility] Cardiology [address] [employer] [place], [place] [phone] Wilfredo Howell III, MD [address] [place], [place] [phone] UPDATE Social History Tobacco Use Types Packs/Day [...] higher dose of carvedilol (6.25 mg BID). [place] okay on the lower dose. Any recommendations [...] 12/15/2023 12:40 PM CDT Appointment [facility] [address] Cardiology [address] [place] [phone] Rosa Elena Huynh PA-C 6500 [place] [address] 12/22/2023 10:45 AM CDT Appointment [facility] [address] [place] [address] Freeman Lopez, DO 3800 [place] [address] 01/06/2024 1:30 PM CDT Appointment [facility] [address] Cardiology [address] [place] [phone] [place] [address] [place] [address] 01/24/2024 9:00 AM CDT Appointment [facility] [address] Electrophysiology [address] [place] [phone] documented as of this encounter Visit Diagnoses Not on filedocumented in this encounter Care Teams Mule Rider Relationship Specialty Start Date End Date Dalton Esqueda MD [address] [place] [address] PCP - General Family Practice 06/23/23 documented as of this encounter
--- OUTSIDE RECORDS SUMMARY | 2023-12-12 20:27 | XMS_ITS | Encounter Summary ---
Author Organization [facility] Address [address] [place] [address] Care Team Providers Care Ear Machine Operator Name Role Phone Dalton Esqueda MD Primary Care Provider [phone] Encounter Details Date Type Department Care Team (Late st Contact Info) Description 10/26/2023 11:10 AM CDT Lab Visit [facility] [address] [place] [address] High risk medication use Social History Tobacco Use Types Packs/Day Years [...] 12/15/2023 12:40 PM CDT Appointment [facility] [address] [facility] [address] [place] [address] Rosa Elena Huynh PA-C [address] [place], [place] [id number] 12/22/2023 10:45 AM CDT Appointment [facility] [address] [place], [place] [id number] Desilet, Freeman W, DO [address] [place] [id number] 01/06/2024 1:30 PM CDT Appointment [facility] [id number] [address] [address] [place] [address] Wilfredo Howell III, MD [address] [place] [address] 01/24/2024 9:00 AM CDT Appointment [facility] [address] [facility] [address] [place] [address] documented as of this encounter Procedures Procedure Name Priority Date/Time Associated Diagnosis Comments CBC AND DIFFERENTIAL PANEL Routine 10/26/2023 11:04 AM CDT High risk medication use COMPLETE BLOOD COUNT-W/DIFF Routine 10/26/2023 11:04 AM CDT High risk medication use COMPREHENSIVE METABOLIC PANEL Routine 10/26/2023 11:04 AM CDT High risk medication use documented in this encounter Results * (ABNORMAL) Complete Blood Count-W/Diff (10/26/2023 11:04 AM CDT) [facility] Signature WBC 7.3 3.5 - 10.5 x10(9)/L 10/26/2023 11:07 AM [facility] RBC 3.89(L) 3.90 - 5.03 x10(12)/L 10/26/2023 11:07 AM [facility] Hemoglobin 12.0 12.0 - 15.5 g/dL 10/26/2023 11:07 AM [facility] HCT 36.3 34.9 - 44.5 % 10/26/2023 11:07 AM [facility] MCV 93.3 80.0 - 100.0 fL 10/26/2023 11:07 AM [facility] MCH 30.8 27.6 - 33.3 pg 10/26/2023 11:07 AM [facility] MCHC 33.1 31.5 - 35.2 g/dL 10/26/2023 11:07 AM [facility] RDW 13.5 11.9 - 15.5 % 10/26/2023 11:07 AM [facility] Platelets 271 150 - 450 x10(9)/L 10/26/2023 11:07 AM [facility] Automated NRBC 0 <=0 /100 WBC 10/26/2023 11:07 AM [facility] Neutrophil Absolute 5.6 1.7 - 7.0 10(9)/L 10/26/2023 11:07 AM [facility] Lymphocyte Absolute 1.2 1.0 - 4.8 10(9)/L 10/26/2023 11:07 AM [facility] Monocyte Absolute 0.4 0.2 - 0.9 10(9)/L 10/26/2023 11:07 AM [facility] Eosinophil Absolute 0.1 0.0 - 0.5 10(9)/L 10/26/2023 11:07 AM [facility] Basophil Absolute 0.0 0.0 - 0.3 10(9)/L 10/26/2023 11:07 AM [facility] Immature Granulocyte % 0.4 0.0 - 0.5 % 10/26/2023 11:07 AM [facility] Blood Venipuncture / Unknown 10/26/2023 11:04 AM CDT 10/26/2023 11:04 AM CDT Luke W Desilet DO LAB_1 Performing Organization Address City/State/[facility] Co de Phone Number [facility] [address] [place] [address] * (ABNORMAL) Comp Metabolic Panel (10/26/2023 11:04 AM CDT) Sodium 139 136 - 145 mmol/L 10/26/2023 1:06 PM [facility] Potassium 4.9 3.5 - 5.1 mmol/L 10/26/2023 1:06 PM [facility] Chloride 106 98 - 109 mmol/L 10/26/2023 1:06 PM [facility] CO2 23 20 - 29 mmol/L 10/26/2023 1:06 PM [facility] Anion Gap 10 6 - 16 mmol/L 10/26/2023 1:06 PM [facility] Calcium 10.5(H) 8.4 - 10.4 mg/dL 10/26/2023 1:06 PM [facility] Comment:Low serum albumin ma y artificially lower total calcium, without impacting ionized calcium concentrations. If patient has or is at risk for hypoalbuminemia, consider ionized serum calcium to more accurately assess calcium status. BUN 36(H) 7 - 26 mg/dL 10/26/2023 1:06 PM [facility] Creatinine 1.18(H) 0.55 - 1.02 mg/dL 10/26/2023 1:06 PM [facility] Alkaline Phosphatase 38(L) 40 - 150 U/L 10/26/2023 1:06 PM [facility] AST (SGOT) 22 10 - 40 U/L 10/26/2023 1:06 PM [facility] ALT (SGPT) 16 <=55 U/L 10/26/2023 1:06 PM [facility] Bilirubin, Total 0.4 0.2 - 1.2 mg/dL 10/26/2023 1:06 PM [facility] Protein, Total 7.0 6.4 - 8.3 g/dL 10/26/2023 1:06 PM [facility] Albumin 3.7 3.5 - 5.0 g/dL 10/26/2023 1:06 PM [facility] Glucose 105(H) 70 - 100 mg/dL 10/26/2023 1:06 PM [facility] Comment:The given reference range is for the fasting state. Non-fasting reference range for glucose is 70 - 180 mg/dL. GFR, Estimated 50(L) >60 mL/min/1. 73m2 10/26/2023 1:06 PM [facility] Hours Fasting 2.0 8 - 12 Hours 10/26/2023 1:06 PM [facility] Blood Venipuncture / Unknown 10/26/2023 11:04 AM T 10/26/2023 11:04 AM [facility] - 10/26/2023 1:06 PM CDT The National Kidney Disease Education Program suggests measuring Cystatin C in patients with eGFRcrea of 45 to 59 ml/min/1.73^2 who do not have other markers of kidney damage (i.e. elevated urine Albumin/Creatinine Ratio or a prior Cystatin C confirming the presence of chronic kidney disease). Luartie Fong Desilet DO LAB_1 [facility] [address] [place] [address] documented in this encounter Visit Diagnoses Diagnosis High risk medication use Encounter for long-term (current) use of other medications documented in this encounter Care Teams Ear Machine Operator Relationship Specialty Start Date End Date Datlon Esqueda MD [address] [place] [address] PCP - General Family Practice 06/23/23 documented as of this encounter
--- OUTSIDE RECORDS SUMMARY | 2023-12-12 20:27 | XMS_ITS | Clinical Summary ---
Author Organization [facility] Address [place], [place] [address] Care Team Providers Care Manager Cleaning Name Role Phone Theresa Vázquez PhD, Unavailable [phone] Abhinav Miranda MD Unavailable [phone] [facility], [facility] Unavailable [phone] Rambo Cordova MD Unavailable [phone] Abhinav Miranda MD Unavailable Dalton Esqueda MD [...] had adverse reactions previously Hydroxychloroquine Anxiety 08/23/2011 Zltattp-Vvx-Zhu Reductase Inhibitors Myalgia 04/01/2015 Sulfasalazine Rash 05/17/2019 [...] once daily with a meal. 2 Active medication order composerIndications :Sjogren's syndrome, [...] one twice a day 0 2 Active ezetimibe (ZETIA) 10 mg tabletIndications:H yperlipidemia, [...] cap qhs 100 Capsule 3 4 Active acetaminophen SR (TYLENOL ARTHRITIS) 650 mg Extended-Release tablet Take 650 mg by mouth every 8 hours if needed. Active carvediloL (COREG) 3.125 mg tablet Take 6.25 mg by mouth two times daily. 4 Active alendronate (FOSAMAX) 70 mg tablet Take 70 mg by mouth once weekly. 4 11/13/19 25 Active hydroxychloroquine (PLAQUENIL) 200 mg tablet Take 200 mg by mouth once daily. 4 Active omeprazole (PRILOSEC) 40 mg Delayed-Release capsule Take 40 mg by mouth. 3 Active spironolactone (ALDACTONE) 25 mg tablet Take 25 mg by mouth once daily. 4 Active losartan potassium (COZAAR ORAL) Take 100 mg by mouth once daily. Active LORazepam (ATIVAN) 0.5 mg tab Take 0.5 mg by mouth every 6 hours if needed. Active ondansetron HCl (ZOFRAN ORAL) Take by mouth. Active tacrolimus (PROTOPIC) 0.1 % ointment Apply 0.14 Tubes topically to affected area(s) two times daily. Active lisinopriL (PRINIVIL; ZESTRIL) 20 mg tabletIndications:E ssential hypertension with goal blood pressure less than 140/90 Take 2 Tablets (40 mg) by mouth once daily. 30 Tablet 2 12/07/19 24 Discontinu ed(*Patien t states no longer [...] carotid artery 03/01/2017 Controlled substance agreement with [facility] 12/21/19 17 Chronic SI joint pain 12/20/2016 [...] Encounters Date Type Department Care Team Description 12/07/2023 11:00 AM CDT Office Visit [facility] [address] [place] [phone] Mitchel Marmolejo MBBS Follow Up (carotid stenosis) 12/07/2023 7:58 AM CDT - 12/07/2023 11:59 PM CDT Hospital Encounter [facility] [address] [place] [address] Mitchel Marmolejo MBBS Iliac artery stenosis, bilateral (HC); Carotid stenosis, bilateral 12/07/2023 Travel 11/28/2023 Refill [facility] [address] [place] [phone] Eugene Araya MD Refill Request (Praluent Pen) 10/20/2023 1:20 PM CDT Telemedicine [facility] [address] [place] [address] Grayson Nelson MD Follow Up; Telehealth (No vitals taken) 10/20/2023 Travel 10/17/2023 Refill [facility] [address] [place] [address] Carlo Ayala MD Refill Request (naltrexone) from Last 3 Months Immunizations Name Administration [...] Years Used Date Smoking Tobacco: Former Cigarettes 0.3 33.8 0 04/25/1986 - 02/11/2020 Smokeless Tobacco: Never Tobacco Cessation:Counseling Given: Not Answered Alcohol Use Standard Drinks/Week Comments No 0 [...] Ectopic Multiple Livin g Live Births 1 04 25 Date Outcome GA Total Labor Labor//3rd Weight Sex Type Anes PTL Brigitte A1 A5 Name Clin Para Last Filed Vital Signs Vital Sign Reading Time Taken Comments Blood Pressure 216/93 12/07/2023 11:05 AM CDT Pulse 66 12/07/2023 11:05 AM CDT Temperature 36.3 ??C (97.4 ??F) 07/17/2022 10:51 AM C DT Respiratory Rate 12 12/07/2023 11:05 AM CDT Oxygen Saturation 96% 10/29/2022 9:37 AM CDT Inhaled Oxygen Concentration - - Weight 54 kg (119 lb) 10/29/2022 9:39 AM CDT Height 165.1 cm (5' 5) 10/21/2022 7:41 AM CDT Body Mass Index 19.8 10/21/2022 7:41 AM CDT Plan of Treatment Upcoming Encounters Date Type Department Care Team (Late st Contact Info) Description 01/12/2024 1:30 PM CDT Appointment [address] [address] Mitchel Marmolejo MBBS [address] [place] [address] Health Maintenance Due Date Last Done Comments COVID-19 vaccine series (#1) 1959 Zoster (shingles) series for age 50+ (1 of 2) 1973 Medicare Wellness for age 65+ 2019 Pneumococcal series for age 65+ (2 of 2 - PCV) 2019 04/06/2002 Mammogram for age 45-75 03/07/2020 03/07/20 19, [...] 04/28/2021, 03/06/2015 Medical Devices Implanted Type Area Paradi Tender Device Identifier Shelf Expiration Date Model / Serial / Lot Sut Ventura [id number] Bio Swivelock - [id number] Implanted:Qty: 4 on 04/12/2007 at [facility] Right: Shoulder [employer] [id number] L# / / [id number] Fiberchain 7mm10 Loops - [id number] Implanted:Qty: 4 on 04/12/2007 at [facility] Right: Shoulder [employer] AR-[id number]# / / Patch Vasc 0.8x8cm Biological Peripatch - [id number] Implanted:Qty: 1 on 08/26/2011 by Brain Nolasco MD at [facility] Right: Carotid Artery [employer] 08/25/2013 0.8P8# / / [id number] Graft Vasc 0.3x3in Hemashield Stra Fabric Knitted Dbl - [id number] Implanted:Qty: 1 on 03/01/2017 by Brain Quiroga MD at [facility] Left: Carotid Artery [employer] 06/22/2021 [id number]# / / [id number] Procedures Procedure Name Priority Date/Time Associated Diagnosis Comments US CAROTID DUPLEX BILATERAL Routine 12/07/2023 10:06 AM CDT Carotid stenosis, bilateral US ANKLE BRACHIAL INDEX BILATERAL Routine 12/07/2023 10:06 AM CDT Iliac artery stenosis, bilateral (HC) US AORTA ILIACS IVC WITH DUPLEX Routine 12/07/2023 10:06 AM CDT Iliac artery stenosis, bilateral (HC) LIPID PANEL W REFLEX MEASURED LDL Routine 01/14/2022 7:58 AM CDT Pure hypercholesterolemia Dyslipidemia Statin intolerance ANTI HCV Today 04/28/2021 10:51 AM WEIGHT LOSS SALES CONSULTANT Leukopenia, unspecified type COLONOSCOPY 10/02/2020 8:44 AM CDT XR DXA BONE DENSITY 2 SITES AXIAL Routine 02/22/2020 1:20 PM CDT Chronic midline low back pain with right-sided sciatica Fibromyalgia Mixed connective tissue disease (HC) Sjogren's syndrome with myopathy (HC) XR MAMMO BILAT SCREENING Routine 03/07/2019 3:23 PM WEIGHT LOSS SALES CONSULTANT Visit for screening mammogram from Last 3 Months or Most Recently Relevant to Health Maintenance Results * US CAROTID DUPLEX BILATERAL (12/07/2023 10:06 AM CDT) Anatomical Region Laterality Modality CAROTID, NECK Ultrasound 12/07/2023 8:22 AM CDT Narrative 12/07/2023 10:27 AM CDT VASCULAR ULTRASOUND REPORT NICOLLE COVINGTON Accession#: ?? [id number] : ?1955 Study Date: ?? 12/07/2023 8:22:07 AM Age: ?68 years ?? Tech: ? JAG Gender: F ?Referring MD: MITCHEL MARMOLEJO Site: [facility] Study performed: ?Carotid Indication for Study: follow-up CEA TECHNIQUE: The extracranial carotid arteries, vertebral arteries and subclavian arteries were examined per exam protocol with duplex ultrasound, color-flow and spectral Doppler. Flow velocities including peak systolic (PSV), end diastolic (EDV), and velocity ratios if applicable were documented at sites per exam protocol. IMPRESSION: 1. Based on the ICA velocities, ICA/CCA ratio, and 2D images there is plaque causing <50% stenosis in the right internal carotid artery and there is plaque causing <50% stenosis in the left internal carotid artery. 2. Normal antegrade flow within bilateral vertebral arteries. 3. Multiphasic flow within bilateral subclavian arteries. 4. The left proximal common carotid artery shows abnormal (post stenotic) waveform. COMPARISON: Compared to prior study 10/29/2022, there is no significant change. RIGHT FINDINGS: Antegrade flow in the right vertebral artery. Normal multiphasic right subclavian artery flow. LEFT FINDINGS: Antegrade flow in the left vertebral artery. Normal multiphasic left subclavian artery flow. MEASUREMENTS: +--------+--------+------+--------+--------+ RIGHT ?? RIGHT ?LEFT ?LEFT ?? +--------+--------+------+--------+--------+ PSV cm/s EDV cm/s Vessel PSV cm/s EDV cm/s +--------+--------+------+--------+--------+ ??113 ? 23 ?? P. CCA ?? 80 ? 20 ?? +--------+--------+------+--------+--------+ ??104 ? 26 ?? M. CCA ? +--------+--------+------+--------+--------+ ?? 66 ? 20 ?? D. CCA ?? 71 ? 20 ?? +--------+--------+------+--------+--------+ ??112 ? 23 ?? P. ICA ?? 78 ? 19 ?? +--------+--------+------+--------+--------+ ??115 ? 23 ?? M. ICA ?? 82 ? 21 ?? +--------+--------+------+--------+--------+ ??137 ? 45 ?? D. ICA ??133 ? 40 ?? +--------+--------+------+--------+--------+ ??136 ? 15 ?? ECA ?116 ? 13 ?? +--------+--------+------+--------+--------+ +-----+ +----+ RIGHT ? LEFT +-----+ +----+ 254 Subclavian Artery (cm/s) 213 +-----+ +----+ 64 ?? Vertebral Artery (cm/s) 23 +-----+ +----+ 1.7 ? ICA/CCA Ratio ? 1.2 +-----+ +----+ NEVA Araujo. Electronically signed on 12/07/2023 10:27:02 AM This study was performed and interpreted by a service accredited by the Intersocietal Accreditation Commission (IAC/Vascular), [email or web address] Report generated by [employer]. ??Final ?? Procedure Note Mitchel Marmolejo MBBS - 12/07/2023 VASCULAR ULTRASOUND REPORT NICOLLE COVINGTON : 1955 Study Date: 12/07/2023 8:22:07 AM Age: 68 years Tech: JAG Gender: F Referring MD: MITCHEL MARMOLEJO Site: [facility] Study performed: Carotid Indication for Study: follow-up CEA TECHNIQUE: The extracranial carotid arteries, vertebral arteries and subclavianarteries were examined per exam protocol with duplex ultrasound,color-flow and spectral Doppler. Flow velocities including peak systolic(PSV), end diastolic (EDV), and velocity ratios if applicable weredocumented at sites per exam protocol. IMPRESSION: 1. Based on the ICA velocities, ICA/CCA ratio, and 2D images there isplaque causing <50% stenosis in the right internal carotid artery andthere is plaque causing <50% stenosis in the left internal carotidartery. 2. Normal antegrade flow within bilateral vertebral arteries. 3. Multiphasic flow within bilateral subclavian arteries. 4. The left proximal common carotid artery shows abnormal (post stenotic)waveform. COMPARISON: Compared to prior study 10/29/2022, there is no significant change. RIGHT FINDINGS: Antegrade flow in the right vertebral artery. Normal multiphasic rightsubclavian artery flow. LEFT FINDINGS: Antegrade flow in the left vertebral artery. Normal multiphasic leftsubclavian artery flow. MEASUREMENTS: +--------+--------+------+--------+--------+ RIGHT RIGHT LEFT LEFT +--------+--------+------+--------+--------+ PSV cm/s EDV cm/s Vessel PSV cm/s EDV cm/s +--------+--------+------+--------+--------+ 113 23 P. CCA 80 20 +--------+--------+------+--------+--------+ 104 26 M. CCA +--------+--------+------+--------+--------+ 66 20 D. CCA 71 20 +--------+--------+------+--------+--------+ 112 23 P. ICA 78 19 +--------+--------+------+--------+--------+ 115 23 M. ICA 82 21 +--------+--------+------+--------+--------+ 137 45 D. ICA 133 40 +--------+--------+------+--------+--------+ 136 15 ECA 116 13 +--------+--------+------+--------+--------+ +-----+ +----+ RIGHT LEFT +-----+ +----+ 254 Subclavian Artery (cm/s) 213 +-----+ +----+ 64 Vertebral Artery (cm/s) 23 +-----+ +----+ 1.7 ICA/CCA Ratio 1.2 +-----+ +----+ NEVA Araujo. Electronically signed on 12/07/2023 10:27:02 AM This study was performed and interpreted by a service accredited by theIntersocietal Accreditation Commission (IAC/Vascular),[email or web address] Report generated by CloudSplit. Final Mitchel HOOKS US * US ANKLE BRACHIAL INDEX BILATERAL (12/07/2023 10:06 AM CDT) Anatomical Region Laterality Modality ANKLES, ANKLE L, ANKLE R Ultraso und 12/07/2023 8:16 AM CDT Narrative 12/07/2023 10:22 AM CDT VASCULAR ULTRASOUND REPORT NICOLLE COVINGTON Accession#: ?? [id number] : ?1955 Study Date: ?? 12/07/2023 8:16:00 AM Age: ?68 years ?? Tech: ? JAG Gender: F ?Referring MD: MITCHEL MARMOLEJO Site: [facility] Study performed: ?Lower extremity resting ISMAEL, (bilateral). Indication for study: Follow-up known PAD TECHNIQUE: Lower/upper extremity arteries were examined per exam protocol by duplex ultrasound, color-flow and spectral Doppler. Peak systolic velocities (PSV), Doppler waveform quality, velocity ratios and vessel size in cm, were documented at protocol specific sites. Physiologic data including segmental pressures, ankle/brachial index (ISMAEL), digit PPG recordings, laser Doppler flowmetry, transcutaneous oximetry, and digit temperatures were documented at sites per exam protocol and test requirements. IMPRESSION: 1. Resting ankle-brachial index is normal on the right at 0.97 and is moderately reduced on the left at 0.53. 2. Toe-brachial index is normal on the right at 0.60 and toe-brachial index is abnormal on the left at 0.32. 3. Right posterior tibial and dorsalis pedis arteries show multiphasic waveforms. 4. Left posterior tibial and dorsalis pedis arteries show monophasic waveforms. COMPARISON: No recent prior study available for comparison. FINDINGS: Right toe/brachial index indicates normal range. Abnormal toe brachial index on the left. Pressures +-----+ +--------+ +-----+ ? RIGHT (mmHg) ? LEFT (mmHg) ? +-----+ +--------+ +-----+ Index ?163 ? Brachial ?168 ? Index +-----+ +--------+ +-----+ 0.97 ?163 ?GRILL ATTENDANT ?89 ? 0.53 +-----+ +--------+ +-----+ 0.94 ?158 ?DPA ?79 ? 0.47 +-----+ +--------+ +-----+ 0.60 ?101 ? Digit 1 ?54 ? 0.32 +-----+ +--------+ +-----+ NEVA Araujo. Electronically signed on 12/07/2023 10:22:46 AM This study was performed and interpreted by a service accredited by the Intersocietal Accreditation Commission (IAC/Vascular), [email or web address] Report generated by CloudSplit. ??Final ?? Procedure Note Mitchel Marmolejo MBBS - 12/07/2023 VASCULAR ULTRASOUND REPORT NICOLLE COVINGTON : 1955 Study Date: 12/07/2023 8:16:00 AM Age: 68 years Tech: JAG Gender: F Referring MD: MITCHEL MARMOLEJO Site: [facility] Study performed: Lower extremity resting ISMAEL, (bilateral). Indication for study: Follow-up known PAD TECHNIQUE: Lower/upper extremity arteries were examined per exam protocol by duplexultrasound, color-flow and spectral Doppler. Peak systolic velocities(PSV), Doppler waveform quality, velocity ratios and vessel size in cm,were documented at protocol specific sites. Physiologic data includingsegmental pressures, ankle/brachial index (ISMAEL), digit PPG recordings,laser Doppler flowmetry, transcutaneous oximetry, and digit temperatureswere documented at sites per exam protocol and test requirements. IMPRESSION: 1. Resting ankle-brachial index is normal on the right at 0.97 and ismoderately reduced on the left at 0.53. 2. Toe-brachial index is normal on the right at 0.60 and toe-brachialindex is abnormal on the left at 0.32. 3. Right posterior tibial and dorsalis pedis arteries show multiphasicwaveforms. 4. Left posterior tibial and dorsalis pedis arteries show monophasicwaveforms. COMPARISON: No recent prior study available for comparison. FINDINGS: Right toe/brachial index indicates normal range. Abnormal toe brachial index on the left. Pressures +-----+ +--------+ +-----+ RIGHT (mmHg) LEFT (mmHg) +-----+ +--------+ +-----+ Index 163 Brachial 168 Index +-----+ +--------+ +-----+ 0.97 163 GRILL ATTENDANT 89 0.53 +-----+ +--------+ +-----+ 0.94 158 DPA 79 0.47 +-----+ +--------+ +-----+ 0.60 101 Digit 1 54 0.32 +-----+ +--------+ +-----+ NEVA Araujo. Electronically signed on 12/07/2023 10:22:46 AM This study was performed and interpreted by a service accredited by theIntersocietal Accreditation Commission (IAC/Vascular),[email or web address] Report generated by CloudSplit. Final Mitchel HOOKS US * US AORTA ILIACS IVC WITH DUPLEX (12/07/2023 10:06 AM CDT) Anatomical Region Laterality Modality AORTA, Abdomen Ultrasound 12/07/2023 9:07 AM CDT Narrative 12/07/2023 10:28 AM CDT VASCULAR ULTRASOUND REPORT NICOLLE COVINGTON Accession#: ?? [id number] : ?1955 Study Date: ?? 12/07/2023 9:07:34 AM Age: ?68 years ?? Tech: ? JAG Gender: F ?Referring MD: MITCHEL MARMOLEJO Site: [facility] Study performed: ?Aorta, Iliac, (bilateral) Indication for study: PAD. TECHNIQUE: The abdominal aorta and iliac arteries were examined with duplex ultrasound, color-flow and spectral Doppler. Bypass grafts and/or stents if present are evaluated per exam protocol. Vessel size, peak systolic velocity (PSV) and velocity ratios if applicable, were obtained and documented at sites per exam protocol. IMPRESSION: 1. Severe stenosis at mid Aorta (ratio 5.4). 2. Severe stenosis in right LIBIA stent with velocities upto 547 cm/s. Distal right EIA is multiphasic. 3. Severe stenosis distal to left LIBIA stent with velocities upto 672 cm/s. Distal left EIA is monophasic. COMPARISON: No prior study available for comparison. MEASUREMENTS: + +--------+-------+ +---------+ ? TRV (cm) AP (cm) PSV (cm/s) Phasicity + +--------+-------+ +---------+ Suprarenal aorta ?1.50 ?? 1.50 ?53 ? + +--------+-------+ +---------+ Mid aorta ?1.30 ?? 1.30 ? 286 ? + +--------+-------+ +---------+ Infrarenal aorta ?1.30 ?? 1.20 ?58 ? + +--------+-------+ +---------+ Right common iliac ??0.40 ?? 0.50 ? + +--------+-------+ +---------+ Left common iliac ??0.60 ?? 0.60 ? + +--------+-------+ +---------+ + + + Right Iliac PSV (cm/s) + + + EIA PRX ? 136 ? + + + EIA DST ? 136 ? + + + + + + Left Iliac PSV (cm/s) + + + EIA PRX ?58 ? + + + EIA DST ?61 ? + + + STENTS STENT LOCATION : Bilat LIBIA stent +--------+ + RIGHT ?? PSV (cm/s) +--------+ + PRE ? 104 ? Prx edge ?? 314 ? +--------+ + PRX ? 527 ? +--------+ + MID ? 547 ? +--------+ + DST ? 504 ? Dst edge ?? 461 ? +--------+ + POST ? 263 ? +--------+ + +--------+ + LEFT ? PSV (cm/s) +--------+ + PRE ? 101 ? Prx edge ?? 156 ? +--------+ + PRX ? 140 ? +--------+ + MID ? 101 ? +--------+ + DST ?85 ? Dst edge ?? 189 ? +--------+ + POST ? 672 ? +--------+ + NEVA Araujo. Electronically signed on 12/07/2023 10:28:56 AM This study was performed and interpreted by a service accredited by the Intersocietal Accreditation Commission (IAC/Vascular), [email or web address] Report generated by [employer]. ??Final ?? Procedure Note Mitchel Marmolejo MBBS - 12/07/2023 VASCULAR ULTRASOUND REPORT NICOLLE COVINGTON : 1955 Study Date: 12/07/2023 9:07:34 AM Age: 68 years Tech: KIERA Gender: F Referring MD: MITCHEL MARMOLEJO Site: [facility] Study performed: Aorta, Iliac, (bilateral) Indication for study: PAD. TECHNIQUE: The abdominal aorta and iliac arteries were examined with duplexultrasound, color-flow and spectral Doppler. Bypass grafts and/or stentsif present are evaluated per exam protocol. Vessel size, peak systolicvelocity (PSV) and velocity ratios if applicable, were obtained anddocumented at sites per exam protocol. IMPRESSION: 1. Severe stenosis at mid Aorta (ratio 5.4). 2. Severe stenosis in right LIBIA stent with velocities upto 547 cm/s.Distal right EIA is multiphasic. 3. Severe stenosis distal to left LIBIA stent with velocities upto 672cm/s. Distal left EIA is monophasic. COMPARISON: No prior study available for comparison. MEASUREMENTS: + +--------+-------+ +---------+ TRV (cm) AP (cm) PSV (cm/s) Phasicity + +--------+-------+ +---------+ Suprarenal aorta 1.50 1.50 53 + +--------+-------+ +---------+ Mid aorta 1.30 1.30 286 + +--------+-------+ +---------+ Infrarenal aorta 1.30 1.20 58 + +--------+-------+ +---------+ Right common iliac 0.40 0.50 + +--------+-------+ +---------+ Left common iliac 0.60 0.60 + +--------+-------+ +---------+ + + + Right Iliac PSV (cm/s) + + + EIA PRX 136 + + + EIA DST 136 + + + + + + Left Iliac PSV (cm/s) + + + EIA PRX 58 + + + EIA DST 61 + + + STENTS STENT LOCATION : Bilat LIBIA stent +--------+ + RIGHT PSV (cm/s) +--------+ + PRE 104 Prx edge 314 +--------+ + PRX 527 +--------+ + MID 547 +--------+ + DST 504 Dst edge 461 +--------+ + POST 263 +--------+ + +--------+ + LEFT PSV (cm/s) +--------+ + PRE 101 Prx edge 156 +--------+ + PRX 140 +--------+ + MID 101 +--------+ + DST 85 Dst edge 189 +--------+ + POST 672 +--------+ + NEVA Araujo. Electronically signed on 12/07/2023 10:28:56 AM This study was performed and interpreted by a service accredited by theIntersocietal Accreditation Commission (IAC/Vascular),[email or web address] Report generated by [employer]. Final Mitchel HOOKS * LIPID PANEL W REFLEX MEASURED LDL (01/14/2022 7:58 AM CDT) CHOLESTEROL,TOTAL 159 100 - 199 mg/dL 01/14/2022 9:36 AM CDT [facility] TRIGLYCERIDES 130 <150 mg/dL 01/14/2022 9:36 AM CDT [facility] HDL CHOLESTEROL 75 >40 mg/dL 9:36 AM CDT [facility] NON-HDL CHOLESTEROL 84 <145 mg/dl 01/14/2022 9:36 AM T [facility] CHOL/HDL RATIO 2.12 <4.50 01/14/2022 9:36 AM CDT [facility] LDL CHOLESTEROL 58 <=130 mg/dL 01/14/2022 9:36 AM CDT [facility] VLDL CHOLESTEROL 26 <=30 mg/dL 01/14/2022 9:36 AM CDT [facility] PROVIDER ORDERED STATUS FASTING 01/14/2022 9:36 AM CDT [facility] Blood BLOOD SPECIMEN / Unknown Venipuncture / Unknown 01/14/2022 7:58 AM CDT 01/14/2022 8:18 AM CDT Yu Bradley NP CHEMISTRY [facility] [address] [place] [address] * ANTI HCV (04/28/2021 10:51 AM WEIGHT LOSS SALES CONSULTANT) HEPATITIS C ANTIBODY Non-React epi Non-React epi 04/28/2021 4:25 PM WEIGHT LOSS SALES CONSULTANT [facility] Comment:Antibodies to HCV no t detected; does not exclude the possibility of exposure to HCV. Blood BLOOD SPECIMEN / Unknown Venipuncture / Unknown 04/28/2021 10:51 AM WEIGHT LOSS SALES CONSULTANT 04/28/2021 10:51 AM WEIGHT LOSS SALES CONSULTANT Giselle Sheffield MD SEND OUTS [facility] [address] [place] [address], * COLONOSCOPY (10/02/2020 8:44 AM CDT) 10/02/2020 8:44 AM CDT Narrative Transcriptions Daysi George DO - 10/06/2020 9:14 PM CDT Patient Name: Nicolle Covington Procedure Date: 10/02/2020 Gender: Female Date of : 1955 Admit Type: Ambulatory Procedure: Colonoscopy Proceduralist: Daysi George MD [facility] Indications/Pre-Op Diagnosis: High risk colon cancer [...] Bone Den sitometry Narrative 02/25/2020 10:39 AM WEIGHT LOSS SALES CONSULTANT Please see scanned document for results of this study. Mauricio Muñoz MD DEXA * XR MAMMO BILAT SCREENING (03/07/2019 3:23 PM WEIGHT LOSS SALES CONSULTANT) Anatomical Region Laterality Modality BREASTS, Breast Left, Breast Right Bilateral Mammography Impressions 03/08/2019 6:55 AM WEIGHT LOSS SALES CONSULTANT ??There is no radiographic evidence for malignancy. ??Recommend annual mammograms. A lay language report of this examination will be provided to the patient. MAMMOGRAM ASSESSMENT: ??ACR 1 Negative Narrative 03/08/2019 6:55 AM WEIGHT LOSS SALES CONSULTANT XR MAMMO BILAT SCREENING [[id number]] CLINICAL HISTORY: ??This is an asymptomatic 63 [...] Documents on File Type Date Recorded Patient Process Control Programmer Expl anation Healthcare Directive 03/24/2023 023 * [...] 5:42 AM 03/01/2017 11:49 AM Care Teams Manager Cleaning Relationship Specialty Start Date End Date Dalton Esqueda MD [address] [place] [address] PCP - General Family Practice 10/15/20 Theresa Vázquez, PhD, LP Psychologist Psychology 06/23/11 Abhinav Miranda MD Dermatology Dermatology 08/07/15 [facility] 09/14/16 Rambo Cordova MD [address] [place] [address] Rheumatology Rheumatology 04/07/17 Abhinav Miranda MD Dermatology 07/11/17
--- OUTSIDE RECORDS SUMMARY | 2023-12-12 20:27 | XMS_ITS | Encounter Summary ---
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 [place], [place] [address] Wilfredo Howell III, MD [address] [place], [place] [id number] Medication Questions Social History Tobacco Use Types [...] 10/13/2023 4:33 PM CDT Call received from [facility] pharmacy through triage requesting clarification for the Losartan Rx. Prescription was clarified and filled. documented in this encounter Plan of Treatment Upcoming Encounters Date Type Department Care Team (Late st Contact Info) Description 12/15/2023 12:40 PM CDT Appointment [facility] [id number] Cardiology [address] [place] [phone] Rosa Elena Huynh PA-C [address] [place] [address] 12/22/2023 10:45 AM CDT Appointment [facility] [address] [place], [place] [address] Desilet, Freeman W, DO [address] [place] [address] 01/06/2024 1:30 PM CDT Appointment [facility] Estr[facility] [phone] Cardiology [address] [place] [phone] Wilfredo Howell III, MD [address] [place], [place] [id number] 01/24/2024 9:00 AM CDT Appointment [facility] Tamika Estrada [phone] Electrophysiology [address] [place] [phone] documented as of this encounter Visit Diagnoses Not on filedocumented in this encounter Care Teams Glue Plant Operator Relationship Specialty Start Date End Date Dalton Esqueda MD [address] [place] [address] PCP - General Family Practice 06/23/23 documented as of this encounter
--- NOTE | 2023-12-27 10:38 | W.PM.SLEEP ---
Sleep Study Details Details Interpreting Provider: Mary Date of Sleep Study: 12/12/23 Sleep Study Details: STUDY TYPE:? Hospital attended ? BMI:? 21.1 ORDERING PROVIDER:? Mary INDICATION:? Concern about sleep apnea ? SLEEP SUMMARY:? 338.5 minutes total sleep time RESPIRATORY SUMMARY:? Mean oxygen awake 92 asleep 91 minimum 79 19.4 minutes oxygen between 80 and 88% AHI 18.4 using rule 1A, 8.5 using CMS guidelines. Supine AHI 25.6, nonsupine AHI 11.9 Supine REM AHI 22 PERIODIC LIMB MOVEMENTS OF SLEEP:? Index 0 CARDIAC:? Awake 65, asleep 62. Paced beats noted IMPRESSION:? Moderate obstructive sleep apnea with supine position and REM dependency RECOMMENDATION: Treatment options include CPAP or dental appliance.
== END 2023-12-12 20:24 | disposition home or self-care (01) ==
LOC: SLEEP 20:23
PROVIDERS: PCP Family Medicine; Visit Provider Otolaryngology
DX: G47.33 Obstructive sleep apnea (adult) (pediatric) (principal)
CPT/HCPCS: 95810; A9270

== ENCOUNTER 2024-01-12 15:13 | Emergency (ER) | payer MEDICARE, BC, SELFPAY ==
[2024-01-12 15:40] VITALS: BP 128/70; PULSE 64; RESP 18; TEMP 36.9; O2SAT 97; BMI 20.7
--- OUTSIDE RECORDS SUMMARY | 2024-01-12 16:51 | XMS_ITS | Clinical Summary ---
Author Organization [facility] Address [address] [place] [address] Care Team Providers Care Filler Room Attendant Name Role Phone Dalton Esqueda MD Primary Care Provider [phone] Source Comments You are receiving this document [...] for each transition of care or referral. [facility] Center[facility] Allergies Active Allergy Reactions Criticality Noted Date [...] 1 Tablet (10 mg) by mouth daily. 06/29/20 23 Active Naltrexone HCl, Pain, (NALTREX OR) Take [...] 90 Tablet 3 03/22/20 23 024 Active Magnesium Bisglycinate (MAG GLYCINATE OR) [...] Take by mouth daily. ProOmega Curcumin by Cooliris: Take 3 capsules by mouth daily Active triamcinolone acetonide (KENALOG) 0.1 % ointment Apply topically two times a day. To areas of rash 80 g 2 07/11/19 Active Additional Information Patient taking differently:TopicalPRN, To areas of rash, Reported on 11/08/2023 spironolactone (ALDACTONE) 25 MG tablet Take 1 Tablet (25 mg) by mouth daily. 90 Tablet 3 08/26/19 24 025 Active mycophenolate (CELLCEPT) 500 MG tablet Take [...] every week. Take 30 minutes before first aevw-xfext-zmqcze tion on mornings. Avoid lying down for 30 minutes. 12 Tablet 3 11/13/19 24 025 Active carvedilol (COREG) 12.5 MG tablet Take 1 Tablet (12.5 mg) by mouth two times a day with meals. 180 Tablet 3 11/28/19 24 025 Active PRALUENT 75 MG/ML SOAJ Inject 1 mL (75 mg) subcutaneously every 14 days. 6 Each 4 12/07/19 24 Active predniSONE (DELTASONE) 2.5 MG tablet Take 2 Tablets (5 mg) by mouth daily. 180 Tablet 1 12/22/19 24 025 Active predniSONE (DELTASONE) 2.5 MG tablet Take 3 Tablets (7.5 mg) by mouth daily. 270 Tablet 1 09/22/19 24 024 Discontinued(*M ed change OR same med OR reorder, new dose/directions ) doxazosin (CARDURA) 2 MG tablet Take 2 Tablets (4 mg) by mouth every evening. 180 Tablet 3 12/15/19 24 024 Discontinued Active Problems Problem Noted Date Diagnosed Date Cardiac pacemaker in situ 11/11/2023 Overview (11/11/2023): Dual Chamber Medtronic Dianne XT DR NEETA Pickett - MRI conditional Chronotropic incompetence 11/10/2023 Sinus [...] Encounters Date Type Department Care Team Description 01/11/2024 Telephone Rheumatology at [place] [address] [address] [facility] [place] [address] Freeman Lopez, DO Follow-up 01/06/2024 1:30 PM CDT Office Visit [facility] [address] Cardiology [address] [place] [address] Wilfredo Howell III, MD Hypertension, unspecified type (HRC) (Primary Dx); SSS (sick sinus syndrome) (HRC); Cardiac pacemaker in situ; PAD (peripheral artery disease) (HRC); Mixed hyperlipidemia (HRC) 12/29/2023 10:30 AM CDT Lab Visit [facility] [address] [place] [address] Systemic lupus erythematosus, unspecified SLE type, unspecified organ involvement status (HRC) 12/22/2023 11:20 AM CDT Lab Visit [facility] [address] [place] [address] Systemic lupus erythematosus, unspecified SLE type, unspecified organ involvement status (HRC) 12/22/2023 10:45 AM CDT Office Visit Rheumatology at [facility] [place] [address] [facility] [address] [place], [place] [id number] DesiletFreeman W, DO Systemic lupus erythematosus, unspecified SLE type, unspecified organ involvement status (HRC) (Primary Dx); High risk medication use; Osteoporosis, unspecified osteoporosis type, unspecified pathological fracture presence (HRC); Essential hypertension (HRC); Vaccine counseling; Pre-op evaluation 12/22/2023 Telephone [facility] [address] [place], [place] [address] DesiletFreeman W, Other (The following lab test(s) utpcr are unable to be performed and have been cancelled. Please reorder the test(s) and contact the patient if still clinically indicated.//Terri Galeana 12/22/2023, 4:49 PM/) 12/20/2023 [facility]phone [facility] [address] [place], [place] [id number] Rosa Elena Huynh PA-C RESULTS, TEST 12/15/2023 1:20 PM CDT Lab Visit [facility] [address] [place] [address] Pre-op exam 12/15/2023 12:40 PM CDT Office Visit [facility] [address] Cardiology [address] [place] [address] Rosa Elena Huynh PA-C Pre-op exam (Primary Dx); Hypertension, unspecified type (HRC); Hyperlipidemia, unspecified hyperlipidemia type (HRC); Hypertensive emergency; SSS (sick sinus syndrome) (HRC); Cardiac pacemaker in situ; Sinus bradycardia; Chronotropic incompetence 12/08/2023 Notes/Orders [facility] [address] [facility] [place] [address] Wilfredo Howell III, MD 12/07/2023 Notes/Orders [facility] [place] [facility] [address] [place], [place] [address]or [facility] [place] [address] Wilfredo Howell III, MD 12/06/2023 Telephone [facility] [place] [facility] [address] [place], [place] [address]or [facility] [place] [address] Wilfredo Howell III, MD UPDATE 11/22/2023 8:45 AM CDT Evaluation [facility] Electrophysiology [address] [place] [address]. [place] [address] SSS (sick sinus syndrome) (HRC) (Primary Dx); Cardiac pacemaker in situ 11/17/2023 E-Visit [facility] [address] [place] [address]. [place] [address] Mychart, Generic Provider 11/17/2023 Telephone [facility] [place] [facility] [address] [place] [address]. [place] [address] Wilfredo Howell III, MD Hypertension 11/15/2023 Nurse Triage [facility] [address] [place] [address] Unknown, Physician Post-Op Problem; BLOOD PRESSURE, HIGH 11/08/2023 12:45 PM CDT - 11/13/2023 11:30 AM CDT Hospital Encounter [facility] [address] [facility] [place] [address] Kayla Vázquez, DO Carter, Christian J, MD Howell, CARY Stern Catherine Q, DO Kovacovich, Joan M, MD Teeparti, Rewati, MD Chronic pain syndrome (Primary Dx); Hypertensive emergency; Cerebral aneurysm without rupture; Acute nonintractable headache, unspecified headache type; Brain aneurysm Discharge Disposition: Home 11/08/2023 11:30 AM CDT Office Visit [place] [facility] [place] [address] Cardiology [address] [place] [address] Juan Luis Robles MD Hypertensive emergency (Primary Dx) 11/08/2023 Orders Only HIM DEPARTMENT Provider, MD Isabelle 11/02/2023 Telephone [facility] [place] [address] Wilfredo Howell III, MD BLOOD PRESSURE, HIGH 10/26/2023 11:10 AM CDT Lab Visit [facility] [address] [place] [address] High risk medication use 10/24/2023 Notes/Orders [facility] [email or web address] [place] [address] Wilfredo Howell III, MD 10/24/2023 Telephone [facility] [place] [address] Wilfredo Howell III, MD Hypertension 10/13/2023 3:30 PM CDT Office Visit [place] [facility] [place] [address] Cardiology [address] [place] [address] Wilfredo Howell III, MD Hypertension, unspecified type (HRC) (Primary Dx); Tobacco use disorder (HRC); PAD (peripheral artery disease) (HRC); Mixed hyperlipidemia (HRC) 10/13/2023 Telephone [facility] [place] [address] Wilfredo Howell III, MD Medication Questions from Last 3 Months Immunizations Name Administration Dates Next Due Flu Vac (3+ yrs) 03/21/2013, 2,02/26/2011, 010,02/06/2009 Flu Vac Preserv Free (3+yrs) 02/26/2011 [id number] 04/15/2009 Influenza [id number] 2009 Influenza IIV4 (Quadrivalent ) 0.5mL (49117) 01/17/2017,03/03/2016,01/15/2015, 014,03/21/2013,03/13/2012,02/26/2011,,04/15/2009 PPSV23 (Pneumovax) 04/06/2002 Td 04/06/2002 Tdap 01/31/2023,08/23/2011 Social History Tobacco Use Types Packs/Day Years Used Date Smoking Tobacco: Former Cigarettes Smokeless Tobacco: Never Tobacco Cessation:Counseling Given: Not Answered Alcohol Use Standard Drinks/Week Comments Not Currently 0 (1 standard drink = 0.6 oz pur e alcohol) [facility] [email or web address] Answer Date Recorded In the past 12 months has e [email or web address], gas, oil, or water [employer] threatened to shut off services in your [...] place to sleep or slept in a retirement (including now)? No 11/08/2023 Sex and Gender Information Value Date Recorded Sex Assigned at Not on file Gender Identity Female 12/21/2023 11:58 AM CDT Sexual Orientation Not on file Last Filed Vital Signs Vital Sign Reading Time Taken Comments Blood Pressure 137/50 01/06/2024 1:14 PM CDT Pulse 77 01/06/2024 1:14 PM CDT Temperature 36.6 ??C (97.9 ??F) 11/13/2023 9:00 AM CD T Respiratory Rate 15 11/13/2023 9:00 AM CDT Oxygen Saturation 96% 11/12/2023 6:00 AM CDT Inhaled Oxygen Concentration - - Weight 60 kg (132 lb 3.2 oz) 01/06/2024 1:14 PM CDT Height 165.1 cm (5' 5) 01/06/2024 1:14 PM CDT Body Mass Index 22 01/06/2024 1:14 PM CDT Plan of Treatment Upcoming Encounters Date Type Department Care Team (Late st Contact Info) Description 01/24/2024 9:00 AM CDT Appointment Ghislaine Lundberg [place] [address] [facility] [address] [place] [address] 03/14/2024 2:00 PM SENIOR PRODUCT ANALYST Appointment [facility] [address] [place], [place] [phone] Brandon Kessler MD [address] [place] [address] 03/20/2024 11:15 AM SENIOR PRODUCT ANALYST Appointment Rheumatology at [facility] [address] [address] Teodoroilemorgan Freeman Fong, DO [address] [place], [place] [phone] Health Maintenance Due Date Last Done Comments Colon Cancer Screening Plan Due 1955 Hep C Screening (Preventive Services) 1955 Medicare Annual Wellness Visit 1955 Cholesterol 1999 Zoster/Shingles (1 of 2) 2004 Pneumococcal 65+ Yrs (2 - PCV) 2019 04/06/2002 Mammogram 03/07/2020 03/07/2019 COVID-19 Vaccine ( - season) 2023 Influenza (#1) 2023 01/17/2017, 12/2015, 01/15/2015, Additional history exists RSV (1 - 1-dose 75+ series) 2029 DTaP/Tdap/Td (3 - Tdap) 01/31/2033 02/01/20, 08/23/2011, [...] this topic Medical Devices Implanted Type Area Seismograph Helper Device Identifier Shelf Expiration Date Model / Serial / Lot Dual Chamber Medtronic Grayling Xt Dr Faustin Surescan-Mri Conditional-10/23 Implanted:11/10 by Gilbert Grey MD (Quantity not on file) Cardiac- Rhythm Left: CHEST Medtronic - Cardiovascular Description:Dual Chamber Med tronic Grayling XT DR FAUSTIN SureScan - MRI conditional Procedures Procedure Name Priority Date/Time Associated Diagnosis Comments TP/CREA RATIO, URINE Routine 12/29/2023 9:02 AM CDT Systemic lupus erythematosus, unspecified SLE type, unspecified organ involvement status (HRC) URINALYSIS ROUTINE, MICRO/CULTURE IF POS Routine 12/22/2023 12:00 PM CDT Systemic lupus erythematosus, unspecified SLE type, unspecified organ involvement status (HRC) COMPLETE BLOOD COUNT-W/DIFF Routine 12/22/2023 11:23 AM CDT Systemic lupus erythematosus, unspecified SLE type, unspecified organ involvement status (HRC) DNA DOUBLE STRANDED ANTIBODY IGG (ALBA) Routine 12/22/2023 11:23 AM CDT Systemic lupus erythematosus, unspecified SLE type, unspecified organ involvement status (HRC) C4 COMPLEMENT Routine 12/22/2023 11:23 AM CDT Systemic lupus erythematosus, unspecified SLE type, unspecified organ involvement status (HRC) C3 COMPLEMENT Routine 12/22/2023 11:23 AM CDT Systemic lupus erythematosus, unspecified SLE type, unspecified organ involvement status (HRC) CBC AND DIFFERENTIAL PANEL Routine 12/22/2023 11:23 AM CDT Systemic lupus erythematosus, unspecified SLE type, unspecified organ involvement status (HRC) BASIC METABOLIC PANEL Routine 12/15/2023 1:14 PM CDT Pre-op exam ECG 12 LEAD OUTPATIENT Routine 12/15/2023 12:40 PM CDT Pre-op exam PACEMAKER EVALUATION Routine 11/22/2023 8:55 AM CDT [...] 11:04 AM CDT High risk medication use from Last 3 Months Results * TP/Crea Ratio, Urine (12/29/2023 9:02 AM CDT) Pathologist [facility] TP/Creat Ratio, Urine Random 0.05 0.00 - 0.20 12/29/2023 2:52 PM CDT [facility] Total Protein, Urine, Random 2 0 - 14 mg/dL 12/29/2023 2:52 PM CDT [facility] Creatinine, Urine, Random 41 >20 mg/dL mg/dL 12/29/2023 2:52 PM CDT [facility] Urine Non-blood Collection / Unknown 12/29/2023 9:02 AM CDT 12/29/2023 9:02 AM CDT Narrative [facility] - 12/29/2023 2:52 PM CDT Low urine creatinine values coupled with low urine protein values can artifactually increase the urine protein/creatinine results. Correlate results of ratio with creatinine results. Luke W Desilet DO LAB_1 [facility] [address] * (ABNORMAL) Urinalysis Routine, Micro/Culture if Pos: Clean Catch (12/22/2023 12:00 PM CDT) Pathologist [facility] Urine Culture Comment Urinalysis results do not meet criteria for urine culture reflex. 12/22/2023 12:10 PM [facility] Urine Color Straw 12/22/2023 12:10 PM [facility] Urine Clarity Clear Clear 12/22/2023 12:10 PM [facility] Specific [place], Urine <=1.005(A) 1.005 - 1.030 12/22/2023 12:10 PM [facility] PH Urine 6.0 5.0 - 8.0 12/22/2023 12:10 PM [facility] Protein, Urine Qual (mg/dL) Negative Neg/Trace 12/22/2023 12:10 PM [facility] Glucose Urine Qual (mg/dL) Negative Negative 12/22/2023 12:10 PM CDT [facility] Ketones, Urine (mg/dL) Negative Negative 12/22/2023 12:10 PM T [facility] Urobilinogen, Urine (EU/dL) 0.2 <2.0 12/22/2023 12:10 PM T [facility] Bilirubin Urine Negative Negative 12/22/2023 12:10 PM CDT [facility] Blood, Urine Negative Neg/Trace 12/22/2023 12:10 PM CDT [facility] Nitrite Urine Negative Negative 12/22/2023 12:10 PM T [facility] Leukocyte Est. Negative Negative 12/22/2023 12:10 PM T [facility] Urine Source Clean Catch 12/22/2023 12:10 PM T [facility] Urine URINE SPECIMEN COLLECTION, CLEAN CATCH / Unknown Non-blood Collection / Unknown 12/22/2023 12:00 PM CDT 12/22/2023 12:00 PM CDT [facility] LAB_1 Performing Organization Address [facility]/ZIP Co de Phone Number [facility] [address] [place] [address] * DNA Double Stranded Antibody IgG (ALBA) (12/22/2023 11:23 AM CDT) Anti-DNA Antibody IgG 15 <200 IU 12/27/2023 2:12 PM CDT [facility] Anti-DNA Antibody IgG Interpretation Negative Negative 12/27/2023 2:12 PM CDT [facility] Blood Venipuncture / Unknown 12/22/2023 11:23 AM CDT 12/22/2023 11:23 AM CDT Narrative [facility] - 12/27/2023 2:12 PM CDT The following results were obtained with the Wayinva QUANTA Lite dsDNA ALBA. dsDNA values obtained with different manufacturers' assay methods may not be used interchangeably. Luke [employer] Desilet DO LAB_1 Performing Organization Address City/[facility]/ZIP Co de Phone Number [facility] [address] [place], [place] [address] * (ABNORMAL) Complete Blood Count-W/Diff (12/22/2023 11:23 AM [facility]) Only the most recent of4 resultswithin the time period is included. WBC 7.3 3.5 - 10.5 x10(9)/L 12/22/2023 11:28 AM [facility] RBC 3.88(L) 3.90 - 5.03 x10(12)/L 12/22/2023 11:28 AM [facility] Hemoglobin 11.7(L) 12.0 - 15.5 g/dL 12/22/2023 11:28 AM [facility] HCT 36.4 34.9 - 44.5 % 12/22/2023 11:28 AM [facility] MCV 93.8 80.0 - 100.0 fL 12/22/2023 11:28 AM [facility] MCH 30.2 27.6 - 33.3 pg 12/22/2023 11:28 AM [facility] MCHC 32.1 31.5 - 35.2 g/dL 12/22/2023 11:28 AM [facility] RDW 13.7 11.9 - 15.5 % 12/22/2023 11:28 AM [facility] Platelets 265 150 - 450 x10(9)/L 12/22/2023 11:28 AM [facility] Automated NRBC 0 <=0 /100 WBC 12/22/2023 11:28 AM [facility] Neutrophil Absolute 5.7 1.7 - 7.0 10(9)/L 12/22/2023 11:28 AM [facility] Lymphocyte Absolute 1.0 1.0 - 4.8 10(9)/L 12/22/2023 11:28 AM [facility] Monocyte Absolute 0.4 0.2 - 0.9 10(9)/L 12/22/2023 11:28 AM [facility] Eosinophil Absolute 0.1 0.0 - 0.5 10(9)/L 12/22/2023 11:28 AM [facility] Basophil Absolute 0.0 0.0 - 0.3 10(9)/L 12/22/2023 11:28 AM CDT [facility] Immature Granulocyte % 0.4 0.0 - 0.5 % 12/22/2023 11:28 AM CDT [facility] Blood Venipuncture / Unknown 12/22/2023 11:23 AM CDT 12/22/2023 11:23 AM CDT [employer] W Desilet DO LAB_1 Performing Organization Address [facility] Co de Phone Number [facility] [address] [place] [address] * C4 Complement (12/22/2023 11:23 AM CDT) C4 Complement 15.0 15.0 - 57.0 mg/dL 12/22/2023 4:07 PM CDT [facility] Blood Venipuncture / Unknown 12/22/2023 11:23 AM CDT 12/22/2023 11:23 AM CDT [employer] Desilet DO LAB_1 Performing Organization Address [facility] Phone Number [facility] [address] * C3 Complement (12/22/2023 11:23 AM CDT) C3 Complement 83 83 - 193 mg/dL 12/22/2023 4:07 PM CDT [facility] Blood Venipuncture / Unknown 12/22/2023 11:23 AM CDT 12/22/2023 11:23 AM CDT [employer] W Desilet DO LAB_1 Performing Organization Address [facility] de Phone Number [facility] [address] * (ABNORMAL) Basic Metabolic Panel (12/15/2023 1:14 PM CDT) Only the most recent of7 resultswithin the time period is included. Sodium 137 136 - 145 mmol/L 12/15/2023 5:32 PM [facility] Potassium 5.1 3.5 - 5.1 mmol/L 12/15/2023 5:32 PM [facility] Chloride 103 98 - 109 mmol/L 12/15/2023 5:32 PM [facility] CO2 20 20 - 29 mmol/L 12/15/2023 5:32 PM [facility] Anion Gap 14 6 - 16 mmol/L 12/15/2023 5:32 PM [facility] Calcium 11.1(H) 8.4 - 10.4 mg/dL 12/15/2023 5:32 PM [facility] Comment:Low serum albumin ma y artificially lower total calcium, without impacting ionized calcium concentrations. If patient has or is at risk for hypoalbuminemia, consider ionized serum calcium to more accurately assess calcium status. BUN 57(H) 7 - 26 mg/dL 12/15/2023 5:32 PM [facility] Creatinine 1.09(H) 0.55 - 1.02 mg/dL 12/15/2023 5:32 PM [facility] Glucose 119(H) 70 - 100 mg/dL 12/15/2023 5:32 PM [facility] Comment:The given reference range is for the fasting state. Non-fasting reference range for glucose is 70 - 180 mg/dL. GFR, Estimated 55(L) >60 mL/min/1. 73m2 12/15/2023 5:32 PM [facility] Hours Fasting 0.0 8 - 12 Hours 12/15/2023 5:32 PM [facility] Comment:Patient has indicate d a non-fasting status. Blood Venipuncture / Unknown 12/15/2023 1:14 PM CDT 12/15/2023 1:40 PM [facility] - 12/15/2023 5:32 PM [facility] The National Kidney Disease Education Program suggests measuring Cystatin C in patients with eGFRcrea of 45 to 59 ml/min/1.73^2 who do not have other markers of kidney damage (i.e. elevated urine Albumin/Creatinine Ratio or a prior Cystatin C confirming the presence of chronic kidney disease). Rosa Elena Huynh PA-C LAB_1 [facility] [address] [place] [address], [facility] * ECG 12 Lead Outpatient (12/15/2023 12:40 PM CDT) Ventricular Rate 65 BPM MUSE [facility] Atrial Rate 65 BPM MUSE [facility] P-R Interval 204 ms MUSE GHP QRS Duration 90 ms MUSE GHP QT 382 ms MUSE GHP QTc 397 ms MUSE GHP P [place] -3 degrees MUSE GHP R [place] 35 degrees MUSE GHP T [place] 66 degrees MUSE GHP 12/15/2023 12:4 0 PM CDT Narrative [facility] - 12/15/2023 4:07 PM CDT Atrial-paced rhythm Poor R wave progression Abnormal ECG When compared with ECG of 12-NOV-2023 06:51, No significant change was found Confirmed by Christopher Sosa ([id number]) on 12/15/2023 4:07:32 PM Procedure Note Lemuel Sosa MD - 12/15/2023 Atrial-paced rhythm Poor R wave progression Abnormal ECG When compared with ECG of 12-NOV-2023 06:51, No significant change was found Confirmed by Christopher Sosa ([id number]) on 12/15/2023 4:07:32 PM Rosa Elena Huynh PA-C PN ECG ORDERABLES Performing Organization Address [facility] de Phone Number MUSE [facility] [address] [place] [address] * Pacemaker Evaluation (11/22/2023 8:55 AM CDT) 11/22/2023 8:55 AM CDT Narrative [facility] - 11/22/2023 8:55 AM CDT Normal dual chamber pacemaker function. Patient presents for first visit after implant. Incision C/D/I, without any signs of infection. Incision edges well approximated. The device was interrogated and reprogrammed to assess data, thresholds, and function. No atrial or ventricular high rate episodes noted. DRAFTING ENGINEER <0.1%. Already enrolled in [facility] in 3 months. Please contact [phone] if any questions. dwk James Tejada MD PN ELECTROPHYSIOLOGY ORDERABLE [facility]ACE[facility] * ECG 12 Lead Inpatient, On post-op day #1 (11/12/2023 6:51 AM CDT) Only the most recent of4 resultswithin the time period is included. Ventricular Rate 62 BPM MUSE GHP Atrial Rate 62 BPM MUSE [facility]HP P-R Interval 204 ms MUSE GHP QRS Duration 86 ms MUSE GHP QT 414 ms MUSE GHP QTc 420 ms MUSE GHP P [place] 22 degrees MUSE GHP R [place] 59 degrees MUSE GHP T [place] 78 degrees MUSE GHP 11/12/2023 6:51 AM CDT Narrative [facility]USE [facility] - 11/12/2023 1:46 PM CDT Atrial-paced rhythm Septal infarct (cited on or before 08-NOV-2023) Abnormal ECG When compared with ECG of 11-NOV-2023 17:58, Questionable change in initial forces of Anterior leads Confirmed by Gurpreet Ortega ([id number]) on 11/12/2023 1:46:55 PM Procedure Note Gurpreet Ortega, - 11/12/2023 Atrial-paced rhythm Septal infarct (cited on or before 08-NOV-2023) Abnormal ECG When compared with ECG of 11-NOV-2023 17:58, Questionable change in initial forces of Anterior leads Confirmed by Gurpreet Ortega ([id number]) on 11/12/2023 1:46:55 PM Gilbert Grey MD PN ECG ORDERABLES [facility] [address] [place] [address] * XR Chest 2 Views (11/11/2023 7:41 [...] CARDIAC ELECTROPHYSIOLOGY PROCEDURE REPORT Cardiac Electrophysiology Service [facility] [place] Cardiac Nylon Mender: ??Gilbert Grey MD Date: 11/11/2023 PROCEDURES PERFORMED: [...] AND PARAMETERS: New Permanent Pacemaker Pulse Generator: [employer] Grayling, model [id number] New Right Atrial Lead: ??Medtronic model [id number] Sensed P waves 4.1 mV, pacing threshold 1.2 V @ 0.5 ms, impedance 898 ohms. New Right Ventricular Lead: ??Medtronic model 113043 Sensed R waves 9.7 mV, pacing threshold [...] Grey MD Cardiac Electrophysiology Service Sharona White SURGEON PARTNER, FINANCIAL SALES CONSULTANT PN ELECTROPHYSIO LOGY ORDERABLE Performing Organization Address City/State/[facility] Co de Phone Number [facility] [address] [place] [address] * INPATIENT TELEMETRY MONITORING (11/10/2023 9:18 AM CDT) Only the most recent of3 resultswithin the time period is included. TELE P-R INTERVAL 0.17 MUSE GHP TELE QRS DURATION 0.15 MUSE GHP TELE R-R INTERVAL 1.39 MUSE GHP TELE QT 0.50 MUSE GHP TELE INTERPRETATION Sinus Fortino Scott RN MUSE P 11/10/2023 9:18 AM CDT Narrative QUINTIN SALDANA - 11/10/2023 10:53 AM CDT Sinus Fortino ??Ирина Scott, RN Interface Provider EKG QUINTIN [facility] [address] [place] [address] * GXT Stress Test (11/10/2023 7:52 AM [...] Wilfredo Howell III, MD ET ECHO ORDERABL ES Performing Organization Address City/[facility]/ZIP Co de Phone Number [facility] [address] [place] [address] * TSH with reflex to fT4 (not for treatment monitoring) (11/10/2023 4:50 AM CDT) TSH, Reflex 0.90 0.30 - 4.50 uIU/mL 11/10/2023 6:20 PM CDT [facility] Blood Venipuncture / Unknown 11/10/2023 4:50 AM CDT 11/10/2023 5:26 AM CDT Sharona White APRN, FINANCIAL SALES CONSULTANT LAB_1 [facility] [address] * Echocardiogram (11/09/2023 6:53 AM CDT) 11/09/2023 6:53 AM CDT Narrative PN ECHO - 11/09/2023 8:35 AM CDT Procedure type: ? ECHOCARDIOGRAM Procedure ? 11/09/2023 6:53 AM date/time: Facility[facility] Accession #: ?[id number] INDICATIONS Dyspnea/SOB. SUMMARY: Left ventricular ejection fraction [...] Staff Interpreting Provider: ?? NILTON GARCIA MD Toolroom Checker: ? EE Ordering Provider: ? JOLEEN Cisneros [...] Procedure Staff Interpreting Provider: NILTON GARCIA MD Toolroom Checker: EE Ordering Provider: JOLEEN Cisneros Attending Physician: KAYLA VÁZQUEZ DO Electronically signed by NILTON GARCIA MD (Interpreting Provider) on at 8:34 AM Crow Howell PA-C ET ECHO ORDERABLES PN ECHO * Complete Blood Count-No Diff (11/09/2023 4:59 AM CDT) WBC 6.1 3.5 - 10.5 x10(9)/L 11/09/2023 5:21 AM CDT [facility] RBC 3.98 3.90 - 5.03 x10(12)/L 11/09/2023 5:21 AM CDT [facility] Hemoglobin 12.0 12.0 - 15.5 g/dL 11/09/2023 5:21 AM CDT [facility] HCT 36.7 34.9 - 44.5 % 11/09/2023 5:21 AM CDT [facility] MCV 92.2 80.0 - 100.0 fL 11/09/2023 5:21 AM CDT [facility] MCH 30.2 27.6 - 33.3 pg 11/09/2023 5:21 AM CDT [facility] MCHC 32.7 31.5 - 35.2 g/dL 11/09/2023 5:21 AM CDT [facility] RDW 13.4 11.9 - 15.5 % 11/09/2023 5:21 AM CDT [facility] Platelets 236 150 - 450 x10(9)/L 11/09/2023 5:21 AM CDT [facility] Automated NRBC 0 <=0 /100 WBC 11/09/2023 5:21 AM CDT [facility] Blood Venipuncture / Unknown 11/09/2023 4:59 AM CDT 11/09/2023 5:17 AM CDT Crow Howell PA-C LAB_1 Performing Organization Address [facility] de Phone Number [facility] [address] * XR Portable Chest 1 View [...] MRSA, Molecular Detection (11/08/2023 8:35 PM CDT) [facility] MRSA Not Detected Not Detected 11/08/2023 9:53 PM CDT [facility] Swab (Source Required) ENTIRE ANTERIOR NARIS / Unknown Non-blood Collection / Unknown 11/08/2023 8:35 PM CDT 11/08/2023 8:39 PM CDT Narrative [facility] - 11/08/2023 9:53 PM CDT Methodology: Qualitative real-time PCR assay Christian Carter MD LAB_1 Performing Organization Address [facility] Co de Phone Number [facility] [address] * Glucose, Whole Blood POCT (11/08/2023 8:12 PM CDT) [facility] Glucose, Whole Blood 86 70 - 180 mg/dL 11/08/2023 8:13 PM CDT [facility] Performing Location MT 2N/S 11/08/2023 8:13 PM CDT [facility] Blood 11/08/2023 8:12 PM CDT 11/08/2023 8:13 PM CDT Christian Carter MD LAB_1 Performing Organization Address [facility]/ZIP Co de Phone Number [facility] [address] * (ABNORMAL) Troponin-I (11/08/2023 7:56 PM CDT) Only the most recent of2 resultswithin the time period is included. Troponin I 0.06(H) 0.00 - 0.03 ng/mL 11/08/2023 8:33 PM CDT [facility] Blood Venipuncture / Unknown 11/08/2023 7:56 PM CDT 11/08/2023 8:00 PM CDT Crow Howell PA-C LAB_1 Performing Organization Address [facility] de Phone Number [facility] [address] * CT Angio Neck Head W IV Cont (11/08/2023 2:23 PM CDT) Anatomical Region Laterality Modality Head, Vascular Computed Tomogra phy 11/08/2023 2:08 PM CDT Impressions 11/08/2023 3:23 PM CDT INDICATION: sams, htn, known aneurysms TECHNIQUE: CT angiogram of the [place] ??and CT angiogram of the [...] known aneurysms TECHNIQUE: CT angiogram of the [place] and CT angiogram of theneck [...] and the C3-4 levelon the right Kayla KNIGHT CT * CT Head WO IV Cont [...] Blue top tube (11/08/2023 1:04 PM CDT) [facility] Extra Blue Top Drawn Specimen will be held for 24 hours 11/08/2023 3:00 PM CDT [facility] Blood Venipuncture / Unknown 11/08/2023 1:04 PM CDT 11/08/2023 1:16 PM CDT Jenaro Robles MD LAB_1 Performing Organization Address [facility] Co de Phone Number [facility] [address] * (ABNORMAL) B-Type Natriuretic Peptide (11/08/2023 1:04 PM CDT) [facility] B Type Natr. Peptide 198(H) <=99 pg/mL 11/08/2023 1:57 PM CDT [facility] Blood Venipuncture / Unknown 11/08/2023 1:04 PM CDT 11/08/2023 1:16 PM CDT Kayla Vázquez DO LAB_1 Performing Organization Address [facility]/ZIP Co de Phone Number [facility] [address] * PROCEDURE IP (11/08/2023) Anatomical Region Laterality Modality Other Interface Provider MD MIRANDA/OTHER/AR * (ABNORMAL) Comp Metabolic Panel (10/26/2023 11:04 AM T) Sodium 139 136 - 145 mmol/L 10/26/2023 1:06 PM [facility] Potassium 4.9 3.5 - 5.1 mmol/L 10/26/2023 1:06 PM [facility] Chloride 106 98 - 109 mmol/L 10/26/2023 1:06 PM [facility] CO2 23 20 - 29 mmol/L 10/26/2023 1:06 PM [facility] Anion Gap 10 6 - 16 mmol/L 10/26/2023 1:06 PM [facility] Calcium 10.5(H) 8.4 - 10.4 mg/dL 10/26/2023 1:06 PM [facility] Comment:Low serum albumin ma y artificially lower total calcium, without impacting ionized calcium concentrations. If patient has or is at risk for hypoalbuminemia, consider ionized serum calcium to more accurately assess calcium status. BUN 36(H) 7 - 26 mg/dL 10/26/2023 1:06 PM [facility] Creatinine 1.18(H) 0.55 - 1.02 mg/dL 10/26/2023 1:06 PM [facility] Alkaline Phosphatase 38(L) 40 - 150 U/L 10/26/2023 1:06 PM [facility] AST (SGOT) 22 10 - 40 U/L 10/26/2023 1:06 PM [facility] ALT (SGPT) 16 <=55 U/L 10/26/2023 1:06 PM [facility] Bilirubin, Total 0.4 0.2 - 1.2 mg/dL 10/26/2023 1:06 PM [facility] Protein, Total 7.0 6.4 - 8.3 g/dL 10/26/2023 1:06 PM [facility] Albumin 3.7 3.5 - 5.0 g/dL 10/26/2023 1:06 PM [facility] Glucose 105(H) 70 - 100 mg/dL 10/26/2023 1:06 PM [facility] Comment:The given reference range is for the fasting state. Non-fasting reference range for glucose is 70 - 180 mg/dL. GFR, Estimated 50(L) >60 mL/min/1. 73m2 10/26/2023 1:06 PM [facility] Hours Fasting 2.0 8 - 12 Hours 10/26/2023 1:06 PM [facility] Blood Venipuncture / Unknown 10/26/2023 11:04 AM CDT 10/26/2023 11:04 AM CDT Narrative [facility] - 10/26/2023 1:06 PM CDT The National Kidney Disease Education Program suggests measuring Cystatin C in patients with eGFRcrea of 45 to 59 ml/min/1.73^2 who do not have other markers of kidney damage (i.e. elevated urine Albumin/Creatinine Ratio or a prior Cystatin C confirming the presence of chronic kidney disease). Freeman Lopez DO LAB_1 [facility] [address] [place] [address], [facility] from Last 3 Months Advance Directives * [...] for unstable rhythm? Unaddressed/Y es Care Teams Filler Room Attendant Relationship Specialty Start Date End Date Dalton Esqueda MD [address] [place] [address] PCP - General Family Practice 06/23/23
--- OUTSIDE RECORDS SUMMARY | 2024-01-12 16:51 | XMS_ITS | Encounter Summary ---
Author Organization [employer] Address [address] [place] [address] Care Team Providers Care Explosive Ordnance Disposal Manager Name Role Phone Dalton Esqueda MD Primary Care Provider [phone] Reason for Visit * Reason Comments Follow-up Encounter Details Date Type Department Care Team (Late st Contact Info) Description 01/06/2024 1:30 PM CDT [facility] [address] Cardiology [address] [place] [address] Wilfredo Howell III, MD [address] [place], [place] [id number] Hypertension, unspecified type (HRC) (Primary Dx); SSS (sick sinus syndrome) (HRC); Cardiac pacemaker in situ; PAD (peripheral artery disease) (HRC); Mixed hyperlipidemia (HRC) Social History Tobacco Use Types Packs/Day Years Used Date Smoking Tobacco: Former Cigarettes Smokeless Tobacco: Never Alcohol Use Standard Drinks/Week Comments Not Currently 0 (1 standard drink = 0.6 oz pur e alcohol) [facility] Utilities Answer Date Recorded In the past 12 months has th e electric, gas, oil, or water [employer] threatened to shut off services in your [...] AM CDT Sexual Orientation Not on file documented as of this encounter Last Filed Vital Signs Vital Sign Reading Time Taken Comments Blood Pressure 137/50 01/06/2024 1:14 PM CDT Pulse 77 01/06/2024 1:14 PM CDT Temperature - - Respiratory Rate - - Oxygen Saturation - - Inhaled Oxygen Concentration - - Weight 60 kg (132 lb 3.2 oz) 01/06/2024 1:14 PM CDT Height 165.1 cm (5' 5) 01/06/2024 1:14 PM CDT Body Mass Index 22 01/06/2024 1:14 PM CDT documented in this encounter Progress Notes * Wilfredo Howell III, MD - 01/06/2024 1:30 PM CDT Cardiology Progress Note: S: I had the opportunity to visit with Richa in cardiology clinic today. She is a 68-year-old female with significant peripheral arterial disease, previous bilateral carotid artery endarterectomy, bilateral iliac stenting, evidence of left-sided critical limb ischemia, recent discontinuation of tobacco use, hypertension, hyperlipidemia, and recent dual-chamber permanent pacemaker implant. Richa was admitted to [facility] in October of this year. She was admitted with evidence of hypertensive urgency/emergency. Medical therapy was challenging, as she also had evidence of sinoatrial node dysfunction (limited any antihypertensives at might have zayda blocking effect). A dual-chamber permanent pacemaker was implanted on November 11, 2023. She reports that this has improved her exercise tolerance and capacity. It has also allow addition of carvedilol to her medical therapy. She still reports continued highly variable blood pressure measurements, but has now trending towards blood pressures and much more acceptable ranges. She is also continuing to deal with symptoms of claudication (left worse than right, and recent testing has shown evidence of critical limb ischemia on the left-hand side. She is in the process of scheduling a peripheral angiogram at [facility]. She was unable to tolerate the addition of doxazosin to her antihypertensive medical therapy because it appeared to cause life-limiting severe headaches. Richa has no complaints of exertional chest pressure or pain. She has no orthopnea, PND, and no significant lower extremity edema. Outpatient Medications Prior to Visit Medication Sig Note Dispense Refill acetaminophen (TYLENOL 8 HOUR ARTHRITIS PAIN) 650 MG controlled release tablet Take 1 Tablet (650 mg) by mouth every 8 hours as needed. alendronate (FOSAMAX) 70 MG tablet Take 1 Tablet (70 mg) by mouth once every week. Take 30 minutes before first [id number] on mornings. Avoid lying down for 30 minutes. 12 Tablet 3 aspirin EC 81 MG enteric coated tablet Take 1 Tablet (81 mg) by mouth daily. carvedilol (COREG) 12.5 MG tablet Take 1 Tablet (12.5 mg) by mouth two times a day with meals. 180 Tablet 3 cholecalciferol (VITAMIND3) 50 MCG (2000 UT) tablet Take 1 Tablet (2,000 Units) by mouth daily. doxazosin (CARDURA) 2 MG tablet Take 2 Tablets (4 mg) by mouth every evening. 180 Tablet 3 drug not in computer Take by mouth daily. ProOmega Curcumin by [employer]: Take 3 capsules by mouth daily ezetimibe (ZETIA) 10 MG tablet Take 1 Tablet (10 mg) by mouth daily. hydroxychloroquine (PLAQUENIL) 200 MG tablet Take 1 Tablet (200 mg) by mouth daily. 90 Tablet 3 LORazepam (ATIVAN) 0.5 MG tablet Take 1 Tablet (0.5 mg) by mouth as needed. losartan (COZAAR) 100 MG tablet Take 1 Tablet (100 mg) by mouth daily. 90 Tablet 3 Magnesium Bisglycinate (MAG GLYCINATE OR) Take 420 mg by mouth two times a day. magnesium oxide (MAG-OX) 400 MG tablet Take 1 Tablet (400 mg) by mouth daily as needed. medical cannabis patient certified Take 1 Capsule by mouth two times daily as needed. 11/08/2023: Each capsule is 10 MG of medical cannabis Meloxicam (MOBIC) 15 MG tablet Take 1 Tablet (15 mg) by mouth daily. Multiple Vitamin (MULTIVITAMINS OR) Take 1 Capsule by mouth daily. mycophenolate (CELLCEPT) 500 MG tablet Take 2 Tablets (1,000 mg) by mouth two times a day. 360 Tablet 1 Naltrexone HCl, Pain, (NALTREX OR) Take 5.5 mg by mouth daily. omeprazole (PRILOSEC) 40 MG capsule Take 1 Capsule (40 mg) by mouth daily. ondansetron (ZOFRAN-ODT) 4 MG disintegrating tablet Take 1 Tablet (4 mg) by mouth every 6 hours as needed. PRALUENT 75 MG/ML SOAJ Inject 1 mL (75 mg) subcutaneously every 14 days. 6 Each 4 predniSONE (DELTASONE) 2.5 MG tablet Take 2 Tablets (5 mg) by mouth daily. 180 Tablet 1 probiotic (AKA SUPER PROBIOTIC) Take 1 Capsule by mouth daily. spironolactone (ALDACTONE) 25 MG tablet Take 1 Tablet (25 mg) by mouth daily. 90 Tablet 3 tacrolimus (PROTOPIC) 0.1 % ointment Apply topically two times a day. to affected areas as directed. (Patient taking differently: Apply topically as needed. To affected areas as directed) 60 g 2 triamcinolone acetonide (KENALOG) 0.1 % ointment Apply topically two times a day. To areas of rash (Patient taking differently: Apply topically as needed. To areas of rash) 80 g 2 No facility-administered medications prior to visit. O: BP 137/50 (BP Location: Left Arm, BP Cuff Size: Regular) Pulse 77 Ht 5' 5 (165.1 cm) Wt 132 lb 3.2 oz (57240 g) BMI 22.00 kg/m?? Estimated body mass index is 22 kg/m?? as calculated from the following: Height as of this encounter: 5' 5 (165.1 cm). Weight as of this encounter: 132 lb 3.2 oz (34662 g). GEN- patient awake alert and conversant NEURO- moves all four extremities appropriately. PSYCH- outgoing and positive mood HEAD- normocephalic and atraumatic EYES- no icterus and extraocular muscles are grossly intact NECK- supple, JVP 3cm and no carotid bruits OROPHARYNX- no erythema and no tonsillar exudates LUNGS- clear to auscultation bilaterally CV- RRR, normal s1 and s2, no murmurs, PMI is normal EXT- trivial ankle edema SKIN- no new rash, no itching Impression and Plan: 1) Hypertension- significantly improved blood pressure is noted on current medical therapy (following pacemaker implant). Medications include Coreg 12.5 mg b.i.d., losartan 100 mg daily, and spironolactone 25 mg daily. She was unable to tolerate addition of doxazosin because of development of severe life-limiting headaches. Variability in blood pressure measurements remains noted with some systolic blood pressures as high as 170 mmHg. I have not recommended changes to medical therapy now. I would like her to complete her peripheral arterial angiogram and other evaluations before considering additional changes to medical therapy. 2) Sinoatrial Node dysfunction- dual-chamber pacemaker implanted with all device checks suggesting appropriate function. This is a loud initiation of zayda blocking agents. Of note, a small strand ofsuture material is seen along the central margin of a otherwise well healing pacemaker incision. Will notify the device clinic. 3) PAD- scheduled for a peripheral angiogram. Recent testing significantly abnormal ABIs. This led to additional imaging suggesting severe stenosis in the aorta as well as serial severe stenoses of the right common iliac artery stent. She has met with Dr. Joseph to review these results and plan for likely additional procedures. Aortoiliac angiogram scheduled. She is currently not experiencing symptoms of heart failure angina. She should be considered adequately optimized from a cardiovascular standpoint for the procedures as planned. 4) Tobacco Abuse- now abstaining from tobacco. 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 Appointment with Dr. Brandon Kessler scheduled. 6) Chronic Pain- stable. Total length of time of the appointment was greater than 30 minutes. This included time spent reviewing past medical records, cardiac tests, and time spent [id number] with patient. documented in this encounter Plan of Treatment Upcoming Encounters Date Type Department Care Team (Late st Contact Info) Description 01/24/2024 9:00 AM CDT Appointment [facility] [address] Electrophysiology [address] [place] [phone] 03/14/2024 2:00 PM PRODUCT INTRODUCTION MANAGER Appointment [facility] Neurosurgery/Ortho Spine [address] [place] [address]. [place] [address] Brandon Kessler MD [address] [place] [id number] 03/20/2024 11:15 AM PRODUCT INTRODUCTION MANAGER Appointment Rheumatology at [facility] [place] [address] [address] [address] [place] [address] Desilet, Freeman W, DO [address] [place], [place] [phone] documented as of this encounter Visit Diagnoses Diagnosis Hypertension, unspecified type (HRC)- Primary SSS (sick sinus syndrome) (HRC) Sinoatrial node dysfunction Cardiac pacemaker in situ PAD (peripheral artery disease) (HRC) Unspecified disorders of arteries and arterioles Mixed hyperlipidemia (HRC) Mixed hyperlipidemia documented in this encounter Care Teams Explosive Ordnance Disposal Manager Relationship Specialty Start Date End Date Dalton Esqueda MD [address] [place] [address] PCP - General Family Practice 06/23/23 documented as of this encounter
--- OUTSIDE RECORDS SUMMARY | 2024-01-12 16:51 | XMS_ITS | Encounter Summary ---
Author Organization [employer] Address [address] [place] [address] Care Team Providers Care Senior Trainer Name Role Phone Dalton Esqueda MD Primary Care Provider Encounter Details Date Type Department Care Team (Late st Contact Info) Description 12/29/2023 10:30 AM CDT Lab Visit [place] [id number] [place], [place] [phone] Systemic lupus erythematosus, unspecified SLE type, unspecified organ involvement status (HRC) Social History Tobacco Use Types Packs/Day Years Used Date Smoking Tobacco: Former Cigarettes Smokeless Tobacco: Never Alcohol Use Standard Drinks/Week Comments Not Currently 0 (1 standard drink = 0.6 oz pur e alcohol) [facility] Utilities Answer Date Recorded In the past 12 months has [facility] [employer], gas, oil, or water [employer] threatened to shut off services in your [...] Info) Description 01/24/2024 9:00 AM CDT Appointment [facility] [address] [facility] [address] [place] [phone] 03/14/2024 2:00 PM RECEIVING INSPECTOR Appointment [facility] Neurosurgery/Ortho Spine [address] [facility] [place] [address] Brandon Kessler MD [address] [place] [address] 03/20/2024 11:15 AM RECEIVING INSPECTOR Appointment Rheumatology at [facility] [place] [address] [address] [address] [place] [address] Desilet, Luke W, DO [address] [place] [address] documented as of this encounter Procedures Procedure Name Priority Date/Time Associated Diagnosis Comments TP/CREA RATIO, URINE Routine 12/29/2023 9:02 AM CDT Systemic lupus erythematosus, unspecified SLE type, unspecified organ involvement status (HRC) documented in this encounter Results * TP/Crea Ratio, Urine (12/29/2023 9:02 AM CDT) TP/Creat Ratio, Urine Random 0.05 0.00 - 0.20 12/29/2023 2:52 PM CDT [facility] Total Protein, Urine, Random 2 0 - 14 mg/dL 12/29/2023 2:52 PM CDT [facility] Creatinine, Urine, Random 41 >20 mg/dL mg/dL 12/29/2023 2:52 PM CDT [facility] Urine Non-blood Collection / Unknown 12/29/2023 9:02 AM CDT 12/29/2023 9:02 AM CDT Narrative [facility] - 12/29/2023 2:52 PM CDT Low urine creatinine values coupled with low urine protein values can artifactually increase the urine protein/creatinine results. Correlate results of ratio with creatinine results. Freeman Fong Desilet DO LAB_1 Performing Organization Address City/State/[facility] Co de Phone Number [facility] [address] documented in this encounter Visit Diagnoses Diagnosis Systemic lupus erythematosus, unspecified SLE type, unspecified organ involvement status (HRC) documented in this encounter Care Teams Senior Trainer Relationship Specialty Start Date End Date Dalton Esqueda MD [address] [place] [address] PCP - General Family Practice 06/23/23 documented as of this encounter
--- OUTSIDE RECORDS SUMMARY | 2024-01-12 16:51 | XMS_ITS | Encounter Summary ---
Author Organization [employer] Address [address] [place] [address] Care Team Providers Care Structural Steel Engineer Name Role Phone Dalton Esqueda MD Primary Care Provider [phone] Reason for Visit * Reason Comments Follow-up Encounter Details Date Type Department Care Team (Late st Contact Info) Description 01/11/2024 Telephone Rheumatology at [place] [address] [place] [address]. [place] [address] DesileFreeman mora, DO [address] [place] [phone] Follow-up Social History Tobacco Use Types Packs/Day Years Used Date Smoking Tobacco: Former Cigarettes Smokeless Tobacco: Never Alcohol Use Standard Drinks/Week Comments Not Currently 0 (1 standard drink = 0.6 oz pur e alcohol) [facility] Utilities Answer Date Recorded In the past 12 months has e electric, gas, oil, or water company threatened [...] place to sleep or slept in a correction (including now)? No 11/08/2023 Sex and Gender Information Value Date Recorded Sex Assigned at Not on file Gender Identity Female 12/21/2023 11:58 AM CDT Sexual Orientation Not on file documented as of this encounter Nursing Notes * Trina Mckeon RN - 01/11/2024 3:56 PM CDT Office visit note from 12/22/23 was faxed today to [facility] ([place]) at [phone]. * Amanda French RN - 01/11/2024 11:45 AM CDT Zoila, nurse from [facility], called requesting we fax over the last office visit note (12/22/23) to them. Patient is scheduled to have an angiogram and they need to know provider's medication instructions for the procedure. documented in this encounter Plan of Treatment Upcoming Encounters Date Type Department Care Team (Late st Contact Info) Description 01/24/2024 9:00 AM CDT Appointment [facility] [address] [facility] [address] [place] [address] 03/14/2024 2:00 PM UX DESIGN LEAD Appointment [facility] Neurosurgery/Ortho Spine [address] [place] [address]. [place] [address] Brandon Kessler MD [address] [place] [address] 03/20/2024 11:15 AM UX DESIGN LEAD Appointment Rheumatology at [facility] [place] [address] [address] [address] [place] [address] Desilet, Luartie W, DO [address] [place] [address] documented as of this encounter Visit Diagnoses Not on filedocumented in this encounter Care Teams Structural Steel Engineer Relationship Specialty Start Date End Date Dalton Esqueda MD [address] [place] [address] PCP - General Family Practice 06/23/23 documented as of this encounter
--- OUTSIDE RECORDS SUMMARY | 2024-01-12 16:51 | XMS_ITS | Encounter Summary ---
Author Organization [employer] Address [address] [place] [address] Care Team Providers Care Machine Compositor Name Role Phone Dalton Esqueda MD Primary Care Provider Encounter Details Date Type Department Care Team (Late st Contact Info) Description 12/22/2023 11:20 AM CDT Lab Visit [facility] [address] [place], [place] [id number] Systemic lupus erythematosus, unspecified SLE type, unspecified organ involvement status (HRC) Social History Tobacco Use Types Packs/Day Years Used Date Smoking Tobacco: Former Cigarettes Smokeless Tobacco: Never Alcohol Use Standard Drinks/Week Comments Not Currently 0 (1 standard drink = 0.6 oz pur e alcohol) [facility] Utilities Answer Date Recorded In the past 12 months has [facility] [employer], gas, oil, or water [employer] threatened to shut off services in your [...] Info) Description 01/24/2024 9:00 AM CDT [facility]ment [facility] [address] [facility] [address] [place] [phone] 03/14/2024 2:00 PM TRAINING MGR Appointment [facility] Neurosurgery/Ortho Spine [address] [place] [address] Brandon Kessler MD [address] [place] [address] 03/20/2024 11:15 AM TRAINING MGR Appointment Rheumatology at [facility] [place] [address] [address] [address] [place] [address] Desilet, Freeman W, DO [address] [place] [address] documented as of this encounter Procedures Procedure Name Priority Date/Time Associated Diagnosis Comments URINALYSIS ROUTINE, MICRO/CULTURE IF POS Routine 12/22/2023 [...] 0.00 - 0.20 12/29/2023 2:52 PM CDT [facility] Total Protein, Urine, Random 2 0 - 14 mg/dL 12/29/2023 2:52 PM CDT [facility] Creatinine, Urine, Random 41 >20 mg/dL mg/dL 12/29/2023 2:52 PM CDT [facility] Urine Non-blood Collection / Unknown 12/29/2023 9:02 AM CDT 12/29/2023 9:02 AM CDT Narrative [facility] - 12/29/2023 2:52 PM CDT Low urine creatinine values coupled with low urine protein values can artifactually increase the urine protein/creatinine results. Correlate results of ratio with creatinine results. Luke W Desilet DO LAB_1 [facility] [address] * (ABNORMAL) Urinalysis Routine, Micro/Culture if Pos: Clean Catch (12/22/2023 12:00 PM CDT) Urine Culture Comment Urinalysis results do not meet criteria for urine culture reflex. 12/22/2023 12:10 PM [facility] Urine Color Straw 12/22/2023 12:10 PM [facility] Urine Clarity Clear Clear 12/22/2023 12:10 PM [facility] Specific [place], Urine <=1.005(A) 1.005 - 1.030 12/22/2023 12:10 PM [facility] PH Urine 6.0 5.0 - 8.0 12/22/2023 12:10 PM [facility] Protein, Urine Qual (mg/dL) Negative Neg/Trace 12/22/2023 12:10 PM [facility] Glucose Urine Qual (mg/dL) Negative Negative 12/22/2023 12:10 PM [facility] Ketones, Urine (mg/dL) Negative Negative 12/22/2023 12:10 PM [facility] Urobilinogen, Urine (EU/dL) 0.2 <2.0 12/22/2023 12:10 PM [facility] Bilirubin Urine Negative Negative 12/22/2023 12:10 PM [facility] Blood, Urine Negative Neg/Trace 12/22/2023 12:10 PM [facility] Nitrite Urine Negative Negative 12/22/2023 12:10 PM [facility] Leukocyte Est. Negative Negative 12/22/2023 12:10 PM [facility] Urine Source Clean Catch 12/22/2023 12:10 PM [facility] Urine URINE SPECIMEN COLLECTION, CLEAN CATCH / Unknown Non-blood Collection / Unknown 12/22/2023 12:00 PM CDT 12/22/2023 12:00 PM CDT Luke W Desilet DO LAB_1 [facility] [address] [place] [address], [facility] * (ABNORMAL) Complete Blood Count-W/Diff (12/22/2023 11:23 AM CDT) WBC 7.3 3.5 - 10.5 x10(9)/L 12/22/2023 11:28 AM [facility] RBC 3.88(L) 3.90 - 5.03 x10(12)/L 12/22/2023 11:28 AM [facility] Hemoglobin 11.7(L) 12.0 - 15.5 g/dL 12/22/2023 11:28 AM [facility] HCT 36.4 34.9 - 44.5 % 12/22/2023 11:28 AM [facility] MCV 93.8 80.0 - 100.0 fL 12/22/2023 11:28 AM [facility] MCH 30.2 27.6 - 33.3 pg 12/22/2023 11:28 AM [facility] MCHC 32.1 31.5 - 35.2 g/dL 12/22/2023 11:28 AM [facility] RDW 13.7 11.9 - 15.5 % 12/22/2023 11:28 AM [facility] Platelets 265 150 - 450 x10(9)/L 12/22/2023 11:28 AM [facility] Automated NRBC 0 <=0 /100 WBC 12/22/2023 11:28 AM [facility] Neutrophil Absolute 5.7 1.7 - 7.0 10(9)/L 12/22/2023 11:28 AM [facility] Lymphocyte Absolute 1.0 1.0 - 4.8 10(9)/L 12/22/2023 11:28 AM [facility] Monocyte Absolute 0.4 0.2 - 0.9 10(9)/L 12/22/2023 11:28 AM CDT [facility] Eosinophil Absolute 0.1 0.0 - 0.5 10(9)/L 12/22/2023 11:28 AM CDT [facility] Basophil Absolute 0.0 0.0 - 0.3 10(9)/L 12/22/2023 11:28 AM CDT [facility] Immature Granulocyte % 0.4 0.0 - 0.5 % 12/22/2023 11:28 AM T [facility] Blood Venipuncture / Unknown 12/22/2023 11:23 AM CDT 12/22/2023 11:23 AM CDT [facility] 3Nodilet LAB_1 Performing Organization Address City/[facility]/ZIP Co de Phone Number [facility] [address] [place] [address] * DNA Double Stranded Antibody IgG (ALBA) (12/22/2023 11:23 AM CDT) Pathologist [facility] Anti-DNA Antibody IgG 15 <200 IU 12/27/2023 2:12 PM CDT [facility] Anti-DNA Antibody IgG Interpretation Negative Negative 12/27/2023 2:12 PM CDT [facility] Blood Venipuncture / Unknown 12/22/2023 11:23 AM CDT 12/22/2023 11:23 AM CDT Narrative [facility] - 12/27/2023 2:12 PM CDT The following results were obtained with the [employer] QUANTA Lite dsDNA ALAB. dsDNA values obtained with different manufacturers' assay methods may not be used interchangeably. Powersetilet DO LAB_1 [facility] [address] [place], [place] [address] * C4 Complement (12/22/2023 11:23 AM CDT) C4 Complement 15.0 15.0 - 57.0 mg/dL 12/22/2023 4:07 PM CDT [facility] Blood Venipuncture / Unknown 12/22/2023 11:23 AM CDT 12/22/2023 11:23 AM CDT Freeman Fong Desilet DO LAB_1 Performing Organization Address City/[facility]/ZIP Co de Phone Number [facility] [address] * C3 Complement (12/22/2023 11:23 AM CDT) C3 Complement 83 83 - 193 mg/dL 12/22/2023 4:07 PM CDT [facility] Blood Venipuncture / Unknown 12/22/2023 11:23 AM CDT 12/22/2023 11:23 AM CDT Freeman Fong Desilet DO LAB_1 Performing Organization Address [facility] Co de Phone Number [facility] [address] documented in this encounter Visit Diagnoses Diagnosis Systemic lupus erythematosus, unspecified SLE type, unspecified organ involvement status (HRC) documented in this encounter Care Teams Machine Compositor Relationship Specialty Start Date End Date Dalton Esqueda MD [address] [place] [address] PCP - General Family Practice 06/23/23 documented as of this encounter
--- OUTSIDE RECORDS SUMMARY | 2024-01-12 16:51 | XMS_ITS | Encounter Summary ---
Author Organization [employer] Address [address] [place] [address] Care Team Providers Care Bleach Chlorinator Name Role Phone Dalton Esqueda MD Primary Care Provider [phone] Reason for Visit * Reason Comments Other The following lab te st(s) utpcr are unable to be performed and have been cancelled. Please reorder the test(s) and contact the patient if still clinically indicated.Terri Galeana 12/22/2023, 4:49 PM Encounter Details Date Type Department Care Team (Late st Contact Info) Description 12/22/2023 Telephone [place] [address] [place] [address] Desilet, Freeman W, DO [address] [place] [address] Other (The following lab test(s) utpcr are unable to be performed and have been cancelled. Please reorder the test(s) and contact the patient if still clinically indicated.//Terri Galeana 12/22/2023, 4:49 PM/) Social History Tobacco Use Types Packs/Day Years Used Date Smoking Tobacco: Former Cigarettes Smokeless Tobacco: Never Alcohol Use Standard Drinks/Week Comments Not Currently 0 (1 standard drink = 0.6 oz pur e alcohol) [facility] Utilities Answer Date Recorded In the past 12 months has [employer], or [employer] threatened to shut off services in your [...] as of this encounter Nursing Notes * Terri Galeana I - 12/22/2023 4:48 PM CDT Lab test UTPCR are unable to performed and have been cancelled due to specimen quantity not sufficient. Reorder test in Epic, called the patient, she is coming 01/06/2024. documented in this encounter Plan of Treatment Upcoming Encounters Date Type Department Care Team (Late st Contact Info) Description 01/24/2024 9:00 AM CDT Appointment [facility] [address] Electrophysiology [address] [place] [address] 03/14/2024 2:00 PM BEARING INSPECTOR Appointment [facility] Neurosurgery/Ortho Spine [address] [place] [address] Brandon Kessler MD [address] [place] [id number] 03/20/2024 11:15 AM BEARING INSPECTOR Appointment Rheumatology at [facility] [place] [address] [address] [address] [place] [address] Desilet, Luke W, DO [address] [place] [address] documented as of this encounter Visit Diagnoses Not on filedocumented in this encounter Care Teams Bleach Chlorinator Relationship Specialty Start Date End Date Dalton Esqueda MD [address] [place] [address] PCP - General Family Practice 06/23/23 documented as of this encounter
--- OUTSIDE RECORDS SUMMARY | 2024-01-12 16:52 | XMS_ITS | Encounter Summary ---
Author Organization [employer] Address [address] [place] [address] Care Team Providers Care Hose Sprayer Name Role Phone Dalton Esqueda MD Primary Care Provider [phone] Reason for Visit * Reason Comments RESULTS, TEST Encounter Details Date Type Department Care Team (Late st Contact Info) Description 12/20/2023 Telephone [facility] [address] [place] [address] Rosa Elena Huynh PAYani [address] [place] [address] RESULTS, TEST Social History Tobacco Use Types Packs/Day Years Used Date Smoking Tobacco: Former Cigarettes Smokeless Tobacco: Never Alcohol Use Standard Drinks/Week Comments Not Currently 0 (1 standard drink = 0.6 oz pur e alcohol) [facility] Utilities Answer Date Recorded In the past 12 months has e [employer], gas, oil, or water [employer] threatened to shut off services in your [...] to sleep or slept in a senior care (including now)? No 11/08/2023 Sex and Gender Information Value Date Recorded Sex Assigned at Not on file Gender Identity Female 12/21/2023 11:58 AM CDT Sexual Orientation Not on file documented as of this encounter Nursing Notes * Traci Ochoa RN - 12/28/2023 5:52 PM CDT Spoke with patient. Patient states she is logging her BP's but would like to wait on reporting themuntil she see's Dr. Howell on 01/06/24. * Traci Ochoa RN - 12/21/2023 2:03 PM CDT Spoke with patient. Reviewed information below. Patient verbalized understanding. Patient states she would like to wait to meet with Dr. Howell on 01/06/24 before having any repeat labs done. Patient states her BP has not improved much since starting Cardura. Patient will log her BP's for the next we ek. I will contact patient in one week for updated BP's. * Traci Ochoa RN - 12/21/2023 10:55 AM CDT Images from the original note were not included. Rosa Elena Huynh PA-C [employer] (10:54 AM) RB Yes, kdiney function and electrolytes look fine with start of cardura. Her calcium is slightly elevated, but has been in the past, and could be secondary to dehydration (BUN was elevated too). I would have her repeat this in 1-2 weeks, if elevated further I would plan to have her follow up with PCPfor further workup of hypercalcemia. Thanks! BB * Traci Ochoa RN - 12/20/2023 9:22 AM CDT Images from the original note were not included. documented in this encounter Plan of Treatment Upcoming Encounters Date Type Department Care Team (Late st Contact Info) Description 01/24/2024 9:00 AM CDT [facility] [address] [facility] [address] [place] [address] 03/14/2024 2:00 PM PAPER BOX CUTTER Appointment [facility] Neurosurgery/Ortho Spine [address] [place] [address] Brandon Kessler MD [address] [place] [address] 03/20/2024 11:15 AM PAPER BOX CUTTER Appointment Rheumatology at [facility] [place] [address] [facility] [address] [place] [address] Freeman Lopez, DO [address] [place] [address] documented as of this encounter Visit Diagnoses Not on filedocumented in this encounter Care Teams Hose Sprayer Relationship Specialty Start Date End Date Dalton Esqueda MD [address] [place] [address] PCP - General Family Practice 06/23/23 documented as of this encounter
--- OUTSIDE RECORDS SUMMARY | 2024-01-12 16:52 | XMS_ITS | Encounter Summary ---
Author Organization [employer] Address [address] [place] [address] Care Team Providers Care Tin Recovery Worker Name Role Phone Dalton Esqueda MD Primary Care Provider [phone] Encounter Details Date Type Department Care Team (Late st Contact Info) Description 12/08/2023 Notes/Orders [facility] [address] [place] [address]. [place], [place] [phone] Wilfredo Howell III, MD [address] [place], [place] [phone] Social History Tobacco Use Types Packs/Day Years Used Date Smoking Tobacco: Former Cigarettes Smokeless Tobacco: Never Alcohol Use Standard Drinks/Week Comments Not Currently 0 (1 standard drink = 0.6 oz pur e alcohol) [facility] Utilities Answer Date Recorded In the past 12 months has [employer], gas, oil, or water [employer] threatened to shut off services in your [...] Prior Authorization Portal Prior authorization approved Payer: [facility] Note from payer: Request Reference Number: [id number]. PRALUENT INJ 75MG/ML is approved through 04/24/2024. Your patient may now fill this prescription and it will be covered. Approval Details Authorization number: [id number] Authorized from December 07, 2023 to April 24, 2024 Electronic appeal: Supported Appeal deadline: December 14, 2023 (In 6 days) View History Pharmacy called and notified of PA approval. documented in this encounter Plan of Treatment Upcoming Encounters Date Type Department Care Team (Late st Contact Info) Description 01/24/2024 9:00 AM CDT Appointment [facility] [address] Electrophysiology [address] [place] [address] 03/14/2024 2:00 PM RECORD TESTER Appointment [facility] Neurosurgery/Ortho Spine [address] [place] [address]. [place] [address] Brandon Kessler MD [address] [place] [address] 03/20/2024 11:15 AM RECORD TESTER Appointment Rheumatology at [facility] [place] [address] [facility] [address] [place] [address] Desilet, Freeman W, DO [address] [place] [address] documented as of this encounter Visit Diagnoses Not on filedocumented in this encounter Care Teams Tin Recovery Worker Relationship Specialty Start Date End Date Dalton Esqueda MD [address] [place] [address] PCP - General Family Practice 06/23/23 documented as of this encounter
--- OUTSIDE RECORDS SUMMARY | 2024-01-12 16:52 | XMS_ITS | Encounter Summary ---
Author Organization [employer] Address [address] [place] [address] Care Team Providers Care Artificial Limb Maker Name Role Phone Dalton Esqueda MD Primary Care Provider [phone] Reason for Referral * Medication Prior Authorization - Authorized Specialty Diagnoses / Procedures Referred By Jonathan mora [place] [address] [place] [address] Referral ID Status Reason Start Date Expiration Date V isits Requested Visits Authorized [id number] Authorized 12/07/2023 04/24/2024 1 1 Encounter Details Date Type Department Care Team (Late st Contact Info) Description 12/07/2023 Notes/Orders [facility] [address] [place] [address]. [place], [place] [address] Wilfredo Howell III, MD [address] [place] [address] Social History Tobacco Use Types Packs/Day Years Used Date Smoking Tobacco: Former Cigarettes Smokeless Tobacco: Never Alcohol Use Standard Drinks/Week Comments Not Currently 0 (1 standard drink = 0.6 oz pur e alcohol) [facility] Utilities Answer Date Recorded In the past 12 months has th e electric, gas, oil, or water [employer] threatened to shut off services in your [...] place to sleep or slept in a alf (including now)? No 11/08/2023 Sex and Gender [...] Info) Description 01/24/2024 9:00 AM CDT Appointment [facility] [address] Electrophysiology [address] [place] [address] 03/14/2024 2:00 PM ASSOCIATE ENTERTAINMENT EDITOR Appointment [facility] Neurosurgery/Ortho Spine [address] [place] [address]. [place] [address] Brandon Kessler MD [address] [place] [address] 03/20/2024 11:15 AM ASSOCIATE ENTERTAINMENT EDITOR Appointment Rheumatology at [facility] [place] [address] [address] [address] [place] [address] DesiletFreeman W, DO [address] [place] [address] documented as of this encounter Visit Diagnoses Not on filedocumented in this encounter Care Teams Artificial Limb Maker Relationship Specialty Start Date End Date Dalton Esqueda MD [address] [place] [address] PCP - General Family Practice 06/23/23 documented as of this encounter
--- OUTSIDE RECORDS SUMMARY | 2024-01-12 16:52 | XMS_ITS | Encounter Summary ---
Author Organization [email or web address] Address [address] [place] [address] Care Team Providers Care Gum Remover Name Role Phone Dalton Esqueda MD Primary Care Provider [phone] Encounter Details Date Type Department Care Team (Late st Contact Info) Description 12/15/2023 1:20 PM CDT Lab Visit [facility] [address] [place] [address] Pre-op exam Social History Tobacco Use Types Packs/Day Years Used Date Smoking Tobacco: Former Cigarettes Smokeless Tobacco: Never Alcohol Use Standard Drinks/Week Comments Not Currently 0 (1 standard drink = 0.6 oz pur e alcohol) [facility] Utilities Answer Date Recorded In the past 12 months has [facility], gas, oil, or water [employer] threatened to shut off services in your [...] Info) Description 01/24/2024 9:00 AM CDT Appointment [facility] [address] Electrophysiology [address] [place] [phone] 03/14/2024 2:00 PM MATERIAL ASSISTANT Appointment [facility] Neurosurgery/Ortho Spine [address] [place] [address]. [place] [address] Brandon Kessler MD [address] [place] [id number] 03/20/2024 11:15 AM MATERIAL ASSISTANT Appointment Rheumatology at [facility] [place] [address] [address] [address] [place] [address] Desilet, Freeman W, DO [address] [place] [address] documented as of this encounter Procedures Procedure Name Priority Date/Time Associated Diagnosis Comments BASIC METABOLIC PANEL Routine 12/15/2023 1:14 PM CDT Pre-op exam documented in this encounter Results * (ABNORMAL) Basic Metabolic Panel (12/15/2023 1:14 PM CDT) Sodium 137 136 - 145 mmol/L 12/15/2023 5:32 PM [facility] Potassium 5.1 3.5 - 5.1 mmol/L 12/15/2023 5:32 PM [facility] Chloride 103 98 - 109 mmol/L 12/15/2023 5:32 PM [facility] CO2 20 20 - 29 mmol/L 12/15/2023 5:32 PM [facility] Anion Gap 14 6 - 16 mmol/L 12/15/2023 5:32 PM [facility] Calcium 11.1(H) 8.4 - 10.4 mg/dL 12/15/2023 5:32 PM [facility] Comment:Low serum albumin ma y artificially lower total calcium, without impacting ionized calcium concentrations. If patient has or is at risk for hypoalbuminemia, consider ionized serum calcium to more accurately assess calcium status. BUN 57(H) 7 - 26 mg/dL 12/15/2023 5:32 PM [facility] Creatinine 1.09(H) 0.55 - 1.02 mg/dL 12/15/2023 5:32 PM [facility] Glucose 119(H) 70 - 100 mg/dL 12/15/2023 5:32 PM [facility] Comment:The given reference range is for the fasting state. Non-fasting reference range for glucose is 70 - 180 mg/dL. GFR, Estimated 55(L) >60 mL/min/1. 73m2 12/15/2023 5:32 PM [facility] Hours Fasting 0.0 8 - 12 Hours 12/15/2023 5:32 PM [facility] Comment:Patient has indicate d a non-fasting status. Blood Venipuncture / Unknown 12/15/2023 1:14 PM CDT 12/15/2023 1:40 PM CDT Narrative [facility] - 12/15/2023 5:32 PM CDT The National Kidney Disease Education Program suggests measuring Cystatin C in patients with eGFRcrea of 45 to 59 ml/min/1.73^2 who do not have other markers of kidney damage (i.e. elevated urine Albumin/Creatinine Ratio or a prior Cystatin C confirming the presence of chronic kidney disease). Rosa Elena Huynh PA-C LAB_1 [facility] [address] [place] [address], [facility] documented in this encounter Visit Diagnoses Diagnosis Pre-op exam Preoperative examination, unspecified documented in this encounter Care Teams Gum Remover Relationship Specialty Start Date End Date Dalton Esqueda MD [address] [place] [address] PCP - General Family Practice 06/23/23 documented as of this encounter
--- OUTSIDE RECORDS SUMMARY | 2024-01-12 16:52 | XMS_ITS | Encounter Summary ---
Author Organization [facility] Address [address] [place] [address] Care Team Providers Care Solder Sprayer Name Role Phone Dalton Esqueda MD Primary Care Provider [phone] Reason for Visit * Reason Comments Follow-up Encounter Details Date Type Department Care Team (Late st Contact Info) Description 12/22/2023 10:45 AM CDT Office Visit Rheumatology at [facility] [address] [address] Desilet, Freeman Fong, DO [address] [place], [place] [id number] Systemic lupus erythematosus, unspecified SLE type, unspecified organ involvement status (HRC) (Primary Dx); High risk medication use; Osteoporosis, unspecified osteoporosis type, unspecified pathological fracture presence (HRC); Essential hypertension (HRC); Vaccine counseling; Pre-op evaluation Social History Tobacco Use Types Packs/Day Years Used Date Smoking Tobacco: Former Cigarettes Smokeless Tobacco: Never Alcohol Use Standard Drinks/Week Comments Not Currently 0 (1 standard drink = 0.6 oz pur e alcohol) [facility] Utilities Answer Date Recorded In [...] Sign Reading Time Taken Comments Blood Pressure 185/92 12/22/2023 10:41 AM CDT Pulse 79 12/22/2023 10:41 AM CDT Temperature - - Respiratory Rate - - Oxygen Saturation - - Inhaled Oxygen Concentration - - Weight 61.2 kg (135 lb) 12/22/2023 10:40 AM CDT Height - - Body Mass Index 22.47 12/15/2023 12:35 PM CDT documented in this encounter Patient Instructions * Patient Instructions* Freeman Lopez DO - 12/22/2023 10:45 AM CDT It was good to see you today. We are following up regarding lupus. We reviewed your recent hospitalstay for high blood pressure. I am glad to see that your skin has improved. Recent lupus labs have been relatively stable. Lupus appears to be under relatively good control at this time. Keep working with the capsule machine operator on adjusting your blood pressure medications. I will send my note to your capsule machine operator as well. To help with reducing blood pressure I recommend stopping meloxicam and reducing the prednisone dose. We are also going to adjust the prednisone by going down to 5 mg daily. This is 2 of the 2.5 mg tablets daily. Continue CellCept 2 tablets twice a day Continue hydroxychloroquine 1 tablet daily Continue Fosamax (alendronate) 1 tablet weekly For your upcoming vascular procedure I recommend taking your normal prednisone on the morning of the procedure. For the OR team, I would like them to know that you should get stress dose steroids with 50 mg of hydrocortisone at the start of procedure and 25 mg of hydrocortisone every 8 hours for the 1st 24 hours after procedure. After that, you may resume the normal dose of prednisone 5 mg daily. Follow up with me in 3 months documented in this encounter Progress Notes * Freeman Lopez DO - 12/22/2023 10:45 AM CDT Images from the original note were not included. RHEUMATOLOGY PROGRESS NOTE Patient: Nicolle Covington Preferred Name: Richa Reason for visit: Systemic lupus erythematosus (SLE) and osteoporosis Other History: Tinea corporis, shingles, hypothyroidism, refractory hypertension, generalized anxiety disorder, hyperlipidemia, tobacco use, peripheral arterial disease, carotid artery stenosis, fibromyalgia, chronic pain syndrome (sees a pain clinic - on naltrexone),sick sinus syndrome s/p pacemaker and reported Sjogren's syndrome Rheumatic Disease History: Systemic lupus erythematosus (SLE) - characterized by inflammatory arthritis, severe diffuse rash, subacute cutaneous lupus, Raynaud's, high titer positive JUJU, positive SSA, positive SSB, hypocomplementemia, and leukopenia/lymphopenia - see detailed initial consult note from 03/22/2023. Previously followed with several outside rheumatologists (Dr. Louis at [facility] and Dr. Cordova at [facility]) - several prior medication intolerances as noted below - at presentation to [facility] February 2023, appeared to have [...] skin biopsy June 2023 with interface dermatitis. CellCept dose increased in August 2023. 2. Osteoporosis -most recent DEXA scan ([facility]) July 2022 with osteoporosis, most severe T-score of -2.8 at the left femoral neck -long-term steroid use for lupus -previously on Evenity briefly but discontinued due to musculoskeletal pain. No prior reported bisphosphonate use prior to [facility]. -started oral alendronate 70 mg weekly February 2023 Rheumatologic Serologies: Positive: JUJU (1:2560 in speckled pattern), SSA, SSB, Ro 52, Ro 60, Negative: RF, CCP, dsDNA, Lyme, hepatitis-B core antibody, hepatitis-C antibody, hepatitis-B surface antigen, HIV antigen/antibody, SPEP Rheumatologic medications: Current: Mycophenolate mofetil (CellCept) 1000 mg twice a day Prednisone 7.5 mg daily (prison) Hydroxychloroquine 200 mg daily (February 2023-present) Oral alendronate 70 mg weekly (February 2023-present) Topical triamcinolone 0.1% ointment twice a day as needed Past: Azathioprine-GI upset Hydroxychloroquine-inefficacy and feeling like she was crawling out of her skin Leflunomide-GI upset 6MP-unknown reaction Sulfasalazine-rash Belimumab-rash Remicade-allergic/anaphylactic reaction Saphnelo-shingles Evenity-Bone/MSK pain History of Present Illness: Richa presents to the Rheumatology Clinic today for three-month follow up of SLE as detailed above. Interval history reviewed. In interval, saw Dermatology in September and Scl i.e. lesions reportedly improving. Was prescribed topical tacrolimus. Has been following closely with Cardiology for refractoryhypertension and was hospitalized from 11/08/2023-11/13/2023 for hypertensive emergency requiring IV antihypertensives (nicardipine drip). Also had pacemaker placed for sick sinus syndrome. Was discharged on carvedilol, losartan, and spironolactone and doxazosin was added at cardiology follow up inA. Also saw vascular surgery in November at [facility] and is planning for aorta and iliac angiogramwith possible left iliac stent angioplasty on 01/12/2024. Today, patient reports that her skin lesions have cleared up almost entirely. Has not had any annular lesions on the arms where she typically gets them. No joint swelling. No leg swelling. No oral ornasal ulcers. Has had some gradual long-term hair loss. Tolerating medications well otherwise. She continues to watch her blood pressure closely at home and has been communicating with Cardiology regarding this. Recently saw cardiology last week and doxazosin was added to her medication regimen. Blood pressure elevated in office today but blood pressures in the last day at home were well-controlled. She is planning for upcoming vascular procedure in December for peripheral arterial disease. Has had some pain in her legs. Pain & RAPID3: In flowsheet if completed by patient. OBJECTIVE Physical Examination: VS: BP (!) 185/92 (BP Location: Left Arm, BP Cuff Size: Regular) Pulse 79 Wt 135 lb (61.2 kg) BMI 22.47 kg/m?? General: alert, oriented, no acute distress Skin: Previous annular lesions on upper extremities resolved. Mild bruising at upper extremities. No malar rash or discoid lupus lesions. [...] joints. Laboratory Data: Reviewed recent relevant results: 12/15/2023: Basic metabolic panel with creatinine 1.09, EGFR 55 (improved from hospitalization), BUN 57, calcium 11.1, glucose 119 11/10/2023: CBC with differential within acceptable limits 10/26/2023: CBC with differential within acceptable limits Complete metabolic panel with creatinine 1.18, EGFR 50, glucose 105, alkaline phosphatase low at 38, calcium 10.5, BUN 36 09/22/2023: Urine protein/creatinine ratio 0.17 Urinalysis with low specific gravity, negative for blood or protein C4 low at 13 mg/dL (reference range 15-57, prior level 20.0) C3 within normal limits at 85 mg/dL (reference range 83-193) CBC with differential within normal limits , lymphopenia resolved Complete metabolic panel with BUN 37, creatinine 0.94, EGFR greater than 60, alkaline phosphatase low at 34 units/liter, glucose 119 Radiographic Information: Reviewed recent relevant results: US CAROTID DUPLEX BILATERAL Order: [id number] Narrative VASCULAR ULTRASOUND REPORT NICOLLE COVINGTON : 1955 Study Date: 12/07/2023 8:22:07 AM Age: 68 years Tech: JAG Gender: F Referring MD: MITCHEL MARMOLEJO Site: [facility] Study performed: Carotid Indication for Study: [...] left subclavian artery flow. MEASUREMENTS: +--------+--------+------+--------+--------+ RIGHT RIGHT LEFT [...] by a service accredited by the Intersocietal AccreditationCommission (IAC/Vascular), www.intersocietal.org/vascular US ANKLE BRACHIAL INDEX BILATERAL Order: [id number] Narrative VASCULAR ULTRASOUND REPORT NICOLLE COVINGTON : 1955 Study Date: 12/07/2023 8:16:00 AM Age: 68 years Tech: JAG Gender: F Referring MD: MITCHEL MARMOLEJO Site: [facility] Study performed: Lower extremity resting ISMAEL, (bilateral). Indication for study: Follow-up known PAD TECHNIQUE: Lower/upper extremity arteries were examined per exam protocol by duplex ultrasound, color-flow andspectral Doppler. Peak systolic velocities (PSV), Doppler waveform [...] and toe-brachial index is abnormal on the leftat 0.32. 3. Right posterior tibial and dorsalis [...] 168 Index +-----+ +--------+ +-----+ 0.97 163 TELE RN 89 0.53 +-----+ +--------+ +-----+ 0.94 158 DPA 79 0.47 +-----+ +--------+ +-----+ 0.60 101 Digit 1 54 0.32 +-----+ +--------+ +-----+ NEVA Araujo. Electronically signed on 12/07/2023 10:22:46 AM This study was performed and interpreted by a service accredited by the Intersocietal AccreditationCommission (IAC/Vascular), www.intersocietal.org/vascular Report generated by [employer] US Abd Aorta Order: [id number] Narrative VASCULAR ULTRASOUND REPORT NICOLLE COVINGTON : 1955 Study Date: 12/07/2023 9:07:34 AM Age: 68 years Tech: JAG Gender: F Referring MD: MITCHEL MARMOLEJO Site: [facility] Vascular [facility] Study performed: Aorta, Iliac, (bilateral) Indication for study: PAD. TECHNIQUE: The abdominal aorta and iliac arteries were examined with duplex ultrasound, color-flow and spectral Doppler. Bypass grafts and/or stents if present are evaluated per exam protocol. Vessel size, peaksystolic velocity (PSV) and velocity ratios if applicable, [...] by a service accredited by the Intersocietal AccreditationCommission (IAC/Vascular), www.intersocietal.org/vascular Report generated by [employer] XR Chest 2 Views Order: [id number] Status: Final result Visible to patient: Yes (seen) Next appt: Today at 10:45 AM in Rheumatology (Freeman Lopez DO) Details Reading Physician Reading Date Result Priority Delbert Puente MD [phone] 11/11/2023 Narrative & Impression IMPRESSION COMPARISON: 10/10/2023 FINDINGS: New 2-lead pacer in satisfactory position. No pneumothorax. Lungs are clear. The remainder of the examination is stable. Exam Ended: 11/11/23 19:41 Last Resulted: 11/11/23 19:54 XR Portable Chest 1 View Order: [id number] Status: Final result Visible to patient: Yes (seen) Next appt: Today at 10:45 AM in Rheumatology (Luke W Desilet, DO) Details Reading Physician Reading Date Result Priority Carlo Mejia MD [phone] 11/08/2023 Narrative & Impression IMPRESSION COMPARISON: None. FINDINGS: Normal cardiomediastinal silhouette and pulmonary vasculature. Lungs appear clear. No pneumothorax or pleural effusion. Surgical clips in the right neck. Exam Ended: 11/08/23 20:56 Last Resulted: 11/08/23 21:25 CT Angio Neck Head W IV Cont Order: [id number] Status: Final result Visible to patient: Yes (seen) Next appt: Today at 10:45 AM in Rheumatology (Luke W Desilet, DO) Details Reading Physician Reading Date Result Priority Olivier Cramer MD [phone] 11/08/2023 STAT Narrative & Impression IMPRESSION INDICATION: sams, htn, known aneurysms TECHNIQUE: CT angiogram of the [place] of [place] and CT angiogram of the [...] coronal MPR images. 3 x 3 mm daughteraneurysm projecting from the inferior aspect of the main aneurysm. Aneurysm measurements car inclusive of the daughter aneurysm. Please see Carreon images. Posterior cerebral arteries: Patent [...] of the leftposterior inferior cerebellar artery. CTA NECK: Right neck: Right carotid system patent and nonstenotic. Severe short segment stenosis of the right vertebral artery origin secondary to calcified atherosclerotic plaque. Moderate to severe short segment stenosis of the distal cervical right vertebral artery at the C3-4level. Left neck: 25% short segment stenosis of the proximal left internal carotid artery. Remainder of left carotid system otherwise patent and nonstenotic. Possible segmental occlusions of the thoracic, proximal and mid cervical left vertebral artery withsevere narrowing of the patent segments. Reconstitution of [...] and the C3-4 level on the right Exam Ended: 11/08/23 14:23 Last Resulted: 11/08/23 15:23 CT Head WO IV Cont Order: [id number] Status: Final result Visible to patient: Yes (seen) Next appt: Today at 10:45 AM in Rheumatology (Freeman Lopez, ) Details Reading Physician Reading Date Result Priority Olivier Cramer MD [phone] 11/08/2023 STAT Narrative & Impression IMPRESSION COMPARISON: None. TECHNIQUE: Images of the [...] examination. No evidence for acute intracranial hemorrhage. Exam Ended: 11/08/23 14:23 Last Resulted: 11/08/23 14:51 Procedure type: ECHOCARDIOGRAM Procedure 11/09/2023 6:53 AM [...] year(s) Gender: Female Procedure Staff Interpreting Provider: FAUSTO GARCIA MD Plaster Model And Mold Maker: EE Ordering Provider: JOLEEN Cisneros Attending Physician: KAYLA TORRES DO Electronically signed by FAUSTO GARCIA MD (Interpreting Provider) on at 8:34 AM Microbiology: N/A Pathology: N/A Assessment/Plan Nicolle Covington is a pleasant 68 y.o. female who presented to the rheumatology department for systemic lupus erythematosus (SLE). Nicolle was seen today for follow-up. Diagnoses and all orders for this visit: Systemic lupus erythematosus, unspecified SLE type, unspecified organ involvement status (HRC) - CBC -W/Diff; Future - C3 Complement; Future - C4 Complement; Future - Urinalysis Routine, Micro/Culture if Pos: Clean Catch; Future - TP/Crea Ratio, Urine; Future - DNA Double Stranded Antibody IgG (ALBA); Future High risk medication use Osteoporosis, unspecified osteoporosis type, unspecified pathological fracture presence (HRC) Essential hypertension (HRC) Vaccine counseling Pre-op evaluation Other orders - predniSONE (DELTASONE) 2.5 MG tablet; Take 2 Tablets (5 mg) by mouth daily. Richa presents to the Rheumatology Clinic today for three-month follow up of systemic lupus erythematosus and osteoporosis as detailed above. At last visit about 3 months ago, CellCept dose was increased to 1000 mg twice a day given recent subacute cutaneous lupus lesions confirmed on biopsy by Dermatology. These lesions have since resolved. She also remains on prednisone 7.5 mg daily (long-term prednisone) and hydroxychloroquine. In interval, saw Dermatology and skin lesions had essentially resolved. Was prescribed topical tacrolimus but rarely needs to use this. She was also hospitalized in October for hypertensive emergency and required IV antihypertensives. She has since been on multiple oral antihypertensives which has been recently adjusted by cardiology. She is monitoring home blood pressures. Has some days with normal/well-controlled blood pressure and other days has more elevated blood pressures. Also planning to have vascular procedure in about 3 weeks at [facility] (aorta and iliac angiogram with possible left iliac stent angioplasty). Today, lupus disease activity appears to be well-controlled clinically. No new skin rashes. No oralor nasal ulcers. No acutely worsening alopecia. No inflammatory arthritis. Tolerating medications well. Recent lupus related labs has been relatively stable. Had mild decrease in C4 3months ago but C3 was normal. Has had no cytopenias, no proteinuria or hematuria. Has had recent mild creatinine elevation which has stabilized as of visit with Cardiology last week, possibly related to hypertension and antihypertensive adjustments. Given lupus disease stability, we discussed decreasing her prednisone dose to 5 mg daily. This should hopefully help with hypertension and bruising. I also recommended stopping meloxicam as she is already on an anti-inflammatory with long-term prednisone and takes naltrexone for chronic pain prescribed by an outside pain clinic. With upcoming lower extremity revascularization/iliac stent procedure in 3 weeks, I discussed stress dose steroids with the patient and provided written instructions for her to bring to her procedure. She should take her usual morning steroid dose) prednisone 5 mg daily) on the day of the procedure. She should get 50 mg of IV hydrocortisone just before procedure and 25 mg of hydrocortisone every 8 hours for 24 hours. She may resume her usual prednisone dose (5 mg daily) thereafter. I recommended PCV 20 vaccination, Shingrix vaccination, influenza vaccination, and COVID-19 vaccination since she is immunosuppressed and high-risk for adverse outcomes from these infections. Patientdeclined these vaccines today. Plan: -update CBC, C3, C4, urinalysis, urine protein/creatinine ratio today -decrease prednisone to 5 mg daily -discontinue meloxicam -continue CellCept 1000 mg twice a day -continue hydroxychloroquine 200 mg daily -continue alendronate 70 mg weekly and vitamin-D supplementation for osteoporosis. Next DEXA scan in 2024 -counseled on strict photoprotection. Provided letter for patient to have tinted windows for photoprotection -see recommendations above for stress dose steroids with upcoming vascular procedure -continue close follow up with Cardiology and vascular surgery -follow up in the rheumatology clinic in 3 months Freeman Lopez DO 12/22/2023 11:16 AM This documentation was completed using M*Modal [employer]ency Direct Dictation Software which may contain typographical and word substitution errors. Please contact my office if clarification is needed. Billing based on: Time Total time for the visit was 71 minutes including, but not limited to, vom-cqsu-xg-face time spent reviewing records, counseling, and coordination of care. documented in this encounter Plan of Treatment Upcoming Encounters Date Type Department Care Team (Late st Contact Info) Description 01/24/2024 9:00 AM CDT Appointment [facility] [address] [facility] [address] [place] [phone] 03/14/2024 2:00 PM INDOOR LANDSCAPE ARCHITECT Appointment [facility] Neurosurgery/Ortho Spine [address] [place] [address]. [place] [address] Brandon Kessler MD [address] [place] [address] 03/20/2024 11:15 AM INDOOR LANDSCAPE ARCHITECT Appointment Rheumatology at [facility] [address] [facility] [address] [place] [address] Freeman Lopez DO [address] [place], [place] [id number] documented as of this encounter Results * (ABNORMAL) Urinalysis Routine, Micro/Culture if Pos: Clean Catch (12/22/2023 12:00 PM CDT) Urine Culture Comment Urinalysis results do not meet criteria for urine culture reflex. 12/22/2023 12:10 PM CDT [facility] Urine Color Straw 12/22/2023 12:10 PM CDT [facility] Urine Clarity Clear Clear 12/22/2023 12:10 PM CDT [facility] Specific [place], Urine <=1.005(A) 1.005 - 1.030 12/22/2023 12:10 PM [facility] PH Urine 6.0 5.0 - 8.0 12/22/2023 12:10 PM T [facility] Protein, Urine Qual (mg/dL) Negative Neg/Trace 12/22/2023 12:10 PM T [facility] Glucose Urine Qual (mg/dL) Negative Negative 12/22/2023 12:10 PM [facility] Ketones, Urine (mg/dL) Negative Negative 12/22/2023 12:10 PM T [facility] Urobilinogen, Urine (EU/dL) 0.2 <2.0 12/22/2023 12:10 PM T [facility] Bilirubin Urine Negative Negative 12/22/2023 12:10 PM T [facility] Blood, Urine Negative Neg/Trace 12/22/2023 12:10 PM [facility] Nitrite Urine Negative Negative 12/22/2023 12:10 PM [facility] Leukocyte Est. Negative Negative 12/22/2023 12:10 PM T [facility] Urine Source Clean Catch 12/22/2023 12:10 PM [facility] Urine URINE SPECIMEN COLLECTION, CLEAN CATCH / Unknown Non-blood Collection / Unknown 12/22/2023 12:00 PM CDT 12/22/2023 12:00 PM CDT Luke W Desilet DO LAB_1 Performing Organization Address City/State/[facility] Co de Phone Number [facility] [address] [place] [phone] * DNA Double Stranded Antibody IgG (ALBA) (12/22/2023 11:23 AM CDT) Anti-DNA Antibody IgG 15 <200 IU 12/27/2023 2:12 PM CDT [facility] Anti-DNA Antibody IgG Interpretation Negative Negative 12/27/2023 2:12 PM CDT [facility] Blood Venipuncture / Unknown 12/22/2023 11:23 AM CDT 12/22/2023 11:23 AM CDT Narrative [facility] - 12/27/2023 2:12 PM CDT The following results were obtained with the [employer] QUANTA Lite dsDNA ALBA. dsDNA values obtained with different manufacturers' assay methods may not be used interchangeably. Freeman Lopez DO LAB_1 Performing Organization Address [facility] Phone Number [facility] [address] * C4 Complement (12/22/2023 11:23 AM CDT) C4 Complement 15.0 15.0 - 57.0 mg/dL 12/22/2023 4:07 PM CDT [facility] Blood Venipuncture / Unknown 12/22/2023 11:23 AM CDT 12/22/2023 11:23 AM CDT [facility]ong [facility]1 Performing Organization Address [facility] Phone Number [facility] [address] [place] [address] * C3 Complement (12/22/2023 11:23 AM CDT) C3 Complement 83 83 - 193 mg/dL 12/22/2023 4:07 PM CDT [facility] Blood Venipuncture / Unknown 12/22/2023 11:23 AM CDT 12/22/2023 11:23 AM CDT Freeman Lopez DO LAB_1 Performing Organization Address [facility] Phone Number [facility] [address] [place] [address] documented in this encounter Visit Diagnoses Diagnosis Systemic lupus erythematosus, unspecified SLE type, unspecified organ involvement status (HRC)- Primary High risk medication use Encounter for long-term (current) use of other medications Osteoporosis, unspecified osteoporosis type, unspecified pathological fracture presence (HRC) Essential hypertension (HRC) Unspecified essential hypertension Vaccine counseling Pre-op evaluation Preoperative examination, unspecified documented in this encounter Care Teams Solder Sprayer Relationship Specialty Start Date End Date Dalton Esqueda MD [address] [place] [address] PCP - General Family Practice 06/23/23 documented as of this encounter
--- OUTSIDE RECORDS SUMMARY | 2024-01-12 16:52 | XMS_ITS | Encounter Summary ---
Author Organization [employer] Address [address] [place] [address] Care Team Providers Care Type Rolling Machine Operator Name Role Phone Dalton Esqueda MD Primary Care Provider [phone] Reason for Visit * Reason Comments Hypertension Encounter Details Date Type Department Care Team (Late st Contact Info) Description 11/17/2023 Telephone [facility] Cardiology [facility] [place] [address] Wilfredo Howell III, MD [address] [place] [address] Hypertension Social History Tobacco Use Types Packs/Day Years Used Date Smoking Tobacco: Former Cigarettes Smokeless Tobacco: Never Alcohol Use Standard Drinks/Week Comments Not Currently 0 (1 standard drink = 0.6 oz pur e alcohol) [facility] Utilities Answer Date Recorded In the past 12 months has [employer], gas, oil, or water [employer] threatened to shut off services in your [...] place to sleep or slept in a half-way (including now)? No 11/08/2023 Sex and Gender [...] PM CDT Juan Luis Robles MD to Me DJ 11/17/23 4:17 PM I would try [...] Info) Description 01/24/2024 9:00 AM CDT Appointment [facility] [place] [address] Electrophysiology [address] [place] [phone] 03/14/2024 2:00 PM HARD TILE SETTER Appointment [facility] Neurosurgery/Ortho Spine [address] [facility] [place] [address] Brandon Kessler MD [address] [place] [address] 03/20/2024 11:15 AM HARD TILE SETTER Appointment Rheumatology at [facility] [place] [address] [address] [address] [place] [address] Freeman Lopez, DO [address] [place] [address] documented as of this encounter Visit Diagnoses Not on filedocumented in this encounter Care Teams Type Rolling Machine Operator Relationship Specialty Start Date End Date Dalton Esqueda MD [address] [place] [address] PCP - General Family Practice 06/23/23 documented as of this encounter
--- OUTSIDE RECORDS SUMMARY | 2024-01-12 16:52 | XMS_ITS | Encounter Summary ---
Author Organization [employer] Address [address] [place] [address] Care Team Providers Care Egg Pasteurizer Name Role Phone Dalton Esqueda MD Primary Care Provider [phone] Reason for Visit * Reason Comments Post-Op Problem BLOOD PRESSURE, HIGH Encounter Details Date Type Department Care Team (Late st Contact Info) Description 11/15/2023 Nurse Triage [facility] [address] [place], [place] [address] Unknown, Physician [address] [place], [place] [phone] Post-Op Problem; BLOOD PRESSURE, HIGH Social History Tobacco Use Types Packs/Day Years Used Date Smoking Tobacco: Former Cigarettes Smokeless Tobacco: Never Alcohol Use Standard Drinks/Week Comments Not Currently 0 (1 standard drink = 0.6 oz pur e alcohol) [facility] Utilities Answer Date Recorded In the past 12 months has [employer], gas, oil, or water [employer] threatened to shut off services in your [...] symptoms/situation): Patient states that she was at [facility] last week for uncontrolled HTN. She had [...] neurologic symptoms Protocols used: Blood Pressure - [id number] Plan: MD Consult, Vinay Lindsay Paged at [...] [facility] and higher. Pt states he last reading is 205/94 Plan: Transferred directly to a CareLine RN. documented in this encounter Plan of Treatment Upcoming Encounters Date Type Department Care Team (Late st Contact Info) Description 01/24/2024 9:00 AM CDT Appointment [facility] [address] Electrophysiology [address] [place] [phone] 03/14/2024 2:00 PM INDEPENDENT CONTRACTOR Appointment [facility] Neurosurgery/Ortho Spine [address] [place] [address]. [place] [address] Brandon Kessler MD [address] [place] [address] 03/20/2024 11:15 AM INDEPENDENT CONTRACTOR Appointment Rheumatology at [facility] [place] [address] [address] [address] [place] [address] DesjagdishtFreeman W, DO [address] [place] [address] documented as of this encounter Visit Diagnoses Not on filedocumented in this encounter Care Teams Egg Pasteurizer Relationship Specialty Start Date End Date Dalton Esqueda MD [address] [place] [address] PCP - General Family Practice 06/23/23 documented as of this encounter
--- OUTSIDE RECORDS SUMMARY | 2024-01-12 16:52 | XMS_ITS | Encounter Summary ---
Author Organization [employer] Address [address] [place] [address] Care Team Providers Care Maintenance Trainer Name Role Phone Dalton Esqueda MD Primary Care Provider [phone] Reason for Visit * Reason Comments Follow-up Encounter Details Date Type Department Care Team (Late st Contact Info) Description 12/15/2023 12:40 PM CDT Office Visit [facility] [address] Cardiology [address] [place] [address] Rosa Elena Huynh PA-C [address] [place], [place] [address] Pre-op exam (Primary Dx); Hypertension, unspecified type (HRC); Hyperlipidemia, unspecified hyperlipidemia type (HRC); Hypertensive emergency; SSS (sick sinus syndrome) (HRC); Cardiac pacemaker in situ; Sinus bradycardia; Chronotropic incompetence Social History Tobacco Use Types Packs/Day Years Used Date Smoking Tobacco: Former Cigarettes Smokeless Tobacco: Never Alcohol Use Standard Drinks/Week Comments Not Currently 0 (1 standard drink = 0.6 oz pur e alcohol) [facility] Utilities Answer Date Recorded In the past 12 months has e electric, gas, oil, or water [employer] threatened to shut off services in your [...] place to sleep or slept in a skilled nursing (including now)? No 11/08/2023 Sex and Gender Information Value Date Recorded Sex Assigned at Not on file Gender Identity Female 12/21/2023 11:58 AM CDT Sexual Orientation Not on file documented as of this encounter Last Filed Vital Signs Vital Sign Reading Time Taken Comments Blood Pressure 140/68 12/15/2023 12:36 PM CDT Pulse 64 12/15/2023 12:36 PM CDT Temperature - - Respiratory Rate - - Oxygen Saturation - - Inhaled Oxygen Concentration - - Weight 59.6 kg (131 lb 6.4 oz) 12/15/2023 12:35 PM CDT Height 165.1 cm (5' 5) 12/15/2023 12:35 PM CDT Body Mass Index 21.87 12/15/2023 12:35 PM CDT documented in this encounter Patient Instructions * Patient Instructions* Rosa Elena Huynh PA-C - 12/15/2023 12:40 PM CDT Your Personalized Recommendations From Today's Visit New Medications or Medication Changes: -- start cardura 4 mg in the evening Future Labs or Tests: -- update labs today Other Instructions: -- continue to monitor your BP at home Heart Clinic Follow-up: Plan for routine clinic follow-up in Dr. Howell as scheduled 01/06/24. You will get a reminder letter in the mail. Contact Us: For routine appointment scheduling, please call [phone]. If you have medical questions or concerns, please contact my nurse Traci at [phone] Thank you for choosing [facility] Rosa Elena Huynh PA-C Department of Cardiology documented in this encounter Progress Notes * Rosa Elena Huynh PA-C - 12/15/2023 12:40 PM CDT Cardiology Clinic Progress Note 12/15/2023 Nicolle Covington [id number] Primary Assistant Baseball Coach: Dr. Howell SUBJECTIVE: Nicolle Covington is a pleasant 68 y.o. female who presents to clinic today for follow up of hypertensive urgency/emergency. She is a history of peripheral artery disease, cerebral aneurysm, fibromyalgia, uncontrolled hypertension leading to hypertensive urgency (intolerance to several medications, limiting therapy), lupus, tobacco abuse, and obstructive sleep apnea. She was recently admitted to [facility] 716 to 11/13/2023 with hypertensive urgency. Started on nicardipine drip then transitioned to oral medications (Coreg 6.25 mg b.i.d., losartan 100 mg q.d. Aldactone 25 mg q.d.) during hospital stay noted significant bradycardia. GXT stress test performed with poor heart rate variability, status post ppm placement inpatient. She called in to clinic earlier this month with elevated BP readings, her carvedilol was increased further to 12.5 mg b.i.d. She returns to clinic today. She is overall feeling okay, has some increase in lightheadedness and dizziness with further increase in carvedilol to 12.5 mg twice daily. She also has some significant fatigue that she thinks is related to this higher dose. She follows her blood pressure throughout the day, typically elevated 1st thing in the morning, but improves after she has taken her morning medications. Blood pressure tends to increase throughout the day. Readings have all been less than 180 systolic, however fluctuate between 120-180 systolic. She denies any current headaches, lightheadedness, dizziness. She denies any chest pain or pressure. She has not had any shortness of breath or difficulty breathing. She is taking all of her medications as prescribed. Problem List: Patient Active Problem List Diagnosis Fibromyalgia Hypertension [...] Sinus bradycardia SSS (sick sinus syndrome) (HRC) Cardiac pacemaker in situ Allergies: Reviewed in the EMR Current Medications: Reviewed in the EMR. Cardiac medications include: Aspirin 81 mg daily Carvedilol 12.5 mg b.i.d. Zetia 10 mg daily Losartan 100 mg daily Praluent 75 mg subcu every 14 days Spironolactone 25 mg q.d. Review of Systems: Complete review of systems was performed and was negative except as mentioned above. OBJECTIVE: BP (!) 140/68 (BP Location: Left Arm, BP Cuff Size: Regular) Pulse 64 Ht 5' 5 (165.1 cm) Wt 131 lb 6.4 oz (51233 g) BMI 21.87 kg/m?? Estimated body mass index is 21.87 kg/m?? as calculated from the following: Height as of this encounter: 5' 5 (165.1 cm). Weight as of this encounter: 131 lb 6.4 oz (92966 g). General Appearance: No apparent distress. Pleasant, converses appropriately. Neck: No JVD Lungs: Clear to auscultation bilaterally, no wheezes or crackles Heart: Regular rate and rhythm, S1, S2 normal, no murmur, rub or gallop Extremities: Warm and without edema Neurologic: No focal deficits. Gait appears normal. Psychiatric: Affect is normal, patient is appropriate, grooming is appropriate. Labs: No results found for: CHOL, HDL, TRI, TRIGPOC, LDL, LDLPOC Lab Results Component Value Date Creatinine 1.29 (H) 11/13/2023 Echocardiogram 11/09/2023: SUMMARY: Left ventricular ejection fraction [...] was measured at 246/88. ASSESSMENT/PLAN: Hypertensive urgency/emergency. With recent admission requiring nicardipine drip. Discharged on Coreg, losartan, and spironolactone. Carvedilol dose further increased to 12.5 mg b.i.d. prior to this appointment. BP is fluctuate throughout the day, per review typically running between 120-180 systolic. Readings are higher in the evening typically. Sinoatrial node dysfunction/chronotropic incompetence, s/p pacemaker implant 11/11/2023 PAD. Follows with vascular surgery at [facility] Tobacco abuse, hx of. 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 Neuro evaluated, planning outp neurosurgery appt for eval. Chronic pain. Lupus -- we discussed increasing carvedilol further (hesitant due to lightheadedness/dizziness/fatigue), vs increasing spironolactone (declined bc she does not want to urinate more). Considered addition ofchlorthalidone however she has had side effects with HCTZ. -- add cardura 4 mg DAILY (evening dosing as BP typically higher at night) -- follow up with Dr. Howell as scheduled 01/06/24 for BP follow up -- she has upcoming aorta and iliac angiogram with possible left iliac intervention through vascular surgery team at [facility] scheduled for 01/12/24, no cardiac contraindication to proceeding with this Rosa Elena Huynh PA-C Department of Cardiology My total time was 30 minutes with 20 minutes spent in person reviewing medications, lab results, and plan of care. documented in this encounter Plan of Treatment Upcoming Encounters Date Type Department Care Team (Late st Contact Info) Description 01/24/2024 9:[address] [facility] [address] Electrophysiology [address] [place] [address] 03/14/2024 2:00 PM JAPANESE TUTOR Appointment [facility] Neurosurgery/Ortho Spine [address] [place] [address]. [place] [address] Brandon Kessler MD [address] [place] [address] 03/20/2024 11:15 AM JAPANESE TUTOR Appointment Rheumatology at [facility] [place] [address] [address] [address] [place] [address] Desilet, Freeman W, DO [address] [place], [place] [address] documented as of this encounter Procedures Procedure Name Priority Date/Time Associated Diagnosis Comments ECG 12 LEAD OUTPATIENT Routine 12/15/2023 12:40 PM CDT Pre-op exam documented in this encounter Results * (ABNORMAL) Basic Metabolic Panel (12/15/2023 1:14 PM CDT) Sodium 137 136 - 145 mmol/L 12/15/2023 5:32 PM [facility] Potassium 5.1 3.5 - 5.1 mmol/L 12/15/2023 5:32 PM [facility] Chloride 103 98 - 109 mmol/L 12/15/2023 5:32 PM [facility] CO2 20 20 - 29 mmol/L 12/15/2023 5:32 PM [facility] Anion Gap 14 6 - 16 mmol/L 12/15/2023 5:32 PM [facility] Calcium 11.1(H) 8.4 - 10.4 mg/dL 12/15/2023 5:32 PM [facility] Comment:Low serum albumin ma y artificially lower total calcium, without impacting ionized calcium concentrations. If patient has or is at risk for hypoalbuminemia, consider ionized serum calcium to more accurately assess calcium status. BUN 57(H) 7 - 26 mg/dL 12/15/2023 5:32 PM [facility] Creatinine 1.09(H) 0.55 - 1.02 mg/dL 12/15/2023 5:32 PM [facility] Glucose 119(H) 70 - 100 mg/dL 12/15/2023 5:32 PM [facility] Comment:The given reference range is for the fasting state. Non-fasting reference range for glucose is 70 - 180 mg/dL. GFR, Estimated 55(L) >60 mL/min/1. 73m2 12/15/2023 5:32 PM [facility] Hours Fasting 0.0 8 - 12 Hours 12/15/2023 5:32 PM [facility] Comment:Patient has indicate d a non-fasting status. Blood Venipuncture / Unknown 12/15/2023 1:14 PM CDT 12/15/2023 1:40 PM [facility] - 12/15/2023 5:32 PM T The National Kidney Disease Education Program suggests measuring Cystatin C in patients with eGFRcrea of 45 to 59 ml/min/1.73^2 who do not have other markers of kidney damage (i.e. elevated urine Albumin/Creatinine Ratio or a prior Cystatin C confirming the presence of chronic kidney disease). Rosa Elena Huynh PA-C LAB_1 Performing Organization Address [facility] Co de Phone Number [facility] [address] [place] [address] * ECG 12 Lead Outpatient (12/15/2023 12:40 PM CDT) Ventricular Rate 65 BPM [facility] Atrial Rate 65 BPM [facility] P-R Interval 204 ms MUSE [facility] QRS Duration 90 ms MUSE GHP QT 382 ms MUSE GHP QTc 397 ms MUSE GHP P [place] -3 degrees MUSE GHP R [place] 35 degrees MUSE GHP T [place] 66 degrees MUSE GHP 12/15/2023 12:4 0 PM CDT Narrative [facility] - 12/15/2023 4:07 PM CDT Atrial-paced rhythm Poor R wave progression Abnormal ECG When compared with ECG of 12-NOV-2023 06:51, No significant change was found Confirmed by Christopher Sosa ([id number]) on 12/15/2023 4:07:32 PM Procedure Note Lemuel Sosa MD - 12/15/2023 Atrial-paced rhythm Poor R wave progression Abnormal ECG When compared with ECG of 12-NOV-2023 06:51, No significant change was found Confirmed by Christopher Sosa ([id number]) on 12/15/2023 4:07:32 PM Rosa Elena Huynh PA-C PN ECG ORDERABLES Performing Organization Address [facility] Co de Phone Number [facility] [address] [place] [address] documented in this encounter Visit Diagnoses Diagnosis Pre-op exam- Primary Preoperative examination, unspecified Hypertension, unspecified type (HRC) Hyperlipidemia, unspecified hyperlipidemia type (HRC) Hypertensive emergency Unspecified essential hypertension SSS (sick sinus syndrome) (HRC) Sinoatrial node dysfunction Cardiac pacemaker in situ Sinus bradycardia Other specified cardiac dysrhythmias Chronotropic incompetence Other specified conduction disorder documented in this encounter Care Teams Maintenance Trainer Relationship Specialty Start Date End Date Dalton Esqueda MD [address] [place] [address] PCP - General Family Practice 06/23/23 documented as of this encounter
--- OUTSIDE RECORDS SUMMARY | 2024-01-12 16:52 | XMS_ITS | Encounter Summary ---
Author Organization [employer] Address [address] [place] [address] Care Team Providers Care General Ledger Accountant Name Role Phone Dalton Esqueda MD Primary Care Provider [phone] Reason for Visit * Reason Comments UPDATE Encounter Details Date Type Department Care Team (Late st Contact Info) Description 12/06/2023 Telephone [facility] Cardiology [employer] [place] [address] Wilfredo Howell III, MD [address] [place] [address] UPDATE Social History Tobacco Use Types Packs/Day Years Used Date Smoking Tobacco: Former Cigarettes Smokeless Tobacco: Never Alcohol Use Standard Drinks/Week Comments Not Currently 0 (1 standard drink = 0.6 oz pur e alcohol) [facility] Utilities Answer Date Recorded In the past 12 months has [employer], gas, oil, or water [employer] threatened to shut off services in your [...] place to sleep or slept in a fci (including now)? No 11/08/2023 Sex and Gender [...] previously had praluent prescribed through a prior yarn skeins examiner and is wondering if Dr. Howell would [...] Info) Description 01/24/2024 9:00 AM CDT Appointment [facility] [address] Electrophysiology [address] [place] [address] 03/14/2024 2:00 PM KILN STOKER Appointment [facility] Neurosurgery/Ortho Spine [address] [place] [address]. [place] [address] Brandon Kessler MD [address] [place] [address] 03/20/2024 11:15 AM KILN STOKER Appointment Rheumatology at [facility] [place] [address] [facility] [address] [place] [address] DesiletFreeman W, DO [address] [place] [address] documented as of this encounter Visit Diagnoses Not on filedocumented in this encounter Care Teams General Ledger Accountant Relationship Specialty Start Date End Date Dalton Esqueda MD [address] [place] [address] PCP - General Family Practice 06/23/23 documented as of this encounter
--- OUTSIDE RECORDS SUMMARY | 2024-01-12 16:52 | XMS_ITS | Encounter Summary ---
Author Organization [facility] Address [address] [place] [address] Care Team Providers Care Cafeteria Supervisor Name Role Phone Dalton Esqueda MD Primary Care Provider [phone] Encounter Details Date Type Department Care Team (Late st Contact Info) Description 11/17/2023 E-Visit [facility] [address] [place] [address] [place], [place] [address] Social History Tobacco Use Types Packs/Day Years Used Date Smoking Tobacco: Former Cigarettes Smokeless Tobacco: Never Alcohol Use Standard Drinks/Week Comments Not Currently 0 (1 standard drink = 0.6 oz pur e alcohol) [facility] Utilities Answer Date Recorded In the past [address] [facility] [employer], gas, oil, or water [email or web address] threatened to shut off services in your [...] Description 01/24/2024 9:[address] [facility] [address] [facility] [address] [place] [phone] 03/14/2024 2:00 PM RACQUET MAKER Appointment [facility] Neurosurgery/Ortho Spine [address] [place] [address] Brandon Kessler MD [address] [place] [address] 03/20/2024 11:15 AM RACQUET MAKER Appointment Rheumatology at [facility] [place] [address] [address] [address] [place] [address] Desilet, Freeman W, DO [address] [place] [address] documented as of this encounter Visit Diagnoses Not on filedocumented in this encounter Care Teams Cafeteria Supervisor Relationship Specialty Start Date End Date Dalton Esqueda MD [address] [place] [address] PCP - General Family Practice 06/23/23 documented as of this encounter
--- OUTSIDE RECORDS SUMMARY | 2024-01-12 16:52 | XMS_ITS | Encounter Summary ---
Author Organization [employer] Address [address] [place] [address] Care Team Providers Care Roving Tester Laboratory Name Role Phone Dalton Esqueda MD Primary Care Provider [phone] Reason for Referral * (Routine) - New Request Specialty Diagnoses / Procedures Referred By Jonathan mora Referred To Contact Diagnoses SSS (sick sinus syndrome) (HRC) Cardiac pacemaker in situ Procedures Pacemaker Evaluation James Tejada MD [address] [place] [address] Referral ID Status Reason Start Date Expiration Date V isits Requested Visits Authorized [id number] New Request 11/22/2023 02/20/2025 1 1 Reason for Visit * Reason Comments Device Check Encounter Details Date Type Department Care Team (Late st Contact Info) Description 11/22/2023 8:45 AM CDT [facility] Electrophys[place] [address] SSS (sick sinus syndrome) (HRC) (Primary Dx); Cardiac pacemaker in situ Social History Tobacco Use Types Packs/Day Years Used Date Smoking Tobacco: Former Cigarettes Smokeless Tobacco: Never Alcohol Use Standard Drinks/Week Comments Not Currently 0 (1 standard drink = 0.6 oz pur e alcohol) [facility] Utilities Answer Date Recorded In the past 12 months has th e [employer], gas, oil, or water [employer] threatened to shut off services in your [...] place to sleep or slept in a snf (including now)? No 11/08/2023 Sex and Gender Information Value Date Recorded Sex Assigned at Not on file Gender Identity Female 12/21/2023 11:58 AM CDT Sexual Orientation Not on file documented as of this encounter Plan of Treatment Upcoming Encounters Date Type Department Care Team (Late st Contact Info) Description 01/24/2024 9:00 AM CDT Appointment [facility] [address] Electrophysiology [address] [place] [address] 03/14/2024 2:00 PM CLINICAL LIAISON Appointment [facility] Neurosurgery/Ortho Spine [address] [facility] [place] [address] Brandon Kessler MD [address] [place] [address] 03/20/2024 11:15 AM CLINICAL LIAISON Appointment Rheumatology at [facility] [place] [address] [address] [address] [place] [address] Desilet, Freeman W, DO [address] [place], [place] [address] documented as of this encounter Procedures Procedure Name Priority Date/Time Associated Diagnosis Comments PACEMAKER EVALUATION Routine 11/22/2023 8:55 AM CDT SSS (sick sinus syndrome) (HRC) Cardiac pacemaker in situ documented in this encounter Results * Pacemaker Evaluation (11/22/2023 8:55 AM CDT) 11/22/2023 8:55 AM CDT Narrative PACEART - 11/22/2023 8:55 AM CDT Normal dual chamber pacemaker function. Patient presents for first visit after implant. Incision C/D/I, without any signs of infection. Incision edges well approximated. The device was interrogated and reprogrammed to assess data, thresholds, and function. No atrial or ventricular high rate episodes noted. PERSONAL INSURANCE ADVISOR <0.1%. Already enrolled in [employer], RTC in 3 months. Please contact [phone] if any questions. dwk James Tejada MD PN ELECTROPHYSIOLOGY ORDERABLE PACEART documented in this encounter Visit Diagnoses Diagnosis SSS (sick sinus syndrome) (HRC)- Primary Sinoatrial node dysfunction Cardiac pacemaker in situ documented in this encounter Care Teams Roving Tester Laboratory Relationship Specialty Start Date End Date Dalton Esqueda MD [address] [place] [address] PCP - General Family Practice 06/23/23 documented as of this encounter
--- OUTSIDE RECORDS SUMMARY | 2024-01-12 16:53 | XMS_ITS | Encounter Summary ---
Author Organization [employer] Address [address] [place] [address] Care Team Providers Care Underwriting Analyst Name Role Phone Dalton Esqueda MD Primary Care Provider [phone] Encounter Details Date Type Department Care Team (Latest Contact Info) Description 11/08/2023 Orders Only HIM DEPARTMENT Provider, [place] [address] Social History Tobacco Use Types Packs/Day Years Used Date Smoking Tobacco: Former Cigarettes Smokeless Tobacco: Never Alcohol Use Standard Drinks/Week Comments Not Currently 0 (1 standard drink = 0.6 oz pur e alcohol) [facility] Utilities Answer Date Recorded In the past 12 months has e [employer], gas, oil, or water [employer] threatened to shut off services in [...] Info) Description 01/24/2024 9:00 AM CDT Appointment [facility] [address] [facility] [address] [place] [address] 03/14/2024 2:00 PM STAMPING BENCH DIE MAKER Appointment [facility] Neurosurgery/Ortho Spine [address] [place] [address]. [place] [address] Brandon Kessler MD [address] [place] [address] 03/20/2024 11:15 AM STAMPING BENCH DIE MAKER Appointment Rheumatology at [facility] [place] [address] [facility] [address] [place] [address] DesiletFreeman W, DO [address] [place] [address] documented as of this encounter Procedures Procedure Name Priority Date/Time Associated Diagnosis Comments PROCEDURE IP 11/08/2023 documented in this encounter Results * PROCEDURE IP (11/08/2023) Anatomical Region Laterality Modality Other Interface Provider MD DUMMY/OTHER/AR documented in this encounter Visit Diagnoses Not on filedocumented in this encounter Care Teams Underwriting Analyst Relationship Specialty Start Date End Date Dalton Esqueda MD [address] [place] [address] PCP - General Family Practice 06/23/23 documented as of this encounter
--- OUTSIDE RECORDS SUMMARY | 2024-01-12 16:53 | XMS_ITS | Encounter Summary ---
Author Organization [employer] Address [address] [place] [address] Care Team Providers Care Surface To Air Weapons Officer Name Role Phone Dalton Canales MD Primary Care Provider [phone] Reason for Visit * Reason Comments Follow-up Encounter Details Date Type Department Care Team (Late st Contact Info) Description 11/08/2023 11:30 AM CDT [facility] [address] [facility] [address] [place] [address] Juan Luis Robles MD [address] [facility] [address] [place], [place] [id number] Hypertensive emergency (Primary Dx) Social History Tobacco Use Types Packs/Day Years Used Date Smoking Tobacco: Former Cigarettes Smokeless Tobacco: Never Alcohol Use Standard Drinks/Week Comments Not Currently 0 (1 standard drink = 0.6 oz pur e alcohol) [facility] Utilities Answer Date Recorded In the past 12 months has [employer] electric, gas, oil, or water company threatened [...] not included. Cardiology Clinic Note Nicolle Covington [id number] 11/08/2023 Referring provider: Dalton Canales MD [address] [facility] [address] Dear Dalton Canales MD, I had the pleasure of seeing Nicolle Covington at the [facility] in [place] today. Problem List Uncontrolled HTN Multiple medication [...] Oral, WEEKLY, Take 30 minutes before first wiuv-tujfc-oadjhkiomy. Avoid lying down for 30 minutes. aspirin [...] the ambulance take her to the [facility] ER so that she can be started on treatment there and then be admitted. Arrangements have been made through the hospitalist service at [facility]. Thank you for allowing us to participate in the care of your patient, Nicolle Covington. If you have any questions regarding these recommendations, please feel free to contact me. Juan Luis Robles MD Department of Cardiology [facility] Allergies Allergen Reactions [...] CBD Age-related osteoporosis without current pathological fracture ([facility]) 03/28/2018 Obstructive sleep apnea 03/23/2018 Hypothyroidism ([facility]) 06/30/2017 Chronic SI joint pain ([facility]) 12/20/2016 Onychomycosis of toenail 11/01/2016 Tinea corporis 11/01/2016 Brain aneurysm 08/28/2016 Frequent headaches 08/28/2016 Lupus ([facility]) 11/24/2015 Left-sided tinnitus 11/20/2015 Fibromyalgia 03/31/2015 Subacute cutaneous lupus erythematosus 03/31/2015 Generalized anxiety disorder ([facility]) 06/20/2014 Hypertension ([facility]) 08/23/2011 Stenosis of left carotid artery 08/17/2011 Overview Note: 08/26/11: Right carotid endarterectomy Adjustment disorder with depressed mood ([facility]) 04/09/2007 Tobacco use disorder ([facility]) 07/11/2006 Hyperlipidemia ([facility]) 07/11/2006 Overview Note: does not tolerate statins: [...] Info) Description 01/24/2024 9:00 AM CDT Appointment Ericson Tam[facility] [place] [address] [facility] [address] [place] [address] 03/14/2024 2:00 PM LOADER SEMICONDUCTOR DIES Appointment [facility] [place] Neurosurgery/Ortho Spine [address] [place] [address] Brandon Kessler MD [address] [place] [address] 03/20/2024 11:15 AM LOADER SEMICONDUCTOR DIES Appointment Rheumatology at [facility] [place] [address] [address] [address] [place] [address] Freeman Lopez W, DO [address] [place] [address] documented as of this encounter Visit Diagnoses Diagnosis Hypertensive emergency- Primary Unspecified essential hypertension documented in this encounter Care Teams Surface To Air Weapons Officer Relationship Specialty Start Date End Date Dalton Canales MD [address] [place] [address] PCP - General Family Practice 06/23/23 documented as of this encounter
--- OUTSIDE RECORDS SUMMARY | 2024-01-12 16:53 | XMS_ITS | Encounter Summary ---
Author Organization [employer] Address [address] [place] [address] Care Team Providers Care Medical Office Worker Name Role Phone Dalton Esqueda MD Primary Care Provider [phone] Reason for Visit * Reason Comments Medication Questions Encounter Details Date Type Department Care Team (Late st Contact Info) Description 10/13/2023 Telephone [facility] Cardiology [address] [place] [address] Wilfredo Howell III, MD [address] [place] [address] Medication Questions Social History Tobacco Use Types [...] 10/13/2023 4:33 PM CDT Call received from [facility] pharmacy through triage requesting clarification for the Losartan Rx. Prescription was clarified and filled. documented in this encounter Plan of Treatment Upcoming Encounters Date Type Department Care Team (Late st Contact Info) Description 01/24/2024 9:00 AM CDT Appointment [facility] [address] [facility] [address] [place] [phone] 03/14/2024 2:00 PM PIERCING ARTIST Appointment [facility] Neurosurgery/Ortho Spine [address] [facility] [place] [address] Brandon Kessler MD [address] [place] [phone] 03/20/2024 11:15 AM PIERCING ARTIST Appointment Rheumatology at [facility] [place] [address] [address] [address] [place] [address] DesiletFreeman W, DO [address] [place] [address] documented as of this encounter Visit Diagnoses Not on filedocumented in this encounter Care Teams Medical Office Worker Relationship Specialty Start Date End Date Dalton Esqueda MD [address] [place] [address] PCP - General Family Practice 06/23/23 documented as of this encounter
--- OUTSIDE RECORDS SUMMARY | 2024-01-12 16:53 | XMS_ITS | Encounter Summary ---
Author Organization [facility] Address [address] [place] [address] Care Team Providers Care Blankmaker Name Role Phone Dalton Esqueda MD Primary Care Provider [phone] Encounter Details Date Type Department Care Team (Late st Contact Info) Description 10/24/2023 Notes/Orders [facility] Center Cardiology [address] [place] [address]. [place], [place] [id number] Wilfredo Howell III, MD [address] [place] [phone] Social History Tobacco Use Types Packs/Day Years [...] Department Care Team (Late Contact Info) Description 01/24/2024 9:00 AM CDT Appointment [facility] [place] [address] [facility] [address] [place] [address] 03/14/2024 2:00 PM ALIGNER TYPEWRITER Appointment [facility] Neurosurgery/Ortho Spine [address] [facility] [place], [place] [id number] Brandon Kessler MD [address] [place] [address] 03/20/2024 11:15 AM ALIGNER TYPEWRITER Appointment Rheumatology at [facility] [address] [place] [address] Freeman Lopez W, DO [address] [place], [place] [address] documented as of this encounter Visit Diagnoses Not on filedocumented in this encounter Care Teams Blankmaker Relationship Specialty Start Date End Date Dalton Esqueda MD [address] [place] [address] PCP - General Family Practice 06/23/23 documented as of this encounter
--- OUTSIDE RECORDS SUMMARY | 2024-01-12 16:53 | XMS_ITS | Patient Health Record ---
Author Organization [facility] Address [address] [place] [address] [address] [place] [address] Care Team Providers Care Special Trackwork Blacksmith Name Role Phone Dalton Pena MD Primary Care Provider Unavailable Rambo Raymond Unavailable [phone] Dalton Dale MD Unavailable Unavail able Allergies [...] Unknown Drug Allergy Activ e Substance with 3-cgnndsm-3-methylglutar yl-coenzyme A reductase inhibitor mechanism of action (substance) Statins Unknown Drug Allergy Active sulfasalazine Sulfasalazine Unknown Drug Allergy Active venlafaxine Venlafaxine Unknown Drug Allergy Act epi Reason For Referral No Information Medications Medication SIG (Take, Route, Frequency, Duration) Notes Start Date End Date Status Mupirocin 2 % 1 application Electrical Maintenance Man ally Twice a day Active Temovate 0.05 % 1 application Electrical Maintenance Man ally Twice a day Active Ondansetron Active [...] Status Risk Notes Problem Systemic lupus erythematosus (22188116) Systemic lupus erythematosus, unspecified (M32.9) Active confirmed Problem Cervical spondylosis without myelopathy (360636900) Spondylosis without myelopathy or radiculopathy, cervical region (M47.812) Active confirmed Problem Lumbosacral spondylosis without myelopathy (90312327) Spondylosis without myelopathy or radiculopathy, lumbar region (M47.816) Active confirmed Problem Backache (096701635) Dorsalgia, unspecified (M54.9) Active confirmed Problem Muscle wasting disorder (26066003) Muscle wasting and atrophy, not elsewhere classified, multiple sites (M62.59) Active confirmed Problem Impingement syndrome of shoulder region (618253386) Impingement syndrome of right shoulder (M75.41) Active confirmed Problem Age-related osteoporosis (041094547) Age-related osteoporosis without current pathological fracture (M81.0) Active confirmed Problem Abnormal gait (36298122) Unspecified abnormalities of gait and mobility (R26.9) Active confirmed Problem Neck pain (15397811) Neck pain (M54.2) Active confirmed Problem Headache disorder (622089543) Headache disorder (R51.9) Active confirmed Problem Low back pain (703183563) Low back pain (M54.50) Active confirmed Plan Of Treatment No Information Insurance Providers Payer Name Payer Address Payer Phone Subscriber Number Group Number Insured Name Patient Relationship to Insured Coverage Start Date Coverage End Date Medicare Part B [employer] [address] [place] [phone] [id number] Nicolle Soto Self - patient is the insured [address] [facility] [address] [address] [place] [address] [id number] Nicolle Soto Self - patient is the [...] Fibromyalgia JUJU Positive Surgical History Surgery Date(Month/Year) colonoscopy diagnostic 2020 stent-right and left common iliacs 2018 left carotid endarectomy 2016 Lumbar RFA at bilateral L3-4 and Sacial ala TFE at L5-S1 01/24/2017 colonoscopy 2012 right carotid endarterectomy 2010 Parathyroid 2010 Deltoid Repair in Right Shoulder 2007 2 Rotator Cuff Surgeries for Right Shoul joe 2007 Sinus Dist 2001 Hystromicty and appendectomy 1994 C section 1976 Hospitalization History Reason Date(Month/Year) Will bring list
--- OUTSIDE RECORDS SUMMARY | 2024-01-12 16:53 | XMS_ITS | Encounter Summary ---
Author Organization [facility] Address [address], [place] [address] Care Team Providers Care Alarm Mechanism Adjuster Name Role Phone Dalton Canales MD Primary Care Provider [phone] Reason for Referral * Consult/Transfer Care (Routine) - New Request Specialty Diagnoses / Procedures Referred By Jonathan mora Referred To Contact Diagnoses Hypertensive emergency Gabbie Blackman MD [address] [place] [address] [address] Referral ID Status Reason Start Date Expiration Date V isits Requested Visits Authorized [id number] New Request 11/13/2023 02/11/2024 1 1 Scheduling Instructions Your clinician has recommended an appointment with [facility] for your ongoing patient care. You can quickly make your appointment online at [employer]/schedule. You can also call [phone] for help scheduling your appointment. We suggest you call your health insurance c kaylin about your coverage and benefits for this appointment. Question Answer What type of follow up? IP Discharge Appointment Urgency? Non-Urgent Comments Primary Care Provider: Dalton Canales MD * (Routine) - New Request Specialty Diagnoses / Procedures Referred By Jonathan mora Referred To Contact Procedures Physical Therapy Eval and Stefanie Cuba, MD [address] [place] [address] Referral ID Status Reason Start Date Expiration Date V isits Requested Visits Authorized [id number] New Request 11/11/2023 02/09/2025 1 1 * Procedure/Equipment (Routine) - Incomplete Specialty Diagnoses / Procedures Referred By Contac t Referred To Contact Procedures XR Chest 2 Views Gilbert Grey MD [address] [place] [address] Referral ID Status Reason Start Date Expiration Date V isits Requested Visits Authorized [id number] Incomplete 11/11/2023 02/09/2025 1 1 * (Routine) - Incomplete Specialty Diagnoses / Procedures Referred By Contac t Referred To Contact Procedures ECG 12 Lead Inpatient, On post-op day #1 Gilbert Grey MD [address] [place] [address] Referral ID Status Reason Start Date Expiration Date V isits Requested Visits Authorized [id number] Incomplete 11/11/2023 02/09/2025 1 1 * (Routine) - Incomplete Specialty Diagnoses / Procedures Referred By Contac t Referred To Contact Procedures ECG 12 Lead Inpatient Now Gilbert Grey MD [address] [place] [address] Referral ID Status Reason Start Date Expiration Date V isits Requested Visits Authorized [id number] Incomplete 11/11/2023 02/09/2025 1 1 * (Routine) - New Request Specialty Diagnoses / Procedures Referred By Contac t Referred To Contact Procedures Permanent Pacemaker Implantation (Inpatient) Sharona White APRN, DOM [address] [place] [address] Referral ID Status Reason Start Date Expiration Date V isits Requested Visits Authorized [id number] New Request 11/10/2023 02/08/2025 1 1 * (Routine) - Incomplete Specialty Diagnoses / Procedures Referred By Contac t Referred To Contact Procedures STAT ECG 12 Lead Inpatient Stefanie Perez MD [address] [place] [address] Referral ID Status Reason Start Date Expiration Date V isits Requested Visits Authorized [id number] Incomplete 11/10/2023 02/08/2025 1 1 * Consult/Transfer Care (Routine) - New Request Specialty Diagnoses / Procedures Referred By Contac t Referred To Contact Neurosurgery Diagnoses Brain aneurysm Lemuel Moses DO [address] [place] [address] [facility] Neurosurgery/Ortho Spine [address] [place] [address]. [place] [address] Referral ID Status Reason Start Date Expiration Date V isits Requested Visits Authorized [id number] New Request 11/10/2023 02/08/2025 1 1 Scheduling Instructions Your clinician has recommended an appointment with [facility]. You may call [phone] to schedule your appointment. We suggest you [...] GXT Stress Test Wilfredo Howell III, MD [address] [place] [address] Referral ID Status Reason Start Date Expiration Date V isits Requested Visits Authorized [id number] New Request 11/10/2023 02/08/2025 1 1 * Procedure/Equipment (Routine) - New Request Specialty Diagnoses / Procedures Referred By Contac t Referred To Contact Procedures Echocardiogram Crow Howell PA-C [address] [place] [address] Referral ID Status Reason Start Date Expiration Date V isits Requested Visits Authorized [id number] New Request 11/08/2023 02/06/2025 1 1 * (Routine) - Incomplete Specialty Diagnoses / Procedures Referred By Contac t Referred To Contact Procedures ECG 12 Lead Inpatient Crow Howell PA-C [address] [place] [address] Referral ID Status Reason Start Date Expiration Date V isits Requested Visits Authorized [id number] Incomplete 11/08/2023 02/06/2025 1 1 * Procedure/Equipment (Routine) - Incomplete Specialty Diagnoses / Procedures Referred By Contac t Referred To Contact Procedures XR Portable Chest 1 View rCow Howell PA-C [address] [place] [address] Referral ID Status Reason Start Date Expiration Date V isits Requested Visits Authorized [id number] Incomplete 11/08/2023 02/06/2025 1 1 * Procedure/Equipment (Routine) - Incomplete Specialty Diagnoses / Procedures Referred By Contac t Referred To Contact Procedures CT Angio Neck Head W IV Cont Kavon Vázquez DO [address] [place] [address] Referral ID Status Reason Start Date Expiration Date V isits Requested Visits Authorized [id number] Incomplete 11/08/2023 02/06/2025 1 1 * Procedure/Equipment (Routine) - Incomplete Specialty Diagnoses / Procedures Referred By Contac t Referred To Contact Procedures CT Head WO IV Kavon Saravia DO [address] [place] [address] Referral ID Status Reason Start Date Expiration Date V isits Requested Visits Authorized [id number] Incomplete 11/08/2023 02/06/2025 1 1 * (Routine) - Incomplete Specialty Diagnoses / Procedures Referred By Contac t Referred To Contact Procedures ECG 12 Lead Jenaro Robles MD [address] [place] [address] Referral ID Status Reason Start Date Expiration Date V isits Requested Visits Authorized [id number] Incomplete 11/08/2023 02/06/2025 1 1 Reason for [...] Expiration Date Visits Re quested Visits Authorized [id number] 1 1 Encounter Details Date Type Department Care Team (Late st Contact Info) Description 11/08/2023 12:45 PM CDT - 11/13/2023 11:30 AM CDT Hospital Encounter [facility] 2NS-MS ICU [address] [facility] [place], [place] [address] Kavon Vázquez DO [address] [place], [place] [address] Christian Carter MD [address], [place] [address] Crow Howell PA-C [address] [place] [address] Filomena Lopes DO [address] [place], [place] [address] Stefanie Perez MD [address] [place], [place] [phone] Gabbie Blackman MD [address] [place] [phone] Chronic pain syndrome (Primary Dx); Hypertensive emergency; Cerebral aneurysm without rupture; Acute nonintractable headache, unspecified headache type; Brain aneurysm Discharge Disposition: Home Social History Tobacco Use Types Packs/Day Years Used Date Smoking Tobacco: Former Cigarettes Smokeless Tobacco: Never Alcohol Use Standard Drinks/Week Comments Not Currently 0 (1 standard drink = 0.6 oz pur e alcohol) [facility] Utilities Answer Date Recorded In the past 12 months has [employer], gas, oil, or water [employer] threatened to shut off services in your [...] place to sleep or slept in a chcf (including now)? 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 Recent Labs 11/11/238 11/12/23 0435 11/13/23 0443 SODIUM 135* 135* 138 K 3.8 4.7 4.5 CHLORIDE 106 108 110* BICARB 20 20 21 BUN 38* 37* 36* CREATININE 1.21* 1.07* 1.29* No results for input(s): MG in the last 72 hours. Invalid input(s): CAIWBCALCIUM Recent Labs 11/11/238 11/12/23 0435 11/13/23 0443 GLUCOSE 84 87 90 [...] every week. Take 30 minutes before first yvwf-veenb-lwmlvtawai on mornings. Avoid lying down for 30 [...] Your Medications These medications were sent to [facility] [address] [place] [address] [address] alendronate 70 MG tablet carvedilol 3.125 MG tablet Outpatient follow up appointments: No follow-up provider specified. Future Appointments Date Time Provider Department Center 11/22/2023 8:45 AM [facility], P[facility]00 EPHYS P6500 EPHYS PN 6500 12/22/2023 10:45 AM Desilet, Freeman Fong, DO [facility] PN PRIYA Blackman MD, [id number] Hospitalist//[facility] For full discharge orders and instructions, please see the after visit summary for this hospitalization. See the electronic medical record for full laboratory and diagnostic test results. documented in this encounter Discharge Instructions * Attachments The following attachments cannot be sent through Care Everywhere. * Biventricular Pacemaker: Post-op (Maori) documented in this encounter Medications at Time of Discharge Medication Sig Dispensed Refills Start Date End Date acetaminophen (TYLENOL 8 HOUR ARTHRITIS PAIN) 650 MG controlled release tablet Take 1 Tablet (650 mg) by mouth every 8 hours as needed. alendronate (FOSAMAX) 70 MG tablet Take 1 Tablet (70 mg) by mouth once every week. Take 30 minutes before first ickr-uilnq-rqyhnyrlun on mornings. Avoid lying down for 30 minutes. 12 Tablet 3 11/13/2023 11/12/2024 aspirin EC 81 MG enteric coated tablet Take 1 Tablet (81 mg) by mouth daily. cholecalciferol (VITAMIND3) 50 MCG (2000 UT) tablet Take 1 Tablet (2,000 Units) by mouth daily. drug not in computer Take by mouth daily. ProOmega Curcumin by [employer]: Take 3 capsules by mouth daily ezetimibe [...] mouth every 6 hours as needed. 03/12/2023 probiotic (AKA SUPER PROBIOTIC) Take 1 Capsule [...] SOAJ Inject subcutaneously every 14 days. 12/07/2023 predniSONE (DELTASONE) 2.5 MG tablet Take 3 Tablets (7.5 mg) by mouth daily. 270 Tablet 1 09/22/2023 12/22/2023 documented as of this encounter Progress Notes [...] Patient discharged by:wheelchair with staff. * Ben Luciano RN - 11/12/2023 6:10 PM CDT Shift Summary: Uneventful. Patient ok to discharge per Cardiology. Granddaughter would be ride home is unable to come Tuesday. Plan for discharge tomorrow Tuesday. Patient in great mood feeling much better with pacemaker placed. Minimal discomfort at incision. Walking around unit independently. Will continue to monitor. * Ciara Kumar OTR/Matthew - 11/12/2023 2:48 PM CDT Occupational Therapy [...] 11/08/2023 Date of Service: 11/12/2023 PCP: Dalton Caanles MD Assessment and Plan: Synopsis: 68-year-old with [...] up tomorrow Gabbie Blackman MD,(charges based on [facility] complexity of cares:High) Subjective Today: Doing well Shower Her granddaughter can pick her up tomorrow Denied any dizziness Blood pressure medication discussed with her Compliance stressed to her Care disussed with team and involved consultants Prior Living Situation: Patient lives in [place], she is alone, her daughter of addiction, [...] guarding Ext: no clubbing, cyanosis, or edema EDUCATION NURSE: no FND Daily Med in Hospital: aspirin [...] known aneurysms TECHNIQUE: CT angiogram of the [place] and CT angiogram of the [...] - 10.5 x10(9)/L Final Recent Labs 11/10/23 0450 WBC 5.8 HGB 12.0 PLTS 238 Recent Labs 11/10/23 0450 11/11/23 0448 11/12/23 0435 SODIUM 138 135* 135* K 4.1 3.8 4.7 CHLORIDE 107 106 108 BICARB 23 20 20 BUN 40* 38* 37* CREATININE 1.18* 1.21* 1.07* No results for input(s): MG in the last 72 hours. Invalid input(s): CAIWBCALCIUM Recent Labs 11/10/23 0450 11/11/23 0448 11/12/23 0435 GLUCOSE 81 84 87 Echocardiogram 11/09/2023: [...] AM CDT Cardiology Progress Note 11/12/2023 Nicolle Martinez Jose [id number] Date of Admission:11/08/2023 SUBJECTIVE: Feels better, no [...] Current weight: Weight: 124 lb 12.5 oz (81396 g) Admit weight: Weight: 124 lb 12.5 oz (92738 g) I & O over last 24 [...] a ride home until tomorrow. Transfer to [address] [place] [address]. -Pacemaker clinic f/u scheduled -Left message with cardiology rehabilitation aide/scheduler to arrange cardiology clinic f/u 3-4 weeks [...] dnr dni Disposition: ok to transfer to [address] [place] [address]/[facility] , needs a few more days for bp titration, will also have PT OT see Notes reviewed: cardiology, Discussed with: Dr Howell Medical decision making high complexity -the patient is receiving a drug therapy requiring monitoring :intermittent iv nicardipine Stefanie Perez MD Hospitalist * Vidya Prabhakar, BUSINESS DEVELOPMENT RECRUITER, [facility] - 11/11/2023 3:22 PM CDT [facility] Care Management Inpatient Note Plan: Expected Discharge Date: TBD Anticipated Discharge Plan: TBD Transportation: TBD Barriers to Discharge: medical stability Prior Living Situation: Alone, Home - multilevel Advanced Directive on File: No Additional Comments: Hospital Care Management was consulted to assist with discharge planning. Chart reviewed. Patient arrives from [facility] for evaluation of hypertension. Patient has a [...] Moody LGSW 3:22 PM 11/11/2023 * Stefanie Keller, RDN - 11/11/2023 3:09 PM CDT Nutrition Assessment Screening: Reason For Assessment: dietitian initiated (LOS day 4-poor intake noted) Current Nutrition Assessment: Pt admittd for evaluation of high blood pressure. Hx includes HTN, HLD, brain aneurysm, lupus. Pt reports intolerance to soy and gluten which has significantly limited her meal options in hospital. 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 Will provide supplement TID at mealtimes. Subjective Information Subjective Information: Met w/ pt at bedside this AM. 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 I encouraged pt to continue to work with diet techs on meal options. In addition will provbijan Alexandrea [employer] Standard supplement at mealtimes TID as a [...] Encourage intake of meals as able; Alexandrea [employer] Content Standard 1.4 supplement w/ meals TID; monitor intake, wt, labs. Will follow up with pt in 3-5 days. See full nutrition assessment in the Patient Story report or Nutrition Assessment flowsheet. Stefanie Keller, MS, RDN, LD, CNSC (Contact Dietitian assigned to patient's floor using [employer]) * Wilfredo Howell III, MD - 11/11/2023 2:35 PM CDT Cardiology Progress Note 11/11/2023 Nicolle [place] [id number] Patient Active Problem List Diagnosis Fibromyalgia Hypertension [...] 1.21 (H) 11/11/2023 No results found for: MACARENA Howell III, MD Department of Cardiology * Ben Luciano RN - 11/11/2023 2:03 PM CDT GOING TO PROCEDURE / SURGERY O: Patient will go to [facility] for Pacemaker placement. D: Patient is alert and oriented x 4. Last recorded vitals: Temp: 36.9 ??C (98.4 ??F) (11/11/23 1200) Pulse: (!) 55 (11/11/23 1300) Resp: 13 (11/11/23 1300) BP: (!) 145/63 (11/11/23 1300) SpO2: 97 % (11/10/23 0800) A: Pre-procedure check list completed. Consent on chart, signed: No R: Awaiting transport. * Traci Francis APRN, COUNTY JUDGE - 11/11/2023 11:42 AM CDT Name: Nicolle [place] : 1955 INPATIENT ELECTROPHYSIOLOGY PROGRESS NOTE Attending: Stefanie Perez MD Admission date: 11/08/2023 Date of service: 11/11/2023 [employer] Supervisor: Dr. Connolly ASSESSMENT/PLAN: 1. Symptomatic sick sinus [...] 11/10/2023 Platelets 238 11/10/2023 Traci Francis APRN, DOM, COUNTY JUDGE Electrophysiology * Ai Thayer RN - 11/11/2023 [...] Procedure Abnormality Status --------- ------ Complete Blood Count-W/...[[id number]] Abnormal Final result Please view results for [...] dnr dni Disposition: ok to transfer to [facility] [place] Notes reviewed:neurology, cardiology, er Discussed with: Dr Howell Medical decision making high complexity -the patient is receiving a drug therapy requiring monitoring : iv nicardipine Stefanie Perez MD Hospitalist * Wilfredo Howell III, MD - 11/10/2023 9:14 AM CDT Cardiology Progress Note 11/10/2023 Nicolle Covington [id number] Patient Active Problem List Diagnosis Fibromyalgia Hypertension [...] voice recognition software. Occasional wrong word or 'kklln-m-szmf' substitutions may have occurred due to software's [...] CARDIAC ELECTROPHYSIOLOGY PROCEDURE REPORT Cardiac Electrophysiology Service [facility] [place] Cardiac [employer] Supervisor: Gilbert Grey MD Date: 11/11/2023 PROCEDURES PERFORMED: [...] PARAMETERS: New Permanent Pacemaker Pulse Generator: Medtronic [place], model [id number] New Right Atrial Lead: Medtronic model [id number] Sensed P waves 4.1 mV, pacing threshold 1.2 V @ 0.5 ms, impedance 898 ohms. New Right Ventricular Lead: Medtronic model [id number] Sensed R waves 9.7 mV, pacing threshold [...] CDTAssociated Order(s): CARE MANAGEMENT CONSULT - [facility] Care Management Inpatient Note Plan: Expected Discharge [...] Howell REASON FOR CONSULTATION: sinus node dysfunction JASEN Covington is a 68 y.o. female with [...] of cerebral aneurysm patient was admitted to [facility]. IN the emergency center BP was elevated to 210/71, BNP mildly elevated, troponin negative. CTA head and neck showing some vertebral artery atherosclerotic disease, what appear to bemostly stable aneurysms, 1 with the right middle cerebral artery, 1 with the left vertebral artery.No large vessel occlusion on CT head. Patient was admitted to [facility] and initiated on nicardipine drip. On [...] recently transferred all of her care to [facility]. She notes that prior to this summer, she could tolerate going to the pool 4-5 times per week to [employer]. She remained active with daily tasks around [...] Resource Strain: Low Risk (03/24/2023) Received from [facility] Financial Resource Strain Difficulty of Paying Living [...] with Dr. Connolly. Sharona White APRN, CNP [facility] Electrophysiology Cardiac Electrophysiology Physician Note I performed a consultative history and physical examination on the patient and discussed her management with Sharona White CNP. I reviewed and edited her note as documented above and agree with the documented findings, assessment, and plan of care. The findings and plan were reviewed and discussed with the patient. Travis Connolly MD Cardiac [employer] Supervisor Please note that the above medical documentation was created using voice recognition software and may contain typographical errors. * Vidya Prabhakar MSW, POOL HALL INSPECTOR - 11/09/2023 1:52 PM CDTAssociated Order(s): CARE MANAGEMENT CONSULT - HOSPITAL [facility] Care Management Inpatient Note Plan: Expected Discharge Date: TBD Anticipated Discharge Plan: TBD Transportation: TBD Barriers to Discharge: medical stability Prior Living Situation: Alone, Home - multilevel Advanced Directive on File: No Additional Comments: Hospital Care Management was consulted to assist with discharge planning. Chart reviewed. Patient arrives from [facility] for evaluation of hypertension. Patient has a [...] arise. Patient/Spokesperson Updated: No BRENNA Moody LGSW 1:52 PM 11/09/2023 * Wilfredo Howell III, MD - 11/09/2023 10:11 AM CDTAssociated Order(s): CARDIOLOGY CONSULT Images from the original note were not included. Cardiology Consult Note 11/09/2023 Nicolle Covington [id number] Requesting physician: Dr. Filomena Lopes MD Primary physician: Dr. Dalton Canales MD Chief complaint: Hypertensive urgency/emergency History of Present Illness: I had the opportunity to visit with Nicolle for a cardiology consultation at [facility] today. She is a 68-year-old female with [...] cm). Weight as of 10/13/23: 126 lb (66110 g). I & O over last 24 [...] from the original note were not included. [facility]. Neurology Consultation Note () Date of service: [...] ischemic. [facility] but has [...] mg 1,000 mg Oral BID nystatin (MYCOSTATIN) 805873 UNIT/GM topical powder Topical BID PRN pantoprazole DR (PROTONIX) tablet 40 mg 40 mg Oral Daily at 6 am polyethyl-propylene glycol (SYSTANE) 0.4-0.3 % ophthalmic solution 1 Drop 1 Drop Both Eyes Q1H PRN predniSONE (DELTASONE) tablet 7.5 mg 7.5 mg Oral Daily sodium chloride (OCEAN) 0.65 % nasal solution 1 [place] 1 [place] Both Nostrils Q2H PRN sodium chloride 0.9% [...] Resource Strain: Low Risk (03/24/2023) Received from [facility] Financial Resource Strain Difficulty of Paying Living [...] groups bilaterally. No pronator drift. Coordination: Intact ipnudd-un-rhij. Finger tapping rapid and rhythmic. Sensory: Intact [...] spent in counseling and coordinating care. A speech/language therapist was not used during this exam. Report Completed by: Lemuel Moses DO Neurology --- End of Report --- documented in this encounter OR Notes * [facility] - Crow Howell PA-C - 11/08/2023 4:05 PM CDT [facility] Medicine History and Physical Date of [...] every week. Take 30 minutes before first qjde-ajbki-fhdhkbcwnq. Avoid lying down for 30 minutes. aspirin [...] sensation to bilateral upper and lower extremities, svjvny-id-lmhw without any dysmetria or ataxia, dcyj-sf-ewyx without any ataxia Results reviewed in Epic [...] hypertensive emergency and plan for admission to [address] [place] [address]/[address] [place] [address] and nicardipine drip. Of note, patient has [...] systolic of less than 170 - hold PROFESSIONAL SYSTEM ADMINISTRATOR losartan, Coreg, spironolactone while on nicardipine drip [...] medications for now History of lupus - PROFESSIONAL SYSTEM ADMINISTRATOR CellCept, hydroxychloroquine, prednisone Anxiety - as prescribed [...] 75 minutes including, but not limited to, vvd-xnzp-js-face time spent reviewing records, counseling, and coordination of care. This note was created with voice recognition software which may have resulted in unintended word substitutions. Crow Howell PA-C [facility] Medicine Pager: [phone] (also on Amion) documented in this encounter ED Notes * Debibe De Oliveira RN - 11/08/2023 7:47 PM CDT Spoke with hospitalist Crow Howell and gave verbal to hold the Nicardapine and still mainta placement to 2NS * Kavon Vázquez DO - 11/08/2023 1:08 PM CDT [...] QT 380 ms QTc 373 ms P Premier 65 degrees R Premier 66 degrees T Premier [address] Angio Neck Head W IV Cont Final Result IMPRESSION INDICATION: sams, htn, known aneurysms TECHNIQUE: CT angiogram of the [place] of [place] and CT angiogram of the [...] P-R Interval QRS Duration QT QTc P Premier R Premier T Premier 11/08/23 13:08:39 11/08/23 15:53:17 58 58 170 98 380 373 65 66 68 Final result Narrative: Sinus bradycardia with marked sinus arrhythmia Anteroseptal infarct (cited on or before 08-NOV-2023) Abnormal ECG When compared with ECG of 26-AUG-2023 15:00, Questionable change in initial forces of Anterior leads Confirmed by Kavon Vázquez ([id number]) on 11/08/2023 3:53:[address] head shows no bleed. ED Course Medications Administered Medications iohexol (OMNIPAQUE 350) 350 MG/ML injection 100 mL (100 mL Intravenous Given 11/08/23 1424) sodium chloride 0.9% injection 10-60 mL (10 mL Intravenous Given 11/08/23 1424) sodium chloride 0.9% bolus 100 mL (100 mL Intravenous Given 11/08/23 1423) HYDROcodone-acetaminophen (NORCO) 5-325 MG per tablet 1 Tablet (1 Tablet Oral Given 11/08/23 1508) Procedures None Discussion of Management None ED Course Clinical Impressions as of 11/08/23 1607 Hypertensive emergency Cerebral aneurysm without rupture Acute nonintractable headache, unspecified headache type Medical Decision Making / Diagnosis MIPS None [facility] Nicolle Covington is a 68 y.o. [...] PM to document services personally performed by Kavon Vázquez DO, based on my observations and the provider's statements to me. 11/08/2023 [facility] Portions of this medical record were completed by a scribe. UPON MY REVIEW AND AUTHENTICATION BY ELECTRONIC SIGNATURE, this confirms (a) I performed the applicable clinical services, and (b) the record is accurate. Kavon Vázquez DO 11/08/231811 documented in this encounter Plan of Treatment Upcoming Encounters Date Type Department Care Team (Late st Contact Info) Description 01/24/2024 9:00 AM CDT Appointment [facility] [place] [address] [facility] [address] [place] [phone] 03/14/2024 2:00 PM CLAIMS SORTER Appointment [facility] [place] [facility] [address] [facility] [address] Brandon Kessler MD [address] [place] [address] 03/20/2024 11:15 AM CLAIMS SORTER [facility] [place] [address] DesiletFreeman, DO [address] [place] [address] Scheduled Orders Name Type Priority Associated Diagnoses [...] Basic Metabolic Panel (11/13/2023 4:43 AM CDT) Sodium 138 136 - 145 mmol/L 11/13/2023 5:33 AM CDT [facility] Potassium 4.5 3.5 - 5.1 mmol/L 11/13/2023 5:33 AM CDT [facility] Chloride 110(H) 98 - 109 mmol/L 11/13/2023 5:33 AM CDT [facility] CO2 21 20 - 29 mmol/L 11/13/2023 5:33 AM CDT [facility] Anion Gap 7 6 - 16 mmol/L 11/13/2023 5:33 AM CDT [facility] Calcium 9.6 8.4 - 10.4 mg/dL 11/13/2023 5:33 AM CDT [facility] BUN 36(H) 7 - 26 mg/dL 11/13/2023 5:33 AM CDT [facility] Creatinine 1.29(H) 0.55 - 1.02 mg/dL 11/13/2023 5:33 AM CDT [facility] Glucose 90 70 - 100 mg/dL 11/13/2023 5:33 AM CDT [facility] Comment:The given reference range is for the fasting state. Non-fasting reference range for glucose is 70 - 180 mg/dL. GFR, Estimated 45(L) >60 mL/min/1.7 3m2 11/13/2023 5:33 AM CDT [facility] Blood Venipuncture / Unknown 11/13/2023 4:43 AM CDT 11/13/2023 5:01 AM CDT Narrative [facility] - 11/13/2023 5:33 AM CDT The National Kidney Disease Education Program suggests measuring Cystatin C in patients with eGFRcrea of 45 to 59 ml/min/1.73^2 who do not have other markers of kidney damage (i.e. elevated urine Albumin/Creatinine Ratio or a prior Cystatin C confirming the presence of chronic kidney disease). Stefanie Perez MD LAB_1 Performing Organization Address City/[facility]/ZIP Co de Phone Number [facility] [address] [phone] * ECG 12 Lead Inpatient, On post-op day #1 (11/12/2023 6:51 AM CDT) Ventricular Rate 62 BPM MUSE GHP Atrial Rate 62 BPM MUSE GHP P-R Interval 204 ms MUSE GHP QRS Duration 86 ms MUSE GHP QT 414 ms MUSE GHP QTc 420 ms MUSE GHP P Premier 22 degrees MUSE GHP R Premier 59 degrees MUSE GHP T Premier 78 degrees MUSE GHP 11/12/2023 6:51 AM [...] MD PN ECG ORDERABLES Performing Organization Address [facility]/ZIP Co de Phone Number [facility] [address] [place] [address] * (ABNORMAL) Basic Metabolic Panel (11/12/2023 4:35 AM CDT) Sodium 135(L) 136 - 145 mmol/L 11/12/2023 5:26 AM CDT [facility] Potassium 4.7 3.5 - 5.1 mmol/L 11/12/2023 5:26 AM CDT [facility] Chloride 108 98 - 109 mmol/L 11/12/2023 5:26 AM CDT [facility] CO2 20 20 - 29 mmol/L 11/12/2023 5:26 AM CDT [facility] Anion Gap 7 6 - 16 mmol/L 11/12/2023 5:26 AM CDT [facility] Calcium 9.2 8.4 - 10.4 mg/dL 11/12/2023 5:26 AM CDT [facility] BUN 37(H) 7 - 26 mg/dL 11/12/2023 5:26 AM CDT [facility] Creatinine 1.07(H) 0.55 - 1.02 mg/dL 11/12/2023 5:26 AM CDT [facility] Glucose 87 70 - 100 mg/dL 11/12/2023 5:26 AM CDT [facility] Comment:The given reference range is for the fasting state. Non-fasting reference range for glucose is 70 - 180 mg/dL. GFR, Estimated 56(L) >60 mL/min/1.7 3m2 11/12/2023 5:26 AM CDT [facility] Blood Venipuncture Butterfly / Unknown 11/12/2023 4:35 AM CDT 11/12/2023 5:04 AM CDT Narrative [facility] - 11/12/2023 5:26 AM CDT The National Kidney Disease Education Program suggests measuring Cystatin C in patients with eGFRcrea of 45 to 59 ml/min/1.73^2 who do not have other markers of kidney damage (i.e. elevated urine Albumin/Creatinine Ratio or a prior Cystatin C confirming the presence of chronic kidney disease). Stefanie Perez MD LAB_1 [facility] [address] [place], [place] [address] * XR Chest 2 Views (11/11/2023 7:41 [...] GHP QTc 435 ms MUSE GHP P Premier 10 degrees MUSE GHP R Premier 61 degrees MUSE GHP T Premier 62 degrees MUSE GHP 11/11/2023 5:58 PM [...] ECG ORDERABLES [facility] [address] [place] [address] * Permanent Pacemaker Implantation (Inpatient) (11/11/2023 3:24 PM CDT) Narrative [facility] - 11/11/2023 3:24 PM CDT Gilbert Grey MD ? 11/11/2023 ??3:26 PM CARDIAC ELECTROPHYSIOLOGY PROCEDURE REPORT Cardiac Electrophysiology Service [facility] [place] [facility] [employer] Supervisor: ??Gilbert Grey MD Date: 11/11/2023 PROCEDURES PERFORMED: [...] [id number] New Right Atrial Lead: ??Medtronic model [id number] Sensed P waves 4.1 mV, pacing threshold 1.2 V @ 0.5 ms, impedance 898 ohms. New Right Ventricular Lead: ??Medtronic model [id number] Sensed R waves 9.7 mV, pacing threshold [...] MD Cardiac Electrophysiology Service Sharona White APRN, COUNTY JUDGE PN ELECTROPHYSIO LOGY ORDERABLE [facility] [address] [place], [place] [id number] * (ABNORMAL) Basic Metabolic Panel (11/11/2023 4:48 AM CDT) Sodium 135(L) 136 - 145 mmol/L 11/11/2023 5:21 AM CDT [facility] Potassium 3.8 3.5 - 5.1 mmol/L 11/11/2023 5:21 AM CDT [facility] Chloride 106 98 - 109 mmol/L 11/11/2023 5:21 AM CDT [facility] CO2 20 20 - 29 mmol/L 11/11/2023 5:21 AM CDT [facility] Anion Gap 9 6 - 16 mmol/L 11/11/2023 5:21 AM CDT [facility] Calcium 9.9 8.4 - 10.4 mg/dL 11/11/2023 5:21 AM CDT [facility] BUN 38(H) 7 - 26 mg/dL 11/11/2023 5:21 AM CDT [facility] Creatinine 1.21(H) 0.55 - 1.02 mg/dL 11/11/2023 5:21 AM CDT [facility] Glucose 84 70 - 100 mg/dL 11/11/2023 5:21 AM CDT [facility] Comment:The given reference range is for the fasting state. Non-fasting reference range for glucose is 70 - 180 mg/dL. GFR, Estimated 49(L) >60 mL/min/1.7 3m2 11/11/2023 5:21 AM CDT [facility] Blood Venipuncture / Unknown 11/11/2023 4:48 AM CDT 11/11/2023 4:52 AM CDT Narrative [facility] - 11/11/2023 5:21 AM CDT The National Kidney Disease Education Program suggests measuring Cystatin C in patients with eGFRcrea of 45 to 59 ml/min/1.73^2 who do not have other markers of kidney damage (i.e. elevated urine Albumin/Creatinine Ratio or a prior Cystatin C confirming the presence of chronic kidney disease). Stefanie Perez MD LAB_1 [facility] [address] * STAT ECG 12 Lead Inpatient (11/10/2023 2:08 PM CDT) Ventricular Rate 39 BPM MUSE G[facility] Atrial Rate 50 BPM MUSE GHP P-R Interval 170 ms MUSE GHP QRS Duration 86 ms MUSE GHP QT 458 ms MUSE GHP QTc 368 ms MUSE GHP P Premier 53 degrees MUSE GHP R Premier 71 degrees MUSE GHP T Premier 70 degrees MUSE GHP 11/10/2023 2:08 PM [...] MD PN ECG ORDERABLES Performing Organization Address [facility] de Phone Number [facility] [address] [place] [address] * INPATIENT TELEMETRY MONITORING (11/10/2023 9:18 AM CDT) TELE P-R INTERVAL 0.17 [facility] TELE QRS DURATION 0.15 M[facility] TELE R-R INTERVAL 1.39 MUSE GHP TELE QT 0.50 MUSE G[facility] TELE INTERPRETATION Sinus Fortino Ирина Scott RN MUSE GHP 11/10/2023 9:18 AM CDT Narrative [facility] - 11/10/2023 10:53 AM CDT Sinus Fortino ??Ирина Scott RN Interface Provider EKG Performing Organization Address [facility] de Phone Number [facility] [address] [place] [address] * GXT Stress Test (11/10/2023 7:52 AM [...] ET ECHO ORDERABL ES Performing Organization Address [facility] Co de Phone Number [facility] [address] [place], [place] [phone] * TSH with reflex to fT4 (not for treatment monitoring) (11/10/2023 4:50 AM CDT) TSH, Reflex 0.90 0.30 - 4.50 uIU/mL 11/10/2023 6:20 PM CDT [facility] Blood Venipuncture / Unknown 11/10/2023 4:50 AM CDT 11/10/2023 5:26 AM CDT Sharona White QUALITY ASSURANCE COORDINATOR, COUNTY JUDGE LAB_1 [facility] [address] [place] [address], [facility] * (ABNORMAL) Complete Blood Count-W/Diff (11/10/2023 4:50 AM CDT) [facility] Signature WBC 5.8 3.5 - 10.5 x10(9)/L 11/10/2023 5:28 AM CDT [facility] RBC 3.84(L) 3.90 - 5.03 x10(12)/L 11/10/2023 5:28 AM CDT [facility] Hemoglobin 12.0 12.0 - 15.5 g/dL 11/10/2023 5:28 AM CDT [facility] HCT 35.8 34.9 - 44.5 % 11/10/2023 5:28 AM CDT [facility] MCV 93.2 80.0 - 100.0 fL 11/10/2023 5:28 AM CDT [facility] MCH 31.3 27.6 - 33.3 pg 11/10/2023 5:28 AM CDT [facility] MCHC 33.5 31.5 - 35.2 g/dL 11/10/2023 5:28 AM CDT [facility] RDW 13.5 11.9 - 15.5 % 11/10/2023 5:28 AM CDT [facility] Platelets 238 150 - 450 x10(9)/L 11/10/2023 5:28 AM CDT [facility] Automated NRBC 0 <=0 /100 WBC 11/10/2023 5:28 AM CDT [facility] Neutrophil Absolute 2.5 1.7 - 7.0 10(9)/L 11/10/2023 5:28 AM CDT [facility] Lymphocyte Absolute 2.3 1.0 - 4.8 10(9)/L 11/10/2023 5:28 AM CDT [facility] Monocyte Absolute 0.7 0.2 - 0.9 10(9)/L 11/10/2023 5:28 AM CDT [facility] Eosinophil Absolute 0.1 0.0 - 0.5 10(9)/L 11/10/2023 5:28 AM CDT [facility] Basophil Absolute 0.0 0.0 - 0.3 10(9)/L 11/10/2023 5:28 AM CDT [facility] Immature Granulocyte % 0.7(H) 0.0 - 0.5 % 11/10/2023 5:28 AM CDT [facility] Blood Venipuncture / Unknown 11/10/2023 4:50 AM CDT 11/10/2023 5:25 AM CDT Filomena Lopes DO LAB_1 [facility] [address] [employer] [address] * (ABNORMAL) Basic Metabolic Panel (IN AM) (11/10/2023 4:50 AM CDT) Sodium 138 136 - 145 mmol/L 11/10/2023 5:58 AM CDT [facility] Potassium 4.1 3.5 - 5.1 mmol/L 11/10/2023 5:58 AM CDT [facility] Chloride 107 98 - 109 mmol/L 11/10/2023 5:58 AM CDT [facility] CO2 23 20 - 29 mmol/L 11/10/2023 5:58 AM CDT [facility] Anion Gap 8 6 - 16 mmol/L 11/10/2023 5:58 AM CDT [facility] Calcium 9.7 8.4 - 10.4 mg/dL 11/10/2023 5:58 AM CDT [facility] BUN 40(H) 7 - 26 mg/dL 11/10/2023 5:58 AM CDT [facility] Creatinine 1.18(H) 0.55 - 1.02 mg/dL 11/10/2023 5:58 AM CDT [facility] Glucose 81 70 - 100 mg/dL 11/10/2023 5:58 AM CDT [facility] Comment:The given reference range is for the fasting state. Non-fasting reference range for glucose is 70 - 180 mg/dL. GFR, Estimated 50(L) >60 mL/min/1.7 3m2 11/10/2023 5:58 AM CDT [facility] Blood Venipuncture / Unknown 11/10/2023 4:50 AM CDT 11/10/2023 5:26 AM CDT Narrative [facility] - 11/10/2023 5:58 AM CDT The National Kidney Disease Education Program suggests measuring Cystatin C in patients with eGFRcrea of 45 to 59 ml/min/1.73^2 who do not have other markers of kidney damage (i.e. elevated urine Albumin/Creatinine Ratio or a prior Cystatin C confirming the presence of chronic kidney disease). Filomena Lopes DO LAB_1 [facility] [address] * INPATIENT TELEMETRY MONITORING (11/09/2023 10:28 AM CDT) TELE INTERPRETATION [facility] 11/09/2023 10:2 8 AM CDT Narrative [facility] - 11/09/2023 10:28 AM CDT [id number] Interface Provider EKG Performing Organization Address [facility] Co de Phone Number [facility] [address] [place] [address] * INPATIENT TELEMETRY MONITORING (11/09/2023 7:45 AM CDT) TELE P-R INTERVAL 0.12 [facility] TELE QRS DURATION 0.05 [facility] TELE R-R INTERVAL 1.08 MUSE GHP TELE QT 0.39 MUSE [facility] TELE INTERPRETATION Sinus Rhythm MUSE G[facility] 11/09/2023 7:45 AM CDT Narrative [facility] - 11/09/2023 7:50 AM CDT Sinus Rhythm Interface Provider EKG Performing Organization Address [facility] Co de Phone Number [facility] [address] [place] [address] * Echocardiogram (11/09/2023 6:53 AM CDT) 11/09/2023 6:53 AM CDT Narrative PN ECHO - 11/09/2023 8:35 AM CDT Procedure type: ? ECHOCARDIOGRAM Procedure ? 11/09/2023 6:53 AM date/time: [facility] Accession #: ?[id number] INDICATIONS Dyspnea/SOB. SUMMARY: Left ventricular ejection fraction [...] Staff Interpreting Provider: ?? NILTON GARCIA MD Bread Wrapping Machine Feeder: ? Ordering Provider: ? JOLEEN Cisneros Attending Physician: ? KAVON VÁZQUEZ DO Electronically signed by NILTON GARCIA [...] Procedure Staff Interpreting Provider: NILTON GARCIA MD Bread Wrapping Machine Feeder: EE Ordering Provider: JOLEEN Cisneros Attending Physician: KAVON VÁZQUEZ DO Electronically signed by NILTON GARCIA MD (Interpreting Provider) on at 8:34 AM Crow Howell PA-C ET ECHO ORDERABLES PN ECHO * Complete Blood Count-No Diff (11/09/2023 4:59 AM CDT) WBC 6.1 3.5 - 10.5 x10(9)/L 11/09/2023 5:21 AM CDT [facility] RBC 3.98 3.90 - 5.03 x10(12)/L 11/09/2023 5:21 AM CDT [facility] Hemoglobin 12.0 12.0 - 15.5 g/dL 11/09/2023 5:21 AM CDT [facility] HCT 36.7 34.9 - 44.5 % 11/09/2023 5:21 AM CDT [facility] MCV 92.2 80.0 - 100.0 fL 11/09/2023 5:21 AM CDT [facility] MCH 30.2 27.6 - 33.3 pg 11/09/2023 5:21 AM CDT [facility] MCHC 32.7 31.5 - 35.2 g/dL 11/09/2023 5:21 AM CDT [facility] RDW 13.4 11.9 - 15.5 % 11/09/2023 5:21 AM CDT [facility] Platelets 236 150 - 450 x10(9)/L 11/09/2023 5:21 AM CDT [facility] Automated NRBC 0 <=0 /100 WBC 11/09/2023 5:21 AM CDT [facility] Blood Venipuncture / Unknown 11/09/2023 4:59 AM CDT 11/09/2023 5:17 AM CDT Crow Howell PA-C LAB_1 [facility] [address] [place] [address], [facility] * (ABNORMAL) Basic Metabolic Panel (11/09/2023 4:59 AM CDT) Pathologist [facility] Sodium 138 136 - 145 mmol/L 11/09/2023 5:43 AM CDT [facility] Potassium 4.0 3.5 - 5.1 mmol/L 11/09/2023 5:43 AM CDT [facility] Chloride 105 98 - 109 mmol/L 11/09/2023 5:43 AM CDT [facility] CO2 26 20 - 29 mmol/L 11/09/2023 5:43 AM CDT [facility] Anion Gap 7 6 - 16 mmol/L 11/09/2023 5:43 AM CDT [facility] Calcium 10.2 8.4 - 10.4 mg/dL 11/09/2023 5:43 AM CDT [facility] BUN 28(H) 7 - 26 mg/dL 11/09/2023 5:43 AM CDT [facility] Creatinine 0.96 0.55 - 1.02 mg/dL 11/09/2023 5:43 AM CDT [facility] Glucose 89 70 - 100 mg/dL 11/09/2023 5:43 AM CDT [facility] Comment:The given reference range is for the fasting state. Non-fasting reference range for glucose is 70 - 180 mg/dL. GFR, Estimated >60 >60 mL/min/1.7 3m2 11/09/2023 5:43 AM CDT [facility] Blood Venipuncture / Unknown 11/09/2023 4:59 AM CDT 11/09/2023 5:17 AM CDT Crow Howell PA-C LAB_1 Performing Organization Address City/State/[facility] Co de Phone Number [facility] [address] [employer] [address] * XR Portable Chest 1 View [...] Molecular Detection (11/08/2023 8:35 PM CDT) Pathologist [facility] MRSA Not Detected Not Detected 11/08/2023 9:53 PM CDT [facility] Swab (Source Required) ENTIRE ANTERIOR NARIS / Unknown Non-blood Collection / Unknown 11/08/2023 8:35 PM CDT 11/08/2023 8:39 PM CDT Narrative [facility] - 11/08/2023 9:53 PM CDT Methodology: Qualitative real-time PCR assay Christian Carter MD LAB_1 Performing Organization Address [facility] de Phone Number [facility] * Glucose, Whole Blood POCT (11/08/2023 8:12 PM CDT) Glucose, Whole Blood 86 70 - 180 mg/dL 11/08/2023 8:13 PM CDT [facility] Performing Location MT 2N/S 11/08/2023 8:13 PM CDT [facility] Blood 11/08/2023 8:12 PM CDT 11/08/2023 8:13 PM CDT Christian Carter MD LAB_1 Performing Organization Address [facility] Phone Number [facility] [address] [place] [address] * (ABNORMAL) Troponin-I (11/08/2023 7:56 PM CDT) Troponin I 0.06(H) 0.00 - 0.03 ng/mL 11/08/2023 8:33 PM CDT [facility] Blood Venipuncture / Unknown 11/08/2023 7:56 PM CDT 11/08/2023 8:00 PM CDT Crow Howell PA-C LAB_1 Performing Organization Address [facility] de Phone Number [facility] [address] * CT Angio Neck Head W IV Cont (11/08/2023 2:23 PM CDT) Anatomical Region Laterality Modality Head, Vascular Computed Tomogra phy 11/08/2023 2:08 PM CDT Impressions 11/08/2023 3:23 PM CDT INDICATION: sams, htn, known aneurysms TECHNIQUE: CT angiogram of the [place] ??and CT angiogram of the [...] known aneurysms TECHNIQUE: CT angiogram of the [place] and CT angiogram of theneck [...] level and the C3-4 levelon the right Kavon Vázquez DO RAD CT * CT Head [...] CT examination. No evidencefor acute intracranial hemorrhage. 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) Abnormal ECG When compared with ECG of 26-AUG-2023 15:00, Questionable change in initial forces of Anterior leads Confirmed by Kavon Vázquez ([id number]) on 11/08/2023 3:53:15 PM Procedure Note Kavon Vázquez DO - 11/08/2023 Sinus bradycardia with marked sinus arrhythmia 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 Peptide 198(H) <=99 pg/mL 11/08/2023 1:57 PM CDT [facility] Blood Venipuncture / Unknown 11/08/2023 1:04 PM CDT 11/08/2023 1:16 PM CDT Kavon Vázquez DO LAB_1 Performing Organization Address [facility] de Phone Number [facility] [address] [place] [address] * Troponin - Once STAT (11/08/2023 1:04 PM CDT) [facility] Troponin I 0.01 0.00 - 0.03 ng/mL 11/08/2023 1:51 PM CDT [facility] Blood Venipuncture / Unknown 11/08/2023 1:04 PM CDT 11/08/2023 1:15 PM CDT Kavon Vázquez DO LAB_1 Performing Organization Address [facility] Co de Phone Number [facility] [address] * Complete Blood Count-W/Diff (11/08/2023 1:04 PM CDT) [facility] WBC 7.8 3.5 - 10.5 x10(9)/L 11/08/2023 1: PM CDT [facility] RBC 4.23 3.90 - 5.03 x10(12)/L 11/08/2023 1: PM CDT [facility] Hemoglobin 13.1 12.0 - 15.5 g/dL 11/08/2023 1: PM CDT [facility] HCT 39.5 34.9 - 44.5 % 11/08/2023 1: PM CDT [facility] MCV 93.4 80.0 - 100.0 fL 11/08/2023 1: PM CDT [facility] MCH 31.0 27.6 - 33.3 pg 11/08/2023 1: PM CDT [facility] MCHC 33.2 31.5 - 35.2 g/dL 11/08/2023 1: PM CDT [facility] RDW 13.5 11.9 - 15.5 % 11/08/2023 1: PM CDT [facility] Platelets 257 150 - 450 x10(9)/L 11/08/2023 1: PM CDT [facility] Automated NRBC 0 <=0 /100 WBC 11/08/2023 1: PM CDT [facility] Neutrophil Absolute 6.3 1.7 - 7.0 10(9)/L 11/08/2023 1: PM CDT [facility] Lymphocyte Absolute 1.1 1.0 - 4.8 10(9)/L 11/08/2023 1: PM CDT [facility] Monocyte Absolute 0.3 0.2 - 0.9 10(9)/L 11/08/2023 1: PM CDT [facility] Eosinophil Absolute 0.0 0.0 - 0.5 10(9)/L 11/08/2023 1: PM CDT [facility] Basophil Absolute 0.0 0.0 - 0.3 10(9)/L 11/08/2023 1:19 PM CDT [facility] Immature Granulocyte % 0.5 0.0 - 0.5 % 11/08/2023 1:19 PM CDT [facility] Blood Venipuncture / Unknown 11/08/2023 1:04 PM CDT 11/08/2023 1:16 PM CDT Jenaro Robles MD LAB_1 Performing Organization Address [facility]/ZIP Co de Phone Number [facility] [address] * Extra Blue top tube (11/08/2023 1:04 PM CDT) Pathologist [facility] Extra Blue Top Drawn Specimen will be held for 24 hours 11/08/2023 3:00 PM CDT [facility] Blood Venipuncture / Unknown 11/08/2023 1:04 PM CDT 11/08/2023 1:16 PM CDT Jenaro Robles MD LAB_1 Performing Organization Address [facility] de Phone Number [facility] [address] * (ABNORMAL) Basic Metabolic Panel (11/08/2023 1:04 PM CDT) Pathologist [facility] Sodium 140 136 - 145 mmol/L 11/08/2023 1:47 PM CDT [facility] Potassium 4.4 3.5 - 5.1 mmol/L 11/08/2023 1:47 PM CDT [facility] Chloride 105 98 - 109 mmol/L 11/08/2023 1:47 PM CDT [facility] CO2 25 20 - 29 mmol/L 11/08/2023 1:47 PM CDT [facility] Anion Gap 10 6 - 16 mmol/L 11/08/2023 1:47 PM CDT [facility] Calcium 11.0(H) 8.4 - 10.4 mg/dL 11/08/2023 1:47 PM CDT [facility] BUN 35(H) 7 - 26 mg/dL 11/08/2023 1:47 PM CDT [facility] Creatinine 0.89 0.55 - 1.02 mg/dL 11/08/2023 1:47 PM CDT [facility] Glucose 109(H) 70 - 100 mg/dL 11/08/2023 1:47 PM CDT [facility] Comment:The given reference range is for the fasting state. Non-fasting reference range for glucose is 70 - 180 mg/dL. GFR, Estimated >60 >60 mL/min/1.7 3m2 11/08/2023 1:47 PM CDT [facility] Blood Venipuncture / Unknown 11/08/2023 1:04 PM CDT 11/08/2023 1:15 PM CDT Jenaro Robles MD LAB_1 [facility] [address] [employer] [address] documented in this encounter Visit Diagnoses [...] - 11/10/2023 4:54 AM CDT Shift Summary [id number]: Cardiac: NSB. SBP goal <170, no intervention needed. GI/: Regular diet. Not much of an appetite. Ambulates to the bathroom. Resp: RA Skin: No issues Neuro: A&Ox4, neuros intact. *PLAN*: -Patient given 1st dose of nadolol today. Heart rates dropped into the 40 beat per minute range with occasional rates into the 30s. We will continue telemetry monitoring now, discontinue beta-bbee, and continue to observe. Patient may have more significant sinoatrial node dysfunction than previously thought. This could be contributing as a cause of reflex hypertension. We will consider electrophysiology consultation ifcontinued significant bradycardia is identified. Per Wilfredo Hill III, MD * Plan of Care - Danyell Simmons RN - 11/09/2023 6:14 PM CDT Shift Update [id number]: Patient reports feeling better today. Headache, PRN norco effective. ECHO this AM, EF 65%. SBP remains within goal. BP meds adjusted today. Patient bradycardic with rates 30s-50s. SBA to bathroom. Pthas low appetite. Unable to eat a lot of foods due to allergies. Will continue to monitor. * Plan of Care - Iwona Bland - 11/08/2023 5:50 PM CDT [facility] Medication History Note 1. Source(s) of [...] by mouth daily - Pro[employer] Curcumin [employer]: Added sig > Take 3 capsules by [...] every week. Take 30 minutes before first [id number]. Avoid lying down for 30 minutes. (Patient taking differently: Take 1 Tablet (70 mg) by mouth once every week. Take 30 minutes before first [id number] on mornings. Avoid lying down for 30 [...] Take by mouth daily. [employer]: Take 3 capsules by mouth daily 11/08/2023 [...] reconciling home medications for hospital use. ? * Triage Assessment Note - Chloe Santiago RN - 11/08/2023 12:52 PM CDT Patient arrives from [facility] for evaluation of hypertension. Per EMS report [...] than 101 F, Starting on Tue11/08/23 at 2012, Until 11/13/23 at 1340, Give [...] to and administered in the Electrophysiology Lab., [facility] Card Started 11/11/2023 2:10 PM CDT [...] take ODT ondansetron, Starting on Tue11/08/23 at 2012, Until Tue11/13/23 [...] Oral, Q6H PRN, Vomiting, Nausea, Starting on Tu11/08/23 at 2012, Until 11/13/23 [...] Until Discontinued 194 (Given - Provider: Atiya Ryan RN) 2030 (Given - Provider: Atiya Ryan RN) carvedilol (COREG) tablet 6.25 mg 6.25 mg, Oral, BID WITH MEALS, First dose on Tue11/11/23 at 1700, Until Discontinued 170 (Given - Provider: Atiya Ryan RN) 0752 (Given - Provider: Ben Luciano RN)1709 (Given - Provider: Ben Luciano RN) 0941 (Given - Provider: Ben Luciano RN) ceFAZolin (ANCEF) 2 g in dextrose 100 mL premade IVPB (COMPLETED) 2 g, Intravenous, Administer over 30 Minutes, ONCE, On Tue11/11/23 at 0830, For 1 dose, Infuse within 60 minutes prior to incision; No intraoperative re-dosing needed. Pharmacy may adjust for renal insufficiency. Dose should be sent to and administered in the Electrophysiology Lab., [facility] Card 1410 (Started - Provider: Shani Zavala RN)1440 (Infused - Provider: Shani Zavala RN) ezetimibe (ZETIA) tablet 10 mg 10 mg, Oral, DAILY, First dose on Tue11/08/23 at 2100, Until Discontinued 1947 (Given - Provider: Atiya Ryan, MENDEL) 2029 (Given - Provider: Atiya Ryan, MENDEL) hydroxychloroquine (PLAQUENIL) tablet 200 mg 200 mg, Oral, DAILY, First dose on Tue11/09/23 at 0800, Until Discontinued 826 (Given - Provider: Ben Luciano RN) 075 (Given - Provider: Ben Luciano RN) 0941 (Given - Provider: Ben Luciano RN) losartan (COZAAR) tablet 100 mg 100 mg, Oral, DAILY, First dose (after last modification) on Tue11/10/23 at 0815, Until Discontinued 826 (Given - Provider: Ben Luciano RN) 751 (Given - Provider: Ben Luciano RN) 0941 (Given - Provider: eBn Luciano RN) mycophenolate (CELLCEPT) tablet TABS 1,000 [...] Ben Luciano RN)2029 (Given - Provider: Atiya Ryan, MENDEL) 09 (Given - Provider: Ben Luciano RN) pantoprazole DR (PROTONIX) tablet 40 mg 40 mg, Oral, DAILY AT 0600, First dose on Tue11/09/23 at 0600, Until Discontinued 0638 (Given - Provider: Ai Thayer RN) 075 (Given - Provider: Ben Luciano, MENDEL) 06 (Given - Provider: Atiya Ryan, MENDEL) predniSONE (DELTASONE) tablet 7.5 mg 7.5 mg, Oral, DAILY, First dose on Tue11/09/23 at 0800, Last dose on Tue03/20/24 at 0800, For 133 days 0828 (Given - Provider: Ben Luciano RN) 075 (Given - Provider: Ben Luciano RN) 0941 (Given - Provider: Ben Luciano, RN) spironolactone (ALDACTONE) tablet 25 mg 25 mg, Oral, DAILY, First dose on Tue11/09/23 at 0800, Until Discontinued, HAZARDOUS DRUG Preparation: Single glove Administration: If no touch, no PPE; if handling, single glove 0829 (Given - Provider: Ben Luciano RN) 0752 (Given - Provider: Ben Luciano RN) 0941 (Given - Provider: Ben Luciano RN) [...] hour prior to the scheduled procedure time., [facility] Card 1410 (Started - Provider: Shani Zavala RN)1530 (Infused - Provider: Shani Zavala RN) sodium chloride 0.9% with KCL 20 mEq/L infusion (CANCELED) Intravenous, at 75 mL/hr, CONTINUOUS, Starting on Tue11/11/23 at 1745 1835 (Started - Provider: Atiya Ryan RN)2200 (Rate/Dose Verify - Provider: Atiya Ryan RN) 0000 (Rate/Dose Verify - Provider: Atiya Ryan RN)0200 (Rate/Dose Verify - Provider: Atiya M Shelby, RN)0400 (Rate/Dose Verify - Provider: Atiya Ryan RN)0600 (Rate/Dose Verify - Provider: Atiya Ryan RN)0651 (Subsequent Bag - Provider: Atiya Ryan RN)1035 (Stopped - Provider: Ben Luciano, MENDEL) PRN Medication Order 11/11/2023 11/12/2023 11/13/2023 acetaminophen [...] Stomach, Starting on Tue11/08/23 at 2011, Until 11/13/23 at 1340, Each tablet provides 200 mg [...] less than 8. 0306 (Given - Provider: Atiya Ryan, MENDEL)2029 (Given - Provider: Atiya Ryan, MENDEL) 0608 (Given - Provider: Atiya Ryan, MENDEL) HYDROmorphone (DILAUDID) tablet 1-2 mg 1-2 mg, [...] insomnia, Starting on Tue11/08/23 at 2011, Until Tue11/13/23 at 1340 metoclopramide (REGLAN) injection 5 mg(Linked [...] -prochlorperazine 3rd Line - metoclopramide nystatin (MYCOSTATIN) 690692 UNIT/GM topical powder Topical, BID PRN, Other, [...] day, Starting on Tue11/08/23 at 2011, Until 11/13/23 [...] chloride (OCEAN) 0.65 % nasal solution 1 [place] 1 [place], Both Nostrils, Q2H PRN, Dry Nose, Starting on Tue11/08/23 at 2011, Until 11/13/23 at 1340 sodium chloride 0.9% injection 10-60 mL 10-60 mL, Intravenous, PRN, Line Patency, Line Care, Starting on Tue11/11/23 at 1753, Until Tue11/13/23 at 1340, Post-Procedure Linked Groups Order Group 1: senna (SENOKOT) tablet 2 TabletJump to med 2 Tablet, Oral, BID PRN, Constipation, No stool in the last day, Starting on Tue11/08/23 at 2011, Until 11/13/23 [...] metoclopramide documented in this encounter Care Teams Alarm Mechanism Adjuster Relationship Specialty Start Date End Date [place] Canales MD [address] [place] [address] PCP - General Family Practice 06/23/23 documented as of this encounter
--- OUTSIDE RECORDS SUMMARY | 2024-01-12 16:53 | XMS_ITS | Encounter Summary ---
Author Organization [facility] Address [address] [place] [address] Care Team Providers Care Two Needle Machine Operator Name Role Phone [place] Esqueda MD Primary Care Provider [phone] Reason for Visit * Reason Comments UPDATE Encounter Details Date Type Department Care Team (Late st Contact Info) Description 10/03/2023 Telephone [facility] [place] [address] Wilfredo Howell III, MD [address] [place] [address] UPDATE Social History Tobacco Use [...] higher dose of carvedilol (6.25 mg BID). [place] okay on the lower dose. Any recommendations [...] Description 01/24/2024 9:00 AM CDT Appointment [facility] [address] [facility] [address] [place] [address] 03/14/2024 2:00 PM ARNP Appointment [facility] Neurosurgery/Ortho Spine [address] [facility] [place] [place] [address] Brandon Kessler MD [address] [place] [address] 03/20/2024 11:15 AM ARNP Appointment Rheumatology at [facility] [place] [address] [facility] [address] [place] [address] Desilet, Luke W, DO [address] [place] [address] documented as of this encounter Visit Diagnoses Not on filedocumented in this encounter Care Teams Two Needle Machine Operator Relationship Specialty Start Date End Date [place] Esqueda MD [address] [place] [address] PCP - General Family Practice 06/23/23 documented as of this encounter
--- OUTSIDE RECORDS SUMMARY | 2024-01-12 16:53 | XMS_ITS | Encounter Summary ---
Author Organization [facility] Address [address] [place] [address] Care Team Providers Care School Photographer Name Role Phone [place] Esqueda MD Primary Care Provider Reason for Visit * Reason Comments Medication Follow Up Encounter Details Date Type Department Care Team (Late st Contact Info) Description 10/10/2023 Telephone [facility] [address] [place] [address] Eva Long MD [address] [place] [address] Medication Follow Up Social History Tobacco [...] like to use goodrx and [facility]. Transferred prescription per protocol * Eva Long MD - 10/10/2023 12:50 PM CDT Please let her know that the tacrolimus was not covered. With [facility] you can get [...] 01/24/2024 9:[address] [facility] [address] Electrophysiology [address] [place] [phone] 03/14/2024 2:00 PM RETURN TO VENDOR Appointment [facility] Neurosurgery/Ortho Spine [address] [place] [address]. [place] [address] Brandon Kessler MD [address] [place] [address] 03/20/2024 11:15 AM RETURN TO VENDOR Appointment Rheumatology at [facility] [place] [address] [address] [address] [place], [place] [address] Freeman Lopez, [address] [place], [place] [address] documented as of this encounter Visit Diagnoses Diagnosis Lupus (HRC) Systemic lupus erythematosus documented in this encounter Care Teams School Photographer Relationship Specialty Start Date End Date [place] Esqueda MD [address], [place] [address] PCP - General Family Practice 06/23/23 documented as of this encounter
--- OUTSIDE RECORDS SUMMARY | 2024-01-12 16:53 | XMS_ITS | Encounter Summary ---
Author Organization [facility] Address [address] [place] [address] Care Team Providers Care Corporate Human Resources Manager Name Role Phone [place] Esqueda MD Primary Care Provider [phone] Encounter Details Date Type Department Care Team (Late st Contact Info) Description 10/26/2023 11:10 AM CDT Lab Visit [facility] [address] [place], [place] [address] High risk medication use Social History Tobacco [...] 01/24/2024 9:00 AM CDT Appointment [facility] [place] [address] Electrophysiology [address] [place] [phone] 03/14/2024 2:00 PM POLISHING MACHINE OPERATOR HELPER Appointment [facility]science [place] Neurosurgery/Ortho Spine [address] [facility] [place] [address] Brandon Kessler MD [address] [place] [address] 03/20/2024 11:15 AM POLISHING MACHINE OPERATOR HELPER Appointment Rheumatology at [facility] [place] [address] [address] [address] [place] [address] DesFreeman brand DO [address] [place] [address] documented as of this encounter Procedures Procedure [...] Complete Blood Count-W/Diff (10/26/2023 11:04 AM CDT) WBC 7.3 3.5 - 10.5 x10(9)/L 10/26/2023 11:07 AM [facility] RBC 3.89(L) 3.90 - 5.03 x10(12)/L 10/26/2023 11:07 AM [facility] Hemoglobin 12.0 12.0 - 15.5 g/dL 10/26/2023 11:07 AM [facility] HCT 36.3 34.9 - 44.5 % 10/26/2023 11:07 AM [facility] MCV 93.3 80.0 - 100.0 fL 10/26/2023 11:07 AM [facility] MCH 30.8 27.6 - 33.3 pg 10/26/2023 11:07 AM [facility] MCHC 33.1 31.5 - 35.2 g/dL 10/26/2023 11:07 AM [facility] RDW 13.5 11.9 - 15.5 % 10/26/2023 11:07 AM [facility] Platelets 271 150 - 450 x10(9)/L 10/26/2023 11:07 AM [facility] Automated NRBC 0 <=0 /100 WBC 10/26/2023 11:07 AM [facility] Neutrophil Absolute 5.6 1.7 - 7.0 10(9)/L 10/26/2023 11:07 AM [facility] Lymphocyte Absolute 1.2 1.0 - 4.8 10(9)/L 10/26/2023 11:07 AM [facility] Monocyte Absolute 0.4 0.2 - 0.9 10(9)/L 10/26/2023 11:07 AM [facility] Eosinophil Absolute 0.1 0.0 - 0.5 10(9)/L 10/26/2023 11:07 AM [facility] Basophil Absolute 0.0 0.0 - 0.3 10(9)/L 10/26/2023 11:07 AM [facility] Immature Granulocyte % 0.4 0.0 - 0.5 % 10/26/2023 11:07 AM [facility] Blood Venipuncture / Unknown 10/26/2023 11:04 AM CDT 10/26/2023 11:04 AM CDT Luke W Desilet DO LAB[facility] [address] [place] [address] * (ABNORMAL) Comp Metabolic Panel (10/26/2023 11:04 AM CDT) Sodium 139 136 - 145 mmol/L 10/26/2023 1:06 PM [facility] Potassium 4.9 3.5 - 5.1 mmol/L 10/26/2023 1:06 PM [facility] Chloride 106 98 - 109 mmol/L 10/26/2023 1:06 PM [facility] CO2 23 20 - 29 mmol/L 10/26/2023 1:06 PM [facility] Anion Gap 10 6 - 16 mmol/L 10/26/2023 1:06 PM [facility] Calcium 10.5(H) 8.4 - 10.4 mg/dL 10/26/2023 1:06 PM [facility] Comment:Low serum albumin ma y artificially lower total calcium, without impacting ionized calcium concentrations. If patient has or is at risk for hypoalbuminemia, consider ionized serum calcium to more accurately assess calcium status. BUN 36(H) 7 - 26 mg/dL 10/26/2023 1:06 PM [facility] Creatinine 1.18(H) 0.55 - 1.02 mg/dL 10/26/2023 1:06 PM [facility] Alkaline Phosphatase 38(L) 40 - 150 U/L 10/26/2023 1:06 PM [facility] AST (SGOT) 22 10 - 40 U/L 10/26/2023 1:06 PM [facility] ALT (SGPT) 16 <=55 U/L 10/26/2023 1:06 PM [facility] Bilirubin, Total 0.4 0.2 - 1.2 mg/dL 10/26/2023 1:06 PM [facility] Protein, Total 7.0 6.4 - 8.3 g/dL 10/26/2023 1:06 PM [facility] Albumin 3.7 3.5 - 5.0 g/dL 10/26/2023 1:06 PM [facility] Glucose 105(H) 70 - 100 mg/dL 10/26/2023 1:06 PM [facility] Comment:The given reference range is for the fasting state. Non-fasting reference range for glucose is 70 - 180 mg/dL. GFR, Estimated 50(L) >60 mL/min/1. 73m2 10/26/2023 1:06 PM [facility] Hours Fasting 2.0 8 - 12 Hours 10/26/2023 1:06 PM [facility] Blood Venipuncture / Unknown 10/26/2023 11:04 AM T 10/26/2023 11:04 AM [facility] - 10/26/2023 1:06 PM [facility] The National Kidney Disease Education Program suggests measuring Cystatin C in patients with eGFRcrea of 45 to 59 ml/min/1.73^2 who do not have other markers of kidney damage (i.e. elevated urine Albumin/Creatinine Ratio or a prior Cystatin C confirming the presence of chronic kidney disease). Freeman W Desilet DO [facility] [address] [place] [address] documented in this encounter Visit Diagnoses Diagnosis High risk medication use Encounter for long-term (current) use of other medications documented in this encounter Care Teams Corporate Human Resources Manager Relationship Specialty Start Date End Date [place] Esqueda MD [address] [place] [address] PCP - General Family Practice 06/23/23 documented as of this encounter
--- OUTSIDE RECORDS SUMMARY | 2024-01-12 16:53 | XMS_ITS | Encounter Summary ---
Author Organization [facility] Address [address] [place] [address] Care Team Providers Care Seed Packer Name Role Phone [place] Esqueda MD Primary Care Provider [phone] Reason for Visit * Reason Comments BLOOD PRESSURE, HIGH Encounter Details Date Type Department Care Team (Late st Contact Info) Description 11/02/2023 Telephone [facility] Cardiology [address] [place] [address] Wilfredo Howell III, MD [address] [place], [place] [phone] BLOOD PRESSURE, HIGH Social History Tobacco Use [...] follow up as scheduled 11/07. * Yanci Adknis RN - 11/03/2023 9:27 AM CDT Images from the original note were not included. Wilfredo Howell III, MD to Me 11/03/23 7:46 AM Please use the [place] slot. November 02, 2023 Me to Wilfredo Howell III, MD KB 11/02/23 11:[address] Howell, see update from [place]. I can get her in to be seen in [place] next week and she is in agreement [...] 01/24/2024 9:00 AM CDT Appointment [facility] [address] Electrophysiology [address] [place] [address] 03/14/2024 2:00 PM WORM PICKER Appointment [facility] Neurosurgery/Ortho Spine [address] [facility] [place] [address] Brandon Kessler MD [address] [place] [address] 03/20/2024 11:15 AM WORM PICKER Appointment Rheumatology at [facility] [place] [address] [address] [address] [place] [address] Desilet, Freeman W, DO [address] [place] [address] documented as of this encounter Visit Diagnoses Not on filedocumented in this encounter Care Teams Seed Packer Relationship Specialty Start Date End Date [place] Esqueda MD [address] [place] [address] PCP - General Family Practice 06/23/23 documented as of this encounter
--- OUTSIDE RECORDS SUMMARY | 2024-01-12 16:53 | XMS_ITS | Encounter Summary ---
Author Organization [employer] Address [address] [place] [address] Care Team Providers Care Production Lapping Machine Operator Name Role Phone [place] Esqueda MD Primary Care Provider [phone] Reason for Visit * Reason Comments Lupus Rash is a lot better , has been going to the pool for water walking and has dried it up. Encounter Details Date Type Department Care Team (Late st Contact Info) Description 10/04/2023 10:00 AM CDT Office Visit [facility] [address] [place] [address] Eva Long MD [address] [place] [address] Lupus (HRC) (Primary Dx); Hair loss [...] months of regular use before we can coremaker experimental your response to this medication. - You [...] of tinea corporis. Today: Reports that the shirt bander increased her CellCept to 1 g twice [...] and Family History: Reviewed and updated in [facility] Social History: She lives in [place] Medications: The patient has a current medication [...] needed per patient preference. Eva Long MD [facility] Dermatology documented in this encounter Plan of Treatment Upcoming Encounters Date Type Department Care Team (Late st Contact Info) Description 01/24/2024 9:00 AM CDT Appointment [facility] [address] Electrophysiology [address] [place] [phone] 03/14/2024 2:00 PM LORRY WEIGHER Appointment [facility] Neurosurgery/Ortho Spine [address] [facility] [place], [place] [phone] Brandon Kessler MD [address] [place] [id number] 03/20/2024 11:15 AM LORRY WEIGHER Appointment Rheumatology at [facility] [place] [address] [address] [address] [place], [place] [address] Desilet, Freeman W, DO [address] [place] [address] documented as of this encounter Visit Diagnoses Diagnosis Lupus (HRC)- Primary Systemic lupus erythematosus Hair loss Alopecia, unspecified documented in this encounter Care Teams Production Lapping Machine Operator Relationship Specialty Start Date End Date [place] Esqueda MD [address] [place] [address] PCP - General Family Practice 06/23/23 documented as of this encounter
--- OUTSIDE RECORDS SUMMARY | 2024-01-12 16:53 | XMS_ITS | Encounter Summary ---
Author Organization [facility] Address [address] [place] [address] Care Team Providers Care Point Of Sale Associate Name Role Phone [place] Esqueda MD Primary Care Provider [phone] Reason for Visit * Reason Comments Follow-up Encounter Details Date Type Department Care Team (Late st Contact Info) Description 10/13/2023 3:30 PM CDT [facility] [address] Cardiology [address] [place] [address] Wilfredo Howell III, MD [address] [place], [place] [address] Hypertension, unspecified type (HRC) (Primary Dx); Tobacco [...] every week. Take 30 minutes before first [id number]. Avoid lying down for 30 minutes. 12 [...] 5' 5 (165.1 cm) Wt 126 lb (61035 g) BMI 20.97 kg/m?? Estimated body mass index is 20.97 kg/m?? as calculated from the following: Height as of this encounter: 5' 5 (165.1 cm). Weight as of this encounter: 126 lb (98318 g). GEN- patient awake alert and conversant [...] medical records, cardiac tests, and time spent [id number] with patient. documented in this encounter Plan of Treatment Upcoming Encounters Date Type Department Care Team (Late st Contact Info) Description 01/24/2024 9:00 AM CDT Appointment [facility] [place] [address] Electrophysiology [address] [place] [address] 03/14/2024 2:00 PM DEVIL TENDER Appointment [facility] Neurosurgery/Ortho Spine [address] [place] [address] Brandon Kessler MD [address] [place] [address] 03/20/2024 11:15 AM DEVIL TENDER Appointment Rheumatology at [facility] [address] [address] Desilet, Freeman W, DO [address] [place], [place] [phone] documented as of this encounter Visit Diagnoses Diagnosis Hypertension, unspecified type (HRC)- Primary Tobacco use disorder (HRC) Tobacco use disorder PAD (peripheral artery disease) (HRC) Unspecified disorders of arteries and arterioles Mixed hyperlipidemia (HRC) Mixed hyperlipidemia documented in this encounter Care Teams Point Of Sale Associate Relationship Specialty Start Date End Date [place] Esqueda MD [address] [place] [address] PCP - General Family Practice 06/23/23 documented as of this encounter
--- OUTSIDE RECORDS SUMMARY | 2024-01-12 16:53 | XMS_ITS | Clinical Summary ---
Author Organization [facility] Address [place], [place] [address] Care Team Providers Care Potato Chip Cooker Machine Name Role Phone Theresa Vázquez PhD, Unavailable [phone] Abhinav Miranda MD Unavailable [facility], [facility] Unavailable [phone] Rambo Cordova MD Unavailable [phone] Abhinav Miranda MD Unavailable Dalton Esqueda MD [...] had adverse reactions previously Hydroxychloroquine Anxiety 08/23/2011 Zgjbtnl-Vfm-Btd Reductase Inhibitors Myalgia 04/01/2015 Sulfasalazine Rash 05/17/2019 Tetracycline Vomiting,GI Upset 07/11/2006 Medications Medication Sig Dispensed Refills Start Date End Date Status aspirin enteric coated 81 mg tablet Take 1 tablet by mouth every 24 hours. 0 2 Suspended meloxicam 15 mg tabletIndications: Sjogren's syndrome, with unspecified organ involvement (HC) TAKE 1 TABLET(15 MG) BY MOUTH EVERY DAY 90 Tablet 2 Suspended Additional Information predniSONE (DELTASONE) 10 mg tablet Take 10 mg by mouth once daily with a meal. 2 Suspended medication order composerIndication s:Sjogren's syndrome, with unspecified organ involvement (HC),Lupus (HC),Connective tissue disease (HC) Seeking Health MVI one daily, Mg Oxide 400 mg three times a day, HCL 2 per meal, Super-C complex daily, Liquid IV one daily, [employer]s [employer] digestive enzymes one with meals, Quercitin 500 mg twice a day 0 2 Suspended mycophenolate (CellCept) 500 mg tablet one twice a day 0 2 Suspended ezetimibe (ZETIA) 10 mg tabletIndications: Hyperlipidemia, unspecified hyperlipidemia type Take 1 Tablet (10 mg) by mouth once daily. 90 Tablet 3 3 12/28/19 24 Discontinued alirocumab (Praluent Pen) 75 mg/mL pnijIndications:Hy perlipidemia, unspecified hyperlipidemia type Inject 75 mg subcutaneous every 2 weeks. 6 mL 3 3 12/28/19 24 Discontinued medication order composerIndication s:Sjogren's syndrome, with unspecified organ involvement (HC) naltrexone 5.5 mg caps, one cap qhs 100 Capsule 3 4 Suspended Additional Information acetaminophen SR (TYLENOL ARTHRITIS) 650 mg Extended-Release tablet Take 650 mg by mouth every 8 hours if needed. Suspended carvediloL (COREG) 3.125 mg tablet Take 6.25 mg by mouth two times daily. 4 Suspended alendronate (FOSAMAX) 70 mg tablet Take 70 mg by mouth once weekly. 4 11/13/19 25 Suspended hydroxychloroquine (PLAQUENIL) 200 mg tablet Take 200 mg by mouth once daily. 4 Suspended omeprazole (PRILOSEC) 40 mg Delayed-Release capsule Take 40 mg by mouth. 3 Suspended spironolactone (ALDACTONE) 25 mg tablet Take 25 mg by mouth once daily. 4 Suspended losartan potassium (COZAAR ORAL) Take 100 mg by mouth once daily. Suspended LORazepam (ATIVAN) 0.5 mg tab Take 0.5 mg by mouth every 6 hours if needed. Suspended ondansetron HCl (ZOFRAN ORAL) Take by mouth. Suspend ed tacrolimus (PROTOPIC) 0.1 % ointment Apply 0.14 Tubes topically to affected area(s) two times daily. Suspended ezetimibe (ZETIA) 10 mg tabletIndications: Hyperlipidemia, unspecified hyperlipidemia type Take 1 Tablet (10 mg) by mouth once daily. 90 Tablet 4 Suspended Additional Information alirocumab (Praluent Pen) 75 mg/mL pnijIndications:Hy perlipidemia, unspecified hyperlipidemia type Inject 75 mg subcutaneous every 2 weeks. 6 mL 4 Suspended Additional Information Active Problems Problem Noted Date Diagnosed Date Dizziness 11/15/2021 Elevated troponin 11/15/2021 Brain aneurysm 11/15/2021 Protein-calorie malnutrition 06/25/2021 Tubular adenoma 10/02/2020 Overview (10/22/2020): Repeat colonoscopy in 5 years Bilateral asymmetric sensorineural hearing loss 07/02/2020 Other specified postprocedural states 06/22/2019 Medical marijuana use 07/24/2018 Overview (07/24/2018): using oils-both medical marijuana and CBD Adverse effect of narcotic 07/24/2018 Overview (07/24/2018): see hospitalization 02/2017 Fentanyl Age-related osteoporosis wit hout current pathological fracture 03/28/2018 Obstructive sleep apnea 03/23/2018 Hypothyroidism 06/30/2017 Stenosis of left carotid artery 03/01/2017 Controlled substance agreement with [facility] 12/21/19 17 Chronic SI joint pain 12/20/2016 Tinea corporis 11/01/2016 Onychomycosis of toenail 11/01/2016 Sjogren's syndrome 10/04/2016 Brain aneurysm 08/28/2016 Frequent headaches 08/28/2016 Deafness in left ear 11/20/2015 Left-sided tinnitus 11/20/2015 Subacute cutaneous lupus erythematosus 5 Fibromyalgia 03/31/2015 Midline low back pain with sciatica 03/31/2015 Undifferentiated connective tissue disease 03/09 Generalized anxiety disorder 06/20/2014 Hypertension 08/23/2011 Carotid stenosis, right 08/17/2011 Overview (08/26/2011): 08/26/11: Right carotid endarterectomy JUJU positive 07/21/2011 Overview (07/21/2011): followed by rheumatology, plaquenil Adjustment disorder with depressed mood 04/09/20 07 Other and unspecified hyperlipidemia 07/11/2006 Overview (04/22/2016): does not tolerate statins: referral to cardiology [...] Encounters Date Type Department Care Team Description 01/12/2024 1:45 PM CDT - 01/12/2024 2:18 PM CDT Emergency [facility] [address] [place] [address] Discharge Disposition: Home Self Care 01/12/2024 1:16 PM CDT - Present Hospital Encounter [facility] [address] [place] [address] Mitchel Marmolejo MBBS Arrived 01/12/2024 1:03 PM CDT Anesthesia Event [facility] [address] [place] [address] Armida Juarez MD 01/12/2024 Orders Only [facility] [address] [place] [phone] Bonita Mcdaniels PA <No scans attached> 01/12/2024 Travel 01/11/2024 Telephone [facility] [address] [place] [phone] Mitchel Marmolejo MBBS Medication information 12/28/2023 Refill [facility] [address] [place] [phone] Eugene Araya MD Refill Request (Ezetimibe, Praluent Pen) 12/07/2023 11:00 AM CDT Office Visit [facility] [address] [place] [phone] Mitchel Marmolejo MBBS Follow Up (carotid stenosis) 12/07/2023 7:58 AM CDT - 12/07/2023 11:59 PM CDT Hospital Encounter [facility] [address] [place] [address] Mitchel Marmolejo MBBS Iliac artery stenosis, bilateral (HC); Carotid stenosis, bilateral 12/07/2023 Travel 11/28/2023 Refill [facility] [address] [place] [phone] Eugene Araya MD Refill Request (Praluent Pen) 10/20/2023 1:20 PM CDT Telemedicine [facility] [address] [place] [phone] O'Grayson Johnson MD Follow Up; Telehealth (No vitals taken) 10/20/2023 Travel 10/17/2023 Refill [facility] [address] [place] [address] Carlo Ayala MD Refill Request (naltrexone) from [...] Sign Reading Time Taken Comments Blood Pressure 97/53 01/12/2024 1:56 PM CDT Pulse 63 01/12/2024 1:56 PM CDT Temperature 36.1 ??C (97 ??F) 01/12/2024 1:56 PM CDT Respiratory Rate 14 01/12/2024 1:56 PM CDT Oxygen Saturation 99% 01/12/2024 1:56 PM CDT Inhaled Oxygen Concentration - - Weight 59 kg (130 lb) 01/12/2024 1:56 PM CDT Height 167.6 cm (5' 6) 01/12/2024 1:56 PM CDT Body Mass Index 20.98 01/12/2024 1:56 PM CDT Plan of Treatment Upcoming Encounters Date Type Department Care Team (Late st Contact Info) Description 02/15/2024 9:15 AM CDT Appointment [facility] [address] [place], [place] [phone] 02/15/2024 10:00 AM CDT Appointment [facility] [address] [place] [address] 02/15/2024 10:45 AM CDT Office Visit [facility] [address] [place] [phone] Mitchel Marmolejo MBBS [address] [place] [address] Health Maintenance Due Date Last Done Comments Zoster (shingles) series for age 50+ (1 of 2) 2004 Medicare Wellness for age 65+ 2019 Pneumococcal series for age 65+ (2 of 2 - PCV) 2019 04/06/2002 Mammogram for age 45-75 03/07/2020 03/07/20 19, 02/24/2018, 04/12/2016, Additional history exists Tetanus booster 08/22/2021 08/23/2011, 04/06/2002 BMI (ht and wt on same day) for age 18+ 10/22/2023 10/21/2022, 06/10/2021, 05/06/2021, Additional history exists COVID-19 vaccine series ( season) 2023 Influenza for age 65+ 12/25/2023 01/17/2017 , [...] 04/28/2021, 03/06/2015 Medical Devices Implanted Type Area Windows Systems Engineer Device Identifier Shelf Expiration Date Model / Serial / Lot Sut [place] [id number] Bio [employer]ivelock - [id number] Implanted:Qty: 4 on 04/12/2007 at [facility] Right: Shoulder [employer] AR-[id number] L# / / [id number] Fiberchain 7mm10 Loops - [id number] Implanted:Qty: 4 on 04/12/2007 at [facility] Right: Shoulder [employer] AR-[id number]# / / Patch Vasc 0.8x8cm Biological Peripatch - [id number] Implanted:Qty: 1 on 08/26/2011 by Brain Nolasco MD at [facility] Right: Carotid Artery [employer] 08/25/2013 0.8P8# / / [id number] Graft Vasc 0.3x3in Hemashield Stra Fabric Knitted Dbl - [id number] Implanted:Qty: 1 on 03/01/2017 by Brain Quiroga MD at [facility] Left: Carotid Artery [employer] 06/22/2021 [id number]# / / [id number] Procedures The patient is currently admitted. The information in this section might not be complete until the patient is discharged. Procedure Name Priority Date/Time Associated Diagnosis Comments [...] intolerance ANTI HCV Today 04/28/2021 10:51 AM INDUSTRIAL ROBOTICS MECHANIC Leukopenia, unspecified type COLONOSCOPY 10/02/2020 8:44 AM CDT XR DXA BONE DENSITY 2 SITES AXIAL Routine 02/22/2020 1:20 PM CDT Chronic midline low back pain with right-sided sciatica Fibromyalgia Mixed connective tissue disease (HC) Sjogren's syndrome with myopathy (HC) XR MAMMO BILAT SCREENING Routine 03/07/2019 3:23 PM INDUSTRIAL ROBOTICS MECHANIC Visit for screening mammogram from Last 3 Months or Most Recently Relevant to Health Maintenance Results * US CAROTID DUPLEX BILATERAL (12/07/2023 10:06 AM CDT) Anatomical Region Laterality Modality CAROTID, NECK Ultrasound 12/07/2023 8:22 AM CDT Narrative 12/07/2023 10:27 AM CDT VASCULAR ULTRASOUND REPORT NICOLLE COVINGTON Accession#: ?? [id number] : ?1955 Study Date: ?? 12/07/2023 8:22:07 AM Age: ?68 years ?? Tech: ? JAG Gender: F ?Referring MD: MITCHEL MARMOLEJO Site: [facility] Study performed: ?Carotid Indication for Study: [...] Accreditation Commission (IAC/Vascular), www.intersocietal.org/vascular Report generated by [employer]. ??Final ?? Procedure Note Mitchel Marmolejo MBBS - 12/07/2023 VASCULAR ULTRASOUND REPORT NICOLLE COVINGTON : 1955 Study Date: 12/07/2023 8:22:07 AM Age: 68 years Tech: JAG Gender: F Referring MD: MITCHEL MARMOLEJO Site: [facility] Study performed: Carotid Indication for Study: [...] theIntersocietal Accreditation Commission (IAC/Vascular),www.intersocietal.org/vascular Report generated by [employer]. Final Mitchel HOOKS US * US ANKLE BRACHIAL INDEX BILATERAL (12/07/2023 10:06 AM CDT) Anatomical Region Laterality Modality ANKLES, ANKLE L, ANKLE R Ultraso und 12/07/2023 8:16 AM CDT Narrative 12/07/2023 10:22 AM CDT VASCULAR ULTRASOUND REPORT NICOLLE COVINGTON Accession#: ?? [id number] : ?1955 Study Date: ?? 12/07/2023 8:16:00 AM Age: ?68 years ?? Tech: ? JAG Gender: F ?Referring MD: MITCHEL MARMOLEJO Site: [facility] V[facility] Study performed: ?Lower extremity resting ISMAEL, (bilateral). Indication for study: Follow-up known PAD TECHNIQUE: Lower/upper extremity arteries were examined per exam protocol by duplex ultrasound, color-flow and spectral Doppler. Peak systolic velocities (PSV), Doppler waveform quality, velocity ratios and vessel size in cm, were documented at protocol specific sites. Physiologic data including segmental pressures, ankle/brachial index (ISMEAL), digit PPG recordings, laser Doppler flowmetry, transcutaneous [...] ? Index +-----+ +--------+ +-----+ 0.97 ?163 ?TOUR BUS DRIVER/GUIDE ?89 ? 0.53 +-----+ +--------+ +-----+ 0.94 ?158 ?DPA ?79 ? 0.47 +-----+ +--------+ +-----+ 0.60 ?101 ? Digit 1 ?54 ? 0.32 +-----+ +--------+ +-----+ NEVA Araujo. Electronically signed on 12/07/2023 10:22:46 AM This study was performed and interpreted by a service accredited by the Intersocietal Accreditation Commission (IAC/Vascular), www.intersocietal.org/vascular Report generated by [employer]. ??Final ?? Procedure Note Mitchel Marmolejo MBBS - 12/07/2023 VASCULAR ULTRASOUND REPORT NICOLLE COVINGTON : 1955 Study Date: 12/07/2023 8:16:00 AM Age: 68 years Tech: KIERA Gender: F Referring MD: MITCHEL MARMOLEJO Site: [facility] Study performed: Lower extremity resting ISMAEL, [...] 168 Index +-----+ +--------+ +-----+ 0.97 163 TOUR BUS DRIVER/GUIDE 89 0.53 +-----+ +--------+ +-----+ 0.94 158 DPA 79 0.47 +-----+ +--------+ +-----+ 0.60 101 Digit 1 54 0.32 +-----+ +--------+ +-----+ NEVA Araujo. Electronically signed on 12/07/2023 10:22:46 AM This study was performed and interpreted by a service accredited by theIntersocietal Accreditation Commission (IAC/Vascular),www.intersocietal.org/vascular Report generated by [employer]. Final Mitchel HOOKS US * US AORTA ILIACS IVC WITH DUPLEX (12/07/2023 10:06 AM CDT) Anatomical Region Laterality Modality AORTA, Abdomen Ultrasound 12/07/2023 9:07 AM CDT Narrative 12/07/2023 10:28 AM CDT VASCULAR ULTRASOUND REPORT NICOLLE COVINGTON Accession#: ?? [id number] : ?1955 Study Date: ?? 12/07/2023 9:07:34 AM Age: ?68 years ?? Tech: ? JAG Gender: F ?Referring MD: MITCHEL MARMOLEJO Site: [facility] Vascular [facility] Study performed: ?Aorta, Iliac, (bilateral) Indication for [...] Accreditation Commission (IAC/Vascular), www.intersocietal.org/vascular Report generated by [employer]. ??Final ?? Procedure Note Mitchel Marmolejo MBBS - 12/07/2023 VASCULAR ULTRASOUND REPORT NICOLLE COVINGTON : 1955 Study Date: 12/07/2023 9:07:34 AM Age: 68 years Tech: JAG Gender: F Referring MD: MITCHEL MARMOLEJO Site: [facility] Study performed: Aorta, Iliac, (bilateral) Indication [...] theIntersocietal Accreditation Commission (IAC/Vascular),www.intersocietal.org/vascular Report generated by [employer]. Final Mitchel HOOKS * LIPID PANEL W REFLEX MEASURED LDL (01/14/2022 7:58 AM CDT) CHOLESTEROL,TOTAL 159 100 - 199 mg/dL 01/14/2022 9:36 AM T [facility] TRIGLYCERIDES 130 <150 mg/dL 01/14/2022 9:36 AM T [facility] HDL CHOLESTEROL 75 >40 mg/dL 9:36 AM T [facility] NON-HDL CHOLESTEROL 84 <145 mg/dl 01/14/2022 9:36 AM CDT [facility] CHOL/HDL RATIO 2.12 <4.50 01/14/2022 9:36 AM CDT [facility] LDL CHOLESTEROL 58 <=130 mg/dL 01/14/2022 9:36 AM CDT [facility] VLDL CHOLESTEROL 26 <=30 mg/dL 01/14/2022 9:36 AM CDT [facility] PROVIDER ORDERED STATUS FASTING 01/14/2022 9:36 AM CDT [facility] Blood BLOOD SPECIMEN / Unknown Venipuncture / Unknown 01/14/2022 7:58 AM CDT 01/14/2022 8:18 AM CDT Yu Bradley NP CHEMISTRY [facility] [address] [place] [address] * ANTI HCV (04/28/2021 10:51 AM INDUSTRIAL ROBOTICS MECHANIC) HEPATITIS C ANTIBODY Non-React epi Non-React epi 04/28/2021 4:25 PM INDUSTRIAL ROBOTICS MECHANIC [facility] Comment:Antibodies to HCV no t detected; does not exclude the possibility of exposure to HCV. Blood BLOOD SPECIMEN / Unknown Venipuncture / Unknown 04/28/2021 10:51 AM INDUSTRIAL ROBOTICS MECHANIC 04/28/2021 10:51 AM INDUSTRIAL ROBOTICS MECHANIC Giselle Sheffield MD SEND OUTS [facility] [address] [place] [address], [place] * COLONOSCOPY (10/02/2020 8:44 AM CDT) 10/02/2020 8:44 AM CDT Narrative Transcriptions Daysi George, - 10/06/2020 9:14 PM CDT Patient Name: Nicolle Covington Procedure Date: 10/02/2020 Gender: Female Date of : 1955 Admit Type: Ambulatory Procedure: Colonoscopy Proceduralist: Daysi George MD [facility] Indications/Pre-Op Diagnosis: High risk colon [...] Bone Den sitometry Narrative 02/25/2020 10:39 AM INDUSTRIAL ROBOTICS MECHANIC Please see scanned document for results of this study. Mauricio Muñoz MD DEXA * XR MAMMO BILAT SCREENING (03/07/2019 3:23 PM INDUSTRIAL ROBOTICS MECHANIC) Anatomical Region Laterality Modality BREASTS, Breast Left, Breast Right Bilateral Mammography Impressions 03/08/2019 6:55 AM INDUSTRIAL ROBOTICS MECHANIC ??There is no radiographic evidence for malignancy. ??Recommend annual mammograms. A lay language report of this examination will be provided to the patient. MAMMOGRAM ASSESSMENT: ??ACR 1 Negative Narrative 03/08/2019 6:55 AM INDUSTRIAL ROBOTICS MECHANIC XR MAMMO BILAT SCREENING [[id number]] CLINICAL HISTORY: ??This is an asymptomatic 63 [...] Documents on File Type Date Recorded Patient Back Up Worker Expl anation Healthcare Directive 03/24/2023 023 [...] 5:42 AM 03/01/2017 11:49 AM Care Teams Potato Chip Cooker Machine Relationship Specialty Start Date End Date Dalton Esqueda MD [address] [place] [address] PCP - General Family Practice 10/15/20 Theresa Vázquez, PhD, LP Psychologist Psychology 06/23/11 Abhinav Miranda MD Dermatology Dermatology 08/07/15 [facility] 09/14/16 Rambo Cordova MD [address] [facility] [address] [place] [address] Rheumatology Rheumatology 04/07/17 Abhinav Miranda MD Dermatology 07/11/17
--- OUTSIDE RECORDS SUMMARY | 2024-01-12 16:53 | XMS_ITS | Encounter Summary ---
Author Organization [facility] Address [address] [place] [address] Care Team Providers Care Gis Programmer Name Role Phone Dalton Esqueda MD Primary Care Provider [phone] Reason for Visit * Reason Comments Hypertension Encounter Details Date Type Department Care Team (Late st Contact Info) Description 10/24/2023 [facility]phone [facility] [employer] [place], [place] [id number] Wilfredo Howell III, MD [address] [place] [address] Hypertension Social History Tobacco Use [...] 01/24/2024 9:00 AM CDT Appointment [facility] [address] [facility] [address] [place] [phone] 03/14/2024 2:00 PM NEWS CAMERA OPERATOR Appointment [facility] Neurosurgery/Ortho Spine [address] [place] [address]. [place] [address] Brandon Kessler MD [address] [place] [address] 03/20/2024 11:15 AM NEWS CAMERA OPERATOR Appointment Rheumatology at [facility] [place] [address] [address] [address] [place] [address] Desilet, Freeman W, DO [address] [place] [address] documented as of this encounter Visit Diagnoses Not on filedocumented in this encounter Care Teams Gis Programmer Relationship Specialty Start Date End Date Dalton Esqueda MD [address] [place] [address] PCP - General Family Practice 06/23/23 documented as of this encounter
[2024-01-12 17:02] LABS: Basophils Absolute Auto 0.01 K/uL (0.00-0.30); Basophils Percent Auto 0.2 % (0.0-3.0); Hematocrit 38.8 % (33.0-51.0); Hemoglobin* 12.5 gm/dL (12.0-16.0); Immature Granulocytes Abs Auto 0.02 K/uL (0.00-0.30); Immature Granulocytes Pct Auto 0.3 %; Lymphocytes Percent Auto 9.2 % (20-44); Mean Corpuscular HGB Conc 32 gm/dL (32-36); Mean Corpuscular Hemoglobin 30 pg (26-34); Mean Corpuscular Volume 93 fL (80-100); Monocytes Percent Auto 4.5 % (0.0-11.0); Neutrophils Percent Auto 85.8 % (42.0-72.0); Platelet Count* 253 K/uL (140-440); Red Blood Count 4.16 m/uL (4.00-5.20)
[2024-01-12 17:05] LABS: Slide Review Reflex No
[2024-01-12] MEDS: ONDANSETRON ODT 4 MG TAB PO (17:05)
--- NOTE | 2024-01-12 17:15 | ED_ITS ---
HPI - Nausea/Vomiting/Diarrhea General Chief complaint: Nausea/Vomiting Stated complaint: vomiting, diarrhea Time Seen by Provider: 01/12/24 15:50 History of Present Illness HPI Narrative: This 68-year-old female comes in reporting diarrhea for 3 or 4 weeks and now today nausea with repeated vomiting. She states that she was started on some new medications related to blood pressure and heart control. This medicine may be explaining her symptoms. She arrives here with normal vital signs. Related Data Home Medications ?Medication ?Instructions ?Recorded ?Confirmed CBD Oil sublingual 11/17/21 01/04/24 aspirin 81 mg chewable tablet 81 mg PO QDAY 11/17/21 01/04/24 (Aspirin Childrens) magnesium oxide 400 mg (241.3 mg 400 mg PO QDAY 11/17/21 01/04/24 magnesium) tablet alirocumab 75 mg/mL subcutaneous 75 mg subcut Q2W 03/09/22 01/04/24 pen injector (Praluent Pen) hydrocortisone 2.5 % topical cream 1 applic topical QDAY PRN 03/09/22 01/04/24 ezetimibe 10 mg tablet 10 mg PO QDAY 12/14/22 01/04/24 Electrolytes PO PRN 01/10/23 01/04/24 omeprazole 40 mg capsule,delayed 40 mg PO BID 01/19/23 01/04/24 release alendronate 70 mg tablet (Fosamax) 70 mg PO QWEEK 07/28/23 01/04/24 hydroxychloroquine 200 mg tablet 200 mg PO QDAY 07/28/23 01/04/24 (Plaquenil) naltrexone 1.5 mg capsule 5.5 mg PO DAILY 07/28/23 01/04/24 mycophenolate mofetil 500 mg tablet 1,000 mg PO BID 09/30/23 01/04/24 prednisone 2.5 mg tablet 7.5 mg PO QDAY 09/30/23 01/04/24 spironolactone 25 mg tablet 25 mg PO DAILY 09/30/23 11/17/23 acetaminophen 650 mg 1,300 mg PO Q12H PRN 11/17/23 01/04/24 tablet,extended release (Tylenol Arthritis Pain) ergocalciferol (vitamin D2) 1,000 2,000 unit PO QDAY 07/25/24 09/11/24 unit capsule losartan 100 mg tablet 100 mg PO DAILY 11/17/23 01/04/24 Medical Cannabis PO 01/04/24 carvedilol 12.5 mg tablet 12.5 mg PO BID 01/04/24 01/04/24 Previous Rx's ?Medication ?Instructions ?Recorded ondansetron HCl 4 mg tablet 4 mg PO Q6H #10 tabs 03/11/23 meloxicam 15 mg tablet 15 mg PO QDAY #90 tabs 10/03/23 amoxicillin 500 mg capsule 2,000 mg (4 x 500 mg) PO ONCE #16 11/17/23 caps diphenoxylate-atropine 2.5 1 tab PO DAILY #10 tabs 01/12/24 mg-0.025 mg tablet (Lomotil) Allergies Allergy/AdvReac Type Severity Reaction Status Date / Time atenolol Allergy Severe Verified 01/04/24 11:54 belimumab Allergy Severe Rash Verified 01/04/24 11:54 fentanyl Allergy Severe Cardiac Verified 01/04/24 11:54 Arrest infliximab [From Remicade] Allergy Severe Anaphylaxis Verified 01/04/24 11:54 alendronate sodium Allergy Mild stomach Verified 01/04/24 11:54 pain amitriptyline Allergy Mild Unknown Verified 01/04/24 11:54 buprenorphine Allergy Mild didn't help Verified 01/04/24 11:54 gabapentin Allergy Mild stomach Verified 01/04/24 11:54 issues amoxicillin Allergy Unknown Unknown Verified 01/04/24 11:54 diltiazem Allergy Unknown Unknown Verified 01/04/24 11:54 duloxetine Allergy Unknown Unknown Verified 01/04/24 11:54 erythromycin base Allergy Unknown Unknown Verified 01/04/24 11:54 hydralazine Allergy Unknown Unknown Verified 01/04/24 11:54 hydrochlorothiazide Allergy Unknown unknown Verified 01/04/24 11:54 hydroxychloroquine Allergy Unknown Unknown Verified 01/04/24 11:54 Hilsvmh-SZI-ItI Reductase Allergy Unknown Unknown Verified 01/04/24 11:54 Inhibitor tetracycline Allergy Unknown Unknown Verified 01/04/24 11:54 venlafaxine Allergy Unknown Unknown Verified 01/04/24 11:54 bupropion [From Wellbutrin] AdvReac hazy Verified 01/04/24 11:54 clopidogrel [From Plavix] AdvReac Verified 01/04/24 11:54 Review of Systems Status of ROS: Reports: 10 or more systems reviewed and unremarkable except as noted in History and below Narrative: Constitutional: No fevers, no weight gain or loss. Eyes: No discharge. No vision changes. HENT: No congestion, no sore throat, no ear pain. Cardiovascular: No chest pain, no palpitations. Respiratory: No shortness of breath, no wheezes, no cough. Gastrointestinal: No abdominal pain. Nausea and vomiting with diarrhea as described above. Genitourinary: No dysuria, no hematuria. Musculoskeletal: Normal range of motion. Skin: No rashes, no pruritis. Neurological: No dizziness, weakness, sensory change, speech change. Endo/Heme/Allergies: No bruising or bleeding. No polydipsia. Pysch: no suicidality, no anxiety, no insomnia. All other systems reviewed and are negative. [facility] Medical History (Updated 01/12/24 @ 19:29 by Tyson Neil MD) History of pacemaker ?Z95.0 - Presence of cardiac pacemaker (ICD-10) COVID-19 ?U07.1 - COVID-19 (ICD-10) Health care directive on file ?Z78.9 - Other specified health status (ICD-10) COPD (chronic obstructive pulmonary disease) ?J44.9 - Chronic obstructive pulmonary disease, unspecified (ICD-10) Post herpetic neuralgia ?B02.29 - Other postherpetic nervous system involvement (ICD-10) Mixed hyperlipidemia ?E78.2 - Mixed hyperlipidemia (ICD-10) Primary hypertension ?I10 - Essential (primary) hypertension (ICD-10) Chronic sinus infection ?J32.9 - Chronic sinusitis, unspecified (ICD-10) DJD (degenerative joint disease), lumbosacral ?M47.817 - Spondylosis without myelopathy or radiculopathy, lumbosacral region (ICD-10) Sjogren's syndrome (2013) ?M35.00 - Sjogren syndrome, unspecified (ICD-10) Positive antinuclear antibody (07/21/11) ?R76.8 - Other specified abnormal immunological findings in serum (ICD-10) Peripheral vascular disease ?I73.9 - Peripheral vascular disease, unspecified (ICD-10) Osteoporosis ?M81.0 - Age-related osteoporosis without current pathological fracture (ICD- 10) Obstructive sleep apnea syndrome (03/23/18) ?G47.33 - Obstructive sleep apnea (adult) (pediatric) (ICD-10) Hypothyroidism (06/30/17) ?E03.9 - Hypothyroidism, unspecified (ICD-10) History of lichen planus ?Z87.2 - Personal history of diseases of the skin and subcutaneous tissue ( ICD-10) History of colonic polyps ?Z86.010 - Personal history of colonic polyps (ICD-10) History of basal cell carcinoma (BCC) ?Z85.828 - Personal history of other malignant neoplasm of skin (ICD-10) Generalized anxiety disorder (06/20/14) ?F41.1 - Generalized anxiety disorder (ICD-10) Fibromyalgia (2012) ?M79.7 - Fibromyalgia (ICD-10) Deafness in left ear (11/20/15) ?H91.92 - Unspecified hearing loss, left ear (ICD-10) Cerebral aneurysm (08/28/16) ?I67.1 - Cerebral aneurysm, nonruptured (ICD-10) Bilateral carotid artery stenosis ?I65.23 - Occlusion and stenosis of bilateral carotid arteries (ICD-10) Adjustment disorder with depressed mood (04/09/07) ?F43.21 - Adjustment disorder with depressed mood (ICD-10) Surgical History History of sinus surgery ?Z98.890 - Other specified postprocedural states (ICD-10) History of repair of right rotator cuff (2006) ?Z98.890 - Other specified postprocedural states (ICD-10) History of intravascular stent placement (05/2017) ?Z95.828 - Presence of other vascular implants and grafts (ICD-10) History of hysterectomy (1994) ?Z90.710 - Acquired absence of both cervix and uterus (ICD-10) History of section (1975) ?Z98.891 - History of uterine scar from previous surgery (ICD-10) History of cataract extraction ?Z98.49 - Cataract extraction status, unspecified eye (ICD-10) History of carotid endarterectomy (2009) ?Z98.890 - Other specified postprocedural states (ICD-10) Family History Sister Breast cancer Diabetes Mother Stroke Heart disease Father Prostate cancer Diabetes Daughter Diabetes Family/Other Breast cancer Social History (Updated 08/23/23 @ 11:53 by Janelle Blanton ~ RMA, RMA) Narrative: Medical marijuana use- onset 07/24/18 Single, no kids, retired [employer], smoker, no EtOH What is your current living situation?: I presently have a place to live In past 12 months, lack of transportation kept you from medical appts, meetings, work, or getting things needed for daily living: no In the past 12 mos, have been you worried that your food would run out before you had money to buy more?: never true In the past 12 mos, the food you bought just didn't last and you didn't have money to buy more?: never true Smoking Status: Current every day smoker How often do you have a drink containing alcohol: never AUDIT-C Alcohol total score: 0 Non-prescribed substance use: marijuana (any form) Non-prescribed substance use details: medical How often does anyone, including family, friends and others, physically hurt you : never How often does anyone, including family, friends and others, insult or talk down to you: rarely How often does anyone, including family, friends and others, threaten you with harm: never How often does anyone, including family, friends and others, scream or curse at you: never Little interest or pleasure in doing things: more than half the days Feeling down, depressed, or hopeless: not at all Exam Narrative: Exam Narrative: Constitutional: Well-developed, well-nourished, no acute distress. HEENT: Normocephalic, atraumatic. Neck: Normal range of motion. Nontender. Supple. Heart: Regular. No murmurs. Normal rate. Intact distal pulses. Lungs: Clear to auscultation. No chest discomfort. No wheezes, rhonchi, or rales. Abdomen: Normal bowel sounds. Nontender. No rebound tenderness. Genitalia: Deferred. Back: No midline tenderness. Normal range of motion. Extremities: Normal range of motion. No injury. Skin: Intact. No rash. Warm. No erythema or pallor. Neurologic: No altered sensation. No weakness. Alert and oriented. Psychiatric: No suicidality. No anxiety or depression. No insomnia. Nursing notes and vitals signs are reviewed. Const: Vital Signs, click to edit/add: Vital Signs - 24 hr 01/12/24 15:40 Temperature 98.4 F Pulse Rate [Right Pulse Oximeter] 64 Respiratory Rate 18 Blood Pressure [Ri ght Upper Arm] 128/70 Pulse Oximetry 97 Oxygen Delivery Me thod Room Air Course Vital Signs Vital signs: Initial Vital Signs Temperature 98.4 F 01/12/24 15:40 Temperature Source Temporal Artery Scan 01/12/24 15:40 Pulse Rate 64 01/12/24 15:40 Pulse Rhythm Regular 01/12/24 15:40 Pulse Strength 3+ Normal 01/12/24 15:40 Respiratory Rate 18 01/12/24 15:40 Blood Pressure 128/70 01/12/24 15:40 Blood Pressure Mean 89 01/12/24 15:40 Blood Pressure Position Sitting 01/12/24 15:40 Pulse Oximetry 97 01/12/24 15:40 Oxygen Delivery Method Room Air 01/12/24 15:40 Vital Signs Temperature 98.4 F 01/12/24 15:40 Pulse Rate 64 01/12/24 15:40 Respiratory Rate 18 01/12/24 15:40 Blood Pressure 128/70 01/12/24 15:40 Pulse Oximetry 97 01/12/24 15:40 Oxygen Delivery Method Room Air 01/12/24 15:40 Temperature 98.4 F 01/12/24 15:40 Pulse Rate 64 01/12/24 15:40 Respiratory Rate 18 01/12/24 15:40 Blood Pressure 128/70 01/12/24 15:40 Pulse Oximetry 97 01/12/24 15:40 Oxygen Delivery Method Room Air 01/12/24 15:40 Medications Administered Medications: Generic Name Dose Route Start Last Admin Trade Name Freq PRN Reason Stop Dose Admin Diphenoxylate HCl/Atropine 1 tab 01/12/24 18:28 01/12/24 19:11 Diphenoxylate-Atrop 2.5-0.025 Tablet PO 1 tab QID PRN Administration Discontinued Medications Generic Name Dose Route Start Last Admin Trade Name Freq PRN Reason Stop Dose Admin Sodium Chloride 1,000 mls @ 1,000 mls/hr 01/12/24 16:45 01/12/24 17:06 0.9 % Sodium Chloride 1000 Ml IV 01/12/24 17:44 Not Given .Q1H SUSAN Ondansetron HCl 4 mg 01/12/24 16:32 01/12/24 17:06 Ondansetron 2 Mg/Ml Inj IVP 01/12/24 16:33 Not Given ONCE ONE Ondansetron HCl 4 mg 01/12/24 16:49 01/12/24 17:05 Ondansetron Odt 4 Mg Tab PO 01/12/24 16:50 4 mg ONCE ONE Administration MDM - Nausea/Vomiting/Diarrhea MDM Narrative Medical decision making narrative: An attempt was made to in start an IV with this patient but she was very guarded about where a could be done and as the nurse was attempting to insert the IV she became anxious and moved around. There was 1 attempt that was unsuccessful and then this plan was discontinued. The patient did take oral liquids but continues to have frequent diarrhea. Labs are acquired and returned with reassuring findings except her creatinine now is at 2.1 and her potassium is at 5.8. The patient is on losartan 100 mg and has been on this that for the past 3 months. Her previous potassium levels were normal range. She also started carvedilol and feels like this medicine does not sit right with her. It does seem that her symptoms of diarrhea and today vomiting are related to medications. I advised her to hold both the losartan and carvedilol. She understands that her blood pressure will go up temporarily but this may help uncover what is causing her symptoms. She will need to follow-up with her regular doctor for ongoing management. She did receive a tablet of Lomotil here and a prescription for the same. I advised her to use Imodium also as needed and directed. Lab Data Labs: Lab Results 01/12/24 Range/Units 16:56 WBC 6.50 (4.50-11.00) K/uL RBC 4.16 (4.00-5.20) m/uL Hgb 12.5 (12.0-16.0) gm/dL Hct 38.8 (33.0-51.0) % MCV 93 (80-100) fL MCH 30 (26-34) pg MCHC 32 (32-36) gm/dL RDW Coeff of Terrell 13.0 (11.5-15.5) % Plt Count 253 (140-440) K/uL Neut % (Auto) 85.8 H (42.0-72.0) % Lymph % (Auto) 9.2 L (20-44) % [place] % (Auto) 4.5 (0.0-11.0) % Eos % (Auto) 0.0 (0.0-7.0) % Baso % (Auto) 0.2 (0.0-3.0) % Neut # (Auto) 5.60 (1.7-7.0) K/uL Lymph # (Auto) 0.60 L (0.90-2.90) K/uL [place] # (Auto) 0.30 (0.00-0.90) K/UL Eos # (Auto) 0.00 (0.00-0.50) K/uL Baso # (Auto) 0.01 (0.00-0.30) K/uL Abs Immat Gran (auto) 0.02 (0.00-0.30) K/uL Imm/Tot Granulo (auto) 0.3 % Sodium 136 (135-149) mmol/L Potassium 5.8 H (3.6-5.1) mmol/L Chloride 99 (96-114) mmol/L Carbon Dioxide 22 (20-32) mmol/L Anion Gap 15 (7-15) mEq/L BUN 44 H (7-30) mg/dL Creatinine 2.1 H (0.5-1.5) mg/dL Estimated Creat Clear 22.49 Estimated GFR 25 ml/min Glucose 107 (60-115) mg/dL Calcium 10.7 H (8.4-10.6) mg/dL Discharge Plan Discharge Clinical Impression: Diarrhea Patient Disposition: Home, Self-Care Condition: Stable Additional Instructions: Take foods and liquids as tolerated. Hold both losartan and carvedilol and follow-up with primary physician for ongoing management of blood pressure. Take Imodium as needed and directed for diarrhea and use Lomotil also if diarrhea is persistent. Prescriptions: New diphenoxylate-atropine [Lomotil] 2.5-0.025 mg tablet 1 tab PO DAILY Qty: 10 0RF No Action Praluent Pen 75 mg/mL pen injector 75 mg subcut Q2W Patient Comments: INJECT 75MG SUBCUTANEOUSLY EVERY 2 WEEKS hydrocortisone 2.5 % cream 1 applic topical QDAY PRN Electrolytes PO PRN omeprazole 40 mg capsule,delayed release(DR/EC) 40 mg PO BID alendronate [Fosamax] 70 mg tablet 70 mg PO QWEEK naltrexone 1.5 mg capsule 5.5 mg PO DAILY hydroxychloroquine [Plaquenil] 200 mg tablet 200 mg PO QDAY prednisone 2.5 mg tablet 7.5 mg PO QDAY spironolactone 25 mg tablet 25 mg PO DAILY losartan 100 mg tablet 100 mg PO DAILY acetaminophen [Tylenol Arthritis Pain] 650 mg tablet extended release 1,300 mg PO Q12H PRN ergocalciferol (vitamin D2) 1,000 unit capsule 2,000 unit PO QDAY amoxicillin 500 mg capsule 2,000 mg PO ONCE Qty: 16 0RF carvedilol 12.5 mg tablet 12.5 mg PO BID Medical Cannabis PO magnesium oxide 400 mg (241.3 mg magnesium) tablet 400 mg PO QDAY CBD Oil sublingual aspirin [Aspirin Childrens] 81 mg tablet,chewable 81 mg PO QDAY mycophenolate mofetil 500 mg tablet 1,000 mg PO BID Patient Comments: TAKE ONE TABLET BY MOUTH TWICE A DAY ezetimibe 10 mg tablet 10 mg PO QDAY Patient Comments: TAKE ONE TABLET BY MOUTH EVERY DAY ondansetron HCl 4 mg tablet 4 mg PO Q6H Qty: 10 0RF meloxicam 15 mg tablet 15 mg PO QDAY Qty: 90 0RF Follow Up/Referrals: Dalton Esqueda MD [Primary Care Provider] - Stand Alone Forms: [facility] Info Instructions
[2024-01-12 17:25] LABS: Chloride* 99 mmol/L (96-114)
[2024-01-12 17:26] LABS: Potassium* 5.8 mmol/L (3.6-5.1); Sodium* 136 mmol/L (135-149)
[2024-01-12 17:28] LABS: Creatinine* 2.1 mg/dL (0.5-1.5); Est. Creatinine Clearance* 22.49; Estimated Glomerular Filt Rate 25 ml/min
[2024-01-12 17:29] LABS: Anion Gap 15 mEq/L (7-15); Blood Urea Nitrogen* 44 mg/dL (7-30); Calcium* 10.7 mg/dL (8.4-10.6); Carbon Dioxide* 22 mmol/L (20-32); Glucose* 107 mg/dL (60-115)
[2024-01-12] MEDS: DIPHENOXYLATE-ATROP 2.5-0.025 TABLET 1 TAB PO (19:11)
== END 2024-01-12 19:44 | disposition home or self-care (01) ==
PROVIDERS: Emergency Provider Emergency Medicine Emergency Medical Services; PCP Family Medicine
DX: R19.7 Diarrhea, unspecified (principal)
CPT/HCPCS: 36415; 80048; 85025; 99284; A9270

== ENCOUNTER 2024-01-14 12:56 | Inpatient (IN) | payer MEDICARE, BC, SELFPAY ==
[2024-01-14] VITALS (17 sets, daily range): BP systolic 88–196; BP diastolic 44–83; PULSE 64–98; RESP 18–20; TEMP 36.3–36.7; O2SAT 92–100; BMI 20.6; BMI 21.0
--- NOTE | 2024-01-14 13:15 | ED_ITS ---
HPI - Abdominal Pain General Time Seen by Provider: 13:16 Date Seen: 01/14/24 Chief Complaint: Abdominal Pain Stated Complaint: Abdominal pain, weakness Time Seen by Provider: 01/14/24 13:15 Source: patient and RN notes reviewed Mode of arrival: ambulatory Limitations: no limitations History of Present Illness HPI narrative: Richa is a 68-year-old female with a complicated past medical history including COPD, hyperlipidemia, Sjogren's syndrome, lupus he who comes to the emergency room for ongoing vomiting and diarrhea. Patient notes that she has had diarrhea on and off for approximately 3 weeks. A week ago she started noticing constant diarrhea on January 06, and . She was seen here on January 11 at which time she was given fluids, had a creatinine of 2.0 and a potassium of 5.8 and was discharged home. She was to hold her carvedilol and losartan and use Imodium for diarrhea. Unfortunately the diarrhea has continued, the vomiting has worsened and now in the last 6 hours she is experiencing a lot more abdominal pain. She does agree that her abdomen feels more distended. She notes a lot of burning in her chest and frequent burping. Notes that she did have endoscopy last year which showed a small ulcer and multiple other stomach lesions. This was from outside hospital. She still retains her gallbladder and appendix. Her granddaughter reports that she has not really had any solid food for 5 days and really no fluid since last night. Richa denies any fevers but does note that she will get burning hot before she vomits and then she feels like she is freezing. Denies symptoms of COVID. Denies past history of alcohol or narcotic addictions. Does receive medical marijuana. Patient denies history of antibiotic use. No history of C diff. Related Data Home Medications ?Medication ?Instructions ?Recorded ?Confirmed CBD Oil sublingual 11/17/21 01/04/24 aspirin 81 mg chewable tablet 81 mg PO QDAY 11/17/21 01/04/24 (Aspirin Childrens) magnesium oxide 400 mg (241.3 mg 400 mg PO QDAY 11/17/21 01/04/24 magnesium) tablet alirocumab 75 mg/mL subcutaneous 75 mg subcut Q2W 03/09/22 01/04/24 pen injector (Praluent Pen) hydrocortisone 2.5 % topical cream 1 applic topical QDAY PRN 03/09/22 01/04/24 ezetimibe 10 mg tablet 10 mg PO DAILY 12/14/22 01/14/24 Electrolytes PO PRN 01/10/23 01/04/24 omeprazole 40 mg capsule,delayed 40 mg PO BID 01/19/23 01/04/24 release alendronate 70 mg tablet (Fosamax) 70 mg PO QWEEK 07/28/23 01/04/24 hydroxychloroquine 200 mg tablet 200 mg PO DAILY 07/28/23 01/14/24 (Plaquenil) naltrexone 1.5 mg capsule 5.5 mg PO DAILY 07/28/23 01/04/24 mycophenolate mofetil 500 mg tablet 1,000 mg PO BID 09/30/23 01/14/24 prednisone 2.5 mg tablet 7.5 mg PO DAILY 09/30/23 01/14/24 spironolactone 25 mg tablet 25 mg PO DAILY 09/30/23 01/14/24 acetaminophen 650 mg 1,300 mg PO Q12H PRN 11/17/23 01/04/24 tablet,extended release (Tylenol Arthritis Pain) ergocalciferol (vitamin D2) 1,000 2,000 unit PO QDAY 11/17/23 01/04/24 unit capsule losartan 100 mg tablet 100 mg PO DAILY 11/17/23 01/14/24 Medical Cannabis PO 01/04/24 carvedilol 12.5 mg tablet 12.5 mg PO BID 01/04/24 01/04/24 doxazosin 2 mg tablet 4 mg PO QPM 01/14/24 01/14/24 meloxicam 15 mg tablet 15 mg PO DAILY 01/14/24 01/14/24 Previous Rx's ?Medication ?Instructions ?Recorded amoxicillin 500 mg capsule 2,000 mg (4 x 500 mg) PO ONCE #16 11/17/23 caps diphenoxylate-atropine 2.5 1 tab PO DAILY #10 tabs 01/12/24 mg-0.025 mg tablet (Lomotil) ondansetron HCl 4 mg tablet 4 mg PO Q6H #20 tabs 01/12/24 Allergies Allergy/AdvReac Type Severity Reaction Status Date / Time atenolol Allergy Severe Verified 01/14/24 14:15 belimumab Allergy Severe Rash Verified 01/14/24 14:15 fentanyl Allergy Severe Cardiac Verified 01/14/24 14:15 Arrest infliximab [From Remicade] Allergy Severe Anaphylaxis Verified 01/14/24 14:15 alendronate sodium Allergy Mild stomach Verified 01/14/24 14:15 pain amitriptyline Allergy Mild Unknown Verified 01/14/24 14:15 buprenorphine Allergy Mild didn't help Verified 01/14/24 14:15 gabapentin Allergy Mild stomach Verified 01/14/24 14:15 issues amoxicillin Allergy Unknown Unknown Verified 01/14/24 14:15 diltiazem Allergy Unknown Unknown Verified 01/14/24 14:15 duloxetine Allergy Unknown Unknown Verified 01/14/24 14:15 erythromycin base Allergy Unknown Unknown Verified 01/14/24 14:15 hydralazine Allergy Unknown Unknown Verified 01/14/24 14:15 hydrochlorothiazide Allergy Unknown unknown Verified 01/14/24 14:15 hydroxychloroquine Allergy Unknown Unknown Verified 01/14/24 14:15 Bdlbrfm-LNU-HnO Reductase Allergy Unknown Unknown Verified 01/14/24 14:15 Inhibitor tetracycline Allergy Unknown Unknown Verified 01/14/24 14:15 venlafaxine Allergy Unknown Unknown Verified 01/14/24 14:15 bupropion [From Wellbutrin] AdvReac hazy Verified 01/14/24 14:15 clopidogrel [From Plavix] AdvReac Verified 01/14/24 14:15 Review of Systems Status of ROS Reports: 10 or more systems reviewed and unremarkable except as noted in History and below Const Reports: chills and fatigue; Denies: fever Eyes Denies: change in vision ENMT Denies: neck pain or nasal congestion Cardio Reports: chest pain (Burning sensation associated with vomiting.); Denies: shortness of breath with exertion Resp Denies: shortness of breath or cough GI Reports: abdominal pain, nausea, vomiting and diarrhea; Denies: blood in stool Denies: painful urination Musculo Denies: neck pain Neuro Denies: headache or numbness in extremities Endo Reports: fatigue PFSH PFS Medical History History of pacemaker ?Z95.0 - Presence of cardiac pacemaker (ICD-10) COVID-19 ?U07.1 - COVID-19 (ICD-10) Health care directive on file ?Z78.9 - Other specified health status (ICD-10) COPD (chronic obstructive pulmonary disease) ?J44.9 - Chronic obstructive pulmonary disease, unspecified (ICD-10) Post herpetic neuralgia ?B02.29 - Other postherpetic nervous system involvement (ICD-10) Mixed hyperlipidemia ?E78.2 - Mixed hyperlipidemia (ICD-10) Primary hypertension ?I10 - Essential (primary) hypertension (ICD-10) Chronic sinus infection ?J32.9 - Chronic sinusitis, unspecified (ICD-10) DJD (degenerative joint disease), lumbosacral ?M47.817 - Spondylosis without myelopathy or radiculopathy, lumbosacral region (ICD-10) Sjogren's syndrome (2012) ?M35.00 - Sjogren syndrome, unspecified (ICD-10) Positive antinuclear antibody (07/21/11) ?R76.8 - Other specified abnormal immunological findings in serum (ICD-10) Peripheral vascular disease ?I73.9 - Peripheral vascular disease, unspecified (ICD-10) Osteoporosis ?M81.0 - Age-related osteoporosis without current pathological fracture (ICD- 10) Obstructive sleep apnea syndrome (03/23/18) ?G47.33 - Obstructive sleep apnea (adult) (pediatric) (ICD-10) Hypothyroidism (06/30/17) ?E03.9 - Hypothyroidism, unspecified (ICD-10) History of lichen planus ?Z87.2 - Personal history of diseases of the skin and subcutaneous tissue (ICD-10) History of colonic polyps ?Z86.010 - Personal history of colonic polyps (ICD-10) History of basal cell carcinoma (BCC) ?Z85.828 - Personal history of other malignant neoplasm of skin (ICD-10) Generalized anxiety disorder (06/20/14) ?F41.1 - Generalized anxiety disorder (ICD-10) Fibromyalgia (2012) ?M79.7 - Fibromyalgia (ICD-10) Deafness in left ear (11/20/15) ?H91.92 - Unspecified hearing loss, left ear (ICD-10) Cerebral aneurysm (08/28/16) ?I67.1 - Cerebral aneurysm, nonruptured (ICD-10) Bilateral carotid artery stenosis ?I65.23 - Occlusion and stenosis of bilateral carotid arteries (ICD-10) Adjustment disorder with depressed mood (04/09/07) ?F43.21 - Adjustment disorder with depressed mood (ICD-10) Surgical History History of sinus surgery ?Z98.890 - Other specified postprocedural states (ICD-10) History of repair of right rotator cuff (2006) ?Z98.890 - Other specified postprocedural states (ICD-10) History of intravascular stent placement (05/2017) ?Z95.828 - Presence of other vascular implants and grafts (ICD-10) History of hysterectomy (1994) ?Z90.710 - Acquired absence of both cervix and uterus (ICD-10) History of section (1975) ?Z98.891 - History of uterine scar from previous surgery (ICD-10) History of cataract extraction ?Z98.49 - Cataract extraction status, unspecified eye (ICD-10) History of carotid endarterectomy (2009) ?Z98.890 - Other specified postprocedural states (ICD-10) Family History Sister Breast cancer Diabetes Mother Stroke Heart disease Father Prostate cancer Diabetes Daughter Diabetes Family/Other Breast cancer Social History Narrative: Medical marijuana use- onset 07/24/18 Single, no kids, 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, smoker, no EtOH What is your current living situation?: I presently have a place to live Problems where you live: no known problems Problems where you live details: no known problems In the past 12 months, utilities in danger of being shut off: no In past 12 months, lack of transportation kept you from medical appts, meetings, work, or getting things needed for daily living: no In the past 12 mos, have been you worried that your food would run out before you had money to buy more?: never true In the past 12 mos, the food you bought just didn't last and you didn't have money to buy more?: never true Highest level of school completed/degree received: high school graduate Do you use any of these nicotine containing products: None Second hand tobacco smoke exposure: No How often do you have a drink containing alcohol: never AUDIT-C Alcohol total score: 0 Non-prescribed substance use: marijuana (any form) Non-prescribed substance use details: medical Caffeine: Yes How often does anyone, including family, friends and others, physically hurt you : never How often does anyone, including family, friends and others, insult or talk down to you: never How often does anyone, including family, friends and others, threaten you with harm: never How often does anyone, including family, friends and others, scream or curse at you: never Little interest or pleasure in doing things: more than half the days Feeling down, depressed, or hopeless: not at all service: No Exam Narrative: Exam Narrative: Richa is awake and oriented. She is clearly in discomfort. Face is symmetrical as is mentation. Tacky mucous membranes noted neck is supple without lymphadenopathy. Heart with regular rate and rhythm and lungs are clear in the upper aspects. Distant breath sounds in the bases. Abdomen is with diffuse discomfort more so in the right upper quadrant however. Abdomen is soft. Lower extremities without edema. Const: Vital Signs, click to edit/add: Vital Signs - 24 hr 01/14/24 13:01 01/14/24 14:44 01/14/24 14:45 Temperature 97.3 F L Pulse Rate 66 71 Pulse Rate [Pulse Oximeter] 71 Respiratory Rate 20 Blood Pressure 166/69 H Blood Pressure [Ri ght Upper Arm] 104/66 Pulse Oximetry 99 99 97 Oxygen Delivery Me thod Room Air 01/14/24 15:00 01/14/24 15:02 01/14/24 15:03 Temperature Pulse Rate 66 70 71 Pulse Rate [Pulse Oximeter] Respiratory Rate Blood Pressure 188/74 H Blood Pressure [Ri ght Upper Arm] Pulse Oximetry 99 96 97 Oxygen Delivery Me thod 01/14/24 15:30 01/14/24 15:32 01/14/24 16:00 Temperature Pulse Rate 72 76 72 Pulse Rate [Pulse Oximeter] Respiratory Rate Blood Pressure 141/83 H Blood Pressure [Ri ght Upper Arm] Pulse Oximetry 100 100 98 Oxygen Delivery Me thod 01/14/24 16:02 01/14/24 16:03 Temperature Pulse Rate 75 75 Pulse Rate [Pulse Oximeter] Respiratory Rate Blood Pressure 165/82 H Blood Pressure [Ri ght Upper Arm] Pulse Oximetry 97 99 Oxygen Delivery Me thod Documenting provider has reviewed patient's vital signs: yes Course Course ED Course: Differential diagnosis includes but is not limited to C diff, bowel obstruction, gastroenteritis, biliary colic. Will place IV and give normal saline, Toradol 15 mg, Zofran 4 mg. Will check labs to include CBC, comprehensive panel, CRP, lipase, lactate, urinalysis. Plan on abdominal CT as well. Labs have returned very reassuring. Creatinine which was initially 2.048 hours ago is now 1.0 and potassium [place] [address] with previous value of 6.5 normal 48 hours ago. Reevaluation(s) Reevaluation #1: Patient currently on naltrexone. Denies history of narcotic or opioid abuse. Does have a a pacemaker placement. He does use medical marijuana. Notes recent appointment at [facility] for an angiogram on January 11. Because patient had been vomiting she was supposed to go to the [facility] ED but elected to come to [place] instead. Patient describes burning in chest associated with retching but no ongoing chest pain. Have added EKG and troponin to orders at this time. Reevaluation #2: EKG is reassuring however troponin has come back elevated at 0.66 on our i-STAT machine. Therefore have ordered a lab backup. Vital Signs Vital signs: Initial Vital Signs Temperature 97.3 F L 01/14/24 13:01 Temperature Source Temporal Artery Scan 01/14/24 13:01 Pulse Rate 71 01/14/24 13:01 Pulse Rhythm Regular 01/14/24 13:01 Pulse Strength 3+ Normal 01/14/24 13:01 Respiratory Rate 20 01/14/24 13:01 Blood Pressure 104/66 01/14/24 13:01 Blood Pressure Mean 78 01/14/24 13:01 Blood Pressure Position Sitting 01/14/24 13:01 Pulse Oximetry 99 01/14/24 13:01 Oxygen Delivery Method Room Air 01/14/24 13:01 Vital Signs Temperature 97.3 F L 01/14/24 13:01 Pulse Rate 71 01/14/24 13:01 Respiratory Rate 20 01/14/24 13:01 Blood Pressure 104/66 01/14/24 13:01 Pulse Oximetry 99 01/14/24 13:01 Oxygen Delivery Method Room Air 01/14/24 13:01 Temperature 97.3 F L 01/14/24 16:50 Pulse Rate 75 01/14/24 16:03 Respiratory Rate 20 01/14/24 16:50 Blood Pressure 196/72 H 01/14/24 16:50 Pulse Oximetry 99 01/14/24 16:50 Oxygen Delivery Method Room Air 01/14/24 16:50 Medications Administered Medications: Generic Name Dose Route Start Last Admin Trade Name Drea PRN Reason Stop Dose Admin Sodium Chloride 1,000 mls @ 125 mls/hr 01/14/24 18:58 01/14/24 19:05 0.9 % Sodium Chloride 1000 Ml IV 125 mls/hr .Q8H SUSAN Administration Discontinued Medications Generic Name Dose Route Start Last Admin Trade Name Drea PRN Reason Stop Dose Admin Sodium Chloride 1,000 mls @ 1,000 mls/hr 01/14/24 13:32 01/14/24 15:31 0.9 % Sodium Chloride 1000 Ml IV 01/14/24 14:31 Infused .Q1H SUSAN Infusion Ketorolac Tromethamine 15 mg 01/14/24 13:32 01/14/24 13:48 Ketorolac 15 Mg/Ml Inj IVP 01/14/24 13:33 15 mg ONCE ONE Administration Lorazepam 0.5 mg 01/14/24 15:35 01/14/24 15:43 Lorazepam 2 Mg/Ml Inj IVP 01/14/24 15:36 0.5 mg ONCE ONE Administration Morphine Sulfate 4 mg 01/14/24 14:29 01/14/24 14:42 Morphine 4 Mg/Ml Inj IVP 01/14/24 14:30 4 mg ONCE ONE Administration Ondansetron HCl 4 mg 01/14/24 13:32 01/14/24 13:50 Ondansetron 2 Mg/Ml Inj IVP 01/14/24 13:33 4 mg ONCE ONE Administration Pantoprazole Sodium 40 mg 01/14/24 16:11 01/14/24 16:22 Pantoprazole Sodium 40 Mg Inj IVP 01/14/24 16:12 40 mg ONCE ONE Administration MDM - Abdominal Pain MDM Narrative Medical decision making narrative: 1. Nausea vomiting and diarrhea-unknown etiology with reassuring CT at this time but elevated white count. Patient unable to take p.o. at this time. Patient does have past history of gastric ulcer. She is given Protonix 40 mg IV. Vomiting has improved somewhat. Initially given Zofran 4 mg IV followed by At jhonny 0.5 mg IV. C diff pending. 2. Abdominal pain-CT reassuring with no evidence of bowel obstruction abnormality. Right upper quadrant ultrasound did not show any evidence of biliary stones or cholecystitis. Pain initially controlled with Toradol 15 mg IV followed by morphine 4 mg IV. Patient currently on naltrexone which may inhibit opioid pain relieving properties. 3. History of lupus 4. Elevated troponin-troponin came back elevated after patient's departure from the ED 0.66. This was confirmed by laboratory backup. Her 2nd troponin is now pending. I immediately contacted hospitalist in regards to this information. Have ordered a repeat troponin as the initial lab troponin was from blood collected at 1400 hours. 5. Hyponatremia-mild at 0125. Normal saline currently being used. 6. Disposition-admission under the care of Dr. Emanuel. Hospital requests COVID which is negative. Addendum: 2nd troponin in lab was 0.67 which means this is stable. I did discuss this with the hospitalist. Also discussed with Dr. Hoover the gallbladder hydrops noted on the ultrasound but not needed noted on CT. There is no evidence of stones or gallbladder wall thickening but there is concern regarding a acalculous cholecystitis and thus they are recommending initiation of antibiotics. Medical Records Attestation: I reviewed the patient's medical records. Lab Data Attestation: I reviewed the patient's lab results. Labs: Lab Results 01/14/24 01/14/24 01/14/24 Range/Units 13:46 14:20 15:57 WBC 14.34 H (4.50-11.00) K/uL RBC 4.54 (4.00-5.20) m/uL Hgb 13.5 (12.0-16.0) gm/dL Hct 39.7 (33.0-51.0) % MCV 87 (80-100) fL MCH 30 (26-34) pg MCHC 34 (32-36) gm/dL RDW Coeff of [place] 12.6 (11.5-15.5) % Plt Count 290 (140-440) K/uL Neut % (Auto) 88.6 H (42.0-72.0) % Lymph % (Auto) 4.5 L (20-44) % [place] % (Auto) 6.7 (0.0-11.0) % Eos % (Auto) 0.0 (0.0-7.0) % Baso % (Auto) 0.1 (0.0-3.0) % Neut # (Auto) 12.70 H (1.7-7.0) K/uL Lymph # (Auto) 0.60 L (0.90-2.90) K/uL [place] # (Auto) 1.00 H (0.00-0.90) K/UL Eos # (Auto) 0.00 (0.00-0.50) K/uL Baso # (Auto) 0.00 (0.00-0.30) K/uL Abs Immat Gran (auto) 0.00 (0.00-0.30) K/uL Imm/Tot Granulo (auto) 0.1 % Sodium 125 L (135-149) mmol/L Potassium 4.9 (3.6-5.1) mmol/L Chloride 91 L (96-114) mmol/L Carbon Dioxide 22 (20-32) mmol/L Anion Gap 12 (7-15) mEq/L BUN 41 H (7-30) mg/dL Creatinine 1.0 (0.5-1.5) mg/dL Estimated Creat Clear 47.14 Estimated GFR 61 ml/min Glucose 136 H (60-115) mg/dL Lactate 1.7 (0.5-1.9) mmol/L Calcium 10.3 (8.4-10.6) mg/dL Total Bilirubin 0.7 (0.1-1.5) mg/dL AST 36 H (12-35) U/L ALT 19 (4-35) U/L Alkaline Phosphatase 41 (40-150) U/L Troponin I 0.66 H* (0.01-0.04) ng/mL C-Reactive Protein 2.0 H (0.5-1.0) mg/dL Total Protein 7.4 (6.0-8.3) g/dL Albumin 4.5 (3.3-5.0) g/dL Lipase 114 (23-300) U/L Urine Color Yellow (Yellow) Urine Appearance Clear (Clear) Urine pH 6.0 (5.0-8.5) Ur Specific [place] 1.025 (1.000-1.030) Urine Protein 2+ A (Negative) Urine Glucose (UA) Negative (Negative) Urine Ketones 2+ A (Negative) Urine Blood Trace-intact A (Negative) Urine Nitrite Negative (Negative) Urine Bilirubin Negative (Negative) Urine Urobilinogen 0.2 (0.2-1.0) Ur Leukocyte Esterase Negative (Negative) Urine RBC 0-2 (0-2) Urine WBC 0-2 (0-5) Ur Squamous Epith Cells None (None-Few) Urine Bacteria None (None) SARS-CoV-2 (PCR) Negative SARS-CoV-2 (Negative) POC Creatinine 1.2 (0.6-1.3) mg/dl Imaging Data CT scan - abdomen: Attestation: I have reviewed the pertinent imaging results. Radiologist's impression: bdominal pain with nausea and vomiting. TECHNIQUE: CT abdomen and pelvis acquired with 61 cc Isovue 370 IV contrast. COMPARISON: November 30, 2022. FINDINGS: Lower chest: Unremarkable. Liver: Unremarkable. Normal in size and attenuation. No suspicious masses. Gallbladder and bile ducts: Unremarkable. No stones or inflammation. No biliary dilatation. Pancreas: Unremarkable. No mass or inflammation. Spleen: Unremarkable. Normal in size. No masses. Adrenal glands: Unremarkable. No nodules. Kidneys: Unremarkable. No suspicious masses, stones, or hydronephrosis. GI tract: Unremarkable. Normal in caliber. No sign of mass or inflammation. Vasculature: Dense aortic atherosclerosis without aneurysm. Mesenteric arteries are patent. Lymph nodes: No lymphadenopathy. Peritoneum/Abdominal Wall: Unremarkable. No sign of mass or infiltration. No free air or significant free fluid. Pelvis: Unremarkable. Bones: Unremarkable for age. Grade 1 spondylolisthesis at L5-S1. IMPRESSION: No acute or specific finding to explain abdominal pain, nausea or vomiting. No sign of GI tract obstruction or inflammation US - abdomen: Attestation: I have reviewed the pertinent imaging results. Radiologist's impression: Gallbladder appears hydropic gallbladder wall measures 3 millimeters within normal limits no stones are seen common bile duct measures 6 millimeters no intraductal stones. IMPRESSION: Hydropic appearing gallbladder without stones or wall thickening. ECG Data Attestation: I personally reviewed and interpreted this ECG as follows: ECG interpretation date: 01/14/24 Interpretation: EKG by my read shows sinus rhythm at a rate of 71. I do not note any acute ST or T-wave changes. WI intervals and QT intervals within normal limits. Discharge Plan Discharge Clinical Impression: Nausea vomiting and diarrhea, Abdominal pain Patient Disposition: Admitted As Observation Condition: Improved
--- NOTE | 2024-01-14 13:32 | CRLHL7_ITS ---
For Patients: As a result of the Century Cures Act, medical imaging exams and procedure reports are released immediately into your electronic medical record. You may view this report before your referring provider. If you have questions, please contact your health care provider. INDICATION: Abdominal pain with nausea and vomiting. TECHNIQUE: CT abdomen and pelvis acquired with 61 cc Isovue 370 IV contrast. COMPARISON: November 30, 2022. FINDINGS: Lower chest: Unremarkable. Liver: Unremarkable. Normal in size and attenuation. No suspicious masses. Gallbladder and bile ducts: Unremarkable. No stones or inflammation. No biliary dilatation. Pancreas: Unremarkable. No mass or inflammation. Spleen: Unremarkable. Normal in size. No masses. Adrenal glands: Unremarkable. No nodules. Kidneys: Unremarkable. No suspicious masses, stones, or hydronephrosis. GI tract: Unremarkable. Normal in caliber. No sign of mass or inflammation. Vasculature: Dense aortic atherosclerosis without aneurysm. Mesenteric arteries are patent. Lymph nodes: No lymphadenopathy. Peritoneum/Abdominal Wall: Unremarkable. No sign of mass or infiltration. No free air or significant free fluid. Pelvis: Unremarkable. Bones: Unremarkable for age. Grade 1 spondylolisthesis at L5-S1. IMPRESSION: No acute or specific finding to explain abdominal pain, nausea or vomiting. No sign of GI tract obstruction or inflammation. Please note that all CT scans at this facility use dose modulation, iterative reconstruction, and/or weight-based dosing when appropriate to reduce radiation dose to as low as reasonably achievable. Dictated by Fabio Borden MD @ 01/14/2024 3:14:02 PM (Electronically Signed)
--- OUTSIDE RECORDS SUMMARY | 2024-01-14 13:36 | XMS_ITS | Clinical Summary ---
Author Organization Formerly [facility] Address [address] [place] [address] Care Team Providers Care Property Custodian Name Role Phone Dalton Esqueda MD Primary Care Provider [phone] Source Comments You are receiving this document [...] for each transition of care or referral. [facility] Allergies Active Allergy Reactions Criticality Noted Date [...] Take by mouth daily. ProOmega Curcumin by [employer]: Take 3 capsules by mouth daily Active [...] every week. Take 30 minutes before first tiyx-mrxmo-nmalnk tion on mornings. Avoid lying down for [...] (11/11/2023): Dual Chamber Medtronic [place] XT DR ROXIE Diaz - MRI conditional Chronotropic incompetence 11/10/2023 Sinus [...] Care Team Description 01/11/2024 Telephone Rheumatology at [place] [address] [address] [place] [address] Freeman Lopez, DO Follow-up 01/06/2024 1:30 PM CDT Office Visit [facility] [address] Cardiology [address] [place] [address] Wilfredo Howell III, MD Hypertension, unspecified type (HRC) (Primary Dx); SSS (sick sinus syndrome) (HRC); Cardiac pacemaker in situ; PAD (peripheral artery disease) (HRC); Mixed hyperlipidemia (HRC) 12/29/2023 10:30 AM CDT Lab Visit [facility] [address] [place] [address] Systemic lupus erythematosus, unspecified SLE type, unspecified organ involvement status (HRC) 12/22/2023 11:20 AM CDT Lab Visit [facility] [address] [place] [address] Systemic lupus erythematosus, unspecified SLE type, unspecified organ involvement status (HRC) 12/22/2023 10:45 AM CDT Office Visit Rheumatology at [facility] [place] [address] [facility] [address] [place], [place] [address] DesiletFreeman W, DO Systemic lupus erythematosus, unspecified SLE type, unspecified organ involvement status (HRC) (Primary Dx); High risk medication use; Osteoporosis, unspecified osteoporosis type, unspecified pathological fracture presence (HRC); Essential hypertension (HRC); Vaccine counseling; Pre-op evaluation 12/22/2023 Telephone [facility] [address] [place], [place] [address] DesiletFreeman W, Other (The following lab test(s) utpcr are unable to be performed and have been cancelled. Please reorder the test(s) and contact the patient if still clinically indicated.//Terri Galeana 12/22/2023, 4:49 PM/) 12/20/2023 [facility]phone [facility] [address] [place], [place] [id number] Rosa Elena Huynh PA-C RESULTS, TEST 12/15/2023 1:20 PM CDT Lab Visit [facility] [address] [place] [address] Pre-op exam 12/15/2023 12:40 PM CDT Office Visit [facility] [address] [address]iology [address] [place] [address] Rosa Elena Huynh PA-C Pre-op exam (Primary Dx); Hypertension, unspecified type (HRC); Hyperlipidemia, unspecified hyperlipidemia type (HRC); Hypertensive emergency; SSS (sick sinus syndrome) (HRC); Cardiac pacemaker in situ; Sinus bradycardia; Chronotropic incompetence 12/08/2023 Notes/Orders [facility] [address] [facility] [place] [address] Wilfredo Howell III, MD 12/07/2023 Notes/Orders [facility] [address] [place], [place] [address]or [facility] [place] [address] Wilfredo Howell III, MD 12/06/2023 Telephone [facility] [address] [place], [place] [address]or [facility] [place] [address] Wilfredo Howell III, MD UPDATE 11/22/2023 8:45 AM CDT Evaluation [facility] Elect[facility] [address] [place] [address]. [place] [address] SSS (sick sinus syndrome) (HRC) (Primary Dx); Cardiac pacemaker in situ 11/17/2023 E-Visit [facility] [address] [place] [address]. [place] [address] Mychart, Generic Provider 11/17/2023 Telephone [facility] [address] [place] [address]. [place] [address] Wilfredo Howell III, MD Hypertension 11/15/2023 Nurse Triage [facility] [address] [place] [address] Unknown, Physician Post-Op Problem; BLOOD PRESSURE, HIGH 11/08/2023 12:45 PM CDT - 11/13/2023 11:30 AM CDT Hospital Encounter [facility] 2[facility] ICU [address] [facility] [place] [address] Kayla Vázquez, Christian Card MD Smith, Cole B, Filomena Jordan DO Kovacovich, Joan M, MD Teeparti, Rewati, MD Chronic pain syndrome (Primary Dx); Hypertensive emergency; Cerebral aneurysm without rupture; Acute nonintractable headache, unspecified headache type; Brain aneurysm Discharge Disposition: Home 11/08/2023 11:30 AM CDT Office Visit [facility] [place] [address] [facility] [address] [place] [address] Juan Luis Robles MD Hypertensive emergency (Primary Dx) 11/08/2023 Orders Only HIM DEPARTMENT Provider, MD Isabelle 11/02/2023 Telephone [facility] [place] [address] Wilfredo Howell III, MD BLOOD PRESSURE, HIGH 10/26/2023 11:10 AM CDT Lab Visit [facility] [address] [place] [address] High risk medication use 10/24/2023 Notes/Orders [facility] [address] [place] [address] Wilfredo Howell III, MD 10/24/2023 Telephone [facility] [place] [address] Wilfredo Howell III, MD Hypertension from Last 3 Months Immunizations Name Administration Dates Next Due Flu Vac (3+ yrs) 03/21/2013, 2,02/26/2011, 010,02/06/2009 Flu Vac Preserv Free (3+yrs) 02/26/2011 [id number] 04/15/2009 Influenza [id number] 2009 Influenza IIV4 (Quadrivalent ) 0.5mL (81264) 01/17/2017,03/03/2016,01/15/2015, 014,03/21/2013,03/13/2012,02/26/2011,,04/15/2009 PPSV23 (Pneumovax) 04/06/2002 Td 04/06/2002 Tdap 01/31/2023,08/23/2011 Social History Tobacco Use Types Packs/Day Years Used Date Smoking Tobacco: Former Cigarettes Smokeless Tobacco: Never Tobacco Cessation:Counseling Given: Not Answered Alcohol Use Standard Drinks/Week Comments Not Currently 0 (1 standard drink = 0.6 oz pur e alcohol) [facility] Utilities Answer Date Recorded In the past 12 months has th e [employer], gas, oil, or water company threatened to [...] place to sleep or slept in a detention (including now)? No 11/08/2023 Sex and Gender [...] Info) Description 01/24/2024 9:00 AM CDT Appointment [facility] [address] [facility] [address] [place] [address] 03/14/2024 2:00 PM HELP DESK AGENT Appointment [facility] [address] [place] [address]. [place] [address] Brandon Kessler MD [address] [place] [address] 03/20/2024 11:15 AM HELP DESK AGENT Appointment Rheumatology at [facility] [place] [address] [address] [address] [place] [address] Desilet, Luke W, DO [address] [place], [place] [address] Health Maintenance Due Date Last Done Comments Colon Cancer Screening Plan Due 1955 Hep C Screening (Preventive Services) 1955 Medicare Annual Wellness Visit 1955 Cholesterol 1999 Zoster/Shingles (1 of 2) 2004 Pneumococcal 65+ Yrs (2 - PCV) 2019 04/06/2002 Mammogram 03/07/2020 03/07/2019 COVID-19 Vaccine (1 - 2023- season) 2023 Influenza (#1) 2023 01/17/2017, 11/12/2015, 01/15/2015, Additional history exists RSV (1 - [...] this topic Medical Devices Implanted Type Area Personal Clothing Laundry Aide Device Identifier Shelf Expiration Date Model / Serial / Lot Dual Chamber Medtronic [place] Xt Dr Roxie Diaz-Mri Conditional-10/23 Implanted:11/10 by Gilbert Grey MD (Quantity not on file) Cardiac- Rhythm Left: CHEST Medtronic - Cardiovascular Description:Dual Chamber Med tronic [place] XT DR ROXIE HermanScdaiana - MRI conditional Procedures Procedure Name Priority [...] TP/Crea Ratio, Urine (12/29/2023 9:02 AM CDT) [facility] TP/Creat Ratio, Urine Random 0.05 0.00 - 0.20 12/29/2023 2:52 PM CDT [facility] Total Protein, Urine, Random 2 0 - 14 mg/dL 12/29/2023 2:52 PM CDT [facility] Creatinine, Urine, Random 41 >20 mg/dL mg/dL 12/29/2023 2:52 PM CDT [facility] Urine Non-blood Collection / Unknown 12/29/2023 9:02 AM CDT 12/29/2023 9:02 AM CDT Narrative [facility] - 12/29/2023 2:52 PM CDT Low urine creatinine values coupled with low urine protein values can artifactually increase the urine protein/creatinine results. Correlate results of ratio with creatinine results. Luke W Desilet DO LAB_1 [facility] [address] * (ABNORMAL) Urinalysis Routine, Micro/Culture if Pos: Clean Catch (12/22/2023 12:00 PM CDT) Urine Culture Comment Urinalysis results do not meet criteria for urine culture reflex. 12/22/2023 12:10 PM [facility] Urine Color Straw 12/22/2023 12:10 PM [facility] Urine Clarity Clear Clear 12/22/2023 12:10 PM [facility] Specific [place], Urine <=1.005(A) 1.005 - 1.030 12/22/2023 12:10 PM [facility] PH Urine 6.0 5.0 - 8.0 12/22/2023 12:10 PM [facility] Protein, Urine Qual (mg/dL) Negative Neg/Trace 12/22/2023 12:10 PM [facility] Glucose Urine Qual (mg/dL) Negative Negative 12/22/2023 12:10 PM [facility] Ketones, Urine (mg/dL) Negative Negative 12/22/2023 12:10 PM [facility] Urobilinogen, Urine (EU/dL) 0.2 <2.0 12/22/2023 12:10 PM [facility] Bilirubin Urine Negative Negative 12/22/2023 12:10 PM [facility] Blood, Urine Negative Neg/Trace 12/22/2023 12:10 PM [facility] Nitrite Urine Negative Negative 12/22/2023 12:10 PM [facility] Leukocyte Est. Negative Negative 12/22/2023 12:10 PM CDT [facility] Urine Source Clean Catch 12/22/2023 12:10 PM CDT [facility] Urine URINE SPECIMEN COLLECTION, CLEAN CATCH / Unknown Non-blood Collection / Unknown 12/22/2023 12:00 PM CDT 12/22/2023 12:00 PM CDT [facility] Des[facility] DO LAB_1 Performing Organization Address [facility]/ZIP Co de Phone Number [facility] [address] [place] [address] * DNA Double Stranded Antibody IgG (ALBA) (12/22/2023 11:23 AM CDT) Pathologist [facility] Anti-DNA Antibody IgG 15 <200 IU 12/27/2023 2:12 PM CDT [facility] Anti-DNA Antibody IgG Interpretation Negative Negative 12/27/2023 2:12 PM CDT [facility] Blood Venipuncture / Unknown 12/22/2023 11:23 AM CDT 12/22/2023 11:23 AM CDT Narrative [facility] - 12/27/2023 2:12 PM CDT The following results were obtained with the [employer] QUANTA Lite dsDNA ALBA. dsDNA values obtained with different manufacturers' assay methods may not be used interchangeably. [facility] Desilet LAB_1 Performing Organization Address [facility] Co de Phone Number [facility] [address] [place], [place] [address] * (ABNORMAL) Complete Blood Count-W/Diff (12/22/2023 11:23 AM CDT) Only the most recent of4 resultswithin the time period is included. Pathologist [facility] WBC 7.3 3.5 - 10.5 x10(9)/L 12/22/2023 11:28 AM CDT [facility] RBC 3.88(L) 3.90 - 5.03 x10(12)/L 12/22/2023 11:28 AM CDT [facility] Hemoglobin 11.7(L) 12.0 - 15.5 g/dL 12/22/2023 11:28 AM [facility] HCT 36.4 34.9 - 44.5 % 12/22/2023 11:28 AM [facility] MCV 93.8 80.0 - 100.0 fL 12/22/2023 11:28 AM [facility] MCH 30.2 27.6 - 33.3 pg 12/22/2023 11:28 AM [facility] MCHC 32.1 31.5 - 35.2 g/dL 12/22/2023 11:28 AM [facility] RDW 13.7 11.9 - 15.5 % 12/22/2023 11:28 AM [facility] Platelets 265 150 - 450 x10(9)/L 12/22/2023 11:28 AM [facility] Automated NRBC 0 <=0 /100 WBC 12/22/2023 11:28 AM [facility] Neutrophil Absolute 5.7 1.7 - 7.0 10(9)/L 12/22/2023 11:28 AM [facility] Lymphocyte Absolute 1.0 1.0 - 4.8 10(9)/L 12/22/2023 11:28 AM [facility] Monocyte Absolute 0.4 0.2 - 0.9 10(9)/L 12/22/2023 11:28 AM [facility] Eosinophil Absolute 0.1 0.0 - 0.5 10(9)/L 12/22/2023 11:28 AM [facility] Basophil Absolute 0.0 0.0 - 0.3 10(9)/L 12/22/2023 11:28 AM [facility] Immature Granulocyte % 0.4 0.0 - 0.5 % 12/22/2023 11:28 AM [facility] Blood Venipuncture / Unknown 12/22/2023 11:23 AM T 12/22/2023 11:23 AM [facility] Freeman Fong Desilet DO LAB_1 Performing Organization Address City/State/[facility] Co de Phone Number [facility] [address] [place] [address] * C4 Complement (12/22/2023 11:23 AM CDT) C4 Complement 15.0 15.0 - 57.0 mg/dL 12/22/2023 4:07 PM CDT [facility] Blood Venipuncture / Unknown 12/22/2023 11:23 AM CDT 12/22/2023 11:23 AM CDT Lu W Desilet DO LAB_1 Performing Organization Address [facility] de Phone Number [facility] [address] * C3 Complement (12/22/2023 11:23 AM CDT) C3 Complement 83 83 - 193 mg/dL 12/22/2023 4:07 PM CDT [facility] Blood Venipuncture / Unknown 12/22/2023 11:23 AM CDT 12/22/2023 11:23 AM CDT [facility] Desilet DO LAB_1 Performing Organization Address [facility] Phone Number [facility] [address] [place] [address] * (ABNORMAL) Basic Metabolic Panel (12/15/2023 1:14 PM CDT) Only the most recent of7 resultswithin the time period is included. Sodium 137 136 - 145 mmol/L 12/15/2023 5:32 PM T [facility] Potassium 5.1 3.5 - 5.1 mmol/L 12/15/2023 5:32 PM [facility] Chloride 103 98 - 109 mmol/L 12/15/2023 5:32 PM [facility] CO2 20 20 - 29 mmol/L 12/15/2023 5:32 PM [facility] Anion Gap 14 6 - 16 mmol/L 12/15/2023 5:32 PM T [facility] Calcium 11.1(H) 8.4 - 10.4 mg/dL 12/15/2023 5:32 PM T [facility] Comment:Low serum albumin ma y artificially lower total calcium, without impacting ionized calcium concentrations. If patient has or is at risk for hypoalbuminemia, consider ionized serum calcium to more accurately assess calcium status. BUN 57(H) 7 - 26 mg/dL 12/15/2023 5:32 PM T [facility] Creatinine 1.09(H) 0.55 - 1.02 mg/dL 12/15/2023 5:32 PM T [facility] Glucose 119(H) 70 - 100 mg/dL 12/15/2023 5:32 PM T [facility] Comment:The given reference range is for the fasting state. Non-fasting reference range for glucose is 70 - 180 mg/dL. GFR, Estimated 55(L) >60 mL/min/1. 73m2 12/15/2023 5:32 PM T [facility] Hours Fasting 0.0 8 - 12 Hours 12/15/2023 5:32 PM T [facility] Comment:Patient has indicate d a non-fasting status. Blood Venipuncture / Unknown 12/15/2023 1:14 PM CDT 12/15/2023 1:40 PM CDT Narrative [facility] - 12/15/2023 5:32 PM CDT The National Kidney Disease Education Program suggests measuring Cystatin C in patients with eGFRcrea of 45 to 59 ml/min/1.73^2 who do not have other markers of kidney damage (i.e. elevated urine Albumin/Creatinine Ratio or a prior Cystatin C confirming the presence of chronic kidney disease). Rosa Elena Huynh PA-C LAB_1 [facility] [address] [place] [address] * ECG 12 Lead Outpatient (12/15/2023 12:40 PM CDT) Ventricular Rate 65 BPM [facility] Atrial Rate 65 BPM [facility] P-R Interval 204 ms [facility] QRS Duration 90 ms [facility] QT 382 ms [facility] QTc 397 ms MUSE [facility] P [place] -3 degrees MUSE [facility] R [place] 35 degrees MUSE G[facility] T [place] 66 degrees MUSE [facility] 12/15/2023 12:4 0 PM CDT Narrative [facility] - 12/15/2023 4:07 PM CDT Atrial-paced rhythm Poor R wave progression Abnormal ECG When compared with ECG of 12-NOV-2023 06:51, No significant change was found Confirmed by Christopher Sosa ([id number]) on 12/15/2023 4:07:32 PM Procedure Note Lemuel Sosa MD - 12/15/2023 Atrial-paced rhythm Poor R wave progression Abnormal ECG When compared with ECG of 12-NOV-2023 06:51, No significant change was found Confirmed by Christopher Sosa ([id number]) on 12/15/2023 4:07:32 PM Rosa Elena Huynh PA-C PN ECG ORDERABLES Performing Organization Address [facility] Co de Phone Number [facility] [address] [place] [address] * Pacemaker Evaluation (11/22/2023 8:55 AM CDT) 11/22/2023 8:55 AM CDT Narrative [facility] - 11/22/2023 8:55 AM CDT Normal dual chamber pacemaker function. Patient presents for first visit after implant. Incision C/D/I, without any signs of infection. Incision edges well approximated. The device was interrogated and reprogrammed to assess data, thresholds, and function. No atrial or ventricular high rate episodes noted. GIN OPERATOR <0.1%. [facility] in 3 months. Please contact [phone] if any questions. dwk James Tejada MD PN ELECTROPHYSIOLOGY ORDERABLE Performing Organization Address City/[facility]/ZIP Co de Phone Number [facility] * ECG 12 Lead Inpatient, On post-op day #1 (11/12/2023 6:51 AM CDT) Only the most recent of4 resultswithin the time period is included. Ventricular Rate 62 BPM [facility] Atrial Rate 62 BPM [facility] P-R Interval 204 ms [facility]USE [facility] QRS Duration 86 ms M[facility] QT 414 ms MUSE [facility] QTc 420 ms MUSE G[facility] P [place] 22 degrees MUSE GHP R [place] 59 degrees MUSE G[facility] T [place] 78 degrees MUSE [facility] 11/12/2023 6:51 AM [...] MD PN ECG ORDERABLES Performing Organization Address City/State/[facility] Co de Phone Number [facility] [address] [place] [address] * XR Chest 2 Views (11/11/2023 7:41 [...] CARDIAC ELECTROPHYSIOLOGY PROCEDURE REPORT Cardiac Electrophysiology Service [facility] Cardiac Nailing Machine Operator: ??Gilbert Grey MD Date: 11/11/2023 PROCEDURES PERFORMED: [...] [id number] New Right Atrial Lead: ??Medtronic model [id number] Sensed P waves 4.1 mV, pacing threshold 1.2 V @ 0.5 ms, impedance 898 ohms. New Right Ventricular Lead: ??Medtronic model [id number] Sensed R waves 9.7 mV, pacing threshold [...] MD Cardiac Electrophysiology Service Sharona White APRN, JOINT FINISHER PN ELECTROPHYSIO LOGY ORDERABLE Performing Organization Address [facility] de Phone Number [facility] [address] [place], [place] [id number] * INPATIENT TELEMETRY MONITORING (11/10/2023 9:18 AM [...] RN Interface Provider EKG Performing Organization Address [facility] de Phone Number [facility] [address] [place] [address] * GXT Stress Test (11/10/2023 7:52 AM [...] ET ECHO ORDERABL [facility] [address] [place] [address] * TSH with reflex to fT4 (not for treatment monitoring) (11/10/2023 4:50 AM CDT) TSH, Reflex 0.90 0.30 - 4.50 uIU/mL 11/10/2023 6:20 PM CDT [facility] Blood Venipuncture / Unknown 11/10/2023 4:50 AM CDT 11/10/2023 5:26 AM CDT Fairlee Vijay White APRN, DOM LAB_1 [facility] [address] [place] [address], [facility] * Echocardiogram (11/09/2023 6:53 AM CDT) 11/09/2023 6:53 AM CDT Narrative PN ECHO - 11/09/2023 8:35 AM CDT Procedure type: ? ECHOCARDIOGRAM Procedure ? 11/09/2023 6:53 AM date/time: [facility] Accession #: ?[id number] INDICATIONS Dyspnea/SOB. SUMMARY: Left ventricular ejection fraction [...] Staff Interpreting Provider: ?? NILTON GARCIA MD Ic Designer Gate Arrays: ? Ordering Provider: ? JOLEEN Cisneros Attending [...] Procedure Staff Interpreting Provider: NILTON GARCIA MD Ic Designer Gate Arrays: EE Ordering Provider: JOLEEN Cisneros Attending Physician: KAYLA VÁZQUEZ DO Electronically signed by NILTON GARCIA MD (Interpreting Provider) on at 8:34 AM Crow Howell PA-C ET ECHO ORDERABLES PN ECHO * Complete Blood Count-No Diff (11/09/2023 4:59 AM CDT) WBC 6.1 3.5 - 10.5 x10(9)/L 11/09/2023 5:21 AM CDT [facility] RBC 3.98 3.90 - 5.03 x10(12)/L 11/09/2023 5:21 AM CDT [facility] Hemoglobin 12.0 12.0 - 15.5 g/dL 11/09/2023 5:21 AM CDT [facility] HCT 36.7 34.9 - 44.5 % 11/09/2023 5:21 AM CDT [facility] MCV 92.2 80.0 - 100.0 fL 11/09/2023 5:21 AM CDT [facility] MCH 30.2 27.6 - 33.3 pg 11/09/2023 5:21 AM CDT [facility] MCHC 32.7 31.5 - 35.2 g/dL 11/09/2023 5:21 AM CDT [facility] RDW 13.4 11.9 - 15.5 % 11/09/2023 5:21 AM CDT [facility] Platelets 236 150 - 450 x10(9)/L 11/09/2023 5:21 AM CDT [facility] Automated NRBC 0 <=0 /100 WBC 11/09/2023 5:21 AM CDT [facility] Blood Venipuncture / Unknown 11/09/2023 4:59 AM CDT 11/09/2023 5:17 AM CDT Crow Howell PA-C LAB_1 [facility] [address] [place], [place] [address] * XR Portable Chest 1 View (11/08/2023 [...] MRSA, Molecular Detection (11/08/2023 8:35 PM CDT) [facility] MRSA Not Detected Not Detected 11/08/2023 9:53 PM CDT [facility] Swab (Source Required) ENTIRE ANTERIOR NARIS / Unknown Non-blood Collection / Unknown 11/08/2023 8:35 PM CDT 11/08/2023 8:39 PM CDT Narrative [facility] - 11/08/2023 9:53 PM CDT Methodology: Qualitative real-time PCR assay Christian Carter MD LAB_1 Performing Organization Address [facility] Co de Phone Number [facility] [address] [place] [address] * Glucose, Whole Blood POCT (11/08/2023 8:12 PM CDT) [facility] Glucose, Whole Blood 86 70 - 180 mg/dL 11/08/2023 8:13 PM CDT [facility] Performing Location MT 2N/S 11/08/2023 8:13 PM CDT [facility] Blood 11/08/2023 8:12 PM CDT 11/08/2023 8:13 PM CDT Christian Carter MD LAB_1 Performing Organization Address [facility]/ZIP Co de Phone Number [facility] [address] [place] [address] * (ABNORMAL) Troponin-I (11/08/2023 7:56 PM CDT) Only the most recent of2 resultswithin the time period is included. Troponin I 0.06(H) 0.00 - 0.03 ng/mL 11/08/2023 8:33 PM CDT [facility] Blood Venipuncture / Unknown 11/08/2023 7:56 PM CDT 11/08/2023 8:00 PM CDT Crow Howell PA-C LAB_1 [facility] [address] [place] [address], [facility] * CT Angio Neck Head W IV Cont (11/08/2023 2:23 PM CDT) Anatomical Region Laterality Modality Head, Vascular Computed Tomogra phy 11/08/2023 2:08 PM CDT Impressions 11/08/2023 3:23 PM CDT INDICATION: sams, htn, known aneurysms TECHNIQUE: CT angiogram of the [place] ??and CT angiogram of the [...] known aneurysms TECHNIQUE: CT angiogram of the [place] and CT angiogram of theneck [...] Blue top tube (11/08/2023 1:04 PM CDT) [facility] Extra Blue Top Drawn Specimen will be held for 24 hours 11/08/2023 3:00 PM CDT [facility] Blood Venipuncture / Unknown 11/08/2023 1:04 PM CDT 11/08/2023 1:16 PM CDT Jenaro Robles MD LAB_1 Performing Organization Address [facility]/ZIP Co de Phone Number [facility] [address] * (ABNORMAL) B-Type Natriuretic Peptide (11/08/2023 1:04 PM CDT) [facility] B Type Natr. Peptide 198(H) <=99 pg/mL 11/08/2023 1:57 PM CDT [facility] Blood Venipuncture / Unknown 11/08/2023 1:04 PM CDT 11/08/2023 1:16 PM CDT Kayla Vázquez DO LAB_1 Performing Organization Address [facility]/ZIP Co de Phone Number [facility] [address] * PROCEDURE IP (11/08/2023) Anatomical Region Laterality Modality Other Interface Provider DUMMY/OTHER/AR * (ABNORMAL) Comp Metabolic Panel (10/26/2023 11:04 AM CDT) [facility] Sodium 139 136 - 145 mmol/L 10/26/2023 1:06 PM CDT [facility] Potassium 4.9 3.5 - 5.1 mmol/L 10/26/2023 1:06 PM CDT [facility] Chloride 106 98 - 109 mmol/L 10/26/2023 1:06 PM CDT [facility] CO2 23 20 - 29 mmol/L 10/26/2023 1:06 PM [facility] Anion Gap 10 6 - 16 mmol/L 10/26/2023 1:06 PM [facility] Calcium 10.5(H) 8.4 - 10.4 mg/dL 10/26/2023 1:06 PM [facility] Comment:Low serum albumin ma y artificially lower total calcium, without impacting ionized calcium concentrations. If patient has or is at risk for hypoalbuminemia, consider ionized serum calcium to more accurately assess calcium status. BUN 36(H) 7 - 26 mg/dL 10/26/2023 1:06 PM [facility] Creatinine 1.18(H) 0.55 - 1.02 mg/dL 10/26/2023 1:06 PM [facility] Alkaline Phosphatase 38(L) 40 - 150 U/L 10/26/2023 1:06 PM [facility] AST (SGOT) 22 10 - 40 U/L 10/26/2023 1:06 PM [facility] ALT (SGPT) 16 <=55 U/L 10/26/2023 1:06 PM [facility] Bilirubin, Total 0.4 0.2 - 1.2 mg/dL 10/26/2023 1:06 PM [facility] Protein, Total 7.0 6.4 - 8.3 g/dL 10/26/2023 1:06 PM [facility] Albumin 3.7 3.5 - 5.0 g/dL 10/26/2023 1:06 PM [facility] Glucose 105(H) 70 - 100 mg/dL 10/26/2023 1:06 PM [facility] Comment:The given reference range is for the fasting state. Non-fasting reference range for glucose is 70 - 180 mg/dL. GFR, Estimated 50(L) >60 mL/min/1. 73m2 10/26/2023 1:06 PM [facility] Hours Fasting 2.0 8 - 12 Hours 10/26/2023 1:06 PM [facility] Blood Venipuncture / Unknown 10/26/2023 11:04 AM T 10/26/2023 11:04 AM [facility] - 10/26/2023 1:06 PM CDT The National Kidney Disease Education Program suggests measuring Cystatin C in patients with eGFRcrea of 45 to 59 ml/min/1.73^2 who do not have other markers of kidney damage (i.e. elevated urine Albumin/Creatinine Ratio or a prior Cystatin C confirming the presence of chronic kidney disease). Freeman Fong Desilet DO LAB_1 [facility] [address] [place] [address], [facility] from Last 3 Months Advance Directives * [...] for unstable rhythm? Unaddressed/Y es Care Teams Property Custodian Relationship Specialty Start Date End Date Dalton Esqueda MD 1980 [address] [place] [address] PCP - General Family Practice 06/23/23
--- OUTSIDE RECORDS SUMMARY | 2024-01-14 13:36 | XMS_ITS | Encounter Summary ---
Author Organization [employer] Address [address] [place] [address] Care Team Providers Care Bass Mechanism Maker Name Role Phone Dalton Esqueda MD Primary Care Provider [phone] Reason for Visit * Reason Comments RESULTS, TEST Encounter Details Date Type Department Care Team (Late st Contact Info) Description 12/20/2023 [facility]phone [facility] [address] [place] [address] Rosa Elena Huynh PAYani [address] [place] [address] RESULTS, TEST Social History Tobacco Use Types Packs/Day Years Used Date Smoking Tobacco: Former Cigarettes Smokeless Tobacco: Never Alcohol Use Standard Drinks/Week Comments Not Currently 0 (1 standard drink = 0.6 oz pur e alcohol) [facility] Utilities Answer Date Recorded In the past 12 months has e [employer], gas, oil, or water [employer] threatened to shut off services in your [...] Info) Description 01/24/2024 9:00 AM CDT [facility]ment [facility] [address] [facility] [address] [place] [address] 03/14/2024 2:00 PM MANAGER MERCHANDISING Appointment [facility] Neurosurgery/Ortho Spine [address] [facility] [place] [address] Brandon Kessler MD [address] [place] [address] 03/20/2024 11:15 AM MANAGER MERCHANDISING Appointment Rheumatology at [facility] [place] [address] [facility] [address] [place] [address] Freeman Lopez, DO [address] [place] [address] documented as of this encounter Visit Diagnoses Not on filedocumented in this encounter Care Teams Bass Mechanism Maker Relationship Specialty Start Date End Date Dalton Esqueda MD [address] [place] [address] PCP - General Family Practice 06/23/23 documented as of this encounter
--- OUTSIDE RECORDS SUMMARY | 2024-01-14 13:36 | XMS_ITS | Encounter Summary ---
Author Organization [employer] Address [address] [place] [address] Care Team Providers Care Policy Services Representative Name Role Phone Dalton Esqueda MD Primary Care Provider [phone] Reason for Visit * Reason Comments UPDATE Encounter Details Date Type Department Care Team (Late st Contact Info) Description 12/06/2023 Telephone [facility] Cardiology [employer] [place] [address] Wilfredo Howell III, MD [address] [place] [address] UPDATE Social History Tobacco Use Types Packs/Day Years Used Date Smoking Tobacco: Former Cigarettes Smokeless Tobacco: Never Alcohol Use Standard Drinks/Week Comments Not Currently 0 (1 standard drink = 0.6 oz pur e alcohol) [facility] Utilities Answer Date Recorded In the past 12 months has [employer], gas, oil, or water [employer] threatened to shut off services in your [...] previously had praluent prescribed through a prior city secretary and is wondering if Dr. Howell would [...] Info) Description 01/24/2024 9:00 AM CDT Appointment [facility] [address] Electrophysiology [address] [place] [address] 03/14/2024 2:00 PM PYROTECHNICS PRESS TENDER Appointment [facility] Neurosurgery/Ortho Spine [address] [place] [address]. [place] [address] Brandon Kessler MD [address] [place] [address] 03/20/2024 11:15 AM PYROTECHNICS PRESS TENDER Appointment Rheumatology at [facility] [place] [address] [facility] [address] [place] [address] DesiletFreeman W, DO [address] [place] [address] documented as of this encounter Visit Diagnoses Not on filedocumented in this encounter Care Teams Policy Services Representative Relationship Specialty Start Date End Date Dalton Esqueda MD [address] [place] [address] PCP - General Family Practice 06/23/23 documented as of this encounter
--- OUTSIDE RECORDS SUMMARY | 2024-01-14 13:36 | XMS_ITS | Encounter Summary ---
Author Organization [employer] Address [address] [place] [address] Care Team Providers Care Billposting Supervisor Name Role Phone Dalton Esqueda MD Primary Care Provider [phone] Encounter Details Date Type Department Care Team (Late st Contact Info) Description 12/29/2023 10:30 AM CDT Lab Visit [place] [address] [place], [place] [address] Systemic lupus erythematosus, unspecified SLE type, unspecified organ involvement status (HRC) Social History Tobacco Use Types Packs/Day Years Used Date Smoking Tobacco: Former Cigarettes Smokeless Tobacco: Never Alcohol Use Standard Drinks/Week Comments Not Currently 0 (1 standard drink = 0.6 oz pur e alcohol) [facility] Utilities Answer Date Recorded In the past 12 months has [facility] [employer], gas, oil, or water [employer] threatened to shut off services in your [...] Info) Description 01/24/2024 9:00 AM CDT [facility] [address] [facility] [address] [place] [phone] 03/14/2024 2:00 PM WIRELESS TELEGRAPHER Appointment [facility] Neurosurgery/Ortho Spine [address] [facility] [place] [place] [address] Brandon Kessler MD [address] [place] [address] 03/20/2024 11:15 AM WIRELESS TELEGRAPHER Appointment Rheumatology at [facility] [place] [address] [address] [address] [place] [address] Desilet, Luke W, DO [address] [place] [address] documented as of this encounter Procedures Procedure Name Priority Date/Time Associated Diagnosis Comments TP/CREA RATIO, URINE Routine 12/29/2023 9:02 AM CDT Systemic lupus erythematosus, unspecified SLE type, unspecified organ involvement status (HRC) documented in this encounter Results * TP/Crea Ratio, Urine (12/29/2023 9:02 AM CDT) TP/Creat Ratio, Urine Random 0.05 0.00 - 0.20 12/29/2023 2:52 PM CDT [facility] Total Protein, Urine, Random 2 0 - 14 mg/dL 12/29/2023 2:52 PM CDT [facility] Creatinine, Urine, Random 41 >20 mg/dL mg/dL 12/29/2023 2:52 PM CDT [facility] Urine Non-blood Collection / Unknown 12/29/2023 9:02 AM CDT 12/29/2023 9:02 AM CDT Narrative [facility] - 12/29/2023 2:52 PM CDT Low urine creatinine values coupled with low urine protein values can artifactually increase the urine protein/creatinine results. Correlate results of ratio with creatinine results. Freeman Fong Desilet DO LAB_1 Performing Organization Address City/State/[facility] Co de Phone Number [facility] [address] documented in this encounter Visit Diagnoses Diagnosis Systemic lupus erythematosus, unspecified SLE type, unspecified organ involvement status (HRC) documented in this encounter Care Teams Billposting Supervisor Relationship Specialty Start Date End Date Dalton Esqueda MD [address] [place] [address] PCP - General Family Practice 06/23/23 documented as of this encounter
--- OUTSIDE RECORDS SUMMARY | 2024-01-14 13:36 | XMS_ITS | Encounter Summary ---
Author Organization [employer] Address [address] [place] [address] Care Team Providers Care Technical Sourcing Recruiter Name Role Phone Dalton Esqueda MD Primary Care Provider Encounter Details Date Type Department Care Team (Late st Contact Info) Description 12/08/2023 Notes/Orders [facility] Cardiology [address] [place] [address]. [place], [place] [id number] Wilfredo Howell III, MD [address] [place], [place] [phone] Social History Tobacco Use Types Packs/Day Years Used Date Smoking Tobacco: Former Cigarettes Smokeless Tobacco: Never Alcohol Use Standard Drinks/Week Comments Not Currently 0 (1 standard drink = 0.6 oz pur e alcohol) [facility] Utilities Answer Date Recorded In the past 12 months has [employer], gas, oil, or water [employer] threatened to shut off services in your [...] place to sleep or slept in a prison (including now)? No 11/08/2023 Sex and Gender Information Value Date Recorded Sex Assigned at Not on file Gender Identity Female 12/21/2023 11:58 AM CDT Sexual Orientation Not on file documented as of this encounter Progress Notes * Yanci Adkins RN - 12/08/2023 8:57 AM CDT PA initiated for Praluent. Approved Prior Authorization Portal Prior authorization approved Payer: [facility] Note from payer: Request Reference Number: [id number]. PRALUENT INJ 75MG/ML is approved through 04/24/2024. Your patient may now fill this prescription and it will be covered. Approval Details Authorization number: [id number] Authorized from December 07, 2023 to April 24, 2024 Electronic appeal: Supported Appeal deadline: December 14, 2023 (In 6 days) View History Pharmacy called and notified of PA approval. documented in this encounter Plan of Treatment Upcoming Encounters Date Type Department Care Team (Late st Contact Info) Description 01/24/2024 9:00 AM CDT Appointment [facility] [address] Electrophysiology [address] [place] [address] 03/14/2024 2:00 PM SOCIAL MEDIA MARKETER Appointment [facility] Neurosurgery/Ortho Spine [address] [place] [address]. [place] [address] Brandon Kessler MD [address] [place] [address] 03/20/2024 11:15 AM SOCIAL MEDIA MARKETER Appointment Rheumatology at [facility] [place] [address] [facility] [address] [place] [address] Desilet, Freeman W, DO [address] [place] [address] documented as of this encounter Visit Diagnoses Not on filedocumented in this encounter Care Teams Technical Sourcing Recruiter Relationship Specialty Start Date End Date Dalton Esqueda MD [address] [place] [address] PCP - General Family Practice 06/23/23 documented as of this encounter
--- OUTSIDE RECORDS SUMMARY | 2024-01-14 13:36 | XMS_ITS | Encounter Summary ---
Author Organization [employer] Address [address] [place] [address] Care Team Providers Care Casino Gaming Inspector Name Role Phone Dalton Esqueda MD Primary Care Provider [phone] Reason for Visit * Reason Comments Hypertension Encounter Details Date Type Department Care Team (Late st Contact Info) Description 11/17/2023 Telephone [facility] Cardiology [employer] [place] [address] Wilfredo Howell III, MD [address] [place] [address] Hypertension Social History Tobacco Use Types Packs/Day Years Used Date Smoking Tobacco: Former Cigarettes Smokeless Tobacco: Never Alcohol Use Standard Drinks/Week Comments Not Currently 0 (1 standard drink = 0.6 oz pur e alcohol) [facility] Utilities Answer Date Recorded In the past 12 months has [employer] gas, oil, or water [employer] threatened to shut off services in [...] Info) Description 01/24/2024 9:00 AM CDT Appointment [place] [facility] [place] [address] Electrophysiology [address] [place] [phone] 03/14/2024 2:00 PM SEROLOGY TECHNICIAN Appointment [facility] Neurosurgery/Ortho Spine [address] [place] [address] Brandon Kessler MD [address] [place] [address] 03/20/2024 11:15 AM SEROLOGY TECHNICIAN Appointment Rheumatology at [facility] [place] [address] [address] [address] [place] [address] Freeman Lopez, DO [address] [place] [address] documented as of this encounter Visit Diagnoses Not on filedocumented in this encounter Care Teams Casino Gaming Inspector Relationship Specialty Start Date End Date Dalton Esqueda MD [address] [place] [address] PCP - General Family Practice 06/23/23 documented as of this encounter
--- OUTSIDE RECORDS SUMMARY | 2024-01-14 13:36 | XMS_ITS | Encounter Summary ---
Author Organization [employer] Address [address] [place] [address] Care Team Providers Care Aquatics Lifeguard Name Role Phone Dalton Esqueda MD Primary Care Provider [phone] Reason for Visit * Reason Comments Follow-up Encounter Details Date Type Department Care Team (Late st Contact Info) Description 12/15/2023 12:40 PM CDT Office Visit [facility] [address] Cardiology [address] [place] [address] Rosa Elena Huynh PA-C [address] [place], [place] [phone] Pre-op exam (Primary Dx); Hypertension, unspecified type (HRC); Hyperlipidemia, unspecified hyperlipidemia type (HRC); Hypertensive emergency; SSS (sick sinus syndrome) (HRC); Cardiac pacemaker in situ; Sinus bradycardia; Chronotropic incompetence Social History Tobacco Use Types Packs/Day Years Used Date Smoking Tobacco: Former Cigarettes Smokeless Tobacco: Never Alcohol Use Standard Drinks/Week Comments Not Currently 0 (1 standard drink = 0.6 oz pur e alcohol) [facility] Utilities Answer Date Recorded In the past 12 months has e electric, gas, oil, or water [employer] threatened to shut off services in your [...] Us: For routine appointment scheduling, please call [phone]. If you have medical questions or concerns, please contact my nurse Traci at [phone] Thank you for choosing [facility] Rosa Elena Huynh PA-C Department of Cardiology documented in this encounter Progress Notes * Rosa Elena Huynh PA-C - 12/15/2023 12:40 PM CDT Cardiology Clinic Progress Note 12/15/2023 Nicolle Covington [id number] [facility] Chief Executive Officer: Dr. Howell SUBJECTIVE: Nicolle Covington is a pleasant 68 y.o. female who presents to clinic today for follow up of hypertensive urgency/emergency. She is a history of peripheral artery disease, cerebral aneurysm, fibromyalgia, uncontrolled hypertension leading to hypertensive urgency (intolerance to several medications, limiting therapy), lupus, tobacco abuse, and obstructive sleep apnea. She was recently admitted to [facility] 716 to 11/13/2023 with hypertensive urgency. Started [...] (165.1 cm) Wt 131 lb 6.4 oz (22242 g) BMI 21.87 kg/m?? Estimated body mass index is 21.87 kg/m?? as calculated from the following: Height as of this encounter: 5' 5 (165.1 cm). Weight as of this encounter: 131 lb 6.4 oz (22376 g). General Appearance: No apparent distress. Pleasant, [...] 11/11/2023 PAD. Follows with vascular surgery at [facility] Tobacco abuse, hx of. Cerebral aneurysm, right [...] iliac intervention through vascular surgery team at [facility] scheduled for 01/12/24, no cardiac contraindication to proceeding with this Rosa Elena Huynh PA-C Department of Cardiology My total time was 30 minutes with 20 minutes spent in person reviewing medications, lab results, and plan of care. documented in this encounter Plan of Treatment Upcoming Encounters Date Type Department Care Team (Late st Contact Info) Description 01/24/2024 9:00 AM CDT Appointment [facility] [address] Electrophysiology [address] [place] [address] 03/14/2024 2:00 PM SKI INSTRUCTOR Appointment [facility] Neurosurgery/Ortho Spine [address] [place] [address]. [place] [address] Brandon Kessler MD [address] [place] [address] 03/20/2024 11:15 AM SKI INSTRUCTOR Appointment Rheumatology at [facility] [place] [address] [address] [address] [place] [address] Desilet, Freeman W, DO [address] [place], [place] [address] documented as of this encounter Procedures Procedure Name Priority Date/Time Associated Diagnosis Comments ECG 12 LEAD OUTPATIENT Routine 12/15/2023 12:40 PM CDT Pre-op exam documented in this encounter Results * (ABNORMAL) Basic Metabolic Panel (12/15/2023 1:14 PM CDT) Sodium 137 136 - 145 mmol/L 12/15/2023 5:32 PM [facility] Potassium 5.1 3.5 - 5.1 mmol/L 12/15/2023 5:32 PM [facility] Chloride 103 98 - 109 mmol/L 12/15/2023 5:32 PM [facility] CO2 20 20 - 29 mmol/L 12/15/2023 5:32 PM [facility] Anion Gap 14 6 - 16 mmol/L 12/15/2023 5:32 PM [facility] Calcium 11.1(H) 8.4 - 10.4 mg/dL 12/15/2023 5:32 PM [facility] Comment:Low serum albumin ma y artificially lower total calcium, without impacting ionized calcium concentrations. If patient has or is at risk for hypoalbuminemia, consider ionized serum calcium to more accurately assess calcium status. BUN 57(H) 7 - 26 mg/dL 12/15/2023 5:32 PM [facility] Creatinine 1.09(H) 0.55 - 1.02 mg/dL 12/15/2023 5:32 PM [facility] Glucose 119(H) 70 - 100 mg/dL 12/15/2023 5:32 PM [facility] Comment:The given reference range is for the fasting state. Non-fasting reference range for glucose is 70 - 180 mg/dL. GFR, Estimated 55(L) >60 mL/min/1. 73m2 12/15/2023 5:32 PM [facility] Hours Fasting 0.0 8 - 12 Hours 12/15/2023 5:32 PM [facility] Comment:Patient has indicate d a non-fasting status. Blood Venipuncture / Unknown 12/15/2023 1:14 PM CDT 12/15/2023 1:40 PM [facility] - 12/15/2023 5:32 PM T The National Kidney Disease Education Program suggests measuring Cystatin C in patients with eGFRcrea of 45 to 59 ml/min/1.73^2 who do not have other markers of kidney damage (i.e. elevated urine Albumin/Creatinine Ratio or a prior Cystatin C confirming the presence of chronic kidney disease). Rosa Elena Huynh PA-C LAB_1 Performing Organization Address [facility] Co de Phone Number [facility] [address] [place] [address] * ECG 12 Lead Outpatient (12/15/2023 12:40 PM CDT) Ventricular Rate 65 BPM [facility]USE [facility] Atrial Rate 65 BPM [facility]USE [facility] P-R Interval 204 ms MUSE [facility] QRS Duration 90 ms MUSE [facility]HP QT 382 ms MUSE [facility]HP QTc 397 ms MUSE GHP P Cuddy -3 degrees MUSE GHP R Cuddy 35 degrees MUSE GHP T Cuddy 66 degrees MUSE GHP 12/15/2023 12:4 0 PM CDT Narrative [facility] - 12/15/2023 4:07 PM CDT Atrial-paced rhythm Poor R wave progression Abnormal ECG When compared with ECG of 12-NOV-2023 06:51, No significant change was found Confirmed by Christopher Sosa ([id number]) on 12/15/2023 4:07:32 PM Procedure Note Lemuel Sosa MD - 12/15/2023 Atrial-paced rhythm Poor R wave progression Abnormal ECG When compared with ECG of 12-NOV-2023 06:51, No significant change was found Confirmed by Christopher Sosa ([id number]) on 12/15/2023 4:07:32 PM Rosa Elena Huynh PA-C PN ECG ORDERABLES Performing Organization Address [facility] Co de Phone Number [facility] [address] [place] [address] documented in this encounter Visit Diagnoses Diagnosis Pre-op exam- Primary Preoperative examination, unspecified Hypertension, unspecified type (HRC) Hyperlipidemia, unspecified hyperlipidemia type (HRC) Hypertensive emergency Unspecified essential hypertension SSS (sick sinus syndrome) (HRC) Sinoatrial node dysfunction Cardiac pacemaker in situ Sinus bradycardia Other specified cardiac dysrhythmias Chronotropic incompetence Other specified conduction disorder documented in this encounter Care Teams Aquatics Lifeguard Relationship Specialty Start Date End Date Dalton Esqueda MD [address] [place] [address] PCP - General Family Practice 06/23/23 documented as of this encounter
--- OUTSIDE RECORDS SUMMARY | 2024-01-14 13:36 | XMS_ITS | Encounter Summary ---
Author Organization [employer] Address [address] [place] [address] Care Team Providers Care Dry Kiln Operator Helper Name Role Phone Dalton Esqueda MD Primary Care Provider Reason for Visit * Reason Comments Follow-up Encounter Details Date Type Department Care Team (Late st Contact Info) Description 01/06/2024 1:30 PM CDT [facility] [address] Cardiology [address] [place] [address] Wilfredo Howell III, MD [address] [place], [place] [address] Hypertension, unspecified type (HRC) (Primary Dx); SSS (sick sinus syndrome) (HRC); Cardiac pacemaker in situ; PAD (peripheral artery disease) (HRC); Mixed hyperlipidemia (HRC) Social History Tobacco Use Types Packs/Day Years Used Date Smoking Tobacco: Former Cigarettes Smokeless Tobacco: Never Alcohol Use Standard Drinks/Week Comments Not Currently 0 (1 standard drink = 0.6 oz pur e alcohol) [facility] Utilities Answer Date Recorded In the past 12 months has th e electric, gas, oil, or water [email or web address] threatened to shut off services in your [...] place to sleep or slept in a fdc (including now)? No 11/08/2023 Sex and Gender [...] permanent pacemaker implant. Richa was admitted to [facility] in October of this year. She was [...] process of scheduling a peripheral angiogram at [facility]. She was unable to tolerate the addition [...] every week. Take 30 minutes before first ngns-aeolg-jqqmajfayj on mornings. Avoid lying down for 30 [...] Take by mouth daily. ProOmega Curcumin by [employer]: Take 3 capsules by mouth daily ezetimibe [...] (165.1 cm) Wt 132 lb 3.2 oz (95603 g) BMI 22.00 kg/m?? Estimated body mass index is 22 kg/m?? as calculated from the following: Height as of this encounter: 5' 5 (165.1 cm). Weight as of this encounter: 132 lb 3.2 oz (81262 g). GEN- patient awake alert and conversant [...] medical records, cardiac tests, and time spent dbbh-gh-edpi with patient. documented in this encounter Plan of Treatment Upcoming Encounters Date Type Department Care Team (Late st Contact Info) Description 01/24/2024 9:00 AM CDT Appointment [facility] [address] Electrophysiology [address] [place] [address] 03/14/2024 2:00 PM KINDERGARTNER Appointment [facility] Neurosurgery/Ortho Spine [address] [place] [address]. [place] [address] Brandon Kessler MD [address] [place] [address] 03/20/2024 11:15 AM KINDERGARTNER Appointment Rheumatology at [facility] [place] [address] [address] [address] [place] [address] Desilet, Freeman W, DO [address] [place], [place] [address] documented as of this encounter Visit Diagnoses Diagnosis Hypertension, unspecified type (HRC)- Primary SSS (sick sinus syndrome) (HRC) Sinoatrial node dysfunction Cardiac pacemaker in situ PAD (peripheral artery disease) (HRC) Unspecified disorders of arteries and arterioles Mixed hyperlipidemia (HRC) Mixed hyperlipidemia documented in this encounter Care Teams Dry Kiln Operator Helper Relationship Specialty Start Date End Date Dalton Esqueda MD [address] [place] [address] PCP - General Family Practice 06/23/23 documented as of this encounter
--- OUTSIDE RECORDS SUMMARY | 2024-01-14 13:36 | XMS_ITS | Encounter Summary ---
Author Organization [employer] Address [address] [place] [address] Care Team Providers Care Games Manager Name Role Phone Dalton Esqueda MD Primary Care Provider Encounter Details Date Type Department Care Team (Late st Contact Info) Description 12/15/2023 1:20 PM CDT Lab Visit [facility] [address] [place] [address] Pre-op exam Social History Tobacco Use Types Packs/Day Years Used Date Smoking Tobacco: Former Cigarettes Smokeless Tobacco: Never Alcohol Use Standard Drinks/Week Comments Not Currently 0 (1 standard drink = 0.6 oz pur e alcohol) [facility] Utilities Answer Date Recorded In the past [address] [facility] [employer], gas, oil, or water [employer] threatened to shut off services in your [...] place to sleep or slept in a long-term (including now)? No 11/08/2023 Sex and Gender Information Value Date Recorded Sex Assigned at Not on file Gender Identity Female 12/21/2023 11:58 AM CDT Sexual Orientation Not on file documented as of this encounter Plan of Treatment Upcoming Encounters Date Type Department Care Team (Late st Contact Info) Description 01/24/2024 9:00 AM CDT Appointment [facility] [address] Electrophysiology [address] [place] [address] 03/14/2024 2:00 PM OCCUPATIONAL HEALTH MANAGER Appointment [facility] Neurosurgery/Ortho Spine [address] [place] [address]. [place] [address] Brandon Kessler MD [address] [place] [address] 03/20/2024 11:15 AM OCCUPATIONAL HEALTH MANAGER Appointment Rheumatology at [facility] [place] [address] [address] [address] [place] [address] Desilet, Freeman W, DO [address] [place] [address] documented as of this encounter Procedures Procedure Name Priority Date/Time Associated Diagnosis Comments BASIC METABOLIC PANEL Routine 12/15/2023 1:14 PM CDT Pre-op exam documented in this encounter Results * (ABNORMAL) Basic Metabolic Panel (12/15/2023 1:14 PM CDT) Sodium 137 136 - 145 mmol/L 12/15/2023 5:32 PM [facility] Potassium 5.1 3.5 - 5.1 mmol/L 12/15/2023 5:32 PM [facility] Chloride 103 98 - 109 mmol/L 12/15/2023 5:32 PM [facility] CO2 20 20 - 29 mmol/L 12/15/2023 5:32 PM [facility] Anion Gap 14 6 - 16 mmol/L 12/15/2023 5:32 PM [facility] Calcium 11.1(H) 8.4 - 10.4 mg/dL 12/15/2023 5:32 PM [facility] Comment:Low serum albumin ma y artificially lower total calcium, without impacting ionized calcium concentrations. If patient has or is at risk for hypoalbuminemia, consider ionized serum calcium to more accurately assess calcium status. BUN 57(H) 7 - 26 mg/dL 12/15/2023 5:32 PM [facility] Creatinine 1.09(H) 0.55 - 1.02 mg/dL 12/15/2023 5:32 PM [facility] Glucose 119(H) 70 - 100 mg/dL 12/15/2023 5:32 PM [facility] Comment:The given reference range is for the fasting state. Non-fasting reference range for glucose is 70 - 180 mg/dL. GFR, Estimated 55(L) >60 mL/min/1. 73m2 12/15/2023 5:32 PM [facility] Hours Fasting 0.0 8 - 12 Hours 12/15/2023 5:32 PM [facility] Comment:Patient has indicate d a non-fasting status. Blood Venipuncture / Unknown 12/15/2023 1:14 PM CDT 12/15/2023 1:40 PM CDT Narrative [facility] - 12/15/2023 5:32 PM CDT The National Kidney Disease Education Program suggests measuring Cystatin C in patients with eGFRcrea of 45 to 59 ml/min/1.73^2 who do not have other markers of kidney damage (i.e. elevated urine Albumin/Creatinine Ratio or a prior Cystatin C confirming the presence of chronic kidney disease). Rosa Elena Huynh PA-C LAB_1 [facility] [address] [place] [address], [facility] documented in this encounter Visit Diagnoses Diagnosis Pre-op exam Preoperative examination, unspecified documented in this encounter Care Teams Games Manager Relationship Specialty Start Date End Date Dalton Esqueda MD [address] [place] [address] PCP - General Family Practice 06/23/23 documented as of this encounter
--- OUTSIDE RECORDS SUMMARY | 2024-01-14 13:36 | XMS_ITS | Encounter Summary ---
Author Organization formerly [facility] Address [address] [place] [address] Care Team Providers Care Textile Colorist Formulator Name Role Phone Dalton Esqueda MD Primary Care Provider [phone] Encounter Details Date Type Department Care Team (Late st Contact Info) Description 11/17/2023 E-Visit [facility] [address] [place] [address] [place], [place] [address] Social History Tobacco Use Types Packs/Day Years Used Date Smoking Tobacco: Former Cigarettes Smokeless Tobacco: Never Alcohol Use Standard Drinks/Week Comments Not Currently 0 (1 standard drink = 0.6 oz pur e alcohol) [facility] Utilities Answer Date Recorded In the past 12 months has [facility] [employer], gas, oil, or water [employer] threatened to shut off services in your [...] Info) Description 01/24/2024 9:00 AM CDT Appointment [facility] [address] [facility] [address] [place] [phone] 03/14/2024 2:00 PM SCULPTURE INSTRUCTOR Appointment [facility] Neurosurgery/Ortho Spine [address] [facility] [place] [address] Brandon Kessler MD [address] [place] [address] 03/20/2024 11:15 AM SCULPTURE INSTRUCTOR Appointment Rheumatology at [facility] [place] [address] [address] [address] [place] [address] Desilet, Freeman W, DO [address] [place] [address] documented as of this encounter Visit Diagnoses Not on filedocumented in this encounter Care Teams Textile Colorist Formulator Relationship Specialty Start Date End Date Dalton Esqueda MD [address] [place] [address] PCP - General Family Practice 06/23/23 documented as of this encounter
--- OUTSIDE RECORDS SUMMARY | 2024-01-14 13:36 | XMS_ITS | Encounter Summary ---
Author Organization [employer] Address [address] [place] [address] Care Team Providers Care Head Of Transport Logistics Name Role Phone Dalton Esqueda MD Primary Care Provider [phone] Reason for Referral * Medication Prior Authorization - Authorized Specialty Diagnoses / Procedures Referred By Jonathan mora [place] [address] [place] [address] Referral ID Status Reason Start Date Expiration Date V isits Requested Visits Authorized [id number] Authorized 12/07/2023 04/24/2024 1 1 Encounter Details Date Type Department Care Team (Late st Contact Info) Description 12/07/2023 Notes/Orders [facility] Card[facility] [address] [place] [address]. [place], [place] [address] Wilfredo Howell III, MD [address] [place] [address] Social History Tobacco Use Types Packs/Day Years Used Date Smoking Tobacco: Former Cigarettes Smokeless Tobacco: Never Alcohol Use Standard Drinks/Week Comments Not Currently 0 (1 standard drink = 0.6 oz pur e alcohol) [facility] Utilities Answer Date Recorded In the past 12 months has th e electric, gas, oil, or water [employer] threatened to shut off services in your [...] place to sleep or slept in a penitentiary (including now)? No 11/08/2023 Sex and Gender [...] Info) Description 01/24/2024 9:00 AM CDT Appointment [facility] [address] Electrophysiology [address] [place] [address] 03/14/2024 2:00 PM TRAFFIC COORDINATOR Appointment [facility] Neurosurgery/Ortho Spine [address] [place] [address]. [place] [address] Brandon Kessler MD [address] [place] [address] 03/20/2024 11:15 AM TRAFFIC COORDINATOR Appointment Rheumatology at [facility] [place] [address] [address] [address] [place] [address] DesiletFreeman W, DO [address] [place] [address] documented as of this encounter Visit Diagnoses Not on filedocumented in this encounter Care Teams Head Of Transport Logistics Relationship Specialty Start Date End Date Dalton Esqueda MD [address] [place] [address] PCP - General Family Practice 06/23/23 documented as of this encounter
--- OUTSIDE RECORDS SUMMARY | 2024-01-14 13:36 | XMS_ITS | Encounter Summary ---
Author Organization [employer] Address [address] [place] [address] Care Team Providers Care Bundle Wrapper Name Role Phone Dalton Esqueda MD Primary Care Provider Encounter Details Date Type Department Care Team (Late st Contact Info) Description 12/22/2023 11:20 AM CDT Lab Visit [facility] [address] [place], [place] [address] Systemic lupus erythematosus, unspecified SLE type, unspecified organ involvement status (HRC) Social History Tobacco Use Types Packs/Day Years Used Date Smoking Tobacco: Former Cigarettes Smokeless Tobacco: Never Alcohol Use Standard Drinks/Week Comments Not Currently 0 (1 standard drink = 0.6 oz pur e alcohol) [facility] Utilities Answer Date Recorded In the past 12 months has [facility] [employer], gas, oil, or water [employer] threatened to shut off services in your [...] place to sleep or slept in a long term (including now)? No 11/08/2023 Sex and Gender Information Value Date Recorded Sex Assigned at Not on file Gender Identity Female 12/21/2023 11:58 AM CDT Sexual Orientation Not on file documented as of this encounter Plan of Treatment Upcoming Encounters Date Type Department Care Team (Late st Contact Info) Description 01/24/2024 9:00 AM CDT [facility]ment [facility] [address] [facility] [address] [place] [phone] 03/14/2024 2:00 PM CHILDREN'S NURSERY ASSISTANT Appointment [facility] Neurosurgery/Ortho Spine [address] [place] [address] Brandon Kessler MD [address] [place] [address] 03/20/2024 11:15 AM CHILDREN'S NURSERY ASSISTANT Appointment Rheumatology at [facility] [place] [address] [address] [address] [place] [address] Desilet, Freeman W, DO [address] [place] [address] documented as of this encounter Procedures Procedure [...] 0.00 - 0.20 12/29/2023 2:52 PM CDT [facility] Total Protein, Urine, Random 2 0 - 14 mg/dL 12/29/2023 2:52 PM CDT [facility] Creatinine, Urine, Random 41 >20 mg/dL mg/dL 12/29/2023 2:52 PM CDT [facility] Urine Non-blood Collection / Unknown 12/29/2023 9:02 AM CDT 12/29/2023 9:02 AM CDT Narrative [facility] - 12/29/2023 2:52 PM CDT Low urine creatinine values coupled with low urine protein values can artifactually increase the urine protein/creatinine results. Correlate results of ratio with creatinine results. Luke W Desilet DO LAB_1 [facility] [address] * (ABNORMAL) Urinalysis Routine, Micro/Culture if Pos: Clean Catch (12/22/2023 12:00 PM CDT) Urine Culture Comment Urinalysis results do not meet criteria for urine culture reflex. 12/22/2023 12:10 PM [facility] Urine Color Straw 12/22/2023 12:10 PM [facility] Urine Clarity Clear Clear 12/22/2023 12:10 PM [facility] Specific [place], Urine <=1.005(A) 1.005 - 1.030 12/22/2023 12:10 PM [facility] PH Urine 6.0 5.0 - 8.0 12/22/2023 12:10 PM [facility] Protein, Urine Qual (mg/dL) Negative Neg/Trace 12/22/2023 12:10 PM [facility] Glucose Urine Qual (mg/dL) Negative Negative 12/22/2023 12:10 PM [facility] Ketones, Urine (mg/dL) Negative Negative 12/22/2023 12:10 PM [facility] Urobilinogen, Urine (EU/dL) 0.2 <2.0 12/22/2023 12:10 PM [facility] Bilirubin Urine Negative Negative 12/22/2023 12:10 PM [facility] Blood, Urine Negative Neg/Trace 12/22/2023 12:10 PM [facility] Nitrite Urine Negative Negative 12/22/2023 12:10 PM [facility] Leukocyte Est. Negative Negative 12/22/2023 12:10 PM [facility] Urine Source Clean Catch 12/22/2023 12:10 PM [facility] Urine URINE SPECIMEN COLLECTION, CLEAN CATCH / Unknown Non-blood Collection / Unknown 12/22/2023 12:00 PM CDT 12/22/2023 12:00 PM CDT Luke W Desilet DO LAB_1 [facility] [address] [place] [address], [facility] * (ABNORMAL) Complete Blood Count-W/Diff (12/22/2023 11:23 AM CDT) WBC 7.3 3.5 - 10.5 x10(9)/L 12/22/2023 11:28 AM [facility] RBC 3.88(L) 3.90 - 5.03 x10(12)/L 12/22/2023 11:28 AM [facility] Hemoglobin 11.7(L) 12.0 - 15.5 g/dL 12/22/2023 11:28 AM [facility] HCT 36.4 34.9 - 44.5 % 12/22/2023 11:28 AM [facility] MCV 93.8 80.0 - 100.0 fL 12/22/2023 11:28 AM [facility] MCH 30.2 27.6 - 33.3 pg 12/22/2023 11:28 AM [facility] MCHC 32.1 31.5 - 35.2 g/dL 12/22/2023 11:28 AM [facility] RDW 13.7 11.9 - 15.5 % 12/22/2023 11:28 AM [facility] Platelets 265 150 - 450 x10(9)/L 12/22/2023 11:28 AM [facility] Automated NRBC 0 <=0 /100 WBC 12/22/2023 11:28 AM [facility] Neutrophil Absolute 5.7 1.7 - 7.0 10(9)/L 12/22/2023 11:28 AM [facility] Lymphocyte Absolute 1.0 1.0 - 4.8 10(9)/L 12/22/2023 11:28 AM [facility] Monocyte Absolute 0.4 0.2 - 0.9 10(9)/L 12/22/2023 11:28 AM CDT [facility] Eosinophil Absolute 0.1 0.0 - 0.5 10(9)/L 12/22/2023 11:28 AM CDT [facility] Basophil Absolute 0.0 0.0 - 0.3 10(9)/L 12/22/2023 11:28 AM CDT [facility] Immature Granulocyte % 0.4 0.0 - 0.5 % 12/22/2023 11:28 AM T [facility] Blood Venipuncture / Unknown 12/22/2023 11:23 AM CDT 12/22/2023 11:23 AM CDT [facility] The [employer] LAB_1 Performing Organization Address City/[facility]/ZIP Co de Phone Number [facility] [address] [place] [address] * DNA Double Stranded Antibody IgG (ALBA) (12/22/2023 11:23 AM CDT) Pathologist [facility] Anti-DNA Antibody IgG 15 <200 IU 12/27/2023 2:12 PM CDT [facility] Anti-DNA Antibody IgG Interpretation Negative Negative 12/27/2023 2:12 PM CDT [facility] Blood Venipuncture / Unknown 12/22/2023 11:23 AM CDT 12/22/2023 11:23 AM CDT Narrative [facility] - 12/27/2023 2:12 PM CDT The following results were obtained with the [place] [employer] QUANTA Lite dsDNA ALBA. dsDNA values obtained with different manufacturers' assay methods may not be used interchangeably. [employer] Service Managementilet DO LAB_1 [facility] [address] [place], [place] [address] * C4 Complement (12/22/2023 11:23 AM CDT) C4 Complement 15.0 15.0 - 57.0 mg/dL 12/22/2023 4:07 PM CDT [facility] Blood Venipuncture / Unknown 12/22/2023 11:23 AM CDT 12/22/2023 11:23 AM CDT Freeman Fong Desilet DO LAB_1 Performing Organization Address City/[facility]/ZIP Co de Phone Number [facility] [address] * C3 Complement (12/22/2023 11:23 AM CDT) C3 Complement 83 83 - 193 mg/dL 12/22/2023 4:07 PM CDT [facility] Blood Venipuncture / Unknown 12/22/2023 11:23 AM CDT 12/22/2023 11:23 AM CDT Freeman Fong Desilet DO LAB_1 Performing Organization Address [facility] Co de Phone Number [facility] [address] documented in this encounter Visit Diagnoses Diagnosis Systemic lupus erythematosus, unspecified SLE type, unspecified organ involvement status (HRC) documented in this encounter Care Teams Bundle Wrapper Relationship Specialty Start Date End Date Dalton Esqueda MD [address] [place] [address] PCP - General Family Practice 06/23/23 documented as of this encounter
--- OUTSIDE RECORDS SUMMARY | 2024-01-14 13:36 | XMS_ITS | Encounter Summary ---
Author Organization [employer] Address [address] [place] [address] Care Team Providers Care Nail Mill Worker Name Role Phone Dalton Esqueda MD Primary Care Provider [phone] Reason for Visit * Reason Comments Follow-up Encounter Details Date Type Department Care Team (Late st Contact Info) Description 01/11/2024 Telephone Rheumatology at [place] [address] [place] [address]. [place] [address] DesileFreeman mora, DO [address] [place] [phone] Follow-up Social History Tobacco Use Types Packs/Day Years Used Date Smoking Tobacco: Former Cigarettes Smokeless Tobacco: Never Alcohol Use Standard Drinks/Week Comments Not Currently 0 (1 standard drink = 0.6 oz pur e alcohol) [facility] Utilities Answer Date Recorded In [...] note from 12/22/23 was faxed today to [facility] ([place]) at [phone]. * Amanda French RN - 01/11/2024 11:45 AM CDT Zoila, nurse from [facility], called requesting we fax over the last office visit note (12/22/23) to them. Patient is scheduled to have an angiogram and they need to know provider's medication instructions for the procedure. documented in this encounter Plan of Treatment Upcoming Encounters Date Type Department Care Team (Late st Contact Info) Description 01/24/2024 9:00 AM CDT Appointment [facility] [address] [facility] [address] [place] [address] 03/14/2024 2:00 PM TRACTOR TRAILER TECHNICIAN Appointment [facility] Neurosurgery/Ortho Spine [address] [place] [address]. [place] [address] Brandon Kessler MD [address] [place] [address] 03/20/2024 11:15 AM TRACTOR TRAILER TECHNICIAN Appointment Rheumatology at [facility] [place] [address] [address] [address] [place] [address] Desilet, Luartie W, DO [address] [place] [address] documented as of this encounter Visit Diagnoses Not on filedocumented in this encounter Care Teams Nail Mill Worker Relationship Specialty Start Date End Date Dalton Esqueda MD [address] [place] [address] PCP - General Family Practice 06/23/23 documented as of this encounter
--- OUTSIDE RECORDS SUMMARY | 2024-01-14 13:36 | XMS_ITS | Encounter Summary ---
Author Organization [employer] Address [address] [place] [address] Care Team Providers Care Inspector Assembly Name Role Phone Dalton Esqueda MD Primary Care Provider [phone] Reason for Visit * Reason Comments Other The following lab te st(s) utpcr are unable to be performed and have been cancelled. Please reorder the test(s) and contact the patient if still clinically indicated.Terri Galeana 12/22/2023, 4:49 PM Encounter Details Date Type Department Care Team (Late st Contact Info) Description 12/22/2023 Telephone [place] [address] [place] [address] Desilet, Freeman W, DO [address] [place] [address] Other (The following lab test(s) [...] drink = 0.6 oz pur e alcohol) [facility] Utilities Answer Date Recorded In the past 12 months has [employer], [employer], or [employer] threatened to shut off services in your [...] place to sleep or slept in a group home (including now)? No 11/08/2023 Sex and [...] Info) Description 01/24/2024 9:00 AM CDT Appointment [facility] [address] Electrophysiology [address] [place] [address] 03/14/2024 2:00 PM INSPECTOR FIBROUS WALLBOARD Appointment [facility] Neurosurgery/Ortho Spine [address] [facility], [place] [address] Brandon Kessler MD [address] [place] [phone] 03/20/2024 11:15 AM INSPECTOR FIBROUS WALLBOARD Appointment Rheumatology at [facility] [place] [address] [address] [address] [place] [address] Desilet, Luke W, DO [address] [place] [address] documented as of this encounter Visit Diagnoses Not on filedocumented in this encounter Care Teams Inspector Assembly Relationship Specialty Start Date End Date Dalton Esqueda MD [address] [place] [address] PCP - General Family Practice 06/23/23 documented as of this encounter
--- OUTSIDE RECORDS SUMMARY | 2024-01-14 13:36 | XMS_ITS | Encounter Summary ---
Author Organization [employer] Address [address] [place] [address] Care Team Providers Care Saturation Diver Name Role Phone Dalton Esqueda MD Primary Care Provider [phone] Reason for Visit * Reason Comments Follow-up Encounter Details Date Type Department Care Team (Late st Contact Info) Description 12/22/2023 10:45 AM CDT Office Visit Rheumatology at [facility] [address] [address] Desilet, Freeman Fong, DO [address] [place], [place] [address] Systemic lupus erythematosus, unspecified SLE type, unspecified [...] drink = 0.6 oz pur e alcohol) [facility] Utilities Answer Date Recorded In the [...] at this time. Keep working with the senior electrical controls engineer on adjusting your blood pressure medications. I will send my note to your senior electrical controls engineer as well. To help with reducing blood [...] with several outside rheumatologists (Dr. Louis at [facility] and Dr. Cordova at [facility]) - several prior medication intolerances as noted [...] 2023. 2. Osteoporosis -most recent DEXA scan ([facility]) July 2022 with osteoporosis, most severe T-score of -2.8 at the left femoral neck -long-term steroid use for lupus -previously on Evenity briefly but discontinued due to musculoskeletal pain. No prior reported bisphosphonate use prior to [facility]. -started oral alendronate 70 mg weekly February 2023 Rheumatologic Serologies: Positive: JUJU (1:2560 in speckled pattern), SSA, SSB, Ro 52, Ro 60, Negative: RF, CCP, dsDNA, Lyme, hepatitis-B core antibody, hepatitis-C antibody, hepatitis-B surface antigen, HIV antigen/antibody, SPEP Rheumatologic medications: Current: Mycophenolate mofetil (CellCept) 1000 mg twice a day Prednisone 7.5 mg daily (penitentiary) Hydroxychloroquine 200 mg daily (February 2023-present) Oral [...] Also saw vascular surgery in November at [facility] and is planning for aorta and iliac [...] relevant results: US CAROTID DUPLEX BILATERAL Order: [id number] Narrative VASCULAR ULTRASOUND REPORT NICOLLE COVINGTON : 1955 Study Date: 12/07/2023 8:22:07 AM Age: 68 years Tech: JAG Gender: F Referring MD: MITCHEL MARMOLEJO Site: [facility] Study performed: Carotid Indication for Study: follow-up [...] www.intersocietal.org/vascular US ANKLE BRACHIAL INDEX BILATERAL Order: [id number] Narrative VASCULAR ULTRASOUND REPORT NICOLLE COVINGTON : 1955 Study Date: 12/07/2023 8:16:00 AM Age: 68 years Tech: JAG Gender: F Referring MD: MITCHEL MARMOLEJO Site: [facility] Study performed: Lower extremity resting ISMAEL, (bilateral). [...] 168 Index +-----+ +--------+ +-----+ 0.97 163 CRIME SPECIALIST 89 0.53 +-----+ +--------+ +-----+ 0.94 158 DPA 79 0.47 +-----+ +--------+ +-----+ 0.60 101 Digit 1 54 0.32 +-----+ +--------+ +-----+ NEVA Araujo. Electronically signed on 12/07/2023 10:22:46 AM This study was performed and interpreted by a service accredited by the Intersocietal AccreditationCommission (IAC/Vascular), www.intersocietal.org/vascular Report generated by [employer]. US Abd Aorta Order: [id number] Narrative VASCULAR ULTRASOUND REPORT NICOLLE COVINGTON : 1955 Study Date: 12/07/2023 9:07:34 AM Age: 68 years Tech: JAG Gender: F Referring MD: MITCHEL MARMOLEJO Site: [facility] Vascular [facility] Study performed: Aorta, Iliac, (bilateral) Indication for [...] Intersocietal AccreditationCommission (IAC/Vascular), www.intersocietal.org/vascular Report generated by [employer]. XR Chest 2 Views Order: [id number] Status: Final result Visible to patient: Yes (seen) Next appt: Today at 10:45 AM in Rheumatology (Freeman Lopez DO) Details Reading Physician Reading Date Result Priority Delbert Puente MD [phone] 11/11/2023 Narrative & Impression IMPRESSION COMPARISON: 10/10/2023 FINDINGS: New 2-lead pacer in satisfactory position. No pneumothorax. Lungs are clear. The remainder of the examination is stable. Exam Ended: 11/11/23 19:41 Last Resulted: 11/11/23 19:54 XR Portable Chest 1 View Order: [id number] Status: Final result Visible to patient: Yes (seen) Next appt: Today at 10:45 AM in Rheumatology (Luke W Desilet, DO) Details Reading Physician Reading Date Result Priority Carlo Mejia MD [phone] 11/08/2023 Narrative & Impression IMPRESSION COMPARISON: None. FINDINGS: Normal cardiomediastinal silhouette and pulmonary vasculature. Lungs appear clear. No pneumothorax or pleural effusion. Surgical clips in the right neck. Exam Ended: 11/08/23 20:56 Last Resulted: 11/08/23 21:25 CT Angio Neck Head W IV Cont Order: [id number] Status: Final result Visible to patient: Yes (seen) Next appt: Today at 10:45 AM in Rheumatology (Luke W Desilet, DO) Details Reading Physician Reading Date Result Priority Olivier Cramer MD [phone] 11/08/2023 STAT Narrative & Impression IMPRESSION INDICATION: sams, htn, known aneurysms TECHNIQUE: CT angiogram of the [place] and CT angiogram of the [...] 15:23 CT Head WO IV Cont Order: [id number] Status: Final result Visible to patient: Yes (seen) Next appt: Today at 10:45 AM in Rheumatology (Freeman Lopez, ) Details Reading Physician Reading Date Result Priority Olivier Cramer MD [phone] 11/08/2023 STAT Narrative & Impression IMPRESSION COMPARISON: [...] year(s) Gender: Female Procedure Staff Interpreting Provider: FASUTO GARCIA MD Government Instructor: EE Ordering Provider: JOLEEN Cisneros Attending Physician: [...] vascular procedure in about 3 weeks at [facility] (aorta and iliac angiogram with possible left [...] 71 minutes including, but not limited to, eue-lddi-sz-face time spent reviewing records, counseling, and coordination of care. documented in this encounter Plan of Treatment Upcoming Encounters Date Type Department Care Team (Late st Contact Info) Description 01/24/2024 9:00 AM CDT Appointment [facility] [address] [facility] [address] [place] [address] 03/14/2024 2:00 PM CLOTHING DESIGNER Appointment [facility] Neurosurgery/Ortho Spine [address] [place] [address]. [place] [address] Brandon Kessler MD [address] [place] [address] 03/20/2024 11:15 AM CLOTHING DESIGNER Appointment Rheumatology at [facility] [place] [address] [facility] [address] [place] [address] Freeman Lopez DO [address] [place], [place] [phone] documented as of this encounter Results * (ABNORMAL) Urinalysis Routine, Micro/Culture if Pos: Clean Catch (12/22/2023 12:00 PM CDT) Urine Culture Comment Urinalysis results do not meet criteria for urine culture reflex. 12/22/2023 12:10 PM CDT [facility] Urine Color Straw 12/22/2023 12:10 PM CDT [facility] Urine Clarity Clear Clear 12/22/2023 12:10 PM CDT [facility] Specific [place], Urine <=1.005(A) 1.005 - 1.030 12/22/2023 12:10 PM [facility] PH Urine 6.0 5.0 - 8.0 12/22/2023 12:10 PM T [facility] Protein, Urine Qual (mg/dL) Negative Neg/Trace 12/22/2023 12:10 PM T [facility] Glucose Urine Qual (mg/dL) Negative Negative 12/22/2023 12:10 PM [facility] Ketones, Urine (mg/dL) Negative Negative 12/22/2023 12:10 PM T [facility] Urobilinogen, Urine (EU/dL) 0.2 <2.0 12/22/2023 12:10 PM T [facility] Bilirubin Urine Negative Negative 12/22/2023 12:10 PM T [facility] Blood, Urine Negative Neg/Trace 12/22/2023 12:10 PM [facility] Nitrite Urine Negative Negative 12/22/2023 12:10 PM [facility] Leukocyte Est. Negative Negative 12/22/2023 12:10 PM T [facility] Urine Source Clean Catch 12/22/2023 12:10 PM [facility] Urine URINE SPECIMEN COLLECTION, CLEAN CATCH / Unknown Non-blood Collection / Unknown 12/22/2023 12:00 PM CDT 12/22/2023 12:00 PM CDT Luke W Desilet DO LAB_1 Performing Organization Address City/State/[facility] Co de Phone Number [facility] [address] [place] [address] * DNA Double Stranded Antibody IgG (ALBA) (12/22/2023 11:23 AM CDT) Anti-DNA Antibody IgG 15 <200 IU 12/27/2023 2:12 PM CDT [facility] Anti-DNA Antibody IgG Interpretation Negative Negative 12/27/2023 2:12 PM CDT [facility] Blood Venipuncture / Unknown 12/22/2023 11:23 AM CDT 12/22/2023 11:23 AM CDT Narrative [facility] - 12/27/2023 2:12 PM CDT The following results were obtained with the [employer] QUANTA Lite dsDNA ALBA. dsDNA values obtained with different manufacturers' assay methods may not be used interchangeably. Freeman Lopez DO LAB_1 Performing Organization Address [facility] Phone Number [facility] [address] * C4 Complement (12/22/2023 11:23 AM CDT) C4 Complement 15.0 15.0 - 57.0 mg/dL 12/22/2023 4:07 PM CDT [facility] Blood Venipuncture / Unknown 12/22/2023 11:23 AM CDT 12/22/2023 11:23 AM CDT [facility] Performing Organization Address [facility] Phone Number [facility] [address] [place] [address] * C3 Complement (12/22/2023 11:23 AM CDT) C3 Complement 83 83 - 193 mg/dL 12/22/2023 4:07 PM CDT [facility] Blood Venipuncture / Unknown 12/22/2023 11:23 AM CDT 12/22/2023 11:23 AM CDT Freeman Lopez DO LAB_1 Performing Organization Address [facility] Phone Number [facility] [address] [place] [address] documented in this encounter Visit Diagnoses Diagnosis Systemic lupus erythematosus, unspecified SLE type, unspecified organ involvement status (HRC)- Primary High risk medication use Encounter for long-term (current) use of other medications Osteoporosis, unspecified osteoporosis type, unspecified pathological fracture presence (HRC) Essential hypertension (HRC) Unspecified essential hypertension Vaccine counseling Pre-op evaluation Preoperative examination, unspecified documented in this encounter Care Teams Saturation Diver Relationship Specialty Start Date End Date Dalton Esqueda MD [address] [place] [address] PCP - General Family Practice 06/23/23 documented as of this encounter
--- OUTSIDE RECORDS SUMMARY | 2024-01-14 13:36 | XMS_ITS | Encounter Summary ---
Author Organization [employer] Address [address] [place] [address] Care Team Providers Care Ethylbenzene Converter Operator Name Role Phone Dalton Esqueda MD Primary Care Provider [phone] Reason for Referral * (Routine) - New Request Specialty Diagnoses / Procedures Referred By Jonathan mora Referred To Contact Diagnoses SSS (sick sinus syndrome) (HRC) Cardiac pacemaker in situ Procedures Pacemaker Evaluation James Tejada MD [address] [place] [address] Referral ID Status Reason Start Date Expiration Date V isits Requested Visits Authorized [id number] New Request 11/22/2023 02/20/2025 1 1 Reason for Visit * Reason Comments Device Check Encounter Details Date Type Department Care Team (Late st Contact Info) Description 11/22/2023 8:45 AM CDT [facility] Electrophysiology [place] [address] SSS (sick sinus syndrome) (HRC) (Primary Dx); Cardiac pacemaker in situ Social History Tobacco Use Types Packs/Day Years Used Date Smoking Tobacco: Former Cigarettes Smokeless Tobacco: Never Alcohol Use Standard Drinks/Week Comments Not Currently 0 (1 standard drink = 0.6 oz pur e alcohol) [facility] Utilities Answer Date Recorded In the past 12 months has th e [employer], gas, oil, or water [employer] threatened to shut off services in your [...] 01/24/2024 9:00 AM CDT Appointment [facility] [address] Electrophysiology [address] [place] [address] 03/14/2024 2:00 PM SALESPERSON [employer]ANOS [employer] ORGANS Appointment [facility] Neurosurgery/Ortho Spine [address] [facility] [place] [address] Brandon Kessler MD [address] [place] [address] 03/20/2024 11:15 AM SALESPERSON [employer]OS [employer] OR[employer]ANS Appointment Rheumatology at [facility] [place] [address] [address] [address] [place] [address] Desilet, Freeman W, DO [address] [place], [place] [address] documented as of this encounter Procedures Procedure [...] atrial or ventricular high rate episodes noted. RESEARCH CENTER DIRECTOR <0.1%. Already enrolled in [facility], RTC in 3 months. Please contact [phone] if any questions. dwk James Tejada MD PN ELECTROPHYSIOLOGY ORDERABLE PACEART documented in this encounter Visit Diagnoses Diagnosis SSS (sick sinus syndrome) (HRC)- Primary Sinoatrial node dysfunction Cardiac pacemaker in situ documented in this encounter Care Teams Ethylbenzene Converter Operator Relationship Specialty Start Date End Date Dalton Esqueda MD [address] [place] [address] PCP - General Family Practice 06/23/23 documented as of this encounter
--- OUTSIDE RECORDS SUMMARY | 2024-01-14 13:37 | XMS_ITS | Encounter Summary ---
Author Organization [employer] Address [address] [place] [address] Care Team Providers Care Forge Tender Name Role Phone Dalton Esqueda MD Primary Care Provider [phone] Reason for Visit * Reason Comments Hypertension Encounter Details Date Type Department Care Team (Late st Contact Info) Description 10/24/2023 Telephone [facility] Cardiology [id number] [employer] [place], [place] [phone] Wilfredo Howell III, MD [address] [place] [address] Hypertension Social History Tobacco Use [...] Description 01/24/2024 9:[address] [facility] [address] [facility] [address] [place] [address] 03/14/2024 2:00 PM CHIEF CREW SCHEDULER Appointment [facility] Neurosurgery/Ortho Spine [address] [place] [address]. [place] [address] Brandon Kessler MD [address] [place] [address] 03/20/2024 11:15 AM CHIEF CREW SCHEDULER Appointment [facility]umatology at [facility] [place] [address] [address] [address] [place] [address] Desilet, Freeman W, DO [address] [place] [address] documented as of this encounter Visit Diagnoses Not on filedocumented in this encounter Care Teams Forge Tender Relationship Specialty Start Date End Date Dalton Esqueda MD [address] [place] [address] PCP - General Family Practice 06/23/23 documented as of this encounter
--- OUTSIDE RECORDS SUMMARY | 2024-01-14 13:37 | XMS_ITS | Encounter Summary ---
Author Organization [employer] Address [address] [place] [address] Care Team Providers Care Grinding Wheel Operator Name Role Phone Dalton Esqueda MD Primary Care Provider Reason for Visit * Reason Comments BLOOD PRESSURE, HIGH Encounter Details Date Type Department Care Team (Late st Contact Info) Description 11/02/2023 Telephone [facility] Cardiology [address] [place] [address] Wilfredo Howell III, MD [address] [place], [place] [phone] BLOOD PRESSURE, HIGH Social History Tobacco Use [...] Me 11/03/23 7:46 AM Please use the [place] slot. November 02, 2023 Me to Wilfredo Howell III, MD KB 11/02/23 11:[address] Howell, see update from Rich[place]. I can get her in to be seen in [place] next week and she is in agreement [...] 01/24/2024 9:00 AM CDT Appointment [facility] [address] Electrophysiology [address] [place] [address] 03/14/2024 2:00 PM SUPERVISOR ABATTOIR Appointment [facility] Neurosurgery/Ortho Spine [address] [facility] [address] Brandon Kessler MD [address] [place] [address] 03/20/2024 11:15 AM SUPERVISOR ABATTOIR Appointment Rheumatology at [facility] [place] [address] [address] [address] [place] [address] Desilet, Freeman W, DO [address] [place] [address] documented as of this encounter Visit Diagnoses Not on filedocumented in this encounter Care Teams Grinding Wheel Operator Relationship Specialty Start Date End Date Dalton Esqueda MD [address] [place] [address] PCP - General Family Practice 06/23/23 documented as of this encounter
--- OUTSIDE RECORDS SUMMARY | 2024-01-14 13:37 | XMS_ITS | Encounter Summary ---
Author Organization [employer] Address [address] [place] [address] Care Team Providers Care Insolvency Practitioner Name Role Phone Dalton Esqueda MD Primary Care Provider [phone] Reason for Visit * Reason Comments Medication Questions Encounter Details Date Type Department Care Team (Late st Contact Info) Description 10/13/2023 Telephone [facility] Cardiology [address] [place] [address] Wilfredo Howell III, MD [address] [place] [address] Medication Questions Social History Tobacco [...] 10/13/2023 4:33 PM CDT Call received from [facility] pharmacy through triage requesting clarification for the Losartan Rx. Prescription was clarified and filled. documented in this encounter Plan of Treatment Upcoming Encounters Date Type Department Care Team (Late st Contact Info) Description 01/24/2024 9:00 AM CDT Appointment [facility] [address] [facility] [address] [place] [phone] 03/14/2024 2:00 PM ENTRY LEVEL JAVA DEVELOPER Appointment [facility] Neurosurgery/Ortho Spine [address] [facility] [place] [address] Brandon Kessler MD [address] [place] [phone] 03/20/2024 11:15 AM ENTRY LEVEL JAVA DEVELOPER Appointment Rheumatology at [facility] [place] [address] [address] [address] [place] [address] DesiletFreeman W, DO [address] [place] [address] documented as of this encounter Visit Diagnoses Not on filedocumented in this encounter Care Teams Insolvency Practitioner Relationship Specialty Start Date End Date Dalton Esqueda MD [address] [place] [address] PCP - General Family Practice 06/23/23 documented as of this encounter
--- OUTSIDE RECORDS SUMMARY | 2024-01-14 13:37 | XMS_ITS | Encounter Summary ---
Author Organization [employer] Address [address] [place] [address] Care Team Providers Care Noc Analyst Name Role Phone Dalton Esqueda MD Primary Care Provider [phone] Encounter Details Date Type Department Care Team (Latest Contact Info) Description 11/08/2023 Orders Only HIM DEPARTMENT Provider, [place] [address] Social History Tobacco Use Types Packs/Day Years Used Date Smoking Tobacco: Former Cigarettes Smokeless Tobacco: Never Alcohol Use Standard Drinks/Week Comments Not Currently 0 (1 standard drink = 0.6 oz pur e alcohol) [facility] Utilities Answer Date Recorded In the past 12 months has e [employer], gas, oil, or water [employer] threatened to shut off services in your [...] place to sleep or slept in a intermediate (including now)? No 11/08/2023 Sex and Gender Information Value Date Recorded Sex Assigned at Not on file Gender Identity Female 12/21/2023 11:58 AM CDT Sexual Orientation Not on file documented as of this encounter Plan of Treatment Upcoming Encounters Date Type Department Care Team (Late st Contact Info) Description 01/24/2024 9:00 AM CDT Appointment [facility] [address] [facility] [address] [place] [address] 03/14/2024 2:00 PM PIPELINE SUPERINTENDENT Appointment [facility] Neurosurgery/Ortho Spine [address] [place] [address]. [place] [address] Brandon Kessler MD [address] [place] [address] 03/20/2024 11:15 AM PIPELINE SUPERINTENDENT Appointment Rheumatology at [facility] [place] [address] [facility] [address] [place] [address] DesiletFreeman W, DO [address] [place] [address] documented as of this encounter Procedures Procedure Name Priority Date/Time Associated Diagnosis Comments PROCEDURE IP 11/08/2023 documented in this encounter Results * PROCEDURE IP (11/08/2023) Anatomical Region Laterality Modality Other Interface Provider MD DUMMY/OTHER/AR documented in this encounter Visit Diagnoses Not on filedocumented in this encounter Care Teams Noc Analyst Relationship Specialty Start Date End Date Dalton Esqueda MD [address] [place] [address] PCP - General Family Practice 06/23/23 documented as of this encounter
--- OUTSIDE RECORDS SUMMARY | 2024-01-14 13:37 | XMS_ITS | Encounter Summary ---
Author Organization [facility] Address [address] [place] [address] Care Team Providers Care Packing Inspector Name Role Phone Dalton Esqueda MD Primary Care Provider Encounter Details Date Type Department Care Team (Late st Contact Info) Description 10/24/2023 Notes/Orders [facility] Cardiology [address] [place] [address]. [place], [place] [phone] Wilfredo Howell III, MD [address] [place] [phone] Social History Tobacco Use Types Packs/Day Years [...] 9:00 AM CDT Appointment [facility]berg [place] [address] [facility] [address] [place] [address] 03/14/2024 2:00 PM MULE DRIVER Appointment [facility] Neurosurgery/Ortho Spine [address] [facility] [place], [place] [phone] Brandon Kessler MD [address] [place] [address] 03/20/2024 11:15 AM MULE DRIVER Appointment Rheumatology at [facility] [address] [place] [address] Freeman Lopez W, DO [address] [place], [place] [address] documented as of this encounter Visit Diagnoses Not on filedocumented in this encounter Care Teams Packing Inspector Relationship Specialty Start Date End Date Dalton Esqueda MD [address] [place] [address] PCP - General Family Practice 06/23/23 documented as of this encounter
--- OUTSIDE RECORDS SUMMARY | 2024-01-14 13:37 | XMS_ITS | Encounter Summary ---
Author Organization [facility] Address [address] [place] [address] Care Team Providers Care Aircraft Engine Assembler Name Role Phone Dalton Esqueda MD Primary Care Provider [phone] Reason for Visit * Reason Comments Follow-up Encounter Details Date Type Department Care Team (Late st Contact Info) Description 10/13/2023 3:30 PM CDT [facility] [id number] Cardiology [address] [place] [address] Wilfredo Howell III, MD [address] [place], [place] [address] Hypertension, unspecified type (HRC) (Primary Dx); Tobacco [...] every week. Take 30 minutes before first [id number]. Avoid lying down for 30 minutes. 12 [...] 5' 5 (165.1 cm) Wt 126 lb (80686 g) BMI 20.97 kg/m?? Estimated body mass index is 20.97 kg/m?? as calculated from the following: Height as of this encounter: 5' 5 (165.1 cm). Weight as of this encounter: 126 lb (60455 g). GEN- patient awake alert and conversant [...] medical records, cardiac tests, and time spent [id number] with patient. documented in this encounter Plan of Treatment Upcoming Encounters Date Type Department Care Team (Late st Contact Info) Description 01/24/2024 9:00 AM CDT Appointment [facility] [id number] Electrophysiology [address] [place] [address] 03/14/2024 2:00 PM CABLE TELEVISION PROGRAM DIRECTOR Appointment [facility] Neurosurgery/Ortho Spine [address] [facility] [place] [address] Brandon Kessler MD [address] [place] [id number] 03/20/2024 11:15 AM CABLE TELEVISION PROGRAM DIRECTOR Appointment Rheumatology at [facility] [address] [address] Desilet, Freeman W, DO [address] [place], [place] [id number] documented as of this encounter Visit Diagnoses Diagnosis Hypertension, unspecified type (HRC)- Primary Tobacco use disorder (HRC) Tobacco use disorder PAD (peripheral artery disease) (HRC) Unspecified disorders of arteries and arterioles Mixed hyperlipidemia (HRC) Mixed hyperlipidemia documented in this encounter Care Teams Aircraft Engine Assembler Relationship Specialty Start Date End Date Dalton Esqueda MD [address] [place] [address] PCP - General Family Practice 06/23/23 documented as of this encounter
--- OUTSIDE RECORDS SUMMARY | 2024-01-14 13:37 | XMS_ITS | Encounter Summary ---
Author Organization [facility] Address [address], [place] [address] Care Team Providers Care Iphone Developer Name Role Phone Dalton Canales MD Primary Care Provider Reason for Referral * Consult/Transfer Care (Routine) - New Request Specialty Diagnoses / Procedures Referred By Jonathan mora Referred To Contact Diagnoses Hypertensive emergency Gabbie Blackman MD [address] [place] [address] [address] Referral ID Status Reason Start Date Expiration Date V isits Requested Visits Authorized [id number] New Request 11/13/2023 02/11/2024 1 1 Scheduling Instructions Your clinician has recommended an appointment with [facility] Care for your ongoing patient care. You can quickly make your appointment online at [facility]/schedule. You can also call [phone] for help scheduling your appointment. We suggest [...] Physical Therapy Eval and Stefanie Cuba, MD [address] [place] [address] Referral ID Status Reason Start Date Expiration Date V isits Requested Visits Authorized [id number] New Request 11/11/2023 02/09/2025 1 1 * Procedure/Equipment (Routine) - Incomplete Specialty Diagnoses / Procedures Referred By Contac t Referred To Contact Procedures XR Chest 2 Views Gilbert Grey MD [address] [place] [address] Referral ID Status Reason Start Date Expiration Date V isits Requested Visits Authorized [id number] Incomplete 11/11/2023 02/09/2025 1 1 * (Routine) - Incomplete Specialty Diagnoses / Procedures Referred By Contac t Referred To Contact Procedures ECG 12 Lead Inpatient, On post-op day #1 Gilbert Grey MD [address] [place] [address] Referral ID Status Reason Start Date Expiration Date V isits Requested Visits Authorized [id number] Incomplete 11/11/2023 02/09/2025 1 1 * (Routine) - Incomplete Specialty Diagnoses / Procedures Referred By Contac t Referred To Contact Procedures ECG 12 Lead Inpatient Now Gilbert Grey MD [address] [place] [address] Referral ID Status Reason Start Date Expiration Date V isits Requested Visits Authorized [id number] Incomplete 11/11/2023 02/09/2025 1 1 * (Routine) - New Request Specialty Diagnoses / Procedures Referred By Contac t Referred To Contact Procedures Permanent Pacemaker Implantation (Inpatient) Sharona White APRN, DOM [address] [place] [address] Referral ID Status Reason Start Date Expiration Date V isits Requested Visits Authorized [id number] New Request 11/10/2023 02/08/2025 1 1 * (Routine) - Incomplete Specialty Diagnoses / Procedures Referred By Contac t Referred To Contact Procedures STAT ECG 12 Lead Inpatient Stefanie Perez MD [address] [place] [address] Referral ID Status Reason Start Date Expiration Date V isits Requested Visits Authorized [id number] Incomplete 11/10/2023 02/08/2025 1 1 * Consult/Transfer Care (Routine) - New Request Specialty Diagnoses / Procedures Referred By Contac t Referred To Contact Neurosurgery Diagnoses Brain aneurysm Lemuel Moses DO [address] [place] [address] [facility] [address] [place] [address]. [place] [address] Referral ID Status Reason Start Date Expiration Date V isits Requested Visits Authorized [id number] New Request 11/10/2023 02/08/2025 1 1 Scheduling Instructions Your clinician has recommended an appointment with [facility] Neuro[facility]. You may call [phone] to schedule your appointment. We suggest you [...] GXT Stress Test Wilfredo Howell III, MD [address] [place] [address] Referral ID Status Reason Start Date Expiration Date V isits Requested Visits Authorized [id number] New Request 11/10/2023 02/08/2025 1 1 * Procedure/Equipment (Routine) - New Request Specialty Diagnoses / Procedures Referred By Contac t Referred To Contact Procedures Echocardiogram Crow Howell PA-C [address] [place] [address] Referral ID Status Reason Start Date Expiration Date V isits Requested Visits Authorized [id number] New Request 11/08/2023 02/06/2025 1 1 * (Routine) - Incomplete Specialty Diagnoses / Procedures Referred By Contac t Referred To Contact Procedures ECG 12 Lead Inpatient Crow Howell PA-C [address] [place] [address] Referral ID Status Reason Start Date Expiration Date V isits Requested Visits Authorized [id number] Incomplete 11/08/2023 02/06/2025 1 1 * Procedure/Equipment (Routine) - Incomplete Specialty Diagnoses / Procedures Referred By Contac t Referred To Contact Procedures XR Portable Chest 1 View Corw Howell PA-C [address] [place] [address] Referral ID Status Reason Start Date Expiration Date V isits Requested Visits Authorized [id number] Incomplete 11/08/2023 02/06/2025 1 1 * Procedure/Equipment (Routine) - Incomplete Specialty Diagnoses / Procedures Referred By Contac t Referred To Contact Procedures CT Angio Neck Head W IV Cont Kavon Vázquez DO [address] [place] [address] Referral ID Status Reason Start Date Expiration Date V isits Requested Visits Authorized [id number] Incomplete 11/08/2023 02/06/2025 1 1 * Procedure/Equipment (Routine) - Incomplete Specialty Diagnoses / Procedures Referred By Contac t Referred To Contact Procedures CT Head WO IV Kavon Saravia DO [address] [place] [address] Referral ID Status Reason Start Date Expiration Date V isits Requested Visits Authorized [id number] Incomplete 11/08/2023 02/06/2025 1 1 * (Routine) - Incomplete Specialty Diagnoses / Procedures Referred By Contac t Referred To Contact Procedures ECG 12 Lead Jenaro Robles MD [address] [place] [address] Referral ID Status Reason Start Date Expiration Date V isits Requested Visits Authorized [id number] Incomplete 11/08/2023 02/06/2025 1 1 Reason for [...] Expiration Date Visits Re quested Visits Authorized [id number] 1 1 Encounter Details Date Type Department Care Team (Late st Contact Info) Description 11/08/2023 12:45 PM CDT - 11/13/2023 11:30 AM CDT Hospital Encounter [facility] 2NS-MS ICU [address] [facility] [place], [place] [address] Kavon Vázquez DO [address] [place], [place] [id number] Christian Carter MD [address] [place], [place] [phone] Crow Howell PA-C [address] [place] [address] Filomena Lopes DO [address] [place], [place] [address] Stefanie Perez MD [address] [place], [place] [phone] Gabbie Blackman MD [address] [place] [id number] Chronic pain syndrome (Primary Dx); Hypertensive emergency; Cerebral aneurysm without rupture; Acute nonintractable headache, unspecified headache type; Brain aneurysm Discharge Disposition: Home Social History Tobacco Use Types Packs/Day Years Used Date Smoking Tobacco: Former Cigarettes Smokeless Tobacco: Never Alcohol Use Standard Drinks/Week Comments Not Currently 0 (1 standard drink = 0.6 oz pur e alcohol) [facility] Utilities Answer Date Recorded In the past 12 months has Quench, gas, oil, or water [employer] threatened to shut off services in [...] dose increased 6.25bid Post hospital dischage f/u food operations manager 5-7days Electrophysiology Cardilogy cardiology No Pending labs [...] stressed Prior Living Situation: Patient lives in [place], she is alone, her daughter of addiction, [...] guarding Ext: no clubbing, cyanosis, or edema BUSINESS EDITOR: no FND Labs & Imaging during course [...] known aneurysms TECHNIQUE: CT angiogram of the [place] of [place] and CT angiogram of the [...] every week. Take 30 minutes before first pgtl-spxyl-kjmoorqezb on mornings. Avoid lying down for 30 [...] Your Medications These medications were sent to [facility] [address] [address] alendronate 70 MG tablet carvedilol 3.125 MG tablet Outpatient follow up appointments: No follow-up provider specified. Future Appointments Date Time Provider Department Center 11/22/2023 8:45 AM [facility], P[facility]00 EPHYS P6500 EPHYS PN 6500 12/22/2023 10:45 AM Desilet, Freeman Fong, DO [facility]ERS RHE PN PRIYA Blackman MD, [email or web address] Hospitalist//[facility] For full discharge orders and instructions, please see the after visit summary for this hospitalization. See the electronic medical record for full laboratory and diagnostic test results. documented in this encounter Discharge Instructions * Attachments The following attachments cannot be sent through Care Everywhere. * Biventricular Pacemaker: Post-op (Slovenian) documented in this encounter Medications at Time of Discharge Medication Sig Dispensed Refills Start Date End Date acetaminophen (TYLENOL 8 HOUR ARTHRITIS PAIN) 650 MG controlled release tablet Take 1 Tablet (650 mg) by mouth every 8 hours as needed. alendronate (FOSAMAX) 70 MG tablet Take 1 Tablet (70 mg) by mouth once every week. Take 30 minutes before first zpqf-fhffd-vxufjexboc on mornings. Avoid lying down for 30 minutes. 12 Tablet 3 11/13/2023 11/12/2024 aspirin EC 81 MG enteric coated tablet Take 1 Tablet (81 mg) by mouth daily. cholecalciferol (VITAMIND3) 50 MCG (2000 UT) tablet Take 1 Tablet (2,000 Units) by mouth daily. drug not in computer Take by mouth daily. ProOmega Curcumin by [employer]: Take 3 capsules by mouth daily ezetimibe [...] up tomorrow Gabbie Blackman MD,(charges based on [facility] complexity of cares:High) Subjective Today: Doing well Shower Her granddaughter can pick her up tomorrow Denied any dizziness Blood pressure medication discussed with her Compliance stressed to her Care disussed with team and involved consultants Prior Living Situation: Patient lives in [place], she is alone, her daughter of addiction, [...] guarding Ext: no clubbing, cyanosis, or edema BUSINESS EDITOR: no FND Daily Med in Hospital: aspirin [...] known aneurysms TECHNIQUE: CT angiogram of the [place] of [place] and CT angiogram of the [...] Cardiology Progress Note 11/12/2023 Nicolle Martinez Jose [id number] Date of Admission:11/08/2023 SUBJECTIVE: Feels better, no [...] Current weight: Weight: 124 lb 12.5 oz (47817 g) Admit weight: Weight: 124 lb 12.5 oz (88137 g) I & O over last 24 [...] a ride home until tomorrow. Transfer to [address] [place] [address]. -Pacemaker clinic f/u scheduled -Left message with cardiology senior sourcing manager to arrange cardiology clinic f/u 3-4 weeks [...] dnr dni Disposition: ok to transfer to [address] [place] [address]/[facility] , needs a few more days for bp titration, will also have PT OT see Notes reviewed: cardiology, Discussed with: Dr Howell Medical decision making high complexity -the patient is receiving a drug therapy requiring monitoring :intermittent iv nicardipine Stefanie Perez MD Hospitalist * Vidya Prabhakar, DELIVERY PROFESSIONAL, [facility] - 11/11/2023 3:22 PM CDT [facility] Care Management Inpatient Note Plan: Expected Discharge Date: TBD Anticipated Discharge Plan: TBD Transportation: TBD Barriers to Discharge: medical stability Prior Living Situation: Alone, Home - multilevel Advanced Directive on File: No Additional Comments: Hospital Care Management was consulted to assist with discharge planning. Chart reviewed. Patient arrives from [facility] for evaluation of hypertension. Patient has [...] meal options in hospital. Weight appears stable LARD RENDERER. Will provide supplement TID at mealtimes. Subjective Information Subjective Information: Met w/ pt at bedside this AM. 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 I encouraged pt to continue to work with diet techs on meal options. In addition will provbijan Alexandrea Xyo Standard supplement at mealtimes TID as a [...] Encourage intake of meals as able; Alexandrea Xyo Standard 1.4 supplement w/ meals TID; monitor intake, wt, labs. Will follow up with pt in 3-5 days. See full nutrition assessment in the Patient Story report or Nutrition Assessment flowsheet. Stefanie Keller, MS, RDN, LD, CNSC (Contact Dietitian assigned to patient's floor using [employer]MIN[employer]) * Wilfredo Howell III, MD - 11/11/2023 2:35 PM CDT Cardiology Progress Note 11/11/2023 Nicolle Covington [id number] Patient Active Problem List Diagnosis Fibromyalgia Hypertension [...] / SURGERY O: Patient will go to [facility] for Pacemaker placement. D: Patient is alert and oriented x 4. Last recorded vitals: Temp: 36.9 ??C (98.4 ??F) (11/11/23 1200) Pulse: (!) 55 (11/11/23 1300) Resp: 13 (11/11/23 1300) BP: (!) 145/63 (11/11/23 1300) SpO2: 97 % (11/10/23 0800) A: Pre-procedure check list completed. Consent on chart, signed: No R: Awaiting transport. * Traci Francis APRN, ANIMAL TRAINER - 11/11/2023 11:42 AM CDT Name: Nicolle Covington : 1955 INPATIENT ELECTROPHYSIOLOGY PROGRESS NOTE Attending: Stefanie Perez MD Admission date: 11/08/2023 Date of service: 11/11/2023 Salvage Inspector Wood Parts: Dr. Connolly ASSESSMENT/PLAN: 1. Symptomatic sick sinus [...] Platelets 238 11/10/2023 Traci Francis APRN, DOM, ANIMAL TRAINER Electrophysiology * Ai Thayer RN - 11/11/2023 [...] Procedure Abnormality Status --------- ------ Complete Blood Count-W/...[[id number]] Abnormal Final result Please view results for [...] dni Disposition: ok to transfer to [address] [place]/[facility] Notes reviewed:neurology, cardiology, er Discussed with: Dr Howell Medical decision making high complexity -the patient is receiving a drug therapy requiring monitoring : iv nicardipine Stefanie Perez MD Hospitalist * Wilfredo Howell III, MD - 11/10/2023 9:14 AM CDT Cardiology Progress Note 11/10/2023 Nicolle Covington [id number] Patient Active Problem List Diagnosis Fibromyalgia Hypertension [...] bp in good range and stable. Filomena oLpes DO 7:50 AM 11/09/2023 Hospital Medicine Billing Based on Complexity: high This note was created with the assistance of voice recognition software. Occasional wrong word or 'ctine-b-nqye' substitutions may have occurred due to software's [...] CARDIAC ELECTROPHYSIOLOGY PROCEDURE REPORT Cardiac Electrophysiology Service [facility] [place] Cardiac Salvage Inspector [employer]: Gilbert Grey MD Date: 11/11/2023 PROCEDURES PERFORMED: [...] PARAMETERS: New Permanent Pacemaker Pulse Generator: Medtronic Hope, model [id number] New Right Atrial Lead: Medtronic model [id number] Sensed P waves 4.1 mV, pacing threshold 1.2 V @ 0.5 ms, impedance 898 ohms. New Right Ventricular Lead: Medtronic model [id number] Sensed R waves 9.7 mV, pacing threshold [...] CDTAssociated Order(s): CARE MANAGEMENT CONSULT - HOSPITAL [facility] Care Management Inpatient Note Plan: Expected [...] of cerebral aneurysm patient was admitted to [facility]. IN the emergency center BP was elevated to 210/71, BNP mildly elevated, troponin negative. CTA head and neck showing some vertebral artery atherosclerotic disease, what appear to bemostly stable aneurysms, 1 with the right middle cerebral artery, 1 with the left vertebral artery.No large vessel occlusion on CT head. Patient was admitted to [facility] and initiated on nicardipine drip. On 11/08 [...] recently transferred all of her care to [facility]. She notes that prior to this summer, she could tolerate going to the pool 4-5 times per week to [place]. She remained active with daily tasks around [...] Resource Strain: Low Risk (03/24/2023) Received from [employer] [facility] Financial Resource Strain Difficulty of Paying Living [...] with Dr. Connolly. Sharona White APRN, CNP [facility] Electrophysiology Cardiac Electrophysiology Physician Note I performed a consultative history and physical examination on the patient and discussed her management with Sharona White CNP. I reviewed and edited her note as documented above and agree with the documented findings, assessment, and plan of care. The findings and plan were reviewed and discussed with the patient. Travis Connolly MD Cardiac Salvage Inspector [employer] Please note that the above medical documentation was created using voice recognition software and may contain typographical errors. * Vidya Prabhakar MSW, ASBESTOS REMOVER - 11/09/2023 1:52 PM CDTAssociated Order(s): CARE MANAGEMENT CONSULT - HOSPITAL [facility] Care Management Inpatient Note Plan: Expected Discharge Date: TBD Anticipated Discharge Plan: TBD Transportation: TBD Barriers to Discharge: medical stability Prior Living Situation: Alone, Home - multilevel Advanced Directive on File: No Additional Comments: Hospital Care Management was consulted to assist with discharge planning. Chart reviewed. Patient arrives from [facility] for evaluation of hypertension. Patient has [...] included. Cardiology Consult Note 11/09/2023 Nicolle Covington [id number] Requesting physician: Dr. Filomena Lopes MD Primary physician: Dr. Dalton Canales MD Chief complaint: Hypertensive urgency/emergency History of Present Illness: I had the opportunity to visit with Nicolle for a cardiology consultation at [facility] today. She is a 68-year-old [...] cm). Weight as of 10/13/23: 126 lb (98886 g). I & O over last 24 [...] from the original note were not included. [facility]. Neurology Consultation Note () Date of service: [...] ischemic. [facility] [...] mg 1,000 mg Oral BID nystatin (MYCOSTATIN) 167375 UNIT/GM topical powder Topical BID PRN pantoprazole DR (PROTONIX) tablet 40 mg 40 mg Oral Daily at 6 am polyethyl-propylene glycol (SYSTANE) 0.4-0.3 % ophthalmic solution 1 Drop 1 Drop Both Eyes Q1H PRN predniSONE (DELTASONE) tablet 7.5 mg 7.5 mg Oral Daily sodium chloride (OCEAN) 0.65 % nasal solution 1 Jackson 1 Jackson Both Nostrils Q2H PRN sodium chloride 0.9% [...] Resource Strain: Low Risk (03/24/2023) Received from [facility] Financial Resource Strain Difficulty of Paying Living [...] groups bilaterally. No pronator drift. Coordination: Intact mprvjg-bp-rqiu. Finger tapping rapid and rhythmic. Sensory: Intact [...] spent in counseling and coordinating care. A ballistics professor was not used during this exam. Report Completed by: Lemuel Moses DO Neurology --- End of Report --- documented in this encounter OR Notes * [facility]el[employer]P - Crow Howell PA-C - 11/08/2023 4:05 PM CDT [facility] Medicine History and Physical Date of Service: [...] every week. Take 30 minutes before first hqug-onrks-lofosggovn. Avoid lying down for 30 minutes. aspirin [...] sensation to bilateral upper and lower extremities, hqhprg-go-udld without any dysmetria or ataxia, gvld-qi-avnj without any ataxia Results reviewed in Epic [...] hypertensive emergency and plan for admission to [address] [place] [address]/[address] [place] [address] and nicardipine drip. Of note, patient has [...] systolic of less than 170 - hold LARD RENDERER losartan, Coreg, spironolactone while on nicardipine drip [...] medications for now History of lupus - LARD RENDERER CellCept, hydroxychloroquine, prednisone Anxiety - as prescribed [...] 75 minutes including, but not limited to, nys-bwbz-pk-face time spent reviewing records, counseling, and coordination of care. This note was created with voice recognition software which may have resulted in unintended word substitutions. Crow Howell PA-C [facility] Medicine Pager: [phone] (also on Amion) documented in this encounter [...] QT 380 ms QTc 373 ms P [place] 65 degrees R [place] 66 degrees T [place] [address] Angio Neck Head W IV Cont Final Result IMPRESSION INDICATION: sams, htn, known aneurysms TECHNIQUE: CT angiogram of the [place] of [place] and CT angiogram of the [...] P-R Interval QRS Duration QT QTc P [place] R [place] T [place] 11/08/23 13:08:39 11/08/23 15:53:17 58 58 170 [...] Medical Decision Making / Diagnosis MIPS None [facility] Nicolle Covington is a 68 y.o. [...] and the provider's statements to me. 11/08/2023 [facility] Portions of this medical record were completed by a scribe. UPON MY REVIEW AND AUTHENTICATION BY ELECTRONIC SIGNATURE, this confirms (a) I performed the applicable clinical services, and (b) the record is accurate. Kavon Vázquez DO 11/08/231811 documented in this encounter Plan of Treatment Upcoming Encounters Date Type Department Care Team (Late st Contact Info) Description 01/24/2024 9:00 AM CDT Appointment [facility] [place] [address] [facility] [address] [place] [address] 03/14/2024 2:00 PM PRODUCER ASSISTANT Appointment [facility] [place] Neurosurgery[facility]tho Spine [address] [place] [address] Brandon Kessler MD [address] [place] [address] 03/20/2024 11:15 AM PRODUCER ASSISTANT [facility] [place] [address] DesiletFreeman, DO [address] [place] [address] Scheduled Orders Name Type Priority Associated Diagnoses [...] - 145 mmol/L 11/13/2023 5:33 AM CDT [facility] Potassium 4.5 3.5 - 5.1 mmol/L 11/13/2023 5:33 AM CDT [facility] Chloride 110(H) 98 - 109 mmol/L 11/13/2023 5:33 AM CDT [facility] CO2 21 20 - 29 mmol/L 11/13/2023 5:33 AM CDT [facility] Anion Gap 7 6 - 16 mmol/L 11/13/2023 5:33 AM CDT [facility] Calcium 9.6 8.4 - 10.4 mg/dL 11/13/2023 5:33 AM CDT [facility] BUN 36(H) 7 - 26 mg/dL 11/13/2023 5:33 AM CDT [facility] Creatinine 1.29(H) 0.55 - 1.02 mg/dL 11/13/2023 5:33 AM CDT [facility] Glucose 90 70 - 100 mg/dL 11/13/2023 5:33 AM CDT [facility] Comment:The given reference range is for the fasting state. Non-fasting reference range for glucose is 70 - 180 mg/dL. GFR, Estimated 45(L) >60 mL/min/1.7 3m2 11/13/2023 5:33 AM CDT [facility] Blood Venipuncture / Unknown 11/13/2023 4:43 AM CDT 11/13/2023 5:01 AM CDT Narrative [facility] - 11/13/2023 5:33 AM CDT The National Kidney Disease Education Program suggests measuring Cystatin C in patients with eGFRcrea of 45 to 59 ml/min/1.73^2 who do not have other markers of kidney damage (i.e. elevated urine Albumin/Creatinine Ratio or a prior Cystatin C confirming the presence of chronic kidney disease). Stefanie Perez MD LAB_1 Performing Organization Address City/[facility]/ZIP Co de Phone Number [facility] [address] [id number] * ECG 12 Lead Inpatient, On post-op day #1 (11/12/2023 6:51 AM CDT) Ventricular Rate 62 BPM [facility] Atrial Rate 62 BPM [facility] P-R Interval 204 ms [facility] QRS Duration 86 ms [facility] QT 414 ms MUSE [facility]HP QTc 420 ms MUSE [facility]HP P [place] 22 degrees MUSE GHP R [place] 59 degrees MUSE GHP T [place] 78 degrees MUSE [facility] 11/12/2023 6:51 AM [...] ECG ORDERABLES Performing Organization Address [facility]/ZIP Co de Phone Number [facility] [address] [place] [address] * (ABNORMAL) Basic Metabolic Panel (11/12/2023 4:35 AM CDT) Sodium 135(L) 136 - 145 mmol/L 11/12/2023 5:26 AM CDT [facility] Potassium 4.7 3.5 - 5.1 mmol/L 11/12/2023 5:26 AM CDT [facility] Chloride 108 98 - 109 mmol/L 11/12/2023 5:26 AM CDT [facility] CO2 20 20 - 29 mmol/L 11/12/2023 5:26 AM CDT [facility] Anion Gap 7 6 - 16 mmol/L 11/12/2023 5:26 AM CDT [facility] Calcium 9.2 8.4 - 10.4 mg/dL 11/12/2023 5:26 AM CDT [facility] BUN 37(H) 7 - 26 mg/dL 11/12/2023 5:26 AM CDT [facility] Creatinine 1.07(H) 0.55 - 1.02 mg/dL 11/12/2023 5:26 AM CDT [facility] Glucose 87 70 - 100 mg/dL 11/12/2023 5:26 AM CDT [facility] Comment:The given reference range is for the fasting state. Non-fasting reference range for glucose is 70 - 180 mg/dL. GFR, Estimated 56(L) >60 mL/min/1.7 3m2 11/12/2023 5:26 AM CDT [facility] Blood Venipuncture Butterfly / Unknown 11/12/2023 4:35 AM CDT 11/12/2023 5:04 AM CDT Narrative [facility] - 11/12/2023 5:26 AM CDT The National Kidney Disease Education Program suggests measuring Cystatin C in patients with eGFRcrea of 45 to 59 ml/min/1.73^2 who do not have other markers of kidney damage (i.e. elevated urine Albumin/Creatinine Ratio or a prior Cystatin C confirming the presence of chronic kidney disease). Stefanie Perez MD LAB_1 [facility] [address] [place], [place] [address] * XR Chest 2 Views (11/11/2023 [...] GHP QTc 435 ms MUSE GHP P [place] 10 degrees MUSE GHP R [place] 61 degrees MUSE GHP T [place] 62 degrees MUSE GHP 11/11/2023 5:58 PM [...] ECG ORDERABLES MUSE GHP [address] [place] [address] * Permanent Pacemaker Implantation (Inpatient) (11/11/2023 3:24 PM CDT) Narrative PROSOLV - 11/11/2023 3:24 PM CDT Gilbert Grey MD ? 11/11/2023 ??3:26 PM CARDIAC ELECTROPHYSIOLOGY PROCEDURE REPORT Cardiac Electrophysiology Service [facility] [place] Cardiac Salvage Inspector [employer]: ??Gilbert Grey MD Date: 11/11/2023 PROCEDURES PERFORMED: [...] [id number] New Right Atrial Lead: ??Medtronic model [id number] Sensed P waves 4.1 mV, pacing threshold 1.2 V @ 0.5 ms, impedance 898 ohms. New Right Ventricular Lead: ??Medtronic model [id number] Sensed R waves 9.7 mV, pacing threshold [...] MD Cardiac Electrophysiology Service Sharona White APRN, ANIMAL TRAINER PN ELECTROPHYSIO LOGY ORDERABLE PROSOLV [address] [place], [place] [id number] * (ABNORMAL) Basic Metabolic Panel (11/11/2023 4:48 AM CDT) Sodium 135(L) 136 - 145 mmol/L 11/11/2023 5:21 AM CDT [facility] Potassium 3.8 3.5 - 5.1 mmol/L 11/11/2023 5:21 AM CDT [facility] Chloride 106 98 - 109 mmol/L 11/11/2023 5:21 AM CDT [facility] CO2 20 20 - 29 mmol/L 11/11/2023 5:21 AM CDT [facility] Anion Gap 9 6 - 16 mmol/L 11/11/2023 5:21 AM CDT [facility] Calcium 9.9 8.4 - 10.4 mg/dL 11/11/2023 5:21 AM CDT [facility] BUN 38(H) 7 - 26 mg/dL 11/11/2023 5:21 AM CDT [facility] Creatinine 1.21(H) 0.55 - 1.02 mg/dL 11/11/2023 5:21 AM CDT [facility] Glucose 84 70 - 100 mg/dL 11/11/2023 5:21 AM CDT [facility] Comment:The given reference range is for the fasting state. Non-fasting reference range for glucose is 70 - 180 mg/dL. GFR, Estimated 49(L) >60 mL/min/1.7 3m2 11/11/2023 5:21 AM CDT [facility] Blood Venipuncture / Unknown 11/11/2023 4:48 AM CDT 11/11/2023 4:52 AM CDT Narrative [facility] - 11/11/2023 5:21 AM CDT The National Kidney Disease Education Program suggests measuring Cystatin C in patients with eGFRcrea of 45 to 59 ml/min/1.73^2 who do not have other markers of kidney damage (i.e. elevated urine Albumin/Creatinine Ratio or a prior Cystatin C confirming the presence of chronic kidney disease). Stefanie Perez MD LAB_1 [facility] [address] * STAT ECG 12 Lead Inpatient (11/10/2023 2:08 PM CDT) Ventricular Rate 39 BPM MUSE GHP Atrial Rate 50 BPM MUSE GHP P-R Interval 170 ms MUSE GHP QRS Duration 86 ms MUSE GHP QT 458 ms MUSE GHP QTc 368 ms MUSE GHP P [place] 53 degrees MUSE GHP R [place] 71 degrees MUSE GHP T [place] 70 degrees MUSE GHP 11/10/2023 2:08 PM [...] ECG ORDERABLES Performing Organization Address [facility] de Phone Number MUSE G[facility] [address] [place] [address] * INPATIENT TELEMETRY MONITORING (11/10/2023 9:18 AM [...] Provider EKG Performing Organization Address [facility] de Phone Number M[facility] [address] [place] [address] * GXT Stress Test (11/10/2023 7:52 AM [...] ET ECHO ORDERABL ES Performing Organization Address [facility] Co de Phone Number PROSOLV [address] [place], [place] [id number] * TSH with reflex to fT4 (not for treatment monitoring) (11/10/2023 4:50 AM CDT) TSH, Reflex 0.90 0.30 - 4.50 uIU/mL 11/10/2023 6:20 PM CDT [facility] Blood Venipuncture / Unknown 11/10/2023 4:50 AM CDT 11/10/2023 5:26 AM CDT Sharona White LACE ROLLER, ANIMAL TRAINER LAB_1 [facility] [address] [place] [address], [facility] * (ABNORMAL) Complete Blood Count-W/Diff (11/10/2023 4:50 AM CDT) [facility] Signature WBC 5.8 3.5 - 10.5 x10(9)/L 11/10/2023 5:28 AM CDT [facility] RBC 3.84(L) 3.90 - 5.03 x10(12)/L 11/10/2023 5:28 AM CDT [facility] Hemoglobin 12.0 12.0 - 15.5 g/dL 11/10/2023 5:28 AM CDT [facility] HCT 35.8 34.9 - 44.5 % 11/10/2023 5:28 AM CDT [facility] MCV 93.2 80.0 - 100.0 fL 11/10/2023 5:28 AM CDT [facility] MCH 31.3 27.6 - 33.3 pg 11/10/2023 5:28 AM CDT [facility] MCHC 33.5 31.5 - 35.2 g/dL 11/10/2023 5:28 AM CDT [facility] RDW 13.5 11.9 - 15.5 % 11/10/2023 5:28 AM CDT [facility] Platelets 238 150 - 450 x10(9)/L 11/10/2023 5:28 AM CDT [facility] Automated NRBC 0 <=0 /100 WBC 11/10/2023 5:28 AM CDT [facility] Neutrophil Absolute 2.5 1.7 - 7.0 10(9)/L 11/10/2023 5:28 AM CDT [facility] Lymphocyte Absolute 2.3 1.0 - 4.8 10(9)/L 11/10/2023 5:28 AM CDT [facility] Monocyte Absolute 0.7 0.2 - 0.9 10(9)/L 11/10/2023 5:28 AM CDT [facility] Eosinophil Absolute 0.1 0.0 - 0.5 10(9)/L 11/10/2023 5:28 AM CDT [facility] Basophil Absolute 0.0 0.0 - 0.3 10(9)/L 11/10/2023 5:28 AM CDT [facility] Immature Granulocyte % 0.7(H) 0.0 - 0.5 % 11/10/2023 5:28 AM CDT [facility] Blood Venipuncture / Unknown 11/10/2023 4:50 AM CDT 11/10/2023 5:25 AM CDT Filomena Lopes DO LAB_1 [facility] [address] * (ABNORMAL) Basic Metabolic Panel (IN AM) (11/10/2023 4:50 AM CDT) Sodium 138 136 - 145 mmol/L 11/10/2023 5:58 AM CDT [facility] Potassium 4.1 3.5 - 5.1 mmol/L 11/10/2023 5:58 AM CDT [facility] Chloride 107 98 - 109 mmol/L 11/10/2023 5:58 AM CDT [facility] CO2 23 20 - 29 mmol/L 11/10/2023 5:58 AM CDT [facility] Anion Gap 8 6 - 16 mmol/L 11/10/2023 5:58 AM CDT [facility] Calcium 9.7 8.4 - 10.4 mg/dL 11/10/2023 5:58 AM CDT [facility] BUN 40(H) 7 - 26 mg/dL 11/10/2023 5:58 AM CDT [facility] Creatinine 1.18(H) 0.55 - 1.02 mg/dL 11/10/2023 5:58 AM CDT [facility] Glucose 81 70 - 100 mg/dL 11/10/2023 5:58 AM CDT [facility] Comment:The given reference range is for the fasting state. Non-fasting reference range for glucose is 70 - 180 mg/dL. GFR, Estimated 50(L) >60 mL/min/1.7 3m2 11/10/2023 5:58 AM CDT [facility] Blood Venipuncture / Unknown 11/10/2023 4:50 AM CDT 11/10/2023 5:26 AM CDT Narrative [facility] - 11/10/2023 5:58 AM CDT The National Kidney Disease Education Program suggests measuring Cystatin C in patients with eGFRcrea of 45 to 59 ml/min/1.73^2 who do not have other markers of kidney damage (i.e. elevated urine Albumin/Creatinine Ratio or a prior Cystatin C confirming the presence of chronic kidney disease). Filomena Lopes DO LAB_1 [facility] [address] * INPATIENT TELEMETRY MONITORING (11/09/2023 10:28 AM CDT) TELE INTERPRETATION MUSE GHP 11/09/2023 10:2 8 AM CDT Narrative MUSE G[facility] - 11/09/2023 10:28 AM CDT [id number] Interface Provider EKG Performing Organization Address [facility] Co de Phone Number MUSE GHP [address] [place] [address] * INPATIENT TELEMETRY MONITORING (11/09/2023 7:45 AM CDT) TELE P-R INTERVAL 0.12 MUSE GHP TELE QRS DURATION 0.05 MUSE GHP TELE R-R INTERVAL 1.08 MUSE GHP TELE QT 0.39 MUSE GHP TELE INTERPRETATION Sinus Rhythm MUSE GHP 11/09/2023 7:45 AM CDT Narrative [facility] - 11/09/2023 7:50 AM CDT Sinus Rhythm Interface Provider EKG Performing Organization Address [facility] Co de Phone Number MUSE GHP [address] [place] [address] * Echocardiogram (11/09/2023 6:53 AM CDT) 11/09/2023 6:53 AM CDT Narrative PN ECHO - 11/09/2023 8:35 AM CDT Procedure type: ? ECHOCARDIOGRAM Procedure ? 11/09/2023 6:53 AM date/time: [facility] Accession #: ?[id number] INDICATIONS Dyspnea/SOB. SUMMARY: Left ventricular ejection fraction [...] Staff Interpreting Provider: ?? NILTON GARCIA MD Avionics Integration Engineer: ? Ordering Provider: ? JOLEEN Cisneros Attending [...] Procedure Staff Interpreting Provider: NILTON GARCIA MD Avionics Integration Engineer: EE Ordering Provider: JOLEEN Cisneros Attending Physician: KAVON VÁZQUEZ DO Electronically signed by NILTON GARCIA MD (Interpreting Provider) on at 8:34 AM Crow Howell PA-C ET ECHO ORDERABLES PN ECHO * Complete Blood Count-No Diff (11/09/2023 4:59 AM CDT) WBC 6.1 3.5 - 10.5 x10(9)/L 11/09/2023 5:21 AM CDT [facility] RBC 3.98 3.90 - 5.03 x10(12)/L 11/09/2023 5:21 AM CDT [facility] Hemoglobin 12.0 12.0 - 15.5 g/dL 11/09/2023 5:21 AM CDT [facility] HCT 36.7 34.9 - 44.5 % 11/09/2023 5:21 AM CDT [facility] MCV 92.2 80.0 - 100.0 fL 11/09/2023 5:21 AM CDT [facility] MCH 30.2 27.6 - 33.3 pg 11/09/2023 5:21 AM CDT [facility] MCHC 32.7 31.5 - 35.2 g/dL 11/09/2023 5:21 AM CDT [facility] RDW 13.4 11.9 - 15.5 % 11/09/2023 5:21 AM CDT [facility] Platelets 236 150 - 450 x10(9)/L 11/09/2023 5:21 AM CDT [facility] Automated NRBC 0 <=0 /100 WBC 11/09/2023 5:21 AM CDT [facility] Blood Venipuncture / Unknown 11/09/2023 4:59 AM CDT 11/09/2023 5:17 AM CDT Crow Howell PA-C LAB_1 [facility] [address] [place] [address], [facility] * (ABNORMAL) Basic Metabolic Panel (11/09/2023 4:59 AM CDT) Pathologist [facility] Sodium 138 136 - 145 mmol/L 11/09/2023 5:43 AM CDT [facility] Potassium 4.0 3.5 - 5.1 mmol/L 11/09/2023 5:43 AM CDT [facility] Chloride 105 98 - 109 mmol/L 11/09/2023 5:43 AM CDT [facility] CO2 26 20 - 29 mmol/L 11/09/2023 5:43 AM CDT [facility] Anion Gap 7 6 - 16 mmol/L 11/09/2023 5:43 AM CDT [facility] Calcium 10.2 8.4 - 10.4 mg/dL 11/09/2023 5:43 AM CDT [facility] BUN 28(H) 7 - 26 mg/dL 11/09/2023 5:43 AM CDT [facility] Creatinine 0.96 0.55 - 1.02 mg/dL 11/09/2023 5:43 AM CDT [facility] Glucose 89 70 - 100 mg/dL 11/09/2023 5:43 AM CDT [facility] Comment:The given reference range is for the fasting state. Non-fasting reference range for glucose is 70 - 180 mg/dL. GFR, Estimated >60 >60 mL/min/1.7 3m2 11/09/2023 5:43 AM CDT [facility] Blood Venipuncture / Unknown 11/09/2023 4:59 AM CDT 11/09/2023 5:17 AM CDT Crow Howell PA-C LAB_1 Performing Organization Address City/State/[facility] Co de Phone Number [facility] [address] * XR Portable Chest 1 View [...] Molecular Detection (11/08/2023 8:35 PM CDT) Pathologist [facility] MRSA Not Detected Not Detected 11/08/2023 9:53 PM CDT [facility] Swab (Source Required) ENTIRE ANTERIOR NARIS / Unknown Non-blood Collection / Unknown 11/08/2023 8:35 PM CDT 11/08/2023 8:39 PM CDT Narrative [facility] - 11/08/2023 9:53 PM CDT Methodology: Qualitative real-time PCR assay Christian Carter MD LAB_1 Performing Organization Address [facility] de Phone Number [facility] [address] * Glucose, Whole Blood POCT (11/08/2023 8:12 PM CDT) Glucose, Whole Blood 86 70 - 180 mg/dL 11/08/2023 8:13 PM CDT [facility] Performing Location MT 2N/S 11/08/2023 8:13 PM CDT [facility] Blood 11/08/2023 8:12 PM CDT 11/08/2023 8:13 PM CDT Christian Carter MD LAB_1 Performing Organization Address [facility] Phone Number [facility] [address] [place] [address] * (ABNORMAL) Troponin-I (11/08/2023 7:56 PM CDT) Troponin I 0.06(H) 0.00 - 0.03 ng/mL 11/08/2023 8:33 PM CDT [facility] Blood Venipuncture / Unknown 11/08/2023 7:56 PM CDT 11/08/2023 8:00 PM CDT Crow Howell PA-C LAB_1 Performing Organization Address [facility] de Phone Number [facility] [address] * CT Angio Neck Head W IV Cont (11/08/2023 2:23 PM CDT) Anatomical Region Laterality Modality Head, Vascular Computed Tomogra phy 11/08/2023 2:08 PM CDT Impressions 11/08/2023 3:23 PM CDT INDICATION: sams, htn, known aneurysms TECHNIQUE: CT angiogram of the [place] ??and CT angiogram of the [...] known aneurysms TECHNIQUE: CT angiogram of the [place] and CT angiogram of theneck [...] 12 Lead (11/08/2023 1:08 PM CDT) Pathologist [facility] Ventricular Rate 58 BPM MUSE GHP Atrial Rate 58 BPM MUSE GHP P-R Interval 170 ms MUSE GHP QRS Duration 98 ms MUSE GHP QT 380 ms MUSE GHP QTc 373 ms MUSE GHP P [place] 65 degrees MUSE GHP R [place] 66 degrees MUSE GHP T [place] 68 degrees MUSE GHP 11/08/2023 1:08 PM [...] ECG ORDERABLES Performing Organization Address [facility] Co de Phone Number [facility] [address] [place] [address] * (ABNORMAL) B-Type Natriuretic Peptide (11/08/2023 1:04 PM CDT) [facility] B Type Natr. Peptide 198(H) <=99 pg/mL 11/08/2023 1:57 PM CDT [facility] Blood Venipuncture / Unknown 11/08/2023 1:04 PM CDT 11/08/2023 1:16 PM CDT Kavon Vázquez DO LAB_1 Performing Organization Address [facility] de Phone Number [facility] [address] [place] [address] * Troponin - Once STAT (11/08/2023 1:04 PM CDT) [facility] Troponin I 0.01 0.00 - 0.03 ng/mL 11/08/2023 1:51 PM CDT [facility] Blood Venipuncture / Unknown 11/08/2023 1:04 PM CDT 11/08/2023 1:15 PM CDT Kavon Vázquez DO LAB_1 Performing Organization Address [facility] Co de Phone Number [facility] [address] * Complete Blood Count-W/Diff (11/08/2023 1:04 PM CDT) [facility] WBC 7.8 3.5 - 10.5 x10(9)/L 11/08/2023 1: PM CDT [facility] RBC 4.23 3.90 - 5.03 x10(12)/L 11/08/2023 1: PM CDT [facility] Hemoglobin 13.1 12.0 - 15.5 g/dL 11/08/2023 1: PM CDT [facility] HCT 39.5 34.9 - 44.5 % 11/08/2023 1: PM CDT [facility] MCV 93.4 80.0 - 100.0 fL 11/08/2023 1: PM CDT [facility] MCH 31.0 27.6 - 33.3 pg 11/08/2023 1: PM CDT [facility] MCHC 33.2 31.5 - 35.2 g/dL 11/08/2023 1: PM CDT [facility] RDW 13.5 11.9 - 15.5 % 11/08/2023 1: PM CDT [facility] Platelets 257 150 - 450 x10(9)/L 11/08/2023 1: PM CDT [facility] Automated NRBC 0 <=0 /100 WBC 11/08/2023 1: PM CDT [facility] Neutrophil Absolute 6.3 1.7 - 7.0 10(9)/L 11/08/2023 1: PM CDT [facility] Lymphocyte Absolute 1.1 1.0 - 4.8 10(9)/L 11/08/2023 1: PM CDT [facility] Monocyte Absolute 0.3 0.2 - 0.9 10(9)/L 11/08/2023 1: PM CDT [facility] Eosinophil Absolute 0.0 0.0 - 0.5 10(9)/L 11/08/2023 1: PM CDT [facility] Basophil Absolute 0.0 0.0 - 0.3 10(9)/L 11/08/2023 1:19 PM CDT [facility] Immature Granulocyte % 0.5 0.0 - 0.5 % 11/08/2023 1:19 PM CDT [facility] Blood Venipuncture / Unknown 11/08/2023 1:04 PM CDT 11/08/2023 1:16 PM CDT Jenaro Robles MD LAB_1 Performing Organization Address [facility]/ZIP Co de Phone Number [facility] [address] * Extra Blue top tube (11/08/2023 1:04 PM CDT) Pathologist [facility] Extra Blue Top Drawn Specimen will be held for 24 hours 11/08/2023 3:00 PM CDT [facility] Blood Venipuncture / Unknown 11/08/2023 1:04 PM CDT 11/08/2023 1:16 PM CDT Jenaro Robles MD LAB_1 Performing Organization Address [facility] de Phone Number [facility] [address] * (ABNORMAL) Basic Metabolic Panel (11/08/2023 1:04 PM CDT) Pathologist [facility] Sodium 140 136 - 145 mmol/L 11/08/2023 1:47 PM CDT [facility] Potassium 4.4 3.5 - 5.1 mmol/L 11/08/2023 1:47 PM CDT [facility] Chloride 105 98 - 109 mmol/L 11/08/2023 1:47 PM CDT [facility] CO2 25 20 - 29 mmol/L 11/08/2023 1:47 PM CDT [facility] Anion Gap 10 6 - 16 mmol/L 11/08/2023 1:47 PM CDT [facility] Calcium 11.0(H) 8.4 - 10.4 mg/dL 11/08/2023 1:47 PM CDT [facility] BUN 35(H) 7 - 26 mg/dL 11/08/2023 1:47 PM CDT [facility] Creatinine 0.89 0.55 - 1.02 mg/dL 11/08/2023 1:47 PM CDT [facility] Glucose 109(H) 70 - 100 mg/dL 11/08/2023 1:47 PM CDT [facility] Comment:The given reference range is for the fasting state. Non-fasting reference range for glucose is 70 - 180 mg/dL. GFR, Estimated >60 >60 mL/min/1.7 3m2 11/08/2023 1:47 PM CDT [facility] Blood Venipuncture / Unknown 11/08/2023 1:04 PM CDT 11/08/2023 1:15 PM CDT Jenaro Robles MD LAB_1 [facility] [address] documented in this encounter Visit Diagnoses [...] - 11/10/2023 4:54 AM CDT Shift Summary [id number]: Cardiac: NSB. SBP goal <170, no intervention [...] - 11/09/2023 6:14 PM CDT Shift Update [id number]: Patient reports feeling better today. Headache, PRN norco effective. ECHO this AM, EF 65%. SBP remains within goal. BP meds adjusted today. Patient bradycardic with rates 30s-50s. SBA to bathroom. Pthas low appetite. Unable to eat a lot of foods due to allergies. Will continue to monitor. * Plan of Care - Iwona Bland - 11/08/2023 5:50 PM CDT [facility] Medication History Note 1. [...] by mouth daily - ProOmega Curcumin by [employer]: Added sig > Take 3 capsules by [...] every week. Take 30 minutes before first rtcc-rvobs-ejuasrjqbx. Avoid lying down for 30 minutes. (Patient taking differently: Take 1 Tablet (70 mg) by mouth once every week. Take 30 minutes before first kalj-krhaq-xihidxueah on mornings. Avoid lying down for 30 [...] Take by mouth daily. ProOmega Curcumin [employer]: Take 3 capsules by mouth daily 11/08/2023 [...] 11/08/2023 12:52 PM CDT Patient arrives from [facility] for evaluation of hypertension. Per EMS [...] to and administered in the Electrophysiology Lab., [facility] Card Started 11/11/2023 2:10 PM CDT 2 [...] to and administered in the Electrophysiology Lab., [facility] Card 1410 (Started - Provider: Shani Zavala [...] 0941 (Given - Provider: Ben Luciano RN) mycophenolate [...] Provider: Ben Luciano RN)2029 (Given - Provider: Aitya Ryan, MENDEL) 09 (Given - Provider: Ben [...] hour prior to the scheduled procedure time., [facility] Card 1410 (Started - Provider: Shani Zavala [...] -prochlorperazine 3rd Line - metoclopramide nystatin (MYCOSTATIN) [id number] UNIT/GM topical powder Topical, BID PRN, Other, [...] chloride (OCEAN) 0.65 % nasal solution 1 Jackson 1 Jackson, Both Nostrils, Q2H PRN, Dry Nose, Starting [...] metoclopramide documented in this encounter Care Teams Iphone Developer Relationship Specialty Start Date End Date Dalton Canales MD [address] [place] [address] PCP - General Family Practice 06/23/23 documented as of this encounter
--- OUTSIDE RECORDS SUMMARY | 2024-01-14 13:37 | XMS_ITS | Encounter Summary ---
Author Organization [employer] Address [address] [place] [address] Care Team Providers Care Mold Yard Worker Name Role Phone Dalton Canales MD Primary Care Provider Reason for Visit * Reason Comments Follow-up Encounter Details Date Type Department Care Team (Late st Contact Info) Description 11/08/2023 11:30 AM CDT [facility] [address] [facility] [address] [place] [address] Juan Luis Rolbes MD [address] [facility] [address] [place], [place] [id number] Hypertensive emergency (Primary Dx) Social History Tobacco Use Types Packs/Day Years Used Date Smoking Tobacco: Former Cigarettes Smokeless Tobacco: Never Alcohol Use Standard Drinks/Week Comments Not Currently 0 (1 standard drink = 0.6 oz pur e alcohol) [facility] Utilities Answer Date Recorded In the past 12 months has [employer] electric, gas, oil, or water company threatened [...] not included. Cardiology Clinic Note Nicolle Covington [id number] 11/08/2023 Referring provider: Dalton Canales MD [address] [facility] [address] Dear Dalton Canales MD, I had the pleasure of seeing Nicolle Covington at the [facility] in [place] today. Problem List Uncontrolled HTN Multiple medication [...] Oral, WEEKLY, Take 30 minutes before first adeo-mpyfe-tdjvxqeglh. Avoid lying down for 30 minutes. aspirin [...] have the ambulance take her to the [facility] ER so that she can be started on treatment there and then be admitted. Arrangements have been made through the hospitalist service at [facility]. Thank you for allowing us to participate in the care of your patient, Nicolle Covington. If you have any questions regarding these recommendations, please feel free to contact me. Juan Luis Robles MD Department of Cardiology [facility] Allergies Allergen Reactions [...] CBD Age-related osteoporosis without current pathological fracture ([facility]) 03/28/2018 Obstructive sleep apnea 03/23/2018 Hypothyroidism ([facility]) 06/30/2017 Chronic SI joint pain ([facility]) 12/20/2016 Onychomycosis of toenail 11/01/2016 Tinea corporis 11/01/2016 Brain aneurysm 08/28/2016 Frequent headaches 08/28/2016 Lupus ([facility]) 11/24/2015 Left-sided tinnitus 11/20/2015 Fibromyalgia 03/31/2015 Subacute cutaneous lupus erythematosus 03/31/2015 Generalized anxiety disorder ([facility]) 06/20/2014 Hypertension ([facility]) 08/23/2011 Stenosis of left carotid artery 08/17/2011 Overview Note: 08/26/11: Right carotid endarterectomy Adjustment disorder with depressed mood ([facility]) 04/09/2007 Tobacco use disorder ([facility]) 07/11/2006 Hyperlipidemia ([facility]) 07/11/2006 Overview Note: does not tolerate [...] Info) Description 01/24/2024 9:00 AM CDT Appointment Diamond [facility] [address] [facility] [address] [place] [phone] 03/14/2024 2:00 PM LAND ACQUISITION SPECIALIST Appointment [facility] [place] [facility] [address] [place] [address] Brandon Kessler MD [address] [place] [address] 03/20/2024 11:15 AM LAND ACQUISITION SPECIALIST Appointment Rheumatology at [facility] [place] [address] [address] [address] [place] [address] Freeman Lopez W, DO [address] [place] [address] documented as of this encounter Visit Diagnoses Diagnosis Hypertensive emergency- Primary Unspecified essential hypertension documented in this encounter Care Teams Mold Yard Worker Relationship Specialty Start Date End Date Dalton Canales MD [address] [place] [address] PCP - General Family Practice 06/23/23 documented as of this encounter
--- OUTSIDE RECORDS SUMMARY | 2024-01-14 13:37 | XMS_ITS | Continuity of Care Document ---
Author Organization [facility] Address [address] [place] [address] Phone Care Team Providers Care Concept Artist Name Role Phone Lemuel Huang MD Unavailable Unavailab le Allergies, Adverse Reactions, Alerts Substance Reaction Status Criticality diltiazem Unknown Active No Information hydralazine Unknown Active No Information duloxetine Unknown Active No Information hydrochlorothiazide Unknown Active No Infor mation Qmaaqes-VXK-QiM Reductase Inhibitors Unknown Acti ve No Information [...] Visit,Est, Mod [facility], [address], [place], [place], [id number], [place] tel:[phone] [facility] Spinal stenosis, lumbar region with neurogenic claudication Reina guzmán [facility] [place], [address], [address], [place], [place], [id number], [place]. tel:[phone] Referring Provider: Mauricio Weston, [address], [address]. tel:[phone] Office/Outpat ient Visit,New, Mod [facility], [address], [place], [place], [id number], [place] tel:[phone] [facility] Spondylolisthe sis, lumbosacral regionSpinal stenosis, lumbosacral region Kalen Mishra. [facility] [place], [address] [place] [address] [address], [place], [place], [id number], [place]. tel:[phone] Referring Provider: Mauricio Weston, [facility] [address], [address]. tel:[phone] Family History Family Member Type Diagnosis Age At Onset No Information Payers Payer name Insurance type Covered democrat ID [id number] tipaula(s) BCBS [id number] [facility] [id number] Social History Type Description Quantity Date Captured [...] Action Status Future Order: Radiology Order AP -Gwa-Feum-Ufj Lum (APLatFlExL), Ordered on: Ordered History Of Present Illness Encounter Date Complaint History Of Prese nt Illness No Information Functional Status Date Functional Assessmen t No Information Instructions Date Instruction Additional Infor mation No Information Assessments Type Assessment Date No Information Patient Care Teams Name Effective Dates (start - stop) Status Members No Information
--- OUTSIDE RECORDS SUMMARY | 2024-01-14 13:37 | XMS_ITS | Encounter Summary ---
Author Organization Replaced by [facility] Address [address] [place] [address] Care Team Providers Care Steam And Power Supervisor Name Role Phone Dalton Esqueda MD Primary Care Provider Encounter Details Date Type Department Care Team (Late st Contact Info) Description 10/26/2023 11:10 AM CDT Lab Visit [facility] [address] [place], [place] [phone] High risk medication use Social History Tobacco [...] 01/24/2024 9:00 AM CDT Appointment [facility] [place] [address] Electrophysiology [address] [place] [phone] 03/14/2024 2:00 PM UNIT MANAGER Appointment [facility] [place] Neurosurgery/Ortho Spine [address] [place] [address] Brandon Kessler MD [address] [place] [address] 03/20/2024 11:15 AM UNIT MANAGER Appointment Rheumatology at [facility] [place] [address] [address] [address] [place] [address] DesFreeman brand DO [address] [place] [address] documented as of this encounter Procedures Procedure [...] 10.5 x10(9)/L 10/26/2023 11:07 AM [facility] RBC 3.89(L) 3.90 - 5.03 x10(12)/L 10/26/2023 11:07 AM [facility] Hemoglobin 12.0 12.0 - 15.5 g/dL 10/26/2023 11:07 AM [facility] HCT 36.3 34.9 - 44.5 % 10/26/2023 11:07 AM [facility] MCV 93.3 80.0 - 100.0 fL 10/26/2023 11:07 AM [facility] MCH 30.8 27.6 - 33.3 pg 10/26/2023 11:07 AM [facility] MCHC 33.1 31.5 - 35.2 g/dL 10/26/2023 11:07 AM [facility] RDW 13.5 11.9 - 15.5 % 10/26/2023 11:07 AM [facility] Platelets 271 150 - 450 x10(9)/L 10/26/2023 11:07 AM [facility] Automated NRBC 0 <=0 /100 WBC 10/26/2023 11:07 AM [facility] Neutrophil Absolute 5.6 1.7 - 7.0 10(9)/L 10/26/2023 11:07 AM [facility] Lymphocyte Absolute 1.2 1.0 - 4.8 10(9)/L 10/26/2023 11:07 AM [facility] Monocyte Absolute 0.4 0.2 - 0.9 10(9)/L 10/26/2023 11:07 AM [facility] Eosinophil Absolute 0.1 0.0 - 0.5 10(9)/L 10/26/2023 11:07 AM [facility] Basophil Absolute 0.0 0.0 - 0.3 10(9)/L 10/26/2023 11:07 AM [facility] Immature Granulocyte % 0.4 0.0 - 0.5 % 10/26/2023 11:07 AM [facility] Blood Venipuncture / Unknown 10/26/2023 11:04 AM CDT 10/26/2023 11:04 AM CDT Luke W Desilet DO [facility] [address] [place] [address] * (ABNORMAL) Comp Metabolic Panel (10/26/2023 11:04 AM CDT) Sodium 139 136 - 145 mmol/L 10/26/2023 1:06 PM [facility] Potassium 4.9 3.5 - 5.1 mmol/L 10/26/2023 1:06 PM [facility] Chloride 106 98 - 109 mmol/L 10/26/2023 1:06 PM [facility] CO2 23 20 - 29 mmol/L 10/26/2023 1:06 PM [facility] Anion Gap 10 6 - 16 mmol/L 10/26/2023 1:06 PM [facility] Calcium 10.5(H) 8.4 - 10.4 mg/dL 10/26/2023 1:06 PM [facility] Comment:Low serum albumin ma y artificially lower total calcium, without impacting ionized calcium concentrations. If patient has or is at risk for hypoalbuminemia, consider ionized serum calcium to more accurately assess calcium status. BUN 36(H) 7 - 26 mg/dL 10/26/2023 1:06 PM [facility] Creatinine 1.18(H) 0.55 - 1.02 mg/dL 10/26/2023 1:06 PM [facility] Alkaline Phosphatase 38(L) 40 - 150 U/L 10/26/2023 1:06 PM [facility] AST (SGOT) 22 10 - 40 U/L 10/26/2023 1:06 PM [facility] ALT (SGPT) 16 <=55 U/L 10/26/2023 1:06 PM [facility] Bilirubin, Total 0.4 0.2 - 1.2 mg/dL 10/26/2023 1:06 PM [facility] Protein, Total 7.0 6.4 - 8.3 g/dL 10/26/2023 1:06 PM [facility] Albumin 3.7 3.5 - 5.0 g/dL 10/26/2023 1:06 PM [facility] Glucose 105(H) 70 - 100 mg/dL 10/26/2023 1:06 PM [facility] Comment:The given reference range is for the fasting state. Non-fasting reference range for glucose is 70 - 180 mg/dL. GFR, Estimated 50(L) >60 mL/min/1. 73m2 10/26/2023 1:06 PM [facility] Hours Fasting 2.0 8 - 12 Hours 10/26/2023 1:06 PM [facility] Blood Venipuncture / Unknown 10/26/2023 11:04 AM T 10/26/2023 11:04 AM [facility] - 10/26/2023 1:06 PM [facility] The National Kidney Disease Education Program suggests measuring Cystatin C in patients with eGFRcrea of 45 to 59 ml/min/1.73^2 who do not have other markers of kidney damage (i.e. elevated urine Albumin/Creatinine Ratio or a prior Cystatin C confirming the presence of chronic kidney disease). Freeman W Desilet DO [facility] [address] [place] [address] documented in this encounter Visit Diagnoses Diagnosis High risk medication use Encounter for long-term (current) use of other medications documented in this encounter Care Teams Steam And Power Supervisor Relationship Specialty Start Date End Date Dalton Esqueda MD [address] [place] [address] PCP - General Family Practice 06/23/23 documented as of this encounter
--- OUTSIDE RECORDS SUMMARY | 2024-01-14 13:37 | XMS_ITS | Encounter Summary ---
Author Organization [facility] Address [address] [place] [address] Care Team Providers Care Assembly Machine Set Up Mechanic Name Role Phone Dalton Esqueda MD Primary Care Provider [phone] Reason for Visit * Reason Comments Medication Follow Up Encounter Details Date Type Department Care Team (Late st Contact Info) Description 10/10/2023 Telephone [facility] [address] [place] [address] Eva Long MD [address] [place] [address] Medication Follow Up Social History Tobacco [...] use goodrx and go [facility]. Transferred prescription per protocol * Eva Long MD - 10/10/2023 12:50 PM CDT Please let her know that the tacrolimus was not covered. With [facility] you can get [...] 9:[address] [facility] [address] Electrophysiology [address] [place] [phone] 03/14/2024 2:00 PM RETAIL WORKER Appointment [facility] Neurosurgery/Ortho Spine [address] [place] [address]. [place] [address] Brandon Kessler MD [address] [place] [address] 03/20/2024 11:15 AM RETAIL WORKER Appointment Rheumatology at [facility] [place] [address] [address] [address] [place], [place] [phone] Freeman Lopez, [address] [place], [place] [address] documented as of this encounter Visit Diagnoses Diagnosis Lupus (HRC) Systemic lupus erythematosus documented in this encounter Care Teams Assembly Machine Set Up Mechanic Relationship Specialty Start Date End Date Dalton Esqueda MD [address], [place] [address] PCP - General Family Practice 06/23/23 documented as of this encounter
--- OUTSIDE RECORDS SUMMARY | 2024-01-14 13:37 | XMS_ITS | Encounter Summary ---
Author Organization [employer] Address [address] [place] [address] Care Team Providers Care Bag Loader Machine Operator Name Role Phone Dalton Esqueda MD Primary Care Provider Reason for Visit * Reason Comments Post-Op Problem BLOOD PRESSURE, HIGH Encounter Details Date Type Department Care Team (Late st Contact Info) Description 11/15/2023 Nurse Triage Careline [address] [place], [place] [address] Unknown, Physician [address] [place], [place] [phone] Post-Op Problem; BLOOD PRESSURE, HIGH Social History Tobacco Use Types Packs/Day Years Used Date Smoking Tobacco: Former Cigarettes Smokeless Tobacco: Never Alcohol Use Standard Drinks/Week Comments Not Currently 0 (1 standard drink = 0.6 oz pur e alcohol) [facility] Utilities Answer Date Recorded In the past 12 months has [employer], gas, oil, or water [place] threatened to shut off services in your [...] symptoms/situation): Patient states that she was at [facility] last week for uncontrolled HTN. [...] neurologic symptoms Protocols used: Blood Pressure - [id number] Plan: MD Consult, Vinay Lindsay Paged at [...] AM CDT Appointment [facility] [address] Electrophysiology [address] [place] [phone] 03/14/2024 2:00 PM ARC TRIMMER Appointment [facility] Neurosurgery/Ortho Spine [address] [place] [address]. [place] [address] Brandon Kessler MD [address] [place] [address] 03/20/2024 11:15 AM ARC TRIMMER Appointment Rheumatology at [facility] [place] [address] [address] [address] [place] [address] DesjagdishtFreeman W, DO [address] [place] [address] documented as of this encounter Visit Diagnoses Not on filedocumented in this encounter Care Teams Bag Loader Machine Operator Relationship Specialty Start Date End Date Dalton Esqueda MD [address] [place] [address] PCP - General Family Practice 06/23/23 documented as of this encounter
--- OUTSIDE RECORDS SUMMARY | 2024-01-14 13:38 | XMS_ITS | Clinical Summary ---
Author Organization [facility] Address [place], [place] [address] Care Team Providers Care Aquaculture Director Name Role Phone Theresa Vázquez PhD, Unavailable [phone] Abhinav Miranda MD Unavailable [phone] [facility] Unavailable [phone] Rambo Cordova MD Unavailable [phone] Abhinav Miranda MD Unavailable Dalton Esqueda MD [...] had adverse reactions previously Hydroxychloroquine Anxiety 08/23/2011 Ippiaua-Rfi-Jzf Reductase Inhibitors Myalgia 04/01/2015 Sulfasalazine Rash 05/17/2019 Tetracycline Vomiting,GI Upset 07/11/2006 Medications Medication Sig Dispensed Refills Start Date End Date Status aspirin enteric coated 81 mg tablet Take 1 tablet by mouth every 24 hours. 0 2 Active meloxicam 15 mg tabletIndications: Sjogren's syndrome, with unspecified organ involvement (HC) TAKE 1 TABLET(15 MG) BY MOUTH EVERY DAY 90 Tablet 2 Active predniSONE (DELTASONE) 10 mg tablet Take 10 mg by mouth once daily with a meal. 2 Active medication order composerIndication s:Sjogren's syndrome, with unspecified [...] one twice a day 0 2 Active medication order composerIndication s:Sjogren's syndrome, with unspecified [...] to affected area(s) two times daily. Active ezetimibe (ZETIA) 10 mg tabletIndications: Hyperlipidemia, unspecified hyperlipidemia type Take 1 Tablet (10 mg) by mouth once daily. 90 Tablet 4 Active alirocumab (Praluent Pen) 75 mg/mL pnijIndications:Hy perlipidemia, unspecified hyperlipidemia type Inject 75 mg subcutaneous every 2 weeks. 6 mL 4 Active ezetimibe (ZETIA) 10 mg tabletIndications: Hyperlipidemia, unspecified hyperlipidemia type Take 1 Tablet (10 mg) by mouth once daily. 90 Tablet 3 3 12/28/19 24 Discontinued alirocumab (Praluent Pen) 75 mg/mL pnijIndications:Hy perlipidemia, unspecified hyperlipidemia type Inject 75 mg subcutaneous every 2 weeks. 6 mL 3 3 12/28/19 24 Discontinued Active Problems Problem Noted Date [...] carotid artery 03/01/2017 [place]rolled [place] [facility] [place]19 17 Chronic SI joint pain 12/20/2016 [...] CDT - 01/12/2024 2:18 PM CDT Emergency [facility] [address] [place] [address] Discharge Disposition: Home Self Care 01/12/2024 1:16 PM CDT - 01/12/2024 7:02 PM CDT Hospital Encounter [facility] [address] [place] [address] Mitchel Marmolejo MBBS Discharge Disposition: Home Self Care 01/12/2024 1:03 PM CDT Anesthesia Event [facility] [address] [place] [address] Armida Juarez MD 01/12/2024 Orders Only [facility] [address] [place] [phone] Bonita Mcdaniels PA <No scans attached> 01/12/2024 Travel 01/11/2024 Telephone [facility] [address] [place] [phone] Mitchel Marmolejo MBBS Medication information 12/28/2023 Refill [facility] [address] [place] [phone] Eugene Araya MD Refill Request (Ezetimibe, Praluent Pen) 12/07/2023 11:00 AM CDT Office Visit [facility] [address] [place] [phone] Mitchel Marmolejo MBBS Follow Up (carotid stenosis) 12/07/2023 7:58 AM CDT - 12/07/2023 11:59 PM CDT Hospital Encounter [facility] [address] [place] [address] Mitchel Marmolejo MBBS Iliac artery stenosis, bilateral (HC); Carotid stenosis, bilateral 12/07/2023 Travel 11/28/2023 Refill [facility] [address] [place] [address] Eugene Araya MD Refill Request (Praluent Pen) 10/20/2023 1:20 PM CDT Telemedicine [facility] [address] [place] [address] Suman'Grayson Johnson MD Follow Up; Telehealth (No vitals taken) 10/20/2023 Travel 10/17/2023 Refill [facility] [address] [place] [phone] Carlo Ayala MD Refill Request (naltrexone) [...] Appointment [facility] [address] [facility] [[email or web address] [address] [place] [address] 02/15/2024 10:00 AM CDT Appointment [facility] [address] [place] [address] 02/15/2024 10:45 AM CDT Office Visit [facility] [address] [place] [phone] Mitchel Marmolejo MBBS [address] [place] [address] Health Maintenance Due Date Last Done Comments [...] 04/28/2021, 03/06/2015 Medical Devices Implanted Type Area Systems Programmer Device Identifier Shelf Expiration Date Model / Serial / Lot Sut Ouray [id number] Bio Swivelock - [id number] Implanted:Qty: 4 on 04/12/2007 at [facility] Right: Shoulder [employer] AR-[id number] L# / / [id number] Fiberchain 7mm10 Loops - [id number] Implanted:Qty: 4 on 04/12/2007 at [facility] Right: Shoulder [employer] AR-7270# / / Patch Vasc 0.8x8cm Biological Peripatch - [id number] Implanted:Qty: 1 on 08/26/2011 by Brain Nolasco MD at [facility] Right: Carotid Artery [employer] 08/25/2013 0.8P8# / / [id number] Graft Vasc 0.3x3in Hemashield Stra Fabric Knitted Dbl - [id number] Implanted:Qty: 1 on 03/01/2017 by Brain Quiroga MD at [facility] Left: Carotid Artery [employer] 06/22/2021 [...] intolerance ANTI HCV Today 04/28/2021 10:51 AM PRECIPITATE WASHER Leukopenia, unspecified type COLONOSCOPY 10/02/2020 8:44 AM CDT XR DXA BONE DENSITY 2 SITES AXIAL Routine 02/22/2020 1:20 PM CDT Chronic midline low back pain with right-sided sciatica Fibromyalgia Mixed connective tissue disease (HC) Sjogren's syndrome with myopathy (HC) XR MAMMO BILAT SCREENING Routine 03/07/2019 3:23 PM PRECIPITATE WASHER Visit for screening mammogram from Last 3 Months or Most Recently Relevant to Health Maintenance Results * US CAROTID DUPLEX BILATERAL (12/07/2023 10:06 AM CDT) Anatomical Region Laterality Modality CAROTID, NECK Ultrasound 12/07/2023 8:22 AM CDT Narrative 12/07/2023 10:27 AM CDT VASCULAR ULTRASOUND REPORT NICOLLE COVINGTON Accession#: ?? [id number] : ?1955 Study Date: ?? 12/07/2023 8:22:07 AM Age: ?68 years ?? Tech: ? JAG Gender: F ?Referring MD: MITCHEL MARMOLEJO Site: [facility] Study performed: ?Carotid Indication for Study: follow-up [...] Accreditation Commission (IAC/Vascular), [email or web address].org/vascular Report generated by TL[employer]. ??Final ?? Procedure Note Mitchel Marmolejo MBBS - 12/07/2023 VASCULAR ULTRASOUND REPORT NICOLLE COVINGTON : 1955 Study Date: 12/07/2023 8:22:07 AM Age: 68 years Tech: JAG Gender: F Referring MD: MITCHEL MARMOLEJO Site: [facility] Vascular [facility] Study performed: Carotid Indication for Study: [...] theIntersocietal Accreditation Commission (IAC/Vascular),www.[email or web address].[email or web address]/vascular Report generated by TLabs. Final Mitchel HOOKS US * US ANKLE BRACHIAL INDEX BILATERAL (12/07/2023 10:06 AM CDT) Anatomical Region Laterality Modality ANKLES, ANKLE L, ANKLE R Ultraso und 12/07/2023 8:16 AM CDT Narrative 12/07/2023 10:22 AM CDT VASCULAR ULTRASOUND REPORT NICOLLE COVINGTON Accession#: ?? [id number] : ?1955 Study Date: ?? 12/07/2023 8:16:00 AM Age: ?68 years ?? Tech: ? JAG Gender: F ?Referring MD: MITCHEL MARMOLEJO Site: [facility] Vascular [facility] Study performed: ?Lower extremity resting ISMAEL, (bilateral). [...] ? Index +-----+ +--------+ +-----+ 0.97 ?163 ?CROWN AND BRIDGE TECHNICIAN ?89 ? 0.53 +-----+ +--------+ +-----+ 0.94 ?158 ?DPA ?79 ? 0.47 +-----+ +--------+ +-----+ 0.60 ?101 ? Digit 1 ?54 ? 0.32 +-----+ +--------+ +-----+ NEVA Araujo. Electronically signed on 12/07/2023 10:22:46 AM This study was performed and interpreted by a service accredited by the Intersocietal Accreditation Commission (IAC/Vascular), www.intersocietal.org/vascular Report generated by TLabs. ??Final ?? Procedure Note Mitchel Marmolejo MBBS - 12/07/2023 VASCULAR ULTRASOUND REPORT NICOLLE COVINGTON : 1955 Study Date: 12/07/2023 8:16:00 AM Age: 68 years Tech: KIERA Gender: F Referring MD: MITCHEL MARMOLEJO Site: [facility] Study performed: Lower extremity resting [...] 168 Index +-----+ +--------+ +-----+ 0.97 163 CROWN AND BRIDGE TECHNICIAN 89 0.53 +-----+ +--------+ +-----+ 0.94 158 DPA 79 0.47 +-----+ +--------+ +-----+ 0.60 101 Digit 1 54 0.32 +-----+ +--------+ +-----+ NEVA Araujo. Electronically signed on 12/07/2023 10:22:46 AM This study was performed and interpreted by a service accredited by theIntersocietal Accreditation Commission (IAC/Vascular),[email or web address].[email or web address]/vascular Report generated by TLabs. Final Mitchel HOOKS US * US AORTA ILIACS IVC WITH DUPLEX (12/07/2023 10:06 AM CDT) Anatomical Region Laterality Modality AORTA, Abdomen Ultrasound 12/07/2023 9:07 AM CDT Narrative 12/07/2023 10:28 AM CDT VASCULAR ULTRASOUND REPORT NICOLLE COVINGTON Accession#: ?? [id number] : ?1955 Study Date: ?? 12/07/2023 9:07:34 AM Age: ?68 years ?? Tech: ? JAG Gender: F ?Referring MD: MITCHEL MARMOLEJO Site: [facility] Study performed: ?Aorta, Iliac, (bilateral) Indication [...] Accreditation Commission (IAC/Vascular), www.intersocietal.org/vascular Report generated by TLabs. ??Final ?? Procedure Note Mitchel Marmolejo MBBS - 12/07/2023 VASCULAR ULTRASOUND REPORT NICOLLE COVINGTON : 1955 Study Date: 12/07/2023 9:07:34 AM Age: 68 years Tech: KIERA Gender: F Referring MD: MITCHEL MARMOLEJO Site: [facility] Study performed: Aorta, Iliac, (bilateral) [...] theIntersocietal Accreditation Commission (IAC/Vascular),www.[email or web address].[email or web address]/vascular Report generated by TL[employer]. Final Mitchel HOOKS US * LIPID PANEL W REFLEX MEASURED LDL (01/14/2022 7:58 AM CDT) Pathologist [facility] CHOLESTEROL,TOTAL 159 100 - 199 mg/dL 01/14/2022 9:36 AM T [facility] TRIGLYCERIDES 130 <150 mg/dL 01/14/2022 9:36 AM CDT [facility] HDL CHOLESTEROL 75 >40 mg/dL 9:36 AM CDT [facility] NON-HDL CHOLESTEROL 84 <145 mg/dl 01/14/2022 9:36 AM T [facility] CHOL/HDL RATIO 2.12 <4.50 01/14/2022 9:36 AM CDT [facility] LDL CHOLESTEROL 58 <=130 mg/dL 01/14/2022 9:36 AM CDT [facility] VLDL CHOLESTEROL 26 <=30 mg/dL 01/14/2022 9:36 AM CDT [facility] PROVIDER ORDERED STATUS FASTING 01/14/2022 9:36 AM CDT [facility] Blood BLOOD SPECIMEN / Unknown Venipuncture / Unknown 01/14/2022 7:58 AM CDT 01/14/2022 8:18 AM CDT Yu Bradley NP CHEMISTRY [facility] [address] [place] [address] * ANTI HCV (04/28/2021 10:51 AM PRECIPITATE WASHER) HEPATITIS C ANTIBODY Non-React epi Non-React epi 04/28/2021 4:25 PM PRECIPITATE WASHER [facility] Comment:Antibodies to HCV no t detected; does not exclude the possibility of exposure to HCV. Blood BLOOD SPECIMEN / Unknown Venipuncture / Unknown 04/28/2021 10:51 AM PRECIPITATE WASHER 04/28/2021 10:51 AM PRECIPITATE WASHER Giselle Sheffield MD SEND OUTS [facility] [address] [place] [address], * COLONOSCOPY (10/02/2020 8:44 AM CDT) 10/02/2020 8:44 AM CDT Narrative Transcriptions Daysi George DO - 10/06/2020 9:14 PM CDT Patient Name: Nicolle Covington Procedure Date: 10/02/2020 Gender: Female Date of : 1955 Admit Type: Ambulatory Procedure: Colonoscopy Proceduralist: Daysi George MD [facility] Indications/Pre-Op Diagnosis: High risk [...] rate, blood pressure, and response to care. Dayis George MD 10/06/2020 9:14:07 PM This report has been signed electronically. Note Initiated On: 10/02/2020 8:44 AM Daysi George DO PROCEDURE ORD * (ABNORMAL) XR DXA BONE DENSITY 2 SITES AXIAL (02/22/2020 1:20 PM CDT) Anatomical Region Laterality Modality Spine, HIPS, HIPL, HIPR Bone Den sitometry Narrative 02/25/2020 10:39 AM PRECIPITATE WASHER Please see scanned document for results of this study. Mauricio Muñoz MD DEXA * XR MAMMO BILAT SCREENING (03/07/2019 3:23 PM PRECIPITATE WASHER) Anatomical Region Laterality Modality BREASTS, Breast Left, Breast Right Bilateral Mammography Impressions 03/08/2019 6:55 AM PRECIPITATE WASHER ??There is no radiographic evidence for malignancy. ??Recommend annual mammograms. A lay language report of this examination will be provided to the patient. MAMMOGRAM ASSESSMENT: ??ACR 1 Negative Narrative 03/08/2019 6:55 AM PRECIPITATE WASHER XR MAMMO BILAT SCREENING [[id number]] CLINICAL HISTORY: ??This is an asymptomatic 63 [...] Documents on File Type Date Recorded Patient Mica Inspector Expl anation Healthcare Directive 03/24/2023 023 * [...] 5:42 AM 03/01/2017 11:49 AM Care Teams Aquaculture Director Relationship Specialty Start Date End Date Dalton Esqueda MD [address] [place] [address] PCP - General Family Practice 10/15/20 Theresa Vázquez, PhD, LP Psychologist Psychology 06/23/11 Abhinav Miranda MD Dermatology Dermatology 08/07/15 [facility] 09/14/16 Rambo Cordova MD [address] [place] [address] Rheumatology Rheumatology 04/07/17 Abhinav Miranda MD Dermatology 07/11/17
--- OUTSIDE RECORDS SUMMARY | 2024-01-14 13:38 | XMS_ITS | Patient Health Record ---
Author Organization [facility] Address [address] [place] [address] [address] [place] [address] Care Team Providers Care Senior Firmware Engineer Name Role Phone Dalton Pena MD Primary Care Provider Unavailable Rambo Raymond Unavailable [phone] Dalton Dale MD Unavailable Unavail able Allergies [...] Unknown Drug Allergy Activ e Substance with 6-ijxukvi-9-methylglutar yl-coenzyme A reductase inhibitor mechanism of action (substance) Statins Unknown Drug Allergy Active sulfasalazine Sulfasalazine Unknown Drug Allergy Active venlafaxine Venlafaxine Unknown Drug Allergy Act epi Reason For Referral No Information Medications Medication SIG (Take, Route, Frequency, Duration) Notes Start Date End Date Status Mupirocin 2 % 1 application Applications Tester ally Twice a day Active Temovate 0.05 % 1 application Applications Tester ally Twice a day Active Ondansetron Active [...] Status Risk Notes Problem Systemic lupus erythematosus (12257641) Systemic lupus erythematosus, unspecified (M32.9) Active confirmed Problem Cervical spondylosis without myelopathy (526888739) Spondylosis without myelopathy or radiculopathy, cervical region (M47.812) Active confirmed Problem Lumbosacral spondylosis without myelopathy (48947197) Spondylosis without myelopathy or radiculopathy, lumbar region (M47.816) Active confirmed Problem Backache (927806911) Dorsalgia, unspecified (M54.9) Active confirmed Problem Muscle wasting disorder (36049199) Muscle wasting and atrophy, not elsewhere classified, multiple sites (M62.59) Active confirmed Problem Impingement syndrome of shoulder region (148680442) Impingement syndrome of right shoulder (M75.41) Active confirmed Problem Age-related osteoporosis (860308057) Age-related osteoporosis without current pathological fracture (M81.0) Active confirmed Problem Abnormal gait (57332748) Unspecified abnormalities of gait and mobility (R26.9) Active confirmed Problem Neck pain (47313679) Neck pain (M54.2) Active confirmed Problem Headache disorder (393019338) Headache disorder (R51.9) Active confirmed Problem Low back pain (109823798) Low back pain (M54.50) Active confirmed Plan Of Treatment No Information Insurance Providers Payer Name Payer Address Payer Phone Subscriber Number Group Number Insured Name Patient Relationship to Insured Coverage Start Date Coverage End Date Medicare Part B [employer] [address] [place] [phone] [id number] Nicolle [place] Self - patient is the insured [address] [facility] [address] [address] [place] [address] [id number] Nicolle [place] Self - patient is the [...]
--- OUTSIDE RECORDS SUMMARY | 2024-01-14 13:38 | XMS_ITS | Continuity of Care Document ---
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 [address] [facility], [facility] [address], [place], [place], [id number], [place]. tel:[phone] [facility], [address] [address], [place], [place], [id number], [place] tel:[phone] [place] Abdominal distension (gaseous) 4 Andrew Wright. [address] [facility], [facility] [address], [place], [id number], [place]. tel:[phone] Referring Provider: Dalton Esqueda MD, [address] [place] [address], [address]. tel:[phone] [facility], [address] [address], [facility], [id number], [place] tel:[phone] [facility] GI Symptoms or Concerns (chief complaint) Gastric ulcer without hemorrhage or perforation, unspecified chronicityBloati ngGastric ulcer, unsp as acute or chronic, w/o hemor or perfAbdominal distension (gaseous)Other diseases of stomach and duodenumDiaphrag matic hernia without obstruction or gangrene 4 Sadaf Velasquez. [address] [place] [address], [id number], [place]. tel:[phone] Referring Provider: Referral Self, USE FOR SELF REFERRALS. [facility], [address] [address], [facility] [place], [address], [place] tel:[phone] [facility] GI Symptoms or Concerns (chief complaint) Gastric ulcer without hemorrhage or perforation, unspecified chronicity 3 Sadaf Velasquez. [facility], [id number], [place]. tel:[phone] Referring Provider: Referral Self, USE FOR SELF REFERRALS. [facility], [address] [address], [place], [address], [place] tel:[phone] [facility] No Information 3 Abhijeet Gonzales. [address] [facility], [address], [id number], [place]. tel:[phone] [facility], [address] [address], [place], [address], [place] tel:[phone] [facility] GI Symptoms or Concerns (chief complaint) Gastric erythemaGastric ulcer without hemorrhage or perforation, unspecified chronicityColore ctal polypsHemorrhoid s, internalEncounte r for screening for malignant neoplasm of colonPersonal history of colonic polypsBenign neoplasm of transverse colonDisease of stomach and duodenum, unspecifiedBenig n neoplasm of transverse colon 3 Sadaf Velasquez. [address] [facility], [address], [id number], [place]. tel:[phone] Referring Provider: Referral Self, USE FOR SELF REFERRALS. [facility], [address] [address], [place], [place], [id number], tel:[phone] [facility] Hypercalcemia Dec-0 3 Melquiades Winn. [address] [facility], [address], [id number], [place]. tel:[phone] Offic/outpt E&m [facility], [address] [address], [place], [place], [address], [place] tel:[phone] [facility] GI Symptoms or Concerns (chief complaint) Generalized abdominal painWeight lossPersonal history of colonic polypsEpigastric pain 3 Melquiades Winn. [address], [id number], [place]. tel:[phone] Referring Provider: Dalton Esqueda MD, [address] [place], [address]. tel:[phone] [facility], [address] [address], [place], [place], [address], [place] tel:[phone] No Information 3 No Information Referring Provider: Dalton Esqueda MD, [address] [place], [address]. tel:[phone] Family History Family Member Type Diagnosis Age [...] bi-directional interface ; Source: Other Registry Novel [id number], all formulations administered Note: [facility] bi-direct ional interface ; Source: Other Registry Pneumovax 23 administered Note: [facility] bi-d irectional interface ; Source: Other Registry Payers Payer name Insurance type Covered democrat ID Authoriza tion(s) Medicare NGS MB [id number] [employer] [facility] [id number] Social History Type Description Quantity Date Captured [...]
[2024-01-14] MEDS: 0.9 % SODIUM CHLORIDE 1000 ml 1,000 ML IV ×2 (13:47→21:17)
[2024-01-14] MEDS: KETOROLAC 15 MG/ML inj IVP ×2 (13:48→22:21)
[2024-01-14] MEDS: ONDANSETRON 2 MG/ML inj 4 MG IVP ×2 (13:50→19:53)
[2024-01-14 14:00] LABS: Basophils Percent Auto 0.1 % (0.0-3.0); Hematocrit 39.7 % (33.0-51.0); Hemoglobin* 13.5 gm/dL (12.0-16.0); Immature Granulocytes Pct Auto 0.1 %; Lymphocytes Percent Auto 4.5 % (20-44); Mean Corpuscular HGB Conc 34 gm/dL (32-36); Mean Corpuscular Hemoglobin 30 pg (26-34); Mean Corpuscular Volume 87 fL (80-100); Monocytes Percent Auto 6.7 % (0.0-11.0); Neutrophils Percent Auto 88.6 % (42.0-72.0); Platelet Count* 290 K/uL (140-440); RDW Coefficient of Variation % 12.6 % (11.5-15.5); Red Blood Count 4.54 m/uL (4.00-5.20); White Blood Count* 14.34 K/uL (4.50-11.00)
[2024-01-14 14:01] LABS: Creatinine, Point-of-Care* 1.2 mg/dl (0.6-1.3)
[2024-01-14 14:09] LABS: Lactate Sepsis w/Reflex* 1.7 mmol/L (0.5-1.9)
[2024-01-14 14:22] LABS: Albumin* 4.5 g/dL (3.3-5.0); Chloride* 91 mmol/L (96-114)
[2024-01-14 14:23] LABS: Potassium* 4.9 mmol/L (3.6-5.1); Sodium* 125 mmol/L (135-149)
[2024-01-14 14:25] LABS: Est. Creatinine Clearance* 47.14; Estimated Glomerular Filt Rate 61 ml/min
[2024-01-14 14:26] LABS: Alanine Aminotransferase* 19 U/L (4-35); Alkaline Phosphatase* 41 U/L (40-150); Anion Gap 12 mEq/L (7-15); Aspartate Amino Transferase* 36 U/L (12-35); Bilirubin Total* 0.7 mg/dL (0.1-1.5); Blood Urea Nitrogen* 41 mg/dL (7-30); Calcium* 10.3 mg/dL (8.4-10.6); Carbon Dioxide* 22 mmol/L (20-32); Glucose* 136 mg/dL (60-115); Lipase* 114 U/L (23-300); Total Protein* 7.4 g/dL (6.0-8.3)
[2024-01-14 14:38] LABS: Appearance Urine Clear (Clear); Bilirubin Urine Negative (Negative); Blood Urine Trace-intact (Negative); Color Urine Yellow (Yellow); Glucose Urine Negative (Negative); Ketones Urine 2+ (Negative); Leukocyte Esterase Urine Negative (Negative); Nitrite Urine Negative (Negative); Protein Urine 2+ (Negative); Specific Gravity Urine 1.025 (1.000-1.030); Urobilinogen Urine 0.2 (0.2-1.0)
[2024-01-14 14:38] LABS: Slide Review Reflex No
[2024-01-14] MEDS: MORPHINE 4 MG/ML INJ IVP ×2 (14:42→19:54)
[2024-01-14 14:51] LABS: RBC Urine 0-2 (0-2); WBC Urine 0-2 (0-5)
[2024-01-14] MEDS: LORazepam 2 MG/ML inj 0.5 MG IVP ×2 (15:43→20:57)
--- NOTE | 2024-01-14 15:53 | CRLHL7_ITS ---
For Patients: As a result of the Century Cures Act, medical imaging exams and procedure reports are released immediately into your electronic medical record. You may view this report before your referring provider. If you have questions, please contact your health care provider. CLINICAL HISTORY: Pain nausea vomiting abdominal FINDINGS: Gallbladder appears hydropic gallbladder wall measures 3 millimeters within normal limits no stones are seen common bile duct measures 6 millimeters no intraductal stones. IMPRESSION: Hydropic appearing gallbladder without stones or wall thickening. Dictated by Jelena Hung MD @ 01/14/2024 4:50:57 PM (Electronically Signed)
[2024-01-14] MEDS: PANTOPRAZOLE SODIUM 40 MG INJ IVP (16:22)
[2024-01-14 16:33] LABS: SARS PCR* Negative SARS-CoV-2 (Negative)
[2024-01-14 17:09] LABS: Troponin I* 0.66 ng/mL (0.01-0.04)
[2024-01-14 18:01] LABS: Troponin I* 0.67 ng/mL (0.01-0.04)
[2024-01-14] MEDS: 0.9 % SODIUM CHLORIDE 1000 ml 1,000 ML 125 ML IV (19:05)
--- NOTE | 2024-01-14 19:11 | P.GSCN_ITS ---
History of Present Illness Consult details Date Seen: 01/14/24 Consult date: 01/14/24 Narrative: Patient is a 68-year-old female who was admitted for abdominal pain, nausea and vomiting. She says the pain started about 3 weeks ago. It began with diarrhea. She then started to have nausea and vomiting. She has had a decrease in appetite and felt fatigued. She last ate on Tuesday. Her pain is around the center of her abdomen. Denies any fevers, has felt chilled. Her abdominal surgical history is positive for a hysterectomy, where they also took her appendix. Review of Systems Status of ROS: Reports: 6 or more systems reviewed and unremarkable except as noted in History and below [facility] Medical History History of pacemaker ?Z95.0 - Presence of cardiac pacemaker (ICD-10) COVID-19 ?U07.1 - COVID-19 (ICD-10) Health care directive on file ?Z78.9 - Other specified health status (ICD-10) COPD (chronic obstructive pulmonary disease) ?J44.9 - Chronic obstructive pulmonary disease, unspecified (ICD-10) Post herpetic neuralgia ?B02.29 - Other postherpetic nervous system involvement (ICD-10) Mixed hyperlipidemia ?E78.2 - Mixed hyperlipidemia (ICD-10) Primary hypertension ?I10 - Essential (primary) hypertension (ICD-10) Chronic sinus infection ?J32.9 - Chronic sinusitis, unspecified (ICD-10) DJD (degenerative joint disease), lumbosacral ?M47.817 - Spondylosis without myelopathy or radiculopathy, lumbosacral reg ion (ICD-10) Sjogren's syndrome (2013) ?M35.00 - Sjogren syndrome, unspecified (ICD-10) Positive antinuclear antibody (07/21/11) ?R76.8 - Other specified abnormal immunological findings in serum (ICD-10) Peripheral vascular disease ?I73.9 - Peripheral vascular disease, unspecified (ICD-10) Osteoporosis ?M81.0 - Age-related osteoporosis without current pathological fracture (ICD- 10) Obstructive sleep apnea syndrome (03/23/18) ?G47.33 - Obstructive sleep apnea (adult) (pediatric) (ICD-10) Hypothyroidism (06/30/17) ?E03.9 - Hypothyroidism, unspecified (ICD-10) History of lichen planus ?Z87.2 - Personal history of diseases of the skin and subcutaneous tissue (ICD-10) History of colonic polyps ?Z86.010 - Personal history of colonic polyps (ICD-10) History of basal cell carcinoma (BCC) ?Z85.828 - Personal history of other malignant neoplasm of skin (ICD-10) Generalized anxiety disorder (06/20/14) ?F41.1 - Generalized anxiety disorder (ICD-10) Fibromyalgia (2012) ?M79.7 - Fibromyalgia (ICD-10) Deafness in left ear (11/20/15) ?H91.92 - Unspecified hearing loss, left ear (ICD-10) Cerebral aneurysm (08/28/16) ?I67.1 - Cerebral aneurysm, nonruptured (ICD-10) Bilateral carotid artery stenosis ?I65.23 - Occlusion and stenosis of bilateral carotid arteries (ICD-10) Adjustment disorder with depressed mood (04/09/07) ?F43.21 - Adjustment disorder with depressed mood (ICD-10) Surgical History History of sinus surgery ?Z98.890 - Other specified postprocedural states (ICD-10) History of repair of right rotator cuff (2006) ?Z98.890 - Other specified postprocedural states (ICD-10) History of intravascular stent placement (05/2017) ?Z95.828 - Presence of other vascular implants and grafts (ICD-10) History of hysterectomy (1994) ?Z90.710 - Acquired absence of both cervix and uterus (ICD-10) History of section (1975) ?Z98.891 - History of uterine scar from previous surgery (ICD-10) History of cataract extraction ?Z98.49 - Cataract extraction status, unspecified eye (ICD-10) History of carotid endarterectomy (2009) ?Z98.890 - Other specified postprocedural states (ICD-10) Family History Sister Breast cancer Diabetes Mother Stroke Heart disease Father Prostate cancer Diabetes Daughter Diabetes Family/Other Breast cancer Social History Narrative: Medical marijuana use- onset 07/24/18 Single, no kids, 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, smoker, no EtOH What is your current living situation?: I presently have a place to live Problems where you live: no known problems Problems where you live details: no known problems In the past 12 months, utilities in danger of being shut off: no In past 12 months, lack of transportation kept you from medical appts, meetings, work, or getting things needed for daily living: no In the past 12 mos, have been you worried that your food would run out before you had money to buy more?: never true In the past 12 mos, the food you bought just didn't last and you didn't have money to buy more?: never true Highest level of school completed/degree received: high school graduate Do you use any of these nicotine containing products: None Second hand tobacco smoke exposure: No How often do you have a drink containing alcohol: never AUDIT-C Alcohol total score: 0 Non-prescribed substance use: marijuana (any form) Non-prescribed substance use details: medical Caffeine: Yes How often does anyone, including family, friends and others, physically hurt you : never How often does anyone, including family, friends and others, insult or talk down to you: never How often does anyone, including family, friends and others, threaten you with harm: never How often does anyone, including family, friends and others, scream or curse at you: never Little interest or pleasure in doing things: more than half the days Feeling down, depressed, or hopeless: not at all service: No Meds Home Medications and Allergies Home Medications ?Medication ?Instructions ?Recorded ?Confirmed ?Type CBD Oil sublingual 11/17/21 01/04/24 History aspirin 81 mg chewable tablet 81 mg PO QDAY 11/17/21 01/04/24 History (Aspirin Childrens) magnesium oxide 400 mg (241.3 mg 400 mg PO QDAY 11/17/21 01/04/24 History magnesium) tablet alirocumab 75 mg/mL subcutaneous 75 mg subcut Q2W 03/09/22 01/04/24 History pen injector (Praluent Pen) hydrocortisone 2.5 % topical cream 1 applic topical QDAY PRN 03/09/22 01/04/24 History ezetimibe 10 mg tablet 10 mg PO DAILY 12/14/22 01/14/24 History Electrolytes PO PRN 01/10/23 01/04/24 History omeprazole 40 mg capsule,delayed 40 mg PO BID 01/19/23 01/04/24 History release alendronate 70 mg tablet (Fosamax) 70 mg PO QWEEK 07/28/23 01/04/24 History hydroxychloroquine 200 mg tablet 200 mg PO DAILY 07/28/23 01/14/24 History (Plaquenil) naltrexone 1.5 mg capsule 5.5 mg PO DAILY 07/28/23 01/04/24 History mycophenolate mofetil 500 mg tablet 1,000 mg PO BID 09/30/23 01/14/24 History prednisone 2.5 mg tablet 7.5 mg PO DAILY 09/30/23 01/14/24 History spironolactone 25 mg tablet 25 mg PO DAILY 09/30/23 01/14/24 History acetaminophen 650 mg 1,300 mg PO Q12H PRN 11/17/23 01/04/24 History tablet,extended release (Tylenol Arthritis Pain) ergocalciferol (vitamin D2) 1,000 2,000 unit PO QDAY 11/17/23 01/04/24 History unit capsule losartan 100 mg tablet 100 mg PO DAILY 11/17/23 01/14/24 History Medical Cannabis PO 01/04/24 History carvedilol 12.5 mg tablet 12.5 mg PO BID 01/04/24 01/04/24 History doxazosin 2 mg tablet 4 mg PO QPM 01/14/24 01/14/24 History meloxicam 15 mg tablet 15 mg PO DAILY 01/14/24 01/14/24 History Allergies Allergy/AdvReac Type Severity Reaction Status Date / Time atenolol Allergy Severe Verified 01/14/24 14:15 belimumab Allergy Severe Rash Verified 01/14/24 14:15 fentanyl Allergy Severe Cardiac Verified 01/14/24 14:15 Arrest infliximab [From Remicade] Allergy Severe Anaphylaxis Verified 01/14/24 14:15 alendronate sodium Allergy Mild stomach Verified 01/14/24 14:15 pain amitriptyline Allergy Mild Unknown Verified 01/14/24 14:15 buprenorphine Allergy Mild didn't help Verified 01/14/24 14:15 gabapentin Allergy Mild stomach Verified 01/14/24 14:15 issues amoxicillin Allergy Unknown Unknown Verified 01/14/24 14:15 diltiazem Allergy Unknown Unknown Verified 01/14/24 14:15 duloxetine Allergy Unknown Unknown Verified 01/14/24 14:15 erythromycin base Allergy Unknown Unknown Verified 01/14/24 14:15 hydralazine Allergy Unknown Unknown Verified 01/14/24 14:15 hydrochlorothiazide Allergy Unknown unknown Verified 01/14/24 14:15 hydroxychloroquine Allergy Unknown Unknown Verified 01/14/24 14:15 Fxychej-ERK-UzG Reductase Allergy Unknown Unknown Verified 01/14/24 14:15 Inhibitor tetracycline Allergy Unknown Unknown Verified 01/14/24 14:15 venlafaxine Allergy Unknown Unknown Verified 01/14/24 14:15 bupropion [From Wellbutrin] AdvReac hazy Verified 01/14/24 14:15 clopidogrel [From Plavix] AdvReac Verified 01/14/24 14:15 Exam Narrative: Exam Narrative: General: Alert and oriented, no acute distress Respiratory: Clear breath sounds bilaterally, maintained on room air see CV: Well perfused Abdomen: Soft, nontender and nondistended. Negative Maloney sign. Well-healed midline incision below the umbilicus. Const: Vital Signs, click to edit/add: Vital Signs - 24 hr 01/14/24 13:01 01/14/24 14:44 01/14/24 14:45 Temperature 97.3 F L Pulse Rate 66 71 Pulse Rate [Pulse Oximeter] 71 Respiratory Rate 20 Blood Pressure 166/69 H Blood Pressure [Le ft Arm] Blood Pressure [Ri ght Upper Arm] 104/66 Pulse Oximetry 99 99 97 Oxygen Delivery Me thod Room Air 01/14/24 15:00 01/14/24 15:02 01/14/24 15:03 Temperature Pulse Rate 66 70 71 Pulse Rate [Pulse Oximeter] Respiratory Rate Blood Pressure 188/74 H Blood Pressure [Le ft Arm] Blood Pressure [Ri ght Upper Arm] Pulse Oximetry 99 96 97 Oxygen Delivery Me thod 01/14/24 15:30 01/14/24 15:32 01/14/24 16:00 Temperature Pulse Rate 72 76 72 Pulse Rate [Pulse Oximeter] Respiratory Rate Blood Pressure 141/83 H Blood Pressure [Le ft Arm] Blood Pressure [Ri ght Upper Arm] Pulse Oximetry 100 100 98 Oxygen Delivery Me thod 01/14/24 16:02 01/14/24 16:03 01/14/24 16:50 Temperature 97.3 F L Pulse Rate 75 75 Pulse Rate [Pulse Oximeter] Respiratory Rate 18 Blood Pressure 165/82 H Blood Pressure [Le ft Arm] 196/72 H Blood Pressure [Ri ght Upper Arm] Pulse Oximetry 97 99 99 Oxygen Delivery Me thod Room Air 01/14/24 16:50 Temperature Pulse Rate Pulse Rate [Pulse Oximeter] Respiratory Rate 20 Blood Pressure Blood Pressure [Le ft Arm] Blood Pressure [Ri ght Upper Arm] Pulse Oximetry 99 Oxygen Delivery Me thod Room Air Results Labs Labs: Abnormal lab results 01/14/24 01/14/24 01/14/24 Range/Units 13:46 14:20 17:29 WBC 14.34 H (4.50-11.00) K/uL Neut % (Auto) 88.6 H (42.0-72.0) % Lymph % (Auto) 4.5 L (20-44) % Neut # (Auto) 12.70 H (1.7-7.0) K/uL Lymph # (Auto) 0.60 L (0.90-2.90) K/uL Richardson # (Auto) 1.00 H (0.00-0.90) K/UL Sodium 125 L (135-149) mmol/L Chloride 91 L (96-114) mmol/L BUN 41 H (7-30) mg/dL Glucose 136 H (60-115) mg/dL AST 36 H (12-35) U/L Troponin I 0.66 H* 0.67 H* (0.01-0.04) ng/mL C-Reactive Protein 2.0 H (0.5-1.0) mg/dL Urine Protein 2+ A (Negative) Urine Ketones 2+ A (Negative) Urine Blood Trace-intact A (Negative) Diabetes panel 01/14/24 Range/Units 13:46 Sodium 125 L (135-149) mmol/L Potassium 4.9 (3.6-5.1) mmol/L Chloride 91 L (96-114) mmol/L Carbon Dioxide 22 (20-32) mmol/L BUN 41 H (7-30) mg/dL Creatinine 1.0 (0.5-1.5) mg/dL Glucose 136 H (60-115) mg/dL Calcium 10.3 (8.4-10.6) mg/dL AST 36 H (12-35) U/L ALT 19 (4-35) U/L Alkaline Phosphatase 41 (40-150) U/L Total Protein 7.4 (6.0-8.3) g/dL Albumin 4.5 (3.3-5.0) g/dL Calcium panel 01/14/24 Range/Units 13:46 Calcium 10.3 (8.4-10.6) mg/dL Albumin 4.5 (3.3-5.0) g/dL Pituitary panel 01/14/24 Range/Units 13:46 Sodium 125 L (135-149) mmol/L Potassium 4.9 (3.6-5.1) mmol/L Chloride 91 L (96-114) mmol/L Carbon Dioxide 22 (20-32) mmol/L BUN 41 H (7-30) mg/dL Creatinine 1.0 (0.5-1.5) mg/dL Glucose 136 H (60-115) mg/dL Calcium 10.3 (8.4-10.6) mg/dL Adrenal panel 01/14/24 Range/Units 13:46 Sodium 125 L (135-149) mmol/L Potassium 4.9 (3.6-5.1) mmol/L Chloride 91 L (96-114) mmol/L Carbon Dioxide 22 (20-32) mmol/L BUN 41 H (7-30) mg/dL Creatinine 1.0 (0.5-1.5) mg/dL Glucose 136 H (60-115) mg/dL Calcium 10.3 (8.4-10.6) mg/dL Total Bilirubin 0.7 (0.1-1.5) mg/dL AST 36 H (12-35) U/L ALT 19 (4-35) U/L Alkaline Phosphatase 41 (40-150) U/L Total Protein 7.4 (6.0-8.3) g/dL Albumin 4.5 (3.3-5.0) g/dL All other labs normal. Imaging Abdomen CT scan report/results: report reviewed and image reviewed Abdominal ultrasound report/results: report reviewed and image reviewed Progress Note:A&P Assessment and plan (1) Abdominal pain: Status: Acute Assessment and Plan: Patient is a 68-year-old female with a 3 week history of abdominal pain, nausea and vomiting. Workup was obtained in the emergency department and significant for a leukocytosis (14). Hepatic panel within normal limits. Vital signs stable in benign exam, negative Maloney sign. Patient could have some component of gallbladder dysfunction secondary to gastroenteritis. There is a mild leukocytosis, but no inflammatory changes around the gallbladder on CT imaging and the abdominal ultrasound is very benign in appearance, with no evidence of stones or sludge. Low concern for cholecystitis as the etiology of her symptoms and no surgical recommendations at this time. Surgery to sign off. Please call with any acute clinical changes, questions or concerns.
[2024-01-14] MEDS: ASPIRIN 81 MG TAB.CHEW PO (19:25)
--- NOTE | 2024-01-14 19:39 | P.IMHP_ITS ---
Hospitalist- H&P: HPI History of Present Illness Date Seen: 01/14/24 Chief complaint: Abdominal pain, weakness Narrative: Nicolle Covington is a 68 year old woman with a complicated past medical history who presents to our emergency department today for additional assessment of diarrhea which he has had off and on for the past 3 weeks, and now more recently over the course of the last 4-6 days she has had nausea, retching, intermittent vomiting, with decreased oral intake including ability to take her medications. Over the last 2 days has had increasing abdominal pain particularly in the right upper quadrant, but often diffuse as well. Has decreased urine output. Denies blood loss of any sort. Denies chest, neck, shoulder, back pressure, heaviness, tightness, or pain. Denies syncope or near-syncope. Acknowledges increasing sense of weakness. Denies fevers, rigors, diaphoresis. No recent infectious illness that she is aware of. No recent travel. No recent trauma. No recent injury. Believes the diarrhea may have started to improve slightly today. Acknowledges taking [place] Imodium. Slight increase level of myalgias and arthralgias. Denies cough or dyspnea. Denies dysuria, urgency, frequency, hematuria. No new rashes or skin lesions. No focal motor neurologic deficits. 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) Systemic lupus erythematosus (SLE) in adult ?M32.9 - Systemic lupus erythematosus, unspecified (ICD-10) History of pacemaker ?Z95.0 - Presence of cardiac pacemaker (ICD-10) COVID-19 ?U07.1 - COVID-19 (ICD-10) Health care directive on file ?Z78.9 - Other specified health status (ICD-10) COPD (chronic obstructive pulmonary disease) ?J44.9 - Chronic obstructive pulmonary disease, unspecified (ICD-10) Post herpetic neuralgia ?B02.29 - Other postherpetic nervous system involvement (ICD-10) Mixed hyperlipidemia ?E78.2 - Mixed hyperlipidemia (ICD-10) Primary hypertension ?I10 - Essential (primary) hypertension (ICD-10) Chronic sinus infection ?J32.9 - Chronic sinusitis, unspecified (ICD-10) DJD (degenerative joint disease), lumbosacral ?M47.817 - Spondylosis without myelopathy or radiculopathy, lumbosacral region (ICD-10) Sjogren's syndrome (2012) ?M35.00 - Sjogren syndrome, unspecified (ICD-10) Positive antinuclear antibody (07/21/11) ?R76.8 - Other specified abnormal immunological findings in serum (ICD-10) Peripheral vascular disease ?I73.9 - Peripheral vascular disease, unspecified (ICD-10) Osteoporosis ?M81.0 - Age-related osteoporosis without current pathological fracture (ICD- 10) Obstructive sleep apnea syndrome (03/23/18) ?G47.33 - Obstructive sleep apnea (adult) (pediatric) (ICD-10) Hypothyroidism (06/30/17) ?E03.9 - Hypothyroidism, unspecified (ICD-10) History of lichen planus ?Z87.2 - Personal history of diseases of the skin and subcutaneous tissue (ICD-10) History of colonic polyps ?Z86.010 - Personal history of colonic polyps (ICD-10) History of basal cell carcinoma (BCC) ?Z85.828 - Personal history of other malignant neoplasm of skin (ICD-10) Generalized anxiety disorder (06/20/14) ?F41.1 - Generalized anxiety disorder (ICD-10) Fibromyalgia (2012) ?M79.7 - Fibromyalgia (ICD-10) Deafness in left ear (11/20/15) ?H91.92 - Unspecified hearing loss, left ear (ICD-10) Cerebral aneurysm (08/28/16) ?I67.1 - Cerebral aneurysm, nonruptured (ICD-10) Bilateral carotid artery stenosis ?I65.23 - Occlusion and stenosis of bilateral carotid arteries (ICD-10) Adjustment disorder with depressed mood (04/09/07) ?F43.21 - Adjustment disorder with depressed mood (ICD-10) Surgical History History of sinus surgery ?Z98.890 - Other specified postprocedural states (ICD-10) History of repair of right rotator cuff (2006) ?Z98.890 - Other specified postprocedural states (ICD-10) History of intravascular stent placement (05/2017) ?Z95.828 - Presence of other vascular implants and grafts (ICD-10) History of hysterectomy (1994) ?Z90.710 - Acquired absence of both cervix and uterus (ICD-10) History of section (1975) ?Z98.891 - History of uterine scar from previous surgery (ICD-10) History of cataract extraction ?Z98.49 - Cataract extraction status, unspecified eye (ICD-10) History of carotid endarterectomy (2009) ?Z98.890 - Other specified postprocedural states (ICD-10) Family History Sister Breast cancer Diabetes Mother Stroke Heart disease Father Prostate cancer Diabetes Daughter Diabetes Family/Other Breast cancer Social History Narrative: Medical marijuana use- onset 07/24/18 Single, no kids, 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, smoker, no EtOH What is your current living situation?: I presently have a place to live Problems where you live: no known problems Problems where you live details: no known problems In the past 12 months, utilities in danger of being shut off: no In past 12 months, lack of transportation kept you from medical appts, meetings, work, or getting things needed for daily living: no In the past 12 mos, have been you worried that your food would run out before you had money to buy more?: never true In the past 12 mos, the food you bought just didn't last and you didn't have money to buy more?: never true Highest level of school completed/degree received: high school graduate Do you use any of these nicotine containing products: None Second hand tobacco smoke exposure: No How often do you have a drink containing alcohol: never AUDIT-C Alcohol total score: 0 Non-prescribed substance use: marijuana (any form) Non-prescribed substance use details: medical Caffeine: Yes How often does anyone, including family, friends and others, physically hurt you : never How often does anyone, including family, friends and others, insult or talk down to you: never How often does anyone, including family, friends and others, threaten you with harm: never How often does anyone, including family, friends and others, scream or curse at you: never Little interest or pleasure in doing things: more than half the days Feeling down, depressed, or hopeless: not at all service: No Meds Home Medications and Allergies Home Medications ?Medication ?Instructions ?Recorded ?Confirmed ?Type CBD Oil sublingual 11/17/21 01/04/24 History aspirin 81 mg chewable tablet 81 mg PO QDAY 11/17/21 01/04/24 History (Aspirin Childrens) magnesium oxide 400 mg (241.3 mg 400 mg PO QDAY 11/17/21 01/04/24 History magnesium) tablet alirocumab 75 mg/mL subcutaneous 75 mg subcut Q2W 03/09/22 01/04/24 History pen injector (Praluent Pen) hydrocortisone 2.5 % topical cream 1 applic topical QDAY PRN 03/09/22 01/04/24 History ezetimibe 10 mg tablet 10 mg PO DAILY 12/14/22 01/14/24 History Electrolytes PO PRN 01/10/23 01/04/24 History omeprazole 40 mg capsule,delayed 40 mg PO BID 01/19/23 01/04/24 History release alendronate 70 mg tablet (Fosamax) 70 mg PO QWEEK 07/28/23 01/04/24 History hydroxychloroquine 200 mg tablet 200 mg PO DAILY 07/28/23 01/14/24 History (Plaquenil) naltrexone 1.5 mg capsule 5.5 mg PO DAILY 07/28/23 01/04/24 History mycophenolate mofetil 500 mg tablet 1,000 mg PO BID 09/30/23 01/14/24 History prednisone 2.5 mg tablet 7.5 mg PO DAILY 09/30/23 01/14/24 History spironolactone 25 mg tablet 25 mg PO DAILY 09/30/23 01/14/24 History acetaminophen 650 mg 1,300 mg PO Q12H PRN 11/17/23 01/04/24 History tablet,extended release (Tylenol Arthritis Pain) ergocalciferol (vitamin D2) 1,000 2,000 unit PO QDAY 11/17/23 01/04/24 History unit capsule losartan 100 mg tablet 100 mg PO DAILY 11/17/23 01/14/24 History Medical Cannabis PO 01/04/24 History carvedilol 12.5 mg tablet 12.5 mg PO BID 01/04/24 01/04/24 History doxazosin 2 mg tablet 4 mg PO QPM 01/14/24 01/14/24 History meloxicam 15 mg tablet 15 mg PO DAILY 01/14/24 01/14/24 History Home Medication Comments: Has not been able to take her usual medications and keep them down for the last couple of days. Allergies Allergy/AdvReac Type Severity Reaction Status Date / Time atenolol Allergy Severe Verified 01/14/24 14:15 belimumab Allergy Severe Rash Verified 01/14/24 14:15 fentanyl Allergy Severe Cardiac Verified 01/14/24 14:15 Arrest infliximab [From Remicade] Allergy Severe Anaphylaxis Verified 01/14/24 14:15 alendronate sodium Allergy Mild stomach Verified 01/14/24 14:15 pain amitriptyline Allergy Mild Unknown Verified 01/14/24 14:15 buprenorphine Allergy Mild didn't help Verified 01/14/24 14:15 gabapentin Allergy Mild stomach Verified 01/14/24 14:15 issues amoxicillin Allergy Unknown Unknown Verified 01/14/24 14:15 diltiazem Allergy Unknown Unknown Verified 01/14/24 14:15 duloxetine Allergy Unknown Unknown Verified 01/14/24 14:15 erythromycin base Allergy Unknown Unknown Verified 01/14/24 14:15 hydralazine Allergy Unknown Unknown Verified 01/14/24 14:15 hydrochlorothiazide Allergy Unknown unknown Verified 01/14/24 14:15 hydroxychloroquine Allergy Unknown Unknown Verified 01/14/24 14:15 Gdtnuel-ESH-OoW Reductase Allergy Unknown Unknown Verified 01/14/24 14:15 Inhibitor tetracycline Allergy Unknown Unknown Verified 01/14/24 14:15 venlafaxine Allergy Unknown Unknown Verified 01/14/24 14:15 bupropion [From Wellbutrin] AdvReac hazy Verified 01/14/24 14:15 clopidogrel [From Plavix] AdvReac Verified 01/14/24 14:15 Exam Narrative: Exam Narrative: I examined the patient in her hospital room. By the time I see her she appears comfortable and in no acute distress. Vision and hearing are adequate. Alert and oriented x4. Friendly, articulate, cooperative. Tympanic membranes and external auditory canals normal. Midline nasal septum. Normal nasal mucosa. Dry buccal mucosa. Dentition in fair repair. No icterus or conjunctival injection. Pupils are equally round and reactive to light and accommodation. Conjugate gaze. Neck is supple. Midline trachea. No JVD or hepatojugular reflux. No carotid bruits. No head neck lymphadenopathy. Lungs are clear auscultation without wheezing, rhonchi, or rales. Chest wall excursions are full. No CVA tenderness to thumping. Heart tones with regular rhythm, normal S1-S2, without obvious murmur, gallop, or rub. PMI not laterally displaced. Abdomen with active bowel sounds, soft. Minimal discomfort to palpation right upper quadrant otherwise abdomen is nontender without rebound or guarding. Extremities without edema. Palpable pulses upper and lower extremities. No focal motor neurologic deficits. Independent in transfer, station, and gait. No tremor, asterixis, or ataxia. Const: Vital Signs, click to edit/add: Vital Signs - 24 hr 01/14/24 13:01 01/14/24 14:44 01/14/24 14:45 Temperature 97.3 F L Pulse Rate 66 71 Pulse Rate [Pulse Oximeter] 71 Respiratory Rate 20 Blood Pressure 166/69 H Blood Pressure [Le ft Arm] Blood Pressure [Ri ght Upper Arm] 104/66 Pulse Oximetry 99 99 97 Oxygen Delivery Me thod Room Air 01/14/24 15:00 01/14/24 15:02 01/14/24 15:03 Temperature Pulse Rate 66 70 71 Pulse Rate [Pulse Oximeter] Respiratory Rate Blood Pressure 188/74 H Blood Pressure [Le ft Arm] Blood Pressure [Ri ght Upper Arm] Pulse Oximetry 99 96 97 Oxygen Delivery Me thod 01/14/24 15:30 01/14/24 15:32 01/14/24 16:00 Temperature Pulse Rate 72 76 72 Pulse Rate [Pulse Oximeter] Respiratory Rate Blood Pressure 141/83 H Blood Pressure [Le ft Arm] Blood Pressure [Ri ght Upper Arm] Pulse Oximetry 100 100 98 Oxygen Delivery Me thod 01/14/24 16:02 01/14/24 16:03 01/14/24 16:50 Temperature 97.3 F L Pulse Rate 75 75 Pulse Rate [Pulse Oximeter] Respiratory Rate 18 Blood Pressure 165/82 H Blood Pressure [Le ft Arm] 196/72 H Blood Pressure [Ri ght Upper Arm] Pulse Oximetry 97 99 99 Oxygen Delivery Me thod Room Air 01/14/24 16:50 Temperature Pulse Rate Pulse Rate [Pulse Oximeter] Respiratory Rate 20 Blood Pressure Blood Pressure [Le ft Arm] Blood Pressure [Ri ght Upper Arm] Pulse Oximetry 99 Oxygen Delivery Me thod Room Air Hospitalist - H&P: Result Labs Labs: Short CBC 01/14/24 Range/Units 13:46 WBC 14.34 H (4.50-11.00) K/uL Hgb 13.5 (12.0-16.0) gm/dL Hct 39.7 (33.0-51.0) % Plt Count 290 (140-440) K/uL BMP 01/14/24 13:46 Sodium 125 L Potassium 4.9 Chloride 91 L Carbon Dioxide 22 BUN 41 H Creatinine 1.0 Glucose 136 H Calcium 10.3 Cardiac Enzymes 01/14/24 01/14/24 Range/Units 13:46 17:29 Troponin I 0.66 H* 0.67 H* (0.01-0.04) ng/mL Liver Function 01/14/24 Range/Units 13:46 Total Bilirubin 0.7 (0.1-1.5) mg/dL AST 36 H (12-35) U/L ALT 19 (4-35) U/L Alkaline Phosphatase 41 (40-150) U/L Albumin 4.5 (3.3-5.0) g/dL Urine 01/14/24 Range/Units 14:20 Urine Color Yellow (Yellow) Urine Appearance Clear (Clear) Urine pH 6.0 (5.0-8.5) Ur Specific [place] 1.025 (1.000-1.030) Urine Protein 2+ A (Negative) Urine Glucose (UA) Negative (Negative) ECG ECG interpretation date: 01/14/24 Interpretation: Initial electrocardiogram in the ED and subsequent electrocardiogram on the hospital floor demonstrate normal sinus rhythm without ischemic or infarct pa ttern. Imaging CT scan - abdomen and pelvis: Attestation: I have reviewed the pertinent imaging results. Radiologist's impression: Radiologist interprets as follows: No acute or specific finding to explain abdominal pain, nausea or vomiting. No sign of GI tract obstruction or inflammation. In my own assessment it appears as though patient has multiple dilated loops of small bowel with air-fluid levels. Does not appear to have an obstruction. US - abdomen: Radiologist's impression: Hydropic appearing gallbladder without stones or wall thickening. Assessment and Plan Assessment and plan (1) Adrenal crisis syndrome: Problem comment: - my own hypothesis is this is most likely the only cause of her presentation with nausea, vomiting, abdominal pain - treat for adrenal crisis with hydrocortisone 100 mg IV q.8 hours x4 doses, and then stop. Continue with prednisone 7.5 mg p.o. daily. Status: Acute (2) Abdominal pain: Problem comment: - I hypothesize that this is most likely related to the adrenal crisis. Additionally, however, she was having right upper quadrant abdominal pain and now ultrasound suggests the possibility of hydropic gallbladder, raising the possibility of acalculous cholecystitis. - treat the adrenal crisis. - IV fluids and NPO status for now. Analgesics and antiemetics as needed. - empirically initiate antibiotic therapy with imipenem and cilastatin IV given her stated allergy to amoxicillin. - I did ask our general surgeon, Dr. Campbell, to see the patient in consultation and render her opinion and recommendations. - if abdominal pain improved substantially over a relatively short period of time after we initiate treatment for the adrenal crisis, consider stopping the empiric IV antibiotic therapy for possible acalculous cholecystitis and monitoring. Status: Acute (3) Nausea vomiting and diarrhea: Problem comment: - may well have initiated with an acute gastroenteritis. Over time because of patient inability to take her usual medications I believe she had developed acute adrenal crisis. - treat the adrenal crisis. - IV normal saline. - antiemetics as needed. - stool for C diff, and treat if warranted Status: Acute (4) Systemic lupus erythematosus (SLE) in adult: Problem comment: - continue with all supportive medications including CellCept a 1000 mg twice daily, hydroxychloroquine 200 mg once daily. Stress doses of hydrocortisone 100 mg IV q.8 hours x4 doses and continue with prednisone 5 mg once daily. Status: Acute (5) On prednisone therapy: Problem comment: - to treat systemic lupus erythematosus Status: Acute (6) Primary hypertension: Problem comment: - continue with all interventions - history of hypertensive urgency as recently as 3 months ago Status: Acute (7) COPD (chronic obstructive pulmonary disease): Status: Acute (8) Peripheral vascular disease: Status: Acute (9) Dehydration: Problem comment: - IV hydration and monitor plus treat adrenal crisis Status: Acute (10) Nonischemic nontraumatic myocardial injury: Problem comment: - initial troponin I 0.66. Subsequent troponin I 0.67. Normal electrocardiogra m. No angina or anginal equivalent symptoms. Likely myocardial ischemia due to acute adrenal crisis. - monitor on telemetry, serial echocardiogram, serial troponin I. I did not order an echo at this time but would consider doing so depending on patient's symptoms, biochemical profile, telemetry, electrocardiogram findings. Status: Acute Plan 1. Reviewed impression with patient. 2. Reviewed recommendations with patient, including continue with her usual medications. 3. Answered patient's questions are satisfaction. 4. Patient agreeable with above stated plans and recommendations. Total Time Spent Total Time Spent: 70 minutes
[2024-01-14] MEDS: HYDROCORTISONE SOD SUCCINATE 50 MG/ML inj 100 MG IVP (19:53)
[2024-01-14] MEDS: SODIUM CHLORIDE 0.9 % (FLUSH) 10 ML SYRINGE 5 ML IVF ×2 (19:54→22:21)
[2024-01-14] MEDS: MORPHINE 4 MG/ML INJ 5 MG IVP (20:58)
[2024-01-14] MEDS: carvediloL 6.25 MG TABLET 12.5 MG PO (21:18)
[2024-01-14] MEDS: mycophenolate mofetiL 250 MG CAPSULE 1000 MG PO (21:18)
[2024-01-14 21:44] LABS: Troponin I* 0.63 ng/mL (0.01-0.04)
[2024-01-14] MEDS: CYCLOBENZAPRINE HCL 10 MG TABLET PO (22:21)
[2024-01-15] VITALS (26 sets, daily range): BP systolic 92–173; BP diastolic 52–72; PULSE 73–100; RESP 14–18; TEMP 36.1–37.2; O2SAT 92–98
[2024-01-15] MEDS: HYDROCORTISONE SOD SUCCINATE 50 MG/ML inj 100 MG IVP ×3 (03:32→19:50)
[2024-01-15] MEDS: SODIUM CHLORIDE 0.9 % (FLUSH) 10 ML SYRINGE 5 ML IVF ×2 (03:33→10:12)
[2024-01-15] MEDS: ACETAMINOPHEN 325 MG TABLET 650 MG PO (04:51)
--- NOTE | 2024-01-15 05:37 | PC.NURSE ---
[id number] Pt with abd pain and shoulder pain 01/02, was finally able to fall asleep at approx 2330 and slept during the night. PRN and scheduled medications administered to help with pain symptoms. Pt not tolerating activity well, states she feels wobbly and weak with standing and ambulation. denies nausea but does belch quit a bitt of air.
[2024-01-15] MEDS: 0.9 % SODIUM CHLORIDE 1000 ml 1,000 ML 125 ML IV ×3 (06:52→13:17)
[2024-01-15 07:07] LABS: Basophils Absolute Auto 0.01 K/uL (0.00-0.30); Basophils Percent Auto 0.2 % (0.0-3.0); Hematocrit 34.6 % (33.0-51.0); Hemoglobin* 11.6 gm/dL (12.0-16.0); Immature Granulocytes Abs Auto 0.01 K/uL (0.00-0.30); Immature Granulocytes Pct Auto 0.2 %; Lymphocytes Percent Auto 4.8 % (20-44); Mean Corpuscular HGB Conc 34 gm/dL (32-36); Mean Corpuscular Hemoglobin 30 pg (26-34); Mean Corpuscular Volume 91 fL (80-100); Monocytes Percent Auto 8.4 % (0.0-11.0); Neutrophils Percent Auto 86.4 % (42.0-72.0); Platelet Count* 219 K/uL (140-440); RDW Coefficient of Variation % 12.9 % (11.5-15.5); Red Blood Count 3.82 m/uL (4.00-5.20); White Blood Count* 6.45 K/uL (4.50-11.00)
[2024-01-15 07:11] LABS: Lactate* 1.3 mmol/L (0.5-1.9)
[2024-01-15 07:17] LABS: Slide Review Reflex No
[2024-01-15 07:29] LABS: Albumin* 3.1 g/dL (3.3-5.0); Chloride* 102 mmol/L (96-114)
[2024-01-15 07:30] LABS: Potassium* 4.4 mmol/L (3.6-5.1); Sodium* 129 mmol/L (135-149)
[2024-01-15 07:32] LABS: Alkaline Phosphatase* 27 U/L (40-150); Anion Gap 9 mEq/L (7-15); Aspartate Amino Transferase* 27 U/L (12-35); Bilirubin Total* 0.4 mg/dL (0.1-1.5); Carbon Dioxide* 18 mmol/L (20-32); Creatinine* 1.2 mg/dL (0.5-1.5); Est. Creatinine Clearance* 39.81; Estimated Glomerular Filt Rate 49 ml/min; Total Protein* 5.5 g/dL (6.0-8.3)
[2024-01-15 07:33] LABS: Alanine Aminotransferase* 10 U/L (4-35); Blood Urea Nitrogen* 37 mg/dL (7-30); Glucose* 98 mg/dL (60-115); Lipase* 726 U/L (23-300); Magnesium* 1.5 mg/dL (1.5-2.6); Phosphorus* 2.8 mg/dL (2.5-4.5)
[2024-01-15 07:35] LABS: C Reactive Protein* 7.2 mg/dL (0.5-1.0)
[2024-01-15 07:46] LABS: Troponin I* 0.38 ng/mL (0.01-0.04)
[2024-01-15] MEDS: MORPHINE 4 MG/ML INJ 5 MG IVP (08:37)
--- NOTE | 2024-01-15 08:55 | CRLHL7_ITS ---
For Patients: As a result of the Century Cures Act, medical imaging exams and procedure reports are released immediately into your electronic medical record. You may view this report before your referring provider. If you have questions, please contact your health care provider. INDICATION: Chest pain. Elevated lipase. Abdominal pain. Bilateral shoulder pain. TECHNIQUE: CT chest pulmonary angiogram acquired with 95 mL of Isovue 370 IV contrast. COMPARISON: CT abdomen and pelvis with contrast same day and 01/14/2024. FINDINGS: Cardiovascular structures: CT pulmonary angiogram demonstrates adequate opacification of the pulmonary arteries. No evidence of pulmonary embolus. Main pulmonary artery is dilated to 3.1 cm. Aortic atherosclerosis. Thoracic aorta is normal in caliber. Coronary artery calcifications. Indwelling intracardiac device/pacemaker. Heart size appears within normal limits. Mediastinum and linda: No pathologic lymphadenopathy. Lungs: No pneumothorax. Central airways are patent. Motion artifact with bibasilar atelectasis. Lungs are otherwise clear. Pleura and pericardium: No effusions. Chest wall and axilla: Unremarkable. Bones: Degenerative changes. No acute or suspicious osseous abnormality. Upper abdomen: New extensive free intraperitoneal gas consistent with underlying gastrointestinal tract perforation. IMPRESSION: 1. No evidence of pulmonary embolus. 2. Bibasilar atelectasis. 3. New free intraperitoneal gas consistent with underlying gastrointestinal tract perforation. Please refer to CT abdomen and pelvis same day for additional discussion of findings regarding the abdomen/pelvis. Discussed with Dr. Chen by telephone at 10:15 a.m. on 01/15/2024. Dictated by Gerard Singer MD @ 01/15/2024 10:15:25 AM Please note that all CT scans at this facility use dose modulation, iterative reconstruction, and/or weight-based dosing when appropriate to reduce radiation dose to as low as reasonably achievable. Dictated by: Gerard Singer MD @ 01/15/2024 10:17:17 (Electronically Signed)
--- NOTE | 2024-01-15 08:55 | CRLHL7_ITS ---
For Patients: As a result of the Century Cures Act, medical imaging exams and procedure reports are released immediately into your electronic medical record. You may view this report before your referring provider. If you have questions, please contact your health care provider. INDICATION: Chest pain. Elevated lipase. Abdominal pain. Bilateral shoulder pain. TECHNIQUE: CT abdomen and pelvis acquired with 95 mL of Isovue 370 IV contrast. COMPARISON: CT abdomen and pelvis 01/14/2024. FINDINGS: Lower chest: Bibasilar atelectasis. No pleural or pericardial effusions. Liver: Unremarkable. Spleen: Unremarkable. Pancreas: Unremarkable. Gallbladder and bile ducts: No calcified stones or biliary ductal dilatation. Kidneys: Unremarkable. Adrenal glands: Unremarkable. GI tract: There is new free intraperitoneal gas consistent with underlying gastrointestinal tract perforation. Irregular focus of gas is present about the distal stomach and proximal duodenum suggesting possible site of perforation, there is also a possible defect in the posterior wall of the stomach on axial image 58 of series 2. Small volume ascites, in keeping with gastrointestinal tract perforation as well. Mildly dilated small bowel loops along with thickened and enhancing small bowel loops is likely reactive. Lymph nodes: No pathologic lymphadenopathy. Vascular structures: Atherosclerotic disease. No abdominal aortic aneurysm. Pelvic Organs: Bladder as imaged is unremarkable. Bones: No acute or suspicious osseous abnormality. Degenerative changes of the spine and pelvis, with grade 1 anterolisthesis of L5 on S1, as before. IMPRESSION: Gastrointestinal tract perforation with suspected site of perforation in the distal stomach or proximal duodenum and associated free fluid. Discussed with Dr. Chen by telephone at 10:15 a.m. on 01/15/2024. Dictated by Gerard Singer MD @ 01/15/2024 10:23:56 AM Please note that all CT scans at this facility use dose modulation, iterative reconstruction, and/or weight-based dosing when appropriate to reduce radiation dose to as low as reasonably achievable. Dictated by: Gerard Singer MD @ 01/15/2024 10:24:13 (Electronically Signed)
[2024-01-15] MEDS: HYDROmorphone 0.5 mg/0.5 ml inj 0.2 MG IVP ×2 (09:05→10:10)
[2024-01-15] MEDS: predniSONE 5 MG TABLET 7.5 MG PO (10:11)
[2024-01-15] MEDS: mycophenolate mofetiL 250 MG CAPSULE 1000 MG PO (10:12)
[2024-01-15] MEDS: SPIRONOLACTONE 25 MG TABLET PO (10:12)
--- NOTE | 2024-01-15 10:55 | PM.IMPN1 ---
Progress Note: A&P Assessment and plan (1) Gastrointestinal perforation: Problem details: - noted on 01/15/24 - to OR with Dr. Hoover of General Surgery Status: Acute (2) Abdominal pain: Problem details: - with associated N/V/D prior to admission - imaging 01/13 nondiagnostic - worsening symptoms with more distention and not passing flatus on 01/14: repeat CT is + for GI tract perforation - on Imipenem/Cilastatin Status: Acute (3) Nonischemic nontraumatic myocardial injury: Problem details: - initial troponin 0.66 -->0.67 -->0.63 -->0.38 - no acute change on EKG, no angina or anginal equivalent symptoms. Likely myocardial ischemia due to acute illness/GI perforation Status: Acute (4) Adrenal crisis syndrome: Problem details: - clinical concern on presentation given GI symptoms, treating with hydrocortisone 100 mg IV Q8H x4 doses - continue Prednisone 7.5 mg po daily Status: Acute (5) Systemic lupus erythematosus (SLE) in adult: Problem details: - continue home medications including CellCept 1000mg BID, hydroxychloroquine 200mg Qd - stress doses of hydrocortisone 100 mg IV q.8 hours x4 doses and continue with prednisone 5 mg once daily. Status: Acute (6) On prednisone therapy: Problem details: - daily, for SLE Status: Acute (7) Primary hypertension: Problem details: - continue with all interventions - history of hypertensive urgency as recently as 3 months ago Status: Acute (8) COPD (chronic obstructive pulmonary disease): Problem details: - stable, doesn't use supplemental O2 Status: Acute (9) Peripheral vascular disease: Status: Acute Plan - to OR with Dr. Hoover of General Surgery today - dasanthosh Child updated by phone, questions answered Subjective Date Seen: 01/15/24 Interval history: Richa was admitted to the hospital yesterday for nausea, vomiting, and diarrhea. Imaging in the emergency department was negative for any acute findings, labs reassuring. Started on Imipenem and Cilastatin + stress dose steroids for concern of acute adrenal crisis contributing to symptoms. This morning, she has worsening abdominal pain and is not passing flatus. Repeat imaging reveals a perforation in the GI tract (stomach vs duodenum) with + free air. Exam Narrative: Exam Narrative: GEN: Alert and oriented, uncomfortable but nontoxic HEENT: EOMIs bilaterally, no scleral icterus CV: RRR, No concerning murmurs, rubs, or gallops R: No wheezing, air movement adequate Ab: Distended, + tenderness throughout abdomen Ext: wwp, no concerning edema Neuro: Non focal deficits, no resting tremor Psych: Appropriate Const: Vital Signs, click to edit/add: Vital Signs - 24 hr 01/14/24 13:01 01/14/24 14:44 01/14/24 14:45 Temperature 97.3 F L Pulse Rate 66 71 Pulse Rate [Pulse Oximeter] 71 Pulse Rate [Right Pulse Oximeter] Pulse Rate [orthos tatic sitting Righ t Pulse Oximeter] Pulse Rate [orthos tatic standing Rig ht Pulse Oximeter] Respiratory Rate 20 Blood Pressure 166/69 H Blood Pressure [Le ft Arm] Blood Pressure [Ri ght Upper Arm] 104/66 Blood Pressure [or thostatic lying Le ft Arm] Blood Pressure [or thostatic sitting] Blood Pressure [or thostatic standing Left Arm] Pulse Oximetry 99 99 97 Oxygen Delivery Mo thod Room Air 01/14/24 15:00 01/14/24 15:02 01/14/24 15:03 Temperature Pulse Rate 66 70 71 Pulse Rate [Pulse Oximeter] Pulse Rate [Right Pulse Oximeter] Pulse Rate [orthos tatic sitting Righ t Pulse Oximeter] Pulse Rate [orthos tatic standing Rig ht Pulse Oximeter] Respiratory Rate Blood Pressure 188/74 H Blood Pressure [Le ft Arm] Blood Pressure [Ri ght Upper Arm] Blood Pressure [or thostatic lying Le ft Arm] Blood Pressure [or thostatic sitting] Blood Pressure [or thostatic standing Left Arm] Pulse Oximetry 99 96 97 Oxygen Delivery Mo thod 01/14/24 15:30 01/14/24 15:32 01/14/24 16:00 Temperature Pulse Rate 72 76 72 Pulse Rate [Pulse Oximeter] Pulse Rate [Right Pulse Oximeter] Pulse Rate [orthos tatic sitting Righ t Pulse Oximeter] Pulse Rate [orthos tatic standing Rig ht Pulse Oximeter] Respiratory Rate Blood Pressure 141/83 H Blood Pressure [Le ft Arm] Blood Pressure [Ri ght Upper Arm] Blood Pressure [or thostatic lying Le ft Arm] Blood Pressure [or thostatic sitting] Blood Pressure [or thostatic standing Left Arm] Pulse Oximetry 100 100 98 Oxygen Delivery Me thod 01/14/24 16:02 01/14/24 16:03 01/14/24 16:50 Temperature 97.3 F L Pulse Rate 75 75 Pulse Rate [Pulse Oximeter] Pulse Rate [Right Pulse Oximeter] Pulse Rate [orthos tatic sitting Righ t Pulse Oximeter] Pulse Rate [orthos tatic standing Rig ht Pulse Oximeter] Respiratory Rate 18 Blood Pressure 165/82 H Blood Pressure [Le ft Arm] 196/72 H Blood Pressure [Ri ght Upper Arm] Blood Pressure [or thostatic lying Le ft Arm] Blood Pressure [or thostatic sitting] Blood Pressure [or thostatic standing Left Arm] Pulse Oximetry 97 99 99 Oxygen Delivery Mo thod Room Air 01/14/24 16:50 01/14/24 19:00 01/14/24 19:03 Temperature 98.1 F Pulse Rate Pulse Rate [Pulse Oximeter] 74 Pulse Rate [Right Pulse Oximeter] 74 Pulse Rate [orthos tatic sitting Righ t Pulse Oximeter] 76 Pulse Rate [orthos tatic standing Rig ht Pulse Oximeter] 98 Respiratory Rate 20 20 Blood Pressure Blood Pressure [Le ft Arm] 138/80 Blood Pressure [Ri ght Upper Arm] Blood Pressure [or thostatic lying Le ft Arm] 138/80 Blood Pressure [or thostatic sitting] 145/72 H Blood Pressure [or thostatic standing Left Arm] 88/64 L Pulse Oximetry 99 97 [facility] Room [facility] 01/14/24 21:55 01/14/24 22:53 01/14/24 23:00 Temperature Pulse Rate Pulse Rate [Pulse Oximeter] 73 66 Pulse Rate [Right Pulse Oximeter] Pulse Rate [orthos tatic sitting Righ t Pulse Oximeter] Pulse Rate [orthos tatic standing Rig ht Pulse Oximeter] Respiratory Rate 18 18 18 Blood Pressure Blood Pressure [Le ft Arm] 98/70 114/44 L Blood Pressure [Ri ght Upper Arm] Blood Pressure [or thostatic lying Le ft Arm] Blood Pressure [or thostatic sitting] Blood Pressure [or thostatic standing Left Arm] Pulse Oximetry 92 92 95 Oxygen Delivery Mo thod Room Air Room Air Room Air 01/14/24 23:00 01/15/24 03:00 01/15/24 08:23 Temperature Pulse Rate 64 Pulse Rate [Pulse Oximeter] 75 75 Pulse Rate [Right Pulse Oximeter] Pulse Rate [orthos tatic sitting Righ t Pulse Oximeter] Pulse Rate [orthos tatic standing Rig ht Pulse Oximeter] Respiratory Rate 18 14 Blood Pressure Blood Pressure [Le ft Arm] 101/52 L 127/58 L Blood Pressure [Ri ght Upper Arm] Blood Pressure [or thostatic lying Le ft Arm] Blood Pressure [or thostatic sitting] Blood Pressure [or thostatic standing Left Arm] Pulse Oximetry 94 94 Oxygen Delivery Me thod Room Air 01/15/24 08:29 01/15/24 09:00 Temperature Pulse Rate Pulse Rate [Pulse Oximeter] Pulse Rate [Right Pulse Oximeter] 78 Pulse Rate [orthos tatic sitting Righ t Pulse Oximeter] 81 Pulse Rate [orthos tatic standing Rig ht Pulse Oximeter] 100 Respiratory Rate 14 Blood Pressure Blood Pressure [Le ft Arm] Blood Pressure [Ri ght Upper Arm] Blood Pressure [or thostatic lying Le ft Arm] 123/56 L Blood Pressure [or thostatic sitting] 127/58 L Blood Pressure [or thostatic standing Left Arm] 92/55 L Pulse Oximetry 96 Oxygen Delivery Me thod Room Air Labs Labs: Laboratory Results - last 24 hr 01/14/24 01/14/24 01/14/24 13:46 14:20 15:57 WBC 14.34 H RBC 4.54 Hgb 13.5 Hct 39.7 MCV 87 MCH 30 MCHC 34 RDW Coeff of Terrell 12.6 Plt Count 290 Neut % (Auto) 88.6 H Lymph % (Auto) 4.5 L Newberry % (Auto) 6.7 Eos % (Auto) 0.0 Baso % (Auto) 0.1 Neut # (Auto) 12.70 H Lymph # (Auto) 0.60 L Newberry # (Auto) 1.00 H Eos # (Auto) 0.00 Baso # (Auto) 0.00 Abs Immat Gran (auto) 0.00 Imm/Tot Granulo (auto) 0.1 Sodium 125 L Potassium 4.9 Chloride 91 L Carbon Dioxide 22 Anion Gap 12 BUN 41 H Creatinine 1.0 Estimated Creat Clear 47.14 Estimated GFR 61 Glucose 136 H Lactate 1.7 Calcium 10.3 Phosphorus Magnesium Total Bilirubin 0.7 AST 36 H ALT 19 Alkaline Phosphatase 41 Troponin I 0.66 H* C-Reactive Protein 2.0 H Total Protein 7.4 Albumin 4.5 Lipase 114 Urine Color Yellow Urine Appearance Clear Urine pH 6.0 Ur Specific Rodney 1.025 Urine Protein 2+ A Urine Glucose (UA) Negative Urine Ketones 2+ A Urine Blood Trace-intact A Urine Nitrite Negative Urine Bilirubin Negative Urine Urobilinogen 0.2 Ur Leukocyte Esterase Negative Urine RBC 0-2 Urine WBC 0-2 Ur Squamous Epith Cells None Urine Bacteria None SARS-CoV-2 (PCR) Negative SARS-CoV-2 POC Creatinine 1.2 01/14/24 01/14/24 01/15/24 17:29 21:07 06:20 WBC 6.45 RBC 3.82 L Hgb 11.6 L Hct 34.6 MCV 91 MCH 30 MCHC 34 RDW Coeff of Etrrell 12.9 Plt Count 219 Neut % (Auto) 86.4 H Lymph % (Auto) 4.8 L Newberry % (Auto) 8.4 Eos % (Auto) 0.0 Baso % (Auto) 0.2 Neut # (Auto) 5.60 Lymph # (Auto) 0.30 L Newberry # (Auto) 0.50 Eos # (Auto) 0.00 Baso # (Auto) 0.01 Abs Immat Gran (auto) 0.01 Imm/Tot Granulo (auto) 0.2 Sodium 129 L Potassium 4.4 Chloride 102 Carbon Dioxide 18 L Anion Gap 9 BUN 37 H Creatinine 1.2 Estimated Creat Clear 39.81 Estimated GFR 49 Glucose 98 Lactate 1.3 Calcium 8.0 L Phosphorus 2.8 Magnesium 1.5 Total Bilirubin 0.4 AST 27 ALT 10 Alkaline Phosphatase 27 L Troponin I 0.67 H* 0.63 H* 0.38 H* C-Reactive Protein 7.2 H Total Protein 5.5 L Albumin 3.1 L Lipase 726 H Urine Color Urine Appearance Urine pH Ur Specific Rodney Urine Protein Urine Glucose (UA) Urine Ketones Urine Blood Urine Nitrite Urine Bilirubin Urine Urobilinogen Ur Leukocyte Esterase Urine RBC Urine WBC Ur Squamous Epith Cells Urine Bacteria SARS-CoV-2 (PCR) POC Creatinine
--- NOTE | 2024-01-15 11:56 | P.CCEN_ITS ---
Critical Care Event Note Summary Code activated: No Narrative: Patient with acute worsening of her abdominal pain this morning when she tried to move. Imaging obtained with CT scan showing a significant amount of free air, concerning for gastric or duodenal ulcer perforation. In talking with the patient she does have a history of gastric ulcer, which had healed. She does take prednisone daily for her lupus. She has been on imipenem for antibiotics and stress dose steroids 100 mg hydrocortisone q.8 hours. She is in discomfort and acute distress this morning with a peritoneal abdomen. Recommend proceeding to the operating room emergently for exploratory laparotomy to get source control. Patient is tachycardic and hypotensive ( 92/55). Evidence on labs of hyponatremia and metabolic acidosis ( bicarbonate 18). She did have an elevation in her troponin this morning, likely secondary to stress, Which is trending down. Her EKG is within normal limits. She does have a pacemaker in place. Patient is a high risk surgical candidate and will likely need CCU cares pos toperatively. She does understand that this case has a high probability of a clinically significant, sudden, or life threatening deterioration which may require transfer to a tertiary center. Critical care time: less than 30 mins
--- NOTE | 2024-01-15 14:37 | P.GSOP_ITS ---
Operative Note Date of procedure: 01/15/24 Pre-op diagnosis: Gastrointestinal perforation Post-op diagnosis: Perforation of the posterior stomach Type of Procedure: 1. Exploratory laparotomy 2. Primary repair of gastric ulcer perforation with Tang patch Indications: Patient is a 68-year-old female who had an acute change in her clinical presentation with workup revealing intra-abdominal free air. Recommendation to proceed to the OR for an emergency exploratory laparotomy. Risks and benefits of operative intervention were discussed at length with the patient. Risks included but was not limited to: Bleeding, infection, risk of damage to surrounding structures, possible need for additional procedures and postoperative complications such as pneumonia, pulmonary emboli or GA. Patient is a high risk surgical candidate given her multiple comorbidities. All questions and concerns were addressed with the patient agreeing to proceed. Procedure Description: After discussing the risks and benefits of the procedure, the patient signed informed consent.? The operative site was marked and the patient was brought to the operating room and placed on the operating table in supine position.? Care was taken to pad the patient's pressure points.?? The patient was then intubated by anesthesia.??A Garcia catheter was placed under sterile conditions. The operative site was then prepped and draped in the usual sterile fashion.? A time-out was then performed. An upper midline incision was made with a 15 blade scalpel. Dissection was carried down with cautery through subcutaneous tissue. The fascia was incised with cautery. The incision was extended superior and inferior. The peritoneum was incised with Metzenbaum scissors and the abdomen entered. Large amount of intra-abdominal air and succus present. An Jaswant wound retractor was placed. The succus was suctioned. The anterior aspect of the stomach was healthy in appearance. The gallbladder was tense and distended, but no evidence of inflammation or thickening of the gallbladder wall. The 1st portion of the duod enum had a moderate amount of succus and fibrinous exudate overlying the top. This was irrigated with no evidence of injury. The lesser sac was entered through the gastrocolic ligaments. These were taken down and tied off with 3-0 Vicryl ties. A large amount of contamination was present within the lesser sac. This was bilious in character. The posterior antrum had a large 3 cm ulceration, which was the source of contamination. A small portion of the ulcer edge was sharply excised and sent to pathology. The edges around the ulcer were healthy in appearance. In order to visualize the entire extent of the ulcer the gastrocolic ligaments were further incised sequentially with Vicryl ties. A branch of the right gastroepiploic artery was doubly ligated and transected. The fibrinous exudate on the posterior aspect of the stomach was easily removed. Once the edges of the ulcer were fully identified the perforation was closed primarily with 0 silk pop-off sutures via a Lembert stitch. The repair was interrogated by gently pushing on the stomach with no evidence of leak. A small tongue of omentum was then chosen to patch over the repair. This was secured in place with two 0 silk pop-off sutures. An NG tube was placed by Anesthesia and confirmed to be within the stomach, just above the repair. The abdomen was then irrigated with 4 L of warm saline. A 15 Japanese Pérez drain was placed within the lesser sac and secured to the skin with 2-0 nylon suture. At this point in the procedure all dirty equipment was removed from the operative field and we closed the incision with clean equipment. The fascia was closed with 2 running looped 0 PDS suture. The subcutaneous space was irrigated with warm saline. The incision was closed in layers of interrupted 3 0 Vicryl and running 4-0 Monocryl subcuticular stitch. Sterile dressings were then applied. ? The patient was then woken and transported to the recovery area in stable condition. ? The patient tolerated the procedure well. Findings: Large (3 cm) posterior stomach ulceration. Anesthesia: GETA Surgeon: Arti Hoover MD Estimated blood loss (mL): 10 Additional Specimen Information: Biopsy of gastric ulcer Condition: stable Disposition: PACU
--- NOTE | 2024-01-15 15:07 | W.ANESCHARGE ---
Anesthesia Charges Start Date/Time Anesthesia Start Date: 01/15/24 Anesthesia Start Time: 12:15 Stop Date/Time Anesthesia Stop Date: 01/15/24 Anesthesia Stop Time: 14:55 Summary Emergency: [facility]
--- NOTE | 2024-01-15 15:08 | W.PM.NB ---
Nerve Block Nerve Block Time Seen by Provider: 14:45 Date Seen: 01/15/24 Type of block requested by surgeon for post-operative analgesia: TAP Side: bilateral Time out performed: Yes Verification of patient name: Yes Verification of date of : Yes Site marking: not applicable Name of person performing procedure: Justin Continuous monitoring Was continuous monitoring of O2 sat, B/P, threat monitoring analyst, recorded every 15 minutes?: Yes Procedure Checklist: sterile prep and needles Ultrasound guided. Images saved: Yes Medications given in 5ml increments after negative aspiration: Marcaine %: 0.25 mL: 30 Needle gauge: 20 and Exparel mL: 10 Needle gauge: 20 Patient tolerated procedure well: Yes Block Charges Block Charge (with Pro Fee): TAP Bilateral Use of Ultrasound Machine for Block: Yes- US Guidance/pain block
[2024-01-15] MEDS: HYDROmorphone 0.5 mg/0.5 ml inj 0.4 MG IVP ×4 (15:54→23:07)
[2024-01-15 16:05] LABS: Hematocrit 37.4 % (33.0-51.0); Hemoglobin* 12.3 gm/dL (12.0-16.0); Immature Granulocytes Pct Auto 1.1 %; Lymphocytes Percent Auto 2.3 % (20-44); Mean Corpuscular HGB Conc 33 gm/dL (32-36); Mean Corpuscular Hemoglobin 30 pg (26-34); Mean Corpuscular Volume 92 fL (80-100); Monocytes Percent Auto 5.3 % (0.0-11.0); Neutrophils Percent Auto 91.3 % (42.0-72.0); Platelet Count* 179 K/uL (140-440); RDW Coefficient of Variation % 13.1 % (11.5-15.5); Red Blood Count 4.07 m/uL (4.00-5.20)
[2024-01-15 16:07] LABS: Slide Review Reflex No
[2024-01-15 16:15] LABS: Albumin* 3.2 g/dL (3.3-5.0); Chloride* 106 mmol/L (96-114)
[2024-01-15 16:16] LABS: Potassium* 4.6 mmol/L (3.6-5.1); Sodium* 131 mmol/L (135-149)
[2024-01-15 16:18] LABS: Alkaline Phosphatase* 31 U/L (40-150); Anion Gap 10 mEq/L (7-15); Aspartate Amino Transferase* 32 U/L (12-35); Bilirubin Total* 0.3 mg/dL (0.1-1.5); Carbon Dioxide* 15 mmol/L (20-32); Creatinine* 1.2 mg/dL (0.5-1.5); Est. Creatinine Clearance* 39.81; Estimated Glomerular Filt Rate 49 ml/min; Total Protein* 5.8 g/dL (6.0-8.3)
[2024-01-15 16:19] LABS: Alanine Aminotransferase* 14 U/L (4-35); Blood Urea Nitrogen* 34 mg/dL (7-30); Calcium* 7.5 mg/dL (8.4-10.6); Glucose* 87 mg/dL (60-115); Lipase* 1076 U/L (23-300)
--- NOTE | 2024-01-15 19:46 | PC.NURSE ---
Pt arrived to floor from PACU @ 1529, family at bedside. Radha ODELL, JUAN DAVID drain in place and draining. Pain 12/02, see MAR for medication management. Strict NPO. Dressing to midline abdomen clean, dry, and intact. Acitve ice to abdomen used as pt tolerates. Hypoactive bowel sounds.
[2024-01-15] MEDS: phenoL 1.4 % THROAT SPRAY 1 SPRAY MUCOUS MEM (20:11)
[2024-01-15] MEDS: LACTATED RINGERS 1000 ML 1,000 ML 125 ML IV (20:40)
[2024-01-16] VITALS (9 sets, daily range): BP systolic 145–177; BP diastolic 60–75; PULSE 80–95; RESP 14–20; TEMP 36.6–37.5; O2SAT 91–95
[2024-01-16] MEDS: HYDROmorphone 0.5 mg/0.5 ml inj 0.4 MG IVP ×8 (04:08→22:16)
[2024-01-16] MEDS: phenoL 1.4 % THROAT SPRAY 1 SPRAY MUCOUS MEM (04:09)
[2024-01-16] MEDS: LACTATED RINGERS 1000 ML 1,000 ML 125 ML IV ×3 (04:09→22:18)
[2024-01-16 06:22] LABS: Lactate* 1.1 mmol/L (0.5-1.9)
[2024-01-16 06:26] LABS: Basophils Percent Auto 0.1 % (0.0-3.0); Hematocrit 30.9 % (33.0-51.0); Hemoglobin* 10.1 gm/dL (12.0-16.0); Immature Granulocytes Pct Auto 0.4 %; Lymphocytes Percent Auto 3.1 % (20-44); Mean Corpuscular HGB Conc 33 gm/dL (32-36); Mean Corpuscular Hemoglobin 30 pg (26-34); Mean Corpuscular Volume 91 fL (80-100); Monocytes Percent Auto 5.5 % (0.0-11.0); Neutrophils Percent Auto 90.9 % (42.0-72.0); Platelet Count* 197 K/uL (140-440); RDW Coefficient of Variation % 13.1 % (11.5-15.5); Red Blood Count 3.38 m/uL (4.00-5.20); White Blood Count* 12.88 K/uL (4.50-11.00)
[2024-01-16 06:29] LABS: Slide Review Reflex No
--- NOTE | 2024-01-16 06:30 | PC.NURSE ---
Shift note: Surgical dressing is C/D/I, surrounding skin is intact. Pain in mid abdomen 01/02 managed with PRN meds, ice applied, pt able to rest. JUAN DAVID draining serosanguineous fluid, around 30ml throughout 10-12 hours. NG is intact, total output 100ml.
[2024-01-16 06:41] LABS: Albumin* 2.8 g/dL (3.3-5.0); Chloride* 110 mmol/L (96-114); Potassium* 4.1 mmol/L (3.6-5.1); Sodium* 135 mmol/L (135-149)
[2024-01-16 06:44] LABS: Alanine Aminotransferase* 14 U/L (4-35); Alkaline Phosphatase* 34 U/L (40-150); Anion Gap 7 mEq/L (7-15); Aspartate Amino Transferase* 37 U/L (12-35); Bilirubin Total* 0.2 mg/dL (0.1-1.5); Blood Urea Nitrogen* 26 mg/dL (7-30); Calcium* 7.4 mg/dL (8.4-10.6); Carbon Dioxide* 18 mmol/L (20-32); Creatinine* 0.9 mg/dL (0.5-1.5); Est. Creatinine Clearance* 47.78; Estimated Glomerular Filt Rate 69 ml/min; Glucose* 82 mg/dL (60-115); Lipase* 298 U/L (23-300); Total Protein* 5.3 g/dL (6.0-8.3)
--- NOTE | 2024-01-16 07:22 | P.IMPN_ITS ---
Progress Note: A&P Assessment and plan (1) Perforated gastric ulcer: Problem details: - repair with Dr. Arti Hoover of General surgery on 01/16/24 - NPO Status: Acute (2) Nonischemic nontraumatic myocardial injury: Problem details: - initial troponin 0.66 -->0.67 -->0.63 -->0.38 - no acute change on EKG, no angina or anginal equivalent symptoms. Likely myocardial ischemia due to acute illness/GI perforation - TTE ordered 01/15 Status: Acute (3) Adrenal crisis syndrome: Problem details: - clinical concern on presentation given GI symptoms, treated with hydrocortisone 100 mg IV Q8H x4 doses - cannot restart her 5mg oral Prednisone daily postoperatively, will treat with IV Hydrocortisone until taking po Status: Acute (4) Systemic lupus erythematosus (SLE) in adult: Problem details: - home medications include CellCept 1000mg BID, hydroxychloroquine 200mg Qd, and Prednisone 5mg daily (recently decreased from 7.5mg daily) - received stress doses of hydrocortisone 100 mg IV q.8 hours x4 doses upon admission, continue 50mg Hydrocortisone IV daily postoperatively given NPO status - holding Cellcept and hydroxychloroquine postoperatively - [employer] And Real [employer] Director is Dr. Freeman Lopez at [facility] Status: Acute (5) Primary hypertension: Problem details: - on Carvedilol, Losartan, and Spironolactone as outpatient - holding given NPO status. Intolerant of many IV options (cannot tolerate Metoprolol or Hydralazine), may require alternative antihypertensive management if BP becomes significantly elevated (nitro?) - history of hypertensive urgency as recently as 3 months ago (hospitalized at [facility] October 2023), monitor closely Status: Acute (6) COPD (chronic obstructive pulmonary disease): Problem details: - stable, not on supplemental O2 - IS postoperatively Status: Acute (7) Peripheral vascular disease: Problem details: - s/p B carotid endarterectomies, B iliac stents, known LLE critical limb ischemia - was scheduled for an outpatient angiogram last week (this was cancelled 2/2 patient illness) - on ASA as outpatient, holding as of 01/14 given perforated gastric ulcer - sees Dr. Joseph of Vascular surgery Status: Acute (8) Pacemaker: Problem details: - placed October 2023 Status: Acute Plan - per above - start PT and OT on 01/16 Subjective Date Seen: 01/16/24 Interval history: Richa was admitted to the hospital on 01/13 for nausea, vomiting, and diarrhea; concern for acute adrenal insufficiency given chronic steroid use and inability to tolerate po intake upon admission. On 01/14, had worsening pass and cessation of flatus; repeat imaging revealed free air with concern of gastric perforation. POD#1 from ex lap and gastric ulcer repair with Dr. Hoover of General Surgery. Moved to CCU postoperatively and has remained hemodynamically stable with reassuring labs. Troponin noted to be elevated upon admission (peak at 0.67); this morning it is 0.12. No CP or concerning EKG findings; TTE to be done today. Has NG tube and JUAN DAVID drain in place. On Imipenem and Cilastatin, IV Hydrocortisone. Exam Narrative: Exam Narrative: GEN: Alert and oriented, laying in bed HEENT: NG tube in place, EOMIs bilaterally, no scleral icterus CV: RRR R: Lungs clear without wheezing Ab: + nonbloody drainage from JUAN DAVID, appropriate postoperative ttp Ext: no concerning edema, diminished pulse LLE (c/w known PVD) Neuro: No focal deficits Psych: Appropriate Const: Vital Signs, click to edit/add: Vital Signs - 24 hr 01/15/24 08:23 01/15/24 08:29 01/15/24 09:00 Temperature Pulse Rate Pulse Rate [Pulse Oximeter] 75 Pulse Rate [Right Pulse Oximeter] 78 Pulse Rate [orthos tatic sitting Righ t Pulse Oximeter] 81 Pulse Rate [orthos tatic standing Rig ht Pulse Oximeter] 100 Respiratory Rate 14 14 Blood Pressure Blood Pressure [Le ft Arm] 127/58 L Blood Pressure [Ri ght Arm] Blood Pressure [or thostatic lying Le ft Arm] 123/56 L Blood Pressure [or thostatic sitting] 127/58 L Blood Pressure [or thostatic standing Left Arm] 92/55 L Pulse Oximetry 94 96 Oxygen Delivery Me thod Room Air 01/15/24 11:00 01/15/24 14:50 01/15/24 14:55 Temperature 97.5 F L 99.0 F Pulse Rate 80 76 Pulse Rate [Pulse Oximeter] 83 Pulse Rate [Right Pulse Oximeter] Pulse Rate [orthos tatic sitting Righ t Pulse Oximeter] Pulse Rate [orthos tatic standing Rig ht Pulse Oximeter] Respiratory Rate 16 16 14 Blood Pressure 156/67 H 168/69 H Blood Pressure [Le ft Arm] 123/58 L Blood Pressure [Ri ght Arm] Blood Pressure [or thostatic lying Le ft Arm] Blood Pressure [or thostatic sitting] Blood Pressure [or thostatic standing Left Arm] Pulse Oximetry 96 98 94 Oxygen Delivery Me thod Room Air Room Air Room Air 01/15/24 15:00 01/15/24 15:05 01/15/24 15:15 Temperature 98.8 F Pulse Rate 84 80 78 Pulse Rate [Pulse Oximeter] Pulse Rate [Right Pulse Oximeter] Pulse Rate [orthos tatic sitting Righ t Pulse Oximeter] Pulse Rate [orthos tatic standing Rig ht Pulse Oximeter] Respiratory Rate 16 14 14 Blood Pressure 168/70 H 168/68 H 173/70 H Blood Pressure [Le ft Arm] Blood Pressure [Ri ght Arm] Blood Pressure [or thostatic lying Le ft Arm] Blood Pressure [or thostatic sitting] Blood Pressure [or thostatic standing Left Arm] Pulse Oximetry 94 94 93 Oxygen Delivery Me thod Room Air Room Air Room Air 01/15/24 15:20 01/15/24 15:30 01/15/24 15:45 Temperature 98.1 F 98.1 F Pulse Rate 80 77 77 Pulse Rate [Pulse Oximeter] Pulse Rate [Right Pulse Oximeter] Pulse Rate [orthos tatic sitting Righ t Pulse Oximeter] Pulse Rate [orthos tatic standing Rig ht Pulse Oximeter] Respiratory Rate 14 18 18 Blood Pressure 158/67 H 151/69 H 153/69 H Blood Pressure [Le ft Arm] Blood Pressure [Ri ght Arm] Blood Pressure [or thostatic lying Le ft Arm] Blood Pressure [or thostatic sitting] Blood Pressure [or thostatic standing Left Arm] Pulse Oximetry 94 92 92 Oxygen Delivery Me thod Room Air Room Air Room Air 01/15/24 16:00 01/15/24 16:15 01/15/24 16:30 Temperature 98.1 F 97.8 F 97 F L Pulse Rate 76 80 80 Pulse Rate [Pulse Oximeter] Pulse Rate [Right Pulse Oximeter] Pulse Rate [orthos tatic sitting Righ t Pulse Oximeter] Pulse Rate [orthos tatic standing Rig ht Pulse Oximeter] Respiratory Rate 18 16 16 Blood Pressure 141/64 H 158/66 H 151/66 H Blood Pressure [Le ft Arm] Blood Pressure [Ri ght Arm] Blood Pressure [or thostatic lying Le ft Arm] Blood Pressure [or thostatic sitting] Blood Pressure [or thostatic standing Left Arm] Pulse Oximetry 93 93 94 Oxygen Delivery Me thod Room Air Room Air Room Air 01/15/24 16:45 01/15/24 17:00 01/15/24 17:30 Temperature 97.7 F 97.6 F Pulse Rate 79 79 81 Pulse Rate [Pulse Oximeter] Pulse Rate [Right Pulse Oximeter] Pulse Rate [orthos tatic sitting Righ t Pulse Oximeter] Pulse Rate [orthos tatic standing Rig ht Pulse Oximeter] Respiratory Rate 16 16 16 Blood Pressure 162/67 H 164/65 H 140/59 H Blood Pressure [Le ft Arm] Blood Pressure [Ri ght Arm] Blood Pressure [or thostatic lying Le ft Arm] Blood Pressure [or thostatic sitting] Blood Pressure [or thostatic standing Left Arm] Pulse Oximetry 94 95 95 Oxygen Delivery Me thod 01/15/24 18:00 01/15/24 18:30 01/15/24 19:00 Temperature Pulse Rate 83 83 88 Pulse Rate [Pulse Oximeter] Pulse Rate [Right Pulse Oximeter] Pulse Rate [orthos tatic sitting Righ t Pulse Oximeter] Pulse Rate [orthos tatic standing Rig ht Pulse Oximeter] Respiratory Rate 16 16 Blood Pressure 144/61 H 156/68 H 155/64 H Blood Pressure [Le ft Arm] Blood Pressure [Ri ght Arm] Blood Pressure [or thostatic lying Le ft Arm] Blood Pressure [or thostatic sitting] Blood Pressure [or thostatic standing Left Arm] Pulse Oximetry 93 94 95 Oxygen Delivery Me thod Room Air 01/15/24 20:00 01/15/24 21:00 01/15/24 23:00 Temperature 99.0 F 98.5 F Pulse Rate 88 82 Pulse Rate [Pulse Oximeter] Pulse Rate [Right Pulse Oximeter] Pulse Rate [orthos tatic sitting Righ t Pulse Oximeter] Pulse Rate [orthos tatic standing Rig ht Pulse Oximeter] Respiratory Rate 16 16 16 Blood Pressure 152/63 H 140/55 H Blood Pressure [Le ft Arm] Blood Pressure [Ri ght Arm] Blood Pressure [or thostatic lying Le ft Arm] Blood Pressure [or thostatic sitting] Blood Pressure [or thostatic standing Left Arm] Pulse Oximetry 94 94 Oxygen Delivery Me thod Room Air Room Air 01/15/24 23:00 01/15/24 23:00 01/16/24 01:00 Temperature 98.3 F 98 F Pulse Rate Pulse Rate [Pulse Oximeter] 87 81 Pulse Rate [Right Pulse Oximeter] Pulse Rate [orthos tatic sitting Righ t Pulse Oximeter] Pulse Rate [orthos tatic standing Rig ht Pulse Oximeter] Respiratory Rate 16 16 16 Blood Pressure Blood Pressure [Le ft Arm] Blood Pressure [Ri ght Arm] 155/72 H 145/60 H Blood Pressure [or thostatic lying Le ft Arm] Blood Pressure [or thostatic sitting] Blood Pressure [or thostatic standing Left Arm] Pulse Oximetry 94 94 94 Oxygen Delivery Me thod Room Air Room Air Room Air 01/16/24 03:00 01/16/24 05:00 Temperature 98.4 F Pulse Rate Pulse Rate [Pulse Oximeter] 85 88 Pulse Rate [Right Pulse Oximeter] Pulse Rate [orthos tatic sitting Righ t Pulse Oximeter] Pulse Rate [orthos tatic standing Rig ht Pulse Oximeter] Respiratory Rate 18 18 Blood Pressure Blood Pressure [Le ft Arm] Blood Pressure [Ri ght Arm] 146/66 H 152/63 H Blood Pressure [or thostatic lying Le ft Arm] Blood Pressure [or thostatic sitting] Blood Pressure [or thostatic standing Left Arm] Pulse Oximetry 92 94 Oxygen Delivery Mi thod Room Air Room Air Labs Labs: Laboratory Results - last 24 hr 01/15/24 01/15/24 01/16/24 06:20 15:59 06:17 WBC 11.10 H 12.88 H RBC 4.07 3.38 L Hgb 12.3 10.1 L Hct 37.4 30.9 L MCV 92 91 MCH 30 30 MCHC 33 33 RDW Coeff of Terrell 13.1 13.1 Plt Count 179 197 Neut % (Auto) 91.3 H 90.9 H Lymph % (Auto) 2.3 L 3.1 L [place] % (Auto) 5.3 5.5 Eos % (Auto) 0.0 0.0 Baso % (Auto) 0.0 0.1 Neut # (Auto) 10.10 H 11.70 H Lymph # (Auto) 0.30 L 0.40 L [place] # (Auto) 0.60 0.70 Eos # (Auto) 0.00 0.00 Baso # (Auto) 0.00 0.00 Abs Immat Gran (auto) 0.10 0.10 Imm/Tot Granulo (auto) 1.1 0.4 Sodium 129 L 131 L 135 Potassium 4.4 4.6 4.1 Chloride 102 106 110 Carbon Dioxide 18 L 15 L 18 L Anion Gap 9 10 7 BUN 37 H 34 H 26 Creatinine 1.2 1.2 0.9 Estimated Creat Clear 39.81 39.81 47.78 Estimated GFR 49 49 69 Glucose 98 87 82 Lactate 1.1 Calcium 8.0 L 7.5 L 7.4 L Phosphorus 2.8 Magnesium 1.5 Total Bilirubin 0.4 0.3 0.2 AST 27 32 37 H ALT 10 14 14 Alkaline Phosphatase 27 L 31 L 34 L Troponin I 0.38 H* C-Reactive Protein 7.2 H Total Protein 5.5 L 5.8 L 5.3 L Albumin 3.1 L 3.2 L 2.8 L Lipase 726 H 1076 H 298
[2024-01-16] MEDS: HYDROCORTISONE SOD SUCCINATE 50 MG/ML inj IVP (07:55)
[2024-01-16] MEDS: PANTOPRAZOLE SODIUM 40 MG INJ IVP (07:55)
[2024-01-16 08:01] LABS: Troponin I* 0.12 ng/mL (0.01-0.04)
--- NOTE | 2024-01-16 11:59 | P.GSPN_ITS ---
Subjective Subjective Date Seen: 01/16/24 Interval history: Patient is doing better this morning. Main complaint is of dry mouth. She does have severe pain at the incision that wraps around her abdomen, this is different compared to yesterday. Overall the pain is better than it was yes terday. Mild nausea, no emesis. Has not passed gas. Has not yet gotten up and walked the halls. Exam Narrative: Exam Narrative: General: Alert and oriented, no acute distress. Nontoxic Respiratory: Equal breath rise bilaterally, maintained on room air HEENT: NG tube in place minimal dark bilious output in canister CV: Regular rhythm and rate Abdomen: Dressings in place clean/dry/intact. Upper bleed tender over incision sites. Some diffuse tenderness with mild guarding, no rebound. Non peritoneal. Soft and nondistended. Right upper quadrant incision in place minimal cloudy serosanguineous fluid. Const: Vital Signs, click to edit/add: Vital Signs - 24 hr 01/15/24 14:50 01/15/24 14:55 01/15/24 15:00 Temperature 99.0 F 98.8 F Pulse Rate 80 76 84 Pulse Rate [Pulse Oximeter] Respiratory Rate 16 14 16 Blood Pressure 156/67 H 168/69 H 168/70 H Blood Pressure [Ri ght Arm] Pulse Oximetry 98 94 94 Oxygen Delivery Me thod Room Air Room Air Room Air 01/15/24 15:05 01/15/24 15:15 01/15/24 15:20 Temperature Pulse Rate 80 78 80 Pulse Rate [Pulse Oximeter] Respiratory Rate 14 14 14 Blood Pressure 168/68 H 173/70 H 158/67 H Blood Pressure [Ri ght Arm] Pulse Oximetry 94 93 94 Oxygen Delivery Oh thod Room Air Room Air Room Air 01/15/24 15:30 01/15/24 15:45 01/15/24 16:00 Temperature 98.1 F 98.1 F 98.1 F Pulse Rate 77 77 76 Pulse Rate [Pulse Oximeter] Respiratory Rate 18 18 18 Blood Pressure 151/69 H 153/69 H 141/64 H Blood Pressure [Ri ght Arm] Pulse Oximetry 92 92 93 Oxygen Delivery Oh thod Room Air Room Air Room Air 01/15/24 16:15 01/15/24 16:30 01/15/24 16:45 Temperature 97.8 F 97 F L 97.7 F Pulse Rate 80 80 79 Pulse Rate [Pulse Oximeter] Respiratory Rate 16 16 16 Blood Pressure 158/66 H 151/66 H 162/67 H Blood Pressure [Ri ght Arm] Pulse Oximetry 93 94 94 Oxygen Delivery Me thod Room Air Room Air 01/15/24 17:00 01/15/24 17:30 01/15/24 18:00 Temperature 97.6 F Pulse Rate 79 81 83 Pulse Rate [Pulse Oximeter] Respiratory Rate 16 16 16 Blood Pressure 164/65 H 140/59 H 144/61 H Blood Pressure [Ri ght Arm] Pulse Oximetry 95 95 93 Oxygen Delivery Me thod 01/15/24 18:30 01/15/24 19:00 01/15/24 20:00 Temperature 99.0 F Pulse Rate 83 88 88 Pulse Rate [Pulse Oximeter] Respiratory Rate 16 16 Blood Pressure 156/68 H 155/64 H 152/63 H Blood Pressure [Ri ght Arm] Pulse Oximetry 94 95 94 Oxygen Delivery Me thod Room Air Room Air 01/15/24 21:00 01/15/24 23:00 01/15/24 23:00 Temperature 98.5 F Pulse Rate 82 Pulse Rate [Pulse Oximeter] Respiratory Rate 16 16 16 Blood Pressure 140/55 H Blood Pressure [Ri ght Arm] Pulse Oximetry 94 94 Oxygen Delivery Me thod Room Air Room Air 01/15/24 23:00 01/16/24 01:00 01/16/24 03:00 Temperature 98.3 F 98 F Pulse Rate Pulse Rate [Pulse Oximeter] 87 81 85 Respiratory Rate 16 16 18 Blood Pressure Blood Pressure [Ri ght Arm] 155/72 H 145/60 H 146/66 H Pulse Oximetry 94 94 92 Oxygen Delivery Me thod Room Air Room Air Room Air 01/16/24 05:00 01/16/24 07:00 01/16/24 07:00 Temperature 98.4 F Pulse Rate Pulse Rate [Pulse Oximeter] 88 85 Respiratory Rate 18 20 20 Blood Pressure Blood Pressure [Ri ght Arm] 152/63 H Pulse Oximetry 94 95 Oxygen Delivery Me thod Room Air Room Air 01/16/24 07:00 01/16/24 07:34 01/16/24 09:00 Temperature 98.7 F 98.3 F Pulse Rate 83 Pulse Rate [Pulse Oximeter] 85 80 Respiratory Rate 20 18 Blood Pressure Blood Pressure [Ri ght Arm] 162/69 H 150/62 H Pulse Oximetry 95 94 Oxygen Delivery Me thod Room Air Room Air 01/16/24 11:00 Temperature 99.1 F Pulse Rate Pulse Rate [Pulse Oximeter] 84 Respiratory Rate 18 Blood Pressure Blood Pressure [Ri ght Arm] 159/71 H Pulse Oximetry 95 Oxygen Delivery Me thod Room Air Labs/Imaging Labs Labs: Leukocytosis (12), hemoglobin (10.1). Bicarb minute 18, improved from yesterday. Troponin trending down (0.12). Imaging Imaging: No new imaging. Progress Note:A&P Assessment and plan (1) Perforated gastric ulcer: Status: Acute Assessment and Plan: Patient is a 68-year-old female postop day 1 exploratory laparotomy with evidence of large perforated gastric ulcer. This was repaired primarily with omentum placed over the repair. A JUAN DAVID drain was left in place. Vital signs stable overnight, continues to be hypertensive. Leukocytosis (12) not unexpected in the immediate postop phase. She continues on IV antibiotics. Hemoglobin (10.1) ambulatory service representative of dilution and postoperative loss with no concern for ongoing bleeding. JUAN DAVID drain with minimal serous fluid, slightly clou dy in appearance. NG tube with minimal dark bilious output. -NPO, IV fluids. Patient is okay for half a cup of ice chips every 8 hours and 1 lozenge every 6 hours for her dry mouth. -continue NG to low intermittent suction, will plan for Gastrografin study on Tuesday to assess repair. -JUAN DAVID to stay in place, continue to monitor output. -continue IV antibiotics -encourage ambulation -SCDs, okay for Lovenox for DVT prophylaxis All other cares per hospitalist.
[2024-01-16] MEDS: CALCIUM GLUC 1,000MG/50 ML 1,000 MG/50 ML BAG 100 MG IVPB (12:27)
[2024-01-16] MEDS: LOSARTAN POTASSIUM 50 MG TABLET PO (12:52)
--- NOTE | 2024-01-16 15:05 | PC.NURSE ---
End of shift [id number]: Pt has been A&O this shift. VSS with exception to elevated BP highest reading 162/69. Unable to give IV metoprolol or IV hydralazine d/t patient?s allergies. Losartan PO given 1x for BP management. T-max 99.1 this morning. PIV in left AC is infusing LR @ 125 mL/hr. PIV in right AC was leaking upon arrival this morning so access was lost. Pt continues to have increased incisional pain; utilizing PRN IV Dilaudid which was given last @ 1430. Midline dressing & RUQ dressing both C/D/I. Garcia removed this morning and pt has voided on BSC since. JUAN DAVID drain putting out cloudy, peach colored drainage; total output: 190 mL. NG in right nare measuring at 55 cm putting out dark green/brownish drainage. Total output in 8 hours: 100 mL. ECHO performed bedside this morning. IV Protonix & IV Solu-Cortef both initiated today. TELE applied today & reading NSR rate in the 80s. ?
[2024-01-16] MEDS: BENZOCAINE/MENTHOL 1 EACH LOZENGE MUCOUS MEM ×2 (16:28→23:29)
--- NOTE | 2024-01-16 19:15 | PC.NURSE ---
Shift Summary 15-19: Patient pleasant and cooperative. Up with SBA and walker. Vitals stable, increased BP following ambulating. Pain managed with PRN medication and ice. Explained to patient new order for half glass of ice q8h, patient is agreeable. Continues to be NPO otherwise.
[2024-01-17] VITALS (9 sets, daily range): BP systolic 177–191; BP diastolic 71–83; PULSE 73–94; RESP 16–20; TEMP 36.9–37.4; O2SAT 90–93
[2024-01-17] MEDS: HYDROmorphone 0.5 mg/0.5 ml inj 0.4 MG IVP ×3 (02:50→10:10)
[2024-01-17 06:27] LABS: Ionized Calcium* 1.13 mmol/L (1.11-1.30)
[2024-01-17] MEDS: LACTATED RINGERS 1000 ML 1,000 ML 125 ML IV ×3 (06:36→23:52)
[2024-01-17 06:38] LABS: Basophils Percent Auto 0.1 % (0.0-3.0); Hematocrit 28.4 % (33.0-51.0); Hemoglobin* 9.2 gm/dL (12.0-16.0); Immature Granulocytes Pct Auto 1.3 %; Lymphocytes Percent Auto 7.1 % (20-44); Mean Corpuscular HGB Conc 32 gm/dL (32-36); Mean Corpuscular Hemoglobin 30 pg (26-34); Mean Corpuscular Volume 92 fL (80-100); Monocytes Percent Auto 4.9 % (0.0-11.0); Neutrophils Percent Auto 86.6 % (42.0-72.0); Platelet Count* 210 K/uL (140-440); RDW Coefficient of Variation % 13.3 % (11.5-15.5); Red Blood Count 3.09 m/uL (4.00-5.20); White Blood Count* 11.49 K/uL (4.50-11.00)
[2024-01-17 06:46] LABS: Albumin* 2.8 g/dL (3.3-5.0); Slide Review Reflex No
[2024-01-17 06:47] LABS: Chloride* 110 mmol/L (96-114); Potassium* 3.8 mmol/L (3.6-5.1); Sodium* 138 mmol/L (135-149)
[2024-01-17 06:49] LABS: Anion Gap 8 mEq/L (7-15); Aspartate Amino Transferase* 49 U/L (12-35); Bilirubin Total* 0.2 mg/dL (0.1-1.5); Carbon Dioxide* 20 mmol/L (20-32); Creatinine* 0.7 mg/dL (0.5-1.5); Est. Creatinine Clearance* 47.78; Estimated Glomerular Filt Rate 94 ml/min
[2024-01-17 06:50] LABS: Alanine Aminotransferase* 17 U/L (4-35); Alkaline Phosphatase* 43 U/L (40-150); Blood Urea Nitrogen* 19 mg/dL (7-30); Calcium* 8.4 mg/dL (8.4-10.6); Glucose* 83 mg/dL (60-115); Magnesium* 2.3 mg/dL (1.5-2.6); Total Protein* 5.4 g/dL (6.0-8.3)
--- NOTE | 2024-01-17 07:04 | PC.NURSE ---
End of shift [id number]: A&O pleasant and cooperative. Hypertensive, provider aware. VS otherwise stable. Pt painful and teary overnight. See eMAR for intervention. Pt reporting pain in left upper quadrant. Once standing pt reports less pain. Ice to site. Denies n/v. Pt denies passing gas but she is starting to burp and reports some relief with those. BS active in right quadrants. NG in place and draining green/brown liquid. Up with A1 and water. Pt needs encouragement but ambulates well. Using call light appropriately.
--- NOTE | 2024-01-17 07:44 | P.IMPN_ITS ---
Progress Note: A&P Assessment and plan (1) Perforated gastric ulcer: Problem details: - repair with Dr. Arti Hoover of General surgery on 01/16/24 - still NPO, awaiting bowel function - gastrograffin study 01/17 Status: Acute (2) Pacemaker: Problem details: - placed October 2023 Status: Acute (3) Nonischemic nontraumatic myocardial injury: Problem details: - initial troponin 0.66 -->0.67 -->0.63 -->0.38 - no acute change on EKG, no angina or anginal equivalent symptoms. Likely myocardial ischemia due to acute illness/GI perforation - TTE ordered 01/15: Final Impressions: 1. Normal LV size, normal wall thickness, normal global systolic function with an estimated EF of 60 - 65%. 2. Right ventricular cavity size is normal, global systolic RV function is normal. 3. Normal diastolic function. 4. No significant valve disease detected. Status: Acute (4) On prednisone therapy: Problem details: - daily, for SLE (prior to admission, was decreased from 7.5mg --> 5mg daily) Status: Acute (5) Systemic lupus erythematosus (SLE) in adult: Problem details: - home medications include CellCept 1000mg BID, hydroxychloroquine 200mg Qd, and Prednisone 5mg daily (recently decreased from 7.5mg daily) - received stress doses of hydrocortisone 100 mg IV q.8 hours x4 doses upon admission, continue 50mg Hydrocortisone IV daily postoperatively given NPO status - holding Cellcept and hydroxychloroquine postoperatively - Rheum: Dr. Freeman Lopez at [facility]. Reviewed with him on 01/16; okay to hold CellCept and Plaquenil now, prefer restarting when she is able to tolerate po intake Status: Acute (6) COPD (chronic obstructive pulmonary disease): Problem details: - stable, not on supplemental O2 - IS postoperatively Status: Acute (7) Primary hypertension: Problem details: - on Carvedilol, Losartan, and Spironolactone as outpatient - intolerant of many IV options (cannot tolerate Metoprolol or Hydralazine) - taking Losartan orally postoperatively, will restart Carvedilol 01/17/24 as well - history of hypertensive urgency as recently as 3 months ago (hospitalized at [facility] October 2023). Currently has no headache or evidence of end organ damange Status: Acute (8) Peripheral vascular disease: Problem details: - s/p B carotid endarterectomies, B iliac stents, known LLE critical limb ischemia - was scheduled for an outpatient angiogram last week (this was cancelled 2/2 patient illness) - on ASA as outpatient, holding as of 01/14 given perforated gastric ulcer - sees Dr. Joseph of Vascular surgery Status: Acute (9) Sjogren's syndrome: Status: Acute Plan - per above - Lovenox and PPI for ppx Subjective Date Seen: 01/17/24 Interval history: Richa was admitted to the hospital on 01/13 for nausea, vomiting, and diarrhea. Pain significantly worsened on hospital day 1; repeat imaging revealed free air with concern of gastric perforation and she urgently went to the OR. POD#2 from ex lap and gastric ulcer repair with Dr. Hoover of General Surgery. Had a troponin elevation (peak at 0.67) without CP, telemetry changes, or concerning EKG findings. Reasurring TTE 01/16/24. Has NG tube and JUAN DAVID drain in place, both decreasing in output. Garcia removed, ambulating to bathroom. Starting therapies today. On Imipenem and Cilastatin, IV Hydrocortisone. Has restarted Losartan orally (intolerant of most anti-hypertensives), SBP 150-180. This morning, Richa's primary concern is dry mouth and throat. She is able to have small amounts of ice chips and throat lozenges. Abdominal pain waxes and wanes, no flatus. Exam Narrative: Exam Narrative: GEN: Alert and oriented, laying in bed HEENT: EOMIs bilaterally, no scleral icterus. Oropharynx mildly dry, making tears CV: RRR, No concerning murmurs, rubs, or gallops R: LCTA bilaterally, decreased bilateral bases Ab: Mild drainage from JUAN DAVID, mild distension, +ttp Ext: No concerning edema, diminished pulses on LLE, c/w history Skin: No concerning skin lesions or rashes on exposed skin Neuro: Nonfocal Psych: Appropriate Const: Vital Signs, click to edit/add: Vital Signs - 24 hr 01/16/24 09:00 01/16/24 11:00 01/16/24 15:30 Temperature 98.3 F 99.1 F Pulse Rate 95 Pulse Rate [Pulse Oximeter] 80 84 Respiratory Rate 18 18 Blood Pressure [Ri ght Arm] 150/62 H 159/71 H Pulse Oximetry 94 95 Oxygen Delivery Me thod Room Air Room Air 01/16/24 15:30 01/16/24 15:30 01/16/24 19:17 Temperature 98.7 F 99.5 F Pulse Rate Pulse Rate [Pulse Oximeter] 86 92 Respiratory Rate 16 16 14 Blood Pressure [Ri ght Arm] 177/75 H 171/65 H Pulse Oximetry 91 91 91 Oxygen Delivery Me thod Room Air Room Air Room Air 01/17/24 00:16 01/17/24 00:17 01/17/24 00:23 Temperature 98.9 F Pulse Rate 94 Pulse Rate [Pulse Oximeter] 94 Respiratory Rate 18 18 Blood Pressure [Ri ght Arm] 177/71 H Pulse Oximetry 91 91 Oxygen Delivery Me thod Room Air Room Air 01/17/24 03:00 Temperature 99.3 F Pulse Rate Pulse Rate [Pulse Oximeter] 89 Respiratory Rate 18 Blood Pressure [Ri ght Arm] 182/78 H Pulse Oximetry 92 Oxygen Delivery Me thod Room Air Labs Labs: Laboratory Results - last 24 hr 01/16/24 01/17/24 06:17 06:21 WBC 11.49 H RBC 3.09 L Hgb 9.2 L Hct 28.4 L MCV 92 MCH 30 MCHC 32 RDW Coeff of Terrell 13.3 Plt Count 210 Neut % (Auto) 86.6 H Lymph % (Auto) 7.1 L [place] % (Auto) 4.9 Eos % (Auto) 0.0 Baso % (Auto) 0.1 Neut # (Auto) 10.00 H Lymph # (Auto) 0.80 L [place] # (Auto) 0.60 Eos # (Auto) 0.00 Baso # (Auto) 0.00 Abs Immat Gran (auto) 0.10 Imm/Tot Granulo (auto) 1.3 Sodium 138 Potassium 3.8 Chloride 110 Carbon Dioxide 20 Anion Gap 8 BUN 19 Creatinine 0.7 Estimated Creat Clear 47.78 Estimated GFR 94 Glucose 83 Calcium 8.4 Ionized Calcium Sb 1.13 Magnesium 2.3 Total Bilirubin 0.2 AST 49 H ALT 17 Alkaline Phosphatase 43 Troponin I 0.12 H* Total Protein 5.4 L Albumin 2.8 L
[2024-01-17] MEDS: PANTOPRAZOLE SODIUM 40 MG INJ IVP (08:13)
[2024-01-17] MEDS: HYDROCORTISONE SOD SUCCINATE 50 MG/ML inj IVP (08:13)
[2024-01-17] MEDS: LOSARTAN POTASSIUM 50 MG TABLET 100 MG PO (08:14)
[2024-01-17] MEDS: BENZOCAINE/MENTHOL 1 EACH LOZENGE MUCOUS MEM ×2 (10:50→16:31)
--- NOTE | 2024-01-17 12:20 | P.GSPN_ITS ---
Subjective Subjective Date Seen: 01/17/24 Interval history: Patient feels like everyday she is getting better. She did have some pain last night, controlled with pain medication. She feels better standing up than lying flat. She feels distended. Denies any passage of gas, is burping more today. Denies any nausea. Exam Narrative: Exam Narrative: General: Alert and oriented, no acute distress Abdomen: Soft, moderate distention, appropriately tender over incision sites. Dressings removed midline incision with Steri-Strips in place clean/dry/intact. No concern for infection. Right upper quadrant drain in place with minimal serous fluid. Const: Vital Signs, click to edit/add: Vital Signs - 24 hr 01/16/24 15:30 01/16/24 15:30 01/16/24 15:30 Temperature 98.7 F Pulse Rate 95 Pulse Rate [Pulse Oximeter] 86 Respiratory Rate 16 16 Blood Pressure [Ri ght Arm] 177/75 H Pulse Oximetry 91 91 Oxygen Delivery Ma thod Room Air Room Air 01/16/24 19:17 01/17/24 00:16 01/17/24 00:17 Temperature 99.5 F 98.9 F Pulse Rate Pulse Rate [Pulse Oximeter] 92 94 Respiratory Rate 14 18 18 Blood Pressure [Ri ght Arm] 171/65 H 177/71 H Pulse Oximetry 91 91 91 Oxygen Delivery Ma thod Room Air Room Air Room Air 01/17/24 00:23 01/17/24 03:00 01/17/24 07:00 Temperature 99.3 F Pulse Rate 94 90 Pulse Rate [Pulse Oximeter] 89 Respiratory Rate 18 Blood Pressure [Ri ght Arm] 182/78 H Pulse Oximetry 92 Oxygen Delivery Ma thod Room Air 01/17/24 07:00 01/17/24 07:00 01/17/24 07:00 Temperature 98.8 F Pulse Rate Pulse Rate [Pulse Oximeter] 87 87 Respiratory Rate 20 20 20 Blood Pressure [Ri ght Arm] 182/79 H Pulse Oximetry 91 91 [facility] 01/17/24 11:05 Temperature 99.3 F Pulse Rate Pulse Rate [Pulse Oximeter] 89 Respiratory Rate 18 Blood Pressure [Ri ght Arm] 178/73 H Pulse Oximetry 92 Oxygen Delivery Ma thod Room Air Labs/Imaging Labs Labs: WBC (11) Imaging Imaging: No new imaging Progress Note:A&P Assessment and plan (1) Perforated gastric ulcer: Status: Acute Assessment and Plan: Patient is a 68-year-old female postop day 2 exploratory laparotomy with evidence of large perforated gastric ulcer. This was repaired primarily with omentum placed over the repair. A JUAN DAVID drain was left in place. Increased abdominal distension. High risk for postoperative ileus. NG tube remains in place. Will plan for Gastrografin study tomorrow morning to evaluate repair . -NPO, IV fluids. Patient is okay for half a cup of ice chips every 8 hours and 1 lozenge every 6 hours for her dry mouth. -continue NG to low intermittent suction. Gastrografin study scheduled for tomorrow morning -JUAN DAVID to stay in place, continue to monitor output. -continue IV antibiotics -encourage ambulation -SCDs, okay for Lovenox for DVT prophylaxis All other cares per hospitalist.
[2024-01-17] MEDS: HYDROmorphone 0.5 mg/0.5 ml inj IVP ×2 (14:36→19:04)
--- NOTE | 2024-01-17 15:10 | PC.NURSE ---
End of shift: [id number]: Pt has been A&O, afebrile and VSS this shift. She is SBA with 2ww for ambulation & transfers. PIV in left AC infusing LR @ 125 mL/hr. NG in right nare sits at 57cm with a total of 150 mL dark green output this shift. JUAN DAVID drain had 20 mL of peach colored drainage. Midline dressing + RUQ dressing C/D/I. Abd binder applied for patient comfort. PRN IV Dilaudid given throughout the day for midline pain, last given @ 1435. TELE reads NSR. ?
--- NOTE | 2024-01-17 15:32 | PC.SOCIAL ---
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 Social work to follow-up as needed.
[2024-01-17] MEDS: carvediloL 6.25 MG TABLET 12.5 MG PO (20:23)
[2024-01-18] MEDS: HYDROmorphone 0.5 mg/0.5 ml inj IVP ×5 (00:10→21:17)
--- NOTE | 2024-01-18 00:25 | PC.NURSE ---
End of Shift: Patient pleasant and cooperative. Temp max 99.1. NG to LIS. Denies nausea. No flatus. Steri-strips to abdomen C/D/I. Rating pain 7/10 and PRN Dilaudid given x1. Up to bathroom with SBA and walker. BP elevated, MD aware.
[2024-01-18 03:00] VITALS: BP 182/74; PULSE 69; RESP 16; TEMP 36.7; O2SAT 90
[2024-01-18] MEDS: BENZOCAINE/MENTHOL 1 EACH LOZENGE MUCOUS MEM (06:15)
--- NOTE | 2024-01-18 06:47 | PC.NURSE ---
END OF SHIFT NOTE: PT A&O. DENIES CP, SOB, N/V. AMBULATES A1 WITH WALKER. VSS ON RA; SBP HYPERTENSIVE 180?S/70?S; AFEBRILE. MIDLINE INCISION NICOLE. PT REQUESTS ABD BINDER OPEN DURING HS. BS ARE HYPOACTIVE. NO BM. JUAN DAVID TO RUQ PATENT AND DRAINING SEROUS TO SEROSANGUINEOUS OUTPUT. PT REPORTS PAIN TO ABD 7-8/10 WITH RELIEF FROM ACTIVE ICE AND PRN PAIN MEDICATION (SEE EMAR). BED ALARM ON AND CALL LIGHT WITHIN PT?S REACH.?
[2024-01-18 06:59] LABS: HCO3 VBG 23 mmol/L (21-28); PCO2 VBG 37 mmHG (40-50); PO2 VBG 30.4 mmHG (25-47); pH VBG 7.409 (7.32-7.43)
[2024-01-18 07:00] VITALS: BP 205/91; PULSE 75; PULSE 82; PULSE 85; RESP 20; TEMP 36.9; O2SAT 92
[2024-01-18 07:07] LABS: Basophils Percent Auto 0.1 % (0.0-3.0); Eosinophils Percent Auto 0.3 % (0.0-7.0); Hematocrit 27.7 % (33.0-51.0); Hemoglobin* 9.1 gm/dL (12.0-16.0); Immature Granulocytes Pct Auto 3.1 %; Lymphocytes Percent Auto 10.6 % (20-44); Mean Corpuscular HGB Conc 33 gm/dL (32-36); Mean Corpuscular Hemoglobin 30 pg (26-34); Mean Corpuscular Volume 92 fL (80-100); Monocytes Percent Auto 6.8 % (0.0-11.0); Neutrophils Percent Auto 79.1 % (42.0-72.0); Platelet Count* 238 K/uL (140-440); RDW Coefficient of Variation % 13.4 % (11.5-15.5); Red Blood Count 3.02 m/uL (4.00-5.20); White Blood Count* 12.64 K/uL (4.50-11.00)
[2024-01-18 07:13] LABS: Slide Review Reflex No
[2024-01-18 07:26] LABS: Chloride* 106 mmol/L (96-114); Potassium* 3.4 mmol/L (3.6-5.1); Sodium* 139 mmol/L (135-149)
[2024-01-18 07:29] LABS: Creatinine* 0.6 mg/dL (0.5-1.5); Est. Creatinine Clearance* 47.78; Estimated Glomerular Filt Rate 97 ml/min
[2024-01-18 07:30] LABS: Anion Gap 9 mEq/L (7-15); Blood Urea Nitrogen* 19 mg/dL (7-30); Calcium* 8.5 mg/dL (8.4-10.6); Carbon Dioxide* 24 mmol/L (20-32); Glucose* 88 mg/dL (60-115); Magnesium* 1.9 mg/dL (1.5-2.6)
--- NOTE | 2024-01-18 08:21 | PM.IMPN1 ---
Progress Note: A&P Assessment and plan (1) Perforated gastric ulcer: Problem details: - repair with Dr. Arti Hoover of General surgery on 01/16/24 - still NPO, awaiting bowel function - repeat SMBT on 01/18 Status: Acute (2) Systemic lupus erythematosus (SLE) in adult: Problem details: - home medications include CellCept 1000mg BID, hydroxychloroquine 200mg Qd, and Prednisone 5mg daily (recently decreased from 7.5mg daily) - received stress doses of hydrocortisone 100 mg IV q.8 hours x4 doses upon admission, continue 50mg Hydrocortisone IV daily postoperatively given NPO status - holding Cellcept and hydroxychloroquine postoperatively - Rheum: Dr. Freeman Lopez at [facility]. Reviewed with him by phone on 01/16; ok to hold CellCept/Plaquenil now, restart when she is able to tolerate po intake Status: Acute (3) Nonischemic nontraumatic myocardial injury: Problem details: - initial troponin 0.66 -->0.67 -->0.63 -->0.38 - no acute change on EKG, no angina or anginal equivalent symptoms. Likely myocardial ischemia due to acute illness/GI perforation - TTE ordered 01/15: Final Impressions: 1. Normal LV size, normal wall thickness, normal global systolic function with an estimated EF of 60 - 65%. 2. Right ventricular cavity size is normal, global systolic RV function is normal. 3. Normal diastolic function. 4. No significant valve disease detected. Status: Acute (4) Primary hypertension: Problem details: - on Carvedilol, Losartan, and Spironolactone as outpatient - intolerant of many IV options (cannot tolerate Metoprolol or Hydralazine) - taking oral Losartan and Carvedilol as of 01/17/24 - history of hypertensive urgency as recently as 3 months ago (hospitalized at [facility] October 2023). Currently has no headache or evidence of end organ damage Status: Acute (5) Peripheral vascular disease: Problem details: - s/p B carotid endarterectomies, B iliac stents, known LLE critical limb ischemia - was scheduled for an outpatient angiogram last week (this was cancelled 2/2 patient illness) - on ASA as outpatient, holding as of 01/14 given perforated gastric ulcer - sees Dr. Joseph of Vascular surgery Status: Acute (6) Pacemaker: Problem details: - placed October 2023 Status: Acute (7) On prednisone therapy: Problem details: - daily, for SLE (prior to admission, was decreased from 7.5mg --> 5mg daily) - on IV hydrocortisone postoperatively Status: Acute Plan - per above - Repeat small-bowel follow-through tomorrow, per General surgery. Remain NPO with small amounts of ice chips in the meantime - Lovenox and IV PPI for prophylaxis Subjective Date Seen: 01/18/24 Interval history: Richa was admitted to the hospital on 01/13 for nausea, vomiting, and diarrhea. On hospital day 1, had significant increase in pain with free air on repeat imaging, taken to OR urgently. She had an Ex Lap and gastric ulcer repair with Dr. Hoover of General Surgery on 01/15/24. Had a troponin elevation (peak at 0.67) without CP, telemetry changes, or concerning EKG findings. Reassuring TTE 01/16/24. Small bowel follow through this morning, noted to have increased drainage from JUAN DAVID post-procedure. NG also in place, remains NPO. Has NG tube and JUAN DAVID drain in place, both decreasing in output. Garcia removed, ambulating and working with therapies. On Imipenem and Cilastatin, IV Hydrocortisone. Has restarted Carvedilol and Losartan orally (intolerant of most anti-hypertensives), SBP remains elevated. Richa has started passing flatus and is happy to be walking. Continues to have dry mouth and throat (known Sjogrens), no other concerns for hospitalist team. Exam Narrative: Exam Narrative: GEN: Alert HEENT: EOMIs bilaterally, no scleral icterus, NG tube in place CV: Pulse palpates as regular rate and rhythm R: Breathing comfortably, no tachypnea Ab: Starting to have bowel sounds, mild ttp Ext: thin extremities without edema Neuro: Nonfocal Psych: Appropriate Const: Vital Signs, click to edit/add: Vital Signs - 24 hr 01/17/24 11:05 01/17/24 15:00 01/17/24 15:00 Temperature 99.3 F 98.5 F Pulse Rate Pulse Rate [Pulse Oximeter] 89 86 Respiratory Rate 18 16 Blood Pressure [Ri ght Arm] 178/73 H 185/82 H Pulse Oximetry 92 91 91 Oxygen Delivery Me thod Room Air Room Air Room Air 01/17/24 15:00 01/17/24 15:00 01/17/24 19:00 Temperature 99.1 F Pulse Rate 87 Pulse Rate [Pulse Oximeter] 86 94 Respiratory Rate 16 18 Blood Pressure [Ri ght Arm] 191/83 H Pulse Oximetry 93 Oxygen Delivery Me thod Room Air 01/17/24 23:35 01/17/24 23:35 01/17/24 23:35 Temperature 98.5 F Pulse Rate 73 Pulse Rate [Pulse Oximeter] 76 76 Respiratory Rate 18 18 Blood Pressure [Ri ght Arm] 188/77 H Pulse Oximetry 90 Oxygen Delivery Me thod Room Air 01/17/24 23:35 01/18/24 03:00 Temperature 98.0 F Pulse Rate Pulse Rate [Pulse Oximeter] 69 Respiratory Rate 18 16 Blood Pressure [Ri ght Arm] 182/74 H Pulse Oximetry 90 90 Oxygen Delivery Me thod Room Air Room Air Labs Labs: Laboratory Results - last 24 hr 01/18/24 06:49 WBC 12.64 H RBC 3.02 L Hgb 9.1 L Hct 27.7 L MCV 92 MCH 30 MCHC 33 RDW Coeff of Terrell 13.4 Plt Count 238 Neut % (Auto) 79.1 H Lymph % (Auto) 10.6 L [place] % (Auto) 6.8 Eos % (Auto) 0.3 Baso % (Auto) 0.1 Neut # (Auto) 10.00 H Lymph # (Auto) 1.30 [place] # (Auto) 0.90 Eos # (Auto) 0.00 Baso # (Auto) 0.00 Abs Immat Gran (auto) 0.40 H Imm/Tot Granulo (auto) 3.1 VBG pH 7.409 VBG pCO2 37 L VBG pO2 30.4 VBG HCO3 23 Sodium 139 Potassium 3.4 L Chloride 106 Carbon Dioxide 24 Anion Gap 9 BUN 19 Creatinine 0.6 Estimated Creat Clear 47.78 Estimated GFR 97 Glucose 88 Calcium 8.5 Magnesium 1.9
[2024-01-18 09:00] VITALS: BP 164/87; PULSE 82; O2SAT 92
--- NOTE | 2024-01-18 09:15 | CRLHL7_ITS ---
For Patients: As a result of the Century Cures Act, medical imaging exams and procedure reports are released immediately into your electronic medical record. You may view this report before your referring provider. If you have questions, please contact your health care provider. Indication: Assess for leak Technique: Abdomen 1 view. Clinical team gave 100 cc Gastroview mixed with 100 cc water one hour before image. Comparison: Abdomen and pelvis CT 01/15/2024 Findings/Impression: Enteric tube is present at the level of the body of the stomach with a drain overlying the epigastric region and right upper quadrant. Borderline diameter loops of small bowel are seen throughout the mid abdomen with some mixed contrast in what appears to be part of stomach in the upper abdomen as well as some opacified small bowel loops which extend off the inferior margin of the image. No gross extravasation, however as the entire abdomen is not included on an upright examination sensitivity with this technique may be lowered. Trace left pleural effusion with retrocardiac airspace disease noted. Left side dual lead pacemaker. Dictated by Nghia Ontiveros MD @ 01/18/2024 10:54:01 AM (Electronically Signed)
[2024-01-18] MEDS: carvediloL 6.25 MG TABLET 12.5 MG PO ×2 (09:46→20:45)
[2024-01-18] MEDS: PANTOPRAZOLE SODIUM 40 MG INJ IVP (09:46)
[2024-01-18] MEDS: HYDROCORTISONE SOD SUCCINATE 50 MG/ML inj IVP (09:47)
[2024-01-18] MEDS: LOSARTAN POTASSIUM 50 MG TABLET 100 MG PO (09:48)
[2024-01-18] MEDS: LACTATED RINGERS 1000 ML 1,000 ML 125 ML IV ×2 (10:36→18:52)
[2024-01-18 11:52] VITALS: BMI 22.4
--- NOTE | 2024-01-18 13:54 | PC.NURSE ---
End of Shift Note: Patient has had a busy day. She went down for a small bowel follow through and then also had a portable abd x-ray. Then ambulated down the east hallway and back to her room. This afternoon she is now having moderate loose BM's. She did have a pain of 8/10 which she received a dose of dilaudid which appears to have help she has not requested futher pain medication. Did give report to Aparna OGLESBY as I am getting a unit patient.
[2024-01-18 15:00] VITALS: BP 168/72; PULSE 74; PULSE 87; RESP 16; TEMP 37.3; O2SAT 95
--- NOTE | 2024-01-18 15:31 | PC.SOCIAL ---
Discharge planning: immigration case worker tried multiple times to meet with the pt today and was not successful. The pt was either not in the room, being seen by the surgeon or working with other disciplines. immigration case worker talked to the provider on duty today who thought it would be best to plan for a Tuesday discharge to a SNF at this time. immigration case worker will plan to meet with the pt tomorrow. Social work to follow-up as needed.
--- NOTE | 2024-01-18 16:28 | PM.GSPN ---
Subjective Subjective Date Seen: 01/18/24 Interval history: Patient doing better this morning. Still feels pain throughout her abdomen, but wonders if it is gas pain. New discomfort on her L side. Denies any nausea or vomiting. Has started to pass gas. As the day progressed she also started to have bowel movements. Has been walking the halls. Has had an increase in her drain output. Exam Narrative: Exam Narrative: General: Alert and oriented, no acute distress abdomen: Soft, mild distention, no guarding or rebound. Some tenderness to palpation left side. Midline incision with Steri-Strips in place clean/dry/intact. Serous fluid with in JUAN DAVID drain. Const: Vital Signs, click to edit/add: Vital Signs - 24 hr 01/17/24 19:00 01/17/24 23:35 01/17/24 23:35 Temperature 99.1 F 98.5 F Pulse Rate 73 Pulse Rate [Pulse Oximeter] 94 76 Respiratory Rate 18 18 Blood Pressure [Ri ght Arm] 191/83 H 188/77 H Pulse Oximetry 93 90 Oxygen Delivery Ri thod Room Air Room Air 01/17/24 23:35 01/17/24 23:35 01/18/24 03:00 Temperature 98.0 F Pulse Rate Pulse Rate [Pulse Oximeter] 76 69 Respiratory Rate 18 18 16 Blood Pressure [Ri ght Arm] 182/74 H Pulse Oximetry 90 90 Oxygen Delivery Ri thod Room Air Room Air 01/18/24 07:00 01/18/24 07:00 01/18/24 07:00 Temperature 98.5 F Pulse Rate Pulse Rate [Pulse Oximeter] 85 82 Respiratory Rate 20 20 Blood Pressure [Ri ght Arm] 205/91 H Pulse Oximetry 92 92 Oxygen Delivery Ri thod Room Air Room Air 01/18/24 07:00 01/18/24 09:00 01/18/24 15:00 Temperature Pulse Rate 75 87 Pulse Rate [Pulse Oximeter] 82 Respiratory Rate Blood Pressure [Ri ght Arm] 164/87 H Pulse Oximetry 92 Oxygen Delivery Ri thod Room Air 01/18/24 15:00 01/18/24 15:00 Temperature 99.1 F Pulse Rate Pulse Rate [Pulse Oximeter] 74 Respiratory Rate 16 16 Blood Pressure [Ri ght Arm] 168/72 H Pulse Oximetry 95 95 Oxygen Delivery Ri thod Room Air Room Air Labs/Imaging Labs Labs: WBC (12), Hgb stable Imaging Imaging: Fluorsocopy with contrast in stomach and going into duo, no evidence of leak. AXR post procedure with contrast in small bowel. Progress Note:A&P Assessment and plan (1) Perforated gastric ulcer: Status: Acute Assessment and Plan: Patient is a 68-year-old female postop day 3 exploratory laparotomy with evidence of large perforated gastric ulcer. This was repaired primarily with omentum placed over the repair. A JUAN DAVID drain was left in place. Fluoro study performed in radiology with Gastrografin. Evidence of contrast within stomach and into small bowel. No evidence of extravasation during study. Post procedure patient did have a dramatic increase in drain output. This could be secondary to increased activity, but concern for possible small leak. An AXR at the bedside showed contrast within small bowel. The drain output was also XR in radiology, with no radiopaque dye apparent. Patient is certainly at high risk for a leak given her use of steroids, plaquenil and mycophenolate mofetil. Will continue with NGT to LIS and keep JUAN DAVID drain in place. Will plan to repeat the fluoroscopy study tomorrow morning. . -NPO, IV fluids. Patient is okay for half a cup of ice chips every 8 hours and 1 lozenge every 6 hours for her dry mouth. -continue NG to low intermittent suction. Gastrografin study scheduled for tomorrow morning -JUAN DAVID to stay in place, continue to monitor output. -continue IV antibiotics -encourage ambulation -SCDs, okay for Lovenox for DVT prophylaxis All other cares per hospitalist.
[2024-01-18] MEDS: 0.9 % SODIUM CHLORIDE 250 ml IV (18:54)
--- NOTE | 2024-01-18 19:14 | PC.NURSE ---
End of shift [id number]: Pt A&Ox4. 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 Relief noted. A1 with W. Pt continent of the bladder and bowels. Pt has had multiple moderate/large loose stools today. Midline incision CDI. Bowels active. JUAN DAVID to RUQ patent and draining serous output. Pt appears resting comfortably and reading, call light within reach. ?
[2024-01-18 20:40] VITALS: BP 211/94; PULSE 86; PULSE 87; RESP 18; TEMP 37; O2SAT 95
[2024-01-19] VITALS (7 sets, daily range): BP systolic 177–210; BP diastolic 79–97; PULSE 73–81; RESP 14–20; TEMP 36.7–37.6; O2SAT 90–96
[2024-01-19] MEDS: LACTATED RINGERS 1000 ML 1,000 ML 125 ML IV ×2 (05:23→16:40)
[2024-01-19 06:23] LABS: Basophils Absolute Auto 0.01 K/uL (0.00-0.30); Basophils Percent Auto 0.1 % (0.0-3.0); Eosinophils Absolute Auto 0.05 K/uL (0.00-0.50); Eosinophils Percent Auto 0.5 % (0.0-7.0); Hematocrit 29.5 % (33.0-51.0); Hemoglobin* 9.6 gm/dL (12.0-16.0); Immature Granulocytes Abs Auto 0.58 K/uL (0.00-0.30); Immature Granulocytes Pct Auto 5.6 %; Lymphocytes Percent Auto 13.2 % (20-44); Mean Corpuscular HGB Conc 33 gm/dL (32-36); Mean Corpuscular Hemoglobin 30 pg (26-34); Mean Corpuscular Volume 92 fL (80-100); Monocytes Percent Auto 9.4 % (0.0-11.0); Neutrophils Absolute Auto 7.44 K/uL (1.7-7.0); Neutrophils Percent Auto 71.2 % (42.0-72.0); Platelet Count* 247 K/uL (140-440); RDW Coefficient of Variation % 13.6 % (11.5-15.5); Red Blood Count 3.21 m/uL (4.00-5.20); White Blood Count* 10.44 K/uL (4.50-11.00)
[2024-01-19 06:27] LABS: Slide Review Reflex No
[2024-01-19] MEDS: BENZOCAINE/MENTHOL 1 EACH LOZENGE MUCOUS MEM ×2 (06:33→18:15)
[2024-01-19] MEDS: phenoL 1.4 % THROAT SPRAY 1 SPRAY MUCOUS MEM ×2 (06:33→20:43)
[2024-01-19 06:48] LABS: Chloride* 105 mmol/L (96-114); Sodium* 138 mmol/L (135-149)
[2024-01-19 06:51] LABS: Creatinine* 0.6 mg/dL (0.5-1.5); Est. Creatinine Clearance* 47.78; Estimated Glomerular Filt Rate 97 ml/min
[2024-01-19 06:52] LABS: Anion Gap 10 mEq/L (7-15); Blood Urea Nitrogen* 19 mg/dL (7-30); Calcium* 8.5 mg/dL (8.4-10.6); Carbon Dioxide* 23 mmol/L (20-32); Glucose* 90 mg/dL (60-115); Magnesium* 1.7 mg/dL (1.5-2.6)
--- NOTE | 2024-01-19 08:00 | PC.NURSE ---
END OF SHIFT NOTE: PT PLEASANT AND COOPERATIVE WITH CARES. NG IN PLACE AND PATENT WITH LIS. PT WITH MULTIPLE LOOSE STOOLS THIS SHIFT. JUAN DAVID TO RUQ DRAINING SEROUS OUTPUT. MIDLINE INCISION C/D/I. ABD BINDER IN PLACE. TELE READS NSR.
[2024-01-19] MEDS: PANTOPRAZOLE SODIUM 40 MG INJ IVP (08:31)
[2024-01-19] MEDS: carvediloL 6.25 MG TABLET 12.5 MG PO ×2 (08:45→20:43)
[2024-01-19] MEDS: LOSARTAN POTASSIUM 50 MG TABLET 100 MG PO (08:45)
[2024-01-19] MEDS: HYDROCORTISONE SOD SUCCINATE 50 MG/ML inj IVP (08:47)
[2024-01-19] MEDS: HYDROmorphone 0.5 mg/0.5 ml inj IVP ×5 (08:48→20:43)
--- NOTE | 2024-01-19 09:11 | P.IMPN_ITS ---
Progress Note: A&P Assessment and plan (1) Perforated gastric ulcer: Problem details: - repair with Dr. Arti Hoover of General surgery on 01/16/24 - reassuring small bowel follow through 01/18, NG removed and starting clear liquids, advance pending clinical course Status: Acute (2) Nonischemic nontraumatic myocardial injury: Problem details: - initial troponin 0.66 -->0.67 -->0.63 -->0.38 - no acute change on EKG, no angina or anginal equivalent symptoms. Likely myocardial ischemia due to acute illness/GI perforation - TTE ordered 01/15: Final Impressions: 1. Normal LV size, normal wall thickness, normal global systolic function with an estimated EF of 60 - 65%. 2. Right ventricular cavity size is normal, global systolic RV function is normal. 3. Normal diastolic function. 4. No significant valve disease detected. Status: Acute (3) ABLA (acute blood loss anemia): Problem details: - baseline Hgb 12-13, currently 9.6, consistent with operative blood loss/fluid resuscitation - no evidence of further bleeding, postoperative Hgb stable, outpatient f/u for monitoring Status: Acute (4) Systemic lupus erythematosus (SLE) in adult: Problem details: - home medications include CellCept 1000mg BID, hydroxychloroquine 200mg Qd, and Prednisone 5mg daily (recently decreased from 7.5mg daily) - received stress doses of hydrocortisone 100 mg IV q.8 hours x4 doses upon admission, continue 50mg Hydrocortisone IV daily postoperatively given NPO status - holding Cellcept and hydroxychloroquine postoperatively - Rheum: Dr. Freeman Lopez at [facility]. Reviewed with him by phone on 01/16; ok to hold CellCept/Plaquenil now, plan to restart upon d/c Status: Acute (5) Primary hypertension: Problem details: - on Carvedilol, Losartan, and Spironolactone as outpatient - intolerant of many IV options (cannot tolerate Metoprolol or Hydralazine) - taking oral Losartan and Carvedilol as of 01/17/24, restarting Spironolactone 01/19 - history of hypertensive urgency as recently as 3 months ago (hospitalized at [facility] October 2023). Currently has no headache or evidence of end organ damage Status: Acute (6) Peripheral vascular disease: Problem details: - s/p B carotid endarterectomies, B iliac stents, known LLE critical limb ischemia - was scheduled for an outpatient angiogram last week (this was cancelled 2/2 patient illness) - on ASA as outpatient, holding as of 01/14 given perforated gastric ulcer - sees Dr. Joseph of Vascular surgery Status: Acute (7) On prednisone therapy: Problem details: - daily, for SLE (prior to admission, was decreased from 7.5mg --> 5mg daily) - on IV hydrocortisone postoperatively, transitioning back to oral Prednisone on 01/19 Status: Acute (8) Pacemaker: Problem details: - placed October 2023 Status: Acute Plan - per above - possibly home tomorrow pending tolerance of diet Subjective Date Seen: 01/19/24 Interval history: Richa was admitted to the hospital on 01/13 for nausea, vomiting, and diarrhea. On hospital day 1, had significant increase in pain, repeat imaging revealed free air on repeat imaging, taken to OR urgently. She had an Ex Lap and gastric ulcer repair with Dr. Hoover of General Surgery on 01/15/24. Notable findings during stay: - troponin elevation (peak at 0.67) without CP, telemetry changes, or concerning EKG findings. Reassuring TTE 01/16/24 - covered with IV Hydrocortisone postoperatively given daily Prednisone use, transitioning back to oral Prednisone on 01/19 - reassuring small bowel follow through on 01/18, NG removed Richa is passing flatus and stool and is happy to be advancing her diet today. She has worked well with therapies and ambulating in her room without assistance. Labs stable/baseline, H Pylori pending. Exam Narrative: Exam Narrative: GEN: Alert and oriented, sitting up in bed comfortably HEENT: EOMIs bilaterally, no scleral icterus CV: RRR, No concerning murmurs, rubs, or gallops R: LCTA bilaterally without concerning wheezing, rales, or rhonchi Ab: Minimal drainage from JUAN DAVID, mild discomfort to palpation Ext: No concerning edema Skin: No concerning skin lesions or rashes on exposed skin Neuro: No focal deficits Psych: Appropriate, very excited about removing IV/NG and advancing diet Const: Vital Signs, click to edit/add: Vital Signs - 24 hr 01/18/24 15:00 01/18/24 15:00 01/18/24 15:00 Temperature 99.1 F Pulse Rate 87 Pulse Rate [Pulse Oximeter] 74 Respiratory Rate 16 16 Blood Pressure [Le ft Arm] Blood Pressure [Ri ght Arm] 168/72 H Pulse Oximetry 95 95 Oxygen Delivery Me thod Room Air Room Air 01/18/24 20:40 01/18/24 20:40 01/18/24 20:40 Temperature 98.6 F Pulse Rate 87 Pulse Rate [Pulse Oximeter] 86 86 Respiratory Rate 18 18 Blood Pressure [Le ft Arm] 211/94 H Blood Pressure [Ri ght Arm] Pulse Oximetry 95 Oxygen Delivery Me thod Room Air 01/18/24 20:40 01/19/24 03:15 01/19/24 07:00 Temperature 99.6 F Pulse Rate 78 Pulse Rate [Pulse Oximeter] 81 Respiratory Rate 18 16 Blood Pressure [Le ft Arm] Blood Pressure [Ri ght Arm] 189/82 H Pulse Oximetry 95 90 Oxygen Delivery Ar thod Room Air Room Air 01/19/24 07:00 01/19/24 07:00 Temperature 99.2 F Pulse Rate Pulse Rate [Pulse Oximeter] 77 Respiratory Rate 20 20 Blood Pressure [Le ft Arm] 199/93 H Blood Pressure [Ri ght Arm] 202/93 H Pulse Oximetry 91 91 Oxygen Delivery Me thod Room Air Room Air Labs Labs: Laboratory Results - last 24 hr 01/19/24 01/19/24 06:00 06:13 WBC 10.44 RBC 3.21 L Hgb 9.6 L Hct 29.5 L MCV 92 MCH 30 MCHC 33 RDW Coeff of Terrell 13.6 Plt Count 247 Neut % (Auto) 71.2 Lymph % (Auto) 13.2 L [place] % (Auto) 9.4 Eos % (Auto) 0.5 Baso % (Auto) 0.1 Neut # (Auto) 7.44 H Lymph # (Auto) 1.40 [place] # (Auto) 1.00 H Eos # (Auto) 0.05 Baso # (Auto) 0.01 Abs Immat Gran (auto) 0.58 H Imm/Tot Granulo (auto) 5.6 Sodium 138 Potassium 3.0 L Chloride 105 Carbon Dioxide 23 Anion Gap 10 BUN 19 Creatinine 0.6 Estimated Creat Clear 47.78 Estimated GFR 97 Glucose 90 Calcium 8.5 Magnesium 1.7
--- NOTE | 2024-01-19 10:00 | CRLHL7_ITS ---
For Patients: As a result of the Century Cures Act, medical imaging exams and procedure reports are released immediately into your electronic medical record. You may view this report before your referring provider. If you have questions, please contact your health care provider. INDICATION: Gastric ulcer repair. Evaluate for leak. FINDINGS: An upper GI study performed with Gastrografin shows contrast filling the stomach and proximal small bowel. No extravasation/leak of the contrast identified. IMPRESSION: No gastric leak identified. Dictated by Vinny Hung MD @ 01/19/2024 12:40:55 PM (Electronically Signed)
[2024-01-19 10:44] LABS: C.Difficile Negative (Negative); CDIFFEPI 027 PRESUMPTIVE NEGATIVE (Negative)
--- NOTE | 2024-01-19 10:58 | PM.GSPN ---
Subjective Subjective Date Seen: 01/19/24 Interval history: Patient is doing much better this morning. She has been passing gas and had multiple stools, have been more liquid. Denies any nausea. Has been ambulating the halls. Does want to go to rehab following this hospitalization. She feels overwhelmed with her many medical problems and overall still fatigued. Exam Narrative: Exam Narrative: General: Alert and oriented, no acute distress Respiratory: Equal breath rise bilaterally, maintained on room air HEENT: NG tube in place, minimal output CV: Regular rhythm rate, well perfused Abdomen: Soft, nontender to palpation. No guarding or rebound. Right upper quadrant drain in place minimal serous output. Steri-Strips on incision clean/dry/intact Const: Vital Signs, click to edit/add: Vital Signs - 24 hr 01/18/24 15:00 01/18/24 15:00 01/18/24 15:00 Temperature 99.1 F Pulse Rate 87 Pulse Rate [Pulse Oximeter] 74 Respiratory Rate 16 16 Blood Pressure [Le ft Arm] Blood Pressure [Ri ght Arm] 168/72 H Pulse Oximetry 95 95 Oxygen Delivery Me thod Room Air Room Air 01/18/24 20:40 01/18/24 20:40 01/18/24 20:40 Temperature 98.6 F Pulse Rate 87 Pulse Rate [Pulse Oximeter] 86 86 Respiratory Rate 18 18 Blood Pressure [Le ft Arm] 211/94 H Blood Pressure [Ri ght Arm] Pulse Oximetry 95 Oxygen Delivery Me thod Room Air 01/18/24 20:40 01/19/24 03:15 01/19/24 07:00 Temperature 99.6 F Pulse Rate 78 Pulse Rate [Pulse Oximeter] 81 Respiratory Rate 18 16 Blood Pressure [Le ft Arm] Blood Pressure [Ri ght Arm] 189/82 H Pulse Oximetry 95 90 Oxygen Delivery Me thod Room Air Room Air 01/19/24 07:00 01/19/24 07:00 Temperature 99.2 F Pulse Rate Pulse Rate [Pulse Oximeter] 77 Respiratory Rate 20 20 Blood Pressure [Le ft Arm] 199/93 H Blood Pressure [Ri ght Arm] 202/93 H Pulse Oximetry 91 91 Oxygen Delivery Me thod Room Air Room Air Labs/Imaging Labs Labs: WBC 10.4, hemoglobin 9.6. Imaging Imaging: Upper GI series, no evidence of leak. Progress Note:A&P Assessment and plan (1) Perforated gastric ulcer: Status: Acute Assessment and Plan: Patient is a 68-year-old female postop day 4 exploratory laparotomy with evidence of large perforated gastric ulcer. This was repaired primarily with omentum placed over the repair. A JUAN DAVID drain was left in place. Pathology demonstrated ulcerated tissue, no concern for malignancy. Repeat fluoro study with no evidence of extravasation. Patient has had return of bowel function. NG tube removed. Okay for clear liquid diet, advanced as tolerated. Will keep JUAN DAVID drain in place until patient is ready for discharge. -clear liquids, advanced as tolerated -JUAN DAVID to stay in place, will removed prior to discharge -continue IV antibiotics, recommend completing a 5 day course -continue PPI, patient should be on omeprazole 40 mg once daily at discharge. -test stool for H pylori -encourage ambulation -SCDs, okay for Lovenox for DVT prophylaxis All other cares per hospitalist.
[2024-01-19] MEDS: POTASSIUM BICARB 25 MEQ EFFERVESCENT TAB 50 MEQ PO (11:18)
[2024-01-19] MEDS: POTASSIUM CHLORIDE 10 MEQ CAPSULE ER 20 MEQ PO (12:41)
--- NOTE | 2024-01-19 13:06 | NUTR.NU ---
RDN with MD consult for advancing diet and help with meal planning. Patient is pod #4 for exploratory laparotomy with evidence of large perforated gastric ulcer. Patient had gas and bowel movements, now slowly advancing diet. She is currently on clear liquids and tolerating. RDN visited with patient whom requests assistance with meal planning moving forward. She avoids gluten and soy products. For the past few years, she has become nauseous when smelling to consume certain products such as dressings and cottage cheese. She reports her weight was low as 109 lbs a couple years ago, and that she has worked hard to get her weight to 120 lbs or more. RDN encouraged patient to consume clear liquids slowly. Informed patient that RDN will try to obtain some educational handouts of gluten-free and soy-free diet that would be appropriate for patient. Patient expressed her gratitude regarding this. RDN will attempt to visit tomorrow and provide nutrition education once appropriate handouts are obtained.
--- NOTE | 2024-01-19 15:27 | PC.NURSE ---
End of shift [id number]: Pt A&Ox4. NG tube removed. Pt tolerating advanced diet well, currently on clear liquids. Pt denies nausea. Pts IV leaked just before IV ABX, not given per MD order. IV removed. Oral ABX will now be in place per MD orders. 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 Relief noted. Indep with W. Pt walked throughout the halls, to and from bathroom. Pt continent of the bladder and bowels. Pt had a large loose stool this AM. Midline incision CDI. Bowels active. JUAN DAVID to RUQ patent and draining serous output. Pt appears resting comfortably with family at bedside, call light within reach. ?
--- NOTE | 2024-01-19 16:09 | CRLHL7_ITS ---
For Patients: As a result of the Century Cures Act, medical imaging exams and procedure reports are released immediately into your electronic medical record. You may view this report before your referring provider. If you have questions, please contact your health care provider. INDICATION: Acute pain. TECHNIQUE: CT abdomen and pelvis acquired with 66 cc Isovue 370 IV contrast. COMPARISON: CT abdomen dated 01/15/2024. FINDINGS: Lower chest: Small bilateral pleural effusions with underlying atelectasis, increased in size from the prior. Liver: Unremarkable. Normal in size and attenuation. No suspicious masses. Gallbladder and bile ducts: Unremarkable. No stones or inflammation. No biliary dilatation. Pancreas: Unremarkable. No mass or inflammation. Spleen: Unremarkable. Normal in size. No masses. Adrenal glands: Unremarkable. No nodules. Kidneys: No acute changes. As before, the right kidney is larger than the left. Left renal cortical subcentimeter hypodensity is too small to characterize. Mild right hydroureter, likely secondary to the distended bladder. No renal or ureteral calculi. GI tract: Oral contrast extends throughout the bowel into the rectum. There is diffuse gaseous distention of the small and large bowel. No focal caliber transition point identified. Vasculature: Abdominal aorta is normal in caliber. Mesenteric arteries are patent. Lymph nodes: No lymphadenopathy. Peritoneum/Abdominal Wall: Right approach abdominal catheter tip terminates along the left pericolic gutter. No evident residual significant free air or free fluid. Diffuse body wall edema, increased relative to prior. Pelvis: Unremarkable. Bones: Unremarkable for age. IMPRESSION: 1. Diffuse gaseous distention of the small and large bowel. Oral contrast extends all the way into the rectum, indicating that there is no high-grade bowel obstruction. In the setting of recent surgery, these findings are most suggestive of a postoperative ileus. 2. Otherwise, no evident acute abnormalities in the abdomen or pelvis. 3. Interval increase in size of the partially visualized small bilateral pleural effusions. Please note that all CT scans at this facility use dose modulation, iterative reconstruction, and/or weight-based dosing when appropriate to reduce radiation dose to as low as reasonably achievable. Dictated by Gurpreet Dotson MD @ 01/19/2024 7:48:57 PM (Electronically Signed)
--- NOTE | 2024-01-19 19:54 | PC.NURSE ---
[id number]: Pt alert and oriented. Had a sudden onset of extreme 9/10 pain in her abdomen. Emptied JUAN DAVID drained and redressed to check site. MD updated and in to assess pt. Saline lock placed to right wrist, IV Dilaudid administered, MD ordered to restart previous IV fluid order and made NPO. Additional larger IV placed in the left AC by anesthesia for stat abdominal CT. Denies nausea, continues to have abdominal pain. Pt had 4 liquid brown stools mixed with urine in bedpan as pt states she is unable to sit on commode due to pain.?
[2024-01-19 20:11] LABS: HCO3 VBG 27 mmol/L (21-28); Ionized Calcium* 1.07 mmol/L (1.11-1.30); Lactate* 0.9 mmol/L (0.5-1.9); PCO2 VBG 35 mmHG (40-50); pH VBG 7.503 (7.32-7.43)
[2024-01-19 20:15] LABS: Basophils Absolute Auto 0.01 K/uL (0.00-0.30); Basophils Percent Auto 0.1 % (0.0-3.0); Eosinophils Absolute Auto 0.02 K/uL (0.00-0.50); Eosinophils Percent Auto 0.2 % (0.0-7.0); Hematocrit 30.4 % (33.0-51.0); Immature Granulocytes Abs Auto 0.59 K/uL (0.00-0.30); Lymphocytes Percent Auto 13.2 % (20-44); Mean Corpuscular HGB Conc 33 gm/dL (32-36); Mean Corpuscular Hemoglobin 30 pg (26-34); Mean Corpuscular Volume 90 fL (80-100); Monocytes Percent Auto 9.8 % (0.0-11.0); Neutrophils Absolute Auto 6.96 K/uL (1.7-7.0); Neutrophils Percent Auto 70.7 % (42.0-72.0); Platelet Count* 252 K/uL (140-440); RDW Coefficient of Variation % 13.2 % (11.5-15.5); Red Blood Count 3.38 m/uL (4.00-5.20); White Blood Count* 9.84 K/uL (4.50-11.00)
[2024-01-19 20:18] LABS: Slide Review Reflex No
[2024-01-19 20:28] LABS: Chloride* 99 mmol/L (96-114)
[2024-01-19 20:29] LABS: Sodium* 136 mmol/L (135-149)
[2024-01-19 20:31] LABS: Alkaline Phosphatase* 43 U/L (40-150); Aspartate Amino Transferase* 45 U/L (12-35); Bilirubin Total* 0.4 mg/dL (0.1-1.5); Blood Urea Nitrogen* 15 mg/dL (7-30); Carbon Dioxide* 26 mmol/L (20-32); Creatinine* 0.5 mg/dL (0.5-1.5); Est. Creatinine Clearance* 47.78; Estimated Glomerular Filt Rate 101 ml/min; Lipase* 359 U/L (23-300); Total Protein* 5.3 g/dL (6.0-8.3)
[2024-01-19 20:32] LABS: Alanine Aminotransferase* 20 U/L (4-35); Calcium* 8.2 mg/dL (8.4-10.6); Glucose* 93 mg/dL (60-115); Magnesium* 1.5 mg/dL (1.5-2.6)
[2024-01-19 20:34] LABS: C Reactive Protein* 7.2 mg/dL (0.5-1.0)
[2024-01-19 20:36] LABS: Potassium* 2.5 mmol/L (3.6-5.1)
[2024-01-19 20:37] LABS: Anion Gap 11 mEq/L (7-15)
[2024-01-19 20:43] LABS: Troponin I* 0.03 ng/mL (0.01-0.04)
[2024-01-19] MEDS: carvediloL 25 MG TABLET 12.5 MG PO (22:07)
[2024-01-19] MEDS: POTASSIUM CHLORIDE 10 MEQ/100 ML PIGGYBACK 100 MEQ IVPB ×2 (22:08→23:10)
[2024-01-20] MEDS: POTASSIUM CHLORIDE 10 MEQ/100 ML PIGGYBACK 100 MEQ IVPB ×2 (00:03→01:05)
[2024-01-20] MEDS: BENZOCAINE/MENTHOL 1 EACH LOZENGE MUCOUS MEM (00:07)
[2024-01-20] MEDS: LACTATED RINGERS 1000 ML 1,000 ML 125 ML IV (01:06)
[2024-01-20] MEDS: TRAMADOL HCL 50 MG TABLET PO (02:22)
[2024-01-20 02:45] VITALS: BP 167/75; PULSE 69; RESP 16; TEMP 37.2; O2SAT 94
--- NOTE | 2024-01-20 06:04 | PC.NURSE ---
END OF SHIFT NOTE: PT A&O. DENIES CP, SOB, N/V. AMBULATES A1 WITH WALKER. VSS ON RA; SBP HYPERTENSIVE; AFEBRILE. MIDLINE INCISION CDI. BS ACTIVE x4. STOOLS REMAIN LOOSE. JUAN DAVID TO RUQ PATENT AND DRAINING SEROUS OUTPUT. PT REPORTS PAIN TO ABD 7-8/10 WITH RELIEF FROM ACTIVE ICE AND PRN PAIN MEDICATION (SEE EMAR). PT BURPING AND PASSING GAS. TELE NSR. PT REPORTS FEELING MUCH BETTER THIS MORNING AFTER A GOOD NIGHTS SLEEP. CALL LIGHT WITHIN PT?S REACH.?
[2024-01-20 07:00] VITALS: PULSE 68; RESP 18; O2SAT 98
[2024-01-20 07:00] LABS: Basophils Absolute Auto 0.02 K/uL (0.00-0.30); Basophils Percent Auto 0.2 % (0.0-3.0); Eosinophils Absolute Auto 0.07 K/uL (0.00-0.50); Eosinophils Percent Auto 0.6 % (0.0-7.0); Hemoglobin* 9.7 gm/dL (12.0-16.0); Immature Granulocytes Pct Auto 5.5 %; Lymphocytes Percent Auto 15.6 % (20-44); Mean Corpuscular HGB Conc 32 gm/dL (32-36); Mean Corpuscular Hemoglobin 29 pg (26-34); Mean Corpuscular Volume 91 fL (80-100); Monocytes Percent Auto 9.9 % (0.0-11.0); Neutrophils Percent Auto 68.2 % (42.0-72.0); Platelet Count* 278 K/uL (140-440); RDW Coefficient of Variation % 13.1 % (11.5-15.5); White Blood Count* 10.99 K/uL (4.50-11.00)
[2024-01-20 07:18] LABS: Chloride* 100 mmol/L (96-114); Sodium* 134 mmol/L (135-149)
[2024-01-20 07:21] LABS: Anion Gap 8 mEq/L (7-15); Blood Urea Nitrogen* 15 mg/dL (7-30); Carbon Dioxide* 26 mmol/L (20-32); Creatinine* 0.5 mg/dL (0.5-1.5); Est. Creatinine Clearance* 47.78; Estimated Glomerular Filt Rate 101 ml/min; Glucose* 87 mg/dL (60-115)
[2024-01-20 07:22] LABS: Calcium* 8.2 mg/dL (8.4-10.6)
[2024-01-20 07:23] LABS: Slide Review Reflex Yes
[2024-01-20 07:31] LABS: Potassium* 2.9 mmol/L (3.6-5.1)
[2024-01-20 08:05] LABS: Slide Review Acceptable Review (Acceptable)
[2024-01-20] MEDS: predniSONE 5 MG TABLET 7.5 MG PO (08:40)
[2024-01-20] MEDS: LOSARTAN POTASSIUM 50 MG TABLET 100 MG PO (08:43)
[2024-01-20] MEDS: POTASSIUM CHLORIDE 10 MEQ CAPSULE ER 40 MEQ PO (08:44)
[2024-01-20] MEDS: carvediloL 6.25 MG TABLET 25 MG PO (08:45)
[2024-01-20] MEDS: PANTOPRAZOLE SODIUM 40 MG INJ IVP (08:45)
[2024-01-20 08:53] VITALS: BP 178/76; PULSE 64; RESP 18; TEMP 36.4; O2SAT 96
[2024-01-20 09:39] LABS: H pylori Ag Stool* POSITIVE (Negative)
--- NOTE | 2024-01-20 10:11 | PM.GSPN ---
Subjective Subjective Date Seen: 01/20/24 Interval history: Nicolle is doing well. She had crampy abdominal pain yesterday and had a repeat CT scan. The CT scan showed abundance of air and contrast throughout her small and large intestine. There was contrast in the rectum. Patient states that today her abdominal pain is significantly better. She is passing gas and has had multiple bowel movements. She has not eaten much but would like to try more food today. She ambulated yesterday twice. Exam Narrative: Exam Narrative: Abdomen is soft, not distended, tender to palpation on the left side, no peritoneal signs, midline laparotomy incision is clean with dry steroids. JUAN DAVID drain is in place with clear serosanguineous fluid. Const: Vital Signs, click to edit/add: Vital Signs - 24 hr 01/19/24 11:00 01/19/24 15:00 01/19/24 15:00 Temperature 98.1 F Pulse Rate Pulse Rate [Pulse Oximeter] 75 77 Respiratory Rate 16 18 18 Blood Pressure [Le ft Arm] 181/79 H Blood Pressure [Ri ght Arm] 177/93 H Pulse Oximetry 96 95 Oxygen Delivery Me thod Room Air Room Air 01/19/24 15:47 01/19/24 20:30 01/19/24 20:30 Temperature 98.3 F 99.1 F Pulse Rate 77 Pulse Rate [Pulse Oximeter] 77 80 Respiratory Rate 18 16 Blood Pressure [Le ft Arm] Blood Pressure [Ri ght Arm] 210/97 H 201/96 H Pulse Oximetry 95 94 Oxygen Delivery Me thod Room Air Room Air 01/19/24 20:30 01/19/24 20:30 01/19/24 22:30 Temperature 98.4 F Pulse Rate Pulse Rate [Pulse Oximeter] 80 73 Respiratory Rate 16 16 14 Blood Pressure [Le ft Arm] Blood Pressure [Ri ght Arm] 190/81 H Pulse Oximetry 94 93 Oxygen Delivery Me thod Room Air Room Air 01/20/24 02:45 01/20/24 08:53 Temperature 98.9 F 97.5 F L Pulse Rate Pulse Rate [Pulse Oximeter] 69 64 Respiratory Rate 16 18 Blood Pressure [Le ft Arm] Blood Pressure [Ri ght Arm] 167/75 H 178/76 H Pulse Oximetry 94 96 Oxygen Delivery Me thod Room Air Room Air Progress Note:A&P Assessment and plan (1) Perforated gastric ulcer: Status: Acute Plan 68-year-old female s/p exploratory laparotomy with repair of perforated gastric ulcer on 01/16/2024. Patient is recovering well. Her pain yesterday was most likely related to a lot of contrast in her intestine. Her pain is better controlled today. We will advance her diet to regular and will add ensures to improve her nutritional status. Patient is getting potassium replacement for hypokalemia. I discussed with her to eat more potassium containing foods. I will leave the JUAN DAVID drain in place. JUAN DAVID drain has serosanguineous fluid in it and putting out large amounts of volume most likely due to patient's overall volume overload. Patient will see Dr. Hoover next week and the JUAN DAVID drain will most likely be removed.
--- NOTE | 2024-01-20 10:33 | NUTR.NU ---
Addendum entered and electronically signed by Diandra Suarez RD 01/20/24 10:38: Also recommended patient consume small, frequent meals about 4-6 times daily as this may be better tolerated. Recommended she include a protein supplement to help meet her needs, she likes [employer]. Original Note: RDN with nutrition follow-up with patient related to meal ideas after surgery. RDN visited with patient and provided multiple handouts related to multiple food avoidances including soy and gluten containing foods. Reviewed multiple handouts with patient and provided meal and snack ideas. Highly recommended patient limit fiber to 10 grams or less per day for about 2 weeks after discharge. Reviewed low fiber food options. Also provided patient with a website to visit with allergy-friendly recipes from a dietitian. Handouts provided to support discussion. RDN's contact information provided and encouraged patient to call with questions. RDN to follow up as needed.
[2024-01-20 11:00] VITALS: BP 155/79; PULSE 68; RESP 18; TEMP 36.6; O2SAT 98
[2024-01-20] MEDS: SPIRONOLACTONE 25 MG TABLET PO (12:39)
--- NOTE | 2024-01-20 13:52 | P.DS_ITS ---
DS: Providers Provider Date Seen: 01/20/24 Date of admission: 01/14/24 19:03 Primary care physician: Dalton Esqueda MD Admitting Clinician: Peng Bryan MD Consults: OT, PT, General Surgery, Nutrition Attending Physician on discharge: Rosa Chen MD Date of Discharge: 01/20/24 DS: Diagnosis Discharge Diagnosis (1) Perforated gastric ulcer: Status: Acute Problem details: - repair with Dr. Arti Hoover of General surgery on 01/16/24 - reassuring small bowel follow through 01/18, NG removed and started clear liquids, advanced diet well (2) ABLA (acute blood loss anemia): Status: Acute Problem details: - baseline Hgb 12-13, Hgb 9.7 upon discharge, consistent with operative blood loss/fluid resuscitation - no evidence of further bleeding, postoperative Hgb stable, outpatient f/u for monitoring (3) Nonischemic nontraumatic myocardial injury: Status: Acute Problem details: - initial troponin 0.66 -->0.67 -->0.63 -->0.38 - no acute change on EKG, no angina or anginal equivalent symptoms. Likely myocardial ischemia due to acute illness/GI perforation - TTE ordered 01/15: Final Impressions: 1. Normal LV size, normal wall thickness, normal global systolic function with an estimated EF of 60 - 65%. 2. Right ventricular cavity size is normal, global systolic RV function is normal. 3. Normal diastolic function. 4. No significant valve disease detected. (4) On prednisone therapy: Status: Acute Problem details: - daily, for SLE (prior to admission, was decreased from 7.5mg --> 5mg daily) - on IV hydrocortisone postoperatively, transitioning back to oral Prednisone (7.5mg/day) on 01/19 (5) Systemic lupus erythematosus (SLE) in adult: Status: Acute Problem details: - home medications include CellCept 1000mg BID, hydroxychloroquine 200mg Qd, and Prednisone 5mg daily (recently decreased from 7.5mg daily) - received stress doses of hydrocortisone 100 mg IV q.8 hours x4 doses upon admission, continue 50mg Hydrocortisone IV daily postoperatively given NPO status - holding Cellcept and hydroxychloroquine postoperatively - Rheum: Dr. Freeman Lopez at [facility]. Reviewed with him by phone on 01/16; ok to hold CellCept/Plaquenil now, restarting upon d/c (6) Primary hypertension: Status: Acute Problem details: - on Carvedilol, Losartan, and Spironolactone as outpatient - intolerant of many IV options (cannot tolerate Metoprolol or Hydralazine) - taking oral Losartan and Carvedilol as of 01/17/24, restarting Spironolactone 01/19 - history of hypertensive urgency as recently as 3 months ago (hospitalized at [facility] October 2023), no symptoms of urgent HTN during stay (7) Peripheral vascular disease: Status: Acute Problem details: - s/p B carotid endarterectomies, B iliac stents, known LLE critical limb ischemia - was scheduled for an outpatient angiogram last week (this was cancelled 2/2 patient illness) - on ASA as outpatient, holding as of 01/14 given perforated gastric ulcer - sees Dr. Joseph of Vascular surgery DS: Summary Hospital Course Hospital Course: Richa was admitted to the hospital on 01/13 for nausea, vomiting, and diarrhea. On hospital day 1, had significant increase in pain, repeat imaging revealed free air on repeat imaging, taken to OR urgently. She had an Ex Lap and gastric ulcer repair with Dr. Hoover of General Surgery on 01/15/24. Notable findings during stay: - troponin elevation (peak at 0.67) without CP, telemetry changes, or concerning EKG findings. Reassuring TTE 01/16/24 - covered with IV Hydrocortisone postoperatively given daily Prednisone use, transitioning back to oral Prednisone on 01/19 - reassuring small bowel follow through on 01/18, NG removed - positive H Pylori; discharging on PPI, Clarithromycin, Flagyl Advanced diet on 01/18 and 01/19, medically appropriate for d/c home. JUAN DAVID drain staying in upon discharge after discussion with Dr. Liu of General Surgery, will remove at postop visit. Status at Discharge Functional status at discharge: uses cane/walker Overall status at discharge: patient is progressing back to baseline Time Spent with Patient Time attestation: Total time spent providing and/or coordinating discharge services: Time spent: Greater than 30 minutes Specific discharge activities: Medication reconciliation, collaboration with care team/General Surgery Exam Narrative: Exam Narrative: GEN: Alert and oriented, answering questions appropriately HEENT: EOMIs bilaterally, no scleral icterus CV: RRR, + systolic murmur without radiation or concerning features R: LCTA bilaterally without concerning wheezing, air movement adequate Ext: Thin, decreased pulse left lower extremity, consistent with known critical limb ischemia Skin: No concerning skin lesions or rashes on exposed skin Neuro: No focal deficits Psych: Appropriate Const: Vital Signs, click to edit/add: Vital Signs - 24 hr 01/19/24 15:00 01/19/24 15:00 01/19/24 15:47 Temperature 98.3 F Pulse Rate Pulse Rate [Pulse Oximeter] 77 77 Respiratory Rate 18 18 18 Blood Pressure [Ri ght Arm] 210/97 H Pulse Oximetry 95 95 Oxygen Delivery Me thod Room Air Room Air 01/19/24 20:30 01/19/24 20:30 01/19/24 20:30 Temperature 99.1 F Pulse Rate 77 Pulse Rate [Pulse Oximeter] 80 80 Respiratory Rate 16 16 Blood Pressure [Ri ght Arm] 201/96 H Pulse Oximetry 94 Oxygen Delivery Me thod Room Air 01/19/24 20:30 01/19/24 22:30 01/20/24 02:45 Temperature 98.4 F 98.9 F Pulse Rate Pulse Rate [Pulse Oximeter] 73 69 Respiratory Rate 16 14 16 Blood Pressure [Ri ght Arm] 190/81 H 167/75 H Pulse Oximetry 94 93 94 Oxygen Delivery Me thod Room Air Room Air Room Air 01/20/24 08:53 01/20/24 11:00 Temperature 97.5 F L 97.8 F Pulse Rate Pulse Rate [Pulse Oximeter] 64 68 Respiratory Rate 18 18 Blood Pressure [Ri ght Arm] 178/76 H 155/79 H Pulse Oximetry 96 98 Oxygen Delivery Me thod Room Air Room Air DS: Data Data Completed and Pending Labs on day of discharge: Labs from last 24 hours 01/20/24 01/19/24 01/19/24 06:05 20:07 07:50 WBC 10.99 9.84 RBC 3.30 L 3.38 L Hgb 9.7 L 10.0 L Hct 30.0 L 30.4 L MCV 91 90 MCH 29 30 MCHC 32 33 RDW Coeff of Terrell 13.1 13.2 Plt Count 278 252 Neut % (Auto) 68.2 70.7 Lymph % (Auto) 15.6 L 13.2 L Potter % (Auto) 9.9 9.8 Eos % (Auto) 0.6 0.2 Baso % (Auto) 0.2 0.1 Neut # (Auto) 7.50 H 6.96 Lymph # (Auto) 1.70 1.30 Potter # (Auto) 1.10 H 1.00 H Eos # (Auto) 0.07 0.02 Baso # (Auto) 0.02 0.01 Abs Immat Gran (auto) 0.60 H 0.59 H Imm/Tot Granulo (auto) 5.5 6.0 Diff Slide Review Acceptable Review VBG pH 7.503 H VBG pCO2 35 L VBG pO2 54.0 H VBG HCO3 27 Sodium 134 L 136 Potassium 2.9 L* 2.5 L* Chloride 100 99 Carbon Dioxide 26 26 Anion Gap 8 11 BUN 15 15 Creatinine 0.5 0.5 Estimated Creat Clear 47.78 47.78 Estimated GFR 101 101 Glucose 87 93 Lactate 0.9 Calcium 8.2 L 8.2 L Ionized Calcium Sb 1.07 L Magnesium 1.5 Total Bilirubin 0.4 AST 45 H ALT 20 Alkaline Phosphatase 43 Troponin I 0.03 C-Reactive Protein 7.2 H Total Protein 5.3 L Albumin 3.0 L Lipase 359 H Stool H. pylori Ag POSITIVE A Discharge Plan Discharge Disposition: Home, Self-Care Date of Admission: 01/14/24 19:03 Attending Provider on Discharge: Rosa Chen Consulting Providers: Arti Hoover Primary Care Provider: Dalton Esqueda Condition: Improved Anticipated Discharge Date/Time: 01/20/24 13:00 Discharge Medications: New prednisone 5 mg Tablet 7.5 mg PO DAILYWM Qty: 20 0RF oxycodone 5 mg Tablet 5 - 10 mg PO Q6H PRN (Reason: Pain) Qty: 20 0RF clarithromycin 500 mg tablet 500 mg PO BID 14 Days Qty: 28 0RF metronidazole 500 mg tablet 500 mg PO Q8H 14 Days Qty: 42 0RF Continued Praluent Pen 75 mg/mL pen injector 75 mg subcut Q2W Patient Comments: INJECT 75MG SUBCUTANEOUSLY EVERY 2 WEEKS omeprazole 40 mg capsule,delayed release(DR/EC) 40 mg PO DAILY alendronate [Fosamax] 70 mg tablet 70 mg PO QWEEK naltrexone 1.5 mg capsule 5.5 mg PO DAILY hydroxychloroquine [Plaquenil] 200 mg tablet 200 mg PO DAILY spironolactone 25 mg tablet 25 mg PO DAILY losartan 100 mg tablet 100 mg PO DAILY acetaminophen [Tylenol Arthritis Pain] 650 mg tablet extended release 1,300 mg PO Q8H PRN ergocalciferol (vitamin D2) 1,000 unit capsule 2,000 unit PO DAILY amoxicillin 500 mg capsule 2,000 mg PO ONCE Qty: 16 0RF carvedilol 12.5 mg tablet 12.5 mg PO BID Medical Cannabis 10 mg capsule 10 mg PO Q12H magnesium oxide 400 mg (241.3 mg magnesium) tablet 400 mg PO BID CBD Oil sublingual aspirin [Aspirin Childrens] 81 mg tablet,chewable 81 mg PO DAILY mycophenolate mofetil 500 mg tablet 1,000 mg PO BID Patient Comments: TAKE ONE TABLET BY MOUTH TWICE A DAY ezetimibe 10 mg tablet 10 mg PO DAILY Patient Comments: TAKE ONE TABLET BY MOUTH EVERY DAY ondansetron HCl 4 mg tablet 4 mg PO Q6H Qty: 20 0RF meloxicam 15 mg tablet 15 mg PO DAILY Discontinued prednisone 2.5 mg tablet 7.5 mg PO DAILY Discharge Orders: Discharge Order (Routine); Ordered 01/20/24 Ordered By: Rosa Chen Patient Education: Prednisone (By mouth), Metronidazole (By mouth), Clarithromycin (By mouth), Oxycodone, Rapid Release (By mouth), Helicobacter Pylori (ED) Additional Instructions: Please teach the patient JUAN DAVID drain cares. Please record drain output every time your empty the drain. No swimming for 2 weeks. Your H Pylori was positive (this is a bacteria that causes ulcers) - antibiotics at your pharmacy, also keep taking your Omeprazole daily. Good idea to add in a PROBIOTIC daily too to help with your appetite and looser stools Restart all home medications tomorrow (Back to 7.5mg of Prednisone daily given recent surgery). See your Field Interviewer and Vascular surgery team within a few weeks for followup. Activity Level: No strenuous activity Follow Up Appointments: Arti Hoover MD [Staff Physician] - 01/26/24 1:15 pm (Follow up at [facility] ) Dalton Esqueda MD [Primary Care Provider] - 10/07/24 8:00 am (Follow Up appointment scheduled at [facility].) Forms: [employer] Info Instructions
[2024-01-20 15:00] VITALS: RESP 18; O2SAT 96
--- NOTE | 2024-01-20 18:16 | PC.NURSE ---
shift note: Reviewed JUAN DAVID: care and emptying. pt demonstrated steps of JUAN DAVID care, emptying and recording output. IV dc'd intact. Reviewed dc instructions and copies sent with pt at [place]. taught JUAN DAVID site care and wound care. 4x4's and paper tape sent with pt at [facility]. Reviewed s/s of infection at surgical site. Home medications sent with pt at [place]. Reviewed belongings prior to dc.
== END 2024-01-20 17:15 | disposition home or self-care (01) | DRG 327 ==
LOC: ED 13:34 → MEDSURG 16:22
PROVIDERS: Family Medicine; Physician Assistant; Surgery; Admitting Provider Internal Medicine; Emergency Provider Family Medicine; PCP Family Medicine; Visit Provider Internal Medicine
PROC: 0DQ60ZZ Repair Stomach, Open Approach (ICD-10-PCS; principal; 2024-01-15 11:45)
DX: K25.1 Acute gastric ulcer with perforation (principal); D62 Acute posthemorrhagic anemia; E27.2 Addisonian crisis; I5A Non-ischemic myocardial injury (non-traumatic); I24.9 Acute ischemic heart disease, unspecified; G89.18 Other acute postprocedural pain; M32.9 Systemic lupus erythematosus, unspecified; M35.00 Sjogren syndrome, unspecified; I10 Essential (primary) hypertension; Z95.0 Presence of cardiac pacemaker; J44.9 Chronic obstructive pulmonary disease, unspecified; Z79.52 Long term (current) use of systemic steroids; I70.222 Atherosclerosis of native arteries of extremities with rest pain, left leg; B96.81 Helicobacter pylori [H. pylori] as the cause of diseases classified elsewhere; R10.11 Right upper quadrant pain; E87.6 Hypokalemia; E78.2 Mixed hyperlipidemia; M47.817 Spondylosis without myelopathy or radiculopathy, lumbosacral region; G47.33 Obstructive sleep apnea (adult) (pediatric); E03.9 Hypothyroidism, unspecified; Z85.828 Personal history of other malignant neoplasm of skin; F41.1 Generalized anxiety disorder; I67.1 Cerebral aneurysm, nonruptured; I65.23 Occlusion and stenosis of bilateral carotid arteries; F43.21 Adjustment disorder with depressed mood; Z95.820 Peripheral vascular angioplasty status with implants and grafts; Z95.828 Presence of other vascular implants and grafts; Z90.710 Acquired absence of both cervix and uterus
CPT/HCPCS: 00790; 36415; 64488; 71275; 74018; 74177; 74240; 76705; 76942; 80048; 80053; 81001; 82330; 82565; 82803; 83605; 83690; 83735; 84100; 84484; 85025; 86140; 87338; 87493; 87635; 88305; 93005; 93306; 97116; 97162; 97166; 97530; 97535; 99140; 99284; 99285; A9270; C9290; J0330; J0613; J0665; J0743; J1100; J1170; J1720; J1885; J2060; J2250; J2270; J2371; J2405; J2470; J2704; J3475; J3480; J3490; J7030; J7050; J7120; J7512; Q9963; Q9967

== ENCOUNTER 2024-01-30 08:28 | Outpatient (CLI) | payer MEDICARE, BC, SELFPAY ==
--- OUTSIDE RECORDS SUMMARY | 2024-01-30 08:32 | XMS_ITS | Encounter Summary ---
Author Organization [employer] Address [address] [place] [address] Care Team Providers Care Diesel Service Technician Name Role Phone Dalton Esqueda MD Primary Care Provider [phone] Reason for Visit * Reason Comments Follow-up Encounter Details Date Type Department Care Team (Late st Contact Info) Description 01/06/2024 1:30 PM CDT [facility] [address] Cardiology [address] [place] [address] Wilfredo Howell III, MD [address] [place], [place] [phone] Hypertension, unspecified type (HRC) (Primary Dx); SSS (sick sinus syndrome) (HRC); Cardiac pacemaker in situ; PAD (peripheral artery disease) (HRC); Mixed hyperlipidemia (HRC) Social History Tobacco Use Types Packs/Day Years Used Date Smoking Tobacco: Former Cigarettes Smokeless Tobacco: Never Alcohol Use Standard Drinks/Week Comments Not Currently 0 (1 standard drink = 0.6 oz pur e alcohol) [facility] Utilities Answer Date Recorded In the past 12 months has th e electric, gas, oil, or water [employer] threatened to shut off services in your [...] permanent pacemaker implant. Richa was admitted to [facility] in October of this year. [...] process of scheduling a peripheral angiogram at [facility]. She was unable to tolerate the addition [...] every week. Take 30 minutes before first gmwu-rxahu-togxjoaeke on mornings. Avoid lying down for 30 [...] Take by mouth daily. ProOmega Curcumin by [employer]: Take 3 capsules by mouth daily ezetimibe [...] (165.1 cm) Wt 132 lb 3.2 oz (15351 g) BMI 22.00 kg/m?? Estimated body mass index is 22 kg/m?? as calculated from the following: Height as of this encounter: 5' 5 (165.1 cm). Weight as of this encounter: 132 lb 3.2 oz (64239 g). GEN- patient awake alert and conversant [...] medical records, cardiac tests, and time spent enke-sb-lais with patient. documented in this encounter Plan of Treatment Upcoming Encounters Date Type Department Care Team (Late st Contact Info) Description 03/06/2024 1:00 PM POSTAL SERVICE CLERK Appointment [facility] [address] Electrophysiology [address] [place] [phone] 03/14/2024 2:00 PM POSTAL SERVICE CLERK Appointment [facility] Neurosurgery/Ortho Spine [address] [place] [address]. [place] [address] Brandon Kessler MD [address] [place] [address] 03/20/2024 11:15 AM POSTAL SERVICE CLERK Appointment Rheumatology at [facility] [place] [address] [address] [address] [place] [address] Desilet, Freeman W, DO [address] [place], [place] [phone] documented as of this encounter Visit Diagnoses Diagnosis Hypertension, unspecified type (HRC)- Primary SSS (sick sinus syndrome) (HRC) Sinoatrial node dysfunction Cardiac pacemaker in situ PAD (peripheral artery disease) (HRC) Unspecified disorders of arteries and arterioles Mixed hyperlipidemia (HRC) Mixed hyperlipidemia documented in this encounter Care Teams Diesel Service Technician Relationship Specialty Start Date End Date Dalton Esqueda MD [address] [place] [address] PCP - General Family Practice 06/23/23 documented as of this encounter
--- OUTSIDE RECORDS SUMMARY | 2024-01-30 08:32 | XMS_ITS | Encounter Summary ---
Author Organization [employer] Address [address] [place] [address] Care Team Providers Care Socket Puller Name Role Phone Dalton Esqueda MD Primary Care Provider [phone] Reason for Visit * Reason Comments Other The following lab te st(s) utpcr are unable to be performed and have been cancelled. Please reorder the test(s) and contact the patient if still clinically indicated.Terri Galeana 12/22/2023, 4:49 PM Encounter Details Date Type Department Care Team (Late st Contact Info) Description 12/22/2023 Telephone [place] [address] [place] [address] Desilet, Freeman W, DO [address] [place] [address] Other (The following lab test(s) [...] drink = 0.6 oz pur e alcohol) [facility] Utilities Answer Date Recorded In the past 12 months has [employer], [employer], or [employer] threatened to shut off services in your [...] st Contact Info) Description 03/06/2024 1:00 PM SEAT PACK INSPECTOR Appointment [facility] [address] Electrophysiology [address] [place] [phone] 03/14/2024 2:00 PM SEAT PACK INSPECTOR Appointment [facility] Neurosurgery/Ortho Spine [address] [facility] [place] [address] Brandon Kessler MD [address] [place] [phone] 03/20/2024 11:15 AM SEAT PACK INSPECTOR Appointment Rheumatology at [facility] and [facility] [place] [address] [address] [address] [place] [address] Desilet, Luke W, DO [address] [place] [address] documented as of this encounter Visit Diagnoses Not on filedocumented in this encounter Care Teams Socket Puller Relationship Specialty Start Date End Date Dalton Esqueda MD [address] [place] [address] PCP - General Family Practice 06/23/23 documented as of this encounter
--- OUTSIDE RECORDS SUMMARY | 2024-01-30 08:32 | XMS_ITS | Encounter Summary ---
Author Organization [employer] Address [address] [place] [address] Care Team Providers Care Blender Operator Name Role Phone Dalton Esqueda MD Primary Care Provider [phone] Reason for Visit * Reason Comments Follow-up Encounter Details Date Type Department Care Team (Late st Contact Info) Description 01/11/2024 Telephone Rheumatology at [place] [address] [place] [address]. [place] [address] DesileFreeman mora, DO [address] [place] [phone] Follow-up Social History Tobacco Use Types Packs/Day Years Used Date Smoking Tobacco: Former Cigarettes Smokeless Tobacco: Never Alcohol Use Standard Drinks/Week Comments Not Currently 0 (1 standard drink = 0.6 oz pur e alcohol) [facility] Utilities Answer Date Recorded In the [...] note from 12/22/23 was faxed today to [facility] ([facility]) at [phone]. * Amanda French RN - 01/11/2024 11:45 AM CDT Zoila, nurse from [facility], called requesting we fax over the last office visit note (12/22/23) to them. Patient is scheduled to have an angiogram and they need to know provider's medication instructions for the procedure. documented in this encounter Plan of Treatment Upcoming Encounters Date Type Department Care Team (Late st Contact Info) Description 03/06/2024 1:00 PM BRAIN PICKER Appointment [facility] [address] [facility] [address] [place] [phone] 03/14/2024 2:00 PM BRAIN PICKER Appointment [facility] Neurosurgery/Ortho Spine [address] [place] [address]. [place], [place] [phone] Brandon Kessler MD [address] [place] [address] 03/20/2024 11:15 AM BRAIN PICKER Appointment Rheumatology at [facility] [place] [address] [address] [address] [place] [address] Desilet, Freeman W, DO [address] [place] [address] documented as of this encounter Visit Diagnoses Not on filedocumented in this encounter Care Teams Blender Operator Relationship Specialty Start Date End Date Dalton Esqueda MD [address] [place] [address] PCP - General Family Practice 06/23/23 documented as of this encounter
--- OUTSIDE RECORDS SUMMARY | 2024-01-30 08:32 | XMS_ITS | Clinical Summary ---
Author Organization [facility] Address [address] [place] [address] Care Team Providers [employer] Architect Name Role Phone Dalton Esqueda MD Primary Care Provider [phone] Source Comments You are receiving this document [...] for each transition of care or referral. [facility] Allergies Active Allergy Reactions Criticality Noted Date [...] Take by mouth daily. ProOmega Curcumin by Robodrom: Take 3 capsules by mouth daily Active [...] Active tacrolimus (PROTOPIC) 0.1 % ointmentIndication s:Lupus Apply topically two times a day. to [...] every week. Take 30 minutes before first xtzw-fxkbb-vhfctsy ion on mornings. Avoid lying down for 30 [...] 180 Tablet 1 12/22/19 24 025 Active doxazosin (CARDURA) 2 MG tablet Take 2 [...] 11/01/2016 Brain aneurysm 08/28/2016 Frequent headaches 08/28/2016 Systemic lupus erythematosus, unspecified 2015 Overview (01/24/2024): IMO Replacements 01/24/2024 Left-sided tinnitus 11/20/2015 Fibromyalgia 03/31/2015 Subacute cutaneous lupus erythematosus 5 Generalized anxiety disorder 06/20/2014 Hypertension 08/23/2011 Stenosis of left carotid artery 08/17/2011 Overview (03/22/2023): 08/26/11: Right carotid endarterectomy Adjustment disorder with depressed mood 04/09/20 07 Tobacco use disorder 07/11/2006 Hyperlipidemia 07/11/2006 Overview (03/22/2023): does not tolerate statins: referral to cardiology Encounters Date Type Department Care Team Description 01/11/2024 Telephone Rheumatology at [place] [address] [place] [address]. [place] [address] Freeman Lopez, DO Follow-up 01/06/2024 1:30 PM CDT Office Visit [facility] [address] Cardiology [address] [place] [address] Wilfredo Howell III, MD Hypertension, unspecified type (HRC) (Primary Dx); SSS (sick sinus syndrome) (HRC); Cardiac pacemaker in situ; PAD (peripheral artery disease) (HRC); Mixed hyperlipidemia (HRC) 12/29/2023 10:30 AM CDT Lab Visit [facility] [address] [place] [address] Systemic lupus erythematosus, unspecified SLE type, unspecified organ involvement status (HRC) 12/22/2023 11:20 AM CDT Lab Visit [facility] [address] [place] [address] Systemic lupus erythematosus, unspecified SLE type, unspecified organ involvement status (HRC) 12/22/2023 10:45 AM CDT Office Visit Rheumatology at [facility] [address] [address] [address] [place] [address] DesiletFreeman, Systemic lupus erythematosus, unspecified SLE type, unspecified organ involvement status (HRC) (Primary Dx); High risk medication use; Osteoporosis, unspecified osteoporosis type, unspecified pathological fracture presence (HRC); Essential hypertension (HRC); Vaccine counseling; Pre-op evaluation 12/22/2023 Telephone [facility] [address] [place] [address] Freeman Lopez, Other (The following lab test(s) utpcr are unable to be performed and have been cancelled. Please reorder the test(s) and contact the patient if still clinically indicated.//Terri Galeana 12/22/2023, 4:49 PM/) 12/20/2023 Telephone [facility] [place] [address] Rosa Elena Huynh PA-C RESULTS, TEST 12/15/2023 1:20 PM CDT Lab Visit [facility] [address] [place] [address] Pre-op exam 12/15/2023 12:40 PM CDT Office Visit [facility] [address] Cardiology [address] [place] [phone] Rosa Elena Huynh PA-C Pre-op exam (Primary Dx); Hypertension, unspecified type (HRC); Hyperlipidemia, unspecified hyperlipidemia type (HRC); Hypertensive emergency; SSS (sick sinus syndrome) (HRC); Cardiac pacemaker in situ; Sinus bradycardia; Chronotropic incompetence 12/08/2023 Notes/Orders [facility] Card[facility] [address] [place] [address] Wilfredo Howell III, MD 12/07/2023 Notes/Orders [facility] [place] [address] [place] [address] Wilfredo Howell III, MD 12/06/2023 Telephone [facility] [place] [facility] [address] [place] [address] Wilfredo Howell III, MD UPDATE 11/22/2023 8:45 AM CDT Evaluation [facility] Electrophysiology [address] [facility] [place] [address] SSS (sick sinus syndrome) (HRC) (Primary Dx); Cardiac pacemaker in situ 11/17/2023 E-Visit [facility] [address] [facility] [place] [address] Mychart, Generic Provider 11/17/2023 Telephone [facility] [place] [facility] [address] [place] [address] Wilfredo Howell III, MD Hypertension 11/15/2023 Nurse Triage [facility] [address] [place], [place] [address]. [place] [address] Unknown, Physician Post-Op Problem; BLOOD PRESSURE, HIGH 11/08/2023 12:45 PM CDT - 11/13/2023 11:30 AM CDT Hospital Encounter [facility] [address] [place] [address] Kayla Vázquez DO Sullivan, Daniel J, MD Smith, Cole B, PA-C Nguyen, Catherine Q, DO Kovacovich, Joan M, MD Teeparti, Rewati, MD Chronic pain syndrome (Primary Dx); Hypertensive emergency; Cerebral aneurysm without rupture; Acute nonintractable headache, unspecified headache type; Brain aneurysm Discharge Disposition: Home 11/08/2023 11:30 AM CDT Office Visit [facility] [address] Cardiology [address] [place] [phone] Juan Luis Robles MD Hypertensive emergency (Primary Dx) 11/08/2023 Orders Only [facility] DEPARTMENT ProviderIsabelle MD 11/02/2023 Telephone [facility] Card[facility] [address] [facility] [place] [address] Wilfredo Howell III, MD BLOOD PRESSURE, HIGH from Last 3 Months Immunizations Name Administration Dates Next Due Flu Vac (3+ yrs) 03/21/2013, 2,02/26/2011, 010,02/06/2009 Flu Vac Preserv Free (3+yrs) 02/26/2011 [id number] 04/15/2009 Influenza [id number] 2009 Influenza IIV4 (Quadrivalent ) 0.5mL (56068) 01/17/2017,03/03/2016,01/15/2015, 014,03/21/2013,03/13/2012,02/26/2011,,04/15/2009 PPSV23 (Pneumovax) 04/06/2002 Td 04/06/2002 Tdap 01/31/2023,08/23/2011 Social History Tobacco Use Types Packs/Day Years Used Date Smoking Tobacco: Former Cigarettes Smokeless Tobacco: Never Tobacco Cessation:Counseling Given: Not Answered Alcohol Use Standard Drinks/Week Comments Not Currently 0 (1 standard drink = 0.6 oz pur e alcohol) [facility] Utilities Answer Date Recorded In the past 12 months has e [employer], gas, oil, or water [employer] threatened to shut off services in your [...] st Contact Info) Description 03/06/2024 1:00 PM MANAGER CONFIGURATION Appointment [facility] [address] Electrophysiology [address] [place] [address] 03/14/2024 2:00 PM MANAGER CONFIGURATION Appointment [facility] [place] [facility] [address] [facility] [place] [address] Brandon Kessler MD [address] [place] [address] 03/20/2024 11:15 AM MANAGER CONFIGURATION Appointment Rheumatology at [facility] [place] [address] [address] [address] [place] [address] Desilet, Freeman W, DO [address] [place] [address] Health Maintenance Due Date Last Done Comments Colon Cancer Screening Plan Due 1955 Hep C Screening (Preventive Services) 1955 Medicare Annual Wellness Visit 1955 Cholesterol 1999 Zoster/Shingles (1 of 2) 2004 Pneumococcal 65+ Yrs (2 - PCV) 2019 04/06/2002 Mammogram 03/07/2020 03/07/2019 COVID-19 Vaccine (1 - 2023- season) 2023 Influenza (#1) 2023 01/17/2017, 11/0 12/2015, 01/15/2015, Additional history exists RSV (1 [...] on patient's age to complete this topic RSV Aged Out No longer eligi ble based on patient's age to complete this topic MCV4 Aged Out No longer eligi ble based on patient's age to complete this topic Medical Devices Implanted Type 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 Device Identifier Shelf Expiration Date Model / Serial / Lot Dual Chamber Medtronic Dianne Xt Dr Roxie Diaz-Mri Conditional-10/23 Implanted:11/10 by Gilbert Grey MD (Quantity not on file) Cardiac- Rhythm Left: CHEST Medtronic - Cardiovascular Description:Dual Chamber Med tronic Dianne XT DR ROXIE Diaz - MRI [...] 11/08/2023 1:04 PM CDT PROCEDURE IP 11/08/2023 from Last 3 Months Results * TP/Crea Ratio, Urine (12/29/2023 9:02 AM CDT) TP/Creat Ratio, Urine Random 0.05 0.00 - 0.20 12/29/2023 2:52 PM CDT [facility] Total Protein, Urine, Random 2 0 - 14 mg/dL 12/29/2023 2:52 PM CDT [facility] Creatinine, Urine, Random 41 >20 mg/dL mg/dL 12/29/2023 2:52 PM CDT [facility] Urine Non-blood Collection / Unknown 12/29/2023 9:02 AM CDT 12/29/2023 9:02 AM CDT Narrative [facility] - 12/29/2023 2:52 PM CDT Low urine creatinine values coupled with low urine protein values can artifactually increase the urine protein/creatinine results. Correlate results of ratio with creatinine results. Luke W Desilet DO LAB_1 [facility] [address] [place] [address], [facility] * (ABNORMAL) Urinalysis Routine, Micro/Culture if Pos: Clean Catch (12/22/2023 12:00 PM CDT) Pathologist [facility] Urine Culture Comment Urinalysis results do not meet criteria for urine culture reflex. 12/22/2023 12:10 PM CDT [facility] Urine Color Straw 12/22/2023 12:10 PM CDT [facility] Urine Clarity Clear Clear 12/22/2023 12:10 PM T [facility] Specific [place], Urine <=1.005(A) 1.005 - 1.030 12/22/2023 12:10 PM [facility] PH Urine 6.0 5.0 - 8.0 12/22/2023 12:10 PM T [facility] Protein, Urine Qual (mg/dL) Negative Neg/Trace 12/22/2023 12:10 PM [facility] Glucose Urine Qual (mg/dL) Negative Negative 12/22/2023 12:10 PM [facility] Ketones, Urine (mg/dL) Negative Negative 12/22/2023 12:10 PM [facility] Urobilinogen, Urine (EU/dL) 0.2 <2.0 12/22/2023 12:10 PM [facility] Bilirubin Urine Negative Negative 12/22/2023 12:10 PM [facility] Blood, Urine Negative Neg/Trace 12/22/2023 12:10 PM [facility] Nitrite Urine Negative Negative 12/22/2023 12:10 PM [facility] Leukocyte Est. Negative Negative 12/22/2023 12:10 PM [facility] Urine Source Clean Catch 12/22/2023 12:10 PM [facility] Urine URINE SPECIMEN COLLECTION, CLEAN CATCH / Unknown Non-blood Collection / Unknown 12/22/2023 12:00 PM CDT 12/22/2023 12:00 PM CDT Luke W Desilet DO LAB_1 [facility] [address] [place] [address] * DNA Double Stranded Antibody IgG (ALBA) (12/22/2023 11:23 AM CDT) Anti-DNA Antibody IgG 15 <200 IU 12/27/2023 2:12 PM CDT [facility] Anti-DNA Antibody IgG Interpretation Negative Negative 12/27/2023 2:12 PM CDT [facility] Blood Venipuncture / Unknown 12/22/2023 11:23 AM CDT 12/22/2023 11:23 AM CDT Narrative [facility] - 12/27/2023 2:12 PM CDT The following results were obtained with the KAICORE QUANTA Lite dsDNA ALBA. dsDNA values obtained with different manufacturers' assay methods may not be used interchangeably. Luke W Desilet DO LAB_1 [facility] [address] [place], [place] [address] * (ABNORMAL) Complete Blood Count-W/Diff (12/22/2023 11:23 AM CDT) Only the most recent of3 resultswithin the time period is included. WBC 7.3 3.5 - 10.5 x10(9)/L 12/22/2023 11:28 AM [facility] RBC 3.88(L) 3.90 - 5.03 x10(12)/L 12/22/2023 11:28 AM [facility] Hemoglobin 11.7(L) 12.0 - 15.5 g/dL 12/22/2023 11:28 AM [facility] HCT 36.4 34.9 - 44.5 % 12/22/2023 11:28 AM [facility] MCV 93.8 80.0 - 100.0 fL 12/22/2023 11:28 AM [facility] MCH 30.2 27.6 - 33.3 pg 12/22/2023 11:28 AM [facility] MCHC 32.1 31.5 - 35.2 g/dL 12/22/2023 11:28 AM [facility] RDW 13.7 11.9 - 15.5 % 12/22/2023 11:28 AM [facility] Platelets 265 150 - 450 x10(9)/L 12/22/2023 11:28 AM [facility] Automated NRBC 0 <=0 /100 WBC 12/22/2023 11:28 AM [facility] Neutrophil Absolute 5.7 1.7 - 7.0 10(9)/L 12/22/2023 11:28 AM [facility] Lymphocyte Absolute 1.0 1.0 - 4.8 10(9)/L 12/22/2023 11:28 AM CDT [facility] Monocyte Absolute 0.4 0.2 - 0.9 10(9)/L 12/22/2023 11:28 AM CDT [facility] Eosinophil Absolute 0.1 0.0 - 0.5 10(9)/L 12/22/2023 11:28 AM CDT [facility] Basophil Absolute 0.0 0.0 - 0.3 10(9)/L 12/22/2023 11:28 AM CDT [facility] Immature Granulocyte % 0.4 0.0 - 0.5 % 12/22/2023 11:28 AM CDT [facility] Blood Venipuncture / Unknown 12/22/2023 11:23 AM CDT 12/22/2023 11:23 AM CDT [facility]1 Performing Organization Address City/[facility]/ZIP Co de Phone Number [facility] [address] [place] [address] * C4 Complement (12/22/2023 11:23 AM CDT) C4 Complement 15.0 15.0 - 57.0 mg/dL 12/22/2023 4:07 PM CDT [facility] Blood Venipuncture / Unknown 12/22/2023 11:23 AM CDT 12/22/2023 11:23 AM CDT [facility] Desilet DO LAB_1 [facility] [address] [place], [place] [id number] [place] [address] * C3 Complement (12/22/2023 11:23 AM CDT) C3 Complement 83 83 - 193 mg/dL 12/22/2023 4:07 PM CDT [facility] Blood Venipuncture / Unknown 12/22/2023 11:23 AM CDT 12/22/2023 11:23 AM CDT Freeman Fong Desilet DO LAB_1 [facility] [address] [place] [address], [facility] * (ABNORMAL) Basic Metabolic Panel (12/15/2023 1:14 PM CDT) Only the most recent of7 resultswithin the time period is included. Sodium 137 136 - 145 mmol/L 12/15/2023 5:32 PM [facility] Potassium 5.1 3.5 - 5.1 mmol/L 12/15/2023 5:32 PM [facility] Chloride 103 98 - 109 mmol/L 12/15/2023 5:32 PM [facility] CO2 20 20 - 29 mmol/L 12/15/2023 5:32 PM [facility] Anion Gap 14 6 - 16 mmol/L 12/15/2023 5:32 PM [facility] Calcium 11.1(H) 8.4 - 10.4 mg/dL 12/15/2023 5:32 PM [facility] Comment:Low serum albumin ma y artificially lower total calcium, without impacting ionized calcium concentrations. If patient has or is at risk for hypoalbuminemia, consider ionized serum calcium to more accurately assess calcium status. BUN 57(H) 7 - 26 mg/dL 12/15/2023 5:32 PM [facility] Creatinine 1.09(H) 0.55 - 1.02 mg/dL 12/15/2023 5:32 PM [facility] Glucose 119(H) 70 - 100 mg/dL 12/15/2023 5:32 PM [facility] Comment:The given reference range is for the fasting state. Non-fasting reference range for glucose is 70 - 180 mg/dL. GFR, Estimated 55(L) >60 mL/min/1. 73m2 12/15/2023 5:32 PM [facility] Hours Fasting 0.0 8 - 12 Hours 12/15/2023 5:32 PM [facility] Comment:Patient has indicate d a non-fasting status. Blood Venipuncture / Unknown 12/15/2023 1:14 PM CDT 12/15/2023 1:40 PM CDT Narrative [facility] - 12/15/2023 5:32 PM CDT The National Kidney Disease Education Program suggests measuring Cystatin C in patients with eGFRcrea of 45 to 59 ml/min/1.73^2 who do not have other markers of kidney damage (i.e. elevated urine Albumin/Creatinine Ratio or a prior Cystatin C confirming the presence of chronic kidney disease). Ros aElena Huynh PA-C LAB_1 Performing Organization Address [facility] Co de Phone Number [facility] [address] [place] [address] * ECG 12 Lead Outpatient (12/15/2023 12:40 PM CDT) Ventricular Rate 65 BPM [facility] Atrial Rate 65 BPM [facility] P-R Interval 204 ms [facility] QRS Duration 90 ms [facility] QT 382 ms [facility] QTc 397 ms [facility] P [place] -3 degrees MUSE [facility] R [place] 35 degrees [facility]USE [facility] T [place] 66 degrees [facility] 12/15/2023 12:4 0 PM CDT Narrative [facility] - 12/15/2023 4:07 PM CDT Atrial-paced rhythm Poor R wave progression Abnormal ECG When compared with ECG of 12-NOV-2023 06:51, No significant change was found Confirmed by Christopher Sosa ([id number]) on 12/15/2023 4:07:32 PM Procedure Note Lemuel Sosa MD - 12/15/2023 Atrial-paced rhythm Poor R wave progression Abnormal ECG When compared with ECG of 12-NOV-2023 06:51, No significant change was found Confirmed by Christopher Sosa ([id number]) on 12/15/2023 4:07:32 PM Rosa Elena Huynh PA-C PN ECG ORDERABLES Performing Organization Address [facility] Co de Phone Number [facility] [address] [place] [address] * Pacemaker Evaluation (11/22/2023 8:55 AM CDT) 11/22/2023 8:55 AM CDT Narrative [facility] - 11/22/2023 8:55 AM CDT Normal dual chamber pacemaker function. Patient presents for first visit after implant. Incision C/D/I, without any signs of infection. Incision edges well approximated. The device was interrogated and reprogrammed to assess data, thresholds, and function. No atrial or ventricular high rate episodes noted. TAKE AWAY ATTENDANT <0.1%. Already enrolled in [facility] in 3 months. Please contact [phone] if any questions. dwk James Tejada MD PN ELECTROPHYSIOLOGY ORDERABLE Performing Organization Address [facility] Co de Phone Number [facility] * ECG [...] GHP QTc 420 ms MUSE [facility] P [place] 22 degrees MUSE GHP R [place] 59 degrees MUSE GHP T [place] 78 degrees [facility] 11/12/2023 6:51 AM [...] MD PN ECG ORDERABLES Performing Organization Address [facility]/State/ZIP Co de Phone Number [facility] [address] [place] [address] * XR Chest 2 Views (11/11/2023 7:41 [...] CARDIAC ELECTROPHYSIOLOGY PROCEDURE REPORT Cardiac Electrophysiology Service [facility] [place] Cardiac Safety Aide: ??Gilbert Grey MD Date: 11/11/2023 PROCEDURES PERFORMED: [...] [id number] New Right Atrial Lead: ??Medtronic model [id number] Sensed P waves 4.1 mV, pacing threshold 1.2 V @ 0.5 ms, impedance 898 ohms. New Right Ventricular Lead: ??Medtronic model [id number] Sensed R waves 9.7 mV, pacing threshold [...] Grey MD Cardiac Electrophysiology Service Sharona White TITLE DEPARTMENT MANAGER, ROLLS MILL OPERATOR PN ELECTROPHYSIO LOGY ORDERABLE [facility] [address] [place] [address] * INPATIENT TELEMETRY MONITORING (11/10/2023 9:18 AM CDT) Only the most recent of3 resultswithin the time period is included. TELE P-R INTERVAL 0.17 [facility] TELE QRS DURATION 0.15 [facility] TELE R-R INTERVAL 1.39 [facility] TELE QT 0.50 [facility] TELE INTERPRETATION Sinus Fortino Ирина Scott RN MUSE [facility] 11/10/2023 9:18 AM CDT Narrative [facility] - 11/10/2023 10:53 AM CDT [facility] ??Ирина Scott RN Interface Provider EKG Performing Organization Address City/State/[facility] Co de Phone Number [facility] [address] [place] [address] * GXT Stress Test (11/10/2023 7:52 AM [...] ET ECHO ORDERABL ES Performing Organization Address [facility] Co de Phone Number [facility] [address] [place] [address] * TSH with reflex to fT4 (not for treatment monitoring) (11/10/2023 4:50 AM CDT) TSH, Reflex 0.90 0.30 - 4.50 uIU/mL 11/10/2023 6:20 PM CDT [facility] Blood Venipuncture / Unknown 11/10/2023 4:50 AM CDT 11/10/2023 5:26 AM CDT Sharona White APRN, ROLLS MILL OPERATOR LAB_1 Performing Organization Address [facility] Co de Phone Number [facility] [address] * Echocardiogram (11/09/2023 6:53 AM CDT) 11/09/2023 6:53 AM CDT Narrative PN ECHO - 11/09/2023 8:35 AM CDT Procedure type: ? ECHOCARDIOGRAM Procedure ? 11/09/2023 6:53 AM date/time: Facility: [facility] Accession #: ?[id number] INDICATIONS Dyspnea/SOB. SUMMARY: Left ventricular ejection fraction [...] Staff Interpreting Provider: ?? NILTON GARCIA MD Woodworker Helper: ? EE Ordering Provider: ? JOLEEN Cisneros [...] Procedure Staff Interpreting Provider: NILTON GARCIA MD Woodworker Helper: EE Ordering Provider: JOLEEN Cisneros Attending Physician: KAYLA VÁZQUEZ DO Electronically signed by NILTON GARCIA MD (Interpreting Provider) on at 8:34 AM Crow Howell PA-C ET ECHO ORDERABLES PN ECHO * Complete Blood Count-No Diff (11/09/2023 4:59 AM CDT) WBC 6.1 3.5 - 10.5 x10(9)/L 11/09/2023 5:21 AM CDT [facility] RBC 3.98 3.90 - 5.03 x10(12)/L 11/09/2023 5:21 AM CDT [facility] Hemoglobin 12.0 12.0 - 15.5 g/dL 11/09/2023 5:21 AM CDT [facility] HCT 36.7 34.9 - 44.5 % 11/09/2023 5:21 AM CDT [facility] MCV 92.2 80.0 - 100.0 fL 11/09/2023 5:21 AM CDT [facility] MCH 30.2 27.6 - 33.3 pg 11/09/2023 5:21 AM CDT [facility] MCHC 32.7 31.5 - 35.2 g/dL 11/09/2023 5:21 AM CDT [facility] RDW 13.4 11.9 - 15.5 % 11/09/2023 5:21 AM CDT [facility] Platelets 236 150 - 450 x10(9)/L 11/09/2023 5:21 AM CDT [facility] Automated NRBC 0 <=0 /100 WBC 11/09/2023 5:21 AM CDT [facility] Blood Venipuncture / Unknown 11/09/2023 4:59 AM CDT 11/09/2023 5:17 AM CDT Crow Howell PA-C LAB_1 [facility] [address] * XR Portable Chest 1 View (11/08/2023 8:56 PM CDT) Anatomical Region Laterality Modality Chest, Lung Digital Radiogra phy 11/08/2023 8:42 PM CDT Impressions 11/08/2023 9:25 PM CDT COMPARISON: ??None. FINDINGS: Normal cardiomediastinal silhouette and pulmonary vasculature. Lungs appear clear. No pneumothorax or pleural effusion. Surgical clips in the right neck. Narrative Procedure Note Carlo Mejai MD - 11/08/2023 IMPRESSION COMPARISON: None. FINDINGS: Normal cardiomediastinal silhouette and pulmonary vasculature.Lungs appear clear. No pneumothorax or pleural effusion. Surgical clips inthe right neck. Crow Howell PA-C RAD PORTABLE * MRSA, Molecular Detection (11/08/2023 8:35 PM CDT) Pathologist [facility] MRSA Not Detected Not Detected 11/08/2023 9:53 PM CDT [facility] Swab (Source Required) ENTIRE ANTERIOR NARIS / Unknown Non-blood Collection / Unknown 11/08/2023 8:35 PM CDT 11/08/2023 8:39 PM CDT Narrative [facility] - 11/08/2023 9:53 PM CDT Methodology: Qualitative real-time PCR assay Christian Carter MD LAB_1 Performing Organization Address [facility] Phone Number [facility] [address] * Glucose, Whole Blood POCT (11/08/2023 8:12 PM CDT) Glucose, Whole Blood 86 70 - 180 mg/dL 11/08/2023 8:13 PM CDT [facility] Performing Location MT 2N/S 11/08/2023 8:13 PM CDT [facility] Blood 11/08/2023 8:12 PM CDT 11/08/2023 8:13 PM CDT Christian Carter MD LAB_1 Performing Organization Address [facility] Phone Number [facility] [address] [place] [address] * (ABNORMAL) Troponin-I (11/08/2023 7:56 PM CDT) Only the most recent of2 resultswithin the time period is included. Troponin I 0.06(H) 0.00 - 0.03 ng/mL 11/08/2023 8:33 PM CDT [facility] Blood Venipuncture / Unknown 11/08/2023 7:56 PM CDT 11/08/2023 8:00 PM CDT Crow Howell PA-C LAB_1 Performing Organization Address [facility] Phone Number [facility] [address] * CT Angio Neck Head W IV Cont (11/08/2023 2:23 PM CDT) Anatomical Region Laterality Modality Head, Vascular Computed Tomogra phy 11/08/2023 2:08 PM CDT Impressions 11/08/2023 3:23 PM CDT INDICATION: sams, htn, known aneurysms TECHNIQUE: CT angiogram of the [place] ??and CT angiogram of the [...] known aneurysms TECHNIQUE: CT angiogram of the [place] and CT angiogram of theneck [...] examination. No evidencefor acute intracranial hemorrhage. Kayla KNIGHT CT * Extra Blue top tube (11/08/2023 1:04 PM CDT) [facility] Extra Blue Top Drawn Specimen will be held for 24 hours 11/08/2023 3:00 PM CDT [facility] Blood Venipuncture / Unknown 11/08/2023 1:04 PM CDT 11/08/2023 1:16 PM CDT Jenaro Robles MD LAB[facility] [address] [place], [place] [address] * (ABNORMAL) B-Type Natriuretic Peptide (11/08/2023 1:04 PM CDT) Pathologist [facility] B Type Natr. Peptide 198(H) <=99 pg/mL 11/08/2023 1:57 PM CDT [facility] Blood Venipuncture / Unknown 11/08/2023 1:04 PM CDT 11/08/2023 1:16 PM CDT Kayla Vázquez DO LAB_1 [facility] [address] [place] [address], [facility] * PROCEDURE IP (11/08/2023) Anatomical Region Laterality Modality Other Interface Provider DUMMY/OTHER/AR from Last 3 Months Advance Directives * [...] for unstable rhythm? Unaddressed/Y es Care Teams Sap Solutions Architect Relationship Specialty Start Date End Date Dalton Esqueda MD [address] [place] [address] PCP - General Family Practice 06/23/23
--- OUTSIDE RECORDS SUMMARY | 2024-01-30 08:32 | XMS_ITS | Encounter Summary ---
Author Organization [employer] Address [address] [place] [address] Care Team Providers Care Professional Application Designer Name Role Phone Dalton Esqueda MD Primary Care Provider [phone] Encounter Details Date Type Department Care Team (Late st Contact Info) Description 12/22/2023 11:20 AM CDT Lab Visit [facility] [address] [place], [place] [address] Systemic lupus erythematosus, unspecified SLE type, unspecified organ involvement status (HRC) Social History Tobacco Use Types Packs/Day Years Used Date Smoking Tobacco: Former Cigarettes Smokeless Tobacco: Never Alcohol Use Standard Drinks/Week Comments Not Currently 0 (1 standard drink = 0.6 oz pur e alcohol) [facility] Utilities Answer Date Recorded In the past [address] [facility] [employer], gas, oil, or water [employer] threatened to shut off services in your [...] st Contact Info) Description 03/06/2024 1:00 PM MANAGEMENT DEPARTMENT CHAIR Appointment [facility] [address] [facility] [address] [place] [phone] 03/14/2024 2:00 PM MANAGEMENT DEPARTMENT CHAIR Appointment [facility] Neurosurgery/Ortho Spine [address] [facility] [place] [address] Brandon Kessler MD [address] [place] [address] 03/20/2024 11:15 AM MANAGEMENT DEPARTMENT CHAIR Appointment Rheumatology at [facility] [address] [address] [address] [place] [address] Desilet, Freeman W, DO [address] [place] [address] documented as of this encounter Procedures Procedure [...] 0.00 - 0.20 12/29/2023 2:52 PM CDT [facility] Total Protein, Urine, Random 2 0 - 14 mg/dL 12/29/2023 2:52 PM CDT [facility] Creatinine, Urine, Random 41 >20 mg/dL mg/dL 12/29/2023 2:52 PM CDT [facility] Urine Non-blood Collection / Unknown 12/29/2023 9:02 AM CDT 12/29/2023 9:02 AM CDT Narrative [facility] - 12/29/2023 2:52 PM CDT Low urine creatinine values coupled with low urine protein values can artifactually increase the urine protein/creatinine results. Correlate results of ratio with creatinine results. Luke W Desilet DO LAB_1 [facility] [address] * (ABNORMAL) Urinalysis Routine, Micro/Culture if Pos: Clean Catch (12/22/2023 12:00 PM CDT) Urine Culture Comment Urinalysis results do not meet criteria for urine culture reflex. 12/22/2023 12:10 PM [facility] Urine Color Straw 12/22/2023 12:10 PM [facility] Urine Clarity Clear Clear 12/22/2023 12:10 PM [facility] Specific [place], Urine <=1.005(A) 1.005 - 1.030 12/22/2023 12:10 PM [facility] PH Urine 6.0 5.0 - 8.0 12/22/2023 12:10 PM [facility] Protein, Urine Qual (mg/dL) Negative Neg/Trace 12/22/2023 12:10 PM [facility] Glucose Urine Qual (mg/dL) Negative Negative 12/22/2023 12:10 PM [facility] Ketones, Urine (mg/dL) Negative Negative 12/22/2023 12:10 PM [facility] Urobilinogen, Urine (EU/dL) 0.2 <2.0 12/22/2023 12:10 PM [facility] Bilirubin Urine Negative Negative 12/22/2023 12:10 PM [facility] Blood, Urine Negative Neg/Trace 12/22/2023 12:10 PM [facility] Nitrite Urine Negative Negative 12/22/2023 12:10 PM [facility] Leukocyte Est. Negative Negative 12/22/2023 12:10 PM [facility] Urine Source Clean Catch 12/22/2023 12:10 PM [facility] Urine URINE SPECIMEN COLLECTION, CLEAN CATCH / Unknown Non-blood Collection / Unknown 12/22/2023 12:00 PM CDT 12/22/2023 12:00 PM CDT Luke W Desilet DO LAB_1 [facility] [address] [place] [address], [facility] * (ABNORMAL) Complete Blood Count-W/Diff (12/22/2023 11:23 AM CDT) WBC 7.3 3.5 - 10.5 x10(9)/L 12/22/2023 11:28 AM [facility] RBC 3.88(L) 3.90 - 5.03 x10(12)/L 12/22/2023 11:28 AM [facility] Hemoglobin 11.7(L) 12.0 - 15.5 g/dL 12/22/2023 11:28 AM [facility] HCT 36.4 34.9 - 44.5 % 12/22/2023 11:28 AM [facility] MCV 93.8 80.0 - 100.0 fL 12/22/2023 11:28 AM [facility] MCH 30.2 27.6 - 33.3 pg 12/22/2023 11:28 AM [facility] MCHC 32.1 31.5 - 35.2 g/dL 12/22/2023 11:28 AM [facility] RDW 13.7 11.9 - 15.5 % 12/22/2023 11:28 AM [facility] Platelets 265 150 - 450 x10(9)/L 12/22/2023 11:28 AM [facility] Automated NRBC 0 <=0 /100 WBC 12/22/2023 11:28 AM [facility] Neutrophil Absolute 5.7 1.7 - 7.0 10(9)/L 12/22/2023 11:28 AM [facility] Lymphocyte Absolute 1.0 1.0 - 4.8 10(9)/L 12/22/2023 11:28 AM [facility] Monocyte Absolute 0.4 0.2 - 0.9 10(9)/L 12/22/2023 11:28 AM CDT [facility] Eosinophil Absolute 0.1 0.0 - 0.5 10(9)/L 12/22/2023 11:28 AM CDT [facility] Basophil Absolute 0.0 0.0 - 0.3 10(9)/L 12/22/2023 11:28 AM CDT [facility] Immature Granulocyte % 0.4 0.0 - 0.5 % 12/22/2023 11:28 AM T [facility] Blood Venipuncture / Unknown 12/22/2023 11:23 AM CDT 12/22/2023 11:23 AM CDT [facility]1 [facility] [address] [place] [address] * DNA Double Stranded Antibody IgG (ALBA) (12/22/2023 11:23 AM CDT) Pathologist [facility] Anti-DNA Antibody IgG 15 <200 IU 12/27/2023 2:12 PM CDT [facility] Anti-DNA Antibody IgG Interpretation Negative Negative 12/27/2023 2:12 PM T [facility] Blood Venipuncture / Unknown 12/22/2023 11:23 AM CDT 12/22/2023 11:23 AM CDT Narrative [facility] - 12/27/2023 2:12 PM CDT The following results were obtained with the [employer] QUANTA Lite dsDNA ALBA. dsDNA values obtained with different manufacturers' assay methods may not be used interchangeably. Corous360ilet DO LAB_1 [facility] [address] [place], [place] [address] * C4 Complement (12/22/2023 11:23 AM CDT) C4 Complement 15.0 15.0 - 57.0 mg/dL 12/22/2023 4:07 PM T [facility] Blood Venipuncture / Unknown 12/22/2023 11:23 AM CDT 12/22/2023 11:23 AM CDT Freeman W Desilet DO LAB_1 [facility] [address] * C3 Complement (12/22/2023 11:23 AM CDT) C3 Complement 83 83 - 193 mg/dL 12/22/2023 4:07 PM CDT [facility] Blood Venipuncture / Unknown 12/22/2023 11:23 AM CDT 12/22/2023 11:23 AM CDT Freeman Desilet DO LAB_1 Performing Organization Address [facility] Co de Phone Number [facility] [address] documented in this encounter Visit Diagnoses Diagnosis Systemic lupus erythematosus, unspecified SLE type, unspecified organ involvement status (HRC) documented in this encounter Care Teams Professional Application Designer Relationship Specialty Start Date End Date Dalton Esqueda MD [address] [place] [address] PCP - General Family Practice 06/23/23 documented as of this encounter
--- OUTSIDE RECORDS SUMMARY | 2024-01-30 08:32 | XMS_ITS | Encounter Summary ---
Author Organization [employer] Address [address] [place] [address] Care Team Providers Care Turkey Picker Name Role Phone Dalton Esqueda MD Primary Care Provider [phone] Encounter Details Date Type Department Care Team (Late st Contact Info) Description 12/29/2023 10:30 AM CDT Lab Visit [facility] [address] [place], [place] [address] Systemic lupus erythematosus, unspecified SLE type, unspecified organ involvement status (HRC) Social History Tobacco Use Types Packs/Day Years Used Date Smoking Tobacco: Former Cigarettes Smokeless Tobacco: Never Alcohol Use Standard Drinks/Week Comments Not Currently 0 (1 standard drink = 0.6 oz pur e alcohol) [facility] Utilities Answer Date Recorded In the past 12 months has [facility] [employer], gas, oil, or water [employer] threatened to shut off services in your [...] st Contact Info) Description 03/06/2024 1:00 PM CEMENT CRUSHER OPERATOR Appointment [facility] [address] [facility] [address] [place] [phone] 03/14/2024 2:00 PM CEMENT CRUSHER OPERATOR Appointment [facility] Neurosurgery/Ortho Spine [address] [place] [address] Brandon Kessler MD [address] [place] [address] 03/20/2024 11:15 AM CEMENT CRUSHER OPERATOR Appointment Rheumatology at [facility] [place] [address] [address] [address] [place] [address] Desilet, Freeman W, DO [address] [place] [address] documented as of this encounter Procedures Procedure Name Priority Date/Time Associated Diagnosis Comments TP/CREA RATIO, URINE Routine 12/29/2023 9:02 AM CDT Systemic lupus erythematosus, unspecified SLE type, unspecified organ involvement status (HRC) documented in this encounter Results * TP/Crea Ratio, Urine (12/29/2023 9:02 AM CDT) TP/Creat Ratio, Urine Random 0.05 0.00 - 0.20 12/29/2023 2:52 PM CDT [facility] Total Protein, Urine, Random 2 0 - 14 mg/dL 12/29/2023 2:52 PM CDT [facility] Creatinine, Urine, Random 41 >20 mg/dL mg/dL 12/29/2023 2:52 PM CDT [facility] Urine Non-blood Collection / Unknown 12/29/2023 9:02 AM CDT 12/29/2023 9:02 AM CDT Narrative [facility] - 12/29/2023 2:52 PM CDT Low urine creatinine values coupled with low urine protein values can artifactually increase the urine protein/creatinine results. Correlate results of ratio with creatinine results. Luke W Desilet DO LAB_1 [facility] [address] [place], [place] [address] [place] [address] documented in this encounter Visit Diagnoses Diagnosis Systemic lupus erythematosus, unspecified SLE type, unspecified organ involvement status (HRC) documented in this encounter Care Teams Turkey Picker Relationship Specialty Start Date End Date Dalton Esqueda MD [address] [place] [address] PCP - General Family Practice 06/23/23 documented as of this encounter
--- OUTSIDE RECORDS SUMMARY | 2024-01-30 08:33 | XMS_ITS | Encounter Summary ---
Author Organization [employer] Address [address] [place] [address] Care Team Providers Care Pocket Machine Operator Name Role Phone Dalton Esqueda MD Primary Care Provider Reason for Visit * Reason Comments Post-Op Problem BLOOD PRESSURE, HIGH Encounter Details Date Type Department Care Team (Late st Contact Info) Description 11/15/2023 Nurse Triage Careline [address] [place], [place] [address] Unknown, Physician [address] [place], [place] [phone] Post-Op Problem; BLOOD PRESSURE, HIGH Social History Tobacco Use Types Packs/Day Years Used Date Smoking Tobacco: Former Cigarettes Smokeless Tobacco: Never Alcohol Use Standard Drinks/Week Comments Not Currently 0 (1 standard drink = 0.6 oz pur e alcohol) [facility] Utilities Answer Date Recorded In the past 12 months has [employer], gas, oil, or water [employer] threatened to shut off services in your [...] symptoms/situation): Patient states that she was at [facility] last week for uncontrolled HTN. [...] neurologic symptoms Protocols used: Blood Pressure - [id number] Plan: MD Consult, Vinay Lindsay Paged at [...] st Contact Info) Description 03/06/2024 1:00 PM HIDE SHAKER Appointment [facility] [address] Electrophysiology [address] [place] [phone] 03/14/2024 2:00 PM HIDE SHAKER Appointment [facility] Neurosurgery/Ortho Spine [address] [place] [address]. [place] [address] Brandon Kessler MD [address] [place] [address] 03/20/2024 11:15 AM HIDE SHAKER Appointment Rheumatology at [facility] [place] [address] [address] [address] [place] [address] Freeman Lopez W, DO [address] [place] [address] documented as of this encounter Visit Diagnoses Not on filedocumented in this encounter Care Teams Pocket Machine Operator Relationship Specialty Start Date End Date Dalton Esqueda MD [address] [place] [address] PCP - General Family Practice 06/23/23 documented as of this encounter
--- OUTSIDE RECORDS SUMMARY | 2024-01-30 08:33 | XMS_ITS | Encounter Summary ---
Author Organization [employer] Address [address] [place] [address] Care Team Providers Care Switch Repairer Name Role Phone Dalton Esqueda MD Primary Care Provider [phone] Reason for Visit * Reason Comments Hypertension Encounter Details Date Type Department Care Team (Late st Contact Info) Description 11/17/2023 [facility]phone [facility] Card[facility] [employer] [place] [place] [address] Wilfredo Howell III, MD [address] [place] [address] Hypertension Social History Tobacco Use Types Packs/Day Years Used Date Smoking Tobacco: Former Cigarettes Smokeless Tobacco: Never Alcohol Use Standard Drinks/Week Comments Not Currently 0 (1 standard drink = 0.6 oz pur e alcohol) [facility] Utilities Answer Date Recorded In the past 12 months has [employer], gas, oil, or water [employer] threatened to shut off services in your [...] place to sleep or slept in a jail (including now)? No 11/08/2023 Sex and Gender [...] st Contact Info) Description 03/06/2024 1:00 PM TRANSFORMER STOCK CLERK [facility]ment [facility] [address] Electrophysiology [address] [place] [phone] 03/14/2024 2:00 PM TRANSFORMER STOCK CLERK Appointment [facility] Neurosurgery/Ortho Spine [address] [facility] [place] [address] Brandon Kessler MD [address] [place] [address] 03/20/2024 11:15 AM TRANSFORMER STOCK CLERK Appointment Rheumatology at [facility] [place] [address] [address] [address] [place] [address] Freeman Lopez, DO [address] [place] [address] documented as of this encounter Visit Diagnoses Not on filedocumented in this encounter Care Teams Switch Repairer Relationship Specialty Start Date End Date Dalton Esqueda MD [address] [place] [address] PCP - General Family Practice 06/23/23 documented as of this encounter
--- OUTSIDE RECORDS SUMMARY | 2024-01-30 08:33 | XMS_ITS | Encounter Summary ---
Author Organization [employer] Address [address] [place] [address] Care Team Providers Care Laundry Or Dry Cleaners Counter Clerk Name Role Phone Dalton Esqueda MD Primary Care Provider [phone] Reason for Visit * Reason Comments UPDATE Encounter Details Date Type Department Care Team (Late st Contact Info) Description 12/06/2023 [facility]phone [facility] Cardiology [employer] [address] Wilfredo Howell III, MD [address] [place] [address] UPDATE Social History Tobacco Use Types Packs/Day Years Used Date Smoking Tobacco: Former Cigarettes Smokeless Tobacco: Never Alcohol Use Standard Drinks/Week Comments Not Currently 0 (1 standard drink = 0.6 oz pur e alcohol) [facility] Utilities Answer Date Recorded In the past 12 months has [employer], gas, oil, or water [employer] threatened to shut off services in your [...] previously had praluent prescribed through a prior recreation assistant and is wondering if Dr. Howell would [...] st Contact Info) Description 03/06/2024 1:00 PM SANITATION LABORER Appointment [facility] [address] Electrophysiology [address] [place] [address] 03/14/2024 2:00 PM SANITATION LABORER Appointment [facility] Neurosurgery/Ortho Spine [address] [place] [address]. [place] [address] Brandon Kessler MD [address] [place] [address] 03/20/2024 11:15 AM SANITATION LABORER Appointment Rheumatology at [facility] [place] [address] [facility] [address] [place] [address] DesiletFreeman W, DO [address] [place] [address] documented as of this encounter Visit Diagnoses Not on filedocumented in this encounter Care Teams Laundry Or Dry Cleaners Counter Clerk Relationship Specialty Start Date End Date Dalton Esqueda MD [address] [place] [address] PCP - General Family Practice 06/23/23 documented as of this encounter
--- OUTSIDE RECORDS SUMMARY | 2024-01-30 08:33 | XMS_ITS | Encounter Summary ---
Author Organization [employer] Address [address] [place] [address] Care Team Providers Care Family Dinner Service Specialist Name Role Phone Dalton Esqueda MD Primary Care Provider [phone] Reason for Referral * (Routine) - New Request Specialty Diagnoses / Procedures Referred By Jonathan mora Referred To Contact Diagnoses SSS (sick sinus syndrome) (HRC) Cardiac pacemaker in situ Procedures Pacemaker Evaluation James Tejada MD [address] [place] [address] Referral ID Status Reason Start Date Expiration Date V isits Requested Visits Authorized [id number] New Request 11/22/2023 02/20/2025 1 1 Reason for Visit * Reason Comments Device Check Encounter Details Date Type Department Care Team (Late st Contact Info) Description 11/22/2023 8:45 AM CDT [facility] Electrophysiology [address] [address] SSS (sick sinus syndrome) (HRC) (Primary Dx); Cardiac pacemaker in situ Social History Tobacco Use Types Packs/Day Years Used Date Smoking Tobacco: Former Cigarettes Smokeless Tobacco: Never Alcohol Use Standard Drinks/Week Comments Not Currently 0 (1 standard drink = 0.6 oz pur e alcohol) [facility] Utilities Answer Date Recorded In the past 12 months has th e [employer], gas, oil, or water [employer] threatened to shut off services in your [...] st Contact Info) Description 03/06/2024 1:00 PM CLAIMS ADMINISTRATOR Appointment [facility] [address] Electrophysiology [address] [place] [address] 03/14/2024 2:00 PM CLAIMS ADMINISTRATOR Appointment [facility] Neurosurgery/Ortho Spine [address] [facility] [place] [address] Brandon Kessler MD [address] [place] [address] 03/20/2024 11:15 AM CLAIMS ADMINISTRATOR Appointment Rheumatology at [facility] [place] [address] [address] [address] [place] [address] Desilet, Freeman W, DO [address] [place], [place] [address] documented as of this encounter Procedures Procedure [...] atrial or ventricular high rate episodes noted. SOUND INSTALLATION WORKER <0.1%. Already enrolled in [facility], RTC in 3 months. Please contact [phone] if any questions. dwk James Tejada MD PN ELECTROPHYSIOLOGY ORDERABLE [employer] documented in this encounter Visit Diagnoses Diagnosis SSS (sick sinus syndrome) (HRC)- Primary Sinoatrial node dysfunction Cardiac pacemaker in situ documented in this encounter Care Teams Family Dinner Service Specialist Relationship Specialty Start Date End Date Dalton Esqueda MD [address] [place] [address] PCP - General Family Practice 06/23/23 documented as of this encounter
--- OUTSIDE RECORDS SUMMARY | 2024-01-30 08:33 | XMS_ITS | Encounter Summary ---
Author Organization [employer] Address [address] [place] [address] Care Team Providers Care Dye Range Operator Cloth Name Role Phone Dalton Esqueda MD Primary Care Provider [phone] Reason for Visit * Reason Comments RESULTS, TEST Encounter Details Date Type Department Care Team (Late st Contact Info) Description 12/20/2023 Telephone [facility] Cardiology [address] [employer] [place] [address] Rosa Elena Huynh PAYani [address] [place] [address] RESULTS, TEST Social History Tobacco Use Types Packs/Day Years Used Date Smoking Tobacco: Former Cigarettes Smokeless Tobacco: Never Alcohol Use Standard Drinks/Week Comments Not Currently 0 (1 standard drink = 0.6 oz pur e alcohol) [facility] Utilities Answer Date Recorded In the past 12 months has e [employer], gas, oil, or water [employer] threatened to shut off services in your [...] wait on reporting themuntil she see's Dr. Howlel on 01/06/24. * Traci Ochoa RN - [...] st Contact Info) Description 03/06/2024 1:00 PM CLAIM TAKER Appointment [facility] [address] Electrophysiology [address] [place] [phone] 03/14/2024 2:00 PM CLAIM TAKER Appointment [facility] Neurosurgery/Ortho Spine [address] [place] [address] Brandon Kessler MD [address] [place] [address] 03/20/2024 11:15 AM CLAIM TAKER Appointment Rheumatology at [facility] and [facility]ty [facility] [address] [facility] [address] [place] [address] Freeman Lopez, DO [address] [place] [address] documented as of this encounter Visit Diagnoses Not on filedocumented in this encounter Care Teams Dye Range Operator Cloth Relationship Specialty Start Date End Date Dalton Esqueda MD [address] [place] [address] PCP - General Family Practice 06/23/23 documented as of this encounter
--- OUTSIDE RECORDS SUMMARY | 2024-01-30 08:33 | XMS_ITS | Encounter Summary ---
Author Organization [email or web address] Address [address] [place] [address] Care Team Providers Care Sports Betting Manager Name Role Phone Dalton Esqueda MD Primary Care Provider [phone] Reason for Visit * Reason Comments Follow-up Encounter Details Date Type Department Care Team (Late st Contact Info) Description 12/15/2023 12:40 PM CDT Office Visit [facility] [address] Cardiology [address] [place] [address] Rosa Elena Huynh PA-C [address] [place], [place] [address] Pre-op exam (Primary Dx); Hypertension, unspecified type (HRC); Hyperlipidemia, unspecified hyperlipidemia type (HRC); Hypertensive emergency; SSS (sick sinus syndrome) (HRC); Cardiac pacemaker in situ; Sinus bradycardia; Chronotropic incompetence Social History Tobacco Use Types Packs/Day Years Used Date Smoking Tobacco: Former Cigarettes Smokeless Tobacco: Never Alcohol Use Standard Drinks/Week Comments Not Currently 0 (1 standard drink = 0.6 oz pur e alcohol) [facility] Utilities Answer Date Recorded In the past 12 months has e electric, gas, oil, or water [employer] threatened to shut off services in your [...] place to sleep or slept in a usp (including now)? No 11/08/2023 Sex and Gender [...] Us: For routine appointment scheduling, please call [phone]. If you have medical questions or concerns, please contact my nurse Traci at [phone] Thank you for choosing [facility] Rosa Elena Huynh PA-C Department of Cardiology documented in this encounter Progress Notes * Rosa Elena Huynh PA-C - 12/15/2023 12:40 PM CDT Cardiology Clinic Progress Note 12/15/2023 Nicolle Covington [id number] Primary Relay Assembler: Dr. Howell SUBJECTIVE: Nicolle Covington is a pleasant 68 y.o. female who presents to clinic today for follow up of hypertensive urgency/emergency. She is a history of peripheral artery disease, cerebral aneurysm, fibromyalgia, uncontrolled hypertension leading to hypertensive urgency (intolerance to several medications, limiting therapy), lupus, tobacco abuse, and obstructive sleep apnea. She was recently admitted to [facility] 716 to 11/13/2023 with hypertensive [...] (165.1 cm) Wt 131 lb 6.4 oz (66545 g) BMI 21.87 kg/m?? Estimated body mass index is 21.87 kg/m?? as calculated from the following: Height as of this encounter: 5' 5 (165.1 cm). Weight as of this encounter: 131 lb 6.4 oz (54889 g). General Appearance: No apparent distress. Pleasant, [...] 11/11/2023 PAD. Follows with vascular surgery at [facility] Tobacco abuse, hx of. Cerebral [...] iliac intervention through vascular surgery team at [facility] scheduled for 01/12/24, no cardiac contraindication to proceeding with this Rosa Elena Huynh PA-C Department of Cardiology My total time was 30 minutes with 20 minutes spent in person reviewing medications, lab results, and plan of care. documented in this encounter Plan of Treatment Upcoming Encounters Date Type Department Care Team (Late st Contact Info) Description 03/06/2024 1:00 PM COMBINATION WORKER Appointment [facility] [address] Electrophysiology [address] [place] [address] 03/14/2024 2:00 PM COMBINATION WORKER Appointment [facility] Neurosurgery/Ortho Spine [address] [place] [address]. [place] [address] Brandon Kessler MD [address] [place] [address] 03/20/2024 11:15 AM COMBINATION WORKER Appointment Rheumatology at [facility] [place] [address] [address] [address] [place] [address] Desilet, Luartie W, DO [address] [place], [place] [address] documented as of this encounter Procedures Procedure Name Priority Date/Time Associated Diagnosis Comments ECG 12 LEAD OUTPATIENT Routine 12/15/2023 12:40 PM CDT Pre-op exam documented in this encounter Results * (ABNORMAL) Basic Metabolic Panel (12/15/2023 1:14 PM CDT) Sodium 137 136 - 145 mmol/L 12/15/2023 5:32 PM [facility] Potassium 5.1 3.5 - 5.1 mmol/L 12/15/2023 5:32 PM [facility] Chloride 103 98 - 109 mmol/L 12/15/2023 5:32 PM [facility] CO2 20 20 - 29 mmol/L 12/15/2023 5:32 PM [facility] Anion Gap 14 6 - 16 mmol/L 12/15/2023 5:32 PM [facility] Calcium 11.1(H) 8.4 - 10.4 mg/dL 12/15/2023 5:32 PM [facility] Comment:Low serum albumin ma y artificially lower total calcium, without impacting ionized calcium concentrations. If patient has or is at risk for hypoalbuminemia, consider ionized serum calcium to more accurately assess calcium status. BUN 57(H) 7 - 26 mg/dL 12/15/2023 5:32 PM [facility] Creatinine 1.09(H) 0.55 - 1.02 mg/dL 12/15/2023 5:32 PM [facility] Glucose 119(H) 70 - 100 mg/dL 12/15/2023 5:32 PM [facility] Comment:The given reference range is for the fasting state. Non-fasting reference range for glucose is 70 - 180 mg/dL. GFR, Estimated 55(L) >60 mL/min/1. 73m2 12/15/2023 5:32 PM [facility] Hours Fasting 0.0 8 - 12 Hours 12/15/2023 5:32 PM [facility] Comment:Patient has indicate d a non-fasting status. Blood Venipuncture / Unknown 12/15/2023 1:14 PM CDT 12/15/2023 1:40 PM [facility] - 12/15/2023 5:32 PM T The National Kidney Disease Education Program suggests measuring Cystatin C in patients with eGFRcrea of 45 to 59 ml/min/1.73^2 who do not have other markers of kidney damage (i.e. elevated urine Albumin/Creatinine Ratio or a prior Cystatin C confirming the presence of chronic kidney disease). Rosa Elena Huynh PA-C LAB_1 Performing Organization Address [facility] Co de Phone Number [facility] [address] [place] [address] * ECG 12 Lead Outpatient (12/15/2023 12:40 PM CDT) Ventricular Rate 65 BPM [facility] Atrial Rate 65 BPM [facility] P-R Interval 204 ms [facility] QRS Duration 90 ms [facility] QT 382 ms [facility] QTc 397 ms [facility] P Elizabeth -3 degrees MUSE [facility] R Elizabeth 35 degrees MUSE [facility] T Elizabeth 66 degrees [facility]USE [facility] 12/15/2023 12:4 0 PM CDT Narrative [facility] - 12/15/2023 4:07 PM CDT Atrial-paced rhythm Poor R wave progression Abnormal ECG When compared with ECG of 12-NOV-2023 06:51, No significant change was found Confirmed by Christopher Sosa ([id number]) on 12/15/2023 4:07:32 PM Procedure Note Lemuel Sosa MD - 12/15/2023 Atrial-paced rhythm Poor R wave progression Abnormal ECG When compared with ECG of 12-NOV-2023 06:51, No significant change was found Confirmed by Christopher Sosa ([id number]) on 12/15/2023 4:07:32 PM Rosa Elena Huynh PA-C PN ECG ORDERABLES Performing Organization Address [facility] Co de Phone Number [facility] [address] [place] [address] documented in this encounter Visit Diagnoses Diagnosis Pre-op exam- Primary Preoperative examination, unspecified Hypertension, unspecified type (HRC) Hyperlipidemia, unspecified hyperlipidemia type (HRC) Hypertensive emergency Unspecified essential hypertension SSS (sick sinus syndrome) (HRC) Sinoatrial node dysfunction Cardiac pacemaker in situ Sinus bradycardia Other specified cardiac dysrhythmias Chronotropic incompetence Other specified conduction disorder documented in this encounter Care Teams Sports Betting Manager Relationship Specialty Start Date End Date Dalton Esqueda MD [address] [place] [address] PCP - General Family Practice 06/23/23 documented as of this encounter
--- OUTSIDE RECORDS SUMMARY | 2024-01-30 08:33 | XMS_ITS | Encounter Summary ---
Author Organization [facility] Address [address] [place] [address] Care Team Providers Care Health Sciences Program Coordinator Name Role Phone Dalton Esqueda MD Primary Care Provider [phone] Reason for Visit * Reason Comments Follow-up Encounter Details Date Type Department Care Team (Late st Contact Info) Description 12/22/2023 10:45 AM CDT Office Visit Rheumatology at [facility] [address] [address] Desilet, Freeman Fong, DO [address] [place], [place] [address] Systemic lupus erythematosus, unspecified SLE type, unspecified [...] 0.6 oz pur e alcohol) [facility] Utilities Answer Date Recorded In [...] at this time. Keep working with the fur trapper on adjusting your blood pressure medications. I will send my note to your fur trapper as well. To help with reducing blood [...] with several outside rheumatologists (Dr. Louis at [facility] and Dr. Cordova at [facility]) - several prior medication intolerances as noted below - at presentation to [facility] February 2023, appeared to have clinically stable [...] 2023. 2. Osteoporosis -most recent DEXA scan ([facility]) July 2022 with osteoporosis, most severe T-score of -2.8 at the left femoral neck -long-term steroid use for lupus -previously on Evenity briefly but discontinued due to musculoskeletal pain. No prior reported bisphosphonate use prior to [facility]. -started oral alendronate 70 mg weekly February 2023 Rheumatologic Serologies: Positive: JUJU (1:2560 in speckled pattern), SSA, SSB, Ro 52, Ro 60, Negative: RF, CCP, dsDNA, Lyme, hepatitis-B core antibody, hepatitis-C antibody, hepatitis-B surface antigen, HIV antigen/antibody, SPEP Rheumatologic medications: Current: Mycophenolate mofetil (CellCept) 1000 mg twice a day Prednisone 7.5 mg daily (jail) Hydroxychloroquine 200 mg daily (February 2023-present) Oral [...] Also saw vascular surgery in November at [facility] and is planning for aorta and [...] relevant results: US CAROTID DUPLEX BILATERAL Order: [id number] Narrative VASCULAR ULTRASOUND REPORT NICOLLE COVINGTON : 1955 Study Date: 12/07/2023 8:22:07 AM Age: 68 years Tech: JAG Gender: F Referring MD: MITCHEL MARMOLEJO Site: [facility] Study performed: Carotid Indication for Study: [...] www.intersocietal.org/vascular US ANKLE BRACHIAL INDEX BILATERAL Order: [id number] Narrative VASCULAR ULTRASOUND REPORT NICOLLE COVINGTON : 1955 Study Date: 12/07/2023 8:16:00 AM Age: 68 years Tech: JAG Gender: F Referring MD: MITCHEL MARMOLEJO Site: [facility] Study performed: Lower extremity resting ISMAEL, [...] 168 Index +-----+ +--------+ +-----+ 0.97 163 PMO ANALYST 89 0.53 +-----+ +--------+ +-----+ 0.94 158 DPA 79 0.47 +-----+ +--------+ +-----+ 0.60 101 Digit 1 54 0.32 +-----+ +--------+ +-----+ NEVA Araujo. Electronically signed on 12/07/2023 10:22:46 AM This study was performed and interpreted by a service accredited by the Intersocietal AccreditationCommission (IAC/Vascular), www.intersocietal.org/vascular Report generated by [employer]. US Abd Aorta Order: [id number] Narrative VASCULAR ULTRASOUND REPORT NICOLLE COVINGTON : 1955 Study Date: 12/07/2023 9:07:34 AM Age: 68 years Tech: JAG Gender: F Referring MD: MITCHEL MARMOLEJO Site: [facility] Vascular [facility] Study performed: Aorta, Iliac, (bilateral) Indication [...] Intersocietal AccreditationCommission (IAC/Vascular), www.intersocietal.org/vascular Report generated by [employer]. XR Chest 2 Views Order: [id number] Status: Final result Visible to patient: Yes (seen) Next appt: Today at 10:45 AM in Rheumatology (Freeman Lopez DO) Details Reading Physician Reading Date Result Priority Delbert Puente MD [phone] 11/11/2023 Narrative & Impression IMPRESSION COMPARISON: 10/10/2023 FINDINGS: New 2-lead pacer in satisfactory position. No pneumothorax. Lungs are clear. The remainder of the examination is stable. Exam Ended: 11/11/23 19:41 Last Resulted: 11/11/23 19:54 XR Portable Chest 1 View Order: [id number] Status: Final result Visible to patient: Yes (seen) Next appt: Today at 10:45 AM in Rheumatology (Luke W Desilet, DO) Details Reading Physician Reading Date Result Priority Carlo Mejia MD [phone] 11/08/2023 Narrative & Impression IMPRESSION COMPARISON: None. FINDINGS: Normal cardiomediastinal silhouette and pulmonary vasculature. Lungs appear clear. No pneumothorax or pleural effusion. Surgical clips in the right neck. Exam Ended: 11/08/23 20:56 Last Resulted: 11/08/23 21:25 CT Angio Neck Head W IV Cont Order: [id number] Status: Final result Visible to patient: Yes (seen) Next appt: Today at 10:45 AM in Rheumatology (Luke W Desilet, DO) Details Reading Physician Reading Date Result Priority Olivier Cramer MD [phone] 11/08/2023 STAT Narrative & Impression IMPRESSION INDICATION: sams, htn, known aneurysms TECHNIQUE: CT angiogram of the [place] of [place] and CT angiogram of the [...] 15:23 CT Head WO IV Cont Order: [id number] Status: Final result Visible to patient: Yes (seen) Next appt: Today at 10:45 AM in Rheumatology (Freeman Lopez, ) Details Reading Physician Reading Date Result Priority Olivier Cramer MD [phone] 11/08/2023 STAT Narrative & Impression IMPRESSION COMPARISON: [...] Procedure Staff Interpreting Provider: FAUSTO GARCIA MD Director Weights And Measures: EE Ordering Provider: JOLEEN Cisneros Attending Physician: [...] vascular procedure in about 3 weeks at [facility] (aorta and iliac angiogram with possible [...] 71 minutes including, but not limited to, qfz-[id number]-face time spent reviewing records, counseling, and coordination of care. documented in this encounter Plan of Treatment Upcoming Encounters Date Type Department Care Team (Late st Contact Info) Description 03/06/2024 1:00 PM HOUSEMAID Appointment [facility] [address] [facility] [address] [place] [phone] 03/14/2024 2:00 PM HOUSEMAID Appointment [facility] Neurosurgery/Ortho Spine [address] [place] [address]. [place] [address] Brandon Kessler MD [address] [place] [address] 03/20/2024 11:15 AM HOUSEMAID Appointment Rheumatology at [facility] [place] [address] [facility] [address] [place] [address] Freeman Lopez DO [address] [place], [place] [address] documented as of this encounter Results * (ABNORMAL) Urinalysis Routine, Micro/Culture if Pos: Clean Catch (12/22/2023 12:00 PM CDT) Urine Culture Comment Urinalysis results do not meet criteria for urine culture reflex. 12/22/2023 12:10 PM CDT [facility] Urine Color Straw 12/22/2023 12:10 PM CDT [facility] Urine Clarity Clear Clear 12/22/2023 12:10 PM CDT [facility] Specific [place], Urine <=1.005(A) 1.005 - 1.030 12/22/2023 12:10 PM [facility] PH Urine 6.0 5.0 - 8.0 12/22/2023 12:10 PM T [facility] Protein, Urine Qual (mg/dL) Negative Neg/Trace 12/22/2023 12:10 PM T [facility] Glucose Urine Qual (mg/dL) Negative Negative 12/22/2023 12:10 PM [facility] Ketones, Urine (mg/dL) Negative Negative 12/22/2023 12:10 PM T [facility] Urobilinogen, Urine (EU/dL) 0.2 <2.0 12/22/2023 12:10 PM T [facility] Bilirubin Urine Negative Negative 12/22/2023 12:10 PM T [facility] Blood, Urine Negative Neg/Trace 12/22/2023 12:10 PM [facility] Nitrite Urine Negative Negative 12/22/2023 12:10 PM [facility] Leukocyte Est. Negative Negative 12/22/2023 12:10 PM T [facility] Urine Source Clean Catch 12/22/2023 12:10 PM [facility] Urine URINE SPECIMEN COLLECTION, CLEAN CATCH / Unknown Non-blood Collection / Unknown 12/22/2023 12:00 PM CDT 12/22/2023 12:00 PM CDT Luke W Desilet DO LAB_1 [facility] [address] [place] [address] * DNA Double Stranded Antibody IgG (ALBA) (12/22/2023 11:23 AM CDT) Anti-DNA Antibody IgG 15 <200 IU 12/27/2023 2:12 PM CDT [facility] Anti-DNA Antibody IgG Interpretation Negative Negative 12/27/2023 2:12 PM CDT [facility] Blood Venipuncture / Unknown 12/22/2023 11:23 AM CDT 12/22/2023 11:23 AM CDT Narrative [facility] - 12/27/2023 2:12 PM CDT The following results were obtained with the [employer] QUANTA Lite dsDNA ALBA. dsDNA values obtained with different manufacturers' assay methods may not be used interchangeably. Freeman Lopez DO LAB_1 Performing Organization Address [facility] de Phone Number [facility] [address] [place] [address] * C4 Complement (12/22/2023 11:23 AM CDT) C4 Complement 15.0 15.0 - 57.0 mg/dL 12/22/2023 4:07 PM CDT [facility] Blood Venipuncture / Unknown 12/22/2023 11:23 AM CDT 12/22/2023 11:23 AM CDT [facility] Performing Organization Address [facility] Phone Number [facility] [address] [place] [address] * C3 Complement (12/22/2023 11:23 AM CDT) C3 Complement 83 83 - 193 mg/dL 12/22/2023 4:07 PM CDT [facility] Blood Venipuncture / Unknown 12/22/2023 11:23 AM CDT 12/22/2023 11:23 AM CDT Freeman Lopez DO LAB_1 Performing Organization Address [facility] Phone Number [facility] [address] [place] [address] documented in this encounter Visit Diagnoses Diagnosis Systemic lupus erythematosus, unspecified SLE type, unspecified organ involvement status (HRC)- Primary High risk medication use Encounter for long-term (current) use of other medications Osteoporosis, unspecified osteoporosis type, unspecified pathological fracture presence (HRC) Essential hypertension (HRC) Unspecified essential hypertension Vaccine counseling Pre-op evaluation Preoperative examination, unspecified documented in this encounter Care Teams Health Sciences Program Coordinator Relationship Specialty Start Date End Date Dalton Esqueda MD [address] [place] [address] PCP - General Family Practice 06/23/23 documented as of this encounter
--- OUTSIDE RECORDS SUMMARY | 2024-01-30 08:33 | XMS_ITS | Encounter Summary ---
Author Organization [facility] Address [address] [place] [address] Care Team Providers Care Joy Loader Name Role Phone Dalton Esqueda MD Primary Care Provider [phone] Encounter Details Date Type Department Care Team (Late st Contact Info) Description 11/17/2023 E-Visit [facility] [address] [place] [address] [place]ia, [place] [address] Social History Tobacco Use Types Packs/Day Years Used Date Smoking Tobacco: Former Cigarettes Smokeless Tobacco: Never Alcohol Use Standard Drinks/Week Comments Not Currently 0 (1 standard drink = 0.6 oz pur e alcohol) [facility] Utilities Answer Date Recorded In the past 12 months has [facility] [employer], gas, oil, or water [email or web address] threatened to shut off services in your [...] Contact Info) Description 03/06/2024 1:00 PM MANAGER AUDIT Appointment [facility] [address] [facility] [address] [place] [address] 03/14/2024 2:00 PM MANAGER AUDIT Appointment [facility] Neurosurgery/Ortho Spine [address] [facility] [place] [address] Brandon Kessler MD [address] [place] [address] 03/20/2024 11:15 AM MANAGER AUDIT Appointment Rheumatology at [facility] [place] [address] [facility] [address] [place] [address] Desilet, Freeman W, DO [address] [place] [address] documented as of this encounter Visit Diagnoses Not on filedocumented in this encounter Care Teams Joy Loader Relationship Specialty Start Date End Date Dalton Esqueda MD [address] [place] [address] PCP - General Family Practice 06/23/23 documented as of this encounter
--- OUTSIDE RECORDS SUMMARY | 2024-01-30 08:33 | XMS_ITS | Encounter Summary ---
Author Organization [facility] Address [address] [place] [address] Care Team Providers Care Assembly Line Worker Name Role Phone Dalton Esqueda MD Primary Care Provider [phone] Reason for Referral * Medication Prior Authorization - Authorized Specialty Diagnoses / Procedures Referred By Jonathan mora [place]erred [place] [address] [place] [address] Referral ID Status Reason Start Date Expiration Date V isits Requested Visits Authorized [id number] Authorized 12/07/2023 04/24/2024 1 1 Encounter Details Date Type Department Care Team (Late st Contact Info) Description 12/07/2023 Notes/Orders [facility] Card[facility] [address] [place] [address]. [place], [place] [phone] Wilfredo Howell III, MD [address] [place] [address] Social History Tobacco Use Types Packs/Day Years Used Date Smoking Tobacco: Former Cigarettes Smokeless Tobacco: Never Alcohol Use Standard Drinks/Week Comments Not Currently 0 (1 standard drink = 0.6 oz pur e alcohol) [facility] Utilities Answer Date Recorded In the past 12 months has th e electric, gas, oil, or water [employer] threatened to shut off services in your [...] place to sleep or slept in a fpc (including now)? No 11/08/2023 Sex and Gender [...] st Contact Info) Description 03/06/2024 1:00 PM BURRER MARKER AXLE Appointment [facility] [address] Electrophysiology [address] [place] [address] 03/14/2024 2:00 PM BURRER MARKER AXLE Appointment [facility] Neurosurgery/Ortho Spine [address] [place] [address]. [place] [address] Brandon Kessler MD [address] [place] [address] 03/20/2024 11:15 AM BURRER MARKER AXLE Appointment Rheumatology at [facility] [place] [address] [address] [address] [place] [address] Desilet, Freeman W, DO [address] [place] [address] documented as of this encounter Visit Diagnoses Not on filedocumented in this encounter Care Teams Assembly Line Worker Relationship Specialty Start Date End Date Dalton Esqueda MD [address] [place] [address] PCP - General Family Practice 06/23/23 documented as of this encounter
--- OUTSIDE RECORDS SUMMARY | 2024-01-30 08:33 | XMS_ITS | Encounter Summary ---
Author Organization [facility] Address [address], [place] [address] Care Team Providers Care Director Of Software Development Name Role Phone Dalton Canales MD Primary Care Provider Reason for Referral * Consult/Transfer Care (Routine) - New Request Specialty Diagnoses / Procedures Referred By Jonathan mora Referred To Contact Diagnoses Hypertensive emergency Gabbie Blackman MD [address] [place] [address] [address] Referral ID Status Reason Start Date Expiration Date V isits Requested Visits Authorized [id number] New Request 11/13/2023 02/11/2024 1 1 Scheduling Instructions Your clinician has recommended an appointment with [facility] for your ongoing patient care. You can quickly make your appointment online at [employer]/schedule. You can also call [phone] for help scheduling your appointment. We suggest [...] Physical Therapy Eval and Stefanie Cuba, MD [address] [place] [address] Referral ID Status Reason Start Date Expiration Date V isits Requested Visits Authorized [id number] New Request 11/11/2023 02/09/2025 1 1 * Procedure/Equipment (Routine) - Incomplete Specialty Diagnoses / Procedures Referred By Contac t Referred To Contact Procedures XR Chest 2 Views Gilbert Grey MD [address] [place] [address] Referral ID Status Reason Start Date Expiration Date V isits Requested Visits Authorized [id number] Incomplete 11/11/2023 02/09/2025 1 1 * (Routine) - Incomplete Specialty Diagnoses / Procedures Referred By Contac t Referred To Contact Procedures ECG 12 Lead Inpatient, On post-op day #1 Gilbert Grey MD [address] [place] [address] Referral ID Status Reason Start Date Expiration Date V isits Requested Visits Authorized [id number] Incomplete 11/11/2023 02/09/2025 1 1 * (Routine) - Incomplete Specialty Diagnoses / Procedures Referred By Contac t Referred To Contact Procedures ECG 12 Lead Inpatient Now Gilbert Grey MD [address] [place] [address] Referral ID Status Reason Start Date Expiration Date V isits Requested Visits Authorized [id number] Incomplete 11/11/2023 02/09/2025 1 1 * (Routine) - New Request Specialty Diagnoses / Procedures Referred By Contac t Referred To Contact Procedures Permanent Pacemaker Implantation (Inpatient) Sharona White APRN, DOM [address] [place] [address] Referral ID Status Reason Start Date Expiration Date V isits Requested Visits Authorized [id number] New Request 11/10/2023 02/08/2025 1 1 * (Routine) - Incomplete Specialty Diagnoses / Procedures Referred By Contac t Referred To Contact Procedures STAT ECG 12 Lead Inpatient Stefanie Perez MD [address] [place] [address] Referral ID Status Reason Start Date Expiration Date V isits Requested Visits Authorized [id number] Incomplete 11/10/2023 02/08/2025 1 1 * Consult/Transfer Care (Routine) - New Request Specialty Diagnoses / Procedures Referred By Contac t Referred To Contact Neurosurgery Diagnoses Brain aneurysm Lemuel Moses DO [address] [place] [address] [facility] [address] [place] [address]. [place] [address] Referral ID Status Reason Start Date Expiration Date V isits Requested Visits Authorized [id number] New Request 11/10/2023 02/08/2025 1 1 Scheduling Instructions Your clinician has recommended an appointment with [facility]. You may call [phone] to schedule your appointment. We suggest you [...] GXT Stress Test Wilfredo Howell III, MD [address] [place] [address] Referral ID Status Reason Start Date Expiration Date V isits Requested Visits Authorized [id number] New Request 11/10/2023 02/08/2025 1 1 * Procedure/Equipment (Routine) - New Request Specialty Diagnoses / Procedures Referred By Contac t Referred To Contact Procedures Echocardiogram Crow Howell PA-C [address] [place] [address] Referral ID Status Reason Start Date Expiration Date V isits Requested Visits Authorized [id number] New Request 11/08/2023 02/06/2025 1 1 * (Routine) - Incomplete Specialty Diagnoses / Procedures Referred By Contac t Referred To Contact Procedures ECG 12 Lead Inpatient Crow Howell PA-C [address] [place] [address] Referral ID Status Reason Start Date Expiration Date V isits Requested Visits Authorized [id number] Incomplete 11/08/2023 02/06/2025 1 1 * Procedure/Equipment (Routine) - Incomplete Specialty Diagnoses / Procedures Referred By Contac t Referred To Contact Procedures XR Portable Chest 1 View Crow Howell PA-C [address] [place] [address] Referral ID Status Reason Start Date Expiration Date V isits Requested Visits Authorized [id number] Incomplete 11/08/2023 02/06/2025 1 1 * Procedure/Equipment (Routine) - Incomplete Specialty Diagnoses / Procedures Referred By Contac t Referred To Contact Procedures CT Angio Neck Head W IV Cont Kavon Vázquez DO [address] [place] [address] Referral ID Status Reason Start Date Expiration Date V isits Requested Visits Authorized [id number] Incomplete 11/08/2023 02/06/2025 1 1 * Procedure/Equipment (Routine) - Incomplete Specialty Diagnoses / Procedures Referred By Contac t Referred To Contact Procedures CT Head WO IV Kavon Saravia DO [address] [place] [address] Referral ID Status Reason Start Date Expiration Date V isits Requested Visits Authorized [id number] Incomplete 11/08/2023 02/06/2025 1 1 * (Routine) - Incomplete Specialty Diagnoses / Procedures Referred By Contac t Referred To Contact Procedures ECG 12 Lead Jenaro Robles MD [address] [place] [address] Referral ID Status Reason Start Date Expiration Date V isits Requested Visits Authorized [id number] Incomplete 11/08/2023 02/06/2025 1 1 Reason for [...] Expiration Date Visits Re quested Visits Authorized [id number] 1 1 Encounter Details Date Type Department Care Team (Late st Contact Info) Description 11/08/2023 12:45 PM CDT - 11/13/2023 11:30 AM CDT Hospital Encounter Confucianism 2NS-MS ICU [address] [facility] [place], [place] [address] Kavon Vázquez DO [address] [place], [place] [address] Christian Carter MD [address] [place], [place] [phone] Crow Howell PA-C [address] [place] [address] Filomena Lopes DO [address] [place], [place] [phone] Stefanie Perez MD [address] [place], [place] [phone] Gabbie Blackman MD [address] [place] [id number] Chronic pain syndrome (Primary Dx); Hypertensive emergency; Cerebral aneurysm without rupture; Acute nonintractable headache, unspecified headache type; Brain aneurysm Discharge Disposition: Home Social History Tobacco Use Types Packs/Day Years Used Date Smoking Tobacco: Former Cigarettes Smokeless Tobacco: Never Alcohol Use Standard Drinks/Week Comments Not Currently 0 (1 standard drink = 0.6 oz pur e alcohol) [facility] Utilities Answer Date Recorded In the past 12 months has Táximo, gas, oil, or water [employer] threatened to shut off services in your [...] dose increased 6.25bid Post hospital dischage f/u a auxiliary 5-7days Electrophysiology Cardilogy cardiology No Pending labs [...] stressed Prior Living Situation: Patient lives in [place], she is alone, her daughter of addiction, [...] guarding Ext: no clubbing, cyanosis, or edema WALL STEAMER: no FND Labs & Imaging during course [...] known aneurysms TECHNIQUE: CT angiogram of the [place] and CT angiogram of the [...] every week. Take 30 minutes before first xuig-imigi-ruqkmngczm on mornings. Avoid lying down for 30 [...] Your Medications These medications were sent to [facility] [address] [place] [address] [address] alendronate 70 MG tablet carvedilol 3.125 MG tablet Outpatient follow up appointments: No follow-up provider specified. Future Appointments Date Time Provider Department Center 11/22/2023 8:45 AM [facility], [facility] [facility] [place] [address] 12/22/2023 10:45 AM Desilet, Freeman Fong, DO [facility] PN PRIYA Blackman MD, [id number] Hospitalist//[facility] For full discharge orders and instructions, please see the after visit summary for this hospitalization. See the electronic medical record for full laboratory and diagnostic test results. documented in this encounter Discharge Instructions * Attachments The following attachments cannot be sent through Care Everywhere. * Biventricular Pacemaker: Post-op ([facility]) documented in this encounter Medications at Time of Discharge Medication Sig Dispensed Refills Start Date End Date acetaminophen (TYLENOL 8 HOUR ARTHRITIS PAIN) 650 MG controlled release tablet Take 1 Tablet (650 mg) by mouth every 8 hours as needed. alendronate (FOSAMAX) 70 MG tablet Take 1 Tablet (70 mg) by mouth once every week. Take 30 minutes before first ezuc-zmmmo-lkvizoqaqf on mornings. Avoid lying down for 30 minutes. 12 Tablet 3 11/13/2023 11/12/2024 aspirin EC 81 MG enteric coated tablet Take 1 Tablet (81 mg) by mouth daily. cholecalciferol (VITAMIND3) 50 MCG (2000 UT) tablet Take 1 Tablet (2,000 Units) by mouth daily. drug not in computer Take by mouth daily. ProOmega Curcumin by RxAdvance: Take 3 capsules by mouth daily ezetimibe [...] 08/25/2024 tacrolimus (PROTOPIC) 0.1 % ointmentIndications:L upus Apply topically two times a day. to [...] up tomorrow Gabbie Blackman MD,(charges based on [facility] complexity of cares:High) Subjective Today: Doing well Shower Her granddaughter can pick her up tomorrow Denied any dizziness Blood pressure medication discussed with her Compliance stressed to her Care disussed with team and involved consultants Prior Living Situation: Patient lives in [place], she is alone, her daughter of addiction, [...] guarding Ext: no clubbing, cyanosis, or edema WALL STEAMER: no FND Daily Med in Hospital: aspirin [...] known aneurysms TECHNIQUE: CT angiogram of the [place] and CT angiogram of the [...] Cardiology Progress Note 11/12/2023 Nicolle Martinez Jose [id number] Date of Admission:11/08/2023 SUBJECTIVE: Feels better, no [...] Current weight: Weight: 124 lb 12.5 oz (00100 g) Admit weight: Weight: 124 lb 12.5 oz (66042 g) I & O over last 24 [...] a ride home until tomorrow. Transfer to [address] [place] [address]. -Pacemaker clinic f/u scheduled -Left message with cardiology tube sizer operator to arrange cardiology clinic f/u 3-4 weeks [...] dnr dni Disposition: ok to transfer to [address] [place] [address]/[facility] , needs a few more days for bp titration, will also have PT OT see Notes reviewed: cardiology, Discussed with: Dr Howell Medical decision making high complexity -the patient is receiving a drug therapy requiring monitoring :intermittent iv nicardipine Stefanie Perez MD Hospitalist * Vidya Prabhakar, WEB SERVICES MANAGER, [facility] - 11/11/2023 3:22 PM CDT [facility] Care Management Inpatient Note Plan: Expected Discharge Date: TBD Anticipated Discharge Plan: TBD Transportation: TBD Barriers to Discharge: medical stability Prior Living Situation: Alone, Home - multilevel Advanced Directive on File: No Additional Comments: Hospital Care Management was consulted to assist with discharge planning. Chart reviewed. Patient arrives from [facility] [place] for evaluation of hypertension. Patient has a [...] LGSW 3:22 PM 11/11/2023 * Stefanie Keller, SHERRY - 11/11/2023 3:09 PM CDT Nutrition Assessment Screening: Reason For Assessment: dietitian initiated (LOS day 4-poor intake noted) Current Nutrition Assessment: Pt admittd for evaluation of high blood pressure. Hx includes HTN, HLD, brain aneurysm, lupus. Pt reports intolerance to soy and gluten which has significantly limited her meal options in hospital. 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 Will provide supplement TID at mealtimes. Subjective Information Subjective Information: Met w/ pt at bedside this AM. 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 I encouraged pt to continue to work with diet techs on meal options. In addition will dayabijan Alexandrea Infer Standard supplement at mealtimes TID as a [...] Encourage intake of meals as able; Alexandrea Infer Standard 1.4 supplement w/ meals TID; monitor intake, wt, labs. Will follow up with pt in 3-5 days. See full nutrition assessment in the Patient Story report or Nutrition Assessment flowsheet. Stefanie Keller, MS, RDN, LD, CNSC (Contact Dietitian assigned to patient's floor using Audit Verify) * Wilfredo Howell III, MD - 11/11/2023 2:35 PM CDT Cardiology Progress Note 11/11/2023 Nicolle Martinez [facility] [id number] Patient Active Problem List Diagnosis Fibromyalgia Hypertension [...] / SURGERY O: Patient will go to [facility] for Pacemaker placement. D: Patient is alert and oriented x 4. Last recorded vitals: Temp: 36.9 ??C (98.4 ??F) (11/11/23 1200) Pulse: (!) 55 (11/11/23 1300) Resp: 13 (11/11/23 1300) BP: (!) 145/63 (11/11/23 1300) SpO2: 97 % (11/10/23 0800) A: Pre-procedure check list completed. Consent on chart, signed: No R: Awaiting transport. * Traci Francis APRN, CHIP FRIER - 11/11/2023 11:42 AM CDT Name: Nicolle Covington : 1955 INPATIENT ELECTROPHYSIOLOGY PROGRESS NOTE Attending: Stefanie Perez MD Admission date: 11/08/2023 Date of service: 11/11/2023 Vp Hr Diversity: Dr. Connolly ASSESSMENT/PLAN: 1. Symptomatic sick sinus [...] Platelets 238 11/10/2023 Traci Francis APRN, DOM, CHIP FRIER Electrophysiology * Ai Thayer RN - 11/11/2023 [...] Procedure Abnormality Status --------- ------ Complete Blood Count-W/...[[id number]] Abnormal Final result Please view results for [...] dni Disposition: ok to transfer to [address] [facility] Notes reviewed:neurology, cardiology, er Discussed with: Dr Howell Medical decision making high complexity -the patient is receiving a drug therapy requiring monitoring : iv nicardipine Stefanie Perez MD Hospitalist * Wilfredo Howell III, MD - 11/10/2023 9:14 AM CDT Cardiology Progress Note 11/10/2023 Nicolle Covington [id number] Patient Active Problem List Diagnosis Fibromyalgia Hypertension [...] voice recognition software. Occasional wrong word or 'laqxp-g-piht' substitutions may have occurred due to software's [...] CARDIAC ELECTROPHYSIOLOGY PROCEDURE REPORT Cardiac Electrophysiology Service [facility] [place] Cardiac Vp Hr Diversity: Gilbert Grey MD Date: 11/11/2023 PROCEDURES PERFORMED: [...] Dianne, model [id number] New Right Atrial Lead: Medtronic model [id number] Sensed P waves 4.1 mV, pacing threshold 1.2 V @ 0.5 ms, impedance 898 ohms. New Right Ventricular Lead: Medtronic model [id number] Sensed R waves 9.7 mV, pacing threshold [...] CDTAssociated Order(s): CARE MANAGEMENT CONSULT - [facility] Care Management Inpatient Note Plan: Expected [...] of cerebral aneurysm patient was admitted to [facility]. IN the emergency center BP was elevated to 210/71, BNP mildly elevated, troponin negative. CTA head and neck showing some vertebral artery atherosclerotic disease, what appear to bemostly stable aneurysms, 1 with the right middle cerebral artery, 1 with the left vertebral artery.No large vessel occlusion on CT head. Patient was admitted to [facility] and initiated on nicardipine drip. On 11/08 [...] recently transferred all of her care to [facility]. She notes that prior to this summer, she could tolerate going to the pool 4-5 times per week to [employer]. She remained active with daily tasks around [...] Resource Strain: Low Risk (03/24/2023) Received from [employer] [facility] Resource Strain Difficulty of Paying Living [...] with Dr. Connolly. Sharona White APRN, CNP [facility] Electrophysiology Cardiac Electrophysiology Physician Note I performed a consultative history and physical examination on the patient and discussed her management with Sharona White CNP. I reviewed and edited her note as documented above and agree with the documented findings, assessment, and plan of care. The findings and plan were reviewed and discussed with the patient. Travis Connolly MD Cardiac Vp Hr Diversity Please note that the above medical documentation was created using voice recognition software and may contain typographical errors. * Vidya Prabhakar MSW, BICYCLE MECHANIC - 11/09/2023 1:52 PM CDTAssociated Order(s): CARE MANAGEMENT CONSULT - [facility] Care Management Inpatient Note Plan: Expected Discharge Date: TBD Anticipated Discharge Plan: TBD Transportation: TBD Barriers to Discharge: medical stability Prior Living Situation: Alone, Home - multilevel Advanced Directive on File: No Additional Comments: Hospital Care Management was consulted to assist with discharge planning. Chart reviewed. Patient arrives from [facility] for evaluation of hypertension. Patient [...] included. Cardiology Consult Note 11/09/2023 Nicolle Covington [id number] Requesting physician: Dr. Filomena Lopes MD Primary physician: Dr. Dalton Canales MD Chief complaint: Hypertensive urgency/emergency History of Present Illness: I had the opportunity to visit with Nicolle for a cardiology consultation at [facility] today. She is a 68-year-old [...] cm). Weight as of 10/13/23: 126 lb (47071 g). I & O over last 24 [...] from the original note were not included. [facility]. Neurology Consultation Note () Date of [...] ischemic. [facility] but has [...] mg 1,000 mg Oral BID nystatin (MYCOSTATIN) [id number] UNIT/GM topical powder Topical BID PRN pantoprazole DR (PROTONIX) tablet 40 mg 40 mg Oral Daily at 6 am polyethyl-propylene glycol (SYSTANE) 0.4-0.3 % ophthalmic solution 1 Drop 1 Drop Both Eyes Q1H PRN predniSONE (DELTASONE) tablet 7.5 mg 7.5 mg Oral Daily sodium chloride (OCEAN) 0.65 % nasal solution 1 [place] 1 [place] Both Nostrils Q2H PRN sodium chloride 0.9% [...] Resource Strain: Low Risk (03/24/2023) Received from [facility] [employer] [facility] [employer] Resource Strain Difficulty of Paying Living [...] groups bilaterally. No pronator drift. Coordination: Intact zcitlx-qy-uwqy. Finger tapping rapid and rhythmic. Sensory: Intact [...] spent in counseling and coordinating care. A sign language translator was not used during this exam. Report Completed by: Lemuel Moses DO Neurology --- End of Report --- documented in this encounter OR Notes * H&P - Crow Howell PA-C - 11/08/2023 4:[address] [facility] Medicine History and Physical Date of Service: 11/08/2023 PCP: Dalton Canales MD HPI: Nicolle Covington is a 68 y.o. female with PMH of hypertension, hyperlipidemia, brain aneurysm and lupus who presents for evaluation of high blood pressure. Patient reports headaches for the past couple of weeks. She has had difficulty managing her high blood pressure as an outpatient. She saw On successfully and was taken off lisinopril and [...] every week. Take 30 minutes before first aiiv-nwapo-lnyohcerao. Avoid lying down for 30 minutes. aspirin [...] sensation to bilateral upper and lower extremities, zvjate-vp-ualn without any dysmetria or ataxia, dvin-sz-ruze without any ataxia Results reviewed in Epic [...] hypertensive emergency and plan for admission to [address] [place] [address] and nicardipine drip. 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 Lanceing based on: Time Total time for the visit was 75 minutes including, but not limited to, dtz-khqq-rj-face time spent reviewing records, counseling, and coordination of care. This note was created with voice recognition software which may have resulted in unintended word substitutions. Crow Howell PA-C [facility] Medicine Pager: [phone] (also on Amion) documented in this encounter [...] QT 380 ms QTc 373 ms P Orient 65 degrees R Orient 66 degrees T Orient [address] Angio Neck Head W IV Cont Final Result IMPRESSION INDICATION: sams, htn, known aneurysms TECHNIQUE: CT angiogram of the [place] and CT angiogram of the [...] P-R Interval QRS Duration QT QTc P Orient R Orient T Orient 11/08/23 13:08:39 11/08/23 15:53:17 58 58 170 [...] Medical Decision Making / Diagnosis MIPS None [facility] Nicolle Covington is a 68 y.o. female [...] and the provider's statements to me. 11/08/2023 [facility] Portions of this medical record were completed by a scribe. UPON MY REVIEW AND AUTHENTICATION BY ELECTRONIC SIGNATURE, this confirms (a) I performed the applicable clinical services, and (b) the record is accurate. Kavon Vázquez DO 11/08/231811 documented in this encounter Plan of Treatment Upcoming Encounters Date Type Department Care Team (Late st Contact Info) Description 03/06/2024 1:00 PM MOLDING PLASTERER Appointment [facility] [place] [address] Electrophysiology [address] [place] [phone] 03/14/2024 2:00 PM MOLDING PLASTERER Appointment [facility] Neurosurgery/Ortho Spine [address] [place] [address] Brandon Kessler MD [address] [place] [address] 03/20/2024 11:15 AM MOLDING PLASTERER Appointment Rheumatology at [facility] [place] [address] [address] [address] [place] [address] DesiletFreeman W, DO [address] [place] [address] Scheduled Orders Name Type Priority Associated Diagnoses [...] - 145 mmol/L 11/13/2023 5:33 AM CDT [facility] Potassium 4.5 3.5 - 5.1 mmol/L 11/13/2023 5:33 AM CDT [facility] Chloride 110(H) 98 - 109 mmol/L 11/13/2023 5:33 AM CDT [facility] CO2 21 20 - 29 mmol/L 11/13/2023 5:33 AM CDT [facility] Anion Gap 7 6 - 16 mmol/L 11/13/2023 5:33 AM CDT [facility] Calcium 9.6 8.4 - 10.4 mg/dL 11/13/2023 5:33 AM CDT [facility] BUN 36(H) 7 - 26 mg/dL 11/13/2023 5:33 AM CDT [facility] Creatinine 1.29(H) 0.55 - 1.02 mg/dL 11/13/2023 5:33 AM CDT [facility] Glucose 90 70 - 100 mg/dL 11/13/2023 5:33 AM CDT [facility] Comment:The given reference range is for the fasting state. Non-fasting reference range for glucose is 70 - 180 mg/dL. GFR, Estimated 45(L) >60 mL/min/1.7 3m2 11/13/2023 5:33 AM CDT [facility] Blood Venipuncture / Unknown 11/13/2023 4:43 AM CDT 11/13/2023 5:01 AM CDT Narrative [facility] - 11/13/2023 5:33 AM CDT The National Kidney Disease Education Program suggests measuring Cystatin C in patients with eGFRcrea of 45 to 59 ml/min/1.73^2 who do not have other markers of kidney damage (i.e. elevated urine Albumin/Creatinine Ratio or a prior Cystatin C confirming the presence of chronic kidney disease). Stefanie Perez MD LAB_1 Performing Organization Address [facility] Co de Phone Number [facility] [address] * ECG 12 Lead Inpatient, On post-op day #1 (11/12/2023 6:51 AM CDT) Ventricular Rate 62 BPM MUSE GHP Atrial Rate 62 BPM MUSE GHP P-R Interval 204 ms MUSE GHP QRS Duration 86 ms MUSE GHP QT 414 ms MUSE GHP QTc 420 ms MUSE GHP P Orient 22 degrees MUSE GHP R Orient 59 degrees MUSE GHP T Orient 78 degrees MUSE GHP 11/12/2023 6:51 AM CDT Narrative [facility] - 11/12/2023 1:46 PM CDT Atrial-paced rhythm Septal infarct (cited on or before 08-NOV-2023) Abnormal ECG When compared with ECG of 11-NOV-2023 17:58, Questionable change in initial forces of Anterior leads Confirmed by Gurpreet Orteag ([id number]) on 11/12/2023 1:46:55 PM Procedure Note Gurpreet Ortega DO - 11/12/2023 Atrial-paced rhythm Septal infarct (cited on or before 08-NOV-2023) Abnormal ECG When compared with ECG of 11-NOV-2023 17:58, Questionable change in initial forces of Anterior leads Confirmed by Gurpreet Ortega ([id number]) on 11/12/2023 1:46:55 PM Gilbert Grey MD PN ECG ORDERABLES Performing Organization Address [facility] Co de Phone Number MUSE G[facility] [address] [place] [address] * (ABNORMAL) Basic Metabolic Panel (11/12/2023 4:35 AM CDT) Sodium 135(L) 136 - 145 mmol/L 11/12/2023 5:26 AM CDT [facility] Potassium 4.7 3.5 - 5.1 mmol/L 11/12/2023 5:26 AM CDT [facility] Chloride 108 98 - 109 mmol/L 11/12/2023 5:26 AM CDT [facility] CO2 20 20 - 29 mmol/L 11/12/2023 5:26 AM CDT [facility] Anion Gap 7 6 - 16 mmol/L 11/12/2023 5:26 AM CDT [facility] Calcium 9.2 8.4 - 10.4 mg/dL 11/12/2023 5:26 AM CDT [facility] BUN 37(H) 7 - 26 mg/dL 11/12/2023 5:26 AM CDT [facility] Creatinine 1.07(H) 0.55 - 1.02 mg/dL 11/12/2023 5:26 AM CDT [facility] Glucose 87 70 - 100 mg/dL 11/12/2023 5:26 AM CDT [facility] Comment:The given reference range is for the fasting state. Non-fasting reference range for glucose is 70 - 180 mg/dL. GFR, Estimated 56(L) >60 mL/min/1.7 3m2 11/12/2023 5:26 AM CDT [facility] Blood Venipuncture Butterfly / Unknown 11/12/2023 4:35 AM CDT 11/12/2023 5:04 AM CDT Narrative [facility] - 11/12/2023 5:26 AM CDT The National Kidney Disease Education Program suggests measuring Cystatin C in patients with eGFRcrea of 45 to 59 ml/min/1.73^2 who do not have other markers of kidney damage (i.e. elevated urine Albumin/Creatinine Ratio or a prior Cystatin C confirming the presence of chronic kidney disease). Stefanie Perez MD LAB_1 [facility] [address] [place] [address], [place] * XR Chest 2 Views (11/11/2023 7:41 [...] GHP QTc 435 ms MUSE GHP P Orient 10 degrees MUSE GHP R Orient 61 degrees MUSE GHP T Orient 62 degrees MUSE GHP 11/11/2023 5:58 PM [...] ECG ORDERABLES [facility] [address] [place] [address] * Permanent Pacemaker Implantation (Inpatient) (11/11/2023 3:24 PM CDT) Narrative PROS[facility]V - 11/11/2023 3:24 PM CDT Gilbert Grey MD ? 11/11/2023 ??3:26 PM CARDIAC ELECTROPHYSIOLOGY PROCEDURE REPORT Cardiac Electrophysiology Service [facility] Cardiac Vp Hr Diversity: ??Gilbert Grey MD Date: 11/11/2023 PROCEDURES PERFORMED: [...] PARAMETERS: New Permanent Pacemaker Pulse Generator: Medtronic Cotter, model [id number] New Right Atrial Lead: ??Medtronic model 301191 Sensed P waves 4.1 mV, pacing threshold 1.2 V @ 0.5 ms, impedance 898 ohms. New Right Ventricular Lead: ??Medtronic model 700266 Sensed R waves 9.7 mV, pacing threshold [...] MD Cardiac Electrophysiology Service Sharona White APRN, CNP PN ELECTROPHYSIO LOGY ORDERABLE PROSOLV [address] [place] [address] * (ABNORMAL) Basic Metabolic Panel (11/11/2023 4:48 AM CDT) Sodium 135(L) 136 - 145 mmol/L 11/11/2023 5:21 AM CDT [facility] Potassium 3.8 3.5 - 5.1 mmol/L 11/11/2023 5:21 AM CDT [facility] Chloride 106 98 - 109 mmol/L 11/11/2023 5:21 AM CDT [facility] CO2 20 20 - 29 mmol/L 11/11/2023 5:21 AM CDT [facility] Anion Gap 9 6 - 16 mmol/L 11/11/2023 5:21 AM CDT [facility] Calcium 9.9 8.4 - 10.4 mg/dL 11/11/2023 5:21 AM CDT [facility] BUN 38(H) 7 - 26 mg/dL 11/11/2023 5:21 AM CDT [facility] Creatinine 1.21(H) 0.55 - 1.02 mg/dL 11/11/2023 5:21 AM CDT [facility] Glucose 84 70 - 100 mg/dL 11/11/2023 5:21 AM CDT [facility] Comment:The given reference range is for the fasting state. Non-fasting reference range for glucose is 70 - 180 mg/dL. GFR, Estimated 49(L) >60 mL/min/1.7 3m2 11/11/2023 5:21 AM CDT [facility] Blood Venipuncture / Unknown 11/11/2023 4:48 AM CDT 11/11/2023 4:52 AM CDT Narrative [facility] - 11/11/2023 5:21 AM CDT The National Kidney Disease Education Program suggests measuring Cystatin C in patients with eGFRcrea of 45 to 59 ml/min/1.73^2 who do not have other markers of kidney damage (i.e. elevated urine Albumin/Creatinine Ratio or a prior Cystatin C confirming the presence of chronic kidney disease). Stefanie Perez MD LAB_1 [facility] [address] [place] [address], [facility] * STAT ECG 12 Lead Inpatient (11/10/2023 2:08 PM CDT) Ventricular Rate 39 BPM MUSE GHP Atrial Rate 50 BPM [facility]USE GHP P-R Interval 170 ms MUSE GHP QRS Duration 86 ms MUSE GHP QT 458 ms MUSE GHP QTc 368 ms MUSE GHP P Orient 53 degrees MUSE GHP R Orient 71 degrees MUSE GHP T Orient 70 degrees MUSE GHP 11/10/2023 2:08 PM [...] [facility] de Phone Number [facility] [address] [place] [phone] * INPATIENT TELEMETRY MONITORING (11/10/2023 9:18 AM CDT) [facility] TELE P-R INTERVAL 0.17 M[facility] TELE QRS DURATION 0.15 [facility] TELE R-R INTERVAL 1.39 [facility] TELE QT 0.50 [facility] TELE INTERPRETATION Sinus Fortino Ирина Scott RN MUSE GHP 11/10/2023 9:18 AM CDT Narrative [facility] - 11/10/2023 10:53 AM CDT Sinus Fortino ??Ирина Scott RN Interface Provider EKG Performing Organization Address [facility] de Phone Number [facility] [address] [place] [address] * GXT Stress Test (11/10/2023 7:52 AM [...] 02:21 PM Wilfredo Howell III, MD ET ALEX ORDERABL ES Performing Organization Address [facility] Phone Number PROSOLV [address] [place] [address] * TSH with reflex to fT4 (not for treatment monitoring) (11/10/2023 4:50 AM CDT) TSH, Reflex 0.90 0.30 - 4.50 uIU/mL 11/10/2023 6:20 PM CDT [facility] Blood Venipuncture / Unknown 11/10/2023 4:50 AM CDT 11/10/2023 5:26 AM CDT Sharona White [employer] LAB_1 [facility] [address] [place] [address], [facility] * (ABNORMAL) Complete Blood Count-W/Diff (11/10/2023 4:50 AM CDT) WBC 5.8 3.5 - 10.5 x10(9)/L 11/10/2023 5:28 AM CDT [facility] RBC 3.84(L) 3.90 - 5.03 x10(12)/L 11/10/2023 5:28 AM CDT [facility] Hemoglobin 12.0 12.0 - 15.5 g/dL 11/10/2023 5:28 AM CDT [facility] HCT 35.8 34.9 - 44.5 % 11/10/2023 5:28 AM CDT [facility] MCV 93.2 80.0 - 100.0 fL 11/10/2023 5:28 AM CDT [facility] MCH 31.3 27.6 - 33.3 pg 11/10/2023 5:28 AM CDT [facility] MCHC 33.5 31.5 - 35.2 g/dL 11/10/2023 5:28 AM CDT [facility] RDW 13.5 11.9 - 15.5 % 11/10/2023 5:28 AM CDT [facility] Platelets 238 150 - 450 x10(9)/L 11/10/2023 5:28 AM CDT [facility] Automated NRBC 0 <=0 /100 WBC 11/10/2023 5:28 AM CDT [facility] Neutrophil Absolute 2.5 1.7 - 7.0 10(9)/L 11/10/2023 5:28 AM CDT [facility] Lymphocyte Absolute 2.3 1.0 - 4.8 10(9)/L 11/10/2023 5:28 AM CDT [facility] Monocyte Absolute 0.7 0.2 - 0.9 10(9)/L 11/10/2023 5:28 AM CDT [facility] Eosinophil Absolute 0.1 0.0 - 0.5 10(9)/L 11/10/2023 5:28 AM CDT [facility] Basophil Absolute 0.0 0.0 - 0.3 10(9)/L 11/10/2023 5:28 AM CDT [facility] Immature Granulocyte % 0.7(H) 0.0 - 0.5 % 11/10/2023 5:28 AM CDT [facility] Blood Venipuncture / Unknown 11/10/2023 4:50 AM CDT 11/10/2023 5:25 AM CDT Filomena Lopes DO LAB_1 [facility] [address] * (ABNORMAL) Basic Metabolic Panel (IN AM) (11/10/2023 4:50 AM CDT) Sodium 138 136 - 145 mmol/L 11/10/2023 5:58 AM CDT [facility] Potassium 4.1 3.5 - 5.1 mmol/L 11/10/2023 5:58 AM CDT [facility] Chloride 107 98 - 109 mmol/L 11/10/2023 5:58 AM CDT [facility] CO2 23 20 - 29 mmol/L 11/10/2023 5:58 AM CDT [facility] Anion Gap 8 6 - 16 mmol/L 11/10/2023 5:58 AM CDT [facility] Calcium 9.7 8.4 - 10.4 mg/dL 11/10/2023 5:58 AM CDT [facility] BUN 40(H) 7 - 26 mg/dL 11/10/2023 5:58 AM CDT [facility] Creatinine 1.18(H) 0.55 - 1.02 mg/dL 11/10/2023 5:58 AM CDT [facility] Glucose 81 70 - 100 mg/dL 11/10/2023 5:58 AM CDT [facility] Comment:The given reference range is for the fasting state. Non-fasting reference range for glucose is 70 - 180 mg/dL. GFR, Estimated 50(L) >60 mL/min/1.7 3m2 11/10/2023 5:58 AM CDT [facility] Blood Venipuncture / Unknown 11/10/2023 4:50 AM CDT 11/10/2023 5:26 AM CDT Narrative [facility] - 11/10/2023 5:58 AM CDT The National Kidney Disease Education Program suggests measuring Cystatin C in patients with eGFRcrea of 45 to 59 ml/min/1.73^2 who do not have other markers of kidney damage (i.e. elevated urine Albumin/Creatinine Ratio or a prior Cystatin C confirming the presence of chronic kidney disease). Filomena Lopes DO LAB_1 [facility] [address] * INPATIENT TELEMETRY MONITORING (11/09/2023 10:28 AM CDT) TELE INTERPRETATION [facility]HP 11/09/2023 10:2 8 AM CDT Narrative [facility] - 11/09/2023 10:28 AM CDT [id number] Interface Provider EKG Performing Organization Address [facility] Co de Phone Number [facility] [address] [place] [phone] * INPATIENT TELEMETRY MONITORING (11/09/2023 7:45 AM [...] [facility] Co de Phone Number [facility] [address] [place] [address] * Echocardiogram (11/09/2023 6:53 AM CDT) 11/09/2023 6:53 AM CDT Narrative PN ECHO - 11/09/2023 8:35 AM CDT Procedure type: ? ECHOCARDIOGRAM Procedure ? 11/09/2023 6:53 AM date/time: [facility] Accession #: ?[id number] INDICATIONS Dyspnea/SOB. SUMMARY: Left ventricular ejection fraction [...] Staff Interpreting Provider: ?? NILTON GARCIA MD Flag Signaler: ? EE Ordering Provider: ? JOLEEN Cisneros [...] Procedure Staff Interpreting Provider: NILTON GARCIA MD Flag Signaler: Ordering Provider: JOLEEN Cisneros Attending Physician: KAVON VÁZQUEZ DO Electronically signed by NILTON GARCIA MD (Interpreting Provider) on at 8:34 AM Crow Howell PA-C ET ECHO ORDERABLES PN ECHO * Complete Blood Count-No Diff (11/09/2023 4:59 AM CDT) [facility] WBC 6.1 3.5 - 10.5 x10(9)/L 11/09/2023 5:21 AM CDT [facility] RBC 3.98 3.90 - 5.03 x10(12)/L 11/09/2023 5:21 AM CDT [facility] Hemoglobin 12.0 12.0 - 15.5 g/dL 11/09/2023 5:21 AM CDT [facility] HCT 36.7 34.9 - 44.5 % 11/09/2023 5:21 AM CDT [facility] MCV 92.2 80.0 - 100.0 fL 11/09/2023 5:21 AM CDT [facility] MCH 30.2 27.6 - 33.3 pg 11/09/2023 5:21 AM CDT [facility] MCHC 32.7 31.5 - 35.2 g/dL 11/09/2023 5:21 AM CDT [facility] RDW 13.4 11.9 - 15.5 % 11/09/2023 5:21 AM CDT [facility] Platelets 236 150 - 450 x10(9)/L 11/09/2023 5:21 AM CDT [facility] Automated NRBC 0 <=0 /100 WBC 11/09/2023 5:21 AM CDT [facility] Blood Venipuncture / Unknown 11/09/2023 4:59 AM CDT 11/09/2023 5:17 AM CDT Crow Howell PA-C LAB_1 [facility] [address] * (ABNORMAL) Basic Metabolic Panel (11/09/2023 4:59 AM CDT) Sodium 138 136 - 145 mmol/L 11/09/2023 5:43 AM CDT [facility] Potassium 4.0 3.5 - 5.1 mmol/L 11/09/2023 5:43 AM CDT [facility] Chloride 105 98 - 109 mmol/L 11/09/2023 5:43 AM CDT [facility] CO2 26 20 - 29 mmol/L 11/09/2023 5:43 AM CDT [facility] Anion Gap 7 6 - 16 mmol/L 11/09/2023 5:43 AM CDT [facility] Calcium 10.2 8.4 - 10.4 mg/dL 11/09/2023 5:43 AM CDT [facility] BUN 28(H) 7 - 26 mg/dL 11/09/2023 5:43 AM CDT [facility] Creatinine 0.96 0.55 - 1.02 mg/dL 11/09/2023 5:43 AM CDT [facility] Glucose 89 70 - 100 mg/dL 11/09/2023 5:43 AM CDT [facility] Comment:The given reference range is for the fasting state. Non-fasting reference range for glucose is 70 - 180 mg/dL. GFR, Estimated >60 >60 mL/min/1.7 3m2 11/09/2023 5:43 AM CDT [facility] Blood Venipuncture / Unknown 11/09/2023 4:59 AM CDT 11/09/2023 5:17 AM CDT Crow Howell PA-C LAB_1 [facility] [address] * XR Portable Chest 1 View [...] MRSA, Molecular Detection (11/08/2023 8:35 PM CDT) MRSA Not Detected Not Detected 11/08/2023 9:53 PM CDT [facility] Swab (Source Required) ENTIRE ANTERIOR NARIS / Unknown Non-blood Collection / Unknown 11/08/2023 8:35 PM CDT 11/08/2023 8:39 PM CDT Narrative [facility] - 11/08/2023 9:53 PM CDT Methodology: Qualitative real-time PCR assay Christian Carter MD LAB_1 Performing Organization Address [facility] de Phone Number [facility] [address] * Glucose, Whole Blood POCT (11/08/2023 8:12 PM CDT) Glucose, Whole Blood 86 70 - 180 mg/dL 11/08/2023 8:13 PM CDT [facility] Performing Location MT 2N/S 11/08/2023 8:13 PM CDT [facility] Blood 11/08/2023 8:12 PM CDT 11/08/2023 8:13 PM CDT Christian Carter MD LAB_1 Performing Organization Address [facility] Phone Number [facility] [address] [place] [address] * (ABNORMAL) Troponin-I (11/08/2023 7:56 PM CDT) Pathologist [facility] Troponin I 0.06(H) 0.00 - 0.03 ng/mL 11/08/2023 8:33 PM CDT [facility] Blood Venipuncture / Unknown 11/08/2023 7:56 PM CDT 11/08/2023 8:00 PM CDT Crow Howell PA-C LAB_1 Performing Organization Address [facility] de Phone Number [facility] [address] [place] [address] * CT Angio Neck Head W IV Cont (11/08/2023 2:23 PM CDT) Anatomical Region Laterality Modality Head, Vascular Computed Tomogra phy 11/08/2023 2:08 PM CDT Impressions 11/08/2023 3:23 PM CDT INDICATION: sams, htn, known aneurysms TECHNIQUE: CT angiogram of the [place] ??and CT angiogram of the [...] on the right Narrative Procedure Note Olivier Craemr MD - 11/08/2023 IMPRESSION INDICATION: sams, htn, known aneurysms TECHNIQUE: CT angiogram of the [place] and CT angiogram of theneck [...] and the C3-4 levelon the right Kavon KNIGHT CT * CT Head WO IV [...] GHP QTc 373 ms MUSE GHP P Orient 65 degrees MUSE GHP R Orient 66 degrees MUSE GHP T Orient 68 degrees MUSE GHP 11/08/2023 1:08 PM [...] [facility] Co de Phone Number [facility] [address] [place] [phone] * (ABNORMAL) B-Type Natriuretic Peptide (11/08/2023 1:04 PM CDT) [facility] B Type Natr. Peptide 198(H) <=99 pg/mL 11/08/2023 1:57 PM CDT [facility] Blood Venipuncture / Unknown 11/08/2023 1:04 PM CDT 11/08/2023 1:16 PM CDT Kavon Vázquez DO LAB_1 Performing Organization Address [facility] de Phone Number [facility] [address] [place] [address] * Troponin - Once STAT (11/08/2023 1:04 PM CDT) [facility] Troponin I 0.01 0.00 - 0.03 ng/mL 11/08/2023 1:51 PM CDT [facility] Blood Venipuncture / Unknown 11/08/2023 1:04 PM CDT 11/08/2023 1:15 PM CDT Kavon Vázquez DO LAB_1 Performing Organization Address [facility] Co de Phone Number [facility] [address] [place] [address] * Complete Blood Count-W/Diff (11/08/2023 1:04 PM CDT) WBC 7.8 3.5 - 10.5 x10(9)/L 11/08/2023 1: PM CDT [facility] RBC 4.23 3.90 - 5.03 x10(12)/L 11/08/2023 1: PM CDT [facility] Hemoglobin 13.1 12.0 - 15.5 g/dL 11/08/2023 1: PM CDT [facility] HCT 39.5 34.9 - 44.5 % 11/08/2023 1: PM CDT [facility] MCV 93.4 80.0 - 100.0 fL 11/08/2023 1: PM CDT [facility] MCH 31.0 27.6 - 33.3 pg 11/08/2023 1: PM CDT [facility] MCHC 33.2 31.5 - 35.2 g/dL 11/08/2023 1: PM CDT [facility] RDW 13.5 11.9 - 15.5 % 11/08/2023 1: PM CDT [facility] Platelets 257 150 - 450 x10(9)/L 11/08/2023 1: PM CDT [facility] Automated NRBC 0 <=0 /100 WBC 11/08/2023 1: PM CDT [facility] Neutrophil Absolute 6.3 1.7 - 7.0 10(9)/L 11/08/2023 1: PM CDT [facility] Lymphocyte Absolute 1.1 1.0 - 4.8 10(9)/L 11/08/2023 1: PM CDT [facility] Monocyte Absolute 0.3 0.2 - 0.9 10(9)/L 11/08/2023 1: PM CDT [facility] Eosinophil Absolute 0.0 0.0 - 0.5 10(9)/L 11/08/2023 1: PM CDT [facility] Basophil Absolute 0.0 0.0 - 0.3 10(9)/L 11/08/2023 1: PM CDT [facility] Immature Granulocyte % 0.5 0.0 - 0.5 % 11/08/2023 1:19 PM CDT [facility] Blood Venipuncture / Unknown 11/08/2023 1:04 PM CDT 11/08/2023 1:16 PM CDT Jenaro Robles MD LAB_1 Performing Organization Address City/[facility]/ZIP Co de Phone Number [facility] [address] * Extra Blue top tube (11/08/2023 1:04 PM CDT) Pathologist [facility] Extra Blue Top Drawn Specimen will be held for 24 hours 11/08/2023 3:00 PM CDT [facility] Blood Venipuncture / Unknown 11/08/2023 1:04 PM CDT 11/08/2023 1:16 PM CDT Jenaro Robles MD LAB_1 Performing Organization Address [facility] Co de Phone Number [facility] [address] * (ABNORMAL) Basic Metabolic Panel (11/08/2023 1:04 PM CDT) Pathologist [facility] Sodium 140 136 - 145 mmol/L 11/08/2023 1:47 PM CDT [facility] Potassium 4.4 3.5 - 5.1 mmol/L 11/08/2023 1:47 PM CDT [facility] Chloride 105 98 - 109 mmol/L 11/08/2023 1:47 PM CDT [facility] CO2 25 20 - 29 mmol/L 11/08/2023 1:47 PM CDT [facility] Anion Gap 10 6 - 16 mmol/L 11/08/2023 1:47 PM CDT [facility] Calcium 11.0(H) 8.4 - 10.4 mg/dL 11/08/2023 1:47 PM CDT [facility] BUN 35(H) 7 - 26 mg/dL 11/08/2023 1:47 PM CDT [facility] Creatinine 0.89 0.55 - 1.02 mg/dL 11/08/2023 1:47 PM CDT [facility] Glucose 109(H) 70 - 100 mg/dL 11/08/2023 1:47 PM CDT [facility] Comment:The given reference range is for the fasting state. Non-fasting reference range for glucose is 70 - 180 mg/dL. GFR, Estimated >60 >60 mL/min/1.7 3m2 11/08/2023 1:47 PM CDT [facility] Blood Venipuncture / Unknown 11/08/2023 1:04 PM CDT 11/08/2023 1:15 PM CDT Jenaro Robles MD LAB_1 [facility] [address] [place] [address], [facility] documented in this encounter Visit Diagnoses Diagnosis Hypertensive emergency- Primary Unspecified essential hypertension Hypertensive emergency Unspecified essential hypertension Cerebral aneurysm without rupture Cerebral aneurysm, nonruptured Acute nonintractable headache, unspecified headache type Chronic pain syndrome Brain aneurysm Cerebral aneurysm, nonruptured Lupus Systemic lupus erythematosus Brain aneurysm Cerebral aneurysm, nonruptured Generalized anxiety disorder (HRC) Generalized anxiety disorder Chronotropic incompetence Other specified conduction disorder Sinus bradycardia Other specified cardiac dysrhythmias SSS (sick sinus syndrome) (HRC) Sinoatrial node dysfunction Cardiac pacemaker in situ * Plan of Care - Beau Flanagan RN - 11/10/2023 4:54 AM CDT Shift Summary [id number]: Cardiac: NSB. SBP goal <170, no intervention [...] - 11/09/2023 6:14 PM CDT Shift Update [id number]: Patient reports feeling better today. Headache, PRN norco effective. ECHO this AM, EF 65%. SBP remains within goal. BP meds adjusted today. Patient bradycardic with rates 30s-50s. SBA to bathroom. Pthas low appetite. Unable to eat a lot of foods due to allergies. Will continue to monitor. * Plan of Care - Iwona Bland - 11/08/2023 5:50 PM CDT [facility] Medication History Note 1. [...] by mouth daily - ProOmega Curcumin by [employer]: Added sig > Take 3 capsules by [...] every week. Take 30 minutes before first dajz-szxuk-pgxwrhnihy. Avoid lying down for 30 minutes. (Patient taking differently: Take 1 Tablet (70 mg) by mouth once every week. Take 30 minutes before first smal-qrwmh-osmjzbezql on mornings. Avoid lying down for 30 [...] Take by mouth daily. ProOmega Curcumin by [employer]: Take 3 capsules by mouth daily 11/08/2023 [...] 11/08/2023 12:52 PM CDT Patient [facility] from [facility] for evaluation of hypertension. Per [...] to and administered in the Electrophysiology Lab., [facility] Card Started 11/11/2023 2:10 PM CDT [...] PRN, Vomiting, Nausea, Starting on Tue11/08/23 at 2012, Until 11/13/23 [...] dose on Tue11/11/23 at 1700, Until Discontinued 1706 (Given - Provider: Atiya Ryan RN) 0752 [...] to and administered in the Electrophysiology Lab., [facility] Card 9915 (Started - Provider: Shani Zavala RN)1440 (Infused - Provider: Shani Zavala RN) ezetimibe (ZETIA) tablet 10 mg 10 mg, Oral, DAILY, First dose on Tue11/08/23 at 2100, Until Discontinued 1947 (Given - Provider: Atyia Ryan, RN) 2029 (Given - Provider: Atiya Ryan, MENDEL) [...] Ben Luciano RN)1947 (Given - Provider: Atiya Ryan, MENDEL) 751 (Given - Provider: Ben Luciano RN)2029 [...] Luciano RN) 075 (Given - Provider: Ben J Sterne, RN) 0941 (Given - Provider: Ben Luciano RN) spironolactone (ALDACTONE) tablet 25 mg 25 [...] hour prior to the scheduled procedure time., [facility] Card 1410 (Started - Provider: Shani [...] other options for pain (all pain scores). 0933 (Given - Provider: Ben Luciano, MENDEL) benzocaine-menthol [...] Cough, Starting on Tue11/08/23 at 2011, Until 11/13/23 at 1340 HYDROcodone-acetaminophen (NORCO) 5-325 MG per [...] than 8. 0306 (Given - Provider: Atiya Ryan RN)2029 (Given - Provider: Atiya Ryan, MENDEL) 0608 [...] -prochlorperazine 3rd Line - metoclopramide nystatin (MYCOSTATIN) [id number] UNIT/GM topical powder Topical, BID PRN, Other, [...] chloride (OCEAN) 0.65 % nasal solution 1 [place] 1 [place], Both Nostrils, Q2H PRN, Dry Nose, Starting on Tue11/08/23 at 2011, Until 11/13/23 at 1340 sodium chloride 0.9% injection 10-60 mL 10-60 mL, Intravenous, PRN, Line Patency, Line Care, Starting on Tue11/11/23 at 1753, Until 11/13/23 at 1340, Post-Procedure Linked Groups Order Group [...] metoclopramide documented in this encounter Care Teams Director Of Software Development Relationship Specialty Start Date End Date Dalton Canales MD [address] [place] [address] PCP - General Family Practice 06/23/23 documented as of this encounter
--- OUTSIDE RECORDS SUMMARY | 2024-01-30 08:33 | XMS_ITS | Encounter Summary ---
Author Organization [employer] Address [address] [place] [address] Care Team Providers Care Rehabilitation Tech Name Role Phone Dalton Esqueda MD Primary Care Provider [phone] Encounter Details Date Type Department Care Team (Late st Contact Info) Description 12/15/2023 1:20 PM CDT Lab Visit [facility] [address] [place] [address] Pre-op exam Social History Tobacco Use Types Packs/Day Years Used Date Smoking Tobacco: Former Cigarettes Smokeless Tobacco: Never Alcohol Use Standard Drinks/Week Comments Not Currently 0 (1 standard drink = 0.6 oz pur e alcohol) [facility] Utilities Answer Date Recorded In the past 12 months has [facility], gas, oil, or water [employer] threatened to shut off services in your [...] st Contact Info) Description 03/06/2024 1:00 PM OIL PAINT SHADER Appointment [facility] [address] Electrophysiology [address] [place] [phone] 03/14/2024 2:00 PM OIL PAINT SHADER Appointment [facility] Neurosurgery/Ortho Spine [address] [place] [address]. [place] [address] Brandon Kessler MD [address] [place] [address] 03/20/2024 11:15 AM OIL PAINT SHADER Appointment Rheumatology at [facility] [address] [address] [address] [place] [address] Desilet, Freeman W, DO [address] [place] [address] documented as of this encounter Procedures Procedure Name Priority Date/Time Associated Diagnosis Comments BASIC METABOLIC PANEL Routine 12/15/2023 1:14 PM CDT Pre-op exam documented in this encounter Results * (ABNORMAL) Basic Metabolic Panel (12/15/2023 1:14 PM CDT) Sodium 137 136 - 145 mmol/L 12/15/2023 5:32 PM [facility] Potassium 5.1 3.5 - 5.1 mmol/L 12/15/2023 5:32 PM [facility] Chloride 103 98 - 109 mmol/L 12/15/2023 5:32 PM [facility] CO2 20 20 - 29 mmol/L 12/15/2023 5:32 PM [facility] Anion Gap 14 6 - 16 mmol/L 12/15/2023 5:32 PM [facility] Calcium 11.1(H) 8.4 - 10.4 mg/dL 12/15/2023 5:32 PM [facility] Comment:Low serum albumin ma y artificially lower total calcium, without impacting ionized calcium concentrations. If patient has or is at risk for hypoalbuminemia, consider ionized serum calcium to more accurately assess calcium status. BUN 57(H) 7 - 26 mg/dL 12/15/2023 5:32 PM [facility] Creatinine 1.09(H) 0.55 - 1.02 mg/dL 12/15/2023 5:32 PM [facility] Glucose 119(H) 70 - 100 mg/dL 12/15/2023 5:32 PM [facility] Comment:The given reference range is for the fasting state. Non-fasting reference range for glucose is 70 - 180 mg/dL. GFR, Estimated 55(L) >60 mL/min/1. 73m2 12/15/2023 5:32 PM [facility] Hours Fasting 0.0 8 - 12 Hours 12/15/2023 5:32 PM [facility] Comment:Patient has indicate d a non-fasting status. Blood Venipuncture / Unknown 12/15/2023 1:14 PM CDT 12/15/2023 1:40 PM CDT Narrative [facility] - 12/15/2023 5:32 PM CDT The National Kidney Disease Education Program suggests measuring Cystatin C in patients with eGFRcrea of 45 to 59 ml/min/1.73^2 who do not have other markers of kidney damage (i.e. elevated urine Albumin/Creatinine Ratio or a prior Cystatin C confirming the presence of chronic kidney disease). Rosa Elena Huynh PA-C LAB_1 [facility] [address] [place] [address], [facility] documented in this encounter Visit Diagnoses Diagnosis Pre-op exam Preoperative examination, unspecified documented in this encounter Care Teams Rehabilitation Tech Relationship Specialty Start Date End Date Dalton Esqueda MD [address] [place] [address] PCP - General Family Practice 06/23/23 documented as of this encounter
--- OUTSIDE RECORDS SUMMARY | 2024-01-30 08:33 | XMS_ITS | Encounter Summary ---
Author Organization [employer] Address [address] [place] [address] Care Team Providers Care Nail Expert Name Role Phone Dalton Esqueda MD Primary Care Provider Encounter Details Date Type Department Care Team (Late st Contact Info) Description 12/08/2023 Notes/Orders [facility] [address] [place] [address]. [place], [place] [phone] Wilfredo Howell III, MD [address] [place], [place] [phone] Social History Tobacco Use Types Packs/Day Years Used Date Smoking Tobacco: Former Cigarettes Smokeless Tobacco: Never Alcohol Use Standard Drinks/Week Comments Not Currently 0 (1 standard drink = 0.6 oz pur e alcohol) [facility] Utilities Answer Date Recorded In the past 12 months has [employer], gas, oil, or water [employer] threatened to shut off services in your [...] Prior Authorization Portal Prior authorization approved Payer: [facility] Note from payer: Request Reference Number: [id number]. PRALUENT INJ 75MG/ML is approved through 04/24/2024. Your patient may now fill this prescription and it will be covered. Approval Details Authorization number: [id number] Authorized from December 07, 2023 to April 24, 2024 Electronic appeal: Supported Appeal deadline: December 14, 2023 (In 6 days) View History Pharmacy called and notified of PA approval. documented in this encounter Plan of Treatment Upcoming Encounters Date Type Department Care Team (Late st Contact Info) Description 03/06/2024 1:00 PM GRAIN ELEVATOR AGENT Appointment [facility] [address] Electrophysiology [address] [place] [address] 03/14/2024 2:00 PM GRAIN ELEVATOR AGENT Appointment [facility] Neurosurgery/Ortho Spine [address] [place] [address]. [place] [address] Brandon Kessler MD [address] [place] [address] 03/20/2024 11:15 AM GRAIN ELEVATOR AGENT Appointment Rheumatology at [facility] [address] [facility] [address] [place] [address] Desilet, Freeman W, DO [address] [place] [address] documented as of this encounter Visit Diagnoses Not on filedocumented in this encounter Care Teams Nail Expert Relationship Specialty Start Date End Date Dalton Esqueda MD [address] [place] [address] PCP - General Family Practice 06/23/23 documented as of this encounter
--- OUTSIDE RECORDS SUMMARY | 2024-01-30 08:34 | XMS_ITS | Encounter Summary ---
Author Organization [employer] Address [address] [place] [address] Care Team Providers Care A P Mechanic Name Role Phone Dalton Esqueda MD Primary Care Provider [phone] Reason for Visit * Reason Comments Hypertension Encounter Details Date Type Department Care Team (Late st Contact Info) Description 10/24/2023 Telephone [facility] Cardiology [employer] [employer] [place], [place] [phone] Wilfredo Howell III, MD [address] [place] [address] Hypertension Social History Tobacco Use [...] st Contact Info) Description 03/06/2024 1:00 PM ORTHODONTIC LAB TECHNICIAN Appointment [facility] [address] [facility] [address] [place] [address] 03/14/2024 2:00 PM ORTHODONTIC LAB TECHNICIAN Appointment [facility] Neurosurgery/Ortho Spine [address] [place] [address]. [place] [address] Brandon Kessler MD [address] [place] [address] 03/20/2024 11:15 AM ORTHODONTIC LAB TECHNICIAN Appointment Rheumatology at [facility] [address] [address] [address] [place] [address] Desilet, Luartie W, DO [address] [place] [address] documented as of this encounter Visit Diagnoses Not on filedocumented in this encounter Care Teams A P Mechanic Relationship Specialty Start Date End Date Dalton Esqueda MD [address] [place] [address] PCP - General Family Practice 06/23/23 documented as of this encounter
--- OUTSIDE RECORDS SUMMARY | 2024-01-30 08:34 | XMS_ITS | Encounter Summary ---
Author Organization [facility] Address [address] [place] [address] Care Team Providers Care Dishing Machine Operator Name Role Phone Dalton Esqueda MD Primary Care Provider Encounter Details Date Type Department Care Team (Late st Contact Info) Description 10/26/2023 11:10 AM CDT Lab Visit [facility] [address] [place], [place] [phone] High risk medication use Social History Tobacco [...] st Contact Info) Description 03/06/2024 1:00 PM BOND ANALYST Appointment [facility] [place] [address] Electrophysiology [address] [place] [phone] 03/14/2024 2:00 PM BOND ANALYST Appointment [facility] [place] Neurosurgery/Ortho Spine [address] [facility] [place] [address] Brandon Kessler MD [address] [place] [address] 03/20/2024 11:15 AM BOND ANALYST Appointment Rheumatology at [facility] [place] [address] [address] [address] [place] [address] Freeman Lopez DO [address] [place] [address] documented as of this encounter Procedures Procedure [...] 3.5 - 10.5 x10(9)/L 10/26/2023 11:07 AM [facility] RBC 3.89(L) 3.90 - 5.03 x10(12)/L 10/26/2023 11:07 AM [facility] Hemoglobin 12.0 12.0 - 15.5 g/dL 10/26/2023 11:07 AM [facility] HCT 36.3 34.9 - 44.5 % 10/26/2023 11:07 AM [facility] MCV 93.3 80.0 - 100.0 fL 10/26/2023 11:07 AM [facility] MCH 30.8 27.6 - 33.3 pg 10/26/2023 11:07 AM [facility] MCHC 33.1 31.5 - 35.2 g/dL 10/26/2023 11:07 AM [facility] RDW 13.5 11.9 - 15.5 % 10/26/2023 11:07 AM [facility] Platelets 271 150 - 450 x10(9)/L 10/26/2023 11:07 AM [facility] Automated NRBC 0 <=0 /100 WBC 10/26/2023 11:07 AM [facility] Neutrophil Absolute 5.6 1.7 - 7.0 10(9)/L 10/26/2023 11:07 AM [facility] Lymphocyte Absolute 1.2 1.0 - 4.8 10(9)/L 10/26/2023 11:07 AM [facility] Monocyte Absolute 0.4 0.2 - 0.9 10(9)/L 10/26/2023 11:07 AM [facility] Eosinophil Absolute 0.1 0.0 - 0.5 10(9)/L 10/26/2023 11:07 AM [facility] Basophil Absolute 0.0 0.0 - 0.3 10(9)/L 10/26/2023 11:07 AM [facility] Immature Granulocyte % 0.4 0.0 - 0.5 % 10/26/2023 11:07 AM [facility] Blood Venipuncture / Unknown 10/26/2023 11:04 AM CDT 10/26/2023 11:04 AM CDT Luke W Desilet DO LAB_1 [facility] [address] [place] [address] * (ABNORMAL) Comp Metabolic Panel (10/26/2023 11:04 AM CDT) Sodium 139 136 - 145 mmol/L 10/26/2023 1:06 PM [facility] Potassium 4.9 3.5 - 5.1 mmol/L 10/26/2023 1:06 PM [facility] Chloride 106 98 - 109 mmol/L 10/26/2023 1:06 PM [facility] CO2 23 20 - 29 mmol/L 10/26/2023 1:06 PM [facility] Anion Gap 10 6 - 16 mmol/L 10/26/2023 1:06 PM [facility] Calcium 10.5(H) 8.4 - 10.4 mg/dL 10/26/2023 1:06 PM [facility] Comment:Low serum albumin ma y artificially lower total calcium, without impacting ionized calcium concentrations. If patient has or is at risk for hypoalbuminemia, consider ionized serum calcium to more accurately assess calcium status. BUN 36(H) 7 - 26 mg/dL 10/26/2023 1:06 PM [facility] Creatinine 1.18(H) 0.55 - 1.02 mg/dL 10/26/2023 1:06 PM [facility] Alkaline Phosphatase 38(L) 40 - 150 U/L 10/26/2023 1:06 PM [facility] AST (SGOT) 22 10 - 40 U/L 10/26/2023 1:06 PM [facility] ALT (SGPT) 16 <=55 U/L 10/26/2023 1:06 PM [facility] Bilirubin, Total 0.4 0.2 - 1.2 mg/dL 10/26/2023 1:06 PM [facility] Protein, Total 7.0 6.4 - 8.3 g/dL 10/26/2023 1:06 PM [facility] Albumin 3.7 3.5 - 5.0 g/dL 10/26/2023 1:06 PM [facility] Glucose 105(H) 70 - 100 mg/dL 10/26/2023 1:06 PM [facility] Comment:The given reference range is for the fasting state. Non-fasting reference range for glucose is 70 - 180 mg/dL. GFR, Estimated 50(L) >60 mL/min/1. 73m2 10/26/2023 1:06 PM [facility] Hours Fasting 2.0 8 - 12 Hours 10/26/2023 1:06 PM [facility] Blood Venipuncture / Unknown 10/26/2023 11:04 AM T 10/26/2023 11:04 AM [facility] - 10/26/2023 1:06 PM [facility] The National Kidney Disease Education Program suggests measuring Cystatin C in patients with eGFRcrea of 45 to 59 ml/min/1.73^2 who do not have other markers of kidney damage (i.e. elevated urine Albumin/Creatinine Ratio or a prior Cystatin C confirming the presence of chronic kidney disease). Sherylartie W Desilet DO LAB_1 [facility] [address] [place] [address] documented in this encounter Visit Diagnoses Diagnosis High risk medication use Encounter for long-term (current) use of other medications documented in this encounter Care Teams Dishing Machine Operator Relationship Specialty Start Date End Date Dalton Esqueda MD [address] [place] [address] PCP - General Family Practice 06/23/23 documented as of this encounter
--- OUTSIDE RECORDS SUMMARY | 2024-01-30 08:34 | XMS_ITS | Continuity of Care Document ---
Author Organization [facility] Address [address] [place] [address] Phone Care Team Providers Care Rail Walker Name Role Phone Lemuel Huang MD Unavailable Unavailab le Allergies, Adverse Reactions, Alerts Substance Reaction Status Criticality diltiazem Unknown Active No Information hydralazine Unknown Active No Information duloxetine Unknown Active No Information hydrochlorothiazide Unknown Active No Infor mation Lcynrdp-LFL-TsC Reductase Inhibitors Unknown Acti ve No Information [...] Visit,Est, Mod [facility], [address], [place], [place], [id number], [place] tel:[phone] [facility] Spinal stenosis, lumbar region with neurogenic claudication Reina guzmán [facility] [place], [address], [address], [place], [place], [id number], [place]. tel:[phone] Referring Provider: Mauricio Weston, [address], [address]. tel:[phone] Office/Outpat ient Visit,New, Mod [facility], [address], [place], [place], [id number], [place] tel:[phone] [facility] Spondylolisthe sis, lumbosacral regionSpinal stenosis, lumbosacral region Kalen Mishra. [facility] [place], [address] [place] [address] [address], [place], [place], [id number], [place]. tel:[phone] Referring Provider: Mauricio Weston, [employer] [address], [address]. tel:[phone] Family History Family Member Type Diagnosis Age At Onset No Information Payers Payer name Insurance type Covered constitution party ID Authorkatyaa tipaula(s) BCBS [id number] [facility] [id number] Social History Type Description Quantity Date Captured [...] Action Status Future Order: Radiology Order AP -Zwo-Lsam-Hce Lum (APLatFlExL), Ordered on: Ordered History Of Present Illness Encounter Date Complaint History Of Prese nt Illness No Information Functional Status Date Functional Assessmen t No Information Instructions Date Instruction Additional Infor mation No Information Assessments Type Assessment Date No Information Patient Care Teams Name Effective Dates (start - stop) Status Members No Information
--- OUTSIDE RECORDS SUMMARY | 2024-01-30 08:34 | XMS_ITS | Encounter Summary ---
Author Organization [facility] Address [address] [place] [address] Care Team Providers Care Habilitation Worker Name Role Phone Dalton Esqueda MD Primary Care Provider Encounter Details Date Type Department Care Team (Late Contact Info) Description 10/24/2023 Notes/Orders [facility] Card[facility] [address] [place] [address]. [place], [place] [phone] Wilfredo Howell III, MD [facility] [place], [place] [phone] Social History Tobacco Use Types Packs/Day Years [...] Department Care Team (Late Contact Info) Description 03/06/2024 1:00 PM SAND MILL OPERATOR FACING SAND Appointment [facility] [place] [address] [facility] [address] [place] [address] 03/14/2024 2:00 PM SAND MILL OPERATOR FACING SAND Appointment [facility] Neurosurgery/Ortho Spine [address] [facility] [place] [address] Brandon Kessler MD [address] [place] [address] 03/20/2024 11:15 AM SAND MILL OPERATOR FACING SAND Appointment Rheumatology at [facility] [address] [place] [address] Freeman Lopez W, DO [address] [place], [place] [address] documented as of this encounter Visit Diagnoses Not on filedocumented in this encounter Care Teams Habilitation Worker Relationship Specialty Start Date End Date Dalton Esqueda MD [address] [place] [address] PCP - General Family Practice 06/23/23 documented as of this encounter
--- OUTSIDE RECORDS SUMMARY | 2024-01-30 08:34 | XMS_ITS | Encounter Summary ---
Author Organization [employer] Address [address] [place] [address] Care Team Providers Care Human Performance Technologist Name Role Phone Dalton Esqueda MD Primary Care Provider Reason for Visit * Reason Comments BLOOD PRESSURE, HIGH Encounter Details Date Type Department Care Team (Late st Contact Info) Description 11/02/2023 Telephone [facility] Cardiology [address] [place] [address] Wilfredo Howell III, MD [address] [employer] [place], [place] [phone] BLOOD PRESSURE, HIGH Social History Tobacco Use [...] Me 11/03/23 7:46 AM Please use the [place] slot. November 02, 2023 Me to Wilfredo Howell III, MD KB 11/02/23 11:[address] Howell, see update from Richa. I can get her in to be seen in [place] next week and she is in agreement [...] the meds. Last office visit with Dr. oHwell 10/13/23: Impression and Plan: 1) HTN- significant [...] st Contact Info) Description 03/06/2024 1:00 PM ADJUNCT PHLEBOTOMY INSTRUCTOR Appointment [facility] [address] Electrophysiology [address] [place] [address] 03/14/2024 2:00 PM ADJUNCT PHLEBOTOMY INSTRUCTOR Appointment [facility] Neurosurgery/Ortho Spine [address] [facility] [place] [address] Brandon Kessler MD [address] [place] [address] 03/20/2024 11:15 AM ADJUNCT PHLEBOTOMY INSTRUCTOR Appointment Rheumatology at [facility] [place] [address] [address] [address] [place] [address] DesiletFreeman W, DO [address] [place] [address] documented as of this encounter Visit Diagnoses Not on filedocumented in this encounter Care Teams Human Performance Technologist Relationship Specialty Start Date End Date Dalton Esqueda MD [address] [place] [address] PCP - General Family Practice 06/23/23 documented as of this encounter
--- OUTSIDE RECORDS SUMMARY | 2024-01-30 08:34 | XMS_ITS | Encounter Summary ---
Author Organization [employer] Address [address] [place] [address] Care Team Providers Care Carton Making Machine Operator Name Role Phone Dalton Esqueda MD Primary Care Provider [phone] Encounter Details Date Type Department Care Team (Latest Contact Info) Description 11/08/2023 Orders Only HIM DEPARTMENT Provider, [place] [address] Social History Tobacco Use Types Packs/Day Years Used Date Smoking Tobacco: Former Cigarettes Smokeless Tobacco: Never Alcohol Use Standard Drinks/Week Comments Not Currently 0 (1 standard drink = 0.6 oz pur e alcohol) [facility] Utilities Answer Date Recorded In the past 12 months has e [employer], gas, oil, or water [employer] threatened to shut off services in [...] st Contact Info) Description 03/06/2024 1:00 PM HYDROGRAPHIC ENGINEER Appointment [facility] [address] Electrophysiology [address] [place] [address] 03/14/2024 2:00 PM HYDROGRAPHIC ENGINEER Appointment [facility] [place] Neurosurgery/Ortho Spine [address] [place] [address]. [place] [address] Brandon Kessler MD [address] [place] [address] 03/20/2024 11:15 AM HYDROGRAPHIC ENGINEER Appointment Rheumatology at [facility] [place] [address] [address] [address] [place] [address] DesiletFreeman W, DO [address] [place] [address] documented as of this encounter Procedures Procedure Name Priority Date/Time Associated Diagnosis Comments PROCEDURE IP 11/08/2023 documented in this encounter Results * PROCEDURE IP (11/08/2023) Anatomical Region Laterality Modality Other Interface Provider MD DUMMY/OTHER/AR documented in this encounter Visit Diagnoses Not on filedocumented in this encounter Care Teams Carton Making Machine Operator Relationship Specialty Start Date End Date Dalton Esqueda MD [address] [place] [address] PCP - General Family Practice 06/23/23 documented as of this encounter
--- OUTSIDE RECORDS SUMMARY | 2024-01-30 08:34 | XMS_ITS | Encounter Summary ---
Author Organization [employer] Address [address] [place] [address] Care Team Providers Care Barrel Header Name Role Phone Dalton Canales MD Primary Care Provider Reason for Visit * Reason Comments Follow-up Encounter Details Date Type Department Care Team (Late st Contact Info) Description 11/08/2023 11:30 AM CDT [facility] [address] Cardiology [address] [place] [address] Juan Luis Robles MD [address] [facility] [address] [place], [place] [phone] Hypertensive emergency (Primary Dx) Social History Tobacco Use Types Packs/Day Years Used Date Smoking Tobacco: Former Cigarettes Smokeless Tobacco: Never Alcohol Use Standard Drinks/Week Comments Not Currently 0 (1 standard drink = 0.6 oz pur e alcohol) [facility] Utilities Answer Date Recorded In the past 12 months has [employer] electric, gas, oil, or water company threatened [...] not included. Cardiology Clinic Note Nicolle Covington [id number] 11/08/2023 Referring provider: Dalton Canales MD [address] [facility] [address] Dear Dalton Canales MD, I had the pleasure of seeing Nicolle Covington at the [facility] in [place] today. Problem List Uncontrolled HTN Multiple medication [...] Oral, WEEKLY, Take 30 minutes before first ioed-nhtgn-uzgurvwzek. Avoid lying down for 30 minutes. aspirin [...] have the ambulance take her to the [facility] ER so that she can be started on treatment there and then be admitted. Arrangements have been made through the hospitalist service at [facility]. Thank you for allowing us to participate in the care of your patient, Nicolle Covington. If you have any questions regarding these recommendations, please feel free to contact me. Juan Luis Robles MD Department of Cardiology [facility] Allergies Allergen Reactions [...] CBD Age-related osteoporosis without current pathological fracture ([facility]) 03/28/2018 Obstructive sleep apnea 03/23/2018 Hypothyroidism ([facility]) 06/30/2017 Chronic SI joint pain ([facility]) 12/20/2016 Onychomycosis of toenail 11/01/2016 Tinea corporis 11/01/2016 Brain aneurysm 08/28/2016 Frequent headaches 08/28/2016 Lupus ([facility]) 11/24/2015 Left-sided tinnitus 11/20/2015 Fibromyalgia 03/31/2015 Subacute cutaneous lupus erythematosus 03/31/2015 Generalized anxiety disorder ([facility]) 06/20/2014 Hypertension ([facility]) 08/23/2011 Stenosis of left carotid artery 08/17/2011 Overview Note: 08/26/11: Right carotid endarterectomy Adjustment disorder with depressed mood ([facility]) 04/09/2007 Tobacco use disorder ([facility]) 07/11/2006 Hyperlipidemia ([facility]) 07/11/2006 Overview Note: does not tolerate statins: [...] st Contact Info) Description 03/06/2024 1:00 PM GAS CONTROLLER Appointment [place] [facility] [address] [facility] [address] [place] [phone] 03/14/2024 2:00 PM GAS CONTROLLER Appointment [facility] [place] Neurosurgery/Ortho Spine [address] [facility] [place] [place] [address] Brandon Kessler MD [address] [place] [address] 03/20/2024 11:15 AM GAS CONTROLLER Appointment Rheumatology at [facility] [place] [address] [address] [address] [place] [address] Freeman Lopez W, DO [address] [place] [address] documented as of this encounter Visit Diagnoses Diagnosis Hypertensive emergency- Primary Unspecified essential hypertension documented in this encounter Care Teams Barrel Header Relationship Specialty Start Date End Date Dalton Canales MD [address] [place] [address] PCP - General Family Practice 06/23/23 documented as of this encounter
== END 2024-01-30 08:29 | disposition home or self-care (01) ==
PROVIDERS: PCP Family Medicine; Visit Provider Family Medicine
DX: I10 Essential (primary) hypertension (principal); D62 Acute posthemorrhagic anemia; E78.5 Hyperlipidemia, unspecified
CPT/HCPCS: 80048; 85025

== ENCOUNTER 2024-03-13 09:37 | Outpatient (CLI) | payer MEDICARE, BC, SELFPAY ==
--- OUTSIDE RECORDS SUMMARY | 2024-03-13 09:40 | XMS_ITS | Encounter Summary ---
Author Organization [employer] Address [address] [place] [address] Care Team Providers Care Dairy Grazer Name Role Phone Dalton Esqueda MD Primary Care Provider Reason for Visit * Reason Comments Follow-up Encounter Details Date Type Department Care Team (Late st Contact Info) Description 01/06/2024 1:30 PM CDT [facility] [address] Cardiology [address] [place] [address] Wilfredo Howell III, MD 6[address] [place], [place] [address] Hypertension, unspecified type (HRC) (Primary Dx); SSS (sick sinus syndrome) (HRC); Cardiac pacemaker in situ; PAD (peripheral artery disease) (HRC); Mixed hyperlipidemia (HRC) Social History Tobacco Use Types Packs/Day Years Used Date Smoking Tobacco: Former Cigarettes Smokeless Tobacco: Never Alcohol Use Standard Drinks/Week Comments Not Currently 0 (1 standard drink = 0.6 oz pur e alcohol) [facility] Utilities Answer Date Recorded In the past 12 months has th e electric, gas, oil, or water [employer] threatened to shut off services in your [...] permanent pacemaker implant. Richa was admitted to [facility] in October of this year. [...] process of scheduling a peripheral angiogram at [facility]. She was unable to tolerate the [...] every week. Take 30 minutes before first snuy-zursd-bbjvjrdfve on mornings. Avoid lying down for 30 [...] Take by mouth daily. ProOmega Curcumin by [employer]: Take 3 capsules by mouth daily ezetimibe [...] (165.1 cm) Wt 132 lb 3.2 oz (76918 g) BMI 22.00 kg/m?? Estimated body mass index is 22 kg/m?? as calculated from the following: Height as of this encounter: 5' 5 (165.1 cm). Weight as of this encounter: 132 lb 3.2 oz (00509 g). GEN- patient awake alert and conversant [...] medical records, cardiac tests, and time spent yjcr-ar-[id number] with patient. documented in this encounter Plan of Treatment Upcoming Encounters Date Type Department Care Team (Late st Contact Info) Description 03/14/2024 2:00 PM SLUDGE CONTROL OPERATOR Appointment [facility] Neurosurgery/Ortho Spine [address] [place] [address]. [place] [address] Brandon Kessler MD [address] [place] [address] CONSULT 03/20/2024 11:15 AM SLUDGE CONTROL OPERATOR Appointment Rheumatology at [facility] [place] [address] [address] [address] [place], [place] [address] Desilet, Freeman W, DO [address] [place] [address] 03/05/2025 11:30 AM SLUDGE CONTROL OPERATOR Appointment [facility] [address] Electrophysiology [address] [place] [address] documented as of this encounter Visit Diagnoses Diagnosis Hypertension, unspecified type (HRC)- Primary SSS (sick sinus syndrome) (HRC) Sinoatrial node dysfunction Cardiac pacemaker in situ PAD (peripheral artery disease) (HRC) Unspecified disorders of arteries and arterioles Mixed hyperlipidemia (HRC) Mixed hyperlipidemia documented in this encounter Care Teams Dairy Grazer Relationship Specialty Start Date End Date Dalton Esqueda MD [address] [place] [address] PCP - General Family Practice 06/23/23 documented as of this encounter
--- OUTSIDE RECORDS SUMMARY | 2024-03-13 09:40 | XMS_ITS | Encounter Summary ---
Author Organization [employer] Address [address] [place] [address] Care Team Providers Care Para Educator Name Role Phone Dalton Esqueda MD Primary Care Provider [phone] Reason for Visit * Reason Comments Follow-up Encounter Details Date Type Department Care Team (Late st Contact Info) Description 01/11/2024 Telephone Rheumatology at [place] [address] [place] [address]. [place] [address] DesileFreeman mora, DO [address] [place] [address] [id number] Follow-up Social History Tobacco Use Types Packs/Day Years Used Date Smoking Tobacco: Former Cigarettes Smokeless Tobacco: Never Alcohol Use Standard Drinks/Week Comments Not Currently 0 (1 standard drink = 0.6 oz pur e alcohol) [facility] Utilities Answer Date Recorded In the [...] note from 12/22/23 was faxed today to [facility] ([facility]) at [phone]. * Amanda French RN - 01/11/2024 11:45 AM CDT Zoila, nurse from [facility], called requesting we fax over the last office visit note (12/22/23) to them. Patient is scheduled to have an angiogram and they need to know provider's medication instructions for the procedure. documented in this encounter Plan of Treatment Upcoming Encounters Date Type Department Care Team (Late st Contact Info) Description 03/14/2024 2:00 PM DISABILITY AIDE Appointment [facility] Neurosurgery/Ortho Spine [address] [facility] [place] [address] Brandon Kessler MD [address] [place] [address] CONSULT 03/20/2024 11:15 AM DISABILITY AIDE Appointment Rheumatology at [facility] [place] [address] [facility] [address] [place], [place] [address] Desilet, Luke W, DO 3800 [place] [address] 03/05/2025 11:30 AM DISABILITY AIDE Appointment [facility] [address] Electrophysiology [address] [place] [phone] documented as of this encounter Visit Diagnoses Not on filedocumented in this encounter Care Teams Para Educator Relationship Specialty Start Date End Date Dalton Esqueda MD [address] [place] [address] PCP - General Family Practice 06/23/23 documented as of this encounter
--- OUTSIDE RECORDS SUMMARY | 2024-03-13 09:40 | XMS_ITS | Encounter Summary ---
Author Organization [employer] Address [address] [place] [address] Care Team Providers Care Certified Phlebotomy Technician Name Role Phone Dalton Esqueda MD Primary Care Provider [phone] Encounter Details Date Type Department Care Team (Late st Contact Info) Description 12/29/2023 10:30 AM CDT Lab Visit [place] [address] [place], [place] [address] Systemic lupus erythematosus, unspecified SLE type, unspecified organ involvement status (HRC) Social History Tobacco Use Types Packs/Day Years Used Date Smoking Tobacco: Former Cigarettes Smokeless Tobacco: Never Alcohol Use Standard Drinks/Week Comments Not Currently 0 (1 standard drink = 0.6 oz pur e alcohol) [facility] Utilities Answer Date Recorded In the past 12 months has [facility] [employer], gas, oil, or water [employer] threatened to shut off services in your [...] st Contact Info) Description 03/14/2024 2:00 PM PUBLICIST Appointment [facility] Neurosurgery/Ortho Spine [address] [place] [address]. [place] [address] Brandon Kessler MD [address] [place] [address] CONSULT 03/20/2024 11:15 AM PUBLICIST Appointment Rheumatology at [facility] [address] [address] DesFreeman brand, DO 3800 [place] [address] 03/05/2025 11:30 AM PUBLICIST Appointment [facility] [place] [address] Electrophysiology [address] [place] [address] documented as of this encounter Procedures Procedure Name Priority Date/Time Associated Diagnosis Comments TP/CREA RATIO, URINE Routine 12/29/2023 9:02 AM CDT Systemic lupus erythematosus, unspecified SLE type, unspecified organ involvement status (HRC) documented in this encounter Results * TP/Crea Ratio, Urine (12/29/2023 9:02 AM CDT) TP/Creat Ratio, Urine Random 0.05 0.00 - 0.20 12/29/2023 2:52 PM CDT [facility] Total Protein, Urine, Random 2 0 - 14 mg/dL 12/29/2023 2:52 PM CDT [facility] Creatinine, Urine, Random 41 >20 mg/dL mg/dL 12/29/2023 2:52 PM CDT [facility] Urine Non-blood Collection / Unknown 12/29/2023 9:02 AM CDT 12/29/2023 9:02 AM CDT Narrative [facility] - 12/29/2023 2:52 PM CDT Low urine creatinine values coupled with low urine protein values can artifactually increase the urine protein/creatinine results. Correlate results of ratio with creatinine results. Luke W Desilet DO LAB_1 [facility] [address] documented in this encounter Visit Diagnoses Diagnosis Systemic lupus erythematosus, unspecified SLE type, unspecified organ involvement status (HRC) documented in this encounter Care Teams Certified Phlebotomy Technician Relationship Specialty Start Date End Date Dalton Esqueda MD [address] [place] [address] PCP - General Family Practice 06/23/23 documented as of this encounter
--- OUTSIDE RECORDS SUMMARY | 2024-03-13 09:40 | XMS_ITS | Encounter Summary ---
Author Organization [employer] Address [address] [place] [address] Care Team Providers Care Earth Science Teacher Name Role Phone Dalton Esqueda MD Primary Care Provider [phone] Reason for Visit * Reason Comments Nurse Visit Encounter Details Date Type Department Care Team (Late st Contact Info) Description 02/08/2024 2:30 PM CDT Nursing [facility] Electrophysiology [address] [place] [address] Nurse, [id number] [place] Social History Tobacco Use Types Packs/Day Years Used Date Smoking Tobacco: Former Cigarettes Smokeless Tobacco: Never Alcohol Use Standard Drinks/Week Comments Not Currently 0 (1 standard drink = 0.6 oz pur e alcohol) [facility] Utilities Answer Date Recorded In the past 12 months has e [employer], gas, oil, or water [employer] threatened to shut off services in your [...] as of this encounter Progress Notes * Frances Box RN - 02/08/2024 2:30 PM CDT Patient in clinic for an Electrophysiology Nurse Visit to check on incision site from PM placement procedure on 11/11/23. Medications and allergies reviewed and any changes have been updated in [facility]. Subjective Complaints/Comments: Richa presents to EP for a PM site check. Richa has a circular rash over her PM generator site, similar to the appearance of ringworm. Onset: yesterday morning. Symptoms: C/O dryness. Denies itching, fever, chills, pain, tenderness, swelling, redness. Reports that she is being treated for a vaginal yeast infection and is using prescription strength cream. Shares that she has been taking prednisone for quite some time and is currently weaning off. Statesthat she has had skin issues while on prednisone. Objective Findings: Pt appearance: Alert and oriented. No redness, drainage, bruising, swelling noted. Generator is easily palpable. There is a red circular rash noted on the incision site approximately the size of a quarter. Photo has been taken with the patient's permission. See Media tab. Assessment: Rash. Plan: Continue current medication regimen. Will route to Dr. Grey for review and recommendation. * Frances Box RN - 02/08/2024 2:30 PM CDT Images from the original note were not included. Gilbert Grey MD [place], Linda M, RN Let's just check in in a week to see if it has improved. Doesn't look typical for an infection, which also usually causes pain. Gilbert Hodges * Frances Box RN - 02/08/2024 2:30 PM CDT Spoke with Richa informing her of all comments as written below per Dr. Grey. States that the rash looks better stating that it is not as red. Explained that I will check in with her next week. MENDEL Washington Neeraj, MD [place], Linda M, RN Let's just check in in a week to see if it has improved. Doesn't look typical for an infection, which also usually causes pain. Gilbert Hodges * Frances Box RN - 02/08/2024 2:30 PM CDT Called Richa for an update on how the rash above her PM site is doing. States that it is almost all gone and is much better. Frances Box RN documented in this encounter Plan of Treatment Upcoming Encounters Date Type Department Care Team (Late st Contact Info) Description 03/14/2024 2:00 PM GPS FIELD DATA COLLECTOR Appointment [facility] Neurosurgery/Ortho Spine [address] [place] [address] Brandon Kessler MD [address] [place] [address] CONSULT 03/20/2024 11:15 AM GPS FIELD DATA COLLECTOR Appointment Rheumatology at [facility] [place] [address] [address] [address] [place] [address] Desilet, Luartie W, DO 38[address] [place], [place] [address] 03/05/2025 11:30 AM GPS FIELD DATA COLLECTOR Appointment [facility] [address] Electrophysiology [address] [place] [phone] documented as of this encounter Visit Diagnoses Not on filedocumented in this encounter Care Teams Earth Science Teacher Relationship Specialty Start Date End Date Dalton Esqueda MD [address] [place] [address] PCP - General Family Practice 06/23/23 documented as of this encounter
--- OUTSIDE RECORDS SUMMARY | 2024-03-13 09:40 | XMS_ITS | Encounter Summary ---
Author Organization [employer] Address [address] [place] [address] Care Team Providers Care Ingredient Scaler Helper Name Role Phone Dalton Esqueda MD Primary Care Provider [phone] Reason for Visit * Reason Comments Other The following lab te st(s) utpcr are unable to be performed and have been cancelled. Please reorder the test(s) and contact the patient if still clinically indicated.Terri Galeana 12/22/2023, 4:49 PM Encounter Details Date Type Department Care Team (Late st Contact Info) Description 12/22/2023 Telephone [place] [address] [place] [address] Desilet, Freeman W, DO 38[address] [place] [address] Other (The following lab test(s) [...] drink = 0.6 oz pur e alcohol) [facility] Utilities Answer Date Recorded In the past 12 months has [employer], [employer], or [employer] threatened to shut off services in your [...] place to sleep or slept in a [place] health [place] facility (including now)? No 11/08/2023 Sex and Gender [...] st Contact Info) Description 03/14/2024 2:00 PM PILLOWCASE MAKER Appointment [facility] Neurosurgery/Ortho Spine [address] [place] [address] Brandon Kessler MD [address] [place] [address] CONSULT 03/20/2024 11:15 AM PILLOWCASE MAKER Appointment Rheumatology at [facility] [place] [address] [address] [address] [place] [address] Desilet, Luke W, DO 38[address] [place] [address] 03/05/2025 11:30 AM PILLOWCASE MAKER Appointment [facility] [address] Electrophysiology [address] [place] [address] documented as of this encounter Visit Diagnoses Not on filedocumented in this encounter Care Teams Ingredient Scaler Helper Relationship Specialty Start Date End Date Dalton Esqueda MD [address] [place] [address] PCP - General Family Practice 06/23/23 documented as of this encounter
--- OUTSIDE RECORDS SUMMARY | 2024-03-13 09:40 | XMS_ITS | Encounter Summary ---
Author Organization [employer] Address [address] [place] [address] Care Team Providers Care Energy Specialist Name Role Phone Dalton Esqueda MD Primary Care Provider [phone] Reason for Referral * (Routine) - New Request Specialty Diagnoses / Procedures Referred By Jonathan mora Referred To Contact Diagnoses SSS (sick sinus syndrome) (HRC) Cardiac pacemaker in situ Procedures Pacemaker Evaluation James Tejada MD [address] [place] [address] Referral ID Status Reason Start Date Expiration Date V isits Requested Visits Authorized [id number] New Request 03/06/2024 06/05/2025 1 1 ING TILE SORTER Reason for Visit * Reason Comments Device Check Encounter Details Date Type Department Care Team (Late st Contact Info) Description 03/06/2024 1:00 PM ROOFING TILE SORTER Evaluation [facility] [address] Electrophysiology [address] [place] [address] SSS (sick sinus syndrome) (HRC) (Primary Dx); Cardiac pacemaker in situ Social History Tobacco Use Types Packs/Day Years Used Date Smoking Tobacco: Former Cigarettes Smokeless Tobacco: Never Alcohol Use Standard Drinks/Week Comments Not Currently 0 (1 standard drink = 0.6 oz pur e alcohol) [facility] Utilities Answer Date Recorded In the past 12 months has th e [employer], gas, oil, or water [employer] threatened to shut off services in your [...] st Contact Info) Description 03/14/2024 2:00 PM ROOFING TILE SORTER Appointment [facility] Neurosurgery/Ortho Spine [address] [facility] [place] [address] Brandon Kessler MD [address] [place] [address] CONSULT 03/20/2024 11:15 AM ROOFING TILE SORTER Appointment Rheumatology at [facility] [place] [address] [address] [address] [place], [place] [phone] Desilet, Freeman W, DO 38[address] [place] [address] 03/05/2025 11:30 AM ROOFING TILE SORTER Appointment [facility] [address] Electrophysiology [address] [place] [phone] documented as of this encounter Procedures Procedure Name Priority Date/Time Associated Diagnosis Comments PACEMAKER EVALUATION Routine 03/06/2024 1:05 PM ROOFING TILE SORTER SSS (sick sinus syndrome) (HRC) Cardiac pacemaker in situ documented in this encounter Results * Pacemaker Evaluation (03/06/2024 1:05 PM ROOFING TILE SORTER) 03/06/2024 1:05 PM ROOFING TILE SORTER Narrative [facility] - 03/06/2024 1:05 PM ROOFING TILE SORTER Normal pacemaker function. Patient presents for routine follow-up in [place]. No new symptoms related to device. The device was interrogated and reprogrammed to assess data, thresholds, and function. PPM reprogrammed per clinic protocol. No atrial or ventricular high rate episodes noted. RV paced <0.1%. Reviewed half-way follow-up plan with pt. Battery voltage WNL. [facility] transmission every 3 months, RTC in 1 year. Please contact [phone] if any questions. DSK James Tejada MD PN ELECTROPHYSIOLOGY ORDERABLE PACEART documented in this encounter Visit Diagnoses Diagnosis SSS (sick sinus syndrome) (HRC)- Primary Sinoatrial node dysfunction Cardiac pacemaker in situ documented in this encounter Care Teams Energy Specialist Relationship Specialty Start Date End Date Dalton Esqueda MD [address] [place] [address] PCP - General Family Practice 06/23/23 documented as of this encounter
--- OUTSIDE RECORDS SUMMARY | 2024-03-13 09:40 | XMS_ITS | Encounter Summary ---
Author Organization [employer] Address [address] [place] [address] Care Team Providers Care Mooner Name Role Phone Dalton Esqueda MD Primary Care Provider [phone] Reason for Visit * Reason Comments Refill hydroxychloroquine ( PLAQUENIL) 200 MG tablet [Pharmacy Med Name: HYDROXYCHLOROQUINE SULF 200 TB] Encounter Details Date Type Department Care Team (Late st Contact Info) Description 03/10/2024 Refill Rheumatology at [facility] [address] [id number] Desilet, Juliann W, DO [address] [place], [place] [phone] Refill (hydroxychloroquine (PLAQUENIL) 200 MG tablet [Pharmacy Med Name: HYDROXYCHLOROQUINE SULF 200 TB]) Social History Tobacco Use Types Packs/Day Years Used Date Smoking Tobacco: Former Cigarettes Smokeless Tobacco: Never Alcohol Use Standard Drinks/Week Comments Not Currently 0 (1 standard drink = 0.6 oz pur e alcohol) [facility] Utilities Answer Date Recorded In the [...] Nursing Notes * Jennifer Howell RN - 03/12/2024 10:11 AM CST Eye exam 05/31/23 [facility] No Plaquenil Toxicity Renewed medication per medication refill standing order. Requested Prescriptions Signed Prescriptions Disp Refills hydroxychloroquine (PLAQUENIL) 200 MG tablet 90 Tablet 2 Sig: TAKE ONE TABLET BY MOUTH EVERY DAY Authorizing Provider: JULIANN ECHOLS Ordering User: JENNIFER HOWELL SFITTER * Nida Thapa - 03/10/2024 6:20 PM CST hydroxychloroquine (PLAQUENIL) 200 MG tablet [Pharmacy Med Name: HYDROXYCHLOROQUINE SULF 200 TB] Medication started: 03/22/2023 Last ordered by JULIANN ECHOLS W: 03/22/2023 (354 days ago) QTY: 90, Refills: 3, Sig: take 1 tablet (200 mg) by mouth daily. (changed but equivalent) -> Eye Exam was not found within the last 5 years. Last qualifying visit: 12/22/2023 (in Rheumatology) Next scheduled visit: 03/20/2024 (in Rheumatology) Eye Exam: Not found [facility] Embedded Refills, Reference: [id number], 03/10/2024 6:20:17 PM PRESSFITTER, Pool: RHEUM PN REFILL [[id number]] ([id number]) SFITTER documented in this encounter Plan of Treatment Upcoming Encounters Date Type Department Care Team (Late st Contact Info) Description 03/14/2024 2:00 PM PRESSFITTER Appointment [facility] Neurosurgery/Ortho Spine [address] [place] [address]. [place], [place] [phone] Brandon Kessler MD [address] [place] [phone] CONSULT 03/20/2024 11:15 AM PRESSFITTER Appointment Rheumatology at [facility] [place] [address] [address] [address] [place] [address] DesjagdishtJuliann W, DO [address] [place] [address] 03/05/2025 11:30 AM PRESSFITTER Appointment [facility] [address] Electrophysiology [address] [place] [address] documented as of this encounter Visit Diagnoses Not on filedocumented in this encounter Care Teams Mooner Relationship Specialty Start Date End Date Dalton Esqueda MD [address] [place] [address] PCP - General Family Practice 06/23/23 documented as of this encounter
--- OUTSIDE RECORDS SUMMARY | 2024-03-13 09:40 | XMS_ITS | Encounter Summary ---
Author Organization [employer] Address [address] [place] [address] Care Team Providers Care Radiology Special Procedure Tech Name Role Phone Dalton Esqueda MD Primary Care Provider Reason for Visit * Reason Comments Concerns About A Surgical Site After A P rocedure Encounter Details Date Type Department Care Team (Late st Contact Info) Description 02/08/2024 [facility]phone [facility] Electrophysiology [address] [facility] [place] [address] Gilbert Grey MD [address] [place], [place] [phone] Concerns About A Surgical Site After A Procedure Social History Tobacco Use Types Packs/Day Years Used Date Smoking Tobacco: Former Cigarettes Smokeless Tobacco: Never Alcohol Use Standard Drinks/Week Comments Not Currently 0 (1 standard drink = 0.6 oz pur e alcohol) [facility] Utilities Answer Date Recorded In the past [...] as of this encounter Nursing Notes * Mulu Hines, RN - 02/13/2024 8:48 AM CDT Images from the original note were not included. Gilbert Grey MD You4 days ago NS I touched base with Frances after she saw her yesterday. I'd like her to come in for a nurse visit inone week to see if it is resolving. Doesn't look typical for an infection. Thanks, Gilbert Called Richa to discuss returning for a nurse visit. She reports that the site has improved. She declines coming in for a nurse visit. She states she cannot get a ride. Encouraged Richa to look into possible options of getting a ride at any point this week. She states it is too difficult to set up a ride, as her granddaughter works this week. Discussed red flag symptoms. And discussed concerns regarding any infection and a PPM. Pt verbalizes understanding. Will call to check in later this week. Thank you, Mulu RN * Mulu Hines RN - 02/08/2024 11:59 AM CDT Pt calls back, is able to make it today for nurse visit. Appt rescheduled to 1430 today. Thank you, Mulu RN * Mulu Hines RN - 02/08/2024 11:40 AM CDT Richa calls in today with concerns about her PPM incision. She is s/p device placement in November 11, [address] Grey. This was done inpatient. Primarily a general cardiology patient. She reports that she noted yesterday a red ring on her incision of her PPM. She denies any pain, swelling, drainage, fevers, or warmth to the touch. She reports that she had two teeth pulled last Tuesday. She iscurrently on antibiotics (Metrondazole) for a perforated ulcer she recently had surgery on. They did not prescribe any other antibiotics for the dental extractions. Offered a nurse visit to better assess the ppm site. Pt unable to come to MEDICAL BILLING COORDINATOR EP today. She lives in [facility]. Nurse visit scheduled for tomorrow at 0930. Pt may proceed to UC today to be evaluated at a closer location. Dr. Grey, Any further recommendations? Thank you, Mulu RN documented in this encounter Plan of Treatment Upcoming Encounters Date Type Department Care Team (Late st Contact Info) Description 03/14/2024 2:00 PM SCALER PACKER Appointment [facility] Neurosurgery/Ortho Spine [address] [place] [address] Brandon Kessler MD [address] [place] [id number] CONSULT 03/20/2024 11:15 AM SCALER PACKER Appointment Rheumatology at [facility] [place] [address] [address] [address] [place] [address] DesiletFreeman W, DO [address] [place] [address] 03/05/2025 11:30 AM SCALER PACKER Appointment [facility] [address] Electrophysiology [address] [place] [phone] documented as of this encounter Visit Diagnoses Not on filedocumented in this encounter Care Teams Radiology Special Procedure Tech Relationship Specialty Start Date End Date Dalton Esqueda MD [address] [place] [address] PCP - General Family Practice 06/23/23 documented as of this encounter
--- OUTSIDE RECORDS SUMMARY | 2024-03-13 09:40 | XMS_ITS | Encounter Summary ---
Author Organization [employer] Address [address] [place] [address] Care Team Providers Care Lay Out And Detail Drafter Name Role Phone Dalton Esqueda MD Primary Care Provider [phone] Encounter Details Date Type Department Care Team (Late st Contact Info) Description 12/22/2023 11:20 AM CDT Lab Visit [facility] [address] [place], [place] [address] Systemic lupus erythematosus, unspecified SLE type, unspecified organ involvement status (HRC) Social History Tobacco Use Types Packs/Day Years Used Date Smoking Tobacco: Former Cigarettes Smokeless Tobacco: Never Alcohol Use Standard Drinks/Week Comments Not Currently 0 (1 standard drink = 0.6 oz pur e alcohol) [facility] Utilities Answer Date Recorded In the past 12 months has [facility] [employer], gas, oil, or water [employer] threatened to shut off services in your [...] st Contact Info) Description 03/14/2024 2:00 PM CAP MACHINE OPERATOR Appointment [facility] Neurosurgery/Ortho Spine [address] [place] [address]. [place] [address] Brandon Kessler MD [address] [place] [phone] CONSULT 03/20/2024 11:15 AM CAP MACHINE OPERATOR Appointment Rheumatology at [facility] [address] [address] DesFreeman brand, DO [address] [place] [address] 03/05/2025 11:30 AM CAP MACHINE OPERATOR Appointment [facility] [address] Electrophysiology [address] [place] [address] documented as of this encounter [...] 0.00 - 0.20 12/29/2023 2:52 PM CDT [facility] Total Protein, Urine, Random 2 0 - 14 mg/dL 12/29/2023 2:52 PM CDT [facility] Creatinine, Urine, Random 41 >20 mg/dL mg/dL 12/29/2023 2:52 PM CDT [facility] Urine Non-blood Collection / Unknown 12/29/2023 9:02 AM CDT 12/29/2023 9:02 AM CDT Narrative [facility] - 12/29/2023 2:52 PM CDT Low urine creatinine values coupled with low urine protein values can artifactually increase the urine protein/creatinine results. Correlate results of ratio with creatinine results. Luke W Desilet DO LAB_1 [facility] [address] * (ABNORMAL) Urinalysis Routine, Micro/Culture if Pos: Clean Catch (12/22/2023 12:00 PM CDT) Urine Culture Comment Urinalysis results do not meet criteria for urine culture reflex. 12/22/2023 12:10 PM [facility] Color Straw 12/22/2023 12:10 PM [facility] Clarity Clear Clear 12/22/2023 12:10 PM [facility] Specific [place] <=1.005(A) 1.005 - 1.030 12/22/2023 12:10 PM [facility] pH 6.0 5.0 - 8.0 12/22/2023 12:10 PM [facility] Protein Negative Neg/Trace 12/22/2023 12:10 PM [facility] Glucose Negative Negative 12/22/2023 12:10 PM [facility] Ketones Negative Negative 12/22/2023 12:10 PM [facility] Urobilinogen 0.2 <2.0 12/22/2023 12:10 PM [facility] Bilirubin Negative Negative 12/22/2023 12:10 PM [facility] Blood Negative Neg/Trace 12/22/2023 12:10 PM [facility] Nitrite Negative Negative 12/22/2023 12:10 PM [facility] Leukocyte Esterase Negative Negative 12/22/2023 12:10 PM [facility] Source Clean Catch 12/22/2023 12:10 PM [facility] Urine URINE SPECIMEN COLLECTION, CLEAN CATCH / Unknown Non-blood Collection / Unknown 12/22/2023 12:00 PM CDT 12/22/2023 12:00 PM CDT Luartie W Desilet DO LAB_1 [facility] [address] [place] [phone] * (ABNORMAL) Complete Blood Count-W/Diff (12/22/2023 11:23 AM CDT) WBC 7.3 3.5 - 10.5 x10(9)/L 12/22/2023 11:28 AM T [facility] RBC 3.88(L) 3.90 - 5.03 x10(12)/L 12/22/2023 11:28 AM [facility] Hemoglobin 11.7(L) 12.0 - 15.5 g/dL 12/22/2023 11:28 AM [facility] HCT 36.4 34.9 - 44.5 % 12/22/2023 11:28 AM [facility] MCV 93.8 80.0 - 100.0 fL 12/22/2023 11:28 AM [facility] MCH 30.2 27.6 - 33.3 pg 12/22/2023 11:28 AM [facility] MCHC 32.1 31.5 - 35.2 g/dL 12/22/2023 11:28 AM [facility] RDW 13.7 11.9 - 15.5 % 12/22/2023 11:28 AM [facility] Platelets 265 150 - 450 x10(9)/L 12/22/2023 11:28 AM [facility] Automated NRBC 0 <=0 /100 WBC 12/22/2023 11:28 AM [facility] Neutrophil Absolute 5.7 1.7 - 7.0 10(9)/L 12/22/2023 11:28 AM [facility] Lymphocyte Absolute 1.0 1.0 - 4.8 10(9)/L 12/22/2023 11:28 AM [facility] Monocyte Absolute 0.4 0.2 - 0.9 10(9)/L 12/22/2023 11:28 AM [facility] Eosinophil Absolute 0.1 0.0 - 0.5 10(9)/L 12/22/2023 11:28 AM CDT [facility] Basophil Absolute 0.0 0.0 - 0.3 10(9)/L 12/22/2023 11:28 AM CDT [facility] Immature Granulocyte % 0.4 0.0 - 0.5 % 12/22/2023 11:28 AM CDT [facility] Blood Venipuncture / Unknown 12/22/2023 11:23 AM CDT 12/22/2023 11:23 AM CDT [facility] Desilet DO LAB_1 Performing Organization Address City/[facility]/ZIP Co de Phone Number [facility] [address] [place] [address] * DNA Double Stranded Antibody IgG (ALBA) (12/22/2023 11:23 AM CDT) Anti-DNA Antibody IgG 15 <200 IU 12/27/2023 2:12 PM CDT [facility] Anti-DNA Antibody IgG Interpretation Negative Negative 12/27/2023 2:12 PM CDT [facility] Blood Venipuncture / Unknown 12/22/2023 11:23 AM CDT 12/22/2023 11:23 AM CDT Narrative [facility] - 12/27/2023 2:12 PM CDT The following results were obtained with the [employer] dsDNA ALBA. dsDNA values obtained with different manufacturers' assay methods may not be used interchangeably. [facility] [address] [place], [place] [address] * C4 Complement (12/22/2023 11:23 AM CDT) C4 Complement 15.0 15.0 - 57.0 mg/dL 12/22/2023 4:07 PM CDT [facility] Blood Venipuncture / Unknown 12/22/2023 11:23 AM CDT 12/22/2023 11:23 AM CDT Freeman Fong Desilet DO LAB_1 Performing Organization Address City/[facility]/ZIP Co de Phone Number [facility] [address] * C3 Complement (12/22/2023 11:23 AM CDT) C3 Complement 83 83 - 193 mg/dL 12/22/2023 4:07 PM CDT [facility] Blood Venipuncture / Unknown 12/22/2023 11:23 AM CDT 12/22/2023 11:23 AM CDT Freeman Valerioilet DO LAB_1 Performing Organization Address [facility] Co de Phone Number [facility] [address] documented in this encounter Visit Diagnoses Diagnosis Systemic lupus erythematosus, unspecified SLE type, unspecified organ involvement status (HRC) documented in this encounter Care Teams Lay Out And Detail Drafter Relationship Specialty Start Date End Date Dalton Esqueda MD [address] [place] [address] PCP - General Family Practice 06/23/23 documented as of this encounter
--- OUTSIDE RECORDS SUMMARY | 2024-03-13 09:40 | XMS_ITS | Encounter Summary ---
Author Organization [facility] Address [address] [place] [address] Care Team Providers Care Box Car Checker Name Role Phone Dalton Esqueda MD Primary Care Provider [phone] Reason for Visit * Reason Comments Follow-up Encounter Details Date Type Department Care Team (Late st Contact Info) Description 12/22/2023 10:45 AM CDT Office Visit Rheumatology at [facility] [address] [address] Desilet, Freeman Fong, DO [address] [place], [place] [address] Systemic lupus erythematosus, unspecified SLE type, unspecified [...] 0.6 oz pur e alcohol) [facility] Utilities Answer Date Recorded In [...] at this time. Keep working with the health service coordinator on adjusting your blood pressure medications. I will send my note to your health service coordinator as well. To help with reducing blood [...] with several outside rheumatologists (Dr. Louis at [facility] and Dr. Cordova at [facility]) - several prior medication intolerances as noted below - at presentation to [facility] February 2023, appeared to have [...] 2023. 2. Osteoporosis -most recent DEXA scan ([facility]) July 2022 with osteoporosis, most severe T-score of -2.8 at the left femoral neck -long-term steroid use for lupus -previously on Evenity briefly but discontinued due to musculoskeletal pain. No prior reported bisphosphonate use prior to [facility]. -started oral alendronate 70 mg weekly February 2023 Rheumatologic Serologies: Positive: JUJU (1:2560 in speckled pattern), SSA, SSB, Ro 52, Ro 60, Negative: RF, CCP, dsDNA, Lyme, hepatitis-B core antibody, hepatitis-C antibody, hepatitis-B surface antigen, HIV antigen/antibody, SPEP Rheumatologic medications: Current: Mycophenolate mofetil (CellCept) 1000 mg twice a day Prednisone 7.5 mg daily (instructor looping) Hydroxychloroquine 200 mg daily (February 2023-present) Oral [...] Also saw vascular surgery in November at [facility] and is planning for aorta [...] relevant results: US CAROTID DUPLEX BILATERAL Order: [id number] Narrative VASCULAR ULTRASOUND REPORT NICOLLE COVINGTON : 1955 Study Date: 12/07/2023 8:22:07 AM Age: 68 years Tech: JAG Gender: F Referring MD: MITCHEL MARMOLEJO Site: [facility] Study performed: Carotid Indication for Study: [...] www.intersocietal.org/vascular US ANKLE BRACHIAL INDEX BILATERAL Order: [id number] Narrative VASCULAR ULTRASOUND REPORT NICOLLE COVINGTON : 1955 Study Date: 12/07/2023 8:16:00 AM Age: 68 years Tech: JAG Gender: F Referring MD: MITCHEL MARMOLEJO Site: [facility] Study performed: Lower extremity resting ISMAEL, [...] 168 Index +-----+ +--------+ +-----+ 0.97 163 HARDWARE TEST ENGINEER 89 0.53 +-----+ +--------+ +-----+ 0.94 158 DPA 79 0.47 +-----+ +--------+ +-----+ 0.60 101 Digit 1 54 0.32 +-----+ +--------+ +-----+ NEVA Araujo. Electronically signed on 12/07/2023 10:22:46 AM This study was performed and interpreted by a service accredited by the Intersocietal AccreditationCommission (IAC/Vascular), www.intersocietal.org/vascular Report generated by [employer]. US Abd Aorta Order: [id number] Narrative VASCULAR ULTRASOUND REPORT NICOLLE COVINGTON : 1955 Study Date: 12/07/2023 9:07:34 AM Age: 68 years Tech: JAG Gender: F Referring MD: MITCHEL MARMOLEJO Site: [facility] Vascular [facility] Study performed: Aorta, Iliac, (bilateral) Indication for [...] Intersocietal AccreditationCommission (IAC/Vascular), www.intersocietal.org/vascular Report generated by [employer]. XR Chest 2 Views Order: [id number] Status: Final result Visible to patient: Yes (seen) Next appt: Today at 10:45 AM in Rheumatology (Freeman Lopez DO) Details Reading Physician Reading Date Result Priority Delbert Puente MD [phone] 11/11/2023 Narrative & Impression IMPRESSION COMPARISON: 10/10/2023 FINDINGS: New 2-lead pacer in satisfactory position. No pneumothorax. Lungs are clear. The remainder of the examination is stable. Exam Ended: 11/11/23 19:41 Last Resulted: 11/11/23 19:54 XR Portable Chest 1 View Order: [id number] Status: Final result Visible to patient: Yes (seen) Next appt: Today at 10:45 AM in Rheumatology (Luke W Desilet, DO) Details Reading Physician Reading Date Result Priority Carlo Mejia MD [phone] 11/08/2023 Narrative & Impression IMPRESSION COMPARISON: None. FINDINGS: Normal cardiomediastinal silhouette and pulmonary vasculature. Lungs appear clear. No pneumothorax or pleural effusion. Surgical clips in the right neck. Exam Ended: 11/08/23 20:56 Last Resulted: 11/08/23 21:25 CT Angio Neck Head W IV Cont Order: [id number] Status: Final result Visible to patient: Yes (seen) Next appt: Today at 10:45 AM in Rheumatology (Luke W Desilet, DO) Details Reading Physician Reading Date Result Priority Olivier Cramer MD [phone] 11/08/2023 STAT Narrative & Impression IMPRESSION INDICATION: sams, htn, known aneurysms TECHNIQUE: CT angiogram of the [place] of [place] and CT angiogram of the [...] 15:23 CT Head WO IV Cont Order: [id number] Status: Final result Visible to patient: Yes (seen) Next appt: Today at 10:45 AM in Rheumatology (Freeman Lopez, ) Details Reading Physician Reading Date Result Priority Olivier Cramer MD [phone] 11/08/2023 STAT Narrative & Impression IMPRESSION COMPARISON: [...] Procedure Staff Interpreting Provider: FAUSTO GARCIA MD Rack Pusher: EE Ordering Provider: JOLEEN Cisneros Attending Physician: [...] vascular procedure in about 3 weeks at [facility] (aorta and iliac angiogram with [...] 71 minutes including, but not limited to, [id number] time spent reviewing records, counseling, and coordination of care. documented in this encounter Plan of Treatment Upcoming Encounters Date Type Department Care Team (Late st Contact Info) Description 03/14/2024 2:00 PM NITRATING ACID MIXER Appointment [facility] Neurosurgery/Ortho Spine [address] [place] [address]. [place] [address] Brandon Kessler MD [address] [place] [id number] CONSULT 03/20/2024 11:15 AM NITRATING ACID MIXER Appointment Rheumatology at [facility] [place] [address] [facility] [address] [place], [place] [id number] Freeman Lopez DO [address] [place], [place] [address] 03/05/2025 11:30 AM NITRATING ACID MIXER Appointment [facility] [address] Electrophysiology [address] [place] [phone] documented as of this encounter Results * (ABNORMAL) Urinalysis Routine, Micro/Culture if Pos: Clean Catch (12/22/2023 12:00 PM CDT) Urine Culture Comment Urinalysis results do not meet criteria for urine culture reflex. 12/22/2023 12:10 PM CDT [facility] Color Straw 12/22/2023 12:10 PM CDT [facility] Clarity Clear Clear 12/22/2023 12:10 PM CDT [facility] Specific Jackson <=1.005(A) 1.005 - 1.030 12/22/2023 12:10 PM CDT [facility] pH 6.0 5.0 - 8.0 12/22/2023 12:10 PM CDT [facility] Protein Negative Neg/Trace 12/22/2023 12:10 PM CDT [facility] Glucose Negative Negative 12/22/2023 12:10 PM CDT [facility] Ketones Negative Negative 12/22/2023 12:10 PM CDT [facility] Urobilinogen 0.2 <2.0 12/22/2023 12:10 PM CDT [facility] Bilirubin Negative Negative 12/22/2023 12:10 PM CDT [facility] Blood Negative Neg/Trace 12/22/2023 12:10 PM CDT [facility] Nitrite Negative Negative 12/22/2023 12:10 PM CDT [facility] Leukocyte Esterase Negative Negative 12/22/2023 12:10 PM CDT [facility] Source Clean Catch 12/22/2023 12:10 PM CDT [facility] Urine URINE SPECIMEN COLLECTION, CLEAN CATCH / Unknown Non-blood Collection / Unknown 12/22/2023 12:00 PM CDT 12/22/2023 12:00 PM CDT Luke W Desilet DO LAB_1 [facility] [address] [place] [address] * DNA Double Stranded Antibody IgG (ALBA) (12/22/2023 11:23 AM CDT) Anti-DNA Antibody IgG 15 <200 IU 12/27/2023 2:12 PM CDT [facility] Anti-DNA Antibody IgG Interpretation Negative Negative 12/27/2023 2:12 PM CDT [facility] Blood Venipuncture / Unknown 12/22/2023 11:23 AM CDT 12/22/2023 11:23 AM CDT Narrative [facility] - 12/27/2023 2:12 PM CDT The following results were obtained with the [employer] QUANTA Lite dsDNA ALBA. dsDNA values obtained with different manufacturers' assay methods may not be used interchangeably. Luke W Desilet DO LAB_1 Performing Organization Address [facility] de Phone Number [facility] [address] * C4 Complement (12/22/2023 11:23 AM CDT) C4 Complement 15.0 15.0 - 57.0 mg/dL 12/22/2023 4:07 PM CDT [facility] Blood Venipuncture / Unknown 12/22/2023 11:23 AM CDT 12/22/2023 11:23 AM CDT Freeman Lopez DO LAB_1 Performing Organization Address [facility] de Phone Number [facility] [address] * C3 Complement (12/22/2023 11:23 AM CDT) C3 Complement 83 83 - 193 mg/dL 12/22/2023 4:07 PM CDT [facility] Blood Venipuncture / Unknown 12/22/2023 11:23 AM CDT 12/22/2023 11:23 AM CDT Freeman Lopez DO LAB_1 Performing Organization Address [facility] de Phone Number [facility] [address] documented in this encounter Visit Diagnoses Diagnosis Systemic lupus erythematosus, unspecified SLE type, unspecified organ involvement status (HRC)- Primary High risk medication use Encounter for long-term (current) use of other medications Osteoporosis, unspecified osteoporosis type, unspecified pathological fracture presence (HRC) Essential hypertension (HRC) Unspecified essential hypertension Vaccine counseling Pre-op evaluation Preoperative examination, unspecified documented in this encounter Care Teams Box Car Checker Relationship Specialty Start Date End Date Dalton Esqueda MD [address] [place] [address] PCP - General Family Practice 06/23/23 documented as of this encounter
--- OUTSIDE RECORDS SUMMARY | 2024-03-13 09:40 | XMS_ITS | Clinical Summary ---
Author Organization [facility] Address [address] [place] [address] Care Team Providers Care Health Physicist Name Role Phone Dalton Esqueda MD Primary Care Provider [phone] Source Comments You are receiving this document [...] for each transition of care or referral. Real [facility] Allergies Active Allergy Reactions Criticality Noted Date [...] mouth two times daily as needed. Active Magnesium Bisglycinate (MAG GLYCINATE OR) Take [...] Take by mouth daily. ProOmega Curcumin by ahoyDoc: Take 3 capsules by mouth daily Active triamcinolone acetonide (KENALOG) 0.1 % ointment Apply topically two times a day. To areas of rash 80 g 2 07/11/19 24 Active Additional Information Patient taking differently:TopicalPRN, [...] every week. Take 30 minutes before first smto-pbjwq-rjokncl ion on mornings. Avoid lying down for [...] 180 Tablet 1 12/22/19 24 025 Active hydroxychloroquine (PLAQUENIL) 200 MG tablet TAKE ONE TABLET BY MOUTH EVERY DAY 90 Tablet 2 03/12/20 24 Active hydroxychloroquine (PLAQUENIL) 200 MG tablet Take 1 Tablet (200 mg) by mouth daily. 90 Tablet 3 03/22/20 23 024 Discontinued Active Problems Problem Noted Date [...] Encounters Date Type Department Care Team Description 03/10/2024 Refill Rheumatology at [facility] [place] [address] [address] [address] [place], [place] [address] Desilet, Freeman W, DO Refill (hydroxychloroquine (PLAQUENIL) 200 MG tablet [Pharmacy Med Name: HYDROXYCHLOROQUINE SULF 200 TB]) 03/06/2024 1:00 PM SOFTWARE TEST AUTOMATION ENGINEER Evaluation [facility] [address] Electrophysiology [address] [place] [address] SSS (sick sinus syndrome) (HRC) (Primary Dx); Cardiac pacemaker in situ 02/21/2024 Telephone [facility] Neuro[facility]/Ortho Spine [address] [facility] [place] [address] Provider, Foreign Images 02/08/2024 2:30 PM CDT Nursing [facility] [address] [facility] [place] [address] Nurse, P6500 Ephys 02/08/2024 Telephone [facility] [address] [place] [address] Gilbert Grey MD Concerns About A Surgical Site After A Procedure 01/11/2024 Telephone Rheumatology at [facility] [address] [place] [address] Freeman Lopez DO Follow-up 01/06/2024 1:30 PM CDT Office Visit [facility] [address] Cardiology [address] [place] [address] Wilfredo Howell III, MD Hypertension, unspecified type (HRC) (Primary Dx); SSS (sick sinus syndrome) (HRC); Cardiac pacemaker in situ; PAD (peripheral artery disease) (HRC); Mixed hyperlipidemia (HRC) 12/29/2023 10:30 AM CDT Lab Visit [facility] [address] [place] [address] Systemic lupus erythematosus, unspecified SLE type, unspecified organ involvement status (HRC) 12/22/2023 11:20 AM CDT Lab Visit [facility] [address] [place] [address] Systemic lupus erythematosus, unspecified SLE type, unspecified organ involvement status (HRC) 12/22/2023 10:45 AM CDT Office Visit Rheumatology at [facility] [address] [address] [address] [place] [address] Freeman Lopez DO Systemic lupus erythematosus, unspecified SLE type, unspecified organ involvement status (HRC) (Primary Dx); High risk medication use; Osteoporosis, unspecified osteoporosis type, unspecified pathological fracture presence (HRC); Essential hypertension (HRC); Vaccine counseling; Pre-op evaluation 12/22/2023 Telephone [facility] [address] [place], [place] [address] DesjagdishtFreeman, Other (The following lab test(s) utpcr are unable to be performed and have been cancelled. Please reorder the test(s) and contact the patient if still clinically indicated.//Terri Galeana 12/22/2023, 4:49 PM/) 12/20/2023 Telephone [facility] [address] [place] [address] Rosa Elena uHynh PA-C RESULTS, TEST 12/15/2023 1:20 PM CDT Lab Visit [facility] [address] [place] [phone] Pre-op exam 12/15/2023 12:40 PM CDT Office Visit [facility] [place] [address] Cardiology [address] [place] [address] Rosa Elena Huynh PA-C Pre-op exam (Primary Dx); Hypertension, unspecified type (HRC); Hyperlipidemia, unspecified hyperlipidemia type (HRC); Hypertensive emergency; SSS (sick sinus syndrome) (HRC); Cardiac pacemaker in situ; Sinus bradycardia; Chronotropic incompetence from Last 3 Months Immunizations Name Administration Dates Next Due Flu Vac (3+ yrs) 03/21/2013, 2,02/26/2011, 010,02/06/2009 Flu Vac Preserv Free (3+yrs) 02/26/2011 [id number] 04/15/2009 Influenza [id number] 2009 Influenza IIV4 (Quadrivalent ) 0.5mL (02019) 01/17/2017,03/03/2016,01/15/2015, 014,03/21/2013,03/13/2012,02/26/2011,,04/15/2009 PPSV23 (Pneumovax) 04/06/2002 Td 04/06/2002 Tdap 01/31/2023,08/23/2011 Social History Tobacco Use Types Packs/Day Years Used Date Smoking Tobacco: Former Cigarettes Smokeless Tobacco: Never Tobacco Cessation:Counseling Given: Not Answered Alcohol Use Standard Drinks/Week Comments Not Currently 0 (1 standard drink = 0.6 oz pur e alcohol) [facility] Utilities Answer Date Recorded In the past 12 months has th e [employer], gas, oil, or water company threatened to [...] 77 01/06/2024 1:14 PM CDT Temperature 36.6 C (97.9 F) 11/13/2023 9:00 AM CDT Respiratory Rate 15 11/13/2023 9:00 AM CDT [...] st Contact Info) Description 03/14/2024 2:00 PM SOFTWARE TEST AUTOMATION ENGINEER Appointment [facility]o Spine [address] [facility] [place] [address] Brandon Kessler MD [address] [place] [address] CONSULT 03/20/2024 11:15 AM SOFTWARE TEST AUTOMATION ENGINEER Appointment Rheumatology at [facility] [place] [address] [address] [address] [place], [place] [phone] Desilet, Luke W, DO [address] [place] [address] 03/05/2025 11:30 AM SOFTWARE TEST AUTOMATION ENGINEER Appointment [facility] [address] Electrophysiology [address] [place] [address] Health Maintenance Due Date Last Done Comments [...] Tdap) 01/31/2033 02/01/20, 08/23/2011, 04/06/2002 Dexa Completed 02/22/2020, 01/25, 03/20/2018 HepA Aged Out No longer eligi ble [...] this topic Medical Devices Implanted Type Area Product Marketing Programs Manager Device Identifier Shelf Expiration Date Model / Serial / Lot Dual Chamber Medtronic Dianne Xt Dr Roxie Diaz-Mri Conditional-10/23 Implanted:11/10 by Gilbert Grey MD (Quantity not on file) Cardiac- Rhythm Left: CHEST Medtronic - Cardiovascular Description:Dual Chamber Med tronic Dianne XT DR ROXIE Diaz - MRI conditional Procedures Procedure Name Priority Date/Time Associated Diagnosis Comments PACEMAKER EVALUATION Routine 03/06/2024 1:05 PM SOFTWARE TEST AUTOMATION ENGINEER SSS (sick sinus syndrome) (HRC) Cardiac pacemaker in situ TP/CREA RATIO, URINE Routine 12/29/2023 9:02 AM [...] Routine 12/15/2023 12:40 PM CDT Pre-op exam from Last 3 Months Results * Pacemaker Evaluation (03/06/2024 1:05 PM SOFTWARE TEST AUTOMATION ENGINEER) 03/06/2024 1:05 PM SOFTWARE TEST AUTOMATION ENGINEER Narrative PACEART - 03/06/2024 1:05 PM SOFTWARE TEST AUTOMATION ENGINEER Normal pacemaker function. Patient presents for routine follow-up in [place]. No new symptoms related to device. The device was interrogated and reprogrammed to assess data, thresholds, and function. PPM reprogrammed per clinic protocol. No atrial or ventricular high rate episodes noted. RV paced <0.1%. Reviewed usp follow-up plan with pt. Battery voltage WNL. [facility] transmission every 3 months, RTC in 1 year. Please contact [phone] if any questions. DSK James Tejada MD PN ELECTROPHYSIOLOGY ORDERABLE PACEART * TP/Crea Ratio, Urine (12/29/2023 9:02 AM [...] Fong Desilet DO LAB_1 Performing Organization Address [facility]/ZIP Co de Phone Number [facility] [address] * (ABNORMAL) Urinalysis Routine, Micro/Culture if Pos: Clean Catch (12/22/2023 12:00 PM CDT) Pathologist [facility] Urine Culture Comment Urinalysis results do not meet criteria for urine culture reflex. 12/22/2023 12:10 PM [facility] Color Straw 12/22/2023 12:10 PM [facility] Clarity Clear Clear 12/22/2023 12:10 PM [facility] Specific Chandler <=1.005(A) 1.005 - 1.030 12/22/2023 12:10 PM [facility] pH 6.0 5.0 - 8.0 12/22/2023 12:10 PM [facility] Protein Negative Neg/Trace 12/22/2023 12:10 PM [facility] Glucose Negative Negative 12/22/2023 12:10 PM [facility] Ketones Negative Negative 12/22/2023 12:10 PM CDT [facility] Urobilinogen 0.2 <2.0 12/22/2023 12:10 PM CDT [facility] Bilirubin Negative Negative 12/22/2023 12:10 PM CDT [facility] Blood Negative Neg/Trace 12/22/2023 12:10 PM CDT [facility] Nitrite Negative Negative 12/22/2023 12:10 PM CDT [facility] Leukocyte Esterase Negative Negative 12/22/2023 12:10 PM CDT [facility] Source Clean Catch 12/22/2023 12:10 PM T [facility] Urine URINE SPECIMEN COLLECTION, CLEAN CATCH / Unknown Non-blood Collection / Unknown 12/22/2023 12:00 PM CDT 12/22/2023 12:00 PM CDT Luke Desilet DO LAB_1 Performing Organization [address] [facility] Co de Phone Number [facility] [address] [place] [address] * DNA Double Stranded Antibody IgG (ALBA) (12/22/2023 11:23 AM CDT) Pathologist [facility] Anti-DNA Antibody IgG 15 <200 IU 12/27/2023 2:12 PM CDT [facility] Anti-DNA Antibody IgG Interpretation Negative Negative 12/27/2023 2:12 PM CDT [facility] Blood Venipuncture / Unknown 12/22/2023 11:23 AM CDT 12/22/2023 11:23 AM CDT Narrative [facility] - 12/27/2023 2:12 PM CDT The following results were obtained with the [employer]MorePallet[employer] QUANTA Lite dsDNA ALBA. dsDNA values obtained with different manufacturers' assay methods may not be used interchangeably. Luke Tethis Desilet DO LAB_1 Performing Organization Address City/[facility]/ZIP Co de Phone Number [facility] [address] [place], [place] [address] * (ABNORMAL) Complete Blood Count-W/Diff (12/22/2023 11:23 AM CDT) Pathologist [facility] WBC 7.3 3.5 - 10.5 x10(9)/L 12/22/2023 11:28 AM [facility] RBC 3.88(L) 3.90 - 5.03 x10(12)/L 12/22/2023 11:28 AM [facility] Hemoglobin 11.7(L) 12.0 - 15.5 g/dL 12/22/2023 11:28 AM [facility] HCT 36.4 34.9 - 44.5 % 12/22/2023 11:28 AM [facility] MCV 93.8 80.0 - 100.0 fL 12/22/2023 11:28 AM [facility] MCH 30.2 27.6 - 33.3 pg 12/22/2023 11:[address] [facility] MCHC 32.1 31.5 - 35.2 g/dL 12/22/2023 11:28 AM [facility] RDW 13.7 11.9 - 15.5 % 12/22/2023 11:28 AM [facility] Platelets 265 150 - 450 x10(9)/L 12/22/2023 11:[address] [facility] Automated NRBC 0 <=0 /100 WBC 12/22/2023 11:28 AM [facility] Neutrophil Absolute 5.7 1.7 - 7.0 10(9)/L 12/22/2023 11:[address] [facility] Lymphocyte Absolute 1.0 1.0 - 4.8 10(9)/L 12/22/2023 11:28 AM [facility] Monocyte Absolute 0.4 0.2 - 0.9 10(9)/L 12/22/2023 11:[address] [facility] Eosinophil Absolute 0.1 0.0 - 0.5 10(9)/L 12/22/2023 11:28 AM [facility] Basophil Absolute 0.0 0.0 - 0.3 10(9)/L 12/22/2023 11:[address] [facility] Immature Granulocyte % 0.4 0.0 - 0.5 % 12/22/2023 11:[address] [facility] Blood Venipuncture / Unknown 12/22/2023 11:23 AM CDT 12/22/2023 11:23 AM CDT Freeman Fong Desilet DO LAB_1 Performing Organization Address [facility]/ZIP Co de Phone Number [facility] [address] [place] [address] * C4 Complement (12/22/2023 11:23 AM CDT) C4 Complement 15.0 15.0 - 57.0 mg/dL 12/22/2023 4:07 PM CDT [facility] Blood Venipuncture / Unknown 12/22/2023 11:23 AM CDT 12/22/2023 11:23 AM CDT Freeman Fong Desilet DO LAB_1 Performing Organization Address [facility] de Phone Number [facility] [address] * C3 Complement (12/22/2023 11:23 AM CDT) C3 Complement 83 83 - 193 mg/dL 12/22/2023 4:07 PM CDT [facility] Blood Venipuncture / Unknown 12/22/2023 11:23 AM CDT 12/22/2023 11:23 AM CDT Freeman Fong Desilet DO LAB_1 Performing Organization Address [facility] de Phone Number [facility] * (ABNORMAL) Basic Metabolic Panel (12/15/2023 1:14 PM CDT) Sodium 137 136 - 145 mmol/L 12/15/2023 5:32 PM CDT [facility] Potassium 5.1 3.5 - 5.1 mmol/L 12/15/2023 5:32 PM CDT [facility] Chloride 103 98 - 109 mmol/L 12/15/2023 5:32 PM CDT [facility] CO2 20 20 - 29 mmol/L 12/15/2023 5:32 PM [facility] Anion Gap 14 6 - 16 mmol/L 12/15/2023 5:32 PM [facility] Calcium 11.1(H) 8.4 - 10.4 mg/dL 12/15/2023 5:32 PM [facility] Comment:Low serum albumin ma y artificially lower total calcium, without impacting ionized calcium concentrations. If patient has or is at risk for hypoalbuminemia, consider ionized serum calcium to more accurately assess calcium status. BUN 57(H) 7 - 26 mg/dL 12/15/2023 5:32 PM [facility] Creatinine 1.09(H) 0.55 - 1.02 mg/dL 12/15/2023 5:32 PM [facility] Glucose 119(H) 70 - 100 mg/dL 12/15/2023 5:32 PM [facility] Comment:The given reference range is for the fasting state. Non-fasting reference range for glucose is 70 - 180 mg/dL. GFR, Estimated 55(L) >60 mL/min/1. 73m2 12/15/2023 5:32 PM [facility] Hours Fasting 0.0 8 - 12 Hours 12/15/2023 5:32 PM [facility] Comment:Patient has indicate d a non-fasting status. Blood Venipuncture / Unknown 12/15/2023 1:14 PM CDT 12/15/2023 1:40 PM CDT Narrative [facility] - 12/15/2023 5:32 PM CDT The National Kidney Disease Education Program suggests measuring Cystatin C in patients with eGFRcrea of 45 to 59 ml/min/1.73^2 who do not have other markers of kidney damage (i.e. elevated urine Albumin/Creatinine Ratio or a prior Cystatin C confirming the presence of chronic kidney disease). Rosa Elena Huynh PA-C LAB_1 [facility] [address] [place] [address], [facility] * ECG 12 Lead Outpatient (12/15/2023 12:40 PM CDT) Ventricular Rate 65 BPM [facility] Atrial Rate 65 BPM [facility] P-R Interval 204 ms [facility] QRS Duration 90 ms [facility] QT 382 ms MUSE [facility] QTc 397 ms MUSE [facility] P [place] -3 degrees MUSE GHP R [place] 35 degrees MUSE GHP T [place] 66 degrees MUSE [facility] 12/15/2023 12:4 0 PM CDT Narrative [facility] - 12/15/2023 4:07 PM CDT Atrial-paced rhythm Poor R wave progression Abnormal ECG When compared with ECG of 12-NOV-2023 06:51, No significant change was found Confirmed by Christopher Sosa ([id number]) on 12/15/2023 4:07:32 PM Procedure Note Lemuel Sosa MD - 12/15/2023 Atrial-paced rhythm Poor R wave progression Abnormal ECG When compared with ECG of 12-NOV-2023 06:51, No significant change was found Confirmed by Christopher Sosa ([id number]) on 12/15/2023 4:07:32 PM Rosa Elena Huynh PA-C PN ECG ORDERABLES [facility] [address] [place] [address] from Last 3 Months Advance Directives * [...] for unstable rhythm? Unaddressed/Y es Care Teams Health Physicist Relationship Specialty Start Date End Date Dalton Esqueda MD [address] [place] [address] PCP - General Family Practice 06/23/23
--- OUTSIDE RECORDS SUMMARY | 2024-03-13 09:40 | XMS_ITS | Encounter Summary ---
Author Organization [facility] Address [address] [place] [address] Care Team Providers Care Tin Worker Name Role Phone Dalton Esqueda MD Primary Care Provider Encounter Details Date Type Department Care Team (Late st Contact Info) Description 02/21/2024 Telephone [facility] Neurosurgery/Ortho Spine [address] [facility]. [place], [place] [phone] Provider, Foreign Images [address] [place] [address] Social History Tobacco Use Types Packs/Day Years Used Date Smoking Tobacco: Former Cigarettes Smokeless Tobacco: Never Alcohol Use Standard Drinks/Week Comments Not Currently 0 (1 standard drink = 0.6 oz pur e alcohol) [facility] Utilities Answer Date Recorded In the past 12 months has [facility] [employer], gas, oil, or water [employer] threatened to shut off services in your [...] as of this encounter Nursing Notes * Aleksander Zelaya MA - 02/21/2024 3:00 PM CDT Carotid Bilateral images on 12/07/23 at [facility] pushed to PACS and Linked. Report in Care Everywhere. HCT images on 11/08/23 at [facility] pushed to PACS and Linked. Report in Care Everywhere. CT Angio head/brain images on 11/08/23 at [facility] pushed to PACS and Linked. Report in Care Everywhere. CT Head images on 11/14/21 at [facility] pushed to PACS and Linked. Report in Care Everywhere. CT Angio head/brain images on 11/14/21 at [facility] pushed to PACS and Linked. Report in Care Everywhere. MR Angio images on 06/01/19 at [facility] pushed to PACS and Linked. Report in Care Everywhere. MR head images on 06/01/19 at [facility] pushed to PACS and Linked. Report in Care Everywhere. MR head/brain images on 05/30/18 at [facility] pushed to PACS and Linked. Report in Care Everywhere. MRA Head/brain images on 05/30/18 at [facility] pushed to PACS and Linked. Report in Care Everywhere. Aleksander Solo MA 02/21/2024 3:49 PM documented in this encounter Plan of Treatment Upcoming Encounters Date Type Department Care Team (Late st Contact Info) Description 03/14/2024 2:00 PM MEDICAL CHIEF TECHNICIAN Appointment [facility] Neurosurgery/Ortho Spine [address] [place] [address]. [place] [address] Brandon Kessler MD [address] [place] [address] CONSULT 03/20/2024 11:15 AM MEDICAL CHIEF TECHNICIAN Appointment Rheumatology at [facility] [place] [address] [facility] [address] [place], [place] [address] Desilet, Luke W, DO [address] [place], [place] [address] 03/05/2025 11:30 AM MEDICAL CHIEF TECHNICIAN Appointment [facility] [address] Electrophysiology [address] [place] [phone] documented as of this encounter Results * Foreign Image(S) US Carotid (12/07/2023 12:00 AM CDT) Narrative EXTERNAL RESULTS - 02/21/2024 3:36 PM CDT These outside images have been uploaded into PACS. If the results were provided, they will be located in the patient's chart under the Media or Imaging tab. Foreign Images Provider RAD NON-REPORTAB LES EXTERNAL RESULTS * Foreign Image(s) CT Head WO IV Cont (11/08/2023 12:05 AM CDT) Narrative EXTERNAL RESULTS - 02/21/2024 3:36 PM CDT These outside images have been uploaded into PACS. If the results were provided, they will be located in the patient's chart under the Media or Imaging tab. Foreign Images Provider RAD NON-REPORTAB LES Performing Organization Address [facility] Phone Number EXTERNAL RESULTS * Foreign Image(s) CT Angio Head (11/08/2023 12:00 AM CDT) Narrative EXTERNAL RESULTS - 02/21/2024 3:36 PM CDT These outside images have been uploaded into PACS. If the results were provided, they will be located in the patient's chart under the Media or Imaging tab. Foreign Images Provider RAD NON-REPORTAB LES Performing Organization Address [facility] [address] [facility] Phone Number EXTERNAL RESULTS * Foreign Image(s) CT Head WO IV Cont (11/14/2021 12:05 AM CDT) Narrative EXTERNAL RESULTS - 02/21/2024 3:36 PM CDT These outside images have been uploaded into PACS. If the results were provided, they will be located in the patient's chart under the Media or Imaging tab. Foreign Images Provider RAD NON-REPORTAB LES Performing Organization Address [facility] Phone Number EXTERNAL RESULTS * Foreign Image(s) CT Angio Head (11/14/2021 12:00 AM CDT) Narrative EXTERNAL RESULTS - 02/21/2024 3:36 PM CDT These outside images have been uploaded into PACS. If the results were provided, they will be located in the patient's chart under the Media or Imaging tab. Foreign Images Provider RAD NON-REPORTAB LES Performing Organization Address [facility] [address] [facility] Phone Number EXTERNAL RESULTS * Foreign Image(s) MR Angio Head (06/01/2019 12:05 AM MEDICAL CHIEF TECHNICIAN) Narrative EXTERNAL RESULTS - 02/21/2024 3:36 PM CDT These outside images have been uploaded into PACS. If the results were provided, they will be located in the patient's chart under the Media or Imaging tab. Foreign Images Provider RAD NON-REPORTAB LES Performing Organization Address [facility] [address]/[facility] de Phone Number EXTERNAL RESULTS * Foreign Image(s) MR Head/Brain WO IV Cont (06/01/2019 12:00 AM MEDICAL CHIEF TECHNICIAN) Narrative EXTERNAL RESULTS - 02/21/2024 3:36 PM CDT These outside images have been uploaded into PACS. If the results were provided, they will be located in the patient's chart under the Media or Imaging tab. Foreign Images Provider RAD NON-REPORTAB LES Performing Organization Address [facility] [address] [facility] de Phone Number EXTERNAL RESULTS * Foreign Image(s) MR Head/Brain WO IV Cont (05/30/2018 12:05 AM MEDICAL CHIEF TECHNICIAN) Narrative EXTERNAL RESULTS - 02/21/2024 3:36 PM CDT These outside images have been uploaded into PACS. If the results were provided, they will be located in the patient's chart under the Media or Imaging tab. Foreign Images Provider RAD NON-REPORTAB LES Performing Organization Address [facility] [address]/[facility] de Phone Number EXTERNAL RESULTS * Foreign Image(s) MR Angio Head (05/30/2018 12:00 AM MEDICAL CHIEF TECHNICIAN) Narrative EXTERNAL RESULTS - 02/21/2024 3:36 PM CDT These outside images have been uploaded into PACS. If the results were provided, they will be located in the patient's chart under the Media or Imaging tab. Foreign Images Provider RAD NON-REPORTAB LES Performing Organization Address City/[facility] [address]/[facility] Co de Phone Number EXTERNAL RESULTS documented in this encounter Visit Diagnoses Not on filedocumented in this encounter Care Teams Tin Worker Relationship Specialty Start Date End Date Dalton Esqueda MD [address] [place] [address] PCP - General Family Practice 06/23/23 documented as of this encounter
--- OUTSIDE RECORDS SUMMARY | 2024-03-13 09:41 | XMS_ITS | Encounter Summary ---
Author Organization [employer] Address [address] [place] [address] Care Team Providers Care Head Transfer Clerk Name Role Phone Dalton Esqueda MD Primary Care Provider [phone] Reason for Visit * Reason Comments Hypertension Encounter Details Date Type Department Care Team (Late st Contact Info) Description 11/17/2023 Telephone [facility] Cardiology [place] [address] [place] [address] Wilfredo Howell III, MD [address] [place] [address] Hypertension Social History Tobacco Use Types Packs/Day Years Used Date Smoking Tobacco: Former Cigarettes Smokeless Tobacco: Never Alcohol Use Standard Drinks/Week Comments Not Currently 0 (1 standard drink = 0.6 oz pur e alcohol) [facility] Utilities Answer Date Recorded In the past 12 months has [employer], gas, oil, or water [employer] threatened to shut off services in your [...] as of this encounter Progress Notes * Destiny Alvarez RN - 11/28/2023 10:57 AM CDTAddended by: DESTINY ALVAREZ on: 11/28/2023 10:57 AM Modules accepted: Orders documented in this encounter Nursing Notes * Destiny Alvarez RN - 12/08/2023 10:22 AM CDT Nicolle has followed up with Yanci since we spoke with BP updates. * Destiny Alvarez RN - 11/28/2023 10:49 AM CDT BP after stopping nifedipine 159/65 AFTER taking morning medication. Other examples of BP at various times of day before and after BP medication were all >150/70, HR: 110 bpm. Nicolle is agreeable to increase carvedilol as suggested by Francia Huynh. * Destiny Alvarez RN - 11/24/2023 2:48 PM CDT IF BP still elevated I would have her increase carvedilol to 12.5 mg BID as she has a PPM now. * Destiny Alvarez RN - 11/23/2023 2:37 PM CDT [...] st Contact Info) Description 03/14/2024 2:00 PM ETCHER MACHINE Appointment [facility] Neurosurgery/Ortho Spine [address] [place] [address]. [place] [address] Brandon Kessler MD [address] [place] [address] CONSULT 03/20/2024 11:15 AM ETCHER MACHINE Appointment Rheumatology at [facility] [address] [address] DesiletFreeman W, DO [address] [place], [place] [id number] 03/05/2025 11:30 AM ETCHER MACHINE Appointment Ghislaine Tamika Joseph [address] Electrophysiology [address] [place] [address] documented as of this encounter Visit Diagnoses Not on filedocumented in this encounter Care Teams Head Transfer Clerk Relationship Specialty Start Date End Date Dalton Esqueda MD [address] [place] [address] PCP - General Family Practice 06/23/23 documented as of this encounter
--- OUTSIDE RECORDS SUMMARY | 2024-03-13 09:41 | XMS_ITS | Encounter Summary ---
Author Organization [employer] Address [address] [place] [address] Care Team Providers Care Post Exchange Manager Name Role Phone Dalton Esqueda MD Primary Care Provider [phone] Reason for Visit * Reason Comments Follow-up Encounter Details Date Type Department Care Team (Late st Contact Info) Description 12/15/2023 12:40 PM CDT Office Visit [facility] [address] Cardiology [address] [place] [address] Rosa Elena Huynh PA-C [address] [place], [place] [address] Pre-op exam (Primary Dx); Hypertension, unspecified type (HRC); Hyperlipidemia, unspecified hyperlipidemia type (HRC); Hypertensive emergency; SSS (sick sinus syndrome) (HRC); Cardiac pacemaker in situ; Sinus bradycardia; Chronotropic incompetence Social History Tobacco Use Types Packs/Day Years Used Date Smoking Tobacco: Former Cigarettes Smokeless Tobacco: Never Alcohol Use Standard Drinks/Week Comments Not Currently 0 (1 standard drink = 0.6 oz pur e alcohol) [facility] Utilities Answer Date Recorded In the past 12 months has e electric, gas, oil, or water [employer] threatened to shut off services in your [...] Patient Instructions * Patient Instructions* Rosa Elena Huyhn PA-C - 12/15/2023 12:40 PM CDT Your [...] Us: For routine appointment scheduling, please call [phone]. If you have medical questions or concerns, please contact my nurse Traci at [phone] Thank you for choosing [facility] Rosa Elena Huynh PA-C Department of Cardiology documented in this encounter Progress Notes * Rosa Elena Huynh PA-C - 12/15/2023 12:40 PM CDT Cardiology Clinic Progress Note 12/15/2023 Nicolle Coving[place] [id number] Primary Support Associate: Dr. Howell SUBJECTIVE: Nicolle Coving[place] is a pleasant 68 y.o. female who presents to clinic today for follow up of hypertensive urgency/emergency. She is a history of peripheral artery disease, cerebral aneurysm, fibromyalgia, uncontrolled hypertension leading to hypertensive urgency (intolerance to several medications, limiting therapy), lupus, tobacco abuse, and obstructive sleep apnea. She was recently admitted to [facility] 716 to 11/13/2023 with hypertensive urgency. Started [...] (165.1 cm) Wt 131 lb 6.4 oz (77844 g) BMI 21.87 kg/m?? Estimated body mass index is 21.87 kg/m?? as calculated from the following: Height as of this encounter: 5' 5 (165.1 cm). Weight as of this encounter: 131 lb 6.4 oz (89724 g). General Appearance: No apparent distress. Pleasant, [...] 11/11/2023 PAD. Follows with vascular surgery at [facility] Tobacco abuse, hx of. Cerebral aneurysm, [...] iliac intervention through vascular surgery team at [facility] scheduled for 01/12/24, no cardiac contraindication to proceeding with this Rosa Elena Huynh PA-C Department of Cardiology My total time was 30 minutes with 20 minutes spent in person reviewing medications, lab results, and plan of care. documented in this encounter Plan of Treatment Upcoming Encounters Date Type Department Care Team (Late st Contact Info) Description 03/14/2024 2:00 PM MASON TENDER Appointment [facility] Neurosurgery/Ortho Spine [address] [place] [address]. [place] [address] Brandon Kessler MD [address] [place] [address] CONSULT 03/20/2024 11:15 AM MASON TENDER Appointment Rheumatology at [facility] [place] [address] [address] [address] [place], [place] [phone] Desilet, Freeman W, DO [address] [place] [address] 03/05/2025 11:30 AM MASON TENDER Appointment [facility] [address] Electrophysiology [address] [place] [address] documented as of this encounter Procedures Procedure Name Priority Date/Time Associated Diagnosis Comments ECG 12 LEAD OUTPATIENT Routine 12/15/2023 12:40 PM CDT Pre-op exam documented in this encounter Results * (ABNORMAL) Basic Metabolic Panel (12/15/2023 1:14 PM CDT) Sodium 137 136 - 145 mmol/L 12/15/2023 5:32 PM [facility] Potassium 5.1 3.5 - 5.1 mmol/L 12/15/2023 5:32 PM [facility] Chloride 103 98 - 109 mmol/L 12/15/2023 5:32 PM [facility] CO2 20 20 - 29 [...] 1:14 PM CDT 12/15/2023 1:40 PM [facility] - 12/15/2023 5:32 PM T The National Kidney Disease Education Program suggests measuring Cystatin C in patients with eGFRcrea of 45 to 59 ml/min/1.73^2 who do not have other markers of kidney damage (i.e. elevated urine Albumin/Creatinine Ratio or a prior Cystatin C confirming the presence of chronic kidney disease). Rosa Elena Hyunh PA-C LAB_1 Performing Organization Address [facility] Co de Phone Number [facility] [address] [place] [address] * ECG 12 Lead Outpatient (12/15/2023 12:40 PM CDT) Ventricular Rate 65 BPM [facility]USE [facility] Atrial Rate 65 BPM MUSE [facility] P-R Interval 204 ms MUSE GHP QRS Duration 90 ms MUSE GHP QT 382 ms MUSE GHP QTc 397 ms MUSE GHP P [place] -3 degrees MUSE GHP R [place] 35 degrees MUSE GHP T [place] 66 degrees MUSE GHP 12/15/2023 12:4 0 PM CDT Narrative MUSE [facility] - 12/15/2023 4:07 PM CDT Atrial-paced rhythm Poor R wave progression Abnormal ECG When compared with ECG of 12-NOV-2023 06:51, No significant change was found Confirmed by Christopher Sosa ([id number]) on 12/15/2023 4:07:32 PM Procedure Note Lemuel Sosa MD - 12/15/2023 Atrial-paced rhythm Poor R wave progression Abnormal ECG When compared with ECG of 12-NOV-2023 06:51, No significant change was found Confirmed by Christopher Sosa ([id number]) on 12/15/2023 4:07:32 PM Rosa Elena Huynh PA-C PN ECG ORDERABLES Performing Organization Address [facility] Co de Phone Number [facility] [address] [place] [address] documented in this encounter Visit Diagnoses Diagnosis Pre-op exam- Primary Preoperative examination, unspecified Hypertension, unspecified type (HRC) Hyperlipidemia, unspecified hyperlipidemia type (HRC) Hypertensive emergency Unspecified essential hypertension SSS (sick sinus syndrome) (HRC) Sinoatrial node dysfunction Cardiac pacemaker in situ Sinus bradycardia Other specified cardiac dysrhythmias Chronotropic incompetence Other specified conduction disorder documented in this encounter Care Teams Post Exchange Manager Relationship Specialty Start Date End Date Dalton Esqueda MD [address] [place] [address] PCP - General Family Practice 06/23/23 documented as of this encounter
--- OUTSIDE RECORDS SUMMARY | 2024-03-13 09:41 | XMS_ITS | Encounter Summary ---
Author Organization [employer] Address [address] [place] [address] Care Team Providers Care Wire Wrapper Machine Operator Name Role Phone Dalton Esqueda MD Primary Care Provider Encounter Details Date Type Department Care Team (Late st Contact Info) Description 12/07/2023 Ancillary Procedure Radiology [facility] [address] [place] [address] Provider, Foreign Images [address] [place] [address] Social History Tobacco Use Types Packs/Day Years Used Date Smoking Tobacco: Former Cigarettes Smokeless Tobacco: Never Alcohol Use Standard Drinks/Week Comments Not Currently 0 (1 standard drink = 0.6 oz pur e alcohol) [facility] Utilities Answer Date Recorded In the past [address] [facility] [employer], gas, oil, or water [employer] threatened to shut off services in your [...] st Contact Info) Description 03/14/2024 2:00 PM BUS COMPANY MANAGER Appointment [facility] Neurosurgery/Ortho Spine [address] [place] [address]. [place] [address] Brandon Kessler MD [address] [place] [address] CONSULT 03/20/2024 11:15 AM BUS COMPANY MANAGER Appointment Rheumatology at [facility] [place] [address] [address] [address] [place], [place] [address] Freeman Lopez, DO [address] [place] [address] 03/05/2025 11:30 AM BUS COMPANY MANAGER Appointment [facility] [place] [phone] documented as of this encounter Procedures Procedure Name Priority Date/Time Associated Diagnosis Comments FOREIGN IMAGE(S) US CAROTID Routine 12/07/2023 12:00 AM CDT documented in this encounter Results * Foreign Image(S) US Carotid (12/07/2023 12:00 AM CDT) Narrative EXTERNAL RESULTS - 02/21/2024 3:36 PM CDT These outside images have been uploaded into PACS. If the results were provided, they will be located in the patient's chart under the Media or Imaging tab. Foreign Images Provider RAD NON-REPORTAB LES EXTERNAL RESULTS documented in this encounter Visit Diagnoses Not on filedocumented in this encounter Care Teams Wire Wrapper Machine Operator Relationship Specialty Start Date End Date Dalton Esqueda MD [address] [place] [address] PCP - General Family Practice 06/23/23 documented as of this encounter
--- OUTSIDE RECORDS SUMMARY | 2024-03-13 09:41 | XMS_ITS | Encounter Summary ---
Author Organization [employer] Address [address] [place] [address] Care Team Providers Care Oil Analyst Name Role Phone Dalton Esqueda MD Primary Care Provider [phone] Reason for Referral * Medication Prior Authorization - Authorized Specialty Diagnoses / Procedures Referred By Jonathan moar [place] [address] [place] [address] Referral ID Status Reason Start Date Expiration Date V isits Requested Visits Authorized [id number] Authorized 12/07/2023 04/24/2024 1 1 Encounter Details Date Type Department Care Team (Late st Contact Info) Description 12/07/2023 Notes/Orders [facility] Cardiology [address] [place] [address]. [place], [place] [address] Wilfredo Howell III, MD [address] [place] [address] Social History Tobacco Use Types Packs/Day Years Used Date Smoking Tobacco: Former Cigarettes Smokeless Tobacco: Never Alcohol Use Standard Drinks/Week Comments Not Currently 0 (1 standard drink = 0.6 oz pur e alcohol) [facility] Utilities Answer Date Recorded In the past 12 months has th e electric, gas, oil, or water [employer] threatened to shut off services in your [...] st Contact Info) Description 03/14/2024 2:00 PM PAN DUMPER Appointment [facility] Neurosurgery/Ortho Spine [address] [place] [address] Brandon Kessler MD [address] [place] [address] [phone] CONSULT 03/20/2024 11:15 AM PAN DUMPER Appointment Rheumatology at [facility] [place] [address] [address] [address] [place], [place] [address] Desilet, Luke W, DO [address] [place] [address] 03/05/2025 11:30 AM PAN DUMPER Appointment [facility] [address] Electrophysiology [address] [place] [phone] documented as of this encounter Visit Diagnoses Not on filedocumented in this encounter Care Teams Oil Analyst Relationship Specialty Start Date End Date Dalton Esqueda MD [address] [place] [address] PCP - General Family Practice 06/23/23 documented as of this encounter
--- OUTSIDE RECORDS SUMMARY | 2024-03-13 09:41 | XMS_ITS | Encounter Summary ---
Author Organization [employer] Address [address] [place] [address] Care Team Providers Care Headhunter Name Role Phone Dalton Esqueda MD Primary Care Provider Encounter Details Date Type Department Care Team (Late st Contact Info) Description 12/08/2023 Notes/Orders [facility] Cardiology [address] [place] [address]. [place], [place] [id number] Wilfredo Howell III, MD [address] [place], [place] [phone] Social History Tobacco Use Types Packs/Day Years Used Date Smoking Tobacco: Former Cigarettes Smokeless Tobacco: Never Alcohol Use Standard Drinks/Week Comments Not Currently 0 (1 standard drink = 0.6 oz pur e alcohol) [facility] Utilities Answer Date Recorded In the past 12 months has [employer], gas, oil, or water [employer] threatened to shut off services in your [...] place to sleep or slept in a assisted (including now)? No 11/08/2023 Sex and Gender Information Value Date Recorded Sex Assigned at Not on file Gender Identity Female 12/21/2023 11:58 AM CDT Sexual Orientation Not on file documented as of this encounter Progress Notes * Yanci Adkins RN - 12/08/2023 8:57 AM CDT PA initiated for Praluent. Approved Prior Authorization Portal Prior authorization approved Payer: [facility] Note from payer: Request Reference Number: [id number]. PRALUENT INJ 75MG/ML is approved through 04/24/2024. Your patient may now fill this prescription and it will be covered. Approval Details Authorization number: [id number] Authorized from December 07, 2023 to April 24, 2024 Electronic appeal: Supported Appeal deadline: December 14, 2023 (In 6 days) View History Pharmacy called and notified of PA approval. documented in this encounter Plan of Treatment Upcoming Encounters Date Type Department Care Team (Late st Contact Info) Description 03/14/2024 2:00 PM ASSOCIATE JUSTICE Appointment [facility] Neurosurgery/Ortho Spine [address] [place] [address] Brandon Kessler MD [address] [place] [phone] CONSULT 03/20/2024 11:15 AM ASSOCIATE JUSTICE Appointment Rheumatology at [facility] [place] [address] [facility] [address] [place], [place] [address] Freeman Lopez, DO [address] [place] [address] 03/05/2025 11:30 AM ASSOCIATE JUSTICE Appointment [facility] [address] Electrophysiology [address] [place] [phone] documented as of this encounter Visit Diagnoses Not on filedocumented in this encounter Care Teams Headhunter Relationship Specialty Start Date End Date Dalton Esqueda MD [address] [place] [address] PCP - General Family Practice 06/23/23 documented as of this encounter
--- OUTSIDE RECORDS SUMMARY | 2024-03-13 09:41 | XMS_ITS | Encounter Summary ---
Author Organization [employer] Address [address] [place] [address] Care Team Providers Care Seismic Interpreter Name Role Phone Dalton Esqueda MD Primary Care Provider [phone] Reason for Visit * Reason Comments RESULTS, TEST Encounter Details Date Type Department Care Team (Late st Contact Info) Description 12/20/2023 Telephone [facility] Cardiology [address] [place] [address] Rosa Elena Huynh PAYani [address] [place] [address] RESULTS, TEST Social History Tobacco Use Types Packs/Day Years Used Date Smoking Tobacco: Former Cigarettes Smokeless Tobacco: Never Alcohol Use Standard Drinks/Week Comments Not Currently 0 (1 standard drink = 0.6 oz pur e alcohol) [facility] Utilities Answer Date Recorded In the past 12 months has e [employer], gas, oil, or water [employer] threatened to shut off services in your [...] st Contact Info) Description 03/14/2024 2:00 PM BUSINESS SUPPORT PROFESSIONAL Appointment [facility] Neurosurgery/Ortho Spine [address] [place] [address]. [place] [address] Brandon Kessler MD [address] [place] [address] CONSULT 03/20/2024 11:15 AM BUSINESS SUPPORT PROFESSIONAL Appointment Rheumatology at [facility] [address] [address] DesiletFreeman W, DO [address] [place], [place] [phone] 03/05/2025 11:30 AM BUSINESS SUPPORT PROFESSIONAL Appointment Ghislaine Tamika [place] [address] Electrophysiology [address] [place] [address] documented as of this encounter Visit Diagnoses Not on filedocumented in this encounter Care Teams Seismic Interpreter Relationship Specialty Start Date End Date Dalton Esqueda MD [address] [place] [address] PCP - General Family Practice 06/23/23 documented as of this encounter
--- OUTSIDE RECORDS SUMMARY | 2024-03-13 09:41 | XMS_ITS | Encounter Summary ---
Author Organization [facility] Address [address] [place] [address] Care Team Providers Care Fish Technologist Name Role Phone Dalton Esqueda MD Primary Care Provider [phone] Encounter Details Date Type Department Care Team (Late st Contact Info) Description 11/17/2023 E-Visit [facility] [address] [place] [address] Bia, [place] [address] Social History Tobacco Use Types Packs/Day Years Used Date Smoking Tobacco: Former Cigarettes Smokeless Tobacco: Never Alcohol Use Standard Drinks/Week Comments Not Currently 0 (1 standard drink = 0.6 oz pur e alcohol) [facility] Utilities Answer Date Recorded In the past 12 months has [facility] [employer], gas, oil, or water [employer] threatened to shut off services in [...] st Contact Info) Description 03/14/2024 2:00 PM ENVIRONMENTAL COORDINATOR Appointment [facility] Neurosurgery/Ortho Spine [address] [place] [address]. [place] [address] Brandon Kessler MD [address] [place] [phone] CONSULT 03/20/2024 11:15 AM ENVIRONMENTAL COORDINATOR Appointment Rheumatology at [facility] [address] [address] DesFreeman brand, DO [address] [place] [address] 03/05/2025 11:30 AM ENVIRONMENTAL COORDINATOR Appointment Ghislaine Tamika [place] [address] Electrophysiology [address] [place] [address] documented as of this encounter Visit Diagnoses Not on filedocumented in this encounter Care Teams Fish Technologist Relationship Specialty Start Date End Date Dalton Esqueda MD [address] [place] [address] PCP - General Family Practice 06/23/23 documented as of this encounter
--- OUTSIDE RECORDS SUMMARY | 2024-03-13 09:41 | XMS_ITS | Clinical Summary ---
Author Organization [facility] Address [place], [place] [address] Care Team Providers Care Gear Straightener Name Role Phone Theresa Vázquez PhD, Unavailable [phone] Abhinav Miranda MD Unavailable [phone] [facility], [facility] Unavailable [phone] Rambo Cordova MD Unavailable [phone] Abhinav Miranda MD Unavailable [phone] Dalton Esqueda MD Primary Care Provider + [...] had adverse reactions previously Hydroxychloroquine Anxiety 08/23/2011 Pwyufvo-Ibf-Dpk Reductase Inhibitors Myalgia 04/01/2015 Sulfasalazine Rash 05/17/2019 [...] composerIndication s:Sjogren's syndrome, with unspecified organ involvement (HC),Lupus,Connect epi tissue disease (HC) Seeking Health MVI one [...] every 2 weeks. 6 mL 4 Active clopidogreL (PLAVIX) 75 mg tabletIndications: Peripheral arterial disease (HC) Take 1 Tablet (75 mg) by mouth once daily. 90 Tablet 4 Active clopidogreL (PLAVIX) 75 mg tabletIndications: Peripheral arterial disease (HC) Take 1 Tablet (75 mg) by mouth once daily. 90 Tablet 4 02/23/20 24 Discontinued Active Problems Problem Noted Date Diagnosed Date PAD (peripheral artery disease) 02/23/2024 Dizziness 11/15/2021 Elevated troponin 11/15/2021 Brain aneurysm [...] carotid artery 03/01/2017 Controlled substance agreement with [facility] 12/21/19 17 Chronic SI joint pain 12/20/2016 [...] Encounters Date Type Department Care Team Description 02/23/2024 12:02 PM CDT Anesthesia Event [facility] [address] [address] Tavo Vazquez MD 02/23/2024 9:54 AM CDT - 02/23/2024 4:56 PM CDT Hospital Encounter [facility] [address] [address] Ousmane Joseph MBBS Peripheral arterial disease (HC) (Primary Dx) Discharge Disposition: Home Self Care 02/22/2024 Travel 01/26/2024 Telephone [facility] [address] [place] [phone] Ousmane Joseph MBBS Education 01/16/2024 11:00 AM CDT Ancillary Procedure [facility] [address] [place] [address] 01/16/2024 Travel 01/16/2024 Lab Requisition [facility] [phone] Arti Hoover MD 01/12/2024 1:45 PM CDT - 01/12/2024 2:18 PM CDT Emergency [facility] [address] [place] [address] Discharge Disposition: Home Self Care 01/12/2024 1:16 PM CDT - 01/12/2024 7:02 PM CDT Hospital Encounter [facility] [address] [place] [address] Ousmane Joseph MBBS Discharge Disposition: Home Self Care 01/12/2024 1:03 PM CDT Anesthesia Event [facility] [address] [place] [address] Armida Juarez MD 01/12/2024 Orders Only [facility] [address] [place] [phone] Bonita Mcdaniels PA <No scans attached> 01/12/2024 Travel 01/11/2024 Telephone [facility] [address] [place] [phone] Ousmane Joseph MBBS Medication information 12/28/2023 Refill [facility] [address] [place] [address] Eugene Araya MD Refill Request (Ezetimibe, Praluent Pen) from Last 3 Months Immunizations Name Administration [...] 2 09/08/2023 Social Connections Answer Date Recorded Do you often feel lonely or isolated from those around you? 0 02/23/2024 Financial Resource Strain Answer Date R ecorded Difficulty of Paying Living Expenses 3 03/24/2023 Difficulty of Paying Living Expenses Not on file 03/24/2023 Food Insecurity Answer Date Recorded Do you worry your food will run out before you are able to buy more? 1 02/23/2024 Transportation Needs Answer Date Record ed Does lack of transportation keep you from medica l appointments? 1 02/23/2024 Does lack of transportation keep you from work, meetings or getting things that you need? 1 02/23/2024 Housing Stability Answer Date Recorded What is your housing situation today? 1 03/24/2023 Sex and Gender Information Value [...] Sign Reading Time Taken Comments Blood Pressure 159/69 02/23/2024 4:00 PM CDT Pulse 62 02/23/2024 4:00 PM CDT Temperature 36.6 C (97.8 F) 02/23/2024 1:55 PM CDT Respiratory Rate 16 02/23/2024 4:00 PM CDT Oxygen Saturation 98% 02/23/2024 4:00 PM CDT Inhaled Oxygen Concentration - - Weight 52.6 kg (116 lb) 02/23/2024 11:01 AM CDT Height 165.1 cm (5' 5) 02/23/2024 11:01 AM CDT Body Mass Index 19.3 02/23/2024 11:01 AM CDT Plan of Treatment Upcoming Encounters Date Type Department Care Team (Late st Contact Info) Description 03/21/2024 9:15 AM SOLUTION SALES SENIOR EXECUTIVE Appointment [facility] [address] [facility] N [facility] [address] [place] [address] 03/21/2024 10:00 AM SOLUTION SALES SENIOR EXECUTIVE Appointment [facility] [address] [facility] [address] [facility] [address] [place] [address] 03/21/2024 11:00 AM SOLUTION SALES SENIOR EXECUTIVE Office Visit [facility] [address] [place] [phone] Ousmane Joseph, NEVA [address] [place] [address] Health Maintenance Due Date Last Done Comments COVID-19 vaccine series (#1) 1959 Zoster (shingles) series for age 50+ (1 of 2) 1973 Medicare Wellness for age 65+ 2019 Pneumococcal series for age 65+ (2 of 2 - PCV) 2019 04/06/2002 Mammogram for age 45-75 03/07/2020 03/07/20, 02/24/2018, 04/12/2016, Additional history exists Tetanus booster [...] 04/28/2021, 03/06/2015 Medical Devices Implanted Type Area Mechanical Pencils Assembler Device Identifier Shelf Expiration Date Model / Serial / Lot Sut [place] [id number] Bio Swivelock - [id number] Implanted:Qty: 4 on 04/12/2007 at [facility] Right: Shoulder [employer] [id number] L# / / [id number] Fiberchain 7mm10 Loops - [id number] Implanted:Qty: 4 on 04/12/2007 at [facility] Right: Shoulder [employer] AR-7270# / / Patch Vasc 0.8x8cm Biological Peripatch - [id number] Implanted:Qty: 1 on 08/26/2011 by Brain Nolasco MD at [facility] Right: Carotid Artery [employer] 08/25/2013 0.8P8# / / [id number] Graft Vasc 0.3x3in Hemashield Stra Fabric Knitted Dbl - [id number] Implanted:Qty: 1 on 03/01/2017 by Brain Quiroga MD at [facility] Left: Carotid Artery [employer] 06/22/2021 [id number]# / / [id number] Procedures Procedure Name Priority Date/Time Associated Diagnosis Comments [facility] ACTIVATED CLOTTING TM CV Timed 02/23/2024 1:22 PM CDT [facility] ACTIVATED CLOTTING TM CV Timed 02/23/2024 12:53 PM CDT [facility] ACTIVATED CLOTTING TM CV Timed 02/23/2024 12:37 PM CDT TYPE & SCREEN Today 02/23/2024 11:00 AM CDT BASIC METABOLIC PANEL STAT 02/23/2024 11:00 AM CDT CBC W PLT NO DIFF CIELO 02/23/2024 11: 00 AM CDT ECHO TTE COMPLETE WO CONTRAST Routine 01/16/2024 12:17 PM CDT NSTEMI (non-ST elevated myocardial infarction) (HC) LAB TRACKING EVENT Routine 01/16/2024 12 :00 PM CDT PATH TISSUE EXAM Routine 01/15/2024 1:31 PM CDT LIPID PANEL W REFLEX MEASURED LDL Routine 01/14/2022 7:58 AM CDT Pure hypercholesterolemia Dyslipidemia Statin intolerance ANTI HCV Today 04/28/2021 10:51 AM SOLUTION SALES SENIOR EXECUTIVE Leukopenia, unspecified type COLONOSCOPY 10/02/2020 8:44 AM CDT XR DXA BONE DENSITY 2 SITES AXIAL Routine 02/22/2020 1:20 PM CDT Chronic midline low back pain with right-sided sciatica Fibromyalgia Mixed connective tissue disease (HC) Sjogren's syndrome with myopathy (HC) XR MAMMO BILAT SCREENING Routine 03/07/2019 3:23 PM SOLUTION SALES SENIOR EXECUTIVE Visit for screening mammogram from Last 3 Months or Most Recently Relevant to Health Maintenance Results * (ABNORMAL) ACTIVATED CLOTTING TIME [id number] ACT (02/23/2024 1:22 PM CDT) Only the most recent of3 resultswithin the time period is included. Pathologist [facility] ACTIVATED CLOTTING TIME, POCT 245(H) 74 - 125 sec 02/23/2024 3:48 PM CDT [facility] Blood BLOOD SPECIMEN / Unknown 02/23/2024 1:22 PM CDT 02/23/2024 3:48 PM CDT Ousmane HOOKS HEMATOLOGY [facility] SENDOUT [place] [address]IP [id number] [address] [place] [address] * TYPE & SCREEN (02/23/2024 11:00 AM CDT) [facility] ABORH B Rh Positive 02/23/2024 11:41 AM CDT [facility] BLOOD BANK ANTIBODY SCREEN Negative Negative 02/23/2024 11:41 AM CDT [facility] BLOOD BANK SPECIMEN EXPIRATION DATE/TIME 02/26/24 23:59 02/23/2024 11:41 AM CDT [facility] BLOOD BANK Blood BLOOD SPECIMEN / Unknown Venipuncture / Unknown 02/23/2024 11:00 AM CDT 02/23/2024 11:04 AM CDT Asha Wolff [place] BLOOD BANK [facility] BLOOD BANK [address] [place] [address] * (ABNORMAL) CBC with Platelets no Differential (02/23/2024 11:00 AM CDT) [facility] WHITE BLOOD COUNT 11.9(H) 4.5 - 11.0 thou/cu mm 02/23/2024 11:06 AM CDT [facility] RED BLOOD COUNT 3.43(L) 4.00 - 5.20 mil/cu mm 02/23/2024 11:06 AM CDT [facility] HEMOGLOBIN 9.9(L) 12.0 - 16.0 g/dL 02/23/2024 11:06 AM CDT [facility] HEMATOCRIT 30.9(L) 33.0 - 51.0 % 02/23/2024 11:06 AM T [facility] MCV 90 80 - 100 fL 02/23/2024 11:06 AM T [facility] MCH 28.9 26.0 - 34.0 pg 02/23/2024 11:06 AM T [facility] MCHC 32.0 32.0 - 36.0 g/dL 02/23/2024 11:06 AM T [facility] RDW 13.6 11.5 - 15.5 % 02/23/2024 11:06 AM T [facility] PLATELET COUNT 502(H) 140 - 440 thou/cu mm 02/23/2024 11:06 AM T [facility] MPV 8.7 6.5 - 11.0 fL 02/23/2024 11:06 AM T [facility] NRBC 0.0 % 02/23/2024 11:06 AM T [facility] ABS NRBC 0.0 thou /cu mm 02/23/2024 11:06 AM [facility] Blood BLOOD SPECIMEN / Unknown Venipuncture / Unknown 02/23/2024 11:00 AM CDT 02/23/2024 11:04 AM CDT Asha Casper HEMATOLOGY [facility] SENDOUT [place] ZIP [address] [place], [place] [id number] * (ABNORMAL) Basic Metabolic Panel (02/23/2024 11:00 AM CDT) SODIUM 136 136 - 145 mmol/L 02/23/2024 11:25 AM T [facility] POTASSIUM 4.9 3.5 - 5.1 mmol/L 02/23/2024 11:25 AM T [facility] CHLORIDE 101 98 - 107 mmol/L 02/23/2024 11:25 AM T [facility] CO2,TOTAL 24 22 - 29 mmol/L 02/23/2024 11:25 AM [facility] ANION GAP 11 5 - 18 02/23/2024 11:25 AM [facility] GLUCOSE 104(H) 70 - 99 mg/dL 02/23/2024 11:25 AM T [facility] CALCIUM 9.8 8.8 - 10.2 mg/dL 02/23/2024 11:25 AM CDT [facility] BUN 32(H) 8 - 23 mg/dL 02/23/2024 11:25 AM CDT [facility] CREATININE 1.04(H) 0.50 - 0.90 mg/dL 02/23/2024 11:25 AM CDT [facility] BUN/CREAT RATIO 31(H) 10 - 20 11:25 AM CDT [facility] eGFR 58(L) >90 mL/min/1.7 3m2 02/23/2024 11:25 AM CDT [facility] Comment:As of 2021, eG FR is calculated by the CKD-EPI creatinine equation without race adjustment. eGFR can be influenced by muscle mass, exercise, and diet. The reported eGFR is an estimation only and is only applicable if the renal function is stable. Blood BLOOD SPECIMEN / Unknown Venipuncture / Unknown 02/23/2024 11:00 AM CDT 02/23/2024 11:04 AM CDT Asha Casper CHEMISTRY [facility] SENDOUT INTERNAL ZIP [id number] [place], [place] [id number] * ECHO TTE COMPLETE WO CONTRAST (01/16/2024 12:17 PM CDT) AORTIC VALVE MEAN PG 7 mmHg EJECTION FRACTION 61 % LVEDD 4.9 cm EJECTION FRACTION 60 - 65% Anatomical Region Laterality Modality Ultrasound 01/16/2024 11:4 6 AM CDT Narrative 01/16/2024 1:00 PM CDT ECHOCARDIOGRAM NICOLLE COVINGTON : 1955 68 years Study Date: 01/16/2024 11:46:15 AM Gender: F BP: 159/71 mmHg Height: 165.00 cm BSA: 1.63 m Weight: 58.00 kg Tech: MSR Referring MD: ROSA PINTO Site: [facility] Reading Location: Mobile [facility] Patient Location: Inpatient. Procedure: 2D, Color Doppler and Spectral Doppler. Indication for study: NSTEMI (non-ST elevated myocardial infarction) Cardiac Rhythm: Regular and normal sinus.Study quality: Fair. Final Impressions: 1. Normal LV size, normal wall thickness, normal global systolic function with an estimated EF of 60 - 65%. 2. Right ventricular cavity size is normal, global systolic RV function is normal. 3. Normal diastolic function. 4. No significant valve disease detected. Comparison Compared to prior exam of 09/15/17, there has been no significant change. Chamber Sizes and Function Normal left ventricular size, normal wall thickness, normal global systolic function with an estimated EF of 60 - 65%. Left atrial size is normal. Left atrial pressure is normal. Right ventricular cavity size is normal, global systolic RV function is normal. RV wall thickness is normal. The right atrium is normal. The pulmonary artery is of normal size and origin. The sinus of Valsalva is normal sized. The ascending aorta is normal sized. Valves, RV Pressures and Diastolic Function The aortic valve is trileaflet, no stenosis and no regurgitation. The mitral valve is normal in structure, trace mitral regurgitation. Normal diastolic function. The tricuspid valve is not well visualized. Tricuspid regurgitation is trace regurgitation. The pulmonic valve is not well visualized. Trace pulmonary regurgitation. Masses, Effusion, Shunts There is no pericardial effusion. The inferior vena cava is not well visualized, respiratory size variation greater than 50%. No left to right shunting was detected by limited color flow Doppler interrogation of the interatrial septum. MEASUREMENTS AND CALCULATIONS 2-D Measurements and LV Function: LVID (d) 4.9 cm LV FS% (2D) 49 % LVID (s) 2.5 cm LVOT diameter 2.1 cm IVS (d) 0.9 cm HR 89 bpm LVPW (d) 0.9 cm LA Vol index 17 ml/m2 Ao Sinus 3.0 cm RV Max 4C (d) 3.3 cm Asc Ao 2.8 cm Diastology: Mitral Tissue Doppler E Peak 0.7 m/s e', Septum 0.07 m/s A Peak 1.0 m/s e', Lateral 0.10 m/s E/A 0.7 E/e' Average 8.29 DT 175 msec Aortic Valve: Vmax 1.8 m/s AMANDA (V) 2.71 cm VTI 0.37 m AMANDA (I) 2.77 cm LVOT V max 1.3 m/s Max PG 12 mmHg LVOT VTI 0.29 m Mean PG 7 mmHg SV 102 ml Dim Index 0.78 SV index 62 ml/m CO 9.0 l/min CI 5.5 l/min/m Mitral Valve: MVA 4.3 cm MV P 1/2 51 msec Tricuspid Valve and estimated PA pressures: TAPSE 2.2 cm . This study was interpreted by an [facility] accredited facility. CC: [facility] (med records) [facility], Med/Surg - IP [facility]. Final Procedure Note Gerard Reyes MD - 01/16/2024 ECHOCARDIOGRAM NICOLLE COVINGTON : 1955 68 years Study Date: 01/16/2024 11:46:15 AM Gender: F BP: 159/71 mmHg Height: 165.00 cm BSA: 1.63 m Weight: 58.00 kg Tech: MSR Referring MD: ROSA PINTO Site: [facility] Reading Location: Mobile [facility] Patient Location: Inpatient. Procedure: 2D, Color Doppler and Spectral Doppler. Indication for study: NSTEMI (non-ST elevated myocardial infarction) Cardiac Rhythm: Regular and normal sinus.Study quality: Fair. Final Impressions: 1. Normal LV size, normal wall thickness, normal global systolic functionwith an estimated EF of 60 - 65%. 2. Right ventricular cavity size is normal, global systolic RV functionis normal. 3. Normal diastolic function. 4. No significant valve disease detected. Comparison Compared to prior exam of 09/15/17, there has been no significant change. Chamber Sizes and Function Normal left ventricular size, normal wall thickness, normal globalsystolic function with an estimated EF of 60 - 65%. Left atrial size isnormal. Left atrial pressure is normal. Right ventricular cavity size isnormal, global systolic RV function is normal. RV wall thickness isnormal. The right atrium is normal. The pulmonary artery is of normal sizeand origin. The sinus of Valsalva is normal sized. The ascending aorta isnormal sized. Valves, RV Pressures and Diastolic Function The aortic valve is trileaflet, no stenosis and no regurgitation. Themitral valve is normal in structure, trace mitral regurgitation. Normaldiastolic function. The tricuspid valve is not well visualized. Tricuspidregurgitation is trace regurgitation. The pulmonic valve is not wellvisualized. Trace pulmonary regurgitation. Masses, Effusion, Shunts There is no pericardial effusion. The inferior vena cava is not wellvisualized, respiratory size variation greater than 50%. No left to rightshunting was detected by limited color flow Doppler interrogation of theinteratrial septum. MEASUREMENTS AND CALCULATIONS 2-D Measurements and LV Function: LVID (d) 4.9 cm LV FS% (2D) 49 % LVID (s) 2.5 cm LVOT diameter 2.1 cm IVS (d) 0.9 cm HR 89 bpm LVPW (d) 0.9 cm LA Vol index 17 ml/m2 Ao Sinus 3.0 cm RV Max 4C (d) 3.3 cm Asc Ao 2.8 cm Diastology: Mitral Tissue Doppler E Peak 0.7 m/s e', Septum 0.07 m/s A Peak 1.0 m/s e', Lateral 0.10 m/s E/A 0.7 E/e' Average 8.29 DT 175 msec Aortic Valve: Vmax 1.8 m/s AMANDA (V) 2.71 cm VTI 0.37 m AMANDA (I) 2.77 cm LVOT V max 1.3 m/s Max PG 12 mmHg LVOT VTI 0.29 m Mean PG 7 mmHg SV 102 ml Dim Index 0.78 SV index 62 ml/m CO 9.0 l/min CI 5.5 l/min/m Mitral Valve: MVA 4.3 cm MV P 1/2 51 msec Tricuspid Valve and estimated PA pressures: TAPSE 2.2 cm . This study was interpreted by an [facility] accredited facility. CC: [facility] (med records) [facility], Med/Surg - IP [facility]. Final Rosa Pinto MD ECHO ORD * LAB TRACKING EVENT (01/16/2024 12:00 PM CDT) Other (Other) Client Collect / Unknown 01/16/2024 12:00 PM CDT 01/16/2024 1:35 PM CDT Arti Hoover MD LAB BILL ONLY [facility] [address] [place] [address], [place] * PATH TISSUE EXAM (01/15/2024 1:31 PM CDT) Case Report Pathology Report Case: [id number] Authorizing Provider: Arti Hoover MD Collected: 01/15/2024 1331 Ordering Location: [facility] Received: 01/16/2024 1525 Pathologist: Guido Hernandez MD Specimen: Gastric Biopsy, Ulcer 01/17/2024 10:58 AM CDT [facility] Final Diagnosis A) STOMACH, BIOPSY: 1. Fragment of ulcerative debris 2. No intact gastric mucosa present in the sample 01/17/2024 10:58 AM CDT [facility] Clinical Information Ms. Covington is a 68 y.o. who undergoes upper GI endoscopy. 01/17/2024 10:58 AM CDT [facility] Gross Description A) Received in formalin is a harman mucosal fragment measuring 5 mm in greatest dimension, which is entirely submitted in one cassette. It is labeled with the patient's name and designated gastric ulcer biopsy. Janiya Heard 01/16/2024 3:26 PM 01/17/2024 10:58 AM CDT [facility] Microscopic Description The final diagnosis is based on microscopic examination of appropriate sections of all specimens. 01/17/2024 10:58 AM CDT [facility] Additional Information Interpreted at [facility] - [address], [place] [address] 01/17/2024 10:58 AM CDT [facility] Other GASTRIC BIOPSY SPECIMEN / Unknown 01/15/2024 1:31 PM CDT 01/16/2024 3:25 PM CDT Arti Hoover MD PATHOLOGY/[facility] [address] [place] [address], * LIPID PANEL W REFLEX MEASURED LDL (01/14/2022 7:58 AM CDT) CHOLESTEROL,TOTAL 159 100 - 199 mg/dL 01/14/2022 9:[address] [facility] TRIGLYCERIDES 130 <150 mg/dL 01/14/2022 9:[address] [facility] HDL CHOLESTEROL 75 >40 mg/dL 9:[address] [facility] NON-HDL CHOLESTEROL 84 <145 mg/dl 01/14/2022 9:36 AM [facility] CHOL/HDL RATIO 2.12 <4.50 01/14/2022 9:36 AM [facility] LDL CHOLESTEROL 58 <=130 mg/dL 01/14/2022 9:36 AM [facility] VLDL CHOLESTEROL 26 <=30 mg/dL 01/14/2022 9:36 AM [facility] PROVIDER ORDERED STATUS FASTING 01/14/2022 9:36 AM [facility] Blood BLOOD SPECIMEN / Unknown Venipuncture / Unknown 01/14/2022 7:58 AM CDT 01/14/2022 8:18 AM CDT Yu Bradley NP CHEMISTRY [facility] [address] [place] [address] * ANTI HCV (04/28/2021 10:51 AM SOLUTION SALES SENIOR EXECUTIVE) HEPATITIS C ANTIBODY Non-React epi Non-React epi 04/28/2021 4:25 PM SOLUTION SALES SENIOR EXECUTIVE [facility] Comment:Antibodies to HCV no t detected; does not exclude the possibility of exposure to HCV. Blood BLOOD SPECIMEN / Unknown Venipuncture / Unknown 04/28/2021 10:51 AM SOLUTION SALES SENIOR EXECUTIVE 04/28/2021 10:51 AM SOLUTION SALES SENIOR EXECUTIVE Giselle Sheffield MD SEND OUTS [facility] [address] [place] [address], [place] * COLONOSCOPY (10/02/2020 8:44 AM CDT) 10/02/2020 8:44 AM CDT Narrative Transcriptions Daysi George DO - 10/06/2020 9:14 PM CDT Patient Name: Nicolle Covington Procedure Date: 10/02/2020 Gender: Female Date of : 1955 Admit Type: Ambulatory Procedure: Colonoscopy Proceduralist: Daysi George MD [facility] Indications/Pre-Op Diagnosis: High risk colon cancer [...] Bone Den sitometry Narrative 02/25/2020 10:39 AM SOLUTION SALES SENIOR EXECUTIVE Please see scanned document for results of this study. Mauricio Muñoz MD DEXA * XR MAMMO BILAT SCREENING (03/07/2019 3:23 PM SOLUTION SALES SENIOR EXECUTIVE) Anatomical Region Laterality Modality BREASTS, Breast Left, Breast Right Bilateral Mammography Impressions 03/08/2019 6:55 AM SOLUTION SALES SENIOR EXECUTIVE There is no radiographic evidence for malignancy. Recommend annual mammograms. A lay language report of this examination will be provided to the patient. MAMMOGRAM ASSESSMENT: ACR 1 Negative Narrative 03/08/2019 6:55 AM SOLUTION SALES SENIOR EXECUTIVE XR MAMMO BILAT SCREENING [[id number]] CLINICAL HISTORY: This is an asymptomatic 63 y.o. patient. INDICATION FOR EXAM: Mammogram Screening. TECHNIQUE: CC & MLO views were obtained. This digital study was evaluated with the assistance of Computer-Aided Detection. COMPARISON FILM: Yes 02/24/18 [facility] FINDINGS: Mammographically, the breast tissue is almost entirely fat. There are no dominant masses, suspicious micro calcifications or areas of architectural distortion. Mauricio Muñoz MD MAMMO from Last 3 Months or Most Recently Relevant to Health Maintenance Advance Directives Documents on File Type Date Recorded Patient Inside Meter Tester Expl anation Healthcare Directive 03/24/2023 023 * [...] 5:42 AM 03/01/2017 11:49 AM Care Teams Gear Straightener Relationship Specialty Start Date End Date Dalton Esqueda MD [address] [place] [address] PCP - General Family Practice 10/15/20 Theresa Vázquez, PhD, LP Psychologist Psychology 06/23/11 Abhinav Miranda MD Dermatology Dermatology 08/07/15 [facility] 09/14/16 Rambo Cordova MD [address] [place] [address] Rheumatology Rheumatology 04/07/17 Abhinav Miranda MD Dermatology 07/11/17
--- OUTSIDE RECORDS SUMMARY | 2024-03-13 09:41 | XMS_ITS | Encounter Summary ---
Author Organization [employer] Address [address] [place] [address] Care Team Providers Care Reweaver Name Role Phone Dalton Esqueda MD Primary Care Provider [phone] Reason for Visit * Reason Comments UPDATE Encounter Details Date Type Department Care Team (Late st Contact Info) Description 12/06/2023 [facility] [address] [place] [address] Wilfredo Howell III, MD [address] [place] [address] UPDATE Social History Tobacco Use Types Packs/Day Years Used Date Smoking Tobacco: Former Cigarettes Smokeless Tobacco: Never Alcohol Use Standard Drinks/Week Comments Not Currently 0 (1 standard drink = 0.6 oz pur e alcohol) [facility] Utilities Answer Date Recorded In the past 12 months has [employer], gas, oil, or water [employer] threatened to shut off services in your [...] previously had praluent prescribed through a prior clearance rep and is wondering if Dr. Howell would [...] st Contact Info) Description 03/14/2024 2:00 PM FUR BLOWING MACHINE ATTENDANT [facility]ointment [facility]Ortho Spine [address] [place] [address]. [place] [address] Brandon Kessler MD [address] [place] [address] [phone] CONSULT 03/20/2024 11:15 AM FUR BLOWING MACHINE ATTENDANT Appointment Rheumatology at [facility] [place] [address] [address] [address] [place], [place] [address] Desilet, Freeman W, DO [address] [place] [address] 03/05/2025 11:30 AM FUR BLOWING MACHINE ATTENDANT Appointment [facility] [address] Electrophysiology [address] [place] [phone] documented as of this encounter Visit Diagnoses Not on filedocumented in this encounter Care Teams Reweaver Relationship Specialty Start Date End Date Dalton Esqueda MD [address] [place] [address] PCP - General Family Practice 06/23/23 documented as of this encounter
--- OUTSIDE RECORDS SUMMARY | 2024-03-13 09:41 | XMS_ITS | Encounter Summary ---
Author Organization [employer] Address [address] [place] [address] Care Team Providers Care Therapeutic Support Staff Name Role Phone Dalton Esqueda MD Primary Care Provider [phone] Encounter Details Date Type Department Care Team (Late st Contact Info) Description 12/15/2023 1:20 PM CDT Lab Visit [facility] [address] [place] [address] Pre-op exam Social History Tobacco Use Types Packs/Day Years Used Date Smoking Tobacco: Former Cigarettes Smokeless Tobacco: Never Alcohol Use Standard Drinks/Week Comments Not Currently 0 (1 standard drink = 0.6 oz pur e alcohol) [facility] Utilities Answer Date Recorded In the past 12 months has [facility] [employer], gas, oil, or water [employer] threatened to shut off services in your [...] st Contact Info) Description 03/14/2024 2:00 PM 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 Neurosurgery/Ortho Spine [address] [facility] [place] [address] Brandon Kessler MD [address] [place] [id number] CONSULT 03/20/2024 11:15 AM SHOELACE TIPPING MACHINE OPERATOR Appointment Rheumatology at [facility] [place] [address] [address] [address] [place] [address] Freeman Lopez, DO [address] [place] [address] 03/05/2025 11:30 AM SHOELACE TIPPING MACHINE OPERATOR Appointment [facility] [address] Electrophysiology [address] [place] [address] documented as of this encounter Procedures Procedure Name Priority Date/Time Associated Diagnosis Comments BASIC METABOLIC PANEL Routine 12/15/2023 1:14 PM CDT Pre-op exam documented in this encounter Results * (ABNORMAL) Basic Metabolic Panel (12/15/2023 1:14 PM CDT) Sodium 137 136 - 145 mmol/L 12/15/2023 5:32 PM [facility] Potassium 5.1 3.5 - 5.1 mmol/L 12/15/2023 5:32 PM [facility] Chloride 103 98 - 109 mmol/L 12/15/2023 5:32 PM [facility] CO2 20 20 - 29 mmol/L 12/15/2023 5:32 PM [facility] Anion Gap 14 6 - 16 mmol/L 12/15/2023 5:32 PM [facility] Calcium 11.1(H) 8.4 - 10.4 mg/dL 12/15/2023 5:32 PM [facility] Comment:Low serum albumin ma y artificially lower total calcium, without impacting ionized calcium concentrations. If patient has or is at risk for hypoalbuminemia, consider ionized serum calcium to more accurately assess calcium status. BUN 57(H) 7 - 26 mg/dL 12/15/2023 5:32 PM [facility] Creatinine 1.09(H) 0.55 - 1.02 mg/dL 12/15/2023 5:32 PM [facility] Glucose 119(H) 70 - 100 mg/dL 12/15/2023 5:32 PM [facility] Comment:The given reference range is for the fasting state. Non-fasting reference range for glucose is 70 - 180 mg/dL. GFR, Estimated 55(L) >60 mL/min/1. 73m2 12/15/2023 5:32 PM [facility] Hours Fasting 0.0 8 - 12 Hours 12/15/2023 5:32 PM [facility] Comment:Patient has indicate d a non-fasting status. Blood Venipuncture / Unknown 12/15/2023 1:14 PM CDT 12/15/2023 1:40 PM CDT Narrative [facility] - 12/15/2023 5:32 PM CDT The National Kidney Disease Education Program suggests measuring Cystatin C in patients with eGFRcrea of 45 to 59 ml/min/1.73^2 who do not have other markers of kidney damage (i.e. elevated urine Albumin/Creatinine Ratio or a prior Cystatin C confirming the presence of chronic kidney disease). Rosa Elena Huynh PA-C LAB_1 [facility] [address] [place] [address], [facility] documented in this encounter Visit Diagnoses Diagnosis Pre-op exam Preoperative examination, unspecified documented in this encounter Care Teams Therapeutic Support Staff Relationship Specialty Start Date End Date Dalton Esqueda MD [address] [place] [address] PCP - General Family Practice 06/23/23 documented as of this encounter
== END 2024-03-13 09:38 | disposition home or self-care (01) ==
PROVIDERS: PCP Family Medicine; Visit Provider Family Medicine
DX: D64.9 Anemia, unspecified (principal)
CPT/HCPCS: 82607; 82728; 82747; 85018; 85025; 85045

== ENCOUNTER 2024-03-13 13:59 | Outpatient (CLI) | payer MEDICARE, BC, SELFPAY ==
[2024-03-13 14:31] LABS: Basophils Absolute Auto 0.03 K/uL (0.00-0.30); Basophils Percent Auto 0.4 % (0.0-3.0); Eosinophils Percent Auto 1.4 % (0.0-7.0); Hematocrit 30.1 % (33.0-51.0); Hemoglobin* 9.2 gm/dL (12.0-16.0); Immature Granulocytes Abs Auto 0.04 K/uL (0.00-0.30); Immature Granulocytes Pct Auto 0.6 %; Immature Reticulocyte Fraction 17.7 % (3.0-15.9); Mean Corpuscular HGB Conc 31 gm/dL (32-36); Mean Corpuscular Hemoglobin 29 pg (26-34); Mean Corpuscular Volume 96 fL (80-100); Monocytes Percent Auto 10.7 % (0.0-11.0); Neutrophils Absolute Auto 5.05 K/uL (1.7-7.0); Neutrophils Percent Auto 69.9 % (42.0-72.0); Platelet Count* 336 K/uL (140-440); RDW Coefficient of Variation % 15.3 % (11.5-15.5); Red Blood Count 3.13 m/uL (4.00-5.20); Reticulocyte Hemoglobin Equivi 32.1 pg (29.0-35.0); Reticulocyte Percent 4.1 % (0.5-2.0); Reticulocytes Absolute 0.13 # (0.03-0.08); White Blood Count* 7.22 K/uL (4.50-11.00)
[2024-03-13 14:40] LABS: Slide Review Reflex No
== END 2024-03-13 14:00 | disposition home or self-care (01) ==
LOC: LAB 14:05
PROVIDERS: PCP Family Medicine; Visit Provider Family Medicine
DX: D64.9 Anemia, unspecified (principal)
CPT/HCPCS: 36415; 85025; 85045

== ENCOUNTER 2024-03-26 09:24 | Outpatient (CLI) | payer MEDICARE, BC, SELFPAY ==
--- NOTE | 2024-03-26 10:33 | P.ANES_ITS ---
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
--- NOTE | 2024-03-26 10:40 | W.ANESCHARGE ---
Anesthesia Charges Start Date/Time Anesthesia Start Date: 03/26/24 Anesthesia Start Time: 10:08 Stop Date/Time Anesthesia Stop Date: 03/26/24 Anesthesia Stop Time: 10:31
--- NOTE | 2024-03-26 10:41 | W.ANESCHARGE ---
Anesthesia Charges Start Date/Time Anesthesia Start Date: 03/26/24 Anesthesia Start Time: 10:08 Stop Date/Time Anesthesia Stop Date: 03/26/24 Anesthesia Stop Time: 10:31 Summary Extremes of Age - Over 70 or under 1: MDA
== END 2024-03-26 09:25 | disposition home or self-care (01) ==
LOC: OP CLINIC 09:25
PROVIDERS: PCP Family Medicine; Visit Provider Surgery
DX: K25.3 Acute gastric ulcer without hemorrhage or perforation (principal); K44.9 Diaphragmatic hernia without obstruction or gangrene; B96.81 Helicobacter pylori [H. pylori] as the cause of diseases classified elsewhere; Z87.19 Personal history of other diseases of the digestive system; Z98.0 Intestinal bypass and anastomosis status
CPT/HCPCS: 00731; 43239; 88305; 88342; 99100; J2704

== ENCOUNTER 2024-09-11 13:16 | Outpatient (CLI) | payer MEDICARE, BC, SELFPAY ==
--- NOTE | 2024-09-11 13:20 | CRLHL7_ITS ---
For Patients: As a result of the Cures Act, medical imaging exams and procedure reports are released immediately into your electronic medical record. You may view this report before your referring provider. If you have questions, please contact your health care provider. BILATERAL DIGITAL SCREENING MAMMOGRAM WITH COMPUTER-AIDED DETECTION AND TOMOSYNTHESIS CLINICAL HISTORY: : Routine screening exam. COMPARISON: 08/30/2023, 08/17/2022, 02/20/2021 TECHNIQUE: Digital mammogram in CC and MLO projections including computer-aided detection (CAD). Tomosynthesis was used in this interpretation. BREAST COMPOSITION: There are scattered areas of fibroglandular density. FINDINGS: RIGHT Breast: No suspicious findings LEFT Breast: Focal asymmetric density upper outer quadrant 5 cm from the nipple. IMPRESSION: LEFT breast asymmetry/mass. RECOMMENDATIONS: Additional mammographic views of the LEFT breast including 3D spot compression CC/MLO. LEFT breast ultrasound may also be required. The [facility] will contact the patient. A lay language report of this examination will be provided to the patient. BI-RADS Category 0: Incomplete: Need Additional Imaging Evaluation Dictated by Dalton Trejo MD @ 09/12/2024 12:25:10 PM Dictated by: Dalton Trejo MD @ 09/12/2024 12:25:14 (Electronically Signed)
== END 2024-09-11 13:17 | disposition home or self-care (01) ==
LOC: MAMMO 13:17
PROVIDERS: PCP Family Medicine; Visit Provider Family Medicine
DX: Z12.31 Encounter for screening mammogram for malignant neoplasm of breast (principal); N63.20 Unspecified lump in the left breast, unspecified quadrant
CPT/HCPCS: 77063; 77067

== ENCOUNTER 2024-10-01 09:37 | Outpatient (CLI) | payer MEDICARE, BC, SELFPAY ==
--- NOTE | 2024-10-01 09:45 | CRLHL7_ITS ---
For Patients: As a result of the Cures Act, medical imaging exams and procedure reports are released immediately into your electronic medical record. You may view this report before your referring provider. If you have questions, please contact your health care provider. UNILATERAL LEFT DIGITAL DIAGNOSTIC MAMMOGRAM, 10/01/2024 LEFT BREAST ULTRASOUND, 10/01/2024 CLINICAL HISTORY: LEFT breast mass/asymmetry. COMPARISON: 09/11/2024, 08/30/2023, 08/17/2022. TECHNIQUE: Digital LEFT mammogram in two projections. Tomosynthesis was used in this interpretation. Real-time ultrasound imaging of LEFT breast with imaging documentation. Scanning was performed by both the technologist and the radiologist. BREAST COMPOSITION: There are scattered areas of fibroglandular density. FINDINGS: 3D spot compression CC/MLO LEFT breast mammogram images submitted. Decreased conspicuity of previously noted asymmetric density. No architectural distortion or suspicious calcifications. Targeted LEFT breast ultrasound performed at 2 o`clock 5 cm from the nipple. Normal fibroglandular tissue is present. No fibrocystic change or mass. IMPRESSION: No evidence of malignancy. No suspicious findings. RECOMMENDATIONS: Routine screening mammography. A lay language report of this examination will be provided to the patient. BI-RADS Category 2: Benign Dictated by Dalton Trejo MD @ 10/01/2024 12:18:47 PM/CRL:daina GUZMAN/Dictated by: Dalton Trejo MD @ 10/01/2024 12:18:00 PM (Electronically Signed)
--- NOTE | 2024-10-01 10:15 | CRLHL7_ITS ---
For Patients: As a result of the Century Cures Act, medical imaging exams and procedure reports are released immediately into your electronic medical record. You may view this report before your referring provider. If you have questions, please contact your health care provider. PLEASE SEE LEFT BREAST DIAGNOSTIC MAMMOGRAM PERFORMED SAME DAY. CRL:[email or web address] GUZMAN/Dictated by: Dalton Trejo MD @ 10/01/2024 12:18:00 PM (Electronically Signed)
== END 2024-10-01 09:38 | disposition home or self-care (01) ==
LOC: MAMMO 09:38
PROVIDERS: PCP Family Medicine; Visit Provider Family Medicine
DX: N63.20 Unspecified lump in the left breast, unspecified quadrant (principal); R92.8 Other abnormal and inconclusive findings on diagnostic imaging of breast
CPT/HCPCS: 76642; 77065; G0279

== ENCOUNTER 2025-01-28 09:45 | Outpatient (CLI) | payer MEDICARE, BC, SELFPAY | END 2025-01-28 09:46 | disposition home or self-care (01) | PROVIDERS: PCP Family Medicine; Visit Provider Family Medicine | DX: R53.83 Other fatigue (principal); E78.2 Mixed hyperlipidemia; I10 Essential (primary) hypertension | CPT/HCPCS: 80048; 80061; 85025 ==

== ENCOUNTER 2025-03-15 08:59 | Day surgery (SDC) | payer MEDICARE, BC, SELFPAY ==
[2025-03-15] VITALS (8 sets, daily range): BP systolic 162–193; BP diastolic 71–93; PULSE 64–69; RESP 12–16; TEMP 36.4–36.5; O2SAT 95–99; BMI 47.7
[2025-03-15] MEDS: BUPIVACAINE 0.5% 30 ML INJECTION (09:45)
[2025-03-15] MEDS: ETHYL CHLORIDE 1 APPLICATION 1 APPLIC TOPICAL (09:45)
--- NOTE | 2025-03-15 09:45 | W.PM.H&PU ---
History & Physical Update History & Physical Update H&P Reviewed and patient assessed: No changes noted
--- NOTE | 2025-03-15 09:45 | PM.ORPRC ---
Procedure Note Date of procedure: 03/15/25 Procedure: PREOPERATIVE DIAGNOSIS: 1. Left carpal tunnel syndrome POSTOPERATIVE DIAGNOSIS: 1. Left carpal tunnel syndrome PROCEDURE: 1. Left open carpal tunnel release SURGEON: Aguila Durham MD. RECORDER GRAVITY PROSPECTING: Eva Lay P.A.-C. An administrative office assistant was critical for this case to aid in patient positioning, tissue retraction, limb manipulation/positioning, and wound closure. ANESTHESIA: Local anesthetic ESTIMATED BLOOD LOSS: 0 mL TOURNIQUET: 9 min at 250 mmHg COMPLICATIONS: None INDICATIONS: The patient is a pleasant 69-year-old female with history of left hand numbness and tingling. Symptoms were not improving with conservative treatment, and patient elected to proceed with surgical intervention consisting of left carpal tunnel release. Prior to surgery, the risks and benefits of the procedure were discussed with patient, all questions were answered, and informed consent was obtained. DESCRIPTION OF PROCEDURE: Patient was seen preoperatively and operative site was marked. The subcutaneous tissues overlying the left carpal tunnel were injected with a combination of 0.5% bupivacaine and 1% lidocaine with epinephrine by the administrative office assistant. Patient was then brought to the operating room and placed in the supine position on the OR table. A tourniquet was placed on the patient's left arm, and left upper extremity was prepped and draped in usual sterile fashion. A surgical time-out was performed confirming patient name, procedure, and location. The operative extremity was then elevated and exsanguinated with an Esmarch, and the tourniquet was inflated to 225 mmHg. A skin incision measuring approximately 3-4 cm was made in line with the ring finger extending from the distal wrist flexion crease to Solis's cardinal line. Blunt dissection was used to dissect through subcutaneous tissues and palmar fascia. Transverse carpal ligament was identified and was sharply incised proximally with care taken to protect the underlying median nerve. The transverse carpal ligament was then sharply divided along its ulnar border using tenotomy scissors and a [place] blade with care taken to protect the underlying median nerve. Once the transverse carpal ligament was divided, the antebrachial fascia was released proximally. The wound was then irrigated with normal saline, and the tourniquet was released. Total tourniquet time was 9 minutes. Hemostasis was achieved with bipolar electrocautery. The skin incision was closed with 4-0 nylon horizontal mattress sutures, and a sterile dressing was applied by the administrative office assistant. Patient was then transferred to the recovery room in stable condition. POSTOPERATIVE PLAN: 1. Patient will be discharged to home day of surgery. 2. Ice and elevation as needed for pain and swelling. 3. Tylenol and/or ibuprofen as needed for pain. 4. They were given instructions for wound care and finger range of motion exercises. 5. Return to the clinic for follow-up evaluation in 10-14 days for wound check and suture removal.
[2025-03-15] MEDS: BACITRACIN OINTMENT BULK TUBE 1 APPLIC TOPICAL (10:10)
== END 2025-03-15 10:56 | disposition home or self-care (01) ==
LOC: OR 09:00
PROVIDERS: PCP Family Medicine; Visit Provider Orthopaedic Surgery
PROC: (CPT 64721; principal; 2025-03-15 10:15)
DX: G56.02 Carpal tunnel syndrome, left upper limb (principal)
CPT/HCPCS: 64721; J0665